=== PATIENT | female | born 1960 | race Caucasian/White ===

== ENCOUNTER → 2017-02-18 | Outpatient (CLI) | payer OTHER ==
[~2017-02-18] MED LIST: ACET325T38 PO; ALLP100T PO; ALPR.5T; ASP81CT; ASPI-999 PO; ATR20T PO; BACL10TA PO; CRS350T PO; CYCL10TA45; DESV100T PO; DESV50TA PO; DICY10CA26; DULO30CA; DULO60CA6 PO; HYDR-34 PO; HYDR-3720; HYDR1TAB PO; ISOS30TA74 PO; LD5PT TOP; LEVO500T69 PO; LOVASTATIN; METH500T35 PO; METO50TA7 PO; NAPR220T66 PO; NAPR220T76; NAPR220T76 PO; NF-ESOM40C; NF-ESOM40C PO; NITR0.4T SL; NITR0.4T39 SL; OMEP20TA7 PO; PIROXICAM; PRAV20TA3 PO; PRAV40TA2 PO; PREG100C PO; PREG75CA PO; QTP100T PO; QUET100T; QUET400T3 PO; TMZP15C; TRAM100T; TRM50T; TRM50T PO; [UNRECOGNIZED DRUG - REMARK]; lyrica; melatonin; tylenol #3
--- NOTE | 2017-02-18 18:37 | Diagnostic Imaging Report ---
EXAMINATION: Magnetic resonance imaging of the right knee without intravenous contrast. DATE: February 18, 2017. COMPARISON: Right knee radiographs December 08, 2013. MRI right knee January 29, 2011. INDICATION: 56-year-old female, injury two years ago with persistent right knee pain. TECHNIQUE: Multiplanar, multisequence non contrast enhanced MR imaging was accomplished. FINDINGS: MENISCI: There is an oblique undersurface tear involving the body and posterior horn of the medial meniscus. The medial meniscus on prior comparison MRI of January 29, 2011 did not meet specific MRI criteria for tear as it does currently. There is a longitudinal horizontal type tear involving the body and posterior horn of the lateral meniscus which is unchanged since comparison MRI. LIGAMENTS AND TENDONS: The anterior and posterior cruciate ligaments are intact. The medial collateral ligament is intact. The iliotibial band, mid third lateral capsular ligament, fibular collateral ligament, biceps femoris tendon and conjoined tendon are intact. The quadriceps tendon and patella ligament are intact. JOINT: The articular cartilage surfaces are intact. There is no knee joint effusion, prominent synovitis, or intra-articular body. BONE: There are patchy areas of T2 hyperintense signal in the marrow of the distal femoral metadiaphysis as well as the proximal tibial epiphysis and metaphysis. There is no identified fracture line. There are no pathognomonic signal changes of avascular necrosis. These foci of hyperintense marrow signal most likely relate to prominent areas of red marrow. BURSAE AND SOFT TISSUES: There is no De La Fuente's cyst. There is nonspecific prepatellar subcutaneous edema. The additional soft tissues are unremarkable. IMPRESSION: 1. Oblique undersurface tear involving the body and posterior horn of the medial meniscus. 2. Unchanged longitudinal horizontal tear involving the body and posterior horn of the lateral meniscus. 3. Intact anterior and posterior cruciate ligaments. 4. Areas of patchy hyperintense marrow signal most likely relates to prominent red marrow. No acute fracture, bone contusion, or evidence of osteonecrosis. 5. Intact articular cartilage. No knee joint effusion, prominent synovitis, or intra-articular body. Dictated by: Dictated on workstation # [id number]
== END ==
LOC: RAD 17:29
PROVIDERS: ATTEND Nurse Practitioner
DX: S83.281A Other tear of lateral meniscus, current injury, right knee, initial encounter (principal); S83.241A Other tear of medial meniscus, current injury, right knee, initial encounter; X58.XXXA Exposure to other specified factors, initial encounter; Y99.8 Other external cause status
CPT/HCPCS: 73721

== ENCOUNTER → 2017-10-07 | Outpatient (CLI) | payer OTHER ==
--- NOTE | 2017-10-07 10:00 | Diagnostic Imaging Report ---
Three views of the lumbar spine. INDICATION: Back pain. History of old injury. Comparison lumbar spine radiograph on 07/07/2012. FINDINGS: There is a 30% compression fracture of L1 vertebral body of indeterminate age. The alignment of the posterior spinal line is satisfactory. There is moderate disc height loss at L5-S1 level with sclerotic degenerative changes. Mild osteophytes formation at the anterior aspect of the T12/L1 and L3/L4 levels seen. No posterior osteophytes are identified. Mild degenerative changes of SI joints seen. Nonspecific sclerotic lesions in the right iliac bone similar to 2012 are probably related to bony islands. IMPRESSION: Age-indeterminate 30% compression fracture of L1 vertebral body, new from 2012 exam. If the patient had recent injury or is tender at the upper lumbar spine area, then further evaluation with MRI of the lumbar spine to verify if this is acute is recommended. Please fax report to ordering physician and document. Dictated by: Dictated on workstation # [id number]
== END ==
LOC: RAD 08:48
PROVIDERS: ATTEND Surgery
DX: M54.9 Dorsalgia, unspecified (principal); Z87.828 Personal history of other (healed) physical injury and trauma
CPT/HCPCS: 72100

== ENCOUNTER → 2018-09-07 | Outpatient (CLI) | payer MEDICAID ==
--- NOTE | 2018-09-07 13:56 | Diagnostic Imaging Report ---
PROCEDURE: CT neck soft tissue without contrast. TECHNIQUE: Multiple contiguous axial images were obtained through the neck without the use of intravenous contrast. INDICATION: Left vocal cord mass. COMPARISON: None. FINDINGS: There is asymmetric fullness of the left true vocal cord in comparison to the right. This extends inferiorly along the anterior margin of the left vocal cord without definitely crossing the midline. No erosive changes are seen in the arytenoids or cricoid. No cervical lymphadenopathy or other mass is identified on this noncontrast exam. No fluid collections are seen in the neck. The floor of the mouth, tongue base and epiglottis are unremarkable. No lesions are seen in the thyroid or major salivary glands. Mild scarring in the lung apices. No acute findings in the cervical spine. The skull base and visualized paranasal sinuses and mastoids are unremarkable. IMPRESSION: Asymmetric fullness of the left true vocal cord extending inferiorly along the cord anteriorly suspicious for a mass on this noncontrast exam. This does not appear to cross the midline. No cervical lymphadenopathy or other masses are identified. Dictated by: Dictated on workstation # [id number]
== END ==
LOC: RAD 12:50
PROVIDERS: ATTEND Otolaryngology Otolaryngology/Facial Plastic Surgery
DX: J38.3 Other diseases of vocal cords (principal)
CPT/HCPCS: 70490

== ENCOUNTER 2018-11-11 05:41 | Outpatient (CLI) | payer MEDICAID ==
[~2018-11-11] VITALS: Ht 170.2 cm; Wt 76.2 kg
[2018-11-11] MEDS ORDERED: GABA250S PO (13:38)
[2018-11-11] MEDS ORDERED: LEVO125T PO (13:38)
[2018-11-11] MEDS ORDERED: SERT50TA2 PO (13:38)
[2018-11-11] MEDS ORDERED: QUET300T2 PO (13:38)
[2018-11-11] MEDS ORDERED: QUET200T PO (13:38)
[2018-11-11] MEDS ORDERED: TRAM50TA2 PO (13:38)
[2018-11-11] MEDS ORDERED: CALC200T2 PO (13:38)
[2018-11-11] MEDS ORDERED: PRAV40TA2 PO (13:38)
== END 2018-11-11 13:47 | disposition home or self-care (01) ==
LOC: PREOP 05:41
PROVIDERS: ATTEND Surgery
DX: Z01.818 Encounter for other preprocedural examination (principal)

== ENCOUNTER 2018-11-13 11:24 | Day surgery (SDC) | payer MEDICAID ==
[~2018-11-13 11:24] MED LIST changes: +CALC200T2 PO; +GABA250S PO; +LEVO125T PO; +QUET200T PO; +QUET300T2 PO; +SERT50TA2 PO; +TRAM50TA2 PO
--- OUTSIDE RECORDS SUMMARY | 2018-11-13 11:29 | XMS REPORT | Encounter Summary ---
Author Author [facility] Organization [facility] Address Unknown Phone Unavailable Care Team Providers Care Missile And Missile Checkout Technician Name Role Phone Kelly Olivier RN Unavailable Unavailable Chris Ohara MD PCP Reason for Visit * Reason Comments Other Encounter Details Care Team Description Date Type Department Shreyas Snyder MD [address] [place] [address] Other 11/10/2018 Telephone [facility] - [facility] Level 3C [address] [place] [address] Social History Date Tobacco Use Types Packs/Day Years Used Current Every Day Smoker 0.5 Smokeless Tobacco: Never Used Alcohol Use Drinks/Week oz/Week Comments Yes rarely Sex Assigned at Date Recorded Not on file Industry Job Start Date Occupation Not on file Not on file Not on file Travel End Travel History Travel Start No recent travel history available. as of this encounter Functional Status Date of Assessment Functional Status Response 10/05/2018 Does the patient have a hearing impairment: Yes as of this encounter Miscellaneous Notes * Telephone Encounter - Faustina Watts, GUCCI - 11/11/2018 12:25 PM WEB CONTENT SPECIALIST Spoke with Dr. De La Fuente's office. Informed them that per Twyla leak needs to stop on its own. Plan to see pt back in one month with an esophagram. Faustina CONTENT SPECIALIST * Telephone Encounter - Una Saunders - 11/10/2018 1:[address] CONTENT SPECIAL[address]. De La Fuente's office calling with medical related questions: 1)Would Dr. Snyder like another swallow motions test for the patient? 2) Does the leak need to be stopped? CONTENT SPECIALIST in this encounter Plan of Treatment Not on fileas of this encounter Visit Diagnoses Not on filein this encounter
--- OUTSIDE RECORDS SUMMARY | 2018-11-13 11:29 | XMS REPORT | Encounter Summary ---
Author Author [facility] Organization [facility] Address Unknown Phone Unavailable Care Team Providers Care Analytics Senior Manager Name Role Phone Kelly Olivier RN Unavailable Unavailable Chris Ohara MD PCP Reason for Visit * Reason Comments Navigation Follow Up Encounter Details Care Team Description Date Type Department Shreyas Snyder MD [address] [place] [address] Navigation Follow Up 10/30/2018 Telephone [facility] [address] [address] Social History Date Tobacco Use Types Packs/Day [...] encounter Miscellaneous Notes * Telephone Encounter - Radha Avitia RN - 10/30/2018 3:38 PM CERTIFIED MASSAGE THERAPIST 10/29/18 Left message for du Membreno for rad/onc at [facility] in [place], [place] requesting a consult 10/30/18 Called [facility] to schedule rad/onc consult and NN gone for the day. Faxed records to her at [phone] This information was given to pt's significant other and caregiver, Ernie Gallegos per phone call. IFIED MASSAGE THERAPIST in this encounter Plan of Treatment Not on fileas of this encounter Visit Diagnoses Not on filein this encounter
--- OUTSIDE RECORDS SUMMARY | 2018-11-13 11:29 | XMS REPORT | Encounter Summary ---
Author Author [facility] Organization [facility] Address Unknown Phone Unavailable Care Team Providers Care Solder Technician Name Role Phone Kelly Olivier RN Unavailable Unavailable Chris Ohara MD PCP Encounter Details Care Team Description Date Type Department Kathy Kim, AUTOCLAVE OPERATOR-EXPORT FREIGHT CLERK [address] [place] [address] 10/22/2018 Orders Only [facility] - [facility]NT [facility] Level [address]C [address] [place] [address] Social History Date Tobacco Use [...] hearing impairment: Yes as of this encounter Plan of Treatment Not on fileas of this encounter Visit Diagnoses Not on filein this encounter
--- OUTSIDE RECORDS SUMMARY | 2018-11-13 11:29 | XMS REPORT | Encounter Summary ---
Author Author [facility] Organization [facility] Address Unknown Phone Unavailable Care Team Providers Care Radial Drill Operator For Plastic Name Role Phone Kelly Olivier RN Unavailable Unavailable Chris Ohara MD PCP Reason for Referral * Radiology Services (Routine) Referred By Contact Referred To Contact Status Reason Specialty Diagnoses / Procedures Twyla Quiles PA-C [address] [place] [address] [place] [address] No Auth Needed Radiology Diagnoses H/O laryngectomy Laryngeal cancer (HCC) P rocedures ESOPHAGRAM * Radiology Services (Routine) Referred By Contact Referred To Contact Status Reason Specialty Diagnoses / Procedures Twyla Quiles PA-C [address] [place] [address] [address] [phone] No Auth Needed Radiology Diagnoses H/O laryngectomy Laryngeal cancer (HCC) P rocedures ESOPHAGRAM Reason for Visit * Radiology Services (Routine) Referred By Contact Referred To Contact Status Reason Specialty Diagnoses / Procedures Twyla Quiles PA-C [address] [place] [address] [place] [address] No Auth Needed Radiology Diagnoses H/O laryngectomy Laryngeal cancer (HCC) P rocedures ESOPHAGRAM Encounter Details Care Team Description Date Type Department Twyla Quiles PA-C [address] [place] [address] [phone] 11/05/2018 Hospital [facility] Encounter Hospital Radiology [facility] [address] [place] [address] Social History Date Tobacco Use Types Packs/Day [...] hearing impairment: Yes as of this encounter Medications at Time of Discharge Start Date End Date Medication Sig Dispensed Refills 10/22/2018 acetaminophen (TYLENOL) 20.3 mL by 400 mL 0 160 mg/5 mL oral solution Per NG tube route every 4 hours as needed. 11/05/2018 antiseptic mucus solvent 6 mL by 120 Bottle 3 120 mL Tracheal Tube route four times daily. 10/22/2018 calcium citrate three tablets 74 tablet 0 (CALCITRATE) 950 mg tab by Per NG tube route twice daily. Please take the follow calcium taper 2 TAB PO BID x 1 week THEN 2 tab PO Qday x 1 week THEN OFF 10/22/2018 docusate (COLACE) 50 mg/5 10 mL by Per 500 mL 0 mL oral solution NG tube route twice daily. 11/05/[address] (CYMBALTA) Take one 30 capsule 5 60 mg capsule capsule by mouth daily. 10/23/2018 ergocalciferol (vitamin Take 6.25 mL 60 mL 1 D-2) (CALCIFEROL) 8,000 via feeding unit/mL oral solution tube three times weekly. 11/05/2018 gabapentin (NEURONTIN) 6 mL by Per 470 mL 12 250 mg/5 mL oral solution NG tube route every 8 hours. 11/05/2018 levothyroxine (SYNTHROID) Take one 30 tablet 3 125 mcg tablet tablet by Per NG tube route daily 30 minutes before breakfast. nitroglycerin (NITROSTAT) Place 0.4 mg 0 0.4 mg SL tablet under tongue every 5 minutes as needed. 10/22/2018 pravastatin (PRAVACHOL) Take one 90 capsule 3 40 mg tablet tablet via feeding tube daily. 10/22/2018 QUEtiapine (SEROQUEL) 200 Take one 0 mg tablet tablet via feeding tube at bedtime daily. Take with 300 mg for a total of 500 mg daily 10/22/2018 QUEtiapine (SEROQUEL) 300 Take one 0 mg tablet tablet via feeding tube at bedtime daily. Take with 200 mg tablet for a total of 500 mg daily 10/22/2018 sodium chloride (SEA Apply one 104 mL 0 MIST) 0.65 % nasal spray spray to two sprays to each nostril as directed every 2 hours. 11/05/2018 traMADol (ULTRAM) 50 mg one tablet by 60 tablet 0 tablet Per NG tube route every 12 hours. 10/22/2018 venlafaxine (EFFEXOR) Take one 60 tablet 1 37.5 mg tablet tablet by Per NG tube route twice daily with meals. Take with food. as of this encounter Plan of Treatment Not on fileas of this encounter Procedures Comments Procedure Name Priority Date/Time Associated Diagnosis ESOPHAGRAM Routine 11/05/2018 H/O laryngectomy 1:45 PM PROGRAM MANAGEMENT MANAGER Laryngeal cancer (HCC) in this encounter Results * ESOPHAGRAM (11/05/2018 1:45 PM PROGRAM MANAGEMENT MANAGER) Impressions Performed At Persistent small linear collection of contrast within the anterior neck [facility] consistent with a small residual leak following recent laryngectomy. By my electronic signature, I attest that I have personally reviewed the images for this examination and formulated the interpretations and opinions expressed in this report Finalized by Bradley Torres D.O. on 11/05/2018 2:31 PM. Dictated by Faustino Beal M.D. on 11/05/2018 1:44 PM. Narrative Performed At LIMITED ESOPHAGRAM [facility] CLINICAL HISTORY: 58-year-old female, leak check, status post total laryngectomy. TECHNIQUE: An explanation of the exam was provided to the patient and brief history was obtained. After obtaining a preliminary radiograph, the patient ingested Gastroview to distend the esophageal lumen. Single-contrast spot films of the esophagus were obtained and esophageal motility was evaluated fluoroscopically. The patient tolerated the procedure well and left the department in stable condition. TOTAL FLUOROSCOPY TIME: 120 seconds Comparison: Esophagram 10/21/2018 FINDINGS: The preliminary radiograph demonstrates a gastric tube with the tip overlying the gastric body. There are surgical clips overlying the lower neck. The swallowing mechanism is intact and esophageal motility is unremarkable. Surgical clips overlie the anterior neck. Persistence of the previously noted small linear anterior collection of contrast within the anterior neck cephalad to the tracheostomy, best demonstrated on series 5 image 3. Contrast flows from the esophagus into the stomach without obstruction. Procedure Note Interface, Radiant Results - 11/05/2018 2:35 PM PROGRAM MANAGEMENT MANAGER LIMITED ESOPHAGRAM CLINICAL HISTORY: 58-year-old female, leak check, status post total laryngectomy. TECHNIQUE: An explanation of the exam was provided to the patient and brief history was obtained. After obtaining a preliminary radiograph, the patient ingested Gastroview to distend the esophageal lumen. Single-contrast spot films of the esophagus were obtained and esophageal motility was evaluated fluoroscopically. The patient tolerated the procedure well and left the department in stable condition. TOTAL FLUOROSCOPY TIME: 120 seconds Comparison: Esophagram 10/21/2018 FINDINGS: The preliminary radiograph demonstrates a gastric tube with the tip overlying the gastric body. There are surgical clips overlying the lower neck. The swallowing mechanism is intact and esophageal motility is unremarkable. Surgical clips overlie the anterior neck. Persistence of the previously noted small linear anterior collection of contrast within the anterior neck cephalad to the tracheostomy, best demonstrated on series 5 image 3. Contrast flows from the esophagus into the stomach without obstruction. IMPRESSION Persistent small linear collection of contrast within the anterior neck consistent with a small residual leak following recent laryngectomy. By my electronic signature, I attest that I have personally reviewed the images for this examination and formulated the interpretations and opinions expressed in this report Finalized by Bradley Torres D.O. on 11/05/2018 2:31 PM. Dictated by Faustino Beal M.D. on 11/05/2018 1:44 PM. Performing Organization Address City/State/Zipcode Phone Number [facility] in this encounter Visit Diagnoses Diagnosis H/O laryngectomy Other postprocedural status Laryngeal cancer (HCC) Malignant neoplasm of larynx, unspecified site in this encounter Administered Medications Action Date Dose Rate Site Medication Order MAR Action 11/05/2018 2:00 PM PROGRAM MANAGEMENT MANAGER 100 mL iohexol (OMNIPAQUE-300) 300 mg/mL Given injection 100 mL 100 mL, Oral, ONCE, 1 dose, Alexandra 11/05/18 at 1400, NOTE: This is a HIGH ALERT Medication., in this encounter
--- OUTSIDE RECORDS SUMMARY | 2018-11-13 11:29 | XMS REPORT | Encounter Summary ---
Author Author [facility] Organization [facility] Address Unknown Phone Unavailable Care Team Providers Care Manager Home Improvement Name Role Phone Kelly Olivier RN Unavailable Unavailable Chris Ohara MD PCP Reason for Visit * Reason Comments Other Encounter Details Care Team Description Date Type Department Shreyas Snyder MD [address] [place] [address] Other 11/04/2018 Telephone [facility] - ENT [facility] Level [address]C [address] [place] [address] Social History Date Tobacco Use [...] Miscellaneous Notes * Telephone Encounter - Faustina Watts RN - 11/05/2018 1:50 PM CONCILIATOR Returned pt's call. NA. Pt to CB if assistance still needed. ILIATOR * Telephone Encounter - Belinda Weldon - 11/04/2018 9:01 AM CONCILIATOR Calling regarding PT pharmacy in [place] will not refill any of PT medications that she went home with after surgery , needs to see about refill from [facility]o appt 11/05/18 with blanca ILIATOR in this encounter Plan of Treatment Not on fileas of this encounter Visit Diagnoses Not on filein this encounter
--- OUTSIDE RECORDS SUMMARY | 2018-11-13 11:29 | XMS REPORT | Clinical Summary ---
Author Author [facility] Organization [facility] Address Unknown Phone Unavailable Care Team Providers Care Loan Expeditor Name Role Phone Kelly Olivier RN Unavailable Unavailable Chris Ohara MD PCP Source Comments Some departments are not documenting in the electronic medical record. If you do not see the information that you expected, contact Release of Information in the Health Information Management department at [phone] for further assistance in locating additional records.[facility] Allergies Comments Active Allergy Reactions Severity Noted Date Iodine NAUSEA AND 01/10/2011 VOMITING Liver ANAPHYLAXIS High 10/05/2018 Simvastatin HIVES 01/10/2011 Medications End Date Status Medication Sig Dispensed Refills Start Date Active nitroglycerin (NITROSTAT) Place 0.4 mg 0 0.4 mg SL tablet under tongue every 5 minutes as needed. Active acetaminophen (TYLENOL) 20.3 mL by 400 mL 0 160 mg/5 mL oral solution Per NG tube 8 route every 4 hours as needed. Active pravastatin (PRAVACHOL) Take one 90 capsule 3 40 mg tablet tablet via 8 feeding tube daily. Active QUEtiapine (SEROQUEL) 200 Take one 0 201 mg tablet tablet via 8 feeding tube at bedtime daily. Take with 300 mg for a total of 500 mg daily Active QUEtiapine (SEROQUEL) 300 Take one 0 201 mg tablet tablet via 8 feeding tube at bedtime daily. Take with 200 mg tablet for a total of 500 mg daily Active calcium citrate three tablets 74 tablet 0 (CALCITRATE) 950 mg tab by Per NG 8 tube route twice daily. Please take the follow calcium taper 2 TAB PO BID x 1 week THEN 2 tab PO Qday x 1 week THEN OFF Active venlafaxine (EFFEXOR) Take one 60 tablet 1 37.5 mg tablet tablet by Per 8 NG tube route twice daily with meals. Take with food. Active ergocalciferol (vitamin Take 6.25 mL 60 mL 1 D-2) (CALCIFEROL) 8,000 via feeding 8 unit/mL oral solution tube three times weekly. Active sodium chloride (SEA Apply one 104 mL 0 MIST) 0.65 % nasal spray spray to two 8 sprays to each nostril as directed every 2 hours. Active docusate (COLACE) 50 mg/5 10 mL by Per 500 mL 0 mL oral solution NG tube route 8 twice daily. Active duloxetine DR (CYMBALTA) Take one 30 capsule 5 60 mg capsule capsule by 9 mouth daily. Active traMADol (ULTRAM) 50 mg one tablet by 60 tablet 0 tablet Per NG tube 9 route every 12 hours. Active gabapentin (NEURONTIN) 6 mL by Per 470 mL 250 mg/5 mL oral solution NG tube route 9 every 8 hours. Active antiseptic mucus solvent 6 mL by 120 Bottle 3 120 mL Tracheal Tube 9 route four times daily. Active levothyroxine (SYNTHROID) Take one 30 tablet 3 125 mcg tablet tablet by Per 9 NG tube route daily 30 minutes before breakfast. 10/22/2018 Discontinued pravastatin (PRAVACHOL) Take 40 mg by 0 40 mg tablet mouth daily. 10/22/2018 Discontinued QUEtiapine (SEROQUEL) 200 Take 200 mg 0 mg tablet by mouth at bedtime daily. Take with 300 mg for a total of 500 mg daily 10/22/2018 Discontinued varenicline (CHANTIX Take 1 mg by 0 CONTINUING MONTH BOX) 1 mouth daily. mg tabletIndications: pt Take with 8 unsure the dosage oz of water and after a meal. 10/22/2018 Discontinued QUEtiapine (SEROQUEL) 300 Take 300 mg 0 mg tablet by mouth at bedtime daily. Take with 200 mg tablet for a total of 500 mg daily 10/22/2018 Discontinued ibuprofen (MOTRIN) 800 mg Take 1,600 mg 0 tablet by mouth every 12 hours as needed for Pain. Take with food. 10/22/2018 Discontinued desvenlafaxine succinate Take 75 mg by 0 25 mg Tb24 mouth daily. 11/05/2018 Discontinued levothyroxine (SYNTHROID) Take one 30 tablet 1 125 mcg tablet tablet by Per 8 NG tube route daily 30 minutes before breakfast. 11/05/2018 Discontinued gabapentin (NEURONTIN) 6 mL by Per 470 mL 12 250 mg/5 mL oral solution NG tube route 8 every 8 hours. 11/05/2018 Discontinued traMADol (ULTRAM) 50 mg Take one 40 tablet 0 tablet tablet to two 8 tablets by Per NG tube route every 4 hours as needed. 11/05/2018 Discontinued antiseptic mucus solvent 6 mL by 0 120 mL Tracheal Tube 8 route every 2 hours while awake. 11/05/2018 amoxicillin/K clavulanate Take 10.9 mL 300 mL 0 (AUGMENTIN) 400 mg/5 mL via feeding 8 oral suspension tube twice daily for 10 days. Take with food. Discard any remaining medication. Active Problems Problem Noted Date Larynx cancer 10/29/2018 S/P laryngectomy 10/29/2018 Hypocalcemia 10/19/2018 Anxiety 10/08/2018 Depression 10/08/2018 Tobacco abuse 10/06/2018 Asthma 10/06/2018 Dysphagia 10/06/2018 Mass of larynx 10/05/2018 Shortness of breath 10/05/2018 Pharyngeal dysphagia 10/05/2018 Laryngeal mass 10/05/2018 Encounters Care Team Description Date Type Specialty Pauline Pandey Procedure (Esophagram ) 11/12/2018 Telephone Otolaryngology Kalli Snyder MD Larynx cancer (HCC) (Primary Dx) 11/12/2018 Orders Only Otolaryngology Kalli Snyder MD Other 11/10/2018 Telephone Otolaryngology Twyla Quiles PA-C Larynx cancer (HCC) (Primary Dx); Tobacco abuse; S/P laryngectomy; Depression, unspecified depression type 11/05/2018 Office Visit Otolaryngology Twyla Quiles PA-C 11/05/2018 Hospital Radiology Encounter Kalli Snyder MD Other 11/04/2018 Telephone Otolaryngology Kalli Snyder MD Appointment 11/02/2018 Telephone Otolaryngology Kalli Snyder MD Navigation Follow Up 10/30/2018 Telephone Oncology Jacinto Theodore PA-C Larynx cancer (HCC) (Primary Dx); S/P laryngectomy 10/29/2018 Office Visit Otolaryngology Twyla Quiles PA-C H/O laryngectomy (Primary Dx); Laryngeal cancer (HCC) 10/22/2018 Orders Only Otolaryngology Kathy Kim, [employer] TR[employer]MER S/P laryngectomy (Primary Dx) 10/22/2018 Orders Only Otolaryngology Kathy Kim APRN-BUG TRIMMER 10/22/2018 Orders Only Otolaryngology Tiffanie Wall CRNA 10/19/2018 Anesthesia Event Mely Norris DDS EXTRACTION TEETH 2,3,4,5,6,8,9,10,11,12,13,14,15,18,19,20 ,21,22,23,,24,25,26,27,28,29,30,31, 10/19/2018 Surgery Mely Norris DDS 10/16/2018 Prep for Case Mely Norris DDS 10/16/2018 Prep for Case Oncology Mely Norris DDS 10/16/2018 Prep for Case Kalli Snyder MD PRIMARY LARYNGECTOMY TOTAL WITH RADICAL NECK DISSECTION [ 58720 (CPT)] 10/13/2018 Surgery Vinicius Lee MD 10/13/2018 Anesthesia Event Kayli Wyatt MD 10/07/2018 Prep for Case Kayli Wyatt MD 10/07/2018 Prep for Case Kalli Snyder MD TRACHEOSTOMY PLANNED AWAKE TRACHEOSTOMY 10/05/2018 Surgery Faustino Prince MD 10/05/2018 Anesthesia Event Kalli Snyder MD Laryngeal mass 10/05/2018 Hospital - Encounter 10/22/2018 Kalli Snyder MD Mass of larynx; Shortness of breath; Pharyngeal dysphagia 10/05/2018 Office Visit Otolaryngology Kalli Snyder MD Navigation Assessment 09/11/2018 Telephone Oncology 09/07/2018 Hospital Radiology Encounter from Last 3 Months Social History Date Tobacco Use Types Packs/Day Years Used Current Every Day Smoker 0.5 Smokeless Tobacco: Never Used Alcohol Use Drinks/Week oz/Week Comments Yes rarely Sex Assigned at Date Recorded Not on file Industry Job Start Date Occupation Not on file Not on file Not on file Travel End Travel History Travel Start No recent travel history available. Last Filed Vital Signs Time Taken Vital Sign Reading 11/05/2018 1:59 PM PATIENT SUPPORT PARTNER Blood Pressure 91/66 11/05/2018 1:59 PM PATIENT SUPPORT PARTNER Pulse 125 10/22/2018 5:50 AM PATIENT SUPPORT PARTNER Temperature 36.8 C (98.2 F) - Respiratory Rate - 10/22/2018 6:44 AM PATIENT SUPPORT PARTNER Oxygen Saturation 95% - Inhaled Oxygen - Concentration 11/05/2018 1:59 PM PATIENT SUPPORT PARTNER Weight 76.2 kg (168 lb) 11/05/2018 1:59 PM PATIENT SUPPORT PARTNER Height 170.2 cm (5' 7") 11/05/2018 1:59 PM PATIENT SUPPORT PARTNER Body Mass Index 26.31 Plan of Treatment Health Maintenance Due Date Last Done Comments HEPATITIS C SCREENING 1959 PHYSICAL (COMPREHENSIVE) 1966 EXAM HIV SCREENING 1974 DTAP/TDAP VACCINES (1 - 1977 Tdap) CERVICAL CANCER SCREENING 1989 BREAST CANCER SCREENING 1999 COLORECTAL CANCER 2009 SCREENING SHINGLES RECOMBINANT 2009 VACCINE (1 of 2) INFLUENZA VACCINE 05/27/2018 Procedures Comments Procedure Name Priority Date/Time Associated Diagnosis ESOPHAGRAM Routine 11/05/2018 H/O laryngectomy 1:45 PM PATIENT SUPPORT PARTNER Laryngeal cancer (HCC) CBC Routine 10/22/2018 5:40 AM PATIENT SUPPORT PARTNER IONIZED CALCIUM Routine 10/22/2018 5:40 AM PATIENT SUPPORT PARTNER CALCIUM Routine 10/22/2018 5:40 AM PATIENT SUPPORT PARTNER PARATHYROID HORMONE Routine 10/21/2018 10:22 AM PATIENT SUPPORT PARTNER IONIZED CALCIUM Routine 10/21/2018 10:22 AM PATIENT SUPPORT PARTNER PHOSPHORUS Routine 10/21/2018 10:22 AM PATIENT SUPPORT PARTNER MAGNESIUM Routine 10/21/2018 10:22 AM PATIENT SUPPORT PARTNER BASIC METABOLIC PANEL Routine 10/21/2018 10:22 AM PATIENT SUPPORT PARTNER ESOPHAGRAM Routine 10/21/2018 9:21 AM PATIENT SUPPORT PARTNER IONIZED CALCIUM STAT 10/20/2018 8:23 AM PATIENT SUPPORT PARTNER CONSULT IV THERAPY TEAM Routine 10/20/2018 7:38 AM PATIENT SUPPORT PARTNER PHOSPHORUS Routine 10/20/2018 6:16 AM PATIENT SUPPORT PARTNER MAGNESIUM Routine 10/20/2018 6:16 AM PATIENT SUPPORT PARTNER BASIC METABOLIC PANEL Routine 10/20/2018 6:16 AM PATIENT SUPPORT PARTNER CBC Routine 10/20/2018 6:16 AM PATIENT SUPPORT PARTNER CONSULT IV THERAPY TEAM Routine 10/19/2018 10:17 AM PATIENT SUPPORT PARTNER EXTRACTION TOOTH 10/19/2018 10:08 AM PATIENT SUPPORT PARTNER PHOSPHORUS Routine 10/19/2018 6:18 AM PATIENT SUPPORT PARTNER MAGNESIUM Routine 10/19/2018 6:18 AM PATIENT SUPPORT PARTNER BASIC METABOLIC PANEL Routine 10/19/2018 6:18 AM PATIENT SUPPORT PARTNER CBC Routine 10/19/2018 6:18 AM PATIENT SUPPORT PARTNER IONIZED CALCIUM STAT 10/19/2018 6:18 AM PATIENT SUPPORT PARTNER IONIZED CALCIUM STAT 10/18/2018 6:00 PM PATIENT SUPPORT PARTNER CALCIUM STAT 10/18/2018 6:00 PM PATIENT SUPPORT PARTNER IONIZED CALCIUM STAT 10/18/2018 6:10 AM PATIENT SUPPORT PARTNER PHOSPHORUS Routine 10/18/2018 6:10 AM PATIENT SUPPORT PARTNER MAGNESIUM Routine 10/18/2018 6:10 AM PATIENT SUPPORT PARTNER BASIC METABOLIC PANEL Routine 10/18/2018 6:10 AM PATIENT SUPPORT PARTNER CBC Routine 10/18/2018 6:10 AM PATIENT SUPPORT PARTNER IONIZED CALCIUM STAT 10/17/2018 10:20 PM PATIENT SUPPORT PARTNER CALCIUM STAT 10/17/2018 10:20 PM PATIENT SUPPORT PARTNER IONIZED CALCIUM STAT 10/17/2018 6:00 PM PATIENT SUPPORT PARTNER CALCIUM STAT 10/17/2018 6:00 PM PATIENT SUPPORT PARTNER PARATHYROID HORMONE Add on 10/17/2018 6:01 AM PATIENT SUPPORT PARTNER ALBUMIN Routine 10/17/2018 6:01 AM PATIENT SUPPORT PARTNER PHOSPHORUS Routine 10/17/2018 6:01 AM PATIENT SUPPORT PARTNER MAGNESIUM Routine 10/17/2018 6:01 AM PATIENT SUPPORT PARTNER BASIC METABOLIC PANEL Routine 10/17/2018 6:01 AM PATIENT SUPPORT PARTNER CBC Routine 10/17/2018 6:01 AM PATIENT SUPPORT PARTNER CALCIUM STAT 10/17/2018 6:00 AM PATIENT SUPPORT PARTNER IONIZED CALCIUM STAT 10/17/2018 5:59 AM PATIENT SUPPORT PARTNER IONIZED CALCIUM STAT 10/16/2018 10:00 PM PATIENT SUPPORT PARTNER CALCIUM STAT 10/16/2018 10:00 PM PATIENT SUPPORT PARTNER CALCIUM STAT 10/16/2018 2:18 PM PATIENT SUPPORT PARTNER IONIZED CALCIUM STAT 10/16/2018 2:18 PM PATIENT SUPPORT PARTNER PANOREX EXAM Routine 10/16/2018 11:25 AM PATIENT SUPPORT PARTNER CONSULT IV THERAPY TEAM Routine 10/16/2018 8:56 AM PATIENT SUPPORT PARTNER IONIZED CALCIUM Add on 10/16/2018 6:07 AM PATIENT SUPPORT PARTNER PHOSPHORUS Routine 10/16/2018 6:07 AM PATIENT SUPPORT PARTNER MAGNESIUM Routine 10/16/2018 6:07 AM PATIENT SUPPORT PARTNER BASIC METABOLIC PANEL Routine 10/16/2018 6:07 AM PATIENT SUPPORT PARTNER CBC Routine 10/16/2018 6:07 AM PATIENT SUPPORT PARTNER CALCIUM STAT 10/15/2018 8:24 PM PATIENT SUPPORT PARTNER IONIZED CALCIUM STAT 10/15/2018 8:24 PM PATIENT SUPPORT PARTNER 25-OH VITAMIN D (D2 + D3) Specimen 10/15/2018 in Lab 8:24 PM PATIENT SUPPORT PARTNER CONSULT IV THERAPY TEAM Routine 10/15/2018 7:35 PM PATIENT SUPPORT PARTNER IONIZED CALCIUM STAT 10/15/2018 11:08 AM PATIENT SUPPORT PARTNER CALCIUM Routine 10/15/2018 11:08 AM PATIENT SUPPORT PARTNER PARATHYROID HORMONE Add on 10/15/2018 3:15 AM PATIENT SUPPORT PARTNER IONIZED CALCIUM Routine 10/15/2018 3:15 AM PATIENT SUPPORT PARTNER PHOSPHORUS Routine 10/15/2018 3:15 AM PATIENT SUPPORT PARTNER MAGNESIUM Routine 10/15/2018 3:15 AM PATIENT SUPPORT PARTNER BASIC METABOLIC PANEL Routine 10/15/2018 3:15 AM PATIENT SUPPORT PARTNER CBC Routine 10/15/2018 3:15 AM PATIENT SUPPORT PARTNER CALCIUM Specimen 10/14/2018 in Lab 10:53 PM PATIENT SUPPORT PARTNER IONIZED CALCIUM 10/14/2018 10:45 PM PATIENT SUPPORT PARTNER CONSULT IV THERAPY TEAM Routine 10/14/2018 10:32 PM PATIENT SUPPORT PARTNER CALCIUM Routine 10/14/2018 6:15 PM PATIENT SUPPORT PARTNER IONIZED CALCIUM STAT 10/14/2018 6:15 PM PATIENT SUPPORT PARTNER CALCIUM Routine 10/14/2018 3:38 PM PATIENT SUPPORT PARTNER CALCIUM STAT 10/14/2018 10:30 AM PATIENT SUPPORT PARTNER IONIZED CALCIUM STAT 10/14/2018 10:30 AM PATIENT SUPPORT PARTNER IONIZED CALCIUM STAT 10/14/2018 7:20 AM PATIENT SUPPORT PARTNER CONSULT IV THERAPY TEAM Routine 10/14/2018 6:34 AM PATIENT SUPPORT PARTNER PHOSPHORUS Routine 10/14/2018 5:47 AM PATIENT SUPPORT PARTNER MAGNESIUM Routine 10/14/2018 5:47 AM PATIENT SUPPORT PARTNER BASIC METABOLIC PANEL Routine 10/14/2018 5:47 AM PATIENT SUPPORT PARTNER CBC Routine 10/14/2018 5:47 AM PATIENT SUPPORT PARTNER CALCIUM Routine 10/13/2018 11:30 PM PATIENT SUPPORT PARTNER IONIZED CALCIUM STAT 10/13/2018 11:30 PM PATIENT SUPPORT PARTNER CONSULT IV THERAPY TEAM Routine 10/13/2018 10:57 PM PATIENT SUPPORT PARTNER ABDOMEN AP ONLY Routine 10/13/2018 3:15 PM PATIENT SUPPORT PARTNER PARATHYROID HORMONE STAT 10/13/2018 3:00 PM PATIENT SUPPORT PARTNER CALCIUM Routine 10/13/2018 3:00 PM PATIENT SUPPORT PARTNER IONIZED CALCIUM STAT 10/13/2018 3:00 PM PATIENT SUPPORT PARTNER SURGICAL PATHOLOGY 10/13/2018 12:12 PM PATIENT SUPPORT PARTNER BLOOD TYPE CONFIRMATION - STAT 10/13/2018 ORDER ONLY IF REQUESTED 8:35 AM PATIENT SUPPORT PARTNER BY LAB TYPE & CROSSMATCH STAT 10/13/2018 8:30 AM PATIENT SUPPORT PARTNER TISSUE TRANSFER MUSCLE/ 10/13/2018 Laryngeal mass MYOCUTANEOUS/ 8:00 AM PATIENT SUPPORT PARTNER Mass of larynx FASCIOCUTANEOUS FLAP WITH VASCULAR PEDICLE - HEAD/ NECK DIRECT LARYNGOSCOPY 10/13/2018 Laryngeal mass DIAGNOSTIC 8:00 AM PATIENT SUPPORT PARTNER Mass of larynx THYROIDECTOMY TOTAL 10/13/2018 Laryngeal mass 8:00 AM PATIENT SUPPORT PARTNER Mass of larynx CERVICAL LYMPHADENECTOMY 10/13/2018 Laryngeal mass 8:00 AM PATIENT SUPPORT PARTNER Mass of larynx LARYNGECTOMY TOTAL 10/13/2018 Laryngeal mass 8:00 AM PATIENT SUPPORT PARTNER Mass of larynx CONSULT IV THERAPY TEAM Routine 10/10/2018 8:14 AM PATIENT SUPPORT PARTNER 2-D + DOPPLER Routine 10/08/2018 ECHOCARDIOGRAM 11:14 AM PATIENT SUPPORT PARTNER ECG 12-LEAD Routine 10/07/2018 4:29 PM PATIENT SUPPORT PARTNER SWALLOW MOTION SERIES Routine 10/07/2018 8:48 AM PATIENT SUPPORT PARTNER NM PET SCAN TORSO Routine 10/06/2018 (SKULL-THIGHS) 1:[address] NECK W/CONTRAST Routine 10/06/2018 10:[address] CHEST W CONTRAST Routine 10/06/2018 10:14 AM PATIENT SUPPORT PARTNER POC GLUCOSE 10/06/2018 9:43 AM PATIENT SUPPORT PARTNER PHOSPHORUS Add on 10/06/2018 8:45 AM PATIENT SUPPORT PARTNER MAGNESIUM Add on 10/06/2018 8:45 AM PATIENT SUPPORT PARTNER BASIC METABOLIC PANEL Add on 10/06/2018 8:45 AM PATIENT SUPPORT PARTNER THYROID STIMULATING Routine 10/06/2018 HORMONE-TSH 8:45 AM PATIENT SUPPORT PARTNER PREALBUMIN Routine 10/06/2018 8:45 AM PATIENT SUPPORT PARTNER ALBUMIN Routine 10/06/2018 8:45 AM PATIENT SUPPORT PARTNER BASIC METABOLIC PANEL STAT 10/05/2018 4:41 PM PATIENT SUPPORT PARTNER CBC STAT 10/05/2018 4:41 PM PATIENT SUPPORT PARTNER SURGICAL PATHOLOGY 10/05/2018 4:02 PM PATIENT SUPPORT PARTNER DIRECT MICROLARYNGOSCOPY 10/05/2018 Laryngeal mass WITH BIOPSY 3:50 PM PATIENT SUPPORT PARTNER TRACHEOSTOMY PLANNED 10/05/2018 Laryngeal mass 3:50 PM PATIENT SUPPORT PARTNER CONSULT IV THERAPY TEAM Routine 10/05/2018 2:08 PM PATIENT SUPPORT PARTNER TELEMETRY STRIPS-SCAN 10/05/2018 12:00 AM PATIENT SUPPORT PARTNER EXERCISE OXIMETRY-SCAN 10/05/2018 12:00 AM PATIENT SUPPORT PARTNER ECG-SCAN 10/05/2018 12:[address] NECK EXTERNAL IMAGING Routine 09/07/2018 Diagnosis unknown 12:00 AM PATIENT SUPPORT PARTNER from Last 3 Months Results * ESOPHAGRAM (11/05/2018 1:45 PM PATIENT SUPPORT PARTNER) Only the most recent of 2 results within the time period is included. Impressions Performed At Persistent small linear collection [...] Interface, Radiant Results - 11/05/2018 2:35 PM PATIENT SUPPORT PARTNER LIMITED ESOPHAGRAM CLINICAL HISTORY: 58-year-old female, leak [...] on 11/05/2018 1:44 PM. Performing Organization Address [facility] Phone Number RAD RESULTS * CBC (10/22/2018 5:40 AM PATIENT SUPPORT PARTNER) Only the most recent of 9 results within the time period is included. White Blood Cells 5.7 4.5 - 11.0 K/UL MAIN LAB RBC 3.28 (L) 4.0 - 5.0 M/UL MAIN LAB Hemoglobin 10.6 (L) 12.0 - 15.0 GM/DL MAIN LAB Hematocrit 31.0 (L) 36 - 45 % MAIN LAB MCV 94.6 80 - 100 FL MAIN LAB MCH 32.2 26 - 34 PG MAIN LAB MCHC 34.1 32.0 - 36.0 G/DL MAIN LAB RDW 12.9 11 - 15 % MAIN LAB Platelet Count 450 (H) 150 - 400 K/UL MAIN LAB MPV 7.6 7 - 11 FL MAIN LAB Specimen Blood Performing Organization Address [facility] Phone Number MAIN LAB [address] [place] [address] * IONIZED CALCIUM (10/22/2018 5:40 AM PATIENT SUPPORT PARTNER) Only the most recent of 21 results within the time period is included. Ionized Calcium 1.13 1.0 - 1.3 MMOL/L [facility] Specimen Blood Performing Organization Address [facility] Phone Number MAIN LAB [address] [place] [address] * CALCIUM (10/22/2018 5:40 AM PATIENT SUPPORT PARTNER) Only the most recent of 15 results within the time period is included. Calcium 9.1 8.5 - 10.6 MG/DL MAIN LAB Specimen Blood Performing Organization Address [facility] Phone Number MAIN LAB [address] [place] [address] * PARATHYROID HORMONE (10/21/2018 10:22 AM PATIENT SUPPORT PARTNER) Only the most recent of 4 results within the time period is included. PTH Hormone 11.3 10 - 65 PG/ML [facility] Specimen Blood Performing Organization Address City/[facility] Phone Number [facility] [address] [place] [address] * PHOSPHORUS (10/21/2018 10:22 AM PATIENT SUPPORT PARTNER) Only the most recent of 9 results within the time period is included. Phosphorus 5.4 (H)Comment: NOTE NEW 2.0 - 4.5 MG/DL [facility] MAIN [facility] REFERENCE RANGES Specimen Blood Performing Organization Address [facility] Phone Number [facility] [address] [place] [address] * MAGNESIUM (10/21/2018 10:22 AM PATIENT SUPPORT PARTNER) Only the most recent of 9 results within the time period is included. Magnesium 2.1 1.6 - 2.6 mg/dL [facility] Specimen Blood Performing Organization Address [facility] Phone Number [facility] [address] [place] [address] * BASIC METABOLIC PANEL (10/21/2018 10:22 AM PATIENT SUPPORT PARTNER) Only the most recent of 10 results within the time period is included. Sodium 138 137 - 147 MMOL/L [facility] Potassium 3.7 3.5 - 5.1 MMOL/L [facility] Chloride 98 98 - 110 MMOL/L [facility] CO2 29 21 - 30 MMOL/L [facility] Anion Gap 11 3 - 12 [facility] Glucose 142 (H) 70 - 100 MG/DL [facility] Blood Urea Nitrogen 32 (H) 7 - 25 MG/DL [facility] Creatinine 0.93 0.4 - 1.00 MG/DL [facility] Calcium 9.3 8.5 - 10.6 MG/DL [facility] eGFR Non >60 >60 mL/min [facility] Comment: The eGFR is not validated for use in drug dosing adjustments.Continue to use estimated creatinine clearance per dosing reference text.Please contact the Clinical Pharmacist for questions. eGFR >60 >60 mL/min [facility] Comment: The eGFR is not validated for use in drug dosing adjustments.Continue to use estimated creatinine clearance per dosing reference text.Please contact the Clinical Pharmacist for questions. Specimen Blood Performing Organization Address [facility] Phone Number [facility] [address] [place] [address] * ALBUMIN (10/17/2018 6:01 AM PATIENT SUPPORT PARTNER) Only the most recent of 2 results within the time period is included. Albumin 3.6 3.5 - 5.0 G/DL MAIN LAB Specimen Blood Performing Organization Address City/State/Zipcode Phone Number MAIN LAB [address] [place] [address] * PANOREX EXAM (10/16/2018 11:25 AM PATIENT SUPPORT PARTNER) Impressions Performed At Findings/Impression: [facility] RAD RESULTS 1.There are multitude of operative clips overlying the soft tissues along the right and left side of the angle the mandible. 2.No visible fractures or osseous lesions. No periapical lytic lesions. Diminished detail of the periapical area overlying the mental portion the mandible and central midline of the maxilla due to overlying artifact. If concern for active pathology in those areas then apical bitewing x-rays may be beneficial. 3.No visible dental caries. 4.A drain overlies the right and a drain overlies the left lateral aspect of the mandible extending over the bilateral maxillary sinuses. Finalized by Dav Adams M.D. on 10/16/2018 11:46 AM. Dictated by Dav Adams M.D. on 10/16/2018 11:43 AM. Narrative Performed At PANOREX EXAM [facility] RAD RESULTS Clinical Indication: pre-radiation evaluation. Comparison: None Procedure Note Interface, Radiant Results - 10/16/2018 11:49 AM PATIENT SUPPORT PARTNER PANOREX EXAM Clinical Indication: pre-radiation evaluation. Comparison: None IMPRESSION Findings/Impression: 1. There are multitude of operative clips overlying the soft tissues along the right and left side of the angle the mandible. 2. No visible fractures or osseous lesions. No periapical lytic lesions. Diminished detail of the periapical area overlying the mental portion the mandible and central midline of the maxilla due to overlying artifact. If concern for active pathology in those areas then apical bitewing x-rays may be beneficial. 3. No visible dental caries. 4. A drain overlies the right and a drain overlies the left lateral aspect of the mandible extending over the bilateral maxillary sinuses. Finalized by Dav Adams M.D. on 10/16/2018 11:46 AM. Dictated by Dav Adams M.D. on 10/16/2018 11:43 AM. Performing Organization Address [facility] Phone Number [facility] RAD RESULTS * 25-OH VITAMIN D (D2 + D3) (10/15/2018 8:24 PM PATIENT SUPPORT PARTNER) Vitamin D(25-OH)Total 9.1 (L) 30 - 80 NG/ML MAIN LAB Specimen Blood Performing Organization Address [facility] Phone Number MAIN LAB [address] [place] [address] * ABDOMEN AP ONLY (10/13/2018 3:15 PM PATIENT SUPPORT PARTNER) Impressions Performed At NG tube with tip overlying the GE junction. Advancement is recommended for [facility] RAD RESULTS optimal positioning. Approved by Faustino Beal M.D. on 10/13/2018 4:51 PM By my electronic signature, I attest that I have personally reviewed the images for this examination and formulated the interpretations and opinions expressed in this report Finalized by Zacarias Lock M.D. on 10/13/2018 5:22 PM. Dictated by Faustino Beal M.D. on 10/13/2018 4:35 PM. Narrative Performed At ABDOMEN AP ONLY [facility] RAD RESULTS Clinical Indication: Female, 58 years old. Check NG tube Comparison: PET scan 10/06/2018 Findings: An NG tube is in place with tip overlying the GE junction. The lung bases are clear. The bowel gas pattern is nonobstructive. Procedure Note Interface, Radiant Results - 10/13/2018 5:25 PM PATIENT SUPPORT PARTNER ABDOMEN AP ONLY Clinical Indication: Female, 58 years old. Check NG tube Comparison: PET scan 10/06/2018 Findings: An NG tube is in place with tip overlying the GE junction. The lung bases are clear. The bowel gas pattern is nonobstructive. IMPRESSION NG tube with tip overlying the GE junction. Advancement is recommended for optimal positioning. Approved by Faustino Beal M.D. on 10/13/2018 4:51 PM By my electronic signature, I attest that I have personally reviewed the images for this examination and formulated the interpretations and opinions expressed in this report Finalized by Zacarias Lock M.D. on 10/13/2018 5:22 PM. Dictated by Faustino Beal M.D. on 10/13/2018 4:35 PM. Performing Organization Address [facility] Phone Number [facility] RES[facility] * SURGICAL PATHOLOGY (10/13/2018 12:12 PM PATIENT SUPPORT PARTNER) Only the most recent of 2 results within the time period is included. PATHOLOGY REPORT [facility] [email or web address] Department of Pathology and Laboratory Medicine [address] [place] [id number] Surgical Pathology Office:[phone] :[phone] SURGICAL PATHOLOGY REPORT NAME: JACKI MADSEN SURG PATH #: [id number] MR #: [id number] SPECIMEN CLASS: [facility] BILLING #: [id number] ALT ID #:LOCATION: DISCHARGED DATE OF PROCEDURE: 10/13/2018 AGE:58 SEX: F DATE RECEIVED: 10/13/2018 : 1960TIME RECEIVED:12:12 PHYSICIAN: KALLI SNYDER DATE OF REPORT: 10/22/2018 COPY TO:DATE OF PRINTIN10/22/2018 ############################## ############################## ############ Final Diagnosis: A. Lymph nodes (14), "right neck dissection", dissection: Negative for malignancy (0/14) See comment. B. Lymph nodes (20), "left neck dissection", dissection: Negative for malignancy (0/20) See comment. C. Larynx & thyroid, "larynx and total thyroid", total laryngectomy: Larynx: Squamous cell carcinoma, moderately differentiated and keratinizing Thyroid: Negative for malignancy See comment. D. Mucosa, "right hypopharynx", biopsy: Negative for malignancy E. Mucosa, "left hypopharynx", biopsy: Negative for malignancy F. Mucosa, "base of tongue MM", biopsy: Negative for malignancy G. Mucosa, "post cricoid", biopsy: Negative for malignancy Comment: LARYNX (SUPRAGLOTTIS, GLOTTIS, SUBGLOTTIS): Excisional Biopsy, Resection CAP Version: Larynx 4.0.0.0 Procedure: Total laryngectomy Neck (lymph node) dissection (specify): Other (specify): Total thyroidectomy Tumor Site: Larynx, glottis True vocal cord Transglottic Extension: Present Tumor Laterality: Left predominantly but extends to right Tumor Focality: Unifocal Tumor Size: Greatest dimension (centimeters): 1.7 cm Additional dimensions (centimeters): 1.6 x 0.9 cm Histologic Type: Squamous Cell Carcinoma and Variants (select all that apply): Squamous cell carcinoma, conventional (keratinizing) Histologic Grade: G2:Moderately differentiated Tumor Extension (other structures/spaces involved) Specify: Into paraglottic space Margins (select all that apply) Margins on the main composite resection specimen Uninvolved by invasive tumor Distance from closest margin (millimeters): 16 mm Specify location of closest margin, per orientation, if possible: Left hypopharynx True (final) margins, as submitted separately for frozen section: Negative Lymphovascular Invasion: Not identified Perineural Invasion: Not identified Regional Lymph Nodes Number of Lymph Nodes Involved: 0 Number of Lymph Nodes Examined: 34 Pathologic Stage Classification (pTNM, AJCC 8th Edition) Note: Reporting of pT, pN, and (when applicable) pM categories is based on information available to the pathologist at the time the report is issued. TNM Descriptors pT3 N0 M(N/A) For All Carcinomas Primary Tumor (pT): For the Glottis pT3:Tumor limited to the larynx with vocal cord fixation and/or invasion of paraglottic space and/or inner cortex of the thyroid cartilage Regional Lymph Node (pN): pN0:No regional lymph node metastasis Distant Metastasis (pM) (required only if confirmed pathologically in this case): Not applicable Additional Pathologic Findings (select all that apply): None identified Ancillary Studies: Not applicable The pathologic stage assigned here should be regarded as provisional, as it reflects only current pathologic data and does not incorporate full knowledge of the patient's clinical status and/or prior pathology. Attestation: By this signature, I attest that I have personally formulated the final interpretation expressed in this report and that the above diagnosis is based upon my examination of the slides and/or other material indicated in this report. +++ +++ suleman/10/14/2018 ############################## ############################## ############ Material Received: A: right neck dissection B: left neck dissection C: larynx and total thyroid D: right hypopharynx E: left hypopharynx F: base of tongue mm G: post cricoid History: 58-year-old female with a history of laryngeal mass, mass of larynx Gross Description: A. Received in formalin labeled with the patient's name and "right neck dissection" is a 6.5 x 5.4 x 1.2 cm aggregate of yellow-henson tissue palpated to reveal multiple possible lymph nodes ranging in size from 0.5 x 0.5 x 0.3 cm up to 3.0 x 1.3 x 1.1 cm. The specimen is submitted entirely follows: A1 Five possible lymph nodes, submitted whole. A2 Four possible lymph nodes, submitted whole. A3 Four possible lymph nodes, submitted whole. A4 One possible lymph node, trisected. A5-A6 One possible lymph node, serially sectioned. A7 One possible lymph node, serially sectioned. A8-A9 Adipose tissue and possible lymph nodes. ([facility]) B. Received in formalin labeled with the patient's name and "left neck dissection" is a 6.1 x 4.7 x 1.5 by cm aggregate of yellow-henson tissue palpated to reveal multiple possible lymph nodes, ranging in size from 0.3 x 0.3 x 0.3 cm up to 3.3 x 1.7 x 1.2 cm. The specimen is submitted entirely as follows: B1 Five possible lymph nodes, submitted whole. B2 Four possible lymph nodes, submitted whole. B3 Four possible lymph nodes, submitted whole. B4 Two possible lymph nodes, submitted whole. B5 Two possible lymph nodes, submitted whole. B6 Two possible lymph nodes, bisected (one possible lymph node differentially inked black). B7 One possible lymph node, serially sectioned. B8-B9 One possible lymph node, serially sectioned. B10-B11 Fibroadipose tissue and possible lymph nodes. ([facility]) C. Fixative: Fresh Labeled: "Larynx and total thyroid" Specimen received: Total laryngectomy and thyroidectomy Measurement: 9.2 x 5.9 x 4.6 cm Specimen includes: Hyoid bone-6.3 x 0.6 x 0.4 cm, epiglottis to 3rd tracheal ring 9.1 cm Specimen received: Intact Tumor measurement: 1.7 x 1.6 cm Tumor centered on: Left true vocal cords Tumor involves: anterior commissure, right/left true vocal cord, right/left ventricle, right/left paraglottic space wire tip exiting off. 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 Tumor does not involve: [vallecula/base of tongue, epiglottis, pre-epiglottic space, right/left false vocal fold, right/left ventricle, right/left aryepiglottic folds, right/left pyriform sinus, right/left hypopharyngeal wall, hyoid bone, trachea, thyroid cartilage, cricoid cartilage, anterior neck soft tissues, thyroid gland] Tumor from distal tracheal margin: 5.2 cm Tumor from vallecula/base of tongue margin: 2.2 cm Tumor from left pyriform sinus/hypopharynx margin: 1.6 cm Tumor from right pyriform sinus/hypopharynx margin: 1.9 cm Tumor from anterior soft tissue margin: 1.9 cm Tracheal cartilage: Calcified Tumor invasion: Invading to the thyroid cartilage Tumor depth of invasion: 0.7 cm Stoma: Yes Skin attached: 2.9 x 2.2 Lymph nodes: No. Thyroid: Yes consisting of right lobe (4.3 x 2.6 x 1.1 cm), isthmus (2.2 x 1.4 x 0.6 cm), and left lobe (4.9 x 2.4 x 0.9 cm) The anterior soft tissue is inked black, the left lateral soft tissue is inked blue, and the right lateral soft tissue is inked green. The false vocal cord is inked purple. Tissue submitted to Biospecimen Repository Core Facility: No Or Manager sections of the specimen are submitted as follows: N0Vjgbbxlj margin. C2 Right aryepiglottic fold & right piriform sinus (with inked pyriform sinus margin). C3Left aryepiglottic fold & left piriform sinus (with inked pyriform sinus margin). S0Utkcciejoe, inked vallecular/base of tongue margin. C5 Post cricoid mucosal margin. H6Xaolg true vocal cord/ventricle/false vocal cord with paraglottic space. C7Left true vocal cord/ventricle/false vocal cord with paraglottic space. K2Zstwiaev commissure. L6Ijdhxnpivr and pre-epiglottic space. S59Mwfrw to right/left paraglottic space. T35Svqlv to thyroid cartilage (at deepest invasion). G67Zsenl to nearest anterior soft tissue margin. R57Lffofof of posterior cricoid cartilage with posterior cricoid area. S28Ybrqthd of hyoid bone. B47Jjxvgijfvjyqjm section of skin at tracheostomy site. M00Bliarfexwxsosv sections from left thyroid. X39Ksnlrrqjdvhlur sections from right thyroid. ([facility]) D. Received fresh, labeled with patient's name and "right hypopharynx" is a 6.9 x 0.4 x 0.3 cm white-henson tissue fragment. The specimen is bisected and is submitted entirely for frozen consultation with the remnant placed in cassette D1FS for permanent diagnosis. ([facility]) E. Received fresh, labeled with patient's name and "left hypopharynx" is a 7.5 x 0.4 x 0.3 cm white-henson tissue fragment. The specimen is trisected and is submitted entirely for frozen consultation with the remnant placed in cassette E1FS for permanent diagnosis. ([facility]) F. Received fresh, labeled with patient's name and "base of tongue MM" is a 1.3 x 0.3 x 0.3 cm white-henson tissue fragment. The specimen is submitted entirely for frozen consultation with the remnant placed in cassette F1FS for permanent diagnosis. ([facility]) G. Received fresh, labeled with patient's name and "post cricoid" is a 1.4 x 0.3 x 0.3 cm white-henson tissue fragment. The specimen is submitted entirely for frozen consultation with the remnant placed in cassette G1FS for permanent diagnosis. ([facility]) [facility]/10/13/2018 Intraoperative Consultation: D1FS, mucosa, "right hypopharynx", biopsy: Negative for malignancy E1FS, mucosa, "left hypopharynx", biopsy: Negative for malignancy F1FS, mucosa, "base of tongue MM", biopsy: Negative for malignancy G1FS, mucosa, "post cricoid", biopsy: Negative for malignancy Frozen section performed at the [facility], [facility], [address] [place] [id number]. Jasmina Rubi MD Performing Organization Address City/State/Zipcode Phone Number [facility] [address] [place] [address] * BLOOD TYPE CONFIRMATION - ORDER ONLY IF REQUESTED BY LAB (10/13/2018 8:35 AM PATIENT SUPPORT PARTNER) ABO/RH(D) A POS MAIN LAB Specimen Blood Performing Organization Address [facility] Phone Number [facility] [address] [place] [address] * TYPE & CROSSMATCH (10/13/2018 8:30 AM PATIENT SUPPORT PARTNER) Units Ordered 2 MAIN LAB Crossmatch Expires 10/16/2018 MAIN LAB Record Check 2ND TYPE REQUIRED MAIN LAB ABO/RH(D) A POS MAIN LAB Antibody Screen NEG MAIN LAB Electronic Crossmatch YES MAIN LAB Specimen Blood Performing Organization Address City/[facility] Phone Number [facility] [address] [place] [address] * 2-D + DOPPLER ECHOCARDIOGRAM (10/08/2018 11:14 AM PATIENT SUPPORT PARTNER) BSA 1.9 m2 OTHER OUTSIDE LAB LVIDD 3.3 3.8 - 5.2 cm OTHER OUTSIDE LAB IVS 0.9 0.6 - 0.9 cm OTHER OUTSIDE LAB PW 0.8 0.6 - 0.9 cm OTHER OUTSIDE LAB LVIDS 1.5 2.2 - 3.5 cm OTHER OUTSIDE LAB FS 54.55 28 - 44 % OTHER OUTSIDE LAB EF 92.73 % OTHER OUTSIDE LAB LA volume 26.0 22 - 52 mL OTHER OUTSIDE LAB Sinus 0.1 2.7 - 3.3 cm OTHER OUTSIDE LAB LV mass 74.70 66 - 150 g OTHER OUTSIDE LAB LA size 3.0 2.7 - 3.8 cm OTHER OUTSIDE LAB RWT 0.48 <=0.42 OTHER OUTSIDE LAB AV peak velocity 1.4 m/s OTHER OUTSIDE LAB E/A ratio 0.71 OTHER OUTSIDE LAB TDI e' 0.080 m/s OTHER OUTSIDE LAB TV rest pulmonary artery 22 mmHg OTHER OUTSIDE LAB pressure E/E' ratio 6.25 OTHER OUTSIDE LAB Right Ventricular Basal 2.6 2.5 - 4.1 cm OTHER OUTSIDE LAB Diameter Right Ventricular Mid 1.3 1.9 - 3.5 cm OTHER OUTSIDE LAB Diameter Right Atrial Area 10.0 <18 cm2 OTHER OUTSIDE LAB Right Heart Systolic TDI 0.100 m/s OTHER OUTSIDE LAB S' MV Peak E Stephen PW 0.500 m/s OTHER OUTSIDE LAB MV Peak A Stephen 0.700 m/s OTHER OUTSIDE LAB Left Atrium Index 13.68 16 - 34 OTHER OUTSIDE LAB Cardiology Ultrasound Siemens [id number] OTHER OUTSIDE LAB Machine Left Ventricle Mass Index 39.32 44 - 88 g/m2 OTHER OUTSIDE LAB ECHO EF 65 % OTHER OUTSIDE LAB Narrative Performed At OTHER OUTSIDE LAB 1. Normal left ventricular function with no wall motion abnormalities. Estimated EF of 65%. 2. Normal left ventricular diastolic function. Mild left ventricular concentric remodeling. 3. Normal right ventricular size and function (TAPSE=1.8cm). 4. No significant valvular abnormalities. 5. No pericardial effusion. 6. Estimated PASP 22 mmHg. There are no prior studies for comparison. Performing Organization Address City/State/Zipcode Phone Number OTHER OUTSIDE LAB * SWALLOW MOTION SERIES (10/07/2018 8:48 AM PATIENT SUPPORT PARTNER) Impressions Performed At 1. Laryngeal penetration with thin consistency barium. No aspiration events. [facility] 2. Please see separately dictated report from the Department of Speech Pathology for further description. By my electronic signature, I attest that I have personally reviewed the images for this examination and formulated the interpretations and opinions expressed in this report Finalized by SYED CASILLAS M.D. on 10/07/2018 11:24 AM. Dictated by Derian Gar M.D. on 10/07/2018 9:07 AM. Narrative Performed At SWALLOW MOTION SERIES [facility] RES[facility] CLINICAL HISTORY: Female, 58 years old; pharyngeal dysphagia, laryngeal mass, tracheostomy TECHNIQUE: The procedure was performed in conjunction with members of the department of speech pathology. Video fluoroscopy was performed during swallowing of various consistencies of barium. The patient tolerated the procedure well and left the department in stable condition. TOTAL FLUOROSCOPY TIME: 96 seconds FINDINGS: Tracheostomy tube in place. Subcutaneous emphysema is noted throughout the cervical soft tissues. Laryngeal penetration with thin consistency barium. No aspiration events. No laryngeal penetration or aspiration with additional tested consistencies of barium. Procedure Note Interface, Radiant Results - 10/07/2018 11:27 AM PATIENT SUPPORT PARTNER SWALLOW MOTION SERIES CLINICAL HISTORY: Female, 58 years old; pharyngeal dysphagia, laryngeal mass, tracheostomy TECHNIQUE: The procedure was performed in conjunction with members of the department of speech pathology. Video fluoroscopy was performed during swallowing of various consistencies of barium. The patient tolerated the procedure well and left the department in stable condition. TOTAL FLUOROSCOPY TIME: 96 seconds FINDINGS: Tracheostomy tube in place. Subcutaneous emphysema is noted throughout the cervical soft tissues. Laryngeal penetration with thin consistency barium. No aspiration events. No laryngeal penetration or aspiration with additional tested consistencies of barium. IMPRESSION 1. Laryngeal penetration with thin consistency barium. No aspiration events. 2. Please see separately dictated report from the Department of Speech Pathology for further description. By my electronic signature, I attest that I have personally reviewed the images for this examination and formulated the interpretations and opinions expressed in this report Finalized by SYED CASILLAS M.D. on 10/07/2018 11:24 AM. Dictated by Derian Gar M.D. on 10/07/2018 9:07 AM. Performing Organization Address City/State/Zipcode Phone Number [facility] RESULTS * NM PET SCAN TORSO (SKULL-THIGHS) (10/06/2018 1:21 PM PATIENT SUPPORT PARTNER) Impressions Performed At 1.Hypermetabolic left glottic mass, most compatible with a primary neoplasm. [facility] 2.No hypermetabolic regional nadeen or distant metastases. 3.Prior tracheostomy with mildly increased FDG uptake about the tracheostomy tube, likely postoperative in nature. Extensive pneumomediastinum and subcutaneous emphysema extending into the lower neck, likely postoperative. 4.Bibasilar atelectasis and/or pneumonitis. Approved by Rosalino Baxter M.D. on 10/06/2018 3:10 PM By my electronic signature, I attest that I have personally reviewed the images for this examination and formulated the interpretations and opinions expressed in this report Finalized by Zacarias Lock M.D. on 10/06/2018 5:04 PM. Dictated by Rosalino Baxter M.D. on 10/06/2018 1:48 PM. Narrative Performed At PET/CT NECK, CHEST, ABDOMEN AND PELVIS [facility]ULTS RADIOPHARMACEUTICAL:17.5 mCi F-18 Fluorodeoxyglucose (FDG) IV. TECHNIQUE:Beginning approximately 60 minutes after tracer administration, routine whole body PET/CT imaging was performed from the level of the base of the skull to the upper thighs.PET images were reviewed in standard orthogonal projections.Low dose non-contrast CT imaging was performed for attenuation correction and localization purposes. BLOOD GLUCOSE LEVEL AT THE TIME OF RADIOPHARMACEUTICAL ADMINISTRATION:83 mg/dl CLINICAL HISTORY:58-year-old female, laryngeal mass, status post tracheostomy and biopsy COMPARISON: CT neck and chest from earlier the same day FINDINGS: Mean blood pool SUV 2.2, maximum 2.9. Mean hepatic SUV 2.7, maximum 4.2. Head/Neck: Redemonstration of the mass involving the left glottic larynx which demonstrates increased FDG uptake with a maximum SUV of 14.0 (index 221). Prior tracheostomy with soft tissue thickening and stranding about the tracheostomy tube with mild FDG uptake, likely postoperative in nature. No hypermetabolic cervical lymphadenopathy. Chest: No suspicious hypermetabolic lesions are identified within the chest. Atelectasis and/or pneumonitis in the lung bases with low level FDG uptake with a maximum SUV of 3.1 in the right lung base (index 424). Small pulmonary nodules in the right lung are too small to characterize by PET. Abdomen/Pelvis: No suspicious hypermetabolic lesions are seen within the abdomen or pelvis. Physiological activity is noted within the kidneys and bladder Osseous Structures: No suspicious hypermetabolic osseous lesions are seen. Additional significant low dose CT findings: Unchanged pneumomediastinum and extensive subcutaneous emphysema extending into the neck. Cholelithiasis. Mild calcified atherosclerotic plaque of the abdominal aorta. Contrast opacifies the urinary bladder. The uncorrected PET images demonstrate no additional abnormality. Procedure Note Interface, Radiant Results - 10/06/2018 5:08 PM PATIENT SUPPORT PARTNER PET/CT NECK, CHEST, ABDOMEN AND PELVIS RADIOPHARMACEUTICAL: 17.5 mCi F-18 Fluorodeoxyglucose (FDG) IV. TECHNIQUE: Beginning approximately 60 minutes after tracer administration, routine whole body PET/CT imaging was performed from the level of the base of the skull to the upper thighs. PET images were reviewed in standard orthogonal projections. Low dose non-contrast CT imaging was performed for attenuation correction and localization purposes. BLOOD GLUCOSE LEVEL AT THE TIME OF RADIOPHARMACEUTICAL ADMINISTRATION: 83 mg/dl CLINICAL HISTORY: 58-year-old female, laryngeal mass, status post tracheostomy and biopsy COMPARISON: CT neck and chest from earlier the same day FINDINGS: Mean blood pool SUV 2.2, maximum 2.9. Mean hepatic SUV 2.7, maximum 4.2. Head/Neck: Redemonstration of the mass involving the left glottic larynx which demonstrates increased FDG uptake with a maximum SUV of 14.0 (index 221). Prior tracheostomy with soft tissue thickening and stranding about the tracheostomy tube with mild FDG uptake, likely postoperative in nature. No hypermetabolic cervical lymphadenopathy. Chest: No suspicious hypermetabolic lesions are identified within the chest. Atelectasis and/or pneumonitis in the lung bases with low level FDG uptake with a maximum SUV of 3.1 in the right lung base (index 424). Small pulmonary nodules in the right lung are too small to characterize by PET. Abdomen/Pelvis: No suspicious hypermetabolic lesions are seen within the abdomen or pelvis. Physiological activity is noted within the kidneys and bladder Osseous Structures: No suspicious hypermetabolic osseous lesions are seen. Additional significant low dose CT findings: Unchanged pneumomediastinum and extensive subcutaneous emphysema extending into the neck. Cholelithiasis. Mild calcified atherosclerotic plaque of the abdominal aorta. Contrast opacifies the urinary bladder. The uncorrected PET images demonstrate no additional abnormality. IMPRESSION 1. Hypermetabolic left glottic mass, most compatible with a primary neoplasm. 2. No hypermetabolic regional nadeen or distant metastases. 3. Prior tracheostomy with mildly increased FDG uptake about the tracheostomy tube, likely postoperative in nature. Extensive pneumomediastinum and subcutaneous emphysema extending into the lower neck, likely postoperative. 4. Bibasilar atelectasis and/or pneumonitis. Approved by Rosalino Baxter M.D. on 10/06/2018 3:10 PM By my electronic signature, I attest that I have personally reviewed the images for this examination and formulated the interpretations and opinions expressed in this report Finalized by Zacarias Lock M.D. on 10/06/2018 5:04 PM. Dictated by Rosalino Baxter M.D. on 10/06/2018 1:48 PM. Performing Organization Address City/State/Zipcode Phone Number [facility] RES[facility] * CT CHEST W CONTRAST (10/06/2018 10:14 AM PATIENT SUPPORT PARTNER) Impressions Performed At 1. Subcutaneous air and pneumomediastinum centered along the upper mediastinum [facility] RESULTS extending into the neck may be postoperative in nature. 2. There are a few ill-defined groundglass nodules in the right upper lobe which may be infectious or inflammatory in nature. Attention on 6 month follow-up CT or per clinical protocol to reassess and to ensure resolution. 3. Cholelithiasis. 4. Hypoattenuation at the left ventricular apex myocardium could reflect sequela myocardial infarction or potentially ischemia. Artifact may appear similar. Correlate with troponin evaluation and patient symptoms. #Follow Finalized by Jose Rocha M.D. on 10/06/2018 10:53 AM. Dictated by Jose Rocha M.D. on 10/06/2018 10:42 AM. Narrative Performed At CT CHEST W CONTRAST [facility] RES[facility] INDICATION:Laryngeal mass Comparison: None. TECHNIQUE: Following the uneventful administration of intravenous contrast, axial CT sections were obtained through the lungs and upper abdomen. Coronal and sagittal multiplanar reconstructions were also obtained. FINDINGS: Life support devices: Tracheostomy tube terminates in expected position. Lungs and Airways: Paraseptal emphysema. Bandlike subsegmental atelectasis at both lung bases. No consolidation. There are a few scattered groundglass nodules. For example, 6 mm right upper lobe groundglass nodule image 18 series 301 and 5 mm right upper lobe groundglass nodule image 22. Calcified granulomas. Pleura: The pleural spaces are normal. Heart and Mediastinum: The thyroid gland is of normal size and attenuation. No axillary or supraclavicular lymphadenopathy. No mediastinal, hilar or retrocrural lymphadenopathy. Heart size is normal. Hypoattenuation in the left ventricular apical myocardium as seen on image 38 of series 301. Aorta is calcified, indicating atherosclerosis. Pneumomediastinum. Abdomen: Cholelithiasis. Bones and Soft Tissues: Subcutaneous air in the anterior chest wall extending into the neck. No suspicious lytic or blastic osseous lesions. Procedure Note Interface, Radiant Results - 10/06/2018 10:56 AM PATIENT SUPPORT PARTNER CT CHEST W CONTRAST INDICATION: Laryngeal mass Comparison: None. TECHNIQUE: Following the uneventful administration of intravenous contrast, axial CT sections were obtained through the lungs and upper abdomen. Coronal and sagittal multiplanar reconstructions were also obtained. FINDINGS: Life support devices: Tracheostomy tube terminates in expected position. Lungs and Airways: Paraseptal emphysema. Bandlike subsegmental atelectasis at both lung bases. No consolidation. There are a few scattered groundglass nodules. For example, 6 mm right upper lobe groundglass nodule image 18 series 301 and 5 mm right upper lobe groundglass nodule image 22. Calcified granulomas. Pleura: The pleural spaces are normal. Heart and Mediastinum: The thyroid gland is of normal size and attenuation. No axillary or supraclavicular lymphadenopathy. No mediastinal, hilar or retrocrural lymphadenopathy. Heart size is normal. Hypoattenuation in the left ventricular apical myocardium as seen on image 38 of series 301. Aorta is calcified, indicating atherosclerosis. Pneumomediastinum. Abdomen: Cholelithiasis. Bones and Soft Tissues: Subcutaneous air in the anterior chest wall extending into the neck. No suspicious lytic or blastic osseous lesions. IMPRESSION 1. Subcutaneous air and pneumomediastinum centered along the upper mediastinum extending into the neck may be postoperative in nature. 2. There are a few ill-defined groundglass nodules in the right upper lobe which may be infectious or inflammatory in nature. Attention on 6 month follow- up CT or per clinical protocol to reassess and to ensure resolution. 3. Cholelithiasis. 4. Hypoattenuation at the left ventricular apex myocardium could reflect sequela myocardial infarction or potentially ischemia. Artifact may appear similar. Correlate with troponin evaluation and patient symptoms. #Follow Finalized by Jose Rocha M.D. on 10/06/2018 10:53 AM. Dictated by Jose Rocha M.D. on 10/06/2018 10:42 AM. Performing Organization Address City/State/Zipcode Phone Number [facility] RESULTS * CT NECK W/CONTRAST (10/06/2018 10:14 AM PATIENT SUPPORT PARTNER) Impressions Performed At 1. Interval tracheostomy and biopsy of a left glottic mass. Irregular enhancing [facility] RES[facility] ulcerated left glottic mass measuring up to 2.1 cm. Primarily left supraglottic extension into the left paraglottic fat with uplifting of the left false cord. No discrete cartilage invasion or subglottic extension is identified. 2. No cervical adenopathy. Finalized by Dilan Morrissey M.D. on 10/06/2018 10:58 AM. Dictated by Dilan Morrissey M.D. on 10/06/2018 10:29 AM. Narrative Performed At CT Neck with Contrast [facility] Clinical Indication: Female, 58 years old. Laryngeal mass status post gland awake tracheostomy and biopsy Technique: Multiple contiguous axial images were obtained through the neck following the administration of Omnipaque 350 IV contrast material. Post processing coronal and sagittal reconstruction images were made from the axial images. Comparison: Neck CT 09/07/2018; same-day chest CT Findings: Brain and Orbits: Normal. Sinuses and Mastoids: Normal. Suprahyoid Neck: Normal oral cavity, oropharynx, parapharyngeal space, and retropharyngeal space. Infrahyoid Neck: Interval tracheostomy, with tracheostomy tube seated within the superior aspect of the trachea. Irregular ulcerated mass involving left glottic larynx is redemonstrated with associated findings related to interval biopsy. The irregular area of enhancement measures 1.7 x 0.7 x 2.1 cm (series 301 image 47; coronal image 44). Irregular area of enhancement extends superiorly in the left paraglottic fat with effacement of the left laryngeal ventricle and up lifting of the left false cord. The epiglottis is thin at its suprahyoid portion with linear mucosal enhancement seen at the base and petiole. The aryepiglottic folds appear normal. Preepiglottic fat is grossly preserved. No discrete nodular tissue is seen extending in the subglottic larynx which retains normal thin mucosal enhancement. Cricoid and thyroid cartilages are preserved. There is pleural sclerosis and demineralization of both arytenoid cartilages without discrete enhancing soft tissue invasion noted. Mucosal surfaces of the hypopharynx appear normal. The piriform sinuses are largely effaced. Lymph Nodes: There is subcutaneous emphysema throughout the superficial and deep cervical soft tissues, extending inferiorly into the mediastinum and upper anterior chest wall related to tracheostomy placement. Gas and edema obscures soft tissue planes in the neck, largely in the low central compartment and the suprahyoid neck. No enlarged cervical adenopathy is identified. Parotid and Submandibular Glands: Normal. Thyroid: Normal. Vasculature: Two-vessel arch branching pattern. Mild calcified plaque at the right carotid bifurcation. The cervical vasculature is otherwise patent. Osseous Structures: Normal. Thoracic inlet: Mild emphysema and pleural and parenchymal scarring are seen in the lung apices. Please see same-day chest CT for further description. Procedure Note Interface, Radiant Results - 10/06/2018 11:01 AM PATIENT SUPPORT PARTNER CT Neck with Contrast Clinical Indication: Female, 58 years old. Laryngeal mass status post gland awake tracheostomy and biopsy Technique: Multiple contiguous axial images were obtained through the neck following the administration of Omnipaque 350 IV contrast material. Post processing coronal and sagittal reconstruction images were made from the axial images. Comparison: Neck CT 09/07/2018; same-day chest CT Findings: Brain and Orbits: Normal. Sinuses and Mastoids: Normal. Suprahyoid Neck: Normal oral cavity, oropharynx, parapharyngeal space, and retropharyngeal space. Infrahyoid Neck: Interval tracheostomy, with tracheostomy tube seated within the superior aspect of the trachea. Irregular ulcerated mass involving left glottic larynx is redemonstrated with associated findings related to interval biopsy. The irregular area of enhancement measures 1.7 x 0.7 x 2.1 cm (series 301 image 47; coronal image 44). Irregular area of enhancement extends superiorly in the left paraglottic fat with effacement of the left laryngeal ventricle and up lifting of the left false cord. The epiglottis is thin at its suprahyoid portion with linear mucosal enhancement seen at the base and petiole. The aryepiglottic folds appear normal. Preepiglottic fat is grossly preserved. No discrete nodular tissue is seen extending in the subglottic larynx which retains normal thin mucosal enhancement. Cricoid and thyroid cartilages are preserved. There is pleural sclerosis and demineralization of both arytenoid cartilages without discrete enhancing soft tissue invasion noted. Mucosal surfaces of the hypopharynx appear normal. The piriform sinuses are largely effaced. Lymph Nodes: There is subcutaneous emphysema throughout the superficial and deep cervical soft tissues, extending inferiorly into the mediastinum and upper anterior chest wall related to tracheostomy placement. Gas and edema obscures soft tissue planes in the neck, largely in the low central compartment and the suprahyoid neck. No enlarged cervical adenopathy is identified. Parotid and Submandibular Glands: Normal. Thyroid: Normal. Vasculature: Two-vessel arch branching pattern. Mild calcified plaque at the right carotid bifurcation. The cervical vasculature is otherwise patent. Osseous Structures: Normal. Thoracic inlet: Mild emphysema and pleural and parenchymal scarring are seen in the lung apices. Please see same-day chest CT for further description. IMPRESSION 1. Interval tracheostomy and biopsy of a left glottic mass. Irregular enhancing ulcerated left glottic mass measuring up to 2.1 cm. Primarily left supraglottic extension into the left paraglottic fat with uplifting of the left false cord. No discrete cartilage invasion or subglottic extension is identified. 2. No cervical adenopathy. Finalized by Dilan Morrissey M.D. on 10/06/2018 10:58 AM. Dictated by Dilan Morrissey M.D. on 10/06/2018 10:29 AM. Performing Organization Address [facility] Phone Number RAD RESULTS * POC GLUCOSE (10/06/2018 9:43 AM PATIENT SUPPORT PARTNER) Glucose, POC 83 70 - 100 MG/DL MAIN LAB Performing Organization Address [facility] Phone Number MAIN LAB [address] [place] [address] * THYROID STIMULATING HORMONE-TSH (10/06/2018 8:45 AM PATIENT SUPPORT PARTNER) TSH 0.680 0.35 - 5.00 MCU/ML MAIN LAB Specimen Blood Performing Organization Address [facility] Phone Number MAIN LAB [address] [place] [address] * PREALBUMIN (10/06/2018 8:45 AM PATIENT SUPPORT PARTNER) Prealbumin 19.0 17 - 34 MG/DL MAIN LAB Specimen Blood Performing Organization Address [facility] Phone Number MAIN LAB [address] [place] [address] * TELEMETRY STRIPS-SCAN (10/05/2018 12:00 AM PATIENT SUPPORT PARTNER) Narrative Performed At Ordered by an unspecified provider. * ECG-SCAN (10/05/2018 12:00 AM PATIENT SUPPORT PARTNER) Narrative Performed At Ordered by an unspecified provider. * EXERCISE OXIMETRY-SCAN (10/05/2018 12:00 AM PATIENT SUPPORT PARTNER) Narrative Performed At Ordered by an unspecified provider. * CT NECK EXTERNAL IMAGING (09/07/2018 12:00 AM PATIENT SUPPORT PARTNER) Narrative Performed At This order has been auto finalized and does not contain a result. from Last 3 Months Insurance Payer Benefit Subscriber ID Type Phone Address Plan / Group AETNA MEDICAID AETNA xxxxxxxxxxx [facility] Advance Directives Patient has advance care planning documents, and code status on file. For more information, please contact: [facility] [address] [place] [address] Date Inactivated Comments Code Status Date Activated 10/22/2018 1:13 PM Full Code 10/05/2018 1:32 PM Provider has discussed Code Status No, discussion not w/Patient or Family? necessary based on Dx
--- OUTSIDE RECORDS SUMMARY | 2018-11-13 11:29 | XMS REPORT | Encounter Summary ---
Author Author [facility] Organization [facility] Address Unknown Phone Unavailable Care Team Providers Care Dental Appliance Mechanic Name Role Phone Kelly Olivier RN Unavailable Unavailable Chris Ohara MD PCP Encounter Details Care Team Description Date Type Department Kathy Kim, FLEXOGRAPHIC PRINTING MACHINIST-TANGIBLE PERSONAL PROPERTY APPRAISER [address] [place] [address] S/P laryngectomy (Primary Dx) 10/22/[address] [facility] - [facility] Level [address]C [address] [place] [address] Social History Date Tobacco Use [...] on fileas of this encounter Visit Diagnoses Diagnosis S/P laryngectomy - Primary Other postprocedural status in this encounter
--- OUTSIDE RECORDS SUMMARY | 2018-11-13 11:29 | XMS REPORT | Encounter Summary ---
Author Author [facility] Organization [facility] Address Unknown Phone Unavailable Care Team Providers Care Procurement Engineer Name Role Phone Kelly Olivier RN Unavailable Unavailable Chris Ohara MD PCP Reason for Referral * Consult, Test & Treat (Routine) Referred By Contact Referred To Contact Status Reason Specialty Diagnoses / Procedures Jacinto Theodore PA-C [address] [place] [address] [place] [address] [place] [address] New Request Specialty Services Rehabilitation Diagnoses Required Larynx cancer (HCC) S/P laryngectomy Scheduling Instructions This referral is only for patients that need PT/OT therapy for current symptoms of lymphedema and have had cancer treatment. Symptoms of lymphedema include: Axillary web syndrome (UE), radiation fibrosis, decreased range of motion, swelling of affected body part (head and neck, arms, legs, trunk, genital area), adherent scar tissue or pain of the involved limb. PT/OT location: [address] [place] [address], [address], Phone: . Reason for Visit * Reason Comments Post Operative Visit s/p total laryngectomy, bilateral MRND, total thyroidectomy and bilateral SCM muscle advancement rotation flaps on 10/13/18 Encounter Details Care Team Description Date Type Department Jacinto Theodore PA-C [address] [place], [place] [id number] Larynx cancer (HCC) (Primary Dx); S/P laryngectomy 10/29/2018 Office Visit [facility] - [facility] Level [address]C [address] [place] [address] Social History Date Tobacco Use [...] travel history available. as of this encounter Last Filed Vital Signs Time Taken Vital Sign Reading 10/29/2018 2:17 PM [employer] Blood Pressure 125/83 10/29/2018 2:17 PM [employer] Pulse 90 - Temperature - - Respiratory Rate - - Oxygen Saturation - - Inhaled Oxygen - Concentration 10/29/2018 2:17 PM [employer] Weight 76.2 kg (168 lb) 10/29/2018 2:17 PM [employer] Height 170.2 cm (5' 7") 10/29/2018 2:17 PM [employer] Body Mass Index 26.31 in this encounter Functional Status Date of Assessment Functional Status Response 10/05/2018 Does the patient have a hearing impairment: Yes as of this encounter Patient Instructions * Patient Instructions* Mariaelena Orozco LPN - 10/29/2018 2:00 PM [employer] Test ordered: Esophagram Location: [facility] at [address] [place] [address] ([address]nd Floor) Phone number: [phone] Radiology Department Mariaelena Orozco LPN | [email or web address] Nurse for: Dr Evens Howell, Dr Fred Hull & Jacinto Theodore PA-C | Appointment Date & Time: 11.05.2018 @ 1:30pm, arriving @ 1:00pm. PLEASE ARRIVE 30 MINUTES PRIOR TO YOUR SCAN [employer] in this encounter Progress Notes * Jacinto Theodore PA-C - 10/29/2018 2:00 PM [employer] HPI: Michelle Madsen was seen 10/29/2018 [facility] for postop follow up visit s/p total laryngectomy, bilateral MRND, total thyroidectomy and bilateral SCM muscle advancement rotation flaps on 10/13/18 . She is doing well. Here today for wound check. She does not yet have rad onc consult. Accompanied by her today. Had post op esophagram with small leak so still has corpak in place and has been NPO. No fever or drainage from her incisions. No breathing problems and has been using alkalol PRN and wearing HME. She has not been taking her thyroid medicine on an empty stomach. She denies hypoparathyroid symptoms and is still on supplemental calcium. Pt. had post op marine edu in house and was given electrolarynx. The pathology revealed Final Diagnosis: A. Lymph nodes (14), "right [...] Squamous cell carcinoma, conventional (keratinizing) Histologic Grade: G2: Moderately differentiated Tumor Extension (other structures/spaces involved) Specify: [...] is issued. TNM Descriptors pT3 N0 M(N/A) PE: BP 125/83 | Pulse 90 | Ht 170.2 cm (67") | Wt 76.2 kg (168 lb) | BMI 26.31 kg/m Physical exam including head and neck examination as well as inspection and palpation of the face, parotid and neck is remarkable for findings consistent with posttreatment postoperative changes and negative for new lesions, masses or lymphadenopathy. Healing well. No active infection. Airway is adequate. Larytube with HME removed today for exam revealing a healing stoma. Mild lymphedema present. Corpak in place. IMPRESSION:Overall, Ms. Madsen is doing well, healing well, and appears clinically free of disease. PLAN:We will see her in 1 week after repeat esophagram. Rad onc consult will be arranged close to home by NN. 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 Pathology was reviewed with the pt. and a copy of their pathology report was given to them today. Education given on thyroid medicine to be taken daily on empty stomach. All questions and concerns were addressed today and the pt. was encouraged to call with any further that may arise. Referral for lymphedema therapy. [employer] in this encounter Plan of Treatment Order Schedule Name Priority Associated Diagnoses Ordered: 10/29/2018 AMB REFERRAL TO LYMPHEDEMA PT/OT Routine Larynx cancer (HCC) S/P laryngectomy as of this encounter Visit Diagnoses Diagnosis Larynx cancer (HCC) - Primary Malignant neoplasm of larynx, unspecified site S/P laryngectomy Other postprocedural status in this encounter
--- OUTSIDE RECORDS SUMMARY | 2018-11-13 11:29 | XMS REPORT | Encounter Summary ---
Author Author [facility] Organization [facility] Address Unknown Phone Unavailable Care Team Providers Care Sewer Name Role Phone Kelly Olivier RN Unavailable Unavailable Chris Ohara MD PCP Reason for Visit * Reason Comments Post Operative Visit Encounter Details Care Team Description Date Type Department Twyla Quiles PA-C [address] [place] [address] Larynx cancer (HCC) (Primary Dx); Tobacco abuse; S/P laryngectomy; Depression, unspecified depression type 11/05/2018 Office Visit [facility] - [facility] Level [address]C [address] [place] [address] Social History Date Tobacco Use [...] Taken Vital Sign Reading 11/05/2018 1:59 PM [employer] Blood Pressure 91/66 11/05/2018 1:59 PM [employer] Pulse 125 - Temperature - - Respiratory Rate - - Oxygen Saturation - - Inhaled Oxygen - Concentration 11/05/2018 1:59 PM [employer] Weight 76.2 kg (168 lb) 11/05/2018 1:59 PM [employer] Height 170.2 cm (5' 7") 11/05/2018 1:59 PM [employer] Body Mass Index 26.31 in this encounter Functional Status Date of Assessment Functional Status Response 10/05/2018 Does the patient have a hearing impairment: Yes as of this encounter Progress Notes * Twyla Quiles PA-C - 11/05/2018 2:30 PM [employer] Date of Service: 11/05/2018 Subjective: Michelle Madsen is a 58 y.o. female. History of Present IllnessMs. Cale is s/p total laryngectomy, bilateral MRND , total thyroidectomy and bilateral SCM muscle advancement rotation flaps on . She is doing well from a surgical perspective. She states that she is depressed and want to change her depression medication. Here today for wound check. Patient has rad onc on 11/11/18 at 3pm. Accompanied by her and an "adopted son" today. She had a repeat esophagram today with the same persistent contained leak anterior to the cervical esophagus. NG tube is still in place. She is getting 6 cartons of feedings a day, but feels as if everything social surrounds food. No fever or drainage from her incisions. She requests refills of tramadol, gabapentin, abx, and alkalol spray today. She is wearing an HME at all times and has been cleaning her tube and around her stoma 1-2 times a day. In the interval, the patient states that she stopped smoking and hasn't had a cigarette in 30 days. She denies hypoparathyroid symptoms and is still on supplemental calcium. No surgeries, hospitalizations or new diagnoses in the interval. Review of Systems Constitutional: Negative. HENT: Negative. Eyes: Negative. Respiratory: Negative. Cardiovascular: Negative. Gastrointestinal: Negative. Endocrine: Negative. Genitourinary: Negative. Musculoskeletal: Negative. Skin: Negative. Allergic/Immunologic: Negative. Neurological: Negative. Hematological: Negative. Psychiatric/Behavioral: Negative. Objective: acetaminophen (TYLENOL) 160 mg/5 mL oral solution 20.3 mL by Per NG tube route every 4 hours as needed. amoxicillin/K clavulanate (AUGMENTIN) 400 mg/5 mL oral suspension Take 10.9 mL via feeding tube twice daily for 10 days. Take with food. Discard any remaining medication. antiseptic mucus solvent 120 mL 6 mL by Tracheal Tube route every 2 hours while awake. calcium citrate (CALCITRATE) 950 mg tab three tablets by Per NG tube route twice daily. Please take the follow calcium taper 2 TAB PO BID x 1 week THEN 2 tab PO Qday x 1 week THEN OFF docusate (COLACE) 50 mg/5 mL oral solution 10 mL by Per NG tube route twice daily. ergocalciferol (vitamin D-2) (CALCIFEROL) 8,000 unit/mL oral solution Take 6.25 mL via feeding tube three times weekly. gabapentin (NEURONTIN) 250 mg/5 mL oral solution 6 mL by Per NG tube route every 8 hours. levothyroxine (SYNTHROID) 125 mcg tablet Take one tablet by Per NG tube route daily 30 minutes before breakfast. nitroglycerin (NITROSTAT) 0.[address] 0.4 mg under tongue every 5 minutes as needed. pravastatin (PRAVACHOL) 40 mg tablet Take one tablet via feeding tube daily. QUEtiapine (SEROQUEL) 200 mg tablet Take one tablet via feeding tube at bedtime daily. Take with 300 mg for a total of 500 mg daily QUEtiapine (SEROQUEL) 300 mg tablet Take one tablet via feeding tube at bedtime daily. Take with 200 mg tablet for a total of 500 mg daily sodium chloride (SEA MIST) 0.65 % nasal spray Apply one spray to two sprays to each nostril as directed every 2 hours. traMADol (ULTRAM) 50 mg tablet Take one tablet to two tablets by Per NG tube route every 4 hours as needed. venlafaxine (EFFEXOR) 37.5 mg tablet Take one tablet by Per NG tube route twice daily with meals. Take with food. Vitals: 11/05/18 1359 BP: 91/66 Pulse: (!) 125 Weight: 76.2 kg (168 lb) Height: 170.2 cm (67") Body mass index is 26.31 kg/m. Physical Exam Physical exam including head and neck examination as well as inspection and palpation of the face, parotid and neck is remarkable for findings consistent with posttreatment postoperative changes and negative for new lesions, masses or lymphadenopathy. Healing well. No active infection. Airway is adequate. Larytube with HME removed today for exam revealing a healing stoma and tobacco residue accompanied by secretions. Tobacco smell. Mild lymphedema present. Corpak in place. Assessment and Plan: Ms. Madsen continues to heal well on the outside from her surgery. Minimal change to the leak seen on the esophagram today. 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 Pathology was reviewed with the pt. and a copy of their pathology report was given to them today. E Refilled thyroid medication, alkalol spray, and gabapentin. Refilled tramadol 50 mg 1 tab po BID #60 no refills. Reminded patient and family of rad onc appt. Promised to set up PEG tube placement closer to home. After the patient left, set up general surgery consult with Dr. Mistry in [place] on 11/09/18 at 330pm. Congratulated patient on quitting cigarettes. Changed the patient's antidepressant from effexor to cymbalta 60 mg. This has worked for the patient in the past. She should begin to wean off of the effexor by taking it just every other day for 1 week and then stopping. Sent Dr. Snyder a SM regarding the persistent leak and my plan to place G tube. Scheduled patient for 3 month failsafe appt with Dr. Snyder. [employer] in this encounter Plan of Treatment Not on fileas of this encounter Visit Diagnoses Diagnosis Larynx cancer (HCC) - Primary Malignant neoplasm of larynx, unspecified site Tobacco abuse Tobacco use disorder S/P laryngectomy Other postprocedural status Depression, unspecified depression type in this encounter
--- OUTSIDE RECORDS SUMMARY | 2018-11-13 11:29 | XMS REPORT | Encounter Summary ---
Author Author [facility] Organization [facility] Address Unknown Phone Unavailable Care Team Providers Care Air Brake Man Name Role Phone Kelly Olivier RN Unavailable Unavailable Chris Ohara MD PCP Reason for Referral * Radiology Services (Routine) Referred By Contact Referred To Contact Status Reason Specialty Diagnoses / Procedures Shreyas Snyder MD [address] [place] [address] New Request Radiology Diagnoses Larynx cancer (HCC) P rocedures ESOPHAGRAM Encounter Details Care Team Description Date Type Department Shreyas Snyder MD [address] [place] [address] Larynx cancer (HCC) (Primary Dx) 11/12/2018 Orders Only [facility] - E[facility] Level 3C [address] [place] [address] Social History Date Tobacco Use [...] as of this encounter Plan of Treatment Order Schedule Name Priority Associated Diagnoses Expected: 12/13/2018 (Approximate), Expires: 11/12/2019 ESOPHAGRAM Routine Larynx cancer (HCC) as of this encounter Visit Diagnoses Diagnosis Larynx cancer (HCC) - Primary Malignant neoplasm of larynx, unspecified site in this encounter
--- OUTSIDE RECORDS SUMMARY | 2018-11-13 11:29 | XMS REPORT | Encounter Summary ---
Author Author [facility] Organization [facility] Address Unknown Phone Unavailable Care Team Providers Care Air Cargo Ground Crew Supervisor Name Role Phone Kelly Olivier RN Unavailable Unavailable Chris Ohara MD PCP Reason for Referral * Radiology Services (Routine) Referred By Contact Referred To Contact Status Reason Specialty Diagnoses / Procedures Twyla Quiles PA-C [address] [place] [address] [address] [place] [address] No Auth Needed Radiology Diagnoses H/O laryngectomy Laryngeal cancer (HCC) P rocedures ESOPHAGRAM Encounter Details Care Team Description Date Type Department Twyla Quiles PA-C [address] [place], [place] [id number] H/O laryngectomy (Primary Dx); Laryngeal cancer (HCC) 10/22/2018 Orders Only [facility] - ENT [facility] Level [address]C [address] [place] [address] Social History Date Tobacco Use [...] Treatment Not on fileas of this encounter Results * ESOPHAGRAM (11/05/2018 1:45 PM STIFF LEG DERRICK OPERATOR) Impressions Performed At Persistent small linear collection [...] Interface, Radiant Results - 11/05/2018 2:35 PM STIFF LEG DERRICK OPERATOR LIMITED ESOPHAGRAM CLINICAL HISTORY: 58-year-old female, leak [...] this encounter Visit Diagnoses Diagnosis H/O laryngectomy - Primary Other postprocedural status Laryngeal cancer (HCC) Malignant neoplasm of larynx, unspecified site in this encounter
--- OUTSIDE RECORDS SUMMARY | 2018-11-13 11:29 | XMS REPORT | Encounter Summary ---
Author Author [facility] Organization [facility] Address Unknown Phone Unavailable Care Team Providers Care Fence Gate Assembler Name Role Phone Kelly Olivier RN Unavailable Unavailable Chris Ohara MD PCP Reason for Visit * Reason Comments Procedure Esophagram Encounter Details Care Team Description Date Type Department Pauline Pandey Procedure (Esophagram ) 11/12/2018 Telephone [facility] - [facility] Level [address]C [address] [place] [address] Social History Date Tobacco Use [...] encounter Miscellaneous Notes * Telephone Encounter - Pauline Pandey - 11/12/2018 1:52 PM TECHNICAL MAINTENANCE TECHNICIAN Called patient spoken with her finance about her schedule Esophagram schedule here at [facility] on 02/03/19 at 11:00 am he confirmed appointment. NICAL MAINTENANCE TECHNICIAN * Telephone Encounter - Pauline Pandey - 11/12/2018 1:45 PM TECHNICAL MAINTENANCE TECHNICIAN ----- Message from Faustina Watts RN sent at 11/12/2018 10:10 AM TECHNICAL MAINTENANCE TECHNICIAN ----- Regarding: Please schedule Esophagram and appt with Dr. Snyder Please schedule this patient an esophagram and appt with Dr. Snyder in one month. Orders are in. Faustina NICAL MAINTENANCE TECHNICIAN in this encounter Plan of Treatment Not on fileas of this encounter Visit Diagnoses Not on filein this encounter
--- OUTSIDE RECORDS SUMMARY | 2018-11-13 11:29 | XMS REPORT | Encounter Summary ---
Author Author [facility] Organization [facility] Address Unknown Phone Unavailable Care Team Providers Care Senior Litigation Paralegal Name Role Phone Kelly Olivier RN Unavailable Unavailable Chris Ohara MD PCP Reason for Visit * Reason Comments Appointment Encounter Details Care Team Description Date Type Department Shreyas Snyder MD [address] [place] [address] Appointment 11/02/2018 Telephone [facility] Physicians - ENT [facility] Level [address]C [address] [place] [address] Social History Date Tobacco Use [...] encounter Miscellaneous Notes * Telephone Encounter - Donna Patel MA - 11/02/2018 9:58 AM GAS METER INSTALLER HELPER Spoke to Temi at [facility] in [facility] she has scheduled appt for radiation consult 11.11.18 at 3pm. This IC called and spoke to Ernie shipman and gave him appt for radiaton consult 11.11.18at 3pm gave directions and to check in at 230. Satisfied with appt. METER INSTALLER HELPER in this encounter Plan of Treatment Not on fileas of this encounter Visit Diagnoses Not on filein this encounter
--- OUTSIDE RECORDS SUMMARY | 2018-11-13 11:32 | XMS REPORT | Encounter Summary ---
Author Author [facility] Organization [facility] Address Unknown Phone Unavailable Care Team Providers Care Product Safety Expert Name Role Phone Kelly Olivier RN Unavailable Unavailable Chris Ohara MD PCP Reason for Visit * Auth/Cert Referred By Contact Referred To Contact Status Reason Specialty Diagnoses / Procedures Diagnoses Laryngeal mass Laryngeal mass Laryngeal mass [J38.7] Procedures VT TRACHEOSTOMY PLANNED SEPARATE PROCEDURE TRACHEOSTOMY PLANNED Encounter Details Care Team Description Date Type Department Kalli Snyder MD [address] [place] [address] Laryngeal mass 10/05/2018 Hospital [facility] - Encounter [id number] [facility] 10/22/2018 [place], [place] [id number] Social History Date Tobacco Use Types Packs/Day [...] Vital Signs Time Taken Vital Sign Reading 10/22/2018 6:30 AM OPERATIONS LABEL CLERK Blood Pressure 90/49 10/22/2018 6:27 AM OPERATIONS LABEL CLERK Pulse 89 10/22/2018 5:50 AM OPERATIONS LABEL CLERK Temperature 36.8 C (98.2 F) - Respiratory Rate - 10/22/2018 6:44 AM OPERATIONS LABEL CLERK Oxygen Saturation 95% - Inhaled Oxygen - Concentration 10/08/2018 11:15 AM OPERATIONS LABEL CLERK Weight 76.2 kg (168 lb) 10/08/2018 11:15 AM OPERATIONS LABEL CLERK Height 170.2 cm (5' 7") 10/08/2018 11:15 AM OPERATIONS LABEL CLERK Body Mass Index 26.31 in this encounter Functional Status Date of Assessment Functional Status Response 10/05/2018 Does the patient have a hearing impairment: Yes as of this encounter Discharge Summaries * Kathy Kim APRN-NP - 10/22/2018 11:08 AM OPERATIONS LABEL CLERK Physician Discharge Summary Name: Jacki Madsen Date Of : 1960 Age: 58 years Admit date: 10/05/2018 Discharge date: 10/22/2018 Attending Physician: Dr. Kalli Snyder Service: Otolaryngology-Head & Neck Physician Summary completed by: PAN Campa Reason for hospitalization: Jacki Madsen is a 58 y.o. female with history of left sided vocal cord mass, respiratory dysfunction/ failure admitted for awake trach with Direct laryngoscopy / Total laryngectomy. Significant PMH: Past Medical History: Diagnosis Date Asthma Hypertension Uterine cancer (HCC) Allergies: Liver; Iodine; and Zocor [simvastatin] Admission Physical Exam notable for: PHYSICAL EXAM: Vital Signs:BP 125/79 (BP Source: Arm, Right Upper, Patient Position: Sitting) | Pulse 106 | Ht 170.2 cm (67") | Wt 76.4 kg (168 lb 6.4 oz) | BMI 26.38 kg/m General: Well-developed, well-nourished Communication and Voice:Very breathy and poor projection. Hearing: Hearing adequate for verbal communication bilaterally Inspection: Normocephalic and atraumatic without mass or lesion Palpation: Facial skeleton intact without bony stepoffs Parotid Glands: No mass or tenderness Facial Strength: Facial motility symmetric and full bilaterally Pinna: External ear intact and fully developed External canal: Canal is patent with intact skin Tympanic Membrane: Clear and mobile External nose: No scar or anatomic deformity Internal Nose: Septum intact and midline. No edema, polyp, or rhinorrhea. TMJ: No pain to palpation with full mobility Oral cavity, Lips, Teeth, and Gums: Mucosa and teeth intact and viable, No lesions, masses or ulcers. Poor dentition throughout. Oropharynx: No erythema or exudate, no masses or ulcerations, non-obstructive tonsils Nasopharynx: No mass or lesion with intact mucosa Hypopharynx: Not well visualized secondary to gagging Larynx: Not well visualized secondary to gagging Neck, Trachea, Lymphatics: Midline trachea without mass or lesion, no lymphadenopathy. Tender along left side Thyroid: No mass or nodularity Eyes: No nystagmus with equal extraocular motion bilaterally Neuro/Psych/Balance: Patient oriented and appropriate in interaction; Appropriate mood and affect; Gait is intact with no imbalance; Cranial nerves I-XII are intact Respiratory effort: Equal inspiration and expiration. Mild stridor on inspiration and severe wheezing. Peripheral Vascular: Warm extremities with equal pulses Procedure: Flexible fiberoptic nasopharyngoscopy/laryngoscopy Indications: Need for detailed exam, hyperactive gag reflex, inadequate mirror visualization. Surgeon: Kalli Snyder MD Procedure note/findings: After informed discussion of the risks, benefits, and alternatives after indications as noted above, a fiberoptic nasopharyngoscopy and laryngoscopy was recommended for above indications, and the patient consented to this. Nasal cavities were topically anesthetized and decongested with 4% lidocaine and Afrin solutions after which a flexible scope was easily advanced without difficulty into the left and right nasal cavities as well as into the nasopharynx. Nasal cavities were intact without gross mass or lesion. Nasopharynx, similarly, revealed no mass lesion or granularity. There was no ulceration. There was no gross asymmetry. Fossa of Rosenmueller was intact bilaterally. The eustachian tube orifices were intact bilaterally and patent. Posterior and lateral nasal pharyngeal mendosa were intact and symmetric without ulceration, mass, or granularity. Scope was now advanced distally. Visible oropharynx including lateral mendosa and tongue base was clear without lesion. Larynx and hypopharynx were examined. Larynx was intact. 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 Left cord is fixed, and right with good movement. No discrete masses or lesions in any location. Hypopharynx was clear without asymmetry. The scope was then withdrawn and removed.Shetolerated this well. Admission Lab/Radiology studies notable for: RADIOLOGIC REVIEW: CT neck from outside reviewed. Shows left sided vocal cord mass Brief Hospital Course: Jacki Madsen is a 58 y.o. female with history of Vocal cord mass who presented on 10/05/2018 for the operations listed below, which were completed without complication. The patient was admitted post- operatively for further management. Post operatively pt developed hypocalcemia which Endocrinology were consulted. Calcium levels stabilized. Pt was mobilized with PT/OT Marine tube and Tube feed teaching completed. Pt had inpt Esophagram which revealed a small leak. On day of discharge, patient had stable vital signs , with pain controlled, and tolerating tube feed diet. Pt to follow up at ENT in 1 week and 3 weeks for repeat esophogram. Please refer to operative procedure notes and daily progress notes for further detail. The patient will follow up at our ENT clinic Condition at Discharge: Stable Discharge Diagnoses: Hospital Problems Active Problems Laryngeal mass Tobacco abuse Asthma Dysphagia Anxiety Depression Hypocalcemia Squamous cell carcinoma, moderately differentiated and keratinizing Surgical Procedures: 00932 - Tracheostomy 19107 - Diagnostic microlaryngoscopy with biopsy VT LARYNGECTOMY TOTAL W/O RADICAL NECK DISSECTION [39586 (CPT)] CERVICAL LYMPHADENECTOMY (Bilateral) THYROIDECTOMY TOTAL DIRECT LARYNGOSCOPY DIAGNOSTIC TISSUE TRANSFER MUSCLE/ MYOCUTANEOUS/ FASCIOCUTANEOUS FLAP WITH VASCULAR PEDICLE - HEAD/ NECK (Bilateral) EXTRACTION TEETH 2,3,4,5,6,8,9,10,11,12,13,14,15,18,19,20,21,22,23,,24,25,26, 27,28,29,30,31 Significant Diagnostic Studies and Procedures: 10/05/2018 Surgical Pathology revealed; Final Diagnosis: A. Squamous mucosa, "left true vocal cord", biopsy: Moderately differentiated squamous cell carcinoma, keratinizing. B. 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 10/13/2018 Surgical Pathology revealed ; Final Diagnosis: A. Lymph nodes (14), "right [...] Carcinomas Primary Tumor (pT): For the Glottis pT3: Tumor limited to the larynx with vocal cord fixation and/or invasion of paraglottic space and/or inner cortex of the thyroid cartilage Regional Lymph Node (pN): pN0: No regional lymph node metastasis Distant Metastasis (pM) (required only if confirmed pathologically in this case): Not applicable Additional Pathologic Findings (select all that apply): None identified Ancillary Studies: Not applicable The pathologic stage assigned here should be regarded as provisional, as it reflects only current pathologic data and does not incorporate full knowledge of the patient's clinical status and/or prior pathology. 10/22/2018 Esophagram IMPRESSION Small linear collection of contrast within the anterior neck, cephalad to the tracheostomy, concerning for a small leak following recent laryngectomy. Consults: Dentistry and Endocrinology Patient Disposition: Home with Home Health Care Patient instructions/medications: CALCIUM Standing Status: Future Standing Exp. Date: 10/22/19 IONIZED CALCIUM Standing Status: Future Standing Exp. Date: 10/22/19 [address] Restrictions No driving while taking pain medication. Lifting Restrictions Do not lift more than 10 pounds for 2 week(s). Strenuous Activity Restrictions Please refrain from strenuous activity for 2 week(s). Report These Signs and Symptoms Please contact your doctor if you have any of the following symptoms: temperature higher than 100 degrees F, uncontrolled pain, persistent nausea and/ or vomiting, difficulty breathing, chest pain, severe abdominal pain, headache, unable to urinate, unable to have bowel movement, drainage with a foul odor or redness or swelling at incsion site Questions About Your Stay For questions or concerns regarding your hospital stay. Call [phone] Discharging attending physician: KALLI SNYDER [[id number]] Tube Feeding Isosource 1.5 bolus feeds of 250 ml (1 carton) x 6 per day with 30 ml water flush before and after each feeding and 180 ml water bolus every 6hr between feeds Home Care Instructions: *Please remember to flush/rinse tube with water or normal saline after feed. This will help prevent the tube from clogging. *Don't keep cans of formula open for more than 24 hours. *Stop feeding if you become nauseated or begin vomiting. Hold the next feeding for 1 hour. *Make sure you are sitting up during and after feeding. *Give bolus or syringe feeding over 20 minutes. Feedings given too fast can cause cramping and loose stools. Wound Care Keep wound clean and dry. Do not submerge under water. Incision Wounds: Wash hands before touching wound sites. Apply Vaseline to wounds twice per day to prevent crusting. May shower over wounds (do not soak with water). Pat wounds dry after showering. If there are blue skin stitches in your wound, they are to stay in place until your follow-up appointment. Clear- colored skin stitches will dissolve from the wounds on their own. Oral Care: may do gentle oral care with moistened sponges DO NOT swallow water. LARYNGEAL STOMA CARE CLEANING Gently wash the skin around the opening with mild soap and water and wipe dry. If your stoma is kept clean and free from secretions, your skin will not become dry or irritated. Remove your Provox Laryngeal tube at least daily and as needed and clean with Provox brush from your Provox Laryngectomy Kit with mild soap and water. Reinsert tube and secure with soft tie. You may change soft tie as needed if it becomes soiled. HME Device After your laryngectomy, the function of the nose and upper airways are lost because you are breathing through your tracheostoma instead of your nose. The air you breathe is not warmed or humidifi ed, often resulting in increased sputum production and coughing. In order to compensate for the humidifying eff ect your upper airway used to provide, you now need a Heat Moisture Exchanger (HME). The HME is placed over your stoma and held in place by an adhesive or a stomal attachment. The HME conditions and humidifi es your airway - close to what your nose once did. Most people who consistently use the Provox Heat and Moisture Exchanger (HME) 19/05 often experience fewer problems with coughing and mucus production. The HME Device is to be changed daily and to be on 19/05. HUMDIFICATION AND SALINE SPRAY Use the spray, 1 to 3 sprays into your stoma, every 2-3 hours if needed. You should not need humidification- With your HME valve on you should notice a ongoing decrease in the amount of respiratory secretions. REMOVING CRUSTS OR PLUGS OF MUCUS If there is mucus in the stoma, try to cough it out. Use your saline spray or, try applying a warm, damp cloth over the stoma. Try running hot water in a sink, lean over and through your stoma inhale the steam. A steamy shower is wonderful, but do protect your stoma with a washcloth or shower shield. Other resources on Laryngectomy Care: Laryngectomy Education the [facility] Utube site ; https://www.youQubritube.com/watch?v=RAfAMb0cnLJ . Incision Care *Keep your incision clean and dry. *May shower below level of marine stoma *Do not submerge incision in tub, pool, hot tub, or you for 4 weeks.. *Your incision should gradually look better each day. If you notice unusual swelling, redness, drainage, have increasing pain at the site, or have a fever greater than 100 degrees, notify your physician immediately. Return Appointment You have a follow up appointment at our ENT clinic in the Medical Office Building on 10/29/2018 at 200 pm with Stewart Theodore PA-C If you have any questions , need to be seen sooner or change your appointment please call [phone] M- F 8am-430 pm. If you have any questions not during office hours please call and ask for the ENT Resident community relations liaison. You have a swallow study on 11/12/2018 at 130 pm The swallow study is conducted in the Outpatient Radiology Department in the [facility]. Do not go to the Medical Office Building for this test. Upon entering the main entrance of [facility], take the main elevators to the 2nd floor. Follow the signs to Outpatient Radiology. You will need to check in and fill out appropriate paperwork, so please arrive approximately 20 minutes before your scheduled exam. You DO NOT need to check in with the Department of Otolaryngology. Please report directly to Radiology. You have a follow up appointment at our ENT clinic in the Medical Office Building on 11/12/2018 at 230 pm Twyla Quiles PA-C. If you have any questions, need to be seen sooner or change your appointment please call M-F 8am-430 pm. If you have any questions not during office hours please call [phone] and ask for the ENT Resident community relations liaison. Opioid (Narcotic) Safety Information OPIOID (NARCOTIC) PAIN MEDICATION SAFETY We care about your comfort, and believe you need opioid medications at this time to treat your pain. An opioid is a strong pain medication. It is only available by prescription for moderate to severe pain. Usually these medications are used for only a short time to treat pain, but sometimes will be prescribed for longer. Talk with your doctor or nurse about how long they expect you to need this medication. When used the right way, opioids are safe and effective medications to treat your pain, even when used for a long time. Yet, when used in the wrong way, opioids can be dangerous for you or others. Opioids do not work for everyone. Most patients do not get full relief of their pain from opioid medication; full relief of your pain may not be possible. For your safety, we ask you to follow these instructions: *Only take your opioid medication as prescribed. If your pain is not controlled with the prescribed dose, or the medication is not lasting long enough, call your doctor. *Do not break or crush your opioid medication unless your doctor or pharmacist says you can. With certain medications, this can be dangerous, and may cause . *Never share your medications with others, even if they appear to have a good reason. Never take someone else's pain medication-this is dangerous, and illegal (a crime). Overdoses and deaths have occurred. *Keep your opioid medications safe, as you would with garay, in a lock box or similar container. *Make sure your opioids are going to be secure, especially if you are around children or teens. *Talk with your doctor or pharmacist before you take other medications. *Avoid driving, operating machinery, or drinking alcohol while taking opioid pain medication. This may be unsafe. Pain medications can cause constipation. Constipation is bowel movements that are less often than normal. Stools often become very hard and difficult to pass. This may lead to stomach pain and bloating. It may also cause pain when trying to use the bathroom. Constipation may be treated with suppositories, laxatives or stool softeners. A diet high in fiber with plenty of fluids helps to maintain regular, soft bowel movements. Current Discharge Medication List START taking these medications Details acetaminophen (TYLENOL) 160 mg/5 mL oral solution 20.3 mL by Per NG tube route every 4 hours as needed. Qty: 400 mL, Refills: 0 PRESCRIPTION TYPE: Print amoxicillin/K clavulanate (AUGMENTIN) 400 mg/5 mL oral suspension Take 10.9 mL via feeding tube twice daily for 10 days. Take with food. Discard any remaining medication. Qty: 300 mL, Refills: 0 PRESCRIPTION TYPE: Print antiseptic mucus solvent 120 mL 6 mL by Tracheal Tube route every 2 hours while awake. PRESCRIPTION TYPE: No Print calcium citrate (CALCITRATE) 950 mg tab three tablets by Per NG tube route twice daily. Please take the follow calcium taper 2 TAB PO BID x 1 week THEN 2 tab PO Qday x 1 week THEN OFF Qty: 74 tablet, Refills: 0 PRESCRIPTION TYPE: Print docusate (COLACE) 50 mg/5 mL oral solution 10 mL by Per NG tube route twice daily. Qty: 500 mL, Refills: 0 PRESCRIPTION TYPE: Print ergocalciferol (vitamin D-2) (CALCIFEROL) 8,000 unit/mL oral solution Take 6.25 mL via feeding tube three times weekly. Qty: 60 mL, Refills: 1 PRESCRIPTION TYPE: Print gabapentin (NEURONTIN) 250 mg/5 mL oral solution 6 mL by Per NG tube route every 8 hours. Qty: 470 mL, Refills: 12 PRESCRIPTION TYPE: Print levothyroxine (SYNTHROID) 125 mcg tablet Take one tablet by Per NG tube route daily 30 minutes before breakfast. Qty: 30 tablet, Refills: 1 PRESCRIPTION TYPE: Print sodium chloride (SEA MIST) 0.65 % nasal spray Apply one spray to two sprays to each nostril as directed every 2 hours. Qty: 104 mL, Refills: 0 PRESCRIPTION TYPE: No Print traMADol (ULTRAM) 50 mg tablet Take one tablet to two tablets by Per NG tube route every 4 hours as needed. Qty: 40 tablet, Refills: 0 PRESCRIPTION TYPE: Print venlafaxine (EFFEXOR) 37.5 mg tablet Take one tablet by Per NG tube route twice daily with meals. Take with food. Qty: 60 tablet, Refills: 1 PRESCRIPTION TYPE: Print CONTINUE these medications which have been CHANGED or REFILLED Details pravastatin (PRAVACHOL) 40 mg tablet Take one tablet via feeding tube daily. Qty: 90 capsule, Refills: 3 PRESCRIPTION TYPE: No Print !! QUEtiapine (SEROQUEL) 200 mg tablet Take one tablet via feeding tube at bedtime daily. Take with 300 mg for a total of 500 mg daily PRESCRIPTION TYPE: No Print !! QUEtiapine (SEROQUEL) 300 mg tablet Take one tablet via feeding tube at bedtime daily. Take with 200 mg tablet for a total of 500 mg daily PRESCRIPTION TYPE: No Print !! - Potential duplicate medications found. Please discuss with provider. CONTINUE these medications which have NOT CHANGED Details nitroglycerin (NITROSTAT) 0.[address] 0.4 mg under tongue every 5 minutes as needed. PRESCRIPTION TYPE: Historical Med The following medications were removed from your list. This list includes medications discontinued this stay and those removed from your prior med list in our system desvenlafaxine succinate 25 mg Tb24 ibuprofen (MOTRIN) 800 mg tablet varenicline (CHANTIX CONTINUING MONTH BOX) 1 mg tablet Scheduled appointments: Oct 29, 2018 2:00 PM OPERATIONS LABEL CLERK Post - Op with Jacinto Theodore PA-C [facility] ([facility]) [facility] Level [address]C [address] [facility] [id number] Nov 12, 2018 1:30 PM OPERATIONS LABEL CLERK ESOPHAGRAM with GENERAL RAD [address] [facility] Radiology (Radiology) [facility] 2nd fl [address] [facility] [address] Nov 12, 2018 2:30 PM OPERATIONS LABEL CLERK Post - Op with Twyla Quiles PA-C [facility] - ENT ([facility]) [facility] Level [address]C [address] [facility] [address] Pending items needing follow up: Follow up ENT clinic Signed: PAN Campa 10/22/2018 cc: Primary Care Physician: Chris Ohara Verified Referring physicians: Chris Ohara MD Additional provider(s): ATIONS LABEL CLERK in this encounter Discharge Instructions * Discharge Instr - Diet* Heavenly Burger - 10/22/2018 8:46 AM OPERATIONS LABEL CLERK 1 carton (250 mL) of Isosource 1.5 (or Boost/Ensure PLUS) 6 times per day. Flush with 30 mL (1/2 of a syringe) before and after each bolus feed. Administer 180 mL (3 syringes) of water 4 times per day for hydration. ATIONS LABEL CLERK in this encounter Medications at Time of Discharge Start Date End Date Medication Sig Dispensed Refills 10/22/2018 acetaminophen (TYLENOL) 20.3 mL by 400 mL 0 160 mg/5 mL oral solution Per NG tube route every 4 hours as needed. 10/22/2018 calcium citrate three tablets 74 tablet 0 (CALCITRATE) 950 mg tab by Per NG tube route twice daily. Please take the follow calcium taper 2 TAB PO BID x 1 week THEN 2 tab PO Qday x 1 week THEN OFF 10/22/2018 docusate (COLACE) 50 mg/5 10 mL by Per 500 mL 0 mL oral solution NG tube route twice daily. 10/23/2018 ergocalciferol (vitamin Take 6.25 mL 60 mL 1 D-2) (CALCIFEROL) 8,000 via feeding unit/mL oral solution tube three times weekly. nitroglycerin (NITROSTAT) Place 0.4 mg 0 0.4 [...] each nostril as directed every 2 hours. 10/22/2018 venlafaxine (EFFEXOR) Take one 60 tablet 1 37.5 mg tablet tablet by Per NG tube route twice daily with meals. Take with food. 10/22/2018 11/05/2018 amoxicillin/K clavulanate Take 10.9 mL 300 mL 0 (AUGMENTIN) 400 mg/5 mL via feeding oral suspension tube twice daily for 10 days. Take with food. Discard any remaining medication. 10/22/2018 11/05/2018 antiseptic mucus solvent 6 mL by 0 120 mL Tracheal Tube route every 2 hours while awake. 10/22/2018 11/05/2018 gabapentin (NEURONTIN) 6 mL by Per 470 mL 12 250 mg/5 mL oral solution NG tube route every 8 hours. 10/22/2018 11/05/2018 levothyroxine (SYNTHROID) Take one 30 tablet 1 125 mcg tablet tablet by Per NG tube route daily 30 minutes before breakfast. 10/22/2018 11/05/2018 traMADol (ULTRAM) 50 mg Take one 40 tablet 0 tablet tablet to two tablets by Per NG tube route every 4 hours as needed. as of this encounter Progress Notes * Heavenly Burger - 10/22/2018 8:29 AM OPERATIONS LABEL CLERK CLINICAL NUTRITION Clinical Nutrition Follow-Up Summary NAME:Jacki Madsen :1960 AGE: 58 y.o. ADMISSION DATE: 10/05/2018 DAYS ADMITTED: LOS: 17 days Nutrition Assessment of Patient: Malnutrition Assessment: Does not meet criteria Current Oral Intake: NPO Estimated Calorie Needs: 7368-7950(30-35 kcal/kg desired wt) Estimated Protein Needs: 95-110(1.3-1.5g/kg desired wt) Oral Diet Order: NPO 3 Day EN Delivery (calories) Daily Average: 1250 kilocalories(58% of kcal goal) 3 Day EN Delivery (protein) Daily Average: 57 grams(60% of protein goal) Current EN Order: Isosource 1.5 bolus feeds of 250 ml (1 carton) x 6 per day with 30 ml water flush before and after each feeding and 180 ml water bolus q6hr between feeds. To provide 2250 kcal, 102 g protein and 2220 ml free water at goal. 58 yo F with PMH of HTN, asthma and uterine CA who was admitted 10/05 for awake tracheostomy, Direct microlaryngoscopy with Bx. Was taking some po after video- swallow 10/07. S/p total laryngectomy 10/13 and currently NPO with feeding tube tip at gastric outlet per KUB 10/13. Pt is tolerating bolus feeds via NGT well. Today we discussed recommendations for home EN regimen along with free H20 flushes. Pt's and spouse's questions/concerns were addressed. They denied having further questions at this time. Recommendation: Continue 250 ml (1 carton) of Isosource 1.5 (or equivalent if needed for d/c ) x 6 per day with 30 ml water flush before and after each feeding and 180 ml water bolus q6hr between feeds. To provide 2250 kcal, 102 g protein and 2220 ml free water at goal. No EN within 1 hr of Synthroid dose. Intervention / Plan: Continue to monitor tolerance/adequacy of EN regimen and adjust recs PRN. Monitor weight trends, labs, meds, GI health. Nutrition Diagnosis: Altered GI function Etiology: swallowing deficits s/p laryngectomy Signs & Symptoms: NPO with EN feeds Goals: EN tolerated and meeting >85% of nutritional needs Time Frame: Throughout Stay Status: Not met;Ongoing Nette Burger RD, LD Pager: [phone] ATIONS LABEL CLERK * HarveyKathy Edd, PLAYER DEVELOPMENT EXECUTIVE-PEDIATRIC GENETIC COUNSELOR - 10/22/2018 7:50 AM OPERATIONS LABEL CLERK JOE/HNS Progress Note Today's Date: 10/22/2018 Admission Date: 10/05/2018 LOS: 17 days Subjective No acute events overnight. No tingling or perioral numbness. Denies N/V chest pain, difficulty breathing. Remains on RA Medications Scheduled Meds: acetaminophen (TYLENOL) oral solution 650 mg 650 mg Per NG tube Q4H amoxicillin/K clavulanate (AUGMENTIN) oral suspension 875 mg 875 mg Per NG tube BID antiseptic mucus solvent 120 mL solution 1 spray 1 spray Tracheal Tube Q2H while awake calcium citrate (CALCITRATE) tablet 2,850 mg 2,850 mg Per NG tube BID docusate (COLACE) oral solution 100 mg 100 mg Per NG tube BID ergocalciferol (vitamin D-2) (CALCIFEROL) oral solution 50,000 Units 50,000 Units Oral Once per day on Fri famotidine (PEPCID) oral suspension 20 mg 20 mg Per NG tube BID gabapentin (NEURONTIN) oral solution 300 mg 300 mg Per NG tube Q8H heparin (porcine) PF syringe 5,000 Units 5,000 Units Subcutaneous Q8H levothyroxine (SYNTHROID) tablet 125 mcg 125 mcg Per NG tube QDAY 30 min before breakfast milk of magnesia (CONC) oral suspension 10 mL 10 mL Per NG tube QHS pantoprazole(#) (PROTONIX) suspension 40 mg 40 mg Per NG tube QDAY(21) pravastatin (PRAVACHOL) tablet 40 mg 40 mg Per NG tube QHS QUEtiapine (SEROQUEL) tablet 500 mg 500 mg Per NG tube QHS sodium chloride (SEA MIST) 0.65 % nasal spray 1-2 spray 1-2 spray Each Nostril Q2H venlafaxine (EFFEXOR) tablet 37.5 mg 37.5 mg Per NG tube BID w/meals Continuous Infusions: PRN and Respiratory Meds:albuterol 0.5% Q4H PRN, ALPRAZolam BID PRN, bisacodyl QDAY PRN, ipratropium bromide Q4H PRN, morphine injection syringe Q2H PRN, ondansetron (ZOFRAN) IV Q6H PRN, oxyCODONE Q4H PRN, pancrelipase 20,000 Units/ sodium bicarbonate 650 mg(#) PRN (Manager Education from Rx), prochlorperazine Q6H PRN, traMADol Q4H PRN Objective Vital Signs: Last Filed Vital Signs: 24 Hour Range BP: 90/49 (10/22 630) Temp: 36.8 C (98.2 F) (10/22 0550) Pulse: 89 (10/22 627) Respirations: 16 PER MINUTE (10/22 644) SpO2: 95 % (10/22 644) O2 Delivery: Trach Shield (10/22 550) BP: (84-112)/(40-70) Temp: [36.7 C (98.1 F)-36.9 C (98.5 F)] Pulse: [82-95] Respirations: [14 PER MINUTE-17 PER MINUTE] SpO2: [95 %-100 %] O2 Delivery: Trach Shield Intensity Pain Scale (Self Report): Asleep (10/22/18 0000) Vitals: 10/05/18 1355 10/08/18 1115 Weight: 76.4 kg (168 lb 6.9 oz) 76.2 kg (168 lb) CARLA drain output: NoneIntake/Output Summary: (Last 24 hours) Intake/Output Summary (Last 24 hours) at 10/22/2018 0750 Last data filed at 10/22/2018 0430 Gross per 24 hour Intake 2030 ml Output Net 2030 ml Stool Occurrence: 1 Physical Exam No acute deficits No significant intraoral bleeding Marine stoma pink mild crusting removed. Small area left medial stoma wound with fibrinous tissue Atos tube removed cleaned replaced. HME on. On RA Neck with stable swelling continues to improve, remains soft, no ecchymosis, incision c/d/i no fluctuance SCDs in place bilaterally Lab Review Comprehensive Metabolic Profile Lab Results Component Value Date/Time NA 138 10/21/2018 10:22 AM K 3.7 10/21/2018 10:22 AM CL 98 10/21/2018 10:22 AM CO2 29 10/21/2018 10:22 AM GAP 11 10/21/2018 10:22 AM BUN 32 (H) 10/21/2018 10:22 AM CR 0.93 10/21/2018 10:22 AM GLU 142 (H) 10/21/2018 10:22 AM Lab Results Component Value Date/Time CA 9.1 10/22/2018 05:40 AM PO4 5.4 (H) 10/21/2018 10:22 AM ALBUMIN 3.6 10/17/2018 06:01 AM GFR >60 10/21/2018 10:22 AM GFRAA >60 10/21/2018 10:22 AM CBC w/Diff Lab Results Component Value Date/Time WBC 5.7 10/22/2018 05:40 AM RBC 3.28 (L) 10/22/2018 05:40 AM HGB 10.6 (L) 10/22/2018 05:40 AM HCT 31.0 (L) 10/22/2018 05:40 AM MCV 94.6 10/22/2018 05:40 AM MCH 32.2 10/22/2018 05:40 AM MCHC 34.1 10/22/2018 05:40 AM RDW 12.9 10/22/2018 05:40 AM PLTCT 450 (H) 10/22/2018 05:40 AM MPV 7.6 10/22/2018 05:40 AM No results found for: NEUT, ANC, LYMA, ALC, LIUDMILA, AMC, EOSA, AEC, BASA, ABC Point of Care Testing (Last 24 hours) Glucose: (!) 142 (10/21/18 1022) Radiology and other Diagnostics Review: Surgical Pathology in progress 10/21/2018 Esophagram IMPRESSION Small linear collection of contrast within the anterior neck, cephalad to the tracheostomy, concerning for a small leak following recent laryngectomy. Active Hospital Problems Diagnosis Hypocalcemia Anxiety Depression Tobacco abuse Asthma Dysphagia Laryngeal mass Assessment/Plan: Jacki Madsen is a 58 y.o. female Awake tracheostomy, Direct microlaryngoscopy with Bx on 10/05. s/p Total laryngectomy without radical neck dissection, Total thyroidectomy, BMRND, Bilateral sternocleidomastoid muscle advancement rotation flaps on 10/13. NEURO: Grossly intact, pain controlled. continue current pain regimen. Anxiety / depression on equivalent home meds per NG tube. PT/OT for mobilization ENT: Continue Marine tube care, Wound incisional care. 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 S/p tooth extraction, dental following; rad onc consulted PULM: Marine stomal pink, small fibrinous area inner left stoma, Marine tube cleaned reinserted HME device on. Now on RA. Repeat exercise pulse Ox wnl. CV: HDS ID: [id number], wbc- 7.7->5.7 restarted on abx - Augmentin GI/FEN: Tolerating bolus feeds. Esophagram - noted small leak. On bowel regimen , LBM ENDO: Hypocalcemia-resolved Endo following - QD calcium labs. On Calcitrate, synthroid. : UOP adequate voiding spontaneously. PPX: SCD's, SQH, Pepcid, Protonix. DISP: Plan for discharge today 10/22 home with services. F/u 1 week ENT clinic. 3 weeks repeat Esophagram. Sawyer Kim APRN Pager [phone] ATIONS LABEL CLERK * Delon Giordano, RT - 10/22/2018 7:22 AM OPERATIONS LABEL CLERK Pt now on RA doing great ATIONS LABEL CLERK * Suyapa Lopes, GUCCI - 10/21/2018 4:43 PM OPERATIONS LABEL CLERK Pt has returned from Esophagram very upset. She writes, "The doctors won't let me leave today and my insurance won't cover me if I leave anyway. I feel forced against my will and I'm like an animal trapped in a cage. Also, I want food! I have a headache. Can I have something for my anxiety?" RN attempted to educate patient regarding the results of her esophagram and possible contraindications to food that must be addressed with her provider. RN contacted team who sent someone to educate patient and address her many concerns. Pt would not accept feeds until 1600. She has refused medication temporarily as well as vitals and telemetry for majority of afternoon. She also is refusing insertion and incision site care. She states, "I am very upset. Physically I am fine but mentally I am not." She repeated this several times as RN attempted to ask questions and direct conversation in a way that a plan could be made and all her concerns addressed. MD made aware of her refusals as well as the delay in medication administration , missing vitals, feeds and lack of airway and incision care/cleaning and telemetry coverage for this shift. Pt requests Chantix. Says she takes it at home. PEDIATRIC GENETIC COUNSELOR text paged regarding request. 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 -Postoperative hypocalcemia 10/15/2018 : her calcium was 7.3, ionized calcium 0.76, PTH 4 - PTH improved to 8.1 on 10/17/18 - No history of head or neck radiation Post surgical hypothyroidism Vitamin D deficiency Recommendations/Plan: Calcium improved to optimal range and PTH improved over 10 today. Discontinue calcitriol 0.5 mcg today. Continue calcium citrate at current dose at discharge 600 mg elemental twice daily Continue calcium in 1 weeks or when returns to ENT follow up Cont levothyroxine 125mcg daily and she will need thyroid function test ( TSH and Ft 4) in 4 weeks. Continue vitamin D 50,000 units three times / week replacement for total of three month and reassess vit D at that time. Will schedule follow up in endocrine clinic but will need to coordinate to same day with ENT due to distance. __ Subjective: Jacki Madsen is a 58 y.o. female. No acute events overnight. No symptoms of hypocalcemia episodes. She is feeling well and will be going home today. On ROS:denies chest pain, SOB, N&V Objective: Vital Signs: Last Filed Vital Signs: 24 Hour Range BP: 109/56 (10/21 544) Temp: 36.4 C (97.6 F) (10/21 544) Pulse: 76 (10/21 544) Respirations: 17 PER MINUTE (10/21 544) SpO2: 94 % (10/21 544) O2 Delivery: None (Room Air) (10/21 544) BP: (94-117)/(56-68) Temp: [36.4 C (97.6 F)-36.9 C (98.4 F)] Pulse: [76-87] Respirations: [16 PER MINUTE-17 PER MINUTE] SpO2: [92 %-99 %] O2 Delivery: None (Room Air) Intake/Output Summary (Last 24 hours) at 10/21/2018 1309 Last data filed at 10/21/2018 0900 Gross per 24 hour Intake 1570 ml Output Net 1570 ml Physical Examination: GEN: Alert, oriented, no apparent distress HEENT: No scleral icterus/pallor, corpack in placed RESP: breathing comfortably EXT: No edema Labs: Recent Labs 10/18/18 1800 10/19/18 0618 10/20/18 0616 10/21/18 1022 NA -- 137 137 138 K -- 4.2 3.8 3.7 CL -- 102 100 98 CO2 -- 25 29 29 GAP -- 10 8 11 BUN -- 19 25 32* CR -- 0.81 0.75 0.93 GLU -- 90 129* 142* CA 9.2 8.8 9.1 9.3 MG -- 2.0 2.3 2.1 PO4 -- 5.3* 4.9* 5.4* Recent Labs 10/19/18 0618 10/20/18 0616 WBC 7.4 7.7 HGB 11.3* 10.7* HCT 32.8* 31.7* PLTCT 370 424* Lipid Profile: No results found for: CHOL, TRIG, HDL, LDL, VLDL Estimated Creatinine Clearance: 69.3 mL/min (based on SCr of 0.93 mg/dL). Vitals: 10/05/18 1355 10/08/18 1115 Weight: 76.4 kg (168 lb 6.9 oz) 76.2 kg (168 lb) No results for input(s): PHART, PO2ART in the last 72 hours. Invalid input(s): PC02A Thyroid Studies Lab Results Component Value Date/Time TSH 0.680 10/06/2018 08:45 AM No results found for: FREET3, Z2DFYMSOZ, THYBINDGLB Meds acetaminophen 650 mg Per NG tube Q4H amoxicillin/K clavulanate 875 mg Per NG tube BID antiseptic mucus solvent 1 spray Tracheal Tube Q2H while awake calcitriol 0.5 mcg Per [place] Tube QDAY calcium citrate 2,850 mg Per NG tube BID docusate 100 mg Per NG tube BID ergocalciferol (vitamin D-2) 50,000 Units Oral Once per day on Fri famotidine 20 mg Per NG tube BID gabapentin 300 mg Per NG tube Q8H heparin (porcine) 5,000 Units Subcutaneous Q8H levothyroxine 125 mcg Per NG tube QDAY 30 min before breakfast milk of magnesia (CONC) 10 mL Per NG tube QHS pantoprazole(#) 40 mg Per NG tube QDAY(21) pravastatin 40 mg Per NG tube QHS QUEtiapine 500 mg Per NG tube QHS sodium chloride 1-2 spray Each Nostril Q2H venlafaxine 37.5 mg Per NG tube BID w/meals IV MEDS Prnalbuterol 0.5% Q4H PRN, bisacodyl QDAY PRN, ipratropium bromide Q4H PRN, morphine injection syringe Q2H PRN, ondansetron (ZOFRAN) IV Q6H PRN, oxyCODONE Q4H PRN, pancrelipase 20,000 Units/ sodium bicarbonate 650 mg(#) PRN ( Manager Education from Rx), prochlorperazine Q6H PRN, traMADol Q4H PRN Rosy Begum MD Pager # [phone] 10/21/2018 ATIONS LABEL CLERK * Kathy Kim APRN-PEDIATRIC GENETIC COUNSELOR - 10/21/2018 7:22 AM OPERATIONS LABEL CLERK JOE/HNS Progress Note Today's Date: 10/21/2018 Admission Date: 10/05/2018 LOS: 16 days Subjective No acute events overnight. No tingling or perioral numbness. Denies N/V chest pain, difficulty breathing. Remains on RA Medications Scheduled Meds: acetaminophen (TYLENOL) oral solution 650 mg 650 mg Per NG tube Q4H antiseptic mucus solvent 120 mL solution 1 spray 1 spray Tracheal Tube Q2H while awake calcitriol (ROCALTROL) oral solution 0.5 mcg 0.5 mcg Per Corp[place] Tube QDAY calcium citrate (CALCITRATE) tablet 2,850 mg 2,850 mg Per NG tube BID docusate (COLACE) oral solution 100 mg 100 mg Per NG tube BID ergocalciferol (vitamin D-2) (CALCIFEROL) oral solution 50,000 Units 50,000 Units Oral Once per day on Fri famotidine (PEPCID) oral suspension 20 mg 20 mg Per NG tube BID gabapentin (NEURONTIN) oral solution 300 mg 300 mg Per NG tube Q8H heparin (porcine) PF syringe 5,000 Units 5,000 Units Subcutaneous Q8H levothyroxine (SYNTHROID) tablet 125 mcg 125 mcg Per NG tube QDAY 30 min before breakfast milk of magnesia (CONC) oral suspension 10 mL 10 mL Per NG tube QHS pantoprazole(#) (PROTONIX) suspension 40 mg 40 mg Per NG tube QDAY(21) pravastatin (PRAVACHOL) tablet 40 mg 40 mg Per NG tube QHS QUEtiapine (SEROQUEL) tablet 500 mg 500 mg Per NG tube QHS sodium chloride (SEA MIST) 0.65 % nasal spray 1-2 spray 1-2 spray Each Nostril Q2H venlafaxine (EFFEXOR) tablet 37.5 mg 37.5 mg Per NG tube BID w/meals Continuous Infusions: PRN and Respiratory Meds:albuterol 0.5% Q4H PRN, bisacodyl QDAY PRN, ipratropium bromide Q4H PRN, morphine injection syringe Q2H PRN, ondansetron ( ZOFRAN) IV Q6H PRN, oxyCODONE Q4H PRN, pancrelipase 20,000 Units/ sodium bicarbonate 650 mg(#) PRN (Manager Education from Rx), prochlorperazine Q6H PRN, traMADol Q4H PRN Objective Vital Signs: Last Filed Vital Signs: 24 Hour Range BP: 109/56 (10/21 544) Temp: 36.4 C (97.6 F) (10/21 544) Pulse: 76 (10/21 544) Respirations: 17 PER MINUTE (10/21 544) SpO2: 94 % (10/21 544) O2 Delivery: None (Room Air) (10/21 544) BP: (94-117)/(56-68) Temp: [36.4 C (97.6 F)-37.1 C (98.8 F)] Pulse: [76-97] Respirations: [16 PER MINUTE-17 PER MINUTE] SpO2: [92 %-100 %] O2 Delivery: None (Room Air) Intensity Pain Scale (Self Report): 3 (10/21/18 0400) Vitals: 10/05/18 1355 10/08/18 1115 Weight: 76.4 kg (168 lb 6.9 oz) 76.2 kg (168 lb) CARLA drain output: NoneIntake/Output Summary: (Last 24 hours) Intake/Output Summary (Last 24 hours) at 10/21/2018 0722 Last data filed at 10/21/2018 0630 Gross per 24 hour Intake 1780 ml Output Net 1780 ml Stool Occurrence: 1 Physical Exam No acute deficits No significant intraoral bleeding Marine stoma pink mild crusting removed. Small area right medial stoma wound with fibrinous tissue Atos tube removed cleaned replaced. HME on. On RA Neck with stable swelling continues to improve, remains soft, no ecchymosis, incision c/d/i no fluctuance SCDs in place bilaterally Lab Review Comprehensive Metabolic Profile Lab Results Component Value Date/Time NA 137 10/20/2018 06:16 AM K 3.8 10/20/2018 06:16 AM CL 100 10/20/2018 06:16 AM CO2 29 10/20/2018 06:16 AM GAP 8 10/20/2018 06:16 AM BUN 25 10/20/2018 06:16 AM CR 0.75 10/20/2018 06:16 AM GLU 129 (H) 10/20/2018 06:16 AM Lab Results Component Value Date/Time CA 9.1 10/20/2018 06:16 AM PO4 4.9 (H) 10/20/2018 06:16 AM ALBUMIN 3.6 10/17/2018 06:01 AM GFR >60 10/20/2018 06:16 AM GFRAA >60 10/20/2018 06:16 AM CBC w/Diff Lab Results Component Value Date/Time WBC 7.7 10/20/2018 06:16 AM RBC 3.35 (L) 10/20/2018 06:16 AM HGB 10.7 (L) 10/20/2018 06:16 AM HCT 31.7 (L) 10/20/2018 06:16 AM MCV 94.9 10/20/2018 06:16 AM MCH 32.1 10/20/2018 06:16 AM MCHC 33.8 10/20/2018 06:16 AM RDW 13.0 10/20/2018 06:16 AM PLTCT 424 (H) 10/20/2018 06:16 AM MPV 7.7 10/20/2018 06:16 AM No results found for: NEUT, ANC, LYMA, ALC, LIUDMILA, AMC, EOSA, AEC, BASA, ABC Point of Care Testing (Last 24 hours) Radiology and other Diagnostics Review: Surgical Pathology in progress Active Hospital Problems Diagnosis Hypocalcemia Anxiety Depression Tobacco abuse Asthma Dysphagia Laryngeal mass Assessment/Plan: Jacki Madsen is a 58 y.o. female Awake tracheostomy, Direct microlaryngoscopy with Bx on 10/05. s/p Total laryngectomy without radical neck dissection, Total thyroidectomy, BMRND, Bilateral sternocleidomastoid muscle advancement rotation flaps on 10/13. NEURO: Grossly intact, pain controlled. continue current pain regimen. Anxiety / depression on equivalent home meds per NG tube. PT/OT for mobilization ENT: Continue Marine tube care, Wound incisional care, neck sutures removed. 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 S/p tooth extraction, dental following; rad onc consulted PULM: Marine stomal pink, mild crusting removed, Marine tube cleaned reinserted HME device on. Now on RA. Repeat exercise pulse Ox wnl. CV: HDS ID: Afebrile, completed ppx abx GI/FEN: Tolerating bolus feeds. Esophagram today 10/21. On bowel regimen, LBM ENDO: Hypocalcemia- stable calcium and Ical levels. Endo following - QD calcium labs. On Calcitrate, Rocaltrol synthroid. Will follow up with Endo regarding discharge recs. : UOP adequate voiding spontaneously. PPX: SCD's, SQH, Pepcid, Protonix. DISP: Ongoing discussion with CM/SW regarding dispo plans. Plan for discharge today 10/21 after Esophagram. Sawyer Kim APRN Pager [phone] ATIONS LABEL CLERK * Saul Nina RT - 10/20/2018 1:00 PM OPERATIONS LABEL CLERK RT Exercise Oximetry Note NAME:Jacki Madsen :1960 AGE: 58 y.o. ADMISSION DATE: 10/05/2018 DAYS ADMITTED: LOS: 15 days Date performed: 10/20/18 Time performed: 1235 Time walked: 6 minutes At Rest While Awake Results Room air at rest while awake: SpO2=97% Oxygen dose required at rest while awake: 0 lpm with resulting SpO2=97% If required oxygen dose with rest is greater than 4 lpm: n/a With Exercise Results: Room air SpO2 with exercise, if needed:=99% Oxygen required with exercise: 0 lpm with resulting SpO2=99% If required oxygen dose with exercise is greater than 4 lpm: n/a Comments: pt has a laritube and capped with a HME. 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 -Postoperative hypocalcemia 10/15/2018 : her calcium was 7.3, ionized calcium 0.76, PTH 4 - PTH improved to 8.1 on 10/17/18 - No history of head or neck radiation Post surgical hypothyroidism Vitamin D deficiency Recommendations/Plan: Calcium improved to optimal range Continue calcitriol 0.5 mcg once daily, will check PTH in AM (ordered) to see if able to stop calcitriol improved Reduce calcium citrate 600 mg elemental from three times to twice daily Continue calcium daily check Cont levothyroxine 125mcg daily Repeat thyroid function test (TSH and Ft 4) in 4 weeks. Continue vitamin D 50,000 units three times / week replacement. Will schedule follow up in endocrine clinic but will need to coordinate to same day with ENT due to distance. __ Subjective: Jacki Madsen is a 58 y.o. female. No acute events overnight. No symptoms of hypocalcemia episodes. She is feeling well and excited to go home in AM. On ROS:denies chest pain, SOB, N&V Objective: Vital Signs: Last Filed Vital Signs: 24 Hour Range BP: 105/64 (10/20 09) Temp: 37.1 C (98.8 F) (10/20 09) Pulse: 82 (10/20 0943) Respirations: 16 PER MINUTE (10/20 09) SpO2: 94 % (10/20 09) O2 Delivery: None (Room Air) (10/20 09) SpO2 Pulse: 90 (10/19 1245) BP: (105-125)/(60-83) Temp: [36.3 C (97.3 F)-37.1 C (98.8 F)] Pulse: [82-102] Respirations: [15 PER MINUTE-23 PER MINUTE] SpO2: [91 %-100 %] O2 Delivery: None (Room Air) Intake/Output Summary (Last 24 hours) at 10/20/2018 1104 Last data filed at 10/20/2018 1039 Gross per 24 hour Intake 1740 ml Output Net 1740 ml Physical Examination: GEN: Alert, oriented, no apparent distress HEENT: No scleral icterus/pallor, corpack in placed RESP: breathing comfortably EXT: No edema Labs: Recent Labs 10/17/18 1800 10/17/18 2220 10/18/18 0610 10/18/18 1800 10/19/18 0618 10/20/18 0616 NA -- -- 136* -- 137 137 K -- -- 3.8 -- 4.2 3.8 CL -- -- 101 -- 102 100 CO2 -- -- 26 -- 25 29 GAP -- -- 9 -- 10 8 BUN -- -- 17 -- 19 25 CR -- -- 0.74 -- 0.81 0.75 GLU -- -- 128* -- 90 129* CA 9.1 8.8 8.8 9.2 8.8 9.1 MG -- -- 1.8 -- 2.0 2.3 PO4 -- -- 4.8* -- 5.3* 4.9* Recent Labs 10/18/18 0610 10/19/18 0618 10/20/18 0616 WBC 7.8 7.4 7.7 HGB 11.4* 11.3* 10.7* HCT 33.6* 32.8* 31.7* PLTCT 346 370 424* Lipid Profile: No results found for: CHOL, TRIG, HDL, LDL, VLDL Estimated Creatinine Clearance: 85.9 mL/min (based on SCr of 0.75 mg/dL). Vitals: 10/05/18 1355 10/08/18 1115 Weight: 76.4 kg (168 lb 6.9 oz) 76.2 kg (168 lb) No results for input(s): PHART, PO2ART in the last 72 hours. Invalid input(s): PC02A Thyroid Studies Lab Results Component Value Date/Time TSH 0.680 10/06/2018 08:45 AM No results found for: FREET3, F4WGELIEB, THYBINDGLB Meds acetaminophen 650 mg Per NG tube Q4H antiseptic mucus solvent 1 spray Tracheal Tube Q2H while awake calcitriol 0.5 mcg Per [place] Tube QDAY calcium citrate 2,850 mg Per NG tube BID docusate 100 mg Per NG tube BID ergocalciferol (vitamin D-2) 50,000 Units Oral Once per day on Fri famotidine 20 mg Per NG tube BID gabapentin 300 mg Per NG tube Q8H heparin (porcine) 5,000 Units Subcutaneous Q8H levothyroxine 125 mcg Per NG tube QDAY 30 min before breakfast magnesium oxide 800 mg Per NG tube BID milk of magnesia (CONC) 10 mL Per NG tube QHS pantoprazole(#) 40 mg Per NG tube QDAY(21) pravastatin 40 mg Per NG tube QHS QUEtiapine 500 mg Per NG tube QHS sodium chloride 1-2 spray Each Nostril Q2H venlafaxine 37.5 mg Per NG tube BID w/meals IV MEDS Prnalbuterol 0.5% Q4H PRN, bisacodyl QDAY PRN, ipratropium bromide Q4H PRN, morphine injection syringe Q2H PRN, ondansetron (ZOFRAN) IV Q6H PRN, oxyCODONE Q4H PRN, pancrelipase 20,000 Units/ sodium bicarbonate 650 mg(#) PRN ( Manager Education from Rx), prochlorperazine Q6H PRN, traMADol Q4H PRN Rosy Begum MD Pager # [phone] 10/20/2018 ATIONS LABEL CLERK * King Mancuso RN - 10/20/2018 8:30 AM OPERATIONS LABEL CLERK Labs drawn from R PIV. Labeled at bedside and sent. ATIONS LABEL CLERK * Terry Martinez MD - 10/20/2018 7:22 AM OPERATIONS LABEL CLERK JOE/HNS Progress Note Today's Date: 10/20/2018 Admission Date: 10/05/2018 LOS: 15 days Subjective No acute events overnight. No tingling or perioral numbness. Doing well since dental extraction. No difficulty breathing. Medications Scheduled Meds: acetaminophen (TYLENOL) oral solution 650 mg 650 mg Per NG tube Q4H antiseptic mucus solvent 120 mL solution 1 spray 1 spray Tracheal Tube Q2H while awake calcitriol (ROCALTROL) oral solution 0.5 mcg 0.5 mcg Per [place] Tube QDAY calcium citrate (CALCITRATE) tablet 2,850 mg 2,850 mg Per NG tube TID docusate (COLACE) oral solution 100 mg 100 mg Per NG tube BID ergocalciferol (vitamin D-2) (CALCIFEROL) oral solution 50,000 Units 50,000 Units Oral Once per day on Fri famotidine (PEPCID) oral suspension 20 mg 20 mg Per NG tube BID gabapentin (NEURONTIN) oral solution 300 mg 300 mg Per NG tube Q8H heparin (porcine) PF syringe 5,000 Units 5,000 Units Subcutaneous Q8H levothyroxine (SYNTHROID) tablet 125 mcg 125 mcg Per NG tube QDAY 30 min before breakfast magnesium oxide (MAG-OX) tablet 800 mg 800 mg Per NG tube BID milk of magnesia (CONC) oral suspension 10 mL 10 mL Per NG tube QHS pantoprazole(#) (PROTONIX) suspension 40 mg 40 mg Per NG tube QDAY(21) pravastatin (PRAVACHOL) tablet 40 mg 40 mg Per NG tube QHS QUEtiapine (SEROQUEL) tablet 500 mg 500 mg Per NG tube QHS sodium chloride (SEA MIST) 0.65 % nasal spray 1-2 spray 1-2 spray Each Nostril Q2H venlafaxine (EFFEXOR) tablet 37.5 mg 37.5 mg Per NG tube BID w/meals Continuous Infusions: PRN and Respiratory Meds:albuterol 0.5% Q4H PRN, bisacodyl QDAY PRN, ipratropium bromide Q4H PRN, morphine injection syringe Q2H PRN, ondansetron ( ZOFRAN) IV Q6H PRN, oxyCODONE Q4H PRN, pancrelipase 20,000 Units/ sodium bicarbonate 650 mg(#) PRN (Manager Education from Rx), prochlorperazine Q6H PRN, traMADol Q4H PRN Objective Vital Signs: Last Filed Vital Signs: 24 Hour Range BP: 105/60 (10/20 050) Temp: 36.5 C (97.7 F) (10/20 050) Pulse: 85 (10/20 0639) Respirations: 16 PER MINUTE (10/20 06) SpO2: 95 % (10/20 0639) O2 Delivery: None (Room Air) (10/20 050) SpO2 Pulse: 90 (10/19 1245) BP: (105-125)/(60-83) Temp: [36.3 C (97.3 F)-37.5 C (99.5 F)] Pulse: [85-102] Respirations: [15 PER MINUTE-23 PER MINUTE] SpO2: [91 %-100 %] O2 Delivery: None (Room Air) Intensity Pain Scale (Self Report): Asleep (10/20/18 0038) Vitals: 10/05/18 1355 10/08/18 1115 Weight: 76.4 kg (168 lb 6.9 oz) 76.2 kg (168 lb) CARLA drain output: NoneIntake/Output Summary: (Last 24 hours) Intake/Output Summary (Last 24 hours) at 10/20/2018 0722 Last data filed at 10/20/2018 0330 Gross per 24 hour Intake 1430 ml Output Net 1430 ml Stool Occurrence: 1(per patient report) Physical Exam No acute deficits No significant intraoral bleeding Marine stoma pink mild crusting removed. Small area right medial stoma wound with fibrinous tissue Atos tube removed cleaned replaced. HME on. On RA Neck with stable swelling, soft, no ecchymosis, incision c/d/i with sutures, no fluctuance SCDs in place bilaterally Lab Review Comprehensive Metabolic Profile Lab Results Component Value Date/Time NA 137 10/19/2018 06:18 AM K 4.2 10/19/2018 06:18 AM CL 102 10/19/2018 06:18 AM CO2 25 10/19/2018 06:18 AM GAP 10 10/19/2018 06:18 AM BUN 19 10/19/2018 06:18 AM CR 0.81 10/19/2018 06:18 AM GLU 90 10/19/2018 06:18 AM Lab Results Component Value Date/Time CA 8.8 10/19/2018 06:18 AM PO4 5.3 (H) 10/19/2018 06:18 AM ALBUMIN 3.6 10/17/2018 06:01 AM GFR >60 10/19/2018 06:18 AM GFRAA >60 10/19/2018 06:18 AM CBC w/Diff Lab Results Component Value Date/Time WBC 7.7 10/20/2018 06:16 AM RBC 3.35 (L) 10/20/2018 06:16 AM HGB 10.7 (L) 10/20/2018 06:16 AM HCT 31.7 (L) 10/20/2018 06:16 AM MCV 94.9 10/20/2018 06:16 AM MCH 32.1 10/20/2018 06:16 AM MCHC 33.8 10/20/2018 06:16 AM RDW 13.0 10/20/2018 06:16 AM PLTCT 424 (H) 10/20/2018 06:16 AM MPV 7.7 10/20/2018 06:16 AM No results found for: NEUT, ANC, LYMA, ALC, LIUDMILA, AMC, EOSA, AEC, BASA, ABC Point of Care Testing (Last 24 hours) Radiology and other Diagnostics Review: Surgical Pathology in progress Active Hospital Problems Diagnosis Hypocalcemia Anxiety Depression Tobacco abuse Asthma Dysphagia Laryngeal mass Assessment/Plan: Jacki Madsen is a 58 y.o. female Awake tracheostomy, Direct microlaryngoscopy with Bx on 10/05. s/p Total laryngectomy without radical neck dissection, Total thyroidectomy, BMRND, Bilateral sternocleidomastoid muscle advancement rotation flaps on 10/13. NEURO: Grossly intact, pain controlled. continue current pain regimen. Anxiety / depression on equivalent home meds per NG tube. PT/OT for mobilization ENT: Continue Marine tube care, Wound incisional care. [place] FLIGHT ENGINEER INSTRUCTOR following for s/ p Marine voicing; supra-incisional edema noted and stable. S/p extraction, dental following; rad onc consulted PULM: Marine stomal pink, mild crusting removed, Marine tube cleaned reinserted HME device on. 28 % intermittent desats. Exercise pulse Ox showing home O2 required. Discussed with CM. Hx of needing O2 at night. CV: HDS ID: Afebrile, completed ppx abx GI/FEN:tolerating bolus feeds. Plan for Esophagram 10/21. On bowel regimen, LBM ENDO: Hypocalcemia- stable calcium and Ical levels. Endo following - QD calcium labs. On Calcitrate, synthroid : UOP adequate voiding spontaneously. PPX: SCD's, SQH, Pepcid, Protonix. DISP: Continue inpt status. Ongoing discussion with CM/SW regarding dispo plans. Possibly discharge 10/21. Terry Martinez MD PGY-2 ATIONS LABEL CLERK * Georgia Waller RT - 10/20/2018 6:44 AM OPERATIONS LABEL CLERK RT Adult Assessment Note NAME:Jacki Madsen :1960 AGE: 58 y.o. ADMISSION DATE: 10/05/2018 DAYS ADMITTED: LOS: 15 days RT Treatment Plan: Protocol Plan: Medications Albuterol: Neb PRN Protocol Plan: Procedures Tracheostomy Suction: PRN Oxygen/Humidity: O2 to keep SpO2 > 92% Monitoring: Pulse oximetry BID & PRN Additional Comments: Impressions of the patient: Pt stable in bed, uses whiteboard to communicate needs with staff. Intervention(s)/outcome(s): Continue trach sxn PRN and O2 monitor. 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 -Postoperative hypocalcemia 10/15/2018 : her calcium was 7.3, ionized calcium 0.76, PTH 4 - PTH improved to 8.1 on 10/17/18 - No history of head or neck radiation - patient is asymptomatic Post surgical hypothyroidism Vitamin D deficiency Recommendations/Plan: Calcium improved to optimal range consistently Reduce calcitriol 0.5 mcg oncedaily Continue calcium citrate 600mg elemental three times daily Reduce calcium check to once daily Cont levothyroxine 125mcg daily Repeat thyroid function test (TSH and Ft4) in 4 weeks. Continue vitamin D 50,000 units three times / week replacement. Will schedule follow up in endocrine clinic but will need to coordinate to same day with ENT due to distance. __ Subjective: Jacki Madsen is a 58 y.o. female. No acute events overnight. No symptoms of hypocalcemia episodes. Had tooth extraction this am and tolerated procedure well. On ROS:denies chest pain, SOB, N&V Objective: Vital Signs: Last Filed Vital Signs: 24 Hour Range BP: 110/66 (10/19 1255) Temp: 37.1 C (98.8 F) (10/19 1255) Pulse: 89 (10/19 1255) Respirations: 23 PER MINUTE (10/19 1255) SpO2: 95 % (10/19 1255) O2 Delivery: None (Room Air) (10/19 1255) SpO2 Pulse: 90 (10/19 1245) BP: (92-125)/(65-76) Temp: [36.7 C (98 F)-38.1 C (100.6 F)] Pulse: [74-102] Respirations: [15 PER MINUTE-23 PER MINUTE] SpO2: [91 %-99 %] O2 Delivery: None (Room Air) Intake/Output Summary (Last 24 hours) at 10/19/2018 1506 Last data filed at 10/19/2018 1223 Gross per 24 hour Intake 750 ml Output Net 750 ml Physical Examination: GEN: Alert, oriented, no apparent distress HEENT: No scleral icterus/pallor, corpack in placed RESP: breathing comfortably EXT: No edema Labs: Recent Labs 10/16/18 2200 10/17/18 0600 10/17/18 0601 10/17/18 1800 10/17/18 2220 10/18/18 0610 10/18/18 1800 10/19/18 0618 NA -- -- 137 -- -- 136* -- 137 K -- -- 3.5 -- -- 3.8 -- 4.2 CL -- -- 100 -- -- 101 -- 102 CO2 -- -- 26 -- -- 26 -- 25 GAP -- -- 11 -- -- 9 -- 10 BUN -- -- 13 -- -- 17 -- 19 CR -- -- 0.72 -- -- 0.74 -- 0.81 GLU -- -- 100 -- -- 128* -- 90 CA 7.7* 8.3* 8.5 9.1 8.8 8.8 9.2 8.8 ALBUMIN -- -- 3.6 -- -- -- -- -- MG -- -- 2.0 -- -- 1.8 -- 2.0 PO4 -- -- 4.7* -- -- 4.8* -- 5.3* Recent Labs 10/17/18 0601 10/18/18 0610 10/19/18 0618 WBC 9.3 7.8 7.4 HGB 11.3* 11.4* 11.3* HCT 33.6* 33.6* 32.8* PLTCT [phone] Lipid Profile: No results found for: CHOL, TRIG, HDL, LDL, VLDL Estimated Creatinine Clearance: 79.6 mL/min (based on SCr of 0.81 mg/dL). Vitals: 10/05/18 1355 10/08/18 1115 Weight: 76.4 kg (168 lb 6.9 oz) 76.2 kg (168 lb) No results for input(s): PHART, PO2ART in the last 72 hours. Invalid input(s): PC02A Thyroid Studies Lab Results Component Value Date/Time TSH 0.680 10/06/2018 08:45 AM No results found for: FREET3, [id number], THYBINDGLB Meds acetaminophen 650 mg Per NG tube Q4H antiseptic mucus solvent 1 spray Tracheal Tube Q2H while awake [START ON 10/20/2018] calcitriol 0.5 mcg Per Corpak Tube QDAY calcium citrate 2,850 mg Per NG tube TID docusate 100 mg Per NG tube BID ergocalciferol (vitamin D-2) 50,000 Units Oral Once per day on Fri famotidine 20 mg Per NG tube BID gabapentin 300 mg Per NG tube Q8H heparin (porcine) 5,000 Units Subcutaneous Q8H levothyroxine 125 mcg Per NG tube QDAY 30 min before breakfast milk of magnesia (CONC) 10 mL Per NG tube QHS pantoprazole(#) 40 mg Per NG tube QDAY(21) pravastatin 40 mg Per NG tube QHS QUEtiapine 500 mg Per NG tube QHS sodium chloride 1-2 spray Each Nostril Q2H venlafaxine 37.5 mg Per NG tube BID w/meals IV MEDS Prnalbuterol 0.5% Q4H PRN, bisacodyl QDAY PRN, ipratropium bromide Q4H PRN, morphine injection syringe Q2H PRN, ondansetron (ZOFRAN) IV Q6H PRN, oxyCODONE Q4H PRN, pancrelipase 20,000 Units/ sodium bicarbonate 650 mg(#) PRN ( Manager Education from Rx), prochlorperazine Q6H PRN, traMADol Q4H PRN Rosy Begum MD Pager # [phone] 10/19/2018 ATIONS LABEL CLERK Cheyenne Sue - 10/19/2018 11:07 AM OPERATIONS LABEL CLERK SPEECH-LANGUAGE PATHOLOGY Attempted to see patient for ongoing speech therapy however unable to see pt as she was off unit for procedure/dental extraction. Therapist: Cheyenne Hernandez MA, L/CCC-FLIGHT ENGINEER INSTRUCTOR Voalte: [id number] Date: 10/19/2018 Mely Prakash DDS - 10/19/2018 9:58 AM OPERATIONS LABEL CLERK Dental Progress Note I met with Ms. Madsen, and her boyfriend, prior to surgery. We discussed alternatives to treatment including but not limited to, extraction of only the lower teeth and any carious teeth that are a potential source of infection. She is concerned that she will be unable to care for her teeth adequately and prevent infection. She stated she wanted to ask her boyfriend what he thought. They both agreed to have all teeth extracted knowing the possible complications and sequela. All questions were answered. Written and verbal consent was obtained. Mely Norris DDS [phone] pgr ATIONS LABEL CLERK * Kathy Kim, PLAYER DEVELOPMENT EXECUTIVE-PEDIATRIC GENETIC COUNSELOR - 10/19/2018 8:06 AM OPERATIONS LABEL CLERK JOE/HNS Progress Note Today's Date: 10/19/2018 Admission Date: 10/05/2018 LOS: 14 days Subjective No acute events overnight. No tingling or perioral numbness. Medications Scheduled Meds: acetaminophen (TYLENOL) oral solution 650 mg 650 mg Per NG tube Q4H antiseptic mucus solvent 120 mL solution 1 spray 1 spray Tracheal Tube Q2H while awake calcitriol (ROCALTROL) oral solution 0.5 mcg 0.5 mcg Per Corpak Tube BID calcium citrate (CALCITRATE) tablet 2,850 mg 2,850 mg Per NG tube TID docusate (COLACE) oral solution 100 mg 100 mg Per NG tube BID ergocalciferol (vitamin D-2) (CALCIFEROL) oral solution 50,000 Units 50,000 Units Oral Once per day on Fri famotidine (PEPCID) oral suspension 20 mg 20 mg Per NG tube BID gabapentin (NEURONTIN) oral solution 300 mg 300 mg Per NG tube Q8H heparin (porcine) PF syringe 5,000 Units 5,000 Units Subcutaneous Q8H levothyroxine (SYNTHROID) tablet 125 mcg 125 mcg Per NG tube QDAY 30 min before breakfast milk of magnesia (CONC) oral suspension 10 mL 10 mL Per NG tube QHS pantoprazole(#) (PROTONIX) suspension 40 mg 40 mg Per NG tube QDAY(21) pravastatin (PRAVACHOL) tablet 40 mg 40 mg Per NG tube QHS QUEtiapine (SEROQUEL) tablet 500 mg 500 mg Per NG tube QHS sodium chloride (SEA MIST) 0.65 % nasal spray 1-2 spray 1-2 spray Each Nostril Q2H venlafaxine (EFFEXOR) tablet 37.5 mg 37.5 mg Per NG tube BID w/meals Continuous Infusions: PRN and Respiratory Meds:albuterol 0.5% Q4H PRN, bisacodyl QDAY PRN, ipratropium bromide Q4H PRN, morphine injection syringe Q2H PRN, ondansetron ( ZOFRAN) IV Q6H PRN, oxyCODONE Q4H PRN, pancrelipase 20,000 Units/ sodium bicarbonate 650 mg(#) PRN (Manager Education from Rx), prochlorperazine Q6H PRN, traMADol Q4H PRN Objective Vital Signs: Last Filed Vital Signs: 24 Hour Range BP: 92/71 (10/19 501) Temp: 36.7 C (98 F) (10/19 501) Pulse: 85 (10/19 501) Respirations: 18 PER MINUTE (10/19 501) SpO2: 99 % (10/19 501) O2 Delivery: None (Room Air) (10/19 501) BP: (87-111)/(54-76) Temp: [36.6 C (97.9 F)-38.1 C (100.6 F)] Pulse: [74-101] Respirations: [16 PER MINUTE-18 PER MINUTE] SpO2: [94 %-99 %] O2 Delivery: None (Room Air) Intensity Pain Scale (Self Report): 4 (10/18/18 2150) Vitals: 10/05/18 1355 10/08/18 1115 Weight: 76.4 kg (168 lb 6.9 oz) 76.2 kg (168 lb) CARLA drain output: None Intake/Output Summary: (Last 24 hours) Intake/Output Summary (Last 24 hours) at 10/19/2018 0853 Last data filed at 10/18/2018 2200 Gross per 24 hour Intake 1150 ml Output Net 1150 ml Stool Occurrence: 0 Physical Exam No acute deficits Marine stoma pink mild crusting removed. Small area right medial stoma wound with fibrinous tissue Atos tube removed cleaned replaced. HME on. On RA Neck with stable swelling, soft, no ecchymosis, incision c/d/i with sutures, no fluctuance SCDs in place bilaterally Lab Review Comprehensive Metabolic Profile Lab Results Component Value Date/Time NA 137 10/19/2018 06:18 AM K 4.2 10/19/2018 06:18 AM CL 102 10/19/2018 06:18 AM CO2 25 10/19/2018 06:18 AM GAP 10 10/19/2018 06:18 AM BUN 19 10/19/2018 06:18 AM CR 0.81 10/19/2018 06:18 AM GLU 90 10/19/2018 06:18 AM Lab Results Component Value Date/Time CA 8.8 10/19/2018 06:18 AM PO4 5.3 (H) 10/19/2018 06:18 AM ALBUMIN 3.6 10/17/2018 06:01 AM GFR >60 10/19/2018 06:18 AM GFRAA >60 10/19/2018 06:18 AM CBC w/Diff Lab Results Component Value Date/Time WBC 7.4 10/19/2018 06:18 AM RBC 3.46 (L) 10/19/2018 06:18 AM HGB 11.3 (L) 10/19/2018 06:18 AM HCT 32.8 (L) 10/19/2018 06:18 AM MCV 94.7 10/19/2018 06:18 AM MCH 32.7 10/19/2018 06:18 AM MCHC 34.5 10/19/2018 06:18 AM RDW 12.8 10/19/2018 06:18 AM PLTCT 370 10/19/2018 06:18 AM MPV 7.5 10/19/2018 06:18 AM No results found for: NEUT, ANC, LYMA, ALC, LIUDMILA, AMC, EOSA, AEC, BASA, ABC Point of Care Testing (Last 24 hours) Glucose: 90 (10/19/18 0618) Radiology and other Diagnostics Review: Surgical Pathology in p[progress Active Hospital Problems Diagnosis Hypocalcemia Anxiety Depression Tobacco abuse Asthma Dysphagia Laryngeal mass Assessment/Plan: Jacki Madsen is a 58 y.o. female Awake tracheostomy, Direct microlaryngoscopy with Bx on 10/05. s/p Total laryngectomy without radical neck dissection, Total thyroidectomy, BMRND, Bilateral sternocleidomastoid muscle advancement rotation flaps on 10/13. NEURO: Grossly intact, pain controlled. continue current pain regimen. Anxiety / depression on equivalent home meds per NG tube. PT/OT for mobilization ENT: Continue Marine tube care, Wound incisional care. [place] FLIGHT ENGINEER INSTRUCTOR following for s/ p Marine voicing; supra-incisional edema noted and stable. Spoke with Dental- will do full dental extraction later this morning, remains NPO. Radiation oncology consulted PULM: Marine stomal pink, mild crusting removed, Marine tube cleaned reinserted HME device on. Requiring 28 % desats intermittently. Exercise pulse Ox showing home O2 required. Discussed with CM. Hx of needing O2 at night. CV: HDS ID: Afebrile, completed ppx abx GI/FEN:tolerating bolus feeds. NPO this am for tooth extraction. Plan for Esophagram 10/21. On bowel regimen, LBM ENDO: Hypocalcemia- improving calcium and Ical levels. Endo following - discussed with Endo with transition to QD calcium labs. On Calcitrate, synthroid : UOP adequate voiding spontaneously. PPX: SCD's, SQH, Pepcid, Protonix. DISP: Continue inpt status. Ongoing discussion with CM/SW regarding dispo plans. Possibly discharge 10/21. 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 -Postoperative hypocalcemia 10/15/2018 : her calcium was 7.3, ionized calcium 0.76, PTH 4 - PTH improved to 8.1 on 10/17/18 - No history of head or neck radiation - patient is asymptomatic Post surgical hypothyroidism Vitamin D deficiency Recommendations/Plan: Most recent ionized calcium and total calcium improved to optimal range Cont calcitriol 0.5 mcg twice daily Decrease calcium citrate 600mg elemental three times daily Cont to monitor calcium every 12 hr today and hope to reduce once daily if stable Cont levothyroxine 125mcg daily Repeat thyroid function test in 4 weeks. Continue vitamin D 50,000 units three times / week replacement. Will schedule follow up in endocrine clinic when she is close to discharge. __ Subjective: Jacki Madsen is a 58 y.o. female. No acute events overnight. No symptoms of hypocalcemia episodes. On ROS:denies chest pain, SOB, N&V Objective: Vital Signs: Last Filed Vital Signs: 24 Hour Range BP: 103/54 (10/18 926) Temp: 36.6 C (97.9 F) (10/18 926) Pulse: 79 (10/18 926) Respirations: 16 PER MINUTE (10/18 926) SpO2: 94 % (10/18 926) O2 Delivery: None (Room Air) (10/18 926) BP: (94-125)/(49-75) Temp: [36.4 C (97.6 F)-37.1 C (98.8 F)] Pulse: [78-113] Respirations: [14 PER MINUTE-18 PER MINUTE] SpO2: [90 %-99 %] O2 Delivery: None (Room Air) Intake/Output Summary (Last 24 hours) at 10/18/2018 1039 Last data filed at 10/18/2018 0527 Gross per 24 hour Intake 2070 ml Output 1556 ml Net 514 ml Physical Examination: GEN: Alert, oriented, no apparent distress HEENT: No scleral icterus/pallor, corpack in placed RESP: breathing comfortably EXT: No edema Labs: Recent Labs 10/15/18 1108 10/15/18 2024 10/16/18 0607 10/16/18 1418 10/16/18 2200 10/17/18 0600 10/17/18 0601 10/17/18 1800 10/17/18 2220 10/18/18 0610 NA -- -- 139 -- -- -- 137 -- -- 136* K -- -- 3.6 -- -- -- 3.5 -- -- 3.8 CL -- -- 103 -- -- -- 100 -- -- 101 CO2 -- -- 30 -- -- -- 26 -- -- 26 GAP -- -- 6 -- -- -- 11 -- -- 9 BUN -- -- 12 -- -- -- 13 -- -- 17 CR -- -- 0.82 -- -- -- 0.72 -- -- 0.74 GLU -- -- 129* -- -- -- 100 -- -- 128* CA 7.8* 7.8* 7.9* 8.4* 7.7* 8.3* 8.5 9.1 8.8 8.8 ALBUMIN -- -- -- -- -- -- 3.6 -- -- -- MG -- -- 1.8 -- -- -- 2.0 -- -- 1.8 PO4 -- -- 2.7 -- -- -- 4.7* -- -- 4.8* Recent Labs 10/16/18 0607 10/17/18 0601 10/18/18 0610 WBC 8.2 9.3 7.8 HGB 10.9* 11.3* 11.4* HCT 31.8* 33.6* 33.6* PLTCT 288 375 346 Lipid Profile: No results found for: CHOL, TRIG, HDL, LDL, VLDL Estimated Creatinine Clearance: 87.1 mL/min (based on SCr of 0.74 mg/dL). Vitals: 10/05/18 1355 10/08/18 1115 Weight: 76.4 kg (168 lb 6.9 oz) 76.2 kg (168 lb) No results for input(s): PHART, PO2ART in the last 72 hours. Invalid input(s): PC02A Thyroid Studies Lab Results Component Value Date/Time TSH 0.680 10/06/2018 08:45 AM No results found for: FREET3, [id number], THYBINDGLB Meds acetaminophen 650 mg Per NG tube Q4H ampicillin/sulbactam (UNASYN) IVPB 3 g Intravenous Q6H* antiseptic mucus solvent 1 spray Tracheal Tube Q2H while awake calcitriol 0.5 mcg Per Corpak Tube BID calcium citrate 2,850 mg Per NG tube TID docusate 100 mg Per NG tube BID ergocalciferol (vitamin D-2) 50,000 Units Oral Once per day on Fri famotidine 20 mg Per NG tube BID gabapentin 300 mg Per NG tube Q8H heparin (porcine) 5,000 Units Subcutaneous Q8H levothyroxine 125 mcg Per NG tube QDAY 30 min before breakfast magnesium oxide 400 mg Oral BID magnesium sulfate 1 g Intravenous ONCE milk of magnesia (CONC) 10 mL Per NG tube QHS pantoprazole(#) 40 mg Per NG tube QDAY(21) pravastatin 40 mg Per NG tube QHS QUEtiapine 500 mg Per NG tube QHS sodium chloride 1-2 spray Each Nostril Q2H venlafaxine 37.5 mg Per NG tube BID w/meals IV MEDS Prnalbuterol 0.5% Q4H PRN, bisacodyl QDAY PRN, ipratropium bromide Q4H PRN, morphine injection syringe Q2H PRN, ondansetron (ZOFRAN) IV Q6H PRN, oxyCODONE Q4H PRN, pancrelipase 20,000 Units/ sodium bicarbonate 650 mg(#) PRN ( Manager Education from Rx), prochlorperazine Q6H PRN, traMADol Q4H PRN Rosy Begum MD Pager # [phone] 10/18/2018 ATIONS LABEL CLERK * Terry Martinez MD - 10/18/2018 7:45 AM OPERATIONS LABEL CLERK JOE/HNS Progress Note Today's Date: 10/18/2018 Admission Date: 10/05/2018 LOS: 13 days Subjective No acute events overnight. Calcium stable. No tingling or perioral numbness. Supraincisional swelling improving. Medications Scheduled Meds: acetaminophen (TYLENOL) oral solution 650 mg 650 mg Per NG tube Q4H ampicillin/sulbactam (UNASYN) 3 g in sodium chloride 0.9% (NS) 100 mL IVPB (MB+ ) 3 g Intravenous Q6H* antiseptic mucus solvent 120 mL solution 1 spray 1 spray Tracheal Tube Q2H while awake calcitriol (ROCALTROL) oral solution 0.5 mcg 0.5 mcg Per Corpak Tube BID calcium citrate (CALCITRATE) tablet 2,850 mg 2,850 mg Per NG tube Q6H docusate (COLACE) oral solution 100 mg 100 mg Per NG tube BID ergocalciferol (vitamin D-2) (CALCIFEROL) oral solution 50,000 Units 50,000 Units Oral Once per day on Fri famotidine (PEPCID) oral suspension 20 mg 20 mg Per NG tube BID gabapentin (NEURONTIN) oral solution 300 mg 300 mg Per NG tube Q8H heparin (porcine) PF syringe 5,000 Units 5,000 Units Subcutaneous Q8H levothyroxine (SYNTHROID) tablet 125 mcg 125 mcg Per NG tube QDAY 30 min before breakfast milk of magnesia (CONC) oral suspension 10 mL 10 mL Per NG tube QHS pantoprazole(#) (PROTONIX) suspension 40 mg 40 mg Per NG tube QDAY(21) pravastatin (PRAVACHOL) tablet 40 mg 40 mg Per NG tube QHS QUEtiapine (SEROQUEL) tablet 500 mg 500 mg Per NG tube QHS sodium chloride (SEA MIST) 0.65 % nasal spray 1-2 spray 1-2 spray Each Nostril Q2H venlafaxine (EFFEXOR) tablet 37.5 mg 37.5 mg Per NG tube BID w/meals Continuous Infusions: PRN and Respiratory Meds:albuterol 0.5% Q4H PRN, bisacodyl QDAY PRN, ipratropium bromide Q4H PRN, morphine injection syringe Q2H PRN, ondansetron ( ZOFRAN) IV Q6H PRN, oxyCODONE Q4H PRN, pancrelipase 20,000 Units/ sodium bicarbonate 650 mg(#) PRN (Manager Education from Rx), prochlorperazine Q6H PRN, traMADol Q4H PRN Objective Vital Signs: Last Filed Vital Signs: 24 Hour Range BP: 94/49 (10/18 443) Temp: 36.4 C (97.6 F) (10/18 443) Pulse: 95 (10/18 706) Respirations: 18 PER MINUTE (10/18 706) SpO2: 99 % (10/18 706) O2 Delivery: None (Room Air) (10/18 443) BP: (94-125)/(49-75) Temp: [36.4 C (97.6 F)-37.1 C (98.8 F)] Pulse: [78-113] Respirations: [14 PER MINUTE-18 PER MINUTE] SpO2: [89 %-99 %] O2 Delivery: None (Room Air) Intensity Pain Scale (Self Report): 4 (10/17/18 1920) Vitals: 10/05/18 1355 10/08/18 1115 Weight: 76.4 kg (168 lb 6.9 oz) 76.2 kg (168 lb) CARLA drain output: CARLA drain output noted and reviewed Intake/Output Summary: (Last 24 hours) Intake/Output Summary (Last 24 hours) at 10/18/2018 0745 Last data filed at 10/18/2018 0527 Gross per 24 hour Intake 2070 ml Output 1556 ml Net 514 ml Stool Occurrence: 0 Physical Exam No acute deficits Marine stoma pink mild crusting removed. Small area right medial stoma wound with fibrinous tissue Atos tube removed cleaned replaced. HME on. On RA Neck with stable swelling, soft, no ecchymosis, incision c/d/i with sutures, no fluctuance CARLA drain removed on rounds SCDs in place bilaterally Lab Review Comprehensive Metabolic Profile Lab Results Component Value Date/Time NA 136 (L) 10/18/2018 06:10 AM K 3.8 10/18/2018 06:10 AM CL 101 10/18/2018 06:10 AM CO2 26 10/18/2018 06:10 AM GAP 9 10/18/2018 06:10 AM BUN 17 10/18/2018 06:10 AM CR 0.74 10/18/2018 06:10 AM GLU 128 (H) 10/18/2018 06:10 AM Lab Results Component Value Date/Time CA 8.8 10/18/2018 06:10 AM PO4 4.8 (H) 10/18/2018 06:10 AM ALBUMIN 3.6 10/17/2018 06:01 AM GFR >60 10/18/2018 06:10 AM GFRAA >60 10/18/2018 06:10 AM CBC w/Diff Lab Results Component Value Date/Time WBC 7.8 10/18/2018 06:10 AM RBC 3.54 (L) 10/18/2018 06:10 AM HGB 11.4 (L) 10/18/2018 06:10 AM HCT 33.6 (L) 10/18/2018 06:10 AM MCV 95.0 10/18/2018 06:10 AM MCH 32.2 10/18/2018 06:10 AM MCHC 33.9 10/18/2018 06:10 AM RDW 13.1 10/18/2018 06:10 AM PLTCT 346 10/18/2018 06:10 AM MPV 7.8 10/18/2018 06:10 AM No results found for: NEUT, ANC, LYMA, ALC, LIUDMILA, AMC, EOSA, AEC, BASA, ABC Point of Care Testing (Last 24 hours) Glucose: (!) 128 (10/18/18 0610) Radiology and other Diagnostics Review: Surgical Pathology in p[progress 10/06 -CT Neck / Chest IMPRESSION 1. Subcutaneous air and pneumomediastinum centered [...] Correlate with troponin evaluation and patient symptoms. IMPRESSION 1. Interval tracheostomy and biopsy of a left glottic mass. Irregular enhancing ulcerated left glottic mass measuring up to 2.1 cm. Primarily left supraglottic extension into the left paraglottic fat with uplifting of the left false cord. No discrete cartilage invasion or subglottic extension is identified. 2. No cervical adenopathy. 10/06 PET IMPRESSION 1. Hypermetabolic left glottic mass, most compatible with a primary neoplasm. 2. No hypermetabolic regional nadeen or distant metastases. 3. Prior tracheostomy with mildly increased FDG uptake about the tracheostomy tube, likely postoperative in nature. Extensive pneumomediastinum and subcutaneous emphysema extending into the lower neck, likely postoperative. 4. Bibasilar atelectasis and/or pneumonitis. Active Hospital Problems Diagnosis Anxiety Depression Tobacco abuse Asthma Dysphagia Laryngeal mass Assessment/Plan: Jacki Madsen is a 58 y.o. female Awake tracheostomy, Direct microlaryngoscopy with Bx on 10/05. s/p Total laryngectomy without radical neck dissection, Total thyroidectomy, BMRND, Bilateral sternocleidomastoid muscle advancement rotation flaps on 10/13. NEURO: Grossly intact, pain controlled. continue current pain regimen. Anxiety / depression on equivalent home meds per NG tube PT/OT for mobilization ENT: Continue Marine tube care, CARLA drain maintenance, Wound incisional care. 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 - Dental consulted for possible radiation, recommending extractions, will consult rad onc as field of radiation was requested by dental -Will consult radiation oncology PULM: Marine stomal pink, mild crusting removed, Marine tube cleaned reinserted HME device on. On RA but having desats intermittently; - Walking O2 desat. Will need home O2. Hx of needing O2 at night. CV: HDS ID: Afebrile,on ppx IV Unasyn GI/FEN:Bolus feeds. Plan for Esophagram 10/21. ENDO: Hypocalcemia but calcium stabilized with iCal WNL; Endo consulted. BID calcium draws. On Calcitrate, synthroid : UOP adequate voiding spontaneously. PPX: SCD's, SQH, Pepcid, Protonix, IV Unasyn DISP: Continue inpt status. Ongoing discussion with CM/SW regarding dispo plans. Terry Martinez MD PGY-2 ATIONS LABEL CLERK * Karen Haney, RT - 10/17/2018 10:30 PM OPERATIONS LABEL CLERK RT Adult Assessment Note NAME:Jacki Madsen :1960 AGE: 58 y.o. ADMISSION DATE: 10/05/2018 DAYS ADMITTED: LOS: 12 days RT Treatment Plan: Protocol Plan: Medications Albuterol: Neb PRN Protocol Plan: Procedures Tracheostomy Suction: PRN PAP: Place a nursing order for "IS Q1h While Awake" for any of Lung Expansion indicators Oxygen/Humidity: O2 to keep SpO2 > 92% Monitoring: Pulse oximetry BID & PRN Comment: Asthma Hx, Pt wears HME during the day Additional Comments: Impressions of the patient: Pt is resting. Intervention(s)/outcome(s): Pt is currently wearing HME during the day and trach shield with oxygen at night. Continue neb PRN. Encourage IS. Trach sxn PRN. Vital Signs: Pulse: Pulse: 113 RR: Respirations: 15 PER MINUTE SpO2: SpO2: 92 % O2 Device: Liter Flow: O2%: O2 Percent: 28 % Breath Sounds: All Breath Sounds: Clear (implies normal) Respiratory Effort: Respiratory Effort: Non-Labored ATIONS LABEL CLERK * Rosy Begum MD - 10/17/2018 1:04 PM OPERATIONS LABEL CLERK Endocrinology Progress Note Jacki Madsen Date of Admission: 10/05/2018 Impression: 1. 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 -Postoperative hypocalcemia 10/15/2018 : her calcium was 7.3, ionized calcium 0.76, PTH 4 - No history of head or neck radiation - patient is asymptomatic Post surgical hypothyroidism Vitamin D deficiency Recommendations/Plan: Most recent ionized calcium today and total calcium is also improving. Cont calcitriol 0.5 mcg twice daily Increase calcium citrate back to 600mg elemental four times daily Cont to monitor calcium every 8 hr today and hope to reduce twice daily tomorrow then once daily after that Cont levothyroxine 125mcg daily Repeat thyroid function test in 4 weeks. Continue vitamin D 50,000 units three times / week replacement. Will schedule follow up in endocrine clinic when she is close to discharge. __ Subjective: Jacki Madsen is a 58 y.o. female. No acute events overnight. No symptoms of hypocalcemia episodes. On ROS:denies chest pain, SOB, N&V Objective: Vital Signs: Last Filed Vital Signs: 24 Hour Range BP: 111/59 (10/17 936) Temp: 37.1 C (98.7 F) (10/17 936) Pulse: 89 (10/17 936) Respirations: 16 PER MINUTE (10/17 936) SpO2: 89 % (10/17 936) O2 Delivery: None (Room Air) (10/17 936) BP: (97-122)/(55-76) Temp: [36.9 C (98.4 F)-37.3 C (99.2 F)] Pulse: [86-117] Respirations: [16 PER MINUTE-18 PER MINUTE] SpO2: [86 %-98 %] O2 Delivery: None (Room Air) Intake/Output Summary (Last 24 hours) at 10/17/2018 1304 Last data filed at 10/17/2018 1053 Gross per 24 hour Intake 1380 ml Output 1754 ml Net -374 ml Physical Examination: GEN: Alert, oriented, no apparent distress HEENT: No scleral icterus/pallor, corpack in placed RESP: breathing comfortably EXT: No edema Labs: Recent Labs 10/14/18 1538 10/14/18 1815 10/14/18 2253 10/15/18 0315 10/15/18 1108 10/15/18 2024 10/16/18 0607 10/16/18 1418 10/16/18 2200 10/17/18 0600 10/17/18 0601 NA -- -- -- 138 -- -- 139 -- -- -- 137 K -- -- -- 4.0 -- -- 3.6 -- -- -- 3.5 CL -- -- -- 105 -- -- 103 -- -- -- 100 CO2 -- -- -- 26 -- -- 30 -- -- -- 26 GAP -- -- -- 7 -- -- 6 -- -- -- 11 BUN -- -- -- 10 -- -- 12 -- -- -- 13 CR -- -- -- 0.77 -- -- 0.82 -- -- -- 0.72 GLU -- -- -- 104* -- -- 129* -- -- -- 100 CA 7.6* 7.2* 7.5* 7.3* 7.8* 7.8* 7.9* 8.4* 7.7* 8.3* 8.5 ALBUMIN -- -- -- -- -- -- -- -- -- -- 3.6 MG -- -- -- 1.9 -- -- 1.8 -- -- -- 2.0 PO4 -- -- -- 2.8 -- -- 2.7 -- -- -- 4.7* Recent Labs 10/15/18 0315 10/16/18 0607 10/17/18 0601 WBC 9.0 8.2 9.3 HGB 10.4* 10.9* 11.3* HCT 30.5* 31.8* 33.6* PLTCT 232 288 375 Lipid Profile: No results found for: CHOL, TRIG, HDL, LDL, VLDL Estimated Creatinine Clearance: 89.5 mL/min (based on SCr of 0.72 mg/dL). Vitals: 10/05/18 1355 10/08/18 1115 Weight: 76.4 kg (168 lb 6.9 oz) 76.2 kg (168 lb) No results for input(s): PHART, PO2ART in the last 72 hours. Invalid input(s): PC02A Thyroid Studies Lab Results Component Value Date/Time TSH 0.680 10/06/2018 08:45 AM No results found for: FREET3, [id number], THYBINDGLB Meds acetaminophen 650 mg Per NG tube Q4H ampicillin/sulbactam (UNASYN) IVPB 3 g Intravenous Q6H* antiseptic mucus solvent 1 spray Tracheal Tube Q2H while awake calcitriol 0.5 mcg Per Corpak Tube BID calcium citrate 2,850 mg Per NG tube Q6H docusate 100 mg Per NG tube BID ergocalciferol (vitamin D-2) 50,000 Units Oral Once per day on Fri famotidine 20 mg Per NG tube BID gabapentin 300 mg Per NG tube Q8H heparin (porcine) 5,000 Units Subcutaneous Q8H levothyroxine 125 mcg Per NG tube QDAY 30 min before breakfast milk of magnesia (CONC) 10 mL Per NG tube QHS pantoprazole(#) 40 mg Per NG tube QDAY() pravastatin 40 mg Per NG tube QHS QUEtiapine 500 mg Per NG tube QHS sodium chloride 1-2 spray Each Nostril Q2H venlafaxine 37.5 mg Per NG tube BID w/meals IV MEDS Prnalbuterol 0.5% Q4H PRN, bisacodyl QDAY PRN, ipratropium bromide Q4H PRN, morphine injection syringe Q2H PRN, ondansetron (ZOFRAN) IV Q6H PRN, oxyCODONE Q4H PRN, pancrelipase 20,000 Units/ sodium bicarbonate 650 mg(#) PRN ( Manager Education from Rx), prochlorperazine Q6H PRN, traMADol Q4H PRN Rosy Begum MD Pager # [phone] 10/17/2018 ATIONS LABEL CLERK * AmberjanetDerian Trinidad - 10/17/2018 6:49 AM OPERATIONS LABEL CLERK JOE/HNS Progress Note Today's Date: 10/17/2018 Admission Date: 10/05/2018 LOS: 12 days Subjective No acute events overnight. Calcium stable. No tingling or perioral numbness. Supraincisional swelling stable. Medications Scheduled Meds: acetaminophen (TYLENOL) oral solution 650 mg 650 mg Per NG tube Q4H ampicillin/sulbactam (UNASYN) 3 g in sodium chloride 0.9% (NS) 100 mL IVPB (MB+ ) 3 g Intravenous Q6H* antiseptic mucus solvent 120 mL solution 1 spray 1 spray Tracheal Tube Q2H while awake calcitriol (ROCALTROL) oral solution 0.5 mcg 0.5 mcg Per Corpak Tube BID calcium citrate (CALCITRATE) tablet 2,850 mg 2,850 mg Per NG tube Q6H docusate (COLACE) oral solution 100 mg 100 mg Per NG tube BID ergocalciferol (vitamin D-2) (CALCIFEROL) oral solution 50,000 Units 50,000 Units Oral Once per day on Fri famotidine (PEPCID) oral suspension 20 mg 20 mg Per NG tube BID gabapentin (NEURONTIN) oral solution 300 mg 300 mg Per NG tube Q8H heparin (porcine) PF syringe 5,000 Units 5,000 Units Subcutaneous Q8H levothyroxine (SYNTHROID) tablet 125 mcg 125 mcg Per NG tube QDAY 30 min before breakfast magnesium sulfate 1 g/D5W 100 mL IVPB 1 g Intravenous ONCE milk of magnesia (CONC) oral suspension 10 mL 10 mL Per NG tube QHS pantoprazole(#) (PROTONIX) suspension 40 mg 40 mg Per NG tube QDAY(21) potassium phosphate (K-PHOS ORIGINAL) dispersable tablet 2 tablet 2 tablet Oral TID pravastatin (PRAVACHOL) tablet 40 mg 40 mg Per NG tube QHS QUEtiapine (SEROQUEL) tablet 500 mg 500 mg Per NG tube QHS sodium chloride (SEA MIST) 0.65 % nasal spray 1-2 spray 1-2 spray Each Nostril Q2H venlafaxine (EFFEXOR) tablet 37.5 mg 37.5 mg Per NG tube BID w/meals Continuous Infusions: PRN and Respiratory Meds:albuterol 0.5% Q4H PRN, bisacodyl QDAY PRN, ipratropium bromide Q4H PRN, morphine injection syringe Q2H PRN, ondansetron ( ZOFRAN) IV Q6H PRN, oxyCODONE Q4H PRN, pancrelipase 20,000 Units/ sodium bicarbonate 650 mg(#) PRN (Manager Education from Rx), prochlorperazine Q6H PRN, traMADol Q4H PRN Objective Vital Signs: Last Filed Vital Signs: 24 Hour Range BP: 99/55 (10/17 632) Temp: 37 C (98.6 F) (10/17 632) Pulse: 92 (10/17 632) Respirations: 16 PER MINUTE (10/17 632) SpO2: 98 % (10/17 632) O2 Delivery: None (Room Air) (10/17 632) BP: (97-122)/(55-76) Temp: [36.9 C (98.4 F)-37.3 C (99.2 F)] Pulse: [86-117] Respirations: [16 PER MINUTE-18 PER MINUTE] SpO2: [86 %-98 %] O2 Delivery: None (Room Air) Intensity Pain Scale (Self Report): 5 (10/17/18 0630) Vitals: 10/05/18 1355 10/08/18 1115 Weight: 76.4 kg (168 lb 6.9 oz) 76.2 kg (168 lb) CARLA drain output: CARLA drain output noted and reviewed Intake/Output Summary: (Last 24 hours) Intake/Output Summary (Last 24 hours) at 10/17/2018 0649 Last data filed at 10/17/2018 0630 Gross per 24 hour Intake 1380 ml Output 1209 ml Net 171 ml Stool Occurrence: 0 Physical Exam No acute deficits Marine stoma pink mild crusting removed. Small area right medial stoma wound with fibrinous tissue Atos tube removed cleaned replaced. HME on. On RA Neck with stable swelling, soft, no eccymiosis, incision c/d/i with sutures, no fluctuance CARLA drain holding bulb suction with SS drainage, minimal output. SCDs in place bilaterally Lab Review Comprehensive Metabolic Profile Lab Results Component Value Date/Time NA 139 10/16/2018 06:07 AM K 3.6 10/16/2018 06:07 AM CL 103 10/16/2018 06:07 AM CO2 30 10/16/2018 06:07 AM GAP 6 10/16/2018 06:07 AM BUN 12 10/16/2018 06:07 AM CR 0.82 10/16/2018 06:07 AM GLU 129 (H) 10/16/2018 06:07 AM Lab Results Component Value Date/Time CA 7.7 (L) 10/16/2018 10:00 PM PO4 2.7 10/16/2018 06:07 AM ALBUMIN 4.0 10/06/2018 08:45 AM GFR >60 10/16/2018 06:07 AM GFRAA >60 10/16/2018 06:07 AM CBC w/Diff Lab Results Component Value Date/Time WBC 8.2 10/16/2018 06:07 AM RBC 3.37 (L) 10/16/2018 06:07 AM HGB 10.9 (L) 10/16/2018 06:07 AM HCT 31.8 (L) 10/16/2018 06:07 AM MCV 94.5 10/16/2018 06:07 AM MCH 32.2 10/16/2018 06:07 AM MCHC 34.1 10/16/2018 06:07 AM RDW 12.8 10/16/2018 06:07 AM PLTCT 288 10/16/2018 06:07 AM MPV 7.3 10/16/2018 06:07 AM No results found for: NEUT, ANC, LYMA, ALC, LIUDMILA, AMC, EOSA, AEC, BASA, ABC Point of Care Testing (Last 24 hours) Radiology and other Diagnostics Review: Surgical Pathology in p[progress 10/06 -CT Neck / Chest IMPRESSION 1. Subcutaneous air and pneumomediastinum centered [...] Correlate with troponin evaluation and patient symptoms. IMPRESSION 1. Interval tracheostomy and biopsy of a left glottic mass. Irregular enhancing ulcerated left glottic mass measuring up to 2.1 cm. Primarily left supraglottic extension into the left paraglottic fat with uplifting of the left false cord. No discrete cartilage invasion or subglottic extension is identified. 2. No cervical adenopathy. 10/06 PET IMPRESSION 1. Hypermetabolic left glottic mass, most compatible with a primary neoplasm. 2. No hypermetabolic regional nadeen or distant metastases. 3. Prior tracheostomy with mildly increased FDG uptake about the tracheostomy tube, likely postoperative in nature. Extensive pneumomediastinum and subcutaneous emphysema extending into the lower neck, likely postoperative. 4. Bibasilar atelectasis and/or pneumonitis. Active Hospital Problems Diagnosis Anxiety Depression Tobacco abuse Asthma Dysphagia Laryngeal mass Assessment/Plan: Jacki Madsen is a 58 y.o. female Awake tracheostomy, Direct microlaryngoscopy with Bx on 10/05. s/p Total laryngectomy without radical neck dissection, Total thyroidectomy, BMRND, Bilateral sternocleidomastoid muscle advancement rotation flaps on 10/13. NEURO: Grossly intact, pain controlled. continue current pain regimen. Anxiety / depression on equivalent home meds per NG tube PT/OT for mobilization ENT: Continue Marine tube care, CARLA drain maintenance, Wound incisional care. 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 - Dental consulted for possible radiation, will need all teeth extracted PULM: Marine stomal pink, mild crusting removed, Marine tube cleaned reinserted HME device on. On RA but having desats intermittently; - Walking O2 desat. Will need home O2. Hx of needing O2 at night. CV: HDS ID: Afebrile,on ppx IV Unasyn GI/FEN:Bolus feeds. Plan for Esophagram 10/21. ENDO: Hypocalcemia but calcium stabilized with iCal WNL; Endo consulted. Continue Q8 Calcium's. On Calcitrate, synthroid : UOP adequate voiding spontaneously. PPX: SCD's, SQH, Pepcid, Protonix, IV Unasyn DISP: Continue inpt status. Ongoing discussion with CM/SW regarding dispo plans. 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 - Postoperative hypocalcemia 10/15/2018 : her calcium was 7.3, ionized calcium 0.76, PTH 4 - No history of head or neck radiation - patient is asymptomatic Post surgical hypothyroidism Vitamin D deficiency Recommendations/Plan: Most recent ionized calcium today was normal 1.02. Total calcium is also improving. Check albumin in am. Cont calcitriol 0.5 mcg twice daily Change calcium citrate to 600mg elemental three times daily Cont to monitor calcium twice daily tomorrow then once daily after that Cont levothyroxine 125mcg daily Repeat thyroid function test in 6 weeks. Agree with vitamin D replacement. Will schedule follow up in endocrine clinic when she is close to discharge. Discussed with primary team Subjective Jacki Madsen is a 58 y.o. female. Patient complained about headache. Otherwise she reported feeling the same. No numbness or tingling. On ROS: No f/c, n/v, soa Objective Vital Signs: Last Filed Vital Signs: 24 Hour Range BP: 122/76 (10/16 1830) Temp: 36.9 C (98.4 F) (10/16 1830) Pulse: 92 (10/16 1830) Respirations: 16 PER MINUTE (10/16 1830) SpO2: 92 % (10/16 1830) O2 Delivery: None (Room Air) (10/16 1830) BP: (93-122)/(52-76) Temp: [36.9 C (98.4 F)-37.4 C (99.3 F)] Pulse: [88-103] Respirations: [16 PER MINUTE-18 PER MINUTE] SpO2: [92 %-98 %] O2 Delivery: None (Room Air) Intake/Output Summary (Last 24 hours) at 10/16/20182099 Last data filed at 10/16/20182010 Gross per 24 hour Intake 770 ml Output 809 ml Net -39 ml PHYSICAL EXAMINATION General: Awake, Alert, Oriented Cardiovascular: regular Pulmonary: trach in place Extremities: No cyanosis or edema noted LABS: Point of Care Testing (Last 24 hours) No results for input(s): GLUPOC in the last 72 hours. Recent Labs 10/13/18 2330 10/14/18 0547 10/14/18 1030 10/14/18 1538 10/14/18 1815 10/14/18 2253 10/15/18 0315 10/15/18 1108 10/15/18 2024 10/16/18 0607 10/16/18 1418 NA -- 140 -- -- -- -- 138 -- -- 139 -- K -- 3.7 -- -- -- -- 4.0 -- -- 3.6 -- CL -- 106 -- -- -- -- 105 -- -- 103 -- CO2 -- 26 -- -- -- -- 26 -- -- 30 -- GAP -- 8 -- -- -- -- 7 -- -- 6 -- BUN -- 12 -- -- -- -- 10 -- -- 12 -- CR -- 0.87 -- -- -- -- 0.77 -- -- 0.82 -- GLU -- 114* -- -- -- -- 104* -- -- 129* -- CA 7.7* 8.1* 7.8* 7.6* 7.2* 7.5* 7.3* 7.8* 7.8* 7.9* 8.4* MG -- 2.1 -- -- -- -- 1.9 -- -- 1.8 -- PO4 -- 3.3 -- -- -- -- 2.8 -- -- 2.7 -- Recent Labs 10/14/18 0547 10/15/18 0315 10/16/18 0607 WBC 8.0 9.0 8.2 HGB 11.1* 10.4* 10.9* HCT 32.2* 30.5* 31.8* PLTCT 260 232 288 Estimated Creatinine Clearance: 78.6 mL/min (based on SCr of 0.82 mg/dL). Vitals: 10/05/18 1355 10/08/18 1115 Weight: 76.4 kg (168 lb 6.9 oz) 76.2 kg (168 lb) Thyroid Studies Lab Results Component Value Date/Time TSH 0.680 10/06/2018 08:45 AM No results found for: FREET3, [id number], THYBINDGLB MEDS acetaminophen 650 mg Per NG tube Q4H ampicillin/sulbactam (UNASYN) IVPB 3 g Intravenous Q6H* antiseptic mucus solvent 1 spray Tracheal Tube Q2H while awake calcitriol 0.5 mcg Per Corpak Tube BID calcium citrate 2,850 mg Per NG tube QID (See eMAR) docusate 100 mg Per NG tube BID ergocalciferol (vitamin D-2) 50,000 Units Oral Once per day on Fri famotidine 20 mg Per NG tube BID gabapentin 300 mg Per NG tube Q8H heparin (porcine) 5,000 Units Subcutaneous Q8H levothyroxine 125 mcg Per NG tube QDAY 30 min before breakfast magnesium sulfate 1 g Intravenous ONCE milk of magnesia (CONC) 10 mL Per NG tube QHS pantoprazole(#) 40 mg Per NG tube QDAY(21) potassium phosphate 2 tablet Oral TID pravastatin 40 mg Per NG tube QHS QUEtiapine 500 mg Per NG tube QHS sodium chloride 1-2 spray Each Nostril Q2H venlafaxine 37.5 mg Per NG tube BID w/meals IV MEDS Prnalbuterol 0.5% Q4H PRN, bisacodyl QDAY PRN, ipratropium bromide Q4H PRN, morphine injection syringe Q2H PRN, ondansetron (ZOFRAN) IV Q6H PRN, oxyCODONE Q4H PRN, pancrelipase 20,000 Units/ sodium bicarbonate 650 mg(#) PRN ( Manager Education from Rx), prochlorperazine Q6H PRN, traMADol Q4H PRN Norberto Sykes MD 10/16/2018Endocrine ATIONS LABEL CLERK * Polina Huang MD - 10/16/2018 5:08 PM OPERATIONS LABEL CLERK Patient chart reviewed, overnight events noted and discussed in rounds. Patient was not in the room this am No results for input(s): GLUPOC in the last 72 hours. Recent Labs 10/14/18 0547 10/15/18 0315 10/15/18 2024 10/16/18 0607 10/16/18 1418 NA 140 -- 138 -- -- 139 -- K 3.7 -- 4.0 -- -- 3.6 -- CL 106 -- 105 -- -- 103 -- CO2 26 -- 26 -- -- 30 -- BUN 12 -- 10 -- -- 12 -- CR 0.87 -- 0.77 -- -- 0.82 -- GFR >60 -- >60 -- -- >60 -- GLU 114* -- 104* -- -- 129* -- CA 8.1* < > 7.3* < > 7.8* 7.9* 8.4* PO4 3.3 -- 2.8 -- -- 2.7 -- < >=values in this interval not displayed. Estimated Creatinine Clearance: 78.6 mL/min (based on SCr of 0.82 mg/dL). Plan - Continue to monitor serial I.calcium every 8 hours. - increase calcium citrate to 2850mg (elemental calcium 600 mg ) 4 times daily - continue calcitriol 0.5 mcg BID - Vitamin D was very low at 9.1 : - Will give vitamin D2 50,000 units three times a week for 8-12 weeks then D3 2000 units daily - Her weight-based levothyroxine requirement is around 125 mcg daily. Continue LT4 125 mcg daily . Will need tyroid function test in 6 weeks. Levothyroxine should be given at least 2 hours after holding tube feeds and tube feeds should be held for 1 hour after giving levothyroxine. Attending addendum to follow Polina Huang MD Endocrinology Fellow PGY-[id number] [phone] 10/16/2018 ATIONS LABEL CLERK * Kelsy Holcomb RD - 10/16/2018 3:46 PM OPERATIONS LABEL CLERK CLINICAL NUTRITION Clinical Nutrition Follow-Up Summary NAME:Jacki Madsen :1960 AGE: 58 y.o. ADMISSION DATE: 10/05/2018 DAYS ADMITTED: LOS: 11 days Nutrition Assessment of Patient: Malnutrition Assessment: Does not meet criteria Current Oral Intake: NPO Estimated Calorie Needs: 4128-0994(30-35 kcal/kg desired wt) Estimated Protein Needs: 95-110(1.3-1.5g/kg desired wt) Oral Diet Order: NPO Intake (calories) Daily Average : 1024 kilocalories(2 day EN ave 10/14-; 47% min goal) Intake (protein) Daily Average : 46 grams(2 day EN ave 10/14-; 49% min goal) Current EN Order: Isosource 1.5 bolus feeds of 250 ml (1 carton) x 6 per day with 30 ml water flush before and after each feeding and 180 ml water bolus q6hr between feeds. To provide 2250 kcal, 102 g protein and 2220 ml free water at goal. Comments: 58 y.o.F w/ PMH including HTN, asthma and uterine CA. Admitted 10/05 for awake tracheostomy, Direct microlaryngoscopy with Bx. Was taking some po after video- swallow 10/07. S/p total laryngectomy 10/13 and currently NPO with feeding tube tip at gastric outlet per KUB 10/13. EN of Isosource 1.5 started 10/14 increased to goal and transitioned to bolus feeds. 2 day EN ave 10/14- met < 50% min kcal/protein goals. Unable to obtain subjective data; will retry at later date. Overweight per BMI. Has Synthroid per feeding tube. Recommendation: Continue 250 ml (1 carton) x 6 per day with 30 ml water flush before and after each feeding and 180 ml water bolus q6hr between feeds. To provide 2250 kcal, 102 g protein and 2220 ml free water at goal. No EN within 1 hr of Synthroid dose. Intervention / Plan: monitor EN tolerance/provision monitor wt trends, labs, meds, GI status Nutrition Diagnosis: Altered GI function Etiology: swallowing deficits s/p laryngectomy Signs & Symptoms: NPO with EN feeds Goals: EN tolerated and meeting >75% of nutritional needs Time Frame: Within 72 Hours Status: Not met;new goal established EN tolerated and meeting >85% of nutritional needs Time Frame: Throughout Stay Kelsy Holcomb, MS,RD, LD, CNSC *[id number] ATIONS LABEL CLERK * Cheyenne Hernandez - 10/16/2018 12:24 PM OPERATIONS LABEL CLERK SPEECH-LANGUAGE PATHOLOGY DAILY TREATMENT NOTE SUMMARY: Pt was seen this date for ongoing speech therapy targeting alaryngeal speech and use of compensatory strategies to maximize intelligibility of alaryngeal speech. Please see below for additional documentation. RECOMMENDATIONS: Use of electolarynx w/ staff and family (cheek placement). Use of written expression w/ staff as needed. Goal: The pt will produce /k/, /sh/, /t/, /p/ & /s/ w/o use of electrolaryx w / 80% accuracy at word level. Partially met Single syllable word productions targeted w/ sounds in initial and final positions. Targeted goal w/o use of electrolarynx to assist pt in hearing productions more clearly & for direct feedback. W/ initial /p/ productions mild air noise via stoma observed w/ 40% accuracy w/ productions/decreased plosion of air and w/ /p/ final sound position accuracy increased to 70%. /t/, /k/, /s/ and /sh/ productions in initial and final sound word productions were 80% accuracy or higher. Initiated education re: exaggerated oral motor movements for vowel productions to maximize intelligibility w/ pt utilizing these movements/strategies during above word productions w/ good accuracy. Educated pt to practice provided word lists w/ use of exaggerated articulation, slow rate of speech over the course of the weekend. Continue to address this goal to ensure accuracy Goal: The pt will utilize cheek placement w/ use of electrolarynx w/ intelligibility rating of 70% at sentence level. Goal not directly targeted this date Continue to address this goal Therapist: Cheyenne Hernandez MA, L/CCC-FLIGHT ENGINEER INSTRUCTOR Voalte: [phone] Date: 10/16/2018 ATIONS LABEL CLERK * Saul Nina RT - 10/16/2018 10:35 AM OPERATIONS LABEL CLERK RT Exercise Oximetry Note NAME:Jacki Madsen :1960 AGE: 58 y.o. ADMISSION DATE: 10/05/2018 DAYS ADMITTED: LOS: 11 days Date performed: 10/16/18 Time performed: 1003 Time walked: 8 minutes At Rest While Awake Results Room air at rest while awake: SpO2=91% Oxygen dose required at rest while awake: 0 lpm with resulting SpO2=91% If required oxygen dose with rest is greater than 4 lpm: n/a With Exercise Results: Room air SpO2 with exercise, if needed: 83% Oxygen required with exercise: 4 lpm with resulting SpO2=92% SpO2 at 1 liters per minute=85-86% SpO2 at 2 liters per minute=87% SpO2 at 3 liters per minute=87-88% SpO2 at 4 liters per minute=92% If required oxygen dose with exercise is greater than 4 lpm:n/a Comments: Patient has a laritube capped with an HME. No oxygen required at rest but needs oxygen while ambulating via Venti-trach mask device at 24% FiO2 with 4 lpm bled-in Therapist: RT Erwin ATIONS LABEL CLERK * Violeta Stearns - 10/16/2018 9:35 AM OPERATIONS LABEL CLERK PHYSICAL THERAPY DISCHARGE NOTE MOBILITY: Mobility Progressive Mobility Level: Walk in hallway Distance Walked (feet): 100 ft Level of Assistance: Independent Assistive Device: None Time Tolerated: 0-10 minutes Activity Limited By: No limitations SUBJECTIVE: Subjective Significant hospital events: s/p larygectomy total w/o radical neck dissection, cervical lymphadenectomy bilaterally, thyroidectomy total. Mental / Cognitive Status: Alert;Oriented;Cooperative;Follows Commands Persons Present: Spouse Pain: Patient complains of pain Pain Location: Post-surgical Comments: Patient states " feeling better" Comments: 3 CARLA drains, corpak, trach Ambulation Assist: Independent Mobility in Community without Device Patient Owned Equipment: None Home Situation: Lives with Family Type of Home: Apartment Entry Stairs: 3-5 Stairs In-Home Stairs: 3-5 Stairs BED MOBILITY/TRANSFERS: Bed Mobility/Transfers Comments: Patient up to chair upon arrival. Reports moving around well with no difficulties. Transfer Type: Sit to/from Stand Transfer: Assistance Level: To/From;Bed Side Chair;Independent Transfer: Assistive Device: None End Of Activity Status: Up in Chair;Nursing Notified GAIT: Gait Comments: Patient observed by this therapist walking in [place] with spouse right prior to attempt. Ambulated lap around unit with no loss of balance and steady gait. Ambulated this session 100ft to/from stairs Independent unsupported. Stairs: Number Climbed: 6 Stairs: Descriptors: Ascend;Descend;Reciprocal Stairs: Assistance Level: Standby Assist Stairs: Assistive Device: One Rail EDUCATION: Education Persons Educated: Patient/Family Patient Barriers To Learning: Impaired Communication Interventions: Family Education Teaching Methods: Verbal Instruction Patient Response: Verbalized Understanding Topics: Importance of Increasing Activity;Ambulate with Family ASSESSMENT/PROGRESS: Assessment/Progress Impaired Mobility Due To: Post Surgical Precautions;Post Surgical Changes Assessment/Progress: Improving as Expected Comments: Patient mobilizing well and was education on continue getting up and walking in [place] daily over weekend. AM-PAC 6 Clicks Basic Mobility Inpatient Turning from your back to your side while in a flat bed without using bed rails : None Moving from lying on your back to sitting on the side of a flatbed without using bedrails : None Moving to and from a bed to a chair (including a wheelchair): None Standing up from a chair using your arms (e.g. wheelchair, or bedside chair): None To walk in hospital room: None Climbing 3-5 steps with a railing: None Raw Score: 24 Standardized (T-scale) Score: 57.68 Basic Mobility CMS 0-100%: 0 CMS G Code Modifier for Basic Mobility: CH GOALS: Goals Goal Formulation: With Patient Time For Goal Achievement: 4 days Pt Will Ambulate: Greater than 200 Feet, w/ No Device, Independently, Met Pt Will Go Up / Down Stairs: 6-10 Stairs, w/ Stand By Assist, Met PLAN: Plan Plan Frequency: No Further Treatment RECOMMENDATIONS: PT Discharge Recommendations PT Discharge Recommendations: Home with Assistance Equipment Recommendations: None Recommend ongoing assistance for: In and out of house Therapist: Violeta Stearns Date: 10/16/2018 ATIONS LABEL CLERK * Terry Martinez MD - 10/16/2018 6:49 AM OPERATIONS LABEL CLERK JOE/HNS Progress Note Today's Date: 10/16/2018 Admission Date: 10/05/2018 LOS: 11 days Subjective No acute events overnight. Denies breathing difficulties, chest pain. Denies perioral or extremity numbness or tingling. Complains of numbness around neck incision line. Tolerating tube feeds. Medications Scheduled Meds: acetaminophen (TYLENOL) oral solution 650 mg 650 mg Per NG tube Q4H ampicillin/sulbactam (UNASYN) 3 g in sodium chloride 0.9% (NS) 100 mL IVPB (MB+ ) 3 g Intravenous Q6H* antiseptic mucus solvent 120 mL solution 1 spray 1 spray Tracheal Tube Q2H while awake calcitriol (ROCALTROL) oral solution 0.5 mcg 0.5 mcg Per Corpak Tube BID calcium citrate (CALCITRATE) tablet 2,850 mg 2,850 mg Per NG tube QID (See eMAR ) docusate (COLACE) oral solution 100 mg 100 mg Per NG tube BID famotidine (PEPCID) oral suspension 20 mg 20 mg Per NG tube BID gabapentin (NEURONTIN) oral solution 300 mg 300 mg Per NG tube Q8H heparin (porcine) PF syringe 5,000 Units 5,000 Units Subcutaneous Q8H levothyroxine (SYNTHROID) tablet 125 mcg 125 mcg Per NG tube QDAY 30 min before breakfast milk of magnesia (CONC) oral suspension 10 mL 10 mL Per NG tube QHS pantoprazole(#) (PROTONIX) suspension 40 mg 40 mg Per NG tube QDAY(21) pravastatin (PRAVACHOL) tablet 40 mg 40 mg Per NG tube QHS QUEtiapine (SEROQUEL) tablet 500 mg 500 mg Per NG tube QHS venlafaxine (EFFEXOR) tablet 37.5 mg 37.5 mg Per NG tube BID w/meals Continuous Infusions: PRN and Respiratory Meds:albuterol 0.5% Q4H PRN, bisacodyl QDAY PRN, ipratropium bromide Q4H PRN, morphine injection syringe Q2H PRN, ondansetron ( ZOFRAN) IV Q6H PRN, oxyCODONE Q4H PRN, pancrelipase 20,000 Units/ sodium bicarbonate 650 mg(#) PRN (Manager Education from Rx), prochlorperazine Q6H PRN, traMADol Q4H PRN Objective Vital Signs: Last Filed Vital Signs: 24 Hour Range BP: 93/52 (10/16 519) Temp: 37.2 C (98.9 F) (10/16 519) Pulse: 103 (10/16 547) Respirations: 18 PER MINUTE (10/16 519) SpO2: 98 % (10/16 547) O2 Delivery: Trach Shield (10/16 519) BP: (93-125)/(52-73) Temp: [36.6 C (97.9 F)-37.4 C (99.3 F)] Pulse: [81-111] Respirations: [16 PER MINUTE-18 PER MINUTE] SpO2: [92 %-98 %] O2 Delivery: Trach Shield Intensity Pain Scale (Self Report): Asleep (10/15/18 2252) Vitals: 10/05/18 1355 10/08/18 1115 Weight: 76.4 kg (168 lb 6.9 oz) 76.2 kg (168 lb) CARLA drain output: CARLA drain output noted and reviewed Intake/Output Summary: (Last 24 hours) Intake/Output Summary (Last 24 hours) at 10/16/2018 0650 Last data filed at 10/16/2018 0418 Gross per 24 hour Intake 1711 ml Output 10 ml Net 1701 ml Stool Occurrence: 1 Physical Exam No acute deficits Marine stoma pink mild crusting removed. Small area right medial stoma wound with fibrinous tissue Atos tube removed cleaned replaced. HME on. On RA Neck with stable swelling, soft, no eccymiosis, incision c/d/i with sutures, no fluctuance CARLA drain holding bulb suction with SS drainage SCDs in place bilaterally Lab Review Comprehensive Metabolic Profile Lab Results Component Value Date/Time NA 138 10/15/2018 03:15 AM K 4.0 10/15/2018 03:15 AM CL 105 10/15/2018 03:15 AM CO2 26 10/15/2018 03:15 AM GAP 7 10/15/2018 03:15 AM BUN 10 10/15/2018 03:15 AM CR 0.77 10/15/2018 03:15 AM GLU 104 (H) 10/15/2018 03:15 AM Lab Results Component Value Date/Time CA 7.8 (L) 10/15/2018 08:24 PM PO4 2.8 10/15/2018 03:15 AM ALBUMIN 4.0 10/06/2018 08:45 AM GFR >60 10/15/2018 03:15 AM GFRAA >60 10/15/2018 03:15 AM CBC w/Diff Lab Results Component Value Date/Time WBC 8.2 10/16/2018 06:07 AM RBC 3.37 (L) 10/16/2018 06:07 AM HGB 10.9 (L) 10/16/2018 06:07 AM HCT 31.8 (L) 10/16/2018 06:07 AM MCV 94.5 10/16/2018 06:07 AM MCH 32.2 10/16/2018 06:07 AM MCHC 34.1 10/16/2018 06:07 AM RDW 12.8 10/16/2018 06:07 AM PLTCT 288 10/16/2018 06:07 AM MPV 7.3 10/16/2018 06:07 AM No results found for: NEUT, ANC, LYMA, ALC, LIUDMILA, AMC, EOSA, AEC, BASA, ABC Point of Care Testing (Last 24 hours) Radiology and other Diagnostics Review: Surgical Pathology in p[progress 10/06 -CT Neck / Chest IMPRESSION 1. Subcutaneous air and pneumomediastinum centered [...] Correlate with troponin evaluation and patient symptoms. IMPRESSION 1. Interval tracheostomy and biopsy of a left glottic mass. Irregular enhancing ulcerated left glottic mass measuring up to 2.1 cm. Primarily left supraglottic extension into the left paraglottic fat with uplifting of the left false cord. No discrete cartilage invasion or subglottic extension is identified. 2. No cervical adenopathy. 10/06 PET IMPRESSION 1. Hypermetabolic left glottic mass, most compatible with a primary neoplasm. 2. No hypermetabolic regional nadeen or distant metastases. 3. Prior tracheostomy with mildly increased FDG uptake about the tracheostomy tube, likely postoperative in nature. Extensive pneumomediastinum and subcutaneous emphysema extending into the lower neck, likely postoperative. 4. Bibasilar atelectasis and/or pneumonitis. Active Hospital Problems Diagnosis Anxiety Depression Tobacco abuse Asthma Dysphagia Laryngeal mass Assessment/Plan: Jacki Madsen is a 58 y.o. female Awake tracheostomy, Direct microlaryngoscopy with Bx on 10/05. s/p Total laryngectomy without radical neck dissection, Total thyroidectomy, BMRND, Bilateral sternocleidomastoid muscle advancement rotation flaps on 10/13. NEURO: Grossly intact, pain controlled. continue current pain regimen. Anxiety / depression on equivalent home meds per NG tube PT/OT for mobilization ENT: Continue Marine tube care, CARLA drain maintenance, Wound incisional care. [place] FLIGHT ENGINEER INSTRUCTOR consulted for s/p Marine voicing; supra-incisional edema noted PULM: Marine stomal pink, mild crusting removed, Marine tube cleaned reinserted HME device on. On RA but having desats intermittently; will f/u on walking SpO2 eval CV: HDS ID: Afebrile,on ppx IV Unasyn GI/FEN:Bolus feeds. -LBM 10/15; Plan for Esophagram 10/21. ENDO: Hypocalcemia but calcium stabilized with iCal WNL; PTH 4.0 remains asymtopmatic. Endo consulted. Continue Q8 Calcium's. On Calcitrate, synthroid : UOP adequate voiding spontaneously. PPX: SCD's, SQH, Pepcid, Protonix, IV Unasyn DISP: Continue inpt status. Ongoing discussion with CM/SW regarding dispo plans. Terry Martinez MD PGY-2 ATIONS LABEL CLERK * Lissett Braxton RN - 10/15/2018 8:27 PM OPERATIONS LABEL CLERK Labs obtained and labeled at bedside. ATIONS LABEL CLERK * Cheyenne Hernandez - 10/15/2018 2:23 PM OPERATIONS LABEL CLERK SPEECH-LANGUAGE PATHOLOGY POST-OPERATIVE LARYNGECTOMY SPEECH EVALUATION & EDUCATION EVALUATION SUMMARY Eval Summary* Summary: A post-operative speech evaluation was completed. Introduced pt to alaryngeal speech w/ use of electrolarynx. Pt highly motivated and attempted use of electrolarynx w/ oral adaptor and placement on cheek. Please see below for additional documentation. RECOMMENDATIONS: Use of electolarynx w/ staff and family (cheek placement). Use of written expression w/ staff as needed. WRITTEN COMMUNICATION Comment*: Pt currently utilizing written expression (right handed) to communicate needs & ideas to staff w/ 100% legibility. EDUCATION: Written and verbal education regarding phonation and swallowing changes following surgery were thoroughly discussed. In addition, esophageal speech, electrolarynx use, and TEP were thoroughly discussed with the aid of pictures. Ptverbalized understanding of education with good accuracy. The pt's significant other was present throughout the duration of education and he was interactive in education provided. Discussed w/ pt importance of utilizing compensatory strategies to maximize intelligibility s/p laryngectomy including, slow rate of articulation & exaggerated articulation movements. Also discussed use of plosives w/ demonstration provided. Demonstration of electrolarynx provided and pt actively participate in electrolarynx trials. She attempted neck placement however not successful secondary to presence of significant edema. W/ use of oral adaptor intelligibility was 70% and w/ use of cheek placement when context known intelligibility was 90% w/ pt utilizing written communication as needed. Pt w/ good plosion w/ productions of /t/, /s/ and will continue to focus on /k/ and /ch/ /sh/ productions. Objective* Relevant Med Background: Jacki Madsen is a 58 y.o. year old female now s/p evaluated on 10/05/2018, in the Otolaryngology-Head and Neck Surgery Clinic at the [facility]. The patient was referred by Dr. De La Fuente for evaluation of left vocal cord mass. Paitent notes about 9 month history of increasing throat pain and dysphonia. Patient finally went to Dr. De La Fuente who saw left vocal cord mass and sent for CT neck. No biopsy has been performed. She notes ongoing throat pain, bilateral otalgia with left being worse then right. She also notes ongoing dysphagia with trouble swallowing and intermittently coughing. She also notes her voice has completely disappeared over the last month. Continues to smoke and has smoked for 40 years more then 1ppd. Notes some weight loss and increasing trouble with PO intake. She also notes some trouble breathing especially at night and with exertion. Pt is now s/p awake tracheostomy, Direct microlaryngoscopy with Bx on 10/05. Handedness: Right Hearing: WFL (in a quiet environment) Receives Help From: None Needed Vocational: Unemployed Psychosocial Status: Willing and Cooperative to Participate Persons Present: Significant other Subjective* Pain: Patient has no complaint of pain Pain Level Current*: No pain Feeding Tube Present During Eval: corpak Education* Persons Educated: Patient Barriers To Learning: None Noted Interventions: Family Educated Teaching Methods: Verbal, Printed, Demonstration Topics: (electrolarynx, airway/breathing changes s/p laryngectomy) Patient Response: Verbalized Understanding Goal Formulation: With Patient Goal: The pt will produce /k/, /sh/, /t/, /p/ & /s/ w/o use of electrolaryx w / 80% accuracy at word level Goal: The pt will utilize cheek placement w/ use of electrolarynx w/ intelligibility rating of 70% at sentence level. Therapist: Cheyenne Hernandez MA, L/CCC-FLIGHT ENGINEER INSTRUCTOR Voalte: [id number] Date: 10/15/2018 ATIONS LABEL CLERK * Kathy Kim, PLAYER DEVELOPMENT EXECUTIVE-PEDIATRIC GENETIC COUNSELOR - 10/15/2018 11:36 AM OPERATIONS LABEL CLERK JOE/HNS Progress Note Today's Date: 10/15/2018 Admission Date: 10/05/2018 LOS: 10 days Subjective No acute events overnight. Denies breathing difficulties, chest pain. Denies perioral or extremity numbness or tingling. Complains of numbness around neck incision line Medications Scheduled Meds: acetaminophen (TYLENOL) oral solution 650 mg 650 mg Per NG tube Q4H ampicillin/sulbactam (UNASYN) 3 g in sodium chloride 0.9% (NS) 100 mL IVPB (MB+ ) 3 g Intravenous Q6H* antiseptic mucus solvent 120 mL solution 1 spray 1 spray Tracheal Tube Q2H while awake calcium citrate (CALCITRATE) tablet 1,900 mg 1,900 mg Per NG tube TID docusate (COLACE) oral solution 100 mg 100 mg Per NG tube BID famotidine (PEPCID) oral suspension 20 mg 20 mg Per NG tube BID gabapentin (NEURONTIN) oral solution 300 mg 300 mg Per NG tube Q8H heparin (porcine) PF syringe 5,000 Units 5,000 Units Subcutaneous Q8H levothyroxine (SYNTHROID) tablet 125 mcg 125 mcg Per NG tube QDAY 30 min before breakfast milk of magnesia (CONC) oral suspension 10 mL 10 mL Per NG tube QHS pantoprazole(#) (PROTONIX) suspension 40 mg 40 mg Per NG tube QDAY(21) pravastatin (PRAVACHOL) tablet 40 mg 40 mg Per NG tube QHS QUEtiapine (SEROQUEL) tablet 500 mg 500 mg Per NG tube QHS venlafaxine (EFFEXOR) tablet 37.5 mg 37.5 mg Per NG tube BID w/meals Continuous Infusions: PRN and Respiratory Meds:albuterol 0.5% Q4H PRN, bisacodyl QDAY PRN, ipratropium bromide Q4H PRN, morphine injection syringe Q2H PRN, ondansetron ( ZOFRAN) IV Q6H PRN, oxyCODONE Q4H PRN, pancrelipase 20,000 Units/ sodium bicarbonate 650 mg(#) PRN (Manager Education from Rx), prochlorperazine Q6H PRN, traMADol Q4H PRN Objective Vital Signs: Last Filed Vital Signs: 24 Hour Range BP: 125/62 (10/15 1000) Temp: 36.8 C (98.3 F) (10/15 1000) Pulse: 87 (10/15 1000) Respirations: 16 PER MINUTE (10/15 1000) SpO2: 95 % (10/15 1000) O2 Delivery: Trach Shield (10/15 1000) BP: (91-125)/(45-78) Temp: [36.8 C (98.3 F)-37.2 C (99 F)] Pulse: [87-102] Respirations: [15 PER MINUTE-18 PER MINUTE] SpO2: [92 %-95 %] O2 Delivery: Trach Shield Intensity Pain Scale (Self Report): 6 (10/14/18 1441) Vitals: 10/05/18 1355 10/08/18 1115 Weight: 76.4 kg (168 lb 6.9 oz) 76.2 kg (168 lb) CARLA drain output: CARLA drain output noted and reviewed Intake/Output Summary: (Last 24 hours) Intake/Output Summary (Last 24 hours) at 10/15/2018 1136 Last data filed at 10/15/2018 0745 Gross per 24 hour Intake 1314 ml Output 32 ml Net 1282 ml Stool Occurrence: 1 Physical Exam No acute deficits Marine stoma pink mild crusting removed. Small area right medial stoma wound with fibrin tissue Atos tube removed cleaned replaced. HME on. On RA Neck with stable swelling, soft, no eccymiosis, incision c/d/i with sutures, no fluctuance CARLA drain holding bulb suction with SS drainage SCDs in place bilaterally Lab Review Comprehensive Metabolic Profile Lab Results Component Value Date/Time NA 138 10/15/2018 03:15 AM K 4.0 10/15/2018 03:15 AM CL 105 10/15/2018 03:15 AM CO2 26 10/15/2018 03:15 AM GAP 7 10/15/2018 03:15 AM BUN 10 10/15/2018 03:15 AM CR 0.77 10/15/2018 03:15 AM GLU 104 (H) 10/15/2018 03:15 AM Lab Results Component Value Date/Time CA 7.3 (L) 10/15/2018 03:15 AM PO4 2.8 10/15/2018 03:15 AM ALBUMIN 4.0 10/06/2018 08:45 AM GFR >60 10/15/2018 03:15 AM GFRAA >60 10/15/2018 03:15 AM CBC w/Diff Lab Results Component Value Date/Time WBC 9.0 10/15/2018 03:15 AM RBC 3.23 (L) 10/15/2018 03:15 AM HGB 10.4 (L) 10/15/2018 03:15 AM HCT 30.5 (L) 10/15/2018 03:15 AM MCV 94.4 10/15/2018 03:15 AM MCH 32.4 10/15/2018 03:15 AM MCHC 34.3 10/15/2018 03:15 AM RDW 12.7 10/15/2018 03:15 AM PLTCT 232 10/15/2018 03:15 AM MPV 7.5 10/15/2018 03:15 AM No results found for: NEUT, ANC, LYMA, ALC, LIUDMILA, AMC, EOSA, AEC, BASA, ABC Results for JACKI MADSEN ( ) as of 10/15/2018 11:35 Ref. Range 10/14/2018 22:53 10/15/2018 03:15 10/15/2018 11:08 Calcium Latest Ref Range: 8.5 - 10.6 MG/DL 7.5 (L) 7.3 (L) Ionized Calcium Latest Ref Range: 1.0 - 1.3 MMOL/L 0.76 (L) 0.98 (L) Results for JACKI MADSEN ( ) as of 10/15/2018 11:35 Ref. Range 10/15/2018 03:15 PTH Hormone Latest Ref Range: 10 - 65 PG/ML 4.0 (L) Point of Care Testing (Last 24 hours) Glucose: (!) 104 (10/15/18 0315) Radiology and other Diagnostics Review: Surgical Pathology in p[progress 10/06 -CT Neck / Chest IMPRESSION 1. Subcutaneous air and pneumomediastinum centered [...] Correlate with troponin evaluation and patient symptoms. IMPRESSION 1. Interval tracheostomy and biopsy of a left glottic mass. Irregular enhancing ulcerated left glottic mass measuring up to 2.1 cm. Primarily left supraglottic extension into the left paraglottic fat with uplifting of the left false cord. No discrete cartilage invasion or subglottic extension is identified. 2. No cervical adenopathy. 10/06 PET IMPRESSION 1. Hypermetabolic left glottic mass, most compatible with a primary neoplasm. 2. No hypermetabolic regional nadeen or distant metastases. 3. Prior tracheostomy with mildly increased FDG uptake about the tracheostomy tube, likely postoperative in nature. Extensive pneumomediastinum and subcutaneous emphysema extending into the lower neck, likely postoperative. 4. Bibasilar atelectasis and/or pneumonitis. Active Hospital Problems Diagnosis Anxiety Depression Tobacco abuse Asthma Dysphagia Laryngeal mass Assessment/Plan: Jacki Madsen is a 58 y.o. female Awake tracheostomy, Direct microlaryngoscopy with Bx on 10/05. s/p Total laryngectomy without radical neck dissection, Total thyroidectomy, BMRND, Bilateral sternocleidomastoid muscle advancement rotation flaps on 10/13. NEURO: Grossly intact, pain controlled. continue current pain regimen. Anxiety / depression on equivalent home meds per NG tube PT/OT for mobilization ENT: Continue Marine tube care, CARLA drain maintenance, Wound incisional care. [place] FLIGHT ENGINEER INSTRUCTOR consulted for s/p Marine voicing PULM: Marine stomal pink, mild crusting removed, Marine tube cleaned reinserted HME device on. On RA CV: HDS, H/H 10.4 / 30.5 ID: Afebrile, wbc 8.0->9.0 on ppx IV Unasyn GI/FEN: Advance to bolus TF. SLIV On Bowel regimen -LBM - 10/12. Plan for Esophagram 10/21. ENDO: Hypocalcemia Calcium labs trending down -7.6 / 7.2/7.5/7.3 PTH 4.0 remains asymtopmatic. Endo consulted. Continue Q8 Calcium's. On Calcitrate, synthroid : UOP adequate voiding spontaneously. PPX: SCD's, SQH, Pepcid, Protonix, IV Unasyn DISP: Continue inpt status. Ongoing discussion with CM/SW regarding dispo plans. Kathy Kim APRN Pager [phone] ATIONS LABEL CLERK * Malissa Yao, OT - 10/15/2018 11:12 AM OPERATIONS LABEL CLERK OCCUPATIONAL THERAPY PROGRESS NOTE Patient Name: Jacki Madsen Room/Bed: [place] [address] Admitting Diagnosis: Laryngeal mass [J38.7] Mobility Progressive Mobility Level: Walk in room Distance Walked (feet): 40 ft Level of Assistance: Stand by assistance Assistive Device: None Time Tolerated: 11-30 minutes Activity Limited By: Pain(headache) Subjective Pertinent Dx per Physician: s/p larygectomy total w/o radical neck dissection, cervical lymphadenectomy bilaterally, thyroidectomy total Precautions: Falls Pain / Complaints: Patient agrees to participate in therapy Pain Location: Head Pain Level Current: 6 Severe pain Comments: Patient supine in bed upon arrival of OT. Patient left supine in bed, alarm on, call light near and all needs in reach. Objective Psychosocial Status: Willing and Cooperative to Participate Persons Present: Nursing Staff Home Living Type of Home: Apartment Home Layout: One Level Bathroom Shower / Tub: Tub/Shower Unit Bathroom Toilet: Standard Comment: Patient reports 3 stairs to enter and 4 more stairs down to apartment Prior Function Level Of [place]: Independent with ADLs and functional transfers; Independent with homemaking w/ ambulation Lives With: Spouse Receives Help From: None Needed Homemaking Tasks: Meal Prep;Driving;Shopping Other Function Comments: Patient reports that she is very independent and active. Patient is only one in her family with drivers license ADL's Where Assessed: Standing at Sink;In Bathroom Grooming Assist: Stand By Assist Grooming Deficits: Setup LE Dressing Assist: Stand By Assist LE Dressing Deficits: Setup Toileting Assist: Stand By Assist Toileting Deficits: Setup Functional Transfer Assist: Stand By Assist Functional Transfer Deficits: Setup Comment: Supine>sit with stand by assist. Patient ambulated to/from bathroom with stand by assist. Patient able to perform all ADLs without assist. Patient limited on this date by migraine. Activity Tolerance Endurance: 3/5 Tolerates 25-30 Minutes Exercise w/Multiple Rests Sitting Balance: 4/5 Moves/Returns Trunkal Midpoint 1-2 Inches in Multiple Planes Cognition Overall Cognitive Status: WFL to Adequately Complete Self Care Tasks Safely Cognition Comment: new trach-able to cover for communication. Cannot tolerate speaking valve. Assessment Assessment: Decreased ADL Status;Decreased Self-Care Trans;Decreased High-Level ADLs Prognosis: Good Goal Formulation: Patient AM-PAC 6 Clicks Daily Activity Inpatient Putting on and taking off regular lower body clothes?: None Bathing (Including washing, rinsing, drying): None Toileting, which includes using toilet, bedpan, or urinal: None Putting on and taking off regular upper body clothing: None Taking care of personal grooming such as brushing teeth: None Eating meals?: Total Daily Activity Raw Score: 21 Standardized (t-scale) score: 44.27 CMS 0-100% Score: 32.79 CMS G Code Modifier: CJ Plan Progress: Discontinue OT OT Frequency: No Further Treatment ADL Goals Patient Will Perform LE Dressing: Met Patient Will Perform Toileting: Met Functional Transfer Goals Pt Will Perform All Functional Transfers: Met OT Discharge Recommendations OT Discharge Recommendations: Home with family assist, Home with Home Health Equipment Recommendations: None Recommend ongoing assistance for: In and out of house, Stairs Therapist: MAIKEL Gray/[place] [id number] Date: 10/15/2018 ATIONS LABEL CLERK * Kathy Kim, PLAYER DEVELOPMENT EXECUTIVE-PEDIATRIC GENETIC COUNSELOR - 10/14/2018 10:05 AM OPERATIONS LABEL CLERK JOE/HNS Progress Note Today's Date: 10/14/2018 Admission Date: 10/05/2018 LOS: 9 days Subjective No acute events overnight. Denies breathing difficulties, chest pain. Had 2 episodes of N/V overnight. Denies perioral or extremity numbness or tingling Medications Scheduled Meds: ampicillin/sulbactam (UNASYN) 3 g in sodium chloride 0.9% (NS) 100 mL IVPB (MB+ ) 3 g Intravenous Q6H* antiseptic mucus solvent 120 mL solution 1 spray 1 spray Tracheal Tube Q2H while awake calcium carbonate (OS-LEWIS) tablet 2,500 mg 2,500 mg Per NG tube TID w/ meals docusate (COLACE) oral solution 100 mg 100 mg Per NG tube BID famotidine (PEPCID) oral suspension 20 mg 20 mg Per NG tube BID gabapentin (NEURONTIN) oral solution 300 mg 300 mg Per NG tube Q8H heparin (porcine) PF syringe 5,000 Units 5,000 Units Subcutaneous Q8H [START ON 10/15/2018] levothyroxine (SYNTHROID) tablet 125 mcg 125 mcg Per NG tube QDAY 30 min before breakfast milk of magnesia (CONC) oral suspension 10 mL 10 mL Per NG tube QHS pantoprazole(#) (PROTONIX) suspension 40 mg 40 mg Per NG tube QDAY(21) pravastatin (PRAVACHOL) tablet 40 mg 40 mg Per NG tube QHS QUEtiapine (SEROQUEL) tablet 500 mg 500 mg Per NG tube QHS venlafaxine (EFFEXOR) tablet 37.5 mg 37.5 mg Per NG tube BID w/meals Continuous Infusions: sodium chloride 0.9 % with KCl 20 mEq/L infusion 100 mL/hr at 10/14/18 0423 PRN and Respiratory Meds:acetaminophen Q4H PRN, albuterol 0.5% Q4H PRN, bisacodyl QDAY PRN, ipratropium bromide Q4H PRN, morphine injection syringe Q2H PRN, ondansetron (ZOFRAN) IV Q6H PRN, oxyCODONE Q4H PRN, pancrelipase 20, 000 Units/ sodium bicarbonate 650 mg(#) PRN (Manager Education from Rx), prochlorperazine Q6H PRN, traMADol Q4H PRN Objective Vital Signs: Last Filed Vital Signs: 24 Hour Range BP: 123/66 (10/14 533) Temp: 37.2 C (99 F) (10/14 533) Pulse: 104 (10/14 0945) Respirations: 17 PER MINUTE (10/14 533) SpO2: 91 % (10/14 05) O2 Delivery: None (Room Air) (10/13 182) SpO2 Pulse: 84 (10/13 1600) BP: (122-155)/(66-92) Temp: [36.6 C (97.8 F)-37.2 C (99 F)] Pulse: [74-104] Respirations: [12 PER MINUTE-17 PER MINUTE] SpO2: [91 %-100 %] O2 Delivery: None (Room Air) Intensity Pain Scale (Self Report): 3 (10/14/18 0425) Vitals: 10/05/18 1355 10/08/18 1115 Weight: 76.4 kg (168 lb 6.9 oz) 76.2 kg (168 lb) CARLA drain output: CARLA drain output noted and reviewed Intake/Output Summary: (Last 24 hours) Intake/Output Summary (Last 24 hours) at 10/14/2018 1005 Last data filed at 10/14/2018 0630 Gross per 24 hour Intake 960 ml Output 2471 ml Net -1511 ml Stool Occurrence: 0 Physical Exam No acute deficits Marine stoma pink mild crusting removed. Small area right medial stoma wound fibrin tissue Atos tube removed cleaned replaced. On TS at 28 % Neck flat, incision c/d/i with sutures, no fluctuance CARLA drain holding bulb suction with SS drainage SCDs in place bilaterally Lab Review Comprehensive Metabolic Profile Lab Results Component Value Date/Time NA 140 10/14/2018 05:47 AM K 3.7 10/14/2018 05:47 AM CL 106 10/14/2018 05:47 AM CO2 26 10/14/2018 05:47 AM GAP 8 10/14/2018 05:47 AM BUN 12 10/14/2018 05:47 AM CR 0.87 10/14/2018 05:47 AM GLU 114 (H) 10/14/2018 05:47 AM Lab Results Component Value Date/Time CA 8.1 (L) 10/14/2018 05:47 AM PO4 3.3 10/14/2018 05:47 AM ALBUMIN 4.0 10/06/2018 08:45 AM GFR >60 10/14/2018 05:47 AM GFRAA >60 10/14/2018 05:47 AM CBC w/Diff Lab Results Component Value Date/Time WBC 8.0 10/14/2018 05:47 AM RBC 3.40 (L) 10/14/2018 05:47 AM HGB 11.1 (L) 10/14/2018 05:47 AM HCT 32.2 (L) 10/14/2018 05:47 AM MCV 94.7 10/14/2018 05:47 AM MCH 32.5 10/14/2018 05:47 AM MCHC 34.4 10/14/2018 05:47 AM RDW 12.7 10/14/2018 05:47 AM PLTCT 260 10/14/2018 05:47 AM MPV 7.7 10/14/2018 05:47 AM No results found for: NEUT, ANC, LYMA, ALC, LIUDMILA, AMC, EOSA, AEC, BASA, ABC Results for JACKI MADSEN ( ) as of 10/14/2018 11:51 Ref. Range 10/13/2018 23:30 10/14/2018 05:47 10/14/2018 07:20 10/14/2018 10:30 Calcium Latest Ref Range: 8.5 - 10.6 MG/DL 7.7 (L) 8.1 (L) 7.8 (L) Ionized Calcium Latest Ref Range: 1.0 - 1.3 MMOL/L 0.99 (L) 0.98 (L) 1.04 Point of Care Testing (Last 24 hours) Glucose: (!) 114 (10/14/18 0547) Radiology and other Diagnostics Review: Surgical Pathology in p[progress 10/06 -CT Neck / Chest IMPRESSION 1. Subcutaneous air and pneumomediastinum centered [...] Correlate with troponin evaluation and patient symptoms. IMPRESSION 1. Interval tracheostomy and biopsy of a left glottic mass. Irregular enhancing ulcerated left glottic mass measuring up to 2.1 cm. Primarily left supraglottic extension into the left paraglottic fat with uplifting of the left false cord. No discrete cartilage invasion or subglottic extension is identified. 2. No cervical adenopathy. 10/06 PET IMPRESSION 1. Hypermetabolic left glottic mass, most compatible with a primary neoplasm. 2. No hypermetabolic regional nadeen or distant metastases. 3. Prior tracheostomy with mildly increased FDG uptake about the tracheostomy tube, likely postoperative in nature. Extensive pneumomediastinum and subcutaneous emphysema extending into the lower neck, likely postoperative. 4. Bibasilar atelectasis and/or pneumonitis. Active Hospital Problems Diagnosis Anxiety Depression Tobacco abuse Asthma Dysphagia Laryngeal mass Assessment/Plan: Jacki Madsen is a 58 y.o. female Awake tracheostomy, Direct microlaryngoscopy with Bx on 10/05. s/p Total laryngectomy without radical neck dissection, Total thyroidectomy, BMRND, Bilateral sternocleidomastoid muscle advancement rotation flaps on 10/13. NEURO: Grossly intact, pain controlled. continue current pain regimen. Anxiety / depression continue home meds. PT/OT for mobilization ENT: Continue Marine tube care, CARLA drain maintenance, Wound incisional care. PULM: Marine stomal pink, mild crusting removed, Marine tube cleaned reinserted on TS at 28% will place HME device CV: HDS, H/H 11.1 / 32.2 ID: Afebrile, wbc 8.0 on ppx IV Unasyn GI/FEN: Start trickle TF. IV fluid toal intake 100 cc / hr On Bowel regimen - LBM - 10/12. Plan for Esophagram 10/21. ENDO: Continue monitoring Calcium levels Q 8 hrs on Os-Lewis, synthroid : UOP adequate voiding spontaneously. PPX: SCD's, SQH on hold , Pepcid, IV Unasyn DISP: Continue inpt status. Ongoing discussion with CM/SW regarding dispo plans. Kathy Kim APRN Pager [phone] ATIONS LABEL CLERK * Patrizia Ford, PT - 10/14/2018 10:01 AM OPERATIONS LABEL CLERK PHYSICAL THERAPY ASSESSMENT MOBILITY: Progressive Mobility Level: Walk laps Distance Walked (feet): 700 ft Level of Assistance: Stand by assistance Assistive Device: (IV pole) Time Tolerated: 11-30 minutes Activity Limited By: Pain;Nausea SUBJECTIVE: Significant hospital events: s/p larygectomy total w/o radical neck dissection, cervical lymphadenectomy bilaterally, thyroidectomy total. Mental / Cognitive Status: Alert;Oriented;Cooperative;Follows Commands Persons Present: Spouse;Occupational Therapist Pain: Patient complains of pain;Before activity;During activity;After activity; Patient does not rate pain Pain Location: Post-surgical Comments: 3 CARLA drains, corpak, trach Ambulation Assist: Independent Mobility in Community without Device Patient Owned Equipment: None Home Situation: Lives with Family Type of Home: Apartment Entry Stairs: 3-5 Stairs In-Home Stairs: 3-5 Stairs ROM: LE ROM: Bilateral;WFL STRENGTH: Overall Strength: WFL BED MOBILITY/TRANSFERS: Bed Mobility: Supine to Sit: Minimal Assist;Head of Bed Elevated Transfer Type: Sit to/from Stand Transfer: Assistance Level: To/From;Bed;Standby Assist Transfer: Assistive Device: None Transfers: Type Of Assistance: For Safety Considerations Other Transfer Type: Sit to/from Stand Other Transfer: Assistance Level: To/From;Bed Side Chair;Standby Assist Other Transfer: Assistive Device: None Other Transfer: Type Of Assistance: For Safety Considerations End Of Activity Status: Up in Chair;Nursing Notified;Instructed Patient to Request Assist with Mobility;Instructed Patient to Use Call Light GAIT: Gait Distance: 700 feet Gait: Assistance Level: Standby Assist;Safety Considerations;Management of Lines Gait: Assistive Device: IV Pole Gait: Descriptors: Pace: Normal;No balance loss;Variable step length Activity Limited By: Complaint of Fatigue EDUCATION: Persons Educated: Patient Patient Barriers To Learning: Impaired Communication Interventions: Repetition of Instructions;Written Instructions Provided Teaching Methods: Verbal Instruction;Demonstration Patient Response: Verbalized Understanding;Return Demonstration Topics: Plan/Goals of PT Interventions;Up with Assist Only;Importance of Increasing Activity ASSESSMENT/PROGRESS: Impaired Mobility Due To: Post Surgical Precautions;Post Surgical Changes Assessment/Progress: Expect Good Progress;Should Improve w/ Continued PT Comments: Anticipate 1-2 follow up visits to ensure safe progression of mobility and to address stairs. Patient demonstrates proper safety awareness for discharge home with assistance from family . AM-PAC 6 Clicks Basic Mobility Inpatient Turning from your back to your side while in a flat bed without using bed rails : None Moving from lying on your back to sitting on the side of a flatbed without using bedrails : A Little Moving to and from a bed to a chair (including a wheelchair): None Standing up from a chair using your arms (e.g. wheelchair, or bedside chair): None To walk in hospital room: None Climbing 3-5 steps with a railing: A Little Raw Score: 22 Standardized (T-scale) Score: 47.4 Basic Mobility CMS 0-100%: 25.02 CMS G Code Modifier for Basic Mobility: CJ GOALS: Goal Formulation: With Patient Time For Goal Achievement: 4 days Pt Will Ambulate: Greater than 200 Feet, w/ No Device, Independently Pt Will Go Up / Down Stairs: 6-10 Stairs, w/ Stand By Assist PLAN: Treatment Interventions: Mobility Training Plan Frequency: 3-5 Days per Week PT Plan for Next Visit: Progress independence with gait/transfers, trial stairs. RECOMMENDATIONS: PT Discharge Recommendations: Home with Assistance Equipment Recommendations: None Recommend ongoing assistance for: In and out of house;Stairs Therapist: Patrizia Ford, PT Date: 10/14/2018 ATIONS LABEL CLERK * Karlie Cabrera, RT - 10/14/2018 9:24 AM OPERATIONS LABEL CLERK RT Adult Assessment Note NAME:Jacki Madsen :1960 AGE: 58 y.o. ADMISSION DATE: 10/05/2018 DAYS ADMITTED: LOS: 9 days RT Treatment Plan: Protocol Plan: Medications Albuterol: Neb PRN Protocol Plan: Procedures Tracheostomy Suction: PRN Oxygen/Humidity: O2 to keep SpO2 > 92%;Warm: continuous Monitoring: Pulse oximetry continuous (document SpO2 results Q4h)(per order) Additional Comments: Impressions of the patient:patient in bed appears no resp distress Intervention(s)/outcome(s): suction laryi prn Vital Signs: Pulse: RR: SpO2: O2 Device: $$ O2 Device: Standby Liter Flow: O2%: Breath Sounds: Respiratory Effort: ATIONS LABEL CLERK * Malissa Yao OT - 10/14/2018 8:47 AM OPERATIONS LABEL CLERK OCCUPATIONAL THERAPY ASSESSMENT NOTE Patient Name: Jacki Madsen Room/Bed: [place] [address] Admitting Diagnosis: Laryngeal mass [J38.7] Mobility Progressive Mobility Level: Walk laps Distance Walked (feet): 700 ft Level of Assistance: Stand by assistance Assistive Device: (IV pole) Time Tolerated: 11-30 minutes Activity Limited By: Pain;Nausea Subjective Pertinent Dx per Physician: s/p larygectomy total w/o radical neck dissection, cervical lymphadenectomy bilaterally, thyroidectomy total Precautions: Falls Pain / Complaints: Patient agrees to participate in therapy;Patient has no c/o pain Comments: Patient supine in bed upon arrival of OT. Patient left sititng in chair, alarm on, call light near, and all needs in reach Objective Psychosocial Status: Willing and Cooperative to Participate Persons Present: Spouse;Physical Therapist Home Living Type of Home: Apartment Home Layout: One Level Bathroom Shower / Tub: Tub/Shower Unit Bathroom Toilet: Standard Comment: Patient reports 3 stairs to enter and 4 more stairs down to apartment Prior Function Level Of [place]: Independent with ADLs and functional transfers; Independent with homemaking w/ ambulation Lives With: Spouse Receives Help From: None Needed Homemaking Tasks: Meal Prep;Driving;Shopping Other Function Comments: Patient reports that she is very independent and active. Patient is only one in her family with drivers license ADL's Where Assessed: Chair Grooming Assist: Minimal Assist(due to pain) Grooming Deficits: No Assist Needed LE Dressing Assist: Stand By Assist LE Dressing Deficits: Setup Toileting Assist: Stand By Assist Toileting Deficits: Setup Functional Transfer Assist: Stand By Assist Functional Transfer Deficits: Setup Comment: Supine>sit with minimal assist. Patient ambulated in room and 600+ feet in hallway with stand by assist and use of IV pole for stablity. Currently limited by pain impacting ADLs. Activity Tolerance Endurance: 3/5 Tolerates 25-30 Minutes Exercise w/Multiple Rests Sitting Balance: 4/5 Moves/Returns Trunkal Midpoint 1-2 Inches in Multiple Planes Cognition Overall Cognitive Status: WFL to Adequately Complete Self Care Tasks Safely UE AROM Overall BUE AROM WNL: Yes UE Strength / Tone Overall Strength / Tone: WFL Able to Perform ADL Tasks Education Persons Educated: Patient/Family Barriers To Learning: None Noted Interventions: Repetition of Instructions Teaching Methods: Verbal Instruction Patient Response: Verbalized Understanding Topics: Role of OT, Goals for Therapy Goal Formulation: With Patient Assessment Assessment: Decreased ADL Status;Decreased Self-Care Trans;Decreased High-Level ADLs Prognosis: Good Goal Formulation: Patient AM-PAC 6 Clicks Daily Activity Inpatient Putting on and taking off regular lower body clothes?: A Little Bathing (Including washing, rinsing, drying): A Little Toileting, which includes using toilet, bedpan, or urinal: A Little Putting on and taking off regular upper body clothing: None Taking care of personal grooming such as brushing teeth: A Little Eating meals?: Total Daily Activity Raw Score: 17 Standardized (t-scale) score: 37.26 CMS 0-100% Score: 50.11 CMS G Code Modifier: CK Plan OT Frequency: Follow-Up Visit Only ADL Goals Patient Will Perform LE Dressing: Independently Patient Will Perform Toileting: Independently Functional Transfer Goals Pt Will Perform All Functional Transfers: Independent OT Discharge Recommendations OT Discharge Recommendations: Home with family assist Equipment Recommendations: None Recommend ongoing assistance for: In and out of house, Stairs Therapist: MAIKEL Gray/[place] [id number] Date: 10/14/2018 ATIONS LABEL CLERK * Shazia Allred RN - 10/14/2018 7:29 AM OPERATIONS LABEL CLERK Ultrasound used to find a vein for labs. Labeled at bedside. ATIONS LABEL CLERK * Elvira Aguila RN - 10/13/2018 11:34 PM OPERATIONS LABEL CLERK Labs drawn by IV therapy from patients left antecubital vein x1 attempt. Tubes labeled at bedside. Pt tolerated well. ATIONS LABEL CLERK * Kathy Kim APRN-NATALI - 10/13/2018 5:54 AM OPERATIONS LABEL CLERK JOE/HNS Progress Note Today's Date: 10/13/2018 Admission Date: 10/05/2018 LOS: 8 days Subjective No acute events overnight. Denies breathing difficulties, chest pain, N/V. Pain controlled. Up ad ibrahima in [facility] Medications Scheduled Meds: antiseptic mucus solvent 120 mL solution 1-2 spray 1-2 spray Mucous Membrane Q2H while awake famotidine (PEPCID) tablet 20 mg 20 mg Oral BID heparin (porcine) PF syringe 5,000 Units 5,000 Units Subcutaneous Q8H milk of magnesia (CONC) oral suspension 10 mL 10 mL Oral QHS polyethylene glycol 3350 (MIRALAX) packet 17 g 1 packet Oral QDAY pravastatin (PRAVACHOL) tablet 40 mg 40 mg Oral QHS QUEtiapine (SEROQUEL) tablet 500 mg 500 mg Oral QHS senna/docusate (SENOKOT-S) tablet 1 tablet 1 tablet Oral BID varenicline (CHANTIX) tablet 1 mg 1 mg Oral BID w/meals venlafaxine XR (EFFEXOR XR) capsule 75 mg 75 mg Oral QDAY w/breakfast Continuous Infusions: sodium chloride 0.9 % infusion 100 mL/hr at 10/12/18 2256 PRN and Respiratory Meds:acetaminophen Q4H PRN, albuterol 0.5% Q4H PRN, bisacodyl QDAY PRN, diphenoxylate/atropine QID PRN, morphine injection syringe Q2H PRN, ondansetron (ZOFRAN) IV Q6H PRN, ondansetron Q6H PRN, oxyCODONE Q4H PRN , phenol PRN, prochlorperazine Q6H PRN Objective Vital Signs: Last Filed Vital Signs: 24 Hour Range BP: 120/84 (10/13 513) Temp: 36.7 C (98 F) (10/13 513) Pulse: 87 (10/13 513) Respirations: 19 PER MINUTE (10/13 513) SpO2: 94 % (10/13 513) O2 Delivery: None (Room Air) (10/13 513) SpO2 Pulse: 82 (10/12 180) BP: (90-139)/(50-84) Temp: [36.5 C (97.7 F)-36.8 C (98.3 F)] Pulse: [71-104] Respirations: [15 PER MINUTE-19 PER MINUTE] SpO2: [93 %-100 %] O2 Delivery: None (Room Air) Intensity Pain Scale (Self Report): 4 (10/13/18 05) Vitals: 10/05/18 1355 10/08/18 1115 Weight: 76.4 kg (168 lb 6.9 oz) 76.2 kg (168 lb) CARLA drain output: none Intake/Output Summary: (Last 24 hours) Intake/Output Summary (Last 24 hours) at 10/13/2018 0554 Last data filed at 10/13/2018 0500 Gross per 24 hour Intake 1030 ml Output Net 1030 ml Stool Occurrence: 0 Physical Exam No Acute deficits 6-0 cuffless Shiley trach with soft ties. No bleeding at trach site Facial nerve function intact bilaterally Some voicing with finger occlusion, no stridor or stertor Nares patent bilaterally w/ no drainage SCDs in place bilaterally Lab Review Comprehensive Metabolic Profile Lab Results Component Value Date/Time NA 138 10/06/2018 08:45 AM K 4.4 10/06/2018 08:45 AM CL 107 10/06/2018 08:45 AM CO2 26 10/06/2018 08:45 AM GAP 5 10/06/2018 08:45 AM BUN 13 10/06/2018 08:45 AM CR 0.61 10/06/2018 08:45 AM GLU 94 10/06/2018 08:45 AM Lab Results Component Value Date/Time CA 9.3 10/06/2018 08:45 AM PO4 2.6 10/06/2018 08:45 AM ALBUMIN 4.0 10/06/2018 08:45 AM GFR >60 10/06/2018 08:45 AM GFRAA >60 10/06/2018 08:45 AM CBC w/Diff Lab Results Component Value Date/Time WBC 7.2 10/05/2018 04:41 PM RBC 4.23 10/05/2018 04:41 PM HGB 13.4 10/05/2018 04:41 PM HCT 40.1 10/05/2018 04:41 PM MCV 94.9 10/05/2018 04:41 PM MCH 31.7 10/05/2018 04:41 PM MCHC 33.4 10/05/2018 04:41 PM RDW 12.7 10/05/2018 04:41 PM PLTCT 220 10/05/2018 04:41 PM MPV 7.7 10/05/2018 04:41 PM No results found for: NEUT, ANC, LYMA, ALC, LIUDMILA, AMC, EOSA, AEC, BASA, ABC Point of Care Testing (Last 24 hours) Radiology and other Diagnostics Review: Surgical Pathology in p[progress 10/06 -CT Neck / Chest IMPRESSION 1. Subcutaneous air and pneumomediastinum centered [...] Correlate with troponin evaluation and patient symptoms. IMPRESSION 1. Interval tracheostomy and biopsy of a left glottic mass. Irregular enhancing ulcerated left glottic mass measuring up to 2.1 cm. Primarily left supraglottic extension into the left paraglottic fat with uplifting of the left false cord. No discrete cartilage invasion or subglottic extension is identified. 2. No cervical adenopathy. 10/06 PET IMPRESSION 1. Hypermetabolic left glottic mass, most compatible with a primary neoplasm. 2. No hypermetabolic regional nadeen or distant metastases. 3. Prior tracheostomy with mildly increased FDG uptake about the tracheostomy tube, likely postoperative in nature. Extensive pneumomediastinum and subcutaneous emphysema extending into the lower neck, likely postoperative. 4. Bibasilar atelectasis and/or pneumonitis. Active Hospital Problems Diagnosis Anxiety Depression Tobacco abuse Asthma Dysphagia Laryngeal mass Assessment/Plan: Jacki Madsen is a 58 y.o. female Awake tracheostomy, Direct microlaryngoscopy with Bx on 10/05. NEURO: Grossly intact, pain controlled. continue current pain regimen. Anxiety / depression continue home meds. PT/OT for mobilization ENT: Continue trach care. PULM: 6-0 uncuffed trach trach secured in place with soft tie. Stable on RA per TS. RT for aggressive pulmonary hygiene, breathing Txs as needed. Has not been tolerating SV -using finger occlusion for voicing. FLIGHT ENGINEER INSTRUCTOR following appreciate recs. CV: HDS, ECHO noted -VSS ID: Afebrile, completed ppx abx. GI/FEN: NPO for ORt IV fluids, LBM - 10/12, On Bowel regimen ENDO: TSH wnl : UOP adequate voiding spontaneously. PPX: SCD's, SQH on hold , Pepcid DISP: Continue inpt status. Cleared by IM for OR. Total Laryngectomy surgery to OR today 10/13. Kathy Kim APRN Pager [phone] ATIONS LABEL CLERK * Kathy Kim APRN-NP - 10/12/2018 11:35 AM OPERATIONS LABEL CLERK JOE/HNS Progress Note Today's Date: 10/12/2018 Admission Date: 10/05/2018 LOS: 7 days Subjective No acute events overnight. Denies breathing difficulties, chest pain, N/V. Pain controlled. Up ad ibrahima in hallway Medications Scheduled Meds: antiseptic mucus solvent 120 mL solution 1-2 spray 1-2 spray Mucous Membrane Q2H while awake famotidine (PEPCID) tablet 20 mg 20 mg Oral BID heparin (porcine) PF syringe 5,000 Units 5,000 Units Subcutaneous Q8H milk of magnesia (CONC) oral suspension 10 mL 10 mL Oral QHS polyethylene glycol 3350 (MIRALAX) packet 17 g 1 packet Oral QDAY pravastatin (PRAVACHOL) tablet 40 mg 40 mg Oral QHS QUEtiapine (SEROQUEL) tablet 500 mg 500 mg Oral QHS senna/docusate (SENOKOT-S) tablet 1 tablet 1 tablet Oral BID varenicline (CHANTIX) tablet 1 mg 1 mg Oral BID w/meals venlafaxine XR (EFFEXOR XR) capsule 75 mg 75 mg Oral QDAY w/breakfast Continuous Infusions: sodium chloride 0.9 % infusion PRN and Respiratory Meds:acetaminophen Q4H PRN, albuterol 0.5% Q4H PRN, bisacodyl QDAY PRN, diphenoxylate/atropine QID PRN, morphine injection syringe Q2H PRN, ondansetron (ZOFRAN) IV Q6H PRN, ondansetron Q6H PRN, oxyCODONE Q4H PRN , prochlorperazine Q6H PRN Objective Vital Signs: Last Filed Vital Signs: 24 Hour Range BP: 100/57 (10/12 1000) Temp: 36.5 C (97.7 F) (10/12 1000) Pulse: 91 (10/12 1000) Respirations: 18 PER MINUTE (10/12 1000) SpO2: 100 % (10/12 1000) O2 Delivery: None (Room Air) (10/12 1000) BP: (100-124)/(57-85) Temp: [36.4 C (97.5 F)-36.9 C (98.4 F)] Pulse: [69-104] Respirations: [14 PER MINUTE-18 PER MINUTE] SpO2: [95 %-100 %] O2 Delivery: None (Room Air) Intensity Pain Scale (Self Report): 7 (10/11/18 2200) Vitals: 10/05/18 1355 10/08/18 1115 Weight: 76.4 kg (168 lb 6.9 oz) 76.2 kg (168 lb) CARLA drain output: none Intake/Output Summary: (Last 24 hours) Intake/Output Summary (Last 24 hours) at 10/12/2018 1135 Last data filed at 10/12/2018 0600 Gross per 24 hour Intake 240 ml Output 0 ml Net 240 ml Stool Occurrence: 0 Physical Exam No Acute deficits 6-0 cuffless Shiley trach with soft ties. No bleeding at trach site Facial nerve function intact bilaterally Some voicing with finger occlusion, no stridor or stertor Nares patent bilaterally w/ no drainage SCDs in place bilaterally Lab Review Comprehensive Metabolic Profile Lab Results Component Value Date/Time NA 138 10/06/2018 08:45 AM K 4.4 10/06/2018 08:45 AM CL 107 10/06/2018 08:45 AM CO2 26 10/06/2018 08:45 AM GAP 5 10/06/2018 08:45 AM BUN 13 10/06/2018 08:45 AM CR 0.61 10/06/2018 08:45 AM GLU 94 10/06/2018 08:45 AM Lab Results Component Value Date/Time CA 9.3 10/06/2018 08:45 AM PO4 2.6 10/06/2018 08:45 AM ALBUMIN 4.0 10/06/2018 08:45 AM GFR >60 10/06/2018 08:45 AM GFRAA >60 10/06/2018 08:45 AM CBC w/Diff Lab Results Component Value Date/Time WBC 7.2 10/05/2018 04:41 PM RBC 4.23 10/05/2018 04:41 PM HGB 13.4 10/05/2018 04:41 PM HCT 40.1 10/05/2018 04:41 PM MCV 94.9 10/05/2018 04:41 PM MCH 31.7 10/05/2018 04:41 PM MCHC 33.4 10/05/2018 04:41 PM RDW 12.7 10/05/2018 04:41 PM PLTCT 220 10/05/2018 04:41 PM MPV 7.7 10/05/2018 04:41 PM No results found for: NEUT, ANC, LYMA, ALC, LIUDMILA, AMC, EOSA, AEC, BASA, ABC Point of Care Testing (Last 24 hours) Radiology and other Diagnostics Review: Surgical Pathology in p[progress 10/06 -CT Neck / Chest IMPRESSION 1. Subcutaneous air and pneumomediastinum centered [...] Correlate with troponin evaluation and patient symptoms. IMPRESSION 1. Interval tracheostomy and biopsy of a left glottic mass. Irregular enhancing ulcerated left glottic mass measuring up to 2.1 cm. Primarily left supraglottic extension into the left paraglottic fat with uplifting of the left false cord. No discrete cartilage invasion or subglottic extension is identified. 2. No cervical adenopathy. 10/06 PET IMPRESSION 1. Hypermetabolic left glottic mass, most compatible with a primary neoplasm. 2. No hypermetabolic regional nadeen or distant metastases. 3. Prior tracheostomy with mildly increased FDG uptake about the tracheostomy tube, likely postoperative in nature. Extensive pneumomediastinum and subcutaneous emphysema extending into the lower neck, likely postoperative. 4. Bibasilar atelectasis and/or pneumonitis. Active Hospital Problems Diagnosis Anxiety Depression Tobacco abuse Asthma Dysphagia Laryngeal mass Assessment/Plan: Jacki Madsen is a 58 y.o. female Awake tracheostomy, Direct microlaryngoscopy with Bx on 10/05. NEURO: Grossly intact, pain controlled. continue current pain regimen. Anxiety / depression continue home meds. 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 PULM: 6-0 uncuffed trach trach secured in place with soft tie. Stable on RA per TS. RT for aggressive pulmonary hygiene, breathing Txs as needed. Has not been tolerating SV -using finger occlusion for voicing. FLIGHT ENGINEER INSTRUCTOR following appreciate recs. CV: HDS, ECHO noted -VSS ID: Afebrile, completed ppx abx. GI/FEN: Tolerating reg diet. SLIV. NPO after midnight IV fluids starting tonight LBM - URGENT CARE PHYSICIAN, Bowel regimen increased. Supp added ( pt refused prior) Mg Citrate po added ENDO: TSH wnl : UOP adequate voiding spontaneously. PPX: SCD's, SQH on hold , Pepcid DISP: Continue inpt status. Cleared by IM for OR. Total Laryngectomy surgery in am 10/13. Kathy Kim APRN Pager [phone] ATIONS LABEL CLERK * Mic Rodriges MD - 10/11/2018 8:32 AM OPERATIONS LABEL CLERK JOE/HNS Progress Note Today's Date: 10/11/2018 Admission Date: 10/05/2018 LOS: 6 days Subjective No acute events overnight. Denies breathing difficulties, chest pain. Tolerating diet. Excited for her breakfast. Pain controlled. Medications Scheduled Meds: antiseptic mucus solvent 120 mL solution 1-2 spray 1-2 spray Mucous Membrane Q2H while awake famotidine (PEPCID) tablet 20 mg 20 mg Oral BID heparin (porcine) PF syringe 5,000 Units 5,000 Units Subcutaneous Q8H milk of magnesia (CONC) oral suspension 10 mL 10 mL Oral QHS polyethylene glycol 3350 (MIRALAX) packet 17 g 1 packet Oral QDAY pravastatin (PRAVACHOL) tablet 40 mg 40 mg Oral QHS QUEtiapine (SEROQUEL) tablet 500 mg 500 mg Oral QHS senna/docusate (SENOKOT-S) tablet 1 tablet 1 tablet Oral BID varenicline (CHANTIX) tablet 1 mg 1 mg Oral BID w/meals venlafaxine XR (EFFEXOR XR) capsule 75 mg 75 mg Oral QDAY w/breakfast Continuous Infusions: PRN and Respiratory Meds:acetaminophen Q4H PRN, albuterol 0.5% Q4H PRN, bisacodyl QDAY PRN, diphenoxylate/atropine QID PRN, morphine injection syringe Q2H PRN, ondansetron (ZOFRAN) IV Q6H PRN, ondansetron Q6H PRN, oxyCODONE Q4H PRN , prochlorperazine Q6H PRN Objective Vital Signs: Last Filed Vital Signs: 24 Hour Range BP: 103/64 (10/11 452) Temp: 36.9 C (98.4 F) (10/11 452) Pulse: 73 (10/11 452) Respirations: 18 PER MINUTE (10/11 452) SpO2: 96 % (10/11 452) O2 Delivery: None (Room Air) (10/11 452) BP: (103-147)/(61-79) Temp: [36.9 C (98.4 F)-37 C (98.6 F)] Pulse: [68-92] Respirations: [14 PER MINUTE-18 PER MINUTE] SpO2: [96 %-98 %] O2 Delivery: None (Room Air) Intensity Pain Scale (Self Report): 2 (10/11/18 0614) Vitals: 10/05/18 1355 10/08/18 1115 Weight: 76.4 kg (168 lb 6.9 oz) 76.2 kg (168 lb) CARLA drain output: none Intake/Output Summary: (Last 24 hours) No intake or output data in the 24 hours ending 10/11/18 0832 Stool Occurrence: 0 Physical Exam No Acute deficits 6-0 cuffless Shiley trach with soft ties. No bleeding at trach site Facial nerve function intact bilaterally Some voicing with finger occlusion, no stridor or stertor Nares patent bilaterally w/ no drainage SCDs in place bilaterally Lab Review Comprehensive Metabolic Profile Lab Results Component Value Date/Time NA 138 10/06/2018 08:45 AM K 4.4 10/06/2018 08:45 AM CL 107 10/06/2018 08:45 AM CO2 26 10/06/2018 08:45 AM GAP 5 10/06/2018 08:45 AM BUN 13 10/06/2018 08:45 AM CR 0.61 10/06/2018 08:45 AM GLU 94 10/06/2018 08:45 AM Lab Results Component Value Date/Time CA 9.3 10/06/2018 08:45 AM PO4 2.6 10/06/2018 08:45 AM ALBUMIN 4.0 10/06/2018 08:45 AM GFR >60 10/06/2018 08:45 AM GFRAA >60 10/06/2018 08:45 AM CBC w/Diff Lab Results Component Value Date/Time WBC 7.2 10/05/2018 04:41 PM RBC 4.23 10/05/2018 04:41 PM HGB 13.4 10/05/2018 04:41 PM HCT 40.1 10/05/2018 04:41 PM MCV 94.9 10/05/2018 04:41 PM MCH 31.7 10/05/2018 04:41 PM MCHC 33.4 10/05/2018 04:41 PM RDW 12.7 10/05/2018 04:41 PM PLTCT 220 10/05/2018 04:41 PM MPV 7.7 10/05/2018 04:41 PM No results found for: NEUT, ANC, LYMA, ALC, LIUDMILA, AMC, EOSA, AEC, BASA, ABC Point of Care Testing (Last 24 hours) Radiology and other Diagnostics Review: Surgical Pathology in p[progress 10/06 -CT Neck / Chest IMPRESSION 1. Subcutaneous air and pneumomediastinum centered [...] Correlate with troponin evaluation and patient symptoms. IMPRESSION 1. Interval tracheostomy and biopsy of a left glottic mass. Irregular enhancing ulcerated left glottic mass measuring up to 2.1 cm. Primarily left supraglottic extension into the left paraglottic fat with uplifting of the left false cord. No discrete cartilage invasion or subglottic extension is identified. 2. No cervical adenopathy. 10/06 PET IMPRESSION 1. Hypermetabolic left glottic mass, most compatible with a primary neoplasm. 2. No hypermetabolic regional nadeen or distant metastases. 3. Prior tracheostomy with mildly increased FDG uptake about the tracheostomy tube, likely postoperative in nature. Extensive pneumomediastinum and subcutaneous emphysema extending into the lower neck, likely postoperative. 4. Bibasilar atelectasis and/or pneumonitis. Active Hospital Problems Diagnosis Anxiety Depression Tobacco abuse Asthma Dysphagia Laryngeal mass Assessment/Plan: Jacki Madsen is a 58 y.o. female Awake tracheostomy, Direct microlaryngoscopy with Bx on 10/05. NEURO: Grossly intact, pain controlled. continue current pain regimen. Anxiety / depression continue home meds. 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 PULM: 6-0 uncuffed trach trach secured in place with soft tie. Stable on RA per TS. RT for aggressive pulmonary hygiene, breathing Txs as needed. Has not been tolerating SV -using finger occlusion for voicing. FLIGHT ENGINEER INSTRUCTOR following appreciate recs. CV: HDS, ECHO noted -VSS ID: Afebrile, completed ppx abx. GI/FEN: Tolerating reg diet. SLIV. LBM - URGENT CARE PHYSICIAN, Bowel regimen increased ENDO: TSH wnl : UOP adequate voiding spontaneously. PPX: SCD's, SQH, Pepcid DISP: Continue inpt status. Cleared by IM for OR. Plan to keep pt in house for Total Laryngectomy surgery 10/13. Mic Rodriges MD Otolaryngology Resident [phone] ATIONS LABEL CLERK * Ulisses Yancey MD - 10/10/2018 7:51 AM OPERATIONS LABEL CLERK JOE/HNS Progress Note Today's Date: 10/10/2018 Admission Date: 10/05/2018 LOS: 5 days Subjective No acute events overnight. Denies breathing difficulties, chest pain. Tolerating po diet. [place] nauseous overnight. No vomitting. Medications Scheduled Meds: antiseptic mucus solvent 120 mL solution 1-2 spray 1-2 spray Mucous Membrane Q2H while awake bisacodyl (DULCOLAX) rectal suppository 10 mg 10 mg Rectal ONCE famotidine (PEPCID) tablet 20 mg 20 mg Oral BID heparin (porcine) PF syringe 5,000 Units 5,000 Units Subcutaneous Q8H milk of magnesia (CONC) oral suspension 10 mL 10 mL Oral QHS polyethylene glycol 3350 (MIRALAX) packet 17 g 1 packet Oral QDAY pravastatin (PRAVACHOL) tablet 40 mg 40 mg Oral QHS QUEtiapine (SEROQUEL) tablet 500 mg 500 mg Oral QHS senna/docusate (SENOKOT-S) tablet 1 tablet 1 tablet Oral BID varenicline (CHANTIX) tablet 1 mg 1 mg Oral BID w/meals venlafaxine XR (EFFEXOR XR) capsule 75 mg 75 mg Oral QDAY w/breakfast Continuous Infusions: PRN and Respiratory Meds:acetaminophen Q4H PRN, albuterol 0.5% Q4H PRN, bisacodyl QDAY PRN, diphenoxylate/atropine QID PRN, morphine injection syringe Q2H PRN, ondansetron (ZOFRAN) IV Q6H PRN, oxyCODONE Q4H PRN, prochlorperazine Q6H PRN Objective Vital Signs: Last Filed Vital Signs: 24 Hour Range BP: 87/44 (10/10 518) Temp: 36.6 C (97.9 F) (10/10 518) Pulse: 63 (10/10 518) Respirations: 17 PER MINUTE (10/10 518) SpO2: 96 % (10/10 518) O2 Delivery: None (Room Air) (10/10 518) BP: (87-128)/(44-80) Temp: [36.4 C (97.5 F)-36.8 C (98.2 F)] Pulse: [63-99] Respirations: [16 PER MINUTE-17 PER MINUTE] SpO2: [93 %-98 %] O2 Delivery: None (Room Air) Intensity Pain Scale (Self Report): 5 (10/09/18 2100) Vitals: 10/05/18 1355 10/08/18 1115 Weight: 76.4 kg (168 lb 6.9 oz) 76.2 kg (168 lb) CARLA drain output: none Intake/Output Summary: (Last 24 hours) Intake/Output Summary (Last 24 hours) at 10/10/2018 0751 Last data filed at 10/10/2018 0639 Gross per 24 hour Intake 240 ml Output Net 240 ml Stool Occurrence: 0 Physical Exam No Acute deficits 6-0 cuffed Shiley trach cuff down sutured in place. No bleeding at trach site Facial nerve function intact bilaterally Some voicing with finger occlusion, no stridor or stertor Nares patent bilaterally w/ no drainage SCDs in place bilaterally Lab Review Comprehensive Metabolic Profile Lab Results Component Value Date/Time NA 138 10/06/2018 08:45 AM K 4.4 10/06/2018 08:45 AM CL 107 10/06/2018 08:45 AM CO2 26 10/06/2018 08:45 AM GAP 5 10/06/2018 08:45 AM BUN 13 10/06/2018 08:45 AM CR 0.61 10/06/2018 08:45 AM GLU 94 10/06/2018 08:45 AM Lab Results Component Value Date/Time CA 9.3 10/06/2018 08:45 AM PO4 2.6 10/06/2018 08:45 AM ALBUMIN 4.0 10/06/2018 08:45 AM GFR >60 10/06/2018 08:45 AM GFRAA >60 10/06/2018 08:45 AM CBC w/Diff Lab Results Component Value Date/Time WBC 7.2 10/05/2018 04:41 PM RBC 4.23 10/05/2018 04:41 PM HGB 13.4 10/05/2018 04:41 PM HCT 40.1 10/05/2018 04:41 PM MCV 94.9 10/05/2018 04:41 PM MCH 31.7 10/05/2018 04:41 PM MCHC 33.4 10/05/2018 04:41 PM RDW 12.7 10/05/2018 04:41 PM PLTCT 220 10/05/2018 04:41 PM MPV 7.7 10/05/2018 04:41 PM No results found for: NEUT, ANC, LYMA, ALC, LIUDMILA, AMC, EOSA, AEC, BASA, ABC Point of Care Testing (Last 24 hours) Radiology and other Diagnostics Review: Surgical Pathology in p[progress 10/06 -CT Neck / Chest IMPRESSION 1. Subcutaneous air and pneumomediastinum centered [...] Correlate with troponin evaluation and patient symptoms. IMPRESSION 1. Interval tracheostomy and biopsy of a left glottic mass. Irregular enhancing ulcerated left glottic mass measuring up to 2.1 cm. Primarily left supraglottic extension into the left paraglottic fat with uplifting of the left false cord. No discrete cartilage invasion or subglottic extension is identified. 2. No cervical adenopathy. 10/06 PET IMPRESSION 1. Hypermetabolic left glottic mass, most compatible with a primary neoplasm. 2. No hypermetabolic regional nadeen or distant metastases. 3. Prior tracheostomy with mildly increased FDG uptake about the tracheostomy tube, likely postoperative in nature. Extensive pneumomediastinum and subcutaneous emphysema extending into the lower neck, likely postoperative. 4. Bibasilar atelectasis and/or pneumonitis. Active Hospital Problems Diagnosis Anxiety Depression Tobacco abuse Asthma Dysphagia Laryngeal mass Assessment/Plan: Jacki Madsen is a 58 y.o. female Awake tracheostomy, Direct microlaryngoscopy with Bx on 10/05. NEURO: Grossly intact, pain controlled. continue current pain regimen. Anxiety / depression continue home meds. 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 PULM: 6-0 uncuffed trach trach secured in place with soft tie. Stable on RA per TS. RT for aggressive pulmonary hygiene, breathing Txs as needed. Has not been tolerating SV -using finger occlusion for voicing. FLIGHT ENGINEER INSTRUCTOR following appreciate recs. CV: HDS, ECHO noted -VSS ID: Afebrile, completed ppx abx. GI/FEN: Tolerating reg diet. SLIV. LBM - URGENT CARE PHYSICIAN, Bowel regimen increased ENDO: TSH wnl : UOP adequate voiding spontaneously. PPX: SCD's, SQH, Pepcid DISP: Continue inpt status. Cleared by IM for OR. Plan to keep pt in house for Total Laryngectomy surgery 10/13. Ulisses Yancey MD Otolaryngology Resident Pager [phone] ATIONS LABEL CLERK Associated attestation - Kalli Snyder MD - 10/10/2018 11:37 AM OPERATIONS LABEL CLERK ATTESTATION I personally performed the [place] portions of the E/M visit, discussed case with resident and concur with resident documentation of history, physical exam, assessment, and treatment plan unless otherwise noted. I discussed planned surgery for 10/14/18 which will include total laryngectomy, bilateral modified radical neck dissection, thyroid lobectomy, bilateral SCM muscle flap. I counseled pt and family regarding risks of surgery including pharyngeal leak requiring prolonged hospitalization and wound care, nerve injury, bleeding, infection and risks of anesthesia including AR, stroke and . I also discussed likely recommendation for adjuvant therapy to begin within 6 weeks of surgery. Patient wishes to proceed. Staff name: Kalli Snyder MD Date: 10/10/2018 * Young Moser RN - 10/10/2018 5:30 [address] OPERATIONS LABEL [address] [place] notified regarding patient's BP of 87/44. No new instructions given at this time. ATIONS LABEL CLERK * Remy Haney RT - 10/10/2018 12:12 AM OPERATIONS LABEL CLERK RT Adult Assessment Note NAME:Jacki Madsen :1960 AGE: 58 y.o. ADMISSION DATE: 10/05/2018 DAYS ADMITTED: LOS: 5 days RT Treatment Plan: Protocol Plan: Medications Albuterol: Neb PRN Protocol Plan: Procedures Tracheostomy Suction: PRN Oxygen/Humidity: Warm: continuous Monitoring: Discontinued Additional Comments: Impressions of the patient: Patient in no distress. Intervention(s)/outcome(s): Continue Trach Management and Albuterol Neb PRN for Asthma Hx. Patient education that was completed: None Recommendations to the care team: None Vital Signs: Pulse: Pulse: 69 RR: Respirations: 16 PER MINUTE SpO2: SpO2: 95 % O2 Device: Liter Flow: O2%: O2 Percent: 21 % Breath Sounds: Respiratory Effort: Respiratory Effort: Non-Labored ATIONS LABEL CLERK * Cheyenne Hernandez - 10/09/2018 3:50 PM OPERATIONS LABEL CLERK SPEECH-LANGUAGE PATHOLOGY SUMMARY: Dysphagia f/u completed. Pt reported she continues to tolerate regular solids & thin liquids free of overt s/s aspiration. When questioned pt denied presence of globus. RECOMMENDATIONS: Continue w/ regular solids & thin liquids. Ongoing speech therapy no longer indicated at this time. Swallow Strategies: Small Bites/Sips, Slow Rate of Intake, cough after every 3- 4 drinks of thin liquids DYSPHAGIA TREATMENT Goal : The pt will tolerate a regular diet w/ thin liquids w/ use of swallow strategies w/ < 5% overt s/s aspiration. Goal met Pt was not directly observed w/ p.o. Intake this date, however, when questioned she denied presence of overt s/s aspiration w/ solids & thin liquids and her significant other confirmed report. Pt asked questions re: when she would have a swallow study post laryngectomy and encouraged pt to ask physicians for clarification re: timing of swallow study s/p marine. Pt's sig other asked questions re: communication s/p laryngectomy as well w/ questions answered again this date. Discharge this goal as met Therapist: Cheyenne Hernandez MA, L/CCC-FLIGHT ENGINEER INSTRUCTOR Voalte: [id number] Date: 10/09/2018 ATIONS LABEL CLERK * Tova Garces, GUCCI - 10/09/2018 10:51 AM OPERATIONS LABEL CLERK Patient stated that she is refusing the ordered suppository. Patient states " she knows he body best and does not have regular bowel movements". She also states "just started eating again and there is nothing to come out yet"..."if no poop by Friday she will consider an enema or suppository". RN educated patient that it is important to have regular bowel movements and to start a bowel regimen before surgery on Friday. ATIONS LABEL CLERK * Samantha Shah - 10/09/2018 10:38 AM OPERATIONS LABEL CLERK Offered pt. A bath she says she is comfortable [facility] just wants to rest for now!!! ATIONS LABEL CLERK * Kathy Kim APRN-NATALI - 10/09/2018 9:27 AM OPERATIONS LABEL CLERK JOE/HNS Progress Note Today's Date: 10/09/2018 Admission Date: 10/05/2018 LOS: 4 days Subjective No acute events overnight. Denies breathing difficulties, N/V, chest pain. Tolerating po diet. Pt states feels SOB with speaking valve. Medications Scheduled Meds: antiseptic mucus solvent 120 mL solution 1-2 spray 1-2 spray Mucous Membrane Q2H while awake famotidine (PEPCID) tablet 20 mg 20 mg Oral BID heparin (porcine) PF syringe 5,000 Units 5,000 Units Subcutaneous Q8H pravastatin (PRAVACHOL) tablet 40 mg 40 mg Oral QHS QUEtiapine (SEROQUEL) tablet 500 mg 500 mg Oral QHS senna/docusate (SENOKOT-S) tablet 1 tablet 1 tablet Oral BID varenicline (CHANTIX) tablet 1 mg 1 mg Oral BID w/meals venlafaxine XR (EFFEXOR XR) capsule 75 mg 75 mg Oral QDAY w/breakfast Continuous Infusions: PRN and Respiratory Meds:acetaminophen Q4H PRN, albuterol 0.5% Q4H PRN, bisacodyl QDAY PRN, diphenoxylate/atropine QID PRN, milk of magnesia (CONC) QDAY PRN, morphine injection syringe Q2H PRN, ondansetron (ZOFRAN) IV Q6H PRN, oxyCODONE Q4H PRN Objective Vital Signs: Last Filed Vital Signs: 24 Hour Range BP: 96/53 (10/09 546) Temp: 36.6 C (97.9 F) (10/09 546) Pulse: 91 (10/09 546) Respirations: 17 PER MINUTE (10/09 546) SpO2: 95 % (10/09 546) O2 Delivery: Trach Shield (10/09 546) Height: 170.2 cm (67") (10/08 111) BP: (96-127)/(53-78) Temp: [36.5 C (97.7 F)-37.5 C (99.5 F)] Pulse: [78-111] Respirations: [14 PER MINUTE-18 PER MINUTE] SpO2: [92 %-99 %] O2 Delivery: Trach Shield Intensity Pain Scale (Self Report): 4 (10/09/18 0653) Vitals: 10/05/18 1355 10/08/18 1115 Weight: 76.4 kg (168 lb 6.9 oz) 76.2 kg (168 lb) CARLA drain output: none Intake/Output Summary: (Last 24 hours) Intake/Output Summary (Last 24 hours) at 10/09/2018 09 Last data filed at 10/08/2018 1510 Gross per 24 hour Intake 360 ml Output Net 360 ml Stool Occurrence: 0 Physical Exam No Acute deficits 6-0 cuffed Shiley trach cuff down sutured in place. No bleeding at trach site Facial nerve function intact bilaterally Some voicing with finger occlusion, no stridor or stertor Nares patent bilaterally w/ no drainage SCDs in place bilaterally Lab Review Comprehensive Metabolic Profile Lab Results Component Value Date/Time NA 138 10/06/2018 08:45 AM K 4.4 10/06/2018 08:45 AM CL 107 10/06/2018 08:45 AM CO2 26 10/06/2018 08:45 AM GAP 5 10/06/2018 08:45 AM BUN 13 10/06/2018 08:45 AM CR 0.61 10/06/2018 08:45 AM GLU 94 10/06/2018 08:45 AM Lab Results Component Value Date/Time CA 9.3 10/06/2018 08:45 AM PO4 2.6 10/06/2018 08:45 AM ALBUMIN 4.0 10/06/2018 08:45 AM GFR >60 10/06/2018 08:45 AM GFRAA >60 10/06/2018 08:45 AM CBC w/Diff Lab Results Component Value Date/Time WBC 7.2 10/05/2018 04:41 PM RBC 4.23 10/05/2018 04:41 PM HGB 13.4 10/05/2018 04:41 PM HCT 40.1 10/05/2018 04:41 PM MCV 94.9 10/05/2018 04:41 PM MCH 31.7 10/05/2018 04:41 PM MCHC 33.4 10/05/2018 04:41 PM RDW 12.7 10/05/2018 04:41 PM PLTCT 220 10/05/2018 04:41 PM MPV 7.7 10/05/2018 04:41 PM No results found for: NEUT, ANC, LYMA, ALC, LIUDMILA, AMC, EOSA, AEC, BASA, ABC Point of Care Testing (Last 24 hours) Radiology and other Diagnostics Review: Surgical Pathology in p[progress 10/06 -CT Neck / Chest IMPRESSION 1. Subcutaneous air and pneumomediastinum centered [...] Correlate with troponin evaluation and patient symptoms. IMPRESSION 1. Interval tracheostomy and biopsy of a left glottic mass. Irregular enhancing ulcerated left glottic mass measuring up to 2.1 cm. Primarily left supraglottic extension into the left paraglottic fat with uplifting of the left false cord. No discrete cartilage invasion or subglottic extension is identified. 2. No cervical adenopathy. 10/06 PET IMPRESSION 1. Hypermetabolic left glottic mass, most compatible with a primary neoplasm. 2. No hypermetabolic regional nadeen or distant metastases. 3. Prior tracheostomy with mildly increased FDG uptake about the tracheostomy tube, likely postoperative in nature. Extensive pneumomediastinum and subcutaneous emphysema extending into the lower neck, likely postoperative. 4. Bibasilar atelectasis and/or pneumonitis. Active Hospital Problems Diagnosis Anxiety Depression Tobacco abuse Asthma Dysphagia Laryngeal mass Assessment/Plan: Jacki Madsen is a 58 y.o. female Awake tracheostomy, Direct microlaryngoscopy with Bx on 10/05. NEURO: Grossly intact, pain controlled. continue current pain regimen. Anxiety / depression continue home meds. 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 PULM: 6-0 uncuffed trach trach secured in place with soft tie. Stable on RA per TS. RT for aggressive pulmonary hygiene, breathing Txs as needed. Has not been tolerating SV -using finger occlusion for voicing. FLIGHT ENGINEER INSTRUCTOR following appreciate recs. CV: HDS, ECHO noted -VSS ID: Afebrile, completed ppx abx. GI/FEN: Tolerating reg diet. SLIV. LBM - URGENT CARE PHYSICIAN, Bowel regimen increased ENDO: TSH wnl : UOP adequate voiding spontaneously. PPX: SCD's, SQH, Pepcid DISP: Continue inpt status. Cleared by IM for OR. Plan to keep pt in house for Total Laryngectomy surgery 10/13. Kathy Kim APRN Pager [phone] ATIONS LABEL CLERK * Patrizia Ford, PT - 10/08/2018 2:44 PM OPERATIONS LABEL CLERK PHYSICAL THERAPY NOTE Patient observed mobilizing in hallway with OT without difficulty. Per discussion with OT, patient reports no concerns with mobility. Patient now up ad ibrahima within room. Per chart review, planned for OR 10/13. Will follow up for assessment 10/14. Therapist: Patrizia Ford, PT Date: 10/08/2018 ATIONS LABEL CLERK * Malissa Yao, OT - 10/08/2018 2:10 PM OPERATIONS LABEL CLERK OCCUPATIONAL THERAPY ASSESSMENT NOTE Patient Name: Jacki Madsen Room/Bed: [place] [address] Admitting Diagnosis: Laryngeal mass [J38.7] Mobility Progressive Mobility Level: Walk in hallway Distance Walked (feet): 600 ft Level of Assistance: Independent Assistive Device: None Time Tolerated: 11-30 minutes Activity Limited By: No limitations Subjective Pertinent Dx per Physician: TRACHEOSTOMY PLANNED AWAKE TRACHEOSTOMY Pain / Complaints: Patient agrees to participate in therapy;Patient has no c/o pain Comments: Patient supine in bed upon arrival of OT. Patient left supine in bed with all needs in reach. Objective Psychosocial Status: Willing and Cooperative to Participate Persons Present: Spouse Home Living Type of Home: Apartment Home Layout: One Level Bathroom Shower / Tub: Tub/Shower Unit Bathroom Toilet: Standard Comment: Patient reports 3 stairs to enter and 4 more stairs down to apartment Prior Function Level Of [place]: Independent with ADLs and functional transfers; Independent with homemaking w/ ambulation Lives With: Spouse Receives Help From: None Needed Homemaking Tasks: Meal Prep;Driving;Shopping Other Function Comments: Patient reports that she is very independent and active. Patient is only one in her family with drivers license Vision Comment: no acute visual changes ADL's Where Assessed: Standing at Sink;In Bathroom Grooming Assist: Independent Grooming Deficits: No Assist Needed LE Dressing Assist: Independent LE Dressing Deficits: No Assist Needed Toileting Assist: Independent Toileting Deficits: No Assist Needed Functional Transfer Assist: Independent Functional Transfer Deficits: No Assist Needed Comment: Supine>sit with independence. Patient ambulated around room and unit with independence. Patient steady on her feet with no loss of balance. Activity Tolerance Endurance: 3/5 Tolerates 25-30 Minutes Exercise w/Multiple Rests Sitting Balance: 4/5 Moves/Returns Trunkal Midpoint 1-2 Inches in Multiple Planes Cognition Overall Cognitive Status: WFL to Adequately Complete Self Care Tasks Safely Cognition Comment: new trach-able to cover for communication. Cannot tolerate speaking valve. UE AROM Overall BUE AROM WNL: Yes UE Strength / Tone Overall Strength / Tone: WFL Able to Perform ADL Tasks Education Persons Educated: Patient/Family Barriers To Learning: None Noted Interventions: Repetition of Instructions Teaching Methods: Verbal Instruction Patient Response: Verbalized Understanding Topics: Role of OT, Goals for Therapy Goal Formulation: With Patient Assessment Prognosis: Good Goal Formulation: Patient AM-PAC 6 Clicks Daily Activity Inpatient Putting on and taking off regular lower body clothes?: None Bathing (Including washing, rinsing, drying): None Toileting, which includes using toilet, bedpan, or urinal: None Putting on and taking off regular upper body clothing: None Taking care of personal grooming such as brushing teeth: None Eating meals?: None Daily Activity Raw Score: 24 Standardized (t-scale) score: 57.54 CMS 0-100% Score: 0 CMS G Code Modifier: CH Plan OT Frequency: Monitor Status OT Discharge Recommendations OT Discharge Recommendations: Home with family assist Equipment Recommendations: None Therapist: MAIKEL Gray/Xiomara [id number] Date: 10/08/2018 ATIONS LABEL CLERK * Kathy Kim, MINA-PEDIATRIC GENETIC COUNSELOR - 10/08/2018 10:24 AM OPERATIONS LABEL CLERK JOE/HNS Progress Note Today's Date: 10/08/2018 Admission Date: 10/05/2018 LOS: 3 days Subjective No acute events overnight. Denies breathing difficulties, N/V, chest pain. Tolerating po diet. Medications Scheduled Meds: antiseptic mucus solvent 120 mL solution 1-2 spray 1-2 spray Mucous Membrane Q2H while awake famotidine (PEPCID) tablet 20 mg 20 mg Oral BID heparin (porcine) PF syringe 5,000 Units 5,000 Units Subcutaneous Q8H pravastatin (PRAVACHOL) tablet 40 mg 40 mg Oral QHS QUEtiapine (SEROQUEL) tablet 500 mg 500 mg Oral QHS senna/docusate (SENOKOT-S) tablet 1 tablet 1 tablet Oral BID venlafaxine XR (EFFEXOR XR) capsule 75 mg 75 mg Oral QDAY w/breakfast Continuous Infusions: PRN and Respiratory Meds:acetaminophen Q4H PRN, albuterol 0.5% Q4H PRN, bisacodyl QDAY PRN, diphenoxylate/atropine QID PRN, milk of magnesia (CONC) QDAY PRN, morphine injection syringe Q2H PRN, ondansetron (ZOFRAN) IV Q6H PRN, oxyCODONE Q4H PRN Objective Vital Signs: Last Filed Vital Signs: 24 Hour Range BP: 123/73 (10/08 1000) Temp: 37.5 C (99.5 F) (10/08 1000) Pulse: 98 (10/08 1000) Respirations: 16 PER MINUTE (10/08 1000) SpO2: 97 % (10/08 1000) O2 Delivery: Trach Shield (10/08 1000) BP: (118-143)/(54-82) Temp: [36.9 C (98.5 F)-37.5 C (99.5 F)] Pulse: [85-118] Respirations: [14 PER MINUTE-18 PER MINUTE] SpO2: [92 %-98 %] O2 Delivery: Trach Shield Intensity Pain Scale (Self Report): 3 (10/08/18 0718) Vitals: 10/05/18 1355 Weight: 76.4 kg (168 lb 6.9 oz) CARLA drain output: none Intake/Output Summary: (Last 24 hours) Intake/Output Summary (Last 24 hours) at 10/08/2018 1032 Last data filed at 10/08/2018 1000 Gross per 24 hour Intake 120 ml Output Net 120 ml Stool Occurrence: 0 Physical Exam No Acute deficits 6-0 cuffed Loriley trach cuff down sutured in place. No bleeding at trach site Facial nerve function intact bilaterally Some voicing with finger occlusion, no stridor or stertor Nares patent bilaterally w/ no drainage SCDs in place bilaterally Tracheostomy Tube Exchange: After verbal consent was obtained, the patient was laid supine with the neck slightly extended. All existing ties and sutures were removed and the patient' s trachestomy tube was removed. The stoma was suctioned and cleaned and found to be patent. A 6.0 Shiley uncuffed tracheostomy tube was then inserted into the stoma with the obturator in place. The obturator was removed and the inner cannula placed. Soft ties were used to secure the new tracheostomy tube. The patient was returned to a comfortable position. The patient tolerated the procedure without complication. Lab Review Comprehensive Metabolic Profile Lab Results Component Value Date/Time NA 138 10/06/2018 08:45 AM K 4.4 10/06/2018 08:45 AM CL 107 10/06/2018 08:45 AM CO2 26 10/06/2018 08:45 AM GAP 5 10/06/2018 08:45 AM BUN 13 10/06/2018 08:45 AM CR 0.61 10/06/2018 08:45 AM GLU 94 10/06/2018 08:45 AM Lab Results Component Value Date/Time CA 9.3 10/06/2018 08:45 AM PO4 2.6 10/06/2018 08:45 AM ALBUMIN 4.0 10/06/2018 08:45 AM GFR >60 10/06/2018 08:45 AM GFRAA >60 10/06/2018 08:45 AM CBC w/Diff Lab Results Component Value Date/Time WBC 7.2 10/05/2018 04:41 PM RBC 4.23 10/05/2018 04:41 PM HGB 13.4 10/05/2018 04:41 PM HCT 40.1 10/05/2018 04:41 PM MCV 94.9 10/05/2018 04:41 PM MCH 31.7 10/05/2018 04:41 PM MCHC 33.4 10/05/2018 04:41 PM RDW 12.7 10/05/2018 04:41 PM PLTCT 220 10/05/2018 04:41 PM MPV 7.7 10/05/2018 04:41 PM No results found for: NEUT, ANC, LYMA, ALC, LIUDMILA, AMC, EOSA, AEC, BASA, ABC Point of Care Testing (Last 24 hours) Radiology and other Diagnostics Review: Surgical Pathology in p[progress 12/11 -CT Neck / Chest IMPRESSION 1. Subcutaneous air and pneumomediastinum centered [...] Correlate with troponin evaluation and patient symptoms. IMPRESSION 1. Interval tracheostomy and biopsy of a left glottic mass. Irregular enhancing ulcerated left glottic mass measuring up to 2.1 cm. Primarily left supraglottic extension into the left paraglottic fat with uplifting of the left false cord. No discrete cartilage invasion or subglottic extension is identified. 2. No cervical adenopathy. 10/06 PET IMPRESSION 1. Hypermetabolic left glottic mass, most compatible with a primary neoplasm. 2. No hypermetabolic regional nadeen or distant metastases. 3. Prior tracheostomy with mildly increased FDG uptake about the tracheostomy tube, likely postoperative in nature. Extensive pneumomediastinum and subcutaneous emphysema extending into the lower neck, likely postoperative. 4. Bibasilar atelectasis and/or pneumonitis. Active Hospital Problems Diagnosis Anxiety Depression Tobacco abuse Asthma Dysphagia Laryngeal mass Assessment/Plan: Jacki Madsen is a 58 y.o. female Awake tracheostomy, Direct microlaryngoscopy with Bx on 10/05. NEURO: Grossly intact, pain controlled. continue current pain regimen. Anxiety / depression continue home meds. ENT: Continue trach care, Ongoing FLIGHT ENGINEER INSTRUCTOR pre marine teaching. IM consulted for OR clearance appreciate recs. PULM: Trach changed to 6-[address] with soft tie. Stable on RA per TS. RT for aggressive pulmonary hygiene, breathing Txs as needed. FLIGHT ENGINEER INSTRUCTOR consulted for pre marine teaching CV: HDS, VSS ID: [id number], completed ppx abx. GI/FEN: per FLIGHT ENGINEER INSTRUCTOR passed Formal video swallow tolerating reg diet. SLIV. On bowel regimen. LBM - URGENT CARE PHYSICIAN Will add supp. ENDO: TSH wnl : UOP adequate voiding spontaneously. PPX: SCD's, SQH, Pepcid DISP: Continue inpt status. Plan to keep pt in house for Total Laryngectomy surgery 10/13. Kathy Kim APRN Pager [phone] ATIONS LABEL CLERK * Cheyenne Hernandez - 10/08/2018 8:27 AM OPERATIONS LABEL CLERK SPEECH-LANGUAGE PATHOLOGY TRACH/MAY COMM ASSESSMENT & DYSPHAGIA TREATMENT EVALUATION SUMMARY Eval Summary* Summary: A speaking valve evlauation was completed and dysphagia f/u tx. 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 Please see below for additional documentation. RECOMMENDATIONS: Pt is poor speaking valve candidate at this time. Use of finger occlusion for communication of short phrases/sentences combined w / ongoing use of written communication. Ongoing speech f/u for dysphagia tx. Swallow Strategies: Small Bites/Sips, Slow Rate of Intake, cough after every 3- 4 drinks of thin liquids Prognosis: (poor for toleration of speaking valve) Results Reported to Physician: (Yes, via EMR) Tracheostomy* Tracheostomy: Yes Trach Type: Loriley 6 Trach Cuff: No Ventilator: No Respiratory Status* Oral Secretions: (oral suction not needed) Tracheal Secretions: Suctioned by Staff(as needed; strong cough to expel secretions) Oxygen Saturation: Stable Upper Airway Obstruction: No Finger Occlusion* Comment: Upon entry to pt's room she was observed to spontaneously utilize finger occlusion at the phrase level. Vocal quality moderately strained and harsh w/ decreased volume. Speaking Valve* Speaking Valve Summary: Speaking valve placed x1 for a duration of one minute. Valve removed as pt reported shortness of breath with mildly increased work of breathing observed. When valve doffed moderate plosion of air observed indicating decreased toleration which would be consistent with pt's know vocal cord mass that extends inferiorly into the subglottis and blocks about 80-90% of the glottic airway per ENT documentation, impacting movement of air. Pt did not desire to attempt speaking valve placement again, and she celarly communicated she desires to communicate via written communication and/or w/ use of finger oclcusion at the phrase level. WRITING SKILLS Comment*: WNL. Pt utilizing whiteboard to communicate. DYSPHAGIA TREATMENT Goal : The pt will tolerate a regular diet w/ thin liquids w/ use of swallow strategies w/ < 5% overt s/s aspiration. Goal partially met Pt directly observed w/ thin liquids via cup which she tolerated free of overt s /s aspiration. Pt able to independently recall and communicate all three of her compensatory swallow strategies, as well as independent utilization w/ thin liquids during tx session. Pt was not directly observed w/ regular solids as she had just ordered am meal; however, she communicated w/ p.o. Intake on 10/07 she was free of overt s/s aspiration w/ solids and denied globus. Continue to address this goal Objective* Relevant Med Background: Jairo a 58 y.o.year old female evaluated on 10/05/2018, in the Otolaryngology-Head and Neck Surgery Clinic at the [facility]. The patient was referred by for evaluation of left vocal cord mass.Paitent notes about 9 month history of increasing throat pain and dysphonia. Patient finally went to Dr. De La Fuente who saw left vocal cord mass and sent for CT neck. No biopsy has been performed. She notes ongoing throat pain, bilateral otalgia with left being worse then right. She also notes ongoing dysphagia with trouble swallowing and intermittently coughing. She also notes her voice has completely disappeared over the last month. Continues to smoke and has smoked for 40 years more then 1ppd. Notes some weight loss and increasing trouble with PO intake. She also notes some trouble breathing especially at night and with exertion. Pt is now s/p awake tracheostomy, Direct microlaryngoscopy with Bx on 10/05. Procedure: Flexible fiberoptic nasopharyngoscopy/laryngoscopyas documented by ENT: "Procedure note/findings: After informed discussion of the risks, benefits, and alternatives after indications as noted above, a fiberoptic nasopharyngoscopy and laryngoscopy was recommended for above indications, and the patient consented to this. Nasal cavities were topically anesthetized and decongested with 4% lidocaine and Afrin solutions after which a flexible scope was easily advanced without difficulty into the left and right nasal cavities as well as into the nasopharynx. Nasal cavities were intact without gross mass or lesion. Nasopharynx, similarly, revealed no mass lesion or granularity. There was no ulceration. There was no gross asymmetry. Fossa of Rosenmueller was intact bilaterally. The eustachian tube orifices were intact bilaterally and patent. Posterior and lateral nasal pharyngeal mendosa were intact and symmetric without ulceration, mass, or granularity. Scope was now advanced distally. Visible oropharynx including lateral mendosa and tongue base was clear without lesion. Larynx and hypopharynx were examined. Larynx was intact. 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 Left cord is fixed, and right with good movement. No discrete masses or lesions in any location. Hypopharynx was clear without asymmetry. The scope was then withdrawn and removed.Shetolerated this well." Handedness: Right Hearing: WFL Psychosocial Status: Willing and Cooperative to Participate Persons Present: None Subjective* Pain: Patient has no complaint of pain Pain Level Current*: No pain Feeding Tube Present During Eval: None Education* Persons Educated: Patient Barriers To Learning: None Noted Interventions: Staff Educated Teaching Methods: Verbal Topics: Speaking Valve, Dysphagia Patient Response: Verbalized Understanding Goal Formulation: With Patient Therapist: Cheyenne Hernandez MA, L/CCC-FLIGHT ENGINEER INSTRUCTOR Voalte: [id number] Date: 10/08/2018 ATIONS LABEL CLERK * Georgia Waller, RT - 10/08/2018 5:05 AM OPERATIONS LABEL CLERK RT Adult Assessment Note NAME:Jacki Madsen :1960 AGE: 58 y.o. 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 Patient education that was completed: N/A Recommendations to the care team: N/A Vital Signs: Pulse: Pulse: 92 RR: Respirations: 16 PER MINUTE SpO2: SpO2: 94 % O2 Device: $$ O2 Device: Standby Liter Flow: O2 Liter Flow: 5 lpm O2%: O2 Percent: 21 % Breath Sounds: clear in upper lobes, decreased in bases. Respiratory Effort: Respiratory Effort: Non-Labored ATIONS LABEL CLERK * Rosita Dickerson M.Div, BCC - 10/07/2018 3:32 PM OPERATIONS LABEL CLERK Ironer Hand Note: Admit Date: 10/05/2018 The patient is Yazidi and does not attend faith. She cassius by believing that she "is in the hands of the Great Physician." Her boyfriend, Ernie, is trying to balance many challenges, including the car and the patient's daughter's medication as mentioned in the SW note. The patient is most worried about Ernie, who showed frustration and agitation before leaving the room. I stayed with the patient after he left to allow her space to communicate her worries concerning him. Date/Time: User: Pager: [phone] 10/07/2018 3:32 PM Rosita Dickerson M.Div, [facility] ATIONS LABEL CLERK * Cheyenne Hernandez - 10/07/2018 9:22 AM OPERATIONS LABEL CLERK SPEECH-LANGUAGE PATHOLOGY VIDEOSWALLOW ASSESSMENT EVALUATION SUMMARY Videoswallow Summary*: A videoswallow study was completed. The pt presented w/ mild oropharyngeal dysphagia. Inconsistent penetration observed w/ thin barium which appeared to be ejected from the laryngeal vestibule given cues to cough. Source of dysphagia appears to include impaired ROM secondary to pt's known head and neck tumor. Please see below for additional documentation. RECOMMENDATIONS: Regular solids & thin liquids w/ utilization of swallow strategies which were reviewed w/ pt upon completion of study. Ongoing dysphagia f/u x1-2 visits to ensure pt safely tolerating p.o. Intake and for ongoing education. Good oral care to minimize risk of aspirating bacteria in oral secretions. Communicated recs to Kathy PEDIATRIC GENETIC COUNSELOR w/ ENT team and pt's RN. MBSImp Scale: Lip closure for intraoral bolus containment resulted in no labial escape. Tongue control during bolus hold maintained a cohesive bolus held between tongue to palate seal. Bolus preparation and mastication resulted in slow, prolonged chewing/mashing but with complete re-collection. Bolus transport/ lingual motion was with slowed tongue motion.(anticipate behavioral in nature 2 * pt's reported odynophagia) Oral residue was not observed. There was complete oral clearance. Initiation of the pharyngeal swallow occured when the bolus head was in the pyriform sinuses. Soft palate elevation resulted in no bolus between the soft palate and the pharyngeal wall. Laryngeal elevation was decreased, with partial superior movement of the thyoid cartilage/partial approximation of the arytenoids to the epigoittic petiole. Anterior hyoid excursion demonstrated partial anterior movement. Epiglottic movement resulted in partial inversion. Laryngeal vestibular closure was incomplete, with narrow column of air/contrast noted within the laryngeal vestibule at the height of the swallow. Pharyngeal stripping wave was present, but diminished. Pharyngeal contraction could not be assessed due to logistical reasons not related to physiologic impairment. Pharyngoesophageal segment opening was completely distended for complete duration with no obstruction of bolus flow. Tongue base retraction allowed a narrow column of contrast of air between the retracted tongue base and the posterior pharyngeal wall. Pharyngeal residue was not present. There was complete pharyngeal clearance. Esophageal clearance in the upright position could not be assessed due to logistical reasons not related to physiologic impairment. Swallow Recommendations* Swallow Strategies: Small Bites/Sips, Slow Rate of Intake, cough after every 3- 4 drinks of thin liquids Plan*: (1-2 visits) Prognosis*: Good(w/ use of swallow strategies) NOMS Dysphagia Rating*: 5-Mild Dysphagia -Swallow safe w/ min diet restriction & /or occasionally requires min cues to use compensatory strategies. May occasionally self-cue. All nutrition/hydration needs met by mouth at mealtime. Penetration Aspiration Scale*: 2 - Material enters laryngeal vestibule, remains above vocal folds & is ejected Objective* Relevant Med Background: Jairo gregory 58 y.o.year old female evaluated on 10/05/2018, in the Otolaryngology-Head and Neck Surgery Clinic at the [facility]. The patient was referred by for evaluation of left vocal cord mass.Paitent notes about 9 month history of increasing throat pain and dysphonia. Patient finally went to Dr. De La Fuente who saw left vocal cord mass and sent for CT neck. No biopsy has been performed. She notes ongoing throat pain, bilateral otalgia with left being worse then right. She also notes ongoing dysphagia with trouble swallowing and intermittently coughing. She also notes her voice has completely disappeared over the last month. Continues to smoke and has smoked for 40 years more then 1ppd. Notes some weight loss and increasing trouble with PO intake. She also notes some trouble breathing especially at night and with exertion. Pt is now s/p awake tracheostomy, Direct microlaryngoscopy with Bx on 10/05. Procedure: Flexible fiberoptic nasopharyngoscopy/laryngoscopy as documented by ENT: "Procedure note/findings: After informed discussion of the risks, benefits, and alternatives after indications as noted above, a fiberoptic nasopharyngoscopy and laryngoscopy was recommended for above indications, and the patient consented to this. Nasal cavities were topically anesthetized and decongested with 4% lidocaine and Afrin solutions after which a flexible scope was easily advanced without difficulty into the left and right nasal cavities as well as into the nasopharynx. Nasal cavities were intact without gross mass or lesion. Nasopharynx, similarly, revealed no mass lesion or granularity. There was no ulceration. There was no gross asymmetry. Fossa of Rosenmueller was intact bilaterally. The eustachian tube orifices were intact bilaterally and patent. Posterior and lateral nasal pharyngeal mendosa were intact and symmetric without ulceration, mass, or granularity. Scope was now advanced distally. Visible oropharynx including lateral mendosa and tongue base was clear without lesion. Larynx and hypopharynx were examined. Larynx was intact. 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 Left cord is fixed, and right with good movement. No discrete masses or lesions in any location. Hypopharynx was clear without asymmetry. The scope was then withdrawn and removed.Shetolerated this well." Handedness: Right Hearing: WFL Psychosocial Status: Willing and Cooperative to Participate Persons Present: None Subjective* Pain: Patient has no complaint of pain Pain Level Current*: No pain Trach Presence: Yes Feeding Tube Present During Eval: None Nutrition* Nutrition Prior To Hospitalization: Regular, Thin Liquids Current Form Of Nutrition: NPO(sips of water w/ meds) Views / Seating* Views / Seating: Lateral View Barium Consist/Presentation* Presentations: Therapist Fed, Patient Fed Self Thin Liquid: 1 Tsp, Cup, Straw [place] Thick Liquid: 1 Tsp Other Consistencies: Pudding, Regular Solids Swallow Strategies Small Bites and Sips: Effective Slow Rate of Intake: Effective Education* Persons Educated: Patient Barriers To Learning: None Noted Interventions: Staff Educated, Family Educated Teaching Methods: Verbal, Printed Topics: Dysphagia Patient Response: Verbalized Understanding Goal Formulation: With Patient Videoswallow Goals* Goal : The pt will tolerate a regular diet w/ thin liquids w/ use of swallow strategies w/ < 5% overt s/s aspiration. Therapist: Cheyenne Hernandez MA, L/CCC-FLIGHT ENGINEER INSTRUCTOR Voalte: [phone] Date: 10/07/2018 ATIONS LABEL CLERK * Kathy Kim APRN-PEDIATRIC GENETIC COUNSELOR - 10/07/2018 8:07 AM OPERATIONS LABEL CLERK JOE/HNS Progress Note Today's Date: 10/07/2018 Admission Date: 10/05/2018 LOS: 2 days Subjective No acute events overnight. Denies breathing difficulties, N/V, chest pain. Discussed with pt options including Total Laryngectomy vs chemo/RAd vs nothing. Pt presently agreeable with surgery Medications Scheduled Meds: antiseptic mucus solvent 120 mL solution 1-2 spray 1-2 spray Mucous Membrane Q2H while awake famotidine (PEPCID) tablet 20 mg 20 mg Oral BID heparin (porcine) PF syringe 5,000 Units 5,000 Units Subcutaneous Q8H pantoprazole DR (PROTONIX) tablet 40 mg 40 mg Oral QDAY(21) senna/docusate (SENOKOT-S) tablet 1 tablet 1 tablet Oral BID Continuous Infusions: dextrose 5 % & 0.45% NaCl infusion 100 mL/hr at 10/07/18 0437 PRN and Respiratory Meds:acetaminophen Q4H PRN, albuterol 0.5% Q4H PRN, bisacodyl QDAY PRN, diphenoxylate/atropine QID PRN, milk of magnesia (CONC) QDAY PRN, morphine injection syringe Q2H PRN, ondansetron (ZOFRAN) IV Q6H PRN Objective Vital Signs: Last Filed Vital Signs: 24 Hour Range BP: 144/85 (12/12 0514) Temp: 37.2 C (98.9 F) (10/07 514) Pulse: 93 (10/07 514) Respirations: 16 PER MINUTE (10/07 514) SpO2: 93 % (10/07 514) O2 Delivery: Trach Shield (10/07 514) BP: (112-144)/(66-85) Temp: [36.8 C (98.2 F)-37.2 C (98.9 F)] Pulse: [88-101] Respirations: [16 PER MINUTE-18 PER MINUTE] SpO2: [92 %-96 %] O2 Delivery: Trach Shield Intensity Pain Scale (Self Report): 6 (10/07/18 05) Vitals: 10/05/18 1355 Weight: 76.4 kg (168 lb 6.9 oz) CARLA drain output: none Intake/Output Summary: (Last 24 hours) No intake or output data in the 24 hours ending 10/07/18 0807 Stool Occurrence: 0 Physical Exam No Acute deficits 6-0 cuffed Shiley trach cuff down sutured in place. No bleeding at trach site Facial nerve function intact bilaterally Unable to voice with finger occlusion, no stridor or stertor Nares patent bilaterally w/ no drainage SCDs in place bilaterally Lab Review Comprehensive Metabolic Profile Lab Results Component Value Date/Time NA 138 10/06/2018 08:45 AM K 4.4 10/06/2018 08:45 AM CL 107 10/06/2018 08:45 AM CO2 26 10/06/2018 08:45 AM GAP 5 10/06/2018 08:45 AM BUN 13 10/06/2018 08:45 AM CR 0.61 10/06/2018 08:45 AM GLU 94 10/06/2018 08:45 AM Lab Results Component Value Date/Time CA 9.3 10/06/2018 08:45 AM PO4 2.6 10/06/2018 08:45 AM ALBUMIN 4.0 10/06/2018 08:45 AM GFR >60 10/06/2018 08:45 AM GFRAA >60 10/06/2018 08:45 AM CBC w/Diff Lab Results Component Value Date/Time WBC 7.2 10/05/2018 04:41 PM RBC 4.23 10/05/2018 04:41 PM HGB 13.4 10/05/2018 04:41 PM HCT 40.1 10/05/2018 04:41 PM MCV 94.9 10/05/2018 04:41 PM MCH 31.7 10/05/2018 04:41 PM MCHC 33.4 10/05/2018 04:41 PM RDW 12.7 10/05/2018 04:41 PM PLTCT 220 10/05/2018 04:41 PM MPV 7.7 10/05/2018 04:41 PM No results found for: NEUT, ANC, LYMA, ALC, LIUDMILA, AMC, EOSA, AEC, BASA, ABC Point of Care Testing (Last 24 hours) Glucose: 94 (10/06/18 0845) POC Glucose (Download): 83 (10/06/18 4085) Radiology and other Diagnostics Review: Surgical Pathology in p[progress 10/06 -CT Neck / Chest IMPRESSION 1. Subcutaneous air and pneumomediastinum centered [...] Correlate with troponin evaluation and patient symptoms. IMPRESSION 1. Interval tracheostomy and biopsy of a left glottic mass. Irregular enhancing ulcerated left glottic mass measuring up to 2.1 cm. Primarily left supraglottic extension into the left paraglottic fat with uplifting of the left false cord. No discrete cartilage invasion or subglottic extension is identified. 2. No cervical adenopathy. 10/06 PET IMPRESSION 1. Hypermetabolic left glottic mass, most compatible with a primary neoplasm. 2. No hypermetabolic regional nadeen or distant metastases. 3. Prior tracheostomy with mildly increased FDG uptake about the tracheostomy tube, likely postoperative in nature. Extensive pneumomediastinum and subcutaneous emphysema extending into the lower neck, likely postoperative. 4. Bibasilar atelectasis and/or pneumonitis. Active Hospital Problems Diagnosis Tobacco abuse Asthma Dysphagia Laryngeal mass Assessment/Plan: Jacki Madsen is a 58 y.o. female Awake tracheostomy, Direct microlaryngoscopy with Bx on 10/05. NEURO: Grossly intact, pain controlled. continue current pain regimen ENT: Laryngeal cancer staging w/u - CT Neck / Chest, PET results noted and reviewed. FLIGHT ENGINEER INSTRUCTOR consulted for pre marine teaching PULM: 6-0 cuffed [address] sut[address] in place, cuff down plan to change to cuffless trach on POD # 3 08/08. Stable on RA per TS. RT for aggressive pulmonary hygiene , breathing Txs as needed. FLIGHT ENGINEER INSTRUCTOR consulted for pre marine teaching CV: HDS, VSS ID: [email or web address], completed ppx abx. GI/FEN: Seen by FLIGHT ENGINEER INSTRUCTOR- failed bedside swallow. Remains NPO - ok for few ice chips and sips of water. Formal swallow today. IV fluids while NPO. Monitor lytes replete as needed. Albumin / Prealbumin noted. On bowel regimen. LBM - URGENT CARE PHYSICIAN ENDO: TSH wnl : UOP adequate voiding spontaneously. PPX: SCD's, SQH, Protonix DISP: Continue inpt status. Plan to keep pt in house for Total Laryngectomy surgery 10/13. Kathy Kim APRN Pager [phone] ATIONS LABEL CLERK * Cheyenne Hernandez - 10/06/2018 3:54 PM OPERATIONS LABEL CLERK SPEECH-LANGUAGE PATHOLOGY CLINICAL SWALLOW ASSESSMENT EVALUATION SUMMARY Summary: A clinical swallow eval was completed after discussing pt w/ Kathy. The pt presented w/ moderate oropharyngeal dysphagia. Anticipate following sources contributing to known dysphagia: impaired ROM secondary to known mass and incomplete airway protection at level of vocal folds secondary to known left vocal cord in fixed position. Please see below for additional documentation. RECOMMENDATIONS: NPO however pt may have sips of water for comfort and to take high priority medications. Videoswallow study on 10/07 for further eval of pt's oropharyngeal swallow w/ additional recs to follow. Discussed pt w/ RN and Kathy upon completion of eval. Oral Stage Summary*: Within functional limits. Pt w/ normal bolus w/draw free of anteiror bolus spillage. Oral holding intermittently observed which was behavioral in nature w/ pt reporting doing this 2* odynophagia. She refused solids requiring mastication 2* odynophagia. Pharyngeal Stage Summary*: Suspect presence of moderate phrayngeal dypshagia. Swallow initiation timely-mildly delayed and laryngeal elevation judged to be decreased upon completion of laryngeal palpation. Pt presented w/ multiple swallows/bolus w/ thin, nectar and puree solids indicating presence of incomplete pharyngeal clearnace and/or penetation/aspiration. Comp swallow strategies did not minimize previously listed s/s. Pt w/ know L vocal fold imobility d/t know mass. Plan: (1-2 visits) Prognosis: Fair, Poor NOMS Dysphagia Ratin-Moderate Dysphagia -Alternative method of feeding needed. Pt takes < 50% of nutrition/hydration by mouth &/or swallow safe w/ consistent mod cueing to use compensatory strategies &/or requires max diet restriction. Results Reported to Physician: Yes Objective* Relevant Med Background: Jairo gregory 58 y.o.year old female evaluated on 10/05/2018, in the Otolaryngology-Head and Neck Surgery Clinic at the [facility]. The patient was referred by for evaluation of left vocal cord mass.Jujutent notes about 9 month history of increasing throat pain and dysphonia. Patient finally went to Dr. De La Fuente who saw left vocal cord mass and sent for CT neck. No biopsy has been performed. She notes ongoing throat pain, bilateral otalgia with left being worse then right. She also notes ongoing dysphagia with trouble swallowing and intermittently coughing. She also notes her voice has completely disappeared over the last month. Continues to smoke and has smoked for 40 years more then 1ppd. Notes some weight loss and increasing trouble with PO intake. She also notes some trouble breathing especially at night and with exertion. Pt is now s/p awake tracheostomy, Direct microlaryngoscopy with Bx on 10/05. Procedure: Flexible fiberoptic nasopharyngoscopy/laryngoscopy as documented by ENT: "Procedure note/findings: After informed discussion of the risks, benefits, and alternatives after indications as noted above, a fiberoptic nasopharyngoscopy and laryngoscopy was recommended for above indications, and the patient consented to this. Nasal cavities were topically anesthetized and decongested with 4% lidocaine and Afrin solutions after which a flexible scope was easily advanced without difficulty into the left and right nasal cavities as well as into the nasopharynx. Nasal cavities were intact without gross mass or lesion. Nasopharynx, similarly, revealed no mass lesion or granularity. There was no ulceration. There was no gross asymmetry. Fossa of Rosenmueller was intact bilaterally. The eustachian tube orifices were intact bilaterally and patent. Posterior and lateral nasal pharyngeal mendosa were intact and symmetric without ulceration, mass, or granularity. Scope was now advanced distally. Visible oropharynx including lateral mendosa and tongue base was clear without lesion. Larynx and hypopharynx were examined. Larynx was intact. 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 Left cord is fixed, and right with good movement. No discrete masses or lesions in any location. Hypopharynx was clear without asymmetry. The scope was then withdrawn and removed. She tolerated this well." Handedness: Right Hearing: WFL Psychosocial Status: Willing and Cooperative to Participate Persons Present: Daughter, Sig Other Subjective* Pain: Patient complains of pain(w/ swallowing) Trach Presence: Yes Feeding Tube Present During Eval: None Nutrition* Nutrition Prior To Hospitalization: Regular, Thin Liquids(w/ dysphagia s/s reported by pt) Current Form Of Nutrition: NPO Oral Mech Exam Oral Mech WFL*: Yes(aphonic d/t new trach ) Swallow Strategies Small Bites and Sips: Ineffective Slow Rate of Intake: Ineffective Head Turn Right: Not Effective Head Turn Left: Not Effective Education* Persons Educated: Patient Barriers To Learning: None Noted Interventions: Family Educated, Staff Educated Teaching Methods: Verbal Topics: Dysphagia Patient Response: Verbalized Understanding Goal Formulation: With Patient Clinical Swallow Goals* Goal : The pt will participate in a videoswallow study given min cues to utilize any indicated swallow strategies. Therapist:Cheyenne Hernandez MA, L/CCC-FLIGHT ENGINEER INSTRUCTOR Voalte: [id number] Date:10/06/2018 ATIONS LABEL CLERK * Cheyenne Hernandez - 10/06/2018 9:17 AM OPERATIONS LABEL CLERK SPEECH-LANGUAGE PATHOLOGY PRE-OPERATIVE LARYNGECTOMY SPEECH EVALUATION & EDUCATION EVALUATION SUMMARY Eval Summary* Summary: A pre-operative speech evaluation was completed after discussing pt w/ Kathy, PEDIATRIC GENETIC COUNSELOR w/ ENT team w/ strong focus placed on education. Pt now s/p awake tracheostomy, direct microlaryngoscopy w/ tx on 10/05 with plans to possibly undergo total laryngectomy however not yet scheduled. Written communication is the pt's current modality of communication. See below for additional documentation. RECOMMENDATIONS: Written expression w/ staff as modality of communication. Pt will benefit from ongoing speech therapy s/p laryngectomy, which is not yet scheduled, per discussion w/ Kathy, PEDIATRIC GENETIC COUNSELOR w/ ENT team. Will f/u for completion of clinical swallow eval as unable to complete this am d /t pt's NPO status for completion of PET. WRITTEN COMMUNICATION Comment*: Pt currently utilizing written expression (right handed) to communicate needs & ideas to staff w/ 100% legibility w/ use of whiteboard. EDUCATION: Written and verbal education regarding phonation and swallowing changes following surgery were thoroughly discussed. In addition, esophageal speech, electrolarynx use, and TEP were thoroughly discussed with the aid of pictures. The patient was also able to view a video that included education re: previously stated information. Ptverbalized understanding of education with good accuracy. The pt's significant other and daughter were present throughout the duration of education, however, were not interactive and did not ask questions. Should be noted pt's cognition was not formally evaluated. Additionally, discussed w/ pt importance of utilizing compensatory strategies to maximize intelligibility s/p laryngectomy including, slow rate of speech, exaggerated articulation. Also discussed use of plosives w/ demonstration provided. Demonstration of electrolarynx provided and communicated to pt she will receive an electrolarynx s/p laryngectomy while in the hospital. At this time pt was unable to communicate if she is interested in TEP and when questioned she reported she would not be able to confirm she would be able to return to the ENT clinical when her TEP leaks for replacement, which will possibly impact here candidacy for TEP. ORAL MECHANISM EVALUATION: Normal lingual, labial, and jaw ROM and strength w/ normal labial AMRs. Natural dentition in poor condition. Objective* Relevant Med Background: Jacki Madsen is a 58 y.o. year old female evaluated on 10/05/2018, in the Otolaryngology-Head and Neck Surgery Clinic at the [facility]. The patient was referred by Dr. De La Fuente for evaluation of left vocal cord mass. Paitent notes about 9 month history of increasing throat pain and dysphonia. Patient finally went to Dr. De La Fuente who saw left vocal cord mass and sent for CT neck. No biopsy has been performed. She notes ongoing throat pain , bilateral otalgia with left being worse then right. She also notes ongoing dysphagia with trouble swallowing and intermittently coughing. She also notes her voice has completely disappeared over the last month. Continues to smoke and has smoked for 40 years more then 1ppd. Notes some weight loss and increasing trouble with PO intake. She also notes some trouble breathing especially at night and with exertion. Pt is now s/p awake tracheostomy, Direct microlaryngoscopy with Bx on 10/05. Handedness: Right Hearing: WFL (in a quiet environment) Receives Help From: None Needed Vocational: Unemployed Psychosocial Status: Willing and Cooperative to Participate Persons Present: Significant other and pt's daughter Subjective* Pain: Patient has no complaint of pain Pain Level Current*: No pain Feeding Tube Present During Eval: none Education* Persons Educated: Patient Barriers To Learning: None Noted Interventions: Family Educated Teaching Methods: Verbal, Printed, Demonstration Topics: (electrolarynx, airway/breathing changes s/p laryngectomy) Patient Response: Verbalized Understanding Goal Formulation: With Patient Therapist: Cheyenne Hernandez MA, L/CCC-FLIGHT ENGINEER INSTRUCTOR Voalte: [id number] Date: 10/06/2018 ATIONS LABEL CLERK * Kathy Kim APRN-PEDIATRIC GENETIC COUNSELOR - 10/06/2018 7:48 AM OPERATIONS LABEL CLERK JOE/HNS Progress Note Today's Date: 10/06/2018 Admission Date: 10/05/2018 LOS: 1 day Subjective No acute events overnight. Denies breathing N/V chest pain. Medications Scheduled Meds: antiseptic mucus solvent 120 mL solution 1-2 spray 1-2 spray Mucous Membrane Q2H while awake diphenhydrAMINE (BENADRYL) injection 25 mg 25 mg Intravenous ONCE famotidine (PEPCID) tablet 20 mg 20 mg Oral BID heparin (porcine) PF syringe 5,000 Units 5,000 Units Subcutaneous Q8H pantoprazole DR (PROTONIX) tablet 40 mg 40 mg Oral QDAY(21) senna/docusate (SENOKOT-S) tablet 1 tablet 1 tablet Oral BID Continuous Infusions: sodium chloride 0.9 % with KCl 20 mEq/L infusion 100 mL/hr at 10/06/18 0238 PRN and Respiratory Meds:acetaminophen Q4H PRN, albuterol 0.5% Q4H PRN, bisacodyl QDAY PRN, diphenoxylate/atropine QID PRN, milk of magnesia (CONC) QDAY PRN, morphine injection syringe Q2H PRN, ondansetron (ZOFRAN) IV Q6H PRN Objective Vital Signs: Last Filed Vital Signs: 24 Hour Range BP: 133/71 (10/06 512) Temp: 36.7 C (98 F) (10/06 512) Pulse: 78 (10/06 512) Respirations: 14 PER MINUTE (10/06 512) SpO2: 97 % (10/06 512) O2 Delivery: Trach Shield (10/06 512) SpO2 Pulse: 91 (10/05 1747) Height: 170.2 cm (67") (10/05 135) BP: (110-149)/(71-105) Temp: [36.3 C (97.4 F)-36.7 C (98.1 F)] Pulse: [76-106] Respirations: [9 PER MINUTE-24 PER MINUTE] SpO2: [88 %-100 %] O2 Delivery: Trach Shield Intensity Pain Scale (Self Report): 6 (10/06/18 0356) Vitals: 10/05/18 1355 Weight: 76.4 kg (168 lb 6.9 oz) CARLA drain output: none Intake/Output Summary: (Last 24 hours) Intake/Output Summary (Last 24 hours) at 10/06/2018 0757 Last data filed at 10/05/2018 1620 Gross per 24 hour Intake 1000 ml Output Net 1000 ml Stool Occurrence: 0 Physical Exam No Acute deficits 6-0 cuffed Shiley trach sutured in place. No bleeding at trach site Facial nerve function intact bilaterally Unable to voice with finger occlusion, no stridor or stertor Nares patent bilaterally w/ no drainage SCDs in place bilaterally Lab Review Comprehensive Metabolic Profile Lab Results Component Value Date/Time NA 137 10/05/2018 04:41 PM K 3.3 (L) 10/05/2018 04:41 PM CL 104 10/05/2018 04:41 PM CO2 25 10/05/2018 04:41 PM GAP 8 10/05/2018 04:41 PM BUN 19 10/05/2018 04:41 PM CR 0.74 10/05/2018 04:41 PM GLU 169 (H) 10/05/2018 04:41 PM Lab Results Component Value Date/Time CA 8.9 10/05/2018 04:41 PM GFR >60 10/05/2018 04:41 PM GFRAA >60 10/05/2018 04:41 PM CBC w/Diff Lab Results Component Value Date/Time WBC 7.2 10/05/2018 04:41 PM RBC 4.23 10/05/2018 04:41 PM HGB 13.4 10/05/2018 04:41 PM HCT 40.1 10/05/2018 04:41 PM MCV 94.9 10/05/2018 04:41 PM MCH 31.7 10/05/2018 04:41 PM MCHC 33.4 10/05/2018 04:41 PM RDW 12.7 10/05/2018 04:41 PM PLTCT 220 10/05/2018 04:41 PM MPV 7.7 10/05/2018 04:41 PM No results found for: NEUT, ANC, LYMA, ALC, LIUDMILA, AMC, EOSA, AEC, BASA, ABC Point of Care Testing (Last 24 hours) Glucose: (!) 169 (10/05/18 1641) Radiology and other Diagnostics Review: Surgical Pathology in p[progress Active Hospital Problems Diagnosis Tobacco abuse Asthma Dysphagia Laryngeal mass Assessment/Plan: Jacki Madsen is a 58 y.o. female Awake tracheostomy, Direct microlaryngoscopy with Bx on 10/05. NEURO: Grossly intact, pain controlled. continue current pain regimen ENT: Laryngeal cancer staging w/u - CT Neck / Chest, PET today. FLIGHT ENGINEER INSTRUCTOR for pre marine teaching PULM: 6-[address] cuff taken down on rounds plan to change to cuffless trach on POD # 3 08/08. Stable on 28% O2 per TS. RT for aggressive pulmonary hygiene, breathing Txs as needed. CV: HDS, VSS ID: [id number], WBC 7.2, completed ppx abx. GI/FEN: NPO FLIGHT ENGINEER INSTRUCTOR for bedside swallow. IV fluids. Monitor lytes replete as needed. Albumin / Prealbumin pending On bowel regimen. LBM - URGENT CARE PHYSICIAN ENDO: TSH pending : UOP adequate voiding spontaneously. PPX: SCD's, SQH, Protonix DISP: Continue inpt status Kathy Kim APRN Pager [phone] ATIONS LABEL CLERK Associated attestation - Kalli Snyder MD - 10/07/2018 9:19 AM OPERATIONS LABEL CLERK ATTESTATION I personally performed the juarez portions of the E/M visit, discussed case with resident and concur with resident documentation of history, physical exam, assessment, and treatment plan unless otherwise noted. POD 1 s/p awake tracheostomy and DL with biopsy. She is recovering well. 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 She wishes to proceed with primary total laryngectomy with bilateral neck dissections. Will plan to discuss in head and neck tumor board. Staff name: Kalli Snyder MD Date: 10/07/2018 in this encounter H&P Notes * Derian Walton - 10/05/2018 12:29 PM OPERATIONS LABEL CLERK Chief Complaint Patient presents with New Patient vocal cords History of Present Illness: Jacki Madsen is a 58 y.o. year old female evaluated on 10/05/2018, in the Otolaryngology-Head and Neck Surgery Clinic at the [facility]. The patient was referred by Dr. De La Fuente for evaluation of left vocal cord mass. Paitent notes about 9 month history of increasing throat pain and dysphonia. Patient finally went to Dr. De La Fuente who saw left vocal cord mass and sent for CT neck. No biopsy has been performed. She notes ongoing throat pain , bilateral otalgia with left being worse then right. She also notes ongoing dysphagia with trouble swallowing and intermittently coughing. She also notes her voice has completely disappeared over the last month. Continues to smoke and has smoked for 40 years more then 1ppd. Notes some weight loss and increasing trouble with PO intake. She also notes some trouble breathing especially at night and with exertion. Cancer treatment summary: Cancer Staging No matching staging information was found for the patient. Past Medical/Surgical History She has a past medical history of Asthma and Hypertension. No past surgical history on file. Past surgical history reviewed and is otherwise noncontributory. Past Family/Social History No family history on file. Family history reviewed and is otherwise noncontributory. She reports that she has been smoking. She has been smoking about 0.50 packs per day. She does not have any smokeless tobacco history on file. She reports that she drinks alcohol. She reports that she uses drugs. Drug: Marijuana. Medications/Allergies/Immunizations Her current medication(s) include: CurrentMedications Current Outpatient Medications Medication Sig Dispense Refill albuterol 0.5% (PROVENTIL; VENTOLIN) 2.5 mg/0.5 mL IN Nebu Inhale 2.5 mg by mouth. aspirin EC 81 mg PO tablet Take 81 mg by mouth daily. cyclobenzaprine (FLEXERIL) 10 mg PO tablet Take 1 Tab by mouth three times daily as needed for Muscle Cramps. 21 Tab 0 DULOXETINE HCL (CYMBALTA PO) Take by mouth. DULOXETINE HCL (CYMBALTA PO) Take by mouth. esomeprazole DR(+) (NEXIUM) 40 mg PO capsule Take 40 mg by mouth every morning. hydrocodone/acetaminophen (VICODIN) 5/500 mg PO tablet Take 1 Tab by mouth every 6 hours as needed for Pain. 16 Tab 0 lidocaine (LIDODERM) 5 % TP topical patch Apply 1 Patch to top of skin as directed every 24 hours. METOPROLOL TARTRATE PO Take by mouth. nitroglycerin (NITROSTAT) 0.[address] 0.4 mg under tongue every 5 minutes as needed. pregabalin (LYRICA) 25 mg PO capsule Take 25 mg by mouth three times daily. No current facility-administered medications for this visit. Allergies: Iodine and Zocor [simvastatin] Review of Systems Constitutional: Negative for fever, weight loss and weight gain. Skin: Negative for rash, itchiness, dryness HENT: Negative for ear pain, sore throat and hoarseness. Negative for difficulty swallowing. Cardiovascular: Negative for chest pain and dyspnea on exertion (Can climb up 2 floors). Respiratory: Is not experiencing shortness of breath. Gastrointestinal: Negative for nausea and vomiting. Neurological: Negative for headaches. Lymph/Heme: Negative for lymphadenopathy or easy bruising Musculoskeletal: Negative for joint or muscle pain Psychiatric: The patient is not nervous/anxious. All other systems are negative except for that listed in the HPI. PHYSICAL EXAM: Vital Signs: BP 125/79 (BP Source: Arm, Right Upper, Patient Position: Sitting ) | Pulse 106 | Ht 170.2 cm (67") | Wt 76.4 kg (168 lb 6.4 oz) | BMI 26.38 kg/m General: Well-developed, well-nourished Communication and Voice: Very breathy and poor projection. Hearing: Hearing adequate for verbal communication bilaterally Inspection: Normocephalic and atraumatic without mass or lesion Palpation: Facial skeleton intact without bony stepoffs Parotid Glands: No mass or tenderness Facial Strength: Facial motility symmetric and full bilaterally Pinna: External ear intact and fully developed External canal: Canal is patent with intact skin Tympanic Membrane: Clear and mobile External nose: No scar or anatomic deformity Internal Nose: Septum intact and midline. No edema, polyp, or rhinorrhea. TMJ: No pain to palpation with full mobility Oral cavity, Lips, Teeth, and Gums: Mucosa and teeth intact and viable, No lesions, masses or ulcers. Poor dentition throughout. Oropharynx: No erythema or exudate, no masses or ulcerations, non-obstructive tonsils Nasopharynx: No mass or lesion with intact mucosa Hypopharynx: Not well visualized secondary to gagging Larynx: Not well visualized secondary to gagging Neck, Trachea, Lymphatics: Midline trachea without mass or lesion, no lymphadenopathy. Tender along left side Thyroid: No mass or nodularity Eyes: No nystagmus with equal extraocular motion bilaterally Neuro/Psych/Balance: Patient oriented and appropriate in interaction; Appropriate mood and affect; Gait is intact with no imbalance; Cranial nerves I -XII are intact Respiratory effort: Equal inspiration and expiration. Mild stridor on inspiration and severe wheezing. Peripheral Vascular: Warm extremities with equal pulses Procedure: Flexible fiberoptic nasopharyngoscopy/laryngoscopy Indications: Need for detailed exam, hyperactive gag reflex, inadequate mirror visualization. Surgeon: Kalli Snyder MD Procedure note/findings: After informed discussion of the risks, benefits, and alternatives after indications as noted above, a fiberoptic nasopharyngoscopy and laryngoscopy was recommended for above indications, and the patient consented to this. Nasal cavities were topically anesthetized and decongested with 4% lidocaine and Afrin solutions after which a flexible scope was easily advanced without difficulty into the left and right nasal cavities as well as into the nasopharynx. Nasal cavities were intact without gross mass or lesion. Nasopharynx, similarly, revealed no mass lesion or granularity. There was no ulceration. There was no gross asymmetry. Fossa of Rosenmueller was intact bilaterally. The eustachian tube orifices were intact bilaterally and patent. Posterior and lateral nasal pharyngeal mendosa were intact and symmetric without ulceration, mass, or granularity. Scope was now advanced distally. Visible oropharynx including lateral mendosa and tongue base was clear without lesion. Larynx and hypopharynx were examined. Larynx was intact. 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 Left cord is fixed, and right with good movement. No discrete masses or lesions in any location. Hypopharynx was clear without asymmetry. The scope was then withdrawn and removed. She tolerated this well. PATHOLOGY REVIEW: None RADIOLOGIC REVIEW: CT neck from outside reviewed. Shows left sided vocal cord mass IMPRESSION: My impression is that Ms. Madsen has larynx vocal cord mass which I would tentatively stage as a [id number] lesion based on imaging and physical exam. PLAN: After review of the various options including the risks, benefits and alternatives, Ms. Madsen has opted to proceed with surgery as part of her overall management which I believe is reasonable for her condition. This will include awake tracheostomy and direct laryngoscopy with biopsy. We had a long discussion with her and family today that her airway is very concerning and given she lives far away would like to get her admitted and perform surgery today to establish a safe airway. We discussed that after we stabilize her airway and get a diagnosis treatment options include chemo radiation versus total laryngectomy. We dicussed that given her breathing and already poor baseline swallowing, we are not optimistic about the end function of her larynx if we do pursue chemoradiation. They will think about this. We will hence proceed on getting her admitted and on the OR schedule today for awake tracheostomy and DL and biopsy. I believe that Ms. Madsen has a good understanding of the issues involved and I answered all of her questions. Derian Walton MD [id number] \\ ATIONS LABEL CLERK in this encounter Consult Notes * Jose Almanza MD - 10/19/2018 10:39 PM OPERATIONS LABEL CLERK Radiation Oncology Consult Today's Date: 10/19/2018 Admission Date: 10/05/2018 Assessment and Plan Jacki Madsen is a 58 y.o. female with resected larynx cancer Final results pending Extractions done Anticipate adjuvant radiation no chemo pending tumor board Goal of treatment is cure. Cure is not 100%. Side effects include fatigue, skin reaction, hair loss, nausea/vomiting, saliva and taste change, difficulty swallowing, change in blood counts, pain in mouth and throat, congestion. FCI risks including aspiration (inability to swallow safely), permanent saliva loss, tooth decay/gum disease, injury to jaw bone, nerves, muscles, blood vessels, spinal cord, other structures of the mouth and throat and shoulders, as well as possible thyroid changes, all reviewed. Thank you for consulting us to participate in the care of this patient with you. Please call with any questions. Patient seen and discussed with attending. Jose Almanza MD History of Present Illness Jacki Madsen is a 58 y.o. female with resected larynx cancer final pathology pending Extractions done Past Radiation History Past Medical History Past Medical History: Diagnosis Date Asthma Hypertension Uterine cancer (HCC) Past Surgical History Past Surgical History: Procedure Laterality Date HX HEART CATHETERIZATION HX HYSTERECTOMY Family History History reviewed. No pertinent family history. Social History Patient reports that she has been smoking. She has been smoking about 0.50 packs per day. she has never used smokeless tobacco. She reports that she drinks alcohol. She reports that she uses drugs. Drug: Marijuana. Allergies Liver; Iodine; and Zocor [simvastatin] Medications Scheduled Meds: acetaminophen (TYLENOL) oral solution 650 mg 650 mg Per NG tube Q4H antiseptic mucus solvent 120 mL solution 1 spray 1 spray Tracheal Tube Q2H while awake [START ON 10/20/2018] calcitriol (ROCALTROL) oral solution 0.5 mcg 0.5 mcg Per Corpak Tube QDAY calcium citrate (CALCITRATE) tablet 2,850 mg 2,850 mg Per NG tube TID docusate (COLACE) oral solution 100 mg 100 mg Per NG tube BID ergocalciferol (vitamin D-2) (CALCIFEROL) oral solution 50,000 Units 50,000 Units Oral Once per day on Fri famotidine (PEPCID) oral suspension 20 mg 20 mg Per NG tube BID gabapentin (NEURONTIN) oral solution 300 mg 300 mg Per NG tube Q8H heparin (porcine) PF syringe 5,000 Units 5,000 Units Subcutaneous Q8H levothyroxine (SYNTHROID) tablet 125 mcg 125 mcg Per NG tube QDAY 30 min before breakfast milk of magnesia (CONC) oral suspension 10 mL 10 mL Per NG tube QHS pantoprazole(#) (PROTONIX) suspension 40 mg 40 mg Per NG tube QDAY(21) pravastatin (PRAVACHOL) tablet 40 mg 40 mg Per NG tube QHS QUEtiapine (SEROQUEL) tablet 500 mg 500 mg Per NG tube QHS sodium chloride (SEA MIST) 0.65 % nasal spray 1-2 spray 1-2 spray Each Nostril Q2H venlafaxine (EFFEXOR) tablet 37.5 mg 37.5 mg Per NG tube BID w/meals Continuous Infusions: PRN and Respiratory Meds:albuterol 0.5% Q4H PRN, bisacodyl QDAY PRN, ipratropium bromide Q4H PRN, morphine injection syringe Q2H PRN, ondansetron ( ZOFRAN) IV Q6H PRN, oxyCODONE Q4H PRN, pancrelipase 20,000 Units/ sodium bicarbonate 650 mg(#) PRN (Manager Education from Rx), prochlorperazine Q6H PRN, traMADol Q4H PRN Review of Symptoms Objective Vital Signs BP 123/83 (BP Source: Arm, Left Upper) | Pulse 95 | Temp 36.3 C (97.3 F) | Ht 170.2 cm (67") | Wt 76.2 kg (168 lb) | SpO2 95% | BMI 26.31 kg/m Physical Exam Trach/edentulous Review of Studies Hematology: Recent Labs 10/17/18 0601 10/18/18 0610 10/19/18 0618 WBC 9.3 7.8 7.4 HGB 11.3* 11.4* 11.3* HCT 33.6* 33.6* 32.8* PLTCT 375 346 370 MCV 95.4 95.0 94.7 Chemistry: Recent Labs 10/17/18 0600 10/17/18 0601 10/17/18 1800 10/17/18 2220 10/18/18 0610 10/18/18 1800 10/19/18 0618 NA -- 137 -- -- 136* -- 137 K -- 3.5 -- -- 3.8 -- 4.2 CL -- 100 -- -- 101 -- 102 CO2 -- 26 -- -- 26 -- 25 BUN -- 13 -- -- 17 -- 19 CR -- 0.72 -- -- 0.74 -- 0.81 GLU -- 100 -- -- 128* -- 90 MG -- 2.0 -- -- 1.8 -- 2.0 CA 8.3* 8.5 9.1 8.8 8.8 9.2 8.8 PO4 -- 4.7* -- -- 4.8* -- 5.3* ALBUMIN -- 3.6 -- -- -- -- -- Pathology Pertinent pathology reviewed Radiology Pertinent radiology reviewed ATIONS LABEL CLERK * Mely Norris DDS - 10/16/2018 5:14 PM OPERATIONS LABEL CLERK General Consult Note Admission Date: 10/05/2018 LOS: 11 days Consults Reason for Consult: Consult type: Opinion and treatment Assessment/Plan Radiation map is not available at this time. I have reached out to ENT to get this information for me. Review of the panorex reveals #s 1, 16, 17 and 32 missing. 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 Tooth # 19 appears to have fractured structure- Hui Class II. Evidence of heavy calculus and poor HC. Tooth #7 was recently removed. IOE: Generalized caries with mobility associated with most lower teeth. Maxillary teeth have generalized Class V caries. Plan: After discussing her current poor dental health and possible risk of infection during therapy, I am recommending all teeth remaining be extracted. She has a large maxillary torus that should be removed prior to denture fabrication. She has been informed this will require removal at a later time as this is not offered as part of the service. All questions have been answered. I have informed her med team of my findings and plan. Consent will be obtained the day of surgery. History of Present Illness: Jacki Madsen is a 58 y.o. female History of Present Illness Past Medical History: Diagnosis Date Asthma Hypertension Uterine cancer (HCC) Past Surgical History: Procedure Laterality Date HX HEART CATHETERIZATION HX HYSTERECTOMY Social History Socioeconomic History Marital status: Single Spouse name: Not on file Number of children: Not on file Years of education: Not on file Highest education level: Not on file Social Needs Financial resource strain: Not on file Food insecurity - worry: Not on file Food insecurity - inability: Not on file Transportation needs - medical: Not on file Transportation needs - non-medical: Not on file Occupational History Not on file Tobacco Use Smoking status: Current Every Day Smoker Packs/day: 0.50 Smokeless tobacco: Never Used Substance and Sexual Activity Alcohol use: Yes Comment: rarely Drug use: Yes Types: Marijuana Sexual activity: Not on file Other Topics Concern Not on file Social History Narrative Not on file Family history reviewed; non-contributory Allergies: Liver; Iodine; and Zocor [simvastatin] Scheduled Meds: acetaminophen (TYLENOL) oral solution 650 mg 650 mg Per NG tube Q4H ampicillin/sulbactam (UNASYN) 3 g in sodium chloride 0.9% (NS) 100 mL IVPB (MB+ ) 3 g Intravenous Q6H* antiseptic mucus solvent 120 mL solution 1 spray 1 spray Tracheal Tube Q2H while awake calcitriol (ROCALTROL) oral solution 0.5 mcg 0.5 mcg Per Corpak Tube BID calcium citrate (CALCITRATE) tablet 2,850 mg 2,850 mg Per NG tube QID (See eMAR ) docusate (COLACE) oral solution 100 mg 100 mg Per NG tube BID ergocalciferol (vitamin D-2) (CALCIFEROL) oral solution 50,000 Units 50,000 Units Oral Once per day on Fri Alexandra famotidine (PEPCID) oral suspension 20 mg 20 mg Per NG tube BID gabapentin (NEURONTIN) oral solution 300 mg 300 mg Per NG tube Q8H heparin (porcine) PF syringe 5,000 Units 5,000 Units Subcutaneous Q8H levothyroxine (SYNTHROID) tablet 125 mcg 125 mcg Per NG tube QDAY 30 min before breakfast magnesium oxide (MAG-OX) tablet 400 mg 400 mg Oral BID magnesium sulfate 1 g/D5W 100 mL IVPB 1 g Intravenous ONCE milk of magnesia (CONC) oral suspension 10 mL 10 mL Per NG tube QHS pantoprazole(#) (PROTONIX) suspension 40 mg 40 mg Per NG tube QDAY() potassium phosphate (K-PHOS ORIGINAL) dispersable tablet 2 tablet 2 tablet Oral TID pravastatin (PRAVACHOL) tablet 40 mg 40 mg Per NG tube QHS QUEtiapine (SEROQUEL) tablet 500 mg 500 mg Per NG tube QHS sodium chloride (SEA MIST) 0.65 % nasal spray 1-2 spray 1-2 spray Each Nostril Q2H venlafaxine (EFFEXOR) tablet 37.5 mg 37.5 mg Per NG tube BID w/meals Continuous Infusions: PRN and Respiratory Meds:albuterol 0.5% Q4H PRN, bisacodyl QDAY PRN, ipratropium bromide Q4H PRN, morphine injection syringe Q2H PRN, ondansetron ( ZOFRAN) IV Q6H PRN, oxyCODONE Q4H PRN, pancrelipase 20,000 Units/ sodium bicarbonate 650 mg(#) PRN (Manager Education from Rx), prochlorperazine Q6H PRN, traMADol Q4H PRN Review of Systems: ROS Vital Signs: Last Filed in 24 hours Vital Signs: 24 hour Range BP: 115/62 (10/16 1324) Temp: 37.2 C (99 F) (10/16 132) Pulse: 93 (10/16 1340) Respirations: 18 PER MINUTE (10/16 1340) SpO2: 97 % (10/16 1340) O2 Delivery: None (Room Air) (10/16 1324) BP: (93-115)/(52-73) Temp: [36.9 C (98.5 F)-37.4 C (99.3 F)] Pulse: [86-103] Respirations: [17 PER MINUTE-18 PER MINUTE] SpO2: [92 %-98 %] O2 Delivery: None (Room Air) Physical Exam: Physical Exam Lab/Radiology/Other Diagnostic Tests: Pertinent labs reviewed Pertinent radiology reviewed. Mely Norris DDS [phone] Pager ATIONS LABEL CLERK * Rosita Dickerson M.Div [facility] - 10/16/2018 1:56 PM OPERATIONS LABEL CLERK Associated Order(s): CONSULT LIGHTOUT EXAMINER I have attempted several times over the last few days to visit the patient, but have been unable to connect. If the patient request a visit, please contact the oncall mechanical manufacturing technician. The spiritual care team is available as needed, 19/05, through the [employer] switchboard ([phone]). For immediate response, please page [phone]. For a response within 24 hours, please submit an order in O2 for a mechanical manufacturing technician consult or call the administrative voicemail at [phone]. 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 - Postoperative hypocalcemia 10/15/2018 : her calcium was 7.3, ionized calcium 0.76, PTH 4 - No history of head or neck radiation - patient is asymptomatic Post surgical hypothyroidism Recommendations/Plan: - Continue to monitor serial I.calcium every 8 hours. - increase calcium citrate to 2850 mg (elemental calcium 600 mg ) 4 times daily - will add calcitriol 0.5 mcg BID - will check vitamin D - Her weight-based levothyroxine requirement is around 125 mcg daily. Continue LT4 125 mcg daily . Will need tyroid function test in 6 weeks. Levothyroxine should be given at least 2 hours after holding tube feeds and tube feeds should be held for 1 hour after giving levothyroxine. ATTESTATION I personally performed the juarez portions of the E/M visit, discussed case with resident and concur with resident documentation of history, physical exam, assessment, and treatment plan unless otherwise noted. Staff name: Norberto Sykes MD Date: 10/15/2018 _ History of Present Illness: Jacki Madsen is a 58 y.o. female With a past medical history of hypertension, asthma who admitted to for total laryngectomy, total thyroidectomy. History is obtained from patient and chart review. Endocrinology is consulted for s/p total laryngetomy, thyroidectomy - hypocalcemia She is communicated with by writing down on her white board. She was found to have left vocal cord mass and a biopsy on 10/05/18 show moderately differentiated squamous cell carcinoma. She underwent total laryngectomy, total thyroidectomy with bilateral cervical lymphadenectomy on . She is currently taking levothyroxine 125 mcg, calcium citrate 1900 3 times daily with meals. She was found to have hypocalcemia. Today her calcium was 7.3, ionized calcium 0.76, PTH 4 She denies any tingling sensations in her hands or feet or numbness. She reported some headache today. Past Medical History: Diagnosis Date Asthma Hypertension Uterine cancer (HCC) Past Surgical History: Procedure Laterality Date HX HEART CATHETERIZATION HX HYSTERECTOMY History reviewed. No pertinent family history. Social History Socioeconomic History Marital status: Single Spouse name: Not on file Number of children: Not on file Years of education: Not on file Highest education level: Not on file Occupational History Not on file Tobacco Use Smoking status: Current Every Day Smoker Packs/day: 0.50 Smokeless tobacco: Never Used Substance and Sexual Activity Alcohol use: Yes Comment: rarely Drug use: Yes Types: Marijuana Sexual activity: Not on file Other Topics Concern Not on file Social History Narrative Not on file Immunizations (includes history and patient reported): There is no immunization history on file for this patient. Allergies: Liver; Iodine; and Zocor [simvastatin] Medications: Medications Prior to Admission Medication Sig desvenlafaxine succinate 25 mg Tb24 Take 75 mg by mouth daily. ibuprofen (MOTRIN) 800 mg tablet Take 1,600 mg by mouth every 12 hours as needed for Pain. Take with food. nitroglycerin (NITROSTAT) 0.[address] 0.4 mg under tongue every 5 minutes as needed. pravastatin (PRAVACHOL) 40 mg tablet Take 40 mg by mouth daily. QUEtiapine (SEROQUEL) 200 mg tablet Take 200 mg by mouth at bedtime daily. Take with 300 mg for a total of 500 mg daily QUEtiapine (SEROQUEL) 300 mg tablet Take 300 mg by mouth at bedtime daily. Take with 200 mg tablet for a total of 500 mg daily varenicline (CHANTIX CONTINUING MONTH BOX) 1 mg tablet Take 1 mg by mouth daily. Take with 8 oz of water and after a meal. Review of Systems: A 14 point review of system was positive for headche Physical Exam: Vital Signs: Last Filed In 24 Hours Vital Signs: 24 Hour Range BP: 125/62 (10/15 1000) Temp: 36.8 C (98.3 F) (10/15 1000) Pulse: 87 (10/15 1000) Respirations: 16 PER MINUTE (10/15 1000) SpO2: 95 % (10/15 1000) O2 Delivery: Trach Shield (10/15 1000) BP: (91-125)/(45-78) Temp: [36.8 C (98.3 F)-37.2 C (99 F)] Pulse: [87-102] Respirations: [15 PER MINUTE-18 PER MINUTE] SpO2: [92 %-95 %] O2 Delivery: Trach Shield Intensity Pain Scale (Self Report): 6 (10/14/18 1441) General: Alert, cooperative Head: Normocephalic Eyes: Conjunctivae/corneas clear. ENT: trach in place Lungs: Clear Heart: Regular rate and rhythm Abdomen: Soft, non-tender. Extremities: Extremities normal, no edema Skin: No rash or lesions noted INDUSTRIAL CAFETERIA MANAGER: Nonfocal, moves all extremities Lab: Recent Labs 10/13/18 1500 10/13/18 2330 10/14/18 0547 10/14/18 1030 10/14/18 1538 10/14/18 1815 10/14/18 2253 10/15/18 0315 NA -- -- 140 -- -- -- -- 138 K -- -- 3.7 -- -- -- -- 4.0 CL -- -- 106 -- -- -- -- 105 CO2 -- -- 26 -- -- -- -- 26 GAP -- -- 8 -- -- -- -- 7 BUN -- -- 12 -- -- -- -- 10 CR -- -- 0.87 -- -- -- -- 0.77 GLU -- -- 114* -- -- -- -- 104* CA 9.1 7.7* 8.1* 7.8* 7.6* 7.2* 7.5* 7.3* MG -- -- 2.1 -- -- -- -- 1.9 PO4 -- -- 3.3 -- -- -- -- 2.8 Recent Labs 10/14/18 0547 10/15/18 0315 WBC 8.0 9.0 HGB 11.1* 10.4* HCT 32.2* 30.5* PLTCT 260 232 Estimated Creatinine Clearance: 83.7 mL/min (based on SCr of 0.77 mg/dL). Vitals: 10/05/18 1355 10/08/18 1115 Weight: 76.4 kg (168 lb 6.9 oz) 76.2 kg (168 lb) Glucose, POC Date/Time Value Ref Range Status 10/06/2018 0943 83 70 - 100 MG/DL Final Radiology and other Diagnostics Review: Pertinent radiology reviewed. Polina Huang Endocrine Fellow Pager # [phone] 10/15/2018 ATIONS LABEL CLERK * Kelsy Holcomb, RD - 10/14/2018 3:50 PM OPERATIONS LABEL CLERK Associated Order(s): CONSULT DIETITIAN CLINICAL NUTRITION Clinical Nutrition Assessment Summary NAME:Jacki Madsen :1960 AGE: 58 y.o. ADMISSION DATE: 10/05/2018 DAYS ADMITTED: LOS: 9 days Nutrition Assessment of Patient: BMI Categories Adult: Over Weight: 25-29.9 Malnutrition Assessment: Does not meet criteria Current Oral Intake: NPO Estimated Calorie Needs: 8300-5419(30-35 kcal/kg desired wt) Estimated Protein Needs: 95-110(1.3-1.5g/kg desired wt) Oral Diet Order: NPO Current EN Order: Isosource 1.5 @ 20 ml/hr with goal of 60 ml/hr. 1980 kcal, 90 g protein and 1093 ml free water at goal over 22 hrs with presumed hold for Synthroid daily. Comments: 58 y.o.F w/ PMH including HTN, asthma and uterine CA. Admitted 10/05 for awake tracheostomy, Direct microlaryngoscopy with Bx. Was taking some po after video- swallow 10/07. S/p total laryngectomy 10/13 and currently NPO with feeding tube tip at gastric outlet per KUB 10/13. EN of Isosource 1.5 started @ 20 ml/ hr today. Consult received for EN recs. Pt with no unintentional wt loss or poor appetite/po intake noted URGENT CARE PHYSICIAN per screening. Will attempt to obtain subjective data at later date. Overweight per BMI. Has Synthroid per feeding tube. Recommendation: Recommend Isosource 1.5 @ 20 ml/hr with goal of 70 ml/hr to provide 2343 kcal, 105 g protein and 1170 ml free water from EN at goal over 22 hrs with presumed hold for Synthroid per feeding tube. Additional fluids per primary team with minimum of 30 ml NS/water q4hr for tube patency. Once continuous feeds tolerated if bolus feeds desired, recommend transition to 250 ml (1 carton) x 6 per day with 30 ml water flush before and after each feeding and 180 ml water bolus q6hr between feeds. To provide 2250 kcal, 102 g protein and 2220 ml free water at goal. No EN within 1 hr of Synthroid dose. Intervention / Plan: assessed kcal/protein goals; provided EN recs monitor EN tolerance/provision monitor wt trends, labs, meds, GI status Nutrition Diagnosis: Altered GI function Etiology: swallowing deficits s/p laryngectomy Signs & Symptoms: NPO with EN feeds Goals: EN tolerated and meeting >75% of nutritional needs Time Frame: Within 72 Hours Kelsy Holcomb, MS,RD, LD, CNSC *[id number] ATIONS LABEL CLERK * Fang Snell MD - 10/07/2018 2:08 PM OPERATIONS LABEL CLERK Associated Order(s): CONSULT INTERNAL MEDICINE PHYSICIAN Name: Jacki Madsen Admission Date: 10/05/2018 Assessment/Plan: Active Problems: Laryngeal mass Tobacco abuse Asthma Dysphagia Reason for consult: Surgery clearance - OR Total Laryngectomy scheduled 10/13 for left vocal cord mass 58 yo female with PMH significant for uterine cancer sp hysterectomy, fibromyalgia, schizophrenia, nicotine dependence, marijuana use, presenting for total Laryngectomy for left vocal cord mass Left vocal cord mass Total Laryngectomy scheduled 10/13 Management per primary team Hx of AR Patient reports she had a left heart cath done in 2009 at [facility] that showed LAD occlusion URGENT CARE PHYSICIAN Pravastatin 40 mg Fibromyalgia URGENT CARE PHYSICIAN Jabier venlafaxine 75 mg daily Hx of chronic LBP Patient reports bulging disc at C3/C4 Uses Ibuprofen 1600 mg Q12 for pain control Hx of schizophrenia URGENT CARE PHYSICIAN seroquel 200 mg and 300 mg at bedtime daily Nicotine dependence 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 Can use PRN Albuterol for symptom control if needed -No smoking (nictoine or marijuana) until surgery -Discussed the risks and benefits with the patient and at bedside of proceeding with surgery. Patient given a copy of her risks according to NSQIP calculator. Patient seen and discussed with Dr. Mims Thank you for the consult, we will sign off Fang Snell MD PGY1 Team pager [phone] __ Chief Complaint: Surgery clearance - OR Total Laryngectomy scheduled 10/13 for left vocal cord mass History of Present Illness: Jacki Madsen is a 58 y.o. female Per ENT HPI : The patient was referred by for evaluation of left vocal cord mass.Paitent notes about 9 month history of increasing throat pain and dysphonia. Patient finally went to Dr. De La Fuente who saw left vocal cord mass and sent for CT neck. No biopsy has been performed. She notes ongoing throat pain, bilateral otalgia with left being worse then right. She also notes ongoing dysphagia with trouble swallowing.She also notes her voice has completely disappeared over the last month. This afternoon patient is generally doing well. She states she has had dyspnea worse with exertion for the past 9 months. She denies orthopnea or using any pillows to sleep at night. She denies a history of heart failure however she states she had a right heart cath in 2009 which showed an anterior blockage. She also complains of a chronic dry non productive cough that has been ongoing for about a year now. She denies a history of diabetes, HTN, COPD, renal disease or stroke. She denies any serious illness requiring hospitalization in the past year. She admits to unintentional weight loss in the past few months that she attributes to trouble and pain with swallowing. She has been a smoker (on and off) for over 50 years. She smokes about a half pack per day. She also smokes marijuana everyday for pain control. She was unable to quantify how much she smokes. Drinks alcohol occasionally. Patient lives with her fiance of 12 years and is completely independent in her activities Patient denies FONTENOT, N, V, vision changes, chest pain, abdominal pain, diarrhea, constipation, fevers or chills. Past Medical History: Diagnosis Date Asthma Hypertension Uterine cancer (HCC) Past Surgical History: Procedure Laterality Date HX HEART CATHETERIZATION HX HYSTERECTOMY History reviewed. No pertinent family history. Social History Socioeconomic History Marital status: Single Spouse name: Not on file Number of children: Not on file Years of education: Not on file Highest education level: Not on file Social Needs Financial resource strain: Not on file Food insecurity - worry: Not on file Food insecurity - inability: Not on file Transportation needs - medical: Not on file Transportation needs - non-medical: Not on file Occupational History Not on file Tobacco Use Smoking status: Current Every Day Smoker Packs/day: 0.50 Substance and Sexual Activity Alcohol use: Yes Comment: rarely Drug use: Yes Types: Marijuana Sexual activity: Not on file Other Topics Concern Not on file Social History Narrative Not on file Immunizations (includes history and patient reported): There is no immunization history on file for this patient. Allergies: Liver; Iodine; and Zocor [simvastatin] Medications: Medications Prior to Admission Medication Sig desvenlafaxine succinate 25 mg Tb24 Take 75 mg by mouth daily. ibuprofen (MOTRIN) 800 mg tablet Take 1,600 mg by mouth every 12 hours as needed for Pain. Take with food. nitroglycerin (NITROSTAT) 0.[address] 0.4 mg under tongue every 5 minutes as needed. pravastatin (PRAVACHOL) 40 mg tablet Take 40 mg by mouth daily. QUEtiapine (SEROQUEL) 200 mg tablet Take 200 mg by mouth at bedtime daily. Take with 300 mg for a total of 500 mg daily QUEtiapine (SEROQUEL) 300 mg tablet Take 300 mg by mouth at bedtime daily. Take with 200 mg tablet for a total of 500 mg daily varenicline (CHANTIX CONTINUING MONTH BOX) 1 mg tablet Take 1 mg by mouth daily. Take with 8 oz of water and after a meal. Review of Systems: All other systems reviewed and are negative. Physical Exam: Vital Signs: Last Filed In 24 Hours Vital Signs: 24 Hour Range BP: 146/88 (10/07 1000) Temp: 37.2 C (99 F) (10/07 1000) Pulse: 92 (10/07 1154) Respirations: 16 PER MINUTE (10/07 1000) SpO2: 98 % (10/07 1000) O2 Delivery: None (Room Air) (10/07 1000) BP: (112-146)/(66-88) Temp: [36.8 C (98.2 F)-37.2 C (99 F)] Pulse: [88-93] Respirations: [16 PER MINUTE-18 PER MINUTE] SpO2: [92 %-98 %] O2 Delivery: None (Room Air) Intensity Pain Scale (Self Report): 4 (10/07/18 1154) General: Alert, cooperative, no distress, appears stated age Head: Normocephalic, without obvious abnormality, atraumatic Eyes: Conjunctivae/corneas clear. PERRL, EOMs intact. Neck: No JVD Lungs: Clear to auscultation bilaterally Heart: Regular rate and rhythm, S1, S2 normal, no murmur, click rub or gallop Abdomen: Soft, non-tender. Bowel sounds normal. No masses. No organomegaly. Extremities: Extremities normal, atraumatic, no cyanosis or edema Skin: Skin color, texture, turgor normal. No rashes or lesions Neurologic: Grossly intact Psych: Normal mood and affect Lab/Radiology/Other Diagnostic Tests: 24-hour labs: No results found for this visit on 10/05/18 (from the past 24 hour(s)). Pertinent radiology reviewed. Fang Snell MD ATIONS LABEL CLERK Associated attestation - Chris Mims MD - 10/07/2018 7:56 PM OPERATIONS LABEL CLERK ATTESTATION I have personally performed the juarez portions of the E/M visit, discussed case with Dr. GARCIA and concur with the documentation of history, physical exam, assessment, and treatment plan unless otherwise noted in blue italics. Ms. ASHER will be undergoing total laryngectomy next week. Her biggest perioperative risk is pneumonia given her recent smoking status. She does recall having lung function tests through her primary care physician that were "good". Spirometry is generally not worth repeating for perioperative evaluation as it does not limit surgery candidacy. Better predictors are sputum production functional capacity and shortness of breath with exertion. She does have some shortness of breath with exertion. According to the NSQIP database she is at lower than average risk for any complication, serious complication, respiratory failure, and other major factors. She is at less than normal risk for requiring a nursing facility after her hospitalization. We have printed out this database report and shared this with her. All questions were answered. She should proceed to surgery without further delay for medical testing. Staff name: Chris Mims MD Date: 10/07/2018 in this encounter Miscellaneous Notes * Care Plan - Kathy Ladd RN - 10/22/2018 11:08 AM OPERATIONS LABEL CLERK Problem: Pain Goal: Management of pain Outcome: Goal Achieved Date Met: 10/22/18 Patient states that tramadol and oxycodone are controlling pain adequately. Problem: Communication, Impaired Goal: Maximize functional communication Outcome: Goal Achieved Date Met: 10/22/18 Patient using dry erase board to communicate with nursing staff. Problem: Respiratory Impairment (Non-Ventilated Patient) Goal: Effective gas exchange Outcome: Goal Achieved Date Met: 10/22/18 Patient on room air and denies SOA. ATIONS LABEL CLERK * Case Mgmt DC Plan - Aurora Rutledge - 10/22/2018 7:10 AM OPERATIONS LABEL CLERK DOCUMENT PREPARER MICROFILMING Note: Requested by: BRITT Ayala [facility] the [facility] F:[phone] Via Jillian BESS F: [phone] Aurora Rutledge [employer] For additional assistance, please contact BRITT Ayala [phone] ATIONS LABEL CLERK * Case Mgmt DC Plan - Miranda Ayala - 10/21/2018 8:34 AM OPERATIONS LABEL CLERK Case Management Progress NoteNAME:Jacki Madsen :1960 AGE: 58 y.o. ADMISSION DATE: 10/05/2018 DAYS ADMITTED: LOS: 16 days Todays Date: 10/21/2018 Plan NCM reviewed chart and discussed POC with MINA/JOSÉ NCM coordinating d/c on 10/19 with Sheri/Ekaterina Walsh for equipment delivery of Bedside equipment NCM calling [facility] [phone]/ fax [phone] and alerting HISTORIOGRAPHY PROFESSOR of pt d/c today for same day SOC NCM alerting Via PAMELA Aparicio P: [phone] F: [phone] post procedure: Procedure(s) (LRB): VT LARYNGECTOMY TOTAL W/O RADICAL NECK DISSECTION [88822 (CPT)] CERVICAL LYMPHADENECTOMY (Bilateral) THYROIDECTOMY TOTAL DIRECT LARYNGOSCOPY DIAGNOSTIC TISSUE TRANSFER MUSCLE/ MYOCUTANEOUS/ FASCIOCUTANEOUS FLAP WITH VASCULAR PEDICLE - HEAD/ NECK (Bilateral) NCM to pt bedside to discuss d/c and NG feeds confirmed by PLAYER DEVELOPMENT EXECUTIVE and pt very upset she is d/c with NG feeds. NCM updated PLAYER DEVELOPMENT EXECUTIVE and post study and pt may possibly need to stay in hospital past today. PLAYER DEVELOPMENT EXECUTIVE to update pt once confirmed by Attending. NCM placed call to [employer] and confirmed they rec'd Marine orders and are working on approval for supplies. Zaira/[facility] has gotten them and her boss/Delon called Ernie and has made contact with him. UPDATE: Attending wants pt to stay overnight and see her in AM after starting ABX. NCM updated HISTORIOGRAPHY PROFESSOR [facility] [phone]/ fax [phone] Interventions ? Support Support: Patient Education, Other ? Info or Referral ? Discharge Planning ? Medication Needs ? Financial ? Legal ? Other Disposition ? Expected Discharge Date Expected Discharge Date: 10/19/18 ? Transportation Does the patient need discharge transport arranged?: Yes(Pt is only person in household that drives and drove friend car to clinic prior to emergent awake trach.) Does the patient use Medicaid Transportation?: No ? Next Level of Care (Acute Psych discharges only) ? Discharge Disposition Durable Medical Equipment Service Provider Request Status Selected Services Address Phone Number Fax Number OTHER Selected Durable Medical Equipment N/A Tiffany Espinal RN 10/14/2018 [address] [employer] [facility] (laryngectomy tube) Destination No service has been selected for the patient. Home Care Service Provider Request Status Selected Services Address Phone Number Fax Number [facility] Selected Home Health Services [address] [facility] [id number] Dialysis/Infusion No service has been selected for the patient. Michelle Ayala RN Nurse Director Of Provider Relations ATIONS LABEL CLERK * Operative Report (Direct Entry) - Mely Norris DDS - 10/19/2018 12:14 PM OPERATIONS LABEL CLERK OPERATIVE REPORT Name: Jacki Madsen is a 58 y.o. female : 1960 DATE OF OPERATION: 10/19/2018 Surgeon(s) and Role: * Mely Norris DDS - Primary Preoperative Diagnosis: * No pre-op diagnosis entered * * No Diagnosis Codes entered * Procedure(s): EXTRACTION TEETH 2,3,4,5,6,8,9,10,11,12,13,14,15,18,19,20,21,22,23,,24,25,26,27, 28,29,30,31, Anesthesia Type: General Description and Findings of Operative Procedure: Pt was brought to the OR and transferred. She was draped in the usual manner. Anesthesia was administered ( see anesthesia report). A time-out was taken. A single Ray-Buck was utilized as a throat pack. Local anesthetic was administered as follows: 13mL 0.5% bupivicaine 1:200K epi- bilateral- ELIAS/LB, PSA, MSA, ASA, GP, incisive. Simple extraction of teeth #s 2-6, 8-15, 18-31 through the use of elevation and forceps. Sockets were curettaged and irrigated with normal saline. Gelfoam placed in the sockets and interrupted 3-0 Chromic gut sutures were placed. The throat pack was removed. All teeth were sent for disposal only. All counts correct and verified. Pt was released to anesthesia and taken to the PACU in stable condition. Estimated Blood Loss: No blood loss documented. Specimen(s) Removed/Disposition: ID Type Source Tests Collected by Time Destination 1 : TEETH 2,3,4,5,6,8,9,10,11,12,13,14,15,18,19,20,21,22,23,,24,25,26,27,28,29, 30,31 Tissue Teeth/Tooth SURGICAL PATHOLOGY Mely Norris DDS 10/19 1214 Disposal only Attestation: I performed this procedure without the involvement of a resident. Mely Norris DDS [phone] Pager ATIONS LABEL CLERK * Care Plan - Sabrina Cooper RN - 10/19/2018 3:45 AM OPERATIONS LABEL CLERK Problem: Discharge Planning Goal: Participation in plan of care Outcome: Goal Ongoing Pt and actively participating in plan of care. All questions and concerns answered. Problem: Pain Goal: Management of pain Outcome: Goal Ongoing Pt utilizes pain scale and describes pain accordingly. Will monitor throughout the shift. Problem: Respiratory Impairment (Non-Ventilated Patient) Goal: Effective gas exchange Outcome: Goal Ongoing Pt demonstrates non-labored breathing at this time, RR b/w 16-20, O2 sats b/w 90 -98%. Pt has no c/o SOA. ATIONS LABEL CLERK * Care Plan - Sabrina Cooper RN - 10/18/2018 3:11 AM OPERATIONS LABEL CLERK Problem: Discharge Planning Goal: Participation in plan of care Outcome: Goal Ongoing Pt actively participating in plan of care. All questions and concerns answered. Problem: Pain Goal: Management of pain Outcome: Goal Ongoing Pt utilizes pain scale and describes pain accordingly. Will monitor throughout the shift. Problem: Respiratory Impairment (Non-Ventilated Patient) Goal: Effective gas exchange Outcome: Goal Ongoing Pt demonstrates non-labored breathing at this time, RR b/w 16-20, O2 sats b/w 90 -98%. Pt has no c/o SOA. ATIONS LABEL CLERK * Care Plan - Areli Lawler RN - 10/17/2018 1:31 AM OPERATIONS LABEL CLERK Problem: Discharge Planning Goal: Participation in plan of care Outcome: Goal Ongoing Pt updated on plan of care. Will continue to monitor. Problem: Pain Goal: Management of pain Outcome: Goal Ongoing Pt encouraged and educated to inform RN when in pain. Pain being managed via pharmacological interventions. Will continue to monitor. ATIONS LABEL CLERK * Care Plan - Namrata Lynch RN - 10/15/2018 7:33 PM OPERATIONS LABEL CLERK Problem: Pain Goal: Knowledge of pain management Outcome: Goal Ongoing Pain is being managed well with medication at this time. Problem: Infection, Risk of, Urinary Catheter-Associated Urinary Tract Infection Goal: Absence of urinary catheter-associated infection Outcome: Goal Achieved Date Met: 10/15/18 NA ATIONS LABEL CLERK * Case Mgmt DC Plan - Tiffany Espinal RN - 10/14/2018 3:02 PM OPERATIONS LABEL CLERK Case Management Progress NoteNAME:Jacki Madsen :1960 AGE: 58 y.o. ADMISSION DATE: 10/05/2018 DAYS ADMITTED: LOS: 9 days Todays Date: 10/14/2018 Plan Ongoing d/c planning. Interventions ? Support ? Info or Referral ? Discharge Planning Per conversation with primary team, patient anticipated d/c on 10/21/18. NCM updated [facility] [employer] and [facility]. Laryngectomy tube/supply order and supporting documents faxed via paper fax to [facility] by [facility]. ? Medication Needs ? Financial ? Legal ? Other Disposition ? Expected Discharge Date Expected Discharge Date: 10/19/18 ? Transportation Does the patient need discharge transport arranged?: Yes(Pt is only person in household that drives and drove friend car to clinic prior to emergent awake trach.) Does the patient use Medicaid Transportation?: No ? Next Level of Care (Acute Psych discharges only) ? Discharge Disposition Durable Medical Equipment Service Provider Request Status Selected Services Address Phone Number Fax Number OTHER Selected Durable Medical Equipment N/A Tiffany Espinal RN 10/14/2018 [address] [employer] [facility] (laryngectomy tube) Home Care Service Provider Request Status Selected Services Address Phone Number Fax Number [facility] Selected Home Health Services [address] [facility] [id number] BRIGIDO Carter, RN, CCRN, SCRN, CNRN Integrated Nurse Director Of Provider Relations Pager: [phone] ATIONS LABEL CLERK * Anesthesia Post Op Day 1 - Quintin Adams SRNA - 10/14/2018 10:26 AM OPERATIONS LABEL CLERK Anesthesia Follow-Up Evaluation: Post-Procedure Day One Name: Jacki Madsen : 1960 Age: 58 y.o. Sex : female Procedure Date: 10/13/2018 Procedure: Procedure(s) with comments: PRIMARY LARYNGECTOMY TOTAL WITH RADICAL NECK DISSECTION [15887 ([facility])] - CASE LENGTH 6 HOURS, REQUEST 0800 START CERVICAL LYMPHADENECTOMY THYROIDECTOMY TOTAL DIRECT LARYNGOSCOPY DIAGNOSTIC TISSUE TRANSFER MUSCLE/ MYOCUTANEOUS/ FASCIOCUTANEOUS FLAP WITH VASCULAR PEDICLE - HEAD/ NECK Physical Assessment Height: 170.2 cm (67") Weight: 76.2 kg (168 lb) Vital Signs (Last Filed in 24 hours) BP: 123/66 (10/14 0533) Temp: 37.2 C (99 F) (10/14 05) Pulse: 104 (10/14 0945) Respirations: 17 PER MINUTE (10/14 05) SpO2: 91 % (10/14 0533) O2 Delivery: None (Room Air) (10/13 1825) SpO2 Pulse: 84 (10/13 1600) Patient History Allergies Allergies Allergen Reactions Liver ANAPHYLAXIS Iodine NAUSEA AND VOMITING Zocor [Simvastatin] HIVES Medications Scheduled Meds: ampicillin/sulbactam (UNASYN) 3 g in sodium chloride 0.9% (NS) 100 mL IVPB (MB+ ) 3 g Intravenous Q6H* antiseptic mucus solvent 120 mL solution 1 spray 1 spray Tracheal Tube Q2H while awake calcium carbonate (OS-LEWIS) tablet 2,500 mg 2,500 mg Per NG tube TID w/ meals docusate (COLACE) oral solution 100 mg 100 mg Per NG tube BID famotidine (PEPCID) oral suspension 20 mg 20 mg Per NG tube BID gabapentin (NEURONTIN) oral solution 300 mg 300 mg Per NG tube Q8H heparin (porcine) PF syringe 5,000 Units 5,000 Units Subcutaneous Q8H [START ON 10/15/2018] levothyroxine (SYNTHROID) tablet 125 mcg 125 mcg Per NG tube QDAY 30 min before breakfast milk of magnesia (CONC) oral suspension 10 mL 10 mL Per NG tube QHS pantoprazole(#) (PROTONIX) suspension 40 mg 40 mg Per NG tube QDAY(21) pravastatin (PRAVACHOL) tablet 40 mg 40 mg Per NG tube QHS QUEtiapine (SEROQUEL) tablet 500 mg 500 mg Per NG tube QHS venlafaxine (EFFEXOR) tablet 37.5 mg 37.5 mg Per NG tube BID w/meals Continuous Infusions: sodium chloride 0.9 % with KCl 20 mEq/L infusion 100 mL/hr at 10/14/18 0423 PRN and Respiratory Meds:acetaminophen Q4H PRN, albuterol 0.5% Q4H PRN, bisacodyl QDAY PRN, ipratropium bromide Q4H PRN, morphine injection syringe Q2H PRN, ondansetron (ZOFRAN) IV Q6H PRN, oxyCODONE Q4H PRN, pancrelipase 20, 000 Units/ sodium bicarbonate 650 mg(#) PRN (Manager Education from Rx), prochlorperazine Q6H PRN, traMADol Q4H PRN Diagnostic Tests Hematology: Lab Results Component Value Date HGB 11.1 10/14/2018 HCT 32.2 10/14/2018 PLTCT 260 10/14/2018 WBC 8.0 10/14/2018 MCV 94.7 10/14/2018 MCH 32.5 10/14/2018 MCHC 34.4 10/14/2018 MPV 7.7 10/14/2018 RDW 12.7 10/14/2018 General Chemistry: Lab Results Component Value Date NA 140 10/14/2018 K 3.7 10/14/2018 CL 106 10/14/2018 CO2 26 10/14/2018 GAP 8 10/14/2018 BUN 12 10/14/2018 CR 0.87 10/14/2018 GLU 114 10/14/2018 CA 8.1 10/14/2018 ALBUMIN 4.0 10/06/2018 OBSCA 0.98 10/14/2018 MG 2.1 10/14/2018 PO4 3.3 10/14/2018 Coagulation: No results found for: PT, PTT, INR Follow-Up Assessment Patient location during evaluation: floor Anesthetic Complications: The patient experienced these anesthestic complications: PONV Pain: Score: 3 Management:adequate Level of Consciousness: awake and alert Hydration:acceptable Airway Patency: patent Respiratory Status: acceptable and room air Cardiovascular Status:acceptable and hemodynamically stable Regional/Neuroaxial: ATIONS LABEL CLERK * Operative Report (Direct Entry) - Kalli Snyder MD - 10/13/2018 8:40 AM OPERATIONS LABEL CLERK OPERATIVE REPORT Name: Jacki Madsen is a 58 y.o. 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 The mouth and neck were examined visually and by palpation. A Dedo laryngoscope was inserted into the oral cavity and gently passed to the oropharynx. Inspection of all subsites of the pharynx, larynx, and hypopharynx was performed. Attention to the larynx with high powered magnification using a al zia revealed a circumferential mass extending into the subglottis. The tumor appeared to be predominantly on the left side. The vallecula, pyriform sinuses and remaining pharynx was noted to be free of disease. Attention was turned to the patient's neck. The area was prepped and draped in a sterile fashion. A time out was performed for patient safety. An apron incision was marked out in the neck, and included a small margin of skin around the tracheostomy, to plan for the laryngectomy and any additional neck surgery. Subplatysmal flaps were raised in both the caudad and cephalad direction. 68526 - Total laryngectomy without radical neck dissection 97463 - Total thyroidectomy At this point, attention was turned to isolating the larynx from the remaining structures in the neck. The inferior cuts were made through the strap muscles to expose the underling trachea and thyroid gland. 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 Therefore the decision was made to perform total thyroidectomy. Dissection was performed along the capsule of the gland on the left taking care to preserve any parathyroid glands. The recurrent laryngeal nerve was identified and ligated. The procedure was repeated on the right side and the thyroid was left attached to the trachea. The dissection was then taken medial to the great vessels on both sides, along the thyroid cartilage, and up to the hyoid. The lateral aspect of the thyroid and the hyoid were skeletonized and the superior constrictor muscles were cut to expose the underlying pyriform sinuses. Dissection was then performed above the hyoid towards the mucosa of the vallecula. Once the larynx was isolated, an incision was planned into the trachea, below the level of the tumor. Oxygen delivery was dropped, and all precautions were taken, as we were operating in and around the airway at this point. A beveled incision was then made into the trachea, and brought down to the green party wall between trachea and esophagus. The trachea was then sewn with multiple interrupted sutures to the skin of the lower neck. The created a wide stomaplasty. The reinforced ET tube was brought in and out during the procedure, to allow better visualization. At this point, the incision was made at the level of the hyoid into the pharynx, and under direct visualization the remaining cuts were made around the tumor, sparing as much mucosa as was possible. This freed the larynx from the surrounding tissue. Frozen section margins were then taken. [id number] - Bilateral modified radial neck dissection Attention was turned to the Left neck, and dissection proceeded. The submandibular gland identified and dissected off the the underlying structures to expose the digastric tendon. Dissection was then performed along the digastric muscle to help identify and preserve the 12th cranial nerve, the jugular vein, the 11th cranial nerve and the sternocleidomastoid muscle. All of these structures were visualized and left intact. Dissection was then performed around these structures, unwrapping the fascia on the underside of the SCM in order to exposure the lymphatics in the deep neck. The cervical rootlets were then identified, and used as a posterior and deep boundary for dissection. The inferior extent of the surgery was then determined, and the lymphatics in this region were dissected and ligated from the remaining underlying lymphatics of the supraclavicular region. The entire specimen was then retracted medially, onto the carotid sheath, at which point it was carefully resected off of the jugular vein and carotid artery. Attention was then turned to the Right neck, and an incision was made from the region of the mastoid tip to the mid neck, in the direction of the relaxed skin tension lines. Sub-platysmal flaps were created in the caudad and cephalad direction. The flaps were then tacked to the drapes, and the dissection of the nadeen basins was performed. The marginal mandibular branch of the facial nerve was then identified, dissected free from the underlying tissues and raised over the mandible, and dissection proceeded. The submandibular gland was then dissected off the the underlying structures, exposing the digastric tendon. Dissection was then performed along the digastric muscle to help identify and preserve the 12th cranial nerve, the jugular vein, the 11th cranial nerve and the sternocleidomastoid muscle. All of these structures were visualized and left intact. Dissection was then performed around these structures, unwrapping the fascia on the underside of the SCM in order to exposure the lymphatics in the deep neck. The cervical rootlets were then identified, and used as a posterior and deep boundary for dissection. The inferior extent of the surgery was then determined, and the lymphatics in this region were dissected and ligated from the remaining underlying lymphatics of the supraclavicular region. The entire specimen was then retracted medially, onto the carotid sheath, at which point it was carefully resected off of the jugular vein and carotid artery. The defect was then closed primarily, by creating an imbricating suture line. Meticulous attention was then paid to confirming no evidence of leak. A leak test was then performed and showed no evidence of pharyngeal leak. The stoma was then matured using 3-0 monocryl half vertical mattress sutures. Care was taken to create a wide stoma to avoid stenosis. 90366-17 - Bilateral sternocleidomastoid muscle advancement rotation flaps In order to help improve the appearance and functionality of the stoma, bilateral SCM flaps were harvested by detaching the medial heads of the SCM muscle and carefully rotating them medially over the great vessels to help protect them and the flatten to area around the stoma. The flaps were then secured to the prevertebral fascia using 3-0 vicryl suture. The area was irrigated, full hemostasis was confirmed, valsalva maneuver was performed, and hemostasis was again confirmed. No chyle leak was noted. 3 #19 CARLA drains were placed into the neck and the incision was meticulously closed in multiple layers. Estimated Blood Loss: 150 ml Specimen(s) Removed/Disposition: ID Type Source Tests Collected by Time Destination 1 : RIGHT NECK DISSECTION - ROUTINE Tissue Neck,Right SURGICAL PATHOLOGY Kalli Snyder MD 10/13/2018 0947 2 : LEFT NECK DISSECTION Tissue Neck,Left SURGICAL PATHOLOGY Kalli Snyder MD 10/13/2018 0952 3 : LARYNX AND TOTAL THYROID - ROUTINE Tissue Larynx SURGICAL PATHOLOGY Kalli Snyder MD 10/13/2018 1201 4 : RIGHT HYPOPHARYNX - FROZEN Tissue Hypopharynx SURGICAL PATHOLOGY Kalli Snyder MD 10/13/2018 1211 5 : LEFT HYPOPHARYNX - FROZEN Tissue Hypopharynx SURGICAL PATHOLOGY Kalli Snyder MD 10/13/2018 1212 6 : BASE OF TONGUE MM -FROZEN Tissue Tongue SURGICAL PATHOLOGY Kalli Snyder MD 10/13/2018 1212 7 : POST CRICOID - FROZEN Tissue Pharynx SURGICAL PATHOLOGY Kalli Snyder MD 10/13/2018 1213 Attestation: I performed this procedure with a resident. Kalli Snyder MD Pager ATIONS LABEL CLERK * Care Plan - Rivera Rubalcava RN - 10/13/2018 5:45 AM OPERATIONS LABEL CLERK Problem: Discharge Planning Goal: Participation in plan of care Outcome: Goal Ongoing Plan for OR today 10/13. Pt active in plan of care. Discharge ongoing. Problem: Pain Goal: Management of pain Outcome: Goal Ongoing Pt reports minimal pain this shift. Pt aware of pain management interventions. Pain well controlled. ATIONS LABEL CLERK * Care Plan - Elvi Goodrich RN - 10/11/2018 10:43 PM OPERATIONS LABEL CLERK Problem: Discharge Planning Goal: Knowledge regarding plan of care Outcome: Goal Ongoing Pt participating in plan of care. Pt receiving education on tracheostomy care and infection prevention. ATIONS LABEL CLERK * Care Plan - Tova Garces RN - 10/09/2018 5:31 PM OPERATIONS LABEL CLERK Problem: Falls, High Risk of Goal: Absence of falls-Adult Patient Outcome: Goal Achieved Date Met: 10/09/18 Patient ad ibrahima ATIONS LABEL CLERK * Care Plan - Jonathon Martínez - 10/08/2018 4:46 PM OPERATIONS LABEL CLERK Problem: Tobacco Use Goal: Knowledge of tobacco-use cessation methods Outcome: Goal Achieved Date Met: 10/08/18 [employer] CONSULTATION ASSESSMENT/RECOMMENDATIONS Patient was referred for [employer] consultation Tobacco Use Treatment Practical Counseling was provided, including recognizing danger situations, developing coping skills and providing basic information about quitting. MEDICATION RECOMMENDATIONS TO QUIT TOBACCO: In-patient quit-tobacco medication: If acceptable, please provide Chantix, 1 mg bid. She has been using since 09/22/18 and has been taking 1 mg once a day. Did not know to begin using 1 mg bid on day 8. Discharge medication options: Pt plans to continue using Chantix. She has a prescription she was using at home with 2 refills. Post discharge support referral: Accepted SmokefreeTXT.gov, Will call quitline when able to speak on telephone. [employer] Educational Material: Accepted History of Present Illness Reports using 30 cigarettes per day, until just prior to coming to the hospital, when she reduced to 10 cigarettes a day. Her quit date was 10/05/2018 Reports using tobacco within 5 minutes minutes of waking. E-Cigarette or vape use: None Other tobacco use: None Years used: 51 Withdrawal: No nicotine withdrawal based upon the patients rating on the Nicotine Withdrawal Behavior Rating Scale. Patient lives with other smokers or vapers Set a quit date: Yes, 10/05/18 Plan about smoking after patient leaves the hospital: I plan to stay quit when I leave the hospital Interest in quitting: high Contact Information If I can be of further assistance, please call [employer] [phone] ATIONS LABEL CLERK * Care Plan - Meron Mcdaniels RN - 10/07/2018 5:49 PM OPERATIONS LABEL CLERK Problem: Discharge Planning Goal: Participation in plan of care Outcome: Goal Ongoing Patient and are very involved in care and she is able to make decisions for herself. Goal: Knowledge regarding plan of care Outcome: Goal Ongoing Patient is knowledgable about plan of care. RN will continue to educate patient as needed. ATIONS LABEL CLERK * Case Mgmt DC Plan - Victorina Doe - 10/07/2018 12:50 PM OPERATIONS LABEL CLERK Case Management Progress NoteNAME:Jacki Madsen :1960 AGE: 58 y.o. ADMISSION DATE: 10/05/2018 DAYS ADMITTED: LOS: 2 days Todays Date: 10/07/2018 Plan SW notified by the RNCM that pt's 'daughter' has been without medication for 3 days now and is in need of medicine. Interventions ? Support ? Info or Referral ? Discharge Planning Pt borrowed a car to come up to her outpatient appointment. The car remains in the parking garage. Pt concerned that her friend may become angry b/c he expected them to return same day with the car. Pt and her s/o are working on finding someone to come get the vehicle to take back to [place]. Pt's s/o cannot drive, as his license has been revoked. Pt's friend, Donna, cannot drive d/t her seizures. Pt will not be able to drive home d/t being on pain medicines. SW can assist with arranging medicaid transport home. JOSÉ CM cannot assist with figuring out how to get pt's friends' car back to [place], [place]. ? Medication Needs ? Financial ? Legal ? Other SW stopped by and assisted pt's friend, Donna Donald ([birth year]); who stated that she has heart failure, epilepsy and schitzophrenia that she needs meds for daily. She receives a bubble back 2x/day by a rn homecare. She admits that she will sometimes radha her medicines and when she feels sad take a lot at a time; which is why she needs a rn homecare to dispense her medicines. SW called pt's rn homecare with pt, and she recommended that SW call pt's pharmacy to see if they can transfer 1 dose for pt. SW left a message and they cannot send an order for one dose. SW did call [facility] [employer] and they can transport pt back home (where pt assured SW that she has a juarez and is safe with food and formal support--case management help). [facility] ([phone]) is set to pick up man Donna at 4:00 today to go back to [place] ([address], [facility] [address]). Donna aware of the ride back and anticipated pick up man time . SW also provided Donna with [employer] phone #. Medicaid Where's my ride: [phone] Confirmation #[id number] Pt's s/o Buddy Gallegos also asked to talk with JOSÉ. He is concerned that his antidepressant runs out tomorrow. SW called down to [facility] to see if they have pt's medicine in stock and would call pt's primary pharmacy to transfer his refill. [facility] is to call Buddy back about that question. Disposition ? Expected Discharge Date Expected Discharge Date: 10/09/18 ? Transportation Does the patient need discharge transport arranged?: Yes(Pt is only person in household that drives and drove friend car to clinic prior to emergent awake trach.) Does the patient use Medicaid Transportation?: No ? Next Level of Care (Acute Psych discharges only) ? Discharge Disposition Durable Medical Equipment No service has been selected for the patient. Destination No service has been selected for the patient. Home Care No service has been selected for the patient. Dialysis/Infusion No service has been selected for the patient. Victorina Doe LMSW *[phone] ATIONS LABEL CLERK * Care Plan - Meron Mcdaniels RN - 10/06/2018 3:23 PM OPERATIONS LABEL CLERK Problem: Discharge Planning Goal: Participation in plan of care Outcome: Goal Ongoing Patient is very involved in care and makes decisions for herself. Goal: Knowledge regarding plan of care Outcome: Goal Ongoing Patient is knowledgable about plan of care. RN will continue to educate patient as needed. ATIONS LABEL CLERK * Case Mgmt DC Plan - Miranda Ayala - 10/06/2018 1:08 PM OPERATIONS LABEL CLERK Case Management Admission AssessmentNAME:Jacki Madsen :1960 AGE: 58 y.o. ADMISSION DATE: 10/05/2018 DAYS ADMITTED: LOS: 1 day Todays Date: 10/06/2018 Source of Information:patient SO/[place] Plan Plan: Case Management Assessment, Assist PRN with SW/NCM Services, Discharge Planning for Home Anticipated NCM to pt bedside where she was off unit for scans NCM able to complete assessment with SO/Buddy and daughter Pt owns DME of [facility] and SO denies ever having HISTORIOGRAPHY PROFESSOR in past NCM discussing d/c dispo and need for DME and HISTORIOGRAPHY PROFESSOR SO denies neither he or pt have preference for agency and request one within network and service home area. NCM inform Buddy [phone] F: [phone] NCM informed Buddy that [facility] HISTORIOGRAPHY PROFESSOR [facility] [place] P: [phone] F: [phone] is able to accept pt upon d/c with new trach for same day SOC. NCM to await bedside s/s to see recs on feeds at d/c. Patient Address/Phone [address] [address] (home) Emergency Contact Extended Emergency Contact Information Primary Emergency Contact: Buddy Gallegos [facility] Mobile Relation: Significant Other Hair Spring Cutter needed? No Healthcare Directive Healthcare Directive: No, patient does not have a healthcare directive Would patient like to fill out a (a new) Healthcare Directive?: No, patient declined Psych Advance Directive (Psych unit only): No, patient does not have a Psych Advance Directive Transportation Does the patient need discharge transport arranged?: Yes(Pt is only person in household that drives and drove friend car to clinic prior to emergent awake trach.) Does the patient use Medicaid Transportation?: No Expected Discharge Date Expected Discharge Date: 10/09/18 Living Situation Prior to Admission ? Living Arrangements Type of Residence: Home, independent Living Arrangements: Spouse/significant other, Children Bathroom Shower / Tub: Tub/Shower Unit How many levels in the residence?: 1 Can patient live on one level if needed?: Yes Does residence have entry and/or side stairs?: Yes(4 steps down to apt level) Assistance needed prior to admit or anticipated on discharge: Yes Who provides assistance or could if needed?: SO/Buddy Are they in good health?: Yes Can support system provide 24/7 care if needed?: Yes ? Level of Function Prior level of function: Independent ? Cognitive Abilities Cognitive Abilities: Continue to Assess(pt off unit for scan) Financial Resources ? Coverage Primary Insurance: Medicaid([employer]) ? Source of Income Source Of Income: SSDI(pt approved for SSDI this yr $750/mo) ? Financial Assistance Needed? copay affordable Psychosocial Needs ? Mental Health Mental Health History: Yes Agency name[facility] Mental Health Provider: Dr Tom ? Substance Use History Substance Use History Screen: Yes Comment: pt smoked 1.5 PPD, now smokes 1/2 ppd cigaretts for at least the 12 yrs SO has known her ? Other na Current/Previous Services ? PCP Chris Ohara, , ? Pharmacy [address] [address] ? Durable Medical Equipment Durable Medical Equipment at home: Single Point Cane ? Home Health Receiving home health: No ? Hemodialysis or Peritoneal Dialysis Undergoing hemodialysis or peritoneal dialysis: No ? Tube/Enteral Feeds Receive tube/enteral feeds: No ? Infusion Receive infusions: No ? Private Duty Private duty help used: No ? Home and Community Based Services Home and community based services: No ? Romain Warner: N/A ? Hospice Hospice: No ? Outpatient Therapy PT: No OT: No FLIGHT ENGINEER INSTRUCTOR: No ? Long Term Facility/Fci SNF: No NH: No ? Inpatient Rehab IPR: No ? Long-Term Acute Care Hospital LTACH: No ? Acute Hospital Stay Acute Hospital Stay: No Michelle Morphew RN Nurse Director Of Provider Relations ATIONS LABEL CLERK * Case Mgmt DC Plan - Aurora Rutledge - 10/06/2018 9:15 AM OPERATIONS LABEL CLERK DOCUMENT PREPARER MICROFILMING Note: Emailed a list of in network list of HISTORIOGRAPHY PROFESSOR and DME to RNCM per the request of RNCORI Ayala. Aurora Rutledge Shell Fisherman For additional assistance, please contact RNCM Michelle Ayala [phone]. ATIONS LABEL CLERK * Care Plan - Saul Nina RT - 10/05/2018 6:33 PM OPERATIONS LABEL CLERK RT Adult Assessment Note NAME:Jacki Madsen :1960 AGE: 58 y.o. ADMISSION DATE: 10/05/2018 DAYS ADMITTED: LOS: 0 days RT Treatment Plan: Protocol Plan: Medications Albuterol: Neb PRN Protocol Plan: Procedures Tracheostomy Suction: Q4h & PRN Oxygen/Humidity: O2 to keep SpO2 > 92%;Warm: continuous Monitoring: Pulse oximetry Q6h & PRN Additional Comments: Impressions of the patient: no respiratory distress Intervention(s)/outcome(s): trach suction Vital Signs: Pulse: Pulse: 83 RR: Respirations: 20 PER MINUTE SpO2: SpO2: 97 % O2 Device: Liter Flow: O2 Liter Flow: 5 lpm O2%: O2 Percent: 28 % Breath Sounds: All Breath Sounds: Clear (implies normal);Decreased Respiratory Effort: Respiratory Effort: Non-Labored(Simultaneous filing. User may not have seen previous data.) ATIONS LABEL CLERK * Operative Report (Direct Entry) - Kalli Snyder MD - 10/05/2018 3:32 PM OPERATIONS LABEL CLERK OPERATIVE REPORT Name: Jacki Madsen is a 58 y.o. 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 The neck was prepped and draped in the usual sterile fashion. The anterior neck was anesthetized with lidocaine with epinephrine. At this point, a tracheostomy was performed by making an incision in the mid-lower neck, over the region of the cricoid. Dissection was then performed in this area and the strap muscles were retracted laterally. The trachea and thyroid isthmus were identified. The thyroid was noted to be enlarged, and obstructing the view of the trachea. Therefore, a decision was made to transect it and resect the isthmus my carefully dissecting it off of the midline trachea and retracting it laterally until exposure was improved. The second tracheal ring was cleared and a horizontal incision was made above and below the second tracheal ring. The area was dilated, a cricoid hook was used to retract the area, and a #6 cuffed Shiley tracheostomy tube was then inserted under direct visualization, after the endotracheal tube was withdrawn partially. CO2 confirmation was achieved and the tracheostomy tube was sewn in. Ties were used around the patient's neck to further secure the tube. 27473 - Diagnostic microlaryngoscopy with biopsy With the patient in extension, the upper dentition and alveolus was protected. The mouth and neck were examined visually and by palpation. A Dedo laryngoscope was inserted into the oral cavity and gently passed to the oropharynx. Inspection of all subsites of the pharynx, larynx, and hypopharynx was performed. 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 The tumor crosses midline at the anterior commissure. Left vocal cord fixed. A biopsy was taken from this site and sent as a frozen section. Minimal bleeding was encountered and hemostasis was achieved with topical epinephrine pledgets. Estimated Blood Loss: Minimal Specimen(s) Removed/Disposition: ID Type Source Tests Collected by Time Destination 1 : Left true vocal cord Tissue Neck,Midline SURGICAL PATHOLOGY Bur, Kalli Puga MD 10/05/2018 1558 Attestation: I performed this procedure with a resident. Kalli Snyder MD Pager ATIONS LABEL CLERK * Care Plan - Saul Nina RT - 10/05/2018 2:04 PM OPERATIONS LABEL CLERK RT Adult Assessment Note NAME:Jacki Madsen :1960 AGE: 58 y.o. ADMISSION DATE: 10/05/2018 DAYS ADMITTED: LOS: 0 days RT Treatment Plan: Protocol Plan: Medications Albuterol: Neb PRN Protocol Plan: Procedures PAP: Place a nursing order for "IS Q1h While Awake" for any of Lung Expansion indicators Additional Comments: Impressions of the patient: admitted for laryngeal mass otherwise not in respiratory distress Intervention(s)/outcome(s): O2/monitoring but will re-assess after trach procedure Vital Signs: Pulse: Pulse: 85 RR: Respirations: 20 PER MINUTE SpO2: SpO2: 100 % O2 Device: $$ O2 Device: Standby Liter Flow: O2%: O2 Percent: 21 % Breath Sounds: All Breath Sounds: Clear (implies normal);Decreased Respiratory Effort: Respiratory Effort: Non-Labored ATIONS LABEL CLERK in this encounter Plan of Treatment Order Schedule Name Priority Associated Diagnoses ONCE for 1 Occurrences starting 10/05/2018 SURGICAL PATHOLOGY Routine Laryngeal mass ONCE for 1 Occurrences starting 10/13/2018 SURGICAL PATHOLOGY Routine Laryngeal mass Mass of larynx ONCE for 1 Occurrences starting 10/19/2018 SURGICAL PATHOLOGY Routine Expected: 10/29/2018 (Approximate), Expires: 10/22/2019 CALCIUM Routine Laryngeal mass Mass of larynx Pharyngeal dysphagia Moderate persistent asthma without complication Anxiety Depression, unspecified depression type Hypocalcemia Shortness of breath Expected: 10/29/2018 (Approximate), Expires: 10/22/2019 IONIZED CALCIUM Routine Laryngeal mass Mass of larynx Pharyngeal dysphagia Moderate persistent asthma without complication Anxiety Depression, unspecified depression type Hypocalcemia Shortness of breath as of this encounter Procedures Comments Procedure Name Priority Date/Time Associated Diagnosis CBC Routine 10/22/2018 5:40 AM OPERATIONS LABEL CLERK IONIZED CALCIUM Routine 10/22/2018 5:40 AM OPERATIONS LABEL CLERK CALCIUM Routine 10/22/2018 5:40 AM OPERATIONS LABEL CLERK PARATHYROID HORMONE Routine 10/21/2018 10:22 AM OPERATIONS LABEL CLERK PHOSPHORUS Routine 10/21/2018 10:22 AM OPERATIONS LABEL CLERK MAGNESIUM Routine 10/21/2018 10:22 AM OPERATIONS LABEL CLERK IONIZED CALCIUM Routine 10/21/2018 10:22 AM OPERATIONS LABEL CLERK BASIC METABOLIC PANEL Routine 10/21/2018 10:22 AM OPERATIONS LABEL CLERK ESOPHAGRAM Routine 10/21/2018 9:21 AM OPERATIONS LABEL CLERK IONIZED CALCIUM STAT 10/20/2018 8:23 AM OPERATIONS LABEL CLERK CONSULT IV THERAPY TEAM Routine 10/20/2018 7:38 AM OPERATIONS LABEL CLERK CBC Routine 10/20/2018 6:16 AM OPERATIONS LABEL CLERK PHOSPHORUS Routine 10/20/2018 6:16 AM OPERATIONS LABEL CLERK MAGNESIUM Routine 10/20/2018 6:16 AM OPERATIONS LABEL CLERK BASIC METABOLIC PANEL Routine 10/20/2018 6:16 AM OPERATIONS LABEL CLERK CONSULT IV THERAPY TEAM Routine 10/19/2018 10:17 AM OPERATIONS LABEL CLERK EXTRACTION TOOTH 10/19/2018 10:08 AM OPERATIONS LABEL CLERK CBC Routine 10/19/2018 6:18 AM OPERATIONS LABEL CLERK PHOSPHORUS Routine 10/19/2018 6:18 AM OPERATIONS LABEL CLERK MAGNESIUM Routine 10/19/2018 6:18 AM OPERATIONS LABEL CLERK IONIZED CALCIUM STAT 10/19/2018 6:18 AM OPERATIONS LABEL CLERK BASIC METABOLIC PANEL Routine 10/19/2018 6:18 AM OPERATIONS LABEL CLERK IONIZED CALCIUM STAT 10/18/2018 6:00 PM OPERATIONS LABEL CLERK CALCIUM STAT 10/18/2018 6:00 PM OPERATIONS LABEL CLERK CBC Routine 10/18/2018 6:10 AM OPERATIONS LABEL CLERK PHOSPHORUS Routine 10/18/2018 6:10 AM OPERATIONS LABEL CLERK MAGNESIUM Routine 10/18/2018 6:10 AM OPERATIONS LABEL CLERK IONIZED CALCIUM STAT 10/18/2018 6:10 AM OPERATIONS LABEL CLERK BASIC METABOLIC PANEL Routine 10/18/2018 6:10 AM OPERATIONS LABEL CLERK IONIZED CALCIUM STAT 10/17/2018 10:20 PM OPERATIONS LABEL CLERK CALCIUM STAT 10/17/2018 10:20 PM OPERATIONS LABEL CLERK IONIZED CALCIUM STAT 10/17/2018 6:00 PM OPERATIONS LABEL CLERK CALCIUM STAT 10/17/2018 6:00 PM OPERATIONS LABEL CLERK PARATHYROID HORMONE Add on 10/17/2018 6:01 AM OPERATIONS LABEL CLERK CBC Routine 10/17/2018 6:01 AM OPERATIONS LABEL CLERK PHOSPHORUS Routine 10/17/2018 6:01 AM OPERATIONS LABEL CLERK MAGNESIUM Routine 10/17/2018 6:01 AM OPERATIONS LABEL CLERK ALBUMIN Routine 10/17/2018 6:01 AM OPERATIONS LABEL CLERK BASIC METABOLIC PANEL Routine 10/17/2018 6:01 AM OPERATIONS LABEL CLERK CALCIUM STAT 10/17/2018 6:00 AM OPERATIONS LABEL CLERK IONIZED CALCIUM STAT 10/17/2018 5:59 AM OPERATIONS LABEL CLERK IONIZED CALCIUM STAT 10/16/2018 10:00 PM OPERATIONS LABEL CLERK CALCIUM STAT 10/16/2018 10:00 PM OPERATIONS LABEL CLERK IONIZED CALCIUM STAT 10/16/2018 2:18 PM OPERATIONS LABEL CLERK CALCIUM STAT 10/16/2018 2:18 PM OPERATIONS LABEL CLERK PANOREX EXAM Routine 10/16/2018 11:25 AM OPERATIONS LABEL CLERK CONSULT IV THERAPY TEAM Routine 10/16/2018 8:56 AM OPERATIONS LABEL CLERK CBC Routine 10/16/2018 6:07 AM OPERATIONS LABEL CLERK PHOSPHORUS Routine 10/16/2018 6:07 AM OPERATIONS LABEL CLERK MAGNESIUM Routine 10/16/2018 6:07 AM OPERATIONS LABEL CLERK IONIZED CALCIUM Add on 10/16/2018 6:07 AM OPERATIONS LABEL CLERK BASIC METABOLIC PANEL Routine 10/16/2018 6:07 AM OPERATIONS LABEL CLERK 25-OH VITAMIN D (D2 + D3) Specimen 10/15/2018 in Lab 8:24 PM OPERATIONS LABEL CLERK IONIZED CALCIUM STAT 10/15/2018 8:24 PM OPERATIONS LABEL CLERK CALCIUM STAT 10/15/2018 8:24 PM OPERATIONS LABEL CLERK CONSULT IV THERAPY TEAM Routine 10/15/2018 7:35 PM OPERATIONS LABEL CLERK IONIZED CALCIUM STAT 10/15/2018 11:08 AM OPERATIONS LABEL CLERK CALCIUM Routine 10/15/2018 11:08 AM OPERATIONS LABEL CLERK PARATHYROID HORMONE Add on 10/15/2018 3:15 AM OPERATIONS LABEL CLERK CBC Routine 10/15/2018 3:15 AM OPERATIONS LABEL CLERK PHOSPHORUS Routine 10/15/2018 3:15 AM OPERATIONS LABEL CLERK MAGNESIUM Routine 10/15/2018 3:15 AM OPERATIONS LABEL CLERK IONIZED CALCIUM Routine 10/15/2018 3:15 AM OPERATIONS LABEL CLERK BASIC METABOLIC PANEL Routine 10/15/2018 3:15 AM OPERATIONS LABEL CLERK CALCIUM Specimen 10/14/2018 in Lab 10:53 PM OPERATIONS LABEL CLERK IONIZED CALCIUM 10/14/2018 10:45 PM OPERATIONS LABEL CLERK CONSULT IV THERAPY TEAM Routine 10/14/2018 10:32 PM OPERATIONS LABEL CLERK IONIZED CALCIUM STAT 10/14/2018 6:15 PM OPERATIONS LABEL CLERK CALCIUM Routine 10/14/2018 6:15 PM OPERATIONS LABEL CLERK CALCIUM Routine 10/14/2018 3:38 PM OPERATIONS LABEL CLERK IONIZED CALCIUM STAT 10/14/2018 10:30 AM OPERATIONS LABEL CLERK CALCIUM STAT 10/14/2018 10:30 AM OPERATIONS LABEL CLERK IONIZED CALCIUM STAT 10/14/2018 7:20 AM OPERATIONS LABEL CLERK CONSULT IV THERAPY TEAM Routine 10/14/2018 6:34 AM OPERATIONS LABEL CLERK CBC Routine 10/14/2018 5:47 AM OPERATIONS LABEL CLERK PHOSPHORUS Routine 10/14/2018 5:47 AM OPERATIONS LABEL CLERK MAGNESIUM Routine 10/14/2018 5:47 AM OPERATIONS LABEL CLERK BASIC METABOLIC PANEL Routine 10/14/2018 5:47 AM OPERATIONS LABEL CLERK IONIZED CALCIUM STAT 10/13/2018 11:30 PM OPERATIONS LABEL CLERK CALCIUM Routine 10/13/2018 11:30 PM OPERATIONS LABEL CLERK CONSULT IV THERAPY TEAM Routine 10/13/2018 10:57 PM OPERATIONS LABEL CLERK ABDOMEN AP ONLY Routine 10/13/2018 3:15 PM OPERATIONS LABEL CLERK PARATHYROID HORMONE STAT 10/13/2018 3:00 PM OPERATIONS LABEL CLERK IONIZED CALCIUM STAT 10/13/2018 3:00 PM OPERATIONS LABEL CLERK CALCIUM Routine 10/13/2018 3:00 PM OPERATIONS LABEL CLERK SURGICAL PATHOLOGY 10/13/2018 12:12 PM OPERATIONS LABEL CLERK BLOOD TYPE CONFIRMATION - STAT 10/13/2018 ORDER ONLY IF REQUESTED 8:35 AM OPERATIONS LABEL CLERK BY LAB TYPE & CROSSMATCH STAT 10/13/2018 8:30 AM OPERATIONS LABEL CLERK TISSUE TRANSFER MUSCLE/ 10/13/2018 Laryngeal mass MYOCUTANEOUS/ 8:00 AM OPERATIONS LABEL CLERK Mass of larynx FASCIOCUTANEOUS FLAP WITH VASCULAR PEDICLE - HEAD/ NECK DIRECT LARYNGOSCOPY 10/13/2018 Laryngeal mass DIAGNOSTIC 8:00 AM OPERATIONS LABEL CLERK Mass of larynx THYROIDECTOMY TOTAL 10/13/2018 Laryngeal mass 8:00 AM OPERATIONS LABEL CLERK Mass of larynx CERVICAL LYMPHADENECTOMY 10/13/2018 Laryngeal mass 8:00 AM OPERATIONS LABEL CLERK Mass of larynx LARYNGECTOMY TOTAL 10/13/2018 Laryngeal mass 8:00 AM OPERATIONS LABEL CLERK Mass of larynx CONSULT IV THERAPY TEAM Routine 10/10/2018 8:14 AM OPERATIONS LABEL CLERK 2-D + DOPPLER Routine 10/08/2018 ECHOCARDIOGRAM 11:14 AM OPERATIONS LABEL CLERK ECG 12-LEAD Routine 10/07/2018 4:29 PM OPERATIONS LABEL CLERK SWALLOW MOTION SERIES Routine 10/07/2018 8:48 AM OPERATIONS LABEL CLERK NM PET SCAN TORSO Routine 10/06/2018 (SKULL-THIGHS) 1:21 PM OPERATIONS LABEL CL[address] CT CHEST W CONTRAST Routine 10/06/2018 10:14 AM OPERATIONS LABEL CL[address] NECK W/CONTRAST Routine 10/06/2018 10:14 AM OPERATIONS LABEL CLERK POC GLUCOSE 10/06/2018 9:43 AM OPERATIONS LABEL CLERK THYROID STIMULATING Routine 10/06/2018 HORMONE-TSH 8:45 AM OPERATIONS LABEL CLERK PREALBUMIN Routine 10/06/2018 8:45 AM OPERATIONS LABEL CLERK PHOSPHORUS Add on 10/06/2018 8:45 AM OPERATIONS LABEL CLERK MAGNESIUM Add on 10/06/2018 8:45 AM OPERATIONS LABEL CLERK ALBUMIN Routine 10/06/2018 8:45 AM OPERATIONS LABEL CLERK BASIC METABOLIC PANEL Add on 10/06/2018 8:45 AM OPERATIONS LABEL CLERK CBC STAT 10/05/2018 4:41 PM OPERATIONS LABEL CLERK BASIC METABOLIC PANEL STAT 10/05/2018 4:41 PM OPERATIONS LABEL CLERK SURGICAL PATHOLOGY 10/05/2018 4:02 PM OPERATIONS LABEL CLERK DIRECT MICROLARYNGOSCOPY 10/05/2018 Laryngeal mass WITH BIOPSY 3:50 PM OPERATIONS LABEL CLERK TRACHEOSTOMY PLANNED 10/05/2018 Laryngeal mass 3:50 PM OPERATIONS LABEL CLERK CONSULT IV THERAPY TEAM Routine 10/05/2018 2:08 PM OPERATIONS LABEL CLERK TELEMETRY STRIPS-SCAN 10/05/2018 12:00 AM OPERATIONS LABEL CLERK ECG-SCAN 10/05/2018 12:00 AM OPERATIONS LABEL CLERK EXERCISE OXIMETRY-SCAN 10/05/2018 12:00 AM OPERATIONS LABEL CLERK in this encounter Results * IONIZED CALCIUM (10/22/2018 5:40 AM OPERATIONS LABEL CLERK) Ionized Calcium 1.13 1.0 - 1.3 MMOL/L [facility] Specimen Blood Performing Organization Address [facility] Phone Number [facility] [address] [place] [address] * CALCIUM (10/22/2018 5:40 AM OPERATIONS LABEL CLERK) Calcium 9.1 8.5 - 10.6 MG/DL [facility] Specimen Blood Performing Organization Address [facility] Phone Number [facility] LAB [address] [place] [address] * CBC (10/22/2018 5:40 AM OPERATIONS LABEL CLERK) White Blood Cells 5.7 4.5 - 11.0 K/UL [facility] RBC 3.28 (L) 4.0 - 5.0 M/UL [facility] Hemoglobin 10.6 (L) 12.0 - 15.0 GM/DL [facility] MAIN [facility] Hematocrit 31.0 (L) 36 - 45 % [facility] MAIN [facility] MCV 94.6 80 - 100 FL [facility] MAIN LAB MCH 32.2 26 - 34 PG MAIN LAB MCHC 34.1 32.0 - 36.0 G/DL MAIN LAB RDW 12.9 11 - 15 % [facility] MAIN [facility] Platelet Count 450 (H) 150 - 400 K/UL MAIN LAB MPV 7.6 7 - 11 FL MAIN LAB Specimen Blood Performing Organization Address [facility] [place] Phone Number [facility] LAB [address] [place] [address] * IONIZED CALCIUM (10/21/2018 10:22 AM OPERATIONS LABEL CLERK) Ionized Calcium 1.14 1.0 - 1.3 MMOL/L [facility] MAIN [facility] Specimen Blood Performing Organization Address [facility] Phone Number [facility] LAB [address] [place] [address] * PARATHYROID HORMONE (10/21/2018 10:22 AM OPERATIONS LABEL CLERK) PTH Hormone 11.3 10 - 65 PG/ML [facility] MAIN LAB Specimen Blood Performing Organization Address [facility] Phone Number [facility] LAB [address] [place] [address] * PHOSPHORUS (10/21/2018 10:22 AM OPERATIONS LABEL CLERK) Phosphorus 5.4 (H)Comment: NOTE NEW 2.0 - 4.5 MG/DL [facility] MAIN LAB REFERENCE RANGES Specimen Blood Performing Organization Address [facility] Phone Number [facility] LAB [address] [place] [phone] * MAGNESIUM (10/21/2018 10:22 AM OPERATIONS LABEL CLERK) Magnesium 2.1 1.6 - 2.6 mg/dL [facility] MAIN LAB Specimen Blood Performing Organization Address [facility] Phone Number [facility] LAB [address] [place] [phone] * BASIC METABOLIC PANEL (10/21/2018 10:22 AM OPERATIONS LABEL CLERK) Sodium 138 137 - 147 MMOL/L [facility] [...] for questions. Specimen Blood Performing Organization Address City/[facility]/Zipcode Phone Number MAIN LAB [address] [place] [phone] * ESOPHAGRAM (10/21/2018 9:21 AM OPERATIONS LABEL CLERK) Impressions Performed At Small linear collection of contrast within the anterior neck, cephalad to the [facility] RAD RESULTS tracheostomy, concerning for a small leak following recent laryngectomy. Dr. Beal discussed these results over the phone with Dr. Crane on 10/21/2018 9:47 AM. Approved by Faustino Beal M.D. on 10/21/2018 9:47 AM By my electronic signature, I attest that I have personally reviewed the images for this examination and formulated the interpretations and opinions expressed in this report Finalized by Katherine Genao M.D. on 10/21/2018 11:52 AM. Dictated by Faustino Beal M.D. on 10/21/2018 9:36 AM. 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 TECHNIQUE: An explanation of the exam was provided to the patient and brief history was obtained. After obtaining a preliminary radiograph, the patient ingested barium to distend the esophageal lumen. Single-contrast spot films of the esophagus were obtained. The patient tolerated the procedure well and left the department in stable condition. TOTAL FLUOROSCOPY TIME: 102 seconds FINDINGS: The preliminary radiograph demonstrates surgical clips over the low neck with a tracheostomy tube in place. Enteric tube courses below the diaphragm with tip projecting over the proximal stomach. Lungs are well aerated. There are surgical clips and soft tissue fullness at the level of the lower neck compatible with prior surgery. There is a small linear collection of contrast within the anterior neck, just cephalad to the tracheostomy, best seen on lateral imaging (series 10 images 1 through 5). This finding persists despite repeat swallowing. The remaining esophagus is normal in caliber without evidence of leak. There is free flow of contrast into the stomach. 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 TECHNIQUE: An explanation of the exam was provided to the patient and brief history was obtained. After obtaining a preliminary radiograph, the patient ingested barium to distend the esophageal lumen. Single-contrast spot films of the esophagus were obtained. The patient tolerated the procedure well and left the department in stable condition. TOTAL FLUOROSCOPY TIME: 102 seconds FINDINGS: The preliminary radiograph demonstrates surgical clips over the low neck with a tracheostomy tube in place. Enteric tube courses below the diaphragm with tip projecting over the proximal stomach. Lungs are well aerated. There are surgical clips and soft tissue fullness at the level of the lower neck compatible with prior surgery. There is a small linear collection of contrast within the anterior neck, just cephalad to the tracheostomy, best seen on lateral imaging (series 10 images 1 through 5). This finding persists despite repeat swallowing. The remaining esophagus is normal in caliber without evidence of leak. There is free flow of contrast into the stomach. IMPRESSION Small linear collection of contrast within the anterior neck, cephalad to the tracheostomy, concerning for a small leak following recent laryngectomy. Dr. Beal discussed these results over the phone with Dr. Crane on 2017 9:47 AM. Approved by Faustino Beal M.D. on 10/21/2018 9:47 AM By my electronic signature, I attest that I have personally reviewed the images for this examination and formulated the interpretations and opinions expressed in this report Finalized by Katherine Genao M.D. on 10/21/2018 11:52 AM. Dictated by Faustino Beal M.D. on 10/21/2018 9:36 AM. Performing Organization Address [facility] Phone Number RAD RESULTS * IONIZED CALCIUM (10/20/2018 8:23 AM OPERATIONS LABEL CLERK) Ionized Calcium 1.12 1.0 - 1.3 MMOL/L [facility] Specimen Blood Performing Organization Address [facility] [place] Phone Number [facility] [address] [place] [address] * CBC (10/20/2018 6:16 AM OPERATIONS LABEL CLERK) White Blood Cells 7.7 4.5 - 11.0 K/UL [facility] RBC 3.35 (L) 4.0 - 5.0 M/UL [facility] Hemoglobin 10.7 (L) 12.0 - 15.0 GM/DL [facility] Hematocrit 31.7 (L) 36 - 45 % [facility] LAB MCV 94.9 80 - 100 FL [facility] LAB MCH 32.1 26 - 34 PG [facility] LAB MCHC 33.8 32.0 - 36.0 G/DL [facility] LAB RDW 13.0 11 - 15 % [facility] Platelet Count 424 (H) 150 - 400 K/UL [facility] LAB MPV 7.7 7 - 11 FL [facility] LAB Specimen Blood Performing Organization Address [facility] Phone Number [facility] LAB [address] [place] [address] * PHOSPHORUS (10/20/2018 6:16 AM OPERATIONS LABEL CLERK) Phosphorus 4.9 (H)Comment: NOTE NEW 2.0 - 4.5 MG/DL [facility] MAIN [facility] REFERENCE RANGES Specimen Blood Performing Organization Address [facility] Phone Number [facility] MAIN [facility] [address] [place] [address] * MAGNESIUM (10/20/2018 6:16 AM OPERATIONS LABEL CLERK) Magnesium 2.3 1.6 - 2.6 mg/dL [facility] MAIN LAB Specimen Blood Performing Organization Address [facility] Phone Number [facility] MA[facility] [address] [place] [address] * BASIC METABOLIC PANEL (10/20/2018 6:16 AM OPERATIONS LABEL CLERK) Sodium 137 137 - 147 MMOL/L [facility] MAIN [facility] Potassium 3.8 3.5 - 5.1 MMOL/L [facility] MAIN [facility] Chloride 100 98 - 110 MMOL/L [facility] MAIN [facility] CO2 29 21 - 30 MMOL/L [facility] MAIN [facility] Anion Gap 8 3 - 12 [facility] MAIN [facility] Glucose 129 (H) 70 - 100 MG/DL [facility] MAIN [facility] Blood Urea Nitrogen 25 7 - 25 MG/DL [facility] MAIN [facility] Creatinine 0.75 0.4 - 1.00 MG/DL [facility]IN [facility] Calcium 9.1 8.5 - 10.6 MG/DL [facility] MAIN LAB [...] for questions. Specimen Blood Performing Organization Address [facility] Phone Number [facility] [address] [place] [address] * CBC (10/19/2018 6:18 AM OPERATIONS LABEL CLERK) White Blood Cells 7.4 4.5 - 11.0 K/UL [facility] MAIN [facility] RBC 3.46 (L) 4.0 - 5.0 M/UL [facility] MAIN LAB Hemoglobin 11.3 (L) 12.0 - 15.0 GM/DL [facility] MAIN LAB Hematocrit 32.8 (L) 36 - 45 % [facility] MAIN [facility] MCV 94.7 80 - 100 FL MAIN LAB MCH 32.7 26 - 34 PG MAIN LAB MCHC 34.5 32.0 - 36.0 G/DL MAIN LAB RDW 12.8 11 - 15 % MAIN LAB Platelet Count 370 150 - 400 K/UL MAIN LAB MPV 7.5 7 - 11 FL MAIN LAB Specimen Blood Performing Organization Address [facility] Phone Number MAIN LAB [address] [place] [address] * PHOSPHORUS (10/19/2018 6:18 AM OPERATIONS LABEL CLERK) Phosphorus 5.3 (H)Comment: NOTE NEW 2.0 - 4.5 MG/DL [facility] MAIN LAB REFERENCE RANGES Specimen Blood Performing Organization Address [facility] Phone Number MAIN LAB [address] [place] [address] * MAGNESIUM (10/19/2018 6:18 AM OPERATIONS LABEL CLERK) Magnesium 2.0 1.6 - 2.6 mg/dL MAIN LAB Specimen Blood Performing Organization Address [facility] Phone Number MAIN LAB [address] [place] [address] * BASIC METABOLIC PANEL (10/19/2018 6:18 AM OPERATIONS LABEL CLERK) Sodium 137 137 - 147 MMOL/L MAIN LAB Potassium 4.2 3.5 - 5.1 MMOL/L [facility] MAIN [facility] Chloride 102 98 - 110 MMOL/L [facility] MAIN [facility] CO2 25 21 - 30 MMOL/L [facility] MAIN [facility] Anion Gap 10 3 - 12 [facility] MAIN [facility] Glucose 90 70 - 100 MG/DL [facility] MAIN [facility] Blood Urea Nitrogen 19 7 - 25 MG/DL [facility] MAIN [facility] Creatinine 0.81 0.4 - 1.00 MG/DL MAIN LAB Calcium 8.8 8.5 - 10.6 MG/DL [facility] MAIN LAB [...] for questions. Specimen Blood Performing Organization Address [facility] Phone Number [facility] MA[facility] [address] [place] [address] * IONIZED CALCIUM (10/19/2018 6:18 AM OPERATIONS LABEL CLERK) Ionized Calcium 1.02 1.0 - 1.3 MMOL/L [facility]IN [facility] Specimen Blood Performing Organization Address [facility] Phone Number [facility] MA[facility] [address] [place] [address] * IONIZED CALCIUM (10/18/2018 6:00 PM OPERATIONS LABEL CLERK) Ionized Calcium 1.08 1.0 - 1.3 MMOL/L MAIN LAB Specimen Blood Performing Organization Address [facility] Phone Number MAIN LAB [address] [place] [address] * CALCIUM (10/18/2018 6:00 PM OPERATIONS LABEL CLERK) Calcium 9.2 8.5 - 10.6 MG/DL MAIN LAB Specimen Blood Performing Organization Address [facility] [place] Phone Number MAIN LAB [address] [place] [address] * IONIZED CALCIUM (10/18/2018 6:10 AM OPERATIONS LABEL CLERK) Ionized Calcium 1.12 1.0 - 1.3 MMOL/L MAIN LAB Specimen Blood Performing Organization Address [facility] [place] Phone Number MAIN LAB [address] [place] [address] * PHOSPHORUS (10/18/2018 6:10 AM OPERATIONS LABEL CLERK) Phosphorus 4.8 (H)Comment: NOTE NEW 2.0 - 4.5 MG/DL [facility] MAIN [facility] REFERENCE RANGES Specimen Blood Performing Organization Address [facility] Phone Number [facility] [address] [place] [address] * MAGNESIUM (10/18/2018 6:10 AM OPERATIONS LABEL CLERK) Magnesium 1.8 1.6 - 2.6 mg/dL MAIN LAB Specimen Blood Performing Organization Address [facility] Phone Number MAIN LAB [address] [place] [address] * BASIC METABOLIC PANEL (10/18/2018 6:10 AM OPERATIONS LABEL CLERK) Sodium 136 (L) 137 - 147 MMOL/L [facility] MAIN [facility] Potassium 3.8 3.5 - 5.1 MMOL/L [facility] MAIN [facility] Chloride 101 98 - 110 MMOL/L [facility] CO2 26 21 - 30 MMOL/L [facility] MAIN [facility] Anion Gap 9 3 - 12 MAIN LAB Glucose 128 (H) 70 - 100 MG/DL MAIN LAB Blood Urea Nitrogen 17 7 - 25 MG/DL [facility] MAIN [facility] Creatinine 0.74 0.4 - 1.00 MG/DL [facility] MAIN [facility] Calcium 8.8 8.5 - 10.6 MG/DL MAIN LAB eGFR Non >60 >60 mL/min [facility] MAIN [facility] Comment: The eGFR is not validated for use in drug dosing adjustments.Continue to use estimated creatinine clearance per dosing reference text.Please contact the Clinical Pharmacist for questions. eGFR >60 >60 mL/min MAIN LAB Comment: The eGFR is not validated for use in drug dosing adjustments.Continue to use estimated creatinine clearance per dosing reference text.Please contact the Clinical Pharmacist for questions. Specimen Blood Performing Organization Address [facility] Phone Number MAIN LAB [address] [place] [address] * CBC (10/18/2018 6:10 AM OPERATIONS LABEL CLERK) White Blood Cells 7.8 4.5 - 11.0 K/UL MAIN LAB RBC 3.54 (L) 4.0 - 5.0 M/UL MAIN LAB Hemoglobin 11.4 (L) 12.0 - 15.0 GM/DL MAIN LAB Hematocrit 33.6 (L) 36 - 45 % MAIN LAB MCV 95.0 80 - 100 FL MAIN LAB MCH 32.2 26 - 34 PG MAIN LAB MCHC 33.9 32.0 - 36.0 G/DL MAIN LAB RDW 13.1 11 - 15 % MAIN LAB Platelet Count 346 150 - 400 K/UL MAIN LAB MPV 7.8 7 - 11 FL MAIN LAB Specimen Blood Performing Organization Address City/[facility]/Zipcode Phone Number MAIN LAB [address] [place] [address] * IONIZED CALCIUM (10/17/2018 10:20 PM OPERATIONS LABEL CLERK) Ionized Calcium 1.10 1.0 - 1.3 MMOL/L MAIN LAB Specimen Blood Performing Organization Address City/[facility]/Zipcode Phone Number MAIN LAB [address] [place] [address] * CALCIUM (10/17/2018 10:20 PM OPERATIONS LABEL CLERK) Calcium 8.8 8.5 - 10.6 MG/DL [facility] MAIN [facility] Specimen Blood Performing Organization Address [facility] Phone Number MAIN LAB [address] [place] [address] * IONIZED CALCIUM (10/17/2018 6:00 PM OPERATIONS LABEL CLERK) Ionized Calcium 1.15 1.0 - 1.3 MMOL/L [facility] MAIN [facility] Specimen Blood Performing Organization Address [facility] Phone Number MA[facility] LAB [address] [place] [address] * CALCIUM (10/17/2018 6:00 PM OPERATIONS LABEL CLERK) Calcium 9.1 8.5 - 10.6 MG/DL MAIN LAB Specimen Blood Performing Organization Address [facility] Phone Number MAIN LAB [address] [place] [address] * PARATHYROID HORMONE (10/17/2018 6:01 AM OPERATIONS LABEL CLERK) PTH Hormone 8.1 (L) 10 - 65 PG/ML MAIN LAB Performing Organization Address [facility] Phone Number MAIN LAB [address] [place] [address] * ALBUMIN (10/17/2018 6:01 AM OPERATIONS LABEL CLERK) Albumin 3.6 3.5 - 5.0 G/DL MAIN LAB Specimen Blood Performing Organization Address [facility] Phone Number MAIN LAB [address] [place] [address] * PHOSPHORUS (10/17/2018 6:01 AM OPERATIONS LABEL CLERK) Phosphorus 4.7 (H)Comment: NOTE NEW 2.0 - 4.5 MG/DL MAIN LAB REFERENCE RANGES Specimen Blood Performing Organization Address [facility]/Zipcode Phone Number MAIN LAB [address] [place] [address] * MAGNESIUM (10/17/2018 6:01 AM OPERATIONS LABEL CLERK) Magnesium 2.0 1.6 - 2.6 mg/dL MAIN LAB Specimen Blood Performing Organization Address [facility]/Zipcode Phone Number MAIN LAB [address] [place] [address] * BASIC METABOLIC PANEL (10/17/2018 6:01 AM OPERATIONS LABEL CLERK) Sodium 137 137 - 147 MMOL/L [facility] MAIN [facility] Potassium 3.5 3.5 - 5.1 MMOL/L [facility] MAIN [facility] Chloride 100 98 - 110 MMOL/L [facility] MAIN [facility] CO2 26 21 - 30 MMOL/L [facility] MAIN [facility] Anion Gap 11 3 - 12 [facility] MAIN [facility] Glucose 100 70 - 100 MG/DL [facility] MAIN LAB Blood Urea Nitrogen 13 7 - 25 MG/DL [facility] MAIN [facility] Creatinine 0.72 0.4 - 1.00 MG/DL [facility] MAIN LAB Calcium 8.5 8.5 - 10.6 MG/DL [facility] MAIN LAB [...] for questions. Specimen Blood Performing Organization Address City/[facility]/Zipcode Phone Number [facility] [address] [place] [address] * CBC (10/17/2018 6:01 AM OPERATIONS LABEL CLERK) White Blood Cells 9.3 4.5 - 11.0 K/UL MAIN LAB RBC 3.53 (L) 4.0 - 5.0 M/UL MAIN LAB Hemoglobin 11.3 (L) 12.0 - 15.0 GM/DL [facility] MAIN LAB Hematocrit 33.6 (L) 36 - 45 % MAIN LAB MCV 95.4 80 - 100 FL MAIN LAB MCH 32.0 26 - 34 PG MAIN LAB MCHC 33.6 32.0 - 36.0 G/DL MAIN LAB RDW 12.8 11 - 15 % [facility] MAIN LAB Platelet Count 375 150 - 400 K/UL MAIN LAB MPV 8.0 7 - 11 FL MAIN LAB Specimen Blood Performing Organization Address City/[facility]/Zipcode Phone Number [facility] [address] [place] [address] * CALCIUM (10/17/2018 6:00 AM OPERATIONS LABEL CLERK) Calcium 8.3 (L) 8.5 - 10.6 MG/DL MAIN LAB Specimen Blood Performing Organization Address [facility] Phone Number MAIN LAB [address] [place] [address] * IONIZED CALCIUM (10/17/2018 5:59 AM OPERATIONS LABEL CLERK) Ionized Calcium 1.05 1.0 - 1.3 MMOL/L MAIN LAB Specimen Blood Performing Organization Address [facility] Phone Number MAIN LAB [address] [place] [address] * IONIZED CALCIUM (10/16/2018 10:00 PM OPERATIONS LABEL CLERK) Ionized Calcium 1.00 1.0 - 1.3 MMOL/L MAIN LAB Specimen Blood Performing Organization Address [facility] Phone Number MAIN LAB [address] [place] [address] * CALCIUM (10/16/2018 10:00 PM OPERATIONS LABEL CLERK) Calcium 7.7 (L) 8.5 - 10.6 MG/DL MAIN LAB Specimen Blood Performing Organization Address [facility] Phone Number MAIN LAB [address] [place] [address] * CALCIUM (10/16/2018 2:18 PM OPERATIONS LABEL CLERK) Calcium 8.4 (L) 8.5 - 10.6 MG/DL MAIN LAB Specimen Blood Performing Organization Address [facility] [place] Phone Number [facility] LAB [address] [place] [address] * IONIZED CALCIUM (10/16/2018 2:18 PM OPERATIONS LABEL CLERK) Ionized Calcium 1.02 1.0 - 1.3 MMOL/L MAIN LAB Specimen Blood Performing Organization Address [facility] [place] Phone Number MAIN LAB [address] [place] [address] * PANOREX EXAM (10/16/2018 11:25 AM OPERATIONS LABEL CLERK) Impressions Performed At Findings/Impression: [facility] RAD RESULTS [...] Interface, Radiant Results - 10/16/2018 11:49 AM OPERATIONS LABEL CLERK PANOREX EXAM Clinical Indication: pre-radiation evaluation. Comparison: [...] on 10/16/2018 11:43 AM. Performing Organization Address [facility] [place] Phone Number [facility] RAD RESULTS * IONIZED CALCIUM (10/16/2018 6:07 AM OPERATIONS LABEL CLERK) Ionized Calcium 1.03 1.0 - 1.3 MMOL/L [facility] MAIN LAB Performing Organization Address [facility] [place] Phone Number [facility] MAIN LAB [address] [place] [address] * PHOSPHORUS (10/16/2018 6:07 AM OPERATIONS LABEL CLERK) Phosphorus 2.7Comment: NOTE NEW REFERENCE 2.0 - 4.5 MG/DL [facility] MAIN LAB RANGES Specimen Blood Performing Organization [facility] [place] Phone Number [facility] MAIN LAB [address] [place] [address] * MAGNESIUM (10/16/2018 6:07 AM OPERATIONS LABEL CLERK) Magnesium 1.8 1.6 - 2.6 mg/dL [facility] MAIN LAB Specimen Blood Performing Organization Address City/[facility]/Zipcode Phone Number [facility] MAIN [facility] [address] [place] [address] * BASIC METABOLIC PANEL (10/16/2018 6:07 AM OPERATIONS LABEL CLERK) Sodium 139 137 - 147 MMOL/L [facility] MAIN LAB Potassium 3.6 3.5 - 5.1 MMOL/L [facility] MAIN LAB Chloride 103 98 - 110 MMOL/L [facility] MAIN LAB CO2 30 21 - 30 MMOL/L [facility] MAIN [facility] Anion Gap 6 3 - 12 [facility] MAIN LAB Glucose 129 (H) 70 - 100 MG/DL [facility] MAIN LAB Blood Urea Nitrogen 12 7 - 25 MG/DL [facility] MAIN LAB Creatinine 0.82 0.4 - 1.00 MG/DL [facility] MAIN LAB Calcium 7.9 (L) 8.5 - 10.6 MG/DL [facility] MAIN LAB [...] for questions. Specimen Blood Performing Organization Address City/[facility]/Zipcode Phone Number MAIN LAB [address] [place] [address] * CBC (10/16/2018 6:07 AM OPERATIONS LABEL CLERK) White Blood Cells 8.2 4.5 - 11.0 K/UL [facility] MAIN LAB RBC 3.37 (L) 4.0 - 5.0 M/UL [facility] MAIN LAB Hemoglobin 10.9 (L) 12.0 - 15.0 GM/DL [facility] MAIN LAB Hematocrit 31.8 (L) 36 - 45 % [facility] MAIN LAB MCV 94.5 80 - 100 FL [facility] MAIN LAB MCH 32.2 26 - 34 PG [facility] MAIN LAB MCHC 34.1 32.0 - 36.0 G/DL [facility] MAIN LAB RDW 12.8 11 - 15 % [facility] MAIN LAB Platelet Count 288 150 - 400 K/UL [facility] MAIN [facility] MPV 7.3 7 - 11 FL [facility] MAIN LAB Specimen Blood Performing Organization Address City/[facility]/Zipcode Phone Number [facility] MAIN [facility] [address] [place] [address] * CALCIUM (10/15/2018 8:24 PM OPERATIONS LABEL CLERK) Calcium 7.8 (L) 8.5 - 10.6 MG/DL [facility] MAIN LAB Specimen Blood Performing Organization Address [facility] Phone Number [facility] LAB [address] [place] [address] * IONIZED CALCIUM (10/15/2018 8:24 PM OPERATIONS LABEL CLERK) Ionized Calcium 0.96 (L) 1.0 - 1.3 MMOL/L [facility] MAIN LAB Specimen Blood Performing Organization Address [facility] Phone Number MA[facility] LAB [address] [place] [address] * 25-OH VITAMIN D (D2 + D3) (10/15/2018 8:24 PM OPERATIONS LABEL CLERK) Vitamin D(25-OH)Total 9.1 (L) 30 - 80 NG/ML MAIN LAB Specimen Blood Performing Organization Address [facility] Phone Number MAIN LAB [address] [place] [address] * IONIZED CALCIUM (10/15/2018 11:08 AM OPERATIONS LABEL CLERK) Ionized Calcium 0.98 (L) 1.0 - 1.3 MMOL/L MAIN LAB Specimen Blood Performing Organization Address [facility] Phone Number MAIN LAB [address] [place] [address] * CALCIUM (10/15/2018 11:08 AM OPERATIONS LABEL CLERK) Calcium 7.8 (L) 8.5 - 10.6 MG/DL [facility] MAIN LAB Specimen Blood Performing Organization Address [facility] Phone Number MA[facility] LAB [address] [place] [address] * PARATHYROID HORMONE (10/15/2018 3:15 AM OPERATIONS LABEL CLERK) PTH Hormone 4.0 (L) 10 - 65 PG/ML [facility] MAIN LAB Performing Organization Address [facility] Phone Number MA[facility] LAB [address] [place] [address] * IONIZED CALCIUM (10/15/2018 3:15 AM OPERATIONS LABEL CLERK) Ionized Calcium 0.76 (L) 1.0 - 1.3 MMOL/L [facility] MAIN LAB Specimen Blood Performing Organization Address City/[facility]/Zipcode Phone Number MAIN LAB [address] [place] [address] * PHOSPHORUS (10/15/2018 3:15 AM OPERATIONS LABEL CLERK) Phosphorus 2.8Comment: NOTE NEW REFERENCE 2.0 - 4.5 MG/DL [facility] MAIN LAB RANGES Specimen Blood Performing Organization Address [facility]/Zipcode Phone Number MAIN LAB [address] [place] [address] * MAGNESIUM (10/15/2018 3:15 AM OPERATIONS LABEL CLERK) Magnesium 1.9 1.6 - 2.6 mg/dL [facility] MAIN LAB Specimen Blood Performing Organization Address [facility]/Zipcode Phone Number MAIN LAB [address] [place] [address] * BASIC METABOLIC PANEL (10/15/2018 3:15 AM OPERATIONS LABEL CLERK) Sodium 138 137 - 147 MMOL/L [facility] MAIN LAB Potassium 4.0 3.5 - 5.1 MMOL/L [facility] MAIN [facility] Chloride 105 98 - 110 MMOL/L [facility] MAIN [facility] CO2 26 21 - 30 MMOL/L [facility] MAIN [facility] Anion Gap 7 3 - 12 [facility] MAIN LAB Glucose 104 (H) 70 - 100 MG/DL [facility] MAIN LAB Blood Urea Nitrogen 10 7 - 25 MG/DL [facility] MAIN LAB Creatinine 0.77 0.4 - 1.00 MG/DL [facility] MAIN LAB Calcium 7.3 (L) 8.5 - 10.6 MG/DL [facility] MAIN LAB [...] for questions. Specimen Blood Performing Organization Address City/[facility]/Zipcode Phone Number MAIN LAB [address] [place] [address] * CBC (10/15/2018 3:15 AM OPERATIONS LABEL CLERK) White Blood Cells 9.0 4.5 - 11.0 K/UL [facility] MAIN LAB RBC 3.23 (L) 4.0 - 5.0 M/UL [facility] MAIN LAB Hemoglobin 10.4 (L) 12.0 - 15.0 GM/DL MAIN LAB Hematocrit 30.5 (L) 36 - 45 % [facility] MAIN LAB MCV 94.4 80 - 100 FL MAIN LAB MCH 32.4 26 - 34 PG MAIN LAB MCHC 34.3 32.0 - 36.0 G/DL MAIN LAB RDW 12.7 11 - 15 % [facility] MAIN LAB Platelet Count 232 150 - 400 K/UL [facility] MAIN LAB MPV 7.5 7 - 11 FL MAIN LAB Specimen Blood Performing Organization Address City/[facility] Phone Number MAIN LAB [address] [place] [address] * CALCIUM (10/14/2018 10:53 PM OPERATIONS LABEL CLERK) Calcium 7.5 (L) 8.5 - 10.6 MG/DL MAIN LAB Specimen Blood Performing Organization Address City/[facility] Phone Number MAIN LAB [address] [place] [address] * IONIZED CALCIUM (10/14/2018 10:45 PM OPERATIONS LABEL CLERK) Ionized Calcium 0.71 (L) 1.0 - 1.3 MMOL/L MAIN LAB Performing Organization Address City/[facility] Phone Number MAIN LAB [address] [place] [address] * CALCIUM (10/14/2018 6:15 PM OPERATIONS LABEL CLERK) Calcium 7.2 (L) 8.5 - 10.6 MG/DL MAIN LAB Specimen Blood Performing Organization Address City/[facility] Phone Number MAIN LAB [address] [place] [address] * IONIZED CALCIUM (10/14/2018 6:15 PM OPERATIONS LABEL CLERK) Ionized Calcium 0.98 (L) 1.0 - 1.3 MMOL/L MAIN LAB Specimen Blood Performing Organization Address City/[facility]/Zipcode Phone Number MAIN LAB [address] [place] [address] * CALCIUM (10/14/2018 3:38 PM OPERATIONS LABEL CLERK) Calcium 7.6 (L) 8.5 - 10.6 MG/DL MAIN LAB Specimen Blood Performing Organization Address City/[facility] Phone Number MAIN LAB [address] [place] [address] * CALCIUM (10/14/2018 10:30 AM OPERATIONS LABEL CLERK) Calcium 7.8 (L) 8.5 - 10.6 MG/DL [facility] MAIN LAB Specimen Blood Performing Organization Address City/[facility] Phone Number [facility] MAIN LAB [address] [place] [address] * IONIZED CALCIUM (10/14/2018 10:30 AM OPERATIONS LABEL CLERK) Ionized Calcium 1.04 1.0 - 1.3 MMOL/L K[facility] MAIN LAB Specimen Blood Performing Organization Address [facility] Phone Number [facility] MAIN LAB [address] [place] [address] * IONIZED CALCIUM (10/14/2018 7:20 AM OPERATIONS LABEL CLERK) Ionized Calcium 0.98 (L) 1.0 - 1.3 MMOL/L [facility] MAIN LAB Specimen Blood Performing Organization Address [facility] Phone Number [facility] MAIN LAB [address] [place] [address] * PHOSPHORUS (10/14/2018 5:47 AM OPERATIONS LABEL CLERK) Phosphorus 3.3Comment: NOTE NEW REFERENCE 2.0 - 4.5 MG/DL K[facility] MAIN LAB RANGES Specimen Blood Performing Organization Address [facility] Phone Number [facility] MAIN LAB [address] [place] [address] * MAGNESIUM (10/14/2018 5:47 AM OPERATIONS LABEL CLERK) Magnesium 2.1 1.6 - 2.6 mg/dL [facility] MAIN LAB Specimen Blood Performing Organization Address [facility] Phone Number [facility] MAIN LAB [address] [place] [address] * BASIC METABOLIC PANEL (10/14/2018 5:47 AM OPERATIONS LABEL CLERK) Sodium 140 137 - 147 MMOL/L [facility] MAIN LAB Potassium 3.7 3.5 - 5.1 MMOL/L [facility] MAIN LAB Chloride 106 98 - 110 MMOL/L [facility] MAIN LAB CO2 26 21 - 30 MMOL/L [facility] MAIN LAB Anion Gap 8 3 - 12 K[facility] MAIN LAB Glucose 114 (H) 70 - 100 MG/DL [facility] MAIN LAB Blood Urea Nitrogen 12 7 - 25 MG/DL [facility] MAIN LAB Creatinine 0.87 0.4 - 1.00 MG/DL [facility] MAIN LAB Calcium 8.1 (L) 8.5 - 10.6 MG/DL [facility] MAIN LAB [...] for questions. Specimen Blood Performing Organization Address City/[facility] Phone Number MAIN LAB [address] [place] [address] * CBC (10/14/2018 5:47 AM OPERATIONS LABEL CLERK) White Blood Cells 8.0 4.5 - 11.0 K/UL [facility] MAIN LAB RBC 3.40 (L) 4.0 - 5.0 M/UL [facility] MAIN LAB Hemoglobin 11.1 (L) 12.0 - 15.0 GM/DL K[facility] MAIN LAB Hematocrit 32.2 (L) 36 - 45 % [facility] MAIN LAB MCV 94.7 80 - 100 FL [facility] MAIN LAB MCH 32.5 26 - 34 PG [facility] MAIN LAB MCHC 34.4 32.0 - 36.0 G/DL [facility] MAIN LAB RDW 12.7 11 - 15 % [facility] MAIN LAB Platelet Count 260 150 - 400 K/UL [facility] MAIN LAB MPV 7.7 7 - 11 FL K[facility] MAIN LAB Specimen Blood Performing Organization Address [facility] Phone Number [facility] MAIN LAB [address] [place] [address] * CALCIUM (10/13/2018 11:30 PM OPERATIONS LABEL CLERK) Calcium 7.7 (L) 8.5 - 10.6 MG/DL [facility] MAIN LAB Specimen Blood Performing Organization Address City/[facility]/Zipcode Phone Number [facility] MAIN LAB [address] [place] [address] * IONIZED CALCIUM (10/13/2018 11:30 PM OPERATIONS LABEL CLERK) Ionized Calcium 0.99 (L) 1.0 - 1.3 MMOL/L [facility] MAIN LAB Specimen Blood Performing Organization Address [facility] Phone Number MAIN LAB [address] [place] [address] * ABDOMEN AP ONLY (10/13/2018 3:15 PM OPERATIONS LABEL CLERK) Impressions Performed At NG tube with tip [...] Interface, Radiant Results - 10/13/2018 5:25 PM OPERATIONS LABEL CLERK ABDOMEN AP ONLY Clinical Indication: Female, 58 [...] on 10/13/2018 4:35 PM. Performing Organization Address City/[facility] Phone Number [facility] RAD RESULTS * CALCIUM (10/13/2018 3:00 PM OPERATIONS LABEL CLERK) Calcium 9.1 8.5 - 10.6 MG/DL [facility] MAIN LAB Specimen Blood Performing Organization Address City/[facility]/Zipcode Phone Number [facility] MAIN LAB [address] [place] [address] * IONIZED CALCIUM (10/13/2018 3:00 PM OPERATIONS LABEL CLERK) Ionized Calcium 1.13 1.0 - 1.3 MMOL/L [facility] MAIN LAB Specimen Blood Performing Organization Address [facility] Phone Number [facility] MAIN LAB [address] [place] [address] * PARATHYROID HORMONE (10/13/2018 3:00 PM OPERATIONS LABEL CLERK) PTH Hormone 6.0 (L) 10 - 65 PG/ML [facility] LAB Specimen Blood Performing Organization Address City/State/Zipcode Phone Number [facility] LAB [address] [place] [address] * SURGICAL PATHOLOGY (10/13/2018 12:12 PM OPERATIONS LABEL CLERK) PATHOLOGY REPORT [facility] [email or web address] Department of Pathology and Laboratory Medicine [address] [place] [address] Surgical Pathology Office:[phone] :[phone] SURGICAL PATHOLOGY REPORT NAME: JACKI MADSEN SURG PATH #: [id number] MR #: [id number] SPECIMEN CLASS: [facility] BILLING #: [id number] ALT ID #:LOCATION: DISCHARGED DATE OF PROCEDURE: [...] material indicated in this report. +++ +++ ksw/10/14/2018 ############################## ############################## ############ Material Received: A: right [...] A8-A9 Adipose tissue and possible lymph nodes. ([facility]) B. Received in formalin labeled with the [...] B10-B11 Fibroadipose tissue and possible lymph nodes. ([facility]) C. Fixative: Fresh Labeled: "Larynx and total [...] tip exiting off. 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 C2 Right aryepiglottic fold & right piriform sinus (with inked pyriform sinus margin). C3Left aryepiglottic fold & left piriform sinus (with inked pyriform sinus margin). G1Dkgdlnptyj, inked vallecular/base of tongue margin. C5 Post cricoid mucosal margin. N1Slekj true vocal cord/ventricle/false vocal cord with paraglottic space. C7Left true vocal cord/ventricle/false vocal cord with paraglottic space. M0Qxycpabe commissure. Q5Ziftuylnsv and pre-epiglottic space. R14Bfjbm to right/left paraglottic space. Q77Zeyhz to thyroid cartilage (at deepest invasion). H63Rowqi to nearest anterior soft tissue margin. N19Qehoked of posterior cricoid cartilage with posterior cricoid area. B79Hdnqdfg of hyoid bone. A10Pajtqvlikgtuvt section of skin at tracheostomy site. R41Xnwbzxxbqirerd sections from left thyroid. V22Nqmzzkqntvfwuw sections from right thyroid. ([facility]) D. Received fresh, labeled with patient's name and "right hypopharynx" is a 6.9 x 0.4 x 0.3 cm white-henson tissue fragment. The specimen is bisected and is submitted entirely for frozen consultation with the remnant placed in cassette D1FS for permanent diagnosis. ([facility]) E. Received fresh, labeled with patient's name and "left hypopharynx" is a 7.5 x 0.4 x 0.3 cm white-henson tissue fragment. The specimen is trisected and is submitted entirely for frozen consultation with the remnant placed in cassette E1FS for permanent diagnosis. ([facility]) F. Received fresh, labeled with patient's name and "base of tongue MM" is a 1.3 x 0.3 x 0.3 cm white-henson tissue fragment. The specimen is submitted entirely for frozen consultation with the remnant placed in cassette F1FS for permanent diagnosis. ([facility]) G. Received fresh, labeled with patient's name and "post cricoid" is a 1.4 x 0.3 x 0.3 cm white-henson tissue fragment. The specimen is submitted entirely for frozen consultation with the remnant placed in cassette G1FS for permanent diagnosis. ([facility]) [facility]/10/13/2018 Intraoperative Consultation: D1FS, mucosa, "right hypopharynx", biopsy: Negative for malignancy E1FS, mucosa, "left hypopharynx", biopsy: Negative for malignancy F1FS, mucosa, "base of tongue MM", biopsy: Negative for malignancy G1FS, mucosa, "post cricoid", biopsy: Negative for malignancy Frozen section performed at the [facility], [facility] A, [facility] [place] [address]. Jasmina Rubi MD Performing Organization Address City/State/Zipcode Phone Number MAIN LAB [address] [place] [address] * BLOOD TYPE CONFIRMATION - ORDER ONLY IF REQUESTED BY LAB (10/13/2018 8:35 AM OPERATIONS LABEL CLERK) ABO/RH(D) A POS MAIN LAB Specimen Blood Performing Organization Address City/[facility]/Zipcode Phone Number MAIN LAB [address] [place] [address] * TYPE & CROSSMATCH (10/13/2018 8:30 AM OPERATIONS LABEL CLERK) Units Ordered 2 [facility] LAB Crossmatch Expires 10/16/2018 MAIN LAB Record Check 2ND TYPE REQUIRED [facility] LAB ABO/RH(D) A POS MAIN LAB Antibody Screen NEG MAIN LAB Electronic Crossmatch YES MAIN LAB Specimen Blood Performing Organization Address City/[facility]/Zipcode Phone Number MAIN LAB [address] [place] [address] * 2-D + DOPPLER ECHOCARDIOGRAM (10/08/2018 11:14 AM OPERATIONS LABEL CLERK) BSA 1.9 m2 OTHER OUTSIDE LAB LVIDD [...] 34 OTHER OUTSIDE LAB Cardiology Ultrasound Siemens [id number] OTHER OUTSIDE LAB Machine Left Ventricle Mass [...] * SWALLOW MOTION SERIES (10/07/2018 8:48 AM OPERATIONS LABEL CLERK) Impressions Performed At 1. Laryngeal penetration with [...] Interface, Radiant Results - 10/07/2018 11:27 AM OPERATIONS LABEL CLERK SWALLOW MOTION SERIES CLINICAL HISTORY: Female, 58 [...] on 10/07/2018 9:07 AM. Performing Organization Address City/State/[facility] Phone Number [facility] RAD RESULTS * NM PET SCAN TORSO (SKULL-THIGHS) (10/06/2018 1:21 PM OPERATIONS LABEL CLERK) Impressions Performed At 1.Hypermetabolic left glottic mass, [...] Interface, Radiant Results - 10/06/2018 5:08 PM OPERATIONS LABEL CLERK PET/CT NECK, CHEST, ABDOMEN AND PELVIS RADIOPHARMACEUTICAL: [...] * CT NECK W/CONTRAST (10/06/2018 10:14 AM OPERATIONS LABEL CLERK) Impressions Performed At 1. Interval tracheostomy and [...] Interface, Radiant Results - 10/06/2018 11:01 [address] OPERATIONS LABEL [address] CT Neck with Contrast Clinical Indication: Female, [...] on 10/06/2018 10:29 AM. Performing Organization Address City/State/Zipcode Phone Number [facility] RAD RESULTS * CT CHEST W CONTRAST (10/06/2018 10:14 AM OPERATIONS LABEL CLERK) Impressions Performed At 1. Subcutaneous air and [...] Interface, Radiant Results - 10/06/2018 10:56 AM OPERATIONS LABEL CLERK CT CHEST W CONTRAST INDICATION: Laryngeal mass [...] on 10/06/2018 10:42 AM. Performing Organization Address City/[facility] Phone Number RAD RESULTS * POC GLUCOSE (10/06/2018 9:43 AM OPERATIONS LABEL CLERK) Glucose, POC 83 70 - 100 MG/DL [facility] MAIN LAB Performing Organization Address [facility] Phone Number MAIN LAB [address] [place] [phone] * PHOSPHORUS (10/06/2018 8:45 AM OPERATIONS LABEL CLERK) Phosphorus 2.6Comment: NOTE NEW REFERENCE 2.0 - 4.5 MG/DL [facility] MAIN LAB RANGES Performing Organization Address [facility] Phone Number MAIN LAB [address] [place] [address] * MAGNESIUM (10/06/2018 8:45 AM OPERATIONS LABEL CLERK) Magnesium 1.8 1.6 - 2.6 mg/dL [facility] MAIN LAB Performing Organization Address [facility] Phone Number MAIN LAB [address] [place] [address] * BASIC METABOLIC PANEL (10/06/2018 8:45 AM OPERATIONS LABEL CLERK) Sodium 138 137 - 147 MMOL/L [facility] MAIN LAB Potassium 4.4 3.5 - 5.1 MMOL/L [facility] MAIN LAB Chloride 107 98 - 110 MMOL/L [facility] MAIN LAB CO2 26 21 - 30 MMOL/L [facility] MAIN LAB Anion Gap 5 3 - 12 [facility] MAIN LAB Glucose 94 70 - 100 MG/DL [facility] MAIN LAB Blood Urea Nitrogen 13 7 - 25 MG/DL [facility] MAIN LAB Creatinine 0.61 0.4 - 1.00 MG/DL [facility] MAIN LAB [...] text.Please contact the Clinical Pharmacist for questions. Performing Organization Address City/[facility] Phone Number MAIN LAB [address] [place] [address] * THYROID STIMULATING HORMONE-TSH (10/06/2018 8:45 AM OPERATIONS LABEL CLERK) TSH 0.680 0.35 - 5.00 MCU/ML [facility] MAIN LAB Specimen Blood Performing Organization Address [facility] Phone Number [facility] MAIN LAB [address] [place] [address] * PREALBUMIN (10/06/2018 8:45 AM OPERATIONS LABEL CLERK) Prealbumin 19.0 17 - 34 MG/DL [facility] MAIN LAB Specimen Blood Performing Organization Address [facility] Phone Number [facility] MAIN LAB [address] [place] [address] * ALBUMIN (10/06/2018 8:45 AM OPERATIONS LABEL CLERK) Albumin 4.0 3.5 - 5.0 G/DL [facility] MAIN LAB Specimen Blood Performing Organization Address [facility] Phone Number [facility] MAIN LAB [address] [place] [address] * BASIC METABOLIC PANEL (10/05/2018 4:41 PM OPERATIONS LABEL CLERK) Sodium 137 137 - 147 MMOL/L [facility] MAIN LAB Potassium 3.3 (L) 3.5 - 5.1 MMOL/L [facility] MAIN LAB Chloride 104 98 - 110 MMOL/L [facility] MAIN LAB CO2 25 21 - 30 MMOL/L [facility] MAIN LAB Anion Gap 8 3 - 12 [facility] MAIN LAB Glucose 169 (H) 70 - 100 MG/DL [facility] MAIN LAB Blood Urea Nitrogen 19 7 - 25 MG/DL [facility] MAIN LAB Creatinine 0.74 0.4 - 1.00 MG/DL [facility] MAIN LAB Calcium 8.9 8.5 - 10.6 MG/DL [facility] MAIN LAB eGFR Non >60 >60 mL/min [facility] MAIN LAB Comment: The eGFR is not validated for use in drug dosing adjustments.Continue to use estimated creatinine clearance per dosing reference text.Please contact the Clinical Pharmacist for questions. eGFR >60 >60 mL/min MAIN LAB Comment: The eGFR is not validated for use in drug dosing adjustments.Continue to use estimated creatinine clearance per dosing reference text.Please contact the Clinical Pharmacist for questions. Specimen Blood Performing Organization Address City/[facility]/Zipcode Phone Number [facility] LAB [address] [place] [address] * CBC (10/05/2018 4:41 PM OPERATIONS LABEL CLERK) White Blood Cells 7.2 4.5 - 11.0 K/UL MAIN LAB RBC 4.23 4.0 - 5.0 M/UL [facility] LAB Hemoglobin 13.4 12.0 - 15.0 GM/DL MAIN LAB Hematocrit 40.1 36 - 45 % MAIN LAB MCV 94.9 80 - 100 FL MAIN LAB MCH 31.7 26 - 34 PG [facility] LAB MCHC 33.4 32.0 - 36.0 G/DL [facility] LAB RDW 12.7 11 - 15 % [facility] LAB Platelet Count 220 150 - 400 K/UL [facility] LAB MPV 7.7 7 - 11 FL [facility] LAB Specimen Blood Performing Organization Address City/[facility]/Zipcode Phone Number [facility] LAB [address] [place] [address] * SURGICAL PATHOLOGY (10/05/2018 4:02 PM OPERATIONS LABEL CLERK) PATHOLOGY REPORT [facility] www[employer] Department of Pathology and Laboratory Medicine [address] [place] [address] Surgical Pathology Office:[phone] :[phone] SURGICAL PATHOLOGY REPORT NAME: JACKI MADSEN SURG PATH #: [id number] MR #: [id number] SPECIMEN CLASS: [facility] BILLING #: [id number] ALT ID #:LOCATION: [facility] DATE OF PROCEDURE: 10/05/2018 AGE:58 SEX: F DATE RECEIVED: 10/05/2018 : 1960TIME RECEIVED:16:02 PHYSICIAN: KALLI SNYDER DATE OF REPORT: 10/07/2018 COPY TO: DATE OF PRINTIN10/07/2018 ############################## ############################## ############ Final Diagnosis: A. Squamous mucosa, "left true vocal cord", biopsy: Moderately differentiated squamous cell carcinoma, keratinizing. B. 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 Comment: Pursuant to the Chief Operating Engineer Program at the [facility] Pathology Department, selected slides from this case have been concurrently reviewed by the following pathologist: Dr. Karey Jefferson who agrees with the final diagnosis. Attestation: By this signature, I attest that I have personally formulated the final interpretation expressed in this report and that the above diagnosis is based upon my examination of the slides and/or other material indicated in this report. +++ +++ Truong Edward MD Resident dcw/10/06/2018 ############################## ############################## ############ Material Received: A: left true vocal cord B: left true vocal cord in formalin History: 58-year-old female with a history of laryngeal mass. Gross Description: A. Received fresh labeled with the patient's name and "left true vocal cord" is a 0.8 x 0.8 x 0.4 cm henson-red tissue aggregate. The specimen is submitted entirely in cassette A1FS for frozen section and permanent section diagnosis. (kh) B. Received in formalin, labeled with the patient's name and "left true vocal cord" is a 1.1 x 0.5 x 0.2 cm aggregate of pale-henson rubbery tissue fragments. The specimen is submitted entirely in cassette B1. (lmt) /10/05/2018 Intraoperative Consultation: A1FS, squamous mucosa, "left true vocal cord", biopsy: Moderately differentiated squamous cell carcinoma. Frozen section performed at the [facility], [facility] A, [address] [place] [address]. Stone Chávez MD Performing Organization Address City/State/Zipcode Phone Number [facility] LAB RESULTS * TELEMETRY STRIPS-SCAN (10/05/2018 12:00 AM OPERATIONS LABEL CLERK) Narrative Performed At Ordered by an unspecified provider. * EXERCISE OXIMETRY-SCAN (10/05/2018 12:00 AM OPERATIONS LABEL CLERK) Narrative Performed At Ordered by an unspecified provider. * ECG-SCAN (10/05/2018 12:00 AM OPERATIONS LABEL CLERK) Narrative Performed At Ordered by an unspecified provider. in this encounter Visit Diagnoses Diagnosis Laryngeal mass - Primary Other diseases of larynx Mass of larynx Other diseases of larynx Tobacco abuse Tobacco use disorder Pharyngeal dysphagia Dysphagia, pharyngeal phase Moderate persistent asthma without complication Unspecified asthma Anxiety Anxiety state, unspecified Depression, unspecified depression type Hypocalcemia Shortness of breath Asthma Unspecified asthma Dysphagia Dysphagia, unspecified in this encounter Admitting Diagnoses Diagnosis Laryngeal mass Other diseases of larynx in this encounter Administered Medications Action Date Dose Rate Site Medication Order MAR Action 10/15/2018 3:30 AM OPERATIONS LABEL CLERK 650 mg acetaminophen (TYLENOL) oral solution Given 650 mg 650 mg, Per NG tube, EVERY 4 HOURS PRN, Starting Fri10/13/18 at 1609, Until Fri10/15/18 at 0645, Pain non-opioid: may be used alone or in combination with opioid analgesia, Temp > 38.5 C, TOTAL ACETAMINOPHEN DOSE NOT TO EXCEED 4GM DAILY, 650 mg Given 10/14/2018 8:46 PM OPERATIONS LABEL CLERK 650 mg Given 10/14/2018 2:39 PM OPERATIONS LABEL CLERK 10/22/2018 9:19 AM OPERATIONS LABEL CLERK 650 mg acetaminophen (TYLENOL) oral solution Given 650 mg 650 mg, Per NG tube, EVERY 4 HOURS, First dose on Alexandra 10/15/18 at 0800, Until Discontinued, TOTAL ACETAMINOPHEN DOSE NOT TO EXCEED 4GM DAILY, 650 mg Given 10/22/2018 4:27 AM OPERATIONS LABEL CLERK 650 mg Given 10/21/2018 10:00 PM OPERATIONS LABEL CLERK 10/12/2018 11:09 PM OPERATIONS LABEL CLERK 650 mg acetaminophen (TYLENOL) tablet 650 mg Given 650 mg, Oral, EVERY 4 HOURS PRN, Starting Fri10/05/18 at 1823, Until Fri10/13/18 at 1610, Temp > 38.5 C, TOTAL ACETAMINOPHEN DOSE NOT TO EXCEED 4GM DAILY, 650 mg Given 10/12/2018 2:34 PM OPERATIONS LABEL CLERK 650 mg Given 10/12/2018 6:51 AM OPERATIONS LABEL CLERK 10/21/2018 3:19 PM OPERATIONS LABEL CLERK 0.25 mg ALPRAZolam (XANAX) tablet 0.25 mg Given 0.25 mg, Oral, TWICE DAILY PRN, Starting Fri10/21/18 at 1427, Until Alexandra 10/22/18 at 1308, Anxiety PO 10/22/2018 9:20 AM OPERATIONS LABEL CLERK 875 mg amoxicillin/K clavulanate (AUGMENTIN) Given oral suspension 875 mg 875 mg, Per NG tube, TWICE DAILY, First dose on Fri10/21/18 at 1215, Until Discontinued 875 mg Given 10/21/2018 10:00 PM OPERATIONS LABEL CLERK 875 mg Given 10/21/2018 3:19 PM OPERATIONS LABEL CLERK 10/19/2018 2:30 AM OPERATIONS LABEL CLERK 3 g 100 mL/hr ampicillin/sulbactam (UNASYN) 3 g in Given - New sodium chloride 0.9% (NS) 100 mL IVPB Bag (MB+) 3 g, Intravenous, 100 mL, Administer over 60 Minutes, EVERY 6 HOURS, First dose on Fri10/13/18 at 2000, Until Discontinued 3 g 100 mL/hr Given - New Bag 10/18/2018 9:20 PM OPERATIONS LABEL CLERK 3 g 100 mL/hr Given - New Bag 10/18/2018 3:02 PM OPERATIONS LABEL CLERK 10/22/2018 9:16 AM OPERATIONS LABEL CLERK 1 spray antiseptic mucus solvent 120 mL solution Given 1 spray 1 spray, Tracheal Tube, EVERY 2 HOURS WHILE AWAKE, First dose on Fri10/13/18 at 1700, Until Discontinued, Dilute 1:1 with NS prior to administration. And PRN, 1 spray Given 10/21/2018 10:00 PM OPERATIONS LABEL CLERK 1 spray Given 10/21/2018 2:30 PM OPERATIONS LABEL CLERK 10/13/2018 5:18 AM OPERATIONS LABEL CLERK 1 spray antiseptic mucus solvent 120 mL solution Given 1-2 spray 1-2 spray, Mucous Membrane, EVERY 2 HOURS WHILE AWAKE, First dose on Fri10/05/18 at 1730, Until Discontinued, Dilute 1:1 with NS prior to administration., 2 sprays Given 10/12/2018 5:30 PM OPERATIONS LABEL CLERK 2 sprays Given 10/12/2018 9:14 AM OPERATIONS LABEL CLERK 10/07/2018 8:30 AM OPERATIONS LABEL CLERK 10 mL barium sulfate 40 % (VARIBAR HONEY) oral Given suspension 10 mL 10 mL, Oral, ONCE, 1 dose, Fri10/07/18 at 0900, GI Procedure Area Only 10/07/2018 8:30 AM OPERATIONS LABEL CLERK 10 mL barium sulfate 40 % (VARIBAR NECTAR) Given oral suspension 10 mL 10 mL, Oral, ONCE, 1 dose, Fri10/07/18 at 0900, GI Procedure Area Only 10/07/2018 9:00 AM OPERATIONS LABEL CLERK 10 mL barium sulfate 40 % (VARIBAR PUDDING) Given oral paste 10 mL 10 mL, Oral, ONCE, 1 dose, Fri10/07/18 at 0900, GI Procedure Area Only 10/07/2018 8:30 AM OPERATIONS LABEL CLERK 10 mL barium sulfate 40 % (VARIBAR THIN Given LIQUID) oral powder for suspension 10 mL 10 mL, Oral, ONCE, 1 dose, Fri10/07/18 at 0900, Mixing Instructions: 1. Gently shake the barium sulfate to loosen the powder. 2. Remove Cap. Add water to the 40% (w/v) line and replace the cap. 3. Invert bottle and tap with fingers to mix the powder into the water. 4. Shake vigorously for 30 seconds. Let stand for 5 minutes. 5. Suspension has hydrated and settled. Re-fill with water to the 40% line and replace cap. 6. Re-shake thoroughly. Product is now ready for use., GI Procedure Area Only 10/12/2018 12:17 PM OPERATIONS LABEL CLERK 10 mg bisacodyl (DULCOLAX) rectal suppository Given 10 mg 10 mg, Rectal, ONCE, 1 dose, Fri10/12/18 at 1200, Hold for loose stools, 10/18/2018 9:22 PM OPERATIONS LABEL CLERK 0.5 mcg calcitriol (ROCALTROL) oral solution 0.5 Given mcg 0.5 mcg, Per Corpak Tube, TWICE DAILY, First dose on Fri10/15/18 at 1430, Until Discontinued 0.5 mcg Given 10/18/2018 9:33 AM OPERATIONS LABEL CLERK 0.5 mcg Given 10/17/2018 9:52 PM OPERATIONS LABEL CLERK 10/21/2018 8:54 AM OPERATIONS LABEL CLERK 0.5 mcg calcitriol (ROCALTROL) oral solution 0.5 Given mcg 0.5 mcg, Per [place] Tube, DAILY, First dose on Fri10/20/18 at 0900, Until Discontinued 0.5 mcg Given 10/20/2018 9:55 AM OPERATIONS LABEL CLERK 10/14/2018 5:45 PM OPERATIONS LABEL CLERK 2,500 mg calcium carbonate (OS-LEWIS) tablet 2,500 Given mg 2,500 mg, Per NG tube, THREE TIMES DAILY WITH MEALS, First dose on Fri10/13/18 at 1800, Until Discontinued, Each 1250mg Calcium Carbonate delivers 500mg elemental calcium. Each 500mg elemental calcium is equivalent to 1250mg calcium carbonate., 2,500 mg Given 10/14/2018 11:53 AM OPERATIONS LABEL CLERK 2,500 mg Given 10/14/2018 9:15 AM OPERATIONS LABEL CLERK 10/15/2018 1:41 AM OPERATIONS LABEL CLERK 2,500 mg calcium carbonate (OS-LEWIS) tablet 2,500 Given mg 2,500 mg, Per NG tube, ONCE, 1 dose, [facility] 10/15/18 at 0145, Each 1250mg Calcium Carbonate delivers 500mg elemental calcium. Each 500mg elemental calcium is equivalent to 1250mg calcium carbonate., 10/15/2018 8:35 AM OPERATIONS LABEL CLERK 1,900 mg calcium citrate (CALCITRATE) tablet Given 1,900 mg 1,900 mg, Per NG tube, THREE TIMES DAILY, First dose on Fri10/15/18 at 0900, Until Discontinued, Each tablet delivers 200mg elemental Calcium, 10/16/2018 8:28 PM OPERATIONS LABEL CLERK 2,850 mg calcium citrate (CALCITRATE) tablet Given 2,850 mg 2,850 mg, Per NG tube, FOUR TIMES DAILY - SEE EMAR, First dose on Fri10/15/18 at 1215, Until Discontinued, Each tablet delivers 200mg elemental Calcium, 2,850 mg Given 10/16/2018 5:29 PM OPERATIONS LABEL CLERK 2,850 mg Given 10/16/2018 1:38 PM OPERATIONS LABEL CLERK 10/18/2018 5:01 AM OPERATIONS LABEL CLERK 2,850 mg calcium citrate (CALCITRATE) tablet Given 2,850 mg 2,850 mg, Per NG tube, EVERY 6 HOURS, First dose on [facility] 10/17/18 at 0645, Until Discontinued, Each tablet delivers 200mg elemental Calcium, 2,850 mg Given 10/18/2018 12:36 AM OPERATIONS LABEL CLERK 2,850 mg Given 10/17/2018 5:26 PM OPERATIONS LABEL CLERK 10/19/2018 9:02 PM OPERATIONS LABEL CLERK 2,850 mg calcium citrate (CALCITRATE) tablet Given 2,850 mg 2,850 mg, Per NG tube, THREE TIMES DAILY, First dose on [place] 10/18/18 at 0900, Until Discontinued, Each tablet delivers 200mg elemental Calcium, 2,850 mg Given 10/19/2018 2:39 PM OPERATIONS LABEL CLERK 2,850 mg Given 10/18/2018 9:19 PM OPERATIONS LABEL CLERK 10/21/2018 10:58 PM OPERATIONS LABEL CLERK 2,850 mg calcium citrate (CALCITRATE) tablet Given 2,850 mg 2,850 mg, Per NG tube, TWICE DAILY, First dose on 10/20/18 at 0900, Until Discontinued, Each tablet delivers 200mg elemental Calcium, 2,850 mg Given 10/21/2018 8:36 AM OPERATIONS LABEL CLERK 2,850 mg Given 10/20/2018 8:29 PM OPERATIONS LABEL CLERK 10/07/2018 8:51 PM OPERATIONS LABEL CLERK 50 mL/hr dextrose 5 % & 0.45% NaCl infusion Given - New 1,000 mL, Intravenous, at 50 mL/hr, Bag CONTINUOUS, Starting [facility] 10/06/18 at 1730, Until [facility] 10/08/18 at 0640 50 mL/hr Dose/Rate Change 10/07/2018 10:04 AM OPERATIONS LABEL CLERK 100 mL/hr Given - New Bag 10/07/2018 4:37 AM OPERATIONS LABEL CLERK 10/06/2018 9:38 AM OPERATIONS LABEL CLERK 25 mg diphenhydrAMINE (BENADRYL) injection 25 Given mg 25 mg, Intravenous, ONCE, 1 dose, [facility] 10/06/18 at 0730, Give prior to CT scan, 10/21/2018 8:36 AM OPERATIONS LABEL CLERK 25 mg diphenhydrAMINE (BENADRYL) injection 25 Given mg 25 mg, Intravenous, ONCE, 1 dose, [facility] 10/21/18 at 0815 10/19/2018 9:01 PM OPERATIONS LABEL CLERK 100 mg docusate (COLACE) oral solution 100 mg Given 100 mg, Per NG tube, TWICE DAILY, First dose on [facility] 10/13/18 at 2100, Until Discontinued, Hold for loose stools, 100 mg Given 10/19/2018 2:39 PM OPERATIONS LABEL CLERK 100 mg Given 10/18/2018 9:19 PM OPERATIONS LABEL CLERK 10/21/2018 8:54 AM OPERATIONS LABEL CLERK 50,000 Units ergocalciferol (vitamin D-2) Given (CALCIFEROL) oral solution 50,000 Units 50,000 Units, Oral, THREE TIMES WEEKLY (Once per day on Fri), First dose on Fri10/16/18 at 1830, Until Discontinued 50,000 Units Given 10/19/2018 2:41 PM OPERATIONS LABEL CLERK 50,000 Units Given 10/16/2018 8:22 PM OPERATIONS LABEL CLERK 10/22/2018 9:19 AM OPERATIONS LABEL CLERK 20 mg famotidine (PEPCID) oral suspension 20 Given mg 20 mg, Per NG tube, TWICE DAILY, First dose on Fri10/13/18 at 2100, Until Discontinued 20 mg Given 10/21/2018 10:00 PM OPERATIONS LABEL CLERK 20 mg Given 10/21/2018 8:36 AM OPERATIONS LABEL CLERK 10/12/2018 8:08 PM OPERATIONS LABEL CLERK 20 mg famotidine (PEPCID) tablet 20 mg Given 20 mg, Oral, TWICE DAILY, First dose on Fri10/05/18 at 2100, Until Discontinued 20 mg Given 10/12/2018 9:13 AM OPERATIONS LABEL CLERK 20 mg Given 10/11/2018 10:04 PM OPERATIONS LABEL CLERK FENTANYL CITRATE (PF) 50 MCG/ML IJ SOLN (Cabinet Override) NOW, 1 dose, Fri10/13/18 at 1445, Created by cabinet override, Created by cabinet override, 10/13/2018 3:10 PM OPERATIONS LABEL CLERK 25 mcg fentaNYL citrate PF (SUBLIMAZE) Given injection 25 mcg 25 mcg, Intravenous, EVERY 5 MIN PRN, Starting Fri10/13/18 at 1434, Until Fri10/13/18 at 1644, Pain Injectable, For Pain Score < 4, Maximum total dose of 200 mcg Hold for RR < 10, PACU (only) 25 mcg Given 10/13/2018 2:58 PM OPERATIONS LABEL CLERK 25 mcg Given 10/13/2018 2:49 PM OPERATIONS LABEL CLERK 10/05/2018 5:06 PM OPERATIONS LABEL CLERK 50 mcg fentaNYL citrate PF (SUBLIMAZE) Given injection 50 mcg 50 mcg, Intravenous, EVERY 5 MIN PRN, Starting Fri10/05/18 at 1617, Until Fri10/05/18 at 1823, Pain Injectable, For Pain Score 4-6, Maximum total dose 200 mcg Hold if RR < 10, PACU (only) 50 mcg Given 10/05/2018 4:50 PM OPERATIONS LABEL CLERK 10/14/2018 6:11 AM OPERATIONS LABEL CLERK 300 mg gabapentin (NEURONTIN) oral solution 300 Given mg 300 mg, Oral, EVERY 8 HOURS, First dose on Fri10/13/18 at 2200, Until Discontinued 300 mg Given 10/13/2018 10:31 PM OPERATIONS LABEL CLERK 10/22/2018 6:11 AM OPERATIONS LABEL CLERK 300 mg gabapentin (NEURONTIN) oral solution 300 Given mg 300 mg, Per NG tube, EVERY 8 HOURS, First dose on Fri10/14/18 at 1400, Until Discontinued 300 mg Given 10/21/2018 10:19 PM OPERATIONS LABEL CLERK 300 mg Given 10/21/2018 3:19 PM OPERATIONS LABEL CLERK 10/12/2018 10:56 PM OPERATIONS LABEL CLERK 5,000 Units Abdominal Tissue heparin (porcine) PF syringe 5,000 Units Given 5,000 Units, Subcutaneous, EVERY 8 HOURS, 21 doses, First dose on Fri10/06/18 at 0600, Last dose on Fri10/12/18 at 2200, NOTE: This is a HIGH ALERT Medication., 5,000 Units Abdominal Tissue Given 10/12/2018 2:34 PM OPERATIONS LABEL CLERK 5,000 Units Abdominal Tissue Given 10/12/2018 6:33 AM OPERATIONS LABEL CLERK 10/22/2018 6:10 AM OPERATIONS LABEL CLERK 5,000 Units Abdominal Tissue heparin (porcine) PF syringe 5,000 Units Given 5,000 Units, Subcutaneous, EVERY 8 HOURS, First dose on Fri10/14/18 at 0600, Until Discontinued, NOTE: This is a HIGH ALERT Medication., 5,000 Units Abdominal Tissue Given 10/21/2018 10:19 PM OPERATIONS LABEL CLERK 5,000 Units Abdominal Tissue Given 10/21/2018 3:20 PM OPERATIONS LABEL CLERK 10/05/2018 5:20 PM OPERATIONS LABEL CLERK 1 mg HYDROmorphone injection (DILAUDID) Given injection 1-2 mg 1-2 mg, Intravenous, ONCE PRN, 1 dose, Starting Fri10/05/18 at 1617, Until Fri10/05/18 at 1720, Pain Injectable, Maximum total dose of 2 mg Hold for RR <10, PACU (only) 10/21/2018 9:30 AM OPERATIONS LABEL CLERK 100 mL iohexol (OMNIPAQUE-300) 300 mg/mL Given injection 100 mL 100 mL, Oral, ONCE, 1 dose, Fri10/21/18 at 0930, NOTE: This is a HIGH ALERT Medication., 10/06/2018 10:15 AM OPERATIONS LABEL CLERK 150 mL iohexol (OMNIPAQUE-350) 350 mg/mL Given injection 150 mL 150 mL, Intravenous, ONCE, 1 dose, Fri10/06/18 at 1015, NOTE: This is a HIGH ALERT Medication., 10/05/2018 4:20 PM OPERATIONS LABEL CLERK lactated ringers infusion Given - New 1,000 mL, Intravenous, at 20 mL/hr, Bag CONTINUOUS, Starting Fri10/05/18 at 1500, Until Fri10/05/18 at 1838, Pre-Op Given - New Bag 10/05/2018 3:06 PM OPERATIONS LABEL CLERK 20 mL/hr Given - New Bag 10/05/2018 2:52 PM OPERATIONS LABEL CLERK 10/13/2018 11:00 AM OPERATIONS LABEL CLERK lactated ringers infusion Given - New 1,000 mL, 1,000 mL, Intravenous, at 20 Bag mL/hr, CONTINUOUS, Starting Fri10/13/18 at 0630, Until Fri10/13/18 at 1610, Pre-Op 1,000 mL 20 mL/hr Given - New Bag 10/13/2018 6:53 AM OPERATIONS LABEL CLERK LACTATED RINGERS IV SOLP (Cabinet Override) NOW, 1 dose, Fri10/05/18 at 1430, Created by cabinet override, Created by cabinet override, 10/14/2018 6:13 AM OPERATIONS LABEL CLERK 125 mcg levothyroxine (SYNTHROID) tablet 125 mcg Given 125 mcg, Per NG tube, DAILY, First dose on Fri10/13/18 at 1800, Until Discontinued, Give 1 hour before a meal. If patient is receiving tube feedings, hold tube feed 1hr before and 1hr after dose., 125 mcg Given 10/13/2018 6:38 PM OPERATIONS LABEL CLERK 10/22/2018 6:10 AM OPERATIONS LABEL CLERK 125 mcg levothyroxine (SYNTHROID) tablet 125 mcg Given 125 mcg, Per NG tube, DAILY 30MIN BEFORE BREAKFAST, First dose on [place] 10/15/18 at 0630, Until Discontinued, Give 1 hour before a meal. If patient is receiving tube feedings, hold tube feed 1hr before and 1hr after dose., 125 mcg Given 10/21/2018 6:35 AM OPERATIONS LABEL CLERK 125 mcg Given 10/20/2018 6:13 AM OPERATIONS LABEL CLERK 10/12/2018 12:17 PM OPERATIONS LABEL CLERK 148 mL magnesium citrate oral solution 148-296 Given mL 148-296 mL, Oral, ONCE, 1 dose, Fri10/12/18 at 1200, Please start with 1/2 bottle first if no results complete full dose., 10/16/2018 8:20 PM OPERATIONS LABEL CLERK 400 mg magnesium oxide (MAG-OX) tablet 400 mg Given 400 mg, Oral, TWICE DAILY, 2 doses, First dose on Fri10/16/18 at 0915, Last dose on Fri10/16/18 at 2100, Delivers 241.3mg elemental magnesium per tab, 400 mg Given 10/16/2018 8:27 AM OPERATIONS LABEL CLERK 10/18/2018 9:20 PM OPERATIONS LABEL CLERK 400 mg magnesium oxide (MAG-OX) tablet 400 mg Given 400 mg, Oral, TWICE DAILY, 2 doses, First dose on Fri10/18/18 at 1045, Last dose on Fri10/18/18 at 2100, Delivers 241.3mg elemental magnesium per tab, 400 mg Given 10/18/2018 10:42 AM OPERATIONS LABEL CLERK 10/20/2018 8:29 PM OPERATIONS LABEL CLERK 800 mg magnesium oxide (MAG-OX) tablet 800 mg Given 800 mg, Per NG tube, TWICE DAILY, 2 doses, First dose on Fri10/20/18 at 0900, Last dose on Fri10/20/18 at 2100, Delivers 241.3mg elemental magnesium per tab, 800 mg Given 10/20/2018 9:55 AM OPERATIONS LABEL CLERK 10/15/2018 6:20 AM OPERATIONS LABEL CLERK 1 g 100 mL/hr magnesium sulfate 1 g/D5W 100 mL IVPB Given - New 1 g, Intravenous, 100 mL, Administer Bag over 1 Hours, ONCE, 1 dose, [facility] 10/15/18 at 0630, Each 1gm delivers 8.1 mEq Magnesium., 10/18/2018 10:41 AM OPERATIONS LABEL CLERK 1 g 100 mL/hr magnesium sulfate 1 g/D5W 100 mL IVPB Given - New 1 g, Intravenous, 100 mL, Administer Bag over 1 Hours, ONCE, 1 dose, [place] 10/18/18 at 0945, Each 1gm delivers 8.1 mEq Magnesium., 10/11/2018 10:18 PM OPERATIONS LABEL CLERK 10 mL milk of magnesia (CONC) oral suspension Given 10 mL 10 mL, Oral, AT BEDTIME DAILY, First dose on Fri10/09/18 at 2100, Until Discontinued, 10 mL CONC=30 mL MOM, 10 mL Given 10/10/2018 8:51 PM OPERATIONS LABEL CLERK 10 mL Given 10/09/2018 8:56 PM OPERATIONS LABEL CLERK 10/19/2018 9:01 PM OPERATIONS LABEL CLERK 10 mL milk of magnesia (CONC) oral suspension Given 10 mL 10 mL, Per NG tube, AT BEDTIME DAILY, First dose on Fri10/13/18 at 2100, Until Discontinued, Give daily until first bowel movement, then PRN Constipation PO. 10 mL CONC=30 mL MOM, 10 mL Given 10/13/2018 8:06 PM OPERATIONS LABEL CLERK 10/08/2018 6:40 PM OPERATIONS LABEL CLERK 2 mg morphine injection syringe 1-4 mg Given 1-4 mg, Intravenous, EVERY 2 HOURS PRN, Starting 10/05/18 at 1823, Until Fri10/13/18 at 1610, Pain Injectable, - Use only in case of pain not controlled by oral pain medication or if patient is NPO status., 2 mg Given 10/07/2018 5:22 AM OPERATIONS LABEL CLERK 2 mg Given 10/06/2018 2:52 PM OPERATIONS LABEL CLERK 10/16/2018 5:29 PM OPERATIONS LABEL CLERK 2 mg morphine injection syringe 2 mg Given 2 mg, Intravenous, EVERY 2 HOURS PRN, Starting Fri10/13/18 at 1609, Until [place] 10/22/18 at 1308, Pain Injectable 2 mg Given 10/13/2018 6:38 PM OPERATIONS LABEL CLERK 10/11/2018 10:03 PM OPERATIONS LABEL CLERK 4 mg ondansetron (ZOFRAN) injection 4 mg Given 4 mg, Intravenous, EVERY 6 HOURS PRN, Starting 10/05/18 at 1823, Until Fri10/13/18 at 1610, Nausea/Vomiting Injectable 4 mg Given 10/10/2018 4:44 PM OPERATIONS LABEL CLERK 4 mg Given 10/09/2018 5:47 PM OPERATIONS LABEL CLERK 10/19/2018 3:07 PM OPERATIONS LABEL CLERK 4 mg ondansetron (ZOFRAN) injection 4 mg Given 4 mg, Intravenous, EVERY 6 HOURS PRN, Starting Fri10/13/18 at 1609, Until [place] 10/22/18 at 1308, Nausea/Vomiting Injectable 4 mg Given 10/14/2018 9:14 AM OPERATIONS LABEL CLERK 4 mg Given 10/13/2018 6:38 PM OPERATIONS LABEL CLERK 10/21/2018 8:36 AM OPERATIONS LABEL CLERK 4 mg ondansetron (ZOFRAN) injection 4 mg Given 4 mg, Intravenous, ONCE, 1 dose, Fri10/21/18 at 0815 10/11/2018 7:09 PM OPERATIONS LABEL CLERK 4 mg ondansetron (ZOFRAN) tablet 4 mg Given 4 mg, Oral, EVERY 6 HOURS PRN, Starting 10/10/18 at 0755, Until Fri10/13/18 at 1610, Nausea/Vomiting PO 4 mg Given 10/11/2018 8:26 AM OPERATIONS LABEL CLERK 4 mg Given 10/10/2018 8:46 AM OPERATIONS LABEL CLERK 10/22/2018 10:35 AM OPERATIONS LABEL CLERK 5 mg oxyCODONE (ROXICODONE) oral solution 5 Given mg 5 mg, Per NG tube, EVERY 4 HOURS PRN, Starting Fri10/13/18 at 1609, Until [place] 10/22/18 at 1308, Pain PO 5 mg Given 10/20/2018 9:59 AM OPERATIONS LABEL CLERK 5 mg Given 10/20/2018 6:22 AM OPERATIONS LABEL CLERK 10/12/2018 8:08 PM OPERATIONS LABEL CLERK 5 mg oxyCODONE (ROXICODONE, OXY-IR) tablet 5 Given mg 5 mg, Oral, EVERY 4 HOURS PRN, Starting Fri10/07/18 at 1046, Until Fri10/13/18 at 1610, Pain PO 5 mg Given 10/11/2018 10:01 PM OPERATIONS LABEL CLERK 5 mg Given 10/11/2018 2:00 PM OPERATIONS LABEL CLERK pancrelipase 20,000 Units/ sodium bicarbonate 650 mg(#) (KU CLOG DESTROYER) for occluded feeding tube cap 1 capsule 1 capsule, Feeding Tube, NEEDED (SOCIAL WORKER DELINQUENCY PREVENTION FROM RX), Starting Fri10/15/18 at 0720, Until [place] 10/22/18 at 1308, Other..., Occluded Feeding Tube, 1. Open one KU CLOG DESTROYER CAPSULE (pancrelipase 20,000 units/ sodium bicarbonate 650 mg) and pour contents into mortar cup. 2. Dissolve in 5 - 10 ml sterile water. This will take ~ 1-2 minutes, with stirring required. Some sediment will be present (likely from capsule ingredients). 3. Once dissolved, let solution sit for 1-2 minutes, allowing sediment to fall to bottom of mortar cup. 4. Draw enzyme/bicarbonate solution into oral syringe (avoid sediment as best possible). 5. Instill enzyme solution under light pressure, and use a light "back and forth" motion with plunger to help dislodge the clog. 6. Clamp the tube for 5-15 minutes, and then try to aspirate or flush with warm sterile water. May repeat x 1. Notify physician if tube remains occluded following administration., 10/21/2018 10:00 PM OPERATIONS LABEL CLERK 40 mg pantoprazole(#) (PROTONIX) suspension 40 Given mg 40 mg, Per NG tube, DAILY, First dose on Fri10/14/18 at 0845, Until Discontinued 40 mg Given 10/20/2018 8:32 PM OPERATIONS LABEL CLERK 40 mg Given 10/19/2018 9:02 PM OPERATIONS LABEL CLERK 10/13/2018 5:27 AM OPERATIONS LABEL CLERK 2 sprays phenol (CLORASEPTIC; PHENASEPTIC) spray Given 2 spray 2 spray, Mouth/Throat, NEEDED, Starting Fri10/13/18 at 0221, Until Fri10/13/18 at 1610, Mouth/Throat Pain 10/12/2018 9:14 AM OPERATIONS LABEL CLERK 17 g polyethylene glycol 3350 (MIRALAX) Given packet 17 g 17 g (1 packet), Oral, DAILY, First dose on Fri10/09/18 at 1045, Until Discontinued, 8.5 GRAMS=0.5 PACKET 17 GRAMS=1 PACKET 34 GRAMS=2 PACKETS, 17 g Given 10/11/2018 8:26 AM OPERATIONS LABEL CLERK 17 g Given 10/10/2018 8:47 AM OPERATIONS LABEL CLERK 10/14/2018 9:14 AM OPERATIONS LABEL CLERK 20 mEq potassium chloride oral solution 20 mEq Given 20 mEq, Per NG tube, ONCE, 1 dose, Fri10/14/18 at 0730 10/17/2018 9:01 AM OPERATIONS LABEL CLERK 60 mEq potassium chloride oral solution 60 mEq Given 60 mEq, Per NG tube, ONCE, 1 dose, 10/17/18 at 0845 10/16/2018 8:24 PM OPERATIONS LABEL CLERK 2 tablets potassium phosphate (K-PHOS ORIGINAL) Given dispersable tablet 2 tablet 2 tablet, Oral, THREE TIMES DAILY, 3 doses, First dose on Fri10/16/18 at 0915, Last dose on Fri10/16/18 at 2100, DO NOT SWALLOW TABLET DISSOLVE IN WATER PRIOR TO ADMINISTRATION - The tablets are administered by dissolving two tablets in 6-8 ounces of water. - For best results, soak tablets in water for two to five minutes, or more if necessary, and stir. - If any tablet particles remain undissolved, they may be crushed and stirred vigorously to speed dissolution. Each tablet delivers 114 mg Phosphorus (3.6 mMol) and 3.7 mEq Potassium., 2 tablets Given 10/16/2018 4:09 PM OPERATIONS LABEL CLERK 10/13/2018 8:07 PM OPERATIONS LABEL CLERK 40 mg pravastatin (PRAVACHOL) tablet 40 mg Given 40 mg, Oral, AT BEDTIME DAILY, First dose on Fri10/07/18 at 2100, Until Discontinued 40 mg Given 10/12/2018 8:08 PM OPERATIONS LABEL CLERK 40 mg Given 10/11/2018 10:01 PM OPERATIONS LABEL CLERK 10/21/2018 10:00 PM OPERATIONS LABEL CLERK 40 mg pravastatin (PRAVACHOL) tablet 40 mg Given 40 mg, Per NG tube, AT BEDTIME DAILY, First dose on Fri10/14/18 at 2100, Until Discontinued 40 mg Given 10/20/2018 11:40 PM OPERATIONS LABEL CLERK 40 mg Given 10/19/2018 9:02 PM OPERATIONS LABEL CLERK 10/13/2018 7:32 PM OPERATIONS LABEL CLERK 10 mg prochlorperazine (COMPAZINE) injection Given 5-10 mg 5-10 mg, Intravenous, EVERY 6 HOURS PRN, Starting Fri10/09/18 at 2026, Until Fri10/22/18 at 1308, Nausea/Vomiting Injectable, If zofran ineffective, PROTECT FROM LIGHT -- May be given undiluted, or each 5mg may be diluted with 9 mL of NS to facilitate titration., 5 mg Given 10/09/2018 8:55 PM OPERATIONS LABEL CLERK 10/13/2018 8:07 PM OPERATIONS LABEL CLERK 500 mg QUEtiapine (SEROQUEL) tablet 500 mg Given 500 mg, Oral, AT BEDTIME DAILY, First dose on Fri10/07/18 at 2100, Until Discontinued 500 mg Given 10/12/2018 8:09 PM OPERATIONS LABEL CLERK 500 mg Given 10/11/2018 10:02 PM OPERATIONS LABEL CLERK 10/21/2018 10:00 PM OPERATIONS LABEL CLERK 500 mg QUEtiapine (SEROQUEL) tablet 500 mg Given 500 mg, Per NG tube, AT BEDTIME DAILY, First dose on Fri10/14/18 at 2100, Until Discontinued 500 mg Given 10/20/2018 8:29 PM OPERATIONS LABEL CLERK 500 mg Given 10/19/2018 9:01 PM OPERATIONS LABEL CLERK 10/06/2018 11:47 AM OPERATIONS LABEL CLERK 17.5 millicuries RP DX F-18 FDG injection 15 millicurie Given 15 millicurie, Intravenous, ONCE, 1 dose, Fri10/06/18 at 1230 10/12/2018 9:13 AM OPERATIONS LABEL CLERK 1 tablet senna/docusate (SENOKOT-S) tablet 1 Given tablet 1 tablet, Oral, TWICE DAILY, First dose on 12/10/18 at 2100, Until Discontinued, Hold for loose stools, 1 tablet Given 10/11/2018 10:02 PM OPERATIONS LABEL CLERK 1 tablet Given 10/11/2018 8:26 AM OPERATIONS LABEL CLERK 10/06/2018 2:38 AM OPERATIONS LABEL CLERK 100 mL/hr sodium chloride 0.9 % with KCl 20 Given - New mEq/L infusion Bag 1,000 mL, Intravenous, at 100 mL/hr, CONTINUOUS, Starting Fri10/05/18 at 1630, Until Fri10/06/18 at 1707 100 mL/hr Dose/Rate Verify 10/05/2018 6:38 PM OPERATIONS LABEL CLERK 100 mL/hr Given - New Bag 10/05/2018 4:36 PM OPERATIONS LABEL CLERK 10/14/2018 8:25 PM OPERATIONS LABEL CLERK 100 mL/hr sodium chloride 0.9 % with KCl 20 Given - New mEq/L infusion Bag 1,000 mL, Intravenous, at 100 mL/hr, CONTINUOUS, Starting Fri10/13/18 at 1445, Until [place] 10/15/18 at 0819 100 mL/hr Given - New Bag 10/14/2018 4:23 AM OPERATIONS LABEL CLERK 100 mL/hr Given - New Bag 10/13/2018 3:36 PM OPERATIONS LABEL CLERK 10/21/2018 4:19 AM OPERATIONS LABEL CLERK 1 spray sodium chloride (SEA MIST) 0.65 % nasal Given spray 1-2 spray 1-2 spray, Each Nostril, EVERY 2 HOURS, First dose on Fri10/16/18 at 0800, Until Discontinued, While awake (NGT irritation), 2 sprays Given 10/20/2018 11:41 PM OPERATIONS LABEL CLERK 1 spray Given 10/20/2018 10:00 PM OPERATIONS LABEL CLERK 10/12/2018 10:56 PM OPERATIONS LABEL CLERK 100 mL/hr sodium chloride 0.9 % infusion Given - New 1,000 mL, Intravenous, at 100 mL/hr, Bag CONTINUOUS, Starting Fri10/12/18 at 2300, Until Fri10/13/18 at 1610 10/06/2018 10:15 AM OPERATIONS LABEL CLERK 50 mL sodium chloride PF 0.9% injection 50 mL Given 50 mL, Intravenous, ONCE, 1 dose, Fri10/06/18 at 1015 10/22/2018 7:36 AM OPERATIONS LABEL CLERK 100 mg traMADol (ULTRAM) tablet 50-100 mg Given 50-100 mg, Per NG tube, EVERY 4 HOURS PRN, Starting Fri10/13/18 at 2047, Until [place] 10/22/18 at 1308, Pain PO, 1st line before oxycodone, Can be used INSTEAD OF oxycodone, 50 mg Given 10/21/2018 3:19 PM OPERATIONS LABEL CLERK 100 mg Given 10/20/2018 8:40 PM OPERATIONS LABEL CLERK 10/08/2018 5:39 PM OPERATIONS LABEL CLERK 1 mg varenicline (CHANTIX) tablet 1 mg Given 1 mg, Oral, DAILY WITH BREAKFAST, First dose on [place] 10/08/18 at 1745, Until Discontinued, This medication should be taken after eating., 10/14/2018 9:15 AM OPERATIONS LABEL CLERK 1 mg varenicline (CHANTIX) tablet 1 mg Given 1 mg, Oral, TWICE DAILY WITH MEALS, First dose on Fri10/09/18 at 0800, Until Discontinued, This medication should be taken after eating., 1 mg Given 10/12/2018 6:04 PM OPERATIONS LABEL CLERK 1 mg Given 10/12/2018 12:17 PM OPERATIONS LABEL CLERK 10/22/2018 9:19 AM OPERATIONS LABEL CLERK 37.5 mg venlafaxine (EFFEXOR) tablet 37.5 mg Given 37.5 mg, Per NG tube, TWICE DAILY WITH MEALS, First dose on Fri10/14/18 at 0930, Until Discontinued 37.5 mg Given 10/21/2018 6:06 PM OPERATIONS LABEL CLERK 37.5 mg Given 10/21/2018 8:36 AM OPERATIONS LABEL CLERK 10/12/2018 9:14 AM OPERATIONS LABEL CLERK 75 mg venlafaxine XR (EFFEXOR XR) capsule 75 Given mg 75 mg, Oral, DAILY WITH BREAKFAST, First dose on Fri10/07/18 at 1145, Until Discontinued 75 mg Given 10/11/2018 8:26 AM OPERATIONS LABEL CLERK 75 mg Given 10/10/2018 8:46 AM OPERATIONS LABEL CLERK in this encounter
--- OUTSIDE RECORDS SUMMARY | 2018-11-13 11:33 | XMS REPORT | Encounter Summary ---
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] Procedures [place] TRACHEOSTOMY PLANNED SEPARATE PROCEDURE TRACHEOSTOMY PLANNED Encounter Details Care Team Description Date Type Department Tiffanie Wall CRNA 10/19/2018 Anesthesia Main Operating Room Event [address] [address] Anesthesia Record Responsible Anesthesiologist Anesthesia Start Time Anesthesia Stop Time Procedure Name Fab Grove MD 10/19/18 1052 10/19/18 1222 EXTRACTION TEETH 2,3,4,5,6,8,9,10,11,12,13 ,14,15,18,19,20,21,22,23, ,24,25,26,27,28,29,30,31, (N/A Mouth) Date Time Event Comment 1010 1024 AN Equip Check 1051 Out of Pre Procedure 1052 Anes Start 1053 In Room 1057 An Start Data 1100 An Induction The patient was reevaluated immediately before moderate or deep sedation use and before anesthesia induction. 1101 An Intubation 1103 Anesthesia Ready 1120 Proc Start 1215 An Extubation 1218 an stop data 1221 Handoff to RN I completed my SBAR handoff to the receiving nurse. 1222 An Stop Meds Name Total midazolam (VERSED) 1 mg/mL injection 2 mg fentaNYL PF (SUBLIMAZE) injection 100 mcg lidocaine (2%) 200 mg/10mL Injection 100 mg syringe propofol (DIPRIVAN) 200 mg/ 20 mL 120 mg injection (VIAL) ondansetron (ZOFRAN) injection 4 mg dexamethasone (DECADRON) 4 mg/mL 4 mg injection phenylephrine (MATHEUS-SYNEPHRINE) 0.1 mg/mL 550 mcg injection (SYRINGE) dextran 70/hypromellose (GENTEAL TEARS; 2 drop BION TEARS) ophthalmic solution lactated ringers infusion (1000 mL bag) 400 mL * Name O2 N2O Inspired N2O Sevoflurane Inspired Sevoflurane * No blood administrations on file. Removal Type Details Placement NG/OG Tube 10/13/18; 1226; Nose; 10 FR; Yes 10/13/18 1226 by Lyle Kern RN Wounds 10/13/18; 1429; Chin to Neck to Chest; 10/13/18 1429 by Erlin, (NOT for Surgical Incision; SUTURES, BACITRACIN GUCCI [place]ga Pressure OINTMENT Injuries) 10/19/18 1215 by Tiffanie Wall CRNA Laryngecto 10/13/18; 1840; Other (Comment); 10/13/18 1840 by ana 10/19/18; 1215 Mansi Betancur, RT 10/19/18 1049 by George Avalos RN Peripheral 10/16/18; 1030; IV Therapy; L; Anterior; 10/16/18 1030 by ANJALI Avalos Forearm; 20 G; No; Ultrasound; 1; 1.75 GUCCI Vazquez inches; Symptomatic (phlebitis, pain, leaking, infiltration); 10/19/18; 1049 10/22/18 1020 by Kathy Ladd RN Peripheral 10/19/18; 1050; IV Therapy; R; Anterior; 10/19/18 1050 by ANJALI Avalos Forearm; 20 G; No; Ultrasound; 1; 1.75 GUCCI Vazquez inches; Therapy completed; 10/22/18; 1020 10/19/18 1215 by Tiffanie Wall CRNA ETT 10/19/18; 1101; Single-Lumen; 6mm; 1 10/19/18 1101 by insertion attempt; Auscultation, ETCO2 Tiffanie Wall CRNA Detector; 6.0 ETT placed through stoma by , atraumatic, ; 10/19/18; 1215 in this encounter Social History Date Tobacco Use Types Packs/Day [...] Visit Diagnoses Not on filein this encounter Administered Medications Action Date Dose Rate Site Medication Order MAR Action 10/19/2018 11:35 AM ORDNANCE TRUCK INSTALLATION SUPERVISOR 4 mg dexamethasone (DECADRON) injection Given Intravenous, INTRA-PROCEDURE MED, Starting Fri10/19/18 at 1135, Until Fri10/19/18 at 1229, Anesthesia Intra-op 10/19/2018 11:02 AM [employer]DNANCE TR[employer] INSTALLATION SUPERVISOR 2 drops dextran 70/hypromellose (GENTEAL TEARS; Given BION TEARS) ophthalmic solution INTRA-PROCEDURE MED, Starting Fri10/19/18 at 1102, Until Fri10/19/18 at 1229, Anesthesia Intra-op 10/19/2018 11:29 AM [employer]DNANCE TR[employer] INSTALLATION SUPERVISOR 25 mcg fentaNYL citrate PF (SUBLIMAZE) Given injection INTRA-PROCEDURE MED, Starting Fri10/19/18 at 1055, Until Fri10/19/18 at 1229, Anesthesia Intra-op 25 mcg Given 10/19/2018 11:20 AM [employer]NCE TR[employer] INSTALLATION SUPERVISOR 50 mcg Given 10/19/2018 10:55 AM ORDNANCE TRUCK INSTALLATION SUPERVISOR 10/19/2018 10:24 AM [employer]NCE TR[employer] INSTALLATION SUPERVISOR lactated ringers infusion Given - New INTRA-PROCEDURE MED(CONT), Starting Fri10/19/18 at 1024, Until Fri10/19/18 at 1229, Anesthesia Intra-op 10/19/2018 10:55 AM [employer]NCE [employer] INSTALLATION SUPERVISOR 100 mg lidocaine (PF) injection Given INTRA-PROCEDURE MED, Starting Fri10/19/18 at 1055, Until Fri10/19/18 at 1229, Anesthesia Intra-op 10/19/2018 10:45 AM [employer]NCE [employer] INSTALLATION SUPERVISOR 2 mg midazolam (VERSED) injection Given Intravenous, INTRA-PROCEDURE MED, Starting Fri10/19/18 at 1045, Until Fri10/19/18 at 1229, Anesthesia Intra-op 10/19/2018 11:56 AM [employer]NCE [employer] INSTALLATION SUPERVISOR 4 mg ondansetron (ZOFRAN) injection Given Intravenous, INTRA-PROCEDURE MED, Starting Fri10/19/18 at 1156, Until Fri10/19/18 at 1229, Anesthesia Intra-op 10/19/2018 12:05 PM [employer]NCE [employer] INSTALLATION SUPERVISOR 100 mcg phenylephrine in NS injection syringe Given Intravenous, INTRA-PROCEDURE MED, Starting Fri10/19/18 at 1110, Until Fri10/19/18 at 1229, Anesthesia Intra-op 200 mcg Given 10/19/2018 11:15 AM [employer]NCE [employer] INSTALLATION SUPERVISOR 150 mcg Given 10/19/2018 11:14 AM [employer]DNANCE TRUCK INSTALLATION SUPERVISOR 10/19/2018 10:55 AM [employer]NCE TR[employer] INSTALLATION SUPERVISOR 120 mg propofol (DIPRIVAN) injection Given INTRA-PROCEDURE MED, Starting Fri10/19/18 at 1055, Until Fri10/19/18 at 1229, Anesthesia Intra-op in this encounter
--- OUTSIDE RECORDS SUMMARY | 2018-11-13 11:34 | XMS REPORT | Encounter Summary ---
Author Author [facility] Organization [facility] Address Unknown Phone Unavailable Care Team Providers Care Endoscopy Support Specialist Name Role Phone Kelly Olivier RN Unavailable Unavailable Chris Ohara MD PCP Encounter Details Care Team Description Date Type Department Mely Norris DDS [address] [facility] [address] [place] [address] [phone] 10/16/2018 Prep for Case ADMITTING [address] [facility] [place] [address] Social History Date Tobacco Use Types Packs/Day [...]
--- OUTSIDE RECORDS SUMMARY | 2018-11-13 11:34 | XMS REPORT | Encounter Summary ---
Author Author [facility] Organization [facility] Address Unknown Phone Unavailable Care Team Providers Care Territory Development Manager Name Role Phone Kelly Olivier RN Unavailable Unavailable Chris Ohara MD PCP Encounter Details Care Team Description Date Type Department Mely Norris DDS [address] [facility] [address] [place] [address] [phone] 10/16/2018 Prep for Case ADMITTING [address] [facility] [place] [address] Social History Date Tobacco Use Types Packs/Day [...]
--- OUTSIDE RECORDS SUMMARY | 2018-11-13 11:34 | XMS REPORT | Encounter Summary ---
Author Author [facility] Organization [facility] Address Unknown Phone Unavailable Care Team Providers Care Transmission Systems Operator Name Role Phone Kelly Olivier RN Unavailable Unavailable Chris Ohara MD PCP Encounter Details Care Team Description Date Type Department Mely Norris DDS [address] [facility] [address] [place], [place] [id number] 10/16/2018 Prep for Case [facility] [address] [place] [address] Social History Date Tobacco Use Types Packs/Day [...]
--- OUTSIDE RECORDS SUMMARY | 2018-11-13 11:34 | XMS REPORT | Encounter Summary ---
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] Procedures OK TRACHEOSTOMY PLANNED SEPARATE PROCEDURE TRACHEOSTOMY PLANNED Encounter Details Care Team Description Date Type Department Mely Norris, KINZA [address] [facility] [address] [place] [address] EXTRACTION TEETH 2,3,4,5,6,8,9,10,11,12,13,14,15,18,19,20,21 ,22,23,,24,25,26,27,28,29,30,31, 10/19/2018 Surgery Main Operating Room [address] [id number] Social History Date Tobacco Use Types Packs/Day [...] Taken Vital Sign Reading 10/22/2018 6:30 AM SPORTS PHYSIOLOGIST Blood Pressure 90/49 10/22/2018 6:27 AM SPORTS PHYSIOLOGIST Pulse 89 10/22/2018 5:50 AM SPORTS PHYSIOLOGIST Temperature 36.8 C (98.2 F) - Respiratory Rate - 10/22/2018 6:44 AM SPORTS PHYSIOLOGIST Oxygen Saturation 95% - Inhaled Oxygen - Concentration 10/08/2018 11:15 AM SPORTS PHYSIOLOGIST Weight 76.2 kg (168 lb) 10/08/2018 11:15 AM SPORTS PHYSIOLOGIST Height 170.2 cm (5' 7") 10/08/2018 11:15 AM SPORTS PHYSIOLOGIST Body Mass Index 26.31 in this encounter [...] hours as needed. as of this encounter Plan of Treatment [...] Associated Diagnosis CBC Routine 10/22/2018 5:40 AM SPORTS PHYSIOLOGIST IONIZED CALCIUM Routine 10/22/2018 5:40 AM SPORTS PHYSIOLOGIST CALCIUM Routine 10/22/2018 5:40 AM SPORTS PHYSIOLOGIST PARATHYROID HORMONE Routine 10/21/2018 10:22 AM SPORTS PHYSIOLOGIST PHOSPHORUS Routine 10/21/2018 10:22 AM SPORTS PHYSIOLOGIST MAGNESIUM Routine 10/21/2018 10:22 AM SPORTS PHYSIOLOGIST IONIZED CALCIUM Routine 10/21/2018 10:22 AM SPORTS PHYSIOLOGIST BASIC METABOLIC PANEL Routine 10/21/2018 10:22 AM SPORTS PHYSIOLOGIST ESOPHAGRAM Routine 10/21/2018 9:21 AM SPORTS PHYSIOLOGIST IONIZED CALCIUM STAT 10/20/2018 8:23 AM SPORTS PHYSIOLOGIST CONSULT IV THERAPY TEAM Routine 10/20/2018 7:38 AM SPORTS PHYSIOLOGIST CBC Routine 10/20/2018 6:16 AM SPORTS PHYSIOLOGIST PHOSPHORUS Routine 10/20/2018 6:16 AM SPORTS PHYSIOLOGIST MAGNESIUM Routine 10/20/2018 6:16 AM SPORTS PHYSIOLOGIST BASIC METABOLIC PANEL Routine 10/20/2018 6:16 AM SPORTS PHYSIOLOGIST CONSULT IV THERAPY TEAM Routine 10/19/2018 10:17 AM SPORTS PHYSIOLOGIST EXTRACTION TOOTH 10/19/2018 10:08 AM SPORTS PHYSIOLOGIST CBC Routine 10/19/2018 6:18 AM SPORTS PHYSIOLOGIST PHOSPHORUS Routine 10/19/2018 6:18 AM SPORTS PHYSIOLOGIST MAGNESIUM Routine 10/19/2018 6:18 AM SPORTS PHYSIOLOGIST IONIZED CALCIUM STAT 10/19/2018 6:18 AM SPORTS PHYSIOLOGIST BASIC METABOLIC PANEL Routine 10/19/2018 6:18 AM SPORTS PHYSIOLOGIST IONIZED CALCIUM STAT 10/18/2018 6:00 PM SPORTS PHYSIOLOGIST CALCIUM STAT 10/18/2018 6:00 PM SPORTS PHYSIOLOGIST CBC Routine 10/18/2018 6:10 AM SPORTS PHYSIOLOGIST PHOSPHORUS Routine 10/18/2018 6:10 AM SPORTS PHYSIOLOGIST MAGNESIUM Routine 10/18/2018 6:10 AM SPORTS PHYSIOLOGIST IONIZED CALCIUM STAT 10/18/2018 6:10 AM SPORTS PHYSIOLOGIST BASIC METABOLIC PANEL Routine 10/18/2018 6:10 AM SPORTS PHYSIOLOGIST IONIZED CALCIUM STAT 10/17/2018 10:20 PM SPORTS PHYSIOLOGIST CALCIUM STAT 10/17/2018 10:20 PM SPORTS PHYSIOLOGIST IONIZED CALCIUM STAT 10/17/2018 6:00 PM SPORTS PHYSIOLOGIST CALCIUM STAT 10/17/2018 6:00 PM SPORTS PHYSIOLOGIST PARATHYROID HORMONE Add on 10/17/2018 6:01 AM SPORTS PHYSIOLOGIST CBC Routine 10/17/2018 6:01 AM SPORTS PHYSIOLOGIST PHOSPHORUS Routine 10/17/2018 6:01 AM SPORTS PHYSIOLOGIST MAGNESIUM Routine 10/17/2018 6:01 AM SPORTS PHYSIOLOGIST ALBUMIN Routine 10/17/2018 6:01 AM SPORTS PHYSIOLOGIST BASIC METABOLIC PANEL Routine 10/17/2018 6:01 AM SPORTS PHYSIOLOGIST CALCIUM STAT 10/17/2018 6:00 AM SPORTS PHYSIOLOGIST IONIZED CALCIUM STAT 10/17/2018 5:59 AM SPORTS PHYSIOLOGIST IONIZED CALCIUM STAT 10/16/2018 10:00 PM SPORTS PHYSIOLOGIST CALCIUM STAT 10/16/2018 10:00 PM SPORTS PHYSIOLOGIST IONIZED CALCIUM STAT 10/16/2018 2:18 PM SPORTS PHYSIOLOGIST CALCIUM STAT 10/16/2018 2:18 PM SPORTS PHYSIOLOGIST PANOREX EXAM Routine 10/16/2018 11:25 AM SPORTS PHYSIOLOGIST CONSULT IV THERAPY TEAM Routine 10/16/2018 8:56 AM SPORTS PHYSIOLOGIST CBC Routine 10/16/2018 6:07 AM SPORTS PHYSIOLOGIST PHOSPHORUS Routine 10/16/2018 6:07 AM SPORTS PHYSIOLOGIST MAGNESIUM Routine 10/16/2018 6:07 AM SPORTS PHYSIOLOGIST IONIZED CALCIUM Add on 10/16/2018 6:07 AM SPORTS PHYSIOLOGIST BASIC METABOLIC PANEL Routine 10/16/2018 6:07 AM SPORTS PHYSIOLOGIST 25-OH VITAMIN D (D2 + D3) Specimen 10/15/2018 in Lab 8:24 PM SPORTS PHYSIOLOGIST IONIZED CALCIUM STAT 10/15/2018 8:24 PM SPORTS PHYSIOLOGIST CALCIUM STAT 10/15/2018 8:24 PM SPORTS PHYSIOLOGIST CONSULT IV THERAPY TEAM Routine 10/15/2018 7:35 PM SPORTS PHYSIOLOGIST IONIZED CALCIUM STAT 10/15/2018 11:08 AM SPORTS PHYSIOLOGIST CALCIUM Routine 10/15/2018 11:08 AM SPORTS PHYSIOLOGIST PARATHYROID HORMONE Add on 10/15/2018 3:15 AM SPORTS PHYSIOLOGIST CBC Routine 10/15/2018 3:15 AM SPORTS PHYSIOLOGIST PHOSPHORUS Routine 10/15/2018 3:15 AM SPORTS PHYSIOLOGIST MAGNESIUM Routine 10/15/2018 3:15 AM SPORTS PHYSIOLOGIST IONIZED CALCIUM Routine 10/15/2018 3:15 AM SPORTS PHYSIOLOGIST BASIC METABOLIC PANEL Routine 10/15/2018 3:15 AM SPORTS PHYSIOLOGIST CALCIUM Specimen 10/14/2018 in Lab 10:53 PM SPORTS PHYSIOLOGIST IONIZED CALCIUM 10/14/2018 10:45 PM SPORTS PHYSIOLOGIST CONSULT IV THERAPY TEAM Routine 10/14/2018 10:32 PM SPORTS PHYSIOLOGIST IONIZED CALCIUM STAT 10/14/2018 6:15 PM SPORTS PHYSIOLOGIST CALCIUM Routine 10/14/2018 6:15 PM SPORTS PHYSIOLOGIST CALCIUM Routine 10/14/2018 3:38 PM SPORTS PHYSIOLOGIST IONIZED CALCIUM STAT 10/14/2018 10:30 AM SPORTS PHYSIOLOGIST CALCIUM STAT 10/14/2018 10:30 AM SPORTS PHYSIOLOGIST IONIZED CALCIUM STAT 10/14/2018 7:20 AM SPORTS PHYSIOLOGIST CONSULT IV THERAPY TEAM Routine 10/14/2018 6:34 AM SPORTS PHYSIOLOGIST CBC Routine 10/14/2018 5:47 AM SPORTS PHYSIOLOGIST PHOSPHORUS Routine 10/14/2018 5:47 AM SPORTS PHYSIOLOGIST MAGNESIUM Routine 10/14/2018 5:47 AM SPORTS PHYSIOLOGIST BASIC METABOLIC PANEL Routine 10/14/2018 5:47 AM SPORTS PHYSIOLOGIST IONIZED CALCIUM STAT 10/13/2018 11:30 PM SPORTS PHYSIOLOGIST CALCIUM Routine 10/13/2018 11:30 PM SPORTS PHYSIOLOGIST CONSULT IV THERAPY TEAM Routine 10/13/2018 10:57 PM SPORTS PHYSIOLOGIST ABDOMEN AP ONLY Routine 10/13/2018 3:15 PM SPORTS PHYSIOLOGIST PARATHYROID HORMONE STAT 10/13/2018 3:00 PM SPORTS PHYSIOLOGIST IONIZED CALCIUM STAT 10/13/2018 3:00 PM SPORTS PHYSIOLOGIST CALCIUM Routine 10/13/2018 3:00 PM SPORTS PHYSIOLOGIST SURGICAL PATHOLOGY 10/13/2018 12:12 PM SPORTS PHYSIOLOGIST BLOOD TYPE CONFIRMATION - STAT 10/13/2018 ORDER ONLY IF REQUESTED 8:35 AM SPORTS PHYSIOLOGIST BY LAB TYPE & CROSSMATCH STAT 10/13/2018 8:30 AM SPORTS PHYSIOLOGIST CONSULT IV THERAPY TEAM Routine 10/10/2018 8:14 AM SPORTS PHYSIOLOGIST 2-D + DOPPLER Routine 10/08/2018 ECHOCARDIOGRAM 11:14 AM SPORTS PHYSIOLOGIST ECG 12-LEAD Routine 10/07/2018 4:29 PM SPORTS PHYSIOLOGIST SWALLOW MOTION SERIES Routine 10/07/2018 8:48 AM SPORTS PHYSIOLOGIST NM PET SCAN TORSO Routine 10/06/2018 (SKULL-THIGHS) 1:[address] CHEST W CONTRAST Routine 10/06/2018 10:[address] NECK W/CONTRAST Routine 10/06/2018 10:14 AM SPORTS PHYSIOLOGIST POC GLUCOSE 10/06/2018 9:43 AM SPORTS PHYSIOLOGIST THYROID STIMULATING Routine 10/06/2018 HORMONE-TSH 8:45 AM SPORTS PHYSIOLOGIST PREALBUMIN Routine 10/06/2018 8:45 AM SPORTS PHYSIOLOGIST PHOSPHORUS Add on 10/06/2018 8:45 AM SPORTS PHYSIOLOGIST MAGNESIUM Add on 10/06/2018 8:45 AM SPORTS PHYSIOLOGIST ALBUMIN Routine 10/06/2018 8:45 AM SPORTS PHYSIOLOGIST BASIC METABOLIC PANEL Add on 10/06/2018 8:45 AM SPORTS PHYSIOLOGIST CBC STAT 10/05/2018 4:41 PM SPORTS PHYSIOLOGIST BASIC METABOLIC PANEL STAT 10/05/2018 4:41 PM SPORTS PHYSIOLOGIST SURGICAL PATHOLOGY 10/05/2018 4:02 PM SPORTS PHYSIOLOGIST CONSULT IV THERAPY TEAM Routine 10/05/2018 2:08 PM SPORTS PHYSIOLOGIST TELEMETRY STRIPS-SCAN 10/05/2018 12:00 AM SPORTS PHYSIOLOGIST ECG-SCAN 10/05/2018 12:00 AM SPORTS PHYSIOLOGIST EXERCISE OXIMETRY-SCAN 10/05/2018 12:00 AM SPORTS PHYSIOLOGIST in this encounter Results * IONIZED CALCIUM (10/22/2018 5:40 AM SPORTS PHYSIOLOGIST) Ionized Calcium 1.13 1.0 - 1.3 MMOL/L [facility] Specimen Blood Performing Organization Address [facility] Phone Number [facility] [address] [place] [address] * CALCIUM (10/22/2018 5:40 AM SPORTS PHYSIOLOGIST) Calcium 9.1 8.5 - 10.6 MG/DL [facility] Specimen Blood Performing Organization Address [facility] Phone Number [facility] [address] [place] [address] * CBC (10/22/2018 5:40 AM SPORTS PHYSIOLOGIST) White Blood Cells 5.7 4.5 - 11.0 [...] MAIN LAB Specimen Blood Performing Organization Address [facility] Phone Number MAIN LAB [address] [place] [address] * IONIZED CALCIUM (10/21/2018 10:22 AM SPORTS PHYSIOLOGIST) Ionized Calcium 1.14 1.0 - 1.3 MMOL/L MAIN LAB Specimen Blood Performing Organization Address [place] Phone Number [facility] [address] [place] [address] * PARATHYROID HORMONE (10/21/2018 10:22 AM SPORTS PHYSIOLOGIST) PTH Hormone 11.3 10 - 65 PG/ML MAIN LAB Specimen Blood Performing Organization Address [facility] Phone Number [facility] [address] [place] [address] * PHOSPHORUS (10/21/2018 10:22 AM SPORTS PHYSIOLOGIST) Phosphorus 5.4 (H)Comment: NOTE NEW 2.0 - 4.5 MG/DL MAIN LAB REFERENCE RANGES Specimen Blood Performing Organization Address [facility] Phone Number [facility] [address] [place] [address] * MAGNESIUM (10/21/2018 10:22 AM SPORTS PHYSIOLOGIST) Magnesium 2.1 1.6 - 2.6 mg/dL MAIN LAB Specimen Blood Performing Organization Address [facility] Phone Number [facility] [address] [place] [address] * BASIC METABOLIC PANEL (10/21/2018 10:22 AM SPORTS PHYSIOLOGIST) Sodium 138 137 - 147 MMOL/L MAIN LAB Potassium 3.7 3.5 - 5.1 MMOL/L [facility] Chloride 98 98 - 110 MMOL/L MAIN LAB CO2 29 21 - 30 MMOL/L [facility] Anion Gap 11 3 - 12 MAIN LAB Glucose 142 (H) 70 - 100 MG/DL MAIN LAB Blood Urea Nitrogen 32 (H) [...] for questions. Specimen Blood Performing Organization Address City/State/Zipcode Phone Number MAIN LAB [address] [place] [address] * ESOPHAGRAM (10/21/2018 9:21 AM SPORTS PHYSIOLOGIST) Impressions Performed At Small linear collection of [...] Interface, Radiant Results - 10/21/2018 11:55 AM SPORTS PHYSIOLOGIST ESOPHAGRAM CLINICAL HISTORY: 58-year-old female, status post [...] on 10/21/2018 9:36 AM. Performing Organization Address City/State/Zipcode Phone Number [facility] RAD RESULTS * IONIZED CALCIUM (10/20/2018 8:23 AM SPORTS PHYSIOLOGIST) Ionized Calcium 1.12 1.0 - 1.3 MMOL/L MAIN LAB Specimen Blood Performing Organization Address [facility] Phone Number [facility] [address] [place] [address] * CBC (10/20/2018 6:16 AM SPORTS PHYSIOLOGIST) White Blood Cells 7.7 4.5 - 11.0 K/UL [facility] RBC 3.35 (L) 4.0 - 5.0 M/UL [facility] Hemoglobin 10.7 (L) 12.0 - 15.0 GM/DL [facility] Hematocrit 31.7 (L) 36 - 45 % [facility] MCV 94.9 80 - 100 FL [facility] MCH 32.1 26 - 34 PG [facility] MCHC 33.8 32.0 - 36.0 G/DL [facility] RDW 13.0 11 - 15 % [facility] Platelet Count 424 (H) 150 - 400 K/UL [facility] MPV 7.7 7 - 11 FL [facility] Specimen Blood Performing Organization Address [facility] Phone Number [facility] [address] [place] [address] * PHOSPHORUS (10/20/2018 6:16 AM SPORTS PHYSIOLOGIST) Phosphorus 4.9 (H)Comment: NOTE NEW 2.0 - 4.5 MG/DL [facility] REFERENCE RANGES Specimen Blood Performing Organization Address [facility] Phone Number MA[facility] [address] [place] [address] * MAGNESIUM (10/20/2018 6:16 AM SPORTS PHYSIOLOGIST) Magnesium 2.3 1.6 - 2.6 mg/dL MAIN LAB Specimen Blood Performing Organization Address [facility] Phone Number MA[facility] [address] [place] [address] * BASIC METABOLIC PANEL (10/20/2018 6:16 AM SPORTS PHYSIOLOGIST) Sodium 137 137 - 147 MMOL/L [facility] [...] for questions. Specimen Blood Performing Organization Address [facility] Phone Number [facility] [address] [place] [address] * CBC (10/19/2018 6:18 AM SPORTS PHYSIOLOGIST) White Blood Cells 7.4 4.5 - 11.0 K/UL [facility] RBC 3.46 (L) 4.0 - 5.0 M/UL [facility] Hemoglobin 11.3 (L) 12.0 - 15.0 GM/DL [facility] Hematocrit 32.8 (L) 36 - 45 % [facility] MCV 94.7 80 - 100 FL [facility] MCH 32.7 26 - 34 PG [facility] MCHC 34.5 32.0 - 36.0 G/DL MAIN LAB RDW 12.8 11 - 15 % [facility] Platelet Count 370 150 - 400 K/UL [facility] MPV 7.5 7 - 11 FL [facility] Specimen Blood Performing Organization Address [facility] Phone Number [facility] [address] [place] [address] * PHOSPHORUS (10/19/2018 6:18 AM SPORTS PHYSIOLOGIST) Phosphorus 5.3 (H)Comment: NOTE NEW 2.0 - 4.5 MG/DL [facility] REFERENCE RANGES Specimen Blood Performing Organization Address [facility] Phone Number [facility] [address] [place] [address] * MAGNESIUM (10/19/2018 6:18 AM SPORTS PHYSIOLOGIST) Magnesium 2.0 1.6 - 2.6 mg/dL [facility] Specimen Blood Performing Organization Address [facility] Phone Number MA[facility] [address] [place] [address] * BASIC METABOLIC PANEL (10/19/2018 6:18 AM SPORTS PHYSIOLOGIST) Sodium 137 137 - 147 MMOL/L [facility] Potassium 4.2 3.5 - 5.1 [...] LAB Creatinine 0.81 0.4 - 1.00 MG/DL [facility] [...] for questions. Specimen Blood Performing Organization Address City/[facility]/Zipcode Phone Number MAIN LAB [address] [place] [address] * IONIZED CALCIUM (10/19/2018 6:18 AM SPORTS PHYSIOLOGIST) Ionized Calcium 1.02 1.0 - 1.3 MMOL/L [facility] Specimen Blood Performing Organization Address City/[facility]/Zipcode Phone Number MAIN LAB [address] [place] [address] * IONIZED CALCIUM (10/18/2018 6:00 PM SPORTS PHYSIOLOGIST) Ionized Calcium 1.08 1.0 - 1.3 MMOL/L [facility] Specimen Blood Performing Organization Address City/[facility]/Zipcode Phone Number MAIN LAB [address] [place] [address] * CALCIUM (10/18/2018 6:00 PM SPORTS PHYSIOLOGIST) Calcium 9.2 8.5 - 10.6 MG/DL [facility] Specimen Blood Performing Organization Address City/[facility]/Zipcode Phone Number MAIN LAB [address] [place] [address] * IONIZED CALCIUM (10/18/2018 6:10 AM SPORTS PHYSIOLOGIST) Ionized Calcium 1.12 1.0 - 1.3 MMOL/L [facility] Specimen Blood Performing Organization Address [facility] Phone Number [facility] [address] [place] [address] * PHOSPHORUS (10/18/2018 6:10 AM SPORTS PHYSIOLOGIST) Phosphorus 4.8 (H)Comment: NOTE NEW 2.0 - 4.5 MG/DL [facility] REFERENCE RANGES Specimen Blood Performing Organization Address [facility] Phone Number [facility] [address] [place] [address] * MAGNESIUM (10/18/2018 6:10 AM SPORTS PHYSIOLOGIST) Magnesium 1.8 1.6 - 2.6 mg/dL [facility] Specimen Blood Performing Organization Address [facility] Phone Number [facility] [address] [place] [address] * BASIC METABOLIC PANEL (10/18/2018 6:10 AM SPORTS PHYSIOLOGIST) Sodium 136 (L) 137 - 147 MMOL/L [facility] Potassium 3.8 3.5 - 5.1 MMOL/L [facility] Chloride 101 98 - 110 MMOL/L [facility] CO2 26 21 - 30 MMOL/L [facility] Anion Gap 9 3 - 12 [facility] Glucose 128 (H) 70 - 100 MG/DL [facility] Blood Urea Nitrogen 17 7 [...] for questions. Specimen Blood Performing Organization Address [facility] Phone Number [facility] [address] [place] [address] * CBC (10/18/2018 6:10 AM SPORTS PHYSIOLOGIST) White Blood Cells 7.8 4.5 - 11.0 [...] MAIN LAB Specimen Blood Performing Organization Address [facility] Phone Number [facility] [address] [place] [address] * IONIZED CALCIUM (10/17/2018 10:20 PM SPORTS PHYSIOLOGIST) Ionized Calcium 1.10 1.0 - 1.3 MMOL/L MAIN LAB Specimen Blood Performing Organization Address [facility] Phone Number [facility] [address] [place] [address] * CALCIUM (10/17/2018 10:20 PM SPORTS PHYSIOLOGIST) Calcium 8.8 8.5 - 10.6 MG/DL MAIN LAB Specimen Blood Performing Organization Address [facility] Phone Number [facility] [address] [place] [address] * IONIZED CALCIUM (10/17/2018 6:00 PM SPORTS PHYSIOLOGIST) Ionized Calcium 1.15 1.0 - 1.3 MMOL/L MAIN LAB Specimen Blood Performing Organization Address [facility] Phone Number [facility] [address] [place] [address] * CALCIUM (10/17/2018 6:00 PM SPORTS PHYSIOLOGIST) Calcium 9.1 8.5 - 10.6 MG/DL MAIN LAB Specimen Blood Performing Organization Address [facility] Phone Number [facility] [address] [place] [address] * PARATHYROID HORMONE (10/17/2018 6:01 AM SPORTS PHYSIOLOGIST) PTH Hormone 8.1 (L) 10 - 65 PG/ML [facility] Performing Organization Address [facility]/Zipcode Phone Number [facility] [address] [place] [address] * ALBUMIN (10/17/2018 6:01 AM SPORTS PHYSIOLOGIST) Albumin 3.6 3.5 - 5.0 G/DL [facility] Specimen Blood Performing Organization Address [facility] Phone Number [facility] [address] [place] [phone] * PHOSPHORUS (10/17/2018 6:01 AM SPORTS PHYSIOLOGIST) Phosphorus 4.7 (H)Comment: NOTE NEW 2.0 - 4.5 MG/DL [facility] REFERENCE RANGES Specimen Blood Performing Organization Address [facility] Phone Number [facility] [address] [place] [phone] * MAGNESIUM (10/17/2018 6:01 AM SPORTS PHYSIOLOGIST) Magnesium 2.0 1.6 - 2.6 mg/dL [facility] Specimen Blood Performing Organization Address [facility] Phone Number [facility] [address] [place] [phone] * BASIC METABOLIC PANEL (10/17/2018 6:01 AM SPORTS PHYSIOLOGIST) Sodium 137 137 - 147 MMOL/L [facility] [...] for questions. Specimen Blood Performing Organization Address City/[facility]/Zipcode Phone Number [facility] [address] [place] [phone] * CBC (10/17/2018 6:01 AM SPORTS PHYSIOLOGIST) White Blood Cells 9.3 4.5 - 11.0 K/UL MAIN LAB RBC 3.53 (L) 4.0 - 5.0 M/UL [facility] MAIN [...] MAIN LAB Specimen Blood Performing Organization Address [facility] Phone Number [facility] [address] [place] [address] * CALCIUM (10/17/2018 6:00 AM SPORTS PHYSIOLOGIST) Calcium 8.3 (L) 8.5 - 10.6 MG/DL MAIN LAB Specimen Blood Performing Organization Address [facility] Phone Number [facility] [address] [place] [address] * IONIZED CALCIUM (10/17/2018 5:59 AM SPORTS PHYSIOLOGIST) Ionized Calcium 1.05 1.0 - 1.3 MMOL/L MAIN LAB Specimen Blood Performing Organization Address [facility] Phone Number [facility] [address] [place] [address] * IONIZED CALCIUM (10/16/2018 10:00 PM SPORTS PHYSIOLOGIST) Ionized Calcium 1.00 1.0 - 1.3 MMOL/L MAIN LAB Specimen Blood Performing Organization Address City/[facility]/Zipcode Phone Number MAIN LAB [address] [place] [address] * CALCIUM (10/16/2018 10:00 PM SPORTS PHYSIOLOGIST) Calcium 7.7 (L) 8.5 - 10.6 MG/DL MAIN LAB Specimen Blood Performing Organization Address City/[facility]/Zipcode Phone Number MAIN LAB [address] [place] [address] * CALCIUM (10/16/2018 2:18 PM SPORTS PHYSIOLOGIST) Calcium 8.4 (L) 8.5 - 10.6 MG/DL MAIN LAB Specimen Blood Performing Organization Address [facility] Phone Number [facility] [address] [place] [address] * IONIZED CALCIUM (10/16/2018 2:18 PM SPORTS PHYSIOLOGIST) Ionized Calcium 1.02 1.0 - 1.3 MMOL/L MAIN LAB Specimen Blood Performing Organization Address [facility] Phone Number [facility] [address] [place] [address] * PANOREX EXAM (10/16/2018 11:25 AM SPORTS PHYSIOLOGIST) Impressions Performed At Findings/Impression: [facility] RESULTS [...] Interface, Radiant Results - 10/16/2018 11:49 AM SPORTS PHYSIOLOGIST PANOREX EXAM Clinical Indication: pre-radiation evaluation. Comparison: [...] on 10/16/2018 11:43 AM. Performing Organization Address [facility] Phone Number RAD RESULTS * IONIZED CALCIUM (10/16/2018 6:07 AM SPORTS PHYSIOLOGIST) Ionized Calcium 1.03 1.0 - 1.3 MMOL/L [facility] Performing Organization Address [facility] Phone Number [facility] [address] [place] [address] * PHOSPHORUS (10/16/2018 6:07 AM SPORTS PHYSIOLOGIST) Phosphorus 2.7Comment: NOTE NEW REFERENCE 2.0 - 4.5 MG/DL [facility] RANGES Specimen Blood Performing Organization Address [facility] Phone Number [facility] [address] [place] [address] * MAGNESIUM (10/16/2018 6:07 AM SPORTS PHYSIOLOGIST) Magnesium 1.8 1.6 - 2.6 mg/dL [facility] Specimen Blood Performing Organization Address [facility] Phone Number [facility] [address] [place] [address] * BASIC METABOLIC PANEL (10/16/2018 6:07 AM SPORTS PHYSIOLOGIST) Sodium 139 137 - 147 MMOL/L [facility] [...] for questions. Specimen Blood Performing Organization Address [facility] Phone Number [facility] [address] [place] [address] * CBC (10/16/2018 6:07 AM SPORTS PHYSIOLOGIST) White Blood Cells 8.2 4.5 - 11.0 [...] LAB MPV 7.3 7 - 11 FL MAIN LAB Specimen Blood Performing Organization Address [facility] Phone Number MA[facility] [address] [place] [address] * CALCIUM (10/15/2018 8:24 PM SPORTS PHYSIOLOGIST) Calcium 7.8 (L) 8.5 - 10.6 MG/DL MAIN LAB Specimen Blood Performing Organization Address [facility] Phone Number [facility] [address] [place] [address] * IONIZED CALCIUM (10/15/2018 8:24 PM SPORTS PHYSIOLOGIST) Ionized Calcium 0.96 (L) 1.0 - 1.3 MMOL/L [facility] Specimen Blood Performing Organization Address [facility] Phone Number [facility] [address] [place] [address] * 25-OH VITAMIN D (D2 + D3) (10/15/2018 8:24 PM SPORTS PHYSIOLOGIST) Vitamin D(25-OH)Total 9.1 (L) 30 - 80 NG/ML MAIN LAB Specimen Blood Performing Organization Address [facility] Phone Number [facility] [address] [place] [address] * IONIZED CALCIUM (10/15/2018 11:08 AM SPORTS PHYSIOLOGIST) Ionized Calcium 0.98 (L) 1.0 - 1.3 MMOL/L [facility] Specimen Blood Performing Organization Address [facility] Phone Number [facility] [address] [place] [address] * CALCIUM (10/15/2018 11:08 AM SPORTS PHYSIOLOGIST) Calcium 7.8 (L) 8.5 - 10.6 MG/DL [facility] Specimen Blood Performing Organization Address [facility] Phone Number [facility] [address] [place] [address] * PARATHYROID HORMONE (10/15/2018 3:15 AM SPORTS PHYSIOLOGIST) PTH Hormone 4.0 (L) 10 - 65 PG/ML [facility] Performing Organization Address [facility] [place] Phone Number [facility] [address] [place] [address] * IONIZED CALCIUM (10/15/2018 3:15 AM SPORTS PHYSIOLOGIST) Ionized Calcium 0.76 (L) 1.0 - 1.3 MMOL/L [facility] Specimen Blood Performing Organization Address [facility] Phone Number [facility] [address] [place] [address] * PHOSPHORUS (10/15/2018 3:15 AM SPORTS PHYSIOLOGIST) Phosphorus 2.8Comment: NOTE NEW REFERENCE 2.0 - 4.5 MG/DL [facility] RANGES Specimen Blood Performing Organization Address [facility] Phone Number [facility] [address] [place] [address] * MAGNESIUM (10/15/2018 3:15 AM SPORTS PHYSIOLOGIST) Magnesium 1.9 1.6 - 2.6 mg/dL [facility] Specimen Blood Performing Organization Address [facility] Phone Number [facility] [address] [place] [address] * BASIC METABOLIC PANEL (10/15/2018 3:15 AM SPORTS PHYSIOLOGIST) Sodium 138 137 - 147 MMOL/L [facility] [...] for questions. Specimen Blood Performing Organization Address [facility] Phone Number MAIN [facility] [address] [place] [address] * CBC (10/15/2018 3:15 AM SPORTS PHYSIOLOGIST) White Blood Cells 9.0 4.5 - 11.0 K/UL [facility] RBC 3.23 (L) 4.0 - 5.0 M/UL [facility] Hemoglobin 10.4 (L) 12.0 - 15.0 GM/DL [facility] Hematocrit 30.5 (L) 36 - [...] MAIN LAB Specimen Blood Performing Organization Address [facility] Phone Number MAIN LAB [address] [place] [address] * CALCIUM (10/14/2018 10:53 PM SPORTS PHYSIOLOGIST) Calcium 7.5 (L) 8.5 - 10.6 MG/DL [facility] Specimen Blood Performing Organization Address [facility] Phone Number MAIN LAB [address] [place] [address] * IONIZED CALCIUM (10/14/2018 10:45 PM SPORTS PHYSIOLOGIST) Ionized Calcium 0.71 (L) 1.0 - 1.3 MMOL/L [facility] Performing Organization Address [facility]/Zipcode Phone Number MAIN LAB [address] [place] [address] * CALCIUM (10/14/2018 6:15 PM SPORTS PHYSIOLOGIST) Calcium 7.2 (L) 8.5 - 10.6 MG/DL MAIN LAB Specimen Blood Performing Organization Address [facility] Phone Number MAIN LAB [address] [place] [address] * IONIZED CALCIUM (10/14/2018 6:15 PM SPORTS PHYSIOLOGIST) Ionized Calcium 0.98 (L) 1.0 - 1.3 MMOL/L MAIN LAB Specimen Blood Performing Organization Address [facility] Phone Number MAIN LAB [address] [place] [address] * CALCIUM (10/14/2018 3:38 PM SPORTS PHYSIOLOGIST) Calcium 7.6 (L) 8.5 - 10.6 MG/DL MAIN LAB Specimen Blood Performing Organization Address [facility] Phone Number MA[facility] LAB [address] [place] [address] * CALCIUM (10/14/2018 10:30 AM SPORTS PHYSIOLOGIST) Calcium 7.8 (L) 8.5 - 10.6 MG/DL MAIN LAB Specimen Blood Performing Organization Address [facility] Phone Number [facility] [address] [place] [address] * IONIZED CALCIUM (10/14/2018 10:30 AM SPORTS PHYSIOLOGIST) Ionized Calcium 1.04 1.0 - 1.3 MMOL/L MAIN LAB Specimen Blood Performing Organization Address [facility] Phone Number MAIN LAB [address] [place] [address] * IONIZED CALCIUM (10/14/2018 7:20 AM SPORTS PHYSIOLOGIST) Ionized Calcium 0.98 (L) 1.0 - 1.3 MMOL/L MAIN LAB Specimen Blood Performing Organization Address [facility] Phone Number MAIN LAB [address] [place] [address] * PHOSPHORUS (10/14/2018 5:47 AM SPORTS PHYSIOLOGIST) Phosphorus 3.3Comment: NOTE NEW REFERENCE 2.0 - 4.5 MG/DL [facility] RANGES Specimen Blood Performing Organization Address [facility] Phone Number [facility] [address] [place] [address] * MAGNESIUM (10/14/2018 5:47 AM SPORTS PHYSIOLOGIST) Magnesium 2.1 1.6 - 2.6 mg/dL [facility] Specimen Blood Performing Organization Address [facility] Phone Number [facility] [address] [place] [address] * BASIC METABOLIC PANEL (10/14/2018 5:47 AM SPORTS PHYSIOLOGIST) Sodium 140 137 - 147 MMOL/L [facility] [...] for questions. Specimen Blood Performing Organization Address [facility] Phone Number [facility] [address] [place] [address] * CBC (10/14/2018 5:47 AM SPORTS PHYSIOLOGIST) White Blood Cells 8.0 4.5 - 11.0 [...] MAIN LAB Specimen Blood Performing Organization Address [facility] Phone Number [facility] [address] [place] [address] * CALCIUM (10/13/2018 11:30 PM SPORTS PHYSIOLOGIST) Calcium 7.7 (L) 8.5 - 10.6 MG/DL [facility] Specimen Blood Performing Organization Address [facility] Phone Number [facility] [address] [place] [address] * IONIZED CALCIUM (10/13/2018 11:30 PM SPORTS PHYSIOLOGIST) Ionized Calcium 0.99 (L) 1.0 - 1.3 MMOL/L [facility] Specimen Blood Performing Organization Address [facility] Phone Number MAIN [facility] [address] [place] [address] * ABDOMEN AP ONLY (10/13/2018 3:15 PM SPORTS PHYSIOLOGIST) Impressions Performed At NG tube with tip [...] Interface, Radiant Results - 10/13/2018 5:25 PM SPORTS PHYSIOLOGIST ABDOMEN AP ONLY Clinical Indication: Female, 58 [...] on 10/13/2018 4:35 PM. Performing Organization Address [facility] Phone Number [facility] RESULTS * CALCIUM (10/13/2018 3:00 PM SPORTS PHYSIOLOGIST) Calcium 9.1 8.5 - 10.6 MG/DL [facility] Specimen Blood Performing Organization Address [facility] Phone Number [facility] [address] [place] [address] * IONIZED CALCIUM (10/13/2018 3:00 PM SPORTS PHYSIOLOGIST) Ionized Calcium 1.13 1.0 - 1.3 MMOL/L MAIN LAB Specimen Blood Performing Organization Address [facility] Phone Number [facility] [address] [place] [address] * PARATHYROID HORMONE (10/13/2018 3:00 PM SPORTS PHYSIOLOGIST) PTH Hormone 6.0 (L) 10 - 65 PG/ML [facility] Specimen Blood Performing Organization Address [facility] Phone Number [facility] [address] [place] [address] * SURGICAL PATHOLOGY (10/13/2018 12:12 PM SPORTS PHYSIOLOGIST) PATHOLOGY REPORT [facility] www[facility] Department of Pathology and Laboratory Medicine [address] [place] [address] Surgical Pathology Office:[phone] :[phone] SURGICAL PATHOLOGY REPORT NAME: JACKI MADSEN SURG PATH #: [id number] MR #: [id number] SPECIMEN CLASS: [facility] BILLING #: [id number] ALT ID #:LOCATION: DISCHARGED DATE OF PROCEDURE: 10/13/2018 AGE:58 SEX: F DATE RECEIVED: 10/13/2018 : 1960TIME RECEIVED:12:12 PHYSICIAN: KALLI OWENS DATE OF REPORT: 10/22/2018 COPY TO:DATE OF [...] A8-A9 Adipose tissue and possible lymph nodes. ([facility]) B. Received in formalin labeled with the [...] B10-B11 Fibroadipose tissue and possible lymph nodes. ([facility]) C. Fixative: Fresh Labeled: "Larynx and total [...] tip exiting off. 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 C2 Right aryepiglottic fold & right piriform sinus (with inked pyriform sinus margin). C3Left aryepiglottic fold & left piriform sinus (with inked pyriform sinus margin). T6Eyohoebmud, inked vallecular/base of tongue margin. C5 Post cricoid mucosal margin. U9Uxwzt true vocal cord/ventricle/false vocal cord with paraglottic space. C7Left true vocal cord/ventricle/false vocal cord with paraglottic space. D0Jbaxfuys commissure. G4Wyyvlvniwv and pre-epiglottic space. Q04Vqkkc to right/left paraglottic space. F78Rgzcr to thyroid cartilage (at deepest invasion). M18Noicd to nearest anterior soft tissue margin. F07Zuakbfz of posterior cricoid cartilage with posterior cricoid area. C31Kplsgxj of hyoid bone. S56Lmhofjdafkzqfn section of skin at tracheostomy site. Z66Qwmirwwnopsjoj sections from left thyroid. B63Yetorwczpneqjj sections from right thyroid. ([facility]) D. Received fresh, labeled with patient's name and "right hypopharynx" is a 6.9 x 0.4 x 0.3 cm white-henson tissue fragment. The specimen is bisected and is submitted entirely for frozen consultation with the remnant placed in cassette D1FS for permanent diagnosis. ([facility]) E. Received fresh, labeled with patient's name and "left hypopharynx" is a 7.5 x 0.4 x 0.3 cm white-henson tissue fragment. The specimen is trisected and is submitted entirely for frozen consultation with the remnant placed in cassette E1FS for permanent diagnosis. ([facility]) F. Received fresh, labeled with patient's name and "base of tongue MM" is a 1.3 x 0.3 x 0.3 cm white-henson tissue fragment. The specimen is submitted entirely for frozen consultation with the remnant placed in cassette F1FS for permanent diagnosis. ([facility]) G. Received fresh, labeled with patient's name and "post cricoid" is a 1.4 x 0.3 x 0.3 cm white-henson tissue fragment. The specimen is submitted entirely for frozen consultation with the remnant placed in cassette G1FS for permanent diagnosis. ([facility]) [facility]/10/13/2018 Intraoperative Consultation: D1FS, mucosa, "right hypopharynx", biopsy: Negative for malignancy E1FS, mucosa, "left hypopharynx", biopsy: Negative for malignancy F1FS, mucosa, "base of tongue MM", biopsy: Negative for malignancy G1FS, mucosa, "post cricoid", biopsy: Negative for malignancy Frozen section performed at the [facility], [facility], [address] [place] [address]. Jasmina Rubi MD Performing Organization Address City/[facility]/Zipcode Phone Number [facility] [address] [place] [address] * BLOOD TYPE CONFIRMATION - ORDER ONLY IF REQUESTED BY LAB (10/13/2018 8:35 AM SPORTS PHYSIOLOGIST) ABO/RH(D) A POS MAIN LAB Specimen Blood Performing Organization Address [facility] Phone Number [facility] [address] [place] [address] * TYPE & CROSSMATCH (10/13/2018 8:30 AM SPORTS PHYSIOLOGIST) Units Ordered 2 MAIN LAB Crossmatch Expires 10/16/2018 [facility] Record Check 2ND TYPE REQUIRED [facility] ABO/RH(D) A POS MAIN LAB Antibody Screen NEG MAIN LAB Electronic Crossmatch YES MAIN LAB Specimen Blood Performing Organization Address City/[facility]/Zipcode Phone Number [facility] [address] [place] [address] * 2-D + DOPPLER ECHOCARDIOGRAM (10/08/2018 11:14 AM SPORTS PHYSIOLOGIST) BSA 1.9 m2 OTHER OUTSIDE LAB LVIDD [...] 34 OTHER OUTSIDE LAB Cardiology Ultrasound Siemens [id number] OTHER OUTSIDE LAB Machine Left Ventricle Mass [...] * SWALLOW MOTION SERIES (10/07/2018 8:48 AM SPORTS PHYSIOLOGIST) Impressions Performed At 1. Laryngeal penetration with [...] Interface, Radiant Results - 10/07/2018 11:27 AM SPORTS PHYSIOLOGIST SWALLOW MOTION SERIES CLINICAL HISTORY: Female, 58 [...] PET SCAN TORSO (SKULL-THIGHS) (10/06/2018 1:21 PM SPORTS PHYSIOLOGIST) Impressions Performed At 1.Hypermetabolic left glottic mass, [...] Interface, Radiant Results - 10/06/2018 5:08 PM SPORTS PHYSIOLOGIST PET/CT NECK, CHEST, ABDOMEN AND PELVIS RADIOPHARMACEUTICAL: [...] * CT NECK W/CONTRAST (10/06/2018 10:14 AM SPORTS PHYSIOLOGIST) Impressions Performed At 1. Interval tracheostomy and [...] Interface, Radiant Results - 10/06/2018 11:[address] Neck with Contrast Clinical Indication: Female, [...] CT CHEST W CONTRAST (10/06/2018 10:14 AM SPORTS PHYSIOLOGIST) Impressions Performed At 1. Subcutaneous air and [...] Interface, Radiant Results - 10/06/2018 10:[address] CHEST W CONTRAST INDICATION: Laryngeal mass [...] on 10/06/2018 10:42 AM. Performing Organization Address City/[facility]/[employer] Phone Number [employer] RAD RESULTS * POC GLUCOSE (10/06/2018 9:43 AM SPORTS PHYSIOLOGIST) Glucose, POC 83 70 - 100 MG/DL [facility] MAIN LAB Performing Organization Address [facility]/[employer] Phone Number [facility] [address] [place] [address] * PHOSPHORUS (10/06/2018 8:45 AM SPORTS PHYSIOLOGIST) Phosphorus 2.6Comment: NOTE NEW REFERENCE 2.0 - 4.5 MG/DL [employer] MAIN LAB RANGES Performing Organization Address City/[facility]/Zipcode Phone Number [facility] [address] [place] [address] * MAGNESIUM (10/06/2018 8:45 AM SPORTS PHYSIOLOGIST) Magnesium 1.8 1.6 - 2.6 mg/dL [facility] Performing Organization Address [facility] Phone Number [facility] [address] [place] [address] * BASIC METABOLIC PANEL (10/06/2018 8:45 AM SPORTS PHYSIOLOGIST) Sodium 138 137 - 147 MMOL/L [facility] [...] Clinical Pharmacist for questions. Performing Organization Address [facility] Phone Number [facility] [address] [place] [address] * THYROID STIMULATING HORMONE-TSH (10/06/2018 8:45 AM SPORTS PHYSIOLOGIST) TSH 0.680 0.35 - 5.00 MCU/ML [facility] Specimen Blood Performing Organization Address City/[facility]/Zipcode Phone Number [facility] [address] [place] [address] * PREALBUMIN (10/06/2018 8:45 AM SPORTS PHYSIOLOGIST) Prealbumin 19.0 17 - 34 MG/DL [facility] Specimen Blood Performing Organization Address City/[facility]/Zipcode Phone Number [facility] [address] [place] [address] * ALBUMIN (10/06/2018 8:45 AM SPORTS PHYSIOLOGIST) Albumin 4.0 3.5 - 5.0 G/DL [facility] Specimen Blood Performing Organization Address [facility] Phone Number MA[facility] LAB [address] [place] [address] * BASIC METABOLIC PANEL (10/05/2018 4:41 PM SPORTS PHYSIOLOGIST) Sodium 137 137 - 147 MMOL/L [facility] [...] for questions. Specimen Blood Performing Organization Address [facility] Phone Number MAIN LAB [address] [place] [address] * CBC (10/05/2018 4:41 PM SPORTS PHYSIOLOGIST) White Blood Cells 7.2 4.5 - 11.0 K/UL [facility] RBC 4.23 4.0 - 5.0 M/UL [facility] Hemoglobin 13.4 12.0 - 15.0 GM/DL [facility] Hematocrit 40.1 36 - 45 % [facility] MCV 94.9 80 - 100 FL [facility] MCH 31.7 26 - 34 PG [facility] MCHC 33.4 32.0 - 36.0 G/DL [facility] RDW 12.7 11 - 15 % [facility] Platelet Count 220 150 - 400 K/UL [facility] MPV 7.7 7 - 11 FL [facility] Specimen Blood Performing Organization Address City/[facility]/Zipcode Phone Number MAIN LAB [address] [place] [address] * SURGICAL PATHOLOGY (10/05/2018 4:02 PM SPORTS PHYSIOLOGIST) PATHOLOGY REPORT [facility] [employer] www[facility] Department of Pathology and Laboratory Medicine [address] [place] [address] Surgical Pathology Office:[phone] :[phone] SURGICAL PATHOLOGY REPORT NAME: JACKI MADSEN SURG PATH #: [id number] MR #: [id number] SPECIMEN CLASS: [facility]CA BILLING #: [id number] ALT ID #:LOCATION: [facility] DATE OF PROCEDURE: 10/05/2018 AGE:58 SEX: F DATE RECEIVED: 10/05/2018 : 1960TIME RECEIVED:16:02 PHYSICIAN: KALLI OWENS DATE OF REPORT: 10/07/2018 COPY TO: DATE OF PRINTIN10/07/2018 ############################## ############################## ############ Final Diagnosis: A. Squamous mucosa, "left true vocal cord", biopsy: Moderately differentiated squamous cell carcinoma, keratinizing. B. 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 Comment: Pursuant to the [employer] Plant Operator Program at the [facility] Pathology Department, selected slides from this [...] report. +++ +++ Truong Edward MD Resident [facility]/10/06/2018 ############################## ############################## ############ Material Received: A: left [...] for frozen section and permanent section diagnosis. () B. Received in formalin, labeled with the patient's name and "left true vocal cord" is a 1.1 x 0.5 x 0.2 cm aggregate of pale-henson rubbery tissue fragments. The specimen is submitted entirely in cassette B1. (lmt) /10/05/2018 Intraoperative Consultation: A1FS, squamous mucosa, "left true vocal cord", biopsy: Moderately differentiated squamous cell carcinoma. Frozen section performed at the [facility], [address] [place] [id number]. Stone Chávez MD Performing Organization Address City/State/Zipcode Phone Number [facility] RESULTS * TELEMETRY STRIPS-SCAN (10/05/2018 12:00 AM SPORTS PHYSIOLOGIST) Narrative Performed At Ordered by an unspecified provider. * EXERCISE OXIMETRY-SCAN (10/05/2018 12:00 AM SPORTS PHYSIOLOGIST) Narrative Performed At Ordered by an unspecified provider. * ECG-SCAN (10/05/2018 12:00 AM SPORTS PHYSIOLOGIST) Narrative Performed At Ordered by an unspecified provider. in this encounter Visit Diagnoses Not on filein this encounter Admitting Diagnoses Diagnosis Laryngeal mass Other diseases of larynx in this encounter Administered Medications Action Date Dose Rate Site Medication Order MAR Action 10/22/2018 9:19 AM SPORTS PHYSIOLOGIST 650 mg acetaminophen (TYLENOL) oral solution Given 650 mg 650 mg, Per NG tube, EVERY 4 HOURS, First dose on Alexandra 10/15/18 at 0800, Until Discontinued, TOTAL ACETAMINOPHEN DOSE NOT TO EXCEED 4GM DAILY, 650 mg Given 10/22/2018 4:27 AM SPORTS PHYSIOLOGIST 650 mg Given 10/21/2018 10:00 PM SPORTS PHYSIOLOGIST 10/21/2018 3:19 PM SPORTS PHYSIOLOGIST 0.25 mg ALPRAZolam (XANAX) tablet 0.25 mg Given 0.25 mg, Oral, TWICE DAILY PRN, Starting Fri10/21/18 at 1427, Until Alexandra 10/22/18 at 1308, Anxiety PO 10/22/2018 9:20 AM SPORTS PHYSIOLOGIST 875 mg amoxicillin/K clavulanate (AUGMENTIN) Given oral suspension 875 mg 875 mg, Per NG tube, TWICE DAILY, First dose on Fri10/21/18 at 1215, Until Discontinued 875 mg Given 10/21/2018 10:00 PM SPORTS PHYSIOLOGIST 875 mg Given 10/21/2018 3:19 PM SPORTS PHYSIOLOGIST 10/22/2018 9:16 AM SPORTS PHYSIOLOGIST 1 spray antiseptic mucus solvent 120 mL solution Given 1 spray 1 spray, Tracheal Tube, EVERY 2 HOURS WHILE AWAKE, First dose on Fri10/13/18 at 1700, Until Discontinued, Dilute 1:1 with NS prior to administration. And PRN, 1 spray Given 10/21/2018 10:00 PM SPORTS PHYSIOLOGIST 1 spray Given 10/21/2018 2:30 PM SPORTS PHYSIOLOGIST 10/19/2018 12:12 PM SPORTS PHYSIOLOGIST 13 mL bupivacaine (MARCAINE) 0.5 % injection Given INTRA-PROCEDURE MED, Starting Fri10/19/18 at 1212, Until Fri10/19/18 at 1220, Intra-op 10/21/2018 10:58 PM SPORTS PHYSIOLOGIST 2,850 mg calcium citrate (CALCITRATE) tablet Given 2,850 mg 2,850 mg, Per NG tube, TWICE DAILY, First dose on Fri10/20/18 at 0900, Until Discontinued, Each tablet delivers 200mg elemental Calcium, 2,850 mg Given 10/21/2018 8:36 AM SPORTS PHYSIOLOGIST 2,850 mg Given 10/20/2018 8:29 PM SPORTS PHYSIOLOGIST 10/19/2018 9:01 PM SPORTS PHYSIOLOGIST 100 mg docusate (COLACE) oral solution 100 mg Given 100 mg, Per NG tube, TWICE DAILY, First dose on Fri10/13/18 at 2100, Until Discontinued, Hold for loose stools, 100 mg Given 10/19/2018 2:39 PM SPORTS PHYSIOLOGIST 100 mg Given 10/18/2018 9:19 PM SPORTS PHYSIOLOGIST 10/21/2018 8:54 AM SPORTS PHYSIOLOGIST 50,000 Units ergocalciferol (vitamin D-2) Given (CALCIFEROL) oral solution 50,000 Units 50,000 Units, Oral, THREE TIMES WEEKLY (Once per day on Fri), First dose on Fri10/16/18 at 1830, Until Discontinued 50,000 Units Given 10/19/2018 2:41 PM SPORTS PHYSIOLOGIST 50,000 Units Given 10/16/2018 8:22 PM SPORTS PHYSIOLOGIST 10/22/2018 9:19 AM SPORTS PHYSIOLOGIST 20 mg famotidine (PEPCID) oral suspension 20 Given mg 20 mg, Per NG tube, TWICE DAILY, First dose on Fri10/13/18 at 2100, Until Discontinued 20 mg Given 10/21/2018 10:00 PM SPORTS PHYSIOLOGIST 20 mg Given 10/21/2018 8:36 AM SPORTS PHYSIOLOGIST 10/22/2018 6:11 AM SPORTS PHYSIOLOGIST 300 mg gabapentin (NEURONTIN) oral solution 300 Given mg 300 mg, Per NG tube, EVERY 8 HOURS, First dose on Fri10/14/18 at 1400, Until Discontinued 300 mg Given 10/21/2018 10:19 PM SPORTS PHYSIOLOGIST 300 mg Given 10/21/2018 3:19 PM SPORTS PHYSIOLOGIST 10/22/2018 6:10 AM SPORTS PHYSIOLOGIST 5,000 Units Abdominal Tissue heparin (porcine) PF syringe 5,000 Units Given 5,000 Units, Subcutaneous, EVERY 8 HOURS, First dose on Fri10/14/18 at 0600, Until Discontinued, NOTE: This is a HIGH ALERT Medication., 5,000 Units Abdominal Tissue Given 10/21/2018 10:19 PM SPORTS PHYSIOLOGIST 5,000 Units Abdominal Tissue Given 10/21/2018 3:20 PM SPORTS PHYSIOLOGIST 10/22/2018 6:10 AM SPORTS PHYSIOLOGIST 125 mcg levothyroxine (SYNTHROID) tablet 125 mcg Given 125 mcg, Per NG tube, DAILY 30MIN BEFORE BREAKFAST, First dose on Fri10/15/18 at 0630, Until Discontinued, Give 1 hour before a meal. If patient is receiving tube feedings, hold tube feed 1hr before and 1hr after dose., 125 mcg Given 10/21/2018 6:35 AM SPORTS PHYSIOLOGIST 125 mcg Given 10/20/2018 6:13 AM SPORTS PHYSIOLOGIST 10/19/2018 9:01 PM SPORTS PHYSIOLOGIST 10 mL milk of magnesia (CONC) oral suspension Given 10 mL 10 mL, Per NG tube, AT BEDTIME DAILY, First dose on Fri10/13/18 at 2100, Until Discontinued, Give daily until first bowel movement, then PRN Constipation PO. 10 mL CONC=30 mL MOM, 10 mL Given 10/13/2018 8:06 PM SPORTS PHYSIOLOGIST 10/16/2018 5:29 PM SPORTS PHYSIOLOGIST 2 mg morphine injection syringe 2 mg Given 2 mg, Intravenous, EVERY 2 HOURS PRN, Starting 10/13/18 at 1609, Until Alexandra 10/22/18 at 1308, Pain Injectable 2 mg Given 10/13/2018 6:38 PM SPORTS PHYSIOLOGIST 10/19/2018 3:07 PM SPORTS PHYSIOLOGIST 4 mg ondansetron (ZOFRAN) injection 4 mg Given 4 mg, Intravenous, EVERY 6 HOURS PRN, Starting e 10/13/18 at 1609, Until Alexandra 10/22/18 at 1308, Nausea/Vomiting Injectable 4 mg Given 10/14/2018 9:14 AM SPORTS PHYSIOLOGIST 4 mg Given 10/13/2018 6:38 PM SPORTS PHYSIOLOGIST 10/22/2018 10:35 AM SPORTS PHYSIOLOGIST 5 mg oxyCODONE (ROXICODONE) oral solution 5 Given mg 5 mg, Per NG tube, EVERY 4 HOURS PRN, Starting Fri10/13/18 at 1609, Until Alexandra 10/22/18 at 1308, Pain PO 5 mg Given 10/20/2018 9:59 AM SPORTS PHYSIOLOGIST 5 mg Given 10/20/2018 6:22 AM SPORTS PHYSIOLOGIST pancrelipase 20,000 Units/ sodium bicarbonate 650 mg(#) ([facility] CLOG DESTROYER) for occluded feeding tube cap 1 capsule 1 capsule, Feeding Tube, NEEDED (CRIMINAL ANALYST FROM RX), Starting Alexandra 10/15/18 at 0720, Until Alexandra 10/22/18 at 1308, [...] remains occluded following administration., 10/21/2018 10:00 PM SPORTS PHYSIOLOGIST 40 mg pantoprazole(#) (PROTONIX) suspension 40 Given mg 40 mg, Per NG tube, DAILY, First dose on Fri10/14/18 at 0845, Until Discontinued 40 mg Given 10/20/2018 8:32 PM SPORTS PHYSIOLOGIST 40 mg Given 10/19/2018 9:02 PM SPORTS PHYSIOLOGIST 10/21/2018 10:00 PM SPORTS PHYSIOLOGIST 40 mg pravastatin (PRAVACHOL) tablet 40 mg Given 40 mg, Per NG tube, AT BEDTIME DAILY, First dose on Fri10/14/18 at 2100, Until Discontinued 40 mg Given 10/20/2018 11:40 PM SPORTS PHYSIOLOGIST 40 mg Given 10/19/2018 9:02 PM SPORTS PHYSIOLOGIST 10/13/2018 7:32 PM SPORTS PHYSIOLOGIST 10 mg prochlorperazine (COMPAZINE) injection Given 5-10 mg 5-10 mg, Intravenous, EVERY 6 HOURS PRN, Starting Fri10/09/18 at 2026, Until Alexandra 10/22/18 at 1308, Nausea/Vomiting Injectable, If zofran ineffective, PROTECT FROM LIGHT -- May be given undiluted, or each 5mg may be diluted with 9 mL of NS to facilitate titration., 5 mg Given 10/09/2018 8:55 PM SPORTS PHYSIOLOGIST 10/21/2018 10:00 PM SPORTS PHYSIOLOGIST 500 mg QUEtiapine (SEROQUEL) tablet 500 mg Given 500 mg, Per NG tube, AT BEDTIME DAILY, First dose on Fri10/14/18 at 2100, Until Discontinued 500 mg Given 10/20/2018 8:29 PM SPORTS PHYSIOLOGIST 500 mg Given 10/19/2018 9:01 PM SPORTS PHYSIOLOGIST 10/21/2018 4:19 AM SPORTS PHYSIOLOGIST 1 spray sodium chloride (SEA MIST) 0.65 % nasal Given spray 1-2 spray 1-2 spray, Each Nostril, EVERY 2 HOURS, First dose on Fri10/16/18 at 0800, Until Discontinued, While awake (NGT irritation), 2 sprays Given 10/20/2018 11:41 PM SPORTS PHYSIOLOGIST 1 spray Given 10/20/2018 10:00 PM SPORTS PHYSIOLOGIST 10/22/2018 7:36 AM SPORTS PHYSIOLOGIST 100 mg traMADol (ULTRAM) tablet 50-100 mg Given 50-100 mg, Per NG tube, EVERY 4 HOURS PRN, Starting Tu10/13/18 at 2047, Until Alexandra 10/22/18 at 1308, Pain PO, 1st line before oxycodone, Can be used INSTEAD OF oxycodone, 50 mg Given 10/21/2018 3:19 PM SPORTS PHYSIOLOGIST 100 mg Given 10/20/2018 8:40 PM SPORTS PHYSIOLOGIST 10/22/2018 9:19 AM SPORTS PHYSIOLOGIST 37.5 mg venlafaxine (EFFEXOR) tablet 37.5 mg Given 37.5 mg, Per NG tube, TWICE DAILY WITH MEALS, First dose on Fri10/14/18 at 0930, Until Discontinued 37.5 mg Given 10/21/2018 6:06 PM SPORTS PHYSIOLOGIST 37.5 mg Given 10/21/2018 8:36 AM SPORTS PHYSIOLOGIST in this encounter
--- OUTSIDE RECORDS SUMMARY | 2018-11-13 11:36 | XMS REPORT | Encounter Summary ---
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] Procedures NH TRACHEOSTOMY PLANNED SEPARATE PROCEDURE TRACHEOSTOMY PLANNED Encounter Details Care Team Description Date Type Department Faustino Prince MD [address] [facility] [address] [place] [address] 10/05/2018 Anesthesia CA Operating Room Event [address] [place] [address] Anesthesia Record Responsible Anesthesiologist Anesthesia Start Time Anesthesia Stop Time Procedure Name Faustino Prince MD 10/05/18 1514 10/05/18 1633 TRACHEOSTOMY PLANNED AWAKE TRACHEOSTOMY (N/A Neck) Date Time Event Comment 1427 AN Equip Check 2018 1512 1513 Out of Pre Procedure 1514 Anes Start 1515 In Room 1516 An Start Data 1523 Start Supplemental O2 1523 Anesthesia Ready 1532 Proc Start 1546 an jason now 1547 An Induction The patient was reevaluated immediately before moderate or deep sedation use and before anesthesia induction. 1630 an stop data 1633 Handoff to RN I completed my SBAR handoff to the receiving nurse. 1633 An Stop Meds Name Total midazolam (VERSED) 1 mg/mL injection 2 mg fentaNYL PF (SUBLIMAZE) injection 100 mcg propofol (DIPRIVAN) 200 mg/ 20 mL 100 mg injection (VIAL) dexmedetomidine in 0.9 % NaCl (PRECEDEX) 15.15 mcg infusion rocuronium (ZEMURON) injection 30 mg sugammadex (BRIDION) 100 mg/mL iv soln 153 mg lactated ringers infusion 1,000 mL * Name O2 N2O Inspired Sevoflurane Inspired Sevoflurane * No blood administrations on file. Removal Type Details Placement 10/10/18 0906 by King Mancuso RN Peripheral 10/05/18; 1445; IV Therapy (E. Trembath, 10/05/18 1445 by ANJALI Avalos RN); L; Anterior; Forearm; 20 G; No; GUCCI Vazquez Ultrasound; 1; 1.75 inches; Symptomatic (phlebitis, pain, leaking, infiltration) (pt request); 10/10/18; 0906 10/13/18 1416 by Marcia Smith CRNA Tracheosto 10/05/18; 1545; 6.0; Sparkle, Cuffed; 10/05/18 1545 by Anusha, my Tube 10/13/18; 1416 GUCCI Bennett 10/15/18 2121 by Allyn Cowan RN Wounds 10/05/18; 1614; Neck; Surgical Incision; 10/05/18 1614 by Anusha, (NOT for 10/15/18; 2120; Sutures- trach tube in GUCCI Bennett Pressure place Injuries) in this encounter Social History Date Tobacco Use Types Packs/Day Years Used Current Every Day Smoker 0.5 Alcohol Use Drinks/Week oz/Week Comments Yes rarely Sex Assigned at Date Recorded Not on file Industry Job Start Date Occupation Not on file Not on file Not on file Travel End Travel History Travel Start No recent travel history available. as of this encounter Plan of Treatment Not on fileas of this encounter Visit Diagnoses Not on filein this encounter Administered Medications Action Date Dose Rate Site Medication Order MAR Action 10/05/2018 3:29 PM OUTSIDE SALES EXECUTIVE 0.7 mcg/kg/hr 13.4 mL/hr dexmedetomidine in 0.9 % NaCl (PRECEDEX) Given - New infusion Bag 50 mL, INTRA-PROCEDURE MED(CONT), Starting Fri10/05/18 at 1529, Until Fri10/05/18 at 1713, Anesthesia Intra-op 10/05/2018 3:50 PM OUTSIDE SALES EXECUTIVE 50 mcg fentaNYL citrate PF (SUBLIMAZE) Given injection INTRA-PROCEDURE MED, Starting Fri10/05/18 at 1533, Until Fri10/05/18 at 1713, Anesthesia Intra-op 25 mcg Given 10/05/2018 3:48 PM OUTSIDE SALES EXECUTIVE 25 mcg Given 10/05/2018 3:33 PM OUTSIDE SALES EXECUTIVE 10/05/2018 4:20 PM OUTSIDE SALES EXECUTIVE lactated ringers infusion Given - New 1,000 mL, Intravenous, at 20 mL/hr, Bag CONTINUOUS, Starting Fri10/05/18 at 1500, Until Fri10/05/18 at 1838, Pre-Op Given - New Bag 10/05/2018 3:06 PM OUTSIDE SALES EXECUTIVE 20 mL/hr Given - New Bag 10/05/2018 2:52 PM OUTSIDE SALES EXECUTIVE 10/05/2018 3:23 PM OUTSIDE SALES EXECUTIVE 2 mg midazolam (VERSED) injection Given Intravenous, INTRA-PROCEDURE MED, Starting Fri10/05/18 at 1523, Until Fri10/05/18 at 1713, Anesthesia Intra-op 10/05/2018 3:54 PM OUTSIDE SALES EXECUTIVE 20 mg propofol (DIPRIVAN) injection Given INTRA-PROCEDURE MED, Starting Fri10/05/18 at 1546, Until Fri10/05/18 at 1713, Anesthesia Intra-op 80 mg Given 10/05/2018 3:46 PM OUTSIDE SALES EXECUTIVE 10/05/2018 3:49 PM OUTSIDE SALES EXECUTIVE 20 mg rocuronium (ZEMURON) injection Given INTRA-PROCEDURE MED, Starting Fri10/05/18 at 1549, Until Fri10/05/18 at 1713, Anesthesia Intra-op 10 mg Given 10/05/2018 3:46 PM OUTSIDE SALES EXECUTIVE 10/05/2018 4:09 PM OUTSIDE SALES EXECUTIVE 153 mg sugammadex (BRIDION) injection Given INTRA-PROCEDURE MED, Starting Fri10/05/18 at 1606, Until Fri10/05/18 at 1713, Anesthesia Intra-op in this encounter
--- OUTSIDE RECORDS SUMMARY | 2018-11-13 11:36 | XMS REPORT | Encounter Summary ---
Author Author [facility] Organization [facility] Address Unknown Phone Unavailable Care Team Providers Care Instructor Of Education Name Role Phone Kelly Olivier RN Unavailable Unavailable Chris Ohara MD PCP Encounter Details Care Team Description Date Type Department Kayli Wyatt MD [address] [place] [address] 10/07/2018 Prep for Case ADMITTING [address] [facility] [place] [address] Social History Date Tobacco Use Types Packs/Day [...]
--- OUTSIDE RECORDS SUMMARY | 2018-11-13 11:36 | XMS REPORT | Encounter Summary ---
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] Procedures WA TRACHEOSTOMY PLANNED SEPARATE PROCEDURE TRACHEOSTOMY PLANNED Encounter Details Care Team Description Date Type Department Kalli Snyder MD [address] [place] [address] PRIMARY LARYNGECTOMY TOTAL WITH RADICAL NECK DISSECTION [ 84671 (CPT)] 10/13/2018 Surgery [facility] Operating Room [address] [place] [address] Social History Date Tobacco Use Types Packs/Day [...] Taken Vital Sign Reading 10/22/2018 6:30 AM PROCESSING ANALYST Blood Pressure 90/49 10/22/2018 6:27 AM PROCESSING ANALYST Pulse 89 10/22/2018 5:50 AM PROCESSING ANALYST Temperature 36.8 C (98.2 F) - Respiratory Rate - 10/22/2018 6:44 AM PROCESSING ANALYST Oxygen Saturation 95% - Inhaled Oxygen - Concentration 10/08/2018 11:15 AM PROCESSING ANALYST Weight 76.2 kg (168 lb) 10/08/2018 11:15 AM PROCESSING ANALYST Height 170.2 cm (5' 7") 10/08/2018 11:15 AM PROCESSING ANALYST Body Mass Index 26.31 in this encounter [...] Associated Diagnosis CBC Routine 10/22/2018 5:40 AM PROCESSING ANALYST IONIZED CALCIUM Routine 10/22/2018 5:40 AM PROCESSING ANALYST CALCIUM Routine 10/22/2018 5:40 AM PROCESSING ANALYST PARATHYROID HORMONE Routine 10/21/2018 10:22 AM PROCESSING ANALYST PHOSPHORUS Routine 10/21/2018 10:22 AM PROCESSING ANALYST MAGNESIUM Routine 10/21/2018 10:22 AM PROCESSING ANALYST IONIZED CALCIUM Routine 10/21/2018 10:22 AM PROCESSING ANALYST BASIC METABOLIC PANEL Routine 10/21/2018 10:22 AM PROCESSING ANALYST ESOPHAGRAM Routine 10/21/2018 9:21 AM PROCESSING ANALYST IONIZED CALCIUM STAT 10/20/2018 8:23 AM PROCESSING ANALYST CONSULT IV THERAPY TEAM Routine 10/20/2018 7:38 AM PROCESSING ANALYST CBC Routine 10/20/2018 6:16 AM PROCESSING ANALYST PHOSPHORUS Routine 10/20/2018 6:16 AM PROCESSING ANALYST MAGNESIUM Routine 10/20/2018 6:16 AM PROCESSING ANALYST BASIC METABOLIC PANEL Routine 10/20/2018 6:16 AM PROCESSING ANALYST CONSULT IV THERAPY TEAM Routine 10/19/2018 10:17 AM PROCESSING ANALYST CBC Routine 10/19/2018 6:18 AM PROCESSING ANALYST PHOSPHORUS Routine 10/19/2018 6:18 AM PROCESSING ANALYST MAGNESIUM Routine 10/19/2018 6:18 AM PROCESSING ANALYST IONIZED CALCIUM STAT 10/19/2018 6:18 AM PROCESSING ANALYST BASIC METABOLIC PANEL Routine 10/19/2018 6:18 AM PROCESSING ANALYST IONIZED CALCIUM STAT 10/18/2018 6:00 PM PROCESSING ANALYST CALCIUM STAT 10/18/2018 6:00 PM PROCESSING ANALYST CBC Routine 10/18/2018 6:10 AM PROCESSING ANALYST PHOSPHORUS Routine 10/18/2018 6:10 AM PROCESSING ANALYST MAGNESIUM Routine 10/18/2018 6:10 AM PROCESSING ANALYST IONIZED CALCIUM STAT 10/18/2018 6:10 AM PROCESSING ANALYST BASIC METABOLIC PANEL Routine 10/18/2018 6:10 AM PROCESSING ANALYST IONIZED CALCIUM STAT 10/17/2018 10:20 PM PROCESSING ANALYST CALCIUM STAT 10/17/2018 10:20 PM PROCESSING ANALYST IONIZED CALCIUM STAT 10/17/2018 6:00 PM PROCESSING ANALYST CALCIUM STAT 10/17/2018 6:00 PM PROCESSING ANALYST PARATHYROID HORMONE Add on 10/17/2018 6:01 AM PROCESSING ANALYST CBC Routine 10/17/2018 6:01 AM PROCESSING ANALYST PHOSPHORUS Routine 10/17/2018 6:01 AM PROCESSING ANALYST MAGNESIUM Routine 10/17/2018 6:01 AM PROCESSING ANALYST ALBUMIN Routine 10/17/2018 6:01 AM PROCESSING ANALYST BASIC METABOLIC PANEL Routine 10/17/2018 6:01 AM PROCESSING ANALYST CALCIUM STAT 10/17/2018 6:00 AM PROCESSING ANALYST IONIZED CALCIUM STAT 10/17/2018 5:59 AM PROCESSING ANALYST IONIZED CALCIUM STAT 10/16/2018 10:00 PM PROCESSING ANALYST CALCIUM STAT 10/16/2018 10:00 PM PROCESSING ANALYST IONIZED CALCIUM STAT 10/16/2018 2:18 PM PROCESSING ANALYST CALCIUM STAT 10/16/2018 2:18 PM PROCESSING ANALYST PANOREX EXAM Routine 10/16/2018 11:25 AM PROCESSING ANALYST CONSULT IV THERAPY TEAM Routine 10/16/2018 8:56 AM PROCESSING ANALYST CBC Routine 10/16/2018 6:07 AM PROCESSING ANALYST PHOSPHORUS Routine 10/16/2018 6:07 AM PROCESSING ANALYST MAGNESIUM Routine 10/16/2018 6:07 AM PROCESSING ANALYST IONIZED CALCIUM Add on 10/16/2018 6:07 AM PROCESSING ANALYST BASIC METABOLIC PANEL Routine 10/16/2018 6:07 AM PROCESSING ANALYST 25-OH VITAMIN D (D2 + D3) Specimen 10/15/2018 in Lab 8:24 PM PROCESSING ANALYST IONIZED CALCIUM STAT 10/15/2018 8:24 PM PROCESSING ANALYST CALCIUM STAT 10/15/2018 8:24 PM PROCESSING ANALYST CONSULT IV THERAPY TEAM Routine 10/15/2018 7:35 PM PROCESSING ANALYST IONIZED CALCIUM STAT 10/15/2018 11:08 AM PROCESSING ANALYST CALCIUM Routine 10/15/2018 11:08 AM PROCESSING ANALYST PARATHYROID HORMONE Add on 10/15/2018 3:15 AM PROCESSING ANALYST CBC Routine 10/15/2018 3:15 AM PROCESSING ANALYST PHOSPHORUS Routine 10/15/2018 3:15 AM PROCESSING ANALYST MAGNESIUM Routine 10/15/2018 3:15 AM PROCESSING ANALYST IONIZED CALCIUM Routine 10/15/2018 3:15 AM PROCESSING ANALYST BASIC METABOLIC PANEL Routine 10/15/2018 3:15 AM PROCESSING ANALYST CALCIUM Specimen 10/14/2018 in Lab 10:53 PM PROCESSING ANALYST IONIZED CALCIUM 10/14/2018 10:45 PM PROCESSING ANALYST CONSULT IV THERAPY TEAM Routine 10/14/2018 10:32 PM PROCESSING ANALYST IONIZED CALCIUM STAT 10/14/2018 6:15 PM PROCESSING ANALYST CALCIUM Routine 10/14/2018 6:15 PM PROCESSING ANALYST CALCIUM Routine 10/14/2018 3:38 PM PROCESSING ANALYST IONIZED CALCIUM STAT 10/14/2018 10:30 AM PROCESSING ANALYST CALCIUM STAT 10/14/2018 10:30 AM PROCESSING ANALYST IONIZED CALCIUM STAT 10/14/2018 7:20 AM PROCESSING ANALYST CONSULT IV THERAPY TEAM Routine 10/14/2018 6:34 AM PROCESSING ANALYST CBC Routine 10/14/2018 5:47 AM PROCESSING ANALYST PHOSPHORUS Routine 10/14/2018 5:47 AM PROCESSING ANALYST MAGNESIUM Routine 10/14/2018 5:47 AM PROCESSING ANALYST BASIC METABOLIC PANEL Routine 10/14/2018 5:47 AM PROCESSING ANALYST IONIZED CALCIUM STAT 10/13/2018 11:30 PM PROCESSING ANALYST CALCIUM Routine 10/13/2018 11:30 PM PROCESSING ANALYST CONSULT IV THERAPY TEAM Routine 10/13/2018 10:57 PM PROCESSING ANALYST ABDOMEN AP ONLY Routine 10/13/2018 3:15 PM PROCESSING ANALYST PARATHYROID HORMONE STAT 10/13/2018 3:00 PM PROCESSING ANALYST IONIZED CALCIUM STAT 10/13/2018 3:00 PM PROCESSING ANALYST CALCIUM Routine 10/13/2018 3:00 PM PROCESSING ANALYST SURGICAL PATHOLOGY 10/13/2018 12:12 PM PROCESSING ANALYST BLOOD TYPE CONFIRMATION - STAT 10/13/2018 ORDER ONLY IF REQUESTED 8:35 AM PROCESSING ANALYST BY LAB TYPE & CROSSMATCH STAT 10/13/2018 8:30 AM PROCESSING ANALYST TISSUE TRANSFER MUSCLE/ 10/13/2018 Laryngeal mass MYOCUTANEOUS/ 8:00 AM PROCESSING ANALYST Mass of larynx FASCIOCUTANEOUS FLAP WITH VASCULAR PEDICLE - HEAD/ NECK DIRECT LARYNGOSCOPY 10/13/2018 Laryngeal mass DIAGNOSTIC 8:00 AM PROCESSING ANALYST Mass of larynx THYROIDECTOMY TOTAL 10/13/2018 Laryngeal mass 8:00 AM PROCESSING ANALYST Mass of larynx CERVICAL LYMPHADENECTOMY 10/13/2018 Laryngeal mass 8:00 AM PROCESSING ANALYST Mass of larynx LARYNGECTOMY TOTAL 10/13/2018 Laryngeal mass 8:00 AM PROCESSING ANALYST Mass of larynx CONSULT IV THERAPY TEAM Routine 10/10/2018 8:14 AM PROCESSING ANALYST 2-D + DOPPLER Routine 10/08/2018 ECHOCARDIOGRAM 11:14 AM PROCESSING ANALYST ECG 12-LEAD Routine 10/07/2018 4:29 PM PROCESSING ANALYST SWALLOW MOTION SERIES Routine 10/07/2018 8:48 AM PROCESSING ANALYST NM PET SCAN TORSO Routine 10/06/2018 (SKULL-THIGHS) 1:[address] CHEST W CONTRAST Routine 10/06/2018 10:[address] NECK W/CONTRAST Routine 10/06/2018 10:14 AM PROCESSING ANALYST POC GLUCOSE 10/06/2018 9:43 AM PROCESSING ANALYST THYROID STIMULATING Routine 10/06/2018 HORMONE-TSH 8:45 AM PROCESSING ANALYST PREALBUMIN Routine 10/06/2018 8:45 AM PROCESSING ANALYST PHOSPHORUS Add on 10/06/2018 8:45 AM PROCESSING ANALYST MAGNESIUM Add on 10/06/2018 8:45 AM PROCESSING ANALYST ALBUMIN Routine 10/06/2018 8:45 AM PROCESSING ANALYST BASIC METABOLIC PANEL Add on 10/06/2018 8:45 AM PROCESSING ANALYST CBC STAT 10/05/2018 4:41 PM PROCESSING ANALYST BASIC METABOLIC PANEL STAT 10/05/2018 4:41 PM PROCESSING ANALYST SURGICAL PATHOLOGY 10/05/2018 4:02 PM PROCESSING ANALYST CONSULT IV THERAPY TEAM Routine 10/05/2018 2:08 PM PROCESSING ANALYST TELEMETRY STRIPS-SCAN 10/05/2018 12:00 AM PROCESSING ANALYST ECG-SCAN 10/05/2018 12:00 AM PROCESSING ANALYST EXERCISE OXIMETRY-SCAN 10/05/2018 12:00 AM PROCESSING ANALYST in this encounter Results * IONIZED CALCIUM (10/22/2018 5:40 AM PROCESSING ANALYST) Ionized Calcium 1.13 1.0 - 1.3 MMOL/L [facility] Specimen Blood Performing Organization Address [facility] Phone Number [facility] [address] [place] [address] * CALCIUM (10/22/2018 5:40 AM PROCESSING ANALYST) Calcium 9.1 8.5 - 10.6 MG/DL [facility] Specimen Blood Performing Organization Address [facility] Phone Number [facility] [address] [place] [address] * CBC (10/22/2018 5:40 AM PROCESSING ANALYST) White Blood Cells 5.7 4.5 - 11.0 [...] MAIN LAB Specimen Blood Performing Organization Address [facility] Phone Number [facility] [address] [place] [address] * IONIZED CALCIUM (10/21/2018 10:22 AM PROCESSING ANALYST) Ionized Calcium 1.14 1.0 - 1.3 MMOL/L MAIN LAB Specimen Blood Performing Organization Address [facility] Phone Number [facility] LAB [address] [place] [phone] * PARATHYROID HORMONE (10/21/2018 10:22 AM PROCESSING ANALYST) PTH Hormone 11.3 10 - 65 PG/ML MAIN LAB Specimen Blood Performing Organization Address [facility] Phone Number MAIN LAB [address] [place] [address] * PHOSPHORUS (10/21/2018 10:22 AM PROCESSING ANALYST) Phosphorus 5.4 (H)Comment: NOTE NEW 2.0 - 4.5 MG/DL MAIN LAB REFERENCE RANGES Specimen Blood Performing Organization Address [facility] Phone Number MA[facility] LAB [address] [place] [address] * MAGNESIUM (10/21/2018 10:22 AM PROCESSING ANALYST) Magnesium 2.1 1.6 - 2.6 mg/dL MAIN LAB Specimen Blood Performing Organization Address [facility] Phone Number MA[facility] LAB [address] [place] [address] * BASIC METABOLIC PANEL (10/21/2018 10:22 AM PROCESSING ANALYST) Sodium 138 137 - 147 MMOL/L MAIN LAB Potassium 3.7 3.5 - 5.1 MMOL/L MAIN LAB Chloride 98 98 - 110 [...] Organization Address City/State/Zipcode Phone Number MAIN LAB [address] [place] [address] * ESOPHAGRAM (10/21/2018 9:21 AM PROCESSING ANALYST) Impressions Performed At Small linear collection of [...] Interface, Radiant Results - 10/21/2018 11:55 AM PROCESSING ANALYST ESOPHAGRAM CLINICAL HISTORY: 58-year-old female, status post [...] on 10/21/2018 9:36 AM. Performing Organization Address [facility] Phone Number RAD RESULTS * IONIZED CALCIUM (10/20/2018 8:23 AM PROCESSING ANALYST) Ionized Calcium 1.12 1.0 - 1.3 MMOL/L MAIN LAB Specimen Blood Performing Organization Address [facility] Phone Number MAIN LAB [address] [place] [address] * CBC (10/20/2018 6:16 AM PROCESSING ANALYST) White Blood Cells 7.7 4.5 - 11.0 K/UL [facility] RBC 3.35 (L) 4.0 - 5.0 M/UL [facility] Hemoglobin 10.7 (L) 12.0 - 15.0 GM/DL MAIN LAB Hematocrit 31.7 (L) 36 - 45 % MAIN LAB MCV 94.9 80 - 100 FL [facility]IN [facility] MCH 32.1 26 - 34 PG [facility] MCHC 33.8 32.0 - 36.0 G/DL MAIN LAB RDW 13.0 11 - 15 % MAIN LAB Platelet Count 424 (H) 150 - 400 K/UL [facility] MPV 7.7 7 - 11 FL MAIN LAB Specimen Blood Performing Organization Address [facility] Phone Number MAIN LAB [address] [place] [address] * PHOSPHORUS (10/20/2018 6:16 AM PROCESSING ANALYST) Phosphorus 4.9 (H)Comment: NOTE NEW 2.0 - 4.5 MG/DL [facility]IN [facility] REFERENCE RANGES Specimen Blood Performing Organization Address [facility] Phone Number MAIN LAB [address] [place] [address] * MAGNESIUM (10/20/2018 6:16 AM PROCESSING ANALYST) Magnesium 2.3 1.6 - 2.6 mg/dL MAIN LAB Specimen Blood Performing Organization Address [facility] Phone Number MAIN LAB [address] [place] [address] * BASIC METABOLIC PANEL (10/20/2018 6:16 AM PROCESSING ANALYST) Sodium 137 137 - 147 MMOL/L MAIN LAB Potassium 3.8 3.5 - 5.1 MMOL/L MAIN LAB Chloride 100 98 - 110 [...] for questions. Specimen Blood Performing Organization Address City/[facility]/Zipcode Phone Number MAIN LAB [address] [place] [address] * CBC (10/19/2018 6:18 AM PROCESSING ANALYST) White Blood Cells 7.4 4.5 - 11.0 K/UL [facility] RBC 3.46 (L) 4.0 - 5.0 M/UL [facility]IN [facility] Hemoglobin 11.3 (L) 12.0 - 15.0 GM/DL MAIN LAB Hematocrit 32.8 (L) 36 - [...] MAIN LAB Specimen Blood Performing Organization Address [facility] Phone Number [facility] LAB [address] [place] [address] * PHOSPHORUS (10/19/2018 6:18 AM PROCESSING ANALYST) Phosphorus 5.3 (H)Comment: NOTE NEW 2.0 - 4.5 MG/DL [facility]IN [facility] REFERENCE RANGES Specimen Blood Performing Organization Address City/[facility]/Zipcode Phone Number MAIN LAB [address] [place] [address] * MAGNESIUM (10/19/2018 6:18 AM PROCESSING ANALYST) Magnesium 2.0 1.6 - 2.6 mg/dL [facility]IN [facility] Specimen Blood Performing Organization Address [facility] Phone Number MA[facility] LAB [address] [place] [address] * BASIC METABOLIC PANEL (10/19/2018 6:18 AM PROCESSING ANALYST) Sodium 137 137 - 147 MMOL/L [facility] [...] for questions. Specimen Blood Performing Organization Address [facility] Phone Number MA[facility] LAB [address] [place] [address] * IONIZED CALCIUM (10/19/2018 6:18 AM PROCESSING ANALYST) Ionized Calcium 1.02 1.0 - 1.3 MMOL/L [facility] Specimen Blood Performing Organization Address City/[facility]/Zipcode Phone Number MAIN LAB [address] [place] [address] * IONIZED CALCIUM (10/18/2018 6:00 PM PROCESSING ANALYST) Ionized Calcium 1.08 1.0 - 1.3 MMOL/L [facility] Specimen Blood Performing Organization Address City/[facility]/Zipcode Phone Number MAIN LAB [address] [place] [address] * CALCIUM (10/18/2018 6:00 PM PROCESSING ANALYST) Calcium 9.2 8.5 - 10.6 MG/DL [facility] Specimen Blood Performing Organization Address [facility] Phone Number [facility] [address] [place] [address] * IONIZED CALCIUM (10/18/2018 6:10 AM PROCESSING ANALYST) Ionized Calcium 1.12 1.0 - 1.3 MMOL/L [facility] Specimen Blood Performing Organization Address [facility] Phone Number [facility] [address] [place] [phone] * PHOSPHORUS (10/18/2018 6:10 AM PROCESSING ANALYST) Phosphorus 4.8 (H)Comment: NOTE NEW 2.0 - 4.5 MG/DL [facility] REFERENCE RANGES Specimen Blood Performing Organization Address [facility] Phone Number [facility] [address] [place] [address] * MAGNESIUM (10/18/2018 6:10 AM PROCESSING ANALYST) Magnesium 1.8 1.6 - 2.6 mg/dL [facility]IN [facility] Specimen Blood Performing Organization Address [facility] Phone Number [facility] [address] [place] [phone] * BASIC METABOLIC PANEL (10/18/2018 6:10 AM PROCESSING ANALYST) Sodium 136 (L) 137 - 147 MMOL/L [...] for questions. Specimen Blood Performing Organization Address City/[facility]/Zipcode Phone Number MAIN LAB [address] [place] [address] * CBC (10/18/2018 6:10 AM PROCESSING ANALYST) White Blood Cells 7.8 4.5 - 11.0 [...] MAIN LAB Specimen Blood Performing Organization Address [facility] Phone Number MA[facility] LAB [address] [place] [address] * IONIZED CALCIUM (10/17/2018 10:20 PM PROCESSING ANALYST) Ionized Calcium 1.10 1.0 - 1.3 MMOL/L MAIN LAB Specimen Blood Performing Organization Address [facility] Phone Number MA[facility] LAB [address] [place] [address] * CALCIUM (10/17/2018 10:20 PM PROCESSING ANALYST) Calcium 8.8 8.5 - 10.6 MG/DL MAIN LAB Specimen Blood Performing Organization Address [facility] Phone Number MA[facility] LAB [address] [place] [address] * IONIZED CALCIUM (10/17/2018 6:00 PM PROCESSING ANALYST) Ionized Calcium 1.15 1.0 - 1.3 MMOL/L MAIN LAB Specimen Blood Performing Organization Address City/[facility]/Zipcode Phone Number MAIN LAB [address] [place] [address] * CALCIUM (10/17/2018 6:00 PM PROCESSING ANALYST) Calcium 9.1 8.5 - 10.6 MG/DL MAIN LAB Specimen Blood Performing Organization Address [facility] Phone Number MA[facility] LAB [address] [place] [address] * PARATHYROID HORMONE (10/17/2018 6:01 AM PROCESSING ANALYST) PTH Hormone 8.1 (L) 10 - 65 PG/ML [facility]IN [facility] Performing Organization Address [facility] Phone Number [facility] [address] [place] [address] * ALBUMIN (10/17/2018 6:01 AM PROCESSING ANALYST) Albumin 3.6 3.5 - 5.0 G/DL [facility] Specimen Blood Performing Organization Address [facility] Phone Number [facility] [address] [place] [address] * PHOSPHORUS (10/17/2018 6:01 AM PROCESSING ANALYST) Phosphorus 4.7 (H)Comment: NOTE NEW 2.0 - 4.5 MG/DL [facility] REFERENCE RANGES Specimen Blood Performing Organization Address [facility] Phone Number [facility] [address] [place] [address] * MAGNESIUM (10/17/2018 6:01 AM PROCESSING ANALYST) Magnesium 2.0 1.6 - 2.6 mg/dL [facility] Specimen Blood Performing Organization Address [facility] Phone Number [facility] [address] [place] [address] * BASIC METABOLIC PANEL (10/17/2018 6:01 AM PROCESSING ANALYST) Sodium 137 137 - 147 MMOL/L [facility] [...] for questions. Specimen Blood Performing Organization Address City/[facility]/Zipcode Phone Number MAIN LAB [address] [place] [phone] * CBC (10/17/2018 6:01 AM PROCESSING ANALYST) White Blood Cells 9.3 4.5 - 11.0 K/UL [facility] RBC 3.53 (L) 4.0 - 5.0 M/UL [facility] Hemoglobin 11.3 (L) 12.0 - 15.0 GM/DL [facility] Hematocrit 33.6 (L) 36 - 45 % [facility] MCV 95.4 80 - 100 FL [facility] MCH 32.0 26 - 34 PG [facility] MCHC 33.6 32.0 - 36.0 G/DL MAIN LAB RDW 12.8 11 - 15 % [facility] MAIN [facility] Platelet Count 375 150 - 400 K/UL MAIN LAB MPV 8.0 7 - 11 FL [facility]IN [facility] Specimen Blood Performing Organization Address [facility] Phone Number MAIN LAB [address] [place] [address] * CALCIUM (10/17/2018 6:00 AM PROCESSING ANALYST) Calcium 8.3 (L) 8.5 - 10.6 MG/DL MAIN LAB Specimen Blood Performing Organization Address [facility] Phone Number MAIN LAB [address] [place] [address] * IONIZED CALCIUM (10/17/2018 5:59 AM PROCESSING ANALYST) Ionized Calcium 1.05 1.0 - 1.3 MMOL/L MAIN LAB Specimen Blood Performing Organization Address [facility] Phone Number MA[facility] LAB [address] [place] [address] * IONIZED CALCIUM (10/16/2018 10:00 PM PROCESSING ANALYST) Ionized Calcium 1.00 1.0 - 1.3 MMOL/L MAIN LAB Specimen Blood Performing Organization Address [facility] Phone Number MA[facility] LAB [address] [place] [address] * CALCIUM (10/16/2018 10:00 PM PROCESSING ANALYST) Calcium 7.7 (L) 8.5 - 10.6 MG/DL [facility] Specimen Blood Performing Organization Address [facility] Phone Number [facility] [address] [place] [address] * CALCIUM (10/16/2018 2:18 PM PROCESSING ANALYST) Calcium 8.4 (L) 8.5 - 10.6 MG/DL [facility] Specimen Blood Performing Organization Address [facility] Phone Number [facility] [address] [place] [address] * IONIZED CALCIUM (10/16/2018 2:18 PM PROCESSING ANALYST) Ionized Calcium 1.02 1.0 - 1.3 MMOL/L [facility] Specimen Blood Performing Organization Address [facility] Phone Number [facility] [address] [place] [address] * PANOREX EXAM (10/16/2018 11:25 AM PROCESSING ANALYST) Impressions Performed At Findings/Impression: [facility] RAD RESULTS [...] Interface, Radiant Results - 10/16/2018 11:49 AM PROCESSING ANALYST PANOREX EXAM Clinical Indication: pre-radiation evaluation. Comparison: [...] on 10/16/2018 11:43 AM. Performing Organization Address [facility] Phone Number RAD RESULTS * IONIZED CALCIUM (10/16/2018 6:07 AM PROCESSING ANALYST) Ionized Calcium 1.03 1.0 - 1.3 MMOL/L MAIN LAB Performing Organization Address [facility] Phone Number MAIN LAB [address] [place] [address] * PHOSPHORUS (10/16/2018 6:07 AM PROCESSING ANALYST) Phosphorus 2.7Comment: NOTE NEW REFERENCE 2.0 - 4.5 MG/DL [facility] MAIN [facility] RANGES Specimen Blood Performing Organization Address [facility] Phone Number MAIN LAB [address] [place] [address] * MAGNESIUM (10/16/2018 6:07 AM PROCESSING ANALYST) Magnesium 1.8 1.6 - 2.6 mg/dL [facility] Specimen Blood Performing Organization Address [facility] Phone Number MAIN LAB [address] [place] [address] * BASIC METABOLIC PANEL (10/16/2018 6:07 AM PROCESSING ANALYST) Sodium 139 137 - 147 MMOL/L [facility] [...] for questions. Specimen Blood Performing Organization Address [facility] Phone Number MA[facility] LAB [address] [place] [address] * CBC (10/16/2018 6:07 AM PROCESSING ANALYST) White Blood Cells 8.2 4.5 - 11.0 [...] MAIN LAB Specimen Blood Performing Organization Address [facility] Phone Number [facility] [address] [place] [address] * CALCIUM (10/15/2018 8:24 PM PROCESSING ANALYST) Calcium 7.8 (L) 8.5 - 10.6 MG/DL [facility] Specimen Blood Performing Organization Address [facility] Phone Number [facility] [address] [place] [address] * IONIZED CALCIUM (10/15/2018 8:24 PM PROCESSING ANALYST) Ionized Calcium 0.96 (L) 1.0 - 1.3 MMOL/L [facility] Specimen Blood Performing Organization Address [facility] Phone Number [facility] [address] [place] [address] * 25-OH VITAMIN D (D2 + D3) (10/15/2018 8:24 PM PROCESSING ANALYST) Vitamin D(25-OH)Total 9.1 (L) 30 - 80 NG/ML [facility] Specimen Blood Performing Organization Address [facility] Phone Number MA[facility] LAB [address] [place] [address] * IONIZED CALCIUM (10/15/2018 11:08 AM PROCESSING ANALYST) Ionized Calcium 0.98 (L) 1.0 - 1.3 MMOL/L [facility] Specimen Blood Performing Organization Address [facility] Phone Number [facility] [address] [place] [address] * CALCIUM (10/15/2018 11:08 AM PROCESSING ANALYST) Calcium 7.8 (L) 8.5 - 10.6 MG/DL MAIN LAB Specimen Blood Performing Organization Address [facility] Phone Number MA[facility] [address] [place] [address] * PARATHYROID HORMONE (10/15/2018 3:15 AM PROCESSING ANALYST) PTH Hormone 4.0 (L) 10 - 65 PG/ML [facility]IN [facility] Performing Organization Address [facility] Phone Number MAIN LAB [address] [place] [address] * IONIZED CALCIUM (10/15/2018 3:15 AM PROCESSING ANALYST) Ionized Calcium 0.76 (L) 1.0 - 1.3 MMOL/L MAIN LAB Specimen Blood Performing Organization Address [facility] Phone Number MAIN LAB [address] [place] [address] * PHOSPHORUS (10/15/2018 3:15 AM PROCESSING ANALYST) Phosphorus 2.8Comment: NOTE NEW REFERENCE 2.0 - 4.5 MG/DL MAIN LAB RANGES Specimen Blood Performing Organization Address [facility] Phone Number MAIN LAB [address] [place] [address] * MAGNESIUM (10/15/2018 3:15 AM PROCESSING ANALYST) Magnesium 1.9 1.6 - 2.6 mg/dL MAIN LAB Specimen Blood Performing Organization Address [facility] Phone Number MAIN LAB [address] [place] [address] * BASIC METABOLIC PANEL (10/15/2018 3:15 AM PROCESSING ANALYST) Sodium 138 137 - 147 MMOL/L [facility] MAIN LAB Potassium 4.0 3.5 - 5.1 MMOL/L MAIN LAB Chloride 105 98 - 110 MMOL/L [facility] MAIN LAB CO2 26 21 - 30 MMOL/L [facility] MAIN LAB Anion Gap 7 3 - 12 MAIN LAB Glucose 104 (H) 70 - 100 MG/DL MAIN LAB Blood Urea Nitrogen 10 7 - 25 MG/DL [facility] MAIN LAB Creatinine 0.77 0.4 - 1.00 MG/DL MAIN LAB Calcium 7.3 (L) 8.5 - 10.6 MG/DL MAIN LAB eGFR [...] for questions. Specimen Blood Performing Organization Address City/[facility]/Zipcode Phone Number MAIN LAB [address] [place] [address] * CBC (10/15/2018 3:15 AM PROCESSING ANALYST) White Blood Cells 9.0 4.5 - 11.0 K/UL MAIN LAB RBC 3.23 (L) 4.0 - 5.0 M/UL MAIN LAB Hemoglobin 10.4 (L) 12.0 - 15.0 GM/DL MAIN LAB Hematocrit 30.5 (L) 36 - 45 % [facility] MAIN LAB MCV 94.4 80 - 100 FL MAIN LAB MCH 32.4 26 - 34 PG MAIN LAB MCHC 34.3 32.0 - 36.0 G/DL MAIN LAB RDW 12.7 11 - 15 % MAIN LAB Platelet Count 232 150 - 400 K/UL MAIN LAB MPV 7.5 7 - 11 FL MAIN LAB Specimen Blood Performing Organization Address City/[facility]/Zipcode Phone Number MAIN LAB [address] [place] [address] * CALCIUM (10/14/2018 10:53 PM PROCESSING ANALYST) Calcium 7.5 (L) 8.5 - 10.6 MG/DL MAIN LAB Specimen Blood Performing Organization Address City/[facility]/Zipcode Phone Number MAIN LAB [address] [place] [address] * IONIZED CALCIUM (10/14/2018 10:45 PM PROCESSING ANALYST) Ionized Calcium 0.71 (L) 1.0 - 1.3 MMOL/L [facility] MAIN LAB Performing Organization Address [facility] Phone Number MAIN LAB [address] [place] [address] * CALCIUM (10/14/2018 6:15 PM PROCESSING ANALYST) Calcium 7.2 (L) 8.5 - 10.6 MG/DL [facility] MAIN LAB Specimen Blood Performing Organization Address [facility] Phone Number MAIN LAB [address] [place] [address] * IONIZED CALCIUM (10/14/2018 6:15 PM PROCESSING ANALYST) Ionized Calcium 0.98 (L) 1.0 - 1.3 MMOL/L MAIN LAB Specimen Blood Performing Organization Address [facility] Phone Number MAIN LAB [address] [place] [address] * CALCIUM (10/14/2018 3:38 PM PROCESSING ANALYST) Calcium 7.6 (L) 8.5 - 10.6 MG/DL MAIN LAB Specimen Blood Performing Organization Address [facility] Phone Number MAIN LAB [address] [place] [address] * CALCIUM (10/14/2018 10:30 AM PROCESSING ANALYST) Calcium 7.8 (L) 8.5 - 10.6 MG/DL MAIN LAB Specimen Blood Performing Organization Address [facility] Phone Number MAIN LAB [address] [place] [address] * IONIZED CALCIUM (10/14/2018 10:30 AM PROCESSING ANALYST) Ionized Calcium 1.04 1.0 - 1.3 MMOL/L MAIN LAB Specimen Blood Performing Organization Address City/[facility]/Zipcode Phone Number MAIN LAB [address] [place] [address] * IONIZED CALCIUM (10/14/2018 7:20 AM PROCESSING ANALYST) Ionized Calcium 0.98 (L) 1.0 - 1.3 MMOL/L MAIN LAB Specimen Blood Performing Organization Address City/[facility]/Zipcode Phone Number MAIN LAB [address] [place] [address] * PHOSPHORUS (10/14/2018 5:47 AM PROCESSING ANALYST) Phosphorus 3.3Comment: NOTE NEW REFERENCE 2.0 - 4.5 MG/DL [facility] MAIN LAB RANGES Specimen Blood Performing Organization Address [facility] Phone Number [facility] MAIN LAB [address] [place] [address] * MAGNESIUM (10/14/2018 5:47 AM PROCESSING ANALYST) Magnesium 2.1 1.6 - 2.6 mg/dL [facility] MAIN LAB Specimen Blood Performing Organization Address [facility] Phone Number [facility] MAIN LAB [address] [place] [address] * BASIC METABOLIC PANEL (10/14/2018 5:47 AM PROCESSING ANALYST) Sodium 140 137 - 147 MMOL/L K[facility] [...] for questions. Specimen Blood Performing Organization Address City/[facility]/Zipcode Phone Number [facility] MAIN LAB [address] [place] [address] * CBC (10/14/2018 5:47 AM PROCESSING ANALYST) White Blood Cells 8.0 4.5 - 11.0 [...] MAIN LAB Specimen Blood Performing Organization Address [facility] Phone Number [facility] MAIN LAB [address] [place] [address] * CALCIUM (10/13/2018 11:30 PM PROCESSING ANALYST) Calcium 7.7 (L) 8.5 - 10.6 MG/DL [facility] MAIN LAB Specimen Blood Performing Organization Address [facility] Phone Number MAIN LAB [address] [place] [address] * IONIZED CALCIUM (10/13/2018 11:30 PM PROCESSING ANALYST) Ionized Calcium 0.99 (L) 1.0 - 1.3 MMOL/L [facility] MAIN LAB Specimen Blood Performing Organization Address [facility] Phone Number MAIN LAB [address] [place] [address] * ABDOMEN AP ONLY (10/13/2018 3:15 PM PROCESSING ANALYST) Impressions Performed At NG tube with tip [...] Interface, Radiant Results - 10/13/2018 5:25 PM PROCESSING ANALYST ABDOMEN AP ONLY Clinical Indication: Female, 58 [...] on 10/13/2018 4:35 PM. Performing Organization Address [facility] Phone Number [facility] RESULTS * CALCIUM (10/13/2018 3:00 PM PROCESSING ANALYST) Calcium 9.1 8.5 - 10.6 MG/DL [facility] LAB Specimen Blood Performing Organization Address [facility] Phone Number [facility] LAB [address] [place] [address] * IONIZED CALCIUM (10/13/2018 3:00 PM PROCESSING ANALYST) Ionized Calcium 1.13 1.0 - 1.3 MMOL/L MAIN LAB Specimen Blood Performing Organization Address [facility] Phone Number [facility] LAB [address] [place] [address] * PARATHYROID HORMONE (10/13/2018 3:00 PM PROCESSING ANALYST) PTH Hormone 6.0 (L) 10 - 65 PG/ML MAIN LAB Specimen Blood Performing Organization Address [facility] Phone Number [facility] LAB [address] [place] [address] * SURGICAL PATHOLOGY (10/13/2018 12:12 PM PROCESSING ANALYST) PATHOLOGY REPORT [facility] [email or web address] Department of Pathology and Laboratory Medicine [address] [place] [address] Surgical Pathology Office:[phone] :[phone] SURGICAL PATHOLOGY REPORT NAME: JACKI LAROSE SURG PATH #: [id number] MR #: [id number] SPECIMEN CLASS: [facility] BILLING #: [id number] ALT ID #:LOCATION: DISCHARGED DATE OF PROCEDURE: [...] A8-A9 Adipose tissue and possible lymph nodes. ([facility]) B. Received in formalin labeled with [...] B10-B11 Fibroadipose tissue and possible lymph nodes. ([facility]) C. Fixative: Fresh Labeled: "Larynx and [...] tip exiting off. 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 C2 Right aryepiglottic fold & right piriform sinus (with inked pyriform sinus margin). C3Left aryepiglottic fold & left piriform sinus (with inked pyriform sinus margin). K1Qeegqcajow, inked vallecular/base of tongue margin. C5 Post cricoid mucosal margin. K9Nrcbu true vocal cord/ventricle/false vocal cord with paraglottic space. C7Left true vocal cord/ventricle/false vocal cord with paraglottic space. B4Eaogqszw commissure. H4Lvnutwnibh and pre-epiglottic space. C09Jndzh to right/left paraglottic space. P68Vcodv to thyroid cartilage (at deepest invasion). S39Icdcr to nearest anterior soft tissue margin. I70Vsfwopr of posterior cricoid cartilage with posterior cricoid area. F39Kgimmce of hyoid bone. D18Oxhaztjctochpq section of skin at tracheostomy site. W54Bugkebckqpxlwm sections from left thyroid. L84Mhlqiotgkrmfok sections from right thyroid. (c) D. Received fresh, labeled with patient's name and "right hypopharynx" is a 6.9 x 0.4 x 0.3 cm white-henson tissue fragment. The specimen is bisected and is submitted entirely for frozen consultation with the remnant placed in cassette D1FS for permanent diagnosis. ([facility]) E. Received fresh, labeled with patient's name and "left hypopharynx" is a 7.5 x 0.4 x 0.3 cm white-henson tissue fragment. The specimen is trisected and is submitted entirely for frozen consultation with the remnant placed in cassette E1FS for permanent diagnosis. ([facility]) F. Received fresh, labeled with patient's name and "base of tongue MM" is a 1.3 x 0.3 x 0.3 cm white-henson tissue fragment. The specimen is submitted entirely for frozen consultation with the remnant placed in cassette F1FS for permanent diagnosis. ([facility]) G. Received fresh, labeled with patient's name and "post cricoid" is a 1.4 x 0.3 x 0.3 cm white-henson tissue fragment. The specimen is submitted entirely for frozen consultation with the remnant placed in cassette G1FS for permanent diagnosis. ([facility]) [facility]/10/13/2018 Intraoperative Consultation: D1FS, mucosa, "right hypopharynx", biopsy: Negative for malignancy E1FS, mucosa, "left hypopharynx", biopsy: Negative for malignancy F1FS, mucosa, "base of tongue MM", biopsy: Negative for malignancy G1FS, mucosa, "post cricoid", biopsy: Negative for malignancy Frozen section performed at the [facility], [place] [address]. Jasmina Rubi MD Performing Organization Address [facility]code Phone Number MAIN LAB [address] [place] [address] * BLOOD TYPE CONFIRMATION - ORDER ONLY IF REQUESTED BY LAB (10/13/2018 8:35 AM PROCESSING ANALYST) ABO/RH(D) A POS MAIN LAB Specimen Blood Performing Organization Address [facility] Phone Number MAIN LAB [address] [place] [address] * TYPE & CROSSMATCH (10/13/2018 8:30 AM PROCESSING ANALYST) Units Ordered 2 MAIN LAB Crossmatch Expires 10/16/2018 [facility] MAIN LAB Record Check 2ND TYPE REQUIRED MAIN LAB ABO/RH(D) A POS MAIN LAB Antibody Screen NEG MAIN LAB Electronic Crossmatch YES MAIN LAB Specimen Blood Performing Organization Address City/State/Zipcode Phone Number [facility] LAB [address] [place] [address] * 2-D + DOPPLER ECHOCARDIOGRAM (10/08/2018 11:14 AM PROCESSING ANALYST) BSA 1.9 m2 OTHER OUTSIDE LAB LVIDD [...] 34 OTHER OUTSIDE LAB Cardiology Ultrasound Siemens [id number] OTHER OUTSIDE LAB Machine Left Ventricle Mass [...] * SWALLOW MOTION SERIES (10/07/2018 8:48 AM PROCESSING ANALYST) Impressions Performed At 1. Laryngeal penetration with [...] Interface, Radiant Results - 10/07/2018 11:27 AM PROCESSING ANALYST SWALLOW MOTION SERIES CLINICAL HISTORY: Female, 58 [...] PET SCAN TORSO (SKULL-THIGHS) (10/06/2018 1:21 PM PROCESSING ANALYST) Impressions Performed At 1.Hypermetabolic left glottic mass, [...] Interface, Radiant Results - 10/06/2018 5:08 PM PROCESSING ANALYST PET/CT NECK, CHEST, ABDOMEN AND PELVIS RADIOPHARMACEUTICAL: [...] * CT NECK W/CONTRAST (10/06/2018 10:14 AM PROCESSING ANALYST) Impressions Performed At 1. Interval tracheostomy and [...] Interface, Radiant Results - 10/06/2018 11:[address] Neck with Contrast Clinical Indication: Female, [...] CT CHEST W CONTRAST (10/06/2018 10:14 AM PROCESSING ANALYST) Impressions Performed At 1. Subcutaneous air and [...] Interface, Radiant Results - 10/06/2018 10:[address] CHEST W CONTRAST INDICATION: Laryngeal mass [...] AM. Performing Organization Address City/State/Zipcode Phone Number RAD RESULTS * POC GLUCOSE (10/06/2018 9:43 AM PROCESSING ANALYST) Glucose, POC 83 70 - 100 MG/DL [facility] MAIN LAB Performing Organization Address City/State/Zipcode Phone Number MAIN LAB [address] [place] [address] * PHOSPHORUS (10/06/2018 8:45 AM PROCESSING ANALYST) Phosphorus 2.6Comment: NOTE NEW REFERENCE 2.0 - 4.5 MG/DL [facility] MAIN LAB RANGES Performing Organization Address [facility] Phone Number [facility] MAIN LAB [address] [place] [address] * MAGNESIUM (10/06/2018 8:45 AM PROCESSING ANALYST) Magnesium 1.8 1.6 - 2.6 mg/dL [facility] MAIN LAB Performing Organization Address [facility] Phone Number [facility] MAIN LAB [address] [place] [address] * BASIC METABOLIC PANEL (10/06/2018 8:45 AM PROCESSING ANALYST) Sodium 138 137 - 147 MMOL/L K[facility] [...] Clinical Pharmacist for questions. Performing Organization Address [facility] Phone Number [facility] MAIN LAB [address] [place] [address] * THYROID STIMULATING HORMONE-TSH (10/06/2018 8:45 AM PROCESSING ANALYST) TSH 0.680 0.35 - 5.00 MCU/ML [facility] MAIN LAB Specimen Blood Performing Organization Address [facility] Phone Number [facility] MAIN LAB [address] [place] [address] * PREALBUMIN (10/06/2018 8:45 AM PROCESSING ANALYST) Prealbumin 19.0 17 - 34 MG/DL [facility] MAIN LAB Specimen Blood Performing Organization Address [facility] Phone Number [facility] MAIN LAB [address] [place] [address] * ALBUMIN (10/06/2018 8:45 AM PROCESSING ANALYST) Albumin 4.0 3.5 - 5.0 G/DL [facility] MAIN LAB Specimen Blood Performing Organization Address [facility] Phone Number [facility] MAIN LAB [address] [place] [address] * BASIC METABOLIC PANEL (10/05/2018 4:41 PM PROCESSING ANALYST) Sodium 137 137 - 147 MMOL/L K[facility] [...] for questions. Specimen Blood Performing Organization Address [facility] Phone Number [facility] MAIN LAB [address] [place] [address] * CBC (10/05/2018 4:41 PM PROCESSING ANALYST) White Blood Cells 7.2 4.5 - 11.0 [...] LAB RDW 12.7 11 - 15 % [facility] LAB Platelet Count 220 150 - 400 K/UL [facility] LAB MPV 7.7 7 - 11 FL [facility] LAB Specimen Blood Performing Organization Address City/State/Zipcode Phone Number [facility] LAB [address] [place] [address] * SURGICAL PATHOLOGY (10/05/2018 4:02 PM PROCESSING ANALYST) PATHOLOGY REPORT [facility] [email or web address] Department of Pathology and Laboratory Medicine [address] [place] [address] Surgical Pathology Office:[phone] :[phone] SURGICAL PATHOLOGY REPORT NAME: JACKI LAROSE SURG PATH #: [id number] MR #: [id number] SPECIMEN CLASS: [facility] BILLING #: [id number] ALT ID #:LOCATION: [facility] DATE OF PROCEDURE: 10/05/2018 AGE:58 SEX: [...] severe squamous dysplasia. Comment: Pursuant to the Entry Level Chemist Program at the [facility] Pathology Department, selected slides from this case [...] report. +++ +++ Truong Edward MD Resident ksw/10/06/2018 ############################## ############################## ############ Material Received: A: left [...] cell carcinoma. Frozen section performed at the [facility], [address] [place] [address]. Stone Chávez MD Performing Organization Address City/State/Zipcode Phone Number [facility] LAB RESULTS * TELEMETRY STRIPS-SCAN (10/05/2018 12:00 AM PROCESSING ANALYST) Narrative Performed At Ordered by an unspecified provider. * EXERCISE OXIMETRY-SCAN (10/05/2018 12:00 AM PROCESSING ANALYST) Narrative Performed At Ordered by an unspecified provider. * ECG-SCAN (10/05/2018 12:00 AM PROCESSING ANALYST) Narrative Performed At Ordered by an unspecified provider. in this encounter Visit Diagnoses Diagnosis Laryngeal mass Other diseases of larynx Mass of larynx Other diseases of larynx in this encounter Admitting Diagnoses Diagnosis Laryngeal mass Other diseases of larynx in this encounter Administered Medications Action Date Dose Rate Site Medication Order MAR Action 10/22/2018 9:19 AM PROCESSING ANALYST 650 mg acetaminophen (TYLENOL) oral solution Given 650 mg 650 mg, Per NG tube, EVERY 4 HOURS, First dose on Fri10/15/18 at 0800, Until Discontinued, TOTAL ACETAMINOPHEN DOSE NOT TO EXCEED 4GM DAILY, 650 mg Given 10/22/2018 4:27 AM PROCESSING ANALYST 650 mg Given 10/21/2018 10:00 PM PROCESSING ANALYST 10/21/2018 3:19 PM PROCESSING ANALYST 0.25 mg ALPRAZolam (XANAX) tablet 0.25 mg Given 0.25 mg, Oral, TWICE DAILY PRN, Starting Fri10/21/18 at 1427, Until Fri10/22/18 at 1308, Anxiety PO 10/22/2018 9:20 AM PROCESSING ANALYST 875 mg amoxicillin/K clavulanate (AUGMENTIN) Given oral suspension 875 mg 875 mg, Per NG tube, TWICE DAILY, First dose on Fri10/21/18 at 1215, Until Discontinued 875 mg Given 10/21/2018 10:00 PM PROCESSING ANALYST 875 mg Given 10/21/2018 3:19 PM PROCESSING ANALYST 10/22/2018 9:16 AM PROCESSING ANALYST 1 spray antiseptic mucus solvent 120 mL solution Given 1 spray 1 spray, Tracheal Tube, EVERY 2 HOURS WHILE AWAKE, First dose on Fri10/13/18 at 1700, Until Discontinued, Dilute 1:1 with NS prior to administration. And PRN, 1 spray Given 10/21/2018 10:00 PM PROCESSING ANALYST 1 spray Given 10/21/2018 2:30 PM PROCESSING ANALYST 10/13/2018 1:52 PM PROCESSING ANALYST 1 Dose Neck bacitracin topical ointment Given INTRA-PROCEDURE MED, Starting Fri10/13/18 at 1352, Until Fri10/13/18 at 1429, Intra-op 10/21/2018 10:58 PM PROCESSING ANALYST 2,850 mg calcium citrate (CALCITRATE) tablet Given 2,850 mg 2,850 mg, Per NG tube, TWICE DAILY, First dose on Fri10/20/18 at 0900, Until Discontinued, Each tablet delivers 200mg elemental Calcium, 2,850 mg Given 10/21/2018 8:36 AM PROCESSING ANALYST 2,850 mg Given 10/20/2018 8:29 PM PROCESSING ANALYST 10/19/2018 9:01 PM PROCESSING ANALYST 100 mg docusate (COLACE) oral solution 100 mg Given 100 mg, Per NG tube, TWICE DAILY, First dose on Fri10/13/18 at 2100, Until Discontinued, Hold for loose stools, 100 mg Given 10/19/2018 2:39 PM PROCESSING ANALYST 100 mg Given 10/18/2018 9:19 PM PROCESSING ANALYST 10/21/2018 8:54 AM PROCESSING ANALYST 50,000 Units ergocalciferol (vitamin D-2) Given (CALCIFEROL) oral solution 50,000 Units 50,000 Units, Oral, THREE TIMES WEEKLY (Once per day on Fri), First dose on Fri10/16/18 at 1830, Until Discontinued 50,000 Units Given 10/19/2018 2:41 PM PROCESSING ANALYST 50,000 Units Given 10/16/2018 8:22 PM PROCESSING ANALYST 10/22/2018 9:19 AM PROCESSING ANALYST 20 mg famotidine (PEPCID) oral suspension 20 Given mg 20 mg, Per NG tube, TWICE DAILY, First dose on Fri10/13/18 at 2100, Until Discontinued 20 mg Given 10/21/2018 10:00 PM PROCESSING ANALYST 20 mg Given 10/21/2018 8:36 AM PROCESSING ANALYST 10/22/2018 6:11 AM PROCESSING ANALYST 300 mg gabapentin (NEURONTIN) oral solution 300 Given mg 300 mg, Per NG tube, EVERY 8 HOURS, First dose on Fri10/14/18 at 1400, Until Discontinued 300 mg Given 10/21/2018 10:19 PM PROCESSING ANALYST 300 mg Given 10/21/2018 3:19 PM PROCESSING ANALYST 10/22/2018 6:10 AM PROCESSING ANALYST 5,000 Units Abdominal Tissue heparin (porcine) PF syringe 5,000 Units Given 5,000 Units, Subcutaneous, EVERY 8 HOURS, First dose on Fri10/14/18 at 0600, Until Discontinued, NOTE: This is a HIGH ALERT Medication., 5,000 Units Abdominal Tissue Given 10/21/2018 10:19 PM PROCESSING ANALYST 5,000 Units Abdominal Tissue Given 10/21/2018 3:20 PM PROCESSING ANALYST 10/22/2018 6:10 AM PROCESSING ANALYST 125 mcg levothyroxine (SYNTHROID) tablet 125 mcg Given 125 mcg, Per NG tube, DAILY 30MIN BEFORE BREAKFAST, First dose on Fri10/15/18 at 0630, Until Discontinued, Give 1 hour before a meal. If patient is receiving tube feedings, hold tube feed 1hr before and 1hr after dose., 125 mcg Given 10/21/2018 6:35 AM PROCESSING ANALYST 125 mcg Given 10/20/2018 6:13 AM PROCESSING ANALYST 10/13/2018 8:22 AM PROCESSING ANALYST 10 mL Neck lidocaine 1% /EPINEPHrine [id number] Given (buffered) vial INTRA-PROCEDURE MED, Starting Fri10/13/18 at 0822, Until Fri10/13/18 at 1429, Intra-op 10/19/2018 9:01 PM PROCESSING ANALYST 10 mL milk of magnesia (CONC) oral suspension Given 10 mL 10 mL, Per NG tube, AT BEDTIME DAILY, First dose on Fri10/13/18 at 2100, Until Discontinued, Give daily until first bowel movement, then PRN Constipation PO. 10 mL CONC=30 mL MOM, 10 mL Given 10/13/2018 8:06 PM PROCESSING ANALYST 10/16/2018 5:29 PM PROCESSING ANALYST 2 mg morphine injection syringe 2 mg Given 2 mg, Intravenous, EVERY 2 HOURS PRN, Starting Fri10/13/18 at 1609, Until Alexandra 10/22/18 at 1308, Pain Injectable 2 mg Given 10/13/2018 6:38 PM PROCESSING ANALYST 10/19/2018 3:07 PM PROCESSING ANALYST 4 mg ondansetron (ZOFRAN) injection 4 mg Given 4 mg, Intravenous, EVERY 6 HOURS PRN, Starting Fri10/13/18 at 1609, Until Alexandra 10/22/18 at 1308, Nausea/Vomiting Injectable 4 mg Given 10/14/2018 9:14 AM PROCESSING ANALYST 4 mg Given 10/13/2018 6:38 PM PROCESSING ANALYST 10/22/2018 10:35 AM PROCESSING ANALYST 5 mg oxyCODONE (ROXICODONE) oral solution 5 Given mg 5 mg, Per NG tube, EVERY 4 HOURS PRN, Starting Fri10/13/18 at 1609, Until Alexandra 10/22/18 at 1308, Pain PO 5 mg Given 10/20/2018 9:59 AM PROCESSING ANALYST 5 mg Given 10/20/2018 6:22 AM PROCESSING ANALYST pancrelipase 20,000 Units/ sodium bicarbonate 650 mg(#) ([facility] CLOG DESTROYER) for occluded feeding tube cap 1 capsule 1 capsule, Feeding Tube, NEEDED (GANTRY RIGGER FROM RX), Starting Fri10/15/18 at 0720, Until [...] remains occluded following administration., 10/21/2018 10:00 PM PROCESSING ANALYST 40 mg pantoprazole(#) (PROTONIX) suspension 40 Given mg 40 mg, Per NG tube, DAILY, First dose on Fri10/14/18 at 0845, Until Discontinued 40 mg Given 10/20/2018 8:32 PM PROCESSING ANALYST 40 mg Given 10/19/2018 9:02 PM PROCESSING ANALYST 10/21/2018 10:00 PM PROCESSING ANALYST 40 mg pravastatin (PRAVACHOL) tablet 40 mg Given 40 mg, Per NG tube, AT BEDTIME DAILY, First dose on Fri10/14/18 at 2100, Until Discontinued 40 mg Given 10/20/2018 11:40 PM PROCESSING ANALYST 40 mg Given 10/19/2018 9:02 PM PROCESSING ANALYST 10/13/2018 7:32 PM PROCESSING ANALYST 10 mg prochlorperazine (COMPAZINE) injection Given 5-10 mg 5-10 mg, Intravenous, EVERY 6 HOURS PRN, Starting Fri10/09/18 at 2026, Until Fri10/22/18 at 1308, Nausea/Vomiting Injectable, If zofran ineffective, PROTECT FROM LIGHT -- May be given undiluted, or each 5mg may be diluted with 9 mL of NS to facilitate titration., 5 mg Given 10/09/2018 8:55 PM PROCESSING ANALYST 10/21/2018 10:00 PM PROCESSING ANALYST 500 mg QUEtiapine (SEROQUEL) tablet 500 mg Given 500 mg, Per NG tube, AT BEDTIME DAILY, First dose on Fri10/14/18 at 2100, Until Discontinued 500 mg Given 10/20/2018 8:29 PM PROCESSING ANALYST 500 mg Given 10/19/2018 9:01 PM PROCESSING ANALYST 10/21/2018 4:19 AM PROCESSING ANALYST 1 spray sodium chloride (SEA MIST) 0.65 % nasal Given spray 1-2 spray 1-2 spray, Each Nostril, EVERY 2 HOURS, First dose on Fri10/16/18 at 0800, Until Discontinued, While awake (NGT irritation), 2 sprays Given 10/20/2018 11:41 PM PROCESSING ANALYST 1 spray Given 10/20/2018 10:00 PM PROCESSING ANALYST 10/22/2018 7:36 AM PROCESSING ANALYST 100 mg traMADol (ULTRAM) tablet 50-100 mg Given 50-100 mg, Per NG tube, EVERY 4 HOURS PRN, Starting Fri10/13/18 at 2047, Until Fri10/22/18 at 1308, Pain PO, 1st line before oxycodone, Can be used INSTEAD OF oxycodone, 50 mg Given 10/21/2018 3:19 PM PROCESSING ANALYST 100 mg Given 10/20/2018 8:40 PM PROCESSING ANALYST 10/22/2018 9:19 AM PROCESSING ANALYST 37.5 mg venlafaxine (EFFEXOR) tablet 37.5 mg Given 37.5 mg, Per NG tube, TWICE DAILY WITH MEALS, First dose on Fri10/14/18 at 0930, Until Discontinued 37.5 mg Given 10/21/2018 6:06 PM PROCESSING ANALYST 37.5 mg Given 10/21/2018 8:36 AM PROCESSING ANALYST in this encounter
--- OUTSIDE RECORDS SUMMARY | 2018-11-13 11:36 | XMS REPORT | Encounter Summary ---
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] Procedures LA TRACHEOSTOMY PLANNED SEPARATE PROCEDURE TRACHEOSTOMY PLANNED Encounter Details Care Team Description Date Type Department Vinicius Lee MD [address] [place] [address] 10/13/2018 Anesthesia [place] Operating Room Event [address] [place] [address] Anesthesia Record Responsible Anesthesiologist Anesthesia Start Time Anesthesia Stop Time Procedure Name Alek Jocye MD 10/13/18 0758 10/13/18 1432 PRIMARY LARYNGECTOMY TOTAL WITH RADICAL NECK DISSECTION [13781 (CPT)] (Bilateral Neck) Date Time Event Comment 721 AN Equip Check 2017 0753 0757 Out of Pre Procedure 0758 Anes Start 0758 An Start Data 0758 In Room 0806 An Induction The patient was reevaluated immediately before moderate or deep sedation use and before anesthesia induction. 0815 Anesthesia Ready 0815 Quick Note Trach replaced with 7.0 reinforced shiley ETT by surgery team. Axillary temp probe. VS not pulling from electronic device/ entered manually. 0832 an jason now 0832 Antibiotic Given 0840 Proc Start 1030 an jason now 1153 an jason now ETT removed by surgery team. 100% FIO2 prior to removal of ETT. 1155 an jason now ETT in place by surgery team/ +ETCO2 noted 1415 an jason now 1415 An Extubation 1426 an stop data 1432 Handoff to RN I completed my SBAR handoff to the receiving nurse. 1432 An Stop Meds Name Total midazolam (VERSED) 1 mg/mL injection 2 mg fentaNYL PF (SUBLIMAZE) injection 200 mcg lidocaine (2%) 200 mg/10mL Injection 40 mg syringe propofol (DIPRIVAN) 200 mg/ 20 mL 320 mg injection (VIAL) succinylcholine (ANECTINE) injection 20 mg (VIAL) ondansetron (ZOFRAN) injection 4 mg dexamethasone (DECADRON) 4 mg/mL 10 mg injection phenylephrine (MATHEUS-SYNEPHRINE) 0.1 mg/mL 1,300 mcg injection (SYRINGE) dextran 70/hypromellose (GENTEAL TEARS; 2 drop BION TEARS) ophthalmic solution ampicillin/sulbactam (UNASYN) 3 g in 9 g sodium chloride 0.9% (NS) 100 mL IVPB (MB+) methadone(#) (DOLOPHINE) 10 mg/mL 20 mg injection (1 mL vial) ePHEDrine 50 mg/mL 50 mg in sodium 20 mg chloride PF 0.9% 5 mL IV syringe acetaminophen (OFIRMEV) 1,000 mg 1,000 mg injection ampicillin/sulbactam (UNASYN) 1.5 g in 1.5 g sodium chloride 0.9% (NS) 100 mL IVPB (MB+) lactated ringers infusion 1,300 mL electrolyte-A (PLASMA-LYTE A PH 7.4) 1,000 mL infusion albumin 5% infusion (500 mL) 500 mL * Name O2 N2O Inspired Sevoflurane Inspired Sevoflurane * No blood administrations on file. Removal Type Details Placement NG/OG Tube 10/13/18; 1226; Nose; 10 FR; Yes 10/13/18 1226 by Lyle Kern RN Wounds 10/13/18; 1429; Chin to Neck to Chest; 10/13/18 1429 by Erlin, (NOT for Surgical Incision; SUTURES, BACITRACIN GUCCI Alvarenga Pressure OINTMENT Injuries) 10/13/18 1416 by Marcia Smith CRNA Tracheosto 10/05/18; 1545; 6.0; Shiley, Cuffed; 10/05/18 1545 by Anusha my Tube 10/13/18; 1416 GUCCI Bennett 10/15/182120 by Allyn Cowan RN Wounds 10/05/18; 1614; Neck; Surgical Incision; 10/05/18 1614 by Anusha, (NOT for 10/15/18; 2120; Sutures- trach tube in GUCCI Bennett Pressure place Injuries) 10/18/18 0920 by Amadeo Wang RN Jackson 10/13/18; Left; Neck; 19 FR; #2; 10/13/18 0000 by Rona Kern 10/18/18; 0920 GUCCI Alvarenga Drain 10/14/18 1052 by Tova Garces RN Peripheral 10/13/18; 0649; RN; Lower; Wrist; 22 G; 10/13/18 0649 by ANJALI Braxton No; 1; Symptomatic (phlebitis, pain, GUCCI Bernardo leaking, infiltration); 10/14/18; 1052 10/13/18 1416 by Marcia Smith CRNA ETT 10/13/18; 0815; 7mm; 1 insertion 10/13/18 0815 by Sarah, attempt; Auscultation, ETCO2 Detector; Marcia Oliveira CRNA See quick note; 10/13/18; 1416 10/14/18 2159 by Sintia Dee RN Peripheral 10/13/18; 0815; R; Anterior; Wrist; 20 10/13/18 0815 by Sarah, IV G; 3; 10/14/18; 2159 Marcia N, SACK CLEANER 10/14/18 0630 by Lynne Meneses RN Indwelling 10/13/18; 0820; Unit (Comment) (PLACED 10/13/18 0820 by Erlin Urinary INTRAOPERATIVELY); 16 FR; Regular GUCCI Alvarenga Catheter (Two-way) (LATEX FREE SINCE PATIENT HAS A PLASTIC TAPE SENSITIVITY ); 10/14/18; 0630 10/15/18 0733 by Sintia Dee RN Peripheral 10/13/18; 0900; R; Anterior; Foot; 20 G; 10/13/18 0900 by Sarah , IV 2; 10/15/18; 0733 Marcia Oliveira CRNA 10/15/18 0649 by Sintia Dee RN Jackson 10/13/18; 1334; Left, Outer; Neck; 19 10/13/18 1334 by Rona Kern ; #1; 10/15/18; 0649 GUCCI Alvarenga Drain 10/16/18 0800 by Amadeo Wang RN Cale 10/13/18; 1335; Outer, Right; Neck; 19 10/13/18 1335 by Rona Kern FR; #3; 10/16/18; 0800 GUCCI Alvarenga Drain in this encounter Social History Date Tobacco [...] Dose Rate Site Medication Order MAR Action 10/13/2018 1:40 PM DANCE DIRECTOR 1,000 mg acetaminophen (OFIRMEV) injection Given Administer over 15 Minutes, INTRA-PROCEDURE MED, Starting Fri10/13/18 at 1340, Until Fri10/13/18 at 1438, Anesthesia Intra-op 10/13/2018 8:40 AM DANCE DIRECTOR albumin 5% infusion (500 mL) Given - New INTRA-PROCEDURE MED(CONT), Starting Tu Bag 10/13/18 at 0840, Until Fri10/13/18 at 1438, Anesthesia Intra-op 10/13/2018 2:11 PM DANCE DIRECTOR 1.5 g ampicillin/sulbactam (UNASYN) 1.5 g in Given - New sodium chloride 0.9% (NS) 100 mL IVPB Bag (MB+) 100 mL, Administer over 60 Minutes, INTRA-PROCEDURE MED(CONT), Starting Fri10/13/18 at 1411, Until Fri10/13/18 at 1438, Anesthesia Intra-op 10/13/2018 12:22 PM DANCE DIRECTOR 3 g ampicillin/sulbactam (UNASYN) 3 g in Bolus sodium chloride 0.9% (NS) 100 mL IVPB (MB+) 100 mL, Administer over 60 Minutes, INTRA-PROCEDURE MED(CONT), Starting Fri10/13/18 at 0832, Until Fri10/13/18 at 1438, Anesthesia Intra-op 3 g Bolus 10/13/2018 10:26 AM DANCE DIRECTOR 3 g Given - New Bag 10/13/2018 8:32 AM DANCE DIRECTOR 10/13/2018 8:15 AM DANCE DIRECTOR 10 mg dexamethasone (DECADRON) injection Given Intravenous, INTRA-PROCEDURE MED, Starting Fri10/13/18 at 0815, Until Fri10/13/18 at 1438, Anesthesia Intra-op 10/13/2018 8:08 AM DANCE DIRECTOR 2 drops dextran 70/hypromellose (GENTEAL TEARS; Given BION TEARS) ophthalmic solution INTRA-PROCEDURE MED, Starting Fri10/13/18 at 0808, Until Fri10/13/18 at 1438, Anesthesia Intra-op 10/13/2018 12:07 PM DANCE DIRECTOR electrolyte-A (PLASMA-LYTE A PH 7.4) Given - New injection Bag INTRA-PROCEDURE MED(CONT), Starting Fri10/13/18 at 0832, Until Fri10/13/18 at 1438, Anesthesia Intra-op Given - New Bag 10/13/2018 8:32 AM DANCE DIRECTOR 10/13/2018 11:23 AM DANCE DIRECTOR 5 mg ePHEDrine 50 mg/mL 50 mg in sodium Bolus chloride PF 0.9% 5 mL IV syringe 5 mL, INTRA-PROCEDURE MED(CONT), Starting Fri10/13/18 at 1117, Until Fri10/13/18 at 1438, Anesthesia Intra-op 5 mg Given - New Bag 10/13/2018 11:17 AM DANCE DIRECTOR 10 mg Given - New Bag 10/13/2018 9:45 AM DANCE DIRECTOR 10/13/2018 1:32 PM DANCE DIRECTOR 50 mcg fentaNYL citrate PF (SUBLIMAZE) Given injection INTRA-PROCEDURE MED, Starting Fri10/13/18 at 0859, Until Fri10/13/18 at 1438, Anesthesia Intra-op 50 mcg Given 10/13/2018 12:10 PM DANCE DIRECTOR 50 mcg Given 10/13/2018 11:14 AM DANCE DIRECTOR 10/13/2018 11:00 AM DANCE DIRECTOR lactated ringers infusion Given - New 1,000 mL, 1,000 mL, Intravenous, at 20 Bag mL/hr, CONTINUOUS, Starting Fri10/13/18 at 0630, Until Fri10/13/18 at 1610, Pre-Op 1,000 mL 20 mL/hr Given - New Bag 10/13/2018 6:53 AM DANCE DIRECTOR 10/13/2018 8:06 AM DANCE DIRECTOR 40 mg lidocaine (PF) injection Given INTRA-PROCEDURE MED, Starting 10/13/18 at 0806, Until 10/13/18 at 1438, Anesthesia Intra-op 10/13/2018 9:41 AM DANCE DIRECTOR 5 mg methadone(#) (DOLOPHINE) injection Given INTRA-PROCEDURE MED, Starting e 10/13/18 at 0830, Until e 10/13/18 at 1438, Anesthesia Intra-op 5 mg Given 10/13/2018 9:37 AM DANCE DIRECTOR 10 mg Given 10/13/2018 8:30 AM DANCE DIRECTOR 10/13/2018 7:58 AM DANCE DIRECTOR 2 mg midazolam (VERSED) injection Given Intravenous, INTRA-PROCEDURE MED, Starting 10/13/18 at 0758, Until Fri10/13/18 at 1438, Anesthesia Intra-op 10/13/2018 1:52 PM DANCE DIRECTOR 4 mg ondansetron (ZOFRAN) injection Given Intravenous, INTRA-PROCEDURE MED, Starting 10/13/18 at 1352, Until Fri10/13/18 at 1438, Anesthesia Intra-op 10/13/2018 1:32 PM DANCE DIRECTOR 50 mcg phenylephrine in NS injection syringe Given Intravenous, INTRA-PROCEDURE MED, Starting 10/13/18 at 0904, Until Tu10/13/18 at 1438, Anesthesia Intra-op 100 mcg Given 10/13/2018 11:25 AM DANCE DIRECTOR 100 mcg Given 10/13/2018 11:09 AM DANCE DIRECTOR 10/13/2018 1:32 PM DANCE DIRECTOR 20 mg propofol (DIPRIVAN) injection Given INTRA-PROCEDURE MED, Starting e 10/13/18 at 0806, Until e 10/13/18 at 1438, Anesthesia Intra-op 10 mg Given 10/13/2018 11:14 AM DANCE DIRECTOR 50 mg Given 10/13/2018 8:59 AM DANCE DIRECTOR 10/13/2018 8:09 AM DANCE DIRECTOR 20 mg succinylcholine (ANECTINE) injection Given Intravenous, INTRA-PROCEDURE MED, Starting 10/13/18 at 0809, Until Fri10/13/18 at 1438, Anesthesia Intra-op in this encounter
--- OUTSIDE RECORDS SUMMARY | 2018-11-13 11:36 | XMS REPORT | Encounter Summary ---
Author Author [facility] Organization [facility] Address Unknown Phone Unavailable Care Team Providers Care Bridge Engineer Name Role Phone Kelly Olivier RN Unavailable Unavailable Chris Ohara MD PCP Encounter Details Care Team Description Date Type Department Kayli Wyatt MD [address] [place] [address] 10/07/2018 Prep for Case ADMITTING [address] [facility] [place] [address] Social History Date Tobacco Use Types Packs/Day [...]
--- OUTSIDE RECORDS SUMMARY | 2018-11-13 11:38 | XMS REPORT | Encounter Summary ---
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] Procedures MI TRACHEOSTOMY PLANNED SEPARATE PROCEDURE TRACHEOSTOMY PLANNED Encounter Details Care Team Description Date Type Department Kalli Snyder MD [address] [place] [address] TRACHEOSTOMY PLANNED AWAKE TRACHEOSTOMY 10/05/2018 Surgery [facility] Operating Room [address] [place] [address] Social History Date Tobacco Use [...] Taken Vital Sign Reading 10/22/2018 6:30 AM [facility] Blood Pressure 90/49 10/22/2018 6:27 AM [facility] Pulse 89 10/22/2018 5:50 AM [facility] Temperature 36.8 C (98.2 F) - Respiratory Rate - 10/22/2018 6:44 AM [facility] Oxygen Saturation 95% - Inhaled Oxygen - Concentration 10/08/2018 11:15 AM [facility] Weight 76.2 kg (168 lb) 10/08/2018 11:15 AM [facility] Height 170.2 cm (5' 7") 10/08/2018 11:15 AM [facility] Body Mass Index 26.31 in this encounter [...] Associated Diagnosis CBC Routine 10/22/2018 5:40 AM [facility] IONIZED CALCIUM Routine 10/22/2018 5:40 AM [facility] CALCIUM Routine 10/22/2018 5:40 AM [facility] PARATHYROID HORMONE Routine 10/21/2018 10:22 AM [facility] PHOSPHORUS Routine 10/21/2018 10:22 AM [facility] MAGNESIUM Routine 10/21/2018 10:22 AM [facility] IONIZED CALCIUM Routine 10/21/2018 10:22 AM [facility] BASIC METABOLIC PANEL Routine 10/21/2018 10:22 AM [facility] ESOPHAGRAM Routine 10/21/2018 9:21 AM [facility] IONIZED CALCIUM STAT 10/20/2018 8:23 AM [facility] CONSULT IV THERAPY TEAM Routine 10/20/2018 7:38 AM [facility] CBC Routine 10/20/2018 6:16 AM [facility] PHOSPHORUS Routine 10/20/2018 6:16 AM [facility] MAGNESIUM Routine 10/20/2018 6:16 AM [facility] BASIC METABOLIC PANEL Routine 10/20/2018 6:16 AM [facility] CONSULT IV THERAPY TEAM Routine 10/19/2018 10:17 AM [facility] CBC Routine 10/19/2018 6:18 AM [facility] PHOSPHORUS Routine 10/19/2018 6:18 AM [facility] MAGNESIUM Routine 10/19/2018 6:18 AM [facility] IONIZED CALCIUM STAT 10/19/2018 6:18 AM [facility] BASIC METABOLIC PANEL Routine 10/19/2018 6:18 AM [facility] IONIZED CALCIUM STAT 10/18/2018 6:00 PM [facility] CALCIUM STAT 10/18/2018 6:00 PM [facility] CBC Routine 10/18/2018 6:10 AM [facility] PHOSPHORUS Routine 10/18/2018 6:10 AM [facility] MAGNESIUM Routine 10/18/2018 6:10 AM [facility] IONIZED CALCIUM STAT 10/18/2018 6:10 AM [facility] BASIC METABOLIC PANEL Routine 10/18/2018 6:10 AM [facility] IONIZED CALCIUM STAT 10/17/2018 10:20 PM [facility] CALCIUM STAT 10/17/2018 10:20 PM [facility] IONIZED CALCIUM STAT 10/17/2018 6:00 PM [facility] CALCIUM STAT 10/17/2018 6:00 PM [facility] PARATHYROID HORMONE Add on 10/17/2018 6:01 AM [facility] CBC Routine 10/17/2018 6:01 AM [facility] PHOSPHORUS Routine 10/17/2018 6:01 AM [facility] MAGNESIUM Routine 10/17/2018 6:01 AM [facility] ALBUMIN Routine 10/17/2018 6:01 AM [facility] BASIC METABOLIC PANEL Routine 10/17/2018 6:01 AM [facility] CALCIUM STAT 10/17/2018 6:00 AM [facility] IONIZED CALCIUM STAT 10/17/2018 5:59 AM [facility] IONIZED CALCIUM STAT 10/16/2018 10:00 PM [facility] CALCIUM STAT 10/16/2018 10:00 PM [facility] IONIZED CALCIUM STAT 10/16/2018 2:18 PM [facility] CALCIUM STAT 10/16/2018 2:18 PM [facility] PANOREX EXAM Routine 10/16/2018 11:25 AM [facility] CONSULT IV THERAPY TEAM Routine 10/16/2018 8:56 AM [facility] CBC Routine 10/16/2018 6:07 AM [facility] PHOSPHORUS Routine 10/16/2018 6:07 AM [facility] MAGNESIUM Routine 10/16/2018 6:07 AM [facility] IONIZED CALCIUM Add on 10/16/2018 6:07 AM [facility] BASIC METABOLIC PANEL Routine 10/16/2018 6:07 AM [facility] 25-OH VITAMIN D (D2 + D3) Specimen 10/15/2018 in Lab 8:24 PM [facility] IONIZED CALCIUM STAT 10/15/2018 8:24 PM [facility] CALCIUM STAT 10/15/2018 8:24 PM [facility] CONSULT IV THERAPY TEAM Routine 10/15/2018 7:35 PM [facility] IONIZED CALCIUM STAT 10/15/2018 11:08 AM [facility] CALCIUM Routine 10/15/2018 11:08 AM [facility] PARATHYROID HORMONE Add on 10/15/2018 3:15 AM [facility] CBC Routine 10/15/2018 3:15 AM [facility] PHOSPHORUS Routine 10/15/2018 3:15 AM [facility] MAGNESIUM Routine 10/15/2018 3:15 AM [facility] IONIZED CALCIUM Routine 10/15/2018 3:15 AM [facility] BASIC METABOLIC PANEL Routine 10/15/2018 3:15 AM [facility] CALCIUM Specimen 10/14/2018 in Lab 10:53 PM [facility] IONIZED CALCIUM 10/14/2018 10:45 PM [facility] CONSULT IV THERAPY TEAM Routine 10/14/2018 10:32 PM [facility] IONIZED CALCIUM STAT 10/14/2018 6:15 PM [facility] CALCIUM Routine 10/14/2018 6:15 PM [facility] CALCIUM Routine 10/14/2018 3:38 PM [facility] IONIZED CALCIUM STAT 10/14/2018 10:30 AM [facility] CALCIUM STAT 10/14/2018 10:30 AM [facility] IONIZED CALCIUM STAT 10/14/2018 7:20 AM [facility] CONSULT IV THERAPY TEAM Routine 10/14/2018 6:34 AM [facility] CBC Routine 10/14/2018 5:47 AM [facility] PHOSPHORUS Routine 10/14/2018 5:47 AM [facility] MAGNESIUM Routine 10/14/2018 5:47 AM [facility] BASIC METABOLIC PANEL Routine 10/14/2018 5:47 AM [facility] IONIZED CALCIUM STAT 10/13/2018 11:30 PM [facility] CALCIUM Routine 10/13/2018 11:30 PM [facility] CONSULT IV THERAPY TEAM Routine 10/13/2018 10:57 PM [facility] ABDOMEN AP ONLY Routine 10/13/2018 3:15 PM [facility] PARATHYROID HORMONE STAT 10/13/2018 3:00 PM [facility] IONIZED CALCIUM STAT 10/13/2018 3:00 PM [facility] CALCIUM Routine 10/13/2018 3:00 PM [facility] SURGICAL PATHOLOGY 10/13/2018 12:12 PM [facility] BLOOD TYPE CONFIRMATION - STAT 10/13/2018 ORDER ONLY IF REQUESTED 8:35 AM [facility] BY LAB TYPE & CROSSMATCH STAT 10/13/2018 8:30 AM [facility] CONSULT IV THERAPY TEAM Routine 10/10/2018 8:14 AM [facility] 2-D + DOPPLER Routine 10/08/2018 ECHOCARDIOGRAM 11:14 AM [facility] ECG 12-LEAD Routine 10/07/2018 4:29 PM [facility] SWALLOW MOTION SERIES Routine 10/07/2018 8:48 AM [facility] NM PET SCAN TORSO Routine 10/06/2018 (SKULL-THIGHS) 1:[address] CHEST W CONTRAST Routine 10/06/2018 10:[address] NECK W/CONTRAST Routine 10/06/2018 10:14 AM [facility] POC GLUCOSE 10/06/2018 9:43 AM [facility] THYROID STIMULATING Routine 10/06/2018 HORMONE-TSH 8:45 AM [facility] PREALBUMIN Routine 10/06/2018 8:45 AM [facility] PHOSPHORUS Add on 10/06/2018 8:45 AM [facility] MAGNESIUM Add on 10/06/2018 8:45 AM [facility] ALBUMIN Routine 10/06/2018 8:45 AM [facility] BASIC METABOLIC PANEL Add on 10/06/2018 8:45 AM [facility] CBC STAT 10/05/2018 4:41 PM [facility] BASIC METABOLIC PANEL STAT 10/05/2018 4:41 PM [facility] SURGICAL PATHOLOGY 10/05/2018 4:02 PM [facility] DIRECT MICROLARYNGOSCOPY 10/05/2018 Laryngeal mass WITH BIOPSY 3:50 PM [facility] TRACHEOSTOMY PLANNED 10/05/2018 Laryngeal mass 3:50 PM [facility] CONSULT IV THERAPY TEAM Routine 10/05/2018 2:08 PM [facility] TELEMETRY STRIPS-SCAN 10/05/2018 12:00 AM [facility] ECG-SCAN 10/05/2018 12:00 AM [facility] EXERCISE OXIMETRY-SCAN 10/05/2018 12:00 AM [facility] in this encounter Results * IONIZED CALCIUM (10/22/2018 5:40 AM [facility]) Ionized Calcium 1.13 1.0 - 1.3 MMOL/L MAIN LAB Specimen Blood Performing Organization Address [facility] Phone Number [facility] LAB [address] [place] [address] * CALCIUM (10/22/2018 5:40 AM [facility]) Calcium 9.1 8.5 - 10.6 MG/DL [facility] MAIN [facility] Specimen Blood Performing Organization Address [facility] Phone Number [facility] [address] [place] [address] * CBC (10/22/2018 5:40 AM [facility]) White Blood Cells 5.7 4.5 - 11.0 [...] - 36.0 G/DL [facility] MAIN [facility] RDW 12.9 11 - 15 % [facility] Platelet Count 450 (H) 150 - 400 K/UL [facility] MPV 7.6 7 - 11 FL [facility] MAIN [facility] Specimen Blood Performing Organization Address City/[facility] Phone Number [facility] [address] [place] [address] * IONIZED CALCIUM (10/21/2018 10:22 AM [facility]) Ionized Calcium 1.14 1.0 - 1.3 MMOL/L [facility] MAIN [facility] Specimen Blood Performing Organization Address City/[facility] Phone Number [facility] [address] [place] [address] * PARATHYROID HORMONE (10/21/2018 10:22 AM [facility]) PTH Hormone 11.3 10 - 65 PG/ML [facility] MAIN [facility] Specimen Blood Performing Organization Address [facility] Phone Number MAIN LAB [address] [place] [address] * PHOSPHORUS (10/21/2018 10:22 AM [facility]) Phosphorus 5.4 (H)Comment: NOTE NEW 2.0 - 4.5 MG/DL [facility] MAIN [facility] REFERENCE RANGES Specimen Blood Performing Organization Address [facility] Phone Number MAIN LAB [address] [place] [address] * MAGNESIUM (10/21/2018 10:22 AM [facility]) Magnesium 2.1 1.6 - 2.6 mg/dL [facility] MAIN [facility] Specimen Blood Performing Organization Address [facility] Phone Number MAIN LAB [address] [place] [address] * BASIC METABOLIC PANEL (10/21/2018 10:22 AM [facility]) Sodium 138 137 - 147 MMOL/L [facility] [...] Address City/State/Zipcode Phone Number MAIN LAB [address] [place] [address] * ESOPHAGRAM (10/21/2018 9:21 AM [facility]) Impressions Performed At Small linear collection of [...] Interface, Radiant Results - 10/21/2018 11:55 AM [facility] ESOPHAGRAM CLINICAL HISTORY: 58-year-old female, status post [...] on 10/21/2018 9:36 AM. Performing Organization Address City/State/[facility] Phone Number [facility] RAD RESULTS * IONIZED CALCIUM (10/20/2018 8:23 AM [facility]) Ionized Calcium 1.12 1.0 - 1.3 MMOL/L [facility] MAIN [facility] Specimen Blood Performing Organization Address City/[facility] Phone Number MAIN LAB [address] [place] [address] * CBC (10/20/2018 6:16 AM [facility]) White Blood Cells 7.7 4.5 - 11.0 [...] MAIN LAB Specimen Blood Performing Organization Address City/[facility] Phone Number [facility] MA[facility] [address] [place] [address] * PHOSPHORUS (10/20/2018 6:16 AM [facility]) Phosphorus 4.9 (H)Comment: NOTE NEW 2.0 - 4.5 MG/DL [facility] MAIN [facility] REFERENCE RANGES Specimen Blood Performing Organization Address City/[facility]/Zipcode Phone Number MAIN LAB [address] [place] [address] * MAGNESIUM (10/20/2018 6:16 AM [facility]) Magnesium 2.3 1.6 - 2.6 mg/dL [facility] MAIN [facility] Specimen Blood Performing Organization Address City/[facility] Phone Number MAIN LAB [address] [place] [id number] * BASIC METABOLIC PANEL (10/20/2018 6:16 AM [facility]) Sodium 137 137 - 147 MMOL/L [facility] [...] for questions. Specimen Blood Performing Organization Address City/[facility] Phone Number MAIN LAB [address] [place] [address] * CBC (10/19/2018 6:18 AM [facility]) White Blood Cells 7.4 4.5 - 11.0 [...] LAB MCHC 34.5 32.0 - 36.0 G/DL [facility] MAIN [facility] RDW 12.8 11 - 15 % [facility] MAIN [facility] Platelet Count 370 150 - 400 K/UL [facility] MAIN [facility] MPV 7.5 7 - 11 FL [facility] MAIN [facility] Specimen Blood Performing Organization Address [facility] Phone Number [facility] [address] [place] [address] * PHOSPHORUS (10/19/2018 6:18 AM [facility]) Phosphorus 5.3 (H)Comment: NOTE NEW 2.0 - 4.5 MG/DL [facility] MAIN [facility] REFERENCE RANGES Specimen Blood Performing Organization Address City/[facility] Phone Number [facility] MA[facility] [address] [place] [address] * MAGNESIUM (10/19/2018 6:18 AM [facility]) Magnesium 2.0 1.6 - 2.6 mg/dL [facility] MAIN [facility] Specimen Blood Performing Organization Address [facility] Phone Number MAIN LAB [address] [place] [address] * BASIC METABOLIC PANEL (10/19/2018 6:18 AM [facility]) Sodium 137 137 - 147 MMOL/L [facility] MAIN [facility] Potassium 4.2 3.5 - 5.1 MMOL/L [facility]IN [facility] Chloride 102 98 - 110 MMOL/L [facility] MAIN [facility] CO2 25 21 - 30 MMOL/L [facility] MAIN [facility] Anion Gap 10 3 - 12 [facility] MAIN [facility] Glucose 90 70 - 100 MG/DL [facility] MAIN [facility] Blood Urea Nitrogen 19 7 - 25 MG/DL MAIN LAB Creatinine 0.81 0.4 - 1.00 [...] for questions. Specimen Blood Performing Organization Address City/[facility] Phone Number MAIN LAB [address] [place] [address] * IONIZED CALCIUM (10/19/2018 6:18 AM [facility]) Ionized Calcium 1.02 1.0 - 1.3 MMOL/L MAIN LAB Specimen Blood Performing Organization Address [facility] Phone Number MAIN LAB [address] [place] [address] * IONIZED CALCIUM (10/18/2018 6:00 PM [facility]) Ionized Calcium 1.08 1.0 - 1.3 MMOL/L MAIN LAB Specimen Blood Performing Organization Address City/[facility] Phone Number MAIN LAB [address] [place] [address] * CALCIUM (10/18/2018 6:00 PM [facility]) Calcium 9.2 8.5 - 10.6 MG/DL [facility] MAIN [facility] Specimen Blood Performing Organization Address [facility] Phone Number MAIN LAB [address] [place] [address] * IONIZED CALCIUM (10/18/2018 6:10 AM [facility]) Ionized Calcium 1.12 1.0 - 1.3 MMOL/L MAIN LAB Specimen Blood Performing Organization Address City/[facility] Phone Number MAIN LAB [address] [place] [address] * PHOSPHORUS (10/18/2018 6:10 AM [facility]) Phosphorus 4.8 (H)Comment: NOTE NEW 2.0 - 4.5 MG/DL [facility] MAIN [facility] REFERENCE RANGES Specimen Blood Performing Organization Address [facility] Phone Number MAIN LAB [address] [place] [address] * MAGNESIUM (10/18/2018 6:10 AM [facility]) Magnesium 1.8 1.6 - 2.6 mg/dL [facility] MAIN [facility] Specimen Blood Performing Organization Address [facility] Phone Number MAIN LAB [address] [place] [address] * BASIC METABOLIC PANEL (10/18/2018 6:10 AM [facility]) Sodium 136 (L) 137 - 147 MMOL/L [...] for questions. Specimen Blood Performing Organization Address [facility] Phone Number MAIN LAB [address] [place] [address] * CBC (10/18/2018 6:10 AM [facility]) White Blood Cells 7.8 4.5 - 11.0 K/UL [facility] MAIN [facility] RBC 3.54 (L) 4.0 - 5.0 M/UL [facility] MAIN [facility] Hemoglobin 11.4 (L) 12.0 - 15.0 GM/DL [facility] MAIN LAB Hematocrit 33.6 (L) 36 - 45 % [facility] MAIN [facility] MCV 95.0 80 - 100 FL [facility] MAIN LAB MCH 32.2 26 - 34 PG [facility] MAIN [facility] MCHC 33.9 32.0 - 36.0 G/DL [facility] MAIN [facility] RDW 13.1 11 - 15 % [facility] MAIN [facility] Platelet Count 346 150 - 400 K/UL [facility] MAIN [facility] MPV 7.8 7 - 11 FL [facility] MAIN [facility] Specimen Blood Performing Organization Address City/[facility] Phone Number [facility] MAIN [facility] [address] [place] [address] * IONIZED CALCIUM (10/17/2018 10:20 PM [facility]) Ionized Calcium 1.10 1.0 - 1.3 MMOL/L MAIN LAB Specimen Blood Performing Organization Address City/[facility] Phone Number MAIN LAB [address] [place] [address] * CALCIUM (10/17/2018 10:20 PM [facility]) Calcium 8.8 8.5 - 10.6 MG/DL MAIN LAB Specimen Blood Performing Organization Address City/[facility] Phone Number MAIN LAB [address] [place] [address] * IONIZED CALCIUM (10/17/2018 6:00 PM [facility]) Ionized Calcium 1.15 1.0 - 1.3 MMOL/L MAIN LAB Specimen Blood Performing Organization Address City/[facility] Phone Number MAIN LAB [address] [place] [address] * CALCIUM (10/17/2018 6:00 PM [facility]) Calcium 9.1 8.5 - 10.6 MG/DL MAIN LAB Specimen Blood Performing Organization Address City/[facility] Phone Number MAIN LAB [address] [place] [address] * PARATHYROID HORMONE (10/17/2018 6:01 AM [facility]) PTH Hormone 8.1 (L) 10 - 65 PG/ML MAIN LAB Performing Organization Address City/[facility] Phone Number MAIN LAB [address] [place] [address] * ALBUMIN (10/17/2018 6:01 AM [facility]) Albumin 3.6 3.5 - 5.0 G/DL [facility] MAIN [facility] Specimen Blood Performing Organization Address City/[facility] Phone Number [facility] [address] [place] [address] * PHOSPHORUS (10/17/2018 6:01 AM [facility]) Phosphorus 4.7 (H)Comment: NOTE NEW 2.0 - 4.5 MG/DL [facility] MAIN [facility] REFERENCE RANGES Specimen Blood Performing Organization Address [facility] Phone Number [facility] [address] [place] [address] * MAGNESIUM (10/17/2018 6:01 AM [facility]) Magnesium 2.0 1.6 - 2.6 mg/dL [facility] MAIN [facility] Specimen Blood Performing Organization Address [facility] Phone Number MAIN LAB [address] [place] [address] * BASIC METABOLIC PANEL (10/17/2018 6:01 AM [facility]) Sodium 137 137 - 147 MMOL/L [facility] [...] for questions. Specimen Blood Performing Organization Address [facility] Phone Number MAIN LAB [address] [place] [address] * CBC (10/17/2018 6:01 AM [facility]) White Blood Cells 9.3 4.5 - 11.0 [...] - 15 % MAIN LAB Platelet Count 375 150 - 400 K/UL MAIN LAB MPV 8.0 7 - 11 FL MAIN LAB Specimen Blood Performing Organization Address [facility] Phone Number MAIN LAB [address] [place] [address] * CALCIUM (10/17/2018 6:00 AM [facility]) Calcium 8.3 (L) 8.5 - 10.6 MG/DL MAIN LAB Specimen Blood Performing Organization Address [facility] Phone Number MAIN LAB [address] [place] [address] * IONIZED CALCIUM (10/17/2018 5:59 AM [facility]) Ionized Calcium 1.05 1.0 - 1.3 MMOL/L MAIN LAB Specimen Blood Performing Organization Address [facility] Phone Number MAIN LAB [address] [place] [address] * IONIZED CALCIUM (10/16/2018 10:00 PM [facility]) Ionized Calcium 1.00 1.0 - 1.3 MMOL/L MAIN LAB Specimen Blood Performing Organization Address [facility] Phone Number MAIN LAB [address] [place] [address] * CALCIUM (10/16/2018 10:00 PM [facility]) Calcium 7.7 (L) 8.5 - 10.6 MG/DL MAIN LAB Specimen Blood Performing Organization Address [facility] Phone Number [facility] LAB [address] [place] [address] * CALCIUM (10/16/2018 2:18 PM [facility]) Calcium 8.4 (L) 8.5 - 10.6 MG/DL MAIN LAB Specimen Blood Performing Organization Address City/[facility]/Zipcode Phone Number MAIN LAB [address] [place] [address] * IONIZED CALCIUM (10/16/2018 2:18 PM [facility]) Ionized Calcium 1.02 1.0 - 1.3 MMOL/L MAIN LAB Specimen Blood Performing Organization Address [facility]/Zipcode Phone Number MAIN LAB [address] [place] [address] * PANOREX EXAM (10/16/2018 11:25 AM [facility]) Impressions Performed At Findings/Impression: [facility] RAD RESULTS [...] Interface, Radiant Results - 10/16/2018 11:49 AM [facility] PANOREX EXAM Clinical Indication: pre-radiation evaluation. Comparison: [...] on 10/16/2018 11:43 AM. Performing Organization Address City/[facility] Phone Number [facility] RAD RESULTS * IONIZED CALCIUM (10/16/2018 6:07 AM [facility]) Ionized Calcium 1.03 1.0 - 1.3 MMOL/L [facility] MAIN [facility] Performing Organization Address [facility] Phone Number MAIN LAB [address] [place] [address] * PHOSPHORUS (10/16/2018 6:07 AM [facility]) Phosphorus 2.7Comment: NOTE NEW REFERENCE 2.0 - 4.5 MG/DL [facility] MAIN LAB RANGES Specimen Blood Performing Organization Address [facility] Phone Number MAIN LAB [address] [place] [address] * MAGNESIUM (10/16/2018 6:07 AM [facility]) Magnesium 1.8 1.6 - 2.6 mg/dL MAIN LAB Specimen Blood Performing Organization Address [facility] Phone Number MAIN LAB [address] [place] [address] * BASIC METABOLIC PANEL (10/16/2018 6:07 AM [facility]) Sodium 139 137 - 147 MMOL/L [facility] [...] LAB Creatinine 0.82 0.4 - 1.00 MG/DL MAIN LAB Calcium 7.9 (L) 8.5 - [...] for questions. Specimen Blood Performing Organization Address [facility] Phone Number MAIN LAB [address] [place] [address] * CBC (10/16/2018 6:07 AM [facility]) White Blood Cells 8.2 4.5 - 11.0 K/UL MAIN LAB RBC 3.37 (L) 4.0 - 5.0 M/UL MAIN LAB Hemoglobin 10.9 (L) 12.0 - 15.0 GM/DL [facility] MAIN LAB Hematocrit 31.8 (L) 36 - 45 % MAIN LAB MCV 94.5 80 - 100 FL MAIN LAB MCH 32.2 26 - 34 PG MAIN LAB MCHC 34.1 32.0 - 36.0 G/DL MAIN LAB RDW 12.8 11 - 15 % MAIN LAB Platelet Count 288 150 - 400 K/UL MAIN LAB MPV 7.3 7 - 11 FL MAIN LAB Specimen Blood Performing Organization Address [facility] Phone Number MAIN LAB [address] [place] [address] * CALCIUM (10/15/2018 8:24 PM [facility]) Calcium 7.8 (L) 8.5 - 10.6 MG/DL MAIN LAB Specimen Blood Performing Organization Address [facility] Phone Number MAIN LAB [address] [place] [address] * IONIZED CALCIUM (10/15/2018 8:24 PM [facility]) Ionized Calcium 0.96 (L) 1.0 - 1.3 MMOL/L MAIN LAB Specimen Blood Performing Organization Address [facility] Phone Number MAIN LAB [address] [place] [address] * 25-OH VITAMIN D (D2 + D3) (10/15/2018 8:24 PM [facility]) Vitamin D(25-OH)Total 9.1 (L) 30 - 80 NG/ML MAIN LAB Specimen Blood Performing Organization Address City/[facility] Phone Number MAIN LAB [address] [place] [address] * IONIZED CALCIUM (10/15/2018 11:08 AM [facility]) Ionized Calcium 0.98 (L) 1.0 - 1.3 MMOL/L MAIN LAB Specimen Blood Performing Organization Address City/[facility] Phone Number [facility] [address] [place] [address] * CALCIUM (10/15/2018 11:08 AM [facility]) Calcium 7.8 (L) 8.5 - 10.6 MG/DL [facility] MAIN [facility] Specimen Blood Performing Organization Address [facility] [facility] Phone Number [facility] [address] [place] [address] * PARATHYROID HORMONE (10/15/2018 3:15 AM [facility]) PTH Hormone 4.0 (L) 10 - 65 PG/ML [facility] Performing Organization Address [facility] Phone Number [facility] [address] [place] [address] * IONIZED CALCIUM (10/15/2018 3:15 AM [facility]) Ionized Calcium 0.76 (L) 1.0 - 1.3 MMOL/L [facility] Specimen Blood Performing Organization Address [facility] Phone Number [facility] [address] [place] [address] * PHOSPHORUS (10/15/2018 3:15 AM [facility]) Phosphorus 2.8Comment: NOTE NEW REFERENCE 2.0 - 4.5 MG/DL [facility]IN [facility] RANGES Specimen Blood Performing Organization Address [facility] Phone Number MAIN LAB [address] [place] [address] * MAGNESIUM (10/15/2018 3:15 AM [facility]) Magnesium 1.9 1.6 - 2.6 mg/dL [facility] Specimen Blood Performing Organization Address [facility] Phone Number [facility] [address] [place] [address] * BASIC METABOLIC PANEL (10/15/2018 3:15 AM [facility]) Sodium 138 137 - 147 MMOL/L KU [...] for questions. Specimen Blood Performing Organization Address City/[facility] Phone Number [facility] [address] [place] [address] * CBC (10/15/2018 3:15 AM [facility]) White Blood Cells 9.0 4.5 - 11.0 K/UL [facility] RBC 3.23 (L) 4.0 - 5.0 M/UL [facility] Hemoglobin 10.4 (L) 12.0 - 15.0 GM/DL [facility] Hematocrit 30.5 (L) 36 - 45 % [facility] MCV 94.4 80 - 100 FL [facility] MCH 32.4 26 - 34 PG [facility] MCHC 34.3 32.0 - 36.0 G/DL [facility]IN [facility] RDW 12.7 11 - 15 % [facility] Platelet Count 232 150 - 400 K/UL [facility] MPV 7.5 7 - 11 FL [facility]IN [facility] Specimen Blood Performing Organization Address [facility] Phone Number [facility] [address] [place] [address] * CALCIUM (10/14/2018 10:53 PM [facility]ARF HAND) Calcium 7.5 (L) 8.5 - 10.6 MG/DL [facility] Specimen Blood Performing Organization Address City/[facility]/Zipcode Phone Number [facility] [address] [place] [address] * IONIZED CALCIUM (10/14/2018 10:45 PM [facility]) Ionized Calcium 0.71 (L) 1.0 - 1.3 MMOL/L [facility] Performing Organization Address City/[facility] Phone Number [facility] [address] [place] [address] * CALCIUM (10/14/2018 6:15 PM [facility]AR[facility]) Calcium 7.2 (L) 8.5 - 10.6 MG/DL MAIN LAB Specimen Blood Performing Organization Address City/[facility] Phone Number MAIN LAB [address] [place] [address] * IONIZED CALCIUM (10/14/2018 6:15 PM [facility]AR[facility]) Ionized Calcium 0.98 (L) 1.0 - 1.3 MMOL/L [facility] Specimen Blood Performing Organization Address [facility] Phone Number MAIN LAB [address] [place] [address] * CALCIUM (10/14/2018 3:38 PM [facility]AR[facility] HAND) Calcium 7.6 (L) 8.5 - 10.6 MG/DL MAIN LAB Specimen Blood Performing Organization Address [facility] Phone Number MAIN LAB [address] [place] [address] * CALCIUM (10/14/2018 10:30 AM [facility]AR[facility]) Calcium 7.8 (L) 8.5 - 10.6 MG/DL MAIN LAB Specimen Blood Performing Organization Address [facility] Phone Number MAIN LAB [address] [place] [address] * IONIZED CALCIUM (10/14/2018 10:30 AM [facility]AR[facility]) Ionized Calcium 1.04 1.0 - 1.3 MMOL/L MAIN LAB Specimen Blood Performing Organization Address [facility] Phone Number MAIN LAB [address] [place] [address] * IONIZED CALCIUM (10/14/2018 7:20 AM [facility]AR[facility] HAND) Ionized Calcium 0.98 (L) 1.0 - 1.3 MMOL/L MAIN LAB Specimen Blood Performing Organization Address [facility] Phone Number MAIN LAB [address] [place] [address] * PHOSPHORUS (10/14/2018 5:47 AM [facility]) Phosphorus 3.3Comment: NOTE NEW REFERENCE 2.0 - 4.5 MG/DL MAIN LAB RANGES Specimen Blood Performing Organization Address [facility] Phone Number MAIN LAB [address] [place] [address] * MAGNESIUM (10/14/2018 5:47 AM [facility]) Magnesium 2.1 1.6 - 2.6 mg/dL [facility] Specimen Blood Performing Organization Address City/[facility]/Zipcode Phone Number MAIN LAB [address] [place] [address] * BASIC METABOLIC PANEL (10/14/2018 5:47 AM [facility]) Sodium 140 137 - 147 MMOL/L K[facility] [...] for questions. Specimen Blood Performing Organization Address City/[facility]/Zipcode Phone Number MAIN LAB [address] [place] [id number] * CBC (10/14/2018 5:47 AM [facility]) White Blood Cells 8.0 4.5 - 11.0 [...] MAIN LAB Specimen Blood Performing Organization Address [facility] Phone Number MAIN LAB [address] [place] [address] * CALCIUM (10/13/2018 11:30 PM [facility]ARF HAND) Calcium 7.7 (L) 8.5 - 10.6 MG/DL MAIN LAB Specimen Blood Performing Organization Address [facility] Phone Number MAIN LAB [address] [place] [address] * IONIZED CALCIUM (10/13/2018 11:30 PM [facility]AR[facility]) Ionized Calcium 0.99 (L) 1.0 - 1.3 MMOL/L MAIN LAB Specimen Blood Performing Organization Address [facility] Phone Number MAIN LAB [address] [place] [address] * ABDOMEN AP ONLY (10/13/2018 3:15 PM [facility]) Impressions Performed At NG tube with tip [...] Interface, Radiant Results - 10/13/2018 5:25 PM [facility] ABDOMEN AP ONLY Clinical Indication: Female, 58 [...] on 10/13/2018 4:35 PM. Performing Organization Address City/[facility]/Zipcode Phone Number [facility] RAD RESULTS * CALCIUM (10/13/2018 3:00 PM [facility] HAND) Calcium 9.1 8.5 - 10.6 MG/DL MAIN LAB Specimen Blood Performing Organization Address [facility] Phone Number [facility] [address] [place] [address] * IONIZED CALCIUM (10/13/2018 3:00 PM WHARF HAND) Ionized Calcium 1.13 1.0 - 1.3 MMOL/L MAIN LAB Specimen Blood Performing Organization Address [facility] Phone Number [facility] [address] [place] [address] * PARATHYROID HORMONE (10/13/2018 3:00 PM [facility]) PTH Hormone 6.0 (L) 10 - 65 PG/ML MAIN LAB Specimen Blood Performing Organization Address [facility] Phone Number [facility] [address] [place] [address] * SURGICAL PATHOLOGY (10/13/2018 12:12 PM [facility]) PATHOLOGY REPORT [facility] [email or web address] Department of Pathology and Laboratory Medicine [address] [place] [address] Surgical Pathology Office:[phone] :[phone] SURGICAL PATHOLOGY REPORT NAME: JACKI MADSEN SURG PATH #: [id number] MR #: [id number] SPECIMEN CLASS: SCA BILLING #: [id number] ALT ID #:LOCATION: DISCHARGED DATE OF PROCEDURE: [...] A8-A9 Adipose tissue and possible lymph nodes. ([facility]) B. Received in formalin labeled with [...] B10-B11 Fibroadipose tissue and possible lymph nodes. ([facility]) C. Fixative: Fresh Labeled: "Larynx and [...] exiting off. 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 C2 Right aryepiglottic fold & right piriform sinus (with inked pyriform sinus margin). C3Left aryepiglottic fold & left piriform sinus (with inked pyriform sinus margin). H0Baygwyjfdh, inked vallecular/base of tongue margin. C5 Post cricoid mucosal margin. Z9Xljyp true vocal cord/ventricle/false vocal cord with paraglottic space. C7Left true vocal cord/ventricle/false vocal cord with paraglottic space. Y2Eflwzhbu commissure. X3Vofauzjika and pre-epiglottic space. R35Nkprf to right/left paraglottic space. Y70Pvflw to thyroid cartilage (at deepest invasion). T21Prbii to nearest anterior soft tissue margin. S89Znlakes of posterior cricoid cartilage with posterior cricoid area. I48Ifgrqej of hyoid bone. O80Tilqzfyxofcllc section of skin at tracheostomy site. P81Xolmkhdbvuchra sections from left thyroid. Q74Avsyngixvasfgz sections from right thyroid. ([facility]) D. Received fresh, labeled with patient's name and "right hypopharynx" is a 6.9 x 0.4 x 0.3 cm white-henson tissue fragment. The specimen is bisected and is submitted entirely for frozen consultation with the remnant placed in cassette D1FS for permanent diagnosis. ([facility]) E. Received fresh, labeled with patient's name and "left hypopharynx" is a 7.5 x 0.4 x 0.3 cm white-henson tissue fragment. The specimen is trisected and is submitted entirely for frozen consultation with the remnant placed in cassette E1FS for permanent diagnosis. ([facility]) F. Received fresh, labeled with patient's name and "base of tongue MM" is a 1.3 x 0.3 x 0.3 cm white-henson tissue fragment. The specimen is submitted entirely for frozen consultation with the remnant placed in cassette F1FS for permanent diagnosis. ([facility]) G. Received fresh, labeled with patient's name and "post cricoid" is a 1.4 x 0.3 x 0.3 cm white-henson tissue fragment. The specimen is submitted entirely for frozen consultation with the remnant placed in cassette G1FS for permanent diagnosis. ([facility]) [facility]/10/13/2018 Intraoperative Consultation: D1FS, mucosa, "right hypopharynx", biopsy: Negative for malignancy E1FS, mucosa, "left hypopharynx", biopsy: Negative for malignancy F1FS, mucosa, "base of tongue MM", biopsy: Negative for malignancy G1FS, mucosa, "post cricoid", biopsy: Negative for malignancy Frozen section performed at the [facility], [address] [place] [address]. Jasmina Rubi MD Performing Organization Address City/[facility] Centercode Phone Number [facility] [address] [place] [address] * BLOOD TYPE CONFIRMATION - ORDER ONLY IF REQUESTED BY LAB (10/13/2018 8:35 AM [facility]) ABO/RH(D) A POS [facility] Specimen Blood Performing Organization Address [facility]ode Phone Number [facility] [address] [place] [address] * TYPE & CROSSMATCH (10/13/2018 8:30 AM [facility]) Units Ordered 2 [facility] Crossmatch Expires 10/16/2018 [facility] Record Check 2ND TYPE REQUIRED [facility] ABO/RH(D) A POS MAIN LAB Antibody Screen NEG MAIN LAB Electronic Crossmatch YES MAIN LAB Specimen Blood Performing Organization Address City/[facility]erc[facility] Phone Number [facility] [address] [place] [address] * 2-D + DOPPLER ECHOCARDIOGRAM (10/08/2018 11:14 AM [facility]) BSA 1.9 m2 OTHER OUTSIDE LAB LVIDD [...] 34 OTHER OUTSIDE LAB Cardiology Ultrasound Siemens [id number] OTHER OUTSIDE LAB Machine Left Ventricle Mass [...] * SWALLOW MOTION SERIES (10/07/2018 8:48 AM [facility]) Impressions Performed At 1. Laryngeal penetration with [...] Interface, Radiant Results - 10/07/2018 11:27 AM [facility]AR[facility] HAND SWALLOW MOTION SERIES CLINICAL HISTORY: Female, 58 [...] PET SCAN TORSO (SKULL-THIGHS) (10/06/2018 1:21 PM [facility]) Impressions Performed At 1.Hypermetabolic left glottic mass, [...] Interface, Radiant Results - 10/06/2018 5:08 PM [facility] PET/CT NECK, CHEST, ABDOMEN AND PELVIS RADIOPHARMACEUTICAL: [...] * CT NECK W/CONTRAST (10/06/2018 10:14 AM [facility]) Impressions Performed At 1. Interval tracheostomy and [...] Interface, Radiant Results - 10/06/2018 11:[address] Neck with Contrast Clinical Indication: Female, [...] CT CHEST W CONTRAST (10/06/2018 10:14 AM [facility]) Impressions Performed At 1. Subcutaneous air and [...] Interface, Radiant Results - 10/06/2018 10:[address] CHEST W CONTRAST INDICATION: Laryngeal mass [...] on 10/06/2018 10:42 AM. Performing Organization Address City/[facility]ode Phone Number RAD RESULTS * POC GLUCOSE (10/06/2018 9:43 AM [facility]) Glucose, POC 83 70 - 100 MG/DL MAIN LAB Performing Organization Address City/[facility] Phone Number MAIN LAB [address] [place] [address] * PHOSPHORUS (10/06/2018 8:45 AM [facility]) Phosphorus 2.6Comment: NOTE NEW REFERENCE 2.0 - 4.5 MG/DL MAIN LAB RANGES Performing Organization Address [facility] Phone Number MAIN LAB [address] [place] [address] * MAGNESIUM (10/06/2018 8:45 AM [facility]) Magnesium 1.8 1.6 - 2.6 mg/dL [facility] Performing Organization Address City/[facility]/Zipcode Phone Number [facility] [address] [place] [address] * BASIC METABOLIC PANEL (10/06/2018 8:45 AM [facility]) Sodium 138 137 - 147 MMOL/L KU [...] Clinical Pharmacist for questions. Performing Organization Address City/[facility] Phone Number MAIN LAB [address] [place] [address] * THYROID STIMULATING HORMONE-TSH (10/06/2018 8:45 AM [facility]) TSH 0.680 0.35 - 5.00 MCU/ML [facility]IN [facility] Specimen Blood Performing Organization Address City/[facility] Phone Number [facility] [address] [place] [address] * PREALBUMIN (10/06/2018 8:45 AM [facility]) Prealbumin 19.0 17 - 34 MG/DL [facility]IN [facility] Specimen Blood Performing Organization Address City/[facility] Phone Number [facility] [address] [place] [address] * ALBUMIN (10/06/2018 8:45 AM [facility]) Albumin 4.0 3.5 - 5.0 G/DL [facility]IN [facility] Specimen Blood Performing Organization Address City/[facility] Phone Number MAIN LAB [address] [place] [address] * BASIC METABOLIC PANEL (10/05/2018 4:41 PM [facility]AR[facility] HAND) Sodium 137 137 - 147 MMOL/L KU [...] for questions. Specimen Blood Performing Organization Address [facility]/Zipcode Phone Number MAIN LAB [address] [place] [address] * CBC (10/05/2018 4:41 PM [facility]ARF HAND) White Blood Cells 7.2 4.5 - 11.0 K/UL [facility]IN [facility] RBC 4.23 4.0 - 5.0 M/UL [facility]IN [facility] Hemoglobin 13.4 12.0 - 15.0 GM/DL [facility]IN [facility] Hematocrit 40.1 36 - 45 % [facility]IN [facility] MCV 94.9 80 - 100 FL [facility] MAIN [facility] MCH 31.7 26 - 34 PG [facility]IN [facility] MCHC 33.4 32.0 - 36.0 G/DL MAIN LAB RDW 12.7 11 - 15 % [facility] MAIN [facility] Platelet Count 220 150 - 400 K/UL MAIN LAB MPV 7.7 7 - 11 FL [facility] MAIN [facility] Specimen Blood Performing Organization Address City/[facility]/Zipcode Phone Number MAIN LAB [address] [place] [address] * SURGICAL PATHOLOGY (10/05/2018 4:02 PM [facility]ARF HAND) PATHOLOGY REPORT [facility] [employer] [facility] [email or web address] Department of Pathology and Laboratory Medicine [address] [place] [address] Surgical Pathology Office:[phone] [phone] SURGICAL PATHOLOGY REPORT NAME: JACKI MADSEN SURG PATH #: [id number] MR #: [id number] SPECIMEN CLASS: SCA BILLING #: [id number] ALT ID #:LOCATION: [id number] DATE OF PROCEDURE: 10/05/2018 AGE:58 SEX: F [...] severe squamous dysplasia. Comment: Pursuant to the Cotton Picking Machine Operator Program at the [facility] Pathology Department, selected slides from [...] report. +++ +++ Truong Edward MD Resident cow/10/06/2018 ############################## ############################## ############ Material Received: A: left [...] cell carcinoma. Frozen section performed at the [facility], [address] [place] [address]. Stone Chávez MD Performing Organization Address City/State/[facility] Phone Number [facility] RESULTS * TELEMETRY STRIPS-SCAN (10/05/2018 12:00 AM [facility]) Narrative Performed At Ordered by an unspecified provider. * EXERCISE OXIMETRY-SCAN (10/05/2018 12:00 AM [facility]) Narrative Performed At Ordered by an unspecified provider. * ECG-SCAN (10/05/2018 12:00 AM [facility]AR[facility] HAND) Narrative Performed At Ordered by an unspecified provider. in this encounter Visit Diagnoses Diagnosis Laryngeal mass Other diseases of larynx in this encounter Admitting Diagnoses Diagnosis Laryngeal mass Other diseases of larynx in this encounter Administered Medications Action Date Dose Rate Site Medication Order MAR Action 10/22/2018 9:19 AM [facility] 650 mg acetaminophen (TYLENOL) oral solution Given 650 mg 650 mg, Per NG tube, EVERY 4 HOURS, First dose on Alexandra 10/15/18 at 0800, Until Discontinued, TOTAL ACETAMINOPHEN DOSE NOT TO EXCEED 4GM DAILY, 650 mg Given 10/22/2018 4:27 AM [facility] 650 mg Given 10/21/2018 10:00 PM WHARF HAND 10/21/2018 3:19 PM [facility] HAND 0.25 mg ALPRAZolam (XANAX) tablet 0.25 mg Given 0.25 mg, Oral, TWICE DAILY PRN, Starting Fri10/21/18 at 1427, Until Fri10/22/18 at 1308, Anxiety PO 10/22/2018 9:20 AM [facility] HAND 875 mg amoxicillin/K clavulanate (AUGMENTIN) Given oral suspension 875 mg 875 mg, Per NG tube, TWICE DAILY, First dose on Fri10/21/18 at 1215, Until Discontinued 875 mg Given 10/21/2018 10:00 PM [facility] HAND 875 mg Given 10/21/2018 3:19 PM [facility]ARF HAND 10/22/2018 9:16 AM [facility] 1 spray antiseptic mucus solvent 120 mL solution Given 1 spray 1 spray, Tracheal Tube, EVERY 2 HOURS WHILE AWAKE, First dose on Fri10/13/18 at 1700, Until Discontinued, Dilute 1:1 with NS prior to administration. And PRN, 1 spray Given 10/21/2018 10:00 PM [facility] HAND 1 spray Given 10/21/2018 2:30 PM [facility]AR[facility] HAND 10/21/2018 10:58 PM [facility] HAND 2,850 mg calcium citrate (CALCITRATE) tablet Given 2,850 mg 2,850 mg, Per NG tube, TWICE DAILY, First dose on Fri10/20/18 at 0900, Until Discontinued, Each tablet delivers 200mg elemental Calcium, 2,850 mg Given 10/21/2018 8:36 AM [facility] 2,850 mg Given 10/20/2018 8:29 PM [facility]AR[facility] HAND 10/19/2018 9:01 PM [facility] HAND 100 mg docusate (COLACE) oral solution 100 mg Given 100 mg, Per NG tube, TWICE DAILY, First dose on Fri10/13/18 at 2100, Until Discontinued, Hold for loose stools, 100 mg Given 10/19/2018 2:39 PM [facility] HAND 100 mg Given 10/18/2018 9:19 PM [facility] HAND 10/05/2018 4:11 PM [facility] HAND 8 mL Neck EPINEPHrine syringe Given INTRA-PROCEDURE MED, Starting Fri10/05/18 at 1611, Until Fri10/05/18 at 1631, Intra-op 10/21/2018 8:54 AM [facility] 50,000 Units ergocalciferol (vitamin D-2) Given (CALCIFEROL) oral solution 50,000 Units 50,000 Units, Oral, THREE TIMES WEEKLY (Once per day on Fri), First dose on Fri10/16/18 at 1830, Until Discontinued 50,000 Units Given 10/19/2018 2:41 PM [facility] HAND 50,000 Units Given 10/16/2018 8:22 PM [facility]ARF HAND 10/22/2018 9:19 AM [facility] 20 mg famotidine (PEPCID) oral suspension 20 Given mg 20 mg, Per NG tube, TWICE DAILY, First dose on Fri10/13/18 at 2100, Until Discontinued 20 mg Given 10/21/2018 10:00 PM [facility]AR[facility] HAND 20 mg Given 10/21/2018 8:36 AM [facility]AR[facility] HAND 10/22/2018 6:11 AM [facility]AR[facility] HAND 300 mg gabapentin (NEURONTIN) oral solution 300 Given mg 300 mg, Per NG tube, EVERY 8 HOURS, First dose on Fri10/14/18 at 1400, Until Discontinued 300 mg Given 10/21/2018 10:19 PM [facility]ARF HAND 300 mg Given 10/21/2018 3:19 PM WHARF HAND 10/22/2018 6:10 AM [facility] HAND 5,000 Units Abdominal Tissue heparin (porcine) PF syringe 5,000 Units Given 5,000 Units, Subcutaneous, EVERY 8 HOURS, First dose on Fri10/14/18 at 0600, Until Discontinued, NOTE: This is a HIGH ALERT Medication., 5,000 Units Abdominal Tissue Given 10/21/2018 10:19 PM [facility]ARF HAND 5,000 Units Abdominal Tissue Given 10/21/2018 3:20 PM WHARF HAND 10/22/2018 6:10 AM [facility]AR[facility] HAND 125 mcg levothyroxine (SYNTHROID) tablet 125 mcg Given 125 mcg, Per NG tube, DAILY 30MIN BEFORE BREAKFAST, First dose on Alexandra 10/15/18 at 0630, Until Discontinued, Give 1 hour before a meal. If patient is receiving tube feedings, hold tube feed 1hr before and 1hr after dose., 125 mcg Given 10/21/2018 6:35 AM [facility]ARF HAND 125 mcg Given 10/20/2018 6:13 AM [facility]AR[facility] HAND 10/05/2018 3:47 PM [facility] HAND 8 mL Neck lidocaine 1% /EPINEPHrine [id number] Given (buffered) syringe INTRA-PROCEDURE MED, Starting 10/05/18 at 1541, Until 10/05/18 at 1631, Intra-op 10 mL Neck Given 10/05/2018 3:42 PM [facility]AR[facility] HAND 10 mL Neck Given 10/05/2018 3:41 PM WHARF HAND 10/19/2018 9:01 PM [facility]ARF HAND 10 mL milk of magnesia (CONC) oral suspension Given 10 mL 10 mL, Per NG tube, AT BEDTIME DAILY, First dose on Fri10/13/18 at 2100, Until Discontinued, Give daily until first bowel movement, then PRN Constipation PO. 10 mL CONC=30 mL MOM, 10 mL Given 10/13/2018 8:06 PM [facility]ARF HAND 10/16/2018 5:29 PM [facility]ARF HAND 2 mg morphine injection syringe 2 mg Given 2 mg, Intravenous, EVERY 2 HOURS PRN, Starting Fri10/13/18 at 1609, Until Alexandra 10/22/18 at 1308, Pain Injectable 2 mg Given 10/13/2018 6:38 PM [facility]ARF HAND 10/19/2018 3:07 PM [facility] HAND 4 mg ondansetron (ZOFRAN) injection 4 mg Given 4 mg, Intravenous, EVERY 6 HOURS PRN, Starting Fri10/13/18 at 1609, Until Alexandra 10/22/18 at 1308, Nausea/Vomiting Injectable 4 mg Given 10/14/2018 9:14 AM [facility] HAND 4 mg Given 10/13/2018 6:38 PM WHARF HAND 10/22/2018 10:35 AM [facility] 5 mg oxyCODONE (ROXICODONE) oral solution 5 Given mg 5 mg, Per NG tube, EVERY 4 HOURS PRN, Starting Fri10/13/18 at 1609, Until Alexandra 10/22/18 at 1308, Pain PO 5 mg Given 10/20/2018 9:59 AM [facility] 5 mg Given 10/20/2018 6:22 AM [facility]ARF HAND pancrelipase 20,000 Units/ sodium bicarbonate 650 mg(#) (K[facility] CLOG DESTROYER) for occluded feeding tube cap 1 capsule 1 capsule, Feeding Tube, NEEDED (PRACTICE CONSULTANT FROM RX), Starting Fri10/15/18 at 0720, Until [...] remains occluded following administration., 10/21/2018 10:00 PM [facility] HAND 40 mg pantoprazole(#) (PROTONIX) suspension 40 Given mg 40 mg, Per NG tube, DAILY, First dose on Fri10/14/18 at 0845, Until Discontinued 40 mg Given 10/20/2018 8:32 PM [facility]AR[facility] HAND 40 mg Given 10/19/2018 9:02 PM [facility]ARF HAND 10/21/2018 10:00 PM [facility]AR[facility] HAND 40 mg pravastatin (PRAVACHOL) tablet 40 mg Given 40 mg, Per NG tube, AT BEDTIME DAILY, First dose on Fri10/14/18 at 2100, Until Discontinued 40 mg Given 10/20/2018 11:40 PM [facility]ARF HAND 40 mg Given 10/19/2018 9:02 PM WHARF HAND 10/13/2018 7:32 PM [facility] HAND 10 mg prochlorperazine (COMPAZINE) injection Given 5-10 mg 5-10 mg, Intravenous, EVERY 6 HOURS PRN, Starting Fri10/09/18 at 2026, Until Alexandra 10/22/18 at 1308, Nausea/Vomiting Injectable, If zofran ineffective, PROTECT FROM LIGHT -- May be given undiluted, or each 5mg may be diluted with 9 mL of NS to facilitate titration., 5 mg Given 10/09/2018 8:55 PM WHARF HAND 10/21/2018 10:00 PM WHARF HAND 500 mg QUEtiapine (SEROQUEL) tablet 500 mg Given 500 mg, Per NG tube, AT BEDTIME DAILY, First dose on Fri10/14/18 at 2100, Until Discontinued 500 mg Given 10/20/2018 8:29 PM WHARF HAND 500 mg Given 10/19/2018 9:01 PM WHARF HAND 10/21/2018 4:19 AM WHARF HAND 1 spray sodium chloride (SEA MIST) 0.65 % nasal Given spray 1-2 spray 1-2 spray, Each Nostril, EVERY 2 HOURS, First dose on Fri10/16/18 at 0800, Until Discontinued, While awake (NGT irritation), 2 sprays Given 10/20/2018 11:41 PM WHARF HAND 1 spray Given 10/20/2018 10:00 PM WHARF HAND 10/22/2018 7:36 AM WHARF HAND 100 mg traMADol (ULTRAM) tablet 50-100 mg Given 50-100 mg, Per NG tube, EVERY 4 HOURS PRN, Starting Fri10/13/18 at 2047, Until Alexandra 10/22/18 at 1308, Pain PO, 1st line before oxycodone, Can be used INSTEAD OF oxycodone, 50 mg Given 10/21/2018 3:19 PM WHARF HAND 100 mg Given 10/20/2018 8:40 PM WHARF HAND 10/22/2018 9:19 AM WHARF HAND 37.5 mg venlafaxine (EFFEXOR) tablet 37.5 mg Given 37.5 mg, Per NG tube, TWICE DAILY WITH MEALS, First dose on Fri10/14/18 at 0930, Until Discontinued 37.5 mg Given 10/21/2018 6:06 PM WHARF HAND 37.5 mg Given 10/21/2018 8:36 AM WHARF HAND in this encounter
--- OUTSIDE RECORDS SUMMARY | 2018-11-13 11:38 | XMS REPORT | Encounter Summary ---
Author Author [facility] Organization [facility] Address Unknown Phone Unavailable Care Team Providers Care Scenic Artist Name Role Phone Kelly Olivier RN Unavailable Unavailable Chris Ohara MD PCP Reason for Visit * Reason Comments New Patient vocal cords * Consult, Test & Treat (Routine) Referred By Contact Referred To Contact Status Reason Specialty Diagnoses / Procedures Newton De La Fuente MD [address] [facility] [address] [place] [address] [facility] Level [address]C [address] [place] [address] No Auth Needed Otolaryngology Diagnoses Vocal cord mass Encounter Details Care Team Description Date Type Department Shreyas Snyder MD [address] [place] [address] Mass of larynx; Shortness of breath; Pharyngeal dysphagia 10/05/2018 Office Visit [facility] Level [address]C [address] [place] [address] Social History Date Tobacco Use [...] Vital Signs Time Taken Vital Sign Reading 10/05/2018 11:49 AM PROJECT ACCOUNTANT Blood Pressure 125/79 10/05/2018 11:49 AM PROJECT ACCOUNTANT Pulse 106 - Temperature - - Respiratory Rate - - Oxygen Saturation - - Inhaled Oxygen - Concentration 10/05/2018 11:49 AM PROJECT ACCOUNTANT Weight 76.4 kg (168 lb 6.4 oz) 10/05/2018 11:49 AM PROJECT ACCOUNTANT Height 170.2 cm (5' 7") 10/05/2018 11:49 AM PROJECT ACCOUNTANT Body Mass Index 26.38 in this encounter Progress Notes * Shreyas Snyder MD - 10/05/2018 11:00 AM PROJECT ACCOUNTANT Chief Complaint Patient presents with New Patient vocal cords History of Present Illness: Michelle Madsen is a 58 y.o. year old female evaluated on 10/05/2018, in the Otolaryngology-Head and Neck Surgery Clinic at the [facility]. The patient was referred by Dr. [...] breathing especially at night and with exertion. Past Medical/Surgical History She has a past [...] Drug: Marijuana. Medications/Allergies/Immunizations Her current medication(s) include: Current Outpatient Medications Medication Sig Dispense Refill [...] hyperactive gag reflex, inadequate mirror visualization. Surgeon: Shreyas Snyder MD Procedure note/findings: After informed discussion [...] reasonable for her condition. This will include urgent awake tracheostomy and direct laryngoscopy with biopsy. [...] on the OR schedule today for awake tracheostomy. I believe that Ms. Madsen has a good understanding of the issues involved and I answered all of her questions. Derian Walton MD [id number] I personally performed the juarez portions of the E/M visit, discussed case with resident and concur with resident documentation of history, physical exam, assessment, and treatment plan unless otherwise noted. Staff name: Shreyas Snyder MD Date: 10/05/2018 ECT ACCOUNTANT in this encounter Plan of Treatment Not on fileas of this encounter Visit Diagnoses Diagnosis Mass of larynx Other diseases of larynx Shortness of breath Pharyngeal dysphagia Dysphagia, pharyngeal phase in this encounter
--- OUTSIDE RECORDS SUMMARY | 2018-11-13 11:38 | XMS REPORT | Encounter Summary ---
Author Author [facility] Organization [facility] Address Unknown Phone Unavailable Care Team Providers Care Co Founder And Cto Name Role Phone Kelly Olivier RN Unavailable Unavailable Self, Referral PCP Unavailable Reason for Visit * Reason Comments Navigation Assessment Encounter Details Care Team Description Date Type Department Shreyas Snyder MD [address] [place] [address] Navigation Assessment 09/11/2018 Telephone [facility] [address] [address] Social History Date Tobacco Use Types Packs/Day Years Used Current Every Day Smoker 0.5 Alcohol Use Drinks/Week oz/Week Comments Yes rarely Sex Assigned at Date Recorded Not on file Industry Job Start Date Occupation Not on file Not on file Not on file Travel End Travel History Travel Start No recent travel history available. 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 Tom, psychiatry Location of Films: PACS Location of Pathology: none History of Present Illness: 48 yr old female from [place], [place] is referred for evaluation of a vocal cord mass. Pt presents with severe hoarseness. CT of neck w/o contrast was performed(pt states she has immediate nausea and vomiting with IV contrast). CT reports asymmetric fullness of the left true vocal cord extending inferiorly along the cord anteriorly suspicious for a mass. This does not appear to cross the midline. No cervical lymphadenopathy or other masses identified. Pt reports that she takes medications for elevated cholesterol, schizophrenia and depression and has been using Ibuprofen for pain. Pt smokes 1 ppd for many years, but is interested in quitting. Does not have a plan to do this at this time. Prior Treatment (XRT, Surgery, Chemotherapy): No prior history NEEDS Assessment: Genetic Counseling: not discussed Nutrition: able to take all nutrition by mouth Social & Financial: lives with huseyindale Ernie. States has been with him for 12 years. Due to pts difficulty speaking on phone, she has given permission to speak to Ernie regarding appts. Pts brother will drive pt to appt. Pt is on disability secondary to mental health diagnosis, but is able to make her own decisions and to care for herself. Spiritual & Emotional: Spent time on phone with pt and michelle, providing emotional support. Physical: no deficit reported Communication: due to hoarseness, pt had difficulty speaking on phone. Additional Education: Smoking cessation ITURE FINISHER HELPER in this encounter Plan of Treatment Not on fileas of this encounter Visit Diagnoses Not on filein this encounter
--- OUTSIDE RECORDS SUMMARY | 2018-11-13 11:38 | XMS REPORT | Encounter Summary ---
Author Author [facility] Organization [facility] Address Unknown Phone Unavailable Care Team Providers Care Traveling Electrician Name Role Phone Kelly Olivier RN Unavailable Unavailable Self, Referral PCP Unavailable Encounter Details Care Team Description Date Type Department 09/07/2018 Hospital [facility] Rad[facility] [address] [place] [address] Social History Date Tobacco Use Types Packs/Day Years Used Current Every Day Smoker 0.5 Alcohol Use Drinks/Week oz/Week Comments Yes rarely Sex Assigned at Date Recorded Not on file Industry Job Start Date Occupation Not on file Not on file Not on file Travel End Travel History Travel Start No recent travel history available. as of this encounter Medications at Time of Discharge Start Date End Date Medication Sig Dispensed Refills nitroglycerin (NITROSTAT) Place 0.4 mg 0 0.4 mg SL tablet under tongue every 5 minutes as needed. 10/07/2018 albuterol 0.5% Inhale 2.5 mg 0 (PROVENTIL; VENTOLIN) 2.5 by mouth. mg/0.5 mL IN [facility] [place] 10/07/2018 aspirin EC 81 mg PO Take 81 mg by 0 tablet mouth daily. 01/10/2011 10/07/2018 cyclobenzaprine Take 1 Tab by 21 Tab 0 (FLEXERIL) 10 mg PO mouth three tablet times daily as needed for Muscle Cramps. 10/07/2018 DULOXETINE HCL (CYMBALTA Take by 0 PO) mouth. 10/07/2018 DULOXETINE HCL (CYMBALTA Take by 0 PO) mouth. 10/07/[address](+) Take 40 mg by 0 (NEXIUM) 40 mg PO capsule mouth every morning. 01/10/2011 10/07/2018 hydrocodone/acetaminophen Take 1 Tab by 16 Tab 0 (VICODIN) 5/500 mg PO mouth every 6 tablet hours as needed for Pain. 10/07/2018 lidocaine (LIDODERM) 5 % Apply 1 Patch 0 TP topical patch to top of skin as directed every 24 hours. 10/07/2018 METOPROLOL TARTRATE PO Take by 0 mouth. 10/07/2018 pregabalin (LYRICA) 25 mg Take 25 mg by 0 PO capsule mouth three times daily. 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 in this encounter Visit Diagnoses Diagnosis Diagnosis unknown Other unknown and unspecified cause of morbidity or mortality in this encounter
--- OUTSIDE RECORDS SUMMARY | 2018-11-13 11:39 | XMS REPORT ---
Author Author MARIMAR JONES Organization [facility] Address [address] [place] [address] Care Team Providers Care Electronic Calibration Technician Name Role Phone MARIMAR JONES Unavailable PROBLEMS Type Condition ICD9-CM Code [id number] Code Onset Dates Condition Status SNOMED Code Problem Borderline personality disorder F60.3 Active 05029745 Problem Post-traumatic stress disorder, chronic F43.12 Active 49123502 Problem Carpal tunnel syndrome of right wrist G56.01 Active [id number] Problem PAD (peripheral artery disease) I73.9 Active 938666256 Problem Anxiety F41.9 Active 42430908 Problem Cannabis use disorder, mild, abuse F12.10 Active 18524294 Problem Bipolar affective, depress, mod F31.32 Active 798348567 Problem Fibromyalgia M79.7 Active 390184992 Problem Cervical radiculopathy M54.12 Active 09585049 Problem CAD (coronary artery disease) I25.10 Active 98257342 Problem Depression F32.9 Active 01901894 Problem Back pain M54.9 Active 042495301 Problem Tobacco abuse Z72.0 Active 15186850 Problem Hyperlipidemia E78.5 Active 84855062 ALLERGIES No Information ENCOUNTERS Encounter Location Date Diagnosis [facility] [id number] [place] [address] 64652- 7343 Oct, [facility] [id number] [place] [address] 26221- 2533 Sep, [facility] [id number] [place] [address] [id number] Sep, 2018 Caries K02.9 [facility] [id number] [place] [address] [id number] Aug, Dental examination Z01.20 and Caries K02.9 [facility] [id number] [place] [address] 44619- 1423 Aug, Cervical radiculopathy M54.12 [place] [address] 69964- 8311 Aug, Cervical radiculopathy M54.12 [place] [id number] [place] [address] 25417- 6507 Aug, [place] [address] 70621- 5238 Aug, Post-traumatic stress disorder, chronic F43.12 ; Bipolar affective, depress, mod F31.32 ; Borderline personality disorder F60.3 ; Cannabis use disorder, mild, abuse F12.10 and Other oil heaterman (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.899 [place] [id number] [place] [address] 69794- 0394 Jul, Cervical radiculopathy M54.12 [place] [address] 309010- 3298 Jul, Hoarseness, persistent R49.0 [place] [address] 16574- 8494 Jul, [place] [address] 75809- 7597 Jul, Dental abscess K04.7 ; Cervical radiculopathy M54.12 and Allergic state, initial encounter T78.40XA [place] [id number] [place] [address] 34690- 6984 Jul, [place] [id number] [place] [address] 21581- 5766 May, [place] [address] 717695- 4427 May, [place] [id number] [place] [address] 14665- 7672 Apr, Post-traumatic stress disorder, chronic F43.12 ; Bipolar affective, depress, mod F31.32 ; Borderline personality disorder F60.3 and Cannabis use disorder, mild, abuse F12.10 [place] [id number] [place] [address] 72675- 9645 Apr, Cervical radiculopathy M54.12 ; Back pain M54.9 ; Fibromyalgia M79.7 and High risk heterosexual behavior Z72.51 [place] [address] 49788- 4311 Apr, [place] [address] 05155- 3137 Mar, Bipolar affective, depress, mod F31.32 ; Post-traumatic stress disorder, chronic F43.12 ; Borderline personality disorder F60.3 and Cannabis use disorder, mild, abuse F12.10 [place] [address] 04667- 5412 Mar, Tobacco abuse Z72.0 [place] [address] 42962- 6269 Mar, [place] [address] 40782- 9427 February, Fibromyalgia M79.7 [place] [id number] [place] [address] 72599- 4981 Jan, Post-traumatic stress disorder, chronic F43.12 ; Bipolar affective, depress, mod F31.32 ; Borderline personality disorder F60.3 and Cannabis use disorder, mild, abuse F12.10 [place] [id number] [place] [address] 53748- 4435 Jan, [place] [address] 44380- 2543 Dec, Bipolar affective, depress, mod F31.32 ; Post-traumatic stress disorder, chronic F43.12 ; Borderline personality disorder F60.3 and Cannabis use disorder, mild, abuse F12.10 [place] [id number] [place] [id number]- [address]682 Dec, Hoarseness R49.0 ; Bronchitis J40 ; PAD (peripheral artery disease) I73.9 and Tobacco abuse Z72.0 [place] [address] [place] [address]- 616 Nov, Bipolar affective, depress, mod F31.32 ; Post-traumatic stress disorder, chronic F43.12 ; Borderline personality disorder F60.3 and Cannabis use disorder, mild, abuse F12.10 [place] [address] 34743- 233 Oct, Post-traumatic stress disorder, chronic F43.12 ; Bipolar affective, depress, mod F31.32 ; Borderline personality disorder F60.3 and Cannabis use disorder, mild, abuse F12.10 [place] [address] 86775- 9805 Oct, Bipolar affective, depress, mod F31.32 ; Post-traumatic stress disorder, chronic F43.12 and Borderline personality disorder F60.3 [place] [address] 01824- 4080 Sep, Anxiety F41.9 [place] [address]386- 1782 Aug, Bipolar affective, depress, mod F31.32 ; Post-traumatic stress disorder, chronic F43.12 and Borderline personality disorder F60.3 [place] [id number]- 1295 Aug, Bipolar affective, depress, mod F31.32 ; Post-traumatic stress disorder, chronic F43.12 and Borderline personality disorder F60.3 [place] [address] [place] [address] [id number]- 1080 Aug, Fibromyalgia M79.7 ; Back pain M54.9 and Cervical radiculopathy M54.[address] 62953- 7607 Aug, Bipolar affective, depress, mod F31.32 and Post-traumatic stress disorder, chronic F43.12 [place] [id number] [place] [address] 08166- 6885 Jul, Depression F32.9 ; Borderline personality disorder F60.3 and Bipolar affective, depress, mod F31.32 [place] [id number] [place] [address] 04756- 0824 Jul, Post-traumatic stress disorder, chronic F43.12 ; Bipolar affective, depress, mod F31.32 ; Borderline personality disorder F60.3 and Cannabis use disorder, mild, abuse F12.10 [place] [id number] [place] [address] 23446- 9856 Jul, Other oil heaterman (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.899 [place] [id number] [place] [address] 45746- 1538 Jun, [place] [address] 79174- 7896 Jun, Depression F32.9 ; Borderline personality disorder F60.3 and Bipolar affective, depress, mod F31.32 [place] [id number] [place] [address] 15276- 6562 Jun, Depression F32.9 and Borderline personality disorder F60.3 [place] [id number] [place] [address] 66490- 2227 May, Post-traumatic stress disorder, chronic F43.12 [place] [id number] [place] [address] 75908- 0953 May, Depression F32.9 and Borderline personality disorder F60.3 [place] [id number] [place] [address]270 Apr, Post-traumatic stress disorder, chronic F43.12 ; Bipolar affective, depress, mod F31.32 ; Borderline personality disorder F60.3 ; Other oil heaterman (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.899 and Cannabis use disorder, mild, abuse F12.10 [facility] [id number] [place] [address] 98994- 7882 Apr, Depression F32.9 and Borderline personality disorder F60.3 [facility] [id number] [place] [address] 82719- 2449 Apr, Depression F32.9 and Borderline personality disorder F60.3 [facility] [id number] [place] [address] 69381- 0280 Mar, Depression F32.9 and Borderline personality disorder F60.3 [facility] [id number] [place] [address] 13200- 4871 February, Depression F32.9 and Borderline personality disorder F60.3 [place] [id number] [place] [address] 07896- 6928 February, Back pain M54.9 [facility] [id number] [place] [address] 61528- 5515 February, Depression F32.9 and Borderline personality disorder F60.3 [place] [id number] [place] [address] 36498- 9148 February, Post-traumatic stress disorder, chronic F43.12 ; Borderline personality disorder F60.3 and Bipolar affective disorder, depressed, mild F31.31 [place] [id number] [place] [address] 65254- 2715 February, [facility] [id number] [place] [address] 11556- 5162 February, Depression F32.9 and Borderline personality disorder F60.3 [facility] [id number] [place] [address] 63322- 9771 Jan, [facility] [id number] [place] [address] 61483- 7095 Jan, Depression F32.9 and Borderline personality disorder F60.3 [facility] [address] [place] [address]- 8026 Jan, Acute lateral meniscus tear of right knee, initial encounter S83.281A [place] [address] 27576- 0850 Jan, Depression F32.9 and Borderline personality disorder F60.3 [place] [address] 04115- 4213 Dec, Depression F32.9 and Borderline personality disorder F60.3 [place] [address] 69607- 7296 Dec, Depression F32.9 and Borderline personality disorder F60.3 [place] [address] 06742- 5541 28 Nov, 2016 Hyperlipidemia E78.5 ; Knee locking, right M23.91 and Carpal tunnel syndrome of right wrist G56.01 [place] [address] 34646- 5502 Nov, Bipolar affective, depress, mod F31.32 ; Post-traumatic stress disorder, chronic F43.12 and Borderline personality disorder F60.3 [place] [address] 89605- 4106 Nov, Depression F32.9 and Borderline personality disorder F60.3 [place] [address] 10846- 4931 Oct, Post-traumatic stress disorder, chronic F43.12 and Other oil heaterman (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.899 [place] [id number] [place] [address] 06151- 4470 Oct, Nondisplaced fracture of distal end of right radius with routine healing, subsequent encounter S52.501D [place] [address] 83741- 4703 Sep, [place] [address] 40806- 4143 Aug, Right wrist fracture, closed, initial encounter S62.101A [facility] [id number] [place] [address] 71020- 8182 Aug, [facility] [id number] [place] [address] 70000- 7817 Jul, Back pain M54.9 and Hyperlipidemia E78.5 [facility] [id number] [place] [address] 51886- 9782 Jul, Post-traumatic stress disorder, chronic F43.12 and Other oil heaterman (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.899 [place] [id number] [place] [address] 67870- 5298 Apr, Bipolar affective, depress, mod F31.32 ; Post-traumatic stress disorder, chronic F43.12 and Other oil heaterman (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.899 [place] [id number] [place] [address] 28140- 4000 Mar, [facility] [id number] [place] [address] 58184- 0092 Jan, Post-traumatic stress disorder, chronic F43.12 and Depression F32.9 [facility] [id number] [place] [address] 37961- 3092 Dec, [facility] [id number] [place] [address] 25064- 1524 Nov, Shoulder pain, left M25.512 and Bronchitis J40 [facility] [id number] [place] [address] 09715- 1658 Sep, Hyperlipidemia E78.5 [facility] [id number] [place] [address] 05821- 5716 Sep, Hyperlipidemia E78.5 [facility] [id number] [place] [address] 83835- 0282 Sep, [facility] [id number] [place] [address]- 7121 15 Sep, 2015 Back pain M54.9 ; CAD (coronary artery disease) I25.10 and Depression F32.9 [facility] [address] 64430- 6481 Sep, URI (upper respiratory infection) J06.9 ; Nausea & vomiting R11.2 and Tobacco abuse Z72.0 [facility] [address] 06525- 2141 Mar, Posttraumatic stress disorder 309.81 ; Major depressive disorder, recurrent episode, in partial remission 296.35 ; Nightmares associated with chronic post-traumatic stress disorder 307.47 ; Thoracic or lumbosacral neuritis or radiculitis, unspecified 724.4 ; Borderline personality disorder 301.83 and High risk medication use V58.69 [facility] [address] 61772- 6219 Jan, [facility] [address] 88347- 3192 Jan, [facility] [address] 76922- 7397 Dec, [facility] [address] 40773- 9474 Dec, [facility] [id number] [place] [address] 69874- 1768 Sep, [facility] [address] 62886- 2543 Sep, [facility] [address] 11181- 7057 Sep, [facility] [address] 78976- 5443 Sep, [facility] [address] 61928- 2036 Sep, [facility] [place] [facility] [address] [id number] [place] [address]- 1190 Jul, [facility] [place] [facility] [address] [id number] [place] [address]- 6061 Jul, [facility] [place] [facility] [address] [id number] [place] [address]- 5708 Jul, [facility] [place] [facility] [address] [id number] [place] [address]- 0307 Jul, [facility] [place] [facility] [address] [id number] [place] [address]- 1300 Jul, [facility] [place] [facility] [address] [id number] [place] [address]- 2816 Jul, [facility] [place] [facility] [address] [id number] [place] [address]- 1194 Jul, [facility] [place] [facility] [address] [id number] [place] [address]- 3669 Jul, [facility] [place] [facility] [address] [id number] [place] [address]- 2119 May, [facility] [place] [facility] [address] [id number] [place] [address]- 5122 May, [facility] [place] [facility] [address] [id number] [place] [address]- 8716 May, [facility] [place] [facility] [address] [id number] [place] [address]- 4146 May, [facility] [place] [facility] [address] [id number] [place] [address]- 0019 May, [facility] [place] [facility] [address] [id number] [place] [address]- 9677 May, [facility] [place] [facility] [address] [id number] [place] [address]- 9954 Mar, [facility] [place] [facility] [address] [id number] [place] [address]- 9774 Mar, [facility] [place] [facility] [address] [id number] [place] [address]- 2410 February, [facility] [place] [facility] [address] [id number] [place] [address]- 0703 February, [facility] [place] [facility] [address] [id number] [place] [address]- 0564 February, [facility] [place] [facility] [address] [id number] [place] [address]- 8038 February, [facility] [place] [facility] [address] [id number] [place] [address]- 3327 February, [facility] [place] [facility] [address] [id number] [place] [address]- 3871 February, [facility] [place] [facility] [address] [id number] [place] [address]- 9997 February, [facility] [place] [facility] [address] [id number] [place] [address]- 5629 Jan, [facility] [place] [facility] [address] [id number] [place] [address]- 9892 Jan, [facility] [place] [facility] [address] [id number] [place] [address]- 5963 Jan, [facility] [place] [facility] [address] [id number] [place] [address]- 5769 Jan, [facility] [place] [facility] [address] [id number] [place] [address]- 5881 Dec, [facility] [place] [facility] [address] [id number] [place] [address]- 9237 Dec, [facility] [place] [facility] [address] [id number] [place] [address]- 5322 Dec, [facility] [place] [facility] [address] [id number] [place] [address]- 5560 Dec, [facility] [place] [facility] [address] [id number] [place] [address]- 5753 Nov, [facility] [place] [facility] [address] [id number] [place] [address]- 2616 Nov, [facility] [place] [facility] [address] [id number] [place] [address]- 6496 Nov, [facility] [place] [facility] [address] [id number] [place] [address]- 4006 Nov, [facility] [place] [facility] [address] [id number] [place] [address]- 2546 Nov, [facility] [place] [facility] [address] [id number] [place] [address]- 1076 Nov, [facility] [place] [facility] [address] [id number] [place] [address]- 3376 Nov, [facility] [place] [facility] [address] [id number] [place] [address]- 4226 Nov, [facility] [place] [facility] [address] [id number] [place] [address]- 7796 Oct, [facility] [place] [facility] [address] [id number] [place] [address]- 3261 Oct, [facility] [place] [facility] [address] [id number] [place] [address]- 5248 Oct, [facility] [place] [facility] [address] [id number] [place] [address]- 7745 Oct, [facility] [place] [facility] [address] [id number] [place] [address]- 254 Oct, [facility] [place] [facility] [address] [id number] [place] [address]- 6796 Oct, [facility] [place] [facility] [address] [id number] [place] [address]- 9666 Oct, [facility] [place] [facility] [address] [id number] [place] [address]- 3599 Oct, [facility] [place] [facility] [address] [id number] [place] [address]- 6095 Oct, [facility] [place] [facility] [address] [id number] [place] [address]- 8499 Oct, [facility] [place] [facility] [address] [id number] [place] [address]- 2696 Oct, [facility] [place] [facility] [address] [id number] [place] [address]- 8796 Aug, [facility] [place] [facility] [address] [id number] [place] [address]- 4692 Aug, [facility] [place] [facility] [address] [id number] [place] [address]- 4009 Jul, [facility] [place] [facility] [address] [id number] [place] [address]- 6181 Jul, [facility] [place] [facility] [address] [id number], [place] [address]- 0530 Jul, [facility] [place] [facility] [address] [id number] [place] [address]- 4802 Jul, [facility] [place] [facility] [address] [id number], [place] [address]- 0936 Jun, [facility] [place] [facility] [address] [id number], [place] [address]- 8967 Jun, [facility] [place] [facility] [address] [id number], [place] [address]- 0375 Jan, [facility] [place] [facility] [address] [id number] [place] [address]- 7026 Oct, [facility] [place] [facility] [address] [id number][place] 0157 Sep, [facility] [place] [facility] [address] [id number] [place] 7690 Sep, [facility] [place] [facility] [address] [id number] [place] [address]- 8503 07 Sep, 2012 [facility] [place] [facility] [address] [id number] [place] [address]- 3560 Sep, [facility] [place] [facility] [address] [id number] [place] [address]- 8305 Aug, [facility] [place] [facility] [address] [id number] [place] [address]- 8868 Aug, [facility] [place] [facility] [address] [id number] [place] [address]- 2658 Aug, [facility] [place] [facility] [address] [id number] [place] [address]- 9940 Aug, [facility] [place] [facility] [address] [id number] [place] [address]- 1981 Jul, [facility] [place] [facility] [address] [id number] [place] [address]- 2036 Jul, [facility] [place] [facility] [address] [id number] [place] [address]- 8956 Jul, [facility] [place] [facility] [address] [id number] [place] [address]- 1099 Jul, [facility] [place] [facility] [address] [facility] [id number] [place] [address]- 8369 Jul, [facility] [place] [facility] [address] [id number] [place] [address]- 4876 Jun, [facility] [place] [facility] [address] [id number] [place] [address]- 8095 Jun, [facility] [place] [facility] [address] [id number] [place] [address]- 8548 Jun, [facility] [place] [facility] [address] [id number] [place] [address]- 6364 May, [facility] [place] [facility] [address] [facility] [id number] [place] [address]- 1859 May, [facility] [place] [facility] [address] [id number] [place] [address]- 0144 Apr, [facility] [place] [facility] [address] [id number] [place] [address]- 6580 Apr, [facility] [place] [facility] [address] [id number] [place] [address]- 2906 Apr, [facility] [place] [facility] [address] [id number] [place] [address]- 0634 Apr, [facility] [place] [facility] [address] [id number] [place] [address]- 5790 Mar, [facility] [place] [facility] [address] [id number] [place] [address]- 2694 Mar, [facility] [place] [facility] [address] [id number] [place] [address] Mar, [facility] [place] [facility] [address] [id number] [place] [address] February, [facility] [place] [facility] [address] [id number] [place] [address] February, [facility] [place] [facility] [address] [id number] [place] [address] February, [facility] [place] [facility] [address] [id number] [place] [address] February, [facility] [place] [facility] [address] [id number] [place] [address] February, [facility] [place] [facility] [address] [id number] [place] [address] Jan, [facility] [place] [facility] [address] [id number] [place] [address] Jan, [facility] [place] [facility] [address] [id number] [place] [address] Jan, [facility] [place] [facility] [address] [id number] [place] [address] 30 Dec, 2011 [facility] [place] [facility] [address] [id number] [place] [address] 30 Dec, 2011 [facility] [place] [facility] [address] [id number] [place] [address] Dec, [facility] [place] [facility] [address] [id number] [place] [address] 29 Nov, 2011 [facility] [place] [facility] [address] [id number] [place] [address] 16 Nov, 2011 [facility] [place] [facility] [address] [id number] [place] [address] Nov, [facility] [place] [facility] [address] [id number] [place] [address] Nov, [facility] [address] [id number] [place] [address] Oct, [facility] [place] [facility] [address] [id number] [place] [address] Oct, [facility] [place] [facility] [address] [id number] [place] [address] Sep, [facility] [place] [facility] [address] [id number] [place] [address] Sep, [facility] [place] [facility] [address] [id number] [place] [address] 14 Sep, 2011 [facility] [place] [facility] [address] [id number] [place] [address] 05 Sep, 2011 [facility] [place] [facility] [address] [id number] [place] [address] 28 Aug, 2011 [facility] [place] [facility] [address] [id number] [place] [address] 10 Aug, 2011 [facility] [place] [facility] [address] [facility] [id number] [place] [address] 08 Aug, 2011 [facility] [place] [facility] [address] [id number] [place] [address] 31 Jul, 2011 [facility] [address] [id number] [place] [address] Jul, [facility] [place] [facility] [address] [id number] [place] [address] Jul, [facility] [address] [id number] [place] [id number] May, [facility] [place] [facility] [address] [id number] [place] [address] February, [facility] [place] [facility] [address] [id number] [place] [address] Nov, [facility] [place] [facility] [address] [id number] [place] [address] Oct, [facility] [place] [facility] [address] [id number] [place] [address] Oct, [facility] [address] [id number] [place] [address] Sep, [facility] [place] [facility] [address] [id number] [place] [address] 17 Sep, 2010 [facility] [place] [facility] [address] [id number] [place] [address] 17 Sep, 2010 [facility] [place] [facility] [address] [id number] [place] [address] 16 Sep, 2010 [facility] [place] [facility] [address] [id number] [place] [address] 10 Sep, 2010 [facility] [place] [facility] [address] [id number] [place] [address] Sep, [facility] [place] [facility] [address] [id number] [place] [address] 29 Aug, 2010 [facility] [place] [facility] [address] [id number] [place] [address] 23 Aug, 2010 [facility] [place] [facility] [address] [id number] [place] [address] 18 Aug, 2010 [facility] [place] [facility] [address] [id number] [place] [address] 17 Aug, 2010 [facility] [place] [facility] [address] [id number] [place] [address] 16 Aug, 2010 [facility] [place] [facility] [address] [id number], [place] [address] 25 Jul, 2010 [facility] [place] [facility] [address] [id number] [place] [address] 16 Jun, 2010 [facility] [place] [facility] [address] [id number], [place] [address] February, [facility] [place] [facility] [address] [id number] [place] [address] Oct, [facility] [place] [facility] [address] [id number], [place] [address] Sep, [facility] [place] [facility] [address] [id number], [place] [address] 24 Aug, 2009 [facility] [place] [facility] [address] [id number], [place] [address] 03 Aug, 2009 [facility] [place] [facility] [address] [id number], [place] [address] 02 Aug, 2009 [facility] [place] [facility] [address] [id number], [place] [address] 20 Jul, 2009 [facility] [place] [facility] [address] [id number], [place] [address] 15 Jul, 2009 [facility] [place] [facility] [address] [id number], [place] [address] 15 Jul, 2009 [facility] [place] [facility] [address] [id number], [place] [address] 14 Jun, 2009 [facility] [place] [facility] [address] [facility] [id number] [place] [address] 10 Jun, 2009 [facility] [address] [facility] [id number], [place] [address] 16 Mar, 2009 [facility] [address] [facility] [id number], [place] [address] Jan, [facility] [address] [facility] [id number][place] [id number] Aug, IMMUNIZATIONS No Known Immunizations SOCIAL HISTORY Never Assessed REASON FOR VISIT JOE Arce orders PLAN OF CARE VITAL SIGNS MEDICATIONS Unknown Medications RESULTS No Results PROCEDURES No Known procedures INSTRUCTIONS MEDICATIONS ADMINISTERED No Known Medications MEDICAL (GENERAL) HISTORY Type Description Date Medical History Unspecified local infection of skin and subcutaneous tissue Medical History Contusion of unspecified site Medical History Hx of cardiac infarction Medical History hyperlipidemia Medical History mitral valve prolapse Medical History infected tooth rt side top Surgical History appendectomy Surgical History hysterectomy due to cancer Surgical History left foot surgery at 1yo Surgical History heart cath x 2 Hospitalization History surgeries Hospitalization History Denies any past psychiatric hospitalization
--- OUTSIDE RECORDS SUMMARY | 2018-11-13 11:39 | XMS REPORT ---
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 Name Role Phone SAADIA WALTERS Unavailable PROBLEMS Type Condition ICD9-CM Code DNS00-PV Code Onset Dates Condition Status SNOMED Code Problem Borderline personality disorder F60.3 Active 04155400 Problem Post-traumatic stress disorder, chronic F43.12 Active 01450775 Problem Carpal tunnel syndrome of right wrist G56.01 Active [id number] Problem PAD (peripheral artery disease) I73.9 Active 643077855 Problem Anxiety F41.9 Active 63173718 Problem Cannabis use disorder, mild, abuse F12.10 Active 96925766 Problem Bipolar affective, depress, mod F31.32 Active 540848956 Problem Fibromyalgia M79.7 Active 054344115 Problem Cervical radiculopathy M54.12 Active 26556818 Problem CAD (coronary artery disease) I25.10 Active 93710138 Problem Depression F32.9 Active 05824672 Problem Back pain M54.9 Active 379257704 Problem Tobacco abuse Z72.0 Active 74944915 Problem Hyperlipidemia E78.5 Active 70611055 ALLERGIES Substance Reaction Event Type Date Status Aspir-81 nausea Drug Allergy Aug, Active IV Dye nausea Non Drug Allergy Aug, Active ENCOUNTERS Encounter Location Date Diagnosis [facility] [place] [id number] [address] Oct, [facility] [place] [id number] [place] [address] 96532- 8574 Sep, [facility] [id number] [place] [address] [id number] Sep, Caries K02.9 [facility] [address] [place] [address] [id number] Aug, Dental examination Z01.20 and Caries K02.9 [facility] [place] [id number] [place] [address] 75977- 6511 Aug, Cervical radiculopathy M54.12 [facility] [place] [address] 8[address]17- 0296 Aug, Cervical radiculopathy M54.12 [facility] [place] [address] 01547- 5296 Aug, [place] [address] [address] 398090- 3509 Aug, Post-traumatic stress disorder, chronic F43.12 ; Bipolar affective, depress, mod F31.32 ; Borderline personality disorder F60.3 ; Cannabis use disorder, mild, abuse F12.10 and Other correction (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.899 [address] [address] [address]56- 1851 Jul, Cervical radiculopathy M54.12 [place] [address] 53807- 9297 Jul, Hoarseness, persistent R49.0 [place] [address] 09075- 9039 Jul, [place] [address] 17791- 4804 Jul, Dental abscess K04.7 ; Cervical radiculopathy M54.12 and Allergic state, initial encounter T78.40XA [place] [id number] [place] [address] 25962- 0770 Jul, [place] [address] 69137- 1433 May, [facility] [place] [address] 89521- 6555 May, [place] [address] 41763- 6703 Apr, Post-traumatic stress disorder, chronic F43.12 ; Bipolar affective, depress, mod F31.32 ; Borderline personality disorder F60.3 and Cannabis use disorder, mild, abuse F12.10 [place] [address] [place] [address] 78032- 9940 Apr, Cervical radiculopathy M54.12 ; Back pain M54.9 ; Fibromyalgia M79.7 and High risk heterosexual behavior Z72.51 [place] [id number] [place] [address] 70297- 8371 Apr, [place] [id number] [place] [address] 72298- 2186 Mar, Bipolar affective, depress, mod F31.32 ; Post-traumatic stress disorder, chronic F43.12 ; Borderline personality disorder F60.3 and Cannabis use disorder, mild, abuse F12.10 [place] [id number] [place] [address] 47210- 0764 Mar, Tobacco abuse Z72.0 [place] [id number] [place] [address] 61750- 2040 Mar, [place] [id number] [place] [address] 67111- 1798 February, Fibromyalgia M79.7 [place] [id number] [place] [address] 14580- 9421 Jan, Post-traumatic stress disorder, chronic F43.12 ; Bipolar affective, depress, mod F31.32 ; Borderline personality disorder F60.3 and Cannabis use disorder, mild, abuse F12.10 [place] [id number] [place] [address] 65900- 8393 Jan, [place] [address] 826355- 7530 Dec, Bipolar affective, depress, mod F31.32 ; Post-traumatic stress disorder, chronic F43.12 ; Borderline personality disorder F60.3 and Cannabis use disorder, mild, abuse F12.10 [place] [address] [place] [address] 03748- 1184 Dec, Hoarseness R49.0 ; Bronchitis J40 ; PAD (peripheral artery disease) I73.9 and Tobacco abuse Z72.0 [place] [id number] [place] [address] 46887- 3041 Nov, Bipolar affective, depress, mod F31.32 ; Post-traumatic stress disorder, chronic F43.12 ; Borderline personality disorder F60.3 and Cannabis use disorder, mild, abuse F12.10 [place] [id number] [place] [address] 70811- 5636 Oct, Post-traumatic stress disorder, chronic F43.12 ; Bipolar affective, depress, mod F31.32 ; Borderline personality disorder F60.3 and Cannabis use disorder, mild, abuse F12.10 [place] [id number] [place] [address] 86092- 7478 Oct, Bipolar affective, depress, mod F31.32 ; Post-traumatic stress disorder, chronic F43.12 and Borderline personality disorder F60.3 [place] [id number] [place] [address] 41652- 0716 Sep, Anxiety F41.9 [id number] [place] [address] 60716- 1683 Aug, Bipolar affective, depress, mod F31.32 ; Post-traumatic stress disorder, chronic F43.12 and Borderline personality disorder F60.3 [address] [address] [place] [address] 00681- 0887 Aug, Bipolar affective, depress, mod F31.32 ; Post-traumatic stress disorder, chronic F43.12 and Borderline personality disorder F60.3 [address] [id number] [place] [address] 36578- 0690 Aug, Fibromyalgia M79.7 ; Back pain M54.9 and Cervical radiculopathy M54.12 [id number] [place] [address] Aug, Bipolar affective, depress, mod F31.32 and Post-traumatic stress disorder, chronic F43.12 [address] [id number] [place] [address] 5228 Jul, Depression F32.9 ; Borderline personality disorder F60.3 and Bipolar affective, depress, mod F31.32 [address] [address] 575443- 8438 Jul, Post-traumatic stress disorder, chronic F43.12 ; Bipolar affective, depress, mod F31.32 ; Borderline personality disorder F60.3 and Cannabis use disorder, mild, abuse F12.10 [place] [id number] [place] [address] 873 Jul, Other correction (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.899 [address] [id number] [place] [address] 562002- 9949 Jun, [place] [address] 13676- 3409 Jun, Depression F32.9 ; Borderline personality disorder F60.3 and Bipolar affective, depress, mod F31.32 [place] [id number] [place] [address] 16183- 9054 Jun, Depression F32.9 and Borderline personality disorder F60.3 [place] [id number] [place] [address] 16277- 9051 May, Post-traumatic stress disorder, chronic F43.12 [address] [address] [place] [address] 77887- 9555 May, Depression F32.9 and Borderline personality disorder F60.3 [place] [id number] [place] [address] [address]90 Apr, Post-traumatic stress disorder, chronic F43.12 ; Bipolar affective, depress, mod F31.32 ; Borderline personality disorder F60.3 ; Other correction (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.899 and Cannabis use disorder, mild, abuse F12.10 [facility] [place] [id number] [place] [address] 81162- 6970 Apr, Depression F32.9 and Borderline personality disorder F60.3 [facility] [place] [id number] [place] [address] 16761- 5034 Apr, Depression F32.9 and Borderline personality disorder F60.3 [facility] [place] [id number] [place] [address] 94504- 4861 Mar, Depression F32.9 and Borderline personality disorder F60.3 [address] [id number] [place] [address] 54799- 6493 February, Depression F32.9 and Borderline personality disorder F60.3 [address] [id number] [place] [address] 60940- 6190 February, Back pain M54.9 [facility] [place] [id number] [place] [address] 90699- 7829 February, Depression F32.9 and Borderline personality disorder F60.3 [address] [id number] [place] [address] 04683- 4573 February, Post-traumatic stress disorder, chronic F43.12 ; Borderline personality disorder F60.3 and Bipolar affective disorder, depressed, mild F31.31 [facility] [place] [id number] [place] [address] 85725- 3836 February, [facility] [place] [id number] [place] [address] 64440- 2200 February, Depression F32.9 and Borderline personality disorder F60.3 [facility] [place] [id number] [place] [address] 81069- 6692 Jan, [facility] [place] [id number] [place] [address] 84702- 4699 Jan, Depression F32.9 and Borderline personality disorder F60.3 [address] [address] [place] [address] 87963- 3513 Jan, Acute lateral meniscus tear of right knee, initial encounter S83.281A [address] [id number] [place] [address] 35611- 4929 Jan, Depression F32.9 and Borderline personality disorder F60.3 [address] [id number] [place] [address] 17277- 7831 Dec, Depression F32.9 and Borderline personality disorder F60.3 [address] [id number] [place] [address] 57645- 0535 Dec, Depression F32.9 and Borderline personality disorder F60.3 [address] [id number] [place] [address] 62910- 1768 28 Nov, 2016 Hyperlipidemia E78.5 ; Knee locking, right M23.91 and Carpal tunnel syndrome of right wrist G56.01 [address] [id number] [place] [address] 61135- 7447 23 Nov, 2016 Bipolar affective, depress, mod F31.32 ; Post-traumatic stress disorder, chronic F43.12 and Borderline personality disorder F60.3 [address] [id number] [place] [address] 05214- 8552 16 Nov, 2016 Depression F32.9 and Borderline personality disorder F60.3 [address] [id number] [place] [address] 35888- 2222 Oct, Post-traumatic stress disorder, chronic F43.12 and Other correction (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.899 [address] [address] 33875- 8265 Oct, Nondisplaced fracture of distal end of right radius with routine healing, subsequent encounter S52.501D [place] [id number] [place] [address] 81296- 6895 Sep, [place] [id number] [place] [address] 55464- 2738 Aug, Right wrist fracture, closed, initial encounter S62.101A [address] [address] 64892- 2234 Aug, [place] [address] 19774- 4773 Jul, Back pain M54.9 and Hyperlipidemia E78.5 [address] [address] 52252- 1591 Jul, Post-traumatic stress disorder, chronic F43.12 and 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 [address] [address] 28557- 5628 Apr, Bipolar affective, depress, mod F31.32 ; Post-traumatic stress disorder, chronic F43.12 and 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 [address] [address] 61130- 6986 Mar, [address] [address] 11166- 4549 Jan, Post-traumatic stress disorder, chronic F43.12 and Depression F32.9 [address] [address] 71555- 9074 Dec, [place] [id number] [place] [address] 78322- 6408 Nov, Shoulder pain, left M25.512 and Bronchitis J40 [address] [id number] [place] [address] 58150- 1260 Sep, Hyperlipidemia E78.5 [address] [address] 02196- 6211 Sep, Hyperlipidemia E78.5 [address] [address] 82454- 1423 Sep, [facility] [place] [id number] [place] [address] 56357- 5545 15 Sep, 2015 Back pain M54.9 ; CAD (coronary artery disease) I25.10 and Depression F32.9 [facility] [place] [id number] [place] [address] 87424- 5462 11 Sep, 2015 URI (upper respiratory infection) J06.9 ; Nausea & vomiting R11.2 and Tobacco abuse Z72.0 [facility] [place] [id number] [place] [address] 74118- 1116 Mar, Posttraumatic stress disorder 309.81 ; Major depressive disorder, recurrent episode, in partial remission 296.35 ; Nightmares associated with chronic post-traumatic stress disorder 307.47 ; Thoracic or lumbosacral neuritis or radiculitis, unspecified 724.4 ; Borderline personality disorder 301.83 and High risk medication use V58.69 [facility] [place] [address] 24011- 9262 Jan, [facility] [place] [id number] [place] [address] 96299- 8166 Jan, [facility] [place] [id number] [place] [address] 51592- 5913 Dec, [facility] [place] [id number] [place] [address] 42171- 8526 Dec, [facility] [place] [id number] [place] [address] 67340- 1168 Sep, [facility] [place] [id number] [place] [address] 32136- 6444 Sep, [facility] [place] [address] 08336- 7793 Sep, [facility] [place] [id number] [place] [address] 987290- 0489 Sep, [facility] [place] [address] 04138- 9397 Sep, [facility] [place] [facility] [address] [id number] [place] [address]- 2513 Jul, [facility] [place] [facility] [address] [id number] [place] [address]- 2009 Jul, [facility] [place] [facility] [address] [id number] [place] [address]- 8497 Jul, [facility] [place] [facility] [address] [id number] [place] [address]- 0202 Jul, [facility] [place] [facility] [address] [id number] [place] [address]- 5451 Jul, [facility] [place] [facility] [address] [id number] [place] [address]- 3473 Jul, [facility] [place] [facility] [address] [id number] [place] [address]- 1887 Jul, [facility] [place] [facility] [address] [id number] [place] [address]- 3709 Jul, [facility] [place] [facility] [address] [id number] [place] [address]- 2401 May, [facility] [place] [facility] [address] [id number] [place] [address]- 3986 May, [facility] [place] [facility] [address] [id number] [address]- 4504 May, [facility] [place] [facility] [address] [id number] [address]- 0366 May, [facility] [place] [facility] [address] [id number] [place] [address]- 3580 May, [facility] [place] [facility] [address] [id number] [address]- 8894 May, [facility] [place] [facility] [address] [id number] [place] [address]- 1047 Mar, [facility] [place] [facility] [address] [id number] [place] [address]- 1062 Mar, [facility] [place] [facility] [address] [id number] [place] [address]- 9006 February, [facility] [place] [facility] [address] [id number] [place] [address]- 4910 February, [facility] [place] [facility] [address] [id number] [place] [address]- 1966 February, [facility] [place] [facility] [address] [id number] [place] [address]- 0588 February, [facility] [place] [facility] [address] [id number] [place] [address]- 3631 February, [facility] [place] [facility] [address] [id number] [place] [address]- 0345 February, [facility] [place] [facility] [address] [id number] [place] [address]- 2932 February, [facility] [place] [facility] [address] [id number] [place] [address]- 1845 Jan, [facility] [place] [facility] [address] [id number] [place] [address]- 9198 Jan, [facility] [place] [facility] [address] [id number] [place] [address]- 8329 Jan, [facility] [place] [facility] [address] [id number] [place] [address]- 5784 Jan, [facility] [place] [facility] [address] [id number] [place] [address]- 6543 Dec, [facility] [place] [facility] [address] [id number] [place] [address]- 2908 Dec, [facility] [place] [facility] [address] [id number] [place] [address]- 7382 Dec, [facility] [place] [facility] [address] [id number] [place] [address]- 1201 Dec, [facility] [place] [facility] [address] [id number] [place] [address]- 7510 Nov, [facility] [place] [facility] [address] [id number] [place] [address]- 9056 Nov, [facility] [place] [facility] [address] [id number] [place] [address]- 0706 Nov, [facility] [place] [facility] [address] [id number] [place] [address]- 3676 Nov, [facility] [place] [facility] [address] [id number] [place] [address]- 5689 Nov, [facility] [place] [facility] [address] [id number] [place] [address]- 3611 Nov, [facility] [place] [facility] [address] [id number] [place] [address]- 4956 Nov, [facility] [place] [facility] [address] [id number] [place] [address]- 7492 Nov, [facility] [place] [facility] [address] [id number] [place] [address]- 0245 Oct, [facility] [place] [facility] [address] [id number] [place] [address]- 4735 Oct, [facility] [place] [facility] [address] [id number] [place] [address]- 7588 Oct, [facility] [place] [facility] [address] [id number] [place] [address]- 5812 Oct, [facility] [place] [facility] [address] [id number] [place] [address]- 3830 Oct, [facility] [place] [facility] [address] [id number] [place] [address]- 0209 Oct, [facility] [place] [facility] [address] [id number] [place] [address]- 6370 Oct, [facility] [place] [facility] [address] [id number] [place] [address]- 5926 Oct, [facility] [address] [id number] [place] [address]- 2874 Oct, [facility] [place] [facility] [address] [id number] [place] [address]- 6412 Oct, [facility] [address] [id number] [place] [address]- 4773 Oct, [facility] [place] [facility] [address] [id number] [place] [address]- 9548 Aug, [facility] [place] [facility] [address] [id number] [place] [address]- 9712 Aug, [facility] [place] [facility] [address] [id number] [place] [address]- 8042 Jul, [facility] [address] [id number] [place] [address]- 2992 Jul, [facility] [place] [facility] [address] [id number] [place] [address]- 5885 Jul, [facility] [place] [facility] [address] [id number] [place] [address]- 8422 Jul, [facility] [place] [facility] [address] [id number] [place] [address]- 6154 Jun, [facility] [place] [facility] [address] [id number] [place] [address]- 0927 Jun, [facility] [place] [facility] [address] [id number] [place] [address]- 0714 Jan, [facility] [place] [facility] [address] [id number] [place] [address]- 0360 Oct, [facility] [place] [facility] [address] [id number] [place] 2599 Sep, [facility] [place] [facility] [address] [id number] [place] 4759 Sep, [facility] [place] [facility] [address] [id number] [place] [address]- 5102 Sep, [facility] [place] [facility] [address] [id number] [place] [address]- 1326 Sep, [facility] [place] [facility] [address] [id number] [place] [address]- 1295 Aug, [facility] [place] [facility] [id number] [place] [address], [place] [address]- 2529 Aug, [facility] [place] [facility] [address] [id number] [place] [address]- 0877 Aug, [facility] [place] [facility] [address] [id number] [place] [address]- 4666 Aug, [facility] [place] [facility] [address] [id number] [place] [address]- 5222 Jul, [facility] [place] [facility] [address] [id number] [place] [address] Jul, [facility] [place] [facility] [address] [id number] [place] [address] Jul, [facility] [place] [facility] [address] [id number] [place] [address] Jul, [facility] [place] [facility] [address] [id number] [place] [address] Jul, [facility] [place] [facility] [address] [id number] [place] [address] Jun, [facility] [place] [facility] [address] [id number] [place] [address] Jun, [facility] [place] [facility] [address] [id number] [place] [address] Jun, [facility] [place] [facility] [address] [id number] [place] [address] May, [facility] [place] [facility] [address] [id number] [place] [address] May, [facility] [place] [facility] [address] [id number] [place] [address] Apr, [facility] [place] [facility] [address] [id number] [place] [address] Apr, [facility] [place] [facility] [address] [id number] [place] [address] Apr, [facility] [place] [facility] [address] [id number] [place] [address] Apr, [facility] [place] [facility] [address] [id number] [place] [address] Mar, [facility] [place] [facility] [address] [id number] [place] [address] Mar, [facility] [place] [facility] [address] [id number] [place] [address] Mar, [facility] [place] [facility] [address] [id number] [place] [address] February, [facility] [place] [facility] [address] [id number] [place] [address] February, [facility] [place] [facility] [address] [id number] [place] [address] February, [facility] [place] [facility] [address] [id number] [place] [address] February, [facility] [place] [facility] [address] [id number] [place] [address] February, [facility] [place] [facility] [address] [id number] [place] [address] Jan, [facility] [place] [facility] [address] [id number] [place] [address] Jan, [facility] [place] [facility] [address] [id number] [place] [address] Jan, [facility] [place] [facility] [address] [id number] [place] [address] 30 Dec, 2011 [facility] [address] [id number] [place] [address] 30 Dec, 2011 [facility] [place] [facility] [address] [id number] [place] [address] 26 Dec, 2011 [facility] [place] [facility] [address] [id number] [place] [address] 29 Nov, 2011 [facility] [place] [facility] [address] [id number] [place] [address] 16 Nov, 2011 [facility] [place] [facility] [address] [id number] [place] [address] 07 Nov, 2011 [facility] [facility] [address] [id number] [place] [address] 06 Nov, 2011 [facility] [place] [facility] [address] [id number] [place] [address] 30 Oct, 2011 [facility] [place] [facility] [address] [id number] [place] [address] Oct, [facility] [place] [facility] [address] [id number] [place] [address] 30 Sep, 2011 [facility] [place] [facility] [address] [facility] [id number] [place] [address] 30 Sep, 2011 [facility] [place] [facility] [address] [id number] [place] [address]46 14 Sep, 2011 [facility] [place] [facility] [address] [id number] [place] [address]46 05 Sep, 2011 [facility] [place] [facility] [address] [id number] [place] [address]46 28 Aug, 2011 [facility] [place] [facility] [address] [id number] [place] [address] 2546 10 Aug, 2011 [facility] [place] [facility] [address] [facility] [id number] [place] [address] Aug, [facility] [place] [facility] [address] [id number] [place] [address] Jul, [facility] [place] [facility] [address] [id number] [place] [address] Jul, [facility] [place] [facility] [address] [id number] [place] [address] Jul, [facility] [place] [facility] [address] [id number] [place] [address] May, [facility] [place] [facility] [address] [id number] [place] [address] February, [facility] [place] [facility] [address] [id number] [place] [address] Nov, [facility] [place] [facility] [address] [id number] [place] [address] Oct, [facility] [place] [facility] [address] [id number] [place] [address] Oct, [facility] [place] [facility] [address] [id number] [place] [address] Sep, [facility] [place] [facility] [address] [id number] [place] [address] 17 Sep, 2010 [facility] [place] [facility] [address] [id number] [place] [address]65 17 Sep, 2010 [facility] [place] [facility] [address] [id number] [place] [address] 16 Sep, 2010 [facility] [place] [facility] [address] [id number] [place] [address] 10 Sep, 2010 [facility] [place] [facility] [address] [id number] [place] [address] 10 Sep, 2010 [facility] [place] [facility] [address] [id number] [place] [address] 37[address] 29 Aug, 2010 [facility] [place] [facility] [address] [id number] [place] [address] 23 Aug, 2010 [facility] [place] [facility] [address] [id number] [place] [address] 18 Aug, 2010 [facility] [place] [facility] [address] [id number] [place] [address] 2546 17 Aug, 2010 [facility] [place] [facility] [address] [id number] [place] [address] 2546 16 Aug, 2010 [facility] [place] [facility] [address] [id number] [place] [address] 2540 25 Jul, 2010 [facility] [facility] [address] [id number] [place] [address], [place] [address]- [address] 16 Jun, 2010 [facility] [place] [address] [id number] [place] [address] February, [facility] [address] [facility] [id number] [place] [address] Oct, [facility] [address] [id number] [place] [address] Sep, [facility] [place] [facility] [address] [id number] [place] [address] 24 Aug, 2009 [facility] [address] [facility] [id number] [place] [address] 03 Aug, 2009 [facility] [place] [facility] [address] [id number] [place] [address] 9736 02 Aug, 2009 [facility] [place] [facility] [address] [id number] [place] [address] 20 Jul, 2009 [facility] [address] [id number] [place] [address] 15 Jul, 2009 [facility] [address] [facility] [id number] [place] [address] 15 Jul, 2009 [facility] [address] [id number] [place] [address] 14 Jun, 2009 [facility] [place] [address] [facility] [id number] [place] [address] 10 Jun, 2009 [place] [address] [facility] [id number] [place] [address] 16 Mar, 2009 [facility] [place] [address] [facility] [id number] [place] [address] 13 Jan, 2009 [place] [address] [facility] [id number] [place] [address] Aug, IMMUNIZATIONS No Known Immunizations SOCIAL HISTORY Never Assessed REASON FOR VISIT DARRYL/twe PLAN OF CARE Activity Details Follow Up gudelia Reason:te #7 and srp VITAL SIGNS Height 67 in 2018-09-22 Blood pressure systolic 124 mmHg 2018-09-22 Blood pressure diastolic 80 mmHg 2018-09-22 MEDICATIONS Medication Instructions Dosage Frequency Start Date End Date Duration Status Pristiq 100 MG TAKE ONE TABLET BY MOUTH ONCE DAILY Active QUEtiapine Fumarate ER 200 MG TAKE ONE TABLET BY MOUTH ONCE DAILY IN THE EVENING Active QUEtiapine Fumarate ER 300 MG TAKE ONE TABLET BY MOUTH ONCE DAILY IN THE EVENING Active Pravastatin Sodium 40 MG TAKE ONE TABLET BY MOUTH ONCE DAILY (MUST HAVE APPOINTMENT WITH FASTING LIPIDS FOR FURTHER REFILLS) 30 Active Promethazine HCl 25 MG Orally 3 times a day for nausea 1 tablet as needed Jan, Not-Taking Pravastatin Sodium 80 MG Orally Once a day 1 tablet 24h 30 days Not- Taking Chantix Starting Month Fred 0.5 MG X 11 & 1 MG X 42 as directed Jan, Not-Taking Nitrostat 0.4 MG Sublingual 2 5 min prn 1 Active Ibuprofen 800 MG Orally Three times a day 1 tablet 8h Aug, Active RESULTS No Results PROCEDURES Procedure Date Ordered Result Body Site COMP ORAL EVALUATION - NEW/EST PT Sep 22, 2018 INTRAORL-PERIAPICAL 1 FILM [id number] Sep 22, 2018 PANORAMIC FILM SEE ALSO CODE [id number] Sep 22, 2018 BITEWINGS - FOUR FILMS Sep 22, 2018 INTRAORL-PERIAPICAL EA ADD FILM Sep 22, 2018 INTRAORL-PERIAPICAL EA ADD FILM Sep 22, 2018 INTRAORL-PERIAPICAL EA ADD FILM Sep 22, 2018 INTRAORL-PERIAPICAL EA ADD FILM Sep 22, 2018 INSTRUCTIONS MEDICATIONS ADMINISTERED No Known Medications MEDICAL [...]
--- OUTSIDE RECORDS SUMMARY | 2018-11-13 11:40 | XMS REPORT ---
Author Author MARIMAR JONES Organization [facility] Address [address] [place] [address] Care Team Providers Care Hearing Screen Coordinator Name Role Phone MARIMAR JONES Unavailable PROBLEMS Type Condition ICD9-CM Code [id number] Code Onset Dates Condition Status SNOMED Code Problem Borderline personality disorder F60.3 Active 71052763 Problem Post-traumatic stress disorder, chronic F43.12 Active 02115908 Problem Carpal tunnel syndrome of right wrist G56.01 Active [id number] Problem PAD (peripheral artery disease) I73.9 Active 194104070 Problem Anxiety F41.9 Active 34746088 Problem Cannabis use disorder, mild, abuse F12.10 Active 15067253 Problem Bipolar affective, depress, mod F31.32 Active 166270532 Problem Fibromyalgia M79.7 Active 381786170 Problem Cervical radiculopathy M54.12 Active 32211234 Problem CAD (coronary artery disease) I25.10 Active 41578743 Problem Depression F32.9 Active 68049200 Problem Back pain M54.9 Active 175097213 Problem Tobacco abuse Z72.0 Active 87077030 Problem Hyperlipidemia E78.5 Active 76180108 ALLERGIES No Information ENCOUNTERS Encounter Location Date Diagnosis [facility] [id number] [place] [address] 29286- 2786 Oct, [facility] [id number] [place] [address] [id number] Sep, Caries K02.9 [facility] [id number] [place] [address] [id number] Aug, Dental examination Z01.20 and Caries K02.9 [facility] [id number] [place] [address] 62360- 9620 Aug, Cervical radiculopathy M54.12 [facility] [id number] [place] [address] 59520- 8653 Aug, Cervical radiculopathy M54.12 [place] [address] 36756- 0006 Aug, [place] [address] 37546- 4365 Aug, Post-traumatic stress disorder, chronic F43.12 ; Bipolar affective, depress, mod F31.32 ; Borderline personality disorder F60.3 ; Cannabis use disorder, mild, abuse F12.10 and Other alf (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.899 [place] [address] 211477- 5851 Jul, Cervical radiculopathy M54.12 [place] [address] 84043- 2646 Jul, Hoarseness, persistent R49.0 [place] [address] 07038- 0003 Jul, [place] [address] 59891- 8963 Jul, Dental abscess K04.7 ; Cervical radiculopathy M54.12 and Allergic state, initial encounter T78.40XA [place] [address] 27316- 2170 Jul, [place] [id number] [place] [address] 04423- 7286 May, [place] [id number] [place] [address] 28167- 9924 May, [place] [address] 89018- 3058 Apr, Post-traumatic stress disorder, chronic F43.12 ; Bipolar affective, depress, mod F31.32 ; Borderline personality disorder F60.3 and Cannabis use disorder, mild, abuse F12.10 [place] [id number] [place] [address] 48057- 2438 Apr, Cervical radiculopathy M54.12 ; Back pain M54.9 ; Fibromyalgia M79.7 and High risk heterosexual behavior Z72.51 [place] [id number] [place] [address] 80197- 4967 Apr, [place] [address] 06205- 4931 Mar, Bipolar affective, depress, mod F31.32 ; Post-traumatic stress disorder, chronic F43.12 ; Borderline personality disorder F60.3 and Cannabis use disorder, mild, abuse F12.10 [place] [id number] [place] [address] 78007- 5010 Mar, Tobacco abuse Z72.0 [place] [id number] [place] [address] 98826- 0915 Mar, [place] [id number] [place] [address] 46839- 1061 February, Fibromyalgia M79.7 [place] [id number] [place] [address] 096832- 9775 Jan, Post-traumatic stress disorder, chronic F43.12 ; Bipolar affective, depress, mod F31.32 ; Borderline personality disorder F60.3 and Cannabis use disorder, mild, abuse F12.10 [place] [id number] [place] [address] 58416- 0953 Jan, [place] [id number] [place] [address] 34869- 6052 Dec, Bipolar affective, depress, mod F31.32 ; Post-traumatic stress disorder, chronic F43.12 ; Borderline personality disorder F60.3 and Cannabis use disorder, mild, abuse F12.10 [address] [place] [address] 44522- 9708 Dec, Hoarseness R49.0 ; Bronchitis J40 ; PAD (peripheral artery disease) I73.9 and Tobacco abuse Z72.0 [place] [address] [address]- 359 Nov, Bipolar affective, depress, mod F31.32 ; Post-traumatic stress disorder, chronic F43.12 ; Borderline personality disorder F60.3 and Cannabis use disorder, mild, abuse F12.10 [place] [id number] [place] [address] 714050- 256 Oct, Post-traumatic stress disorder, chronic F43.12 ; Bipolar affective, depress, mod F31.32 ; Borderline personality disorder F60.3 and Cannabis use disorder, mild, abuse F12.10 [place] [id number] [place] [address] 31524- 528 Oct, Bipolar affective, depress, mod F31.32 ; Post-traumatic stress disorder, chronic F43.12 and Borderline personality disorder F60.3 [place] [id number] [place] [address] 81672- 9723 Sep, Anxiety F41.9 [place] [id number] [place] [address] 43474- 001 Aug, Bipolar affective, depress, mod F31.32 ; Post-traumatic stress disorder, chronic F43.12 and Borderline personality disorder F60.3 [place] [id number] [place] [address] 83335- 7337 Aug, Bipolar affective, depress, mod F31.32 ; Post-traumatic stress disorder, chronic F43.12 and Borderline personality disorder F60.3 [place] [address] [place] [address] 04630- 3588 Aug, Fibromyalgia M79.7 ; Back pain M54.9 and Cervical radiculopathy M54.12 [place] [id number] [place] [address] 39322- 0973 Aug, Bipolar affective, depress, mod F31.32 and Post-traumatic stress disorder, chronic F43.12 [address] [place] [address] 02541- 2844 Jul, Depression F32.9 ; Borderline personality disorder F60.3 and Bipolar affective, depress, mod F31.32 [place] [address] [place] [address] 73592- 9579 Jul, Post-traumatic stress disorder, chronic F43.12 ; Bipolar affective, depress, mod F31.32 ; Borderline personality disorder F60.3 and Cannabis use disorder, mild, abuse F12.10 [place] [id number] [place] [address] 98711- 9528 Jul, 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 [place] [id number] [place] [address] 88542- 9426 Jun, [place] [id number] [place] [address] 25387- 3079 Jun, Depression F32.9 ; Borderline personality disorder F60.3 and Bipolar affective, depress, mod F31.32 [place] [id number] [place] [address] 72294- 2957 Jun, Depression F32.9 and Borderline personality disorder F60.3 [place] [address] [place] [address] 49009- 1736 May, Post-traumatic stress disorder, chronic F43.12 [place] [address] [place] [address] 13499- 5567 May, Depression F32.9 and Borderline personality disorder F60.3 [place] [address] [place] [address] 39996- 2203 Apr, Post-traumatic stress disorder, chronic F43.12 ; Bipolar affective, depress, mod F31.32 ; Borderline personality disorder F60.3 ; 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 and Cannabis use disorder, mild, abuse F12.10 [place] [address] [place] [address] 75516- 2928 Apr, Depression F32.9 and Borderline personality disorder F60.3 [facility] [id number] [place] [address] 98658- 3245 Apr, Depression F32.9 and Borderline personality disorder F60.3 [facility] [id number] [place] [address] 45180- 3388 Mar, Depression F32.9 and Borderline personality disorder F60.3 [facility] [id number] [place] [address] 49347- 9735 February, Depression F32.9 and Borderline personality disorder F60.3 [facility] [id number] [place] [address] 13396- 9500 February, Back pain M54.9 [facility] [id number] [place] [address] 66930- 0565 February, Depression F32.9 and Borderline personality disorder F60.3 [facility] [id number] [place] [address] 14778- 3546 February, Post-traumatic stress disorder, chronic F43.12 ; Borderline personality disorder F60.3 and Bipolar affective disorder, depressed, mild F31.31 [facility] [address] [place] [address] 91140- 3658 February, [facility] [address] [place] [address] 09360- 4262 February, Depression F32.9 and Borderline personality disorder F60.3 [facility] [address] [place] [address] 18357- 6076 Jan, [facility] [id number] [place] [address] 11744- 3088 Jan, Depression F32.9 and Borderline personality disorder F60.3 [facility] [address] [place] [address] 08217- 8517 Jan, Acute lateral meniscus tear of right knee, initial encounter S83.281A [place] [id number] [place] [address] 79087- 0770 Jan, Depression F32.9 and Borderline personality disorder F60.3 [place] [id number] [place] [address] 87004- 2366 Dec, Depression F32.9 and Borderline personality disorder F60.3 [place] [id number] [place] [address] 69057- 6958 Dec, Depression F32.9 and Borderline personality disorder F60.3 [place] [id number] [place] [address] 27652- 9736 Nov, Hyperlipidemia E78.5 ; Knee locking, right M23.91 and Carpal tunnel syndrome of right wrist G56.01 [place] [id number] [place] [address] 16484- 2890 23 Nov, 2016 Bipolar affective, depress, mod F31.32 ; Post-traumatic stress disorder, chronic F43.12 and Borderline personality disorder F60.3 [place] [id number] [place] [address] 08340- 5378 16 Nov, 2016 Depression F32.9 and Borderline personality disorder F60.3 [place] [id number] [place] [address] 25824- 8932 Oct, Post-traumatic stress disorder, chronic F43.12 and Other alf (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.899 [place] [id number] [place] [address] 28439- 3943 Oct, Nondisplaced fracture of distal end of right radius with routine healing, subsequent encounter S52.501D [place] [address] 88411- 3827 Sep, [place] [address] 35719- 8225 Aug, Right wrist fracture, closed, initial encounter S62.101A [place] [id number] [place] [address] 75408- 9890 Aug, [facility] [id number] [place] [address] 72223- 4729 Jul, Back pain M54.9 and Hyperlipidemia E78.5 [facility] [id number] [place] [address] 94499 2548 Jul, Post-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 stress disorder, chronic F43.12 and 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 [facility] [id number] [place] [address] 43761- 3340 Apr, Bipolar affective, depress, mod F31.32 ; Post-traumatic stress disorder, chronic F43.12 and Other alf (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.899 [facility] [id number] [place] [address] 31302- 3399 Mar, [facility] [id number] [place] [address] 79416- 0568 Jan, Post-traumatic stress disorder, chronic F43.12 and Depression F32.9 [place] [id number] [place] [address] 83714- 9837 Dec, [facility] [id number] [place] [address] 27378- 3544 Nov, Shoulder pain, left M25.512 and Bronchitis J40 [facility] [id number] [place] [address] 35576- 9083 Sep, Hyperlipidemia E78.5 [facility] [id number] [place] [address] 13213 2546 Sep, Hyperlipidemia E78.5 [facility] [id number] [place] [address] 68876- 6076 Sep, [facility] [id number] [place] [address] 89492 2546 Sep, Back pain M54.9 ; CAD (coronary artery disease) I25.10 and Depression F32.9 [facility] [id number] [place] [address] 00828- 6534 Sep, URI (upper respiratory infection) J06.9 ; Nausea & vomiting R11.2 and Tobacco abuse Z72.0 [facility] [id number] [place] [address] 32318- 9705 Mar, Posttraumatic stress disorder 309.81 ; Major depressive disorder, recurrent episode, in partial remission 296.35 ; Nightmares associated with chronic post-traumatic stress disorder 307.47 ; Thoracic or lumbosacral neuritis or radiculitis, unspecified 724.4 ; Borderline personality disorder 301.83 and High risk medication use V58.69 [facility] [id number] [place] [address] 51967- 8455 Jan, [facility] [address] 35197- 6897 Jan, [facility] [address] 42616- 4200 Dec, [facility] [address] 40471- 7946 Dec, [facility] [id number] [place] [address] 17317- 6362 Sep, [facility] [id number] [place] [address] 68146- 7918 Sep, [facility] [id number] [place] [address] 59129- 8135 Sep, [facility] [id number] [place] [address] 66296- 8154 Sep, [facility] [id number] [place] [address] 91257- 5203 Sep, [facility] [id number] [place] [address] 87595- 7084 Jul, [facility] [place] [facility] [address] [id number] [place] [address]- 3019 Jul, [facility] [place] [facility] [address] [id number] [place] [address]- 5875 Jul, [facility] [place] [facility] [address] [id number] [place] 5279 Jul, [facility] [place] [facility] [address] [id number] [place] [address]- 8439 Jul, [facility] [place] [facility] [address] [id number] [place] [address]- 5742 Jul, [facility] [place] [facility] [address] [id number] [place] [address]- 3284 Jul, [facility] [place] [facility] [address] [id number] [place] [address]- 1222 Jul, [facility] [place] [facility] [address] [id number] [place] [address]- 9348 May, [facility] [place] [facility] [address] [id number] [place] [address]- 6562 May, [facility] [place] [facility] [address] [id number] [place] [address]- 3014 May, [facility] [place] [facility] [address] [id number] [place] [address]- 1956 May, [facility] [place] [facility] [address] [id number] [place] [address]- 1060 May, [facility] [place] [facility] [address] [id number] [place] [address]- 5389 May, [facility] [place] [facility] [address] [id number] [place] [address]- 6435 Mar, [facility] [place] [facility] [address] [id number] [place] [address]- 5911 Mar, [facility] [place] [facility] [address] [id number] [place] [address]- 2260 February, [facility] [place] [facility] [address] [id number] [place] [address]- 2411 February, [facility] [place] [facility] [address] [id number] [place] [address]- 4938 February, [facility] [place] [facility] [address] [id number] [place] [address]- 5582 February, [facility] [place] [facility] [address] [id number] [place] [address]- 7624 February, [facility] [place] [facility] [address] [id number] [place] [address]- 0941 February, [facility] [place] [facility] [address] [id number] [place] [address]- 8279 February, [facility] [place] [facility] [address] [id number] [place] [address]- 7552 Jan, [facility] [place] [facility] [address] [id number] [place] [address]- 6855 Jan, [facility] [place] [facility] [address] [id number] [place] [address]- 7847 Jan, [facility] [place] [facility] [address] [id number] [place] [address]- 6958 Jan, [facility] [place] [facility] [address] [id number] [place] [address]- 8359 Dec, [facility] [place] [facility] [address] [id number] [address]- 9266 Dec, [facility] [place] [facility] [address] [id number] [place] [address]- 2030 Dec, [facility] [place] [facility] [address] [id number] [place] [address]- 9434 Dec, [facility] [place] [facility] [address] [id number] [place] [address]- 5042 Nov, [facility] [place] [facility] [address] [id number] [place] [address]- 5366 Nov, [facility] [place] [facility] [address] [id number] [place] [address]- 3616 Nov, [facility] [place] [facility] [address] [id number] [place] [address]- 7306 Nov, [facility] [place] [facility] [address] [id number] [place] [address]- 5346 Nov, [facility] [place] [facility] [address] [id number] [place] [address]- 8796 Nov, [facility] [place] [facility] [address] [id number] [place] [address]- 6166 Nov, [facility] [place] [facility] [address] [id number] [place] [address]- 5409 Nov, [facility] [place] [facility] [address] [id number] [place] [address]- 3349 Oct, [facility] [place] [facility] [address] [id number] [place] [address]- 8632 Oct, [facility] [place] [facility] [address] [id number] [place] [address]- 1011 Oct, [facility] [place] [facility] [address] [id number] [place] [address]- 6891 Oct, [facility] [place] [facility] [address] [id number] [place] [address]- 6083 Oct, [facility] [place] [facility] [address] [id number] [place] [address]- 2549 Oct, [facility] [place] [facility] [address] [id number] [place] [address]- 8671 Oct, [facility] [place] [facility] [address] [id number] [place] [address]- 1596 Oct, [facility] [place] [facility] [address] [id number] [place] [address]- 7959 Oct, [facility] [address] [id number] [place] [address]- 2249 Oct, [facility] [place] [facility] [address] [id number] [place] [address]- 3176 Oct, [facility] [place] [facility] [address] [id number] [place] [address]- 6511 Aug, [facility] [place] [facility] [address] [id number] [place] [address]- 4890 Aug, [facility] [place] [facility] [address] [id number] [place] [address]- 1673 Jul, [facility] [place] [facility] [address] [id number] [place] [address]- 6329 Jul, [facility] [place] [facility] [address] [id number] [place] [address]- 5321 Jul, [facility] [place] [facility] [address] [id number] [place] [address]- 6445 Jul, [facility] [place] [facility] [address] [id number] [place] [address]- 3352 Jun, [facility] [place] [facility] [address] [id number], [place] [address]- 0438 Jun, [facility] [place] [facility] [address] [id number], [place] [address]- 7422 Jan, [facility] [place] [facility] [address] [id number], [place] [address]- 6111 Oct, [facility] [place] [facility] [address] [id number] [place] [address]- 3763 Sep, [facility] [place] [facility] [address] [id number] [place] 8425 Sep, [facility] [place] [facility] [address] [id number] [place] [address]- 7040 Sep, [facility] [place] [facility] [address] [id number] [place] [address]- 8544 Sep, [facility] [place] [facility] [address] [id number] [place] [address]- 0534 Aug, [facility] [place] [facility] [address] [id number] [place] [address]- 1050 Aug, [facility] [place] [facility] [address] [id number] [place] [address]- 5348 Aug, [facility] [place] [facility] [address] [id number] [place] [address]- 8892 Aug, [facility] [place] [facility] [address] [id number] [place] [address]- 9664 Jul, [facility] [place] [facility] [address] [id number] [place] [address]- 6800 Jul, [facility] [place] [facility] [address] [id number] [place] [address]- 8095 Jul, [facility] [place] [facility] [address] [id number] [place] [address] Jul, [facility] [place] [facility] [address] [id number] [place] [address] Jul, [facility] [place] [facility] [address] [facility] [id number] [place] [address] Jun, [facility] [place] [facility] [address] [id number] [place] [address] Jun, [facility] [place] [facility] [address] [id number] [place] [address] Jun, [facility] [place] [facility] [address] [id number] [place] [address] May, [facility] [place] [facility] [address] [id number] [place] [address] May, [facility] [place] [facility] [address] [facility] [id number] [place] [address] Apr, [facility] [place] [facility] [address] [id number] [place] [address] Apr, [facility] [place] [facility] [address] [id number] [place] [address] Apr, [facility] [place] [facility] [address] [id number] [place] [address] Apr, [facility] [place] [facility] [address] [id number] [place] [address] Mar, [facility] [place] [facility] [address] [id number] [place] [address] Mar, [facility] [place] [facility] [address] [id number] [place] [address] Mar, [facility] [place] [facility] [address] [id number] [place] [address] February, [facility] [place] [facility] [address] [id number] [place] [address] February, [facility] [place] [facility] [address] [id number] [place] [address] February, [facility] [place] [facility] [address] [id number] [place] [address] February, [facility] [place] [facility] [address] [id number] [place] [address] February, [facility] [place] [facility] [address] [id number] [place] [address] Jan, [facility] [place] [facility] [address] [id number] [place] [address] Jan, [facility] [place] [facility] [address] [id number] [place] [address] Jan, [facility] [place] [facility] [address] [id number] [place] [address] Dec, [facility] [place] [facility] [address] [id number] [place] [address] 30 Dec, 2011 [facility] [place] [facility] [address] [id number] [place] [address] Dec, [facility] [place] [facility] [address] [id number] [place] [address] 29 Nov, 2011 [facility] [place] [facility] [address] [id number] [place] [address] 16 Nov, 2011 [facility] [place] [facility] [address] [id number] [place] [address] Nov, [facility] [place] [facility] [address] [id number] [place] [address] Nov, [facility] [place] [facility] [address] [id number] [place] [address] Oct, [facility] [address] [id number] [place] [address] Oct, [facility] [place] [facility] [address] [id number] [place] [address] Sep, [facility] [place] [facility] [address] [id number] [place] [address] Sep, [facility] [place] [facility] [address] [facility] [id number] [place] [address] Sep, [facility] [place] [facility] [address] [id number] [place] [address] 05 Sep, 2011 [facility] [place] [facility] [address] [id number] [place] [address] 28 Aug, 2011 [facility] [place] [facility] [address] [id number] [place] [address] 10 Aug, 2011 [facility] [place] [facility] [address] [facility] [id number] [place] [address] 08 Aug, 2011 [facility] [place] [facility] [address] [facility] [id number] [place] [address] 31 Jul, 2011 [facility] [place] [facility] [address] [id number] [place] [address] 31 Jul, 2011 [facility] [address] [id number] [place] [address] 31 Jul, 2011 [facility] [place] [facility] [address] [id number] [place] [address] May, [facility] [address] [id number] [place] [address] February, [facility] [place] [facility] [address] [id number] [place] [address] 17 Nov, 2010 [facility] [place] [facility] [address] [id number] [place] [address] 14 Oct, 2010 [facility] [place] [facility] [address] [id number] [place] [address] 10 Oct, 2010 [facility] [place] [facility] [address] [id number] [place] [address] 22 Sep, 2010 [facility] [address] [id number] [place] [address] 17 Sep, 2010 [facility] [place] [facility] [address] [id number] [place] [address] 17 Sep, 2010 [facility] [place] [facility] [address] [id number] [place] [address] 16 Sep, 2010 [facility] [place] [facility] [address] [id number] [place] [address] 10 Sep, 2010 [facility] [place] [facility] [address] [id number] [place] [address] 25[address] 10 Sep, 2010 [facility] [place] [facility] [address] [id number] [place] [address]46 29 Aug, 2010 [facility] [place] [facility] [address] [id number] [place] [address] 23 Aug, 2010 [facility] [place] [facility] [address] [id number] [place] [address] 18 Aug, 2010 [facility] [place] [facility] [address] [id number] [place] [address] 17 Aug, 2010 [facility] [place] [facility] [address] [id number] [place] [address] 16 Aug, 2010 [facility] [place] [facility] [address] [id number] [place] [address] 25 Jul, 2010 [facility] [place] [facility] [address] [id number] [address] 16 Jun, 2010 [facility] [place] [facility] [address] [id number] [place] [address] 15 Feb, 2010 [facility] [place] [facility] [address] [id number] [place] [address] Oct, [facility] [place] [facility] [address] [id number] [place] [address] Sep, [facility] [place] [facility] [address] [id number], [place] [address] 24 Aug, 2009 [facility] [place] [facility] [address] [id number], [place] [address] 03 Aug, 2009 [facility] [place] [facility] [address] [id number], [place] [address] 02 Aug, 2009 [facility] [place] [facility] [address] [id number], [place] [address] 20 Jul, 2009 [facility] [place] [facility] [address] [id number], [place] [address] 15 Jul, 2009 [facility] [place] [facility] [address] [id number][place] [address] 15 Jul, 2009 [facility] [place] [facility] [address] [id number], [place] [address] 14 Jun, 2009 [facility] [place] [facility] [address] [id number], [place] [address] 10 Jun, 2009 [facility] [place] [facility] [address] [facility] [id number] [place] [address] 16 Mar, 2009 [facility] [address] [facility] [id number] [place] [address] Jan, [facility] [address] [facility] [id number] [place] [address] Aug, IMMUNIZATIONS No Known Immunizations SOCIAL HISTORY Never Assessed REASON FOR VISIT TARUN Ball PLAN OF CARE VITAL SIGNS MEDICATIONS Unknown [...]
--- OUTSIDE RECORDS SUMMARY | 2018-11-13 11:40 | XMS REPORT ---
Author Author MARIMAR JONES [facility] Address [address] [place] [address] Care Team Providers Care Bread Distributor Name Role Phone MARIMAR JONES Unavailable PROBLEMS Type Condition ICD9-CM Code MES59-UK Code Onset Dates Condition Status SNOMED Code Problem Borderline personality disorder F60.3 Active 45090086 Problem Post-traumatic stress disorder, chronic F43.12 Active 98112074 Problem Carpal tunnel syndrome of right wrist G56.01 Active [id number] Problem PAD (peripheral artery disease) I73.9 Active 415593228 Problem Anxiety F41.9 Active 73140497 Problem Cannabis use disorder, mild, abuse F12.10 Active 80033488 Problem Bipolar affective, depress, mod F31.32 Active 526155578 Problem Fibromyalgia M79.7 Active 144774235 Problem Cervical radiculopathy M54.12 Active 64018579 Problem CAD (coronary artery disease) I25.10 Active 75556504 Problem Depression F32.9 Active 67268845 Problem Back pain M54.9 Active 774492697 Problem Tobacco abuse Z72.0 Active 15218709 Problem Hyperlipidemia E78.5 Active 65952890 ALLERGIES No Information ENCOUNTERS Encounter Location Date Diagnosis [facility] [address] [id number], [place] [address] Oct, [facility] [address], [place] [address] Aug, Cervical radiculopathy M54.12 [facility] [address], [place] [address] Aug, Cervical radiculopathy M54.12 [facility] [address] [id number] [address] Aug, [facility] [id number] [place] [address] 26026- 6241 Aug, Post-traumatic stress disorder, chronic F43.12 ; Bipolar affective, depress, mod F31.32 ; Borderline personality disorder F60.3 ; Cannabis use disorder, mild, abuse F12.10 and 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 [place] [address] [address]- 4827 Jul, Cervical radiculopathy M54.12 [place] [address] 31313- 3646 Jul, Hoarseness, persistent R49.0 [place] [address] 56374- 8256 Jul, [place] [address] 35763- 6335 Jul, Dental abscess K04.7 ; Cervical radiculopathy M54.12 and Allergic state, initial encounter T78.40XA [place] [address] 28723- 6040 Jul, [place] [address] 03081- 7487 May, [place] [address] 48181- 1363 May, [place] [address] 96087- 5675 Apr, Post-traumatic stress disorder, chronic F43.12 ; Bipolar affective, depress, mod F31.32 ; Borderline personality disorder F60.3 and Cannabis use disorder, mild, abuse F12.10 [place] [address] 61594- 7905 Apr, Cervical radiculopathy M54.12 ; Back pain M54.9 ; Fibromyalgia M79.7 and High risk heterosexual behavior Z72.51 [place] [address] [place] [address]- 5[address] Apr, [place] [id number] [place] [address] 28092- 5210 Mar, Bipolar affective, depress, mod F31.32 ; Post-traumatic stress disorder, chronic F43.12 ; Borderline personality disorder F60.3 and Cannabis use disorder, mild, abuse F12.10 [place] [id number] [place] [address] 25179- 2893 Mar, Tobacco abuse Z72.0 [place] [address] 45558- 9293 Mar, [place] [address] 73065- 4054 February, Fibromyalgia M79.7 [place] [id number] [place] [address] 54538- 7865 Jan, Post-traumatic stress disorder, chronic F43.12 ; Bipolar affective, depress, mod F31.32 ; Borderline personality disorder F60.3 and Cannabis use disorder, mild, abuse F12.10 [place] [id number] [place] [address] 56830- 3319 Jan, [place] [id number] [place] [address] 90139- 2299 Dec, Bipolar affective, depress, mod F31.32 ; Post-traumatic stress disorder, chronic F43.12 ; Borderline personality disorder F60.3 and Cannabis use disorder, mild, abuse F12.10 [place] [address] [place] [address] 28038- 9681 Dec, Hoarseness R49.0 ; Bronchitis J40 ; PAD (peripheral artery disease) I73.9 and Tobacco abuse Z72.0 [place] [address] [place] [address] 47050- 9887 Nov, Bipolar affective, depress, mod F31.32 ; Post-traumatic stress disorder, chronic F43.12 ; Borderline personality disorder F60.3 and Cannabis use disorder, mild, abuse F12.10 [place] [id number] [place] [address] 89406- 973 Oct, Post-traumatic stress disorder, chronic F43.12 ; Bipolar affective, depress, mod F31.32 ; Borderline personality disorder F60.3 and Cannabis use disorder, mild, abuse F12.10 [place] [id number] [place] [address] 790187- 962 Oct, Bipolar affective, depress, mod F31.32 ; Post-traumatic stress disorder, chronic F43.12 and Borderline personality disorder F60.3 [place] [id number] [place] [address] Sep, Anxiety F41.9 [place] [address] 845704- 029 Aug, Bipolar affective, depress, mod F31.32 ; Post-traumatic stress disorder, chronic F43.12 and Borderline personality disorder F60.3 [place] [id number] [place] [address] 84122- 0791 Aug, Bipolar affective, depress, mod F31.32 ; Post-traumatic stress disorder, chronic F43.12 and Borderline personality disorder F60.3 [place] [id number] [place] [address] 79174- 2185 Aug, Fibromyalgia M79.7 ; Back pain M54.9 and Cervical radiculopathy M54.12 [place] [id number] [place] [address] [address] Aug, Bipolar affective, depress, mod F31.32 and Post-traumatic stress disorder, chronic F43.[address] [address]51- 4975 Jul, Depression F32.9 ; Borderline personality disorder F60.3 and Bipolar affective, depress, mod F31.32 [place] [id number] [place] [address] 85547- 5428 Jul, Post-traumatic stress disorder, chronic F43.12 ; Bipolar affective, depress, mod F31.32 ; Borderline personality disorder F60.3 and Cannabis use disorder, mild, abuse F12.10 [facility] [address], [place] [address] 8[address] Jul, Other chcf (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.899 [facility] [id number] [place] [address] 437953- 4138 Jun, [place] [id number] [place] [address] 77888- 8838 Jun, Depression F32.9 ; Borderline personality disorder F60.3 and Bipolar affective, depress, mod F31.32 [place] [id number] [place] [address] 78122- 3789 Jun, Depression F32.9 and Borderline personality disorder F60.3 [place] [id number] [place] [address] 57648- 7118 May, Post-traumatic stress disorder, chronic F43.12 [facility] [id number] [place] [address] 46829- 6728 May, Depression F32.9 and Borderline personality disorder F60.3 [place] [address] [place] [address] 06477- 1564 Apr, Post-traumatic stress disorder, chronic F43.12 ; Bipolar affective, depress, mod F31.32 ; Borderline personality disorder F60.3 ; 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 and Cannabis use disorder, mild, abuse F12.10 [place] [address] [place] [address] 57583- 1751 Apr, Depression F32.9 and Borderline personality disorder F60.3 [facility] [address] [place] [address] 62242- 4833 Apr, Depression F32.9 and Borderline personality disorder F60.3 [place] [id number] [place] [address] 13943- 8910 Mar, Depression F32.9 and Borderline personality disorder F60.3 [facility] [id number] [place] [address] 68080- 4565 February, Depression F32.9 and Borderline personality disorder F60.3 [facility] [id number] [place] [address] 80530- 0676 February, Back pain M54.9 [facility] [id number] [place] [address] 42665- 3791 February, Depression F32.9 and Borderline personality disorder F60.3 [place] [id number] [place] [address] 31385- 6089 February, Post-traumatic stress disorder, chronic F43.12 ; Borderline personality disorder F60.3 and Bipolar affective disorder, depressed, mild F31.31 [place] [id number] [place] [address] 04607- 7340 February, [place] [id number] [place] [address] 10147- 0072 February, Depression F32.9 and Borderline personality disorder F60.3 [place] [id number] [place] [address] 93609- 0072 Jan, [place] [id number] [place] [address] 41189- 2000 Jan, Depression F32.9 and Borderline personality disorder F60.3 [place] [id number] [place] [address] 63715- 4442 Jan, Acute lateral meniscus tear of right knee, initial encounter S83.281A [place] [id number] [place] [address] 23088- 2666 Jan, Depression F32.9 and Borderline personality disorder F60.3 [place] [id number] [place] [address] 54693- 0321 Dec, Depression F32.9 and Borderline personality disorder F60.3 [place] [id number] [place] [address] 87449- 5944 Dec, Depression F32.9 and Borderline personality disorder F60.3 [place] [id number] [place] [address] 05321- 6417 Nov, Hyperlipidemia E78.5 ; Knee locking, right M23.91 and Carpal tunnel syndrome of right wrist G56.01 [place] [id number] [place] [address] 68945- 3016 23 Nov, 2016 Bipolar affective, depress, mod F31.32 ; Post-traumatic stress disorder, chronic F43.12 and Borderline personality disorder F60.3 [place] [id number] [place] [address] 30518- 1144 16 Nov, 2016 Depression F32.9 and Borderline personality disorder F60.3 [place] [address] 47665- 7606 Oct, Post-traumatic stress disorder, chronic F43.12 and 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 [place] [id number] [place] [address] 94722- 5849 Oct, Nondisplaced fracture of distal end of right radius with routine healing, subsequent encounter S52.501D [place] [id number] [place] [address] 91574- 4906 Sep, [place] [id number] [place] [address] 23820- 3954 Aug, Right wrist fracture, closed, initial encounter S62.101A [place] [address] 26612- 4238 Aug, [place] [id number] [place] [address] 62076- 8671 24 Jul, 2016 Back pain M54.9 and Hyperlipidemia E78.5 [place] [id number] [place] [address] 51398- 3804 Jul, Post-traumatic stress disorder, chronic F43.12 and 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 [place] [address] 36247- 2666 Apr, Bipolar affective, depress, mod F31.32 ; Post-traumatic stress disorder, chronic F43.12 and 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 [place] [address] 42305- 1304 Mar, [place] [address] 88751- 5288 Jan, Post-traumatic stress disorder, chronic F43.12 and Depression F32.9 [place] [address] 00279- 3493 Dec, [place] [address] 74028- 8097 Nov, Shoulder pain, left M25.512 and Bronchitis J40 [address] 98401- 9133 Sep, Hyperlipidemia E78.5 [place] [address] 20891- 8634 Sep, Hyperlipidemia E78.5 [place] [address] 62190- 3801 Sep, [place] [address] 82559- 7755 Sep, Back pain M54.9 ; CAD (coronary artery disease) I25.10 and Depression F32.9 [place] [id number] [place] [address] 87779- 5772 Sep, URI (upper respiratory infection) J06.9 ; Nausea & vomiting R11.2 and Tobacco abuse Z72.0 [id number] [address]- 8250 Mar, Posttraumatic stress disorder 309.81 ; Major depressive disorder, recurrent episode, in partial remission 296.35 ; Nightmares associated with chronic post-traumatic stress disorder 307.47 ; Thoracic or lumbosacral neuritis or radiculitis, unspecified 724.4 ; Borderline personality disorder 301.83 and High risk medication use V58.69 [facility] [id number] [place] [address] 03073- 9440 Jan, [facility] [id number] [place] [address] 13868- 0905 Jan, [facility] [id number] [place] [address] 79004- 4395 Dec, [facility] [id number] [place] [address] 19841- 1241 Dec, [facility] [id number] [place] [address] 05383- 9046 Sep, [facility] [id number] [place] [address] 716939- 1456 Sep, [facility] [id number] [place] [address] 99127- 8755 Sep, [facility] [address] [place] 1283 Sep, [facility] [id number] [place] [address] 48634- 5801 Sep, [facility] [address] 4130 Jul, [facility] [id number] [place] [address] 88643- 4776 Jul, [facility] [address], [place] [address]- 3478 Jul, [facility] [id number] [place] [address] 88994- 6150 Jul, [facility] [place] [facility] [address] [id number] [place] [address]- 9080 Jul, [facility] [place] [facility] [address] [id number] [place] [address]- 3696 Jul, [facility] [place] [facility] [address] [id number] [place] [address]- 9097 Jul, [facility] [place] [facility] [address] [id number] [place] [address]- 4197 Jul, [facility] [place] [facility] [address] [id number] [place] [address]- 6020 May, [facility] [place] [facility] [address] [id number] [place] [address]- 3916 May, [facility] [place] [facility] [address] [id number] [place] [address]- 6510 May, [facility] [place] [facility] [address] [id number] [place] [address]- 1620 May, [facility] [place] [facility] [address] [id number] [place] [address]- 9461 May, [facility] [place] [facility] [address] [id number] [place] [address]- 6999 May, [facility] [place] [facility] [address] [id number] [place] [address]- 4405 Mar, [facility] [place] [facility] [address] [id number] [place] [address]- 3652 Mar, [facility] [place] [facility] [address] [id number] [place] [address]- 7812 February, [facility] [place] [facility] [address] [id number] [place] [address]- 7106 February, [facility] [place] [facility] [address] [id number] [place] [address]- 8577 February, [facility] [place] [facility] [address] [id number] [place] [address]- 8878 February, [facility] [address] [id number] [place] [address]- 6669 February, [facility] [place] [facility] [address] [id number] [place] [address]- 1551 February, [facility] [place] [facility] [address] [id number] [place] [address]- 6689 February, [facility] [place] [facility] [address] [id number] [place] [address]- 9140 Jan, [facility] [place] [facility] [address] [id number] [place] [address]- 4846 Jan, [facility] [place] [facility] [address] [id number] [place] [address]- 4356 Jan, [facility] [place] [facility] [address] [id number] [place] [address]- 3974 Jan, [facility] [address] [id number] [place] [address]- 4556 Dec, [facility] [place] [facility] [address] [id number] [place] [address]- 6228 Dec, [facility] [place] [facility] [address] [id number] [place] [address]- 5248 Dec, [facility] [place] [facility] [address] [id number] [place] [address]- 1719 Dec, [facility] [place] [facility] [address] [id number] [place] [address]- 6392 Nov, [facility] [place] [facility] [address] [id number] [place] [address]- 1738 Nov, [facility] [place] [facility] [address] [id number] [place] [address]- 9790 Nov, [facility] [place] [facility] [address] [id number] [place] [address]- 2312 Nov, [facility] [place] [facility] [address] [id number] [place] [address]- 9244 Nov, [facility] [place] [facility] [address] [id number] [place] [address]- 3799 Nov, [facility] [place] [facility] [address] [id number] [place] [address]- 0558 Nov, [facility] [place] [facility] [address] [id number] [place] [address]- 5680 Nov, [facility] [place] [facility] [address] [id number] [place] [address]- 7369 Oct, [facility] [place] [facility] [address] [id number] [place] [address]- 8674 Oct, [facility] [place] [facility] [address] [id number] [place] [address]- 6456 Oct, [facility] [place] [facility] [address] [id number] [place] [address]- 2224 Oct, [facility] [place] [facility] [address] [id number] [place] [address]- 9182 Oct, [facility] [place] [facility] [address] [id number] [place] [address]- 6772 Oct, [facility] [place] [facility] [address] [id number] [address]- 4927 Oct, [facility] [place] [facility] [address] [id number] [place] [address]- 7007 Oct, [facility] [place] [facility] [address] [id number] [place] [address]- 9934 Oct, [facility] [place] [facility] [address] [id number] [place] [address]- 3766 Oct, [facility] [place] [facility] [address] [id number] [place] [address]- 7735 Oct, [facility] [place] [facility] [address] [id number] [place] [address]- 3137 05 Aug, 2013 [facility] [address] [id number] [place] [address]- 8705 Aug, [facility] [address] [id number] [place] [address]- 2315 Jul, [facility] [address] [id number] [place] [address]- 1256 Jul, [facility] [address] [id number] [place] [address]- 5643 Jul, [facility] [address] [id number] [place] [address]- 6495 Jul, [facility] [address] [id number] [place] [address]- 0310 Jun, [facility] [address] [id number] [place] [address]- 6428 Jun, [facility] [address] [id number] [place] [address]- 6237 Jan, [facility] [address] [id number] [place] [address]- 9049 Oct, [facility] [address] [facility] [id number] [place] [address]- 5498 Sep, [facility] [address] [id number] [place] [address]- 8744 Sep, [facility] [address] [id number] [place] [address]- 4351 Sep, [facility] [place] [facility] [address] [id number] [place] [address]- 7080 Sep, [facility] [address] [id number] [place] [address]- 5397 Aug, [facility] [address] [id number] [place] [address]- 6381 Aug, [facility] [place] [facility] [address] [id number] [place] [address]- 6952 Aug, [facility] [place] [facility] [address] [id number] [place] [address]- 2076 Aug, [facility] [place] [facility] [address] [id number] [place] [address]- 6590 Jul, [facility] [place] [facility] [address] [id number] [place] [address]- 0102 Jul, [facility] [place] [facility] [address] [id number] [place] [address]- 6251 Jul, [facility] [place] [facility] [address] [id number] [place] [address]- 8486 Jul, [facility] [place] [facility] [address] [id number] [place] [address]- 2746 Jul, [facility] [place] [facility] [address] [id number] [place] [address]- 3597 Jun, [facility] [place] [facility] [address] [id number] [place] [address]- 7374 Jun, [facility] [place] [facility] [address] [id number] [place] [address]- 7972 Jun, [facility] [place] [facility] [address] [id number] [place] [address]- 4340 May, [facility] [place] [facility] [address] [id number] [place] [address]- 7650 May, [facility] [place] [facility] [address] [id number] [place] [address]- 5087 Apr, [facility] [place] [facility] [address] [id number] [place] [address]- 7776 Apr, [facility] [place] [facility] [address] [id number] [place] [address]- 0335 Apr, [facility] [place] [facility] [address] [id number] [place] [address]- 7226 Apr, [facility] [address] [id number] [place] [address] Mar, [facility] [place] [facility] [address] [id number] [place] [address] Mar, [facility] [place] [facility] [address] [id number] [place] [address] Mar, [facility] [place] [facility] [address] [id number] [place] [address] February, [facility] [address] [id number] [place] [address] February, [facility] [place] [facility] [address] [id number] [place] [address] February, [facility] [address] [id number] [place] [address] February, [facility] [place] [facility] [address] [id number] [place] [address] February, [facility] [place] [facility] [address] [id number] [place] [address] Jan, [facility] [place] [facility] [address] [id number] [place] [address] Jan, [facility] [place] [facility] [address] [id number] [place] [address] Jan, [facility] [place] [facility] [address] [id number] [place] [address] Dec, [facility] [place] [facility] [address] [id number] [place] [address] Dec, [facility] [place] [facility] [address] [id number] [place] [address] Dec, [facility] [place] [facility] [address] [id number] [place] [address] Nov, [facility] [place] [facility] [address] [id number] [place] [address] 16 Nov, 2011 [facility] [place] [facility] [address] [id number] [place] [address] Nov, [facility] [place] [facility] [address] [id number] [place] [address] Nov, [facility] [place] [facility] [address] [id number] [place] [address] Oct, [facility] [place] [facility] [address] [id number] [place] [address] Oct, [facility] [place] [facility] [address] [id number] [place] [address] 2009 Sep, [facility] [place] [facility] [address] [id number] [place] [address] Sep, [facility] [place] [facility] [address] [id number] [place] [address] 14 Sep, 2011 [facility] [place] [facility] [address] [id number] [place] [address] Sep, [facility] [place] [facility] [address] [id number] [place] [address] Aug, [facility] [place] [facility] [address] [id number] [place] [address] Aug, [facility] [place] [facility] [address] [id number] [place] [address] Aug, [facility] [place] [facility] [address] [id number] [place] [address] Jul, [facility] [place] [facility] [address] [id number] [place] [address] Jul, [facility] [place] [facility] [address] [id number] [place] [address] Jul, [facility] [place] [facility] [address] [id number], [place] [address] May, [facility] [address] [id number] [place] [id number] February, [facility] [place] [facility] [address] [id number] [place] [address] 17 Nov, 2010 [facility] [address] [id number] [place] [address] 14 Oct, 2010 [facility] [place] [facility] [address] [id number] [place] [address] 10 Oct, 2010 [facility] [address] [id number] [place] [address] 22 Sep, 2010 [facility] [place] [facility] [address] [id number] [place] [address] 17 Sep, 2010 [facility] [address] [id number] [place] [address] 17 Sep, 2010 [facility] [place] [facility] [address] [id number] [place] [address] 16 Sep, 2010 [facility] [address] [id number] [place] [address] 10 Sep, 2010 [facility] [place] [facility] [address] [id number] [place] [address] 10 Sep, 2010 [facility] [address] [id number] [place] [address] 29 Aug, 2010 [facility] [place] [facility] [address] [id number] [place] [address] 23 Aug, 2010 [facility] [place] [facility] [address] [id number] [place] [address] 18 Aug, 2010 [facility] [place] [facility] [address] [id number] [place] [address] 17 Aug, 2010 [facility] [place] [facility] [address] [id number] [place] [address] 16 Aug, 2010 [facility] [place] [facility] [address] [id number] [place] [address] 25 Jul, 2010 [facility] [address] [id number] [place] [address] 16 Jun, 2010 [facility] [place] [facility] [address] [id number] [place] [address] February, [facility] [address] [id number] [place] [address] Oct, [facility] [address] [id number] [place] [address] Sep, [facility] [address] [id number] [place] [address] 24 Aug, 2009 [facility] [address] [facility] [id number] [place] [address] Aug, [facility] [address] [id number] [place] [address] Aug, [facility] [address] [id number] [place] [address] 20 Jul, 2009 [facility] [address] [id number] [place] [address] 15 Jul, 2009 [facility] [address] [facility] [id number] [place] [address] 15 Jul, 2009 [facility] [place] [facility] [address] [id number] [place] [address] 14 Jun, 2009 [facility] [address] [id number] [address] 10 Jun, 2009 [facility] [place] [facility] [address] [id number] [place] [address] 16 Mar, 2009 [facility] [place] [facility] [address] [id number] [place] [address] 13 Jan, 2009 [facility] [place] [facility] [address] [id number], [place] [address] Aug, IMMUNIZATIONS No Known Immunizations SOCIAL HISTORY Never Assessed REASON FOR VISIT Medication question PLAN OF CARE VITAL SIGNS MEDICATIONS Unknown [...]
--- OUTSIDE RECORDS SUMMARY | 2018-11-13 11:41 | XMS REPORT ---
Author Author MARIMAR JONES [facility] Address [address] [place] [address] Care Team Providers Care Chief Nurse Anesthetist Name Role Phone MARIMAR JONES Unavailable PROBLEMS Type Condition ICD9-CM Code [id number] Code Onset Dates Condition Status SNOMED Code Problem Borderline personality disorder F60.3 Active 65824840 Problem Post-traumatic stress disorder, chronic F43.12 Active 03850493 Problem Carpal tunnel syndrome of right wrist G56.01 Active [id number] Problem PAD (peripheral artery disease) I73.9 Active 254480766 Problem Anxiety F41.9 Active 24186168 Problem Cannabis use disorder, mild, abuse F12.10 Active 94182089 Problem Bipolar affective, depress, mod F31.32 Active 477180665 Problem Fibromyalgia M79.7 Active 325757899 Problem Cervical radiculopathy M54.12 Active 17228419 Problem CAD (coronary artery disease) I25.10 Active 26928679 Problem Depression F32.9 Active 81237026 Problem Back pain M54.9 Active 702177677 Problem Tobacco abuse Z72.0 Active 43986936 Problem Hyperlipidemia E78.5 Active 72103330 ALLERGIES No Information ENCOUNTERS Encounter Location Date Diagnosis [facility] [address], [place] [address] Jul, Cervical radiculopathy M54.12 [facility] [address], [place] [address] Jul, Hoarseness, persistent R49.0 [facility] [id number] [place] [address] 39641- 1410 Jul, [facility] [id number], [place] [address] 3572 Jul, Dental abscess K04.7 ; Cervical radiculopathy M54.12 and Allergic state, initial encounter T78.40XA [facility] [id number] [place] [address] 63575- 6049 Jul, [place] [address] 07083- 4498 May, [facility] [id number] [place] [address] 15099- 7440 May, [place] [facility] [address] 63903- 8614 Apr, Post-traumatic stress disorder, chronic F43.12 ; Bipolar affective, depress, mod F31.32 ; Borderline personality disorder F60.3 and Cannabis use disorder, mild, abuse F12.10 [facility] [id number] [place] [address] 57588- 4962 Apr, Cervical radiculopathy M54.12 ; Back pain M54.9 ; Fibromyalgia M79.7 and High risk heterosexual behavior Z72.51 [facility] [id number] [place] [address] 74534- 8950 Apr, [facility] [id number] [place] [address] 36251- 4325 Mar, Bipolar affective, depress, mod F31.32 ; Post-traumatic stress disorder, chronic F43.12 ; Borderline personality disorder F60.3 and Cannabis use disorder, mild, abuse F12.10 [facility] [id number] [place] [address] 67502- 0079 Mar, Tobacco abuse Z72.0 [facility] [id number] [place] [address] 30645- 8750 Mar, [facility] [address] 23388- 3084 February, Fibromyalgia M79.7 [facility] [id number] [place] [address] 55551- 1545 Jan, Post-traumatic stress disorder, chronic F43.12 ; Bipolar affective, depress, mod F31.32 ; Borderline personality disorder F60.3 and Cannabis use disorder, mild, abuse F12.10 [facility] [id number] [place] [address] [address] Jan, [facility] [id number] [place] [address] 85266- 1817 Dec, Bipolar affective, depress, mod F31.32 ; Post-traumatic stress disorder, chronic F43.12 ; Borderline personality disorder F60.3 and Cannabis use disorder, mild, abuse F12.10 [facility] [id number] [place] [address] 05390- 1460 Dec, Hoarseness R49.0 ; Bronchitis J40 ; PAD (peripheral artery disease) I73.9 and Tobacco abuse Z72.0 [id number] [place] [address] 42883- 8419 Nov, Bipolar affective, depress, mod F31.32 ; Post-traumatic stress disorder, chronic F43.12 ; Borderline personality disorder F60.3 and Cannabis use disorder, mild, abuse F12.10 [facility] [id number] [place] [address] 50259- 9566 Oct, Post-traumatic stress disorder, chronic F43.12 ; Bipolar affective, depress, mod F31.32 ; Borderline personality disorder F60.3 and Cannabis use disorder, mild, abuse F12.10 [facility] [id number] [place] [address] 45972- 6942 Oct, Bipolar affective, depress, mod F31.32 ; Post-traumatic stress disorder, chronic F43.12 and Borderline personality disorder F60.3 [facility] [id number] [place] [address] 921090- 3884 Sep, Anxiety F41.9 [address] [address] [id number] [place] [address] 90112- 2034 Aug, Bipolar affective, depress, mod F31.32 ; Post-traumatic stress disorder, chronic F43.12 and Borderline personality disorder F60.3 [facility] [address] [place] [address] 29023- 0392 Aug, Bipolar affective, depress, mod F31.32 ; Post-traumatic stress disorder, chronic F43.12 and Borderline personality disorder F60.3 [place] [address] [place] [address] 45284- 7607 Aug, Fibromyalgia M79.7 ; Back pain M54.9 and Cervical radiculopathy M54.12 [facility] [id number] [place] [address] 13892- 1934 Aug, Bipolar affective, depress, mod F31.32 and Post-traumatic stress disorder, chronic F43.12 [facility] [id number] [place] [address] 55865- 5616 Jul, Depression F32.9 ; Borderline personality disorder F60.3 and Bipolar affective, depress, mod F31.32 [facility] [id number] [place] [address] 40542- 5930 Jul, Post-traumatic stress disorder, chronic F43.12 ; Bipolar affective, depress, mod F31.32 ; Borderline personality disorder F60.3 and Cannabis use disorder, mild, abuse F12.10 [facility] [id number] [place] [address] 65771- 9042 Jul, 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 [place] [facility] [id number] [place] [address] 28136- 9845 Jun, [facility] [id number] [place] [address] 20698- 9276 Jun, Depression F32.9 ; Borderline personality disorder F60.3 and Bipolar affective, depress, mod F31.32 [facility] [address] [place] [address] 58515- 8039 13 Jun, 2017 Depression F32.9 and Borderline personality disorder F60.3 [place] [address] [place] [address]- 1371 May, Post-traumatic stress disorder, chronic F43.12 [facility] [id number] [place] [address] 6688 May, Depression F32.9 and Borderline personality disorder F60.3 [facility] [id number] [place] [address] 20511- 5500 Apr, Post-traumatic stress disorder, chronic F43.12 ; Bipolar affective, depress, mod F31.32 ; Borderline personality disorder F60.3 ; Other longterm (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.899 and Cannabis use disorder, mild, abuse F12.10 [place] [facility] [id number] [place] [address] 10374- 2596 Apr, Depression F32.9 and Borderline personality disorder F60.3 [place] [facility] [id number] [place] [address] 01821- 6849 Apr, Depression F32.9 and Borderline personality disorder F60.3 [facility] [facility] [id number] [place] [address] 42370- 3994 Mar, Depression F32.9 and Borderline personality disorder F60.3 [place] [id number] [place] [address] 09723- 0595 February, Depression F32.9 and Borderline personality disorder F60.3 [place] [id number] [place] [address] 89411- 8093 February, Back pain M54.9 [place] [id number] [place] [address] 66646- 5659 February, Depression F32.9 and Borderline personality disorder F60.3 [place] [id number] [place] [address] 47778- 5875 February, Post-traumatic stress disorder, chronic F43.12 ; Borderline personality disorder F60.3 and Bipolar affective disorder, depressed, mild F31.31 [place] [address] [place] [address]- 3665 February, [facility] [id number] [place] [address] 25576- 0615 February, Depression F32.9 and Borderline personality disorder F60.3 [facility] [id number] [place] [address] 70859- 3751 Jan, [facility] [address] 94069- 3392 Jan, Depression F32.9 and Borderline personality disorder F60.3 [place] [id number] [place] [address] 84326- 0283 Jan, Acute lateral meniscus tear of right knee, initial encounter S83.281A [place] [facility] [id number] [place] [address] 67088- 1354 Jan, Depression F32.9 and Borderline personality disorder F60.3 [place] [id number] [place] [address] 68128- 1842 Dec, Depression F32.9 and Borderline personality disorder F60.3 [place] [facility] [id number] [place] [address] 58488- 8582 Dec, Depression F32.9 and Borderline personality disorder F60.3 [place] [address] [place] [address] 30708- 5127 Nov, Hyperlipidemia E78.5 ; Knee locking, right M23.91 and Carpal tunnel syndrome of right wrist G56.01 [facility] [address] [place] [address] 37114- 4237 23 Nov, 2016 Bipolar affective, depress, mod F31.32 ; Post-traumatic stress disorder, chronic F43.12 and Borderline personality disorder F60.3 [facility] [address] [place] [address] 20553- 0423 16 Nov, 2016 Depression F32.9 and Borderline personality disorder F60.3 [place] [id number] [place] [address] 34011- 6494 Oct, Post-traumatic stress disorder, chronic F43.12 and 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 [facility] [id number] [place] [address] 58415- 3531 Oct, Nondisplaced fracture of distal end of right radius with routine healing, subsequent encounter S52.501D [facility] [address] 15892- 5467 Sep, [facility] [address] 72857- 5469 Aug, Right wrist fracture, closed, initial encounter S62.101A [facility] [id number] [place] [address] 90275- 9253 Aug, [place] [address] 05099- 2552 Jul, Back pain M54.9 and Hyperlipidemia E78.5 [place] [id number] [place] [address] 70191- 0793 Jul, Post-traumatic stress disorder, chronic F43.12 and Other longterm (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.899 [place] [address] [place] [address] 07138- 1373 Apr, Bipolar affective, depress, mod F31.32 ; Post-traumatic stress disorder, chronic F43.12 and 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 [facility] [address] [place] [address] 86628- 1670 Mar, [facility] [id number] [place] [address] 82892- 6589 Jan, Post-traumatic stress disorder, chronic F43.12 and Depression F32.9 [facility] [id number] [place] [address] 31922- 1685 Dec, [facility] [id number] [place] [address] 56224- 8831 15 Nov, 2015 Shoulder pain, left M25.512 and Bronchitis J40 [place] [id number] [place] [address] 58046- 8039 Sep, Hyperlipidemia E78.5 [place] [id number] [place] [address] 20529- 7998 Sep, Hyperlipidemia E78.5 [place] [address] 10222- 5055 Sep, [place] [address] 17832- 5090 Sep, Back pain M54.9 ; CAD (coronary artery disease) I25.10 and Depression F32.9 [place] [id number] [place] [address] 43609- 6478 Sep, URI (upper respiratory infection) J06.9 ; Nausea & vomiting R11.2 and Tobacco abuse Z72.0 [place] [id number] [place] [address] 11341- 6985 Mar, Posttraumatic stress disorder 309.81 ; Major depressive disorder, recurrent episode, in partial remission 296.35 ; Nightmares associated with chronic post-traumatic stress disorder 307.47 ; Thoracic or lumbosacral neuritis or radiculitis, unspecified 724.4 ; Borderline personality disorder 301.83 and High risk medication use V58.69 [place] [facility] [id number] [place] [address] 37403- 0097 Jan, [place] [id number] [place] [address] 66877- 2967 Jan, [place] [id number] [place] [address] 26622- 4883 Dec, [facility] [id number] [place] [address] 83913- 6472 Dec, [place] [id number] [place] [address]- 0764 Sep, [facility] [place] [facility] [address] [id number] [place] [address]- 6096 Sep, [facility] [place] [facility] [address] [id number] [place] 0121 Sep, [facility] [place] [facility] [address] [id number] [place] [address]- 7690 Sep, [facility] [place] [facility] [address] [id number] [place] 5120 Sep, [facility] [place] [facility] [address] [id number] [place] [address]- 3676 Jul, [facility] [place] [facility] [address] [id number] [place] [address]- 4994 Jul, [facility] [place] [facility] [address] [id number] [place] [address]- 7276 Jul, [facility] [place] [facility] [address] [id number] [place] [address]- 4708 Jul, [facility] [place] [facility] [address] [id number] [place] [address]- 4919 Jul, [facility] [place] [facility] [address] [id number] [place] [address]- 4085 Jul, [facility] [place] [facility] [address] [id number] [place] [address]- 4918 Jul, [facility] [place] [facility] [address] [id number] [place] [address]- 0549 Jul, [facility] [place] [facility] [address] [id number] [place] 8653 May, [facility] [place] [facility] [address] [id number] [place] [address]- 1656 May, [facility] [place] [facility] [address] [id number] [place] [address]- 3536 May, [facility] [place] [facility] [address] [id number] [place] [address]- 4330 May, [facility] [place] [facility] [address] [id number] [place] [address]- 5760 May, [facility] [place] [facility] [address] [id number] [place] [address]- 3533 May, [facility] [place] [facility] [address] [id number] [place] [address]- 6019 Mar, [facility] [place] [facility] [address] [id number] [place] [address]- 5629 Mar, [facility] [place] [facility] [address] [id number] [place] [address]- 0891 February, [facility] [place] [facility] [address] [id number] [place] [address]- 0440 February, [facility] [place] [facility] [address] [id number] [place] [address]- 8906 February, [facility] [place] [facility] [address] [id number] [place] [address]- 6137 February, [facility] [place] [facility] [address] [id number] [place] [address]- 1828 February, [facility] [place] [facility] [address] [id number] [place] [address]- 9652 February, [facility] [place] [facility] [address] [id number] [place] [address]- 5810 February, [facility] [place] [facility] [address] [id number] [place] [address]- 0826 Jan, [facility] [place] [facility] [address] [id number] [place] [address]- 9130 Jan, [facility] [place] [facility] [address] [id number] [place] 6598 Jan, [facility] [place] [facility] [address] [id number] [place] [address]- 8813 Jan, [facility] [place] [facility] [address] [id number] [place] [address]- 3955 Dec, [facility] [place] [facility] [address] [id number] [place] [address]- 5321 Dec, [facility] [place] [facility] [address] [facility] [id number] [place] [address]- 3736 Dec, [facility] [place] [facility] [address] [id number] [place] [address]- 5147 Dec, [facility] [place] [facility] [address] [id number] [place] [address]- 8520 Nov, [facility] [place] [facility] [address] [id number] [place] [address]- 6963 Nov, [facility] [place] [facility] [address] [facility] [id number] [place] [address]- 3193 Nov, [facility] [place] [facility] [address] [facility] [id number] [place] [address]- 3327 Nov, [facility] [place] [facility] [address] [id number] [place] [address]- 0002 Nov, [facility] [place] [facility] [address] [facility] [id number] [place] [address]- 6768 Nov, [facility] [place] [facility] [address] [facility] [id number] [place] [address]- 8666 Nov, [facility] [place] [facility] [address] [facility] [id number] [place] [address]- 9834 Nov, [facility] [place] [facility] [address] [id number] [place] [address]- 2758 Oct, [facility] [place] [facility] [address] [facility] [id number] [place] [address]- 3190 Oct, [facility] [place] [facility] [address] [facility] [id number] [place] [address]- 5032 Oct, [facility] [place] [facility] [address] [id number] [place] [address]- 4473 Oct, [facility] [place] [facility] [address] [id number] [place] [address]- 6952 Oct, [facility] [place] [facility] [address] [id number] [place] [address]- 8050 Oct, [facility] [place] [facility] [address] [id number] [place] [address]- 2399 Oct, [facility] [place] [facility] [address] [id number] [place] [address]- 6700 Oct, [facility] [place] [facility] [address] [id number] [place] [address]- 3263 Oct, [facility] [place] [facility] [address] [id number] [place] [address]- 6132 Oct, [facility] [place] [facility] [address] [id number] [place] [address]- 3668 Oct, [facility] [place] [facility] [address] [id number] [place] [address]- 8619 Aug, [facility] [place] [facility] [address] [id number], [place] [address]- 9610 Aug, [facility] [place] [facility] [address] [id number], [place] [address]- 8234 Jul, [facility] [place] [facility] [address] [id number], [place] [address]- 0393 Jul, [facility] [place] [facility] [address] [id number] [place] [address]- 2899 Jul, [facility] [place] [facility] [address] [id number] [place] [address]- 2531 Jul, [facility] [place] [facility] [address] [id number], [place] [address]- 1588 Jun, [facility] [place] [facility] [address] [id number], [place] [address]- 0406 Jun, [facility] [place] [facility] [address] [id number] [place] [address]- 9211 Jan, [facility] [place] [facility] [address] [id number], [place] [address]- 0452 Oct, [facility] [place] [facility] [address] [facility] [id number] [place] [address]- 3487 Sep, [facility] [place] [facility] [address] [id number] [place] [address]- 9179 Sep, [facility] [place] [facility] [address] [id number] [place] [address]- 4166 Sep, [facility] [place] [facility] [address] [id number] [place] [address]- 5199 Sep, [facility] [place] [facility] [address] [id number], [place] [address]- 3897 Aug, [facility] [place] [facility] [address] [id number] [place] [address]- 0773 Aug, [facility] [place] [facility] [address] [id number], [place] [address]- 0698 Aug, [facility] [place] [facility] [address] [facility] [id number], [place] [address]- 0568 Aug, [facility] [place] [facility] [address] [id number], [place] [address]- 7286 Jul, [facility] [place] [facility] [address] [id number], [place] [address]- 4068 Jul, [facility] [place] [facility] [address] [id number], [place] [address]- 6775 Jul, [facility] [place] [facility] [address] [facility] [id number], [place] [address]- 3822 Jul, [facility] [place] [facility] [address] [facility] [id number], [place] [address]- 7467 Jul, [facility] [place] [facility] [address] [id number] [place] [address]- 4990 Jun, [facility] [place] [facility] [address] [id number] [place] [address]- 5386 Jun, [facility] [place] [facility] [address] [id number] [place] [address]- 2546 Jun, [facility] [place] [facility] [address] [id number] [place] [address]- 9437 May, [facility] [place] [facility] [address] [id number] [place] [address] 2546 May, [facility] [place] [facility] [address] [id number] [place] [address] Apr, [facility] [place] [facility] [address] [id number] [place] [address] Apr, [facility] [place] [facility] [address] [id number] [place] [address] Apr, [facility] [place] [facility] [address] [id number] [place] [address] Apr, [facility] [place] [facility] [address] [id number] [place] [address] Mar, [facility] [place] [facility] [address] [id number] [place] [address] Mar, [facility] [place] [facility] [address] [id number] [place] [address] Mar, [facility] [place] [facility] [address] [id number] [place] [address] February, [facility] [place] [facility] [address] [id number] [place] [address] February, [facility] [place] [facility] [address] [id number] [place] [address] February, [facility] [place] [facility] [address] [id number] [place] [address] February, [facility] [address] [id number] [place] [address] February, [facility] [place] [facility] [address] [id number] [place] [address] Jan, [facility] [place] [facility] [address] [id number] [place] [address] Jan, [facility] [place] [facility] [address] [id number] [place] [address] Jan, [facility] [place] [facility] [address] [id number] [place] [address] Dec, [facility] [place] [facility] [address] [id number] [place] [address] Dec, [facility] [place] [facility] [address] [id number] [place] [address] Dec, [facility] [place] [facility] [address] [id number] [place] [address] Nov, [facility] [place] [facility] [address] [id number] [place] [address] Nov, [facility] [place] [facility] [address] [id number] [place] [address] Nov, [facility] [place] [facility] [address] [id number] [place] [address] Nov, [facility] [place] [facility] [address] [id number] [place] [address] Oct, [facility] [place] [facility] [address] [id number] [place] [address] Oct, [facility] [place] [facility] [address] [id number] [place] [address] Sep, [facility] [place] [facility] [address] [id number] [place] [address] Sep, [facility] [place] [facility] [address] [id number] [place] [address] 14 Sep, 2011 [facility] [address] [id number] [place] [address] 05 Sep, 2011 [facility] [place] [facility] [address] [id number] [place] [address] 28 Aug, 2011 [facility] [address] [id number] [place] [address] Aug, [facility] [place] [facility] [address] [id number] [place] [address] Aug, [facility] [address] [id number] [place] [address] Jul, [facility] [place] [facility] [address] [id number] [place] [address] Jul, [facility] [address] [id number] [place] [address] Jul, [facility] [address] [id number] [place] [address] May, [facility] [place] [facility] [address] [id number] [place] [address] February[facility] [address] [id number] [place] [address] Nov, [facility] [place] [facility] [address] [id number] [place] [address] 14 Oct, 2010 [facility] [place] [facility] [address] [id number] [place] [address] Oct, [facility] [facility] [address] [id number] [place] [address] Sep, [facility] [place] [facility] [address] [id number] [place] [address] Sep, [facility] [place] [facility] [address] [id number] [place] [address] Sep, [facility] [address] [id number] [place] [address] 16 Sep, 2010 [facility] [place] [facility] [address] [id number] [place] [address] 10 Sep, 2010 [facility] [place] [facility] [address] [id number] [place] [address] 10 Sep, 2010 [facility] [place] [facility] [address] [id number] [place] [address] 29 Aug, 2010 [facility] [place] [facility] [address] [id number] [place] [address] 23 Aug, 2010 [facility] [place] [facility] [address] [id number] [place] [address] 18 Aug, 2010 [facility] [place] [facility] [address] [id number] [place] [address] 17 Aug, 2010 [facility] [place] [facility] [address] [id number], [place] [address] 16 Aug, 2010 [facility] [place] [facility] [address] [id number] [place] [address] Jul, [facility] [place] [facility] [address] [id number], [place] [address] 16 Jun, 2010 [facility] [place] [facility] [address] [id number], [place] [address] February, [facility] [place] [facility] [address] [id number], [place] [address] Oct, [facility] [place] [facility] [address] [id number], [place] [address] Sep, [facility] [facility] [address] [id number], [place] [address] Aug, [facility] [facility] [address] [id number], [place] [address] Aug, [facility] [facility] [address] [id number], [place] [address] Aug, [facility] [address] [id number], [place] [address] 20 Jul, 2009 [facility] [id number], [place] [address] 15 Jul, 2009 [facility] [address] [id number], [place] [address] 15 Jul, 2009 [facility] [id number], [place] [address] 14 Jun, 2009 [facility] [id number], [place] [address] 10 Jun, 2009 [facility] [id number], [place] [address] 16 Mar, 2009 [facility] [id number], [place] [address] Jan, [facility] [id number], [place] [address] Aug, IMMUNIZATIONS No Known Immunizations SOCIAL HISTORY Never Assessed REASON FOR VISIT Lyrica refill 08/27 PLAN OF CARE VITAL SIGNS MEDICATIONS Medication Instructions Dosage Frequency Start Date End Date Duration Status Lyrica 100 mg Orally 4 times a day 1 capsule 6h 28 days Active RESULTS No Results PROCEDURES No Known procedures [...]
--- OUTSIDE RECORDS SUMMARY | 2018-11-13 11:41 | XMS REPORT ---
Author Author MARIMAR JONES Organization [facility] Address [address] [place] [address] Care Team Providers Care Cutter Wet Machine Name Role Phone MARIMAR JONES Unavailable PROBLEMS Type Condition ICD9-CM Code XOJ68-TD Code Onset Dates Condition Status SNOMED Code Problem Borderline personality disorder F60.3 Active 71744951 Problem Post-traumatic stress disorder, chronic F43.12 Active 68856984 Problem Carpal tunnel syndrome of right wrist G56.01 Active 357782000141420 Problem PAD (peripheral artery disease) I73.9 Active 759975235 Problem Anxiety F41.9 Active 69929432 Problem Cannabis use disorder, mild, abuse F12.10 Active 72267582 Problem Bipolar affective, depress, mod F31.32 Active 983208954 Problem Fibromyalgia M79.7 Active 001008939 Problem Cervical radiculopathy M54.12 Active 89122813 Problem CAD (coronary artery disease) I25.10 Active 71911683 Problem Depression F32.9 Active 12840894 Problem Back pain M54.9 Active 766322903 Problem Tobacco abuse Z72.0 Active 21613653 Problem Hyperlipidemia E78.5 Active 12951175 ALLERGIES No Information ENCOUNTERS Encounter Location Date Diagnosis [facility] [id number] [place] [address] 69889- 6521 Oct, [facility] [address] [address] Aug, [facility] [id number] [place] [address] 66505- 2152 Aug, Cervical radiculopathy M54.12 [facility] [id number] [place] [address] 31565- 0092 Aug, [facility] [id number] [place] [address] 52777- 1925 Aug, Post-traumatic stress disorder, chronic F43.12 ; Bipolar affective, depress, mod F31.32 ; Borderline personality disorder F60.3 ; Cannabis use disorder, mild, abuse F12.10 and Other retirement (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.899 [facility] [facility] [id number] [place] [address] 58120- 5320 Jul, Cervical radiculopathy M54.12 [facility] [facility] [address] 63320- 6829 Jul, Hoarseness, persistent R49.[address] 97156- 4251 Jul, [facility] [facility] [address] 94684- 7638 Jul, Dental abscess K04.7 ; Cervical radiculopathy M54.12 and Allergic state, initial encounter T78.40XA [facility] [facility] [address] 06286- 2542 Jul, [address] 39908- 2728 May, [address] 94728- 0227 May, [address] 36598- 1663 Apr, Post-traumatic stress disorder, chronic F43.12 ; Bipolar affective, depress, mod F31.32 ; Borderline personality disorder F60.3 and Cannabis use disorder, mild, abuse F12.[address] 70800- 9980 Apr, Cervical radiculopathy M54.12 ; Back pain M54.9 ; Fibromyalgia M79.7 and High risk heterosexual behavior Z72.[address] 37475- 2762 Apr, [facility] [address] [address] 3307 Mar, Bipolar affective, depress, mod F31.32 ; Post-traumatic stress disorder, chronic F43.12 ; Borderline personality disorder F60.3 and Cannabis use disorder, mild, abuse F12.10 [facility] [id number] [place] [address] 25381- 8165 Mar, Tobacco abuse Z72.0 [facility] [facility] [id number] [place] [address] 25408- 2219 Mar, [facility] [facility] [address] 02328- 5732 February, Fibromyalgia M79.7 [facility] [id number] [place] [address] 85968- 6981 Jan, Post-traumatic stress disorder, chronic F43.12 ; Bipolar affective, depress, mod F31.32 ; Borderline personality disorder F60.3 and Cannabis use disorder, mild, abuse F12.10 [facility] [id number] [place] [address] 88883- 0887 Jan, [facility] [facility] [id number] [place] [address] [address] Dec, Bipolar affective, depress, mod F31.32 ; Post-traumatic stress disorder, chronic F43.12 ; Borderline personality disorder F60.3 and Cannabis use disorder, mild, abuse F12.10 [facility] [address] [place] [address] 18245- 4208 Dec, Hoarseness R49.0 ; Bronchitis J40 ; PAD (peripheral artery disease) I73.9 and Tobacco abuse Z72.0 [facility] [address] [place] [address] 92032- 0309 Nov, Bipolar affective, depress, mod F31.32 ; Post-traumatic stress disorder, chronic F43.12 ; Borderline personality disorder F60.3 and Cannabis use disorder, mild, abuse F12.10 [facility] [id number] [place] [address] 56224- 209 Oct, Post-traumatic stress disorder, chronic F43.12 ; Bipolar affective, depress, mod F31.32 ; Borderline personality disorder F60.3 and Cannabis use disorder, mild, abuse F12.10 [facility] [id number] [place] [address] 50714- 377 Oct, Bipolar affective, depress, mod F31.32 ; Post-traumatic stress disorder, chronic F43.12 and Borderline personality disorder F60.3 [facility] [id number] [place] [address] 56723- 7915 Sep, Anxiety F41.9 [place] [id number] [place] [address]- 979 Aug, Bipolar affective, depress, mod F31.32 ; Post-traumatic stress disorder, chronic F43.12 and Borderline personality disorder F60.3 [place] [id number] [place] [address] [address]36 Aug, Bipolar affective, depress, mod F31.32 ; Post-traumatic stress disorder, chronic F43.12 and Borderline personality disorder F60.3 [place] [id number] [place] [address] 81580- 0484 Aug, Fibromyalgia M79.7 ; Back pain M54.9 and Cervical radiculopathy M54.12 [place] [id number] [place] [address] 31098- 8331 Aug, Bipolar affective, depress, mod F31.32 and Post-traumatic stress disorder, chronic F43.12 [place] [id number] [place] [address] 619003- 8958 Jul, Depression F32.9 ; Borderline personality disorder F60.3 and Bipolar affective, depress, mod F31.32 [place] [id number] [place] [address] 84528- 5545 Jul, Post-traumatic stress disorder, chronic F43.12 ; Bipolar affective, depress, mod F31.32 ; Borderline personality disorder F60.3 and Cannabis use disorder, mild, abuse F12.10 [place] [id number] [place] [address] 3985 Jul, Other retirement (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.899 [facility] [id number] [place] [address] 51407- 6515 Jun, [place] [address] 720738- 1149 Jun, Depression F32.9 ; Borderline personality disorder F60.3 and Bipolar affective, depress, mod F31.32 [facility] [id number] [place] [address] 21933- 0516 Jun, Depression F32.9 and Borderline personality disorder F60.3 [facility] [id number] [place] [address] 98839- 0978 May, Post-traumatic stress disorder, chronic F43.12 [place] [id number] [place] [address] 74271- 5871 May, Depression F32.9 and Borderline personality disorder F60.3 [place] [id number] [place] [address] 93675- 4639 Apr, Post-traumatic stress disorder, chronic F43.12 ; Bipolar affective, depress, mod F31.32 ; Borderline personality disorder F60.3 ; Other retirement (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.899 and Cannabis use disorder, mild, abuse F12.10 [place] [address] [place] [address] 74223- 8578 Apr, Depression F32.9 and Borderline personality disorder F60.3 [place] [id number] [place] [address] 97121- 2016 Apr, Depression F32.9 and Borderline personality disorder F60.3 [place] [id number] [place] [address] 09597- 0314 Mar, Depression F32.9 and Borderline personality disorder F60.3 [facility] [id number] [place] [address] 95108- 3691 February, Depression F32.9 and Borderline personality disorder F60.3 [facility] [id number] [place] [address] 99886- 4755 February, Back pain M54.9 [facility] [address] 52130- 6481 February, Depression F32.9 and Borderline personality disorder F60.3 [place] [address] 59146- 4633 February, Post-traumatic stress disorder, chronic F43.12 ; Borderline personality disorder F60.3 and Bipolar affective disorder, depressed, mild F31.31 [place] [id number] [place] [address] 69549- 7638 February, [facility] [id number] [place] [address] 21948- 8657 February, Depression F32.9 and Borderline personality disorder F60.3 [facility] [facility] [id number] [place] [address] 77937- 8321 Jan, [facility] [id number] [place] [address] 87213- 4269 Jan, Depression F32.9 and Borderline personality disorder F60.3 [facility] [id number] [place] [address] 56706- 4505 Jan, Acute lateral meniscus tear of right knee, initial encounter S83.281A [facility] [address] 40631- 1039 Jan, Depression F32.9 and Borderline personality disorder F60.3 [facility] [id number] [place] [address] 03218- 6806 Dec, Depression F32.9 and Borderline personality disorder F60.3 [facility] [facility] [id number] [place] [address] 41766- 7501 Dec, Depression F32.9 and Borderline personality disorder F60.3 [facility] [id number] [place] [address] 33636- 4425 28 Nov, 2016 Hyperlipidemia E78.5 ; Knee locking, right M23.91 and Carpal tunnel syndrome of right wrist G56.01 [place] [address] 30794- 1986 23 Nov, 2016 Bipolar affective, depress, mod F31.32 ; Post-traumatic stress disorder, chronic F43.12 and Borderline personality disorder F60.3 [place] [id number] [place] [address] 13699- 1078 16 Nov, 2016 Depression F32.9 and Borderline personality disorder F60.3 [facility] [address] 46952- 3251 Oct, Post-traumatic stress disorder, chronic F43.12 and 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 [place] [address] 91195- 3108 Oct, Nondisplaced fracture of distal end of right radius with routine healing, subsequent encounter S52.501D [place] [address] 38836- 9198 Sep, [place] [address] 08523- 8601 Aug, Right wrist fracture, closed, initial encounter S62.101A [place] [address] 85930- 2320 Aug, [place] [id number] [place] [address] 45662- 8973 24 Jul, 2016 Back pain M54.9 and Hyperlipidemia E78.5 [place] [address] 46850- 3639 Jul, Post-traumatic stress disorder, chronic F43.12 and 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 [place] [id number] [place] [address] 51845- 3852 Apr, Bipolar affective, depress, mod F31.32 ; Post-traumatic stress disorder, chronic F43.12 and 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 [place] [address] 03278- 8756 Mar, [place] [address] 04932- 0079 Jan, Post-traumatic stress disorder, chronic F43.12 and Depression F32.9 [place] [address] 28015- 8929 Dec, [place] [address] 96679- 7954 Nov, Shoulder pain, left M25.512 and Bronchitis J40 [address] 73110- 1699 Sep, Hyperlipidemia E78.[address] 41405- 6765 Sep, Hyperlipidemia E78.5 [place] [id number] [place] [address] 22587- 8846 Sep, [facility] [id number] [place] [address] 35279- 6429 Sep, Back pain M54.9 ; CAD (coronary artery disease) I25.10 and Depression F32.9 [place] [address] 10419- 9068 Sep, URI (upper respiratory infection) J06.9 ; Nausea & vomiting R11.2 and Tobacco abuse Z72.[address] 53865- 5121 Mar, Posttraumatic stress disorder 309.81 ; Major depressive disorder, recurrent episode, in partial remission 296.35 ; Nightmares associated with chronic post-traumatic stress disorder 307.47 ; Thoracic or lumbosacral neuritis or radiculitis, unspecified 724.4 ; Borderline personality disorder 301.83 and High risk medication use V58.69 [facility] [id number] [place] [address] 47762- 6328 Jan, [facility] [id number] [place] [address] 05262- 4297 Jan, [facility] [id number] [place] [address] 52960- 8191 Dec, [facility] [id number] [place] [address] 13348- 1492 Dec, [facility] [id number] [place] [address] 167550- 9571 Sep, [facility] [id number] [place] [address] 485624- 3992 Sep, [facility] [id number] [place] [address] 746604- 6118 Sep, [facility] [id number] [place] [address] 567684- 4298 Sep, [facility] [id number] [place] [address] 578470- 0070 Sep, [facility] [address] [place] [address] 720017- 3193 Jul, [facility] [id number] [place] [address] 40647- 0792 Jul, [facility] [id number] 7646 Jul, [facility] [id number] [place] [address] 408780- 8160 Jul, [facility] [place] [facility] [address] [id number] [place] [address]- 8326 Jul, [facility] [place] [facility] [address] [id number] [place] [address]- 2747 Jul, [facility] [place] [facility] [address] [id number] [place] [address]- 3292 Jul, [facility] [place] [facility] [address] [id number] [place] [address]- 8454 Jul, [facility] [place] [facility] [address] [id number] [place] [address]- 1047 May, [facility] [place] [facility] [address] [id number] [place] [address]- 8224 May, [facility] [place] [facility] [address] [id number] [place] [address]- 7002 May, [facility] [place] [facility] [address] [id number] [place] [address]- 0131 May, [facility] [place] [facility] [address] [id number] [place] [address]- 6121 May, [facility] [place] [facility] [address] [id number] [place] [address]- 5223 May, [facility] [place] [facility] [address] [id number] [place] [address]- 2317 Mar, [facility] [place] [facility] [address] [id number] [address]- 7761 Mar, [facility] [place] [facility] [address] [id number] [place] [address]- 1893 February, [facility] [place] [facility] [address] [id number] [place] [address]- 5020 February, [facility] [place] [facility] [address] [id number] [place] [address]- 7172 February, [facility] [place] [facility] [address] [id number] [place] [address]- 7578 February, [facility] [place] [facility] [address] [id number] [place] [address]- 9441 February, [facility] [place] [facility] [address] [id number] [place] [address]- 1435 February, [facility] [place] [facility] [address] [id number] [place] [address]- 0068 February, [facility] [place] [facility] [address] [id number] [place] [address]- 3521 Jan, [facility] [place] [facility] [address] [id number] [place] [address]- 4640 Jan, [facility] [place] [facility] [address] [id number] [place] [address]- 5338 Jan, [facility] [place] [facility] [address] [id number] [place] [address]- 4135 Jan, [facility] [place] [facility] [address] [id number] [place] [address]- 5054 Dec, [facility] [place] [facility] [address] [id number] [place] [address]- 5208 Dec, [facility] [place] [facility] [address] [facility] [id number] [place] [address]- 2107 Dec, [facility] [place] [facility] [address] [id number] [place] [address]- 1467 Dec, [facility] [place] [facility] [address] [id number] [place] [address]- 1493 Nov, [facility] [place] [facility] [address] [id number] [place] [address]- 5535 Nov, [facility] [place] [facility] [address] [id number] [place] [address]- 7809 Nov, [facility] [place] [facility] [address] [facility] [id number] [place] [address]- 2026 Nov, [facility] [place] [facility] [address] [id number] [place] [address]- 3675 Nov, [facility] [place] [facility] [address] [id number] [place] [address]- 3606 Nov, [facility] [place] [facility] [address] [id number] [place] [address]- 4486 Nov, [facility] [place] [facility] [address] [id number] [place] [address]- 9579 Nov, [facility] [place] [facility] [address] [id number] [place] [address]- 8906 Oct, [facility] [place] [facility] [address] [id number] [place] [address]- 5664 Oct, [facility] [place] [facility] [address] [id number] [place] [address]- 7765 Oct, [facility] [place] [facility] [address] [id number] [place] [address]- 9644 Oct, [facility] [place] [facility] [address] [id number] [place] [address]- 9272 Oct, [facility] [place] [facility] [address] [id number] [place] [address]- 2459 Oct, [facility] [place] [facility] [address] [id number] [place] [address]- 3581 Oct, [facility] [place] [facility] [address] [id number] [place] [address]- 2383 Oct, [facility] [place] [facility] [address] [id number] [place] [address]- 4818 Oct, [facility] [place] [facility] [address] [id number] [place] [address]- 8979 Oct, [facility] [place] [facility] [address] [id number] [place] [address]- 3358 Oct, [facility] [place] [facility] [address] [id number], [place] [address]- 0585 Aug, [facility] [address] [id number] [place] [address]- 5575 Aug, [facility] [place] [facility] [address] [facility] [id number] [place] [address]- 9680 Jul, [facility] [place] [facility] [address] [facility] [id number] [place] [address]- 8966 Jul, [facility] [place] [facility] [address] [id number] [place] [address]- 2515 Jul, [facility] [address] [id number] [place] [address]- 6589 Jul, [facility] [place] [facility] [address] [facility] [id number] [place] [address]- 4878 Jun, [facility] [id number] [place] [address]- 5331 Jun, [facility] [place] [facility] [address] [facility] [id number] [place] [address]- 4324 Jan, [facility] [id number] [place] [address]- 8625 Oct, [facility] [place] [facility] [address] [facility] [id number] [place] [address]- 4039 Sep, [facility] [place] [facility] [address] [facility] [id number], [place] [address]- 3137 Sep, [facility] [place] [facility] [address] [facility] [id number], [place] [address]- 4992 Sep, [facility] [place] [facility] [address] [facility] [id number] [place] [address]- 0336 Sep, [facility] [place] [facility] [address] [facility] [id number] [place] [address]- 6517 Aug, [facility] [place] [facility] [address] [facility] [id number] [place]- 4563 Aug, [facility] [place] [facility] [address] [id number] [place] [address]- 2546 Aug, [facility] [place] [facility] [address] [id number] [place] [address]- 9347 Aug, [facility] [place] [facility] [address] [id number] [place] [address]- 2546 Jul, [facility] [place] [facility] [address] [id number] [place] [address] 2540 Jul, [facility] [place] [facility] [address] [id number] [place] [address]- 2546 Jul, [facility] [place] [facility] [address] [id number] [place] [address]- 3106 Jul, [facility] [place] [facility] [address] [id number] [place] [address]- 8009 Jul, [facility] [place] [facility] [address] [id number] [place] [address]- 9420 Jun, [facility] [place] [facility] [address] [id number] [place] [address]- 0745 Jun, [facility] [place] [facility] [address] [id number] [place] [address] Jun, [facility] [place] [facility] [address] [id number] [place] [address] May, [facility] [place] [facility] [address] [id number] [place] [address] May, [facility] [place] [facility] [address] [id number] [place] [address] Apr, [facility] [place] [facility] [address] [id number] [place] [address] Apr, [facility] [place] [facility] [address] [id number] [place] [address] Apr, [facility] [place] [facility] [address] [id number] [place] [address] Apr, [facility] [place] [facility] [address] [id number] [place] [address] Mar, [facility] [place] [facility] [address] [id number] [place] [address] Mar, [facility] [place] [facility] [address] [id number] [place] [address] Mar, [facility] [place] [facility] [address] [id number] [place] [address] February, [facility] [place] [facility] [address] [id number] [place] [address] February, [facility] [place] [facility] [address] [id number] [place] [address] February, [facility] [place] [facility] [address] [id number] [place] [address] February, [facility] [place] [facility] [address] [id number] [place] [address] February, [facility] [place] [facility] [address] [id number] [place] [address] Jan, [facility] [place] [facility] [address] [id number] [place] [address] Jan, [facility] [place] [facility] [address] [id number] [place] [address] Jan, [facility] [place] [facility] [address] [id number] [address] Dec, [facility] [place] [facility] [address] [id number] [place] [address] Dec, [facility] [place] [facility] [address] [id number] [place] [address] Dec, [facility] [place] [facility] [address] [id number] [place] [address] Nov, [facility] [place] [facility] [address] [id number] [place] [address] 16 Nov, 2011 [facility] [address] [id number] [place] [address] 07 Nov, 2011 [facility] [place] [facility] [address] [id number] [place] [address] 06 Nov, 2011 [facility] [address] [id number] [place] [address] Oct, [facility] [place] [facility] [address] [id number] [place] [address] Oct, [facility] [address] [id number] [place] [address], [place] Sep, [facility] [address] [id number] [place] [address] Sep, [facility] [address] [facility] [id number] [place] [address] Sep, [facility] [address] [id number] [place] [address] 05 Sep, 2011 [facility] [place] [facility] [address] [facility] [id number] [place] [address] Aug, [facility] [address] [facility] [id number] [place] [address]- [address] Aug, [facility] [place] [facility] [address] [id number] [place] [address] Aug, [facility] [place] [facility] [address] [id number] [place] [address] Jul, [facility] [place] [facility] [address] [id number] [place] [address] Jul, [facility] [place] [facility] [address] [facility] [id number] [place] [address] Jul, [facility] [place] [facility] [address] [facility] [id number] [place] [address] May, [facility] [place] [facility] [address] [id number] [place] [address] February, [facility] [place] [facility] [address] [id number] [place] [address] 17 Nov, 2010 [facility] [place] [facility] [address] [id number] [place] [address] 14 Oct, 2010 [facility] [place] [facility] [address] [id number] [place] [address] 10 Oct, 2010 [facility] [place] [facility] [address] [id number] [place] [address] 22 Sep, 2010 [facility] [place] [facility] [address] [id number] [place] [address] 17 Sep, 2010 [facility] [place] [facility] [address] [id number] [place] [address] 17 Sep, 2010 [facility] [place] [facility] [address] [id number] [place] [address] 16 Sep, 2010 [facility] [place] [facility] [address] [id number] [place] [address] Sep, [facility] [place] [facility] [address] [id number] [place] [address] Sep, [facility] [place] [facility] [address] [id number] [place] [address] 29 Aug, 2010 [facility] [place] [facility] [address] [id number] [address] 23 Aug, 2010 [facility] [place] [facility] [address] [id number] [place] [address] 18 Aug, 2010 [facility] [place] [facility] [address] [id number], [place] [address] 17 Aug, 2010 [facility] [place] [facility] [address] [id number], [place] [address] 16 Aug, 2010 [facility] [place] [facility] [address] [id number], [place] [address] 25 Jul, 2010 [facility] [address] [facility] [id number], [place] [address] 16 Jun, 2010 [facility] [place] [address] [id number] [address] 15 Feb, 2010 [facility] [id number] [address] Oct, [facility] [address] [id number], [place] [address] Sep, [facility] [id number] [place] [address] 24 Aug, 2009 [facility] [id number] [address] Aug, [facility] [id number] [place] [address] Aug, [facility] [id number], [place] [address] 20 Jul, 2009 [facility] [id number] [address] 15 Jul, 2009 [facility] [id number] [address] 15 Jul, 2009 [facility] [address], [place] [address] 14 Jun, 2009 [facility] [address] [id number], [place] [address] 10 Jun, 2009 [facility] [id number], [place] [address] 16 Mar, 2009 [facility] [address] [id number] [address] 13 Jan, 2009 [facility] [id number], [place] [address] 05 Aug, 2008 IMMUNIZATIONS No Known Immunizations SOCIAL HISTORY Never Assessed REASON FOR VISIT medication refill PLAN OF CARE VITAL SIGNS MEDICATIONS Medication [...]
--- OUTSIDE RECORDS SUMMARY | 2018-11-13 11:42 | XMS REPORT ---
Author Author MARIMAR JONES Organization [facility] Address [address] [place] [address] Care Team Providers Care Dance Coach Name Role Phone MARIMAR JONES Unavailable PROBLEMS Type Condition ICD9-CM Code ODP68-EC Code Onset Dates Condition Status SNOMED Code Problem Borderline personality disorder F60.3 Active 32426845 Problem Post-traumatic stress disorder, chronic F43.12 Active 92035116 Problem Carpal tunnel syndrome of right wrist G56.01 Active [id number] Problem PAD (peripheral artery disease) I73.9 Active 611647337 Problem Anxiety F41.9 Active 88600060 Problem Cannabis use disorder, mild, abuse F12.10 Active 51890508 Problem Bipolar affective, depress, mod F31.32 Active 676310784 Problem Fibromyalgia M79.7 Active 458060642 Problem Cervical radiculopathy M54.12 Active 38929912 Problem CAD (coronary artery disease) I25.10 Active 19137407 Problem Depression F32.9 Active 60351696 Problem Back pain M54.9 Active 307707897 Problem Tobacco abuse Z72.0 Active 45477171 Problem Hyperlipidemia E78.5 Active 13142560 ALLERGIES No Information ENCOUNTERS Encounter Location Date Diagnosis [facility] [id number] [address] Jul, [facility] [id number] [address] May, [facility] [address] [place] [address] 15040- 8639 May, [facility] [address] [place] [address] 40891- 0323 Apr, Post-traumatic stress disorder, chronic F43.12 ; Bipolar affective, depress, mod F31.32 ; Borderline personality disorder F60.3 and Cannabis use disorder, mild, abuse F12.10 [address] [place] [address] 70260- 5663 Apr, Cervical radiculopathy M54.12 ; Back pain M54.9 ; Fibromyalgia M79.7 and High risk heterosexual behavior Z72.51 [address] [id number] [place] [address] 50679- 7616 Apr, [address] [id number] [place] [address] 801339- 8049 Mar, Bipolar affective, depress, mod F31.32 ; Post-traumatic stress disorder, chronic F43.12 ; Borderline personality disorder F60.3 and Cannabis use disorder, mild, abuse F12.10 [address] [id number] [place] [address] 23813- 3927 Mar, Tobacco abuse Z72.0 [id number] [place] [address] 08758- 9455 Mar, [place] [id number] [place] [address] 26685- 9120 February, Fibromyalgia M79.7 [id number] [place] [address] 159408- 5374 Jan, Post-traumatic stress disorder, chronic F43.12 ; Bipolar affective, depress, mod F31.32 ; Borderline personality disorder F60.3 and Cannabis use disorder, mild, abuse F12.10 [address] [place] [address] [place] [address] 44085- 6836 Jan, [address] [place] [address] 88314- 8181 Dec, Bipolar affective, depress, mod F31.32 ; Post-traumatic stress disorder, chronic F43.12 ; Borderline personality disorder F60.3 and Cannabis use disorder, mild, abuse F12.10 [address] [place] [address] [place] [address] 74205- 6412 20 Mar, 2018 Hoarseness R49.0 ; Bronchitis J40 ; PAD (peripheral artery disease) I73.9 and Tobacco abuse Z72.0 [address] [place] [address] Nov, Bipolar affective, depress, mod F31.32 ; Post-traumatic stress disorder, chronic F43.12 ; Borderline personality disorder F60.3 and Cannabis use disorder, mild, abuse F12.10 [address] [place] [address]- 296 Oct, Post-traumatic stress disorder, chronic F43.12 ; Bipolar affective, depress, mod F31.32 ; Borderline personality disorder F60.3 and Cannabis use disorder, mild, abuse F12.10 [address] [place] [address] 99965- 688 Oct, Bipolar affective, depress, mod F31.32 ; Post-traumatic stress disorder, chronic F43.12 and Borderline personality disorder F60.3 [address] [place] [address] [id number]- 3938 Sep, Anxiety F41.9 [address] [place] [address] 221570- 8363 Aug, Bipolar affective, depress, mod F31.32 ; Post-traumatic stress disorder, chronic F43.12 and Borderline personality disorder F60.3 [address] [place] [id number] [place] [address] 54898- 8495 Aug, Bipolar affective, depress, mod F31.32 ; Post-traumatic stress disorder, chronic F43.12 and Borderline personality disorder F60.3 [address] [id number] [place] [address] 36535- 5316 Aug, Fibromyalgia M79.7 ; Back pain M54.9 and Cervical radiculopathy M54.12 [address] [place] [id number] [place] [address] 41259- 0419 Aug, Bipolar affective, depress, mod F31.32 and Post-traumatic stress disorder, chronic F43.12 [facility] [address] [place] [address] 61210- 5332 Jul, Depression F32.9 ; Borderline personality disorder F60.3 and Bipolar affective, depress, mod F31.32 [facility] [address] [place] [address] 78119- 8929 Jul, Post-traumatic stress disorder, chronic F43.12 ; Bipolar affective, depress, mod F31.32 ; Borderline personality disorder F60.3 and Cannabis use disorder, mild, abuse F12.10 [address] [place] [address] 32235- 7882 Jul, Other mcc (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.899 [address] [place] [id number] [place] [address] 30410- 9435 Jun, [address] [place] [id number] [place] [address] 225100- 4801 Jun, Depression F32.9 ; Borderline personality disorder F60.3 and Bipolar affective, depress, mod F31.32 [address] [place] [id number] [place] [address] 40921- 6641 Jun, Depression F32.9 and Borderline personality disorder F60.3 [address] [place] [id number] [place] [address] 25732- 7172 May, Post-traumatic stress disorder, chronic F43.12 [address] [id number] [place] [address] 59420- 3250 May, Depression F32.9 and Borderline personality disorder F60.3 [address] [place] [address] [place] [address] 64866- 0855 Apr, Post-traumatic stress disorder, chronic F43.12 ; Bipolar affective, depress, mod F31.32 ; Borderline personality disorder F60.3 ; Other mcc (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.899 and Cannabis use disorder, mild, abuse F12.10 [address] [id number] [place] [address] 75965- 9068 Apr, Depression F32.9 and Borderline personality disorder F60.3 [facility] [id number] [place] [address] 21497- 8763 Apr, Depression F32.9 and Borderline personality disorder F60.3 [facility] [id number] [place] [address] 00390- 7368 Mar, Depression F32.9 and Borderline personality disorder F60.3 [facility] [id number] [place] [address] 13155- 3530 February, Depression F32.9 and Borderline personality disorder F60.3 [facility] [id number] [place] [address] 77502- 0056 February, Back pain M54.9 [facility] [id number] [place] [address] 23267- 7141 February, Depression F32.9 and Borderline personality disorder F60.3 [facility] [id number] [place] [address] 14592- 1472 February, Post-traumatic stress disorder, chronic F43.12 ; Borderline personality disorder F60.3 and Bipolar affective disorder, depressed, mild F31.31 [facility] [id number] [place] [address] 95999- 2724 February, [facility] [id number] [place] [address] 27084- 8155 February, Depression F32.9 and Borderline personality disorder F60.3 [facility] [id number] [place] [address] 71509- 3455 Jan, [facility] [id number] [place] [address] 17232- 9364 Jan, Depression F32.9 and Borderline personality disorder F60.3 [facility] [address] [place] [address] 38587- 0567 Jan, Acute lateral meniscus tear of right knee, initial encounter S83.281A [facility] [id number] [place] [address] 73185- 3253 Jan, Depression F32.9 and Borderline personality disorder F60.3 [facility] [id number] [place] [address] 22066- 5447 Dec, Depression F32.9 and Borderline personality disorder F60.3 [address] [place] [address] 85768- 7459 Dec, Depression F32.9 and Borderline personality disorder F60.3 [address] [place] [id number] [place] [address] 12054- 5564 28 Nov, 2016 Hyperlipidemia E78.5 ; Knee locking, right M23.91 and Carpal tunnel syndrome of right wrist G56.01 [address] [address] [place] [address] 98013- 1348 23 Nov, 2016 Bipolar affective, depress, mod F31.32 ; Post-traumatic stress disorder, chronic F43.12 and Borderline personality disorder F60.3 [address] [id number] [place] [address] 62786- 5737 16 Nov, 2016 Depression F32.9 and Borderline personality disorder F60.3 [address] [id number] [place] [address] 01818- 2335 Oct, Post-traumatic stress disorder, chronic F43.12 and Other manager intermediate (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.899 [address] [place] [place] [address] 14371- 8427 Oct, Nondisplaced fracture of distal end of right radius with routine healing, subsequent encounter S52.501D [place] [address] [place] [address] 55529- 8357 Sep, [facility] [id number] [place] [address] 37470- 4358 Aug, Right wrist fracture, closed, initial encounter S62.101A [facility] [address] [place] [address] 31605- 4199 Aug, [facility] [id number] [place] [address] 01882- 0906 Jul, Back pain M54.9 and Hyperlipidemia E78.5 [facility] [id number] [place] [address] 96128- 2786 Jul, Post-traumatic stress disorder, chronic F43.12 and Other manager intermediate (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.899 [facility] [address] [place] [address] 24740- 9216 Apr, Bipolar affective, depress, mod F31.32 ; Post-traumatic stress disorder, chronic F43.12 and Other mcc (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.899 [facility] [id number] [place] [address] 28223- 1466 Mar, [facility] [id number] [place] [address] 33709- 4069 Jan, Post-traumatic stress disorder, chronic F43.12 and Depression F32.9 [facility] [id number] [place] [address] 22660- 4785 Dec, [facility] [id number] [place] [address] 54972- 2584 Nov, Shoulder pain, left M25.512 and Bronchitis J40 [facility] [id number] [place] [address] 22298- 7776 Sep, Hyperlipidemia E78.5 [facility] [address] [place] [address] 32158- 9266 Sep, Hyperlipidemia E78.5 [facility] [id number] [place] [address] 50094 2546 Sep, [facility] [id number] [place] [address] 06514- 7260 Sep, Back pain M54.9 ; CAD (coronary artery disease) I25.10 and Depression F32.9 [facility] [address] 72396- 2146 Sep, URI (upper respiratory infection) J06.9 ; Nausea & vomiting R11.2 and Tobacco abuse Z72.0 [facility] [address] 49217- 8098 Mar, Posttraumatic stress disorder 309.81 ; Major depressive disorder, recurrent episode, in partial remission 296.35 ; Nightmares associated with chronic post-traumatic stress disorder 307.47 ; Thoracic or lumbosacral neuritis or radiculitis, unspecified 724.4 ; Borderline personality disorder 301.83 and High risk medication use V58.69 [facility] [address] 06413- 9646 14 Jan, 2015 [facility] [address] 95754- 9658 Jan, [facility] [address] 74201- 6626 Dec, [facility] [address] 69169- 4257 Dec, [facility] [id number] [place] [address] 66466- 7320 Sep, [facility] [address] 39301- 0969 Sep, [facility] [id number] [place] [address] 41355- 6621 Sep, [facility] [address] 07315- 7122 Sep, [facility] [id number] [place] [address] 58474- 7390 Sep, [facility] [address] 62761- 7119 Jul, [facility] [place] [facility] [address] [id number] [place] [address]- 1589 Jul, [facility] [place] [facility] [address] [id number] [place] [address]- 8722 Jul, [facility] [place] [facility] [address] [id number] [place] [address]- 3430 Jul, [facility] [place] [facility] [address] [id number] [place] [address]- 4710 Jul, [facility] [place] [facility] [address] [id number] [place] [address]- 8318 Jul, [facility] [place] [facility] [address] [id number] [place] [address]- 7220 Jul, [facility] [place] [facility] [address] [id number] [place] [address]- 9837 Jul, [facility] [place] [facility] [address] [id number] [place] [address]- 9635 May, [facility] [place] [facility] [address] [id number] [place] [address]- 0829 May, [facility] [place] [facility] [address] [id number] [place] [address]- 7193 May, [facility] [place] [facility] [address] [id number] [address]- 1614 May, [facility] [place] [facility] [address] [id number], [place] [address]- 2199 May, [facility] [place] [facility] [address] [id number] [place] [address]- 5721 May, [facility] [place] [facility] [address] [id number] [place] [address]- 9194 Mar, [facility] [place] [facility] [address] [id number] [place] [address]- 5767 Mar, [facility] [place] [facility] [address] [id number] [place] [address]- 5081 February, [facility] [place] [facility] [address] [id number] [place] [address]- 7290 February, [facility] [place] [facility] [address] [id number] [place] [address]- 4907 February, [facility] [place] [facility] [address] [id number] [place] [address]- 6536 February, [facility] [place] [facility] [address] [id number] [place] [address]- 7548 February, [facility] [place] [facility] [address] [id number] [place] [address]- 6046 February, [facility] [place] [facility] [address] [id number] [place] [address]- 7606 February, [facility] [place] [facility] [address] [id number] [place] [address]- 4404 Jan, [facility] [place] [facility] [address] [id number] [place] [address]- 8641 Jan, [facility] [place] [facility] [address] [id number] [place] [address]- 6947 Jan, [facility] [place] [facility] [address] [id number] [place] [address]- 2379 Jan, [facility] [place] [facility] [address] [id number] [place] [address]- 9986 Dec, [facility] [place] [facility] [address] [id number] [place] [address]- 8478 Dec, [facility] [place] [facility] [address] [id number] [place] [address]- 4960 Dec, [facility] [place] [facility] [address] [id number] [place] [address]- 9233 Dec, [facility] [place] [facility] [address] [id number] [place] [address]- 4891 Nov, [facility] [place] [facility] [address] [id number] [place] [address]- 6051 Nov, [facility] [place] [facility] [address] [id number] [place] [address]- 1126 Nov, [facility] [place] [facility] [address] [id number] [place] [address]- 1676 Nov, [facility] [place] [facility] [address] [id number] [place] [address]- 9551 Nov, [facility] [place] [facility] [address] [id number] [place] [address]- 0886 Nov, [facility] [place] [facility] [address] [id number] [place] [address]- 2946 Nov, [facility] [place] [facility] [address] [id number] [place] [address]- 2570 Nov, [facility] [place] [facility] [address] [id number] [place] [address]- 2866 Oct, [facility] [place] [facility] [address] [id number] [place] [address]- 6865 Oct, [facility] [place] [facility] [address] [id number] [place] [address]- 0392 Oct, [facility] [place] [facility] [address] [id number] [place] [address]- 2085 Oct, [facility] [place] [facility] [address] [id number], [place] [address]- 6809 Oct, [facility] [place] [facility] [address] [id number] [place] [address]- 3564 Oct, [facility] [place] [facility] [address] [id number] [place] [address]- 6047 Oct, [facility] [place] [facility] [address] [id number] [place] [address]- 3686 Oct, [facility] [place] [facility] [address] [id number] [place] [address]- 5848 13 Oct, 2013 [facility] [address] [id number] [place] [address]- 8544 Oct, [facility] [place] [facility] [address] [id number] [place] [address]- 3032 Oct, [facility] [address] [id number] [place] [address]- 7563 Aug, [facility] [place] [facility] [address] [id number] [place] [address]- 2352 Aug, [facility] [place] [facility] [address] [id number] [place] [address]- 4969 Jul, [facility] [place] [facility] [address] [id number] [place] [address]- 7539 Jul, [facility] [address] [id number] [place] [address]- 3291 Jul, [facility] [place] [facility] [address] [id number] [place] [address]- 3745 Jul, [facility] [place] [facility] [address] [id number] [place] [address]- 9468 Jun, [facility] [place] [facility] [address] [id number] [place] [address]- 7609 Jun, [facility] [place] [facility] [address] [id number] [place] [address]- 8135 Jan, [facility] [place] [facility] [address] [id number] [place] [address]- 0097 Oct, [facility] [place] [facility] [address] [id number] [place] [address]- 1102 Sep, [facility] [place] [facility] [address] [id number] [place] [address]- 5827 Sep, [facility] [place] [facility] [address] [id number] [place] [address]- 3647 Sep, [facility] [place] [facility] [address] [id number] [place] [address]- 4641 Sep, [facility] [place] [facility] [address] [id number] [place] [address]- 3284 Aug, [facility] [place] [facility] [address] [id number] [place] [address]- 2228 Aug, [facility] [place] [facility] [address] [id number] [place] [address]- 3882 Aug, [facility] [place] [facility] [address] [id number] [place] [address]- 3562 Aug, [facility] [place] [facility] [address] [id number] [place] [address]- 3716 Jul, [facility] [place] [facility] [address] [id number] [place] [address]- 3028 Jul, [facility] [place] [facility] [address] [id number] [place] [address]- 9752 Jul, [facility] [place] [facility] [address] [id number] [place] [address]- 5239 Jul, [facility] [place] [facility] [address] [id number] [place] [address]- 4514 Jul, [facility] [place] [facility] [address] [id number] [place] [address]- 1740 Jun, [facility] [place] [facility] [address] [id number] [place] [address]- 7720 Jun, [facility] [place] [facility] [address] [id number] [place] [address]- 1635 Jun, [facility] [place] [facility] [address] [id number] [place] [address]- 5066 May, [facility] [place] [facility] [address] [id number] [place] [address]- 0844 May, [facility] [place] [facility] [address] [id number] [place] [address]- 0016 Apr, [facility] [place] [facility] [address] [id number] [place] [address]- 1118 Apr, [facility] [place] [facility] [address] [id number] [place] [address]- 7336 Apr, [facility] [place] [facility] [address] [id number] [place] [address]- 7780 Apr, [facility] [place] [facility] [address] [id number] [place] [address]- 2220 Mar, [facility] [place] [facility] [address] [id number] [place] [address]- 5764 Mar, [facility] [place] [facility] [address] [id number] [place] [address] Mar, [facility] [place] [facility] [address] [id number] [place] [address] February, [facility] [place] [facility] [address] [id number] [place] [address] February, [facility] [place] [facility] [address] [id number] [place] [address] February, [facility] [place] [facility] [address] [id number] [place] [address] February, [facility] [place] [facility] [address] [id number] [place] [address] February, [facility] [place] [facility] [address] [id number] [place] [address] Jan, [facility] [place] [facility] [address] [id number] [place] [address] Jan, [facility] [place] [facility] [address] [id number] [place] [address] Jan, [facility] [place] [facility] [address] [id number] [place] [address] Dec, [facility] [place] [facility] [address] [id number] [place] [address] 30 Dec, 2011 [facility] [address] [id number] [place] [address] Dec, [facility] [place] [facility] [address] [id number] [place] [address] 29 Nov, 2011 [facility] [place] [facility] [address] [id number] [place] [address] 16 Nov, 2011 [facility] [place] [facility] [address] [id number] [place] [address] Nov, [facility] [place] [facility] [address] [id number] [place] [address] Nov, [facility] [place] [facility] [address] [facility] [id number] [place] [address] Oct, [facility] [place] [facility] [address] [facility] [id number] [place] [address] Oct, [facility] [place] [facility] [address] [id number] [place] [address] Sep, [facility] [place] [facility] [address] [facility] [id number] [place] [address] Sep, [facility] [place] [address] [facility] [id number] [place] [address] 14 Sep, 2011 [facility] [address] [facility] [id number] [place] [address] 05 Sep, 2011 [facility] [address] [id number] [place] [address] Aug, [facility] [address] [facility] [id number] [place] [address] 10 Aug, 2011 [facility] [facility] [address] [facility] [id number] [place] [address] 08 Aug, 2011 [facility] [place] [facility] [address] [facility] [id number] [place] [address] Jul, [facility] [place] [facility] [address] [id number] [place] [address] Jul, [facility] [place] [facility] [address] [id number] [place] [address] Jul, [facility] [place] [facility] [address] [id number] [place] [address] May, [facility] [address] [id number] [place] [address] February, [facility] [address] [id number] [place] [address] Nov, [facility] [place] [facility] [address] [id number] [place] [address] 14 Oct, 2010 [facility] [address] [id number] [place] [address] Oct, [facility] [address] [id number] [place] [address] 22 Sep, 2010 [facility] [address] [address] [id number] [place] [address] 17 Sep, 2010 [facility] [place] [facility] [address] [id number] [place] [address] 17 Sep, 2010 [facility] [place] [facility] [address] [id number] [place] [address] 16 Sep, 2010 [facility] [place] [facility] [address] [id number] [place] [address] 10 Sep, 2010 [facility] [place] [facility] [address] [id number] [place] [address] 10 Sep, 2010 [facility] [place] [facility] [address] [id number] [place] [address] 29 Aug, 2010 [facility] [place] [facility] [address] [id number] [place] [address] 23 Aug, 2010 [facility] [place] [facility] [address] [id number] [place] [address] 18 Aug, 2010 [facility] [place] [facility] [address] [id number] [place] [address] 17 Aug, 2010 [facility] [place] [facility] [address] [id number] [place] [address] 16 Aug, 2010 [facility] [place] [facility] [address] [id number] [place] [address] 25 Jul, 2010 [facility] [place] [facility] [address] [id number] [place] [address] 2547 16 Jun, 2010 [facility] [place] [facility] [address] [id number] [place] [address], [place] [address] February, [facility] [place] [facility] [address] [id number] [place] [address] Oct, [facility] [place] [facility] [address] [facility] [id number] [place] [address] Sep, [facility] [place] [facility] [address] [id number] [place] [address] 24 Aug, 2009 [facility] [place] [facility] [address] [id number] [place] [address] 2544 03 Aug, 2009 [facility] [place] [facility] [address] [facility] [id number], [place] [address] 02 Aug, 2009 [facility] [place] [facility] [address] [id number] [place] [address] 254 20 Jul, 2009 [facility] [place] [facility] [address] [id number], [place] [address] 15 Jul, 2009 [facility] [place] [facility] [address] [id number] [place] [address] 2542 15 Jul, 2009 [facility] [place] [facility] [address] [id number], [place] [address] 14 Jun, 2009 [facility] [place] [facility] [address] [id number], [place] [address] 10 Jun, 2009 [facility] [address] [facility] [id number] [place] [address] Mar, [facility] [address] [facility] [id number], [place] [address] Jan, [facility] [address] [facility] [id number], [place] [address] Aug, IMMUNIZATIONS No Known Immunizations SOCIAL HISTORY Never Assessed REASON FOR VISIT Controlled Med Refill 06/26 PLAN OF CARE VITAL SIGNS MEDICATIONS Medication Instructions Dosage Frequency Start Date End Date Duration Status Lyrica 100 mg Orally 4 times a day 1 capsule 6h Active RESULTS No Results PROCEDURES No Known procedures INSTRUCTIONS MEDICATIONS ADMINISTERED No Known Medications MEDICAL (GENERAL) HISTORY Type Description Date Medical History Unspecified local infection of skin and subcutaneous tissue Medical History Contusion of unspecified site Medical History Hx of cardiac infarction Medical History hyperlipidemia Medical History mitral valve prolapse Surgical History appendectomy Surgical History hysterectomy due to cancer Surgical History left foot surgery at 1yo Surgical History heart cath x 2 Hospitalization History surgeries Hospitalization History Denies any past psychiatric hospitalization
--- OUTSIDE RECORDS SUMMARY | 2018-11-13 11:42 | XMS REPORT ---
Author Author MARIMAR JONES Organization [facility] Address [address] [place] [address] Care Team Providers Care Hyperion Essbase Developer Name Role Phone MARIMAR JONES Unavailable PROBLEMS Type Condition ICD9-CM Code [id number] Code Onset Dates Condition Status SNOMED Code Problem Borderline personality disorder F60.3 Active 93947635 Problem Post-traumatic stress disorder, chronic F43.12 Active 77761778 Problem Carpal tunnel syndrome of right wrist G56.01 Active [id number] Problem PAD (peripheral artery disease) I73.9 Active 197181571 Problem Anxiety F41.9 Active 00592898 Problem Cannabis use disorder, mild, abuse F12.10 Active 54530178 Problem Bipolar affective, depress, mod F31.32 Active 196709294 Problem Fibromyalgia M79.7 Active 136652329 Problem Cervical radiculopathy M54.12 Active 31841776 Problem CAD (coronary artery disease) I25.10 Active 03486005 Problem Depression F32.9 Active 18315400 Problem Back pain M54.9 Active 007196591 Problem Tobacco abuse Z72.0 Active 81510259 Problem Hyperlipidemia E78.5 Active 49118705 ALLERGIES No Information ENCOUNTERS Encounter Location Date Diagnosis [facility] [id number] [address] Jul, [facility] [id number] [address] May, [facility] [id number] [place] [address] 53558- 0071 May, [facility] [id number] [place] [address] 03048- 4362 Apr, Post-traumatic stress disorder, chronic F43.12 ; Bipolar affective, depress, mod F31.32 ; Borderline personality disorder F60.3 and Cannabis use disorder, mild, abuse F12.10 [id number] [place] [address] 03327- 3798 Apr, Cervical radiculopathy M54.12 ; Back pain M54.9 ; Fibromyalgia M79.7 and High risk heterosexual behavior Z72.51 [address] [id number] [place] [address] 09044- 8373 Apr, [id number] [place] [address] 356290- 8804 Mar, Bipolar affective, depress, mod F31.32 ; Post-traumatic stress disorder, chronic F43.12 ; Borderline personality disorder F60.3 and Cannabis use disorder, mild, abuse F12.10 [id number] [place] [address] 56865- 9527 Mar, Tobacco abuse Z72.0 [id number] [place] [address] 71517- 1043 Mar, [address] [id number] [place] [address] 01284- 6580 February, Fibromyalgia M79.7 [id number] [place] [address] 050420- 1520 Jan, Post-traumatic stress disorder, chronic F43.12 ; Bipolar affective, depress, mod F31.32 ; Borderline personality disorder F60.3 and Cannabis use disorder, mild, abuse F12.10 [id number] [place] [address] 14834- 2529 Jan, [id number] [place] [address] 46675- 5150 Dec, Bipolar affective, depress, mod F31.32 ; Post-traumatic stress disorder, chronic F43.12 ; Borderline personality disorder F60.3 and Cannabis use disorder, mild, abuse F12.10 [address] [place] [address] 63191- 2119 20 Mar, 2018 Hoarseness R49.0 ; Bronchitis J40 ; PAD (peripheral artery disease) I73.9 and Tobacco abuse Z72.0 [address] [place] [address]72 Nov, Bipolar affective, depress, mod F31.32 ; Post-traumatic stress disorder, chronic F43.12 ; Borderline personality disorder F60.3 and Cannabis use disorder, mild, abuse F12.10 [address] 170352- 819 Oct, Post-traumatic stress disorder, chronic F43.12 ; Bipolar affective, depress, mod F31.32 ; Borderline personality disorder F60.3 and Cannabis use disorder, mild, abuse F12.10 [address] 23921- 083 Oct, Bipolar affective, depress, mod F31.32 ; Post-traumatic stress disorder, chronic F43.12 and Borderline personality disorder F60.3 [address] [id number]- [address]24 Sep, Anxiety F41.9 [address] [address] 170352- 3163 Aug, Bipolar affective, depress, mod F31.32 ; Post-traumatic stress disorder, chronic F43.12 and Borderline personality disorder F60.3 [address] [id number] [place] [address] 22798- 1533 Aug, Bipolar affective, depress, mod F31.32 ; Post-traumatic stress disorder, chronic F43.12 and Borderline personality disorder F60.3 [id number] [place] [address] 09988- 7353 Aug, Fibromyalgia M79.7 ; Back pain M54.9 and Cervical radiculopathy M54.12 [id number] [place] [address] 49216- 5050 Aug, Bipolar affective, depress, mod F31.32 and Post-traumatic stress disorder, chronic F43.12 [facility] [address] [place] [address] 45229- 0266 Jul, Depression F32.9 ; Borderline personality disorder F60.3 and Bipolar affective, depress, mod F31.32 [facility] [address] [place] [address] 46392- 9602 Jul, Post-traumatic stress disorder, chronic F43.12 ; Bipolar affective, depress, mod F31.32 ; Borderline personality disorder F60.3 and Cannabis use disorder, mild, abuse F12.10 [address] [place] [address] 72725- 6373 Jul, Other halfway (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.899 [address] [place] [id number] [place] [address] 30618- 7484 Jun, [id number] [place] [address] 677575- 9779 Jun, Depression F32.9 ; Borderline personality disorder F60.3 and Bipolar affective, depress, mod F31.32 [address] [id number] [place] [address] 25648- 9015 Jun, Depression F32.9 and Borderline personality disorder F60.3 [address] [id number] [place] [address] 73666- 8678 May, Post-traumatic stress disorder, chronic F43.12 [id number] [place] [address] 91960- 7261 May, Depression F32.9 and Borderline personality disorder F60.3 [address] [id number] [place] [address] 46943- 4344 Apr, Post-traumatic stress disorder, chronic F43.12 ; Bipolar affective, depress, mod F31.32 ; Borderline personality disorder F60.3 ; Other halfway (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.899 and Cannabis use disorder, mild, abuse F12.10 [address] [id number] [place] [address] 50159- 2495 Apr, Depression F32.9 and Borderline personality disorder F60.3 [facility] [id number] [place] [address] 78777- 5416 Apr, Depression F32.9 and Borderline personality disorder F60.3 [facility] [id number] [place] [address] 00946- 9096 Mar, Depression F32.9 and Borderline personality disorder F60.3 [facility] [id number] [place] [address] 27974- 6792 February, Depression F32.9 and Borderline personality disorder F60.3 [facility] [id number] [place] [address] 84472- 4109 February, Back pain M54.9 [facility] [id number] [place] [address] 99217- 4392 February, Depression F32.9 and Borderline personality disorder F60.3 [facility] [id number] [place] [address] 90722- 8546 February, Post-traumatic stress disorder, chronic F43.12 ; Borderline personality disorder F60.3 and Bipolar affective disorder, depressed, mild F31.31 [facility] [id number] [place] [address] 31236- 3669 February, [facility] [id number] [place] [address] 65387- 0848 February, Depression F32.9 and Borderline personality disorder F60.3 [facility] [id number] [place] [address] 58550- 9182 Jan, [facility] [id number] [place] [address] 52238- 6836 Jan, Depression F32.9 and Borderline personality disorder F60.3 [facility] [address] [place] [address] 83913- 2090 Jan, Acute lateral meniscus tear of right knee, initial encounter S83.281A [facility] [id number] [place] [address] 39676- 2089 Jan, Depression F32.9 and Borderline personality disorder F60.3 [facility] [id number] [place] [address] 59471- 4318 Dec, Depression F32.9 and Borderline personality disorder F60.3 [address] 97795- 2501 Dec, Depression F32.9 and Borderline personality disorder F60.3 [address] [id number] [place] [address] 99075- 5385 28 Nov, 2016 Hyperlipidemia E78.5 ; Knee locking, right M23.91 and Carpal tunnel syndrome of right wrist G56.01 [id number] [place] [address] 10202- 8750 23 Nov, 2016 Bipolar affective, depress, mod F31.32 ; Post-traumatic stress disorder, chronic F43.12 and Borderline personality disorder F60.3 [id number] [place] [address] 35892- 2331 16 Nov, 2016 Depression F32.9 and Borderline personality disorder F60.3 [address] [id number] [place] [address] 51183- 7189 Oct, Post-traumatic stress disorder, chronic F43.12 and 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 [id number] [place] [address] 67284- 2271 Oct, Nondisplaced fracture of distal end of right radius with routine healing, subsequent encounter S52.501D [address] [place] [id number] [place] [address] 95837- 8483 Sep, [facility] [id number] [place] [address] 08159- 7975 Aug, Right wrist fracture, closed, initial encounter S62.101A [facility] [address] [place] [address] 99738- 3212 Aug, [facility] [id number] [place] [address] 26843- 0926 Jul, Back pain M54.9 and Hyperlipidemia E78.5 [facility] [id number] [place] [address] 38978- 1006 Jul, Post-traumatic stress disorder, chronic F43.12 and 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 [facility] [id number] [place] [address] 79863- 5536 Apr, Bipolar affective, depress, mod F31.32 ; Post-traumatic stress disorder, chronic F43.12 and Other halfway (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.899 [facility] [id number] [place] [address] 07478- 8716 Mar, [facility] [id number] [place] [address] 26070- 2160 Jan, Post-traumatic stress disorder, chronic F43.12 and Depression F32.9 [facility] [id number] [place] [address] 13153- 8391 Dec, [facility] [id number] [place] [address] 85173- 5107 Nov, Shoulder pain, left M25.512 and Bronchitis J40 [facility] [id number] [place] [address] 34998- 5646 Sep, Hyperlipidemia E78.5 [facility] [id number] [place] [address] 83559- 7456 Sep, Hyperlipidemia E78.5 [facility] [id number] [place] [address] 93965 2546 Sep, [facility] [id number] [place] [address] 79187- 1189 Sep, Back pain M54.9 ; CAD (coronary artery disease) I25.10 and Depression F32.9 [facility] [address] 71359- 2461 Sep, URI (upper respiratory infection) J06.9 ; Nausea & vomiting R11.2 and Tobacco abuse Z72.0 [facility] [address] 47547- 5399 Mar, Posttraumatic stress disorder 309.81 ; Major depressive disorder, recurrent episode, in partial remission 296.35 ; Nightmares associated with chronic post-traumatic stress disorder 307.47 ; Thoracic or lumbosacral neuritis or radiculitis, unspecified 724.4 ; Borderline personality disorder 301.83 and High risk medication use V58.69 [facility] [address] 20405- 0739 14 Jan, 2015 [facility] [address] 71602- 4043 Jan, [facility] [address] 91913- 8991 Dec, [facility] [address] 18083- 9054 Dec, [facility] [id number] [place] [address] 95361- 0837 Sep, [facility] [address] 30945- 2083 Sep, [facility] [id number] [place] [address] 80973- 5946 Sep, [facility] [address] 43481- 5523 Sep, [facility] [id number] [place] [address] 35577- 8980 Sep, [facility] [address] 97299- 1001 Jul, [facility] [place] [facility] [address] [id number] [place] [address]- 3416 Jul, [facility] [place] [facility] [address] [id number] [place] [address]- 3101 Jul, [facility] [place] [facility] [address] [id number] [place] [address]- 8736 Jul, [facility] [place] [facility] [address] [id number] [place] [address]- 8337 Jul, [facility] [place] [facility] [address] [id number] [place] [address]- 6561 Jul, [facility] [place] [facility] [address] [id number] [place] [address]- 6322 Jul, [facility] [place] [facility] [address] [id number] [place] [address]- 3421 Jul, [facility] [place] [facility] [address] [id number] [place] [address]- 6179 May, [facility] [place] [facility] [address] [id number] [place] [address]- 1999 May, [facility] [place] [facility] [address] [id number] [place] [address]- 2475 May, [facility] [place] [facility] [address] [id number] [address]- 2316 May, [facility] [place] [facility] [address] [id number] [address]- 3018 May, [facility] [place] [facility] [address] [id number] [place] [address]- 9143 May, [facility] [place] [facility] [address] [id number] [place] [address]- 2377 Mar, [facility] [place] [facility] [address] [id number] [place] [address]- 4112 Mar, [facility] [place] [facility] [address] [id number] [place] [address]- 2618 February, [facility] [place] [facility] [address] [id number] [place] [address]- 2264 February, [facility] [place] [facility] [address] [id number] [place] [address]- 0528 February, [facility] [place] [facility] [address] [id number] [place] [address]- 9089 February, [facility] [place] [facility] [address] [id number] [place] [address]- 4806 February, [facility] [place] [facility] [address] [id number] [place] [address]- 6128 February, [facility] [place] [facility] [address] [id number] [place] [address]- 3014 February, [facility] [place] [facility] [address] [id number] [place] [address]- 2458 Jan, [facility] [place] [facility] [address] [id number] [place] [address]- 4117 Jan, [facility] [place] [facility] [address] [id number] [place] [address]- 5446 Jan, [facility] [place] [facility] [address] [id number] [place] [address]- 0748 Jan, [facility] [place] [facility] [address] [id number] [place] [address]- 9938 Dec, [facility] [place] [facility] [address] [id number] [place] [address]- 6343 Dec, [facility] [place] [facility] [address] [id number] [place] [address]- 5082 Dec, [facility] [place] [facility] [address] [id number] [place] [address]- 1369 Dec, [facility] [place] [facility] [address] [id number] [place] [address]- 1572 Nov, [facility] [place] [facility] [address] [id number] [place] [address]- 2273 Nov, [facility] [place] [facility] [address] [id number] [place] [address]- 8336 Nov, [facility] [place] [facility] [address] [id number] [place] [address]- 4563 Nov, [facility] [place] [facility] [address] [id number] [place] [address]- 8364 Nov, [facility] [place] [facility] [address] [id number] [place] [address]- 6461 Nov, [facility] [place] [facility] [address] [id number] [place] [address]- 9024 Nov, [facility] [place] [facility] [address] [id number] [place] [address]- 2326 Nov, [facility] [place] [facility] [address] [id number] [place] [address]- 1211 Oct, [facility] [place] [facility] [address] [id number] [place] [address]- 9692 Oct, [facility] [place] [facility] [address] [id number] [place] [address]- 9212 Oct, [facility] [place] [facility] [address] [id number] [place] [address]- 3927 Oct, [facility] [place] [facility] [address] [id number] [address]- 9205 Oct, [facility] [place] [facility] [address] [id number] [place] [address]- 7027 Oct, [facility] [place] [facility] [address] [id number] [place] [address]- 4209 Oct, [facility] [place] [facility] [address] [id number] [place] [address]- 9683 Oct, [facility] [place] [facility] [address] [id number] [place] [address]- 0103 13 Oct, 2013 [facility] [address] [id number] [place] [address]- 8518 Oct, [facility] [place] [facility] [address] [id number] [place] [address]- 1529 Oct, [facility] [address] [id number] [place] [address]- 1803 Aug, [facility] [place] [facility] [address] [id number] [place] [address]- 5512 Aug, [facility] [place] [facility] [address] [id number] [place] [address]- 3268 Jul, [facility] [place] [facility] [address] [id number] [place] [address]- 9534 Jul, [facility] [address] [id number] [place] [address]- 8515 Jul, [facility] [place] [facility] [address] [id number] [place] [address]- 8212 Jul, [facility] [place] [facility] [address] [id number] [place] [address]- 4231 Jun, [facility] [place] [facility] [address] [id number] [place] [address]- 7011 Jun, [facility] [place] [facility] [address] [id number] [place] [address]- 8588 Jan, [facility] [place] [facility] [address] [id number] [place] [address]- 9556 Oct, [facility] [place] [facility] [address] [id number] [place] [address]- 5918 Sep, [facility] [place] [facility] [address] [id number] [place] [address]- 1570 Sep, [facility] [place] [facility] [address] [id number] [place] [address]- 4045 Sep, [facility] [place] [facility] [address] [id number] [place] [address]- 8714 Sep, [facility] [place] [facility] [address] [id number] [place] [address]- 6360 Aug, [facility] [place] [facility] [address] [id number] [place] [address]- 2297 Aug, [facility] [place] [facility] [address] [id number] [place] [address]- 4787 Aug, [facility] [place] [facility] [address] [id number] [place] [address]- 8638 Aug, [facility] [place] [facility] [address] [id number] [place] [address]- 2065 Jul, [facility] [place] [facility] [address] [id number] [place] [address]- 2468 Jul, [facility] [place] [facility] [address] [id number] [place] [address]- 1346 Jul, [facility] [place] [facility] [address] [id number] [place] [address]- 8751 Jul, [facility] [place] [facility] [address] [id number] [place] [address]- 7816 Jul, [facility] [place] [facility] [address] [id number] [place] [address]- 3668 Jun, [facility] [place] [facility] [address] [id number] [place] [address]- 1811 Jun, [facility] [place] [facility] [address] [id number] [place] [address]- 2838 Jun, [facility] [place] [facility] [address] [id number] [place] [address]- 6990 May, [facility] [place] [facility] [address] [id number] [place] [address]- 1828 May, [facility] [place] [facility] [address] [id number] [place] [address]- 2166 Apr, [facility] [place] [facility] [address] [id number] [place] [address]- 2515 Apr, [facility] [place] [facility] [address] [id number] [place] [address]- 3836 Apr, [facility] [place] [facility] [address] [id number] [place] [address] Apr, [facility] [place] [facility] [address] [id number] [place] [address] Mar, [facility] [place] [facility] [address] [id number] [place] [address] Mar, [facility] [place] [facility] [address] [id number] [place] [address] Mar, [facility] [place] [facility] [address] [id number] [place] [address] February, [facility] [place] [facility] [address] [id number] [place] [address] February, [facility] [place] [facility] [address] [id number] [place] [address] February, [facility] [place] [facility] [address] [id number] [place] [address] February, [facility] [place] [facility] [address] [id number] [place] [address] February, [facility] [place] [facility] [address] [id number] [place] [address] Jan, [facility] [place] [facility] [address] [id number] [place] [address] Jan, [facility] [place] [facility] [address] [id number] [place] [address] Jan, [facility] [place] [facility] [address] [id number] [place] [address] Dec, [facility] [place] [facility] [address] [id number] [place] [address] 30 Dec, 2011 [facility] [address] [id number] [place] [address] Dec, [facility] [place] [facility] [address] [id number] [place] [address] 29 Nov, 2011 [facility] [place] [facility] [address] [id number] [place] [address] 16 Nov, 2011 [facility] [place] [facility] [address] [id number] [place] [address] 25[address] Nov, [facility] [place] [facility] [address] [id number] [place] [address] Nov, [facility] [place] [facility] [address] [facility] [id number] [place] [address] Oct, [facility] [place] [facility] [address] [facility] [id number] [place] [address] Oct, [facility] [place] [facility] [address] [id number] [place] [address] Sep, [facility] [place] [facility] [address] [facility] [id number] [place] [address] Sep, [facility] [place] [facility] [address] [facility] [id number] [place] [address] 14 Sep, 2011 [facility] [place] [facility] [address] [facility] [id number] [place] [address] 05 Sep, 2011 [facility] [place] [facility] [address] [id number] [place] [address] Aug, [facility] [place] [facility] [address] [facility] [id number] [place] [address] 10 Aug, 2011 [facility] [place] [facility] [address] [facility] [id number] [place] [address] 08 Aug, 2011 [facility] [place] [facility] [address] [facility] [id number] [place] [address] Jul, [facility] [place] [facility] [address] [id number] [place] [address] Jul, [facility] [place] [facility] [address] [id number] [place] [address] Jul, [facility] [place] [facility] [address] [id number] [place] [address] May, [facility] [place] [facility] [address] [id number] [place] [address] February, [facility] [place] [facility] [address] [id number] [place] [address] Nov, [facility] [place] [facility] [address] [id number] [place] [address] 14 Oct, 2010 [facility] [facility] [address] [id number] [place] [address] Oct, [facility] [place] [facility] [address] [id number] [place] [address] 22 Sep, 2010 [facility] [place] [facility] [address] [id number] [place] [address] 17 Sep, 2010 [facility] [place] [facility] [address] [id number] [place] [address] 17 Sep, 2010 [facility] [place] [facility] [address] [id number] [place] [address] 16 Sep, 2010 [facility] [place] [facility] [address] [id number] [place] [address] 10 Sep, 2010 [facility] [place] [facility] [address] [id number] [place] [address] 10 Sep, 2010 [facility] [place] [facility] [address] [id number] [place] [address] 29 Aug, 2010 [facility] [place] [facility] [address] [id number] [place] [address] 23 Aug, 2010 [facility] [place] [facility] [address] [id number] [place] [address] 18 Aug, 2010 [facility] [place] [facility] [address] [id number] [place] [address] 17 Aug, 2010 [facility] [place] [facility] [address] [id number] [place] [address] 16 Aug, 2010 [facility] [place] [facility] [address] [id number] [place] [address] 25 Jul, 2010 [facility] [place] [facility] [address] [id number] [place] [address] 2545 16 Jun, 2010 [facility] [place] [facility] [id number] [place] [address], [place] [address] February, [facility] [facility] [address] [id number] [place] [address] Oct, [facility] [place] [facility] [address] [facility] [id number] [place] [address] Sep, [facility] [place] [facility] [address] [id number] [place] [address] 24 Aug, 2009 [facility] [place] [facility] [address] [id number] [place] [address] 03 Aug, 2009 [facility] [place] [facility] [address] [facility] [id number] [address] 02 Aug, 2009 [facility] [address] [id number] [place] [address] 2541 20 Jul, 2009 [facility] [place] [facility] [address] [id number] [place] [address] 15 Jul, 2009 [facility] [place] [facility] [address] [id number] [place] [address] 2547 15 Jul, 2009 [facility] [place] [facility] [address] [id number] [place] [address] 14 Jun, 2009 [facility] [address] [id number] [place] [address] 10 Jun, 2009 [facility] [address] [facility] [id number] [place] [address] Mar, [facility] [address] [facility] [id number] [place] [address] Jan, [facility] [address] [facility] [id number] [place] [address] Aug, IMMUNIZATIONS No Known Immunizations SOCIAL HISTORY Never Assessed REASON FOR VISIT Controlled Med Refill PLAN OF CARE VITAL SIGNS MEDICATIONS Medication [...]
--- OUTSIDE RECORDS SUMMARY | 2018-11-13 11:43 | XMS REPORT ---
Author Author ELIECER ROMAN [facility] Address [address] [place] [address] Care Team Providers Care Advertising Copy Writer Name Role Phone ELIECER ROMAN Unavailable PROBLEMS Type Condition ICD9-CM Code PSE85-FS Code Onset Dates Condition Status SNOMED Code Problem Borderline personality disorder F60.3 Active 29597809 Problem Post-traumatic stress disorder, chronic F43.12 Active 01363606 Problem Carpal tunnel syndrome of right wrist G56.01 Active 255746611048759 Problem PAD (peripheral artery disease) I73.9 Active 045192879 Problem Anxiety F41.9 Active 93327769 Problem Cannabis use disorder, mild, abuse F12.10 Active 90834443 Problem Bipolar affective, depress, mod F31.32 Active 111329952 Problem Fibromyalgia M79.7 Active 750989934 Problem Cervical radiculopathy M54.12 Active 79535818 Problem CAD (coronary artery disease) I25.10 Active 77593670 Problem Depression F32.9 Active 38940122 Problem Back pain M54.9 Active 690804151 Problem Tobacco abuse Z72.0 Active 94169307 Problem Hyperlipidemia E78.5 Active 79887979 ALLERGIES Substance Reaction Event Type Date Status Aspir-81 nausea Drug Allergy Apr, Active IV Dye nausea Non Drug Allergy Apr, Active ENCOUNTERS Encounter Location Date Diagnosis [facility] [address] [facility] [id number] [address] Jul, [facility] [address] [id number] [address] May, [facility] [address] [id number] [address] 7532 May, [facility] [address] [facility] [id number] [place] [address] Apr, Post-traumatic stress disorder, chronic F43.12 ; Bipolar affective, depress, mod F31.32 ; Borderline personality disorder F60.3 and Cannabis use disorder, mild, abuse F12.10 [place] [id number] [place] [address] 69387- 2139 Apr, Cervical radiculopathy M54.12 ; Back pain M54.9 ; Fibromyalgia M79.7 and High risk heterosexual behavior Z72.51 [place] [address] [address]- 7726 Apr, [place] [address] 18487- 8214 Mar, Bipolar affective, depress, mod F31.32 ; Post-traumatic stress disorder, chronic F43.12 ; Borderline personality disorder F60.3 and Cannabis use disorder, mild, abuse F12.10 [place] [id number] [place] [address] 08905- 5971 Mar, Tobacco abuse Z72.0 [place] [id number] [place] [address] 39349- 1835 Mar, [place] [address] 62139- 2368 February, Fibromyalgia M79.7 [place] [id number] [place] [address] 14966- 8208 Jan, Post-traumatic stress disorder, chronic F43.12 ; Bipolar affective, depress, mod F31.32 ; Borderline personality disorder F60.3 and Cannabis use disorder, mild, abuse F12.10 [place] [id number] [place] [address] 63319- 2989 Jan, [place] [id number] [place] [address] [address] Dec, Bipolar affective, depress, mod F31.32 ; Post-traumatic stress disorder, chronic F43.12 ; Borderline personality disorder F60.3 and Cannabis use disorder, mild, abuse F12.10 [place] [id number] [place] [address] 18299- 0501 Dec, Hoarseness R49.0 ; Bronchitis J40 ; PAD (peripheral artery disease) I73.9 and Tobacco abuse Z72.0 [place] [id number] [place] [address] 27223- 9122 15 Nov, 2017 Bipolar affective, depress, mod F31.32 ; Post-traumatic stress disorder, chronic F43.12 ; Borderline personality disorder F60.3 and Cannabis use disorder, mild, abuse F12.10 [place] [id number] [place] [address] 33935- 9819 Oct, Post-traumatic stress disorder, chronic F43.12 ; Bipolar affective, depress, mod F31.32 ; Borderline personality disorder F60.3 and Cannabis use disorder, mild, abuse F12.10 [place] [id number] [place] [address] 78357- 5027 Oct, Bipolar affective, depress, mod F31.32 ; Post-traumatic stress disorder, chronic F43.12 and Borderline personality disorder F60.3 [place] [id number] [place] [address] 29514- 1257 Sep, Anxiety F41.9 [place] [id number] [place] [address] 62993- 5812 Aug, Bipolar affective, depress, mod F31.32 ; Post-traumatic stress disorder, chronic F43.12 and Borderline personality disorder F60.3 [place] [id number] [place] [address] 03406- 5908 Aug, Bipolar affective, depress, mod F31.32 ; Post-traumatic stress disorder, chronic F43.12 and Borderline personality disorder F60.3 [place] [id number] [place] [address] 33969- 5721 Aug, Fibromyalgia M79.7 ; Back pain M54.9 and Cervical radiculopathy M54.[address] [address]20- 5936 Aug, Bipolar affective, depress, mod F31.32 and Post-traumatic stress disorder, chronic F43.12 [place] [id number] [place] [address] 14168- 7586 Jul, Depression F32.9 ; Borderline personality disorder F60.3 and Bipolar affective, depress, mod F31.32 [place] [id number] [place] [address] 752949- 8629 Jul, Post-traumatic stress disorder, chronic F43.12 ; Bipolar affective, depress, mod F31.32 ; Borderline personality disorder F60.3 and Cannabis use disorder, mild, abuse F12.10 [place] [id number] [place] [address] 52936- 5102 Jul, Other meterman (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.899 [place] [id number] [place] [address] 67758- 6706 Jun, [place] [id number] [place] [address] 37697- 6032 Jun, Depression F32.9 ; Borderline personality disorder F60.3 and Bipolar affective, depress, mod F31.32 [place] [id number] [place] [address] 88664- 6546 Jun, Depression F32.9 and Borderline personality disorder F60.3 [place] [id number] [place] [address] 92007- 2732 May, Post-traumatic stress disorder, chronic F43.12 [place] [id number] [place] [address] 95716- 1680 May, Depression F32.9 and Borderline personality disorder F60.3 [place] [address] [place] [address] Apr, Post-traumatic stress disorder, chronic F43.12 ; Bipolar affective, depress, mod F31.32 ; Borderline personality disorder F60.3 ; Other senior living (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.899 and Cannabis use disorder, mild, abuse F12.10 [facility] [id number] [place] [address] 08478- 6987 Apr, Depression F32.9 and Borderline personality disorder F60.3 [facility] [id number] [place] [address] 30215- 2948 Apr, Depression F32.9 and Borderline personality disorder F60.3 [facility] [id number] [place] [address] 62768- 6001 Mar, Depression F32.9 and Borderline personality disorder F60.3 [place] [address] 42242- 2617 February, Depression F32.9 and Borderline personality disorder F60.3 [place] [id number] [place] [address] 09538- 1604 February, Back pain M54.9 [facility] [id number] [place] [address] 86205- 6423 February, Depression F32.9 and Borderline personality disorder F60.3 [place] [id number] [place] [address] 84024- 7427 February, Post-traumatic stress disorder, chronic F43.12 ; Borderline personality disorder F60.3 and Bipolar affective disorder, depressed, mild F31.31 [place] [id number] [place] [address] 63351- 9726 February, [place] [id number] [place] [address] 05286- 1595 February, Depression F32.9 and Borderline personality disorder F60.3 [place] [id number] [place] [address] 17348- 1706 Jan, [place] [id number] [place] [address] 04181- 3632 Jan, Depression F32.9 and Borderline personality disorder F60.3 [place] [address] [place] [address] 74524- 9546 Jan, Acute lateral meniscus tear of right knee, initial encounter S83.281A [place] [id number] [place] [address] 42333- 3757 Jan, Depression F32.9 and Borderline personality disorder F60.3 [place] [address] 06294- 1077 Dec, Depression F32.9 and Borderline personality disorder F60.3 [place] [id number] [place] [address] 92921- 8046 Dec, Depression F32.9 and Borderline personality disorder F60.3 [place] [id number] [place] [address] 09551- 4757 28 Nov, 2016 Hyperlipidemia E78.5 ; Knee locking, right M23.91 and Carpal tunnel syndrome of right wrist G56.01 [place] [id number] [place] [address] 41306- 7705 Nov, Bipolar affective, depress, mod F31.32 ; Post-traumatic stress disorder, chronic F43.12 and Borderline personality disorder F60.3 [place] [address] [place] [address] 68346- 6452 16 Nov, 2016 Depression F32.9 and Borderline personality disorder F60.3 [place] [id number] [place] [address] 21790- 3986 Oct, Post-traumatic stress disorder, chronic F43.12 and Other meterman (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.899 [place] [id number] [place] [address] 82473- 5556 Oct, Nondisplaced fracture of distal end of right radius with routine healing, subsequent encounter S52.501D [place] [id number] [place] [address] 37516- 1730 Sep, [place] [id number] [address]- 9703 Aug, Right wrist fracture, closed, initial encounter S62.101A [facility] [address] 78964- 2538 Aug, [facility] [address] 72407- 0280 Jul, Back pain M54.9 and Hyperlipidemia E78.5 [facility] [address] 52385- 8895 Jul, Post-traumatic stress disorder, chronic F43.12 and Other meterman (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.899 [place] [address] 35351- 0952 Apr, Bipolar affective, depress, mod F31.32 ; Post-traumatic stress disorder, chronic F43.12 and Other senior living (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.899 [place] [address] 03901- 3764 Mar, [facility] [address] 31691- 5211 Jan, Post-traumatic stress disorder, chronic F43.12 and Depression F32.9 [facility] [id number] [place] [address] 25329- 9694 Dec, [facility] [address] 50675- 7306 Nov, Shoulder pain, left M25.512 and Bronchitis J40 [facility] [id number] [place] [address] 51841- 3911 Sep, Hyperlipidemia E78.5 [facility] [address] 02950- 8767 Sep, Hyperlipidemia E78.5 [facility] [id number] [place] [address] 02518- 6426 Sep, [facility] [id number] [place] [address] 47032- 4498 15 Sep, 2015 Back pain M54.9 ; CAD (coronary artery disease) I25.10 and Depression F32.9 [facility] [id number] [place] [address] 89022- 6782 11 Sep, 2015 URI (upper respiratory infection) J06.9 ; Nausea & vomiting R11.2 and Tobacco abuse Z72.0 [facility] [address] 80112- 4706 03 Mar, 2015 Posttraumatic stress disorder 309.81 ; Major depressive disorder, recurrent episode, in partial remission 296.35 ; Nightmares associated with chronic post-traumatic stress disorder 307.47 ; Thoracic or lumbosacral neuritis or radiculitis, unspecified 724.4 ; Borderline personality disorder 301.83 and High risk medication use V58.69 [facility] [address] 86164- 9236 Jan, [facility] [address] 06264- 5648 Jan, [facility] [address] 87786- 9553 Dec, [facility] [id number] [place] [address] 68080- 9342 Dec, [facility] [id number] [place] [address] 21483- 1084 Sep, [facility] [id number] [place] [address] 50987- 3119 Sep, [facility] [address] 53639- 4007 Sep, [facility] [id number] [place] [address] 04260- 8649 Sep, [facility] [address] 52560- 8129 Sep, [facility] [place] [facility] [address] [id number] [place] [address]- 4611 Jul, [facility] [place] [facility] [address] [id number] [place] [address]- 9061 Jul, [facility] [place] [facility] [address] [id number] [place] [address]- 9589 Jul, [facility] [place] [facility] [address] [id number] [place] [address]- 7989 Jul, [facility] [place] [facility] [address] [id number] [place] [address]- 4554 Jul, [facility] [place] [facility] [address] [id number] [place] [address]- 5169 Jul, [facility] [place] [facility] [address] [id number] [place] [address]- 9262 Jul, [facility] [place] [facility] [address] [id number] [place] [address]- 7924 Jul, [facility] [place] [facility] [address] [id number] [place] [address]- 6298 May, [facility] [place] [facility] [address] [id number] [place] [address]- 5125 May, [facility] [place] [facility] [address] [id number] [address]- 3440 May, [facility] [place] [facility] [address] [id number] [place] [address]- 4859 May, [facility] [place] [facility] [address] [id number] [place] [address]- 4682 May, [facility] [place] [facility] [address] [id number] [place] [address]- 3211 May, [facility] [place] [facility] [address] [id number] [place] [address]- 7763 Mar, [facility] [place] [facility] [address] [id number] [place] [address]- 2616 Mar, [facility] [address] [id number] [place] [address]- 2047 February, [facility] [place] [facility] [address] [id number] [place] [address]- 4215 February, [facility] [place] [facility] [address] [id number] [place] [address]- 9218 February, [facility] [place] [facility] [address] [id number] [place] [address]- 9511 February, [facility] [place] [facility] [address] [id number] [place] [address]- 9739 February, [facility] [place] [facility] [address] [id number] [place] [address]- 7502 February, [facility] [place] [facility] [address] [id number] [place] [address]- 1190 February, [facility] [place] [facility] [address] [id number] [place] [address]- 1526 Jan, [facility] [place] [facility] [address] [id number] [place] [address]- 5192 Jan, [facility] [place] [facility] [address] [id number] [place] [address]- 0777 Jan, [facility] [place] [facility] [address] [id number] [place] [address]- 3047 Jan, [facility] [place] [facility] [address] [id number] [place] [address]- 1258 Dec, [facility] [place] [facility] [address] [id number] [place] [address]- 3806 Dec, [facility] [place] [facility] [address] [id number] [place] [address]- 9063 Dec, [facility] [place] [facility] [address] [id number] [place] [address]- 7007 Dec, [facility] [place] [facility] [address] [id number] [place] [address]- 6379 Nov, [facility] [place] [facility] [address] [id number] [place] [address]- 9956 Nov, [facility] [place] [facility] [address] [id number] [place] [address]- 9778 Nov, [facility] [place] [facility] [address] [id number] [place] [address]- 3126 Nov, [facility] [place] [facility] [address] [id number] [place] [address]- 7996 Nov, [facility] [place] [facility] [address] [id number] [place] [address]- 7644 Nov, [facility] [place] [facility] [address] [facility] [id number] [place] [address]- 4489 Nov, [facility] [place] [facility] [address] [id number] [place] [address]- 1987 Nov, [facility] [place] [facility] [address] [id number] [place] [address]- 1956 Oct, [facility] [place] [facility] [address] [id number] [place] [address]- 3526 Oct, [facility] [place] [facility] [address] [id number] [place] [address]- 7332 Oct, [facility] [place] [facility] [address] [id number] [place] [address]- 4432 Oct, [facility] [place] [facility] [address] [id number] [place] [address]- 1462 Oct, [facility] [place] [facility] [address] [id number] [place] [address]- 2695 Oct, [facility] [place] [facility] [address] [id number] [place] [address]- 0468 Oct, [facility] [place] [facility] [address] [id number] [place] [address]- 1630 Oct, [facility] [address] [id number] [place] [address]- 3732 Oct, [facility] [place] [facility] [address] [facility] [id number] [place] [address]- 5876 Oct, [facility] [place] [facility] [address] [facility] [id number] [place] [address]- 1846 Oct, [facility] [place] [facility] [address] [id number] [place] [address]- 1265 Aug, [facility] [place] [facility] [address] [facility] [id number] [place] [address], [place] [address]- 2747 Aug, [facility] [place] [facility] [address] [facility] [id number] [place] [address]- 1644 Jul, [facility] [address] [address]- 5245 Jul, [facility] [place] [facility] [address] [facility] [id number] [place] [address]- 6472 Jul, [facility] [id number] [place] [address]- 7412 Jul, [facility] [place] [facility] [address] [id number] [place] [address]- 8168 Jun, [facility] [place] [facility] [address] [facility] [id number] [place] [address]- 9858 Jun, [facility] [place] [facility] [address] [facility] [id number] [place] [address]- 5682 Jan, [facility] [place] [facility] [address] [id number] [place] [address]- 6317 Oct, [facility] [place] [facility] [address] [facility] [id number] [place] [address]- 8937 Sep, [facility] [place] [facility] [address] [facility] [id number] [place] [address]- 0630 Sep, [facility] [place] [facility] [address] [id number] [place] [address]- 4852 07 Sep, 2012 [facility] [place] [facility] [address] [id number] [place] [address]- 1716 Sep, [facility] [place] [facility] [address] [id number] [place] [address]- 5116 Aug, [facility] [place] [facility] [address] [id number] [place] [address]- 4321 Aug, [facility] [place] [facility] [address] [id number] [place] [address]- 2870 Aug, [facility] [place] [facility] [address] [id number] [place] [address]- 3675 Aug, [facility] [place] [facility] [address] [id number] [place] [address]- 2783 Jul, [facility] [place] [facility] [address] [id number] [place] [address]- 5355 Jul, [facility] [place] [facility] [address] [id number] [place] [address]- 9785 Jul, [facility] [place] [facility] [address] [id number] [place] [address]- 4587 Jul, [facility] [place] [facility] [address] [id number] [place] [address]- 6089 Jul, [facility] [place] [facility] [address] [id number] [place] [address]- 4994 Jun, [facility] [place] [facility] [address] [id number] [place] [address]- 9793 Jun, [facility] [place] [facility] [address] [id number] [place] [address]- 3206 Jun, [facility] [place] [facility] [address] [id number] [place] [address]- 4075 May, [facility] [place] [facility] [address] [id number] [place] [address]- 4291 May, [facility] [place] [facility] [address] [id number] [place] [address]- 1254 Apr, [facility] [place] [facility] [address] [id number] [place] [address]- 2817 Apr, [facility] [place] [facility] [address] [id number] [place] [address]- 8309 Apr, [facility] [place] [facility] [address] [id number] [place] [address]- 9309 Apr, [facility] [place] [facility] [address] [id number] [place] [address] Mar, [facility] [place] [facility] [address] [id number] [place] [address] Mar, [facility] [place] [facility] [address] [id number] [place] [address] Mar, [facility] [place] [facility] [address] [id number] [place] [address] 2008 February, [facility] [place] [facility] [address] [id number] [place] [address] February, [facility] [place] [facility] [address] [id number] [place] [address] February, [facility] [place] [facility] [address] [id number] [place] [address] February, [facility] [place] [facility] [address] [id number] [place] [address] February, [facility] [place] [facility] [address] [id number] [place] [address] Jan, [facility] [place] [facility] [address] [id number] [place] [address] Jan, [facility] [place] [facility] [address] [id number] [place] [address] Jan, [facility] [place] [facility] [address] [id number] [place] [address] 30 Dec, 2011 [facility] [address] [id number] [place] [address] 30 Dec, 2011 [facility] [place] [facility] [address] [id number] [place] [address] 26 Dec, 2011 [facility] [address] [id number] [place] [address] 29 Nov, 2011 [facility] [place] [facility] [address] [id number] [place] [address] 16 Nov, 2011 [facility] [place] [facility] [address] [id number] [place] [address] 07 Nov, 2011 [facility] [place] [facility] [address] [id number] [place] [address] 06 Nov, 2011 [facility] [address] [id number] [place] [address] Oct, [facility] [address] [id number] [place] [address] Oct, [facility] [place] [facility] [address] [facility] [id number] [place] [address] 30 Sep, 2011 [facility] [address] [id number] [place] [address] 30 Sep, 2011 [facility] [place] [facility] [address] [id number] [place] [address] 14 Sep, 2011 [facility] [place] [facility] [address] [id number] [place] [address] 05 Sep, 2011 [facility] [place] [facility] [address] [id number] [place] [address] 28 Aug, 2011 [facility] [place] [facility] [address] [id number] [place] [address] 10 Aug, 2011 [facility] [place] [facility] [address] [facility] [id number] [place] [address] Aug, [facility] [place] [facility] [address] [id number] [place] [address] Jul, [facility] [place] [facility] [address] [id number] [place] [address] Jul, [facility] [place] [facility] [address] [id number] [place] [address] Jul, [facility] [place] [facility] [address] [id number] [place] [address] May, [facility] [place] [facility] [address] [id number] [place] [address] February, [facility] [place] [facility] [address] [id number] [place] [address] Nov, [facility] [place] [facility] [address] [id number] [place] [address] Oct, [facility] [place] [facility] [address] [id number] [place] [address] Oct, [facility] [place] [facility] [address] [id number] [place] [address] Sep, [facility] [place] [facility] [address] [id number] [place] [address] 17 Sep, 2010 [facility] [place] [facility] [address] [id number] [place] [address] 17 Sep, 2010 [facility] [place] [facility] [address] [id number] [place] [address] 16 Sep, 2010 [facility] [place] [facility] [address] [id number] [place] [address] 10 Sep, 2010 [facility] [place] [facility] [address] [id number] [place] 10 Sep, 2010 [facility] [place] [facility] [address] [id number] [place] [address] 29 Aug, 2010 [facility] [place] [facility] [address] [id number] [address] 23 Aug, 2010 [facility] [place] [facility] [address] [id number] [place] [address] 18 Aug, 2010 [facility] [place] [facility] [address] [id number] [address] 17 Aug, 2010 [facility] [place] [facility] [address] [id number] [place] [address] 16 Aug, 2010 [facility] [place] [facility] [address] [id number] [address] 25 Jul, 2010 [facility] [place] [facility] [address] [id number] [place] [address], [place] [address] 16 Jun, 2010 [facility] [place] [facility] [address] [id number] [place] [address] February, [facility] [address] [id number] [place] [address] Oct, [facility] [place] [facility] [address] [id number] [place] [address] Sep, [facility] [place] [facility] [address] [id number] [place] [address] 24 Aug, 2009 [facility] [place] [facility] [address] [facility] [id number] [place] [address] 03 Aug, 2009 [facility] [place] [facility] [address] [id number] [place] [address] 02 Aug, 2009 [facility] [place] [facility] [address] [id number] [place] [address] 20 Jul, 2009 [facility] [place] [facility] [address] [id number] [place] [address] 15 Jul, 2009 [facility] [place] [facility] [address] [id number] [place] [address] 15 Jul, 2009 [facility] [place] [facility] [address] [id number] [place] [address] 14 Jun, 2009 [facility] [place] [facility] [address] [facility] [id number] [place] [address] Jun, [facility] [address] [facility] [id number] [place] [address] Mar, [facility] [address] [facility] [id number] [place] [address] Jan, [facility] [address] [facility] [id number] [place] [address] Aug, IMMUNIZATIONS No Known Immunizations SOCIAL HISTORY Never Assessed REASON FOR VISIT [email or web address] Walsh MA PLAN OF CARE Activity Details Follow Up 3 Months Reason: Follow-up VITAL SIGNS Height 67 in 2018-05-13 Weight 166.3 lbs 2018-05-13 Heart Rate 93 bpm 2018-05-13 Respiratory Rate 20 2018-05-13 Oximetry 97 % 2018-05-13 BMI 26.04 kg/m2 2018-05-13 Blood pressure systolic 122 mmHg 2018-05-13 Blood pressure diastolic 68 mmHg 2018-05-13 MEDICATIONS Medication Instructions Dosage Frequency Start Date End Date Duration Status Lyrica 100 mg Orally 4 times a day 1 capsule 6h Active Ibuprofen 800 MG Orally Three times a day 1 tablet 8h Aug, Active Pravastatin Sodium 40 MG TAKE ONE TABLET BY MOUTH ONCE DAILY (MUST HAVE APPOINTMENT WITH FASTING LIPIDS FOR FURTHER REFILLS) 30 Active QUEtiapine Fumarate ER 200 MG TAKE ONE TABLET BY MOUTH ONCE DAILY IN THE EVENING Active Nitrostat 0.4 MG Sublingual 2 5 min prn 1 Active QUEtiapine Fumarate ER 300 MG TAKE ONE TABLET BY MOUTH ONCE DAILY IN THE EVENING Active Pristiq 100 MG TAKE ONE TABLET BY MOUTH ONCE DAILY Active Promethazine HCl 25 MG Orally 3 times a day for nausea 1 tablet as needed Jan, Active Chantix Starting Month Fred 0.5 MG X 11 & 1 MG X 42 as directed Jan, Not-Taking Pravastatin Sodium 80 MG Orally Once a day 1 tablet 24h 30 days Not- Taking RESULTS No Results PROCEDURES No Known procedures [...]
--- OUTSIDE RECORDS SUMMARY | 2018-11-13 11:43 | XMS REPORT ---
Author Author MARIMAR JONES Organization [facility] Address [address] [place] [address] Care Team Providers Care Permaculture Designer Name Role Phone MARIMAR JONES Unavailable PROBLEMS Type Condition ICD9-CM Code OVB27-YC Code Onset Dates Condition Status SNOMED Code Problem Borderline personality disorder F60.3 Active 63143435 Problem Post-traumatic stress disorder, chronic F43.12 Active 69440491 Problem Carpal tunnel syndrome of right wrist G56.01 Active [id number] Problem PAD (peripheral artery disease) I73.9 Active 230158627 Problem Anxiety F41.9 Active 00035778 Problem Cannabis use disorder, mild, abuse F12.10 Active 42261661 Problem Bipolar affective, depress, mod F31.32 Active 769486141 Problem Fibromyalgia M79.7 Active 215548176 Problem Cervical radiculopathy M54.12 Active 78086921 Problem CAD (coronary artery disease) I25.10 Active 30087784 Problem Depression F32.9 Active 10030850 Problem Back pain M54.9 Active 648235369 Problem Tobacco abuse Z72.0 Active 92323195 Problem Hyperlipidemia E78.5 Active 53311099 ALLERGIES Substance Reaction Event Type Date Status Aspir-81 nausea Drug Allergy Apr, Active IV Dye nausea Non Drug Allergy Apr, Active ENCOUNTERS Encounter Location Date Diagnosis [facility] [address] [facility]NOTE [facility] [id number] [address] Jul, [facility] [address] [facility]NOTE [facility] [id number], [place] [address] May, [facility] [address] [id number] [address] May, [facility] [address] [id number] [address] Apr, Post-traumatic stress disorder, chronic F43.12 ; Bipolar affective, depress, mod F31.32 ; Borderline personality disorder F60.3 and Cannabis use disorder, mild, abuse F12.10 [place] [id number] [place] [address] 73855- 0127 Apr, Cervical radiculopathy M54.12 ; Back pain M54.9 ; Fibromyalgia M79.7 and High risk heterosexual behavior Z72.51 [place] [id number] [place] [address] 40396- 0917 Apr, [place] [id number] [place] [address] 58653- 1645 Mar, Bipolar affective, depress, mod F31.32 ; Post-traumatic stress disorder, chronic F43.12 ; Borderline personality disorder F60.3 and Cannabis use disorder, mild, abuse F12.10 [place] [id number] [place] [address] 34570- 1654 Mar, Tobacco abuse Z72.0 [place] [id number] [place] [address] 75233- 2643 Mar, [place] [id number] [place] [address] 86200- 9583 February, Fibromyalgia M79.7 [place] [id number] [place] [address] 36292- 2574 Jan, Post-traumatic stress disorder, chronic F43.12 ; Bipolar affective, depress, mod F31.32 ; Borderline personality disorder F60.3 and Cannabis use disorder, mild, abuse F12.10 [place] [id number] [place] [address] 13015- 2590 Jan, [place] [id number] [place] [address] [address] Dec, Bipolar affective, depress, mod F31.32 ; Post-traumatic stress disorder, chronic F43.12 ; Borderline personality disorder F60.3 and Cannabis use disorder, mild, abuse F12.10 [place] [id number] [place] [address] 45107- 4722 Dec, Hoarseness R49.0 ; Bronchitis J40 ; PAD (peripheral artery disease) I73.9 and Tobacco abuse Z72.0 [place] [id number] [place] [address] 76954- 1974 Nov, Bipolar affective, depress, mod F31.32 ; Post-traumatic stress disorder, chronic F43.12 ; Borderline personality disorder F60.3 and Cannabis use disorder, mild, abuse F12.10 [place] [id number] [place] [address] 65029 0988 Oct, Post-traumatic stress disorder, chronic F43.12 ; Bipolar affective, depress, mod F31.32 ; Borderline personality disorder F60.3 and Cannabis use disorder, mild, abuse F12.10 [address] [id number] [place] [address] 65571- 2336 Oct, Bipolar affective, depress, mod F31.32 ; Post-traumatic stress disorder, chronic F43.12 and Borderline personality disorder F60.[address] 58303- 0374 Sep, Anxiety F41.9 [id number] [place] [address] 88065- 8501 Aug, Bipolar affective, depress, mod F31.32 ; Post-traumatic stress disorder, chronic F43.12 and Borderline personality disorder F60.3 [address] [id number] [place] [address] 92335- 2577 Aug, Bipolar affective, depress, mod F31.32 ; Post-traumatic stress disorder, chronic F43.12 and Borderline personality disorder F60.3 [place] [id number] 5248 Aug, Fibromyalgia M79.7 ; Back pain M54.9 and Cervical radiculopathy M54.[address] 96150- 2875 Aug, Bipolar affective, depress, mod F31.32 and Post-traumatic stress disorder, chronic F43.12 [place] [id number] [place] [address] 2615 Jul, Depression F32.9 ; Borderline personality disorder F60.3 and Bipolar affective, depress, mod F31.[address] 93693- 4557 Jul, Post-traumatic stress disorder, chronic F43.12 ; Bipolar affective, depress, mod F31.32 ; Borderline personality disorder F60.3 and Cannabis use disorder, mild, abuse F12.10 [place] [id number] [place] [address] 87254- 5129 Jul, Other group home (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.899 [place] [id number] [place] [address] 03028- 8955 Jun, [place] [address] 04991- 2813 Jun, Depression F32.9 ; Borderline personality disorder F60.3 and Bipolar affective, depress, mod F31.32 [place] [id number] [place] [address] 98894- 1767 Jun, Depression F32.9 and Borderline personality disorder F60.3 [place] [id number] [place] [address] 50647- 7616 May, Post-traumatic stress disorder, chronic F43.12 [place] [id number] [place] [address] 32523- 8135 May, Depression F32.9 and Borderline personality disorder F60.3 [place] [id number] [place] [address] 3645 Apr, Post-traumatic stress disorder, chronic F43.12 ; Bipolar affective, depress, mod F31.32 ; Borderline personality disorder F60.3 ; Other recreation aide (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.899 and Cannabis use disorder, mild, abuse F12.10 [facility] [id number] [place] [address] 13215- 3110 Apr, Depression F32.9 and Borderline personality disorder F60.3 [facility] [id number] [place] [address] 07372- 9336 Apr, Depression F32.9 and Borderline personality disorder F60.3 [facility] [id number] [place] [address] 98671- 1436 Mar, Depression F32.9 and Borderline personality disorder F60.3 [place] [id number] [place] [address] 29155- 5085 February, Depression F32.9 and Borderline personality disorder F60.3 [place] [id number] [place] [address] 06904- 7599 February, Back pain M54.9 [facility] [id number] [place] [address] 15002- 7196 February, Depression F32.9 and Borderline personality disorder F60.3 [place] [id number] [place] [address] 15423- 3622 February, Post-traumatic stress disorder, chronic F43.12 ; Borderline personality disorder F60.3 and Bipolar affective disorder, depressed, mild F31.31 [place] [id number] [place] [address] 11237- 4481 February, [facility] [id number] [place] [address] 06988- 9850 February, Depression F32.9 and Borderline personality disorder F60.3 [facility] [id number] [place] [address] 16157- 6042 Jan, [facility] [id number] [place] [address] 84506- 3307 Jan, Depression F32.9 and Borderline personality disorder F60.3 [facility] [id number] [place] [address] 09811- 4273 Jan, Acute lateral meniscus tear of right knee, initial encounter S83.281A [place] [address] 02561- 4593 Jan, Depression F32.9 and Borderline personality disorder F60.3 [place] [address] 42457- 8482 Dec, Depression F32.9 and Borderline personality disorder F60.3 [place] [address] 02319- 6762 Dec, Depression F32.9 and Borderline personality disorder F60.3 [place] [address] 00140- 4954 28 Nov, 2016 Hyperlipidemia E78.5 ; Knee locking, right M23.91 and Carpal tunnel syndrome of right wrist G56.01 [place] [id number] [place] [address] 68237- 8697 23 Nov, 2016 Bipolar affective, depress, mod F31.32 ; Post-traumatic stress disorder, chronic F43.12 and Borderline personality disorder F60.3 [place] [id number] [place] [address] 68181- 4749 16 Nov, 2016 Depression F32.9 and Borderline personality disorder F60.3 [place] [id number] [place] [address] 23071- 7036 Oct, Post-traumatic stress disorder, chronic F43.12 and Other recreation aide (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.899 [place] [id number] [place] [address] 11559- 0808 Oct, Nondisplaced fracture of distal end of right radius with routine healing, subsequent encounter S52.501D [place] [id number] [place] [address] 51601- 6110 Sep, [place] [address] 45218- 1828 Aug, Right wrist fracture, closed, initial encounter S62.101A [place] [address] 57725- 4301 Aug, [facility] [address] 78179- 6068 Jul, Back pain M54.9 and Hyperlipidemia E78.5 [place] [address] 96678- 0888 Jul, Post-traumatic stress disorder, chronic F43.12 and Other group home (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.899 [place] [address] 62231- 1202 Apr, Bipolar affective, depress, mod F31.32 ; Post-traumatic stress disorder, chronic F43.12 and Other recreation aide (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.899 [place] [address] 64535- 5824 Mar, [facility] [address] 69428- 9857 Jan, Post-traumatic stress disorder, chronic F43.12 and Depression F32.9 [place] [address] 68148- 1079 Dec, [place] [address] 41419- 2752 Nov, Shoulder pain, left M25.512 and Bronchitis J40 [facility] [id number] [place] [address] 44164- 9094 Sep, Hyperlipidemia E78.5 [facility] [address] 84046- 0696 Sep, Hyperlipidemia E78.5 [facility] [id number] [place] [address] 46434- 3344 Sep, [place] [id number] [place] [address] 35401- 5912 15 Sep, 2015 Back pain M54.9 ; CAD (coronary artery disease) I25.10 and Depression F32.9 [facility] [id number] [place] [address] 21907- 9446 11 Sep, 2015 URI (upper respiratory infection) J06.9 ; Nausea & vomiting R11.2 and Tobacco abuse Z72.0 [facility] [address] 31878- 6236 Mar, Posttraumatic stress disorder 309.81 ; Major depressive disorder, recurrent episode, in partial remission 296.35 ; Nightmares associated with chronic post-traumatic stress disorder 307.47 ; Thoracic or lumbosacral neuritis or radiculitis, unspecified 724.4 ; Borderline personality disorder 301.83 and High risk medication use V58.69 [facility] [address] 30131- 8007 Jan, [facility] [id number] [place] [address] 48731- 3352 Jan, [facility] [address] 06833- 8172 Dec, [facility] [id number] [place] [address] 27668- 2634 Dec, [facility] [id number] [place] [address] 86673- 0667 Sep, [facility] [id number] [place] [address] 39048- 9386 Sep, [facility] [address] 67493- 5879 Sep, [facility] [id number] [place] [address] 84528- 4615 Sep, [facility] [id number] [place] [address] 02099- 6627 Sep, [facility] [place] [facility] [address] [id number] [place] [address]- 5654 Jul, [facility] [place] [facility] [address] [id number] [place] [address]- 7540 Jul, [facility] [place] [facility] [address] [id number] [place] [address]- 3064 Jul, [facility] [place] [facility] [address] [id number] [place] [address]- 8230 Jul, [facility] [place] [facility] [address] [id number] [place] [address]- 4691 Jul, [facility] [place] [facility] [address] [id number] [place] [address]- 1184 Jul, [facility] [place] [facility] [address] [id number] [place] [address]- 6559 Jul, [facility] [place] [facility] [address] [id number] [place] [address]- 2659 Jul, [facility] [place] [facility] [address] [id number] [place] [address]- 5140 May, [facility] [place] [facility] [address] [id number] [place] [address]- 8140 May, [facility] [place] [facility] [address] [id number] [place] [address]- 8868 May, [facility] [place] [facility] [address] [id number] [place] [address]- 8305 May, [facility] [place] [facility] [address] [id number] [place] [address]- 6097 May, [facility] [place] [facility] [address] [id number] [place] [address]- 2070 May, [facility] [place] [facility] [address] [id number] [place] [address]- 0312 Mar, [facility] [place] [facility] [address] [id number] [place] [address]- 6203 Mar, [facility] [place] [facility] [address] [id number] [place] [address]- 1903 February, [facility] [place] [facility] [address] [id number] [place] [address]- 3695 February, [facility] [place] [facility] [address] [id number] [place] [address]- 3910 February, [facility] [place] [facility] [address] [id number] [place] [address]- 1365 February, [facility] [place] [facility] [address] [id number] [place] [address]- 4825 February, [facility] [place] [facility] [address] [id number] [place] [address]- 0370 February, [facility] [place] [facility] [address] [id number] [place] [address]- 8927 February, [facility] [place] [facility] [address] [id number] [place] [address]- 3846 Jan, [facility] [place] [facility] [address] [id number] [place] [address]- 2656 Jan, [facility] [place] [facility] [address] [id number] [place] [address]- 4691 Jan, [facility] [place] [facility] [address] [id number] [place] [address]- 0152 Jan, [facility] [place] [facility] [address] [id number] [place] [address]- 6901 Dec, [facility] [place] [facility] [address] [id number] [place] [address]- 2346 Dec, [facility] [place] [facility] [address] [id number] [place] [address]- 5451 Dec, [facility] [place] [facility] [address] [id number] [place] [address]- 8120 Dec, [facility] [place] [facility] [address] [id number] [place] [address]- 0822 Nov, [facility] [place] [facility] [address] [id number] [place] [address]- 3696 Nov, [facility] [place] [facility] [address] [id number] [place] [address]- 1146 Nov, [facility] [place] [facility] [address] [id number] [place] [address]- 8056 Nov, [facility] [place] [facility] [address] [id number] [place] [address]- 2488 Nov, [facility] [place] [facility] [address] [id number] [place] [address]- 3256 Nov, [facility] [place] [facility] [address] [id number] [place] [address]- 5259 Nov, [facility] [place] [facility] [address] [id number] [place] [address]- 1729 Nov, [facility] [place] [facility] [address] [id number] [place] [address]- 5956 Oct, [facility] [place] [facility] [address] [id number] [place] [address]- 5040 Oct, [facility] [place] [facility] [address] [id number] [place] [address]- 6042 Oct, [facility] [place] [facility] [address] [id number] [place] [address]- 0523 Oct, [facility] [place] [facility] [address] [id number] [place] [address]- 8329 Oct, [facility] [place] [facility] [address] [id number] [place] [address]- 1400 Oct, [facility] [place] [facility] [address] [id number] [place] [address]- 3136 Oct, [facility] [place] [facility] [address] [id number], [place] [address]- 0624 Oct, [facility] [place] [facility] [address] [id number] [place] [address]- 2700 Oct, [facility] [place] [facility] [address] [id number] [place] [address]- 9232 Oct, [facility] [place] [facility] [address] [id number] [place] [address]- 5492 Oct, [facility] [place] [facility] [address] [id number] [place] [address]- 6674 Aug, [facility] [place] [facility] [address] [id number] [place] [address]- 6122 Aug, [facility] [place] [facility] [address] [id number] [place] [address]- 0358 Jul, [facility] [place] [facility] [address] [id number] [place] [address]- 1457 Jul, [facility] [place] [facility] [address] [id number] [place] [address]- 3244 Jul, [facility] [place] [facility] [address] [id number] [place] [address]- 5842 Jul, [facility] [place] [facility] [address] [id number] [place] [address]- 6907 Jun, [facility] [place] [facility] [address] [id number], [place] [address]- 2236 Jun, [facility] [place] [facility] [address] [id number], [place] [address]- 7991 Jan, [facility] [place] [facility] [address] [id number] [place] [address]- 2066 Oct, [facility] [place] [facility] [address] [id number] [place]- 5649 Sep, [facility] [place] [facility] [address] [id number] [place] 5827 Sep, [facility] [place] [facility] [address] [id number] [place] [address]- 0273 07 Sep, 2012 [facility] [place] [facility] [address] [id number] [place] [address]- 7997 Sep, [facility] [place] [facility] [address] [id number] [place] [address]- 7197 Aug, [facility] [place] [facility] [address] [id number] [place] [address]- 5835 Aug, [facility] [place] [facility] [address] [id number] [place] [address]- 9560 Aug, [facility] [place] [facility] [address] [id number] [place] [address]- 4139 Aug, [facility] [place] [facility] [address] [id number] [place] [address]- 5463 Jul, [facility] [place] [facility] [address] [id number] [place] [address]- 4852 Jul, [facility] [place] [facility] [address] [id number] [place] [address]- 2121 Jul, [facility] [place] [facility] [address] [id number] [place] [address]- 6881 Jul, [facility] [place] [facility] [address] [id number] [place] [address]- 8563 Jul, [facility] [place] [facility] [address] [id number] [place] [address]- 5745 Jun, [facility] [place] [facility] [address] [id number] [place] [address]- 2905 Jun, [facility] [place] [facility] [address] [id number] [place] [address]- 9718 Jun, [facility] [place] [facility] [address] [id number] [place] [address] 2546 May, [facility] [place] [facility] [address] [id number] [place] [address]- 5684 May, [facility] [place] [facility] [address] [id number] [place] [address]- 8582 Apr, [facility] [place] [facility] [address] [id number] [place] [address]- 5667 Apr, [facility] [place] [facility] [address] [id number] [place] [address]- 7020 Apr, [facility] [place] [facility] [address] [id number] [place] [address]- 0518 Apr, [facility] [place] [facility] [address] [id number] [place] [address]- 9283 Mar, [facility] [place] [facility] [address] [id number] [place] [address]- 0762 Mar, [facility] [place] [facility] [address] [id number] [place] [address]- 4583 Mar, [facility] [place] [facility] [address] [id number] [place] [address]- 9277 February, [facility] [place] [facility] [address] [id number] [place] [address]- 8633 February, [facility] [place] [facility] [address] [id number] [place] [address]- 9095 February, [facility] [place] [facility] [address] [id number] [place] [address]- 6666 February, [facility] [place] [facility] [address] [id number] [place] [address]- 8197 February, [facility] [place] [facility] [address] [id number] [place] [address]- 4693 Jan, [facility] [place] [facility] [address] [id number] [place] [address]- 0996 Jan, [facility] [place] [facility] [address] [id number] [place] [address]- 4418 Jan, [facility] [place] [facility] [address] [id number] [place] [address]- 5555 30 Dec, 2011 [facility] [place] [facility] [address] [id number] [place] [address]- 9661 30 Dec, 2011 [facility] [place] [facility] [address] [id number] [place] [address]- 3406 26 Dec, 2011 [facility] [place] [facility] [address] [id number] [place] [address]- 4436 29 Nov, 2011 [facility] [place] [facility] [address] [id number] [place] [address] 16 Nov, 2011 [facility] [place] [facility] [address] [id number] [place] [address] 07 Nov, 2011 [facility] [place] [facility] [address] [id number] [place] [address] 06 Nov, 2011 [facility] [place] [facility] [address] [id number] [place] [address] Oct, [facility] [place] [facility] [address] [id number] [place] [address] Oct, [facility] [place] [facility] [address] [id number] [place] [address] 30 Sep, 2011 [facility] [place] [facility] [address] [id number] [place] [address] 30 Sep, 2011 [facility] [place] [facility] [address] [id number] [place] [address] 14 Sep, 2011 [facility] [place] [facility] [address] [id number] [place] [address] 05 Sep, 2011 [facility] [place] [facility] [address] [id number] [place] [address]- 1668 28 Aug, 2011 [facility] [place] [facility] [address] [id number] [place] [address] 10 Aug, 2011 [facility] [place] [facility] [address] [id number] [place] [address] Aug, [facility] [place] [facility] [address] [id number] [place] [address] Jul, [facility] [place] [facility] [address] [id number] [place] [address] Jul, [facility] [place] [facility] [address] [id number] [place] [address] Jul, [facility] [place] [facility] [address] [id number] [place] [address] May, [facility] [place] [facility] [address] [id number] [place] [address] February, [facility] [place] [facility] [address] [id number] [place] [address] Nov, [facility] [place] [facility] [address] [id number] [place] [address] Oct, [facility] [address] [id number] [place] [address] Oct, [facility] [place] [facility] [address] [id number] [place] [address] Sep, [facility] [place] [facility] [address] [id number] [place] [address] Sep, [facility] [place] [facility] [address] [id number] [place] [address] 17 Sep, 2010 [facility] [place] [facility] [address] [id number] [place] [address]- [address] 16 Sep, 2010 [facility] [place] [facility] [address] [id number] [place] [address]- [address]84 10 Sep, 2010 [facility] [place] [facility] [address] [id number] [place] [address] Sep, [facility] [place] [facility] [address] [id number] [place] [address] 29 Aug, 2010 [facility] [place] [facility] [address] [id number], [place] [address] 23 Aug, 2010 [facility] [place] [facility] [address] [id number] [place] [address] 18 Aug, 2010 [facility] [place] [facility] [address] [id number], [place] [address] 17 Aug, 2010 [facility] [place] [facility] [address] [id number] [place] [address] 16 Aug, 2010 [facility] [place] [facility] [address] [id number], [place] [address] 254 25 Jul, 2010 [facility] [place] [facility] [address] [id number] [place] [address] 16 Jun, 2010 [facility] [place] [facility] [address] [id number] [address] February, [facility] [address] [id number] [address] Oct, [facility] [address] [id number][place] [address] Sep, [facility] [address] [id number], [place] [address] 24 Aug, 2009 [facility] [address] [id number][place] [address] 03 Aug, 2009 [facility] [address] [id number][place] [address] 02 Aug, 2009 [facility] [address] [id number], [place] [address] 20 Jul, 2009 [facility] [address] [id number][place] [address] 15 Jul, 2009 [facility] [address] [id number][place] [address] 15 Jul, 2009 [facility] [address] [id number], [place] [address] 14 Jun, 2009 [facility] [address] [facility]NOTE 3] [id number] [place] [address] Jun, [facility] [address] [facility]NOTE 3] [id number], [place] [address] Mar, [facility] [address] [facility][NOTE 3] [id number], [place] [address] Jan, [facility] [address] [facility]NOTE 3] [id number][place] [address] Aug, IMMUNIZATIONS No Known Immunizations SOCIAL HISTORY Never Assessed REASON FOR VISIT PTF f/u Pt in for f/u on PFT's SATISH Durand PLAN OF CARE Activity Details Follow Up 4 Months Reason: VITAL SIGNS Height 67 in 2018-05-05 Weight 165.4 lbs 2018-05-05 Temperature 98.4 degrees Fahrenheit 2018-05-05 Heart Rate 82 bpm 2018-05-05 Respiratory Rate 18 2018-05-05 BMI 25.90 kg/m2 2018-05-05 Blood pressure systolic 122 mmHg 2018-05-05 Blood pressure diastolic 64 mmHg 2018-05-05 MEDICATIONS Medication Instructions Dosage Frequency Start Date End Date Duration Status Nitrostat 0.4 MG Sublingual 2 5 min prn 1 Active Ibuprofen 800 MG Orally Three times a day 1 tablet 8h Aug, Active Pravastatin Sodium 80 MG Orally Once a day 1 tablet 24h 30 days Not- Taking Pravastatin Sodium 40 MG TAKE ONE TABLET BY MOUTH ONCE DAILY (MUST HAVE APPOINTMENT WITH FASTING LIPIDS FOR FURTHER REFILLS) 30 Active Chantix Starting Month Fred 0.5 MG X 11 & 1 MG X 42 as directed Jan, Not-Taking Pristiq 100 MG TAKE ONE TABLET BY MOUTH ONCE DAILY 30 Active QUEtiapine Fumarate ER 200 MG TAKE ONE TABLET BY MOUTH ONCE DAILY IN THE EVENING 30 Active Lyrica 100 mg Orally 4 times a day 1 capsule 6h Active QUEtiapine Fumarate ER 300 MG TAKE ONE TABLET BY MOUTH ONCE DAILY IN THE EVENING 30 Active Promethazine HCl 25 MG Orally 3 times a day for nausea 1 tablet as needed Jan, Active RESULTS Name Result Date Reference Range HEP C ANTIBODY (STATE) 2018-05-05 RESULTS PROCEDURES Procedure Date Ordered Result Body Site No Charge May 05, 2018 VENIPUNCT, ROUTINE* May 05, 2018 INSTRUCTIONS MEDICATIONS ADMINISTERED No Known Medications [...]
--- OUTSIDE RECORDS SUMMARY | 2018-11-13 11:44 | XMS REPORT ---
Author Author MARIMAR JONES Organization [facility] Address [address] [place] [address] Care Team Providers Care Paper Guillotine Operator Name Role Phone MARIMAR JONES Unavailable PROBLEMS Type Condition ICD9-CM Code [id number] Code Onset Dates Condition Status SNOMED Code Problem Borderline personality disorder F60.3 Active 61721893 Problem Post-traumatic stress disorder, chronic F43.12 Active 62364180 Problem Carpal tunnel syndrome of right wrist G56.01 Active 121184786693062 Problem PAD (peripheral artery disease) I73.9 Active 229050358 Problem Anxiety F41.9 Active 35120824 Problem Cannabis use disorder, mild, abuse F12.10 Active 64320368 Problem Bipolar affective, depress, mod F31.32 Active 099892542 Problem Fibromyalgia M79.7 Active 907004550 Problem Cervical radiculopathy M54.12 Active 40612188 Problem CAD (coronary artery disease) I25.10 Active 70585019 Problem Depression F32.9 Active 06176144 Problem Back pain M54.9 Active 972480287 Problem Tobacco abuse Z72.0 Active 21139694 Problem Hyperlipidemia E78.5 Active 30192372 ALLERGIES No Information ENCOUNTERS Encounter Location Date Diagnosis [facility] [address] [id number] [address] Jul, [facility] [address] [id number] [address] 9690 May, [facility] [id number] [place] [address] 85751- 0729 May, [facility] [id number] [place] [address] 18275- 8758 Apr, Post-traumatic stress disorder, chronic F43.12 ; Bipolar affective, depress, mod F31.32 ; Borderline personality disorder F60.3 and Cannabis use disorder, mild, abuse F12.10 [id number] [place] [address] 97209- 1090 Apr, Cervical radiculopathy M54.12 ; Back pain M54.9 ; Fibromyalgia M79.7 and High risk heterosexual behavior Z72.51 [id number] [place] [address] 78394- 3025 Apr, [id number] [place] [address] 408566- 0600 Mar, Bipolar affective, depress, mod F31.32 ; Post-traumatic stress disorder, chronic F43.12 ; Borderline personality disorder F60.3 and Cannabis use disorder, mild, abuse F12.10 [id number] [place] [address] 91842- 5786 Mar, Tobacco abuse Z72.0 [id number] [place] [address] 99443- 4491 Mar, [address] [address] [id number] [place] [address] 66019- 9220 February, Fibromyalgia M79.7 [id number] [place] [address] 864787- 8946 Jan, Post-traumatic stress disorder, chronic F43.12 ; Bipolar affective, depress, mod F31.32 ; Borderline personality disorder F60.3 and Cannabis use disorder, mild, abuse F12.10 [id number] [place] [address] 73623- 4459 Jan, [id number] [place] [address] 11729- 1804 Dec, Bipolar affective, depress, mod F31.32 ; Post-traumatic stress disorder, chronic F43.12 ; Borderline personality disorder F60.3 and Cannabis use disorder, mild, abuse F12.10 [id number] [place] [address] 95842- 7849 20 Mar, 2018 Hoarseness R49.0 ; Bronchitis J40 ; PAD (peripheral artery disease) I73.9 and Tobacco abuse Z72.0 [address] [place] [address]- 116 Nov, Bipolar affective, depress, mod F31.32 ; Post-traumatic stress disorder, chronic F43.12 ; Borderline personality disorder F60.3 and Cannabis use disorder, mild, abuse F12.10 [address] 138178- 168 Oct, Post-traumatic stress disorder, chronic F43.12 ; Bipolar affective, depress, mod F31.32 ; Borderline personality disorder F60.3 and Cannabis use disorder, mild, abuse F12.10 [address] 8[address]10- 512 Oct, Bipolar affective, depress, mod F31.32 ; Post-traumatic stress disorder, chronic F43.12 and Borderline personality disorder F60.3 [address] [id number] 4771 Sep, Anxiety F41.9 [address] 138173- 8706 Aug, Bipolar affective, depress, mod F31.32 ; Post-traumatic stress disorder, chronic F43.12 and Borderline personality disorder F60.3 [id number] [place] [address] 92772- 6888 Aug, Bipolar affective, depress, mod F31.32 ; Post-traumatic stress disorder, chronic F43.12 and Borderline personality disorder F60.3 [id number] [place] [address] 17214- 0370 Aug, Fibromyalgia M79.7 ; Back pain M54.9 and Cervical radiculopathy M54.12 [id number] [place] [address] 32864- 3374 Aug, Bipolar affective, depress, mod F31.32 and Post-traumatic stress disorder, chronic F43.12 [facility] [id number] [place] [address] 28079- 1696 Jul, Depression F32.9 ; Borderline personality disorder F60.3 and Bipolar affective, depress, mod F31.32 [facility] [id number] [place] [address] 27344- 6527 Jul, Post-traumatic stress disorder, chronic F43.12 ; Bipolar affective, depress, mod F31.32 ; Borderline personality disorder F60.3 and Cannabis use disorder, mild, abuse F12.10 [address] [place] [address] 10946- 1491 Jul, Other snf (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.899 [address] [id number] [place] [address] 48074- 4862 Jun, [address] [address] [id number] [place] [address] 461088- 7076 Jun, Depression F32.9 ; Borderline personality disorder F60.3 and Bipolar affective, depress, mod F31.32 [address] [address] [id number] [place] [address] 57726- 1257 Jun, Depression F32.9 and Borderline personality disorder F60.3 [address] [address] [id number] [place] [address] 70304- 6132 May, Post-traumatic stress disorder, chronic F43.12 [address] [id number] [place] [address] 80640- 0566 May, Depression F32.9 and Borderline personality disorder F60.3 [address] [address] [id number] [place] [address] 87684- 8838 Apr, Post-traumatic stress disorder, chronic F43.12 ; Bipolar affective, depress, mod F31.32 ; Borderline personality disorder F60.3 ; Other snf (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.899 and Cannabis use disorder, mild, abuse F12.10 [id number] [place] [address] 93020- 4002 Apr, Depression F32.9 and Borderline personality disorder F60.3 [facility] [id number] [place] [address] 16536- 8285 Apr, Depression F32.9 and Borderline personality disorder F60.3 [facility] [id number] [place] [address] 53335- 8088 Mar, Depression F32.9 and Borderline personality disorder F60.3 [facility] [id number] [place] [address] 61817- 4842 February, Depression F32.9 and Borderline personality disorder F60.3 [facility] [id number] [place] [address] 50109- 8701 February, Back pain M54.9 [facility] [id number] [place] [address] 45574- 6778 February, Depression F32.9 and Borderline personality disorder F60.3 [facility] [id number] [place] [address] 49200- 1502 February, Post-traumatic stress disorder, chronic F43.12 ; Borderline personality disorder F60.3 and Bipolar affective disorder, depressed, mild F31.31 [facility] [id number] [place] [address] 94269- 1133 February, [facility] [id number] [place] [address] 30104- 5327 February, Depression F32.9 and Borderline personality disorder F60.3 [facility] [id number] [place] [address] 12049- 4019 Jan, [facility] [id number] [place] [address] 98928- 2513 Jan, Depression F32.9 and Borderline personality disorder F60.3 [facility] [address] [place] [address] 59166- 7155 Jan, Acute lateral meniscus tear of right knee, initial encounter S83.281A [facility] [id number] [place] [address] 13079- 7223 Jan, Depression F32.9 and Borderline personality disorder F60.3 [facility] [id number] [place] [address] 89277- 3989 Dec, Depression F32.9 and Borderline personality disorder F60.3 [address] [address] 90113- 9632 Dec, Depression F32.9 and Borderline personality disorder F60.3 [id number] [place] [address] 12164- 6552 28 Nov, 2016 Hyperlipidemia E78.5 ; Knee locking, right M23.91 and Carpal tunnel syndrome of right wrist G56.01 [id number] [place] [address] 14279- 7717 23 Nov, 2016 Bipolar affective, depress, mod F31.32 ; Post-traumatic stress disorder, chronic F43.12 and Borderline personality disorder F60.3 [id number] [place] [address] 55115- 9193 16 Nov, 2016 Depression F32.9 and Borderline personality disorder F60.3 [id number] [place] [address] 08667- 8069 Oct, Post-traumatic stress disorder, chronic F43.12 and Other bed bug exterminator (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.899 [id number] [place] [address] 20923- 9806 Oct, Nondisplaced fracture of distal end of right radius with routine healing, subsequent encounter S52.501D [id number] [place] [address] 32039- 0267 Sep, [facility] [id number] [place] [address] 55282- 6827 Aug, Right wrist fracture, closed, initial encounter S62.101A [facility] [address] [place] [address] 83351- 5545 Aug, [facility] [id number] [place] [address] 10426- 5446 Jul, Back pain M54.9 and Hyperlipidemia E78.5 [facility] [id number] [place] [address] 47478- 2716 Jul, Post-traumatic stress disorder, chronic F43.12 and Other bed bug exterminator (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.899 [facility] [id number] [place] [address] 69009- 9376 Apr, Bipolar affective, depress, mod F31.32 ; Post-traumatic stress disorder, chronic F43.12 and Other snf (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.899 [facility] [id number] [place] [address] 08242- 5956 Mar, [facility] [id number] [place] [address] 72570- 5787 Jan, Post-traumatic stress disorder, chronic F43.12 and Depression F32.9 [facility] [id number] [place] [address] 32735- 9532 Dec, [facility] [id number] [place] [address] 19718- 2664 Nov, Shoulder pain, left M25.512 and Bronchitis J40 [facility] [id number] [place] [address] 54864- 9476 Sep, Hyperlipidemia E78.5 [facility] [id number] [place] [address] 28093- 7286 Sep, Hyperlipidemia E78.5 [facility] [id number] [place] [address] 64415 2546 Sep, [facility] [id number] [place] [address] 83840- 4440 Sep, Back pain M54.9 ; CAD (coronary artery disease) I25.10 and Depression F32.9 [facility] [address] 43695- 6003 Sep, URI (upper respiratory infection) J06.9 ; Nausea & vomiting R11.2 and Tobacco abuse Z72.0 [facility] [address] 96239- 3025 Mar, Posttraumatic stress disorder 309.81 ; Major depressive disorder, recurrent episode, in partial remission 296.35 ; Nightmares associated with chronic post-traumatic stress disorder 307.47 ; Thoracic or lumbosacral neuritis or radiculitis, unspecified 724.4 ; Borderline personality disorder 301.83 and High risk medication use V58.69 [facility] [address] 32796- 7967 14 Jan, 2015 [facility] [address] 21755- 5713 Jan, [facility] [address] 87301- 3284 Dec, [facility] [address] 54922- 9758 Dec, [facility] [id number] [place] [address] 39692- 5483 Sep, [facility] [address] 99738- 2703 Sep, [facility] [id number] [place] [address] 65311- 3554 Sep, [facility] [address] 34107- 0699 Sep, [facility] [id number] [place] [address] 90017- 2723 Sep, [facility] [address] 08292- 7890 Jul, [facility] [place] [facility] [address] [id number] [place] [address]- 9273 Jul, [facility] [place] [facility] [address] [id number] [place] [address]- 4170 Jul, [facility] [place] [facility] [address] [id number] [place] [address]- 3784 Jul, [facility] [place] [facility] [address] [id number] [place] [address]- 4752 Jul, [facility] [place] [facility] [address] [id number] [place] [address]- 3397 Jul, [facility] [place] [facility] [address] [id number] [place] [address]- 4094 Jul, [facility] [place] [facility] [address] [id number] [place] [address]- 8855 Jul, [facility] [place] [facility] [address] [id number] [place] [address]- 1680 May, [facility] [place] [facility] [address] [id number] [place] [address]- 9104 May, [facility] [place] [facility] [address] [id number] [place] [address]- 6206 May, [facility] [place] [facility] [address] [id number] [address]- 2155 May, [facility] [place] [facility] [address] [id number], [place] [address]- 0449 May, [facility] [place] [facility] [address] [id number] [place] [address]- 9352 May, [facility] [place] [facility] [address] [id number] [place] [address]- 2174 Mar, [facility] [place] [facility] [address] [id number] [place] [address]- 9515 Mar, [facility] [place] [facility] [address] [id number] [place] [address]- 4352 February, [facility] [place] [facility] [address] [id number] [place] [address]- 5077 February, [facility] [place] [facility] [address] [id number] [place] [address]- 8912 February, [facility] [place] [facility] [address] [id number] [place] [address]- 0409 February, [facility] [place] [facility] [address] [id number] [place] [address]- 1520 February, [facility] [place] [facility] [address] [id number] [place] [address]- 2358 February, [facility] [place] [facility] [address] [id number] [place] [address]- 7373 February, [facility] [place] [facility] [address] [id number] [place] [address]- 3549 Jan, [facility] [place] [facility] [address] [id number] [place] [address]- 4149 Jan, [facility] [place] [facility] [address] [id number] [place] [address]- 2623 Jan, [facility] [place] [facility] [address] [id number] [place] [address]- 9289 Jan, [facility] [place] [facility] [address] [id number] [place] [address]- 7592 Dec, [facility] [place] [facility] [address] [id number] [place] [address]- 5511 Dec, [facility] [place] [facility] [address] [id number] [place] [address]- 7824 Dec, [facility] [place] [facility] [address] [id number] [place] [address]- 9019 Dec, [facility] [place] [facility] [address] [id number] [place] [address]- 3754 Nov, [facility] [place] [facility] [address] [id number] [place] [address]- 8359 Nov, [facility] [place] [facility] [address] [id number] [place] [address]- 1626 Nov, [facility] [place] [facility] [address] [id number] [place] [address]- 2954 Nov, [facility] [place] [facility] [address] [id number] [place] [address]- 6339 Nov, [facility] [place] [facility] [address] [id number] [place] [address]- 6354 Nov, [facility] [place] [facility] [address] [id number] [place] [address]- 6633 Nov, [facility] [place] [facility] [address] [id number] [place] [address]- 6621 Nov, [facility] [place] [facility] [address] [id number] [place] [address]- 1204 Oct, [facility] [place] [facility] [address] [id number] [place] [address]- 6978 Oct, [facility] [place] [facility] [address] [id number] [place] [address]- 6029 Oct, [facility] [place] [facility] [address] [id number] [place] [address]- 8028 Oct, [facility] [place] [facility] [address] [id number], [place] [address]- 3825 Oct, [facility] [place] [facility] [address] [id number] [place] [address]- 0743 Oct, [facility] [place] [facility] [address] [id number] [place] [address]- 6283 Oct, [facility] [place] [facility] [address] [id number] [place] [address]- 0507 Oct, [facility] [place] [facility] [address] [id number] [place] [address]- 5215 13 Oct, 2013 [facility] [address] [id number] [place] [address]- 5747 Oct, [facility] [place] [facility] [address] [id number] [place] [address]- 5683 Oct, [facility] [address] [id number] [place] [address]- 4905 Aug, [facility] [place] [facility] [address] [id number] [place] [address]- 4438 Aug, [facility] [place] [facility] [address] [id number] [place] [address]- 9537 Jul, [facility] [place] [facility] [address] [id number] [place] [address]- 6425 Jul, [facility] [address] [id number] [place] [address]- 7569 Jul, [facility] [place] [facility] [address] [id number] [place] [address]- 7044 Jul, [facility] [place] [facility] [address] [id number] [place] [address]- 9320 Jun, [facility] [place] [facility] [address] [id number] [place] [address]- 6357 Jun, [facility] [place] [facility] [address] [id number] [place] [address]- 4184 Jan, [facility] [place] [facility] [address] [id number] [place] [address]- 1150 Oct, [facility] [place] [facility] [address] [id number] [place] [address]- 0770 Sep, [facility] [place] [facility] [address] [id number] [place] [address]- 5770 Sep, [facility] [place] [facility] [address] [id number] [place] [address]- 9446 Sep, [facility] [place] [facility] [address] [id number] [place] [address]- 1856 Sep, [facility] [place] [facility] [address] [id number] [place] [address]- 0881 Aug, [facility] [place] [facility] [address] [id number] [place] [address]- 5420 Aug, [facility] [place] [facility] [address] [id number] [place] [address]- 2229 Aug, [facility] [place] [facility] [address] [id number] [place] [address]- 8406 Aug, [facility] [place] [facility] [address] [id number] [place] [address]- 4907 Jul, [facility] [place] [facility] [address] [id number] [place] [address]- 6090 Jul, [facility] [place] [facility] [address] [id number] [place] [address]- 7518 Jul, [facility] [place] [facility] [address] [id number] [place] [address]- 5021 Jul, [facility] [place] [facility] [address] [id number] [place] [address]- 6131 Jul, [facility] [place] [facility] [address] [id number] [place] [address]- 8053 Jun, [facility] [place] [facility] [address] [id number] [place] [address]- 7439 Jun, [facility] [place] [facility] [address] [id number] [place] [address]- 1186 Jun, [facility] [place] [facility] [address] [id number] [place] [address]- 4737 May, [facility] [place] [facility] [address] [id number] [place] [address]- 6360 May, [facility] [place] [facility] [address] [id number] [place] [address]- 5376 Apr, [facility] [place] [facility] [address] [id number] [place] [address]- 8187 Apr, [facility] [place] [facility] [address] [id number] [place] [address]- 5796 Apr, [facility] [place] [facility] [address] [id number] [place] [address]- 7993 Apr, [facility] [place] [facility] [address] [id number] [place] [address]- 8804 Mar, [facility] [place] [facility] [address] [id number] [place] [address]- 7348 Mar, [facility] [place] [facility] [address] [id number] [place] [address]- 2321 Mar, [facility] [place] [facility] [address] [id number] [place] [address]- 4170 February, [facility] [place] [facility] [address] [id number] [place] [address] February, [facility] [place] [facility] [address] [id number] [place] [address] February, [facility] [place] [facility] [address] [id number] [place] [address] February, [facility] [place] [facility] [address] [id number] [place] [address] February, [facility] [place] [facility] [address] [id number] [place] [address] Jan, [facility] [place] [facility] [address] [id number] [place] [address] Jan, [facility] [place] [facility] [address] [id number] [place] [address] Jan, [facility] [place] [facility] [address] [id number] [place] [address] Dec, [facility] [place] [facility] [address] [id number] [place] [address] 30 Dec, 2011 [facility] [address] [id number] [place] [address] Dec, [facility] [place] [facility] [address] [id number] [place] [address]46 29 Nov, 2011 [facility] [place] [facility] [address] [id number] [place] [address] 16 Nov, 2011 [facility] [place] [facility] [address] [id number] [place] [address] Nov, [facility] [place] [facility] [address] [id number] [place] [address] Nov, [facility] [place] [facility] [address] [facility] [id number] [place] [address] Oct, [facility] [place] [facility] [address] [facility] [id number] [place] [address] Oct, [facility] [place] [facility] [address] [id number] [place] [address] Sep, [facility] [place] [facility] [address] [facility] [id number] [place] [address] Sep, [facility] [place] [facility] [address] [facility] [id number] [place] [address] 14 Sep, 2011 [facility] [place] [facility] [address] [facility] [id number] [place] [address]46 05 Sep, 2011 [facility] [place] [facility] [address] [id number] [place] [address] Aug, [facility] [place] [facility] [address] [facility] [id number] [place] [address] 2546 10 Aug, 2011 [facility] [place] [facility] [address] [facility] [id number] [place] [address] 08 Aug, 2011 [facility] [place] [facility] [address] [facility] [id number] [place] [address] Jul, [facility] [place] [facility] [address] [id number] [place] [address] Jul, [facility] [place] [facility] [address] [id number] [place] [address] Jul, [facility] [place] [facility] [address] [id number] [place] [address] May, [facility] [place] [facility] [address] [id number] [place] [address] February, [facility] [place] [facility] [address] [id number] [place] [address] Nov, [facility] [place] [facility] [address] [id number] [place] [address] 14 Oct, 2010 [facility] [place] [facility] [address] [id number] [place] [address] Oct, [facility] [place] [facility] [address] [id number] [place] [address] 22 Sep, 2010 [facility] [place] [facility] [address] [id number] [place] [address] 17 Sep, 2010 [facility] [place] [facility] [address] [id number] [place] [address] 17 Sep, 2010 [facility] [place] [facility] [address] [id number] [place] [address] 16 Sep, 2010 [facility] [place] [facility] [address] [id number] [place] [address] 10 Sep, 2010 [facility] [place] [facility] [address] [id number] [place] [address] 10 Sep, 2010 [facility] [place] [facility] [address] [id number] [place] [address] 29 Aug, 2010 [facility] [place] [facility] [address] [id number] [place] [address] 23 Aug, 2010 [facility] [place] [facility] [address] [id number] [place] [address] 18 Aug, 2010 [facility] [place] [facility] [address] [id number] [place] [address] 17 Aug, 2010 [facility] [place] [facility] [address] [id number] [place] [address]46 16 Aug, 2010 [facility] [place] [facility] [address] [id number] [place] [address]47 25 Jul, 2010 [facility] [place] [facility] [address] [id number] [place] [address] 254 16 Jun, 2010 [facility] [place] [facility] [address] [id number] [place] [address], [place] [address] February, [facility] [place] [facility] [address] [id number] [place] [address] Oct, [facility] [place] [facility] [address] [facility] [id number] [place] [address] Sep, [facility] [place] [facility] [address] [id number] [place] [address] 24 Aug, 2009 [facility] [place] [facility] [address] [id number] [place] [address]43 03 Aug, 2009 [facility] [place] [facility] [address] [facility] [id number], [place] [address] 02 Aug, 2009 [facility] [place] [facility] [address] [id number] [place] [address]43 20 Jul, 2009 [facility] [place] [facility] [address] [id number], [place] [address] 15 Jul, 2009 [facility] [place] [facility] [address] [id number] [place] [address] 15 Jul, 2009 [facility] [place] [facility] [address] [id number], [place] [address] 14 Jun, 2009 [facility] [place] [facility] [address] [id number], [place] [address] 10 Jun, 2009 [facility] [address] [facility] [id number] [place] [address] Mar, [facility] [address] [facility] [id number], [place] [address] Jan, [facility] [address] [facility] [id number], [place] [address] Aug, IMMUNIZATIONS No Known Immunizations SOCIAL HISTORY Never Assessed REASON FOR VISIT Lyrica 04/28 PLAN OF CARE VITAL SIGNS MEDICATIONS Medication [...]
--- OUTSIDE RECORDS SUMMARY | 2018-11-13 11:44 | XMS REPORT ---
Author Author MATTHEW ACOSTA [facility] Address [address] [place] [address] Care Team Providers Care Painter Spray Name Role Phone MATTHEW ACOSTA Unavailable PROBLEMS Type Condition ICD9-CM Code AQI03-DQ Code Onset Dates Condition Status SNOMED Code Problem Borderline personality disorder F60.3 Active 53974428 Problem Post-traumatic stress disorder, chronic F43.12 Active 25051542 Problem Carpal tunnel syndrome of right wrist G56.01 Active [id number] Problem PAD (peripheral artery disease) I73.9 Active 792740125 Problem Anxiety F41.9 Active 60833162 Problem Cannabis use disorder, mild, abuse F12.10 Active 18602172 Problem Bipolar affective, depress, mod F31.32 Active 637145122 Problem Fibromyalgia M79.7 Active 847770964 Problem Cervical radiculopathy M54.12 Active 36572232 Problem CAD (coronary artery disease) I25.10 Active 60217701 Problem Depression F32.9 Active 30964753 Problem Back pain M54.9 Active 195257884 Problem Tobacco abuse Z72.0 Active 33353002 Problem Hyperlipidemia E78.5 Active 40955687 ALLERGIES No Information ENCOUNTERS Encounter Location Date Diagnosis [facility] [id number] [address] Jul, [facility] [id number], [place] [address] 8210 May, [facility] [id number] [place] [address] 10612- 8579 May, [facility] [id number] [address] Apr, Post-traumatic stress disorder, chronic F43.12 ; Bipolar affective, depress, mod F31.32 ; Borderline personality disorder F60.3 and Cannabis use disorder, mild, abuse F12.10 [address] [place] [address] 04358- 2938 Apr, Cervical radiculopathy M54.12 ; Back pain M54.9 ; Fibromyalgia M79.7 and High risk heterosexual behavior Z72.51 [place] [id number] [place] [address] 82413- 7181 Apr, [place] [address] 779591- 7411 Mar, Bipolar affective, depress, mod F31.32 ; Post-traumatic stress disorder, chronic F43.12 ; Borderline personality disorder F60.3 and Cannabis use disorder, mild, abuse F12.10 [place] [id number] [place] [address] 42358- 7417 Mar, Tobacco abuse Z72.0 [place] [address] 57957- 4670 Mar, [place] [id number] [place] [address] 32206- 6077 February, Fibromyalgia M79.7 [place] [id number] [place] [address] 75362- 4072 Jan, Post-traumatic stress disorder, chronic F43.12 ; Bipolar affective, depress, mod F31.32 ; Borderline personality disorder F60.3 and Cannabis use disorder, mild, abuse F12.10 [place] [id number] [place] [address] 56378- 0973 Jan, [address] [id number] [place] [address] 09037- 5469 Dec, Bipolar affective, depress, mod F31.32 ; Post-traumatic stress disorder, chronic F43.12 ; Borderline personality disorder F60.3 and Cannabis use disorder, mild, abuse F12.10 [place] [id number] [place] [address] 15117- 6007 Dec, Hoarseness R49.0 ; Bronchitis J40 ; PAD (peripheral artery disease) I73.9 and Tobacco abuse Z72.0 [place] [id number] [place] [address]- [address]69 Nov, Bipolar affective, depress, mod F31.32 ; Post-traumatic stress disorder, chronic F43.12 ; Borderline personality disorder F60.3 and Cannabis use disorder, mild, abuse F12.10 [address] [address] 405 Oct, Post-traumatic stress disorder, chronic F43.12 ; Bipolar affective, depress, mod F31.32 ; Borderline personality disorder F60.3 and Cannabis use disorder, mild, abuse F12.10 [place] [id number] [place] [address] Oct, Bipolar affective, depress, mod F31.32 ; Post-traumatic stress disorder, chronic F43.12 and Borderline personality disorder F60.3 [address] [address] 79890- 1904 Sep, Anxiety F41.9 [place] [address]36941- 9744 Aug, Bipolar affective, depress, mod F31.32 ; Post-traumatic stress disorder, chronic F43.12 and Borderline personality disorder F60.3 [place] [id number] [place] [address] 82005- 7744 Aug, Bipolar affective, depress, mod F31.32 ; Post-traumatic stress disorder, chronic F43.12 and Borderline personality disorder F60.3 [place] [id number] [place] [address] 28628- 3725 Aug, Fibromyalgia M79.7 ; Back pain M54.9 and Cervical radiculopathy M54.[address] 10227- 2247 Aug, Bipolar affective, depress, mod F31.32 and Post-traumatic stress disorder, chronic F43.12 [facility] [address], [place] [address] 5[address] Jul, Depression F32.9 ; Borderline personality disorder F60.3 and Bipolar affective, depress, mod F31.32 [address] [address], [place] [address]- 4368 Jul, Post-traumatic stress disorder, chronic F43.12 ; Bipolar affective, depress, mod F31.32 ; Borderline personality disorder F60.3 and Cannabis use disorder, mild, abuse F12.10 [address] [place] [address] [place] [address] 55552- 5562 Jul, Other long-term (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.899 [place] [id number] [place] [address] 74835- 6568 Jun, [place] [id number] [place] [address] 14220- 5357 Jun, Depression F32.9 ; Borderline personality disorder F60.3 and Bipolar affective, depress, mod F31.32 [place] [id number] [place] [address] 158731- 7353 Jun, Depression F32.9 and Borderline personality disorder F60.3 [place] [address] [place] [address] 23985- 7920 May, Post-traumatic stress disorder, chronic F43.12 [place] [address] [place] [address] 11584- 9288 May, Depression F32.9 and Borderline personality disorder F60.3 [place] [id number] [place] [address] Apr, Post-traumatic stress disorder, chronic F43.12 ; Bipolar affective, depress, mod F31.32 ; Borderline personality disorder F60.3 ; Other manager intermediate (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.899 and Cannabis use disorder, mild, abuse F12.10 [place] [id number] [place] [address] 10368- 3853 Apr, Depression F32.9 and Borderline personality disorder F60.3 [facility] [id number] [place] [address] 11841- 9411 Apr, Depression F32.9 and Borderline personality disorder F60.3 [facility] [id number] [place] [address] 09930- 3719 Mar, Depression F32.9 and Borderline personality disorder F60.3 [facility] [id number] [place] [address] 68115- 7540 February, Depression F32.9 and Borderline personality disorder F60.3 [facility] [id number] [place] [address] 91585- 8915 February, Back pain M54.9 [facility] [id number] [place] [address] 19863- 8016 February, Depression F32.9 and Borderline personality disorder F60.3 [facility] [id number] [place] [address] 38044- 3560 February, Post-traumatic stress disorder, chronic F43.12 ; Borderline personality disorder F60.3 and Bipolar affective disorder, depressed, mild F31.31 [facility] [address] [place] [address] 24923- 2571 February, [facility] [id number] [place] [address] 28146- 2017 February, Depression F32.9 and Borderline personality disorder F60.3 [facility] [address] [place] [address] 03607- 8010 Jan, [facility] [id number] [place] [address] 58865- 7540 Jan, Depression F32.9 and Borderline personality disorder F60.3 [facility] [id number] [place] [address] 30771- 1839 Jan, Acute lateral meniscus tear of right knee, initial encounter S83.281A [facility] [address] 41307- 4262 Jan, Depression F32.9 and Borderline personality disorder F60.3 [facility] [id number] [place] [address] 34227- 5260 Dec, Depression F32.9 and Borderline personality disorder F60.3 [place] [address] 53092- 0037 Dec, Depression F32.9 and Borderline personality disorder F60.3 [address] [address] 45921- 5470 28 Nov, 2016 Hyperlipidemia E78.5 ; Knee locking, right M23.91 and Carpal tunnel syndrome of right wrist G56.01 [place] [address] 68387- 0066 23 Nov, 2016 Bipolar affective, depress, mod F31.32 ; Post-traumatic stress disorder, chronic F43.12 and Borderline personality disorder F60.3 [place] [id number] [place] [address] 54366- 1165 16 Nov, 2016 Depression F32.9 and Borderline personality disorder F60.3 [place] [id number] [place] [address] 47676- 2420 Oct, Post-traumatic stress disorder, chronic F43.12 and Other long-term (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.899 [place] [id number] [place] [address] 86422- 2104 Oct, Nondisplaced fracture of distal end of right radius with routine healing, subsequent encounter S52.501D [place] [id number] [place] [address] 86299- 5756 Sep, [place] [address] 97779- 2904 Aug, Right wrist fracture, closed, initial encounter S62.101A [facility] [id number] [place] [address] 24588- 8828 Aug, [facility] [id number] [place] [address] 41498- 7526 Jul, Back pain M54.9 and Hyperlipidemia E78.5 [facility] [id number] [place] [address] 80141- 1051 Jul, Post-traumatic stress disorder, chronic F43.12 and Other manager intermediate (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.899 [facility] [id number] [place] [address] 72090- 9097 Apr, Bipolar affective, depress, mod F31.32 ; Post-traumatic stress disorder, chronic F43.12 and Other manager intermediate (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.899 [facility] [id number] [place] [address] 39392- 0751 Mar, [facility] [id number] [place] [address] 40462- 1316 Jan, Post-traumatic stress disorder, chronic F43.12 and Depression F32.9 [facility] [id number] [place] [address] 43582- 8303 Dec, [facility] [id number] [place] [address] 44942- 4656 Nov, Shoulder pain, left M25.512 and Bronchitis J40 [facility] [address] [place] [address] 18447- 3361 Sep, Hyperlipidemia E78.5 [facility] [id number] [place] [address] 83323- 1576 Sep, Hyperlipidemia E78.5 [facility] [id number] [place] [address] 95565- 9106 Sep, [facility] [id number] [place] [address] 91662- 1846 Sep, Back pain M54.9 ; CAD (coronary artery disease) I25.10 and Depression F32.9 [facility] [address] 90101- 3504 Sep, URI (upper respiratory infection) J06.9 ; Nausea & vomiting R11.2 and Tobacco abuse Z72.0 [facility] [address] 96708- 6614 Mar, Posttraumatic stress disorder 309.81 ; Major depressive disorder, recurrent episode, in partial remission 296.35 ; Nightmares associated with chronic post-traumatic stress disorder 307.47 ; Thoracic or lumbosacral neuritis or radiculitis, unspecified 724.4 ; Borderline personality disorder 301.83 and High risk medication use V58.69 [facility] [address] 41228- 5014 Jan, [facility] [address] 35052- 3891 Jan, [facility] [address] 46418- 4718 Dec, [facility] [address] 86856- 9761 Dec, [facility] [address] 00357- 3839 Sep, [facility] [address] 74817- 9497 Sep, [facility] [address] 28999- 8104 Sep, [facility] [address] 94773- 2076 Sep, [facility] [address] 11875- 7149 Sep, [facility] [address] 45361- 1758 Jul, [facility] [place] [facility] [address] [id number] [place] [address]- 3658 Jul, [facility] [place] [facility] [address] [id number] [place] 8699 Jul, [facility] [place] [facility] [address] [id number] [place] [address]- 2314 Jul, [facility] [place] [facility] [address] [id number] [place] [address]- 8852 Jul, [facility] [place] [facility] [address] [id number] [place] [address]- 7857 Jul, [facility] [place] [facility] [address] [id number] [place] [address]- 5927 Jul, [facility] [place] [facility] [address] [id number] [place] [address]- 8360 Jul, [facility] [place] [facility] [address] [id number] [place] [address]- 6152 May, [facility] [place] [facility] [address] [id number] [place] [address]- 6534 May, [facility] [place] [facility] [address] [id number] [place] [address]- 8452 May, [facility] [place] [facility] [address] [id number] [address]- 8441 May, [facility] [place] [facility] [address] [id number], [place] [address]- 2271 May, [facility] [place] [facility] [address] [id number] [place] [address]- 6562 May, [facility] [place] [facility] [address] [id number] [place] [address]- 5491 Mar, [facility] [place] [facility] [address] [id number] [place] [address]- 8953 Mar, [facility] [place] [facility] [address] [id number] [place] [address]- 1254 February, [facility] [address] [id number] [place] [address]- 1632 February, [facility] [address] [id number] [place] [address]- 8232 February, [facility] [address] [id number] [place] [address]- 9268 February, [facility] [address] [id number] [place] [address]- 8290 February, [facility] [address] [id number] [place] [address]- 0416 February, [facility] [address] [id number] [place] [address]- 8367 February, [facility] [address] [id number] [place] [address]- 9455 Jan, [facility] [address] [id number] [place] [address]- 4367 Jan, [facility] [address] [id number] [place] [address]- 8015 Jan, [facility] [address] [id number] [place] [address]- 4891 Jan, [facility] [place] [facility] [address] [id number] [place] [address]- 0045 Dec, [facility] [address] [id number] [place] [address]- 4030 Dec, [facility] [place] [facility] [address] [id number] [place] [address]- 4673 Dec, [facility] [place] [facility] [address] [id number] [place] [address]- 7123 Dec, [facility] [place] [facility] [address] [id number] [place] [address]- 3457 Nov, [facility] [place] [facility] [address] [id number] [place] [address]- 8683 Nov, [facility] [place] [facility] [address] [id number] [place] [address]- 4536 Nov, [facility] [place] [facility] [address] [id number] [place] [address]- 0564 Nov, [facility] [place] [facility] [address] [id number] [place] [address]- 9630 Nov, [facility] [place] [facility] [address] [id number] [place] [address]- 9849 Nov, [facility] [place] [facility] [address] [id number] [place] [address]- 4835 Nov, [facility] [place] [facility] [address] [id number] [place] [address]- 0301 Nov, [facility] [place] [facility] [address] [id number] [place] [address]- 8770 Oct, [facility] [place] [facility] [address] [id number] [place] [address]- 3614 Oct, [facility] [place] [facility] [address] [id number] [place] [address]- 9114 Oct, [facility] [place] [facility] [address] [id number] [place] [address]- 7463 Oct, [facility] [place] [facility] [address] [id number] [place] [address]- 2872 Oct, [facility] [place] [facility] [address] [id number] [place] [address]- 2518 Oct, [facility] [place] [facility] [address] [id number] [place] [address]- 9736 Oct, [facility] [place] [facility] [address] [id number] [place] [address]- 4302 Oct, [facility] [place] [facility] [address] [id number] [place] [address]- 0774 Oct, [facility] [address] [id number] [place] [address]- 7335 Oct, [facility] [address] [id number] [place] [address]- 6390 Oct, [facility] [address] [id number] [place] [address]- 9298 Aug, [facility] [address] [id number] [place] [address]- 5117 Aug, [facility] [address] [id number] [place] [address], [place] [address]- 7775 Jul, [facility] [address] [id number] [place] [address]- 1948 Jul, [facility] [address] [id number] [place] [address]- 8742 Jul, [facility] [address] [id number] [place] [address]- 9158 Jul, [facility] [address] [facility] [id number] [place] [address]- 9353 Jun, [facility] [address] [facility] [id number] [place] [address]- 0569 Jun, [facility] [address] [id number] [place] [address]- 3888 Jan, [facility] [address] [id number] [place] [address]- 2015 Oct, [facility] [place] [facility] [address] [id number] [place] [address]- 2118 Sep, [facility] [place] [facility] [address] [id number] [place] [address]- 4873 Sep, [facility] [address] [facility] [id number] [place] [address]- 0791 Sep, [facility] [place] [facility] [address] [id number] [place] [address]- 9193 Sep, [facility] [place] [facility] [address] [id number] [place] [address]- 3533 Aug, [facility] [place] [facility] [address] [id number] [place] [address]- 8700 Aug, [facility] [place] [facility] [address] [id number] [place] [address]- 3106 Aug, [facility] [place] [facility] [address] [id number] [place] [address]- 6383 Aug, [facility] [place] [facility] [address] [id number] [place] [address]- 9025 Jul, [facility] [place] [facility] [address] [id number] [place] [address]- 9185 Jul, [facility] [place] [facility] [address] [id number] [place] [address]- 6258 Jul, [facility] [place] [facility] [address] [facility] [id number] [place] [address]- 0871 Jul, [facility] [place] [facility] [address] [facility] [id number] [address]- 4450 Jul, [facility] [place] [facility] [address] [facility] [id number], [place] [address]- 7697 Jun, [facility] [place] [facility] [address] [id number], [place] [address]- 4972 Jun, [facility] [place] [facility] [address] [id number], [place] [address] Jun, [facility] [place] [facility] [address] [id number], [place] [address] May, [facility] [place] [facility] [address] [facility] [id number], [place] [address] May, [facility] [place] [facility] [address] [id number], [place] [address] Apr, [facility] [address] [id number] [place] [address] Apr, [facility] [place] [facility] [address] [id number] [place] [address] Apr, [facility] [place] [facility] [address] [id number] [place] [address] Apr, [facility] [place] [facility] [address] [id number] [place] [address] Mar, [facility] [place] [facility] [address] [id number] [place] [address] Mar, [facility] [place] [facility] [address] [id number] [place] [address] Mar, [facility] [address] [id number] [place] [address] February, [facility] [place] [facility] [address] [id number] [place] [address] February, [facility] [place] [facility] [address] [id number] [place] [address] February, [facility] [place] [facility] [address] [id number] [place] [address] February, [facility] [place] [facility] [address] [id number] [place] [address] February, [facility] [place] [facility] [address] [id number] [place] [address] Jan, [facility] [place] [facility] [address] [id number] [place] [address] Jan, [facility] [place] [facility] [address] [id number] [place] [address] Jan, [facility] [place] [facility] [address] [id number] [place] [address] Dec, [facility] [place] [facility] [address] [id number] [place] [address] 30 Dec, 2011 [facility] [place] [facility] [address] [id number] [place] [address] Dec, [facility] [place] [facility] [address] [id number] [place] [address] 29 Nov, 2011 [facility] [place] [facility] [address] [id number] [place] [address] 16 Nov, 2011 [facility] [place] [facility] [address] [id number] [place] [address] 07 Nov, 2011 [facility] [place] [facility] [address] [id number] [place] [address] Nov, [facility] [place] [facility] [address] [facility] [id number] [place] [address] Oct, [facility] [place] [facility] [address] [id number] [place] [address] Oct, [facility] [place] [facility] [address] [id number] [place] [address] Sep, [facility] [place] [facility] [address] [id number] [place] [address] 30 Sep, 2011 [facility] [place] [facility] [address] [id number] [place] [address] 14 Sep, 2011 [facility] [place] [facility] [address] [id number] [place] [address] 05 Sep, 2011 [facility] [place] [facility] [address] [id number] [place] [address] 28 Aug, 2011 [facility] [place] [facility] [address] [id number] [place] [address] 10 Aug, 2011 [facility] [place] [facility] [address] [id number] [place] [address] 08 Aug, 2011 [facility] [place] [facility] [address] [id number] [place] [address] Jul, [facility] [place] [facility] [address] [id number] [place] [address] Jul, [facility] [place] [facility] [address] [id number] [place] [address] Jul, [facility] [place] [facility] [address] [id number] [place] [address] May, [facility] [place] [facility] [address] [id number] [place] [address] February, [facility] [place] [facility] [address] [id number] [place] [address] Nov, [facility] [place] [facility] [address] [id number] [place] [address] 14 Oct, 2010 [facility] [place] [facility] [address] [id number] [place] [address] Oct, [facility] [place] [facility] [address] [id number] [place] [address] 22 Sep, 2010 [facility] [place] [facility] [address] [id number] [place] [address] 17 Sep, 2010 [facility] [place] [facility] [address] [id number] [place] [address] 17 Sep, 2010 [facility] [place] [facility] [address] [id number] [place] [address] 16 Sep, 2010 [facility] [place] [facility] [address] [id number] [place] [address] 10 Sep, 2010 [facility] [place] [facility] [address] [id number] [place] [address] 10 Sep, 2010 [facility] [place] [facility] [address] [id number] [place] [address] 29 Aug, 2010 [facility] [place] [facility] [address] [id number] [place] [address] Aug, [facility] [place] [facility] [address] [id number] [place] [address] 18 Aug, 2010 [facility] [address] [id number] [place] [address] 17 Aug, 2010 [facility] [place] [facility] [address] [id number] [place] [address] 16 Aug, 2010 [facility] [address] [id number] [place] [address] 25 Jul, 2010 [facility] [address] [id number] [place] [address] 16 Jun, 2010 [facility] [address] [id number] [place] [address], [place] [address] February, [facility] [address] [id number] [place] [address] Oct, [facility] [address] [id number] [place] [address] Sep, [facility] [address] [id number] [place] [address] 24 Aug, 2009 [facility] [address] [facility] [id number] [place] [address] Aug, [facility] [address] [facility] [id number] [place] [address] 02 Aug, 2009 [facility] [address] [id number] [place] [address] 20 Jul, 2009 [facility] [address] [id number] [address] 15 Jul, 2009 [facility] [place] [facility] [address] [id number] [place] [address] 15 Jul, 2009 [facility] [place] [facility] [address] [id number] [place] [address] 14 Jun, 2009 [facility] [place] [facility] [address] [id number], [place] [address] Jun, [facility] [address] [facility] [id number] [place] [address] Mar, [facility] [address] [facility] [id number], [place] [address] Jan, [facility] [address] [facility] [id number], [place] [address] Aug, IMMUNIZATIONS No Known Immunizations SOCIAL HISTORY Never Assessed REASON FOR VISIT f/u PLAN OF CARE Activity Details Follow Up prn Reason: VITAL SIGNS MEDICATIONS Unknown Medications RESULTS No Results PROCEDURES Procedure Date Ordered Result Body Site Psychotherapy, patient &/family, 30 minutes, established patient April 14, 2018 INSTRUCTIONS MEDICATIONS ADMINISTERED No Known Medications [...]
--- OUTSIDE RECORDS SUMMARY | 2018-11-13 11:45 | XMS REPORT ---
Author Author MARIMAR JONES Organization [facility] Address [address] [place] [address] Care Team Providers Care Psychiatric Secretary Name Role Phone MARIMAR JONES Unavailable PROBLEMS Type Condition ICD9-CM Code [id number] Code Onset Dates Condition Status SNOMED Code Problem Borderline personality disorder F60.3 Active 66251838 Problem Post-traumatic stress disorder, chronic F43.12 Active 08733389 Problem Carpal tunnel syndrome of right wrist G56.01 Active 033189041209883 Problem PAD (peripheral artery disease) I73.9 Active 192813945 Problem Anxiety F41.9 Active 11332588 Problem Cannabis use disorder, mild, abuse F12.10 Active 49613333 Problem Bipolar affective, depress, mod F31.32 Active 466516301 Problem Fibromyalgia M79.7 Active 087456723 Problem Cervical radiculopathy M54.12 Active 56144979 Problem CAD (coronary artery disease) I25.10 Active 68570719 Problem Depression F32.9 Active 96027740 Problem Back pain M54.9 Active 788730811 Problem Tobacco abuse Z72.0 Active 70118520 Problem Hyperlipidemia E78.5 Active 39449942 ALLERGIES No Information ENCOUNTERS Encounter Location Date Diagnosis [facility] [id number] [address] Jul, [facility] [address] [id number], [place] [address] May, [facility] [id number] [place] [address] 85124- 7282 May, [facility] [address] [place] [address] 56684- 8709 Apr, Post-traumatic stress disorder, chronic F43.12 ; Bipolar affective, depress, mod F31.32 ; Borderline personality disorder F60.3 and Cannabis use disorder, mild, abuse F12.10 [address] [place] [address] 28192- 5887 Apr, Cervical radiculopathy M54.12 ; Back pain M54.9 ; Fibromyalgia M79.7 and High risk heterosexual behavior Z72.51 [id number] [place] [address] 02895- 9144 Apr, [id number] [place] [address] 462551- 2643 Mar, Bipolar affective, depress, mod F31.32 ; Post-traumatic stress disorder, chronic F43.12 ; Borderline personality disorder F60.3 and Cannabis use disorder, mild, abuse F12.10 [id number] [place] [address] 69665- 3973 Mar, Tobacco abuse Z72.0 [id number] [place] [address] 59565- 7561 Mar, [id number] [place] [address] 35283- 1372 February, Fibromyalgia M79.7 [id number] [place] [address] 251958- 8315 Jan, Post-traumatic stress disorder, chronic F43.12 ; Bipolar affective, depress, mod F31.32 ; Borderline personality disorder F60.3 and Cannabis use disorder, mild, abuse F12.10 [address] [place] [address] 63218- 7921 Jan, [address] [place] [address] 72432- 1615 Dec, Bipolar affective, depress, mod F31.32 ; Post-traumatic stress disorder, chronic F43.12 ; Borderline personality disorder F60.3 and Cannabis use disorder, mild, abuse F12.10 [address] [place] [address] 75539- 1776 20 Mar, 2018 Hoarseness R49.0 ; Bronchitis J40 ; PAD (peripheral artery disease) I73.9 and Tobacco abuse Z72.0 [address] [place] [address] Nov, Bipolar affective, depress, mod F31.32 ; Post-traumatic stress disorder, chronic F43.12 ; Borderline personality disorder F60.3 and Cannabis use disorder, mild, abuse F12.10 [address] 135819- 467 Oct, Post-traumatic stress disorder, chronic F43.12 ; Bipolar affective, depress, mod F31.32 ; Borderline personality disorder F60.3 and Cannabis use disorder, mild, abuse F12.10 [address] 61998- 566 Oct, Bipolar affective, depress, mod F31.32 ; Post-traumatic stress disorder, chronic F43.12 and Borderline personality disorder F60.3 [address] [id number]- 3381 Sep, Anxiety F41.9 [address] 135812- 4730 Aug, Bipolar affective, depress, mod F31.32 ; Post-traumatic stress disorder, chronic F43.12 and Borderline personality disorder F60.3 [id number] [place] [address] 29332- 9796 Aug, Bipolar affective, depress, mod F31.32 ; Post-traumatic stress disorder, chronic F43.12 and Borderline personality disorder F60.3 [id number] [place] [address] 48397- 9863 Aug, Fibromyalgia M79.7 ; Back pain M54.9 and Cervical radiculopathy M54.12 [id number] [place] [address] 28943- 4298 Aug, Bipolar affective, depress, mod F31.32 and Post-traumatic stress disorder, chronic F43.12 [facility] [address] [place] [address] 91955- 8427 Jul, Depression F32.9 ; Borderline personality disorder F60.3 and Bipolar affective, depress, mod F31.32 [facility] [address] [place] [address] 62396- 1733 Jul, Post-traumatic stress disorder, chronic F43.12 ; Bipolar affective, depress, mod F31.32 ; Borderline personality disorder F60.3 and Cannabis use disorder, mild, abuse F12.10 [address] [place] [address] 18325- 6058 Jul, Other senior living (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.899 [id number] [place] [address] 42402- 5842 Jun, [id number] [place] [address] 927535- 7619 Jun, Depression F32.9 ; Borderline personality disorder F60.3 and Bipolar affective, depress, mod F31.32 [address] [id number] [place] [address] 06892- 2190 Jun, Depression F32.9 and Borderline personality disorder F60.3 [id number] [place] [address] 58573- 0720 May, Post-traumatic stress disorder, chronic F43.12 [id number] [place] [address] 37504- 3888 May, Depression F32.9 and Borderline personality disorder F60.3 [id number] [place] [address] 08864- 2757 Apr, Post-traumatic stress disorder, chronic F43.12 ; Bipolar affective, depress, mod F31.32 ; Borderline personality disorder F60.3 ; Other senior living (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.899 and Cannabis use disorder, mild, abuse F12.10 [address] [id number] [place] [address] 99959- 3172 Apr, Depression F32.9 and Borderline personality disorder F60.3 [facility] [id number] [place] [address] 63926- 9320 Apr, Depression F32.9 and Borderline personality disorder F60.3 [facility] [id number] [place] [address] 18906- 9958 Mar, Depression F32.9 and Borderline personality disorder F60.3 [facility] [id number] [place] [address] 42829- 7833 February, Depression F32.9 and Borderline personality disorder F60.3 [facility] [id number] [place] [address] 85332- 0636 February, Back pain M54.9 [facility] [id number] [place] [address] 58911- 3011 February, Depression F32.9 and Borderline personality disorder F60.3 [facility] [id number] [place] [address] 95265- 9671 February, Post-traumatic stress disorder, chronic F43.12 ; Borderline personality disorder F60.3 and Bipolar affective disorder, depressed, mild F31.31 [facility] [id number] [place] [address] 20537- 7204 February, [facility] [id number] [place] [address] 72621- 3991 February, Depression F32.9 and Borderline personality disorder F60.3 [facility] [id number] [place] [address] 48800- 0674 Jan, [facility] [id number] [place] [address] 50134- 0338 Jan, Depression F32.9 and Borderline personality disorder F60.3 [facility] [address] [place] [address] 38457- 5146 Jan, Acute lateral meniscus tear of right knee, initial encounter S83.281A [facility] [id number] [place] [address] 06949- 3195 Jan, Depression F32.9 and Borderline personality disorder F60.3 [facility] [id number] [place] [address] 45697- 8142 Dec, Depression F32.9 and Borderline personality disorder F60.3 [address] 81449- 5010 Dec, Depression F32.9 and Borderline personality disorder F60.3 [id number] [place] [address] 06570- 6089 28 Nov, 2016 Hyperlipidemia E78.5 ; Knee locking, right M23.91 and Carpal tunnel syndrome of right wrist G56.01 [id number] [place] [address] 37882- 4110 23 Nov, 2016 Bipolar affective, depress, mod F31.32 ; Post-traumatic stress disorder, chronic F43.12 and Borderline personality disorder F60.3 [id number] [place] [address] 58393- 2864 16 Nov, 2016 Depression F32.9 and Borderline personality disorder F60.3 [id number] [place] [address] 56916- 5851 Oct, Post-traumatic stress disorder, chronic F43.12 and 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 [id number] [place] [address] 99559- 5254 Oct, Nondisplaced fracture of distal end of right radius with routine healing, subsequent encounter S52.501D [id number] [place] [address] 40787- 5890 Sep, [facility] [id number] [place] [address] 44730- 6931 Aug, Right wrist fracture, closed, initial encounter S62.101A [facility] [address] [place] [address] 32568- 6968 Aug, [facility] [id number] [place] [address] 10431- 5386 Jul, Back pain M54.9 and Hyperlipidemia E78.5 [facility] [id number] [place] [address] 18888- 7746 Jul, Post-traumatic stress disorder, chronic F43.12 and 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 [facility] [id number] [place] [address] 55028- 2176 Apr, Bipolar affective, depress, mod F31.32 ; Post-traumatic stress disorder, chronic F43.12 and Other senior living (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.899 [facility] [id number] [place] [address] 01982- 2566 Mar, [facility] [id number] [place] [address] 53295- 4690 Jan, Post-traumatic stress disorder, chronic F43.12 and Depression F32.9 [facility] [id number] [place] [address] 85489- 9802 Dec, [facility] [id number] [place] [address] 98329- 6690 Nov, Shoulder pain, left M25.512 and Bronchitis J40 [facility] [id number] [place] [address] 06102- 0126 Sep, Hyperlipidemia E78.5 [facility] [id number] [place] [address] 77401- 9126 Sep, Hyperlipidemia E78.5 [facility] [id number] [place] [address] 68519 2546 Sep, [facility] [id number] [place] [address] 39727- 3804 Sep, Back pain M54.9 ; CAD (coronary artery disease) I25.10 and Depression F32.9 [facility] [address] 61055- 4050 Sep, URI (upper respiratory infection) J06.9 ; Nausea & vomiting R11.2 and Tobacco abuse Z72.0 [facility] [address] 58829- 9721 Mar, Posttraumatic stress disorder 309.81 ; Major depressive disorder, recurrent episode, in partial remission 296.35 ; Nightmares associated with chronic post-traumatic stress disorder 307.47 ; Thoracic or lumbosacral neuritis or radiculitis, unspecified 724.4 ; Borderline personality disorder 301.83 and High risk medication use V58.69 [facility] [address] 84539- 9391 14 Jan, 2015 [facility] [address] 03522- 1639 Jan, [facility] [address] 56229- 6383 Dec, [facility] [address] 53841- 9526 Dec, [facility] [id number] [place] [address] 15797- 0164 Sep, [facility] [address] 72901- 2800 Sep, [facility] [id number] [place] [address] 44492- 6953 Sep, [facility] [address] 40301- 6509 Sep, [facility] [id number] [place] [address] 83415- 9780 Sep, [facility] [address] 76414- 6540 Jul, [facility] [place] [facility] [address] [id number] [place] [address]- 5327 Jul, [facility] [place] [facility] [address] [id number] [place] [address]- 9733 Jul, [facility] [place] [facility] [address] [id number] [place] [address]- 4612 Jul, [facility] [place] [facility] [address] [id number] [place] [address]- 5750 Jul, [facility] [place] [facility] [address] [id number] [place] [address]- 6606 Jul, [facility] [place] [facility] [address] [id number] [place] [address]- 1759 Jul, [facility] [place] [facility] [address] [id number] [place] [address]- 5515 Jul, [facility] [place] [facility] [address] [id number] [place] [address]- 0236 May, [facility] [place] [facility] [address] [id number] [place] [address]- 7646 May, [facility] [place] [facility] [address] [id number] [place] [address]- 8792 May, [facility] [place] [facility] [address] [id number] [address]- 5889 May, [facility] [place] [facility] [address] [id number], [place] [address]- 7978 May, [facility] [place] [facility] [address] [id number] [place] [address]- 4949 May, [facility] [place] [facility] [address] [id number] [place] [address]- 1175 Mar, [facility] [place] [facility] [address] [id number] [place] [address]- 6853 Mar, [facility] [place] [facility] [address] [id number] [place] [address]- 9850 February, [facility] [place] [facility] [address] [id number] [place] [address]- 7771 February, [facility] [place] [facility] [address] [id number] [place] [address]- 0322 February, [facility] [place] [facility] [address] [id number] [place] [address]- 1240 February, [facility] [place] [facility] [address] [id number] [place] [address]- 2238 February, [facility] [place] [facility] [address] [id number] [place] [address]- 4123 February, [facility] [place] [facility] [address] [id number] [place] [address]- 2430 February, [facility] [place] [facility] [address] [id number] [place] [address]- 1852 Jan, [facility] [place] [facility] [address] [id number] [place] [address]- 8973 Jan, [facility] [place] [facility] [address] [id number] [place] [address]- 2134 Jan, [facility] [place] [facility] [address] [id number] [place] [address]- 8968 Jan, [facility] [place] [facility] [address] [id number] [place] [address]- 2075 Dec, [facility] [place] [facility] [address] [id number] [place] [address]- 6109 Dec, [facility] [place] [facility] [address] [id number] [place] [address]- 2068 Dec, [facility] [place] [facility] [address] [id number] [place] [address]- 3024 Dec, [facility] [place] [facility] [address] [id number] [place] [address]- 7269 Nov, [facility] [place] [facility] [address] [id number] [place] [address]- 3573 Nov, [facility] [place] [facility] [address] [id number] [place] [address]- 0706 Nov, [facility] [place] [facility] [address] [id number] [place] [address]- 9313 Nov, [facility] [place] [facility] [address] [id number] [place] [address]- 7769 Nov, [facility] [place] [facility] [address] [id number] [place] [address]- 1063 Nov, [facility] [place] [facility] [address] [id number] [place] [address]- 5023 Nov, [facility] [place] [facility] [address] [id number] [place] [address]- 8250 Nov, [facility] [place] [facility] [address] [id number] [place] [address]- 5226 Oct, [facility] [place] [facility] [address] [id number] [place] [address]- 4564 Oct, [facility] [place] [facility] [address] [id number] [place] [address]- 1237 Oct, [facility] [place] [facility] [address] [id number] [place] [address]- 9902 Oct, [facility] [place] [facility] [address] [id number], [place] [address]- 4725 Oct, [facility] [place] [facility] [address] [id number] [place] [address]- 9734 Oct, [facility] [place] [facility] [address] [id number] [place] [address]- 7214 Oct, [facility] [place] [facility] [address] [id number] [place] [address]- 8590 Oct, [facility] [place] [facility] [address] [id number] [place] [address]- 6759 13 Oct, 2013 [facility] [address] [id number] [place] [address]- 9134 Oct, [facility] [place] [facility] [address] [id number] [place] [address]- 2064 Oct, [facility] [address] [id number] [place] [address]- 9057 Aug, [facility] [place] [facility] [address] [id number] [place] [address]- 6529 Aug, [facility] [place] [facility] [address] [id number] [place] [address]- 3415 Jul, [facility] [place] [facility] [address] [id number] [place] [address]- 7942 Jul, [facility] [address] [id number] [place] [address]- 9095 Jul, [facility] [place] [facility] [address] [id number] [place] [address]- 7576 Jul, [facility] [place] [facility] [address] [id number] [place] [address]- 5651 Jun, [facility] [place] [facility] [address] [id number] [place] [address]- 7095 Jun, [facility] [place] [facility] [address] [id number] [place] [address]- 6098 Jan, [facility] [place] [facility] [address] [id number] [place] [address]- 9302 Oct, [facility] [place] [facility] [address] [id number] [place] [address]- 7643 Sep, [facility] [place] [facility] [address] [id number] [place] [address]- 9290 Sep, [facility] [place] [facility] [address] [id number] [place] [address]- 3034 Sep, [facility] [place] [facility] [address] [id number] [place] [address]- 2498 Sep, [facility] [place] [facility] [address] [id number] [place] [address]- 7602 Aug, [facility] [place] [facility] [address] [id number] [place] [address]- 0630 Aug, [facility] [place] [facility] [address] [id number] [place] [address]- 1466 Aug, [facility] [place] [facility] [address] [id number] [place] [address]- 0903 Aug, [facility] [place] [facility] [address] [id number] [place] [address]- 2528 Jul, [facility] [place] [facility] [address] [id number] [place] [address]- 3076 Jul, [facility] [place] [facility] [address] [id number] [place] [address]- 4982 Jul, [facility] [place] [facility] [address] [id number] [place] [address]- 8486 Jul, [facility] [place] [facility] [address] [id number] [place] [address]- 1946 Jul, [facility] [place] [facility] [address] [id number] [place] [address]- 3765 Jun, [facility] [place] [facility] [address] [id number] [place] [address]- 1241 Jun, [facility] [place] [facility] [address] [id number] [place] [address]- 8740 Jun, [facility] [place] [facility] [address] [id number] [place] [address]- 3395 May, [facility] [place] [facility] [address] [id number] [place] [address]- 0299 May, [facility] [place] [facility] [address] [id number] [place] [address]- 1946 Apr, [facility] [place] [facility] [address] [id number] [place] [address]- 1948 Apr, [facility] [place] [facility] [address] [id number] [place] [address]- 7306 Apr, [facility] [place] [facility] [address] [id number] [place] [address]- 8290 Apr, [facility] [place] [facility] [address] [id number] [place] [address]- 2383 Mar, [facility] [place] [facility] [address] [id number] [place] [address]- 2548 Mar, [facility] [place] [facility] [address] [id number] [place] [address]- 4384 Mar, [facility] [place] [facility] [address] [id number] [place] [address]- 9869 February, [facility] [place] [facility] [address] [id number] [place] [address]- 6455 February, [facility] [place] [facility] [address] [id number] [place] [address]- 4167 February, [facility] [place] [facility] [address] [id number] [place] [address]- 8185 February, [facility] [place] [facility] [address] [id number] [place] [address]- 1496 February, [facility] [place] [facility] [address] [id number] [place] [address]- 3070 Jan, [facility] [place] [facility] [address] [id number] [place] [address] Jan, [facility] [place] [facility] [address] [id number] [place] [address] Jan, [facility] [place] [facility] [address] [id number] [place] [address] Dec, [facility] [place] [facility] [address] [id number] [place] [address] 30 Dec, 2011 [facility] [address] [id number] [place] [address] Dec, [facility] [place] [facility] [address] [id number] [place] [address] 29 Nov, 2011 [facility] [place] [facility] [address] [id number] [place] [address] 16 Nov, 2011 [facility] [place] [facility] [address] [id number] [place] [address] Nov, [facility] [place] [facility] [address] [id number] [place] [address] Nov, [facility] [place] [facility] [address] [facility] [id number] [place] [address] Oct, [facility] [place] [facility] [address] [facility] [id number] [place] [address] Oct, [facility] [place] [facility] [address] [id number] [place] [address] Sep, [facility] [place] [facility] [address] [facility] [id number] [place] [address] Sep, [facility] [place] [facility] [address] [facility] [id number] [place] [address] 14 Sep, 2011 [facility] [place] [facility] [address] [facility] [id number] [place] [address]46 05 Sep, 2011 [facility] [place] [facility] [address] [id number] [place] [address] 254 Aug, [facility] [place] [facility] [address] [facility] [id number] [place] [address]46 10 Aug, 2011 [facility] [place] [facility] [address] [facility] [id number] [place] [address] 08 Aug, 2011 [facility] [place] [facility] [address] [facility] [id number] [place] [address] Jul, [facility] [place] [facility] [address] [id number] [place] [address] Jul, [facility] [place] [facility] [address] [id number] [place] [address] Jul, [facility] [place] [facility] [address] [id number] [place] [address] May, [facility] [place] [facility] [address] [id number] [place] [address] February, [facility] [place] [facility] [address] [id number] [place] [address] Nov, [facility] [place] [facility] [address] [id number] [place] [address] 14 Oct, 2010 [facility] [place] [facility] [address] [id number] [place] [address] Oct, [facility] [place] [facility] [address] [id number] [place] [address] 22 Sep, 2010 [facility] [place] [facility] [address] [id number] [place] [address] 17 Sep, 2010 [facility] [place] [facility] [address] [id number] [place] [address] 17 Sep, 2010 [facility] [place] [facility] [address] [id number] [place] [address] 16 Sep, 2010 [facility] [place] [facility] [address] [id number] [place] [address] 10 Sep, 2010 [facility] [place] [facility] [address] [id number] [place] [address] 10 Sep, 2010 [facility] [place] [facility] [address] [id number] [place] [address] 29 Aug, 2010 [facility] [place] [facility] [address] [id number] [place] [address] 23 Aug, 2010 [facility] [place] [facility] [address] [id number] [place] [address] 18 Aug, 2010 [facility] [place] [facility] [address] [id number] [place] [address] 17 Aug, 2010 [facility] [place] [facility] [address] [id number] [place] [id number] 16 Aug, 2010 [facility] [place] [facility] [address] [id number] [place] [address] 2542 25 Jul, 2010 [facility] [place] [facility] [address] [id number] [place] [address] 2540 16 Jun, 2010 [facility] [place] [facility] [address] [id number] [place] [address], [place] [address] February, [facility] [place] [facility] [address] [id number] [place] [address] Oct, [facility] [place] [facility] [address] [facility] [id number] [place] [address] Sep, [facility] [place] [facility] [address] [id number] [place] [address] 24 Aug, 2009 [facility] [place] [facility] [address] [id number] [place] [address] 254 03 Aug, 2009 [facility] [place] [facility] [address] [facility] [id number], [place] [address] 02 Aug, 2009 [facility] [place] [facility] [address] [id number] [place] [address] 2542 20 Jul, 2009 [facility] [place] [facility] [address] [id number], [place] [address] 15 Jul, 2009 [facility] [place] [facility] [address] [id number] [place] [address] 2548 15 Jul, 2009 [facility] [place] [facility] [address] [id number], [place] [address] 14 Jun, 2009 [facility] [place] [facility] [address] [id number], [place] [address] 10 Jun, 2009 [facility] [address] [facility] [id number] [place] [address] Mar, [facility] [address] [facility] [id number], [place] [address] Jan, [facility] [address] [facility] [id number], [place] [address] Aug, IMMUNIZATIONS No Known Immunizations SOCIAL HISTORY Never Assessed REASON FOR VISIT PFT-[facility] 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
--- OUTSIDE RECORDS SUMMARY | 2018-11-13 11:45 | XMS REPORT ---
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7 Active 192581247 Problem Cervical radiculopathy M54.12 Active 74044543 Problem CAD (coronary artery disease) I25.10 Active 36798557 Problem Depression F32.9 Active 33991891 Problem Back pain M54.9 Active 150640904 Problem Tobacco abuse Z72.0 Active 79308921 Problem Hyperlipidemia E78.5 Active 34636567 ALLERGIES No Information ENCOUNTERS Encounter Location Date Diagnosis [facility] [address] [id number] [address] Jul, [facility] [address] [id number], [place] [address] 2727 May, [facility] [id number] [place] [address] 00891- 3250 May, [facility] [id number] [place] [address] 10459- 4962 Apr, Post-traumatic stress disorder, chronic F43.12 ; Bipolar affective, depress, mod F31.32 ; Borderline personality disorder F60.3 and Cannabis use disorder, mild, abuse F12.10 [address] [id number] [place] [address] 23736- 6408 Apr, Cervical radiculopathy M54.12 ; Back pain M54.9 ; Fibromyalgia M79.7 and High risk heterosexual behavior Z72.51 [place] [id number] [place] [address] 71349- 1593 Apr, [place] [id number] [place] [address] 985218- 1300 Mar, Bipolar affective, depress, mod F31.32 ; Post-traumatic stress disorder, chronic F43.12 ; Borderline personality disorder F60.3 and Cannabis use disorder, mild, abuse F12.10 [place] [id number] [place] [address] 64268- 8132 Mar, Tobacco abuse Z72.0 [id number] [place] [address] 14559- 1279 Mar, [place] [id number] [place] [address] 55993- 8655 February, Fibromyalgia M79.7 [address] [id number] [place] [address] 409590- 2831 Jan, Post-traumatic stress disorder, chronic F43.12 ; Bipolar affective, depress, mod F31.32 ; Borderline personality disorder F60.3 and Cannabis use disorder, mild, abuse F12.10 [place] [id number] [place] [address] 53600- 3506 Jan, [id number] [place] [address] 90867- 0383 Dec, Bipolar affective, depress, mod F31.32 ; Post-traumatic stress disorder, chronic F43.12 ; Borderline personality disorder F60.3 and Cannabis use disorder, mild, abuse F12.10 [place] [id number] [place] [address] 02187- 2951 20 Mar, 2018 Hoarseness R49.0 ; Bronchitis J40 ; PAD (peripheral artery disease) I73.9 and Tobacco abuse Z72.0 [address] [address] [place] [address]85 Nov, Bipolar affective, depress, mod F31.32 ; Post-traumatic stress disorder, chronic F43.12 ; Borderline personality disorder F60.3 and Cannabis use disorder, mild, abuse F12.10 [place] [address] 811721- 082 Oct, Post-traumatic stress disorder, chronic F43.12 ; Bipolar affective, depress, mod F31.32 ; Borderline personality disorder F60.3 and Cannabis use disorder, mild, abuse F12.10 [place] [address] [address]61- 493 Oct, Bipolar affective, depress, mod F31.32 ; Post-traumatic stress disorder, chronic F43.12 and Borderline personality disorder F60.3 [place] [address] [id number]- 9957 Sep, Anxiety F41.9 [place] [address] 811728- 7418 Aug, Bipolar affective, depress, mod F31.32 ; Post-traumatic stress disorder, chronic F43.12 and Borderline personality disorder F60.3 [place] [id number] [place] [address] 77639- 7480 Aug, Bipolar affective, depress, mod F31.32 ; Post-traumatic stress disorder, chronic F43.12 and Borderline personality disorder F60.3 [place] [id number] [place] [address] 95656- 4507 Aug, Fibromyalgia M79.7 ; Back pain M54.9 and Cervical radiculopathy M54.12 [place] [id number] [place] [address] 38047- 3668 Aug, Bipolar affective, depress, mod F31.32 and Post-traumatic stress disorder, chronic F43.12 [facility] [id number] [place] [address] 44195- 9867 Jul, Depression F32.9 ; Borderline personality disorder F60.3 and Bipolar affective, depress, mod F31.32 [facility] [id number] [place] [address] 96873- 0942 Jul, Post-traumatic stress disorder, chronic F43.12 ; Bipolar affective, depress, mod F31.32 ; Borderline personality disorder F60.3 and Cannabis use disorder, mild, abuse F12.10 [address] [address] [place] [address] 77002- 1217 Jul, Other intermediate (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.899 [place] [id number] [place] [address] 49360- 2481 Jun, [place] [id number] [place] [address] 374752- 3280 Jun, Depression F32.9 ; Borderline personality disorder F60.3 and Bipolar affective, depress, mod F31.32 [place] [id number] [place] [address] 25567- 6597 Jun, Depression F32.9 and Borderline personality disorder F60.3 [place] [id number] [place] [address] 55133- 4868 May, Post-traumatic stress disorder, chronic F43.12 [place] [id number] [place] [address] 93101- 8196 May, Depression F32.9 and Borderline personality disorder F60.3 [place] [id number] [place] [address] 71449- 7807 Apr, Post-traumatic stress disorder, chronic F43.12 ; Bipolar affective, depress, mod F31.32 ; Borderline personality disorder F60.3 ; Other intermediate (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.899 and Cannabis use disorder, mild, abuse F12.10 [place] [id number] [place] [address] 37115- 2038 Apr, Depression F32.9 and Borderline personality disorder F60.3 [facility] [id number] [place] [address] 71637- 7085 Apr, Depression F32.9 and Borderline personality disorder F60.3 [facility] [id number] [place] [address] 46564- 9836 Mar, Depression F32.9 and Borderline personality disorder F60.3 [facility] [id number] [place] [address] 43318- 2291 February, Depression F32.9 and Borderline personality disorder F60.3 [facility] [id number] [place] [address] 59325- 3554 February, Back pain M54.9 [facility] [id number] [place] [address] 49926- 2250 February, Depression F32.9 and Borderline personality disorder F60.3 [facility] [id number] [place] [address] 84650- 1915 February, Post-traumatic stress disorder, chronic F43.12 ; Borderline personality disorder F60.3 and Bipolar affective disorder, depressed, mild F31.31 [facility] [id number] [place] [address] 23717- 5924 February, [facility] [id number] [place] [address] 52403- 2596 February, Depression F32.9 and Borderline personality disorder F60.3 [facility] [id number] [place] [address] 50592- 4316 Jan, [facility] [id number] [place] [address] 51670- 9548 Jan, Depression F32.9 and Borderline personality disorder F60.3 [facility] [address] [place] [address] 51746- 9194 Jan, Acute lateral meniscus tear of right knee, initial encounter S83.281A [facility] [id number] [place] [address] 79376- 1204 Jan, Depression F32.9 and Borderline personality disorder F60.3 [facility] [id number] [place] [address] 87924- 2094 Dec, Depression F32.9 and Borderline personality disorder F60.3 [place] [address] 58199- 2356 Dec, Depression F32.9 and Borderline personality disorder F60.3 [place] [id number] [place] [address] 43316- 8406 28 Nov, 2016 Hyperlipidemia E78.5 ; Knee locking, right M23.91 and Carpal tunnel syndrome of right wrist G56.01 [place] [id number] [place] [address] 17631- 6491 23 Nov, 2016 Bipolar affective, depress, mod F31.32 ; Post-traumatic stress disorder, chronic F43.12 and Borderline personality disorder F60.3 [place] [id number] [place] [address] 88027- 2237 16 Nov, 2016 Depression F32.9 and Borderline personality disorder F60.3 [place] [id number] [place] [address] 31068- 0805 Oct, Post-traumatic stress disorder, chronic F43.12 and 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 [place] [id number] [place] [address] 34412- 6964 Oct, Nondisplaced fracture of distal end of right radius with routine healing, subsequent encounter S52.501D [place] [id number] [place] [address] 12208- 5351 Sep, [facility] [id number] [place] [address] 40784- 5455 Aug, Right wrist fracture, closed, initial encounter S62.101A [facility] [address] [place] [address] 33865- 1401 Aug, [facility] [id number] [place] [address] 42247- 7506 Jul, Back pain M54.9 and Hyperlipidemia E78.5 [facility] [id number] [place] [address] 71458- 8706 Jul, Post-traumatic stress disorder, chronic F43.12 and 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 [facility] [id number] [place] [address] 35944- 1256 Apr, Bipolar affective, depress, mod F31.32 ; Post-traumatic stress disorder, chronic F43.12 and Other intermediate (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.899 [facility] [id number] [place] [address] 93248- 9896 Mar, [facility] [id number] [place] [address] 52438- 6275 Jan, Post-traumatic stress disorder, chronic F43.12 and Depression F32.9 [facility] [id number] [place] [address] 71292- 7738 Dec, [facility] [id number] [place] [address] 98393- 4307 Nov, Shoulder pain, left M25.512 and Bronchitis J40 [facility] [id number] [place] [address] 29267- 1336 Sep, Hyperlipidemia E78.5 [facility] [id number] [place] [address] 50585- 4556 Sep, Hyperlipidemia E78.5 [facility] [id number] [place] [address] 98143 2546 Sep, [facility] [id number] [place] [address] 77634- 8014 Sep, Back pain M54.9 ; CAD (coronary artery disease) I25.10 and Depression F32.9 [facility] [address] 59139- 6177 Sep, URI (upper respiratory infection) J06.9 ; Nausea & vomiting R11.2 and Tobacco abuse Z72.0 [facility] [address] 91719- 5928 Mar, Posttraumatic stress disorder 309.81 ; Major depressive disorder, recurrent episode, in partial remission 296.35 ; Nightmares associated with chronic post-traumatic stress disorder 307.47 ; Thoracic or lumbosacral neuritis or radiculitis, unspecified 724.4 ; Borderline personality disorder 301.83 and High risk medication use V58.69 [facility] [address] 54244- 3958 14 Jan, 2015 [facility] [address] 00107- 9090 Jan, [facility] [address] 00076- 7369 Dec, [facility] [address] 90551- 3315 Dec, [facility] [id number] [place] [address] 70080- 7735 Sep, [facility] [address] 29532- 7019 Sep, [facility] [id number] [place] [address] 42713- 0891 Sep, [facility] [address] 12424- 5184 Sep, [facility] [id number] [place] [address] 31998- 7100 Sep, [facility] [address] 69290- 8468 Jul, [facility] [place] [facility] [address] [id number] [place] [address]- 9808 Jul, [facility] [place] [facility] [address] [id number] [place] [address]- 7475 Jul, [facility] [place] [facility] [address] [id number] [place] [address]- 3375 Jul, [facility] [place] [facility] [address] [id number] [place] [address]- 9288 Jul, [facility] [place] [facility] [address] [id number] [place] [address]- 0207 Jul, [facility] [place] [facility] [address] [id number] [place] [address]- 4336 Jul, [facility] [place] [facility] [address] [id number] [place] [address]- 9162 Jul, [facility] [place] [facility] [address] [id number] [place] [address]- 8318 May, [facility] [place] [facility] [address] [id number] [place] [address]- 4867 May, [facility] [place] [facility] [address] [id number] [place] [address]- 1625 May, [facility] [place] [facility] [address] [id number] [address]- 0323 May, [facility] [place] [facility] [address] [id number], [place] [address]- 1914 May, [facility] [place] [facility] [address] [id number] [place] [address]- 6598 May, [facility] [place] [facility] [address] [id number] [place] [address]- 1868 Mar, [facility] [place] [facility] [address] [id number] [place] [address]- 7404 Mar, [facility] [place] [facility] [address] [id number] [place] [address]- 5908 February, [facility] [place] [facility] [address] [id number] [place] [address]- 9959 February, [facility] [place] [facility] [address] [id number] [place] [address]- 8338 February, [facility] [place] [facility] [address] [id number] [place] [address]- 6609 February, [facility] [place] [facility] [address] [id number] [place] [address]- 7968 February, [facility] [place] [facility] [address] [id number] [place] [address]- 9919 February, [facility] [place] [facility] [address] [id number] [place] [address]- 8067 February, [facility] [place] [facility] [address] [id number] [place] [address]- 2258 Jan, [facility] [place] [facility] [address] [id number] [place] [address]- 4396 Jan, [facility] [place] [facility] [address] [id number] [place] [address]- 0429 Jan, [facility] [place] [facility] [address] [id number] [place] [address]- 8812 Jan, [facility] [place] [facility] [address] [id number] [place] [address]- 5646 Dec, [facility] [place] [facility] [address] [id number] [place] [address]- 3791 Dec, [facility] [place] [facility] [address] [id number] [place] [address]- 2871 Dec, [facility] [place] [facility] [address] [id number] [place] [address]- 7871 Dec, [facility] [place] [facility] [address] [id number] [place] [address]- 1274 Nov, [facility] [place] [facility] [address] [id number] [place] [address]- 6879 Nov, [facility] [place] [facility] [address] [id number] [place] [address]- 0696 Nov, [facility] [place] [facility] [address] [id number] [place] [address]- 3367 Nov, [facility] [place] [facility] [address] [id number] [place] [address]- 1474 Nov, [facility] [place] [facility] [address] [id number] [place] [address]- 3929 Nov, [facility] [place] [facility] [address] [id number] [place] [address]- 1955 Nov, [facility] [place] [facility] [address] [id number] [place] [address]- 6096 Nov, [facility] [place] [facility] [address] [id number] [place] [address]- 4172 Oct, [facility] [place] [facility] [address] [id number] [place] [address]- 5727 Oct, [facility] [place] [facility] [address] [id number] [place] [address]- 5861 Oct, [facility] [place] [facility] [address] [id number] [place] [address]- 5751 Oct, [facility] [place] [facility] [address] [id number], [place] [address]- 2665 Oct, [facility] [place] [facility] [address] [id number] [place] [address]- 6315 Oct, [facility] [place] [facility] [address] [id number] [place] [address]- 0563 Oct, [facility] [place] [facility] [address] [id number] [place] [address]- 5249 Oct, [facility] [place] [facility] [address] [id number] [place] [address]- 0546 13 Oct, 2013 [facility] [address] [id number] [place] [address]- 3360 Oct, [facility] [place] [facility] [address] [id number] [place] [address]- 2266 Oct, [facility] [address] [id number] [place] [address]- 2693 Aug, [facility] [place] [facility] [address] [id number] [place] [address]- 4620 Aug, [facility] [place] [facility] [address] [id number] [place] [address]- 3667 Jul, [facility] [place] [facility] [address] [id number] [place] [address]- 1566 Jul, [facility] [address] [id number] [place] [address]- 6569 Jul, [facility] [place] [facility] [address] [id number] [place] [address]- 4707 Jul, [facility] [place] [facility] [address] [id number] [place] [address]- 5167 Jun, [facility] [place] [facility] [address] [id number] [place] [address]- 3667 Jun, [facility] [place] [facility] [address] [id number] [place] [address]- 5170 Jan, [facility] [place] [facility] [address] [id number] [place] [address]- 0060 Oct, [facility] [place] [facility] [address] [id number] [place] [address]- 4554 Sep, [facility] [place] [facility] [address] [id number] [place] [address]- 6944 Sep, [facility] [place] [facility] [address] [id number] [place] [address]- 1320 Sep, [facility] [place] [facility] [address] [id number] [place] [address]- 9045 Sep, [facility] [place] [facility] [address] [id number] [place] [address]- 1248 Aug, [facility] [place] [facility] [address] [id number] [place] [address]- 6971 Aug, [facility] [place] [facility] [address] [id number] [place] [address]- 7229 Aug, [facility] [place] [facility] [address] [id number] [place] [address]- 3171 Aug, [facility] [place] [facility] [address] [id number] [place] [address]- 2296 Jul, [facility] [place] [facility] [address] [id number] [place] [address]- 9153 Jul, [facility] [place] [facility] [address] [id number] [place] [address]- 8811 Jul, [facility] [place] [facility] [address] [id number] [place] [address]- 7526 Jul, [facility] [place] [facility] [address] [id number] [place] [address]- 6253 Jul, [facility] [place] [facility] [address] [id number] [place] [address]- 3618 Jun, [facility] [place] [facility] [address] [id number] [place] [address]- 7718 Jun, [facility] [place] [facility] [address] [id number] [place] [address]- 0327 Jun, [facility] [place] [facility] [address] [id number] [place] [address]- 9095 May, [facility] [place] [facility] [address] [id number] [place] [address]- 6542 May, [facility] [place] [facility] [address] [id number] [place] [address]- 6646 Apr, [facility] [place] [facility] [address] [id number] [place] [address]- 9167 Apr, [facility] [place] [facility] [address] [id number] [place] [address]- 5376 Apr, [facility] [place] [facility] [address] [id number] [place] [address]- 0584 Apr, [facility] [place] [facility] [address] [id number] [place] [address] Mar, [facility] [place] [facility] [address] [id number] [place] [address] Mar, [facility] [place] [facility] [address] [id number] [place] [address] Mar, [facility] [place] [facility] [address] [id number] [place] [address] February, [facility] [place] [facility] [address] [id number] [place] [address] February, [facility] [place] [facility] [address] [id number] [place] [address] February, [facility] [place] [facility] [address] [id number] [place] [address] February, [facility] [place] [facility] [address] [id number] [place] [address] February, [facility] [place] [facility] [address] [id number] [place] [address] Jan, [facility] [place] [facility] [address] [id number] [place] [address] Jan, [facility] [place] [facility] [address] [id number] [place] [address] Jan, [facility] [place] [facility] [address] [id number] [place] [address] Dec, [facility] [place] [facility] [address] [id number] [place] [address] 30 Dec, 2011 [facility] [address] [id number] [place] [address] Dec, [facility] [place] [facility] [address] [id number] [place] [address] 29 Nov, 2011 [facility] [place] [facility] [address] [id number] [place] [address]- [address] 16 Nov, 2011 [facility] [place] [facility] [address] [id number] [place] [address] Nov, [facility] [place] [facility] [address] [id number] [place] [address] Nov, [facility] [place] [facility] [address] [facility] [id number] [place] [address] Oct, [facility] [place] [facility] [address] [facility] [id number] [place] [address] Oct, [facility] [place] [facility] [address] [id number] [place] [address] Sep, [facility] [place] [facility] [address] [facility] [id number] [place] [address] Sep, [facility] [place] [facility] [address] [facility] [id number] [place] [address] 14 Sep, 2011 [facility] [place] [facility] [address] [facility] [id number] [place] [address] 05 Sep, 2011 [facility] [place] [facility] [address] [id number] [place] [address] Aug, [facility] [place] [facility] [address] [facility] [id number] [place] [address] 10 Aug, 2011 [facility] [place] [facility] [address] [facility] [id number] [place] [address] 08 Aug, 2011 [facility] [place] [facility] [address] [facility] [id number] [place] [address] Jul, [facility] [place] [facility] [address] [id number] [place] [address] Jul, [facility] [place] [facility] [address] [id number] [place] [address] Jul, [facility] [place] [facility] [address] [id number] [place] [address]- [address] May, [facility] [place] [facility] [address] [id number] [place] [address] February, [facility] [place] [facility] [address] [id number] [place] [address] Nov, [facility] [place] [facility] [address] [address] [id number] [place] [address] 14 Oct, 2010 [facility] [place] [facility] [address] [id number] [place] [address] Oct, [facility] [place] [facility] [address] [id number] [place] [address] 22 Sep, 2010 [facility] [place] [facility] [address] [id number] [place] [address] 17 Sep, 2010 [facility] [place] [facility] [address] [id number] [place] [address] 17 Sep, 2010 [facility] [place] [facility] [address] [id number] [place] [address] 16 Sep, 2010 [facility] [place] [facility] [address] [id number] [place] [address] 10 Sep, 2010 [facility] [place] [facility] [address] [id number] [place] [address] 10 Sep, 2010 [facility] [place] [facility] [address] [id number] [place] [address] 29 Aug, 2010 [facility] [place] [facility] [address] [id number] [place] [address] 23 Aug, 2010 [facility] [place] [facility] [address] [id number] [place] [address] 18 Aug, 2010 [facility] [place] [facility] [address] [id number] [place] [address] 17 Aug, 2010 [facility] [place] [facility] [address] [id number] [place] [address] 2546 16 Aug, 2010 [facility] [place] [facility] [address] [id number] [place] [address] 25 Jul, 2010 [facility] [place] [facility] [address] [id number] [place] [address] 16 Jun, 2010 [facility] [place] [facility] [address] [id number] [place] [address], [place] [address] February, [facility] [place] [facility] [address] [id number] [place] [address] Oct, [facility] [place] [facility] [address] [facility] [id number] [place] [address] Sep, [facility] [place] [facility] [address] [id number] [place] [address] 24 Aug, 2009 [facility] [place] [facility] [address] [id number] [place] [address]45 03 Aug, 2009 [facility] [place] [facility] [address] [facility] [id number], [place] [address] 02 Aug, 2009 [facility] [place] [facility] [address] [id number] [place] [address]47 20 Jul, 2009 [facility] [place] [facility] [address] [id number], [place] [address]48 15 Jul, 2009 [facility] [place] [facility] [address] [id number] [place] [address] 25[address] 15 Jul, 2009 [facility] [place] [facility] [address] [id number], [place] [address]46 14 Jun, 2009 [facility] [place] [facility] [address] [id number], [place] [address]49 10 Jun, 2009 [facility] [address] [facility] [id number] [place] [id number] Mar, [facility] [address] [facility] [id number][place] [address] Jan, [facility] [address] [facility] [id number], [place] [address] Aug, IMMUNIZATIONS No Known Immunizations SOCIAL HISTORY Never Assessed REASON FOR VISIT Lyrica refill PLAN OF CARE VITAL SIGNS MEDICATIONS Unknown [...]
--- OUTSIDE RECORDS SUMMARY | 2018-11-13 11:46 | XMS REPORT ---
Author Author MARIMAR JONES Organization [facility] Address [address] [place] [address] Care Team Providers Care Validation Leader Name Role Phone MARIMAR JONES Unavailable PROBLEMS Type Condition ICD9-CM Code JWO23-QU Code Onset Dates Condition Status SNOMED Code Problem Borderline personality disorder F60.3 Active 90580227 Problem Post-traumatic stress disorder, chronic F43.12 Active 06832905 Problem Carpal tunnel syndrome of right wrist G56.01 Active [id number] Problem PAD (peripheral artery disease) I73.9 Active 753426724 Problem Anxiety F41.9 Active 17325947 Problem Cannabis use disorder, mild, abuse F12.10 Active 46933046 Problem Bipolar affective, depress, mod F31.32 Active 722424020 Problem Fibromyalgia M79.7 Active 410826453 Problem Cervical radiculopathy M54.12 Active 62791238 Problem CAD (coronary artery disease) I25.10 Active 25498161 Problem Depression F32.9 Active 01865253 Problem Back pain M54.9 Active 438737748 Problem Tobacco abuse Z72.0 Active 62359392 Problem Hyperlipidemia E78.5 Active 74913632 ALLERGIES No Information ENCOUNTERS Encounter Location Date Diagnosis [facility] [id number], [place] [address] Jul, [facility] [id number], [place] [address] May, [facility] [id number] [place] [address] 38841- 7861 May, [facility] [address] [place] [address] 82928- 9189 Apr, Post-traumatic stress disorder, chronic F43.12 ; Bipolar affective, depress, mod F31.32 ; Borderline personality disorder F60.3 and Cannabis use disorder, mild, abuse F12.10 [address] [place] [address] 71608- 0001 Apr, Cervical radiculopathy M54.12 ; Back pain M54.9 ; Fibromyalgia M79.7 and High risk heterosexual behavior Z72.51 [place] [id number] [place] [address] 35956- 3521 Apr, [place] [id number] [place] [address] 564572- 0600 Mar, Bipolar affective, depress, mod F31.32 ; Post-traumatic stress disorder, chronic F43.12 ; Borderline personality disorder F60.3 and Cannabis use disorder, mild, abuse F12.10 [place] [id number] [place] [address] 92680- 4705 Mar, Tobacco abuse Z72.0 [id number] [place] [address] 25662- 3598 Mar, [place] [id number] [place] [address] 42431- 1320 February, Fibromyalgia M79.7 [id number] [place] [address] 215915- 6492 Jan, Post-traumatic stress disorder, chronic F43.12 ; Bipolar affective, depress, mod F31.32 ; Borderline personality disorder F60.3 and Cannabis use disorder, mild, abuse F12.10 [address] [address] [place] [address] 25408- 9274 Jan, [address] [place] [address] 10692- 5513 Dec, Bipolar affective, depress, mod F31.32 ; Post-traumatic stress disorder, chronic F43.12 ; Borderline personality disorder F60.3 and Cannabis use disorder, mild, abuse F12.10 [address] [address] [place] [address] 27800- 4481 20 Mar, 2018 Hoarseness R49.0 ; Bronchitis J40 ; PAD (peripheral artery disease) I73.9 and Tobacco abuse Z72.0 [address] [place] [address]- 715 Nov, Bipolar affective, depress, mod F31.32 ; Post-traumatic stress disorder, chronic F43.12 ; Borderline personality disorder F60.3 and Cannabis use disorder, mild, abuse F12.10 [place] [address] 360853- 010 Oct, Post-traumatic stress disorder, chronic F43.12 ; Bipolar affective, depress, mod F31.32 ; Borderline personality disorder F60.3 and Cannabis use disorder, mild, abuse F12.10 [place] [address] 88027- 697 Oct, Bipolar affective, depress, mod F31.32 ; Post-traumatic stress disorder, chronic F43.12 and Borderline personality disorder F60.3 [place] [address] [id number]- 0169 Sep, Anxiety F41.9 [address] [address] 360851- 6522 Aug, Bipolar affective, depress, mod F31.32 ; Post-traumatic stress disorder, chronic F43.12 and Borderline personality disorder F60.3 [place] [id number] [place] [address] 71884- 8234 Aug, Bipolar affective, depress, mod F31.32 ; Post-traumatic stress disorder, chronic F43.12 and Borderline personality disorder F60.3 [address] [id number] [place] [address] 03185- 9383 Aug, Fibromyalgia M79.7 ; Back pain M54.9 and Cervical radiculopathy M54.12 [place] [id number] [place] [address] 92087- 4684 Aug, Bipolar affective, depress, mod F31.32 and Post-traumatic stress disorder, chronic F43.12 [facility] [address] [place] [address] 19678- 5756 Jul, Depression F32.9 ; Borderline personality disorder F60.3 and Bipolar affective, depress, mod F31.32 [facility] [address] [place] [address] 40093- 4296 Jul, Post-traumatic stress disorder, chronic F43.12 ; Bipolar affective, depress, mod F31.32 ; Borderline personality disorder F60.3 and Cannabis use disorder, mild, abuse F12.10 [address] [address] [place] [address] 31215- 9336 Jul, Other snf (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.899 [address] [id number] [place] [address] 64852- 7955 Jun, [place] [id number] [place] [address] 801043- 0445 Jun, Depression F32.9 ; Borderline personality disorder F60.3 and Bipolar affective, depress, mod F31.32 [address] [id number] [place] [address] 52584- 4270 Jun, Depression F32.9 and Borderline personality disorder F60.3 [address] [id number] [place] [address] 23629- 8027 May, Post-traumatic stress disorder, chronic F43.12 [place] [id number] [place] [address] 78180- 5294 May, Depression F32.9 and Borderline personality disorder F60.3 [place] [id number] [place] [address] 62157- 6165 Apr, Post-traumatic stress disorder, chronic F43.12 ; Bipolar affective, depress, mod F31.32 ; Borderline personality disorder F60.3 ; Other snf (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.899 and Cannabis use disorder, mild, abuse F12.10 [place] [id number] [place] [address] 57860- 3437 Apr, Depression F32.9 and Borderline personality disorder F60.3 [facility] [id number] [place] [address] 86030- 6011 Apr, Depression F32.9 and Borderline personality disorder F60.3 [facility] [id number] [place] [address] 72591- 2600 Mar, Depression F32.9 and Borderline personality disorder F60.3 [facility] [id number] [place] [address] 16695- 3047 February, Depression F32.9 and Borderline personality disorder F60.3 [facility] [id number] [place] [address] 01229- 1938 February, Back pain M54.9 [facility] [id number] [place] [address] 58652- 9687 February, Depression F32.9 and Borderline personality disorder F60.3 [facility] [id number] [place] [address] 94632- 5227 February, Post-traumatic stress disorder, chronic F43.12 ; Borderline personality disorder F60.3 and Bipolar affective disorder, depressed, mild F31.31 [facility] [id number] [place] [address] 26056- 1966 February, [facility] [id number] [place] [address] 87619- 6996 February, Depression F32.9 and Borderline personality disorder F60.3 [facility] [id number] [place] [address] 65476- 4269 Jan, [facility] [id number] [place] [address] 73738- 3869 Jan, Depression F32.9 and Borderline personality disorder F60.3 [facility] [address] [place] [address] 45326- 4731 Jan, Acute lateral meniscus tear of right knee, initial encounter S83.281A [facility] [id number] [place] [address] 81519- 4749 Jan, Depression F32.9 and Borderline personality disorder F60.3 [facility] [id number] [place] [address] 92992- 3525 Dec, Depression F32.9 and Borderline personality disorder F60.3 [place] [address] 10751- 9826 Dec, Depression F32.9 and Borderline personality disorder F60.3 [address] [id number] [place] [address] 03069- 7584 28 Nov, 2016 Hyperlipidemia E78.5 ; Knee locking, right M23.91 and Carpal tunnel syndrome of right wrist G56.01 [place] [id number] [place] [address] 16430- 5955 23 Nov, 2016 Bipolar affective, depress, mod F31.32 ; Post-traumatic stress disorder, chronic F43.12 and Borderline personality disorder F60.3 [place] [id number] [place] [address] 20355- 1321 16 Nov, 2016 Depression F32.9 and Borderline personality disorder F60.3 [place] [id number] [place] [address] 13718- 1189 Oct, Post-traumatic stress disorder, chronic F43.12 and Other termite helper (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.899 [address] [id number] [place] [address] 01601- 9752 Oct, Nondisplaced fracture of distal end of right radius with routine healing, subsequent encounter S52.501D [place] [id number] [place] [address] 22457- 4710 Sep, [facility] [id number] [place] [address] 01011- 8328 Aug, Right wrist fracture, closed, initial encounter S62.101A [facility] [address] [place] [address] 45299- 4310 Aug, [facility] [id number] [place] [address] 02864- 5086 Jul, Back pain M54.9 and Hyperlipidemia E78.5 [facility] [id number] [place] [address] 10503- 2316 Jul, Post-traumatic stress disorder, chronic F43.12 and Other termite helper (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.899 [facility] [id number] [place] [address] 47272- 0836 Apr, Bipolar affective, depress, mod F31.32 ; Post-traumatic stress disorder, chronic F43.12 and Other snf (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.899 [facility] [id number] [place] [address] 73102- 2846 Mar, [facility] [id number] [place] [address] 48818- 6284 Jan, Post-traumatic stress disorder, chronic F43.12 and Depression F32.9 [facility] [id number] [place] [address] 19109- 0532 Dec, [facility] [id number] [place] [address] 06501- 9562 Nov, Shoulder pain, left M25.512 and Bronchitis J40 [facility] [id number] [place] [address] 20415- 6046 Sep, Hyperlipidemia E78.5 [facility] [id number] [place] [address] 17322- 0616 Sep, Hyperlipidemia E78.5 [facility] [id number] [place] [address] 95386 2546 Sep, [facility] [id number] [place] [address] 50862- 5223 Sep, Back pain M54.9 ; CAD (coronary artery disease) I25.10 and Depression F32.9 [facility] [address] 97136- 8846 Sep, URI (upper respiratory infection) J06.9 ; Nausea & vomiting R11.2 and Tobacco abuse Z72.0 [facility] [address] 81996- 1562 Mar, Posttraumatic stress disorder 309.81 ; Major depressive disorder, recurrent episode, in partial remission 296.35 ; Nightmares associated with chronic post-traumatic stress disorder 307.47 ; Thoracic or lumbosacral neuritis or radiculitis, unspecified 724.4 ; Borderline personality disorder 301.83 and High risk medication use V58.69 [facility] [address] 62353- 7456 14 Jan, 2015 [facility] [address] 60811- 2341 Jan, [facility] [address] 71117- 4120 Dec, [facility] [address] 26265- 8045 Dec, [facility] [id number] [place] [address] 94083- 4598 Sep, [facility] [address] 31475- 5714 Sep, [facility] [id number] [place] [address] 86861- 5427 Sep, [facility] [address] 24057- 9444 Sep, [facility] [id number] [place] [address] 52163- 9424 Sep, [facility] [address] 88489- 8871 Jul, [facility] [place] [facility] [address] [id number] [place] [address]- 5557 Jul, [facility] [place] [facility] [address] [id number] [place] [address]- 4222 Jul, [facility] [place] [facility] [address] [id number] [place] [address]- 9569 Jul, [facility] [place] [facility] [address] [id number] [place] [address]- 1343 Jul, [facility] [place] [facility] [address] [id number] [place] [address]- 2687 Jul, [facility] [place] [facility] [address] [id number] [place] [address]- 0209 Jul, [facility] [place] [facility] [address] [id number] [place] [address]- 6915 Jul, [facility] [place] [facility] [address] [id number] [place] [address]- 9279 May, [facility] [place] [facility] [address] [id number] [place] [address]- 6396 May, [facility] [place] [facility] [address] [id number] [place] [address]- 1522 May, [facility] [place] [facility] [address] [id number], [place] [address]- 8344 May, [facility] [place] [facility] [address] [id number], [place] [address]- 0762 May, [facility] [place] [facility] [address] [id number] [place] [address]- 5418 May, [facility] [place] [facility] [address] [id number] [place] [address]- 5109 Mar, [facility] [place] [facility] [address] [id number] [place] [address]- 0078 Mar, [facility] [place] [facility] [address] [id number] [place] [address]- 8135 February, [facility] [place] [facility] [address] [id number] [place] [address]- 8567 February, [facility] [place] [facility] [address] [id number] [place] [address]- 0267 February, [facility] [place] [facility] [address] [id number] [place] [address]- 4357 February, [facility] [place] [facility] [address] [id number] [place] [address]- 1876 February, [facility] [place] [facility] [address] [id number] [place] [address]- 5748 February, [facility] [place] [facility] [address] [id number] [place] [address]- 2505 February, [facility] [place] [facility] [address] [id number] [place] [address]- 9170 Jan, [facility] [place] [facility] [address] [id number] [place] [address]- 7891 Jan, [facility] [place] [facility] [address] [id number] [place] [address]- 5069 Jan, [facility] [place] [facility] [address] [id number] [place] [address]- 5110 Jan, [facility] [place] [facility] [address] [id number] [place] [address]- 1180 Dec, [facility] [place] [facility] [address] [id number] [place] [address]- 2016 Dec, [facility] [place] [facility] [address] [id number] [place] [address]- 3395 Dec, [facility] [place] [facility] [address] [id number] [place] [address]- 0045 Dec, [facility] [place] [facility] [address] [id number] [place] [address]- 1194 Nov, [facility] [place] [facility] [address] [id number] [place] [address]- 5801 Nov, [facility] [place] [facility] [address] [id number] [place] [address]- 8976 Nov, [facility] [place] [facility] [address] [id number] [place] [address]- 0588 Nov, [facility] [place] [facility] [address] [id number] [place] [address]- 6320 Nov, [facility] [place] [facility] [address] [id number] [place] [address]- 2936 Nov, [facility] [place] [facility] [address] [id number] [place] [address]- 8645 Nov, [facility] [place] [facility] [address] [id number] [place] [address]- 1530 Nov, [facility] [place] [facility] [address] [id number] [place] [address]- 8425 Oct, [facility] [place] [facility] [address] [id number] [place] [address]- 9726 Oct, [facility] [place] [facility] [address] [id number] [place] [address]- 9404 Oct, [facility] [place] [facility] [address] [id number] [place] [address]- 9728 Oct, [facility] [place] [facility] [address] [id number], [place] [address]- 5187 Oct, [facility] [place] [facility] [address] [id number] [place] [address]- 9062 Oct, [facility] [place] [facility] [address] [id number] [place] [address]- 2709 Oct, [facility] [place] [facility] [address] [id number] [place] [address]- 6809 Oct, [facility] [place] [facility] [address] [id number] [place] [address]- 9399 13 Oct, 2013 [facility] [address] [id number] [place] [address]- 6102 Oct, [facility] [place] [facility] [address] [id number] [place] [address]- 1544 Oct, [facility] [address] [id number] [place] [address]- 1343 Aug, [facility] [place] [facility] [address] [id number] [place] [address]- 6217 Aug, [facility] [place] [facility] [address] [id number] [place] [address]- 3355 Jul, [facility] [place] [facility] [address] [id number] [place] [address]- 4083 Jul, [facility] [address] [id number] [place] [address]- 0877 Jul, [facility] [place] [facility] [address] [id number] [place] [address]- 7515 Jul, [facility] [place] [facility] [address] [id number] [place] [address]- 8347 Jun, [facility] [place] [facility] [address] [id number] [place] [address]- 2785 Jun, [facility] [place] [facility] [address] [id number] [place] [address]- 0771 Jan, [facility] [place] [facility] [address] [id number] [place] [address]- 8124 Oct, [facility] [place] [facility] [address] [id number] [place] [address]- 0718 Sep, [facility] [place] [facility] [address] [id number] [place] [address]- 4195 Sep, [facility] [place] [facility] [address] [id number] [place] [address]- 4318 Sep, [facility] [place] [facility] [address] [id number] [place] [address]- 3278 Sep, [facility] [place] [facility] [address] [id number] [place] [address]- 9642 Aug, [facility] [place] [facility] [address] [id number] [place] [address]- 5668 Aug, [facility] [place] [facility] [address] [id number] [place] [address]- 5888 Aug, [facility] [place] [facility] [address] [id number] [place] [address]- 6345 Aug, [facility] [place] [facility] [address] [id number] [place] [address]- 8189 Jul, [facility] [place] [facility] [address] [id number] [place] [address]- 0146 Jul, [facility] [place] [facility] [address] [id number] [place] [address]- 3427 Jul, [facility] [place] [facility] [address] [id number] [place] [address]- 8496 Jul, [facility] [place] [facility] [address] [id number] [place] [address]- 9208 Jul, [facility] [place] [facility] [address] [id number] [place] [address]- 4199 Jun, [facility] [place] [facility] [address] [id number] [place] [address]- 0290 Jun, [facility] [place] [facility] [address] [id number] [place] [address]- 0703 Jun, [facility] [place] [facility] [address] [id number] [place] [address]- 7225 May, [facility] [place] [facility] [address] [id number] [place] [address]- 2413 May, [facility] [place] [facility] [address] [id number] [place] [address]- 0566 Apr, [facility] [place] [facility] [address] [id number] [place] [address]- 2420 Apr, [facility] [place] [facility] [address] [id number] [place] [address]- 0856 Apr, [facility] [place] [facility] [address] [id number] [place] [address]- 3181 Apr, [facility] [place] [facility] [address] [id number] [place] [address]- 4797 Mar, [facility] [place] [facility] [address] [id number] [place] [address]- 9623 Mar, [facility] [place] [facility] [address] [id number] [place] [address]- 8426 Mar, [facility] [place] [facility] [address] [id number] [place] [address]- 8386 February, [facility] [place] [facility] [address] [id number] [place] [address]- 9760 February, [facility] [place] [facility] [address] [id number] [place] [address] February, [facility] [place] [facility] [address] [id number] [place] [address] February, [facility] [place] [facility] [address] [id number] [place] [address] February, [facility] [place] [facility] [address] [id number] [place] [address] Jan, [facility] [place] [facility] [address] [id number] [place] [address] Jan, [facility] [place] [facility] [address] [id number] [place] [address] Jan, [facility] [place] [facility] [address] [id number] [place] [address] Dec, [facility] [place] [facility] [address] [id number] [place] [address] 30 Dec, 2011 [facility] [address] [id number] [place] [address] Dec, [facility] [place] [facility] [address] [id number] [place] [address] 29 Nov, 2011 [facility] [place] [facility] [address] [id number] [place] [address] 16 Nov, 2011 [facility] [place] [facility] [address] [id number] [place] [address] Nov, [facility] [place] [facility] [address] [id number] [place] [address] Nov, [facility] [place] [facility] [address] [facility] [id number] [place] [address] Oct, [facility] [place] [facility] [address] [facility] [id number] [place] [address] Oct, [facility] [place] [facility] [address] [id number] [place] [address] Sep, [facility] [place] [facility] [address] [facility] [id number] [place] [address] Sep, [facility] [place] [facility] [address] [facility] [id number] [place] [address] 14 Sep, 2011 [facility] [place] [facility] [address] [facility] [id number] [place] [address] 05 Sep, 2011 [facility] [place] [facility] [address] [id number] [place] [address] Aug, [facility] [place] [facility] [address] [facility] [id number] [place] [address] 10 Aug, 2011 [facility] [place] [facility] [address] [facility] [id number] [place] [address] 08 Aug, 2011 [facility] [place] [facility] [address] [facility] [id number] [place] [address] Jul, [facility] [place] [facility] [address] [id number] [place] [address] Jul, [facility] [place] [facility] [address] [id number] [place] [address] Jul, [facility] [place] [facility] [address] [id number] [place] [address] May, [facility] [place] [facility] [address] [id number] [place] [address] February, [facility] [place] [facility] [address] [id number] [place] [address] Nov, [facility] [place] [facility] [address] [id number] [place] [address] 14 Oct, 2010 [facility] [place] [facility] [address] [id number] [place] [address] Oct, [facility] [place] [facility] [address] [id number] [place] [address] 22 Sep, 2010 [facility] [place] [facility] [address] [id number] [place] [address] 17 Sep, 2010 [facility] [place] [facility] [address] [id number] [place] [address] 17 Sep, 2010 [facility] [place] [facility] [address] [address] [id number] [place] [address] 16 Sep, 2010 [facility] [place] [facility] [address] [id number] [place] [address] 10 Sep, 2010 [facility] [place] [facility] [address] [id number] [place] [address] 10 Sep, 2010 [facility] [place] [facility] [address] [id number] [place] [address] 29 Aug, 2010 [facility] [place] [facility] [address] [id number] [place] [address] 23 Aug, 2010 [facility] [place] [facility] [address] [id number] [place] [address] 18 Aug, 2010 [facility] [place] [facility] [address] [id number] [place] [address] 17 Aug, 2010 [facility] [place] [facility] [address] [id number] [place] [address] 16 Aug, 2010 [facility] [place] [facility] [address] [id number] [place] [address] 25 Jul, 2010 [facility] [place] [facility] [address] [id number] [place] [address] 16 Jun, 2010 [facility] [place] [facility] [address] [id number] [place] [address], [place] [address] February, [facility] [place] [facility] [address] [id number] [place] [address] Oct, [facility] [place] [facility] [address] [facility] [id number] [place] [address] Sep, [facility] [place] [facility] [address] [id number] [place] [address] 24 Aug, 2009 [facility] [place] [facility] [address] [id number] [place] [address] 03 Aug, 2009 [facility] [place] [facility] [address] [facility] [id number], [place] [address] 02 Aug, 2009 [facility] [place] [facility] [address] [id number] [place] [address] 20 Jul, 2009 [facility] [place] [facility] [address] [id number], [place] [address] 15 Jul, 2009 [facility] [place] [facility] [address] [id number] [place] [address] 15 Jul, 2009 [facility] [place] [facility] [address] [id number], [place] [address] 14 Jun, 2009 [facility] [place] [facility] [address] [id number], [place] [address] 10 Jun, 2009 [facility] [address] [facility] [id number] [place] [address] Mar, [facility] [address] [facility] [id number], [place] [address] Jan, [facility] [address] [facility] [id number], [place] [address] Aug, IMMUNIZATIONS No Known Immunizations SOCIAL HISTORY Never Assessed REASON FOR VISIT Lyrica PLAN OF CARE VITAL SIGNS MEDICATIONS Medication Instructions Dosage Frequency Start Date End Date Duration Status Lyrica 100 mg Orally 4 times a day 1 capsule 6h 30 days Active RESULTS No Results PROCEDURES No [...]
--- OUTSIDE RECORDS SUMMARY | 2018-11-13 11:47 | XMS REPORT ---
Author Author MARIMAR JONES Organization [facility] Address [address] [place] [address] Care Team Providers Care Export Freight Manager Name Role Phone MARIMAR JONES Unavailable PROBLEMS Type Condition ICD9-CM Code [id number] Code Onset Dates Condition Status SNOMED Code Problem Borderline personality disorder F60.3 Active 85575306 Problem Post-traumatic stress disorder, chronic F43.12 Active 42784269 Problem Carpal tunnel syndrome of right wrist G56.01 Active [id number] Problem PAD (peripheral artery disease) I73.9 Active 523020946 Problem Anxiety F41.9 Active 61770987 Problem Cannabis use disorder, mild, abuse F12.10 Active 69074461 Problem Bipolar affective, depress, mod F31.32 Active 399882844 Problem Fibromyalgia M79.7 Active 381565377 Problem Cervical radiculopathy M54.12 Active 75380985 Problem CAD (coronary artery disease) I25.10 Active 81800124 Problem Depression F32.9 Active 37531665 Problem Back pain M54.9 Active 114090061 Problem Tobacco abuse Z72.0 Active 58923529 Problem Hyperlipidemia E78.5 Active 61471489 ALLERGIES Substance Reaction Event Type Date Status Aspir-81 nausea Drug Allergy Dec, Active IV Dye nausea Non Drug Allergy Dec, Active ENCOUNTERS Encounter Location Date Diagnosis [facility] [address] [facility] [id number] [address] Jul, [facility] [address] [facility] [id number] [address] May, [facility] [address] [id number] [address] Apr, Post-traumatic stress disorder, chronic F43.12 ; Bipolar affective, depress, mod F31.32 ; Borderline personality disorder F60.3 and Cannabis use disorder, mild, abuse F12.10 [place] [id number] [place] [address] 25687- 4469 Apr, Cervical radiculopathy M54.12 ; Back pain M54.9 ; Fibromyalgia M79.7 and High risk heterosexual behavior Z72.51 [place] [id number] [place] [address] 77117- 0479 Apr, [place] [address] [address]42- 1739 Mar, Bipolar affective, depress, mod F31.32 ; Post-traumatic stress disorder, chronic F43.12 ; Borderline personality disorder F60.3 and Cannabis use disorder, mild, abuse F12.10 [place] [id number] [place] [address] 88009- 6024 Mar, Tobacco abuse Z72.0 [place] [address] 29343- 8606 Mar, [place] [id number] [place] [address] 37837- 9750 February, Fibromyalgia M79.7 [place] [id number] [place] [address] 62337- 5049 Jan, Post-traumatic stress disorder, chronic F43.12 ; Bipolar affective, depress, mod F31.32 ; Borderline personality disorder F60.3 and Cannabis use disorder, mild, abuse F12.10 [place] [id number] [place] [address] 69142- 8108 Jan, [place] [id number] [place] [address] 73867- 2503 Dec, Bipolar affective, depress, mod F31.32 ; Post-traumatic stress disorder, chronic F43.12 ; Borderline personality disorder F60.3 and Cannabis use disorder, mild, abuse F12.10 [place] [id number] [place] [address] 77468- 1285 Dec, Hoarseness R49.0 ; Bronchitis J40 ; PAD (peripheral artery disease) I73.9 and Tobacco abuse Z72.0 [place] [address] [address] [id number] [place] [address]- 778 Nov, Bipolar affective, depress, mod F31.32 ; Post-traumatic stress disorder, chronic F43.12 ; Borderline personality disorder F60.3 and Cannabis use disorder, mild, abuse F12.10 [place] [address] [place] [address]- 789 Oct, Post-traumatic stress disorder, chronic F43.12 ; Bipolar affective, depress, mod F31.32 ; Borderline personality disorder F60.3 and Cannabis use disorder, mild, abuse F12.10 [place] [id number] [place] [address] 042270- 087 Oct, Bipolar affective, depress, mod F31.32 ; Post-traumatic stress disorder, chronic F43.12 and Borderline personality disorder F60.3 [place] [address] 50943- 8978 Sep, Anxiety F41.9 [place] [address] [place] 754880- 392 Aug, Bipolar affective, depress, mod F31.32 ; Post-traumatic stress disorder, chronic F43.12 and Borderline personality disorder F60.3 [place] [id number] [place] [address] 88554- 9669 Aug, Bipolar affective, depress, mod F31.32 ; Post-traumatic stress disorder, chronic F43.12 and Borderline personality disorder F60.3 [place] [id number] [place] [address] 44570- 1462 Aug, Fibromyalgia M79.7 ; Back pain M54.9 and Cervical radiculopathy M54.12 [place] [id number] [place] [address] 22244- 7631 Aug, Bipolar affective, depress, mod F31.32 and Post-traumatic stress disorder, chronic F43.12 [place] [id number] [place] [address] 88263- 4891 Jul, Depression F32.9 ; Borderline personality disorder F60.3 and Bipolar affective, depress, mod F31.32 [place] [id number] [place] [address] 23603- 0712 Jul, Post-traumatic stress disorder, chronic F43.12 ; Bipolar affective, depress, mod F31.32 ; Borderline personality disorder F60.3 and Cannabis use disorder, mild, abuse F12.10 [place] [id number] [place] [address] 31683- 0803 Jul, Other intermediate manager (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.899 [place] [id number] [place] [address] 67755- 5265 Jun, [place] [id number] [place] [address] 56640- 1784 Jun, Depression F32.9 ; Borderline personality disorder F60.3 and Bipolar affective, depress, mod F31.32 [place] [id number] [place] [address] 47261- 3120 Jun, Depression F32.9 and Borderline personality disorder F60.3 [place] [id number] [place] [address] 69377- 2546 May, Post-traumatic stress disorder, chronic F43.12 [place] [id number] [place] [address] 03201- 8792 May, Depression F32.9 and Borderline personality disorder F60.3 [place] [id number] [place] [address] 62135- 6793 Apr, Post-traumatic stress disorder, chronic F43.12 ; Bipolar affective, depress, mod F31.32 ; Borderline personality disorder F60.3 ; Other shelter (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.899 and Cannabis use disorder, mild, abuse F12.10 [place] [id number] [place] [address] [address] Apr, Depression F32.9 and Borderline personality disorder F60.3 [facility] [id number] [place] [address] 85538- 6092 Apr, Depression F32.9 and Borderline personality disorder F60.3 [facility] [id number] [place] [address] 77064- 5415 Mar, Depression F32.9 and Borderline personality disorder F60.3 [facility] [id number] [place] [address] 95254- 6759 February, Depression F32.9 and Borderline personality disorder F60.3 [facility] [id number] [place] [address] 18106- 2096 February, Back pain M54.9 [facility] [id number] [place] [address] 75910- 3425 February, Depression F32.9 and Borderline personality disorder F60.3 [facility] [id number] [place] [address] 75434- 0944 February, Post-traumatic stress disorder, chronic F43.12 ; Borderline personality disorder F60.3 and Bipolar affective disorder, depressed, mild F31.31 [facility] [address] [address]- 2684 February, [facility] [id number] [place] [address] 56266- 7167 February, Depression F32.9 and Borderline personality disorder F60.3 [facility] [address] [address]- 0273 Jan, [facility] [id number] [place] [address] 16137- 2999 Jan, Depression F32.9 and Borderline personality disorder F60.3 [facility] [address] [address]- 8705 Jan, Acute lateral meniscus tear of right knee, initial encounter S83.281A [facility] [id number] [place] [address] 51464- 8021 03 Jan, 2017 Depression F32.9 and Borderline personality disorder F60.3 [facility] [id number] [place] [address] 94491 2546 Dec, Depression F32.9 and Borderline personality disorder F60.3 [facility] [id number] [place] [address] 60803- 8546 06 Dec, 2016 Depression F32.9 and Borderline personality disorder F60.3 [place] [id number] [place] [address] 88336- 2874 28 Nov, 2016 Hyperlipidemia E78.5 ; Knee locking, right M23.91 and Carpal tunnel syndrome of right wrist G56.01 [place] [id number] [place] [address] 28541- 6006 23 Nov, 2016 Bipolar affective, depress, mod F31.32 ; Post-traumatic stress disorder, chronic F43.12 and Borderline personality disorder F60.3 [place] [address] [place] [id number] [place] [address] 66929- 6872 Nov, Depression F32.9 and Borderline personality disorder F60.3 [facility] [id number] [place] [address] 09715- 8256 Oct, Post-traumatic stress disorder, chronic F43.12 and Other shelter (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.899 [place] [id number] [place] [address] 67547- 5293 Oct, Nondisplaced fracture of distal end of right radius with routine healing, subsequent encounter S52.501D [place] [address] [id number] [place] [address] 62153- 6801 Sep, [facility] [id number] [place] [address] 36001- 7410 Aug, Right wrist fracture, closed, initial encounter S62.101A [facility] [id number] [place] [address] 90918- 6267 Aug, [facility] [id number] [place] [address] 45704- 3733 Jul, Back pain M54.9 and Hyperlipidemia E78.5 [facility] [id number] [place] [address] 13471 2546 Jul, Post-traumatic stress disorder, chronic F43.12 and Other intermediate manager (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.899 [facility] [id number] [place] [address] 57701- 5857 Apr, Bipolar affective, depress, mod F31.32 ; Post-traumatic stress disorder, chronic F43.12 and Other intermediate manager (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.899 [facility] [id number] [place] [address] 41028- 9891 Mar, [facility] [id number] [place] [address] 72530- 5619 Jan, Post-traumatic stress disorder, chronic F43.12 and Depression F32.9 [facility] [id number] [place] [address] 49368- 0614 Dec, [facility] [id number] [place] [address] 69493- 3470 Nov, Shoulder pain, left M25.512 and Bronchitis J40 [facility] [id number] [place] [address] 40510- 7997 Sep, Hyperlipidemia E78.5 [facility] [id number] [place] [address] 60925- 2206 Sep, Hyperlipidemia E78.5 [facility] [id number] [place] [address] 77722- 0716 Sep, [facility] [id number] [place] [address] 53513- 0798 Sep, Back pain M54.9 ; CAD (coronary artery disease) I25.10 and Depression F32.9 [facility] [id number] [place] [address] 99072- 7382 Sep, URI (upper respiratory infection) J06.9 ; Nausea & vomiting R11.2 and Tobacco abuse Z72.0 [facility] [id number] [place] [address] 03682- 2429 Mar, Posttraumatic stress disorder 309.81 ; Major depressive disorder, recurrent episode, in partial remission 296.35 ; Nightmares associated with chronic post-traumatic stress disorder 307.47 ; Thoracic or lumbosacral neuritis or radiculitis, unspecified 724.4 ; Borderline personality disorder 301.83 and High risk medication use V58.69 [facility] [id number] [place] [address] 20528- 1549 Jan, [facility] [address] 16597- 3187 Jan, [facility] [id number] [place] [address] 47732- 8212 Dec, [facility] [address] 11227- 6187 Dec, [facility] [id number] [place] [address] 70464- 5877 Sep, [facility] [id number] [place] [address] 86286- 0356 Sep, [facility] [id number] [place] [address] 95497- 0475 Sep, [facility] [id number] [place] [address] 83831- 2645 Sep, [facility] [id number] [place] [address] 59937- 8359 Sep, [facility] [id number] [place] [address] 23924- 7611 Jul, [facility] [place] [facility] [address] [id number] [place] [address]- 2564 Jul, [facility] [place] [facility] [address] [id number] [place] [address]- 1203 Jul, [facility] [place] [facility] [address] [id number] [place] [address]- 7546 Jul, [facility] [place] [facility] [address] [id number] [place] [address]- 1251 Jul, [facility] [place] [facility] [address] [id number] [place] [address]- 7274 Jul, [facility] [place] [facility] [address] [id number] [place] [address]- 2841 Jul, [facility] [place] [facility] [address] [id number] [place] [address]- 5431 Jul, [facility] [place] [facility] [address] [id number] [place] [address]- 1358 May, [facility] [place] [facility] [address] [id number] [place] [address]- 8944 May, [facility] [place] [facility] [address] [id number] [place] [address]- 2344 May, [facility] [place] [facility] [address] [id number] [place] [address]- 7688 May, [facility] [place] [facility] [address] [id number] [place] [address]- 1636 May, [facility] [place] [facility] [address] [id number] [place] [address]- 8600 May, [facility] [place] [facility] [address] [id number] [place] [address]- 5936 Mar, [facility] [place] [facility] [address] [id number] [place] [address]- 7201 Mar, [facility] [place] [facility] [address] [id number] [place] [address]- 9198 February, [facility] [place] [facility] [address] [id number] [place] [address]- 3744 February, [facility] [place] [facility] [address] [id number] [place] [address]- 1560 February, [facility] [place] [facility] [address] [id number] [place] [address]- 9667 February, [facility] [place] [facility] [address] [id number] [place] [address]- 6619 February, [facility] [place] [facility] [address] [id number] [place] [address]- 8921 February, [facility] [place] [facility] [address] [id number] [place] [address]- 5920 February, [facility] [place] [facility] [address] [id number] [place] [address]- 2659 Jan, [facility] [place] [facility] [address] [id number] [place] [address]- 6081 Jan, [facility] [place] [facility] [address] [id number] [place] [address]- 7310 Jan, [facility] [place] [facility] [address] [id number] [place] [address]- 6051 Jan, [facility] [place] [facility] [address] [id number] [place] [address]- 1423 Dec, [facility] [place] [facility] [address] [id number] [place] [address]- 7239 Dec, [facility] [place] [facility] [address] [id number] [place] [address]- 6424 Dec, [facility] [place] [facility] [address] [id number] [place] [address]- 2141 Dec, [facility] [place] [facility] [address] [id number] [place] [address]- 1449 Nov, [facility] [place] [facility] [address] [id number] [place] [address]- 4156 Nov, [facility] [place] [facility] [address] [id number] [place] [address]- 3896 Nov, [facility] [place] [facility] [address] [id number] [place] [address]- 8446 Nov, [facility] [place] [facility] [address] [id number] [place] [address]- 4638 Nov, [facility] [place] [facility] [address] [id number] [place] [address]- 2495 Nov, [facility] [place] [facility] [address] [id number] [place] [address]- 6377 Nov, [facility] [place] [facility] [address] [id number] [place] [address]- 3936 Nov, [facility] [place] [facility] [address] [id number] [place] [address]- 9763 Oct, [facility] [place] [facility] [address] [id number] [place] [address]- 9781 Oct, [facility] [place] [facility] [address] [id number] [place] [address]- 6205 Oct, [facility] [place] [facility] [address] [id number] [place] [address]- 7935 Oct, [facility] [place] [facility] [address] [id number] [place] [address]- 4236 Oct, [facility] [place] [facility] [address] [id number] [place] [address]- 6287 Oct, [facility] [place] [facility] [address] [id number] [place] [address]- 2245 Oct, [facility] [place] [facility] [address] [id number] [place] [address]- 3560 Oct, [facility] [place] [facility] [address] [id number], [place] [address]- 2382 Oct, [facility] [place] [facility] [address] [id number] [place] [address]- 1777 Oct, [facility] [place] [facility] [address] [id number] [place] [address]- 9179 Oct, [facility] [place] [facility] [address] [id number] [place] [address]- 2281 Aug, [facility] [place] [facility] [address] [id number] [place] [address]- 7159 Aug, [facility] [place] [facility] [address] [id number] [place] [address]- 2590 Jul, [facility] [place] [facility] [address] [id number] [place] [address]- 6067 Jul, [facility] [place] [facility] [address] [id number] [place] [address]- 3644 Jul, [facility] [place] [facility] [address] [id number] [place] [address]- 2479 Jul, [facility] [place] [facility] [address] [id number] [place] [address]- 7512 Jun, [facility] [place] [facility] [address] [id number] [place] [address]- 5863 Jun, [facility] [place] [facility] [address] [id number], [place] [address]- 2204 Jan, [facility] [place] [facility] [address] [id number], [place] [address]- 0330 Oct, [facility] [place] [facility] [address] [id number] [place] 2863 Sep, [facility] [place] [facility] [address] [id number] [place] 5805 Sep, [facility] [place] [facility] [address] [id number] [place] 3798 Sep, [facility] [place] [facility] [address] [id number] [place] [address]- 8372 Sep, [facility] [place] [facility] [address] [id number] [place] [address]- 5996 Aug, [facility] [place] [facility] [address] [id number] [place] [address]- 6316 Aug, [facility] [place] [facility] [address] [id number] [place] [address]- 9258 Aug, [facility] [place] [facility] [address] [id number] [place] [address]- 4094 Aug, [facility] [place] [facility] [address] [id number] [place] [address]- 4594 Jul, [facility] [place] [facility] [address] [id number] [place] [address]- 6174 Jul, [facility] [place] [facility] [address] [id number] [place] [address]- 2474 Jul, [facility] [place] [facility] [address] [id number] [place] [address]- 5384 Jul, [facility] [place] [facility] [address] [id number] [place] [address]- 5011 Jul, [facility] [place] [facility] [address] [id number] [place] [address]- 0436 Jun, [facility] [place] [facility] [address] [id number] [place] [address]- 9718 Jun, [facility] [place] [facility] [address] [id number] [place] [address]- 6704 Jun, [facility] [place] [facility] [address] [id number] [place] [address]- 4034 May, [facility] [place] [facility] [address] [id number] [place] [address] 2546 May, [facility] [place] [facility] [address] [id number] [place] [address]- 0347 Apr, [facility] [place] [facility] [address] [id number] [place] [address]- 4952 Apr, [facility] [place] [facility] [address] [id number] [place] [address]- 8027 Apr, [facility] [place] [facility] [address] [id number] [place] [address]- 4587 Apr, [facility] [place] [facility] [address] [id number] [place] [address]- 5249 Mar, [facility] [place] [facility] [address] [id number] [place] [address] 1993 Mar, [facility] [place] [facility] [address] [id number] [place] [address] Mar, [facility] [place] [facility] [address] [id number] [place] [address] February, [facility] [place] [facility] [address] [id number] [place] [address] February, [facility] [place] [facility] [address] [id number] [place] [address] February, [facility] [place] [facility] [address] [id number] [place] [address] February, [facility] [place] [facility] [address] [id number] [place] [address] February, [facility] [place] [facility] [address] [id number] [place] [address] Jan, [facility] [place] [facility] [address] [id number] [place] [address] Jan, [facility] [place] [facility] [address] [id number] [place] [address] Jan, [facility] [place] [facility] [address] [id number] [place] [address] Dec, [facility] [place] [facility] [address] [id number] [place] [address] 30 Dec, 2011 [facility] [place] [facility] [address] [id number] [place] [address] Dec, [facility] [place] [facility] [address] [id number] [place] [address] 29 Nov, 2011 [facility] [place] [facility] [address] [id number] [place] [address] 16 Nov, 2011 [facility] [place] [facility] [address] [id number] [place] [address] 07 Nov, 2011 [facility] [place] [facility] [address] [id number] [place] [address]- [address] 06 Nov, 2011 [facility] [place] [facility] [address] [id number] [place] [address] 30 Oct, 2011 [facility] [place] [facility] [address] [id number] [place] [address] Oct, [facility] [place] [facility] [address] [id number] [place] [address] Sep, [facility] [place] [facility] [address] [id number] [place] [address] 30 Sep, 2011 [facility] [place] [facility] [address] [id number] [place] [address] 14 Sep, 2011 [facility] [place] [facility] [address] [id number] [place] [address]- [address] 05 Sep, 2011 [facility] [place] [facility] [address] [id number] [place] [address] 28 Aug, 2011 [facility] [place] [facility] [address] [id number] [place] [address] 10 Aug, 2011 [facility] [place] [facility] [address] [id number] [place] [address] 08 Aug, 2011 [facility] [place] [facility] [address] [id number] [place] [address] Jul, [facility] [place] [facility] [address] [id number] [place] [address] Jul, [facility] [address] [id number] [place] [address] Jul, [facility] [address] [id number] [place] [address] May, [facility] [place] [facility] [address] [id number] [place] [address] February, [facility] [address] [id number] [place] [address] Nov, [facility] [place] [facility] [address] [id number] [place] [address] 14 Oct, 2010 [facility] [address] [id number] [place] [address] Oct, [facility] [address] [id number] [place] [address]- 1593 22 Sep, 2010 [facility] [place] [facility] [address] [id number] [place] [address] 17 Sep, 2010 [facility] [address] [id number] [place] [address] 17 Sep, 2010 [facility] [place] [facility] [address] [id number] [place] [address] 16 Sep, 2010 [facility] [place] [facility] [address] [id number] [place] [address] 10 Sep, 2010 [facility] [place] [facility] [address] [id number] [place] [address] 10 Sep, 2010 [facility] [place] [facility] [address] [id number] [place] [address] 29 Aug, 2010 [facility] [place] [facility] [address] [id number] [place] [address] 23 Aug, 2010 [facility] [place] [facility] [address] [id number][place] [address] 18 Aug, 2010 [facility] [place] [facility] [address] [id number] [place] [address] 17 Aug, 2010 [facility] [place] [facility] [address] [id number], [place] [address] 16 Aug, 2010 [facility] [place] [facility] [address] [id number] [place] [address] 25 Jul, 2010 [facility] [place] [facility] [address] [id number][place] [address] 16 Jun, 2010 [facility] [place] [facility] [address] [id number] [place] [address] February, [facility] [place] [facility] [address] [id number] [place] [address] Oct, [facility] [place] [facility] [address] [id number][place] [address] Sep, [facility] [place] [facility] [address] [id number], [place] [address] 24 Aug, 2009 [facility] [place] [facility] [address] [id number], [place] [address] 03 Aug, 2009 [facility] [place] [facility] [address] [id number], [place] [address] 02 Aug, 2009 [facility] [place] [facility] [address] [id number], [place] [address] 20 Jul, 2009 [facility] [place] [facility] [address] [id number], [place] [address] 15 Jul, 2009 [facility] [place] [facility] [address] [id number], [place] [address] 15 Jul, 2009 [facility] [place] [facility] [address] [id number], [place] [address] 14 Jun, 2009 [facility] [place] [facility] [address] [id number], [place] [address] 10 Jun, 2009 [facility] [place] [facility] [address] [facility] [id number] [place] [address] 16 Mar, 2009 [facility] [address] [facility] [id number][place] [address] Jan, [facility] [address] [facility] [id number] [place] [address] Aug, IMMUNIZATIONS No Known Immunizations SOCIAL HISTORY Never Assessed REASON FOR VISIT loss of voice for over a month, PT feet have been cold to the touch-[facility] PLAN OF CARE Activity Details Follow Up prn Reason: VITAL SIGNS Height 67 in 2018-01-13 Weight 172.3 lbs 2018-01-13 Temperature 98.2 degrees Fahrenheit 2018-01-13 Heart Rate 82 bpm 2018-01-13 Respiratory Rate 20 2018-01-13 BMI 26.98 kg/m2 2018-01-13 Blood pressure systolic 104 mmHg 2018-01-13 Blood pressure diastolic 70 mmHg 2018-01-13 MEDICATIONS Medication Instructions Dosage Frequency Start Date End Date Duration Status Keflex 750 MG Orally every 12 hrs 1 capsule 12h Dec, Dec, 07 days Active Nitrostat 0.4 MG Sublingual 2 5 min prn 1 Active Pravastatin Sodium 80 MG Orally Once a day 1 tablet 24h 30 days Active Ibuprofen 800 MG Orally Three times a day 1 tablet 8h Aug, Active Promethazine HCl 25 MG Orally 3 times a day for nausea 1 tablet as needed Jan, Active Chantix Starting Month Fred 0.5 MG X 11 & 1 MG X 42 as directed Jan, Active Pristiq 100 MG TAKE ONE TABLET BY MOUTH ONCE DAILY 30 Active QUEtiapine Fumarate ER 300 MG TAKE ONE TABLET BY MOUTH ONCE DAILY IN THE EVENING 30 Active Lyrica 100 mg TAKE ONE CAPSULE BY MOUTH FOUR TIMES DAILY 30 Active RESULTS No Results PROCEDURES No Known [...]
--- OUTSIDE RECORDS SUMMARY | 2018-11-13 11:47 | XMS REPORT ---
Author Author ELIECER ROMAN Organization [facility] Address [address] [place] [address] Care Team Providers Care Cable Installer Name Role Phone ABELELIECER Unavailable PROBLEMS Type Condition ICD9-CM Code [id number] Code Onset Dates Condition Status SNOMED Code Problem Borderline personality disorder F60.3 Active 70110469 Problem Post-traumatic stress disorder, chronic F43.12 Active 12891352 Problem Carpal tunnel syndrome of right wrist G56.01 Active [id number] Problem PAD (peripheral artery disease) I73.9 Active 408107484 Problem Anxiety F41.9 Active 83582913 Problem Cannabis use disorder, mild, abuse F12.10 Active 16460796 Problem Bipolar affective, depress, mod F31.32 Active 055185423 Problem Fibromyalgia M79.7 Active 601862051 Problem Cervical radiculopathy M54.12 Active 40755275 Problem CAD (coronary artery disease) I25.10 Active 26142623 Problem Depression F32.9 Active 77017374 Problem Back pain M54.9 Active 188511232 Problem Tobacco abuse Z72.0 Active 79702038 Problem Hyperlipidemia E78.5 Active 35350843 ALLERGIES Substance Reaction Event Type Date Status Aspir-81 nausea Drug Allergy Jan, Active IV Dye nausea Non Drug Allergy Jan, Active ENCOUNTERS Encounter Location Date Diagnosis [facility] [id number] [address] Jul, [facility] [address] [id number] [address] 4[address] May, [facility] [address] [id number] [address] Apr, Post-traumatic stress disorder, chronic F43.12 ; Bipolar affective, depress, mod F31.32 ; Borderline personality disorder F60.3 and Cannabis use disorder, mild, abuse F12.10 [address] [address] [place] [address] 46937- 2620 Apr, Cervical radiculopathy M54.12 ; Back pain M54.9 ; Fibromyalgia M79.7 and High risk heterosexual behavior Z72.51 [place] [id number] [place] [address] 66179- 5547 Apr, [place] [address] 189370- 7746 Mar, Bipolar affective, depress, mod F31.32 ; Post-traumatic stress disorder, chronic F43.12 ; Borderline personality disorder F60.3 and Cannabis use disorder, mild, abuse F12.10 [place] [id number] [place] [address] 25837- 7515 Mar, Tobacco abuse Z72.0 [place] [address] 60507- 7858 Mar, [facility] [id number] [place] [address] 24267- 4590 February, Fibromyalgia M79.7 [id number] [place] [address] 79783- 9440 Jan, Post-traumatic stress disorder, chronic F43.12 ; Bipolar affective, depress, mod F31.32 ; Borderline personality disorder F60.3 and Cannabis use disorder, mild, abuse F12.10 [place] [id number] [place] [address] 53397- 6649 Jan, [facility] [id number] [place] [address] 03861- 2029 Dec, Bipolar affective, depress, mod F31.32 ; Post-traumatic stress disorder, chronic F43.12 ; Borderline personality disorder F60.3 and Cannabis use disorder, mild, abuse F12.10 [place] [address] [place] [address] 26596- 7094 Dec, Hoarseness R49.0 ; Bronchitis J40 ; PAD (peripheral artery disease) I73.9 and Tobacco abuse Z72.0 [place] [address] [place] [address] 90810- 081 Nov, Bipolar affective, depress, mod F31.32 ; Post-traumatic stress disorder, chronic F43.12 ; Borderline personality disorder F60.3 and Cannabis use disorder, mild, abuse F12.10 [place] [address] 922695- 1688 Oct, Post-traumatic stress disorder, chronic F43.12 ; Bipolar affective, depress, mod F31.32 ; Borderline personality disorder F60.3 and Cannabis use disorder, mild, abuse F12.10 [place] [id number] [place] [address] 13472- 3371 Oct, Bipolar affective, depress, mod F31.32 ; Post-traumatic stress disorder, chronic F43.12 and Borderline personality disorder F60.3 [place] [id number] [place] [address] 61336- 4055 Sep, Anxiety F41.9 [place] [address] 062254- 3370 Aug, Bipolar affective, depress, mod F31.32 ; Post-traumatic stress disorder, chronic F43.12 and Borderline personality disorder F60.3 [place] [id number] [place] [address] 43520- 2848 Aug, Bipolar affective, depress, mod F31.32 ; Post-traumatic stress disorder, chronic F43.12 and Borderline personality disorder F60.3 [place] [id number] [place] [address] 96852- 7717 Aug, Fibromyalgia M79.7 ; Back pain M54.9 and Cervical radiculopathy M54.12 [place] [id number] [place] [address] 77925- 5655 Aug, Bipolar affective, depress, mod F31.32 and Post-traumatic stress disorder, chronic F43.12 [place] [address] [place] [address] 34096- 1047 Jul, Depression F32.9 ; Borderline personality disorder F60.3 and Bipolar affective, depress, mod F31.32 [facility] [address] [place] [address] 37271- 9168 Jul, Post-traumatic stress disorder, chronic F43.12 ; Bipolar affective, depress, mod F31.32 ; Borderline personality disorder F60.3 and Cannabis use disorder, mild, abuse F12.10 [place] [address] [place] [address] 36389- 9139 Jul, Other fci (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.899 [place] [id number] [place] [address] 84372- 4706 Jun, [place] [id number] [place] [address] 41330- 3834 Jun, Depression F32.9 ; Borderline personality disorder F60.3 and Bipolar affective, depress, mod F31.32 [place] [id number] [place] [address] 25321- 0676 Jun, Depression F32.9 and Borderline personality disorder F60.3 [place] [address] [place] [address] 10942- 3885 May, Post-traumatic stress disorder, chronic F43.12 [place] [id number] [place] [address] 30344- 7386 May, Depression F32.9 and Borderline personality disorder F60.3 [place] [id number] [place] [address] 97776- 6313 Apr, Post-traumatic stress disorder, chronic F43.12 ; Bipolar affective, depress, mod F31.32 ; Borderline personality disorder F60.3 ; Other fci (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.899 and Cannabis use disorder, mild, abuse F12.10 [place] [id number] [place] [address] 73734- 9535 Apr, Depression F32.9 and Borderline personality disorder F60.3 [facility] [id number] [place] [address] 83964- 0258 Apr, Depression F32.9 and Borderline personality disorder F60.3 [facility] [address] [place] [address] 85026- 4363 Mar, Depression F32.9 and Borderline personality disorder F60.3 [facility] [id number] [place] [address] 64265- 8668 February, Depression F32.9 and Borderline personality disorder F60.3 [facility] [id number] [place] [address] 26759- 1031 February, Back pain M54.9 [facility] [id number] [place] [address] 07234- 8033 February, Depression F32.9 and Borderline personality disorder F60.3 [facility] [id number] [place] [address] 18042- 9143 February, Post-traumatic stress disorder, chronic F43.12 ; Borderline personality disorder F60.3 and Bipolar affective disorder, depressed, mild F31.31 [facility] [address] [place] [address] 64759- 5029 February, [facility] [address] [place] [address] 12830- 5592 February, Depression F32.9 and Borderline personality disorder F60.3 [facility] [address] [address]- 7440 Jan, [facility] [id number] [place] [address] 44787- 1841 Jan, Depression F32.9 and Borderline personality disorder F60.3 [facility] [address] [address]- 1528 Jan, Acute lateral meniscus tear of right knee, initial encounter S83.281A [facility] [id number] [place] [address] 40533- 7754 Jan, Depression F32.9 and Borderline personality disorder F60.3 [facility] [id number] [place] [address] 86682- 2626 Dec, Depression F32.9 and Borderline personality disorder F60.3 [place] [address] 71772- 5888 Dec, Depression F32.9 and Borderline personality disorder F60.3 [place] [id number] [place] [address] 09465- 1446 Nov, Hyperlipidemia E78.5 ; Knee locking, right M23.91 and Carpal tunnel syndrome of right wrist G56.01 [place] [address] 19502- 2984 Nov, Bipolar affective, depress, mod F31.32 ; Post-traumatic stress disorder, chronic F43.12 and Borderline personality disorder F60.3 [place] [id number] [place] [address] 97218- 2822 Nov, Depression F32.9 and Borderline personality disorder F60.3 [place] [id number] [place] [address] 85852- 4859 Oct, Post-traumatic stress disorder, chronic F43.12 and Other fci (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.899 [place] [id number] [place] [address] 19419- 9804 Oct, Nondisplaced fracture of distal end of right radius with routine healing, subsequent encounter S52.501D [place] [id number] [place] [address] 13716- 1368 Sep, [place] [id number] [place] [address] 64808- 5457 Aug, Right wrist fracture, closed, initial encounter S62.101A [facility] [id number] [place] [address] 40815- 5216 Aug, [facility] [address] 40257- 1146 Jul, Back pain M54.9 and Hyperlipidemia E78.5 [facility] [id number] [place] [address] 20034- 7196 Jul, Post-traumatic stress disorder, chronic F43.12 and Other intermediate accountant (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.899 [facility] [id number] [place] [address] 12836- 9708 Apr, Bipolar affective, depress, mod F31.32 ; Post-traumatic stress disorder, chronic F43.12 and Other intermediate accountant (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.899 [facility] [id number] [place] [address] 46095- 9202 Mar, [facility] [id number] [place] [address] 41636- 3042 Jan, Post-traumatic stress disorder, chronic F43.12 and Depression F32.9 [facility] [id number] [place] [address] 51539- 9810 Dec, [facility] [id number] [place] [address] 33087- 5339 Nov, Shoulder pain, left M25.512 and Bronchitis J40 [facility] [id number] [place] [address] 72152- 8634 Sep, Hyperlipidemia E78.5 [facility] [id number] [place] [address] 19497- 4226 Sep, Hyperlipidemia E78.5 [facility] [id number] [place] [address] 59169 2546 Sep, [facility] [id number] [place] [address] 85866- 1489 Sep, Back pain M54.9 ; CAD (coronary artery disease) I25.10 and Depression F32.9 [facility] [id number] [place] [address] 50215- 0593 Sep, URI (upper respiratory infection) J06.9 ; Nausea & vomiting R11.2 and Tobacco abuse Z72.0 [facility] [address] 83187- 4234 Mar, Posttraumatic stress disorder 309.81 ; Major depressive disorder, recurrent episode, in partial remission 296.35 ; Nightmares associated with chronic post-traumatic stress disorder 307.47 ; Thoracic or lumbosacral neuritis or radiculitis, unspecified 724.4 ; Borderline personality disorder 301.83 and High risk medication use V58.69 [facility] [address] 11762- 0304 Jan, [facility] [address] 73487- 6853 Jan, [facility] [address] 92607- 8363 Dec, [facility] [address] 19017- 4753 Dec, [facility] [id number] [place] [address] 96362- 2918 Sep, [facility] [address] 04374- 4486 Sep, [facility] [id number] [place] [address] 44255- 2398 Sep, [facility] [address] 88796- 7080 Sep, [facility] [id number] [place] [address] 32034- 2097 Sep, [facility] [address] 39819- 7139 Jul, [facility] [place] [facility] [address] [id number] [place] [address]- 9396 Jul, [facility] [place] [facility] [address] [id number] [place] [address]- 5015 Jul, [facility] [place] [facility] [address] [id number] [place] [address]- 8077 Jul, [facility] [place] [facility] [address] [id number] [place] [address]- 0381 Jul, [facility] [place] [facility] [address] [id number] [place] [address]- 1224 Jul, [facility] [place] [facility] [address] [id number] [place] [address]- 6002 Jul, [facility] [place] [facility] [address] [id number] [place] [address]- 6441 Jul, [facility] [place] [facility] [address] [id number] [place] [address]- 9697 May, [facility] [place] [facility] [address] [id number] [place] [address]- 9519 May, [facility] [place] [facility] [address] [id number] [place] [address]- 6133 May, [facility] [place] [facility] [address] [id number] [address]- 9216 May, [facility] [place] [facility] [address] [id number] [address]- 1850 May, [facility] [place] [facility] [address] [id number] [place] [address]- 1358 May, [facility] [place] [facility] [address] [id number] [place] [address]- 5843 Mar, [facility] [place] [facility] [address] [id number] [address]- 8479 Mar, [facility] [place] [facility] [address] [id number] [address]- 2148 February, [facility] [address] [id number] [place] [address]- 5276 February, [facility] [place] [facility] [address] [id number] [place] [address]- 3957 February, [facility] [place] [facility] [address] [id number] [place] [address]- 7662 February, [facility] [place] [facility] [address] [id number] [place] [address]- 9535 February, [facility] [place] [facility] [address] [id number] [place] [address]- 9915 February, [facility] [place] [facility] [address] [id number] [place] [address]- 6830 February, [facility] [address] [id number] [place] [address]- 0159 Jan, [facility] [place] [facility] [address] [id number] [place] [address]- 7107 Jan, [facility] [place] [facility] [address] [id number] [place] [address]- 1617 Jan, [facility] [place] [facility] [address] [facility] [id number] [place] [address]- 8774 Jan, [facility] [place] [facility] [address] [id number] [place] [address]- 8405 Dec, [facility] [place] [facility] [address] [id number] [place] [address]- 7972 Dec, [facility] [place] [facility] [address] [id number] [place] [address]- 5458 Dec, [facility] [place] [facility] [address] [id number] [place] [address]- 1417 Dec, [facility] [place] [facility] [address] [id number] [place] [address]- 3474 Nov, [facility] [place] [facility] [address] [id number] [place] [address]- 7527 Nov, [facility] [place] [facility] [address] [id number] [place] [address]- 0746 Nov, [facility] [place] [facility] [address] [id number] [place] [address]- 4758 Nov, [facility] [place] [facility] [address] [id number] [place] [address]- 8320 Nov, [facility] [place] [facility] [address] [id number] [place] [address]- 3011 Nov, [facility] [place] [facility] [address] [id number] [place] [address]- 5853 Nov, [facility] [place] [facility] [address] [id number] [place] [address]- 3740 Nov, [facility] [place] [facility] [address] [id number] [place] [address]- 0185 Oct, [facility] [place] [facility] [address] [id number] [place] [address]- 3134 Oct, [facility] [place] [facility] [address] [id number] [place] [address]- 4246 Oct, [facility] [place] [facility] [address] [id number] [place] [address]- 0149 Oct, [facility] [place] [facility] [address] [id number] [place] [address]- 0441 Oct, [facility] [place] [facility] [address] [id number] [place] [address]- 6194 Oct, [facility] [place] [facility] [address] [id number] [place] [address]- 3985 Oct, [facility] [place] [facility] [address] [id number] [place] [address]- 5207 Oct, [facility] [place] [facility] [address] [id number] [place] [address]- 1801 Oct, [facility] [address] [id number] [place] [address]- 9039 Oct, [facility] [place] [facility] [address] [facility] [id number] [place] [address]- 9992 Oct, [facility] [place] [facility] [address] [facility] [id number] [place] [address]- 7678 Aug, [facility] [place] [facility] [address] [id number] [place] [address]- 5484 Aug, [facility] [place] [facility] [address] [facility] [id number] [place] [address], [place] [address]- 1162 Jul, [facility] [place] [facility] [address] [facility] [id number] [place] [address]- 5810 Jul, [facility] [address] [address]- 1984 Jul, [facility] [place] [facility] [address] [facility] [id number] [place] [address]- 4847 Jul, [facility] [id number] [place] [address]- 1231 Jun, [facility] [place] [facility] [id number] [place] [address]- 7718 Jun, [facility] [place] [facility] [address] [facility] [id number] [place] [address]- 6905 Jan, [facility] [place] [facility] [address] [facility] [id number] [place] [address]- 7886 Oct, [facility] [place] [facility] [address] [id number] [place] [address]- 2206 Sep, [facility] [place] [facility] [address] [facility] [id number] [place] 3028 Sep, [facility] [place] [facility] [id number] [address]- 3490 Sep, [facility] [place] [facility] [address] [id number] [place] [address]- 4541 Sep, [facility] [place] [facility] [address] [id number] [place] [address]- 9199 Aug, [facility] [place] [facility] [address] [id number] [place] [address]- 9066 Aug, [facility] [place] [facility] [address] [id number] [place] [address]- 5523 Aug, [facility] [place] [facility] [address] [id number] [place] [address]- 5680 Aug, [facility] [place] [facility] [address] [id number] [place] [address]- 4141 Jul, [facility] [place] [facility] [address] [id number] [place] [address]- 2948 Jul, [facility] [place] [facility] [address] [id number] [place] [address]- 5842 Jul, [facility] [place] [facility] [address] [id number] [place] [address]- 5738 Jul, [facility] [place] [facility] [address] [id number] [place] [address]- 1794 Jul, [facility] [place] [facility] [address] [id number] [place] [address]- 2798 Jun, [facility] [place] [facility] [address] [id number] [place] [address]- 8651 Jun, [facility] [place] [facility] [address] [id number] [place] [address]- 6008 Jun, [facility] [place] [facility] [address] [id number] [place] [address]- 7754 May, [facility] [place] [facility] [address] [id number] [place] [address]- 3053 May, [facility] [place] [facility] [address] [id number] [place] [address]- 9042 Apr, [facility] [place] [facility] [address] [id number] [place] [address] Apr, [facility] [place] [facility] [address] [id number] [place] [address] Apr, [facility] [place] [facility] [address] [id number] [place] [address] Apr, [facility] [place] [facility] [address] [id number] [place] [address] Mar, [facility] [place] [facility] [address] [id number] [place] [address] Mar, [facility] [place] [facility] [address] [id number] [place] [address] Mar, [facility] [place] [facility] [address] [id number] [place] [address] February, [facility] [place] [facility] [address] [id number] [place] [address] February, [facility] [place] [facility] [address] [id number] [place] [address] February, [facility] [place] [facility] [address] [id number] [place] [address] February, [facility] [place] [facility] [address] [id number] [place] [address] February, [facility] [place] [facility] [address] [id number] [address] Jan, [facility] [place] [facility] [address] [id number] [place] [address] Jan, [facility] [place] [facility] [address] [id number] [place] [address] Jan, [facility] [place] [facility] [address] [id number] [place] [address] Dec, [facility] [place] [facility] [address] [id number] [place] [address] 30 Dec, 2011 [facility] [address] [id number] [place] [address] Dec, [facility] [place] [facility] [address] [id number] [place] [address] 29 Nov, 2011 [facility] [address] [id number] [place] [address] 16 Nov, 2011 [facility] [place] [facility] [address] [id number] [place] [address] 07 Nov, 2011 [facility] [address] [id number] [place] [address], [place] [address] 06 Nov, 2011 [facility] [address] [facility] [id number] [place] [address] Oct, [facility] [address] [facility] [id number] [place] [address] Oct, [facility] [address] [facility] [id number] [place] [address] Sep, [facility] [place] [facility] [address] [facility] [id number] [place] [address] 30 Sep, 2011 [facility] [address] [facility] [id number] [place] [address] 14 Sep, 2011 [facility] [place] [facility] [address] [facility] [id number] [place] [address] 05 Sep, 2011 [facility] [place] [facility] [address] [id number] [place] [address] 28 Aug, 2011 [facility] [place] [facility] [address] [facility] [id number] [place] [address] 10 Aug, 2011 [facility] [place] [facility] [address] [facility] [id number] [place] [address] 08 Aug, 2011 [facility] [place] [facility] [address] [facility] [id number] [place] [address] Jul, [facility] [address] [id number] [place] [address] Jul, [facility] [place] [facility] [address] [id number] [place] [address] Jul, [facility] [place] [facility] [address] [id number] [place] [address] May, [facility] [place] [facility] [address] [id number] [place] [address] February, [facility] [place] [facility] [address] [id number] [place] [address] Nov, [facility] [place] [facility] [address] [id number] [place] [address] 14 Oct, 2010 [facility] [place] [facility] [address] [id number] [place] [address] Oct, [facility] [place] [facility] [address] [id number] [place] [address] 22 Sep, 2010 [facility] [place] [facility] [address] [id number] [place] [address] 17 Sep, 2010 [facility] [place] [facility] [address] [id number] [place] [address] 17 Sep, 2010 [facility] [place] [facility] [address] [id number] [place] [address] 16 Sep, 2010 [facility] [place] [facility] [address] [id number] [place] [address] 10 Sep, 2010 [facility] [place] [facility] [address] [id number] [place] [address] 10 Sep, 2010 [facility] [place] [facility] [address] [id number] [place] [address] 29 Aug, 2010 [facility] [place] [facility] [address] [id number] [place] [address] 23 Aug, 2010 [facility] [place] [facility] [address] [id number] [place] [address] 18 Aug, 2010 [facility] [address] [id number] [place] [address] 17 Aug, 2010 [facility] [place] [facility] [address] [id number] [place] [address] 16 Aug, 2010 [facility] [place] [facility] [address] [id number] [place] [address] 25 Jul, 2010 [facility] [place] [facility] [address] [id number] [place] [address] 16 Jun, 2010 [facility] [place] [facility] [id number] [place] [address], [place] [address] February, [facility] [place] [facility] [address] [id number] [place] [address] Oct, [facility] [address] [id number] [place] [address] Sep, [facility] [place] [facility] [address] [id number] [place] [address] 24 Aug, 2009 [facility] [place] [facility] [address] [id number] [place] [address] 03 Aug, 2009 [facility] [place] [facility] [address] [facility] [id number] [place] [address] 02 Aug, 2009 [facility] [place] [facility] [address] [id number] [place] [address] 20 Jul, 2009 [facility] [place] [facility] [address] [id number] [place] [address] 15 Jul, 2009 [facility] [place] [facility] [address] [id number] [place] [address] 15 Jul, 2009 [facility] [place] [facility] [address] [id number] [place] [address] 14 Jun, 2009 [facility] [place] [facility] [address] [id number] [place] [address] 10 Jun, 2009 [facility] [place] [facility] [address] [facility] [id number] [place] [address] Mar, [facility] [address] [facility] [id number] [place] [address] Jan, [facility] [address] [facility] [id number] [place] [address] Aug, IMMUNIZATIONS No Known Immunizations SOCIAL HISTORY Never Assessed REASON FOR VISIT f/u PLAN OF CARE Activity Details Follow Up 3 Months Reason: f/u VITAL SIGNS Height 67 in 2018-02-11 Weight 158.0 lbs 2018-02-11 Heart Rate 84 bpm 2018-02-11 Respiratory Rate 18 2018-02-11 BMI 24.74 kg/m2 2018-02-11 Blood pressure systolic 118 mmHg 2018-02-11 Blood pressure diastolic 82 mmHg 2018-02-11 MEDICATIONS Medication Instructions Dosage Frequency Start Date End Date Duration Status Promethazine HCl 25 MG Orally 3 times a day for nausea 1 tablet as needed Jan, Active QUEtiapine Fumarate ER 200 MG TAKE ONE TABLET BY MOUTH ONCE DAILY IN THE EVENING Active Pravastatin Sodium 80 MG Orally Once a day 1 tablet 24h 30 days Active Chantix 1 MG Orally Twice a day Starter pack directions 12h Jan, Mar, 30 day(s) Not-Taking Nitrostat 0.4 MG Sublingual 2 5 min prn 1 Active Ibuprofen 800 MG Orally Three times a day 1 tablet 8h Aug, Active Pristiq 100 MG TAKE ONE TABLET BY MOUTH ONCE DAILY Active QUEtiapine Fumarate ER 300 MG TAKE ONE TABLET BY MOUTH ONCE DAILY IN THE EVENING Active Lyrica 100 mg TAKE ONE CAPSULE BY MOUTH FOUR TIMES DAILY 30 Active Chantix Starting Month Fred 0.5 MG X 11 & 1 MG X 42 as directed Jan, Not-Taking QUEtiapine Fumarate ER 200 MG Orally Once a day 1 tablet in the evening 24h Active RESULTS No Results PROCEDURES No Known [...]
--- OUTSIDE RECORDS SUMMARY | 2018-11-13 11:48 | XMS REPORT ---
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7 Active 793703771 Problem Cervical radiculopathy M54.12 Active 31012284 Problem CAD (coronary artery disease) I25.10 Active 95391980 Problem Depression F32.9 Active 43390958 Problem Back pain M54.9 Active 016938645 Problem Tobacco abuse Z72.0 Active 14722441 Problem Hyperlipidemia E78.5 Active 43095852 ALLERGIES No Information ENCOUNTERS Encounter Location Date Diagnosis [facility] [id number] [place] [address] 99538- 8351 Jul, [facility] [id number] [place] [address] 81794- 6744 May, [facility] [place] [id number] [place] [address] 35143- 8580 Apr, Post-traumatic stress disorder, chronic F43.12 ; Bipolar affective, depress, mod F31.32 ; Borderline personality disorder F60.3 and Cannabis use disorder, mild, abuse F12.10 [facility] [place] [id number] [place] [address] 92581- 6360 Apr, Cervical radiculopathy M54.12 ; Back pain M54.9 ; Fibromyalgia M79.7 and High risk heterosexual behavior Z72.51 [place] [id number] [place] [address] 98393- 8434 Apr, [place] [id number] [place] [address] 88220- 4830 Mar, Bipolar affective, depress, mod F31.32 ; Post-traumatic stress disorder, chronic F43.12 ; Borderline personality disorder F60.3 and Cannabis use disorder, mild, abuse F12.[address] 54407- 4331 Mar, Tobacco abuse Z72.0 [place] [id number] [place] [address] 09129- 7481 Mar, [address] 31696- 9735 February, Fibromyalgia M79.7 [place] [id number] [place] [address] 99746- 1612 Jan, Post-traumatic stress disorder, chronic F43.12 ; Bipolar affective, depress, mod F31.32 ; Borderline personality disorder F60.3 and Cannabis use disorder, mild, abuse F12.10 [place] [id number] [place] [address] 94075- 1493 Jan, [place] [id number] [place] [address] 84791- 5867 Dec, Bipolar affective, depress, mod F31.32 ; Post-traumatic stress disorder, chronic F43.12 ; Borderline personality disorder F60.3 and Cannabis use disorder, mild, abuse F12.[address] [place] [address] 64459- 7921 Dec, Hoarseness R49.0 ; Bronchitis J40 ; PAD (peripheral artery disease) I73.9 and Tobacco abuse Z72.[id number] [place] [address] 62551- 6417 15 Nov, 2017 Bipolar affective, depress, mod F31.32 ; Post-traumatic stress disorder, chronic F43.12 ; Borderline personality disorder F60.3 and Cannabis use disorder, mild, abuse F12.10 [place] [id number] [place] [address] 32628- 6101 Oct, Post-traumatic stress disorder, chronic F43.12 ; Bipolar affective, depress, mod F31.32 ; Borderline personality disorder F60.3 and Cannabis use disorder, mild, abuse F12.10 [place] [id number] [place] [address] 596383- 296 Oct, Bipolar affective, depress, mod F31.32 ; Post-traumatic stress disorder, chronic F43.12 and Borderline personality disorder F60.3 [place] [id number] [place] [address] 41778- 1775 Sep, Anxiety F41.9 [place] [id number] [place] [address] 702108- 2270 Aug, Bipolar affective, depress, mod F31.32 ; Post-traumatic stress disorder, chronic F43.12 and Borderline personality disorder F60.3 [place] [id number] [place] [address] 14256- 0919 Aug, Bipolar affective, depress, mod F31.32 ; Post-traumatic stress disorder, chronic F43.12 and Borderline personality disorder F60.3 [place] [id number] [place] [address] 10794- 6408 Aug, Fibromyalgia M79.7 ; Back pain M54.9 and Cervical radiculopathy M54.12 [place] [id number] [place] [address] 52563- 0104 Aug, Bipolar affective, depress, mod F31.32 and Post-traumatic stress disorder, chronic F43.12 [place] [id number] [place] [address] 81064- 8831 Jul, Depression F32.9 ; Borderline personality disorder F60.3 and Bipolar affective, depress, mod F31.32 [place] [id number] [place] [address] 65822- 7755 Jul, Post-traumatic stress disorder, chronic F43.12 ; Bipolar affective, depress, mod F31.32 ; Borderline personality disorder F60.3 and Cannabis use disorder, mild, abuse F12.10 [place] [id number] [place] [address] 14526- 9352 Jul, 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 [place] [id number] [place] [address] 889713- 1941 Jun, [place] [id number] [place] [address] 66229- 2447 Jun, Depression F32.9 ; Borderline personality disorder F60.3 and Bipolar affective, depress, mod F31.32 [facility] [id number] [place] [address] 50301- 1782 Jun, Depression F32.9 and Borderline personality disorder F60.3 [place] [id number] [place] [address] 54068- 4911 May, Post-traumatic stress disorder, chronic F43.12 [facility] [place] [id number] [place] [address] 36722- 3233 May, Depression F32.9 and Borderline personality disorder F60.3 [facility] [place] [id number] [place] [address] 27811- 8330 Apr, Post-traumatic stress disorder, chronic F43.12 ; Bipolar affective, depress, mod F31.32 ; Borderline personality disorder F60.3 ; 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 and Cannabis use disorder, mild, abuse F12.10 [facility] [place] [address] [place] [address] 78822- 3015 Apr, Depression F32.9 and Borderline personality disorder F60.3 [facility] [address] [place] [address] 06490- 3269 Apr, Depression F32.9 and Borderline personality disorder F60.3 [facility] [id number] [place] [address] 10407- 5544 Mar, Depression F32.9 and Borderline personality disorder F60.3 [facility] [id number] [place] [address] 61933- 1366 February, Depression F32.9 and Borderline personality disorder F60.3 [facility] [id number] [place] [address] 83325- 4355 February, Back pain M54.9 [facility] [id number] [place] [address] 26459- 9955 February, Depression F32.9 and Borderline personality disorder F60.3 [facility] [id number] [place] [address] 66968- 6503 February, Post-traumatic stress disorder, chronic F43.12 ; Borderline personality disorder F60.3 and Bipolar affective disorder, depressed, mild F31.31 [facility] [id number] [place] [address] 68724- 9144 February, [facility] [id number] [place] [address] 18205- 8155 February, Depression F32.9 and Borderline personality disorder F60.3 [facility] [place] [id number] [place] [address] 56084- 7204 Jan, [facility] [id number] [place] [address] 26112- 8418 Jan, Depression F32.9 and Borderline personality disorder F60.3 [facility] [place] [id number] [place] [address] 25459- 7699 Jan, Acute lateral meniscus tear of right knee, initial encounter S83.281A [facility] [place] [id number] [place] [address] 91100- 1802 Jan, Depression F32.9 and Borderline personality disorder F60.3 [place] [id number] [place] [address] 27675- 7540 Dec, Depression F32.9 and Borderline personality disorder F60.3 [place] [id number] [place] [address] 97443- 5390 Dec, Depression F32.9 and Borderline personality disorder F60.3 [place] [id number] [place] [address] 54015- 8374 Nov, Hyperlipidemia E78.5 ; Knee locking, right M23.91 and Carpal tunnel syndrome of right wrist G56.01 [place] [id number] [place] [address] 00793- 0976 23 Nov, 2016 Bipolar affective, depress, mod F31.32 ; Post-traumatic stress disorder, chronic F43.12 and Borderline personality disorder F60.3 [place] [id number] [place] [address] 01877- 2388 Nov, Depression F32.9 and Borderline personality disorder F60.3 [place] [id number] [place] [address] 75852- 1041 Oct, Post-traumatic stress disorder, chronic F43.12 and 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 [place] [id number] [place] [address] 80817- 3274 Oct, Nondisplaced fracture of distal end of right radius with routine healing, subsequent encounter S52.501D [place] [id number] [place] [address] 36734- 6806 Sep, [place] [id number] [place] [address] 18331- 5439 Aug, Right wrist fracture, closed, initial encounter S62.101A [place] [address] 63666- 2643 Aug, [facility] [id number] [place] [address] 09048- 0596 Jul, Back pain M54.9 and Hyperlipidemia E78.5 [facility] [id number] [place] [address] 33130- 4619 Jul, Post-traumatic stress disorder, chronic F43.12 and Other shelter (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.899 [facility] [id number] [place] [address] 16196- 2371 Apr, Bipolar affective, depress, mod F31.32 ; Post-traumatic stress disorder, chronic F43.12 and 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 [place] [id number] [place] [address] 01594- 1497 Mar, [place] [address] 63546- 3283 Jan, Post-traumatic stress disorder, chronic F43.12 and Depression F32.9 [place] [address] 39826- 1738 Dec, [place] [address] 94870- 1799 Nov, Shoulder pain, left M25.512 and Bronchitis J40 [place] [address] 86980- 4323 Sep, Hyperlipidemia E78.5 [facility] [place] [id number] [place] [address] 35755- 1890 Sep, Hyperlipidemia E78.5 [place] [address] 97358- 7046 Sep, [facility] [place] [address] 28714- 0225 Sep, Back pain M54.9 ; CAD (coronary artery disease) I25.10 and Depression F32.9 [place] [id number] [place] [address] 905661- 9337 Sep, URI (upper respiratory infection) J06.9 ; Nausea & vomiting R11.2 and Tobacco abuse Z72.0 [facility] [id number] [place] [address] 539072- 2444 Mar, Posttraumatic stress disorder 309.81 ; Major depressive disorder, recurrent episode, in partial remission 296.35 ; Nightmares associated with chronic post-traumatic stress disorder 307.47 ; Thoracic or lumbosacral neuritis or radiculitis, unspecified 724.4 ; Borderline personality disorder 301.83 and High risk medication use V58.69 [facility] [place] [address] 784458- 7357 Jan, [facility] [id number] [place] [address] 06605- 1294 Jan, [facility] [place] [id number] [place] [address] 76634- 6028 Dec, [facility] [id number] [place] [address] 37549- 4540 Dec, [facility] [id number] [place] [address] [id number]- 8316 Sep, [facility] [id number] [place] [address] 952749- 8564 Sep, [facility] [id number] [place] [address] 91027- 2791 Sep, [facility] [id number] [place] [address] 937285- 3774 Sep, [facility] [id number] [place] [address] 043203- 4464 Sep, [facility] [id number] [place] [address] 602282- 9460 Jul, [facility] [id number] [place] [address] 70396- 1257 Jul, [facility] [place] [facility] [address] [id number] [place] [address]- 7597 Jul, [facility] [place] [facility] [address] [id number] [place] [address]- 4030 Jul, [facility] [place] [facility] [address] [id number] [place] [address]- 5819 Jul, [facility] [place] [facility] [address] [id number] [place] [address]- 4149 Jul, [facility] [place] [facility] [address] [id number] [place] [address]- 6988 Jul, [facility] [place] [facility] [address] [id number] [place] [address]- 2497 Jul, [facility] [place] [facility] [address] [id number] [place] [address]- 5398 May, [facility] [place] [facility] [address] [id number] [place] [address]- 5385 May, [facility] [place] [facility] [address] [id number] [place] [address]- 1722 May, [facility] [place] [facility] [address] [id number] [place] [address]- 3058 May, [facility] [place] [facility] [address] [id number], [place] [address]- 6388 May, [facility] [place] [facility] [address] [id number], [place] [address]- 7874 May, [facility] [place] [facility] [address] [id number] [place] [address]- 7696 Mar, [facility] [place] [facility] [address] [id number] [place] [address]- 9223 Mar, [facility] [place] [facility] [address] [id number] [place] [address]- 3752 February, [facility] [place] [facility] [address] [id number] [place] [address]- 4558 February, [facility] [place] [facility] [address] [id number] [place] [address]- 8944 February, [facility] [place] [facility] [address] [id number] [place] [address]- 2009 February, [facility] [place] [facility] [address] [id number] [place] [address]- 7150 February, [facility] [place] [facility] [address] [id number] [place] [address]- 7886 February, [facility] [place] [facility] [address] [id number] [place] [address]- 4365 February, [facility] [place] [facility] [address] [id number] [place] [address]- 2983 Jan, [facility] [place] [facility] [address] [id number] [place] [address]- 0317 Jan, [facility] [place] [facility] [address] [id number] [place] [address]- 7797 Jan, [facility] [place] [facility] [address] [id number] [place] [address]- 4772 Jan, [facility] [place] [facility] [address] [id number] [place] [address]- 4515 Dec, [facility] [place] [facility] [address] [id number] [place] [address]- 0276 Dec, [facility] [place] [facility] [address] [id number] [place] [address]- 5316 Dec, [facility] [place] [facility] [address] [id number] [place] [address]- 3276 Dec, [facility] [place] [facility] [address] [id number] [place] [address]- 3303 Nov, [facility] [place] [facility] [address] [id number] [place] [address]- 3872 Nov, [facility] [place] [facility] [address] [id number] [place] [address]- 2332 Nov, [facility] [place] [facility] [address] [id number] [place] [address]- 3157 Nov, [facility] [place] [facility] [address] [id number] [place] [address]- 2978 Nov, [facility] [place] [facility] [address] [id number] [place] [address]- 2453 Nov, [facility] [place] [facility] [address] [id number] [place] [address]- 2517 Nov, [facility] [place] [facility] [address] [id number] [place] [address]- 0277 Nov, [facility] [place] [facility] [address] [id number] [place] [address]- 6939 Oct, [facility] [place] [facility] [address] [id number] [place] [address]- 7109 Oct, [facility] [place] [facility] [address] [id number] [place] [address]- 0100 Oct, [facility] [place] [facility] [address] [id number] [place] [address]- 8090 Oct, [facility] [place] [facility] [address] [id number], [place] [address]- 0486 Oct, [facility] [place] [facility] [address] [id number], [place] [address]- 3663 Oct, [facility] [place] [facility] [address] [id number] [place] [address]- 8067 Oct, [facility] [place] [facility] [address] [id number] [place] [address]- 6190 Oct, [facility] [place] [facility] [address] [id number] [place] [address]- 3345 Oct, [facility] [place] [facility] [address] [id number] [place] [address]- 5887 07 Oct, 2013 [facility] [address] [id number] [place] [address]- 2637 07 Oct, 2013 [facility] [place] [facility] [address] [id number] [place] [address]- 4930 Aug, [facility] [place] [facility] [address] [id number] [place] [address]- 5418 Aug, [facility] [place] [facility] [address] [id number] [place] [address]- 1650 Jul, [facility] [address] [id number] [place] [address]- 6316 Jul, [facility] [place] [facility] [address] [id number] [place] [address]- 2167 Jul, [facility] [address] [id number] [place] [address]- 3679 Jul, [facility] [place] [facility] [address] [id number] [place] [address]- 6514 Jun, [facility] [place] [facility] [address] [id number] [place] [address]- 4713 Jun, [facility] [place] [facility] [address] [facility] [id number] [place] [address]- 8437 Jan, [facility] [place] [facility] [address] [id number] [place] [address]- 8438 Oct, [facility] [place] [facility] [address] [id number] [place] [address]- 7684 Sep, [facility] [place] [facility] [address] [id number] [place] [address] Sep, [facility] [place] [facility] [address] [facility] [id number] [place] [address] Sep, [facility] [place] [facility] [address] [id number], [place] [address] Sep, [facility] [place] [facility] [address] [id number] [place] [address] Aug, [facility] [place] [facility] [address] [id number] [place] [address] Aug, [facility] [place] [facility] [address] [id number] [place] [address] Aug, [facility] [place] [facility] [address] [id number] [place] [address] Aug, [facility] [place] [facility] [address] [id number] [place] [address] Jul, [facility] [place] [facility] [address] [id number] [place] [address] Jul, [facility] [place] [facility] [address] [id number] [place] [address] Jul, [facility] [place] [facility] [address] [id number] [place] [address] Jul, [facility] [place] [facility] [address] [id number] [place] [address] Jul, [facility] [place] [facility] [address] [id number] [place] [address] Jun, [facility] [place] [facility] [address] [id number] [place] [address] Jun, [facility] [place] [facility] [address] [id number] [place] [address] Jun, [facility] [place] [facility] [address] [id number] [place] [address] May, [facility] [place] [facility] [address] [id number] [place] [address] May, [facility] [place] [facility] [address] [id number] [place] [address] Apr, [facility] [place] [facility] [address] [id number] [place] [address] Apr, [facility] [place] [facility] [address] [id number] [place] [address] Apr, [facility] [place] [facility] [address] [id number] [place] [address] Apr, [facility] [place] [facility] [address] [id number] [place] [address] Mar, [facility] [place] [facility] [address] [id number] [place] [address] Mar, [facility] [place] [facility] [address] [id number] [place] [address] Mar, [facility] [place] [facility] [address] [id number] [place] [address] February, [facility] [place] [facility] [address] [id number] [place] [address] February, [facility] [place] [facility] [address] [id number] [place] [address] February, [facility] [place] [facility] [address] [id number] [place] [address] February, [facility] [place] [facility] [address] [id number] [place] [address] February, [facility] [place] [facility] [address] [id number] [place] [address] Jan, [facility] [place] [facility] [address] [id number] [place] [address] Jan, [facility] [place] [facility] [address] [id number] [place] [address] Jan, [facility] [place] [facility] [address] [id number] [place] [address] Dec, [facility] [place] [facility] [address] [id number] [place] [address] Dec, [facility] [place] [facility] [address] [id number] [place] [address] Dec, [facility] [address] [id number] [place] [address] 29 Nov, 2011 [facility] [place] [facility] [address] [id number] [place] [address] 16 Nov, 2011 [facility] [place] [facility] [address] [id number] [place] [address] 07 Nov, 2011 [facility] [place] [facility] [address] [id number] [place] [address] Nov, [facility] [place] [facility] [address] [id number] [place] [address] Oct, [facility] [place] [facility] [address] [facility] [id number] [place] [id number] Oct, [facility] [place] [facility] [address] [facility] [id number] [place] [address] Sep, [facility] [place] [facility] [address] [id number] [place] [address] 30 Sep, 2011 [facility] [place] [facility] [address] [facility] [id number] [place] [address] 14 Sep, 2011 [facility] [place] [facility] [address] [facility] [id number] [place] 05 Sep, 2011 [facility] [place] [facility] [address] [facility] [id number] [place] [address] Aug, [facility] [place] [facility] [address] [id number] [place] [address] 10 Aug, 2011 [facility] [place] [facility] [address] [facility] [id number] [place] [address] 08 Aug, 2011 [facility] [place] [facility] [address] [facility] [id number] [place] [address] Jul, [facility] [place] [facility] [address] [facility] [id number] [place] [address] Jul, [facility] [place] [facility] [address] [id number] [place] [address] 31 Jul, 2011 [facility] [place] [facility] [address] [id number] [place] [address] May, [facility] [place] [facility] [address] [id number] [place] [address] February, [facility] [place] [facility] [address] [id number] [place] [address] 139[address] 17 Nov, 2010 [facility] [place] [facility] [address] [id number] [place] [address] 8068 14 Oct, 2010 [facility] [place] [facility] [address] [id number] [place] [address] Oct, [facility] [place] [facility] [address] [id number] [place] [address] 22 Sep, 2010 [facility] [place] [facility] [address] [id number] [place] [address] 17 Sep, 2010 [facility] [place] [facility] [address] [id number] [place] [address] 17 Sep, 2010 [facility] [place] [facility] [address] [id number] [place] [address] 16 Sep, 2010 [facility] [place] [facility] [address] [id number] [place] [address] 10 Sep, 2010 [facility] [place] [facility] [address] [id number] [place] [address] 10 Sep, 2010 [facility] [place] [facility] [address] [id number] [place] [address] 29 Aug, 2010 [facility] [place] [facility] [address] [id number] [place] [address] 23 Aug, 2010 [facility] [place] [facility] [address] [id number] [place] [address] 18 Aug, 2010 [facility] [place] [facility] [address] [id number] [place] [address]- 57[address] 17 Aug, 2010 [facility] [place] [facility] [address] [id number] [place] [address] 16 Aug, 2010 [facility] [place] [facility] [address] [id number] [place] [address] 2546 25 Jul, 2010 [facility] [place] [facility] [address] [id number] [place] [address]- [address] 16 Jun, 2010 [facility] [place] [facility] [address] [id number] [place] [address] 2543 15 Feb, 2010 [facility] [place] [facility] [address] [id number] [place] [address] Oct, [facility] [place] [facility] [address] [id number] [place] [address] Sep, [facility] [place] [facility] [address] [id number] [place] [address]797 24 Aug, 2009 [facility] [place] [facility] [address] [id number], [place] [address] 03 Aug, 2009 [facility] [place] [facility] [address] [facility] [id number] [place] [address] 14[address] 02 Aug, 2009 [facility] [place] [facility] [address] [facility] [id number], [place] [address] 20 Jul, 2009 [facility] [place] [facility] [address] [id number] [place] [address] 15 Jul, 2009 [facility] [place] [facility] [address] [id number], [place] [address] 2545 15 Jul, 2009 [facility] [place] [facility] [address] [id number] [place] [address] 2548 14 Jun, 2009 [facility] [place] [facility] [address] [id number], [place] [address] 10 Jun, 2009 [facility] [place] [facility] [address] [id number], [place] [address] Mar, [facility] [place] [address] [facility] [id number] [place] [address] Jan, [facility] [place] [address] [facility] [id number] [address] Aug, IMMUNIZATIONS No Known Immunizations SOCIAL HISTORY Never Assessed REASON FOR VISIT med reorder PLAN OF CARE VITAL SIGNS MEDICATIONS Medication Instructions Dosage Frequency Start Date End Date Duration Status Chantix 1 MG Orally Twice a day Starter pack directions 12h Jan, Mar, 30 day(s) Active RESULTS No Results PROCEDURES No Known [...]
--- OUTSIDE RECORDS SUMMARY | 2018-11-13 11:49 | XMS REPORT ---
Author Author MATTHEW ACOSTA Organization [facility] Address [address] [place] [address] Care Team Providers Care Surface Ship Usw Supervisor Name Role Phone MATTHEW ACOSTA Unavailable PROBLEMS Type Condition ICD9-CM Code [id number] Code Onset Dates Condition Status SNOMED Code Problem Borderline personality disorder F60.3 Active 40242830 Problem Post-traumatic stress disorder, chronic F43.12 Active 40465335 Problem Carpal tunnel syndrome of right wrist G56.01 Active [id number] Problem PAD (peripheral artery disease) I73.9 Active 824623964 Problem Anxiety F41.9 Active 27330996 Problem Cannabis use disorder, mild, abuse F12.10 Active 69792037 Problem Bipolar affective, depress, mod F31.32 Active 914802905 Problem Fibromyalgia M79.7 Active 420595760 Problem Cervical radiculopathy M54.12 Active 64227176 Problem CAD (coronary artery disease) I25.10 Active 80247809 Problem Depression F32.9 Active 10599272 Problem Back pain M54.9 Active 358335685 Problem Tobacco abuse Z72.0 Active 54957215 Problem Hyperlipidemia E78.5 Active 85245596 ALLERGIES No Information ENCOUNTERS Encounter Location Date Diagnosis [place] [address] [address] Jul, [facility] [id number] [place] [address] 39916- 4547 May, [place] [address] [place] [id number] [place] [address] 97035- 1676 Apr, Post-traumatic stress disorder, chronic F43.12 ; Bipolar affective, depress, mod F31.32 ; Borderline personality disorder F60.3 and Cannabis use disorder, mild, abuse F12.10 [place] [address] [place] [address] 51999- 8510 Apr, Cervical radiculopathy M54.12 ; Back pain M54.9 ; Fibromyalgia M79.7 and High risk heterosexual behavior Z72.51 [place] [address] [place] [address] 91062- 4182 Apr, [place] [address] [place] [id number] [place] [address] 13920- 4661 Mar, Bipolar affective, depress, mod F31.32 ; Post-traumatic stress disorder, chronic F43.12 ; Borderline personality disorder F60.3 and Cannabis use disorder, mild, abuse F12.10 [place] [address] [place] [id number] [place] [address] 65922- 7649 Mar, Tobacco abuse Z72.0 [place] [address] [place] [id number] [place] [address] 96325- 1651 Mar, [place] [address] [place] [id number] [place] [address] 17518- 3786 February, Fibromyalgia M79.7 [place] [address] [place] [id number] [place] [address] 04358- 2169 Jan, Post-traumatic stress disorder, chronic F43.12 ; Bipolar affective, depress, mod F31.32 ; Borderline personality disorder F60.3 and Cannabis use disorder, mild, abuse F12.10 [place] [address] [place] [address] 54596- 3469 Jan, [place] [address] [place] [id number] [place] [address] 31421- 5848 Dec, Bipolar affective, depress, mod F31.32 ; Post-traumatic stress disorder, chronic F43.12 ; Borderline personality disorder F60.3 and Cannabis use disorder, mild, abuse F12.10 [place] [address] [place] [address] 93239- 1847 Dec, Hoarseness R49.0 ; Bronchitis J40 ; PAD (peripheral artery disease) I73.9 and Tobacco abuse Z72.0 [place] [address] [address] 15 Nov, 2017 Bipolar affective, depress, mod F31.32 ; Post-traumatic stress disorder, chronic F43.12 ; Borderline personality disorder F60.3 and Cannabis use disorder, mild, abuse F12.10 [place] [address] [place] [id number] [place] [address] 31416- 0037 Oct, Post-traumatic stress disorder, chronic F43.12 ; Bipolar affective, depress, mod F31.32 ; Borderline personality disorder F60.3 and Cannabis use disorder, mild, abuse F12.10 [place] [address] [place] [id number] [place] [address] 35515- 376 Oct, Bipolar affective, depress, mod F31.32 ; Post-traumatic stress disorder, chronic F43.12 and Borderline personality disorder F60.3 [place] [id number] [place] [address] 71659- 9673 Sep, Anxiety F41.9 [place] [id number] [place] [address] 94544- 7019 Aug, Bipolar affective, depress, mod F31.32 ; Post-traumatic stress disorder, chronic F43.12 and Borderline personality disorder F60.3 [place] [address] [place] [address] 34180- 8071 Aug, Bipolar affective, depress, mod F31.32 ; Post-traumatic stress disorder, chronic F43.12 and Borderline personality disorder F60.3 [place] [address] [place] [address] 17705- 7908 Aug, Fibromyalgia M79.7 ; Back pain M54.9 and Cervical radiculopathy M54.12 [place] [id number] [place] [address] Aug, Bipolar affective, depress, mod F31.32 and Post-traumatic stress disorder, chronic F43.12 [place] [id number] [place] [address] 65594- 5727 Jul, Depression F32.9 ; Borderline personality disorder F60.3 and Bipolar affective, depress, mod F31.32 [place] [address] [place] [id number] [place] [address] Jul, Post-traumatic stress disorder, chronic F43.12 ; Bipolar affective, depress, mod F31.32 ; Borderline personality disorder F60.3 and Cannabis use disorder, mild, abuse F12.10 [place] [address] [place] [id number] [place] [address] 56[address] Jul, Other fpc (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.899 [place] [address] [place] [address]- 1674 Jun, [place] [address] [place] [id number] [place] [address] 02752- 6604 Jun, Depression F32.9 ; Borderline personality disorder F60.3 and Bipolar affective, depress, mod F31.32 [place] [address] [place] [id number] [place] [address] 43220- 3599 Jun, Depression F32.9 and Borderline personality disorder F60.3 [place] [address] [place] [id number] [place] [address]45 May, Post-traumatic stress disorder, chronic F43.12 [place] [address] [place] [id number] [place] [address] 89552- 8439 May, Depression F32.9 and Borderline personality disorder F60.3 [place] [address] [place] [id number] [place] [address] 13747- 0580 Apr, Post-traumatic stress disorder, chronic F43.12 ; Bipolar affective, depress, mod F31.32 ; Borderline personality disorder F60.3 ; Other 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.899 and Cannabis use disorder, mild, abuse F12.10 [place] [address] [place] [address] 34048- 6154 Apr, Depression F32.9 and Borderline personality disorder F60.3 [facility] [address] [place] [id number] [place] [address] 31209- 3084 Apr, Depression F32.9 and Borderline personality disorder F60.3 [facility] [address] [place] [id number] [place] [address] 25665- 2406 Mar, Depression F32.9 and Borderline personality disorder F60.3 [facility] [address] [place] [id number] [place] [address] 08935- 5236 February, Depression F32.9 and Borderline personality disorder F60.3 [facility] [address] [place] [id number] [place] [address] 22461- 7516 February, Back pain M54.9 [facility] [address] [place] [id number] [place] [address] 78113- 7801 February, Depression F32.9 and Borderline personality disorder F60.3 [facility] [address] [place] [id number] [place] [address] 37589- 7575 February, Post-traumatic stress disorder, chronic F43.12 ; Borderline personality disorder F60.3 and Bipolar affective disorder, depressed, mild F31.31 [facility] [address] [place] [id number] [place] [address] 93515- 4281 February, [facility] [address] [place] [id number] [place] [address] 28633- 1930 February, Depression F32.9 and Borderline personality disorder F60.3 [facility] [address] [place] [id number] [place] [address] 17796- 0855 Jan, [facility] [address] [place] [id number] [place] [address] 87921- 1178 Jan, Depression F32.9 and Borderline personality disorder F60.3 [facility] [address] [place] [id number] [place] [address] 93234- 5850 Jan, Acute lateral meniscus tear of right knee, initial encounter S83.281A [facility] [address] [place] [address]- 7262 Jan, Depression F32.9 and Borderline personality disorder F60.3 [place] [address] 92891- 3312 Dec, Depression F32.9 and Borderline personality disorder F60.3 [place] [address] 13560- 1138 Dec, Depression F32.9 and Borderline personality disorder F60.3 [place] [address] 63692- 6275 Nov, Hyperlipidemia E78.5 ; Knee locking, right M23.91 and Carpal tunnel syndrome of right wrist G56.01 [place] [address] 01097- 3130 23 Nov, 2016 Bipolar affective, depress, mod F31.32 ; Post-traumatic stress disorder, chronic F43.12 and Borderline personality disorder F60.3 [place] [address] 13513- 7612 Nov, Depression F32.9 and Borderline personality disorder F60.3 [place] [address] 25054- 6731 Oct, Post-traumatic stress disorder, chronic F43.12 and Other fpc (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.899 [place] [address] 97425- 8106 Oct, Nondisplaced fracture of distal end of right radius with routine healing, subsequent encounter S52.501D [place] [address] 20062- 9204 Sep, [place] [address] 59477- 4100 Aug, Right wrist fracture, closed, initial encounter S62.101A [place] [address] 21697- 9764 Aug, [facility] [address] [place] [id number] [place] [address] 39990- 9671 Jul, Back pain M54.9 and Hyperlipidemia E78.5 [facility] [address] [place] [id number] [place] [address] 03254- 7097 Jul, Post-traumatic stress disorder, chronic F43.12 and Other fpc (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.899 [facility] [address] 20801- 9720 Apr, Bipolar affective, depress, mod F31.32 ; Post-traumatic stress disorder, chronic F43.12 and Other fpc (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.899 [facility] [address] [place] [id number] [place] [address] 74444- 9523 Mar, [facility] [address] 83448- 1227 Jan, Post-traumatic stress disorder, chronic F43.12 and Depression F32.9 [facility] [address] [place] [id number] [place] [address] 47457- 4266 Dec, [facility] [address] 36899- 8944 Nov, Shoulder pain, left M25.512 and Bronchitis J40 [facility] [address] 07794- 6277 Sep, Hyperlipidemia E78.5 [facility] [address] 65322- 3453 Sep, Hyperlipidemia E78.5 [facility] [address] 15611- 3957 Sep, [facility] [address] [place] [id number] [place] [address] 47687- 7485 Sep, Back pain M54.9 ; CAD (coronary artery disease) I25.10 and Depression F32.9 [place] [address] [place] [id number] [place] [address] 99045- 4949 Sep, URI (upper respiratory infection) J06.9 ; Nausea & vomiting R11.2 and Tobacco abuse Z72.0 [facility] [address] [place] [id number] [place] [address] 26735- 2609 Mar, Posttraumatic stress disorder 309.81 ; Major depressive disorder, recurrent episode, in partial remission 296.35 ; Nightmares associated with chronic post-traumatic stress disorder 307.47 ; Thoracic or lumbosacral neuritis or radiculitis, unspecified 724.4 ; Borderline personality disorder 301.83 and High risk medication use V58.69 [facility] [address] 00188- 5220 Jan, [facility] [address] 11803- 7696 Jan, [facility] [address] 02030- 4720 Dec, [facility] [address] [place] [id number] [place] [address] 86096- 2455 Dec, [facility] [address] [place] [id number] [place] [address] 27245- 1683 Sep, [facility] [address] [place] [id number] [place] [address] 06622- 8534 Sep, [facility] [address] [place] [id number] [place] [address] 76226- 5831 Sep, [facility] [address] [place] [id number] [place] [address] 38763- 7536 Sep, [facility] [address] 23552- 0212 Sep, [facility] [address] [place] [id number] [place] [address] 58208- 6642 Jul, [facility] [address] 83839- 2583 Jul, [facility] [place] [facility] [address] [id number] [place] [address]- 6385 Jul, [facility] [place] [facility] [address] [id number] [place]36 Jul, [facility] [place] [facility] [address] [id number] [place] [address]- 3769 Jul, [facility] [place] [facility] [address] [id number] [place] [address]- 4224 Jul, [facility] [place] [facility] [address] [id number] [place] [address]- 2042 Jul, [facility] [place] [facility] [address] [id number] [place] [address]- 6543 Jul, [facility] [place] [facility] [address] [id number] [place] [address]- 2804 May, [facility] [place] [facility] [address] [id number] [place] [address]- 6805 May, [facility] [place] [facility] [address] [id number] [place] [address]- 6561 May, [facility] [place] [facility] [address] [id number] [place] [address]- 5586 May, [facility] [place] [facility] [address] [id number] [place] [address]- 3532 May, [facility] [place] [facility] [address] [id number] [address]- 3641 May, [facility] [place] [facility] [address] [id number] [place] [address]- 3142 Mar, [facility] [place] [facility] [address] [id number] [place] [address]- 9902 Mar, [facility] [place] [facility] [address] [id number] [place] [address]- 3901 February, [facility] [place] [facility] [address] [id number] [place] [address]- 6967 February, [facility] [address] [id number] [place] [address]- 1342 February, [facility] [place] [facility] [address] [id number] [place] [address]- 1495 February, [facility] [address] [id number] [place] [address]- 1067 February, [facility] [address] [id number] [place] [address]- 0952 February, [facility] [address] [id number] [place] [address]- 5962 February, [facility] [address] [id number] [place] [address]- 5064 Jan, [facility] [place] [facility] [address] [id number] [place] [address]- 2796 Jan, [facility] [address] [id number] [place] [address]- 8732 Jan, [facility] [place] [facility] [address] [id number] [place] [address]- 4681 Jan, [facility] [address] [id number] [place] [address]- 9207 Dec, [facility] [place] [facility] [address] [id number] [place] [address]- 5168 Dec, [facility] [place] [facility] [address] [id number] [place] [address]- 6905 Dec, [facility] [place] [facility] [address] [id number] [place] [address]- 2590 Dec, [facility] [place] [facility] [address] [id number] [place] [address]- 5797 Nov, [facility] [place] [facility] [address] [id number] [place] [address]- 5748 Nov, [facility] [place] [facility] [address] [id number] [place] [address]- 7797 Nov, [facility] [place] [facility] [address] [id number] [place] [address]- 5641 Nov, [facility] [place] [facility] [address] [id number] [place] [address]- 1492 Nov, [facility] [place] [facility] [address] [id number] [place] [address]- 6934 Nov, [facility] [place] [facility] [address] [id number] [place] [address]- 3799 Nov, [facility] [place] [facility] [address] [id number] [place] [address]- 7529 Nov, [facility] [place] [facility] [address] [id number] [place] [address]- 1008 Oct, [facility] [place] [facility] [address] [id number] [place] [address]- 2119 Oct, [facility] [place] [facility] [address] [id number] [place] [address]- 0675 Oct, [facility] [place] [facility] [address] [id number] [place] [address]- 5978 Oct, [facility] [place] [facility] [address] [id number] [place] [address]- 7552 Oct, [facility] [place] [facility] [address] [id number] [place] [address]- 3256 Oct, [facility] [place] [facility] [address] [id number] [place] [address]- 1275 Oct, [facility] [place] [facility] [address] [id number] [place] [address]- 5468 Oct, [facility] [place] [facility] [address] [id number] [place] [address]- 9973 Oct, [facility] [place] [facility] [address] [id number] [place] [address]- 3559 07 Oct, 2013 [facility] [address] [id number] [place] [address]- 7457 Oct, [facility] [address] [id number] [place] [address]- 5479 Aug, [facility] [address] [id number] [place] [address]- 5479 Aug, [facility] [address] [id number] [place] [address]- 9649 Jul, [facility] [address] [id number] [place] [address], [place] [address]- 7932 Jul, [facility] [address] [id number] [place] [address]- 4207 Jul, [facility] [address] [id number] [place] [address]- 9786 Jul, [facility] [address] [id number] [place] [address]- 8530 Jun, [facility] [address] [facility] [id number] [place] [address]- 6998 Jun, [facility] [address] [facility] [id number] [place] [address]- 1777 Jan, [facility] [address] [id number] [place] [address]- 3159 Oct, [facility] [address] [id number] [place] [address]- 2298 Sep, [facility] [place] [facility] [address] [id number] [place] [address]- 2859 Sep, [facility] [address] [facility] [id number] [place] [address]- 2737 Sep, [facility] [address] [facility] [id number] [place] [address]- 3490 Sep, [facility] [place] [facility] [address] [id number] [place] [address]- 1230 Aug, [facility] [place] [facility] [address] [id number] [place] [address]- 1046 Aug, [facility] [place] [facility] [address] [id number] [place] [address]- 1336 Aug, [facility] [place] [facility] [address] [id number] [place] [address]- 7196 Aug, [facility] [place] [facility] [address] [id number] [place] [address]- 3284 Jul, [facility] [place] [facility] [address] [id number] [place] [address]- 5256 Jul, [facility] [place] [facility] [address] [facility] [id number] [place] [address]- 5995 Jul, [facility] [place] [facility] [address] [id number] [place] [address]- 8449 Jul, [facility] [place] [facility] [address] [facility] [id number] [place] [address]- 9982 Jul, [facility] [place] [facility] [address] [facility] [id number][place] [address]- 7247 Jun, [facility] [place] [facility] [address] [facility] [id number], [place] [address]- 1566 Jun, [facility] [place] [facility] [address] [id number], [place] [address]- 8294 Jun, [facility] [place] [facility] [address] [id number] [place] [address]- 4490 May, [facility] [place] [facility] [address] [id number], [place] [address]- 6526 May, [facility] [place] [facility] [address] [facility] [id number], [place] [address]- 7392 Apr, [facility] [place] [facility] [address] [id number], [place] [address] Apr, [facility] [address] [id number] [place] [address] Apr, [facility] [place] [facility] [address] [id number] [place] [address] Apr, [facility] [place] [facility] [address] [id number] [place] [address] Mar, [facility] [place] [facility] [address] [id number] [place] [address] Mar, [facility] [place] [facility] [address] [id number] [place] [address] Mar, [facility] [place] [facility] [address] [id number] [place] [address] February, [facility] [address] [id number] [place] [address] February, [facility] [place] [facility] [address] [id number] [place] [address] February, [facility] [place] [facility] [address] [id number] [place] [address] February, [facility] [place] [facility] [address] [facility] [id number] [place] [address] February, [facility] [place] [facility] [address] [id number] [place] [address] Jan, [facility] [place] [facility] [address] [id number] [place] [address] Jan, [facility] [place] [facility] [address] [id number] [place] [address] Jan, [facility] [place] [facility] [address] [id number] [place] [address] Dec, [facility] [place] [facility] [address] [facility] [id number] [place] [address] Dec, [facility] [place] [facility] [address] [id number] [place] [address] Dec, [facility] [place] [facility] [address] [id number] [place] [address] 29 Nov, 2011 [facility] [place] [facility] [address] [id number] [place] [address] 16 Nov, 2011 [facility] [place] [facility] [address] [id number] [place] [address] 07 Nov, 2011 [facility] [place] [facility] [address] [id number] [place] [address] 06 Nov, 2011 [facility] [place] [facility] [address] [id number] [place] [address] 30 Oct, 2011 [facility] [place] [facility] [address] [facility] [id number] [place] [address] Oct, [facility] [place] [facility] [address] [facility] [id number] [place] [address] Sep, [facility] [place] [facility] [address] [id number] [place] [address] 30 Sep, 2011 [facility] [place] [facility] [address] [facility] [id number] [place] [address]26 [address] [facility] [place] [facility] [address] [facility] [id number] [place] [address] 05 Sep, 2011 [facility] [place] [facility] [address] [id number] [place] [address] 28 Aug, 2011 [facility] [place] [facility] [address] [id number] [place] [address] 10 Aug, 2011 [facility] [place] [facility] [address] [id number] [place] [address] 08 Aug, 2011 [facility] [place] [facility] [address] [id number] [place] [address] 31 Jul, 2011 [facility] [place] [facility] [address] [id number] [place] [address] Jul, [facility] [address] [id number] [place] [address] Jul, [facility] [place] [facility] [address] [id number] [place] [address] May, [facility] [place] [facility] [address] [id number] [place] [address] February, [facility] [place] [facility] [address] [id number] [place] [address] 17 Nov, 2010 [facility] [place] [facility] [address] [id number] [place] 14 Oct, 2010 [facility] [place] [facility] [address] [id number] [place] [address] 10 Oct, 2010 [facility] [place] [facility] [address] [id number] [place] [address] 22 Sep, 2010 [facility] [place] [facility] [address] [id number] [place] [address] 17 Sep, 2010 [facility] [place] [facility] [address] [id number] [place] [address] 17 Sep, 2010 [facility] [place] [facility] [address] [id number] [place] [address] 16 Sep, 2010 [facility] [place] [facility] [address] [id number] [place] [address] 10 Sep, 2010 [facility] [place] [facility] [address] [id number] [place] [address] 99[address] 10 Sep, 2010 [facility] [place] [facility] [address] [id number] [place] [address]48 29 Aug, 2010 [facility] [place] [facility] [address] [id number] [place] [address] 23 Aug, 2010 [facility] [place] [facility] [address] [id number] [place] [address] 254 18 Aug, 2010 [facility] [place] [facility] [address] [id number] [place] [address] 3995 17 Aug, 2010 [facility] [address] [id number] [place] [address] 16 Aug, 2010 [facility] [place] [facility] [address] [id number] [place] [address] 25 Jul, 2010 [facility] [address] [id number] [place] [address]497 16 Jun, 2010 [facility] [address] [id number] [place] [address] 8676 15 Feb, 2010 [facility] [address] [id number] [place] [address], [place] [address] Oct, [facility] [address] [id number] [place] [address] Sep, [facility] [address] [id number] [place] [address] 8583 24 Aug, 2009 [facility] [address] [id number] [place] [address] 03 Aug, 2009 [facility] [address] [facility] [id number] [place] [address]70 02 Aug, 2009 [facility] [address] [facility] [id number] [place] [address] 20 Jul, 2009 [facility] [place] [facility] [address] [id number] [place] [address] 15 Jul, 2009 [facility] [address] [id number] [address] 15 Jul, 2009 [facility] [place] [facility] [address] [id number] [place] [address]7 14 Jun, 2009 [facility] [place] [facility] [address] [id number] [place] [address]45 10 Jun, 2009 [facility] [place] [facility] [address] [id number] [place] [address] Mar, [facility] [address] [facility] [id number] [place] [id number] Jan, [facility] [address] [facility] [id number] [place] [address] Aug, IMMUNIZATIONS No Known Immunizations SOCIAL HISTORY Never Assessed REASON FOR VISIT f/u PLAN OF CARE Activity Details Follow Up 2 Weeks Reason: VITAL SIGNS MEDICATIONS Unknown Medications RESULTS No Results PROCEDURES Procedure Date Ordered Result Body Site Psychotherapy, patient &/family, 30 minutes, established patient January 22, 2018 INSTRUCTIONS MEDICATIONS ADMINISTERED No Known [...]
--- OUTSIDE RECORDS SUMMARY | 2018-11-13 11:49 | XMS REPORT ---
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 Name Role Phone MATTHEW ACOSTA Unavailable PROBLEMS Type Condition ICD9-CM Code DEB21-ZH Code Onset Dates Condition Status SNOMED Code Problem Borderline personality disorder F60.3 Active 83596632 Problem Post-traumatic stress disorder, chronic F43.12 Active 89752452 Problem Carpal tunnel syndrome of right wrist G56.01 Active [id number] Problem PAD (peripheral artery disease) I73.9 Active 784381518 Problem Anxiety F41.9 Active 30157582 Problem Cannabis use disorder, mild, abuse F12.10 Active 69425943 Problem Bipolar affective, depress, mod F31.32 Active 595122146 Problem Fibromyalgia M79.7 Active 730453278 Problem Cervical radiculopathy M54.12 Active 10315999 Problem CAD (coronary artery disease) I25.10 Active 36118418 Problem Depression F32.9 Active 93306221 Problem Back pain M54.9 Active 269892005 Problem Tobacco abuse Z72.0 Active 01925215 Problem Hyperlipidemia E78.5 Active 81090040 ALLERGIES Substance Reaction Event Type Date Status Aspir-81 nausea Drug Allergy Mar, Active IV Dye nausea Non Drug Allergy Mar, Active ENCOUNTERS Encounter Location Date Diagnosis [facility] [id number] [address] Jan, [facility] [address] [address] Dec, [facility] [address] [address] Dec, Hoarseness R49.0 ; Bronchitis J40 and PAD (peripheral artery disease) I73.9 [facility] [id number] [place] [address] 15 Nov, 2017 Bipolar affective, depress, mod F31.32 ; Post-traumatic stress disorder, chronic F43.12 ; Borderline personality disorder F60.3 and Cannabis use disorder, mild, abuse F12.10 [address] [address] [id number] [place] [address] 25680- 816 Oct, Post-traumatic stress disorder, chronic F43.12 ; Bipolar affective, depress, mod F31.32 ; Borderline personality disorder F60.3 and Cannabis use disorder, mild, abuse F12.10 [facility] [facility] [id number] [place] [address] 03285- 816 Oct, Bipolar affective, depress, mod F31.32 ; Post-traumatic stress disorder, chronic F43.12 and Borderline personality disorder F60.3 [id number] [place] [address] 27755- 683 Sep, Anxiety F41.9 [address]- [address] Aug, Bipolar affective, depress, mod F31.32 ; Post-traumatic stress disorder, chronic F43.12 and Borderline personality disorder F60.3 [id number] [place] [address] 96715- 9898 Aug, Bipolar affective, depress, mod F31.32 ; Post-traumatic stress disorder, chronic F43.12 and Borderline personality disorder F60.3 [id number] [place] [address] Aug, Fibromyalgia M79.7 ; Back pain M54.9 and Cervical radiculopathy M54.12 [address] [address]- [address] Aug, Bipolar affective, depress, mod F31.32 and Post-traumatic stress disorder, chronic F43.[address] [address]- [address] Jul, Depression F32.9 ; Borderline personality disorder F60.3 and Bipolar affective, depress, mod F31.32 [place] [address] [place] [address] Jul, Post-traumatic stress disorder, chronic F43.12 ; Bipolar affective, depress, mod F31.32 ; Borderline personality disorder F60.3 and Cannabis use disorder, mild, abuse F12.10 [place] [id number] [place] [address] Jul, 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 [address] [id number] [place] [address] Jun, [place] [address]11467- 3145 Jun, Depression F32.9 ; Borderline personality disorder F60.3 and Bipolar affective, depress, mod F31.32 [place] [id number] [place] [address] 69910- 5792 Jun, Depression F32.9 and Borderline personality disorder F60.3 [place] [id number] [place] [address] [address] May, Post-traumatic stress disorder, chronic F43.12 [place] [id number] [place] [address] 48538- 6268 May, Depression F32.9 and Borderline personality disorder F60.3 [place] [id number] [place] [address] 16338- 1677 Apr, Post-traumatic stress disorder, chronic F43.12 ; Bipolar affective, depress, mod F31.32 ; Borderline personality disorder F60.3 ; Other retirement (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.899 and Cannabis use disorder, mild, abuse F12.10 [place] [id number] [place] [address] 88586- 7818 Apr, Depression F32.9 and Borderline personality disorder F60.3 [place] [id number] [place] [address] 66911- 0742 Apr, Depression F32.9 and Borderline personality disorder F60.3 [facility] [id number] [place] [address] 82289- 9246 Mar, Depression F32.9 and Borderline personality disorder F60.3 [facility] [address] [address]- [address]86 February, Depression F32.9 and Borderline personality disorder F60.3 [facility] [id number] [place] [address] 50875- 5191 February, Back pain M54.9 [facility] [id number] [place] [address] 45584- 4970 February, Depression F32.9 and Borderline personality disorder F60.3 [facility] [id number] [place] [address] 80250- 5126 February, Post-traumatic stress disorder, chronic F43.12 ; Borderline personality disorder F60.3 and Bipolar affective disorder, depressed, mild F31.31 [facility] [id number] [place] [address] 91874- 5741 February, [facility] [id number] [place] [address] 64948- 5429 February, Depression F32.9 and Borderline personality disorder F60.3 [facility] [id number] [place] [address] 02706- 2427 Jan, [facility] [id number] [place] [address] 79177- 5629 Jan, Depression F32.9 and Borderline personality disorder F60.3 [facility] [id number] [place] [address] 13491- 0363 Jan, Acute lateral meniscus tear of right knee, initial encounter S83.281A [facility] [address] [address]183- 2185 Jan, Depression F32.9 and Borderline personality disorder F60.3 [place] [id number] [place] [address] 99841- 9661 Dec, Depression F32.9 and Borderline personality disorder F60.3 [place] [id number] [place] [address] 49611- 6168 Dec, Depression F32.9 and Borderline personality disorder F60.3 [address] [address] 69893- 8539 Nov, Hyperlipidemia E78.5 ; Knee locking, right M23.91 and Carpal tunnel syndrome of right wrist G56.01 [place] [id number] [place] [address] 56897- 0708 23 Nov, 2016 Bipolar affective, depress, mod F31.32 ; Post-traumatic stress disorder, chronic F43.12 and Borderline personality disorder F60.3 [place] [id number] [place] [address] 52506- 3210 16 Nov, 2016 Depression F32.9 and Borderline personality disorder F60.3 [place] [address] 60072- 5688 Oct, Post-traumatic stress disorder, chronic F43.12 and Other retirement (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.899 [place] [address] 88310- 1814 Oct, Nondisplaced fracture of distal end of right radius with routine healing, subsequent encounter S52.501D [place] [id number] [place] [address] 14770- 6590 Sep, [place] [address] 90665- 4502 Aug, Right wrist fracture, closed, initial encounter S62.101A [place] [address] 03947- 3555 Aug, [facility] [id number] [place] [address] 95413- 3886 Jul, Back pain M54.9 and Hyperlipidemia E78.5 [facility] [id number] [place] [address] 41696- 9219 Jul, Post-traumatic stress disorder, chronic F43.12 and Other retirement (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.899 [facility] [address] 92271- 4885 Apr, Bipolar affective, depress, mod F31.32 ; Post-traumatic stress disorder, chronic F43.12 and Other retirement (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.899 [place] [id number] [place] [address] 27918- 5065 Mar, [place] [id number] [place] [address] 34197- 9903 Jan, Post-traumatic stress disorder, chronic F43.12 and Depression F32.9 [place] [id number] [place] [address] 61489- 5363 Dec, [place] [address] 63097- 4687 Nov, Shoulder pain, left M25.512 and Bronchitis J40 [place] [id number] [place] [address] 54012- 2445 Sep, Hyperlipidemia E78.5 [facility] [address] 47021- 0654 Sep, Hyperlipidemia E78.5 [address] [address] 14641- 5345 Sep, [facility] [address] 54224- 6224 Sep, Back pain M54.9 ; CAD (coronary artery disease) I25.10 and Depression F32.9 [address] [id number] [place] [address]- 1365 Sep, URI (upper respiratory infection) J06.9 ; Nausea & vomiting R11.2 and Tobacco abuse Z72.0 [facility] [id number] [place] [address] 383793- 5830 Mar, Posttraumatic stress disorder 309.81 ; Major depressive disorder, recurrent episode, in partial remission 296.35 ; Nightmares associated with chronic post-traumatic stress disorder 307.47 ; Thoracic or lumbosacral neuritis or radiculitis, unspecified 724.4 ; Borderline personality disorder 301.83 and High risk medication use V58.69 [facility] [address] 554714- 0463 Jan, [facility] [address] 32848- 4287 Jan, [facility] [address] 76906- 4886 Dec, [facility] [id number] [place] [address] 19335- 5528 Dec, [facility] [address] 63771- 1799 Sep, [facility] [id number] [place] [address] 94475- 7010 Sep, [facility] [id number] [place] [address] 60335- 3723 Sep, [facility] [id number] [place] [address] 411825- 3199 Sep, [facility] [address] 425944- 9550 Sep, [facility] [id number] [place] [address] [id number]- 2553 Jul, [facility] [address] 242454- 7187 Jul, [facility] [place] [facility] [address] [id number] [place] [address]- 2069 Jul, [facility] [place] [facility] [address] [id number] [place] [address]- 9550 Jul, [facility] [place] [facility] [address] [id number] [place] 9047 Jul, [facility] [place] [facility] [address] [id number] [place] [address]- 3095 Jul, [facility] [place] [facility] [address] [id number] [place] [address]- 6107 Jul, [facility] [place] [facility] [address] [id number] [place] [address]- 8677 Jul, [facility] [place] [facility] [address] [id number] [place] [address]- 5713 May, [facility] [place] [facility] [address] [id number] [place] [address]- 2639 May, [facility] [place] [facility] [address] [id number] [place] [address]- 9100 May, [facility] [place] [facility] [address] [id number] [place] [address]- 1868 May, [facility] [place] [facility] [address] [id number] [place] [address]- 9783 May, [facility] [place] [facility] [address] [id number], [place] [address]- 9224 May, [facility] [place] [facility] [address] [id number] [place] [address]- 3803 Mar, [facility] [place] [facility] [address] [id number] [place] [address]- 1057 Mar, [facility] [place] [facility] [address] [id number] [place] [address]- 1240 February, [facility] [place] [facility] [address] [id number], [place] [address]- 3055 February, [facility] [address] [id number] [place] [address]- 6262 February, [facility] [place] [facility] [address] [id number] [place] [address]- 9715 February, [facility] [place] [facility] [address] [id number] [place] [address]- 0962 February, [facility] [place] [facility] [address] [id number] [place] [address]- 4013 February, [facility] [place] [facility] [address] [id number] [place] [address]- 3834 February, [facility] [place] [facility] [address] [id number] [place] [address]- 3657 Jan, [facility] [place] [facility] [address] [id number] [place] [address]- 0674 Jan, [facility] [place] [facility] [address] [id number] [place] [address]- 0200 Jan, [facility] [place] [facility] [address] [id number] [place] [address]- 1600 Jan, [facility] [place] [facility] [address] [id number] [place] [address]- 9297 Dec, [facility] [place] [facility] [address] [id number] [place] [address]- 7104 Dec, [facility] [place] [facility] [address] [id number] [place] [address]- 9321 Dec, [facility] [place] [facility] [address] [id number] [place] [address]- 1077 Dec, [facility] [place] [facility] [address] [id number] [place] [address]- 9874 Nov, [facility] [place] [facility] [address] [id number] [place] [address]- 6826 Nov, [facility] [place] [facility] [address] [id number] [place] [address]- 9690 Nov, [facility] [place] [facility] [address] [id number] [place] [address]- 2377 Nov, [facility] [place] [facility] [address] [id number] [place] [address]- 3162 Nov, [facility] [place] [facility] [address] [id number] [place] [address]- 6490 Nov, [facility] [place] [facility] [address] [id number] [place] [address]- 8595 Nov, [facility] [place] [facility] [address] [id number] [place] [address]- 5033 Nov, [facility] [place] [facility] [address] [id number] [place] [address]- 6123 Oct, [facility] [place] [facility] [address] [id number] [place] [address]- 3101 Oct, [facility] [place] [facility] [address] [id number] [place] [address]- 7601 Oct, [facility] [place] [facility] [address] [id number] [place] [address]- 7804 Oct, [facility] [place] [facility] [address] [id number], [place] [address]- 4887 Oct, [facility] [place] [facility] [address] [id number], [place] [address]- 0572 Oct, [facility] [place] [facility] [address] [id number] [place] [address]- 5118 Oct, [facility] [place] [facility] [address] [id number] [place] [address]- 5707 Oct, [facility] [place] [facility] [address] [id number], [place] [address]- 4976 Oct, [facility] [place] [facility] [address] [id number], [place] [address]- 3530 07 Oct, 2013 [facility] [address] [id number] [place] [address]- 1512 Oct, [facility] [place] [facility] [address] [id number] [place] [address]- 1039 Aug, [facility] [place] [facility] [address] [facility] [id number] [place] [address]- 7269 Aug, [facility] [place] [facility] [address] [id number] [place] [address]- 7857 Jul, [facility] [place] [facility] [address] [id number] [place] 4359 Jul, [facility] [place] [facility] [address] [facility] [id number] [place] [address]- 4313 Jul, [facility] [place] [facility] [address] [facility] [id number] [place] [address]- 2041 Jul, [facility] [place] [facility] [address] [facility] [id number] [place] [address]- 8773 Jun, [facility] [place] [facility] [address] [facility] [id number] [place] [address]- 2100 Jun, [facility] [place] [facility] [address] [facility] [id number] [place] [address]- 2784 Jan, [facility] [place] [facility] [address] [facility] [id number], [place] [address]- 8724 Oct, [facility] [place] [facility] [address] [facility] [id number], [place] [address]- 0808 Sep, [facility] [place] [facility] [address] [id number] [place] [address]- 3762 Sep, [facility] [place] [facility] [address] [facility] [id number] [place] [address]- 2471 Sep, [facility] [place] [facility] [address] [facility] [id number] [place] [address]- 9654 Sep, [facility] [place] [facility] [address] [id number] [place] [address]- 8306 Aug, [facility] [place] [facility] [address] [id number] [place] [address]- 1437 Aug, [facility] [place] [facility] [address] [id number] [place] [address]- 2546 Aug, [facility] [place] [facility] [address] [id number] [place] [address]- 4715 Aug, [facility] [place] [facility] [address] [id number] [place] [address]- 2097 Jul, [facility] [place] [facility] [address] [id number] [place] [address]- 8292 Jul, [facility] [place] [facility] [address] [id number] [place] [address]- 2757 Jul, [facility] [place] [facility] [address] [id number] [place] [address]- 1088 Jul, [facility] [place] [facility] [address] [id number] [place] [address]- 6945 Jul, [facility] [place] [facility] [address] [id number] [place] [address]- 5059 Jun, [facility] [place] [facility] [address] [id number] [place] [address]- 4562 Jun, [facility] [place] [facility] [address] [id number] [place] [address]- 3814 Jun, [facility] [place] [facility] [address] [id number] [place] [address]- 2539 May, [facility] [place] [facility] [address] [id number] [place] [address]- 0036 May, [facility] [place] [facility] [address] [id number] [place] [address]- 2386 Apr, [facility] [place] [facility] [address] [id number] [place] [address]- 0809 Apr, [facility] [place] [facility] [address] [id number] [place] [address]- 9591 Apr, [facility] [place] [facility] [address] [id number] [place] [address]- 4946 Apr, [facility] [place] [facility] [address] [id number] [place] [address]- 9998 Mar, [facility] [place] [facility] [address] [id number] [place] [address]- 0611 Mar, [facility] [place] [facility] [address] [id number] [place] [address]- 2369 Mar, [facility] [place] [facility] [address] [id number] [place] [address]- 3314 February, [facility] [place] [facility] [address] [id number] [place] [address]- 9195 February, [facility] [place] [facility] [address] [id number] [place] [address]- 6601 February, [facility] [place] [facility] [address] [id number] [place] [address]- 5721 February, [facility] [place] [facility] [address] [id number] [place] [address]- 2681 February, [facility] [place] [facility] [address] [id number] [place] [address]- 3948 Jan, [facility] [place] [facility] [address] [id number] [place] [address]- 0687 Jan, [facility] [place] [facility] [address] [id number] [place] [address]- 4456 Jan, [facility] [place] [facility] [address] [id number] [place] [address]- 4875 Dec, [facility] [place] [facility] [address] [id number] [place] [address]- 0876 Dec, [facility] [place] [facility] [address] [id number] [place] [address]- 0454 Dec, [facility] [address] [id number] [place] [address]- 3236 29 Nov, 2011 [facility] [place] [facility] [address] [id number] [place] [address]- 7896 16 Nov, 2011 [facility] [place] [facility] [address] [facility] [id number] [place] [address]- 0916 07 Nov, 2011 [facility] [place] [facility] [address] [id number] [place] [address] 2543 06 Nov, 2011 [facility] [address] [facility] [id number] [place] [address], [place] 6206 30 Oct, 2011 [facility] [address] [facility] [id number] [place] 6195 Oct, [facility] [address] [address]- 2644 Sep, [facility] [address] [facility] [id number] [place] [address]- 2083 30 Sep, 2011 [facility] [place] [facility] [address] [address]- 8731 14 Sep, 2011 [facility] [address] [facility] [id number] [place] [address]- 8939 05 Sep, 2011 [facility] [place] [facility] [address] [facility] [id number] [place] [address] Aug, [facility] [place] [facility] [address] [facility] [id number] [place] [address] 10 Aug, 2011 [facility] [place] [facility] [address] [facility] [id number] [place] [address] 08 Aug, 2011 [facility] [place] [facility] [address] [facility] [id number] [place] [address] 31 Jul, 2011 [facility] [place] [facility] [address] [facility] [id number] [place] [address] Jul, [facility] [place] [facility] [address] [id number] [place] [address] Jul, [facility] [place] [facility] [address] [id number] [place] [address] May, [facility] [place] [facility] [address] [id number] [place] [address] February, [facility] [place] [facility] [address] [id number] [place] [address] 17 Nov, 2010 [facility] [place] [facility] [address] [id number] [place] [address] 14 Oct, 2010 [facility] [place] [facility] [address] [id number] [place] [address] Oct, [facility] [place] [facility] [address] [id number] [place] [address] 22 Sep, 2010 [facility] [place] [facility] [address] [id number] [place] [address] 8347 17 Sep, 2010 [facility] [place] [facility] [address] [id number] [place] [address] 8206 17 Sep, 2010 [facility] [place] [facility] [address] [id number] [place] [address] 6580 16 Sep, 2010 [facility] [place] [facility] [address] [id number] [place] [address] 10 Sep, 2010 [facility] [place] [facility] [address] [id number] [address] 10 Sep, 2010 [facility] [place] [facility] [address] [id number] [place] [address] 6297 29 Aug, 2010 [facility] [place] [facility] [address] [id number] [place] [address] 23 Aug, 2010 [facility] [place] [facility] [address] [id number] [place] [address] 8419 18 Aug, 2010 [facility] [place] [facility] [address] [id number], [place] [address] 17 Aug, 2010 [facility] [address] [id number], [place] [address] 9[address] 16 Aug, 2010 [facility] [place] [facility] [address] [facility] [id number] [address] 25 Jul, 2010 [facility] [place] [facility] [address] [facility] [id number] [address] 15[address] 16 Jun, 2010 [facility] [place] [facility] [address] [id number][place] [address] 57[address] 15 Feb, 2010 [facility] [address] [facility] [id number] [place] [address] Oct, [facility] [place] [facility] [address] [facility] [id number], [place] [address] Sep, [facility] [address] [facility] [id number] [address] 9[address] 24 Aug, 2009 [facility] [place] [facility] [address] [facility] [id number], [place] [address] 03 Aug, 2009 [facility] [place] [facility] [address] [facility] [id number], [place] [address] 9874 02 Aug, 2009 [facility] [place] [facility] [address] [id number], [place] [address] 20 Jul, 2009 [facility] [place] [facility] [address] [facility] [id number] [address] 15 Jul, 2009 [facility] [place] [facility] [address] [facility] [id number], [place] [address] 3716 15 Jul, 2009 [facility] [place] [facility] [address] [facility] [id number], [place] [address]185 14 Jun, 2009 [facility] [place] [facility] [address] [facility] [id number][place] [address] 10 Jun, 2009 [facility] [place] [facility] [address] [facility] [id number], [place] [address] 16 Mar, 2009 [facility] [place] [facility] [address] [facility] [id number] [place] [address] Jan, [facility] [address] [facility] [id number][place] [address] Aug, IMMUNIZATIONS No Known Immunizations SOCIAL HISTORY Never Assessed REASON FOR VISIT f/u PLAN OF CARE Activity Details Follow Up Every 2 weeks, 1/2 hour sessions Reason: VITAL SIGNS MEDICATIONS Unknown Medications RESULTS No Results PROCEDURES Procedure Date Ordered Result Body Site Psychotherapy, patient &/family, 30 minutes, established patient April 23, 2017 INSTRUCTIONS MEDICATIONS ADMINISTERED No Known Medications MEDICAL [...]
--- OUTSIDE RECORDS SUMMARY | 2018-11-13 11:49 | XMS REPORT ---
Author Author MARIMAR JONES [facility] Address [address] [place] [address] Care Team Providers Care General Farm Hand Name Role Phone MARIMAR JONES Unavailable PROBLEMS Type Condition ICD9-CM Code [id number] Code Onset Dates Condition Status SNOMED Code Problem CAD (coronary artery disease) I25.10 Active 16957041 Problem Back pain M54.9 Active 058050710 Problem Depression F32.9 Active 01545277 Problem Tobacco abuse Z72.0 Active 68021225 Problem Post-traumatic stress disorder, chronic F43.12 Active 70736571 Problem Cannabis use disorder, mild, abuse F12.10 Active 05685007 Problem Borderline personality disorder F60.3 Active 23450624 Problem Hyperlipidemia E78.5 Active 71329646 Problem Bipolar affective, depress, mod F31.32 Active 290300463 Problem Carpal tunnel syndrome of right wrist G56.01 Active [id number] ALLERGIES Substance Reaction Event Type Date Status nausea Drug Allergy Nov, Active IV Dye nausea Non Drug Allergy Nov, Active SOCIAL HISTORY Never Assessed PLAN OF CARE Activity Details Follow Up 6 Months Reason: VITAL SIGNS Height 67 in 2016-12-24 Weight 170.2 lbs 2016-12-24 Temperature 98.2 degrees Fahrenheit 2016-12-24 Heart Rate 98 bpm 2016-12-24 Respiratory Rate 22 2016-12-24 BMI 26.65 kg/m2 2016-12-24 Blood pressure systolic 138 mmHg 2016-12-24 Blood pressure diastolic 82 mmHg 2016-12-24 MEDICATIONS Medication Instructions Dosage Frequency Start Date End Date Duration Status Pravastatin Sodium 80 MG Orally Once a day 1 tablet 24h 30 days Active Lyrica 100 MG TAKE ONE CAPSULE BY MOUTH FOUR TIMES DAILY 30 Active QUEtiapine Fumarate ER 300 MG Orally Once a day 1 tablet every nicolas ( 200mg tab) 24h Nov, 30 day(s) Active QUEtiapine Fumarate ER 200 MG Orally Once a day 1 tablet every nicolas ( 300mg tab) 24h Nov, 30 day(s) Active Pristiq 100 MG TAKE ONE TABLET BY MOUTH ONCE DAILY Active Ibuprofen 800 MG Orally Three times a day 1 tablet 8h Aug, Active RESULTS Name Result Date Reference Range Xray : Knee, Right 1-2 views (IN HOUSE) 2016-12-24 PROCEDURES Procedure Date Ordered Result Body Site X-RAY EXAM OF KNEE, 1 OR 2 Dec 24, 2016 IMMUNIZATIONS No Known Immunizations MEDICAL (GENERAL) HISTORY Type Description Date Medical [...]
--- OUTSIDE RECORDS SUMMARY | 2018-11-13 11:49 | XMS REPORT ---
Author Author MARIMAR JONES [facility] Address [address] [place] [address] Care Team Providers Care Viscose Cellar Worker Name Role Phone MARIMAR JONES Unavailable PROBLEMS Type Condition ICD9-CM Code [id number] Code Onset Dates Condition Status SNOMED Code Problem Hyperlipidemia E78.5 Active 87555829 Problem Back pain M54.9 Active 097383805 Problem Tobacco abuse Z72.0 Active 19258993 Assessment Right wrist fracture, closed, initial encounter S62.101A Aug, Active 76311805 Problem CAD (coronary artery disease) I25.10 Active 06566088 Problem Depression F32.9 Active 92841909 ALLERGIES Substance Reaction Event Type Date Status Aspir-81 nausea Drug Allergy Aug, Active IV Dye nausea Non Drug Allergy Aug, Active SOCIAL HISTORY No smoking Hx information available PLAN OF CARE VITAL SIGNS Height 67 in 2016-09-24 Weight 173.5 lbs 2016-09-24 Heart Rate 82 bpm 2016-09-24 Respiratory Rate 20 2016-09-24 BMI 27.17 kg/m2 2016-09-24 Blood pressure systolic 118 mmHg 2016-09-24 Blood pressure diastolic 80 mmHg 2016-09-24 MEDICATIONS Medication Instructions Dosage Frequency Start Date End Date Duration Status Pravastatin Sodium 40 mg Orally Once a day 1 tablet 24h Active Pristiq 100 MG TAKE ONE TABLET BY MOUTH ONCE DAILY Active Seroquel XR 400 MG Orally Once a day TAKE ONE TABLET BY MOUTH ONCE PER DAY BETWEEN DINNER AND BEDTIME 24h Active Lyrica 100 MG TAKE ONE CAPSULE BY MOUTH FOUR TIMES DAILY 30 Active Ibuprofen 800 MG Orally Three times a day 1 tablet 8h Aug, Active RESULTS No Results PROCEDURES Procedure Date Ordered Related Diagnosis Body Site Office Visit, Est Pt., Level 2 Sep 24, 2016 IMMUNIZATIONS No Known Immunizations
--- OUTSIDE RECORDS SUMMARY | 2018-11-13 11:50 | XMS REPORT ---
Author Author MATTHEW ACOSTA Organization [facility] [place] Address [address] [place] [address] Care Team Providers Care Investigation Manager Name Role Phone MATTHEW ACOSTA Unavailable PROBLEMS Type Condition ICD9-CM Code [id number] Code Onset Dates Condition Status SNOMED Code Problem CAD (coronary artery disease) I25.10 Active 03893475 Problem Back pain M54.9 Active 503066580 Problem Depression F32.9 Active 86470005 Problem Tobacco abuse Z72.0 Active 63287287 Problem Post-traumatic stress disorder, chronic F43.12 Active 82405008 Problem Cannabis use disorder, mild, abuse F12.10 Active 59621223 Problem Borderline personality disorder F60.3 Active 45218008 Problem Hyperlipidemia E78.5 Active 05465389 Problem Bipolar affective, depress, mod F31.32 Active 919634323 Problem Carpal tunnel syndrome of right wrist G56.01 Active [id number] ALLERGIES No Information SOCIAL HISTORY Never Assessed PLAN OF CARE Activity Details Follow Up 2 Weeks Reason: VITAL SIGNS MEDICATIONS Unknown Medications RESULTS No Results PROCEDURES Procedure Date Ordered Result Body Site Psych diagnostic evaluation, established patient Dec 12, 2016 IMMUNIZATIONS No Known Immunizations MEDICAL (GENERAL) [...]
--- OUTSIDE RECORDS SUMMARY | 2018-11-13 11:50 | XMS REPORT ---
Author Author MATTHEW ACOSTA Organization [facility] [place] Address [address] [place] [address] Care Team Providers Care Owner/Photographer Name Role Phone MATTHEW ACOSTA Unavailable PROBLEMS Type Condition ICD9-CM Code [id number] Code Onset Dates Condition Status SNOMED Code Problem Back pain M54.9 Active 392632179 Problem Borderline personality disorder F60.3 Active 64899719 Problem Hyperlipidemia E78.5 Active 49676943 Problem Tobacco abuse Z72.0 Active 72826561 Problem CAD (coronary artery disease) I25.10 Active 48196934 Problem Depression F32.9 Active 77101010 Problem Fibromyalgia M79.7 Active 089534709 Problem Cervical radiculopathy M54.12 Active 90551379 Problem Post-traumatic stress disorder, chronic F43.12 Active 63801816 Problem Carpal tunnel syndrome of right wrist G56.01 Active 055729298342790 Problem Cannabis use disorder, mild, abuse F12.10 Active 31282309 Problem Bipolar affective, depress, mod F31.32 Active 228248252 ALLERGIES No Information SOCIAL HISTORY Never Assessed PLAN OF CARE Activity Details Follow Up Every 2 weeks, 1/2 hour sessions Reason: VITAL SIGNS MEDICATIONS Unknown Medications RESULTS No Results PROCEDURES Procedure Date Ordered Result Body Site Psychotherapy, patient &/family, 30 minutes, established patient March 26, 2017 IMMUNIZATIONS No Known Immunizations MEDICAL (GENERAL) HISTORY [...]
--- OUTSIDE RECORDS SUMMARY | 2018-11-13 11:50 | XMS REPORT ---
Author Author MATTHEW ACOSTA [facility] Address [address] [place] [address] Care Team Providers Care [place] Knitter Name Role Phone MATTHEW ACOSTA Unavailable PROBLEMS Type Condition ICD9-CM Code YRA12-IZ Code Onset Dates Condition Status SNOMED Code Problem Borderline personality disorder F60.3 Active 91530881 Problem Post-traumatic stress disorder, chronic F43.12 Active 60993316 Problem Carpal tunnel syndrome of right wrist G56.01 Active [id number] Problem PAD (peripheral artery disease) I73.9 Active 957898297 Problem Anxiety F41.9 Active 98481698 Problem Cannabis use disorder, mild, abuse F12.10 Active 92419696 Problem Bipolar affective, depress, mod F31.32 Active 979202014 Problem Fibromyalgia M79.7 Active 238588054 Problem Cervical radiculopathy M54.12 Active 92674379 Problem CAD (coronary artery disease) I25.10 Active 26013782 Problem Depression F32.9 Active 32272417 Problem Back pain M54.9 Active 063322533 Problem Tobacco abuse Z72.0 Active 02985424 Problem Hyperlipidemia E78.5 Active 66394025 ALLERGIES No Information ENCOUNTERS Encounter Location Date Diagnosis [facility] [id number], [place] [address] Apr, [facility] [id number] [place] [address] 99380- 9827 February, [facility] [id number] [place] [address] 27862- 1712 February, Fibromyalgia M79.7 [facility] [id number], [place] [address] Jan, Post-traumatic stress disorder, chronic F43.12 ; Bipolar affective, depress, mod F31.32 ; Borderline personality disorder F60.3 and Cannabis use disorder, mild, abuse F12.10 [address] [place] [address] 45446- 7893 Jan, [facility] [id number] [place] [address] [address] Dec, Bipolar affective, depress, mod F31.32 ; Post-traumatic stress disorder, chronic F43.12 ; Borderline personality disorder F60.3 and Cannabis use disorder, mild, abuse F12.10 [facility] [place] [address] [place] [address] 86772- 4841 Dec, Hoarseness R49.0 ; Bronchitis J40 ; PAD (peripheral artery disease) I73.9 and Tobacco abuse Z72.0 [facility] [place] [address] [place] [address] 03966- 1522 Nov, Bipolar affective, depress, mod F31.32 ; Post-traumatic stress disorder, chronic F43.12 ; Borderline personality disorder F60.3 and Cannabis use disorder, mild, abuse F12.10 [address] [place] [address] [place] [address] 53014- 7128 Oct, Post-traumatic stress disorder, chronic F43.12 ; Bipolar affective, depress, mod F31.32 ; Borderline personality disorder F60.3 and Cannabis use disorder, mild, abuse F12.10 [facility] [address] [place] [address] 71383- 8615 Oct, Bipolar affective, depress, mod F31.32 ; Post-traumatic stress disorder, chronic F43.12 and Borderline personality disorder F60.3 [facility] [id number] [place] [address] 72204- 5494 Sep, Anxiety F41.9 [facility] [id number] [place] [address] 51709- 9543 Aug, Bipolar affective, depress, mod F31.32 ; Post-traumatic stress disorder, chronic F43.12 and Borderline personality disorder F60.3 [facility] [id number] [place] [address] 05448- 9600 Aug, Bipolar affective, depress, mod F31.32 ; Post-traumatic stress disorder, chronic F43.12 and Borderline personality disorder F60.3 [facility] [id number] [place] [address] 38294- 1813 Aug, Fibromyalgia M79.7 ; Back pain M54.9 and Cervical radiculopathy M54.12 [id number] [place] [address] 39996- 3398 Aug, Bipolar affective, depress, mod F31.32 and Post-traumatic stress disorder, chronic F43.[address] 78104- 1648 Jul, Depression F32.9 ; Borderline personality disorder F60.3 and Bipolar affective, depress, mod F31.[address] 24601- 8536 Jul, Post-traumatic stress disorder, chronic F43.12 ; Bipolar affective, depress, mod F31.32 ; Borderline personality disorder F60.3 and Cannabis use disorder, mild, abuse F12.10 [id number] [place] [address] 82656- 6135 Jul, 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 [id number] [place] [address] 91335- 5644 Jun, [address] 07992- 3051 Jun, Depression F32.9 ; Borderline personality disorder F60.3 and Bipolar affective, depress, mod F31.32 [id number] [place] [address] 19187- 9415 Jun, Depression F32.9 and Borderline personality disorder F60.[address] 54776- 8173 May, Post-traumatic stress disorder, chronic F43.12 [facility] [id number] [place] [address] 21148- 3599 May, Depression F32.9 and Borderline personality disorder F60.3 [facility] [id number] [place] [address] 65978- 0851 Apr, Post-traumatic stress disorder, chronic F43.12 ; Bipolar affective, depress, mod F31.32 ; Borderline personality disorder F60.3 ; Other prison (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.899 and Cannabis use disorder, mild, abuse F12.10 [address] [place] [id number] [place] [address] 39018- 2159 Apr, Depression F32.9 and Borderline personality disorder F60.3 [facility] [id number] [place] [address] 77284- 1348 Apr, Depression F32.9 and Borderline personality disorder F60.3 [facility] [facility] [id number] [place] [address] 15529- 4326 Mar, Depression F32.9 and Borderline personality disorder F60.3 [facility] [id number] [place] [address] 78187- 7740 February, Depression F32.9 and Borderline personality disorder F60.3 [facility] [facility] [id number] [place] [address] 64084- 0726 February, Back pain M54.9 [facility] [facility] [id number] [place] [address] 48674- 7510 February, Depression F32.9 and Borderline personality disorder F60.3 [facility] [facility] [id number] [place] [address] 26140- 9803 February, Post-traumatic stress disorder, chronic F43.12 ; Borderline personality disorder F60.3 and Bipolar affective disorder, depressed, mild F31.31 [facility] [facility] [id number] [place] [address] 80077- 0464 February, [facility] [id number] [place] [address] 92404- 8692 February, Depression F32.9 and Borderline personality disorder F60.3 [facility] [place] [id number] [place] [address] 00473- 5899 Jan, [facility] [id number] [place] [address] 48666- 8148 Jan, Depression F32.9 and Borderline personality disorder F60.3 [facility] [id number] [place] [address] 97738- 0331 Jan, Acute lateral meniscus tear of right knee, initial encounter S83.281A [place] [address] 20782- 4219 Jan, Depression F32.9 and Borderline personality disorder F60.3 [place] [address] 56792- 3225 Dec, Depression F32.9 and Borderline personality disorder F60.3 [facility] [facility] [id number] [place] [address] 22166- 9594 Dec, Depression F32.9 and Borderline personality disorder F60.3 [facility] [facility] [id number] [place] [address] 00507- 0908 Nov, Hyperlipidemia E78.5 ; Knee locking, right M23.91 and Carpal tunnel syndrome of right wrist G56.01 [address] [address] [place] [address] 37282- 8048 23 Nov, 2016 Bipolar affective, depress, mod F31.32 ; Post-traumatic stress disorder, chronic F43.12 and Borderline personality disorder F60.3 [facility] [id number] [place] [address] 99310- 3672 16 Nov, 2016 Depression F32.9 and Borderline personality disorder F60.3 [facility] [id number] [place] [address] 77133- 1451 Oct, Post-traumatic stress disorder, chronic F43.12 and 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 [place] [id number] [place] [address] 04696- 7013 Oct, Nondisplaced fracture of distal end of right radius with routine healing, subsequent encounter S52.501D [facility] [facility] [id number] [place] [address] 65542- 4736 Sep, [address] [address] 57259- 2458 Aug, Right wrist fracture, closed, initial encounter S62.101A [place] [address] 11322- 9323 Aug, [place] [facility] [id number] [place] [address] 46071- 0442 Jul, Back pain M54.9 and Hyperlipidemia E78.5 [facility] [facility] [id number] [place] [address] 14322- 6977 Jul, Post-traumatic stress disorder, chronic F43.12 and 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 [place] [id number] [place] [address] 14780- 5527 Apr, Bipolar affective, depress, mod F31.32 ; Post-traumatic stress disorder, chronic F43.12 and 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 [place] [id number] [place] [address] 94449- 6499 Mar, [place] [facility] [id number] [place] [address] 72911- 6537 Jan, Post-traumatic stress disorder, chronic F43.12 and Depression F32.9 [place] [id number] [place] [address] 92086- 9630 Dec, [facility] [address] 22887- 7300 15 Nov, 2015 Shoulder pain, left M25.512 and Bronchitis J40 [address] [id number] [place] [address] 12793- 1951 Sep, Hyperlipidemia E78.5 [place] [id number] [place] [address] 24016- 3428 Sep, Hyperlipidemia E78.5 [address] [address] 73187- 3468 Sep, [address] [address] 55559- 0839 Sep, Back pain M54.9 ; CAD (coronary artery disease) I25.10 and Depression F32.9 [id number] [place] [address] 04474- 2668 Sep, URI (upper respiratory infection) J06.9 ; Nausea & vomiting R11.2 and Tobacco abuse Z72.0 [place] [id number] [place] [address] 65731- 5199 Mar, Posttraumatic stress disorder 309.81 ; Major depressive disorder, recurrent episode, in partial remission 296.35 ; Nightmares associated with chronic post-traumatic stress disorder 307.47 ; Thoracic or lumbosacral neuritis or radiculitis, unspecified 724.4 ; Borderline personality disorder 301.83 and High risk medication use V58.69 [place] [id number] [place] [address] 37446- 7268 Jan, [address] [id number] [place] [address] 99354- 8268 Jan, [address] [address] 57374- 9114 Dec, [place] [id number] [place] [address] 08484- 3783 Dec, [address] [address] 25640- 4641 Sep, [facility] [place] [facility] [address] [id number] [place] [address]21 Sep, [facility] [place] [facility] [address] [id number] [place] [address]- 8039 Sep, [facility] [place] [facility] [address] [id number] [place] 7785 Sep, [facility] [place] [facility] [address] [id number] [place] [address]- 2280 Sep, [facility] [place] [facility] [address] [id number] [place] [address]- 7015 Jul, [facility] [place] [facility] [address] [id number] [place] [address]- 6477 Jul, [facility] [place] [facility] [address] [id number] [place] [address]- 3417 Jul, [facility] [place] [facility] [address] [id number] [place] [address]- 3829 Jul, [facility] [place] [facility] [address] [id number] [place] [address]- 2181 Jul, [facility] [place] [facility] [address] [id number] [place] [address]- 3363 Jul, [facility] [place] [facility] [address] [id number] [address]- 2753 Jul, [facility] [place] [facility] [address] [id number], [place] [address]- 0913 Jul, [facility] [place] [facility] [address] [id number] [place] [address]- 9686 May, [facility] [place] [facility] [address] [id number] [place] [address]- 8242 May, [facility] [place] [facility] [address] [id number] [place] [address]- 8813 May, [facility] [place] [facility] [address] [id number] [place] [address]- 3485 May, [facility] [place] [facility] [address] [id number] [place] [address]- 6215 May, [facility] [place] [facility] [address] [id number] [place] [address]- 9459 May, [facility] [place] [facility] [address] [id number] [place] [address]- 8795 Mar, [facility] [place] [facility] [address] [id number] [place] [address]- 8122 Mar, [facility] [place] [facility] [address] [id number] [place] [address]- 6569 February, [facility] [place] [facility] [address] [id number] [place] [address]- 8391 February, [facility] [place] [facility] [address] [id number] [place] [address]- 1908 February, [facility] [place] [facility] [address] [id number] [place] [address]- 4639 February, [facility] [place] [facility] [address] [id number] [place] [address]- 8931 February, [facility] [place] [facility] [address] [id number] [place] [address]- 0453 February, [facility] [place] [facility] [address] [id number] [place] [address]- 0178 February, [facility] [place] [facility] [address] [id number] [place] [address]- 9125 Jan, [facility] [place] [facility] [address] [id number] [place] [address]- 2006 Jan, [facility] [place] [facility] [address] [id number] [place] [address]- 4900 Jan, [facility] [place] [facility] [address] [id number] [place] [address]- 8212 Jan, [facility] [place] [facility] [address] [id number] [place] [address]- 9158 Dec, [facility] [place] [facility] [address] [id number] [place] [address]- 7523 Dec, [facility] [place] [facility] [address] [id number] [place] [address]- 8160 Dec, [facility] [place] [facility] [address] [id number] [place] [address]- 9324 Dec, [facility] [place] [facility] [address] [id number] [place] [address]- 0172 Nov, [facility] [place] [facility] [address] [id number] [place] [address]- 2111 Nov, [facility] [place] [facility] [address] [id number] [place] [address]- 0784 Nov, [facility] [place] [facility] [address] [id number] [place] [address]- 0634 Nov, [facility] [place] [facility] [address] [id number] [place] [address]- 1192 Nov, [facility] [place] [facility] [address] [id number] [place] [address]- 4903 Nov, [facility] [place] [facility] [address] [id number] [place] [address]- 9231 Nov, [facility] [place] [facility] [address] [id number] [place] [address]- 1506 Nov, [facility] [place] [facility] [address] [id number] [place] [address]- 9444 Oct, [facility] [place] [facility] [address] [id number] [place] [address]- 3553 Oct, [facility] [place] [facility] [address] [id number] [place] [address]- 2022 Oct, [facility] [place] [facility] [address] [id number] [place] [address]- 1243 Oct, [facility] [place] [facility] [address] [id number] [place] [address]- 0416 Oct, [facility] [place] [facility] [address] [id number] [place] [address]- 2428 Oct, [facility] [place] [facility] [address] [id number] [place] [address]- 6478 Oct, [facility] [place] [facility] [address] [id number] [place] [address]- 0209 Oct, [facility] [place] [facility] [address] [id number] [place] [address]- 9561 Oct, [facility] [place] [facility] [address] [id number] [place] [address]- 8827 Oct, [facility] [place] [facility] [address] [id number] [place] [address]- 7941 Oct, [facility] [place] [facility] [address] [id number] [place] [address]- 0485 Aug, [facility] [place] [facility] [address] [id number] [place] [address]- 7560 Aug, [facility] [place] [facility] [address] [id number] [place] [address]- 6262 Jul, [facility] [place] [facility] [address] [id number] [place] [address]- 4906 Jul, [facility] [place] [facility] [address] [id number] [place] [address]- 8198 Jul, [facility] [place] [facility] [address] [id number] [place] [address]- 5556 24 Jul, 2013 [facility] [place] [facility] [address] [id number] [place] [address]- 0879 27 Jun, 2013 [facility] [place] [facility] [address] [id number] [place] [address]- 4305 19 Jun, 2013 [facility] [place] [facility] [address] [id number] [place] [address]- 0419 Jan, [facility] [place] [facility] [address] [id number] [place] [address]- 8995 Oct, [facility] [place] [facility] [address] [id number] [place] [address]- 6265 Sep, [facility] [place] [facility] [address] [id number] [place] [address], [place] [address]- 0082 Sep, [facility] [place] [facility] [address] [id number] [place] [address]- 1744 Sep, [facility] [place] [facility] [address] [id number] [place] [address]- 7883 Sep, [facility] [place] [facility] [address] [id number] [place] [address]- 1506 Aug, [facility] [place] [facility] [address] [id number] [place] [address]- 8391 Aug, [facility] [place] [facility] [address] [id number] [place] [address]- 0863 Aug, [facility] [place] [facility] [address] [id number] [place] [address]- 7373 Aug, [facility] [place] [facility] [address] [facility] [id number] [place] [address]- 8057 Jul, [facility] [place] [facility] [address] [id number] [place] [address]- 6466 Jul, [facility] [place] [facility] [address] [id number] [place] [address]- 5760 Jul, [facility] [place] [facility] [address] [id number] [place] [address]- 1751 Jul, [facility] [place] [facility] [address] [id number] [place] [address]- 1750 Jul, [facility] [place] [facility] [address] [id number] [place] [address]- 1496 Jun, [facility] [place] [facility] [address] [id number] [place] [address]- 8708 Jun, [facility] [place] [facility] [address] [id number] [place] [address]- 1056 Jun, [facility] [place] [facility] [address] [id number] [place] [address]- 0109 May, [facility] [place] [facility] [address] [id number] [place] [address]- 6862 May, [facility] [place] [facility] [address] [id number] [place] [address]- 9513 Apr, [facility] [place] [facility] [address] [id number] [place] [address]- 1194 Apr, [facility] [place] [facility] [address] [id number] [place] [address]- 7258 Apr, [facility] [place] [facility] [address] [id number] [place] [address]- 6107 Apr, [facility] [place] [facility] [address] [id number] [place] [address]- 2202 Mar, [facility] [place] [facility] [address] [id number] [place] [address]- 5349 Mar, [facility] [place] [facility] [address] [id number] [place] [address]- 8627 Mar, [facility] [place] [facility] [address] [id number] [place] [address]- 3392 February, [facility] [place] [facility] [address] [id number] [place] [address]- 1497 February, [facility] [place] [facility] [address] [id number] [place] [address]- 8836 February, [facility] [place] [facility] [address] [id number] [place] [address]- 2546 February, [facility] [place] [facility] [address] [id number] [place] [address] 2546 February, [facility] [address] [id number] [place] [address]- 2926 Jan, [facility] [place] [facility] [address] [id number] [place] [address] Jan, [facility] [address] [id number] [place] [address] Jan, [facility] [address] [id number] [place] [address] Dec, [facility] [address] [id number] [place] [address] Dec, [facility] [address] [id number] [place] [address] Dec, [facility] [address] [id number] [place] [address] Nov, [facility] [address] [id number] [place] [address] Nov, [facility] [address] [id number] [place] [address] Nov, [facility] [address] [facility] [id number] [place] [address] Nov, [facility] [address] [id number] [place] [address] Oct, [facility] [address] [id number] [place] [address] Oct, [facility] [place] [facility] [address] [id number] [place] [address] Sep, [facility] [place] [facility] [address] [id number] [place] [address] Sep, [facility] [address] [id number] [place] [address] 14 Sep, 2011 [facility] [place] [facility] [address] [id number] [place] [address] 05 Sep, 2011 [facility] [place] [facility] [address] [id number] [place] [address] 28 Aug, 2011 [facility] [place] [facility] [address] [id number] [place] [address] 10 Aug, 2011 [facility] [place] [facility] [address] [id number] [place] [address] 08 Aug, 2011 [facility] [place] [facility] [address] [id number] [place] [address] Jul, [facility] [place] [facility] [address] [id number] [place] [address] Jul, [facility] [place] [facility] [address] [id number] [place] [address] 2018 Jul, [facility] [place] [facility] [address] [id number] [place] [address] May, [facility] [place] [facility] [address] [id number] [place] [address] February, [facility] [place] [facility] [address] [id number] [place] [address] Nov, [facility] [place] [facility] [address] [id number] [address] Oct, [facility] [place] [facility] [address] [id number], [place] [address] Oct, [facility] [place] [facility] [address] [id number] [place] [address] Sep, [facility] [place] [facility] [address] [id number] [place] [address] Sep, [facility] [place] [facility] [address] [id number] [place] [address] Sep, [facility] [place] [facility] [address] [id number] [place] [address] 16 Sep, 2010 [facility] [address] [id number] [place] [address] 10 Sep, 2010 [facility] [place] [facility] [address] [id number] [place] [address] 10 Sep, 2010 [facility] [address] [id number] [place] [address] 29 Aug, 2010 [facility] [place] [facility] [address] [id number] [place] [address] 23 Aug, 2010 [facility] [place] [facility] [address] [id number] [place] [address]- [address] 18 Aug, 2010 [facility] [place] [facility] [address] [id number] [place] [address] 17 Aug, 2010 [facility] [address] [id number] [place] [address] 16 Aug, 2010 [facility] [place] [facility] [address] [address] [id number] [place] [address] 25 Jul, 2010 [facility] [place] [facility] [address] [id number] [place] [address] 16 Jun, 2010 [facility] [place] [facility] [address] [facility] [id number] [place] [address] February, [facility] [place] [facility] [address] [id number] [place] [address] Oct, [facility] [place] [facility] [address] [id number], [place] [address] Sep, [facility] [place] [facility] [address] [id number] [place] [address] Aug, [facility] [place] [facility] [address] [id number] [place] [address] Aug, [facility] [place] [facility] [address] [id number], [place] [address] Aug, [facility] [address] [id number] [address] Jul, [facility] [id number] [address] Jul, [facility] [id number], [place] [address] Jul, [facility] [id number] [place] [address] 14 Jun, 2009 [facility] [id number] [address] 10 Jun, 2009 [facility] [id number], [place] [address] Mar, [facility] [id number] [address] Jan, [facility] [id number], [place] [address] Aug, IMMUNIZATIONS No Known Immunizations SOCIAL HISTORY Never Assessed REASON FOR VISIT f/u PLAN OF CARE Activity Details Follow Up 2 Weeks Reason: VITAL SIGNS MEDICATIONS Unknown Medications RESULTS No Results PROCEDURES Procedure Date Ordered Result Body Site Psychotherapy, patient &/family, 45 minutes, established patient Jul 24, 2017 INSTRUCTIONS MEDICATIONS ADMINISTERED No Known Medications [...]
--- OUTSIDE RECORDS SUMMARY | 2018-11-13 11:50 | XMS REPORT ---
Author MATTHEW [facility] eClinicalWorks Address Unknown Phone Unavailable Care Team Providers Care Adjunct Faculty Instructor Name Role Phone MATTHEW ACOSTA CP Unavailable Allergies No Known Allergies Problems Problem Type Condition Code Onset Dates Condition Status Problem Borderline personality disorder 301.83 Active Problem Coronary atherosclerosis of unspecified type of vessel, [place] or graft 414.00 Active Problem Other and unspecified hyperlipidemia 272.4 Active Problem Back pain M54.9 Active Problem CAD (coronary artery disease) I25.10 Active Problem Hyperlipidemia E78.5 Active Problem Major depressive disorder, recurrent episode, in partial remission 296.35 Active Problem Nightmares associated with chronic post-traumatic stress disorder 307.47 Active Problem Depression F32.9 Active Problem Tobacco abuse Z72.0 Active Assessment Hyperlipidemia E78.5 Active Problem Lumbago 724.2 Active Problem Posttraumatic stress disorder 309.81 Active Medications Medication Code System Code Instructions Start Date End Date Status Dosage Pravastatin Sodium [facility] [address]-72 40 MG Orally Once a day Oct 12, 2015 1 tablet Results No Known Results Summary Purpose eClinicalWorks Submission
--- OUTSIDE RECORDS SUMMARY | 2018-11-13 11:51 | XMS REPORT ---
Author Author MATTHEW ACOSTA [facility] Address [address] [place] [address] Care Team Providers Care Hand Shoes Sewer Name Role Phone MATTHEW ACOSTA Unavailable PROBLEMS Type Condition ICD9-CM Code ULK93-GR Code Onset Dates Condition Status SNOMED Code Problem Borderline personality disorder F60.3 Active 54084028 Problem Post-traumatic stress disorder, chronic F43.12 Active 81164790 Problem Carpal tunnel syndrome of right wrist G56.01 Active [id number] Problem PAD (peripheral artery disease) I73.9 Active 574596644 Problem Anxiety F41.9 Active 80725507 Problem Cannabis use disorder, mild, abuse F12.10 Active 08687898 Problem Bipolar affective, depress, mod F31.32 Active 463010779 Problem Fibromyalgia M79.7 Active 195074085 Problem Cervical radiculopathy M54.12 Active 31498877 Problem CAD (coronary artery disease) I25.10 Active 93028320 Problem Depression F32.9 Active 82189633 Problem Back pain M54.9 Active 819124748 Problem Tobacco abuse Z72.0 Active 80356105 Problem Hyperlipidemia E78.5 Active 01026460 ALLERGIES No Information ENCOUNTERS Encounter Location Date Diagnosis [facility] [id number] [place] [address] 85785- 5257 Apr, [facility] [id number] [place] [address] 94181- 3164 Mar, [facility] [id number] [place] [address] 33707- 6569 February, Fibromyalgia M79.7 [facility] [id number] [place] [address] 37105- 8748 Jan, Post-traumatic stress disorder, chronic F43.12 ; Bipolar affective, depress, mod F31.32 ; Borderline personality disorder F60.3 and Cannabis use disorder, mild, abuse F12.10 [place] [address] [place] [address] 01085- 6403 Jan, [place] [id number] [place] [address] Dec, Bipolar affective, depress, mod F31.32 ; Post-traumatic stress disorder, chronic F43.12 ; Borderline personality disorder F60.3 and Cannabis use disorder, mild, abuse F12.10 [address] [address] [place] [address] 26607- 7990 Dec, Hoarseness R49.0 ; Bronchitis J40 ; PAD (peripheral artery disease) I73.9 and Tobacco abuse Z72.0 [place] [address] [place] [address] 06237- 5436 Nov, Bipolar affective, depress, mod F31.32 ; Post-traumatic stress disorder, chronic F43.12 ; Borderline personality disorder F60.3 and Cannabis use disorder, mild, abuse F12.10 [place] [address] [place] [address] 91006- 3794 Oct, Post-traumatic stress disorder, chronic F43.12 ; Bipolar affective, depress, mod F31.32 ; Borderline personality disorder F60.3 and Cannabis use disorder, mild, abuse F12.10 [place] [address] [place] [address] 12963- 2672 Oct, Bipolar affective, depress, mod F31.32 ; Post-traumatic stress disorder, chronic F43.12 and Borderline personality disorder F60.3 [place] [address] [place] [address] 00146- 3586 Sep, Anxiety F41.9 [place] [id number] [place] [address] 59465- 3193 Aug, Bipolar affective, depress, mod F31.32 ; Post-traumatic stress disorder, chronic F43.12 and Borderline personality disorder F60.3 [place] [id number] [place] [address] 96829- 9128 Aug, Bipolar affective, depress, mod F31.32 ; Post-traumatic stress disorder, chronic F43.12 and Borderline personality disorder F60.3 [place] [id number] [place] [address] 84164- 4601 Aug, Fibromyalgia M79.7 ; Back pain M54.9 and Cervical radiculopathy M54.12 [id number] [place] [address] 24705- 8223 Aug, Bipolar affective, depress, mod F31.32 and Post-traumatic stress disorder, chronic F43.[address] 76610- 1764 Jul, Depression F32.9 ; Borderline personality disorder F60.3 and Bipolar affective, depress, mod F31.[address] 30448- 6015 Jul, Post-traumatic stress disorder, chronic F43.12 ; Bipolar affective, depress, mod F31.32 ; Borderline personality disorder F60.3 and Cannabis use disorder, mild, abuse F12.10 [id number] [place] [address] 33203- 8784 Jul, 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.899 [id number] [place] [address] 67152- 5942 Jun, [address] 72771- 8971 Jun, Depression F32.9 ; Borderline personality disorder F60.3 and Bipolar affective, depress, mod F31.32 [id number] [place] [address] 53247- 1451 Jun, Depression F32.9 and Borderline personality disorder F60.[address] 62229- 1395 May, Post-traumatic stress disorder, chronic F43.12 [facility] [id number] [place] [address] 98127- 2710 May, Depression F32.9 and Borderline personality disorder F60.3 [facility] [id number] [place] [address] 20409- 9826 Apr, Post-traumatic stress disorder, chronic F43.12 ; Bipolar affective, depress, mod F31.32 ; Borderline personality disorder F60.3 ; Other halfway (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.899 and Cannabis use disorder, mild, abuse F12.10 [place] [id number] [place] [address] 01483- 1863 Apr, Depression F32.9 and Borderline personality disorder F60.3 [place] [id number] [place] [address] 68403- 4540 Apr, Depression F32.9 and Borderline personality disorder F60.3 [place] [id number] [place] [address] 43945- 4447 Mar, Depression F32.9 and Borderline personality disorder F60.3 [place] [id number] [place] [address] 44535- 6437 February, Depression F32.9 and Borderline personality disorder F60.3 [place] [id number] [place] [address] 63718- 1318 February, Back pain M54.9 [place] [id number] [place] [address] 45319- 7560 February, Depression F32.9 and Borderline personality disorder F60.3 [place] [id number] [place] [address] 69843- 2965 February, Post-traumatic stress disorder, chronic F43.12 ; Borderline personality disorder F60.3 and Bipolar affective disorder, depressed, mild F31.31 [place] [id number] [place] [address] 47531- 8934 February, [place] [id number] [place] [address] 86374- 3637 February, Depression F32.9 and Borderline personality disorder F60.3 [place] [id number] [place] [address] 82158- 4993 Jan, [place] [id number] [place] [address] 14821- 4058 Jan, Depression F32.9 and Borderline personality disorder F60.3 [place] [id number] [place] [address] 39506- 2400 Jan, Acute lateral meniscus tear of right knee, initial encounter S83.281A [place] [address] 55993- 7979 Jan, Depression F32.9 and Borderline personality disorder F60.3 [place] [address] 61225- 5461 Dec, Depression F32.9 and Borderline personality disorder F60.3 [place] [id number] [place] [address] 90751- 7187 Dec, Depression F32.9 and Borderline personality disorder F60.3 [place] [id number] [place] [address] 19119- 1248 Nov, Hyperlipidemia E78.5 ; Knee locking, right M23.91 and Carpal tunnel syndrome of right wrist G56.01 [place] [address] [place] [address] 99045- 0625 23 Nov, 2016 Bipolar affective, depress, mod F31.32 ; Post-traumatic stress disorder, chronic F43.12 and Borderline personality disorder F60.3 [place] [id number] [place] [address] 76730- 7658 16 Nov, 2016 Depression F32.9 and Borderline personality disorder F60.3 [place] [id number] [place] [address] 30942- 2520 Oct, Post-traumatic stress disorder, chronic F43.12 and 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.899 [place] [id number] [place] [address] 78588- 8960 Oct, Nondisplaced fracture of distal end of right radius with routine healing, subsequent encounter S52.501D [place] [id number] [place] [address] 75255- 1817 Sep, [place] [address] 98284- 1899 Aug, Right wrist fracture, closed, initial encounter S62.101A [place] [address] 70865- 0969 Aug, [place] [id number] [place] [address] 63134- 8946 Jul, Back pain M54.9 and Hyperlipidemia E78.5 [place] [id number] [place] [address] 06773- 7684 Jul, Post-traumatic stress disorder, chronic F43.12 and 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.899 [place] [id number] [place] [address] 05815- 5491 Apr, Bipolar affective, depress, mod F31.32 ; Post-traumatic stress disorder, chronic F43.12 and 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.899 [place] [id number] [place] [address] 07509- 1525 Mar, [place] [id number] [place] [address] 45374- 1789 Jan, Post-traumatic stress disorder, chronic F43.12 and Depression F32.9 [place] [id number] [place] [address] 97486- 2794 Dec, [facility] [address] 75405- 7779 15 Nov, 2015 Shoulder pain, left M25.512 and Bronchitis J40 [place] [id number] [place] [address] 72051- 7810 Sep, Hyperlipidemia E78.5 [place] [id number] [place] [address] 46784- 9954 Sep, Hyperlipidemia E78.5 [place] [address] 93980- 3964 Sep, [place] [address] 30635- 6064 Sep, Back pain M54.9 ; CAD (coronary artery disease) I25.10 and Depression F32.9 [id number] [place] [address] 04585- 3789 Sep, URI (upper respiratory infection) J06.9 ; Nausea & vomiting R11.2 and Tobacco abuse Z72.0 [place] [id number] [place] [address] 56714- 4341 Mar, Posttraumatic stress disorder 309.81 ; Major depressive disorder, recurrent episode, in partial remission 296.35 ; Nightmares associated with chronic post-traumatic stress disorder 307.47 ; Thoracic or lumbosacral neuritis or radiculitis, unspecified 724.4 ; Borderline personality disorder 301.83 and High risk medication use V58.69 [place] [id number] [place] [address] 29248- 2445 Jan, [place] [id number] [place] [address] 61607- 8993 Jan, [place] [address] 20655- 0405 Dec, [place] [id number] [place] [address] 11600- 5014 Dec, [place] [address] 88962- 4993 Sep, [facility] [place] [facility] [address] [id number] [place] 5037 Sep, [facility] [place] [facility] [address] [id number] [place] [address]- 2323 Sep, [facility] [place] [facility] [address] [id number] [place] 3968 Sep, [facility] [place] [facility] [address] [id number] [place] [address]- 2451 Sep, [facility] [place] [facility] [address] [id number] [place] [address]- 6378 Jul, [facility] [place] [facility] [address] [id number] [place] [address]- 0652 Jul, [facility] [place] [facility] [address] [id number] [place] [address]- 5845 Jul, [facility] [place] [facility] [address] [id number] [place] [address]- 5647 Jul, [facility] [place] [facility] [address] [id number] [place] [address]- 9966 Jul, [facility] [place] [facility] [address] [id number] [place] [address]- 1993 Jul, [facility] [place] [facility] [address] [id number] [address]- 4537 Jul, [facility] [place] [facility] [address] [id number], [place] [address]- 0879 Jul, [facility] [place] [facility] [address] [id number] [place] [address]- 3247 May, [facility] [place] [facility] [address] [id number] [place] [address]- 5393 May, [facility] [place] [facility] [address] [id number] [place] [address]- 8500 May, [facility] [place] [facility] [address] [id number] [place] [address]- 7833 May, [facility] [place] [facility] [address] [id number] [place] [address]- 3812 May, [facility] [place] [facility] [address] [id number] [place] [address]- 2063 May, [facility] [place] [facility] [address] [id number] [place] [address]- 4251 Mar, [facility] [place] [facility] [address] [id number] [place] [address]- 0728 Mar, [facility] [place] [facility] [address] [id number] [place] [address]- 1387 February, [facility] [place] [facility] [address] [id number] [place] [address]- 7914 February, [facility] [place] [facility] [address] [id number] [place] [address]- 2373 February, [facility] [place] [facility] [address] [id number] [place] [address]- 5313 February, [facility] [place] [facility] [address] [id number] [place] [address]- 3757 February, [facility] [place] [facility] [address] [id number] [place] [address]- 4907 February, [facility] [place] [facility] [address] [id number] [place] [address]- 4272 February, [facility] [place] [facility] [address] [id number] [place] [address]- 5318 Jan, [facility] [place] [facility] [address] [id number] [place] [address]- 4827 Jan, [facility] [place] [facility] [address] [id number] [place] [address]- 6565 Jan, [facility] [place] [facility] [address] [id number] [place] [address]- 8974 Jan, [facility] [place] [facility] [address] [id number] [place] [address]- 7577 Dec, [facility] [place] [facility] [address] [id number] [place] [address]- 1603 Dec, [facility] [place] [facility] [address] [id number] [place] [address]- 1287 Dec, [facility] [place] [facility] [address] [id number] [place] [address]- 8453 Dec, [facility] [place] [facility] [address] [id number] [place] [address]- 9202 Nov, [facility] [place] [facility] [address] [id number] [place] [address]- 3729 Nov, [facility] [place] [facility] [address] [id number] [place] [address]- 9640 Nov, [facility] [place] [facility] [address] [id number] [place] [address]- 3860 Nov, [facility] [place] [facility] [address] [id number] [place] [address]- 4357 Nov, [facility] [place] [facility] [address] [id number] [place] [address]- 6829 Nov, [facility] [place] [facility] [address] [id number] [place] [address]- 2718 Nov, [facility] [place] [facility] [address] [id number] [place] [address]- 9061 Nov, [facility] [place] [facility] [address] [id number] [place] [address]- 3182 Oct, [facility] [place] [facility] [address] [id number] [place] [address]- 2798 Oct, [facility] [place] [facility] [address] [id number] [place] [address]- 7265 Oct, [facility] [place] [facility] [address] [id number] [place] [address]- 9037 Oct, [facility] [place] [facility] [address] [id number] [place] [address]- 6014 Oct, [facility] [place] [facility] [address] [id number] [place] [address]- 0563 Oct, [facility] [place] [facility] [address] [id number] [place] [address]- 9603 Oct, [facility] [place] [facility] [address] [id number] [place] [address]- 1244 Oct, [facility] [place] [facility] [address] [id number] [place] [address]- 1124 Oct, [facility] [place] [facility] [address] [id number] [place] [address]- 3646 Oct, [facility] [place] [facility] [address] [id number] [place] [address]- 0595 Oct, [facility] [place] [facility] [address] [id number] [place] [address]- 9951 Aug, [facility] [place] [facility] [address] [id number] [place] [address]- 0173 Aug, [facility] [place] [facility] [address] [id number] [place] [address]- 9203 Jul, [facility] [place] [facility] [address] [id number] [place] [address]- 3320 Jul, [facility] [place] [facility] [address] [id number] [place] [address]- 1623 Jul, [facility] [place] [facility] [address] [id number] [place] [address]- 7884 24 Jul, 2013 [facility] [place] [facility] [address] [id number] [place] [address]- 6081 27 Jun, 2013 [facility] [place] [facility] [address] [id number] [place] [address]- 4032 19 Jun, 2013 [facility] [place] [facility] [address] [id number] [place] [address]- 5149 Jan, [facility] [place] [facility] [address] [id number] [place] [address]- 7787 Oct, [facility] [place] [facility] [address] [id number] [place] [address]- 6809 Sep, [facility] [place] [facility] [address] [id number] [place] [address], [place] [address]- 0234 Sep, [facility] [place] [facility] [address] [id number] [place] [address]- 3182 Sep, [facility] [place] [facility] [address] [id number] [place] [address]- 3459 Sep, [facility] [place] [facility] [address] [id number] [place] [address]- 8755 Aug, [facility] [place] [facility] [address] [id number] [place] [address]- 7356 Aug, [facility] [place] [facility] [address] [id number] [place] [address]- 4526 Aug, [facility] [place] [facility] [address] [id number] [place] [address]- 2787 Aug, [facility] [place] [facility] [address] [facility] [id number] [place] [address]- 5769 Jul, [facility] [place] [facility] [address] [id number] [place] [address]- 2966 Jul, [facility] [place] [facility] [address] [id number] [place] [address]- 1911 Jul, [facility] [place] [facility] [address] [id number] [place] [address]- 6524 Jul, [facility] [place] [facility] [address] [id number] [place] [address]- 2692 Jul, [facility] [place] [facility] [address] [id number] [place] [address]- 9936 Jun, [facility] [place] [facility] [address] [id number] [place] [address]- 6516 Jun, [facility] [place] [facility] [address] [id number] [place] [address]- 9286 Jun, [facility] [place] [facility] [address] [id number] [place] [address]- 4158 May, [facility] [place] [facility] [address] [id number] [place] [address]- 7401 May, [facility] [place] [facility] [address] [id number] [place] [address]- 3948 Apr, [facility] [place] [facility] [address] [id number] [place] [address]- 8781 Apr, [facility] [place] [facility] [address] [id number] [place] [address]- 7471 Apr, [facility] [place] [facility] [address] [id number] [place] [address]- 0996 Apr, [facility] [place] [facility] [address] [id number] [place] [address]- 2064 Mar, [facility] [place] [facility] [address] [id number] [place] [address]- 1170 Mar, [facility] [place] [facility] [address] [id number] [place] [address]- 0814 Mar, [facility] [place] [facility] [address] [id number] [place] [address]- 1762 February, [facility] [place] [facility] [address] [id number] [place] [address]- 8139 February, [facility] [place] [facility] [address] [id number] [place] [address]- 7866 February, [facility] [place] [facility] [address] [id number] [place] [address]- 2546 February, [facility] [place] [facility] [address] [id number] [place] [address] 2546 February, [facility] [address] [id number] [place] [address]- 1066 Jan, [facility] [place] [facility] [address] [id number] [place] [address]- 8926 Jan, [facility] [address] [id number] [place] [address]- 2276 Jan, [facility] [address] [id number] [place] [address]- 4356 Dec, [facility] [address] [id number] [place] [address]- 7846 Dec, [facility] [address] [id number] [place] [address]- 0726 Dec, [facility] [address] [id number] [place] [address] Nov, [facility] [address] [id number] [place] [address] Nov, [facility] [address] [id number] [place] [address] Nov, [facility] [address] [facility] [id number] [place] [address] Nov, [facility] [address] [id number] [place] [address] Oct, [facility] [address] [id number] [place] [address] Oct, [facility] [place] [facility] [address] [id number] [place] [address] Sep, [facility] [place] [facility] [address] [id number] [place] [address] Sep, [facility] [address] [id number] [place] [address] 14 Sep, 2011 [facility] [place] [facility] [address] [id number] [place] [address] 05 Sep, 2011 [facility] [place] [facility] [address] [id number] [place] [address] 28 Aug, 2011 [facility] [place] [facility] [address] [id number] [place] [address] 10 Aug, 2011 [facility] [place] [facility] [address] [id number] [place] [address] 08 Aug, 2011 [facility] [place] [facility] [address] [id number] [place] [address] Jul, [facility] [place] [facility] [address] [id number] [place] [address] Jul, [facility] [place] [facility] [address] [id number] [place] [address] Jul, [facility] [place] [facility] [address] [id number] [place] [address] May, [facility] [place] [facility] [address] [id number] [place] [address] February, [facility] [place] [facility] [address] [id number] [place] [address] Nov, [facility] [place] [facility] [address] [id number], [place] [address] Oct, [facility] [place] [facility] [address] [id number], [place] [address] Oct, [facility] [place] [facility] [address] [id number] [place] [address] Sep, [facility] [place] [facility] [address] [id number] [place] [address] Sep, [facility] [place] [facility] [address] [id number] [place] [address] Sep, [facility] [place] [facility] [address] [id number] [place] [address] 16 Sep, 2010 [facility] [address] [id number] [place] [address] 10 Sep, 2010 [facility] [place] [facility] [address] [id number] [place] [address]- [address] 10 Sep, 2010 [facility] [address] [id number] [place] [address] 29 Aug, 2010 [facility] [place] [facility] [address] [id number] [place] [address] 23 Aug, 2010 [facility] [place] [facility] [address] [id number] [place] [address] 18 Aug, 2010 [facility] [place] [facility] [address] [id number] [place] [address] 17 Aug, 2010 [facility] [address] [id number] [place] [address] 16 Aug, 2010 [facility] [place] [facility] [address] [id number] [place] [address] 25 Jul, 2010 [facility] [place] [facility] [address] [id number] [place] [address] 16 Jun, 2010 [facility] [place] [facility] [address] [facility] [id number] [place] [address] February, [facility] [place] [facility] [address] [id number] [place] [address] Oct, [facility] [place] [facility] [address] [id number], [place] [address] Sep, [facility] [place] [facility] [address] [id number] [place] [address] Aug, [facility] [place] [facility] [address] [id number] [place] [address] Aug, [facility] [place] [facility] [address] [id number], [place] [address] Aug, [facility] [address] [id number], [place] [address] Jul, [facility] [id number], [place] [address] Jul, [facility] [id number], [place] [address] Jul, [facility] [address] [id number] [place] [phone] 14 Jun, 2009 [facility] [address], [place] [address] 10 Jun, 2009 [facility] [address], [place] [address] Mar, [facility] [address] [address] Jan, [facility] [address], [place] [address] Aug, IMMUNIZATIONS No Known Immunizations SOCIAL HISTORY Never Assessed REASON FOR VISIT f/u PLAN OF CARE Activity Details Follow Up 2 Weeks Reason: VITAL SIGNS MEDICATIONS Unknown Medications RESULTS No Results PROCEDURES Procedure Date Ordered Result Body Site Psychotherapy, patient &/family, 45 minutes, established patient Sep 23, 2017 INSTRUCTIONS MEDICATIONS ADMINISTERED No Known [...]
--- OUTSIDE RECORDS SUMMARY | 2018-11-13 11:51 | XMS REPORT ---
Author Author KAREN Hernandez [facility] Address [address] [place] [address] Care Team Providers Care Artificial Breeding Technician Name Role Phone David KAREN Unavailable PROBLEMS Type Condition ICD9-CM Code FFC04-AQ Code Onset Dates Condition Status SNOMED Code Problem Back pain M54.9 Active 264218075 Problem Borderline personality disorder F60.3 Active 43257206 Problem Hyperlipidemia E78.5 Active 75360957 Problem Tobacco abuse Z72.0 Active 71254076 Problem CAD (coronary artery disease) I25.10 Active 70837451 Problem Depression F32.9 Active 46589150 Problem Fibromyalgia M79.7 Active 424098636 Problem Cervical radiculopathy M54.12 Active 57244488 Problem Post-traumatic stress disorder, chronic F43.12 Active 78670503 Problem Carpal tunnel syndrome of right wrist G56.01 Active 295068960613899 Problem Cannabis use disorder, mild, abuse F12.10 Active 79722664 Problem Bipolar affective, depress, mod F31.32 Active 207197627 ALLERGIES Substance Reaction Event Type Date Status Aspir-81 nausea Drug Allergy February, Active IV Dye nausea Non Drug Allergy February, Active SOCIAL HISTORY Never Assessed PLAN OF CARE Activity Details Follow Up 3 Months with new provider Reason: VITAL SIGNS Height 67 in 2017-03-11 Weight 165.4 lbs 2017-03-11 Heart Rate 90 bpm 2017-03-11 Respiratory Rate 20 2017-03-11 BMI 25.90 kg/m2 2017-03-11 Blood pressure systolic 110 mmHg 2017-03-11 Blood pressure diastolic 67 mmHg 2017-03-11 MEDICATIONS Medication Instructions Dosage Frequency Start Date End Date Duration Status Ibuprofen 800 MG Orally Three times a day 1 tablet 8h Aug, Active QUEtiapine Fumarate ER 200 MG Orally Once a day 1 tablet every nicolas ( 300mg tab) 24h Nov, Active Nitrostat 0.4 MG Sublingual 2 5 min prn 1 Active QUEtiapine Fumarate ER 300 MG Orally Once a day 1 tablet every nicolas ( 200mg tab) 24h Nov, Active Pristiq 100 MG TAKE ONE TABLET BY MOUTH ONCE DAILY Active Lyrica 100 MG TAKE ONE CAPSULE BY MOUTH FOUR TIMES DAILY 30 Active Pravastatin Sodium 80 MG Orally Once a day 1 tablet 24h 30 days Active Pravastatin Sodium 40 MG TAKE ONE TABLET BY MOUTH ONCE DAILY. 30 Active RESULTS No Results PROCEDURES No Known procedures IMMUNIZATIONS No Known Immunizations MEDICAL (GENERAL) HISTORY [...]
--- OUTSIDE RECORDS SUMMARY | 2018-11-13 11:51 | XMS REPORT ---
Author Author MATTHEW ACOSTA [facility] Address [address] [place] [address] Care Team Providers Care [employer] Name Role Phone MATTHEW ACOSTA Unavailable PROBLEMS Type Condition ICD9-CM Code PCV58-OG Code Onset Dates Condition Status SNOMED Code Problem Borderline personality disorder F60.3 Active 87657342 Problem Post-traumatic stress disorder, chronic F43.12 Active 03171840 Problem Carpal tunnel syndrome of right wrist G56.01 Active [id number] Problem PAD (peripheral artery disease) I73.9 Active 536439263 Problem Anxiety F41.9 Active 34756779 Problem Cannabis use disorder, mild, abuse F12.10 Active 79866056 Problem Bipolar affective, depress, mod F31.32 Active 469197847 Problem Fibromyalgia M79.7 Active 794287947 Problem Cervical radiculopathy M54.12 Active 79382657 Problem CAD (coronary artery disease) I25.10 Active 36081864 Problem Depression F32.9 Active 23762126 Problem Back pain M54.9 Active 448905154 Problem Tobacco abuse Z72.0 Active 07856133 Problem Hyperlipidemia E78.5 Active 03171587 ALLERGIES No Information ENCOUNTERS Encounter Location Date Diagnosis [facility] [id number], [place] [address] May, [facility] [address] [id number], [place] [address] 3[address] Apr, [facility] [id number] [place] [address]71- 4805 Apr, [facility] [address] [id number], [place] [address] Mar, Bipolar affective, depress, mod F31.32 ; Post-traumatic stress disorder, chronic F43.12 ; Borderline personality disorder F60.3 and Cannabis use disorder, mild, abuse F12.10 [address] [place] [address], [place] [address] 7306 Mar, Tobacco abuse Z72.0 [address] [address] [place] [address] 95068- 4261 Mar, [place] [id number] [place] [address] 746269- 8659 February, Fibromyalgia M79.7 [place] [id number] [place] [address] 749627- 3625 Jan, Post-traumatic stress disorder, chronic F43.12 ; Bipolar affective, depress, mod F31.32 ; Borderline personality disorder F60.3 and Cannabis use disorder, mild, abuse F12.10 [address] [address] [place] [address] 53310- 4323 Jan, [place] [id number] [place] [address] 81613- 5546 Dec, Bipolar affective, depress, mod F31.32 ; Post-traumatic stress disorder, chronic F43.12 ; Borderline personality disorder F60.3 and Cannabis use disorder, mild, abuse F12.10 [address] [address], [place] [address]- 6298 Dec, Hoarseness R49.0 ; Bronchitis J40 ; PAD (peripheral artery disease) I73.9 and Tobacco abuse Z72.0 [address] [address] [place] [address] 34243- 4404 Nov, Bipolar affective, depress, mod F31.32 ; Post-traumatic stress disorder, chronic F43.12 ; Borderline personality disorder F60.3 and Cannabis use disorder, mild, abuse F12.10 [address] [address], [place] [address]- 7332 Oct, Post-traumatic stress disorder, chronic F43.12 ; Bipolar affective, depress, mod F31.32 ; Borderline personality disorder F60.3 and Cannabis use disorder, mild, abuse F12.10 [address] [address] [place] [address] 78591- 3664 Oct, Bipolar affective, depress, mod F31.32 ; Post-traumatic stress disorder, chronic F43.12 and Borderline personality disorder F60.3 [place] [id number] [place] [address] 37324- 479 Sep, Anxiety F41.[address] 345 Aug, Bipolar affective, depress, mod F31.32 ; Post-traumatic stress disorder, chronic F43.12 and Borderline personality disorder F60.3 [id number] [place], [place] [address] 804 Aug, Bipolar affective, depress, mod F31.32 ; Post-traumatic stress disorder, chronic F43.12 and Borderline personality disorder F60.3 [id number] [place] [address] 68101- 1629 Aug, Fibromyalgia M79.7 ; Back pain M54.9 and Cervical radiculopathy M54.12 [id number] [place] [id number] Aug, Bipolar affective, depress, mod F31.32 and Post-traumatic stress disorder, chronic F43.12 [place] [id number] [place] [address] 46606- 0935 Jul, Depression F32.9 ; Borderline personality disorder F60.3 and Bipolar affective, depress, mod F31.32 [id number] [place] [address] 78827- 8275 Jul, Post-traumatic stress disorder, chronic F43.12 ; Bipolar affective, depress, mod F31.32 ; Borderline personality disorder F60.3 and Cannabis use disorder, mild, abuse F12.10 [id number] [place] [address] 73782- 5251 Jul, Other prison (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.899 [facility] [address] [place] [address] 51779- 8446 Jun, [place] [id number] [place] [address] 0296 Jun, Depression F32.9 ; Borderline personality disorder F60.3 and Bipolar affective, depress, mod F31.32 [place] [id number] [place] [address] 95602- 2956 Jun, Depression F32.9 and Borderline personality disorder F60.3 [place] [id number] [place] [address] 10178- 1226 May, Post-traumatic stress disorder, chronic F43.12 [place] [id number] [place] [address] 22688- 7820 May, Depression F32.9 and Borderline personality disorder F60.3 [place] [id number] [place] [address] 64025- 1902 Apr, Post-traumatic stress disorder, chronic F43.12 ; Bipolar affective, depress, mod F31.32 ; Borderline personality disorder F60.3 ; Other prison (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.899 and Cannabis use disorder, mild, abuse F12.10 [place] [id number] [place] [address] 93166- 3106 Apr, Depression F32.9 and Borderline personality disorder F60.3 [place] [id number] [place] [address] 13907- 6906 Apr, Depression F32.9 and Borderline personality disorder F60.3 [place] [id number] [place] [address] 07866- 5093 Mar, Depression F32.9 and Borderline personality disorder F60.3 [address] [id number] [place] [address] 75432- 6223 February, Depression F32.9 and Borderline personality disorder F60.3 [facility] [address] [place] [address] 32781- 7947 February, Back pain M54.9 [facility] [id number] [place] [address] 26458- 2396 February, Depression F32.9 and Borderline personality disorder F60.3 [facility] [id number] [place] [address] 18180- 9353 February, Post-traumatic stress disorder, chronic F43.12 ; Borderline personality disorder F60.3 and Bipolar affective disorder, depressed, mild F31.31 [address] [id number] [place] [address] 22666- 7295 February, [place] [id number] [place] [address] 03806- 8146 February, Depression F32.9 and Borderline personality disorder F60.3 [place] [id number] [place] [address] 28098- 7227 Jan, [facility] [id number] [place] [address] 17433- 3598 Jan, Depression F32.9 and Borderline personality disorder F60.3 [place] [id number] [place] [address] 82716- 9953 Jan, Acute lateral meniscus tear of right knee, initial encounter S83.281A [facility] [id number] [place] [address] 39166- 5710 Jan, Depression F32.9 and Borderline personality disorder F60.3 [facility] [address] [place] [address] 48609- 1536 Dec, Depression F32.9 and Borderline personality disorder F60.3 [facility] [id number] [place] [address] 08168- 7048 Dec, Depression F32.9 and Borderline personality disorder F60.3 [facility] [id number] [place] [address] 08889- 0699 Nov, Hyperlipidemia E78.5 ; Knee locking, right M23.91 and Carpal tunnel syndrome of right wrist G56.01 [address] [id number] [place] [address] 69952- 7100 Nov, Bipolar affective, depress, mod F31.32 ; Post-traumatic stress disorder, chronic F43.12 and Borderline personality disorder F60.3 [address] [address] 77369- 4039 Nov, Depression F32.9 and Borderline personality disorder F60.3 [place] [address] 76858- 1257 Oct, Post-traumatic stress disorder, chronic F43.12 and 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 [place] [address] 54309- 7897 Oct, Nondisplaced fracture of distal end of right radius with routine healing, subsequent encounter S52.501D [place] [address] 86263- 6807 Sep, [place] [address] 00647- 5756 Aug, Right wrist fracture, closed, initial encounter S62.101A [place] [address] 40794- 5942 Aug, [place] [address] 97311- 2500 Jul, Back pain M54.9 and Hyperlipidemia E78.5 [address] [address] 17249- 5910 Jul, Post-traumatic stress disorder, chronic F43.12 and Other prison (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.899 [address] [address] 59584- 4264 Apr, Bipolar affective, depress, mod F31.32 ; Post-traumatic stress disorder, chronic F43.12 and 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 [address] [address] 57554- 3147 Mar, [place] [address] 54739- 6147 Jan, Post-traumatic stress disorder, chronic F43.12 and Depression F32.9 [address] [address] 27547- 4185 Dec, [address] 78495- 0138 Nov, Shoulder pain, left M25.512 and Bronchitis J40 [address] 60832- 3162 Sep, Hyperlipidemia E78.[address] 12372- 5730 Sep, Hyperlipidemia E78.[address] 55833- 9282 Sep, [address] 46775- 2928 Sep, Back pain M54.9 ; CAD (coronary artery disease) I25.10 and Depression F32.9 [address] [place] [id number] [place] [address] 35063- 6532 Sep, URI (upper respiratory infection) J06.9 ; Nausea & vomiting R11.2 and Tobacco abuse Z72.[address] 24812- 1910 Mar, Posttraumatic stress disorder 309.81 ; Major depressive disorder, recurrent episode, in partial remission 296.35 ; Nightmares associated with chronic post-traumatic stress disorder 307.47 ; Thoracic or lumbosacral neuritis or radiculitis, unspecified 724.4 ; Borderline personality disorder 301.83 and High risk medication use V58.69 [facility] [address] [address] 4506 14 Jan, 2015 [facility] [address] [facility] [id number] 1036 Jan, [facility] [address] [facility] [id number] [address]- 8626 Dec, [facility] [address] [facility] [id number] [place] [address] 74853- 9605 Dec, [facility] [address] [place] [address] 376676- 8811 Sep, [facility] [id number], [place] [address]- 5582 Sep, [facility] [id number] [place] [address] 05797- 7088 Sep, [facility] [id number], [place] [address]- 1061 Sep, [facility] [address], [place] [address]- 0143 Sep, [facility] [id number], [place] [address]- 9291 Jul, [facility] [address], [place] [address]- 8643 Jul, [facility] [address] [facility] [id number], [place] [address]- 9229 Jul, [facility] [address] 3130 Jul, [facility] [id number] [address] 8924 Jul, [facility] [address], [place] [address]- 4693 Jul, [facility] [place] [facility] [address] [id number] [place] [address]- 4625 Jul, [facility] [place] [facility] [address] [id number] [place] [address]- 8386 Jul, [facility] [place] [facility] [address] [id number] [place] [address]- 3342 May, [facility] [place] [facility] [address] [id number] [place] [address]- 5778 May, [facility] [place] [facility] [address] [id number] [place] [address]- 8618 May, [facility] [place] [facility] [address] [id number] [place] [address]- 6068 May, [facility] [place] [facility] [address] [id number] [place] [address]- 4243 May, [facility] [place] [facility] [address] [id number] [place] [address]- 7077 May, [facility] [place] [facility] [address] [id number] [place] [address]- 2307 Mar, [facility] [place] [facility] [address] [id number] [place] [address]- 6981 Mar, [facility] [place] [facility] [address] [id number] [place] [address]- 7478 February, [facility] [place] [facility] [address] [id number] [place] [address]- 9887 February, [facility] [place] [facility] [address] [id number] [place] [address]- 6844 February, [facility] [place] [facility] [address] [id number] [place] [address]- 4257 February, [facility] [place] [facility] [address] [id number] [place] 1537 February, [facility] [place] [facility] [address] [id number], [place] [address]- 2665 February, [facility] [place] [facility] [address] [id number] [place] [address]- 1020 February, [facility] [place] [facility] [address] [id number] [place] [address]- 7867 Jan, [facility] [place] [facility] [address] [id number] [place] [address]- 5223 Jan, [facility] [place] [facility] [address] [id number] [place] [address]- 8742 Jan, [facility] [place] [facility] [address] [id number] [place] [address]- 7493 Jan, [facility] [place] [facility] [address] [id number] [place] [address]- 2972 Dec, [facility] [place] [facility] [address] [facility] [id number] [place] [address]- 8027 Dec, [facility] [place] [facility] [address] [facility] [id number] [place] [address]- 0603 Dec, [facility] [place] [facility] [address] [facility] [id number] [place] [address]- 2279 Dec, [facility] [place] [facility] [address] [facility] [id number] [place] [address]- 6653 Nov, [facility] [place] [facility] [address] [id number] [place] [address]- 9980 Nov, [facility] [place] [facility] [address] [id number], [place] [address]- 7150 Nov, [facility] [place] [facility] [address] [id number] [place] [address]- 7263 Nov, [facility] [place] [facility] [address] [id number] [place] [address]- 6770 Nov, [facility] [place] [facility] [address] [facility] [id number], [place] [address]- 7363 Nov, [facility] [place] [facility] [address] [id number] [place] [address]- 0381 Nov, [facility] [place] [facility] [address] [id number] [place] [address]- 6963 Nov, [facility] [place] [facility] [address] [id number] [place] [address]- 1203 Oct, [facility] [place] [facility] [address] [id number] [place] [address]- 1793 Oct, [facility] [place] [facility] [address] [id number] [place] [address]- 7881 Oct, [facility] [place] [facility] [address] [id number] [place] [address]- 6719 Oct, [facility] [place] [facility] [address] [id number] [place] [address]- 5016 Oct, [facility] [place] [facility] [address] [id number] [place] [address]- 2513 Oct, [facility] [place] [facility] [address] [id number] [place] [address]- 4833 Oct, [facility] [place] [facility] [address] [id number] [place] [address]- 0603 Oct, [facility] [place] [facility] [address] [id number] [place] [address]- 7500 Oct, [facility] [place] [facility] [address] [id number], [place] [address]- 2055 Oct, [facility] [place] [facility] [address] [id number] [place] [address]- 5683 Oct, [facility] [place] [facility] [address] [id number] [place] [address]- 5650 Aug, [facility] [place] [facility] [address] [id number] [place] [address]- 2134 Aug, [facility] [place] [facility] [address] [id number], [place] [address]- 9874 Jul, [facility] [place] [facility] [address] [id number] [place] [address]- 6505 Jul, [facility] [place] [facility] [address] [id number] [place] 4822 Jul, [facility] [place] [facility] [address] [id number] [place] [address]- 0505 Jul, [facility] [place] [facility] [address] [id number] [place] [address]- 7823 Jun, [facility] [place] [facility] [address] [id number] [place] [address]- 5788 Jun, [facility] [place] [facility] [address] [id number] [place] [address]- 1741 Jan, [facility] [place] [facility] [address] [facility] [id number] [place] [address]- 3351 Oct, [facility] [place] [facility] [address] [id number] [place] [address]- 6822 Sep, [facility] [place] [facility] [address] [id number] [place] [address]- 5184 Sep, [facility] [place] [facility] [address] [facility] [id number] [place] [address]- 0564 Sep, [facility] [place] [facility] [address] [id number], [place] [address]- 8218 Sep, [facility] [place] [facility] [address] [id number], [place] [address]- 5524 Aug, [facility] [place] [facility] [address] [id number] [place] [address]- 9812 Aug, [facility] [place] [facility] [address] [facility] [id number] [place] 0903 Aug, [facility] [place] [facility] [address] [facility] [id number] [place] 5110 Aug, [facility] [place] [facility] [address] [id number] [place] [address]- 7588 Jul, [facility] [place] [facility] [address] [id number] [place] [address]- 5523 Jul, [facility] [place] [facility] [address] [id number] [place] [address] 2546 Jul, [facility] [place] [facility] [address] [id number] [place] [address]- 7454 Jul, [facility] [place] [facility] [address] [id number] [place] [address]- 9285 Jul, [facility] [place] [facility] [address] [id number] [place] [address]- 2642 Jun, [facility] [place] [facility] [address] [id number] [place] [address]- 9846 Jun, [facility] [place] [facility] [address] [id number] [place] [address]- 4077 Jun, [facility] [place] [facility] [address] [id number] [place] [address]- 2190 May, [facility] [place] [facility] [address] [id number] [place] [address]- 9009 May, [facility] [place] [facility] [address] [id number] [place] [address]- 0071 Apr, [facility] [place] [facility] [address] [id number] [place] [address]- 5218 Apr, [facility] [place] [facility] [address] [id number] [place] [address]- 2999 Apr, [facility] [place] [facility] [address] [id number] [place] [address] 2540 Apr, [facility] [place] [facility] [address] [id number] [place] [address]- 2546 Mar, [facility] [place] [facility] [address] [id number] [place] [address]- 6766 Mar, [facility] [address] [id number] [place] [address]- 4030 Mar, [facility] [place] [facility] [address] [id number] [place] [address]- 0247 February, [facility] [place] [facility] [address] [id number] [place] [address]- 3016 February, [facility] [place] [facility] [address] [id number] [place] [address]- 9831 February, [facility] [place] [facility] [address] [id number] [place] [address]- 7457 February, [facility] [place] [facility] [address] [id number] [place] [address]- 0422 February, [facility] [place] [facility] [address] [id number] [place] [address]- 6878 Jan, [facility] [place] [facility] [address] [id number] [place] [address]- 7177 Jan, [facility] [place] [facility] [address] [id number] [place] [address]- 9783 Jan, [facility] [place] [facility] [address] [id number] [place] [address]- 6332 Dec, [facility] [place] [facility] [address] [id number] [place] [address] Dec, [facility] [place] [facility] [address] [id number] [place] [address] Dec, [facility] [place] [facility] [address] [id number] [place] [address] Nov, [facility] [place] [facility] [address] [id number] [place] [address] Nov, [facility] [place] [facility] [address] [id number] [place] [address] Nov, [facility] [place] [facility] [address] [id number] [place] [address] Nov, [facility] [address] [id number] [place] [address] Oct, [facility] [place] [facility] [address] [id number] [place] [address] Oct, [facility] [address] [id number] [place] [address] Sep, [facility] [place] [facility] [address] [id number] [place] [address] Sep, [facility] [address] [id number] [place] [address] Sep, [facility] [place] [facility] [address] [id number] [place] [address] Sep, [facility] [place] [facility] [address] [facility] [id number] [place] [address] Aug, [facility] [place] [facility] [address] [id number] [place] [address] Aug, [facility] [place] [facility] [address] [facility] [id number] [place] [address] Aug, [facility] [place] [facility] [address] [facility] [id number] [place] [address] Jul, [facility] [place] [facility] [address] [id number] [place] [address] Jul, [facility] [place] [facility] [address] [id number] [place] [address] Jul, [facility] [place] [facility] [address] [id number] [place] [address] May, [facility] [place] [facility] [address] [facility] [id number] [place] [address] February, [facility] [place] [facility] [address] [id number] [place] [address] Nov, [facility] [address] [id number] [place] [address] 14 Oct, 2010 [facility] [place] [facility] [address] [id number] [place] [address]- [address] 10 Oct, 2010 [facility] [place] [facility] [address] [id number] [place] [address] 22 Sep, 2010 [facility] [place] [facility] [address] [id number] [place] [address] 17 Sep, 2010 [facility] [place] [facility] [address] [id number] [place] [address] 17 Sep, 2010 [facility] [place] [facility] [address] [id number] [place] [address]- [address] 16 Sep, 2010 [facility] [place] [facility] [address] [id number] [place] [address] 10 Sep, 2010 [facility] [place] [facility] [address] [id number] [place] [address] 10 Sep, 2010 [facility] [place] [facility] [address] [id number] [place] [address] 29 Aug, 2010 [facility] [place] [facility] [address] [id number], [place] [address] 23 Aug, 2010 [facility] [place] [facility] [address] [id number], [place] [address] 18 Aug, 2010 [facility] [place] [facility] [address] [id number], [place] [address] 17 Aug, 2010 [facility] [place] [facility] [address] [id number] [place] [address] 16 Aug, 2010 [facility] [place] [facility] [address] [id number], [place] [address] 25 Jul, 2010 [facility] [place] [facility] [address] [id number] [address] 16 Jun, 2010 [facility] [place] [facility] [address] [id number], [place] [address] February, [facility] [id number] [address] Oct, [facility] [address] [id number] [address] Sep, [facility] [address] [address] Aug, [facility] [id number] [place] [address] Aug, [facility] [id number] [place] [address] Aug, [facility] [id number] [place] [address] Jul, [facility] [id number] [place] [address] Jul, [facility] [address] [address] Jul, [facility] [address] [address] Jun, 2009 [facility] [address] [address] Jun, [facility] [address] [address] Mar, [facility] [address] [address] Jan, [facility] [id number] [address] Aug, IMMUNIZATIONS No Known Immunizations SOCIAL HISTORY Never Assessed REASON FOR VISIT f/u PLAN OF CARE Activity Details Follow Up 2 Weeks Reason: VITAL SIGNS MEDICATIONS Unknown Medications RESULTS No Results PROCEDURES Procedure Date Ordered Result Body Site Psychotherapy, patient &/family, 30 minutes, established patient Dec 11, 2017 INSTRUCTIONS MEDICATIONS ADMINISTERED No Known Medications [...]
--- OUTSIDE RECORDS SUMMARY | 2018-11-13 11:51 | XMS REPORT ---
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 Name Role Phone MARIMAR JONES Unavailable PROBLEMS Type Condition ICD9-CM Code DTI27-FQ Code Onset Dates Condition Status SNOMED Code Problem Depression F32.9 Active 72247755 Problem Back pain M54.9 Active 170940206 Problem CAD (coronary artery disease) I25.10 Active 23994436 Problem Tobacco abuse Z72.0 Active 19284272 Problem Post-traumatic stress disorder, chronic F43.12 Active 23183255 Problem Bipolar affective, depress, mod F31.32 Active 963136304 Problem Borderline personality disorder F60.3 Active 26229687 Problem Hyperlipidemia E78.5 Active 82906568 Problem Cannabis use disorder, mild, abuse F12.10 Active 44864447 Problem Carpal tunnel syndrome of right wrist G56.01 Active [id number] ALLERGIES Unknown Allergies SOCIAL HISTORY No smoking Hx information available PLAN OF CARE VITAL SIGNS Height 67 in 2016-08-28 Heart Rate 88 bpm 2016-08-28 Respiratory Rate 20 2016-08-28 Blood pressure systolic 122 mmHg 2016-08-28 Blood pressure diastolic 78 mmHg 2016-08-28 MEDICATIONS Unknown Medications RESULTS No Results PROCEDURES No Known procedures IMMUNIZATIONS No Known Immunizations
--- OUTSIDE RECORDS SUMMARY | 2018-11-13 11:51 | XMS REPORT ---
Author MARIMAR Galeana [facility] eClinicalWorks Address Unknown Phone Unavailable Care Team Providers Care Gas Engine Operator Generators Name Role Phone MARIMAR JONES CP Unavailable Allergies, Adverse Reactions, Alerts Substance Reaction Event Type Aspir-81 nausea Drug Allergy IV Dye nausea Non Drug Allergy Problems Problem Type Condition Code Onset Dates Condition Status Problem Posttraumatic stress disorder 309.81 Active Problem Other and unspecified hyperlipidemia 272.4 Active Problem Borderline personality disorder 301.83 Active Problem CAD (coronary artery disease) I25.10 Active Problem Depression F32.9 Active Problem Back pain M54.9 Active Problem Nightmares associated with chronic post-traumatic stress disorder 307.47 Active Problem Coronary atherosclerosis of unspecified type of vessel, little shell tribe or graft 414.00 Active Problem Tobacco abuse Z72.0 Active Problem Major depressive disorder, recurrent episode, 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 [address]-29 400 MG TAKE ONE TABLET BY MOUTH ONCE PER DAY BETWEEN DINNER AND BEDTIME Lidoderm [facility] [address]-16 5 %(700 mg/patch) May 30, 2014 1 PATCH by Topical route 1 time per day (remove patch(s) after 12 hours) Pristiq [facility] [address]-75 100 MG TAKE ONE TABLET BY MOUTH ONCE DAILY Zofran [facility] [address]-76 4 MG Orally 2 times a day Oct 06, 2015 1 tablet Nitrostat [facility] [address]-17 0.4 MG Sublingual 2 5 min prn [address] [facility] [address]-15 100 MG TAKE ONE CAPSULE BY MOUTH FOUR TIMES DAILY Procedures Procedure Coding System Code Date LIPID PANEL CPT-4 05470 Oct 10, 2015 Office Visit, Est Pt., Level 3 CPT-4 84439 Oct 10, 2015 COMPREHEN METABOLIC PANEL CPT-4 27220 Oct 10, 2015 VENIPUNCT, ROUTINE* CPT-4 63955 Oct 10, 2015 Vital Signs Date/Time: Oct 10, 2015 Temperature 98.2 F Weight 158.7 lbs Height 67 in BMI 24.85 Index Blood Pressure Diastolic 76 mmHg Blood Pressure Systolic 102 mmHg Cardiac Monitoring Heart Rate 88 bpm Results Name Result Date Reference Range Unit Abnormality Flag CMP ----Calcium, Serum 9.7 80763426 8.7-10.2 mg/dL ----Carbon Dioxide, Total 27 20151010 18-29 mmol/L ----ALT (SGPT) 12 20151010 0-32 IU/L ----Creatinine, Serum 0.90 79450388 0.57-1.00 mg/dL ----AST (SGOT) 15 20151010 0-40 IU/L ----eGFR If NonAfricn Am 72 84961809 >59 mL/min/1.73 ----Alkaline Phosphatase, S 91 72371801 39-117 IU/L ----eGFR If Africn Am 83 91396457 >59 mL/min/1.73 ----Bilirubin, Total 0.3 18482041 0.0-1.2 mg/dL ----BUN/Creatinine Ratio 17 20151010 9-23 ----A/G Ratio 1.5 20151010 1.1-2.5 ----Sodium, Serum 138 20151010 134-144 mmol/L ----Globulin, Total 3.1 19851300 1.5-4.5 g/dL ----Potassium, Serum 4.6 20151010 3.5-5.2 mmol/L ----Glucose, Serum 80 92412212 65-99 mg/dL ----Chloride, Serum 97 34573534 97-108 mmol/L ----Albumin, Serum 4.6 11893279 3.5-5.5 g/dL ----BUN 15 20151010 6-24 mg/dL ----Protein, Total, Serum 7.7 65006692 6.0-8.5 g/dL ROUTINE VENIPUNCTURE LIPID PANEL ----VLDL Cholesterol Andrea 26 62183468 5-40 mg/dL ----LDL Cholesterol Calc 195 91071997 0-99 mg/dL H ----Triglycerides 130 28981573 0-149 mg/dL ----HDL Cholesterol 39 78346131 >39 mg/dL L ----Cholesterol, Total 260 20151010 100-199 mg/dL H Summary Purpose eClinicalWorks Submission
--- OUTSIDE RECORDS SUMMARY | 2018-11-13 11:52 | XMS REPORT ---
Author MARIMAR Galeana [facility] eClinicalWorks Address Unknown Phone Unavailable Care Team Providers Care Anesthesia Associate Name Role Phone MARIMAR JONES CP Unavailable Allergies No Known Allergies Problems Problem Type Condition Code Onset Dates Condition Status Problem Borderline personality disorder 301.83 Active Problem Coronary atherosclerosis of unspecified type of vessel, viejas or graft 414.00 Active Problem Other and unspecified hyperlipidemia 272.4 Active Problem Lumbago 724.2 Active Problem Posttraumatic stress disorder 309.81 Active Problem Back pain M54.9 Active Problem CAD (coronary artery disease) I25.10 Active Problem Hyperlipidemia E78.5 Active Problem Major depressive disorder, recurrent episode, in partial remission 296.35 Active Problem Nightmares associated with chronic post-traumatic stress disorder 307.47 Active Problem Depression F32.9 Active Problem Tobacco abuse Z72.0 Active Medications No Known Medications Results No Known Results Summary Purpose eClinicalWorks Submission
--- OUTSIDE RECORDS SUMMARY | 2018-11-13 11:52 | XMS REPORT ---
Author Author MARIMAR JONES Organization [facility] Address [address] [place] [address] Care Team Providers Care Hadoop Admin Name Role Phone MARIMAR JONES Unavailable PROBLEMS Type Condition ICD9-CM Code XUS99-KG Code Onset Dates Condition Status SNOMED Code Problem Borderline personality disorder F60.3 Active 85228247 Problem Post-traumatic stress disorder, chronic F43.12 Active 71853134 Problem Carpal tunnel syndrome of right wrist G56.01 Active [id number] Problem PAD (peripheral artery disease) I73.9 Active 287665989 Problem Anxiety F41.9 Active 93713956 Problem Cannabis use disorder, mild, abuse F12.10 Active 55100365 Problem Bipolar affective, depress, mod F31.32 Active 564255711 Problem Fibromyalgia M79.7 Active 439785954 Problem Cervical radiculopathy M54.12 Active 97750904 Problem CAD (coronary artery disease) I25.10 Active 15585121 Problem Depression F32.9 Active 14042086 Problem Back pain M54.9 Active 125307222 Problem Tobacco abuse Z72.0 Active 86655964 Problem Hyperlipidemia E78.5 Active 42635968 ALLERGIES Substance Reaction Event Type Date Status Aspir-81 nausea Drug Allergy Sep, Active IV Dye nausea Non Drug Allergy Sep, Active ENCOUNTERS Encounter Location Date Diagnosis [facility] [address] [facility] [id number] [address] Apr, [facility] [address] [id number] [address] Mar, [facility] [address] [address] Mar, Tobacco abuse Z72.0 [facility] [address] [id number] [address] Mar, [place] [address] [place] [address] 66341- 1867 February, Fibromyalgia M79.7 [place] [id number] [place] [id number] Jan, Post-traumatic stress disorder, chronic F43.12 ; Bipolar affective, depress, mod F31.32 ; Borderline personality disorder F60.3 and Cannabis use disorder, mild, abuse F12.10 [place] [id number] [place] [address] 39769- 9058 Jan, [place] [id number] [place] [address] 39716- 1853 Dec, Bipolar affective, depress, mod F31.32 ; Post-traumatic stress disorder, chronic F43.12 ; Borderline personality disorder F60.3 and Cannabis use disorder, mild, abuse F12.10 [place] [id number] [place] [address] 57586- 9392 Dec, Hoarseness R49.0 ; Bronchitis J40 ; PAD (peripheral artery disease) I73.9 and Tobacco abuse Z72.0 [place] [id number] [place] [address] 74101- 3116 Nov, Bipolar affective, depress, mod F31.32 ; Post-traumatic stress disorder, chronic F43.12 ; Borderline personality disorder F60.3 and Cannabis use disorder, mild, abuse F12.10 [place] [address] [place] [address] 78976- 4929 Oct, Post-traumatic stress disorder, chronic F43.12 ; Bipolar affective, depress, mod F31.32 ; Borderline personality disorder F60.3 and Cannabis use disorder, mild, abuse F12.10 [place] [id number] [place] [address] 44658- 7262 Oct, Bipolar affective, depress, mod F31.32 ; Post-traumatic stress disorder, chronic F43.12 and Borderline personality disorder F60.3 [address] [place] [address]- 4318 Sep, Anxiety F41.9 [place] [address] [address]- 4416 Aug, Bipolar affective, depress, mod F31.32 ; Post-traumatic stress disorder, chronic F43.12 and Borderline personality disorder F60.3 [place] [address] 46366- 2380 Aug, Bipolar affective, depress, mod F31.32 ; Post-traumatic stress disorder, chronic F43.12 and Borderline personality disorder F60.3 [place] [address] [address]01- 1270 Aug, Fibromyalgia M79.7 ; Back pain M54.9 and Cervical radiculopathy M54.12 [place] [id number] [place] [address] 81351- 3150 Aug, Bipolar affective, depress, mod F31.32 and Post-traumatic stress disorder, chronic F43.12 [place] [id number] [place] [address] 93977- 4309 Jul, Depression F32.9 ; Borderline personality disorder F60.3 and Bipolar affective, depress, mod F31.32 [place] [id number] [place] [address] 74725- 1224 Jul, Post-traumatic stress disorder, chronic F43.12 ; Bipolar affective, depress, mod F31.32 ; Borderline personality disorder F60.3 and Cannabis use disorder, mild, abuse F12.10 [place] [address] [place] [address] 20439- 1375 Jul, Other care home (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.899 [place] [id number] [place] [address] 67776- 2936 Jun, [place] [id number] [place] [address] 85076- 4912 Jun, Depression F32.9 ; Borderline personality disorder F60.3 and Bipolar affective, depress, mod F31.32 [place] [id number] [place] [address] 55597- 6566 Jun, Depression F32.9 and Borderline personality disorder F60.3 [place] [id number] [place] [address] 58448- 6853 May, Post-traumatic stress disorder, chronic F43.12 [place] [address] [place] [id number]- 9557 May, Depression F32.9 and Borderline personality disorder F60.3 [place] [address] 837135- 0619 Apr, Post-traumatic stress disorder, chronic F43.12 ; Bipolar affective, depress, mod F31.32 ; Borderline personality disorder F60.3 ; 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 and Cannabis use disorder, mild, abuse F12.10 [place] [id number] [place] [address] 52487- 9978 Apr, Depression F32.9 and Borderline personality disorder F60.3 [place] [id number] [place] [address] 99868- 1234 Apr, Depression F32.9 and Borderline personality disorder F60.3 [place] [id number] [place] [address] 10738- 2997 Mar, Depression F32.9 and Borderline personality disorder F60.3 [place] [id number] [place] [address] 18134- 0355 February, Depression F32.9 and Borderline personality disorder F60.3 [place] [id number] [place] [address] 65769- 8681 February, Back pain M54.9 [place] [id number] [place] [address] 48477- 8892 February, Depression F32.9 and Borderline personality disorder F60.3 [place] [id number] [place] [address] 74292- 5847 February, Post-traumatic stress disorder, chronic F43.12 ; Borderline personality disorder F60.3 and Bipolar affective disorder, depressed, mild F31.31 [place] [id number] [place] [address] 84199- 9024 February, [place] [address] 26935- 5941 February, Depression F32.9 and Borderline personality disorder F60.3 [place] [address] 45220- 6976 Jan, [place] [address] 74561- 1839 Jan, Depression F32.9 and Borderline personality disorder F60.3 [place] [address] 43610- 0709 Jan, Acute lateral meniscus tear of right knee, initial encounter S83.281A [place] [address] 40771- 6446 Jan, Depression F32.9 and Borderline personality disorder F60.3 [place] [id number] [place] [address] 35860- 4254 Dec, Depression F32.9 and Borderline personality disorder F60.3 [place] [id number] [place] [address] 70495- 5960 Dec, Depression F32.9 and Borderline personality disorder F60.3 [place] [id number] [place] [address] 65815- 8609 Nov, Hyperlipidemia E78.5 ; Knee locking, right M23.91 and Carpal tunnel syndrome of right wrist G56.01 [facility] [id number] [place] [address] 29902- 0606 Nov, Bipolar affective, depress, mod F31.32 ; Post-traumatic stress disorder, chronic F43.12 and Borderline personality disorder F60.3 [facility] [id number] [place] [address] 66625- 2016 Nov, Depression F32.9 and Borderline personality disorder F60.3 [facility] [id number] [place] [address] 44041- 1526 Oct, Post-traumatic stress disorder, chronic F43.12 and Other care home (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.899 [facility] [id number] [place] [address] 29508- 2168 Oct, Nondisplaced fracture of distal end of right radius with routine healing, subsequent encounter S52.501D [facility] [id number] [place] [address] 33749- 9056 Sep, [facility] [address] 97365- 5766 Aug, Right wrist fracture, closed, initial encounter S62.101A [facility] [id number] [place] [address] 83045- 1936 Aug, [facility] [id number] [place] [address] 13304- 8209 Jul, Back pain M54.9 and Hyperlipidemia E78.5 [facility] [id number] [place] [address] 52199- 8423 Jul, Post-traumatic stress disorder, chronic F43.12 and 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 [facility] [id number] [place] [address] 59351- 8976 Apr, Bipolar affective, depress, mod F31.32 ; Post-traumatic stress disorder, chronic F43.12 and Other care home (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.899 [facility] [id number] [place] [address] 94190- 1386 Mar, [facility] [id number] [place] [address] 20375- 9525 Jan, Post-traumatic stress disorder, chronic F43.12 and Depression F32.[address] 74726- 1448 Dec, [place] [address] 99006- 5897 Nov, Shoulder pain, left M25.512 and Bronchitis J40 [address] 14700- 5379 Sep, Hyperlipidemia E78.[address] 94682- 4553 Sep, Hyperlipidemia E78.[address] 66803- 6473 Sep, [address] 00507- 8573 Sep, Back pain M54.9 ; CAD (coronary artery disease) I25.10 and Depression F32.[address] 54636- 2916 Sep, URI (upper respiratory infection) J06.9 ; Nausea & vomiting R11.2 and Tobacco abuse Z72.[address] 43787- 0810 03 Mar, 2015 Posttraumatic stress disorder 309.81 ; Major depressive disorder, recurrent episode, in partial remission 296.35 ; Nightmares associated with chronic post-traumatic stress disorder 307.47 ; Thoracic or lumbosacral neuritis or radiculitis, unspecified 724.4 ; Borderline personality disorder 301.83 and High risk medication use V58.[address] 30997- 5989 14 Jan, [address] 19364- 2545 Jan, [facility] [place] [facility] [address] [id number] [place] [address]- 2312 Dec, [facility] [place] [facility] [address] [id number] [place] [address]- 5627 Dec, [facility] [place] [facility] [address] [id number] [place]2 Sep, [facility] [place] [facility] [address] [id number] [place] [address]- 8837 Sep, [facility] [place] [facility] [address] [id number] [place] [address]- 7976 Sep, [facility] [place] [facility] [address] [id number] [place] [address]- 9819 Sep, [facility] [place] [facility] [address] [id number] [place] [address]- 8398 Sep, [facility] [place] [facility] [address] [id number] [place] [address]- 5036 Jul, [facility] [place] [facility] [address] [id number] [place] [address]- 4551 Jul, [facility] [place] [facility] [address] [id number] [address]- 1912 Jul, [facility] [place] [facility] [address] [id number] [address]- 3720 Jul, [facility] [place] [facility] [address] [id number] [address]- 1686 Jul, [facility] [place] [facility] [address] [id number] [address]- 7757 Jul, [facility] [place] [facility] [address] [id number] [address]- 2636 Jul, [facility] [place] [facility] [address] [facility] [id number] 9747 Jul, [facility] [place] [facility] [address] [id number] [address]- 9731 May, [facility] [place] [facility] [address] [id number] [place] [address]- 5725 May, [facility] [place] [facility] [address] [id number] [place] [address]- 3564 May, [facility] [place] [facility] [address] [id number] [place] [address]- 9310 May, [facility] [place] [facility] [address] [id number] [place] [address]- 8544 May, [facility] [place] [facility] [address] [id number] [place] [address]- 4433 May, [facility] [place] [facility] [address] [id number] [place] [address]- 9315 Mar, [facility] [place] [facility] [address] [id number] [place] [address]- 7481 Mar, [facility] [place] [facility] [address] [id number] [place] [address]- 2269 February, [facility] [place] [facility] [address] [id number] [place] [address]- 6538 February, [facility] [place] [facility] [address] [id number] [place] [address]- 9624 February, [facility] [place] [facility] [address] [id number] [place] [address]- 8162 February, [facility] [place] [facility] [address] [id number] [place] [address]- 0128 February, [facility] [place] [facility] [address] [id number] [place] [address]- 9312 February, [facility] [place] [facility] [address] [id number] [place] [address]- 8721 February, [facility] [place] [facility] [address] [id number] [place] [address]- 9391 Jan, [facility] [place] [facility] [address] [id number] [place] [address]- 1665 Jan, [facility] [place] [facility] [address] [id number] [place] [address]- 3476 Jan, [facility] [place] [facility] [address] [id number] [place] [address]- 0473 Jan, [facility] [place] [facility] [address] [id number] [place] [address]- 8384 24 Dec, 2013 [facility] [place] [facility] [address] [id number] [place] [address]- 3372 Dec, [facility] [place] [facility] [address] [id number] [place] [address]- 1797 Dec, [facility] [place] [facility] [address] [facility] [id number] [place] [address]- 1745 Dec, [facility] [place] [facility] [address] [id number] [place] [address]- 2385 Nov, [facility] [place] [facility] [address] [id number] [place] [address]- 6802 Nov, [facility] [place] [facility] [address] [facility] [id number] [place] [address]- 2835 Nov, [facility] [place] [facility] [address] [facility] [id number] [place] [address]- 7972 Nov, [facility] [place] [facility] [address] [facility] [id number] [address]- 6888 Nov, [facility] [place] [facility] [address] [facility] [id number] [place] [address]- 5301 Nov, [facility] [place] [facility] [address] [id number] [place] [address]- 9294 Nov, [facility] [place] [facility] [address] [facility] [id number] [place] [address]- 6940 Nov, [facility] [place] [facility] [address] [facility] [id number] [address]- 5854 Oct, [facility] [place] [facility] [address] [id number] [place] [address]- 2715 Oct, [facility] [place] [facility] [address] [id number] [place] [address]- 2314 Oct, [facility] [place] [facility] [address] [id number] [place] [address]- 0554 Oct, [facility] [place] [facility] [address] [id number] [place] [address]- 1819 Oct, [facility] [place] [facility] [address] [id number] [place] [address]- 2859 Oct, [facility] [place] [facility] [address] [id number] [place] [address]- 1674 Oct, [facility] [place] [facility] [address] [id number] [place] [address]- 3133 Oct, [facility] [place] [facility] [address] [id number] [place] [address]- 2222 Oct, [facility] [place] [facility] [address] [id number] [place] [address]- 1991 Oct, [facility] [place] [facility] [address] [facility] [id number] [place] [address]- 9052 Oct, [facility] [place] [facility] [address] [id number] [place] [address]- 5903 Aug, [facility] [place] [facility] [address] [id number] [address]- 4533 Aug, [facility] [place] [facility] [address] [id number] [place] [address]- 6363 Jul, [facility] [place] [facility] [address] [id number] [place] [address]- 0306 Jul, [facility] [place] [facility] [address] [id number] [place] [address]- 5660 Jul, [facility] [place] [facility] [address] [id number] [place] [address]- 5672 24 Jul, 2013 [facility] [place] [facility] [address] [id number] [place] [address]- 1988 27 Jun, 2013 [facility] [place] [facility] [address] [id number] [place] [address]- 1726 19 Jun, 2013 [facility] [place] [facility] [address] [id number] [place] [address]- 3706 04 Jan, 2013 [facility] [place] [facility] [address] [id number] [place] [address]- 0954 Oct, [facility] [place] [facility] [address] [id number] [place] [address]- 3179 Sep, [facility] [place] [facility] [address] [id number] [place] [address]- 1482 Sep, [facility] [place] [facility] [address] [id number] [place] [address]- 5598 Sep, [facility] [place] [facility] [address] [id number] [place] 9100 Sep, [facility] [place] [facility] [address] [id number] [place] [address]- 1068 Aug, [facility] [place] [facility] [address] [facility] [id number] [place] [address]- 7957 Aug, [facility] [place] [facility] [address] [id number] [place] [address]- 9245 Aug, [facility] [place] [facility] [address] [id number] [place] [address]- 9778 Aug, [facility] [place] [facility] [address] [id number] [place] [address]- 9910 Jul, [facility] [place] [facility] [address] [id number] [place] [address]- 8126 Jul, [facility] [place] [facility] [address] [id number] [place] [address]- 0547 Jul, [facility] [place] [facility] [address] [id number] [place] [address]- 0683 Jul, [facility] [place] [facility] [address] [id number] [place] [address]- 9847 Jul, [facility] [place] [facility] [address] [id number] [place] [address]- 2141 Jun, [facility] [place] [facility] [address] [id number] [place] [address]- 9030 Jun, [facility] [place] [facility] [address] [id number] [place] [address]- 3068 Jun, [facility] [place] [facility] [address] [id number] [place] [address]- 2658 May, [facility] [place] [facility] [address] [id number] [place] [address]- 4702 May, [facility] [place] [facility] [address] [id number] [place] [address]- 3560 Apr, [facility] [place] [facility] [address] [id number] [place] [address]- 7087 Apr, [facility] [place] [facility] [address] [id number] [place] [address]- 7368 Apr, [facility] [place] [facility] [address] [id number] [address]- 2154 Apr, [facility] [place] [facility] [address] [id number] [place] [address]- 8537 Mar, [facility] [place] [facility] [address] [id number] [place] [address]- 5547 Mar, [facility] [place] [facility] [address] [id number] [address]- 1572 Mar, [facility] [place] [facility] [address] [id number] [place] [address]- 7590 February, [facility] [place] [facility] [address] [id number] [place] [address]- 0606 February, [facility] [address] [id number] [place] [address]- 3886 February, [facility] [place] [facility] [address] [id number] [place] [address]- 8586 February, [facility] [address] [id number] [place] [address]- 0676 February, [facility] [place] [facility] [address] [id number] [place] [address]- 8891 Jan, [facility] [place] [facility] [address] [id number] [place] [address] Jan, [facility] [place] [facility] [address] [id number] [place] [address] Jan, [facility] [address] [id number] [place] [address] Dec, [facility] [place] [facility] [address] [id number] [place] [address] Dec, [facility] [place] [facility] [address] [id number] [place] [address] Dec, [facility] [place] [facility] [address] [facility] [id number] [place] [address] Nov, [facility] [place] [facility] [address] [id number] [place] [address] Nov, [facility] [place] [facility] [address] [id number] [place] [address] Nov, [facility] [place] [facility] [address] [id number] [place] [address] Nov, [facility] [place] [facility] [address] [id number] [place] [address] Oct, [facility] [place] [facility] [address] [id number] [place] [address] Oct, [facility] [place] [facility] [address] [id number] [place] [address] Sep, [facility] [place] [facility] [address] [id number] [place] [address] Sep, [facility] [place] [facility] [address] [id number] [place] [address] Sep, [facility] [place] [facility] [address] [id number] [place] [address] Sep, [facility] [place] [facility] [address] [id number] [place] [address] Aug, [facility] [place] [facility] [address] [id number] [place] [address] Aug, [facility] [place] [facility] [address] [id number] [place] [address] Aug, [facility] [place] [facility] [address] [id number] [place] [address] Jul, [facility] [place] [facility] [address] [id number] [place] [address] Jul, [facility] [place] [facility] [address] [id number] [place] [address] Jul, [facility] [place] [facility] [address] [id number] [address] May, [facility] [place] [facility] [address] [id number] [address] February, [facility] [place] [facility] [address] [id number] [place] [address] Nov, [facility] [place] [facility] [address] [id number] [address] Oct, [facility] [place] [facility] [address] [id number] [address] Oct, [facility] [place] [facility] [address] [id number] [address] 22 Sep, 2010 [facility] [address] [id number] [place] [address] 17 Sep, 2010 [facility] [place] [facility] [address] [id number] [address] 17 Sep, 2010 [facility] [address] [facility] [id number] [place] [address] 16 Sep, 2010 [facility] [address] [id number] [place] [address] 10 Sep, 2010 [facility] [address] [id number] [place] [address], [place] [address] 10 Sep, 2010 [facility] [address] [id number] [place] [address] 29 Aug, 2010 [facility] [address] [facility] [id number] [place] [address] 23 Aug, 2010 [facility] [address] [id number] [place] [address] 18 Aug, 2010 [facility] [address] [facility] [id number] [place] [address] 17 Aug, 2010 [facility] [address] [facility] [id number] [place] [id number] 16 Aug, 2010 [facility] [address] [id number] [address] 25 Jul, 2010 [facility] [address] [id number] [address] 16 Jun, 2010 [facility] [address] [id number] [address] 15 Feb, 2010 [facility] [address] [facility] [id number] [address] Oct, [facility] [address] [facility] [id number] [address] 21 Sep, 2009 [facility] [id number] [address] Aug, [facility] [id number] [address] Aug, [facility] [id number] [address] Aug, [facility] [id number] [address] Jul, [facility] [id number] [address] Jul, [facility] [id number] [place] [address] Jul, [facility] [id number] [address] 14 Jun, 2009 [facility] [id number] [place] [address] Jun, [facility] [id number] [address] 16 Mar, 2009 [facility] [id number] [address] Jan, [facility] [id number] [address] Aug, IMMUNIZATIONS No Known Immunizations SOCIAL HISTORY Never Assessed REASON FOR VISIT Anxiety---DBennettRN PLAN OF CARE Activity Details Follow Up 3 Months Reason: VITAL SIGNS Height 67 in 2017-10-24 Weight 158 lbs 2017-10-24 Temperature 98.3 degrees Fahrenheit 2017-10-24 Heart Rate 120 bpm 2017-10-24 Respiratory Rate 20 2017-10-24 BMI 24.74 kg/m2 2017-10-24 Blood pressure systolic 130 mmHg 2017-10-24 Blood pressure diastolic 76 mmHg 2017-10-24 MEDICATIONS Medication Instructions Dosage Frequency Start Date End Date Duration Status Pristiq 100 mg TAKE ONE TABLET BY MOUTH ONCE DAILY 30 days Active Lyrica 100 mg TAKE ONE CAPSULE BY MOUTH FOUR TIMES DAILY 30 Active Ibuprofen 800 MG Orally Three times a day 1 tablet 8h Aug, Active QUEtiapine Fumarate ER 300 MG Orally Once a day 1 tablet every nicolas ( 200mg tab) 24h 30 days Active Pravastatin Sodium 40 MG Orally Once a day 1 tablet 24h 30 Active Pravastatin Sodium 80 MG Orally Once a day 1 tablet 24h 30 days Active Nitrostat 0.4 MG Sublingual 2 5 min prn 1 Active Ativan 0.5 MG Orally 2 times a day 1 tablet as needed 12h Sep, Active QUEtiapine Fumarate ER 200 mg Orally Once a day 1 tablet every nicolas ( 300mg tab) 24h 30 days Active RESULTS No Results PROCEDURES [...]
--- OUTSIDE RECORDS SUMMARY | 2018-11-13 11:53 | XMS REPORT ---
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7 Active 362832167 Problem Cervical radiculopathy M54.12 Active 43952907 Problem CAD (coronary artery disease) I25.10 Active 30795229 Problem Depression F32.9 Active 80389792 Problem Back pain M54.9 Active 480111869 Problem Tobacco abuse Z72.0 Active 04488591 Problem Hyperlipidemia E78.5 Active 74751430 ALLERGIES Substance Reaction Event Type Date Status Aspir-81 nausea Drug Allergy Aug, Active IV Dye nausea Non Drug Allergy Aug, Active ENCOUNTERS Encounter Location Date Diagnosis [facility] [address] [facility] [id number], [place] [address] Apr, [facility] [address] [facility] [id number], [place] [address] February, [facility] [address] [id number] [address] February, Fibromyalgia M79.7 [facility] [address] [facility] [id number], [place] [address] Jan, Post-traumatic stress disorder, chronic F43.12 ; Bipolar affective, depress, mod F31.32 ; Borderline personality disorder F60.3 and Cannabis use disorder, mild, abuse F12.10 [place] [id number] [place] [address] Jan, [place] [id number] [place] [address] 52439- 3965 Dec, Bipolar affective, depress, mod F31.32 ; Post-traumatic stress disorder, chronic F43.12 ; Borderline personality disorder F60.3 and Cannabis use disorder, mild, abuse F12.10 [place] [id number] [place] [address] 98962- 3345 Dec, Hoarseness R49.0 ; Bronchitis J40 ; PAD (peripheral artery disease) I73.9 and Tobacco abuse Z72.[address] [address]- [address] Nov, Bipolar affective, depress, mod F31.32 ; Post-traumatic stress disorder, chronic F43.12 ; Borderline personality disorder F60.3 and Cannabis use disorder, mild, abuse F12.10 [place] [id number] [place] [address] 25671- 1927 Oct, Post-traumatic stress disorder, chronic F43.12 ; Bipolar affective, depress, mod F31.32 ; Borderline personality disorder F60.3 and Cannabis use disorder, mild, abuse F12.10 [place] [id number] [place] [address] 58149- 2252 Oct, Bipolar affective, depress, mod F31.32 ; Post-traumatic stress disorder, chronic F43.12 and Borderline personality disorder F60.3 [place] [id number] [place] [address] 39529- 4947 Sep, Anxiety F41.9 [place] [id number]- [address]67 Aug, Bipolar affective, depress, mod F31.32 ; Post-traumatic stress disorder, chronic F43.12 and Borderline personality disorder F60.3 [facility] [id number] [place] [address] 89331- 3897 Aug, Bipolar affective, depress, mod F31.32 ; Post-traumatic stress disorder, chronic F43.12 and Borderline personality disorder F60.3 [place] [id number] [place] [address] 47737- 6558 Aug, Fibromyalgia M79.7 ; Back pain M54.9 and Cervical radiculopathy M54.12 [place] [id number] [place] [address] 40228- 3441 Aug, Bipolar affective, depress, mod F31.32 and Post-traumatic stress disorder, chronic F43.12 [place] [id number] [place] [address] 79810- 2322 Jul, Depression F32.9 ; Borderline personality disorder F60.3 and Bipolar affective, depress, mod F31.32 [place] [id number] [place] [address] 89682- 3348 Jul, Post-traumatic stress disorder, chronic F43.12 ; Bipolar affective, depress, mod F31.32 ; Borderline personality disorder F60.3 and Cannabis use disorder, mild, abuse F12.10 [place] [address] [place] [address] 67264- 8864 Jul, Other 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 long 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 care (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.899 [place] [id number] [place] [address] 04458- 9585 Jun, [place] [id number] [place] [address] 86988- 8079 Jun, Depression F32.9 ; Borderline personality disorder F60.3 and Bipolar affective, depress, mod F31.32 [place] [id number] [place] [address] 00426- 1866 Jun, Depression F32.9 and Borderline personality disorder F60.3 [place] [id number] [place] [address] 84847- 8199 May, Post-traumatic stress disorder, chronic F43.12 [place] [id number] [place] [address] 00957- 0246 May, Depression F32.9 and Borderline personality disorder F60.3 [place] [id number] [place] [address] 06329- 1234 Apr, Post-traumatic stress disorder, chronic F43.12 ; Bipolar affective, depress, mod F31.32 ; Borderline personality disorder F60.3 ; [place] [facility] 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.899 and Cannabis use disorder, mild, abuse F12.10 [place] [id number] [place] [address] 34888- 8929 Apr, Depression F32.9 and Borderline personality disorder F60.3 [place] [id number] [place] [address] 90950- 5319 Apr, Depression F32.9 and Borderline personality disorder F60.3 [place] [id number] [place] [address] 27636- 9542 Mar, Depression F32.9 and Borderline personality disorder F60.3 [place] [id number] [place] [address] 14214- 2153 February, Depression F32.9 and Borderline personality disorder F60.3 [place] [id number] [place] [address] 95105- 9785 February, Back pain M54.9 [place] [id number] [place] [address] 81921- 0115 February, Depression F32.9 and Borderline personality disorder F60.3 [place] [id number] [place] [address] 10996- 0673 February, Post-traumatic stress disorder, chronic F43.12 ; Borderline personality disorder F60.3 and Bipolar affective disorder, depressed, mild F31.31 [place] [id number] [place] [address] 00149- 6489 February, [facility] [address] [address]- 6119 February, Depression F32.9 and Borderline personality disorder F60.3 [facility] [id number] [place] [address] 99663- 0484 Jan, [place] [address] 94803- 7193 Jan, Depression F32.9 and Borderline personality disorder F60.3 [place] [address] 92012- 2112 Jan, Acute lateral meniscus tear of right knee, initial encounter S83.281A [place] [id number] [place] [address] 47538- 8721 Jan, Depression F32.9 and Borderline personality disorder F60.3 [place] [id number] [place] [address] 91447- 4918 Dec, Depression F32.9 and Borderline personality disorder F60.3 [place] [id number] [place] [address] 69003- 3231 Dec, Depression F32.9 and Borderline personality disorder F60.3 [place] [id number] [place] [address] 43007- 2083 Nov, Hyperlipidemia E78.5 ; Knee locking, right M23.91 and Carpal tunnel syndrome of right wrist G56.01 [facility] [id number] [place] [address] 41346- 8867 23 Nov, 2016 Bipolar affective, depress, mod F31.32 ; Post-traumatic stress disorder, chronic F43.12 and Borderline personality disorder F60.3 [facility] [address] [place] [address] 59097- 9390 16 Nov, 2016 Depression F32.9 and Borderline personality disorder F60.3 [facility] [address] [place] [address] 40895- 4051 Oct, Post-traumatic stress disorder, chronic F43.12 [place] [facility] 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.899 [facility] [id number] [place] [address] 13935- 7796 Oct, Nondisplaced fracture of distal end of right radius with routine healing, subsequent encounter S52.501D [facility] [id number] [place] [address] 67610- 9945 Sep, [facility] [id number] [place] [address] 06174- 5356 Aug, Right wrist fracture, closed, initial encounter S62.101A [place] [id number] [place] [address] 92998- 1949 Aug, [facility] [id number] [place] [address] 18556- 3488 Jul, Back pain M54.9 and Hyperlipidemia E78.5 [facility] [id number] [place] [address] 90277- 9653 Jul, Post-traumatic stress disorder, chronic F43.12 and Other manager long term care (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.899 [facility] [address] [place] [address] 80579- 4683 Apr, Bipolar affective, depress, mod F31.32 ; Post-traumatic stress disorder, chronic F43.12 and Other manager long term care (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.899 [facility] [address], [place] [address]- 1506 Mar, [facility] [id number] [place] [address] 15325- 7826 Jan, Post-traumatic stress disorder, chronic F43.12 and Depression F32.9 [facility] [id number] [place] [address] 52056- 5223 Dec, [place] [id number] [place] [address] 00264- 0388 Nov, Shoulder pain, left M25.512 and Bronchitis J40 [place] [id number] [place] [address] 24946- 6709 Sep, Hyperlipidemia E78.5 [place] [address] 92942- 5461 Sep, Hyperlipidemia E78.5 [place] [address] 83979- 3490 Sep, [place] [address] 80758- 4749 Sep, Back pain M54.9 ; CAD (coronary artery disease) I25.10 and Depression F32.[address] 73716- 5633 Sep, URI (upper respiratory infection) J06.9 ; Nausea & vomiting R11.2 and Tobacco abuse Z72.0 [place] [id number] [place] [address] 15856- 2263 Mar, Posttraumatic stress disorder 309.81 ; Major depressive disorder, recurrent episode, in partial remission 296.35 ; Nightmares associated with chronic post-traumatic stress disorder 307.47 ; Thoracic or lumbosacral neuritis or radiculitis, unspecified 724.4 ; Borderline personality disorder 301.83 and High risk medication use V58.69 [place] [id number] [place] [address] 85277- 0475 Jan, [place] [address] 34664- 2717 Jan, [place] [id number] [place] [address] 77570- 9462 Dec, [place] [id number] [place] [address] 54429- 6315 Dec, [facility] [place] [facility] [address] [id number] [place] 6734 Sep, [facility] [place] [facility] [address] [id number] [place] 9650 Sep, [facility] [place] [facility] [address] [id number] [place] [address]- 9152 Sep, [facility] [place] [facility] [address] [id number] [place] [address]- 0489 Sep, [facility] [place] [facility] [address] [id number] [place] 5091 Sep, [facility] [place] [facility] [address] [id number] [place] [address]- 9945 Jul, [facility] [place] [facility] [address] [id number] [place] [address]- 9647 Jul, [facility] [place] [facility] [address] [id number] [place] [address]- 7655 Jul, [facility] [place] [facility] [address] [id number] [place] [address]- 9944 Jul, [facility] [place] [facility] [address] [id number] [place] [address]- 5347 Jul, [facility] [place] [facility] [address] [id number] [place] [address]- 0470 Jul, [facility] [place] [facility] [address] [id number] [place] [address]- 0749 Jul, [facility] [place] [facility] [address] [id number] [place] [address]- 5478 Jul, [facility] [place] [facility] [address] [id number] [place] 4215 May, [facility] [place] [facility] [address] [id number] [place] 3613 May, [facility] [place] [facility] [address] [id number] [place] [address]- 4463 May, [facility] [place] [facility] [address] [id number] [place] [address]- 0387 May, [facility] [place] [facility] [address] [id number] [place] [address]- 7748 May, [facility] [place] [facility] [address] [id number] [place] 7438 May, [facility] [place] [facility] [address] [id number] [place] [address]- 3615 Mar, [facility] [place] [facility] [address] [id number] [place] [address]- 5449 Mar, [facility] [place] [facility] [address] [id number] [place] [address]- 8492 February, [facility] [place] [facility] [address] [id number] [place] [address]- 8523 February, [facility] [place] [facility] [address] [id number] [place] [address]- 4433 February, [facility] [place] [facility] [address] [id number] [place] [address]- 4874 February, [facility] [place] [facility] [address] [id number] [place] [address]- 8021 February, [facility] [place] [facility] [address] [id number] [place] [address]- 6305 February, [facility] [place] [facility] [address] [id number] [place] [address]- 9320 February, [facility] [place] [facility] [address] [id number] [place] [address]- 4702 Jan, [facility] [place] [facility] [address] [id number] [place] [address]- 2289 Jan, [facility] [place] [facility] [address] [id number] [place] [address]- 4850 Jan, [facility] [place] [facility] [address] [id number] [place] [address]- 1994 Jan, [facility] [place] [facility] [address] [id number] [place] [address]- 2190 Dec, [facility] [place] [facility] [address] [id number] [place] [address]- 0306 Dec, [facility] [place] [facility] [address] [id number] [place] [address]- 4926 Dec, [facility] [place] [facility] [address] [id number] [place] [address]- 1182 Dec, [facility] [place] [facility] [address] [id number] [place] [address]- 0814 Nov, [facility] [place] [facility] [address] [id number] [place] [address]- 0479 Nov, [facility] [place] [facility] [address] [id number] [place] [address]- 1727 Nov, [facility] [place] [facility] [address] [id number] [place] [address]- 8948 Nov, [facility] [place] [facility] [address] [id number] [place] [address]- 1893 Nov, [facility] [place] [facility] [address] [facility] [id number] [place] [address]- 5408 Nov, [facility] [place] [facility] [address] [id number] [place] [address]- 3009 Nov, [facility] [place] [facility] [address] [id number] [place] 9159 Nov, [facility] [place] [facility] [address] [id number] [place] [address]- 2515 Oct, [facility] [place] [facility] [address] [id number] [place] [address]- 4762 Oct, [facility] [place] [facility] [address] [id number] [place] [address]- 1363 Oct, [facility] [place] [facility] [address] [id number] [place] [address]- 7183 Oct, [facility] [place] [facility] [address] [id number] [place] [address]- 7631 Oct, [facility] [place] [facility] [address] [id number] [place] [address]- 2426 Oct, [facility] [place] [facility] [address] [id number] [place] [address]- 3269 Oct, [facility] [place] [facility] [address] [id number] [place] [address]- 3122 Oct, [facility] [place] [facility] [address] [id number] [place] [address]- 4103 Oct, [facility] [place] [facility] [address] [id number] [place] [address]- 0896 Oct, [facility] [place] [facility] [address] [id number], [place] [address]- 2338 Oct, [facility] [place] [facility] [address] [id number], [place] [address]- 0331 Aug, [facility] [place] [facility] [address] [id number], [place] [address]- 7810 Aug, [facility] [place] [facility] [address] [id number], [place] [address]- 6091 Jul, [facility] [place] [facility] [address] [id number], [place] [address]- 3637 Jul, [facility] [place] [facility] [address] [id number], [place] [address]- 9388 Jul, [facility] [place] [facility] [address] [id number], [place] [address]- 0435 Jul, [facility] [place] [facility] [address] [id number], [place] [address]- 5579 Jun, [facility] [place] [facility] [address] [id number] [place] [address]- 0370 Jun, [facility] [place] [facility] [address] [id number] [place] [address]- 0760 Jan, [facility] [place] [facility] [address] [id number] [place] [address]- 4726 Oct, [facility] [place] [facility] [address] [id number] [place] [address]- 7510 Sep, [facility] [place] [facility] [address] [id number] [place] [address]- 2333 Sep, [facility] [place] [facility] [address] [id number] [place] [address]- 5031 Sep, [facility] [place] [facility] [address] [id number] [place] [address]- 3066 Sep, [facility] [place] [facility] [address] [id number] [place] [address]- 6514 Aug, [facility] [place] [facility] [address] [id number] [place] [address]- 5613 Aug, [facility] [place] [facility] [address] [id number] [place] [address]- 3574 Aug, [facility] [place] [facility] [address] [facility] [id number] [place] [address]- 4302 Aug, [facility] [place] [facility] [address] [id number] [place] [address]- 7369 Jul, [facility] [place] [facility] [address] [id number] [place] [address]- 8276 Jul, [facility] [place] [facility] [address] [id number] [place] [address]- 2327 Jul, [facility] [place] [facility] [address] [facility] [id number] [place] [address]- 2457 Jul, [facility] [place] [facility] [address] [id number] [place] [address]- 2534 Jul, [facility] [place] [facility] [address] [id number] [place] [address]- 6208 Jun, [facility] [place] [facility] [address] [id number] [place] [address]- 9506 Jun, [facility] [place] [facility] [address] [id number] [place] [address]- 2546 Jun, [facility] [place] [facility] [address] [id number] [place] [address]- 5630 May, [facility] [place] [facility] [address] [id number] [place] [address]- 6381 May, [facility] [place] [facility] [address] [id number] [place] [address]- 7058 Apr, [facility] [place] [facility] [address] [id number] [place] [address]- 2550 Apr, [facility] [place] [facility] [address] [id number] [place] [address]- 5221 Apr, [facility] [place] [facility] [address] [id number] [place] [address]- 1843 Apr, [facility] [place] [facility] [address] [id number] [place] [address]- 6990 Mar, [facility] [place] [facility] [address] [id number] [place] [address]- 7972 Mar, [facility] [place] [facility] [address] [id number] [place] [address]- 3859 Mar, [facility] [place] [facility] [address] [id number] [place] [address]- 9030 February, [facility] [place] [facility] [address] [id number] [place] [address]- 2896 February, [facility] [place] [facility] [address] [id number] [place] [address]- 5466 February, [facility] [place] [facility] [address] [id number] [place] [address]- 8581 February, [facility] [address] [id number] [place] [address]- 2046 February, [facility] [address] [id number] [place] [address]- 0221 Jan, [facility] [address] [id number] [place] [address]- 8136 Jan, [facility] [address] [id number] [place] [address]- 5804 Jan, [facility] [address] [id number] [place] [address]- 2735 Dec, [facility] [address] [facility] [id number] [place] [address]- 9117 Dec, [facility] [address] [facility] [id number] [place] [address]- 2425 Dec, [facility] [address] [id number] [place] [address]- 0527 Nov, [facility] [address] [facility] [id number] [place] [address]- 9229 Nov, [facility] [address] [facility] [id number] [place] [address] Nov, [facility] [address] [facility] [id number] [place] [address] Nov, [facility] [place] [facility] [address] [id number] [place] [address] Oct, [facility] [place] [facility] [address] [id number] [place] [address] Oct, [facility] [place] [facility] [address] [id number] [place] [address] Sep, [facility] [place] [facility] [address] [facility] [id number] [place] [address] Sep, [facility] [place] [facility] [address] [id number] [place] [address] 14 Sep, 2011 [facility] [place] [facility] [address] [id number] [place] [address] 05 Sep, 2011 [facility] [place] [facility] [address] [id number] [place] [address] Aug, [facility] [place] [facility] [address] [id number] [place] [address] Aug, [facility] [place] [facility] [address] [id number] [place] [address] Aug, [facility] [place] [facility] [address] [id number] [place] [address] Jul, [facility] [place] [facility] [address] [id number] [place] [address] Jul, [facility] [place] [facility] [address] [id number] [place] [address] Jul, [facility] [place] [facility] [address] [id number] [place] [address] May, [facility] [place] [facility] [address] [id number] [place] [address] February, [facility] [place] [facility] [address] [id number] [place] [address] Nov, [facility] [place] [facility] [address] [id number] [place] [address] Oct, [facility] [place] [facility] [address] [id number] [place] [address] Oct, [facility] [place] [facility] [address] [id number] [place] [address] Sep, [facility] [place] [facility] [address] [id number] [place] [address] Sep, [facility] [place] [facility] [address] [id number] [place] [address] 17 Sep, 2010 [facility] [place] [facility] [address] [id number] [place] [address] 16 Sep, 2010 [facility] [place] [facility] [address] [id number] [place] [address] 10 Sep, 2010 [facility] [place] [facility] [address] [id number] [place] [address] 10 Sep, 2010 [facility] [place] [facility] [address] [id number] [place] [address] 29 Aug, 2010 [facility] [place] [facility] [address] [id number] [place] [address] 23 Aug, 2010 [facility] [place] [facility] [address] [id number] [place] [address] 18 Aug, 2010 [facility] [place] [facility] [address] [id number] [place] [address] 17 Aug, 2010 [facility] [place] [facility] [address] [id number], [place] [address] 16 Aug, 2010 [facility] [place] [facility] [address] [id number], [place] [address] 25 Jul, 2010 [facility] [place] [facility] [address] [id number], [place] [address] 16 Jun, 2010 [facility] [place] [facility] [address] [id number], [place] [address] 15 Feb, 2010 [facility] [place] [facility] [address] [id number], [place] [address] Oct, [facility] [place] [facility] [address] [id number] [place] [address] Sep, [facility] [place] [facility] [address] [id number], [place] [address] 24 Aug, 2009 [facility] [place] [facility] [address] [id number], [place] [address] Aug, [facility] [place] [facility] [id number], [place] [address] Aug, [facility] [id number] [id number] Jul, [facility] [id number] [address] Jul, [facility] [id number] [address] Jul, [facility] [id number], [place] [address] Jun, [facility] [id number] [place] [id number] Jun, [facility] [id number] [place] [id number] Mar, [facility] [id number] [place] [id number] Jan, [facility] [id number], [place] [address] Aug, IMMUNIZATIONS No Known Immunizations SOCIAL HISTORY Never Assessed REASON FOR VISIT med refills, she is out of her lyrica, PT also has a sharp pain around the area of right shoulder/neck, her arms have been falling asleep and hip and leg pain- Leesa COVARRUBIAS PLAN OF CARE Activity Details Follow Up 6 Months Reason: VITAL SIGNS Height 67 in 2017-08-28 Weight 158.6 lbs 2017-08-28 Temperature 98.1 degrees Fahrenheit 2017-08-28 Heart Rate 106 bpm 2017-08-28 Respiratory Rate 20 2017-08-28 BMI 24.84 kg/m2 2017-08-28 Blood pressure systolic 104 mmHg 2017-08-28 Blood pressure diastolic 70 mmHg 2017-08-28 MEDICATIONS Medication Instructions Dosage Frequency Start Date End Date Duration Status Ibuprofen 800 MG Orally Three times a day 1 tablet 8h Aug, Active Lyrica 100 mg TAKE ONE CAPSULE BY MOUTH FOUR TIMES DAILY 30 Active QUEtiapine Fumarate ER 300 MG Orally Once a day 1 tablet every nicolas ( 200mg tab) 24h 30 days Active Nitrostat 0.4 MG Sublingual 2 5 min prn 1 Active QUEtiapine Fumarate ER 200 mg Orally Once a day 1 tablet every nicolas ( 300mg tab) 24h 30 days Active Pristiq 100 mg TAKE ONE TABLET BY MOUTH ONCE DAILY 30 days Active Pravastatin Sodium 80 MG Orally Once a day 1 tablet 24h 30 days Active RESULTS No Results [...]
--- OUTSIDE RECORDS SUMMARY | 2018-11-13 11:53 | XMS REPORT ---
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 Name Role Phone MATTHEW ACOSTA Unavailable PROBLEMS Type Condition ICD9-CM Code PLY58-RG Code Onset Dates Condition Status SNOMED Code Problem Borderline personality disorder F60.3 Active 28433372 Problem Post-traumatic stress disorder, chronic F43.12 Active 83357111 Problem Carpal tunnel syndrome of right wrist G56.01 Active [id number] Problem PAD (peripheral artery disease) I73.9 Active 745647990 Problem Anxiety F41.9 Active 78589119 Problem Cannabis use disorder, mild, abuse F12.10 Active 10773933 Problem Bipolar affective, depress, mod F31.32 Active 454034746 Problem Fibromyalgia M79.7 Active 666868049 Problem Cervical radiculopathy M54.12 Active 00238746 Problem CAD (coronary artery disease) I25.10 Active 04288533 Problem Depression F32.9 Active 74946952 Problem Back pain M54.9 Active 165206636 Problem Tobacco abuse Z72.0 Active 72410416 Problem Hyperlipidemia E78.5 Active 06372416 ALLERGIES No Information ENCOUNTERS Encounter Location Date Diagnosis [facility] [id number] [address] February, [facility] [address], [place] [address] Jan, [facility] [id number] [place] [address] 12274- 2423 Jan, [facility] [address], [place] [address] Jan, [facility] [address] [place] [address] 81556- 0454 Dec, Bipolar affective, depress, mod F31.32 ; Post-traumatic stress disorder, chronic F43.12 ; Borderline personality disorder F60.3 and Cannabis use disorder, mild, abuse F12.10 [facility] [facility] [id number] [place] [address] 43344- 6085 Dec, Hoarseness R49.0 ; Bronchitis J40 ; PAD (peripheral artery disease) I73.9 and Tobacco abuse Z72.0 [place] [address] [id number]- [address]60 Nov, Bipolar affective, depress, mod F31.32 ; Post-traumatic stress disorder, chronic F43.12 ; Borderline personality disorder F60.3 and Cannabis use disorder, mild, abuse F12.10 [facility] [facility] [id number] [place] [address] 62955- 5820 Oct, Post-traumatic stress disorder, chronic F43.12 ; Bipolar affective, depress, mod F31.32 ; Borderline personality disorder F60.3 and Cannabis use disorder, mild, abuse F12.10 [facility] [id number] [place] [address] 53149- 3660 Oct, Bipolar affective, depress, mod F31.32 ; Post-traumatic stress disorder, chronic F43.12 and Borderline personality disorder F60.3 [place] [id number] [place] [address] 96001- 5633 Sep, Anxiety F41.9 [place] [address] [id number]- 3840 Aug, Bipolar affective, depress, mod F31.32 ; Post-traumatic stress disorder, chronic F43.12 and Borderline personality disorder F60.3 [place] [address] [id number]- 7382 Aug, Bipolar affective, depress, mod F31.32 ; Post-traumatic stress disorder, chronic F43.12 and Borderline personality disorder F60.3 [place] [address] [address]47- 1311 Aug, Fibromyalgia M79.7 ; Back pain M54.9 and Cervical radiculopathy M54.12 [place] [address] [address]- 0415 Aug, Bipolar affective, depress, mod F31.32 and Post-traumatic stress disorder, chronic F43.12 [place] [address] [address]- 3365 Jul, Depression F32.9 ; Borderline personality disorder F60.3 and Bipolar affective, depress, mod F31.32 [place] [id number] [place] [address] 965320- 9564 Jul, Post-traumatic stress disorder, chronic F43.12 ; Bipolar affective, depress, mod F31.32 ; Borderline personality disorder F60.3 and Cannabis use disorder, mild, abuse F12.10 [place] [address] [address]72- 1701 Jul, Other long term care administrator (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.899 [place] [address] [address]- 5039 Jun, [place] [facility] [address] 26531- 5155 Jun, Depression F32.9 ; Borderline personality disorder F60.3 and Bipolar affective, depress, mod F31.32 [facility] [facility] [id number] [place] [address] 43584- 7261 Jun, Depression F32.9 and Borderline personality disorder F60.3 [place] [id number] [place] [address] 00399- 7476 May, Post-traumatic stress disorder, chronic F43.12 [facility] [facility] [id number] [place] [address] 73218- 7231 May, Depression F32.9 and Borderline personality disorder F60.3 [address] [id number] [place] [address] [address] Apr, Post-traumatic stress disorder, chronic F43.12 ; Bipolar affective, depress, mod F31.32 ; Borderline personality disorder F60.3 ; Other intermediate (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.899 and Cannabis use disorder, mild, abuse F12.10 [facility] [address] [place] [address] 29344- 0813 Apr, Depression F32.9 and Borderline personality disorder F60.3 [facility] [id number] [place] [address] 55797- 2347 Apr, Depression F32.9 and Borderline personality disorder F60.3 [facility] [id number] [place] [address] 67245- 6543 Mar, Depression F32.9 and Borderline personality disorder F60.3 [facility] [id number] [place] [address] 80827- 4069 February, Depression F32.9 and Borderline personality disorder F60.3 [place] [id number] [place] [address] 44475- 3894 February, Back pain M54.9 [facility] [id number] [place] [address] 84552- 3939 February, Depression F32.9 and Borderline personality disorder F60.3 [facility] [id number] [place] [address] 10233- 4714 February, Post-traumatic stress disorder, chronic F43.12 ; Borderline personality disorder F60.3 and Bipolar affective disorder, depressed, mild F31.31 [facility] [address] [place] [address] 02916- 2449 February, [place] [facility] [id number] [place] [address] 01643- 1798 February, Depression F32.9 and Borderline personality disorder F60.3 [facility] [id number] [place] [address] 80731- 0690 Jan, [place] [facility] [id number] [place] [address] 74845- 6953 Jan, Depression F32.9 and Borderline personality disorder F60.3 [place] [id number] [place] [address] 19125- 9621 Jan, Acute lateral meniscus tear of right knee, initial encounter S83.281A [place] [address] 55930- 7708 Jan, Depression F32.9 and Borderline personality disorder F60.3 [address] [address] 76730- 6302 Dec, Depression F32.9 and Borderline personality disorder F60.3 [facility] [id number] [place] [address] 53704- 2381 Dec, Depression F32.9 and Borderline personality disorder F60.3 [place] [id number] [place] [address] 76386- 1172 Nov, Hyperlipidemia E78.5 ; Knee locking, right M23.91 and Carpal tunnel syndrome of right wrist G56.01 [place] [id number] [place] [address] 95315- 0371 Nov, Bipolar affective, depress, mod F31.32 ; Post-traumatic stress disorder, chronic F43.12 and Borderline personality disorder F60.3 [facility] [id number] [place] [address] 26304- 3678 Nov, Depression F32.9 and Borderline personality disorder F60.3 [facility] [facility] [id number] [place] [address] 12747- 0980 Oct, Post-traumatic stress disorder, chronic F43.12 and Other long term care administrator (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.899 [place] [id number] [place] [address] 69937- 3112 Oct, Nondisplaced fracture of distal end of right radius with routine healing, subsequent encounter S52.501D [facility] [address] 30985- 3801 Sep, [place] [address] 74758- 2895 Aug, Right wrist fracture, closed, initial encounter S62.101A [place] [address] 96588- 5104 Aug, [place] [address] 25584- 4538 Jul, Back pain M54.9 and Hyperlipidemia E78.5 [place] [address] 67804- 1735 Jul, Post-traumatic stress disorder, chronic F43.12 and Other long term care administrator (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.899 [address] [address] 24339- 9871 Apr, Bipolar affective, depress, mod F31.32 ; Post-traumatic stress disorder, chronic F43.12 and Other long term care administrator (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.899 [address] [address] [address] 96043- 5584 Mar, [place] [address] 78493- 5612 Jan, Post-traumatic stress disorder, chronic F43.12 and Depression F32.9 [place] [id number] [place] [address] 52705- 4902 Dec, [address] [address] 59190- 1672 Nov, Shoulder pain, left M25.512 and Bronchitis J40 [address] [address] 80427- 0098 17 Sep, 2015 Hyperlipidemia E78.5 [place] [address] 42155- 7904 Sep, Hyperlipidemia E78.5 [facility] [id number] [place] [address] 27199- 9169 Sep, [facility] [id number] [place] [address] 54057- 0614 Sep, Back pain M54.9 ; CAD (coronary artery disease) I25.10 and Depression F32.9 [facility] [id number] [place] [address] 24606- 7672 Sep, URI (upper respiratory infection) J06.9 ; Nausea & vomiting R11.2 and Tobacco abuse Z72.0 [place] [id number] [place] [address] 44398- 6170 Mar, Posttraumatic stress disorder 309.81 ; Major depressive disorder, recurrent episode, in partial remission 296.35 ; Nightmares associated with chronic post-traumatic stress disorder 307.47 ; Thoracic or lumbosacral neuritis or radiculitis, unspecified 724.4 ; Borderline personality disorder 301.83 and High risk medication use V58.69 [facility] [id number] [place] [address] 91048- 2014 Jan, [facility] [id number] [place] [address] 23568- 4872 Jan, [facility] [address] [place] [address] 18941- 5711 Dec, [facility] [id number] [place] [address] 40209- 4734 Dec, [facility] [id number] [place] [address] 45895- 9374 Sep, [facility] [id number] [place] [address] 704603- 2891 Sep, [facility] [id number] [place] [address] 14046- 5121 Sep, [facility] [id number] [place] [address]- 7343 Sep, [facility] [place] [facility] [address] [id number] [place] [address]- 8901 Sep, [facility] [place] [facility] [address] [id number] [place] [address]- 7876 Jul, [facility] [place] [facility] [address] [id number] [place] [address]- 9277 Jul, [facility] [place] [facility] [address] [id number] [place] [address]- 7589 Jul, [facility] [place] [facility] [address] [id number] [place]841 Jul, [facility] [place] [facility] [address] [id number] [place] [address]- 2970 Jul, [facility] [place] [facility] [address] [id number] [place] [address]- 5482 Jul, [facility] [place] [facility] [address] [id number] [place] [address]- 9118 Jul, [facility] [place] [facility] [address] [id number] [place] [address]- 4076 Jul, [facility] [place] [facility] [address] [id number] [place] [address]- 3308 May, [facility] [place] [facility] [address] [id number] [place] [address]- 1756 May, [facility] [place] [facility] [address] [id number] [place] [address]- 4299 May, [facility] [place] [facility] [address] [id number] [place] [address]- 9586 May, [facility] [place] [facility] [address] [id number] [place] [address]- 9965 May, [facility] [place] [facility] [address] [id number] [place] [address]- 2874 May, [facility] [place] [facility] [address] [id number] [place] [address]- 3731 Mar, [facility] [place] [facility] [address] [id number] [place] [address]- 4097 Mar, [facility] [place] [facility] [address] [id number] [place] [address]- 0060 February, [facility] [place] [facility] [address] [id number] [place] [address]- 4410 February, [facility] [place] [facility] [address] [id number] [place] [address]- 4799 February, [facility] [place] [facility] [address] [id number] [place] [address]- 6738 February, [facility] [place] [facility] [address] [id number] [place] [address]- 9082 February, [facility] [place] [facility] [address] [id number] [place] [address]- 8195 February, [facility] [place] [facility] [address] [id number] [place] [address]- 6383 February, [facility] [place] [facility] [address] [id number] [place] [address]- 9935 Jan, [facility] [place] [facility] [address] [id number] [place] [address]- 6130 Jan, [facility] [place] [facility] [address] [id number] [place] [address]- 7022 Jan, [facility] [place] [facility] [address] [id number] [place] [address]- 6082 Jan, [facility] [place] [facility] [address] [id number] [place] [address]- 2645 Dec, [facility] [place] [facility] [address] [id number] [place] [address]- 2231 Dec, [facility] [place] [facility] [address] [id number] [place] [address]- 2697 Dec, [facility] [place] [facility] [address] [id number] [place] [address]- 6516 Dec, [facility] [place] [facility] [address] [id number] [place] [address]- 8056 Nov, [facility] [place] [facility] [address] [id number] [place] [address]- 6326 Nov, [facility] [place] [facility] [address] [id number] [place] [address]- 8829 Nov, [facility] [place] [facility] [address] [id number] [place] [address]- 8399 Nov, [facility] [place] [facility] [address] [id number] [place] [address]- 1636 Nov, [facility] [place] [facility] [address] [id number] [place] [address]- 1599 Nov, [facility] [place] [facility] [address] [id number] [place] [address]- 1105 Nov, [facility] [place] [facility] [address] [id number] [place] [address]- 2114 Nov, [facility] [place] [facility] [address] [id number] [place] [address]- 7627 Oct, [facility] [place] [facility] [address] [id number] [place] [address]- 5417 Oct, [facility] [place] [facility] [address] [id number] [place] [address]- 6343 Oct, [facility] [place] [facility] [address] [id number] [place] [address]- 5016 Oct, [facility] [place] [facility] [address] [id number] [place] [address]- 0593 Oct, [facility] [place] [facility] [address] [id number] [place] [address]- 2741 Oct, [facility] [place] [facility] [address] [id number] [place] [address]- 0853 Oct, [facility] [place] [facility] [address] [id number] [place] [address]- 8451 Oct, [facility] [place] [facility] [address] [id number] [place] [address]- 0203 Oct, [facility] [place] [facility] [address] [id number] [place] [address]- 5485 Oct, [facility] [place] [facility] [address] [id number] [place] [address]- 7870 Oct, [facility] [place] [facility] [address] [id number] [place] [address]- 4032 Aug, [facility] [place] [facility] [address] [id number] [place] [address]- 0320 Aug, [facility] [place] [facility] [address] [id number] [place] [address]- 0587 Jul, [facility] [place] [facility] [address] [id number] [place] [address]- 5026 Jul, [facility] [place] [facility] [address] [id number] [place] [address]- 8663 Jul, [facility] [place] [facility] [address] [id number] [place] [address]- 1035 Jul, [facility] [place] [facility] [address] [id number], [place] [address]- 1146 Jun, [facility] [place] [facility] [address] [id number] [place] [address]- 0156 Jun, [facility] [place] [facility] [address] [id number] [place] [address]- 3295 Jan, [facility] [place] [facility] [address] [id number] [place] [address]- 2893 Oct, [facility] [place] [facility] [address] [id number] [place] [address]- 1248 Sep, [facility] [place] [facility] [address] [id number] [place] [address]- 3511 Sep, [facility] [place] [facility] [address] [id number] [place] [address]- 6322 Sep, [facility] [place] [facility] [address] [id number] [place] [address]- 1766 Sep, [facility] [place] [facility] [address] [id number] [place] [address]- 5064 Aug, [facility] [place] [facility] [id number] [place] [address], [place] [address]- 9514 Aug, [facility] [place] [facility] [address] [id number] [place] [address]- 2854 Aug, [facility] [place] [facility] [address] [facility] [id number] [place] [address]- 5334 Aug, [facility] [place] [facility] [address] [id number] [place] [address]- 4687 Jul, [facility] [place] [facility] [address] [id number] [place] [address]- 1843 Jul, [facility] [place] [facility] [address] [facility] [id number] [place] [address]- 7972 Jul, [facility] [place] [facility] [address] [id number] [place] [address]- 6709 Jul, [facility] [place] [facility] [address] [id number], [place] [address]- 9973 Jul, [facility] [place] [facility] [address] [id number], [place] [address]- 3968 Jun, [facility] [place] [facility] [address] [id number], [place] [address]- 1261 Jun, [facility] [place] [facility] [address] [facility] [id number], [place] [address]- 5515 Jun, [facility] [place] [facility] [address] [id number] [place] [address]- 2309 May, [facility] [place] [facility] [address] [id number] [place] [address]- 2496 May, [facility] [place] [facility] [address] [id number] [place] [address]- 9636 Apr, [facility] [place] [facility] [address] [id number] [place] [address]- 2373 Apr, [facility] [place] [facility] [address] [id number] [place] [address]- 6994 Apr, [facility] [place] [facility] [address] [id number] [place] [address]- 5231 Apr, [facility] [place] [facility] [address] [id number] [place] [address]- 4324 Mar, [facility] [place] [facility] [address] [id number] [place] [address]- 9438 Mar, [facility] [place] [facility] [address] [id number] [place] [address]- 1963 Mar, [facility] [place] [facility] [address] [id number] [place] [address]- 8846 February, [facility] [place] [facility] [address] [id number] [place] [address]- 1879 February, [facility] [place] [facility] [address] [id number] [place] [address]- 6306 February, [facility] [place] [facility] [address] [id number] [place] [address]- 1266 February, [facility] [place] [facility] [address] [id number] [place] [address]- 1556 February, [facility] [place] [facility] [address] [id number] [place] [address]- 3596 Jan, [facility] [place] [facility] [address] [id number] [place] [address]- 0214 Jan, [facility] [place] [facility] [address] [id number] [place] [address]- 9052 Jan, [facility] [place] [facility] [address] [id number] [place] [address]- 8866 30 Dec, 2011 [facility] [place] [facility] [address] [id number] [place] [address]- 5676 Dec, [facility] [place] [facility] [address] [id number] [place] [address]- 0598 Dec, [facility] [place] [facility] [address] [id number] [place] [address]- 9348 29 Nov, 2011 [facility] [place] [facility] [address] [id number] [place] [address]- 0525 16 Nov, 2011 [facility] [place] [facility] [address] [id number] [place] [address]- 1283 Nov, [facility] [place] [facility] [address] [id number] [place] [address]- 1036 Nov, [facility] [place] [facility] [address] [id number] [place] [address]- 7486 Oct, [facility] [place] [facility] [address] [id number] [place] [address] Oct, [facility] [place] [facility] [address] [id number] [place] [address] Sep, [facility] [place] [facility] [address] [id number] [place] [address] 30 Sep, 2011 [facility] [place] [facility] [address] [id number] [place] [address] 14 Sep, 2011 [facility] [place] [facility] [address] [id number] [place] [address] 05 Sep, 2011 [facility] [place] [facility] [address] [id number] [place] [address] Aug, [facility] [place] [facility] [address] [id number] [place] [address] 10 Aug, 2011 [facility] [address] [id number] [place] [address] Aug, [facility] [place] [facility] [address] [id number] [place] [address] Jul, [facility] [address] [id number] [place] [address] Jul, [facility] [place] [facility] [address] [id number] [place] [address] Jul, [facility] [address] [id number] [place] [address] 47[address] May, [facility] [place] [facility] [address] [id number] [place] [address] February, [facility] [address] [id number] [place] [address] Nov, [facility] [address] [id number] [place] [address] Oct, [facility] [address] [id number] [place] [address] Oct, [facility] [address] [id number] [place] [address] Sep, [facility] [address] [id number] [place] [address] 17 Sep, 2010 [facility] [place] [facility] [address] [id number] [place] [address] 17 Sep, 2010 [facility] [place] [facility] [address] [id number] [place] [address] 16 Sep, 2010 [facility] [place] [facility] [address] [id number] [place] [address] Sep, [facility] [place] [facility] [address] [id number] [place] [address] Sep, [facility] [place] [facility] [address] [id number] [place] [address] 29 Aug, 2010 [facility] [place] [facility] [address] [id number] [place] [address] 23 Aug, 2010 [facility] [place] [facility] [address] [id number] [place] [address] 18 Aug, 2010 [facility] [place] [facility] [address] [id number] [place] [address] 17 Aug, 2010 [facility] [place] [facility] [address] [id number] [place] [address] 16 Aug, 2010 [facility] [place] [facility] [address] [id number] [place] [address] 25 Jul, 2010 [facility] [place] [facility] [address] [id number] [place] [address] 16 Jun, 2010 [facility] [place] [facility] [address] [id number], [place] [address] 15 Feb, 2010 [facility] [place] [facility] [address] [id number] [place] [address] Oct, [facility] [place] [facility] [address] [id number], [place] [address] Sep, [facility] [place] [facility] [address] [id number], [place] [address] Aug, [facility] [place] [facility] [address] [id number], [place] [address] Aug, [facility] [place] [facility] [address] [id number] [place] [address] Aug, [facility] [place] [facility] [address] [id number], [place] [address] 20 Jul, 2009 [facility] [place] [facility] [address] [id number], [place] [address] 15 Jul, 2009 [facility] [place] [facility] [address] [id number], [place] [address] 15 Jul, 2009 [facility] [address] [id number], [place] [address] 14 Jun, 2009 [facility] [address] [id number] [address] 10 Jun, 2009 [facility] [address] [id number], [place] [address] 16 Mar, 2009 [facility] [id number], [place] [address] Jan, [facility] [address] [id number], [place] [address] Aug, IMMUNIZATIONS No Known Immunizations SOCIAL HISTORY Never Assessed REASON FOR VISIT f/u PLAN OF CARE Activity Details Follow Up Every 2 weeks, 1/2 hour sessions Reason: VITAL SIGNS MEDICATIONS Unknown Medications RESULTS No Results PROCEDURES Procedure Date Ordered Result Body Site Psychotherapy, patient &/family, 30 minutes, established patient May 07, 2017 INSTRUCTIONS MEDICATIONS ADMINISTERED No Known Medications [...]
--- OUTSIDE RECORDS SUMMARY | 2018-11-13 11:53 | XMS REPORT ---
Author MARIMAR Galeana [facility] e[employer] Address Unknown Phone Unavailable Care Team Providers Care Polisher Numeral Name Role Phone MARIMAR JONES CP Unavailable Allergies, Adverse Reactions, Alerts Substance Reaction Event Type Aspir-81 nausea Drug Allergy IV Dye nausea Non Drug Allergy Problems Problem Type Condition Code Onset Dates Condition Status Problem Back pain M54.9 Active Problem CAD (coronary artery disease) I25.10 Active Problem Hyperlipidemia E78.5 Active Assessment Back pain M54.9 Active Assessment Hyperlipidemia E78.5 Active Problem Depression F32.9 Active Problem Tobacco abuse Z72.0 Active Medications Medication Code System Code Instructions Start Date End Date Status Dosage Lyrica [facility] [id number] 100 MG TAKE ONE CAPSULE BY MOUTH FOUR TIMES DAILY Lidoderm [facility] [address]-27 5 %(700 mg/patch) May 30, 2014 1 PATCH by Topical route 1 time per day (remove patch(s) after 12 hours) Pristiq [facility] [address]-98 100 MG TAKE ONE TABLET BY MOUTH ONCE DAILY Seroquel XR [facility] [id number] 400 MG Orally Once a day TAKE ONE TABLET BY MOUTH ONCE PER DAY BETWEEN DINNER AND BEDTIME Pravastatin Sodium [facility] [address]-96 40 mg Orally Once a day 1 tablet Procedures Procedure Coding System Code Date THER/PROPH/DIAG INJ, SC/IM CPT-4 29622 Aug 19, 2016 Office Visit, Est Pt., Level 3 CPT-4 52540 Aug 19, 2016 TORADOL (IM) 60 MG/2ML (UP TO 15 MG) CPT-4 J1885 Aug 19, 2016 Vital Signs Date/Time: Aug 19, 2016 Cardiac Monitoring Heart Rate 100 bpm Weight 163.9 lbs Height 67 in BMI 25.67 Index Blood Pressure Diastolic 72 mmHg Blood Pressure Systolic 116 mmHg Results No Known Results Summary Purpose eClinicalWorks Submission
--- OUTSIDE RECORDS SUMMARY | 2018-11-13 11:54 | XMS REPORT ---
Author Author ELIECER ROMAN [facility] Address [address] [place] [address] Care Team Providers Care Clinical Administrator Name Role Phone ABELELIECER Unavailable PROBLEMS Type Condition ICD9-CM Code VER14-ZS Code Onset Dates Condition Status SNOMED Code Problem Borderline personality disorder F60.3 Active 04868546 Problem Post-traumatic stress disorder, chronic F43.12 Active 16864351 Problem Carpal tunnel syndrome of right wrist G56.01 Active [id number] Problem PAD (peripheral artery disease) I73.9 Active 067852299 Problem Anxiety F41.9 Active 28459168 Problem Cannabis use disorder, mild, abuse F12.10 Active 29197400 Problem Bipolar affective, depress, mod F31.32 Active 349070339 Problem Fibromyalgia M79.7 Active 881333942 Problem Cervical radiculopathy M54.12 Active 33679654 Problem CAD (coronary artery disease) I25.10 Active 20151229 Problem Depression F32.9 Active 43056208 Problem Back pain M54.9 Active 468008874 Problem Tobacco abuse Z72.0 Active 07987835 Problem Hyperlipidemia E78.5 Active 59101645 ALLERGIES Substance Reaction Event Type Date Status Aspir-81 nausea Drug Allergy Apr, Active IV Dye nausea Non Drug Allergy Apr, Active ENCOUNTERS Encounter Location Date Diagnosis [facility] [address] [facility] [id number] [address] February, [facility] [address] [id number] [address] Jan, [facility] [address] [address] Jan, [facility] [address] [id number] [address] Jan, [place] [address] [address] Dec, Bipolar affective, depress, mod F31.32 ; Post-traumatic stress disorder, chronic F43.12 ; Borderline personality disorder F60.3 and Cannabis use disorder, mild, abuse F12.10 [place] [address] [place] [address] 15123- 3451 Dec, Hoarseness R49.0 ; Bronchitis J40 ; PAD (peripheral artery disease) I73.9 and Tobacco abuse Z72.0 [place] [id number] [place] [address] 43457- 1144 Nov, Bipolar affective, depress, mod F31.32 ; Post-traumatic stress disorder, chronic F43.12 ; Borderline personality disorder F60.3 and Cannabis use disorder, mild, abuse F12.10 [place] [address] [place] [address] 39199- 2056 Oct, Post-traumatic stress disorder, chronic F43.12 ; Bipolar affective, depress, mod F31.32 ; Borderline personality disorder F60.3 and Cannabis use disorder, mild, abuse F12.10 [place] [id number] [place] [address] 14157- 8675 Oct, Bipolar affective, depress, mod F31.32 ; Post-traumatic stress disorder, chronic F43.12 and Borderline personality disorder F60.3 [place] [address] [place] [address] 35829- 4145 Sep, Anxiety F41.9 [place] [id number] [place] [address] 14391- 6612 Aug, Bipolar affective, depress, mod F31.32 ; Post-traumatic stress disorder, chronic F43.12 and Borderline personality disorder F60.3 [place] [address] [place] [address] 02802- 1071 Aug, Bipolar affective, depress, mod F31.32 ; Post-traumatic stress disorder, chronic F43.12 and Borderline personality disorder F60.3 [place] [address] [place] [address] 08884- 7588 Aug, Fibromyalgia M79.7 ; Back pain M54.9 and Cervical radiculopathy M54.12 [place] [id number] [place] [address] 30988- 9956 Aug, Bipolar affective, depress, mod F31.32 and Post-traumatic stress disorder, chronic F43.12 [place] [id number] [place] [address] 973070- 5650 Jul, Depression F32.9 ; Borderline personality disorder F60.3 and Bipolar affective, depress, mod F31.32 [place] [id number] [place] [address] 91319- 9393 Jul, Post-traumatic stress disorder, chronic F43.12 ; Bipolar affective, depress, mod F31.32 ; Borderline personality disorder F60.3 and Cannabis use disorder, mild, abuse F12.10 [place] [id number] [place] [address] 21702- 4508 Jul, Other termite helper (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.899 [place] [id number] [place] [address] 67940- 1716 Jun, [place] [id number] [place] [address] 17368- 1187 Jun, Depression F32.9 ; Borderline personality disorder F60.3 and Bipolar affective, depress, mod F31.32 [place] [id number] [place] [address] 62034- 5143 Jun, Depression F32.9 and Borderline personality disorder F60.3 [place] [id number] [place] [address] 17896- 4293 May, Post-traumatic stress disorder, chronic F43.12 [place] [id number] [place] [address] 04299- 2978 May, Depression F32.9 and Borderline personality disorder F60.3 [facility] [address] [place] [address] 84307- 5147 Apr, Post-traumatic stress disorder, chronic F43.12 ; Bipolar affective, depress, mod F31.32 ; Borderline personality disorder F60.3 ; Other termite helper (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.899 and Cannabis use disorder, mild, abuse F12.10 [facility] [address] 45436- 9877 Apr, Depression F32.9 and Borderline personality disorder F60.3 [place] [id number] [place] [address] 93318- 4920 Apr, Depression F32.9 and Borderline personality disorder F60.3 [place] [id number] [place] [address] 84864- 3839 Mar, Depression F32.9 and Borderline personality disorder F60.3 [place] [address] 22972- 3300 February, Depression F32.9 and Borderline personality disorder F60.3 [place] [id number] [place] [address] 67914- 2484 February, Back pain M54.9 [facility] [id number] [place] [address] 08947- 6702 February, Depression F32.9 and Borderline personality disorder F60.3 [place] [id number] [place] [address] 31004- 7694 February, Post-traumatic stress disorder, chronic F43.12 ; Borderline personality disorder F60.3 and Bipolar affective disorder, depressed, mild F31.31 [facility] [id number] [place] [address] 85212- 0989 February, [place] [id number] [place] [address] 80483- 6610 February, Depression F32.9 and Borderline personality disorder F60.3 [place] [address] [address] 58[address] Jan, [facility] [id number] [place] [address] 13445- 5758 Jan, Depression F32.9 and Borderline personality disorder F60.3 [facility] [id number] [place] [address] 94369- 3443 Jan, Acute lateral meniscus tear of right knee, initial encounter S83.281A [facility] [id number] [place] [address] 58012- 7393 Jan, Depression F32.9 and Borderline personality disorder F60.3 [place] [id number] [place] [address] 45218- 6652 Dec, Depression F32.9 and Borderline personality disorder F60.3 [place] [id number] [place] [address] 21766- 9029 Dec, Depression F32.9 and Borderline personality disorder F60.3 [place] [address] [place] [address] 17802- 8760 Nov, Hyperlipidemia E78.5 ; Knee locking, right M23.91 and Carpal tunnel syndrome of right wrist G56.01 [place] [address] [place] [address] 39846- 1304 23 Nov, 2016 Bipolar affective, depress, mod F31.32 ; Post-traumatic stress disorder, chronic F43.12 and Borderline personality disorder F60.3 [place] [address] [place] [address] 67284- 0595 Nov, Depression F32.9 and Borderline personality disorder F60.3 [place] [id number] [place] [address] 25203- 4047 Oct, Post-traumatic stress disorder, chronic F43.12 and Other termite helper (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.899 [place] [address] [place] [address] 29687- 2968 Oct, Nondisplaced fracture of distal end of right radius with routine healing, subsequent encounter S52.501D [place] [address] 59061- 8237 Sep, [place] [id number] [place] [address] 51585- 8780 Aug, Right wrist fracture, closed, initial encounter S62.101A [place] [address] 81726- 8772 Aug, [place] [address] 60319- 2914 Jul, Back pain M54.9 and Hyperlipidemia E78.5 [place] [address] 11479- 4673 Jul, Post-traumatic stress disorder, chronic F43.12 and Other termite helper (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.899 [place] [address] 68660- 1813 Apr, Bipolar affective, depress, mod F31.32 ; Post-traumatic stress disorder, chronic F43.12 and Other nursing home (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.899 [place] [id number] [place] [address] 31840- 3385 Mar, [place] [address] 48957- 8026 Jan, Post-traumatic stress disorder, chronic F43.12 and Depression F32.9 [place] [id number] [place] [address] 59127- 5982 Dec, [place] [address] 39238- 1213 Nov, Shoulder pain, left M25.512 and Bronchitis J40 [place] [address] 00339- 7202 Sep, Hyperlipidemia E78.5 [facility] [address] [place] [address] 76802- 5332 Sep, Hyperlipidemia E78.5 [facility] [id number] [place] [address] 37717- 1305 Sep, [facility] [id number] [place] [address] 13878- 5142 Sep, Back pain M54.9 ; CAD (coronary artery disease) I25.10 and Depression F32.9 [facility] [id number] [place] [address] 54381- 2448 Sep, URI (upper respiratory infection) J06.9 ; Nausea & vomiting R11.2 and Tobacco abuse Z72.0 [facility] [id number] [place] [address] 83288- 8523 Mar, Posttraumatic stress disorder 309.81 ; Major depressive disorder, recurrent episode, in partial remission 296.35 ; Nightmares associated with chronic post-traumatic stress disorder 307.47 ; Thoracic or lumbosacral neuritis or radiculitis, unspecified 724.4 ; Borderline personality disorder 301.83 and High risk medication use V58.69 [facility] [id number] [place] [address] 61245- 9815 14 Jan, 2015 [facility] [address] [place] [address] 58522- 2325 Jan, [facility] [id number] [place] [address] 36044- 5764 Dec, [facility] [id number] [place] [address] 19953- 6112 Dec, [facility] [id number] [place] [address] 53660- 6317 Sep, [facility] [id number] [place] [address] 91161- 9363 Sep, [facility] [address] [place] [address]- 3357 Sep, [facility] [place] [facility] [address] [id number] [place] 1256 Sep, [facility] [place] [facility] [address] [id number] [place] 4660 Sep, [facility] [place] [facility] [address] [id number] [place] [address]- 3532 Jul, [facility] [place] [facility] [address] [id number] [place] [address]- 3688 Jul, [facility] [place] [facility] [address] [id number] [place] [address]- 4508 Jul, [facility] [place] [facility] [address] [id number] [place] [address]- 4552 Jul, [facility] [place] [facility] [address] [id number] [place] [address]- 1353 Jul, [facility] [place] [facility] [address] [id number] [place] [address]- 1879 Jul, [facility] [place] [facility] [address] [id number] [place] [address]- 7442 Jul, [facility] [place] [facility] [address] [id number] [place] [address]- 1841 Jul, [facility] [place] [facility] [address] [id number] [place] [address]- 1741 May, [facility] [place] [facility] [address] [id number] [place] [address]- 1308 May, [facility] [place] [facility] [address] [id number] [place] [address]- 3171 May, [facility] [place] [facility] [address] [id number] [place] [address]- 7581 May, [facility] [place] [facility] [address] [id number] [place] [address]- 8186 May, [facility] [place] [facility] [address] [id number] [place] [address]- 3205 May, [facility] [place] [facility] [address] [id number] [place] [address]- 2576 Mar, [facility] [place] [facility] [address] [id number] [place] [address]- 2746 Mar, [facility] [place] [facility] [address] [id number] [place] [address]- 4543 February, [facility] [place] [facility] [address] [id number] [place] [address]- 3266 February, [facility] [place] [facility] [address] [id number] [place] [address]- 8159 February, [facility] [place] [facility] [address] [id number] [place] [address]- 6272 February, [facility] [place] [facility] [address] [id number] [place] [address]- 7403 February, [facility] [place] [facility] [address] [id number] [place] [address]- 3748 February, [facility] [place] [facility] [address] [id number] [place] [address]- 1856 February, [facility] [place] [facility] [address] [id number] [place] [address]- 1854 Jan, [facility] [place] [facility] [address] [id number] [place] [address]- 1241 Jan, [facility] [place] [facility] [address] [id number] [place] [address]- 9291 Jan, [facility] [place] [facility] [address] [id number] [place] [address]- 8835 Jan, [facility] [place] [facility] [address] [id number] [place] [address]- 9037 Dec, [facility] [place] [facility] [address] [id number] [place] [address]- 8416 14 Dec, 2013 [facility] [place] [facility] [address] [id number] [place] [address]- 6171 14 Dec, 2013 [facility] [place] [facility] [address] [id number] [place] [address]- 6834 Dec, [facility] [place] [facility] [address] [id number] [place] [address]- 0470 Nov, [facility] [place] [facility] [address] [id number] [place] [address]- 2425 Nov, [facility] [place] [facility] [address] [id number] [place] [address]- 0591 Nov, [facility] [place] [facility] [address] [id number] [place] [address]- 1284 Nov, [facility] [place] [facility] [address] [id number] [place] [address]- 2792 Nov, [facility] [place] [facility] [address] [id number] [place] [address]- 3065 Nov, [facility] [place] [facility] [address] [id number] [place] [address]- 6951 Nov, [facility] [place] [facility] [address] [facility] [id number] [place] [address]- 4226 Nov, [facility] [place] [facility] [address] [id number] [place] [address]- 2440 Oct, [facility] [place] [facility] [address] [id number] [place] [address]- 1995 Oct, [facility] [place] [facility] [address] [id number] [place] [address]- 8429 Oct, [facility] [place] [facility] [address] [id number] [place] [address]- 3341 Oct, [facility] [place] [facility] [address] [facility] [id number] [place] [address]- 2441 Oct, [facility] [place] [facility] [address] [id number] [place] [address]- 5944 Oct, [facility] [place] [facility] [address] [id number] [place] [address]- 1867 Oct, [facility] [place] [facility] [address] [id number] [place] [address]- 3204 Oct, [facility] [place] [facility] [address] [id number] [place] [address]- 2740 Oct, [facility] [place] [facility] [address] [id number] [place] [address]- 7624 Oct, [facility] [place] [facility] [address] [id number] [place] [address]- 1799 Oct, [facility] [place] [facility] [address] [id number] [place] [address]- 4621 Aug, [facility] [place] [facility] [address] [id number] [place] [address]- 9646 Aug, [facility] [place] [facility] [address] [id number] [place] [address]- 6465 Jul, [facility] [place] [facility] [address] [id number] [place] [address]- 6217 Jul, [facility] [place] [facility] [address] [id number] [place] [address]- 8066 Jul, [facility] [place] [facility] [address] [id number] [place] [address]- 7875 Jul, [facility] [place] [facility] [address] [id number] [place] [address]- 3671 Jun, [facility] [place] [facility] [address] [id number] [place] [address]- 5803 19 Jun, 2013 [facility] [place] [facility] [address] [id number] [place] [address]- 8033 Jan, [facility] [place] [facility] [address] [id number] [place] [address]- 3019 Oct, [facility] [place] [facility] [address] [id number] [place] [address]- 3821 Sep, [facility] [place] [facility] [address] [id number] [place] [address]- 2816 Sep, [facility] [place] [facility] [address] [facility] [id number] [place] [address]- 6616 Sep, [facility] [place] [facility] [address] [id number] [place] [address]- 4891 Sep, [facility] [place] [facility] [address] [id number] [place] [address]- 4199 Aug, [facility] [place] [facility] [address] [id number] [place] [address]- 3910 Aug, [facility] [place] [facility] [address] [facility] [id number] [place] [address]- 2715 Aug, [facility] [place] [facility] [address] [id number] [place] [address]- 9230 Aug, [facility] [place] [facility] [address] [id number] [place] [address]- 4796 Jul, [facility] [place] [facility] [address] [id number] [place] [address]- 3342 Jul, [facility] [place] [facility] [address] [id number] [address]- 6264 Jul, [facility] [place] [facility] [address] [id number] [place] [address]- 7822 Jul, [facility] [place] [facility] [address] [id number] [place] [address]- 6925 Jul, [facility] [place] [facility] [address] [facility] [id number] [place] [address]- 4594 Jun, [facility] [place] [facility] [address] [facility] [id number] [place] [address]- 2546 Jun, [facility] [place] [facility] [address] [id number] [place] [address]- 6546 Jun, [facility] [address] [id number] [place] [address]- 4249 May, [facility] [address] [id number] [place] [address] 2546 May, [facility] [address] [id number] [place] [address]- 7962 Apr, [facility] [address] [id number] [place] [address]- 7324 Apr, [facility] [address] [id number] [place] [address]- 7560 Apr, [facility] [address] [id number] [place] [address] 2546 Apr, [facility] [address] [id number] [place] [address]- 0628 Mar, [facility] [address] [id number] [place] [address]- 7189 Mar, [facility] [address] [id number] [place] [address]- 0665 Mar, [facility] [address] [id number] [place] [address]- 4125 February, [facility] [address] [id number] [place] [address]- 2216 February, [facility] [address] [id number] [place] [address]- 9066 February, [facility] [address] [id number] [place] [address]- 7536 February, [facility] [address] [id number] [place] [address] February, [facility] [address] [id number] [place] [address] Jan, [facility] [place] [facility] [address] [id number] [place] [address] 24 Jan, 2012 [facility] [place] [facility] [address] [id number] [place] [address] Jan, [facility] [place] [facility] [address] [id number] [place] [address] Dec, [facility] [place] [facility] [address] [id number] [place] [address] Dec, [facility] [address] [id number] [place] [address] Dec, [facility] [place] [facility] [address] [id number] [place] [address] 29 Nov, 2011 [facility] [place] [facility] [address] [id number] [place] [address] 16 Nov, 2011 [facility] [address] [id number] [place] [address] Nov, [facility] [address] [id number] [place] [address] Nov, [facility] [place] [facility] [address] [facility] [id number] [place] [address] Oct, [facility] [place] [facility] [address] [id number] [place] [address] Oct, [facility] [place] [facility] [address] [id number] [address] Sep, [facility] [place] [facility] [address] [id number] [place] [address] Sep, [facility] [place] [facility] [address] [id number] [place] [address] 14 Sep, 2011 [facility] [place] [facility] [address] [facility] [id number] [place] [address] 05 Sep, 2011 [facility] [place] [facility] [address] [id number] [place] [address] Aug, [facility] [place] [facility] [address] [id number] [place] [address] Aug, [facility] [place] [facility] [address] [id number] [place] [address] Aug, [facility] [place] [facility] [address] [id number] [place] [address] Jul, [facility] [place] [facility] [address] [id number] [place] [address] Jul, [facility] [place] [facility] [address] [id number] [place] [address] Jul, [facility] [place] [facility] [address] [id number] [place] [address] May, [facility] [place] [facility] [address] [id number] [place] [address] February, [facility] [place] [facility] [address] [id number] [place] [address] Nov, [facility] [place] [facility] [address] [id number] [place] [address] Oct, [facility] [place] [facility] [address] [id number] [place] [address] Oct, [facility] [place] [facility] [address] [id number] [place] [address] Sep, [facility] [place] [facility] [address] [id number] [place] [address] 17 Sep, 2010 [facility] [place] [facility] [address] [id number] [place] [address] Sep, [facility] [place] [facility] [address] [id number] [place] [address] 16 Sep, 2010 [facility] [place] [facility] [address] [id number] [place] [address] 10 Sep, 2010 [facility] [place] [facility] [address] [id number] [place] [address] 10 Sep, 2010 [facility] [place] [facility] [address] [id number] [place] [address] 29 Aug, 2010 [facility] [place] [facility] [address] [address] [id number] [place] [address] 23 Aug, 2010 [facility] [place] [facility] [address] [id number] [place] [address], [place] [address] 18 Aug, 2010 [facility] [place] [facility] [address] [id number] [place] [address] 17 Aug, 2010 [facility] [place] [facility] [address] [id number] [place] [address] 16 Aug, 2010 [facility] [place] [facility] [address] [id number] [place] [address] Jul, [facility] [place] [facility] [address] [id number] [place] [address] 16 Jun, 2010 [facility] [place] [facility] [address] [id number] [place] [address] February, [facility] [place] [facility] [address] [id number] [place] [address] Oct, [facility] [place] [facility] [address] [id number] [place] [address] Sep, [facility] [place] [facility] [address] [id number] [place] [address] Aug, [facility] [place] [facility] [address] [id number] [place] [address] Aug, [facility] [place] [facility] [address] [id number] [place] [address] Aug, [facility] [place] [facility] [address] [id number] [place] [address] 20 Jul, 2009 [facility] [place] [facility] [address] [id number] [address] 15 Jul, 2009 [facility] [address] [facility] [id number] [place] [address] 15 Jul, 2009 [facility] [address] [id number] [place] [address] 14 Jun, 2009 [facility] [address] [facility] [id number] [place] [address] 10 Jun, 2009 [facility] [address] [facility] [id number] [place] [address] 16 Mar, 2009 [facility] [address] [facility] [id number] [place] [address] Jan, [facility] [address] [facility] [id number] [place] [address] 05 Aug, 2008 IMMUNIZATIONS No Known Immunizations SOCIAL HISTORY Never Assessed REASON FOR VISIT intake - Maxwell COVARRUBIAS PLAN OF CARE Activity Details Follow Up 3 Months Reason: f/u VITAL SIGNS Height 67 in 2017-05-21 Weight 149.0 lbs 2017-05-21 Heart Rate 88 bpm 2017-05-21 Respiratory Rate 18 2017-05-21 BMI 23.33 kg/m2 2017-05-21 Blood pressure systolic 108 mmHg 2017-05-21 Blood pressure diastolic 76 mmHg 2017-05-21 MEDICATIONS Medication Instructions Dosage Frequency Start Date End Date Duration Status Ibuprofen 800 MG Orally Three times a day 1 tablet 8h 29 Aug, 2016 Active Pristiq 100 MG TAKE ONE TABLET BY MOUTH ONCE DAILY Active Pravastatin Sodium 80 MG Orally Once a day 1 tablet 24h 30 days Active QUEtiapine Fumarate ER 300 MG Orally Once a day 1 tablet every nicolas ( 200mg tab) 24h Nov, Active Nitrostat 0.4 MG Sublingual 2 5 min prn 1 Active Lyrica 100 MG TAKE ONE CAPSULE BY MOUTH FOUR TIMES DAILY 30 Active QUEtiapine Fumarate ER 200 MG Orally Once a day 1 tablet every nicolas ( 300mg tab) 24h Nov, Active Pravastatin Sodium 40 MG TAKE ONE [...]
--- OUTSIDE RECORDS SUMMARY | 2018-11-13 11:54 | XMS REPORT ---
Author Author ELIECER ROMAN Organization [facility] Address [address] [place] [address] Care Team Providers Care Instructor [employer] Name Role Phone ELIECER ROMAN Unavailable PROBLEMS Type Condition ICD9-CM Code [id number] Code Onset Dates Condition Status SNOMED Code Problem Borderline personality disorder F60.3 Active 25728508 Problem Post-traumatic stress disorder, chronic F43.12 Active 26690952 Problem Carpal tunnel syndrome of right wrist G56.01 Active [id number] Problem PAD (peripheral artery disease) I73.9 Active 093985272 Problem Anxiety F41.9 Active 67321147 Problem Cannabis use disorder, mild, abuse F12.10 Active 42767421 Problem Bipolar affective, depress, mod F31.32 Active 997406583 Problem Fibromyalgia M79.7 Active 052004201 Problem Cervical radiculopathy M54.12 Active 27209108 Problem CAD (coronary artery disease) I25.10 Active 51020599 Problem Depression F32.9 Active 97085240 Problem Back pain M54.9 Active 725473141 Problem Tobacco abuse Z72.0 Active 96150693 Problem Hyperlipidemia E78.5 Active 92451538 ALLERGIES Substance Reaction Event Type Date Status Aspir-81 nausea Drug Allergy Jul, Active IV Dye nausea Non Drug Allergy Jul, Active ENCOUNTERS Encounter Location Date Diagnosis [facility] [address] [facility] [id number] [address] Apr, [facility] [address] [id number], [place] [address] February, [facility] [address], [place] [address] February, Fibromyalgia M79.7 [facility] [address] [id number], [place] [address] Jan, Post-traumatic stress disorder, chronic F43.12 ; Bipolar affective, depress, mod F31.32 ; Borderline personality disorder F60.3 and Cannabis use disorder, mild, abuse F12.10 [id number] [place] [address] 50204- 7169 Jan, [address] [id number] [place] [address] 02962- 3864 Dec, Bipolar affective, depress, mod F31.32 ; Post-traumatic stress disorder, chronic F43.12 ; Borderline personality disorder F60.3 and Cannabis use disorder, mild, abuse F12.[address] [address]184- [address]127 Dec, Hoarseness R49.0 ; Bronchitis J40 ; PAD (peripheral artery disease) I73.9 and Tobacco abuse Z72.[address] 29479- 7550 Nov, Bipolar affective, depress, mod F31.32 ; Post-traumatic stress disorder, chronic F43.12 ; Borderline personality disorder F60.3 and Cannabis use disorder, mild, abuse F12.10 [address] [place] [id number] [place] [address] 41582- 5052 Oct, Post-traumatic stress disorder, chronic F43.12 ; Bipolar affective, depress, mod F31.32 ; Borderline personality disorder F60.3 and Cannabis use disorder, mild, abuse F12.10 [place] [id number] [place] [address] 74815- 4210 Oct, Bipolar affective, depress, mod F31.32 ; Post-traumatic stress disorder, chronic F43.12 and Borderline personality disorder F60.3 [id number] [place] [address] 75090- 5029 Sep, Anxiety F41.9 [id number] [place] [address] 73902- 6564 Aug, Bipolar affective, depress, mod F31.32 ; Post-traumatic stress disorder, chronic F43.12 and Borderline personality disorder F60.3 [place] [place] [id number] [place] [address] 82156- 4764 Aug, Bipolar affective, depress, mod F31.32 ; Post-traumatic stress disorder, chronic F43.12 and Borderline personality disorder F60.3 [place] [id number] [place] [address] 81357- 6050 Aug, Fibromyalgia M79.7 ; Back pain M54.9 and Cervical radiculopathy M54.12 [place] [id number] [place] [address] 95046- 0174 Aug, Bipolar affective, depress, mod F31.32 and Post-traumatic stress disorder, chronic F43.12 [place] [id number] [place] [address] 91872- 5218 Jul, Depression F32.9 ; Borderline personality disorder F60.3 and Bipolar affective, depress, mod F31.32 [place] [id number] [place] [address] 50935- 6001 Jul, Post-traumatic stress disorder, chronic F43.12 ; Bipolar affective, depress, mod F31.32 ; Borderline personality disorder F60.3 and Cannabis use disorder, mild, abuse F12.10 [place] [id number] [place] [address] 55598- 1046 Jul, Other senior care (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.899 [place] [id number] [place] [address] 59642- 8389 Jun, [place] [id number] [place] [address] 31381- 7771 Jun, Depression F32.9 ; Borderline personality disorder F60.3 and Bipolar affective, depress, mod F31.32 [place] [id number] [place] [address] 16631- 3459 Jun, Depression F32.9 and Borderline personality disorder F60.3 [place] [id number] [place] [address] 63832- 3747 May, Post-traumatic stress disorder, chronic F43.12 [place] [id number] [place] [address] 15663- 6136 May, Depression F32.9 and Borderline personality disorder F60.3 [place] [id number] [place] [address] 67597- 2196 Apr, Post-traumatic stress disorder, chronic F43.12 ; Bipolar affective, depress, mod F31.32 ; Borderline personality disorder F60.3 ; 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 and Cannabis use disorder, mild, abuse F12.10 [place] [id number] [place] [address] 69403- 1527 Apr, Depression F32.9 and Borderline personality disorder F60.3 [place] [id number] [place] [address] 61200- 1922 Apr, Depression F32.9 and Borderline personality disorder F60.3 [place] [id number] [place] [address] 51928- 8475 Mar, Depression F32.9 and Borderline personality disorder F60.3 [place] [id number] [place] [address] 25224- 9555 February, Depression F32.9 and Borderline personality disorder F60.3 [place] [id number] [place] [address] 37108- 3970 February, Back pain M54.9 [place] [id number] [place] [address] 47022- 1557 February, Depression F32.9 and Borderline personality disorder F60.3 [place] [id number] [place] [address] 89259- 6156 February, Post-traumatic stress disorder, chronic F43.12 ; Borderline personality disorder F60.3 and Bipolar affective disorder, depressed, mild F31.31 [place] [id number] [place] [address] 35477- 1931 February, [place] [id number] [place] [address] 85948- 6313 February, Depression F32.9 and Borderline personality disorder F60.3 [place] [id number] [place] [address] 34765- 1863 Jan, [place] [id number] [place] [address] 59013- 1493 Jan, Depression F32.9 and Borderline personality disorder F60.3 [place] [address] 545439- 5225 Jan, Acute lateral meniscus tear of right knee, initial encounter S83.281A [place] [id number] [place] [address] 61553- 4929 Jan, Depression F32.9 and Borderline personality disorder F60.3 [place] [id number] [place] [address] 45859- 7188 Dec, Depression F32.9 and Borderline personality disorder F60.3 [place] [id number] [place] [address] 69347- 4958 Dec, Depression F32.9 and Borderline personality disorder F60.3 [place] [id number] [place] [address] 33715- 3799 Nov, Hyperlipidemia E78.5 ; Knee locking, right M23.91 and Carpal tunnel syndrome of right wrist G56.01 [place] [id number] [place] [address] 95992- 4465 23 Nov, 2016 Bipolar affective, depress, mod F31.32 ; Post-traumatic stress disorder, chronic F43.12 and Borderline personality disorder F60.3 [place] [id number] [place] [address] 64877- 6756 16 Nov, 2016 Depression F32.9 and Borderline personality disorder F60.3 [facility] [address], [place] [address]- 0864 Oct, Post-traumatic stress disorder, chronic F43.12 and Other senior care (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.899 [facility] [id number] [place] [address] 87468- 8587 Oct, Nondisplaced fracture of distal end of right radius with routine healing, subsequent encounter S52.501D [facility] [id number] [place] [address] 65317- 3972 Sep, [facility] [id number] [place] [address] 58115- 9836 Aug, Right wrist fracture, closed, initial encounter S62.101A [place] [id number] [place] [address] 78257- 5168 Aug, [facility] [id number] [place] [address] 63743- 2177 Jul, Back pain M54.9 and Hyperlipidemia E78.5 [place] [id number] [place] [address] 53738- 7518 Jul, Post-traumatic stress disorder, chronic F43.12 and Other senior care (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.899 [facility] [id number] [place] [address] 88352- 4390 Apr, Bipolar affective, depress, mod F31.32 ; Post-traumatic stress disorder, chronic F43.12 and Other senior care (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.899 [facility] [address], [place] [address]- 4811 Mar, [facility] [id number] [place] [address] 90136- 4156 Jan, Post-traumatic stress disorder, chronic F43.12 and Depression F32.9 [facility] [id number] [place] [address] 29180- 6758 Dec, [facility] [id number] [place] [address] 52990- 1128 Nov, Shoulder pain, left M25.512 and Bronchitis J40 [facility] [id number] [place] [address] 80281- 5242 Sep, Hyperlipidemia E78.5 [place] [address] 05799- 0063 Sep, Hyperlipidemia E78.5 [facility] [address] 40386- 0168 Sep, [place] [address] 16097- 6648 Sep, Back pain M54.9 ; CAD (coronary artery disease) I25.10 and Depression F32.[address] 11299- 9107 Sep, URI (upper respiratory infection) J06.9 ; Nausea & vomiting R11.2 and Tobacco abuse Z72.[address] 03686- 1996 Mar, Posttraumatic stress disorder 309.81 ; Major depressive disorder, recurrent episode, in partial remission 296.35 ; Nightmares associated with chronic post-traumatic stress disorder 307.47 ; Thoracic or lumbosacral neuritis or radiculitis, unspecified 724.4 ; Borderline personality disorder 301.83 and High risk medication use V58.69 [place] [id number] [place] [address] 60280- 0208 Jan, [place] [address] 02850- 5221 Jan, [facility] [id number] [place] [address] 03879- 4363 Dec, [place] [id number] [place] [address] 75739- 9314 Dec, [facility] [place] [facility] [address] [id number] [place] [address]- 5548 Sep, [facility] [place] [facility] [address] [id number] [place] Sep, [facility] [place] [facility] [address] [id number] [place] [address]- 0334 Sep, [facility] [place] [facility] [address] [id number] [place] [address]- 8819 Sep, [facility] [place] [facility] [address] [id number] [place] [address]- 7920 Sep, [facility] [place] [facility] [address] [id number] [place] [address]- 7407 Jul, [facility] [place] [facility] [address] [id number] [place] [address]- 1135 Jul, [facility] [place] [facility] [address] [id number] [place] [address]- 0909 Jul, [facility] [place] [facility] [address] [id number] [place] [address]- 9705 Jul, [facility] [place] [facility] [address] [id number] [place] [address]- 8084 Jul, [facility] [place] [facility] [address] [id number] [place] [address]- 0137 Jul, [facility] [place] [facility] [address] [id number] [place] [address]- 7665 Jul, [facility] [place] [facility] [address] [id number] [place] [address]- 8956 Jul, [facility] [place] [facility] [address] [id number] [place] [address]- 9601 May, [facility] [place] [facility] [address] [id number] [place] [address]- 9327 May, [facility] [place] [facility] [address] [id number] [place] [address]- 7102 May, [facility] [place] [facility] [address] [id number] [place] [address]- 5040 May, [facility] [place] [facility] [address] [id number] [place] [address]- 7308 May, [facility] [place] [facility] [address] [id number] [place] [address]- 6415 May, [facility] [place] [facility] [address] [id number] [place] [address]- 2680 Mar, [facility] [place] [facility] [address] [id number] [place] [address]- 1188 Mar, [facility] [place] [facility] [address] [id number] [place] [address]- 5149 February, [facility] [place] [facility] [address] [id number] [place] [address]- 5124 February, [facility] [place] [facility] [address] [id number] [place] [address]- 1664 February, [facility] [place] [facility] [address] [id number] [place] [address]- 7473 February, [facility] [place] [facility] [address] [id number] [place] [address]- 4326 February, [facility] [place] [facility] [address] [id number] [place] [address]- 7299 February, [facility] [place] [facility] [address] [id number] [place] [address]- 8411 February, [facility] [place] [facility] [address] [id number] [place] [address]- 3642 Jan, [facility] [place] [facility] [address] [id number] [place] [address]- 8592 Jan, [facility] [place] [facility] [address] [id number] [place] [address]- 0491 Jan, [facility] [place] [facility] [address] [id number] [place] [address]- 0926 Jan, [facility] [place] [facility] [address] [id number] [place] [address]- 5544 24 Dec, 2013 [facility] [place] [facility] [address] [id number] [place] [address]- 8232 Dec, [facility] [place] [facility] [address] [id number] [place] [address]- 2957 Dec, [facility] [place] [facility] [address] [id number] [place] [address]- 1526 Dec, [facility] [place] [facility] [address] [id number] [place] [address]- 2202 Nov, [facility] [place] [facility] [address] [id number] [place] [address]- 8060 Nov, [facility] [place] [facility] [address] [id number] [place] [address]- 7014 Nov, [facility] [place] [facility] [address] [id number] [place] [address]- 3629 Nov, [facility] [place] [facility] [address] [id number] [place] [address]- 2474 Nov, [facility] [place] [facility] [address] [id number] [place] [address]- 6798 Nov, [facility] [place] [facility] [address] [id number] [place] [address]- 3457 Nov, [facility] [place] [facility] [address] [id number] [place] [address]- 8553 Nov, [facility] [place] [facility] [address] [id number] [place] [address]- 4068 Oct, [facility] [place] [facility] [address] [id number] [place] [address]- 3011 Oct, [facility] [place] [facility] [address] [id number] [place] [address]- 8645 Oct, [facility] [place] [facility] [address] [id number] [place] [address]- 1562 Oct, [facility] [place] [facility] [address] [id number] [place] [address]- 7767 Oct, [facility] [place] [facility] [address] [id number] [place] [address]- 0146 Oct, [facility] [place] [facility] [address] [id number] [place] [address]- 4267 Oct, [facility] [place] [facility] [address] [id number] [place] [address]- 4729 Oct, [facility] [place] [facility] [address] [id number] [place] [address]- 5304 Oct, [facility] [place] [facility] [address] [id number] [place] [address]- 4891 Oct, [facility] [place] [facility] [address] [id number] [place] [address]- 2308 Oct, [facility] [place] [facility] [address] [id number] [place] [address]- 1300 Aug, [facility] [place] [facility] [address] [id number] [place] [address]- 9582 Aug, [facility] [place] [facility] [address] [id number], [place] [address]- 0716 Jul, [facility] [place] [facility] [address] [id number], [place] [address]- 0813 Jul, [facility] [place] [facility] [address] [id number] [place] [address]- 7761 Jul, [facility] [place] [facility] [address] [id number] [place] [address]- 2602 Jul, [facility] [place] [facility] [address] [id number] [place] [address]- 6578 Jun, [facility] [place] [facility] [address] [id number] [place] [address]- 9333 Jun, [facility] [address] [id number] [place] [address]- 6184 Jan, [facility] [place] [facility] [address] [id number] [place] [address]- 5036 Oct, [facility] [address] [id number] [place] [address]- 8427 Sep, [facility] [place] [facility] [address] [id number] [place] [address]- 3080 Sep, [facility] [address] [id number] [place] [address], [place] [address]- 2801 Sep, [facility] [address] [id number] [place] [address]- 0775 Sep, [facility] [place] [facility] [address] [id number] [place] [address]- 9643 Aug, [facility] [address] [id number] [place] [address]- 8026 Aug, [facility] [place] [facility] [address] [id number] [place] [address]- 1408 Aug, [facility] [address] [facility] [id number] [place] [address]- 0043 Aug, [facility] [place] [facility] [address] [id number] [place] [address]- 3048 Jul, [facility] [place] [facility] [address] [id number] [place] [address]- 3925 Jul, [facility] [place] [facility] [address] [id number] [place] [address]- 8454 Jul, [facility] [place] [facility] [address] [id number] [place] [address]- 1756 Jul, [facility] [place] [facility] [address] [id number] [place] [address]- 4461 Jul, [facility] [place] [facility] [address] [id number] [place] [address]- 4850 Jun, [facility] [place] [facility] [address] [id number] [place] [address]- 4646 Jun, [facility] [place] [facility] [address] [id number] [place] [address]- 6876 Jun, [facility] [place] [facility] [address] [id number] [place] [address]- 2100 May, [facility] [place] [facility] [address] [id number] [place] [address]- 9899 May, [facility] [place] [facility] [address] [id number] [place] [address]- 4187 Apr, [facility] [place] [facility] [address] [id number] [place] [address]- 1998 Apr, [facility] [place] [facility] [address] [id number] [place] [address]- 5759 Apr, [facility] [place] [facility] [address] [id number] [place] [address]- 7344 Apr, [facility] [place] [facility] [address] [id number] [place] [address]- 5907 Mar, [facility] [place] [facility] [address] [id number] [place] [address]- 2467 Mar, [facility] [place] [facility] [address] [id number], [place] [address]- 8806 Mar, [facility] [place] [facility] [address] [id number] [place] [address]- 4968 February, [facility] [place] [facility] [address] [id number] [place] [address]- 3406 February, [facility] [place] [facility] [address] [id number] [place] [address]- 5248 February, [facility] [place] [facility] [address] [id number], [place] [address]- 8682 February, [facility] [address] [id number] [place] [address]- 3046 February, [facility] [place] [facility] [address] [id number] [place] [address]- 9396 Jan, [facility] [place] [facility] [address] [facility] [id number] [place] [address]- 5126 Jan, [facility] [place] [facility] [address] [id number] [place] [address]- 2258 Jan, [facility] [place] [facility] [address] [id number] [place] [address]- 1366 Dec, [facility] [place] [facility] [address] [facility] [id number] [place] [address] Dec, [facility] [id number] [place] [address] Dec, [facility] [place] [facility] [address] [id number] [place] [address] Nov, [facility] [place] [facility] [address] [id number] [place] [address] Nov, [facility] [place] [facility] [address] [id number] [place] [address] Nov, [facility] [place] [facility] [id number] [place] [address] Nov, [facility] [place] [facility] [address] [facility] [id number] [place] [address] Oct, [facility] [place] [facility] [address] [id number] [place] [address] Oct, [facility] [place] [facility] [address] [facility] [id number] [place] [address] Sep, [facility] [place] [facility] [address] [facility] [id number] [place] [address] Sep, [facility] [place] [facility] [address] [id number] [place] [address] 14 Sep, 2011 [facility] [place] [facility] [address] [id number] [place] [address]- [address] 05 Sep, 2011 [facility] [place] [facility] [address] [id number] [place] [address] Aug, [facility] [place] [facility] [address] [id number] [place] [address] Aug, [facility] [place] [facility] [address] [id number] [place] [address] Aug, [facility] [place] [facility] [address] [id number] [place] [address] Jul, [facility] [place] [facility] [address] [id number] [place] [address]- [address] Jul, [facility] [place] [facility] [address] [id number] [place] [address]- [address] Jul, [facility] [place] [facility] [address] [id number] [place] [address] May, [facility] [place] [facility] [address] [id number] [place] [address] February, [facility] [place] [facility] [address] [id number] [place] [address] Nov, [facility] [place] [facility] [address] [id number] [place] [address] Oct, [facility] [place] [facility] [address] [id number] [place] [address] Oct, [facility] [place] [facility] [address] [id number] [place] [address] Sep, [facility] [place] [facility] [address] [id number] [place] [address] Sep, [facility] [place] [facility] [address] [id number], [place] [address] 17 Sep, 2010 [facility] [place] [facility] [address] [id number] [place] [address] 16 Sep, 2010 [facility] [place] [facility] [address] [id number] [place] [address] 9686 10 Sep, 2010 [facility] [place] [facility] [address] [id number] [place] [address] 10 Sep, 2010 [facility] [place] [facility] [address] [id number] [place] [address]47 29 Aug, 2010 [facility] [place] [facility] [address] [id number] [place] [address] 23 Aug, 2010 [facility] [place] [facility] [address] [id number] [place] [address] 18 Aug, 2010 [facility] [place] [facility] [address] [id number] [place] [address]- [address] 17 Aug, 2010 [facility] [place] [facility] [address] [id number] [place] [address]- [address]25 16 Aug, 2010 [facility] [place] [facility] [address] [id number], [place] [address] 25 Jul, 2010 [facility] [place] [facility] [address] [id number] [place] [address] 16 Jun, 2010 [facility] [place] [facility] [address] [id number], [place] [address] February, [facility] [place] [facility] [address] [id number], [place] [address] Oct, [facility] [place] [facility] [address] [id number] [place] [address] Sep, [facility] [place] [facility] [address] [address] [id number] [place] [address] 24 Aug, 2009 [facility] [place] [facility] [address] [id number] [place] [address] Aug, [facility] [place] [facility] [id number] [address] Aug, [facility] [address] [address] Jul, [facility] [address] [place] [address] Jul, [facility] [id number] [address] Jul, [facility] [id number] [address] Jun, [facility] [id number] [place] [address] Jun, [facility] [address] [address] Mar, [facility] [address] [address] Jan, [facility] [address] [address] Aug, IMMUNIZATIONS No Known Immunizations SOCIAL HISTORY Never Assessed REASON FOR VISIT f/u PLAN OF CARE Activity Details Follow Up 3 Months Reason: f/u VITAL SIGNS Height 67 in 2017-08-06 Weight 158.1 lbs 2017-08-06 Heart Rate 116 bpm 2017-08-06 Respiratory Rate 22 2017-08-06 BMI 24.76 kg/m2 2017-08-06 Blood pressure systolic 116 mmHg 2017-08-06 Blood pressure diastolic 66 mmHg 2017-08-06 MEDICATIONS Medication Instructions Dosage Frequency Start Date End Date Duration Status Pravastatin Sodium 80 MG Orally Once a day 1 tablet 24h 30 days Active Ibuprofen 800 MG Orally Three times a day 1 tablet 8h Aug, Active QUEtiapine Fumarate ER 300 MG Orally Once a day 1 tablet every nicolas ( 200mg tab) 24h Active Nitrostat 0.4 MG Sublingual 2 5 min prn 1 Active Lyrica 100 MG TAKE ONE CAPSULE BY MOUTH FOUR TIMES DAILY 30 Active QUEtiapine Fumarate ER 200 MG Orally Once a day 1 tablet every nicolas ( 300mg tab) 24h Active Pristiq 100 MG TAKE ONE TABLET BY MOUTH ONCE DAILY Active RESULTS No Results PROCEDURES No Known [...]
--- OUTSIDE RECORDS SUMMARY | 2018-11-13 11:54 | XMS REPORT ---
Author Author MATTHEW ACOSTA Organization [facility] Address [address] [place] [address] Care Team Providers Care Music Agent Name Role Phone MATTHEW ACOSTA Unavailable PROBLEMS Type Condition ICD9-CM Code TGR25-QO Code Onset Dates Condition Status SNOMED Code Problem Back pain M54.9 Active 159791930 Problem Borderline personality disorder F60.3 Active 21843258 Problem Hyperlipidemia E78.5 Active 66743844 Problem Tobacco abuse Z72.0 Active 69267962 Problem CAD (coronary artery disease) I25.10 Active 87987505 Problem Depression F32.9 Active 53068240 Problem Fibromyalgia M79.7 Active 838343727 Problem Cervical radiculopathy M54.12 Active 23738742 Problem Post-traumatic stress disorder, chronic F43.12 Active 02495712 Problem Carpal tunnel syndrome of right wrist G56.01 Active 711747121563835 Problem Cannabis use disorder, mild, abuse F12.10 Active 13989328 Problem Bipolar affective, depress, mod F31.32 Active 682500753 ALLERGIES No Information SOCIAL HISTORY Never Assessed PLAN OF CARE Activity Details Follow Up Every 2 weeks, 1/2 hour sessions Reason: VITAL SIGNS MEDICATIONS Unknown Medications RESULTS No Results PROCEDURES Procedure Date Ordered Result Body Site Psychotherapy, patient &/family, 30 minutes, established patient March 13, 2017 IMMUNIZATIONS No Known Immunizations MEDICAL (GENERAL) [...]
--- OUTSIDE RECORDS SUMMARY | 2018-11-13 11:55 | XMS REPORT ---
Author JOSE LUIS Steinberg Organization [employer] Address Unknown Phone Unavailable Care Team Providers Care Rehabilitation Director Name Role Phone JOSE LUIS BALLARD CP Unavailable Allergies, Adverse Reactions, Alerts Substance Reaction Event Type Aspir-81 nausea Drug Allergy IV Dye nausea Non Drug Allergy Problems Problem Type Condition Code Onset Dates Condition Status Assessment Nausea & vomiting R11.2 Active Problem Lumbago 724.2 Active Assessment URI (upper respiratory infection) J06.9 Active Assessment Tobacco abuse Z72.0 Active Problem Major depressive disorder, recurrent episode, in partial remission 296.35 Active Problem Nightmares associated with chronic post-traumatic stress disorder 307.47 Active Problem Tobacco abuse Z72.0 Active Problem Borderline personality disorder 301.83 Active Problem Posttraumatic stress disorder 309.81 Active Problem Coronary atherosclerosis of unspecified type of vessel, [place] or graft 414.00 Active Problem Other and unspecified hyperlipidemia 272.4 Active Medications Medication Code System Code Instructions Start Date End Date Status Dosage Seroquel XR [facility] [address]-73 400 MG TAKE ONE TABLET BY MOUTH ONCE PER DAY BETWEEN DINNER AND BEDTIME Zofran [facility] [address]-40 4 MG Orally 2 times a day Oct 06, 2015 1 tablet Nitrostat [facility] [address]-16 0.4 MG Sublingual not defined Pristiq [facility] [address]-30 100 MG TAKE ONE TABLET BY MOUTH ONCE DAILY Lyrica [facility] [id number] 100 MG TAKE ONE CAPSULE BY MOUTH FOUR TIMES DAILY Procedures Procedure Coding System Code Date Office Visit, Est Pt., Level 3 CPT-4 78806 Oct 06, 2015 Vital Signs Date/Time: Oct 06, 2015 Temperature 97.7 F Weight 157 lbs Height 67 in BMI 24.59 Index Blood Pressure Diastolic 60 mmHg Blood Pressure Systolic 92 mmHg Cardiac Monitoring Heart Rate 88 bpm Results No Known Results Summary Purpose [employer] Submission
--- OUTSIDE RECORDS SUMMARY | 2018-11-13 11:55 | XMS REPORT ---
Author [facility] Address [address] [place] [address] Care Team Providers Care Mobile Development Manager Name Role Phone ELIECER ROMAN Unavailable PROBLEMS Type Condition ICD9-CM Code [id number] Code Onset Dates Condition Status SNOMED Code Problem Borderline personality disorder F60.3 Active 71650082 Problem Post-traumatic stress disorder, chronic F43.12 Active 47822582 Problem Carpal tunnel syndrome of right wrist G56.01 Active [id number] Problem PAD (peripheral artery disease) I73.9 Active 571454039 Problem Anxiety F41.9 Active 46255295 Problem Cannabis use disorder, mild, abuse F12.10 Active 79169664 Problem Bipolar affective, depress, mod F31.32 Active 273714137 Problem Fibromyalgia M79.7 Active 622403650 Problem Cervical radiculopathy M54.12 Active 35829140 Problem CAD (coronary artery disease) I25.10 Active 18119095 Problem Depression F32.9 Active 73437363 Problem Back pain M54.9 Active 146407225 Problem Tobacco abuse Z72.0 Active 03367930 Problem Hyperlipidemia E78.5 Active 83237419 ALLERGIES No Information ENCOUNTERS Encounter Location Date Diagnosis [facility] [address], [place] [address] Apr, [facility] [address], [place] [address] February, [facility] [id number] [place] [address] 70920- 7149 February, [facility] [address] [place] [address] 72906- 0128 February, [facility] [id number] [place] [address] 76052- 3185 Jan, Post-traumatic stress disorder, chronic F43.12 ; Bipolar affective, depress, mod F31.32 ; Borderline personality disorder F60.3 and Cannabis use disorder, mild, abuse F12.10 [place] [address] [place] [id number] Jan, [place] [id number] [place] [address] 62288- 6615 Dec, Bipolar affective, depress, mod F31.32 ; Post-traumatic stress disorder, chronic F43.12 ; Borderline personality disorder F60.3 and Cannabis use disorder, mild, abuse F12.[address] [address]- 3706 Dec, Hoarseness R49.0 ; Bronchitis J40 ; PAD (peripheral artery disease) I73.9 and Tobacco abuse Z72.[address] [address]506- 4788 Nov, Bipolar affective, depress, mod F31.32 ; Post-traumatic stress disorder, chronic F43.12 ; Borderline personality disorder F60.3 and Cannabis use disorder, mild, abuse F12.10 [place] [id number] [place] [address] 76016- 6743 Oct, Post-traumatic stress disorder, chronic F43.12 ; Bipolar affective, depress, mod F31.32 ; Borderline personality disorder F60.3 and Cannabis use disorder, mild, abuse F12.10 [place] [id number] [place] [address] 95429- 1713 Oct, Bipolar affective, depress, mod F31.32 ; Post-traumatic stress disorder, chronic F43.12 and Borderline personality disorder F60.3 [place] [id number] [place] [address] 63977- 1928 Sep, Anxiety F41.9 [place] [id number] [place] [address] 48169- 8209 Aug, Bipolar affective, depress, mod F31.32 ; Post-traumatic stress disorder, chronic F43.12 and Borderline personality disorder F60.3 [place] [address] [place] [address] 84457- 9236 Aug, Bipolar affective, depress, mod F31.32 ; Post-traumatic stress disorder, chronic F43.12 and Borderline personality disorder F60.3 [place] [address] [place] [address] 18714- 4838 Aug, Fibromyalgia M79.7 ; Back pain M54.9 and Cervical radiculopathy M54.12 [place] [id number] [place] [address] 36713- 9176 Aug, Bipolar affective, depress, mod F31.32 and Post-traumatic stress disorder, chronic F43.12 [place] [id number] [place] [address] 85139- 0700 Jul, Depression F32.9 ; Borderline personality disorder F60.3 and Bipolar affective, depress, mod F31.32 [place] [id number] [place] [address] 45917- 9628 Jul, Post-traumatic stress disorder, chronic F43.12 ; Bipolar affective, depress, mod F31.32 ; Borderline personality disorder F60.3 and Cannabis use disorder, mild, abuse F12.10 [place] [id number] [place] [address] 77270- 4397 Jul, Other senior living (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.899 [place] [id number] [place] [address] 89212- 3690 Jun, [place] [id number] [place] [address] 72147- 5575 Jun, Depression F32.9 ; Borderline personality disorder F60.3 and Bipolar affective, depress, mod F31.32 [place] [id number] [place] [address] 19044- 0842 Jun, Depression F32.9 and Borderline personality disorder F60.3 [place] [id number] [place] [address] 98204- 9547 May, Post-traumatic stress disorder, chronic F43.12 [facility] [id number] [place] [address] 44918- 5756 May, Depression F32.9 and Borderline personality disorder F60.3 [place] [id number] [place] [address] 05718- 7778 Apr, Post-traumatic stress disorder, chronic F43.12 ; Bipolar affective, depress, mod F31.32 ; Borderline personality disorder F60.3 ; 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 and Cannabis use disorder, mild, abuse F12.10 [place] [id number] [place] [address] 71084- 9423 Apr, Depression F32.9 and Borderline personality disorder F60.3 [place] [id number] [place] [address] 67124- 5405 Apr, Depression F32.9 and Borderline personality disorder F60.3 [place] [id number] [place] [address] 85575- 2690 Mar, Depression F32.9 and Borderline personality disorder F60.3 [place] [id number] [place] [address] 46394- 0673 February, Depression F32.9 and Borderline personality disorder F60.3 [place] [id number] [place] [address] 67521- 7333 February, Back pain M54.9 [place] [id number] [place] [address] 32224- 4118 February, Depression F32.9 and Borderline personality disorder F60.3 [place] [id number] [place] [address] 85663- 9364 February, Post-traumatic stress disorder, chronic F43.12 ; Borderline personality disorder F60.3 and Bipolar affective disorder, depressed, mild F31.31 [place] [address] [place] [address] 20330- 5569 February, [place] [id number] [place] [address] February, Depression F32.9 and Borderline personality disorder F60.3 [place] [id number] [place] [address] 21950- 4324 Jan, [place] [id number] [place] [address] 71686- 2276 Jan, Depression F32.9 and Borderline personality disorder F60.3 [place] [address] 885902- 5834 Jan, Acute lateral meniscus tear of right knee, initial encounter S83.281A [place] [id number] [place] [address] 28139- 9819 Jan, Depression F32.9 and Borderline personality disorder F60.3 [place] [id number] [place] [address] 26718- 4045 Dec, Depression F32.9 and Borderline personality disorder F60.3 [place] [id number] [place] [address] 15981- 7941 Dec, Depression F32.9 and Borderline personality disorder F60.3 [place] [id number] [place] [address] 80273- 2403 Nov, Hyperlipidemia E78.5 ; Knee locking, right M23.91 and Carpal tunnel syndrome of right wrist G56.01 [place] [address] [place] [address] 04812- 8828 23 Nov, 2016 Bipolar affective, depress, mod F31.32 ; Post-traumatic stress disorder, chronic F43.12 and Borderline personality disorder F60.3 [place] [id number] [place] [address] 20545- 6030 16 Nov, 2016 Depression F32.9 and Borderline personality disorder F60.3 [facility] [address], [place] [address]- 3841 Oct, Post-traumatic stress disorder, chronic F43.12 and Other senior living (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.899 [facility] [address] [place] [address] 89964- 8195 Oct, Nondisplaced fracture of distal end of right radius with routine healing, subsequent encounter S52.501D [facility] [id number] [place] [address] 33422- 2734 Sep, [facility] [id number] [place] [address] 88992- 0677 Aug, Right wrist fracture, closed, initial encounter S62.101A [place] [id number] [place] [address] 72639- 1172 Aug, [facility] [id number] [place] [address] 36017- 1961 Jul, Back pain M54.9 and Hyperlipidemia E78.5 [place] [address] [place] [address] 89452- 7282 Jul, Post-traumatic stress disorder, chronic F43.12 and Other senior living (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.899 [facility] [address] [place] [address] 17869- 4832 Apr, Bipolar affective, depress, mod F31.32 ; Post-traumatic stress disorder, chronic F43.12 and 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 [facility] [address], [place] [address]- 5984 Mar, [facility] [id number] [place] [address] 24170- 6430 Jan, Post-traumatic stress disorder, chronic F43.12 and Depression F32.9 [facility] [id number] [place] [address] 12821- 1857 Dec, [facility] [id number] [place] [address] 95377- 1276 Nov, Shoulder pain, left M25.512 and Bronchitis J40 [place] [address] [place] [address] 21456- 4387 Sep, Hyperlipidemia E78.5 [place] [address] 95901- 8752 Sep, Hyperlipidemia E78.5 [place] [address] 66169- 1689 Sep, [place] [address] 48314- 7301 Sep, Back pain M54.9 ; CAD (coronary artery disease) I25.10 and Depression F32.[address] 30233- 6320 Sep, URI (upper respiratory infection) J06.9 ; Nausea & vomiting R11.2 and Tobacco abuse Z72.[address] 01079- 8839 Mar, Posttraumatic stress disorder 309.81 ; Major depressive disorder, recurrent episode, in partial remission 296.35 ; Nightmares associated with chronic post-traumatic stress disorder 307.47 ; Thoracic or lumbosacral neuritis or radiculitis, unspecified 724.4 ; Borderline personality disorder 301.83 and High risk medication use V58.69 [place] [address] [place] [address] 45086- 2543 Jan, [place] [address] 01498- 4832 Jan, [place] [id number] [place] [address] 73921- 4645 Dec, [place] [address] 94810- 9404 Dec, [facility] [place] [facility] [address] [id number] [place] 0137 Sep, [facility] [place] [facility] [address] [id number] [place] [address]- 4857 Sep, [facility] [place] [facility] [address] [id number] [place] [address]- 8384 Sep, [facility] [place] [facility] [address] [id number] [place] [address]- 3824 Sep, [facility] [place] [facility] [address] [id number] [place] [address]- 1050 Sep, [facility] [place] [facility] [address] [id number] [place] [address]- 7529 Jul, [facility] [place] [facility] [address] [id number] [place] [address]- 3404 Jul, [facility] [place] [facility] [address] [id number] [place] [address]- 0721 Jul, [facility] [place] [facility] [address] [id number] [place] [address]- 6270 Jul, [facility] [place] [facility] [address] [id number] [place] [address]- 5142 Jul, [facility] [place] [facility] [address] [id number] [place] [address]- 1261 Jul, [facility] [place] [facility] [address] [id number] [place] [address]- 5041 Jul, [facility] [place] [facility] [address] [id number] [place] [address]- 2483 Jul, [facility] [place] [facility] [address] [id number] [place] [address]- 5481 May, [facility] [place] [facility] [address] [id number] [place] 7843 May, [facility] [place] [facility] [address] [id number] [place] [address]- 0875 May, [facility] [place] [facility] [address] [id number] [place] [address]- 7622 May, [facility] [place] [facility] [address] [id number] [place] [address]- 3856 May, [facility] [place] [facility] [address] [id number] [place] [address]- 0400 May, [facility] [place] [facility] [address] [id number] [place] [address]- 2293 Mar, [facility] [place] [facility] [address] [id number] [place] [address]- 0384 Mar, [facility] [place] [facility] [address] [id number] [place] [address]- 8629 February, [facility] [place] [facility] [address] [id number] [place] [address]- 2964 February, [facility] [place] [facility] [address] [id number] [place] [address]- 0386 February, [facility] [place] [facility] [address] [id number] [place] [address]- 6218 February, [facility] [place] [facility] [address] [id number] [place] [address]- 5539 February, [facility] [place] [facility] [address] [id number] [place] [address]- 2371 February, [facility] [place] [facility] [address] [id number] [place] [address]- 9144 February, [facility] [place] [facility] [address] [id number] [place] [address]- 2819 Jan, [facility] [place] [facility] [address] [id number] [place] [address]- 0950 Jan, [facility] [place] [facility] [address] [id number] [place] [address]- 0959 Jan, [facility] [place] [facility] [address] [id number] [place] [address]- 4809 Jan, [facility] [place] [facility] [address] [id number] [place] [address]- 9557 24 Dec, 2013 [facility] [place] [facility] [address] [id number] [place] [address]- 4698 Dec, [facility] [place] [facility] [address] [id number] [place] [address]- 8606 Dec, [facility] [place] [facility] [address] [id number] [place] [address]- 4816 Dec, [facility] [place] [facility] [address] [id number] [place] [address]- 8381 Nov, [facility] [place] [facility] [address] [facility] [id number] [place] [address]- 7406 Nov, [facility] [place] [facility] [address] [id number] [place] [address]- 9106 Nov, [facility] [place] [facility] [address] [id number] [place] [address]- 4847 Nov, [facility] [place] [facility] [address] [id number] [place] [address]- 7946 Nov, [facility] [place] [facility] [address] [id number] [place] [address]- 7350 Nov, [facility] [place] [facility] [address] [id number] [place] [address]- 9377 Nov, [facility] [place] [facility] [address] [id number] [place] [address]- 6220 Nov, [facility] [place] [facility] [address] [id number] [place] [address]- 1993 Oct, [facility] [place] [facility] [address] [id number] [place] [address]- 9057 Oct, [facility] [place] [facility] [address] [id number], [place] [address]- 0162 Oct, [facility] [place] [facility] [address] [id number] [place] [address]- 0000 Oct, [facility] [place] [facility] [address] [id number] [place] [address]- 0020 Oct, [facility] [place] [facility] [address] [id number] [place] [address]- 7828 Oct, [facility] [place] [facility] [address] [id number] [place] [address]- 9639 Oct, [facility] [place] [facility] [address] [id number] [place] [address]- 0698 Oct, [facility] [place] [facility] [address] [id number] [place] [address]- 5560 Oct, [facility] [place] [facility] [address] [id number] [place] [address]- 4152 Oct, [facility] [place] [facility] [address] [id number] [place] [address]- 8265 Oct, [facility] [place] [facility] [address] [id number] [place] [address]- 6210 Aug, [facility] [place] [facility] [address] [id number] [place] [address]- 1155 Aug, [facility] [place] [facility] [address] [id number], [place] [address]- 5058 Jul, [facility] [place] [facility] [address] [id number], [place] [address]- 4072 Jul, [facility] [place] [facility] [address] [id number] [place] [address]- 9403 Jul, [facility] [place] [facility] [address] [id number] [place] [address]- 2863 Jul, [facility] [place] [facility] [address] [id number] [place] [address]- 7752 Jun, [facility] [place] [facility] [address] [id number] [place] [address]- 6838 Jun, [facility] [address] [id number] [place] [address]- 9873 Jan, [facility] [place] [facility] [address] [id number] [place] [address]- 3156 Oct, [facility] [address] [id number] [place] [address]- 9628 Sep, [facility] [place] [facility] [address] [id number] [place] [address]- 4557 Sep, [facility] [address] [id number] [place] [address]- 4268 Sep, [facility] [place] [facility] [address] [id number] [place] [address]- 9510 Sep, [facility] [place] [facility] [address] [id number] [place] [address]- 8550 Aug, [facility] [address] [id number] [place] [address]- 5659 Aug, [facility] [place] [facility] [address] [id number] [place] [address]- 0602 Aug, [facility] [address] [id number] [place] [address]- 9342 Aug, [facility] [place] [facility] [address] [id number] [place] [address]- 8280 Jul, [facility] [place] [facility] [address] [id number] [place] [address]- 6831 Jul, [facility] [place] [facility] [address] [id number] [place] [address]- 2031 Jul, [facility] [place] [facility] [address] [id number] [place] [address]- 2026 Jul, [facility] [place] [facility] [address] [id number] [place] [address]- 8141 Jul, [facility] [place] [facility] [address] [id number] [place] [address]- 0161 Jun, [facility] [place] [facility] [address] [id number] [place] [address]- 4176 Jun, [facility] [place] [facility] [address] [id number] [place] [address]- 7556 Jun, [facility] [place] [facility] [address] [id number] [place] [address]- 2727 May, [facility] [place] [facility] [address] [id number] [place] [address]- 4926 May, [facility] [place] [facility] [address] [id number] [place] [address]- 7635 Apr, [facility] [place] [facility] [address] [id number] [place] [address]- 5022 Apr, [facility] [place] [facility] [address] [id number] [place] [address]- 1975 Apr, [facility] [place] [facility] [address] [id number] [place] [address]- 2478 Apr, [facility] [place] [facility] [address] [id number] [place] [address]- 3741 Mar, [facility] [place] [facility] [address] [id number] [place] [address]- 4836 Mar, [facility] [place] [facility] [address] [id number] [place] [address]- 7384 Mar, [facility] [place] [facility] [address] [id number] [place] [address]- 1104 February, [facility] [place] [facility] [address] [id number] [place] [address]- 2236 February, [facility] [place] [facility] [address] [id number] [place] [address]- 6629 February, [facility] [place] [facility] [address] [id number] [place] [address]- 5224 February, [facility] [address] [id number] [place] [address]- 3446 February, [facility] [place] [facility] [address] [id number] [place] [address]- 0836 Jan, [facility] [place] [facility] [address] [id number] [place] [address]- 2306 Jan, [facility] [place] [facility] [address] [id number] [place] [address]- 8144 Jan, [facility] [address] [id number] [place] [address]- 9070 Dec, [facility] [place] [facility] [address] [id number] [place] [address]- 1663 Dec, [facility] [address] [id number] [place] [address]- 4954 Dec, [facility] [place] [facility] [address] [id number] [place] [address] Nov, [facility] [place] [facility] [address] [id number] [place] [address] Nov, [facility] [address] [id number] [place] [address] Nov, [facility] [place] [facility] [address] [id number] [place] [address] Nov, [facility] [place] [facility] [address] [id number] [place] [address] Oct, [facility] [place] [facility] [address] [id number] [place] [address] Oct, [facility] [place] [facility] [address] [id number] [place] [address] Sep, [facility] [place] [facility] [address] [id number] [place] [address] Sep, [facility] [place] [facility] [address] [id number] [place] [address] 14 Sep, 2011 [facility] [place] [facility] [address] [id number] [place] [address] 05 Sep, 2011 [facility] [place] [facility] [address] [id number] [place] [address] Aug, [facility] [place] [facility] [address] [id number] [place] [address] Aug, [facility] [place] [facility] [address] [id number] [place] [address] Aug, [facility] [place] [facility] [address] [id number] [place] [address] Jul, [facility] [place] [facility] [address] [id number] [place] [address] Jul, [facility] [place] [facility] [address] [id number] [place] [address] Jul, [facility] [place] [facility] [address] [id number] [place] [address] May, [facility] [place] [facility] [address] [id number] [place] [address] February, [facility] [place] [facility] [address] [id number] [place] [address] Nov, [facility] [place] [facility] [address] [id number] [place] [address] Oct, [facility] [place] [facility] [address] [id number] [place] [address] Oct, [facility] [place] [facility] [address] [id number] [place] [address] Sep, [facility] [place] [facility] [address] [id number] [place] [address] Sep, [facility] [place] [facility] [address] [id number], [place] [address] 17 Sep, 2010 [facility] [address] [id number] [place] [address] 16 Sep, 2010 [facility] [place] [facility] [address] [id number] [place] [address] 10 Sep, 2010 [facility] [place] [facility] [address] [id number] [place] [address] 10 Sep, 2010 [facility] [place] [facility] [address] [id number] [place] [address] 29 Aug, 2010 [facility] [place] [facility] [address] [id number] [place] [address] 23 Aug, 2010 [facility] [place] [facility] [address] [id number] [place] [address] 18 Aug, 2010 [facility] [address] [id number] [place] [address] 17 Aug, 2010 [facility] [place] [facility] [address] [id number] [place] [address] 16 Aug, 2010 [facility] [address] [id number] [place] [address] 25 Jul, 2010 [facility] [place] [facility] [address] [id number] [place] [address] 16 Jun, 2010 [facility] [place] [facility] [address] [id number], [place] [address] February, [facility] [place] [facility] [address] [id number], [place] [address] Oct, [facility] [place] [facility] [address] [id number] [place] [address] Sep, [facility] [place] [facility] [address] [id number] [place] [id number] 24 Aug, 2009 [facility] [place] [facility] [address] [id number] [place] [address] Aug, [facility] [place] [facility] [address] [id number] [address] Aug, [facility] [id number] [place] [address] Jul, [facility] [id number], [place] [address] Jul, [facility] [address], [place] [address] Jul, [facility] [id number], [place] [address] 14 Jun, 2009 [facility] [id number], [place] [address] 10 Jun, 2009 [facility] [id number], [place] [address] 16 Mar, 2009 [facility] [id number], [place] [address] Jan, [facility] [address] [id number], [place] [address] Aug, IMMUNIZATIONS No Known Immunizations SOCIAL HISTORY Never Assessed REASON FOR VISIT med refill PLAN OF CARE VITAL SIGNS MEDICATIONS Medication Instructions Dosage Frequency Start Date End Date Duration Status Pristiq 100 mg TAKE ONE TABLET BY MOUTH ONCE DAILY 30 days Active RESULTS No Results PROCEDURES [...]
--- OUTSIDE RECORDS SUMMARY | 2018-11-13 11:55 | XMS REPORT ---
Author MARIMAR Galeana [facility] eClinicalWorks Address Unknown Phone Unavailable Care Team Providers Care Account Solutions Analyst Name Role Phone MARIMAR JONES CP Unavailable Allergies No Known Allergies Problems Problem Type Condition Code Onset Dates Condition Status Problem Borderline personality disorder 301.83 Active Problem Coronary atherosclerosis of unspecified type of vessel, [place] or graft 414.00 Active Problem Other and [...] Date End Date Status Dosage Pravastatin Sodium [facility] [address]-30 40 MG Orally Once a day Oct 12, 2015 1 tablet Results No Known Results Summary Purpose eClinicalWorks Submission
--- OUTSIDE RECORDS SUMMARY | 2018-11-13 11:56 | XMS REPORT ---
Author Author ELIECER ROMAN [facility] Address [address] [place] [address] Care Team Providers Care Hoistman Name Role Phone ABELELIECER Unavailable PROBLEMS Type Condition ICD9-CM Code [id number] Code Onset Dates Condition Status SNOMED Code Problem Borderline personality disorder F60.3 Active 17378364 Problem Post-traumatic stress disorder, chronic F43.12 Active 05757485 Problem Carpal tunnel syndrome of right wrist G56.01 Active 268801946302470 Problem PAD (peripheral artery disease) I73.9 Active 195318289 Problem Anxiety F41.9 Active 35799757 Problem Cannabis use disorder, mild, abuse F12.10 Active 51436223 Problem Bipolar affective, depress, mod F31.32 Active 950978887 Problem Fibromyalgia M79.7 Active 395330669 Problem Cervical radiculopathy M54.12 Active 99052173 Problem CAD (coronary artery disease) I25.10 Active 58872796 Problem Depression F32.9 Active 53941072 Problem Back pain M54.9 Active 408999409 Problem Tobacco abuse Z72.0 Active 55346039 Problem Hyperlipidemia E78.5 Active 16831755 ALLERGIES No Information ENCOUNTERS Encounter Location Date Diagnosis [facility] [id number] [place] [address] 82275- 6083 Apr, [facility] [id number] [place] [address] 21300- 2661 February, [facility] [address] [place] [id number] [place] [address] 13891- 4607 February, Fibromyalgia M79.7 [facility] [id number] [place] [address] 52279- 1129 Jan, Post-traumatic stress disorder, chronic F43.12 ; Bipolar affective, depress, mod F31.32 ; Borderline personality disorder F60.3 and Cannabis use disorder, mild, abuse F12.10 [place] [id number] [address] Jan, [place] [facility] [address] [id number] [place] [address] Dec, Bipolar affective, depress, mod F31.32 ; Post-traumatic stress disorder, chronic F43.12 ; Borderline personality disorder F60.3 and Cannabis use disorder, mild, abuse F12.10 [place] [id number] [place] [address] 20206- 0655 Dec, Hoarseness R49.0 ; Bronchitis J40 ; PAD (peripheral artery disease) I73.9 and Tobacco abuse Z72.0 [place] [id number] [place] [address] 40975- 8756 Nov, Bipolar affective, depress, mod F31.32 ; Post-traumatic stress disorder, chronic F43.12 ; Borderline personality disorder F60.3 and Cannabis use disorder, mild, abuse F12.10 [place] [id number] [place] [address] 22730- 1883 Oct, Post-traumatic stress disorder, chronic F43.12 ; Bipolar affective, depress, mod F31.32 ; Borderline personality disorder F60.3 and Cannabis use disorder, mild, abuse F12.10 [place] [id number] [place] [address] 38407- 3746 Oct, Bipolar affective, depress, mod F31.32 ; Post-traumatic stress disorder, chronic F43.12 and Borderline personality disorder F60.3 [place] [address] [address] 9767 Sep, Anxiety F41.9 [place] [id number] [place] [address] Aug, Bipolar affective, depress, mod F31.32 ; Post-traumatic stress disorder, chronic F43.12 and Borderline personality disorder F60.3 [place] [facility] [id number] [place] [address] 42916- 7144 Aug, Bipolar affective, depress, mod F31.32 ; Post-traumatic stress disorder, chronic F43.12 and Borderline personality disorder F60.3 [place] [facility] [id number] [place] [address] 26748- 0488 Aug, Fibromyalgia M79.7 ; Back pain M54.9 and Cervical radiculopathy M54.12 [place] [id number] [place] [address] [address] Aug, Bipolar affective, depress, mod F31.32 and Post-traumatic stress disorder, chronic F43.[address] 13904- 4941 Jul, Depression F32.9 ; Borderline personality disorder F60.3 and Bipolar affective, depress, mod F31.[address] 62835- 0474 Jul, Post-traumatic stress disorder, chronic F43.12 ; Bipolar affective, depress, mod F31.32 ; Borderline personality disorder F60.3 and Cannabis use disorder, mild, abuse F12.10 [place] [id number] [place] [address] 32777- 9362 Jul, 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 74383- 9946 Jun, [address] 08208- 8316 Jun, Depression F32.9 ; Borderline personality disorder F60.3 and Bipolar affective, depress, mod F31.32 [place] [id number] [place] [address] 09400- 3696 Jun, Depression F32.9 and Borderline personality disorder F60.[address] 85262- 8948 May, Post-traumatic stress disorder, chronic F43.12 [facility] [id number] [place] [address] 02437- 5763 May, Depression F32.9 and Borderline personality disorder F60.3 [place] [id number] [place] [address] 67960- 9770 Apr, Post-traumatic stress disorder, chronic F43.12 ; Bipolar affective, depress, mod F31.32 ; Borderline personality disorder F60.3 ; 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 and Cannabis use disorder, mild, abuse F12.10 [place] [id number] [place] [address] 88362- 6439 Apr, Depression F32.9 and Borderline personality disorder F60.3 [place] [id number] [place] [address] 48298- 5035 Apr, Depression F32.9 and Borderline personality disorder F60.3 [place] [facility] [id number] [place] [address] 68863- 4413 Mar, Depression F32.9 and Borderline personality disorder F60.3 [place] [id number] [place] [address] 79069- 8097 February, Depression F32.9 and Borderline personality disorder F60.3 [place] [id number] [place] [address] 25555- 9781 February, Back pain M54.9 [place] [facility] [id number] [place] [address] 95275- 9116 February, Depression F32.9 and Borderline personality disorder F60.3 [place] [address] 35766- 1102 February, Post-traumatic stress disorder, chronic F43.12 ; Borderline personality disorder F60.3 and Bipolar affective disorder, depressed, mild F31.31 [place] [id number] [place] [address] 41616- 1531 February, [place] [facility] [address] [id number] [place] [address] 43976- 9243 February, Depression F32.9 and Borderline personality disorder F60.3 [place] [facility] [id number] [place] [address] 87084- 4653 Jan, [place] [facility] [id number] [place] [address] 12342- 6464 Jan, Depression F32.9 and Borderline personality disorder F60.3 [place] [facility] [id number] [place] [address] 41092- 0788 Jan, Acute lateral meniscus tear of right knee, initial encounter S83.281A [place] [address] 04059- 0124 Jan, Depression F32.9 and Borderline personality disorder F60.3 [place] [facility] [id number] [place] [address] 35683- 2845 Dec, Depression F32.9 and Borderline personality disorder F60.3 [place] [id number] [place] [address] 88308- 5567 Dec, Depression F32.9 and Borderline personality disorder F60.3 [place] [address] [place] [address] 04720- 7855 Nov, Hyperlipidemia E78.5 ; Knee locking, right M23.91 and Carpal tunnel syndrome of right wrist G56.01 [place] [address] [place] [address] 52720- 0431 23 Nov, 2016 Bipolar affective, depress, mod F31.32 ; Post-traumatic stress disorder, chronic F43.12 and Borderline personality disorder F60.3 [place] [id number] [place] [address] 12012- 2665 16 Nov, 2016 Depression F32.9 and Borderline personality disorder F60.3 [place] [id number] [place] [address] 22485- 3581 Oct, Post-traumatic stress disorder, chronic F43.12 and Other longterm (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.899 [place] [address] [id number] [place] [address] 04828- 0860 Oct, Nondisplaced fracture of distal end of right radius with routine healing, subsequent encounter S52.501D [place] [facility] [id number] [place] [address] 99880- 7512 Sep, [place] [address] 32092- 5185 Aug, Right wrist fracture, closed, initial encounter S62.101A [place] [address] 58174- 7961 Aug, [place] [facility] [address] [address] [id number] [place] [address] 45335- 1751 Jul, Back pain M54.9 and Hyperlipidemia E78.5 [place] [facility] [id number] [place] [address] 25369- 4787 Jul, Post-traumatic stress disorder, chronic F43.12 and Other longterm (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.899 [place] [id number] [place] [address] 85728- 0387 Apr, Bipolar affective, depress, mod F31.32 ; Post-traumatic stress disorder, chronic F43.12 and Other longterm (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.899 [place] [id number] [place] [address] 74748- 8603 Mar, [place] [facility] [address] [address] [id number] [place] [address] 94491- 2554 Jan, Post-traumatic stress disorder, chronic F43.12 and Depression F32.9 [place] [address] [address] [id number] [place] [address] 52758- 5766 Dec, [facility] [address] 28402- 9687 15 Nov, 2015 Shoulder pain, left M25.512 and Bronchitis J40 [place] [address] [address] [id number] [place] [address] 75269- 6109 Sep, Hyperlipidemia E78.5 [place] [address] [id number] [place] [address] 82616- 1240 Sep, Hyperlipidemia E78.5 [place] [address] 93556- 7752 Sep, [place] [address] 82658- 3702 Sep, Back pain M54.9 ; CAD (coronary artery disease) I25.10 and Depression F32.9 [place] [id number] [place] [address] 39754- 2132 Sep, URI (upper respiratory infection) J06.9 ; Nausea & vomiting R11.2 and Tobacco abuse Z72.0 [place] [id number] [place] [address] 15778- 8604 Mar, Posttraumatic stress disorder 309.81 ; Major depressive disorder, recurrent episode, in partial remission 296.35 ; Nightmares associated with chronic post-traumatic stress disorder 307.47 ; Thoracic or lumbosacral neuritis or radiculitis, unspecified 724.4 ; Borderline personality disorder 301.83 and High risk medication use V58.69 [place] [address] [id number] [place] [address] 01636- 6205 Jan, [place] [address] [id number] [place] [address] 21231- 1852 Jan, [place] [address] 99313- 8787 Dec, [place] [address] [address] [id number] [place] [address] 45503- 5815 Dec, [place] [address] [address] [id number] [place] [address] 95387- 8077 Sep, [facility] [place] [facility] [address] [id number] [place] [address]- 6797 Sep, [facility] [place] [facility] [address] [id number] [place] [address]- 0699 Sep, [facility] [place] [facility] [address] [id number] [place]842 Sep, [facility] [place] [facility] [address] [id number] [place] [address]- 2197 Sep, [facility] [place] [facility] [address] [id number] [place] [address]- 5222 Jul, [facility] [place] [facility] [address] [id number] [place] [address]- 7704 Jul, [facility] [place] [facility] [address] [id number] [place] [address]- 6025 Jul, [facility] [place] [facility] [address] [id number] [place] [address]- 7991 Jul, [facility] [place] [facility] [address] [id number] [place] [address]- 3233 Jul, [facility] [place] [facility] [address] [id number] [place] [address]- 5469 Jul, [facility] [place] [facility] [address] [id number] [place] [address]- 6269 Jul, [facility] [place] [facility] [address] [id number] [address]- 8380 Jul, [facility] [place] [facility] [address] [id number] [place] [address]- 0692 May, [facility] [place] [facility] [address] [id number] [place] [address]- 3981 May, [facility] [place] [facility] [address] [id number] [place] [address]- 6412 May, [facility] [place] [facility] [address] [id number] [place] [address]- 4431 May, [facility] [place] [facility] [address] [id number] [place] [address]- 0903 May, [facility] [place] [facility] [address] [id number] [place] [address]- 1651 May, [facility] [place] [facility] [address] [id number] [place] [address]- 4070 Mar, [facility] [place] [facility] [address] [id number] [place] [address]- 5480 Mar, [facility] [place] [facility] [address] [id number] [place] [address]- 3929 February, [facility] [place] [facility] [address] [id number] [place] [address]- 7200 February, [facility] [place] [facility] [address] [id number] [place] [address]- 7956 February, [facility] [place] [facility] [address] [id number] [place] [address]- 4444 February, [facility] [place] [facility] [address] [id number] [place] [address]- 7513 February, [facility] [place] [facility] [address] [id number] [place] [address]- 2446 February, [facility] [place] [facility] [address] [id number] [place] [address]- 2353 February, [facility] [place] [facility] [address] [id number] [place] [address]- 3770 Jan, [facility] [place] [facility] [address] [id number] [place] [address]- 7160 Jan, [facility] [place] [facility] [address] [id number] [place] [address]- 6342 Jan, [facility] [place] [facility] [address] [id number] [place] [address]- 3060 Jan, [facility] [place] [facility] [address] [id number] [place] [address]- 3299 Dec, [facility] [place] [facility] [address] [id number] [place] [address]- 3336 Dec, [facility] [place] [facility] [address] [id number] [place] [address]- 2052 Dec, [facility] [place] [facility] [address] [id number] [place] [address]- 8085 Dec, [facility] [place] [facility] [address] [id number] [place] [address]- 2885 Nov, [facility] [place] [facility] [address] [id number] [place] [address]- 9479 Nov, [facility] [place] [facility] [address] [id number] [place] [address]- 8159 Nov, [facility] [place] [facility] [address] [id number] [place] [address]- 1648 Nov, [facility] [place] [facility] [address] [id number] [place] [address]- 5233 Nov, [facility] [place] [facility] [address] [id number] [place] [address]- 1281 Nov, [facility] [place] [facility] [address] [id number] [place] [address]- 0009 Nov, [facility] [place] [facility] [address] [id number] [place] [address]- 4436 Nov, [facility] [place] [facility] [address] [id number] [place] [address]- 4162 Oct, [facility] [place] [facility] [address] [id number] [place] [address]- 4312 Oct, [facility] [place] [facility] [address] [id number] [place] [address]- 8193 Oct, [facility] [place] [facility] [address] [id number] [place] [address]- 7053 Oct, [facility] [place] [facility] [address] [id number] [place] [address]- 4954 Oct, [facility] [place] [facility] [address] [id number] [place] [address]- 8269 Oct, [facility] [place] [facility] [address] [id number] [place] [address]- 2925 Oct, [facility] [place] [facility] [address] [id number] [place] [address]- 5078 Oct, [facility] [place] [facility] [address] [id number] [place] [address]- 3058 Oct, [facility] [place] [facility] [address] [id number] [place] [address]- 3990 Oct, [facility] [place] [facility] [address] [id number] [place] [address]- 6296 Oct, [facility] [place] [facility] [address] [id number] [place] [address]- 0159 Aug, [facility] [place] [facility] [address] [id number] [place] [address]- 4836 Aug, [facility] [place] [facility] [address] [id number] [place] [address]- 7542 Jul, [facility] [place] [facility] [address] [id number] [place] [address]- 1905 31 Jul, 2013 [facility] [place] [facility] [address] [id number] [place] [address]- 5868 Jul, [facility] [place] [facility] [address] [id number] [place] [address]- 3000 24 Jul, 2013 [facility] [place] [facility] [address] [id number] [place] [address]- 7843 27 Jun, 2013 [facility] [place] [facility] [address] [id number] [place] [address]- 8761 19 Jun, 2013 [facility] [place] [facility] [address] [id number] [place] [address]- 2843 Jan, [facility] [place] [facility] [address] [id number] [place] [address]- 1714 Oct, [facility] [place] [facility] [address] [id number] [place] [address]- 7185 Sep, [facility] [place] [facility] [address] [id number] [place] [address]- 6889 Sep, [facility] [place] [facility] [address] [id number] [place] [address]- 0157 Sep, [facility] [place] [facility] [address] [id number] [place] [address]- 6045 Sep, [facility] [place] [facility] [address] [id number] [place] [address]- 3308 Aug, [facility] [place] [facility] [address] [id number] [place] [address]- 9392 Aug, [facility] [place] [facility] [address] [id number] [place] [address]- 8135 Aug, [facility] [place] [facility] [address] [id number] [place] [address]- 7765 Aug, [facility] [place] [facility] [address] [id number] [place] [address]- 4783 Jul, [facility] [place] [facility] [address] [id number] [place] [address]- 9928 Jul, [facility] [place] [facility] [address] [id number] [place] [address]- 1862 Jul, [facility] [place] [facility] [address] [id number] [place] [address]- 9291 Jul, [facility] [place] [facility] [address] [id number] [place] [address]- 0820 Jul, [facility] [place] [facility] [address] [id number] [place] [address]- 5011 Jun, [facility] [place] [facility] [address] [id number] [place] [address]- 7901 Jun, [facility] [place] [facility] [address] [id number] [place] [address]- 2166 Jun, [facility] [place] [facility] [address] [id number] [place] [address]- 1093 May, [facility] [place] [facility] [address] [id number] [place] [address]- 2736 May, [facility] [place] [facility] [address] [id number] [place] [address]- 3618 Apr, [facility] [place] [facility] [address] [id number] [place] [address]- 8247 Apr, [facility] [place] [facility] [address] [id number] [place] [address]- 4053 Apr, [facility] [place] [facility] [address] [id number] [place] [address]- 9694 Apr, [facility] [place] [facility] [address] [id number] [place] [address]- 4403 Mar, [facility] [place] [facility] [address] [id number] [place] [address]- 5150 Mar, [facility] [place] [facility] [address] [id number] [place] [address]- 7935 Mar, [facility] [place] [facility] [address] [id number] [place] [address]- 9056 February, [facility] [place] [facility] [address] [id number] [place] [address]- 8246 February, [facility] [place] [facility] [address] [id number] [place] [address]- 7076 February, [facility] [place] [facility] [address] [id number] [place] [address]- 2546 February, [facility] [place] [facility] [address] [id number] [place] [address]- 2376 February, [facility] [address] [id number] [place] [address]- 4396 Jan, [facility] [place] [facility] [address] [id number] [place] [address]- 4436 Jan, [facility] [address] [id number] [place] [address]- 0106 Jan, [facility] [address] [id number] [place] [address]- 5799 Dec, [facility] [address] [id number] [place] [address]- 5321 Dec, [facility] [address] [id number] [place] [address]- 5766 Dec, [facility] [address] [id number] [place] [address]- 3117 Nov, [facility] [address] [id number] [place] [address]- 3050 Nov, [facility] [address] [id number] [place] [address]- 6764 Nov, [facility] [address] [id number] [place] [address] Nov, [facility] [address] [id number] [place] [address] Oct, [facility] [address] [id number] [place] [address] Oct, [facility] [place] [facility] [address] [id number] [place] [address] Sep, [facility] [place] [facility] [address] [id number] [place] [address] Sep, [facility] [address] [id number] [place] [address] Sep, [facility] [place] [facility] [address] [id number] [place] [address] 05 Sep, 2011 [facility] [place] [facility] [address] [id number] [place] [address] Aug, [facility] [place] [facility] [address] [id number] [place] [address] 10 Aug, 2011 [facility] [place] [facility] [address] [id number] [place] [address] Aug, [facility] [place] [facility] [address] [id number] [place] [address] Jul, [facility] [place] [facility] [address] [id number] [place] [address] Jul, [facility] [place] [facility] [address] [id number] [place] [address] Jul, [facility] [place] [facility] [address] [id number] [place] [address] May, [facility] [place] [facility] [address] [id number] [place] [address] February, [facility] [place] [facility] [address] [id number] [place] [address] Nov, [facility] [place] [facility] [address] [id number] [place] [address] Oct, [facility] [place] [facility] [address] [id number] [address] Oct, [facility] [place] [facility] [address] [id number] [place] [address] Sep, [facility] [place] [facility] [address] [id number] [place] [address] Sep, [facility] [place] [facility] [address] [id number] [place] [address] Sep, [facility] [place] [facility] [address] [id number] [place] [address]- [address] 16 Sep, 2010 [facility] [address] [id number] [place] [address] 10 Sep, 2010 [facility] [place] [facility] [address] [id number] [place] [address] 10 Sep, 2010 [facility] [address] [id number] [place] [address] 29 Aug, 2010 [facility] [place] [facility] [address] [id number] [place] [address] 23 Aug, 2010 [facility] [address] [id number] [place] [address] 18 Aug, 2010 [facility] [place] [facility] [address] [id number] [place] [address] 17 Aug, 2010 [facility] [address] [id number] [place] [address] 16 Aug, 2010 [facility] [place] [facility] [address] [id number] [place] [address] 25 Jul, 2010 [facility] [place] [facility] [address] [id number] [place] [address] 16 Jun, 2010 [facility] [place] [facility] [address] [id number] [place] [address] February, [facility] [place] [facility] [address] [id number] [place] [address] Oct, [facility] [place] [facility] [address] [id number] [place] [address] Sep, [facility] [place] [facility] [address] [id number] [place] [address] Aug, [facility] [place] [facility] [address] [id number] [place] [address] Aug, [facility] [place] [facility] [address] [id number] [place] [address] Aug, [facility] [address] [id number] [address] Jul, [facility] [id number] [address] [address] Jul, [facility] [id number] [address] Jul, [facility] [id number] [place] [address] 14 Jun, 2009 [facility] [id number] [place] [place] [address] [id number] 10 Jun, 2009 [place] [id number] [place] [address] [id number] 16 Mar, 2009 [place] [id number] [id number] Jan, [place] [id number] [phone] Aug, IMMUNIZATIONS No Known Immunizations SOCIAL HISTORY Never Assessed REASON FOR VISIT Lab (walk-in) PLAN OF CARE VITAL SIGNS MEDICATIONS Unknown Medications RESULTS Name Result Date Reference Range LIPID PANEL 2017-07-29 Cholesterol, Total 156 100-199 Triglycerides 70 0-149 HDL Cholesterol 45 >39 VLDL Cholesterol Andrea 14 5-40 LDL Cholesterol Calc 97 0-99 Comment: CMP 2017-07-29 Glucose, Serum 82 65-99 BUN 13 6-24 Creatinine, Serum 0.59 0.57-1.00 eGFR If NonAfricn Am 101 >59 eGFR If Africn Am 117 >59 BUN/Creatinine Ratio 22 9-23 Sodium, Serum 140 134-144 Potassium, Serum 4.3 3.5-5.2 Chloride, Serum 101 96-106 Carbon Dioxide, Total 26 18-29 Calcium, Serum 9.3 8.7-10.2 Protein, Total, Serum 6.5 6.0-8.5 Albumin, Serum 4.0 3.5-5.5 Globulin, Total 2.5 1.5-4.5 A/G Ratio 1.6 1.2-2.2 Bilirubin, Total 0.2 0.0-1.2 Alkaline Phosphatase, S 59 39-117 AST (SGOT) 11 0-40 ALT (SGPT) 5 0-32 PROCEDURES Procedure Date Ordered Result Body Site LIPID PANEL Jul 29, 2017 COMPREHEN METABOLIC PANEL Jul 29, 2017 VENIPUNCT, ROUTINE* Jul 29, 2017 INSTRUCTIONS MEDICATIONS ADMINISTERED No Known Medications [...]
--- OUTSIDE RECORDS SUMMARY | 2018-11-13 11:56 | XMS REPORT ---
Author Author ELIECER ROMAN Organization [facility] Address [address] [place] [address] Care Team Providers Care Spot Welder Line Name Role Phone ABELELIECER Unavailable PROBLEMS Type Condition ICD9-CM Code [id number] Code Onset Dates Condition Status SNOMED Code Problem Borderline personality disorder F60.3 Active 22189861 Problem Post-traumatic stress disorder, chronic F43.12 Active 92020714 Problem Carpal tunnel syndrome of right wrist G56.01 Active 552198459392146 Problem PAD (peripheral artery disease) I73.9 Active 223245416 Problem Anxiety F41.9 Active 61722046 Problem Cannabis use disorder, mild, abuse F12.10 Active 21760130 Problem Bipolar affective, depress, mod F31.32 Active 945059582 Problem Fibromyalgia M79.7 Active 144413621 Problem Cervical radiculopathy M54.12 Active 07468617 Problem CAD (coronary artery disease) I25.10 Active 49003072 Problem Depression F32.9 Active 60294580 Problem Back pain M54.9 Active 947850217 Problem Tobacco abuse Z72.0 Active 45543140 Problem Hyperlipidemia E78.5 Active 54899618 ALLERGIES Substance Reaction Event Type Date Status Aspir-81 nausea Drug Allergy Oct, Active IV Dye nausea Non Drug Allergy Oct, Active ENCOUNTERS Encounter Location Date Diagnosis [facility] [address] [facility] [id number] [address] Apr, [facility] [address] [id number], [place] [address] Mar, [facility] [address] [id number], [place] [address] Mar, Bipolar affective, depress, mod F31.32 ; Post-traumatic stress disorder, chronic F43.12 ; Borderline personality disorder F60.3 and Cannabis use disorder, mild, abuse F12.10 [place] [id number] [place] [address] 86232- 6018 Mar, Tobacco abuse Z72.0 [place] [id number] [place] [address] Mar, [place] [id number] [place] [address] 06947- 8281 February, Fibromyalgia M79.7 [place] [id number] [place] [address] Jan, Post-traumatic stress disorder, chronic F43.12 ; Bipolar affective, depress, mod F31.32 ; Borderline personality disorder F60.3 and Cannabis use disorder, mild, abuse F12.10 [place] [id number] [place] [address] 00437- 5403 Jan, [place] [id number] [place] [address] 44852- 0527 Dec, Bipolar affective, depress, mod F31.32 ; Post-traumatic stress disorder, chronic F43.12 ; Borderline personality disorder F60.3 and Cannabis use disorder, mild, abuse F12.10 [place] [address] [place] [address] 42929- 7079 Dec, Hoarseness R49.0 ; Bronchitis J40 ; PAD (peripheral artery disease) I73.9 and Tobacco abuse Z72.0 [place] [address] [place] [address] 50844- 7617 Nov, Bipolar affective, depress, mod F31.32 ; Post-traumatic stress disorder, chronic F43.12 ; Borderline personality disorder F60.3 and Cannabis use disorder, mild, abuse F12.10 [place] [address] [place] [address] 60414- 6755 Oct, Post-traumatic stress disorder, chronic F43.12 ; Bipolar affective, depress, mod F31.32 ; Borderline personality disorder F60.3 and Cannabis use disorder, mild, abuse F12.[address] [place] [address] 54511- 6650 Oct, Bipolar affective, depress, mod F31.32 ; Post-traumatic stress disorder, chronic F43.12 and Borderline personality disorder F60.3 [place] [id number] [place] [address] 84038- 766 Sep, Anxiety F41.[address] 366 Aug, Bipolar affective, depress, mod F31.32 ; Post-traumatic stress disorder, chronic F43.12 and Borderline personality disorder F60.[address] 721 Aug, Bipolar affective, depress, mod F31.32 ; Post-traumatic stress disorder, chronic F43.12 and Borderline personality disorder F60.[address] 22696- 507 Aug, Fibromyalgia M79.7 ; Back pain M54.9 and Cervical radiculopathy M54.12 [place] [address]- 571 Aug, Bipolar affective, depress, mod F31.32 and Post-traumatic stress disorder, chronic F43.12 [place] [id number] [place] [address] 10102- 1379 Jul, Depression F32.9 ; Borderline personality disorder F60.3 and Bipolar affective, depress, mod F31.32 [place] [id number] [place] [address] 51058- 2943 Jul, Post-traumatic stress disorder, chronic F43.12 ; Bipolar affective, depress, mod F31.32 ; Borderline personality disorder F60.3 and Cannabis use disorder, mild, abuse F12.10 [place] [id number] [place] [address] 20470- 9890 Jul, Other detention (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.899 [facility] [address] [place] [address] 31232- 8245 Jun, [facility] [id number] [place] [address] 6736 Jun, Depression F32.9 ; Borderline personality disorder F60.3 and Bipolar affective, depress, mod F31.32 [place] [id number] [place] [address] 95557- 4428 Jun, Depression F32.9 and Borderline personality disorder F60.3 [place] [id number] [place] [address] 05954- 3063 May, Post-traumatic stress disorder, chronic F43.12 [place] [id number] [place] [address] 35522- 9006 May, Depression F32.9 and Borderline personality disorder F60.3 [place] [id number] [place] [address] 24623- 4193 Apr, Post-traumatic stress disorder, chronic F43.12 ; Bipolar affective, depress, mod F31.32 ; Borderline personality disorder F60.3 ; Other detention (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.899 and Cannabis use disorder, mild, abuse F12.10 [place] [address] [place] [address] 92312- 7775 Apr, Depression F32.9 and Borderline personality disorder F60.3 [place] [id number] [place] [address] 33898- 4148 Apr, Depression F32.9 and Borderline personality disorder F60.3 [place] [id number] [place] [address] 71253- 4389 Mar, Depression F32.9 and Borderline personality disorder F60.3 [place] [address] [place] [address] 18697- 2575 February, Depression F32.9 and Borderline personality disorder F60.3 [place] [id number] [place] [address] 47326- 8318 February, Back pain M54.9 [place] [address] 14503- 6338 February, Depression F32.9 and Borderline personality disorder F60.3 [place] [id number] [place] [address] 51628- 5652 February, Post-traumatic stress disorder, chronic F43.12 ; Borderline personality disorder F60.3 and Bipolar affective disorder, depressed, mild F31.31 [place] [id number] [place] [address] 20622- 3428 February, [place] [address] 46215- 9559 February, Depression F32.9 and Borderline personality disorder F60.3 [place] [id number] [place] [address] 12655- 3829 Jan, [place] [id number] [place] [address] 57978- 4022 Jan, Depression F32.9 and Borderline personality disorder F60.3 [place] [id number] [place] [address] 41366- 5244 Jan, Acute lateral meniscus tear of right knee, initial encounter S83.281A [place] [id number] [place] [address] 69756- 6774 Jan, Depression F32.9 and Borderline personality disorder F60.3 [place] [id number] [place] [address] 04905- 5297 Dec, Depression F32.9 and Borderline personality disorder F60.3 [place] [id number] [place] [address] 96527- 3082 Dec, Depression F32.9 and Borderline personality disorder F60.3 [place] [id number] [place] [address] 84959- 8969 Nov, Hyperlipidemia E78.5 ; Knee locking, right M23.91 and Carpal tunnel syndrome of right wrist G56.01 [place] [id number] [place] [address] 21167- 7535 Nov, Bipolar affective, depress, mod F31.32 ; Post-traumatic stress disorder, chronic F43.12 and Borderline personality disorder F60.3 [place] [id number] [place] [address] 85312- 4547 Nov, Depression F32.9 and Borderline personality disorder F60.3 [place] [address] 79295- 0834 Oct, Post-traumatic stress disorder, chronic F43.12 and Other detention (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.899 [place] [address] 40432- 9198 Oct, Nondisplaced fracture of distal end of right radius with routine healing, subsequent encounter S52.501D [place] [address] 16589- 0456 Sep, [place] [address] 67460- 6572 Aug, Right wrist fracture, closed, initial encounter S62.101A [place] [address] 77893- 7091 Aug, [place] [address] 79960- 0698 Jul, Back pain M54.9 and Hyperlipidemia E78.5 [place] [address] 75339- 0750 Jul, Post-traumatic stress disorder, chronic F43.12 and Other detention (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.899 [place] [id number] [place] [address] 32137- 1167 19 Mohan, 2016 Bipolar affective, depress, mod F31.32 ; Post-traumatic stress disorder, chronic F43.12 and Other detention (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.899 [place] [address] 53795- 0139 Mar, [place] [address] 52487- 6208 Jan, Post-traumatic stress disorder, chronic F43.12 and Depression F32.9 [place] [address] 63567- 6338 Dec, [address] 33384- 4878 Nov, Shoulder pain, left M25.512 and Bronchitis J40 [address] 52112- 4464 Sep, Hyperlipidemia E78.[address] 02324- 1504 Sep, Hyperlipidemia E78.[address] 89632- 0562 Sep, [address] 28745- 7154 Sep, Back pain M54.9 ; CAD (coronary artery disease) I25.10 and Depression F32.[address] 92940- 1252 Sep, URI (upper respiratory infection) J06.9 ; Nausea & vomiting R11.2 and Tobacco abuse Z72.[address] 12594- 9659 03 Mar, 2015 Posttraumatic stress disorder 309.81 ; Major depressive disorder, recurrent episode, in partial remission 296.35 ; Nightmares associated with chronic post-traumatic stress disorder 307.47 ; Thoracic or lumbosacral neuritis or radiculitis, unspecified 724.4 ; Borderline personality disorder 301.83 and High risk medication use V58.69 [facility] [address], [place] [address]- 7596 14 Jan, 2015 [facility] [address], [place] [address]- 0976 Jan, [facility] [address], [place] [address]- 9646 Dec, [facility] [address] [facility] [id number] [place] [address] 90098- 5617 Dec, [facility] [address] [place] [address] 80947- 1640 Sep, [facility] [id number] [place] [address] 08983- 8090 Sep, [facility] [id number] [place] [address] 50180- 6547 Sep, [facility] [address], [place] [address]- 4100 Sep, [facility] [address] [place] [address] 76699- 8022 Sep, [facility] [address], [place] [address]- 4725 Jul, [facility] [address], [place] [address]- 8757 Jul, [facility] [address], [place] [address]- 7250 Jul, [facility] [address], [place] [address]- 4079 Jul, [facility] [address], [place] [address]- 6412 Jul, [facility] [address], [place] [address]- 1947 Jul, [facility] [place] [facility] [address] [id number] [place] [address]- 5879 Jul, [facility] [place] [facility] [address] [id number] [place] [address]- 7191 Jul, [facility] [place] [facility] [address] [id number] [place] [address]- 4980 May, [facility] [place] [facility] [address] [id number] [place] [address]- 6151 May, [facility] [place] [facility] [address] [id number] [place] [address]- 7473 May, [facility] [place] [facility] [address] [id number] [place] [address]- 2851 May, [facility] [place] [facility] [address] [id number] [place] [address]- 2486 May, [facility] [place] [facility] [address] [id number] [place] [address]- 2899 May, [facility] [place] [facility] [address] [id number] [place] [address]- 8070 Mar, [facility] [place] [facility] [address] [id number] [place] [address]- 1349 Mar, [facility] [place] [facility] [address] [id number] [place] [address]- 7098 February, [facility] [place] [facility] [address] [id number] [place] [address]- 5422 February, [facility] [place] [facility] [address] [id number] [place] [address]- 6221 February, [facility] [place] [facility] [address] [id number] [place] [address]- 2295 February, [facility] [place] [facility] [address] [id number] [place] 0085 February, [facility] [place] [facility] [address] [id number] [place] [address]- 6404 February, [facility] [place] [facility] [address] [id number] [place] [address]- 1334 February, [facility] [place] [facility] [address] [id number] [place] [address]- 9963 Jan, [facility] [place] [facility] [address] [id number] [place] [address]- 1341 Jan, [facility] [place] [facility] [address] [id number] [place] [address]- 9553 Jan, [facility] [place] [facility] [address] [id number] [place] [address]- 5927 Jan, [facility] [place] [facility] [address] [id number] [place] [address]- 3254 Dec, [facility] [place] [facility] [address] [id number] [place] [address]- 8104 Dec, [facility] [place] [facility] [address] [id number] [place] [address]- 3275 Dec, [facility] [place] [facility] [address] [id number] [place] [address]- 8244 Dec, [facility] [place] [facility] [address] [id number] [place] [address]- 4266 Nov, [facility] [place] [facility] [address] [id number] [place] [address]- 2288 Nov, [facility] [place] [facility] [address] [id number] [place] [address]- 5100 Nov, [facility] [place] [facility] [address] [id number] [place] [address]- 2657 Nov, [facility] [place] [facility] [address] [id number] [place] [address]- 0438 Nov, [facility] [place] [facility] [address] [id number] [place] [address]- 7088 Nov, [facility] [place] [facility] [address] [id number] [place] [address]- 0760 Nov, [facility] [place] [facility] [address] [id number] [place] [address]- 6972 Nov, [facility] [place] [facility] [address] [id number] [place] [address]- 2338 Oct, [facility] [place] [facility] [address] [id number] [place] [address]- 3277 Oct, [facility] [place] [facility] [address] [id number] [place] [address]- 0368 Oct, [facility] [place] [facility] [address] [id number] [place] [address]- 5425 Oct, [facility] [place] [facility] [address] [id number] [place] [address]- 0860 Oct, [facility] [place] [facility] [address] [id number] [place] [address]- 0457 Oct, [facility] [place] [facility] [address] [id number] [place] [address]- 9981 Oct, [facility] [place] [facility] [address] [id number] [place] [address]- 9960 Oct, [facility] [place] [facility] [address] [id number] [place] [address]- 1619 Oct, [facility] [place] [facility] [address] [id number] [place] [address]- 6006 Oct, [facility] [place] [facility] [address] [id number] [place] [address]- 8324 Oct, [facility] [place] [facility] [address] [id number] [place] [address]- 9260 Aug, [facility] [place] [facility] [address] [id number] [place] [address]- 2726 Aug, [facility] [place] [facility] [address] [id number] [place] [address]- 7907 Jul, [facility] [place] [facility] [address] [id number] [place] [address]- 8674 Jul, [facility] [place] [facility] [address] [id number] [place] [address]- 6409 Jul, [facility] [place] [facility] [address] [id number] [place] 5549 Jul, [facility] [place] [facility] [address] [id number] [place] [address]- 9055 Jun, [facility] [place] [facility] [address] [id number] [place] [address]- 4639 Jun, [facility] [place] [facility] [address] [id number] [place] [address]- 6787 Jan, [facility] [place] [facility] [address] [facility] [id number] [place] [address]- 7277 Oct, [facility] [place] [facility] [address] [id number] [place] [address]- 8429 Sep, [facility] [place] [facility] [address] [id number] [place] [address]- 8343 Sep, [facility] [place] [facility] [address] [facility] [id number], [place] [address]- 6854 Sep, [facility] [place] [facility] [address] [id number], [place] [address]- 8667 Sep, [facility] [place] [facility] [address] [id number], [place] [address]- 3949 Aug, [facility] [place] [facility] [address] [id number] [place] [address]- 6050 Aug, [facility] [place] [facility] [address] [id number], [place] [address]- 7299 Aug, [facility] [place] [facility] [address] [facility] [id number], [place] [address]- 9404 Aug, [facility] [place] [facility] [address] [id number] [place] [address]- 1540 Jul, [facility] [place] [facility] [address] [id number] [place] [address]- 0588 Jul, [facility] [place] [facility] [address] [id number] [place] [address]- 9166 Jul, [facility] [place] [facility] [address] [id number] [place] [address]- 2135 Jul, [facility] [place] [facility] [address] [id number] [place] [address]- 6435 Jul, [facility] [place] [facility] [address] [id number] [place] [address]- 2913 Jun, [facility] [place] [facility] [address] [id number] [place] [address]- 9322 Jun, [facility] [place] [facility] [address] [id number] [place] [address]- 5361 Jun, [facility] [place] [facility] [address] [id number] [place] [address]- 2782 May, [facility] [place] [facility] [address] [id number] [place] [address]- 8287 May, [facility] [place] [facility] [address] [id number] [place] [address]- 6140 Apr, [facility] [place] [facility] [address] [id number] [place] [address]- 1275 Apr, [facility] [place] [facility] [address] [id number] [place] [address]- 8848 Apr, [facility] [place] [facility] [address] [id number] [place] [address]- 3747 Apr, [facility] [place] [facility] [address] [id number] [place] [address]- 8175 Mar, [facility] [place] [facility] [address] [id number] [place] [address]- 8280 Mar, [facility] [place] [facility] [address] [id number] [place] [address]- 5956 Mar, [facility] [place] [facility] [address] [id number] [place] [address]- 0252 February, [facility] [place] [facility] [address] [id number] [place] [address]- 5632 February, [facility] [place] [facility] [address] [id number] [place] [address]- 9667 February, [facility] [place] [facility] [address] [id number] [place] [address]- 3706 February, [facility] [place] [facility] [address] [id number] [place] [address]- 3902 February, [facility] [place] [facility] [address] [id number] [place] [address]- 6892 Jan, [facility] [place] [facility] [address] [id number] [place] [address]- 8420 Jan, [facility] [place] [facility] [address] [id number] [place] [address]- 4138 Jan, [facility] [place] [facility] [address] [id number] [place] [address]- 2009 Dec, [facility] [place] [facility] [address] [id number] [place] [address]- 5312 Dec, [facility] [place] [facility] [address] [id number] [place] [address] Dec, [facility] [place] [facility] [address] [id number] [place] [address] Nov, [facility] [place] [facility] [address] [id number] [place] [address] Nov, [facility] [place] [facility] [address] [id number] [place] [address] Nov, [facility] [place] [facility] [address] [id number], [place] [address] Nov, [facility] [place] [facility] [address] [id number] [place] [address] Oct, [facility] [place] [facility] [address] [id number] [place] [address] Oct, [facility] [place] [facility] [address] [facility] [id number] [place] [address] Sep, [facility] [place] [facility] [address] [id number] [place] [address] Sep, [facility] [place] [facility] [address] [id number] [place] [address] Sep, [facility] [place] [facility] [address] [facility] [id number] [place] [address] Sep, [facility] [place] [facility] [address] [facility] [id number] [place] [address] Aug, [facility] [place] [facility] [address] [facility] [id number] [place] [address] Aug, [facility] [place] [facility] [address] [facility] [id number] [place] [address] Aug, [facility] [place] [facility] [address] [facility] [id number] [place] [address] Jul, [facility] [place] [facility] [address] [facility] [id number], [place] [address] Jul, [facility] [place] [facility] [address] [facility] [id number], [place] [address] Jul, [facility] [place] [facility] [address] [facility] [id number], [place] [address] May, [facility] [place] [facility] [address] [facility] [id number] [place] [address] February, [facility] [place] [facility] [address] [facility] [id number] [place] [address]- [address] Nov, [facility] [place] [facility] [address] [id number] [place] [address]- [address] 14 Oct, 2010 [facility] [place] [facility] [address] [id number] [place] [address]- [address] 10 Oct, 2010 [facility] [place] [facility] [address] [id number] [place] [address] 22 Sep, 2010 [facility] [place] [facility] [address] [id number] [place] [address] 17 Sep, 2010 [facility] [place] [facility] [address] [id number] [place] [address] 17 Sep, 2010 [facility] [place] [facility] [address] [id number] [place] [address]- [address] 16 Sep, 2010 [facility] [place] [facility] [address] [id number] [place] [address] 10 Sep, 2010 [facility] [place] [facility] [address] [id number] [place] [address]- 2012 10 Sep, 2010 [facility] [place] [facility] [address] [id number] [place] [address]- [address] 29 Aug, 2010 [facility] [place] [facility] [address] [id number] [place] [address]- [address] 23 Aug, 2010 [facility] [place] [facility] [address] [id number] [place] [address] 18 Aug, 2010 [facility] [place] [facility] [address] [id number] [place] [address] 17 Aug, 2010 [facility] [place] [facility] [address] [id number] [place] [address] 254 16 Aug, 2010 [facility] [place] [facility] [address] [id number] [place] [address] 25 Jul, 2010 [facility] [place] [facility] [address] [id number] [place] [address]46 16 Jun, 2010 [facility] [place] [facility] [address] [id number] [place] [address] February, [facility] [id number], [place] [address] Oct, [facility] [id number] [place] [address] Sep, [facility] [facility] [id number] [address] Aug, [facility] [id number] [place] [phone] Aug, [facility] [id number] [place] [id number] Aug, [facility] [id number] [place] [phone] Jul, [facility] [id number] [place] [address] Jul, [facility] [id number] [place] [address] Jul, [facility] [id number], [place] [address] Jun, 2009 [facility] [id number], [place] [address] Jun, [facility] [id number], [place] [address] Mar, [facility] [id number], [place] [address] Jan, [facility] [id number], [place] [address] Aug, IMMUNIZATIONS No Known Immunizations SOCIAL HISTORY Never Assessed REASON FOR VISIT JAYJAY concepcion/Renialdo COVARRUBIAS PLAN OF CARE Activity Details Follow Up 3 Months Reason:JAYJAY f/[place] VITAL SIGNS Height 67 in 2017-11-13 Weight 161.5 lbs 2017-11-13 Heart Rate 82 bpm 2017-11-13 Respiratory Rate 2017-11-13 BMI 25.29 kg/m2 2017-11-13 Blood pressure systolic 118 mmHg 2017-11-13 Blood pressure diastolic 72 mmHg 2017-11-13 MEDICATIONS Medication Instructions Dosage Frequency Start Date End Date Duration Status Lyrica 100 mg TAKE ONE CAPSULE BY MOUTH FOUR TIMES DAILY 30 Not- Taking Ibuprofen 800 MG Orally Three times a day 1 tablet 8h Aug, Active Ativan 0.5 MG Orally 2 times a day 1 tablet as needed 12h Sep, Not-Taking Pravastatin Sodium 80 MG Orally Once a day 1 tablet 24h 30 days Active Nitrostat 0.4 MG Sublingual 2 5 min prn 1 Active Pristiq 100 mg TAKE ONE TABLET BY MOUTH ONCE DAILY Active QUEtiapine Fumarate ER 200 mg Orally Once a day 1 tablet every nicolas ( 300mg tab) 24h Active QUEtiapine Fumarate ER 300 MG Orally Once a day 1 tablet every nicolas ( 200mg tab) 24h Active RESULTS No Results PROCEDURES No [...]
--- OUTSIDE RECORDS SUMMARY | 2018-11-13 11:56 | XMS REPORT ---
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 Name Role Phone WHIT MICHAEL Unavailable PROBLEMS Type Condition ICD9-CM Code [id number] Code Onset Dates Condition Status SNOMED Code Problem CAD (coronary artery disease) I25.10 Active 12566756 Problem Back pain M54.9 Active 637816596 Problem Depression F32.9 Active 75086049 Problem Tobacco abuse Z72.0 Active 74868327 Problem Post-traumatic stress disorder, chronic F43.12 Active 02487429 Problem Cannabis use disorder, mild, abuse F12.10 Active 21777693 Problem Borderline personality disorder F60.3 Active 57629939 Problem Hyperlipidemia E78.5 Active 26874365 Problem Bipolar affective, depress, mod F31.32 Active 597121933 Problem Carpal tunnel syndrome of right wrist G56.01 Active 726822950741815 ALLERGIES Unknown Allergies SOCIAL HISTORY No smoking Hx information available PLAN OF CARE Activity Details Follow Up prn Reason: VITAL SIGNS Height 67 in 2016-10-31 Blood pressure systolic 112 mmHg 2016-10-31 Blood pressure diastolic 80 mmHg 2016-10-31 MEDICATIONS Unknown Medications RESULTS Name Result Date Reference Range Xray : Wrist, Right 3 views (IN HOUSE) 2016-10-31 PROCEDURES Procedure Date Ordered Related Diagnosis Body Site X-RAY EXAM OF WRIST Oct 31, 2016 Office Visit, Est Pt., Level 3 Oct 31, 2016 IMMUNIZATIONS No Known Immunizations
--- OUTSIDE RECORDS SUMMARY | 2018-11-13 11:56 | XMS REPORT ---
Author KAREN Montiel [facility] eClinical[employer] Address Unknown Phone Unavailable Care Team Providers Care [place] Worker Helper Name Role Phone KAREN ARENAS CP Unavailable Allergies, Adverse Reactions, Alerts Substance Reaction Event Type Aspir-81 nausea Drug Allergy IV Dye nausea Non Drug Allergy Problems Problem Type Condition Code Onset Dates Condition Status Problem Borderline personality disorder 301.83 Active Problem Coronary atherosclerosis of unspecified type of vessel, te-moak or graft 414.00 Active Problem Other and unspecified hyperlipidemia 272.4 Active Problem Back pain M54.9 Active Problem CAD (coronary artery disease) I25.10 Active Problem Hyperlipidemia E78.5 Active Problem Major depressive disorder, recurrent episode, in partial remission 296.35 Active Problem Nightmares associated with chronic post-traumatic stress disorder 307.47 Active Problem Depression F32.9 Active Problem Tobacco abuse Z72.0 Active Assessment Depression F32.9 Active Assessment Post-traumatic stress disorder, chronic F43.12 Active Problem Lumbago 724.2 Active Problem Posttraumatic stress disorder 309.81 Active Medications Medication Code System Code Instructions Start Date End Date Status Dosage Seroquel XR [facility] [address]-41 400 MG Orally Once a day TAKE ONE TABLET BY MOUTH ONCE PER DAY BETWEEN DINNER AND BEDTIME Lyrica [facility] [address]-29 100 MG TAKE ONE CAPSULE BY MOUTH FOUR TIMES DAILY Zofran [facility] [address]-15 4 MG Orally 2 times a day Oct 06, 2015 1 tablet Nitrostat [facility] [address]-06 0.4 MG Sublingual 2 5 min prn 1 Pravastatin Sodium [facility] [address]-85 40 MG Orally Once a day Oct 12, 2015 1 tablet Cyclobenzaprine HCl [facility] [address]-58 10 MG Orally 2 times a day prn shoulder pain Dec 11, 2015 1 tablet Pristiq [facility] [address]-22 100 MG Orally Once a day 1 tablet Procedures Procedure Coding System Code Date Office Visit, Est Pt., Level 3 CPT-4 71589 February 20, 2016 Vital Signs Date/Time: February 20, 2016 Cardiac Monitoring Heart Rate 80 bpm Weight 168.4 lbs Height 67 in BMI 26.37 Index Blood Pressure Diastolic 68 mmHg Blood Pressure Systolic 95 mmHg Results No Known Results Summary Purpose eClinicalWorks Submission
--- OUTSIDE RECORDS SUMMARY | 2018-11-13 11:58 | XMS REPORT ---
Author Author MATTHEW ACOSTA Organization [facility] Address [address] [place] [address] Care Team Providers Care Certified Fraud Examiner Name Role Phone MATTHEW ACOSTA Unavailable PROBLEMS Type Condition ICD9-CM Code [id number] Code Onset Dates Condition Status SNOMED Code Problem CAD (coronary artery disease) I25.10 Active 30156997 Problem Back pain M54.9 Active 206940517 Problem Depression F32.9 Active 09015414 Problem Tobacco abuse Z72.0 Active 21374401 Problem Post-traumatic stress disorder, chronic F43.12 Active 69649615 Problem Cannabis use disorder, mild, abuse F12.10 Active 57045586 Problem Borderline personality disorder F60.3 Active 93714492 Problem Hyperlipidemia E78.5 Active 96645170 Problem Bipolar affective, depress, mod F31.32 Active 902761647 Problem Carpal tunnel syndrome of right wrist G56.01 Active [id number] ALLERGIES No Information SOCIAL HISTORY Never Assessed PLAN OF CARE Activity Details Follow Up Next available Reason: VITAL SIGNS MEDICATIONS Unknown Medications RESULTS No Results PROCEDURES Procedure Date Ordered Result Body Site Psychotherapy, patient &/family, 30 minutes, established patient December 30, 2016 IMMUNIZATIONS No Known Immunizations MEDICAL (GENERAL) [...]
--- OUTSIDE RECORDS SUMMARY | 2018-11-13 11:58 | XMS REPORT ---
Author Author MARIMAR JONES [facility] Address [address] [place] [address] Care Team Providers Care Hand Sander Name Role Phone MARIMAR JONES Unavailable PROBLEMS Type Condition ICD9-CM Code [id number]-SS Code Onset Dates Condition Status SNOMED Code Problem Back pain M54.9 Active 720207333 Problem Borderline personality disorder F60.3 Active 65871983 Problem Hyperlipidemia E78.5 Active 98463142 Problem Tobacco abuse Z72.0 Active 97085200 Problem CAD (coronary artery disease) I25.10 Active 58862371 Problem Depression F32.9 Active 64454859 Problem Fibromyalgia M79.7 Active 394061825 Problem Cervical radiculopathy M54.12 Active 08944990 Problem Post-traumatic stress disorder, chronic F43.12 Active 10611396 Problem Carpal tunnel syndrome of right wrist G56.01 Active 907449265291021 Problem Cannabis use disorder, mild, abuse F12.10 Active 35802948 Problem Bipolar affective, depress, mod F31.32 Active 092722560 ALLERGIES Substance Reaction Event Type Date Status Aspir-81 nausea Drug Allergy February, Active IV Dye nausea Non Drug Allergy February, Active SOCIAL HISTORY Never Assessed PLAN OF CARE Activity Details Follow Up prn Reason: Future/Pending Procedure TRIGGER POINT INJ/1-2 MUS VITAL SIGNS Height 67 in 2017-03-25 Weight 156 lbs 2017-03-25 Temperature 98.3 degrees Fahrenheit 2017-03-25 Heart Rate 96 bpm 2017-03-25 Respiratory Rate 18 2017-03-25 BMI 24.43 kg/m2 2017-03-25 Blood pressure systolic 92 mmHg 2017-03-25 Blood pressure diastolic 64 mmHg 2017-03-25 MEDICATIONS Medication Instructions Dosage Frequency Start Date [...] TABLET BY MOUTH ONCE DAILY. 30 Active Pristiq 100 MG TAKE ONE TABLET BY MOUTH ONCE DAILY Active Nitrostat 0.4 MG Sublingual 2 5 min prn 1 Active QUEtiapine Fumarate ER 300 MG Orally Once a day 1 tablet every nicolas ( 200mg tab) 24h Nov, Active RESULTS No Results PROCEDURES Procedure Date Ordered Result Body Site INJECT TRIGGER POINT, 1 OR 2 March 25, 2017 IMMUNIZATIONS No Known Immunizations MEDICAL (GENERAL) [...]
--- OUTSIDE RECORDS SUMMARY | 2018-11-13 11:58 | XMS REPORT ---
Author Author MATTHEW ACOSTA Organization [facility] Address [address] [place] [address] Care Team Providers Care Under Trimmer Name Role Phone MATTHEW ACOSTA Unavailable PROBLEMS Type Condition ICD9-CM Code [id number] Code Onset Dates Condition Status SNOMED Code Problem CAD (coronary artery disease) I25.10 Active 59720293 Problem Back pain M54.9 Active 157432234 Problem Depression F32.9 Active 89515324 Problem Tobacco abuse Z72.0 Active 22027108 Problem Post-traumatic stress disorder, chronic F43.12 Active 36669032 Problem Cannabis use disorder, mild, abuse F12.10 Active 82750062 Problem Borderline personality disorder F60.3 Active 18394586 Problem Hyperlipidemia E78.5 Active 65410483 Problem Bipolar affective, depress, mod F31.32 Active 509477621 Problem Carpal tunnel syndrome of right wrist G56.01 Active [id number] ALLERGIES No Information SOCIAL HISTORY Never Assessed PLAN OF CARE Activity Details Follow Up 2 Weeks Reason: VITAL SIGNS MEDICATIONS Unknown Medications RESULTS No Results PROCEDURES Procedure Date Ordered Result Body Site Psychotherapy, patient &/family, 30 minutes, established patient January 13, 2017 IMMUNIZATIONS No Known Immunizations MEDICAL [...]
--- OUTSIDE RECORDS SUMMARY | 2018-11-13 11:58 | XMS REPORT ---
Author Author MATTHEW ACOSTA [facility] Address [address] [place] [address] Care Team Providers Care Bark Peeler Name Role Phone MATTHEW ACOSTA Unavailable PROBLEMS Type Condition ICD9-CM Code [id number] Code Onset Dates Condition Status SNOMED Code Problem Borderline personality disorder F60.3 Active 17008697 Problem Post-traumatic stress disorder, chronic F43.12 Active 76309792 Problem Carpal tunnel syndrome of right wrist G56.01 Active [id number] Problem PAD (peripheral artery disease) I73.9 Active 334516552 Problem Anxiety F41.9 Active 90322871 Problem Cannabis use disorder, mild, abuse F12.10 Active 94289563 Problem Bipolar affective, depress, mod F31.32 Active 627638683 Problem Fibromyalgia M79.7 Active 880056014 Problem Cervical radiculopathy M54.12 Active 89766772 Problem CAD (coronary artery disease) I25.10 Active 18601893 Problem Depression F32.9 Active 15004460 Problem Back pain M54.9 Active 691905770 Problem Tobacco abuse Z72.0 Active 78030625 Problem Hyperlipidemia E78.5 Active 23950475 ALLERGIES No Information ENCOUNTERS Encounter Location Date Diagnosis [facility] [id number], [place] [address] February, [facility] [address], [place] [address] Jan, [facility] [id number] [place] [address]9822- 2631 Jan, [facility] [address], [place] [address] Jan, [facility] [id number] [place] [address] 91672- 9180 Dec, Bipolar affective, depress, mod F31.32 ; Post-traumatic stress disorder, chronic F43.12 ; Borderline personality disorder F60.3 and Cannabis use disorder, mild, abuse F12.10 [facility] [id number] [place] [address] 59132- 3048 Dec, Hoarseness R49.0 ; Bronchitis J40 ; PAD (peripheral artery disease) I73.9 and Tobacco abuse Z72.0 [facility] [address] [id number]- [address] Nov, Bipolar affective, depress, mod F31.32 ; Post-traumatic stress disorder, chronic F43.12 ; Borderline personality disorder F60.3 and Cannabis use disorder, mild, abuse F12.10 [facility] [id number] [place] [address] 27575- 0156 Oct, Post-traumatic stress disorder, chronic F43.12 ; Bipolar affective, depress, mod F31.32 ; Borderline personality disorder F60.3 and Cannabis use disorder, mild, abuse F12.10 [facility] [facility] [id number] [place] [address] 94784- 2473 Oct, Bipolar affective, depress, mod F31.32 ; Post-traumatic stress disorder, chronic F43.12 and Borderline personality disorder F60.3 [facility] [id number] [place] [address] 13897- 0444 Sep, Anxiety F41.9 [facility] [facility] [address] [id number]- 0279 Aug, Bipolar affective, depress, mod F31.32 ; Post-traumatic stress disorder, chronic F43.12 and Borderline personality disorder F60.3 [place] [address] [id number]- 7256 Aug, Bipolar affective, depress, mod F31.32 ; Post-traumatic stress disorder, chronic F43.12 and Borderline personality disorder F60.3 [facility] [address] [address]- 6228 Aug, Fibromyalgia M79.7 ; Back pain M54.9 and Cervical radiculopathy M54.12 [place] [address] 093380- 2846 Aug, Bipolar affective, depress, mod F31.32 and Post-traumatic stress disorder, chronic F43.12 [facility] [facility] [address] [address]51- 5875 Jul, Depression F32.9 ; Borderline personality disorder F60.3 and Bipolar affective, depress, mod F31.32 [facility] [facility] [id number] [place] [address] 637124- 7587 Jul, Post-traumatic stress disorder, chronic F43.12 ; Bipolar affective, depress, mod F31.32 ; Borderline personality disorder F60.3 and Cannabis use disorder, mild, abuse F12.10 [facility] [address] [address]- 3532 Jul, Other technician terminal and repeater (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.899 [place] [address] 0[address]- 7228 Jun, [facility] [facility] [address] 08734- 2829 Jun, Depression F32.9 ; Borderline personality disorder F60.3 and Bipolar affective, depress, mod F31.32 [facility] [facility] [id number] [place] [address] 32499- 9625 Jun, Depression F32.9 and Borderline personality disorder F60.3 [facility] [facility] [id number] [place] [address] 59312- 7145 May, Post-traumatic stress disorder, chronic F43.12 [facility] [facility] [id number] [place] [address] 19618- 6853 May, Depression F32.9 and Borderline personality disorder F60.3 [place] [id number] [place] [address]46 Apr, Post-traumatic stress disorder, chronic F43.12 ; Bipolar affective, depress, mod F31.32 ; Borderline personality disorder F60.3 ; Other half-way (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.899 and Cannabis use disorder, mild, abuse F12.10 [facility] [address] [place] [address] 99635- 8319 Apr, Depression F32.9 and Borderline personality disorder F60.3 [facility] [id number] [place] [address] 14953- 3454 Apr, Depression F32.9 and Borderline personality disorder F60.3 [facility] [id number] [place] [address] 39541- 9968 Mar, Depression F32.9 and Borderline personality disorder F60.3 [facility] [id number] [place] [address] 23930- 8590 February, Depression F32.9 and Borderline personality disorder F60.3 [place] [id number] [place] [address] 48778- 1257 February, Back pain M54.9 [facility] [id number] [place] [address] 98891- 8785 February, Depression F32.9 and Borderline personality disorder F60.3 [facility] [id number] [place] [address] 39825- 5146 February, Post-traumatic stress disorder, chronic F43.12 ; Borderline personality disorder F60.3 and Bipolar affective disorder, depressed, mild F31.31 [facility] [address] [place] [address] 32265- 7182 February, [facility] [facility] [id number] [place] [address] 62531- 2334 February, Depression F32.9 and Borderline personality disorder F60.3 [facility] [id number] [place] [address] 75610- 7112 Jan, [facility] [id number] [place] [address] 86462- 3300 Jan, Depression F32.9 and Borderline personality disorder F60.3 [facility] [id number] [place] [address] 17272- 1947 Jan, Acute lateral meniscus tear of right knee, initial encounter S83.281A [facility] [facility] [address] 08760- 1305 Jan, Depression F32.9 and Borderline personality disorder F60.3 [facility] [facility] [address] 64536- 8824 Dec, Depression F32.9 and Borderline personality disorder F60.3 [facility] [facility] [id number] [place] [address] 14806- 2323 Dec, Depression F32.9 and Borderline personality disorder F60.3 [facility] [facility] [id number] [place] [address] 17998- 1468 Nov, Hyperlipidemia E78.5 ; Knee locking, right M23.91 and Carpal tunnel syndrome of right wrist G56.01 [facility] [facility] [id number] [place] [address] 68137- 4204 Nov, Bipolar affective, depress, mod F31.32 ; Post-traumatic stress disorder, chronic F43.12 and Borderline personality disorder F60.3 [facility] [facility] [id number] [place] [address] 67936- 2516 Nov, Depression F32.9 and Borderline personality disorder F60.3 [facility] [facility] [id number] [place] [address] 57147- 7610 Oct, Post-traumatic stress disorder, chronic F43.12 and Other technician terminal and repeater (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.899 [facility] [facility] [id number] [place] [address] 83105- 5060 Oct, Nondisplaced fracture of distal end of right radius with routine healing, subsequent encounter S52.501D [facility] [address] 37319- 9062 Sep, [place] [address] 89672- 3852 Aug, Right wrist fracture, closed, initial encounter S62.101A [facility] [address] 77952- 3894 Aug, [place] [address] 21949- 6843 Jul, Back pain M54.9 and Hyperlipidemia E78.5 [facility] [facility] [address] 09094- 4701 Jul, Post-traumatic stress disorder, chronic F43.12 and Other technician terminal and repeater (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.899 [place] [address] 20581- 8223 Apr, Bipolar affective, depress, mod F31.32 ; Post-traumatic stress disorder, chronic F43.12 and Other technician terminal and repeater (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.899 [place] [address] 78514- 1292 Mar, [place] [address] 30944- 9239 Jan, Post-traumatic stress disorder, chronic F43.12 and Depression F32.9 [facility] [facility] [id number] [place] [address] 02440- 8455 Dec, [facility] [facility] [address] 10437- 5575 Nov, Shoulder pain, left M25.512 and Bronchitis J40 [facility] [address] 80489- 1033 17 Sep, 2015 Hyperlipidemia E78.5 [place] [address] 14861- 3292 Sep, Hyperlipidemia E78.5 [facility] [id number] [place] [address] 52307- 0862 Sep, [facility] [id number] [place] [address] 43967- 0768 Sep, Back pain M54.9 ; CAD (coronary artery disease) I25.10 and Depression F32.9 [facility] [id number] [place] [address] 06486- 3587 Sep, URI (upper respiratory infection) J06.9 ; Nausea & vomiting R11.2 and Tobacco abuse Z72.0 [place] [id number] [place] [address] 11505- 8181 Mar, Posttraumatic stress disorder 309.81 ; Major depressive disorder, recurrent episode, in partial remission 296.35 ; Nightmares associated with chronic post-traumatic stress disorder 307.47 ; Thoracic or lumbosacral neuritis or radiculitis, unspecified 724.4 ; Borderline personality disorder 301.83 and High risk medication use V58.69 [facility] [id number] [place] [address] 17577- 3454 Jan, [facility] [id number] [place] [address] 03177- 9465 Jan, [facility] [address] [place] [address] 09200- 2010 Dec, [facility] [id number] [place] [address] 18060- 2091 Dec, [facility] [id number] [place] [address] 71402- 5831 Sep, [facility] [id number] [place] [address] 032410- 7455 Sep, [facility] [id number] [place] [address] 97245- 2759 Sep, [facility] [id number] [address]- 7870 Sep, [facility] [place] [facility] [address] [id number] [place] [address]- 6168 Sep, [facility] [place] [facility] [address] [id number] [place] [address]- 4363 Jul, [facility] [place] [facility] [address] [id number] [place] [address]- 8117 Jul, [facility] [place] [facility] [address] [id number] [place] [address]- 4595 Jul, [facility] [place] [facility] [address] [id number] [place] 0760 Jul, [facility] [place] [facility] [address] [id number] [place] [address]- 1563 Jul, [facility] [place] [facility] [address] [id number] [place] [address]- 5637 Jul, [facility] [place] [facility] [address] [id number] [place] [address]- 2433 Jul, [facility] [place] [facility] [address] [id number] [place] [address]- 4371 Jul, [facility] [place] [facility] [address] [id number] [place] [address]- 7488 May, [facility] [place] [facility] [address] [id number] [place] [address]- 6316 May, [facility] [place] [facility] [address] [id number] [place] [address]- 2535 May, [facility] [place] [facility] [address] [id number] [place] [address]- 0970 May, [facility] [place] [facility] [address] [id number] [place] [address]- 5944 May, [facility] [place] [facility] [address] [id number] [place] [address]- 7359 May, [facility] [place] [facility] [address] [id number] [place] [address]- 9691 Mar, [facility] [place] [facility] [address] [id number] [place] [address]- 7451 Mar, [facility] [place] [facility] [address] [id number] [place] [address]- 4071 February, [facility] [place] [facility] [address] [id number] [place] [address]- 0061 February, [facility] [place] [facility] [address] [id number] [place] [address]- 4179 February, [facility] [place] [facility] [address] [id number] [place] [address]- 0378 February, [facility] [place] [facility] [address] [id number] [place] [address]- 7309 February, [facility] [place] [facility] [address] [id number] [place] [address]- 8026 February, [facility] [place] [facility] [address] [id number] [place] [address]- 3563 February, [facility] [place] [facility] [address] [id number] [place] [address]- 0928 Jan, [facility] [place] [facility] [address] [id number] [place] [address]- 8824 Jan, [facility] [place] [facility] [address] [id number] [place] [address]- 8041 Jan, [facility] [place] [facility] [address] [id number] [place] [address]- 9226 Jan, [facility] [place] [facility] [address] [id number] [place] [address]- 2709 Dec, [facility] [place] [facility] [address] [id number] [place] [address]- 2920 Dec, [facility] [place] [facility] [address] [id number] [place] [address]- 1538 Dec, [facility] [place] [facility] [address] [id number] [place] [address]- 8696 Dec, [facility] [place] [facility] [address] [id number] [place] [address]- 2506 Nov, [facility] [place] [facility] [address] [id number] [place] [address]- 3346 Nov, [facility] [place] [facility] [address] [id number] [place] [address]- 2515 Nov, [facility] [place] [facility] [address] [id number] [place] [address]- 9090 Nov, [facility] [place] [facility] [address] [id number] [place] [address]- 3356 Nov, [facility] [place] [facility] [address] [id number] [place] [address]- 9161 Nov, [facility] [place] [facility] [address] [id number] [place] [address]- 7159 Nov, [facility] [place] [facility] [address] [id number] [place] [address]- 2487 Nov, [facility] [place] [facility] [address] [id number] [place] [address]- 6774 Oct, [facility] [place] [facility] [address] [id number] [place] [address]- 5938 Oct, [facility] [place] [facility] [address] [id number] [place] [address]- 0436 Oct, [facility] [place] [facility] [address] [id number] [place] [address]- 7969 Oct, [facility] [place] [facility] [address] [id number] [place] [address]- 9848 Oct, [facility] [place] [facility] [address] [id number] [place] [address]- 8094 Oct, [facility] [place] [facility] [address] [id number] [place] [address]- 9568 Oct, [facility] [place] [facility] [address] [id number] [place] [address]- 7755 Oct, [facility] [place] [facility] [address] [id number] [place] [address]- 1803 Oct, [facility] [place] [facility] [address] [id number] [place] [address]- 1748 Oct, [facility] [place] [facility] [address] [id number] [place] [address]- 2663 Oct, [facility] [place] [facility] [address] [id number] [place] [address]- 4809 Aug, [facility] [place] [facility] [address] [id number] [place] [address]- 1012 Aug, [facility] [place] [facility] [address] [id number] [place] [address]- 9405 Jul, [facility] [place] [facility] [address] [id number] [place] [address]- 7259 Jul, [facility] [place] [facility] [address] [id number] [place] [address]- 9123 Jul, [facility] [place] [facility] [address] [id number] [place] [address]- 3977 Jul, [facility] [place] [facility] [address] [id number], [place] [address]- 0952 Jun, [facility] [place] [facility] [address] [id number] [place] [address]- 9244 Jun, [facility] [place] [facility] [address] [id number] [place] [address]- 3203 Jan, [facility] [place] [facility] [address] [id number] [place] [address]- 9699 Oct, [facility] [place] [facility] [address] [id number] [place] [address]- 5511 Sep, [facility] [place] [facility] [address] [id number] [place] [address]- 9382 Sep, [facility] [place] [facility] [address] [id number] [place] [address]- 1610 Sep, [facility] [place] [facility] [address] [id number] [place] [address]- 2516 Sep, [facility] [place] [facility] [address] [id number] [place] [address]- 2046 Aug, [facility] [place] [facility] [id number] [place] [address], [place] [address]- 5335 Aug, [facility] [place] [facility] [address] [id number] [place] [address]- 1274 Aug, [facility] [place] [facility] [address] [facility] [id number] [place] [address]- 3797 Aug, [facility] [place] [facility] [address] [id number] [place] [address]- 0049 Jul, [facility] [place] [facility] [address] [id number] [place] [address]- 2047 Jul, [facility] [place] [facility] [address] [facility] [id number] [place] [address]- 8644 Jul, [facility] [place] [facility] [address] [id number] [place] [address]- 8211 Jul, [facility] [place] [facility] [address] [id number], [place] [address]- 4298 Jul, [facility] [place] [facility] [address] [id number], [place] [address]- 7746 Jun, [facility] [place] [facility] [address] [id number], [place] [address]- 8893 Jun, [facility] [place] [facility] [address] [facility] [id number], [place] [address]- 8080 Jun, [facility] [place] [facility] [address] [id number] [place] [address]- 0036 May, [facility] [place] [facility] [address] [id number] [place] [address]- 0206 May, [facility] [place] [facility] [address] [id number] [place] [address]- 2626 Apr, [facility] [place] [facility] [address] [id number] [place] [address]- 1503 Apr, [facility] [place] [facility] [address] [id number] [place] [address]- 1746 Apr, [facility] [place] [facility] [address] [id number] [place] [address]- 7748 Apr, [facility] [place] [facility] [address] [id number] [place] [address]- 4589 Mar, [facility] [place] [facility] [address] [id number] [place] [address]- 5277 Mar, [facility] [place] [facility] [address] [id number] [place] [address]- 5713 Mar, [facility] [place] [facility] [address] [id number] [place] [address]- 9201 February, [facility] [place] [facility] [address] [id number] [place] [address]- 3291 February, [facility] [place] [facility] [address] [id number] [place] [address]- 6716 February, [facility] [place] [facility] [address] [id number] [place] [address]- 5916 February, [facility] [place] [facility] [address] [id number] [place] [address]- 0246 February, [facility] [place] [facility] [address] [id number] [place] [address]- 0226 Jan, [facility] [place] [facility] [address] [id number] [place] [address]- 7764 Jan, [facility] [place] [facility] [address] [id number] [place] [address]- 7310 Jan, [facility] [place] [facility] [address] [id number] [place] [address]- 9756 30 Dec, 2011 [facility] [place] [facility] [address] [id number] [place] [address]- 9226 Dec, [facility] [place] [facility] [address] [id number] [place] [address]- 3553 Dec, [facility] [place] [facility] [address] [id number] [place] [address]- 6764 29 Nov, 2011 [facility] [place] [facility] [address] [id number] [place] [address] 16 Nov, 2011 [facility] [place] [facility] [address] [id number] [place] [address] Nov, [facility] [place] [facility] [address] [id number] [place] [address] Nov, [facility] [place] [facility] [address] [id number] [place] [address] Oct, [facility] [place] [facility] [address] [id number] [place] [address] Oct, [facility] [place] [facility] [address] [id number] [place] [address] Sep, [facility] [place] [facility] [address] [id number] [place] [address] 30 Sep, 2011 [facility] [place] [facility] [address] [id number] [place] [address]26 14 Sep, 2011 [facility] [place] [facility] [address] [id number] [place] [address] 05 Sep, 2011 [facility] [place] [facility] [address] [id number] [place] [address] Aug, [facility] [place] [facility] [address] [id number] [place] [address] 10 Aug, 2011 [facility] [address] [id number] [place] [address] Aug, [facility] [place] [facility] [address] [id number] [place] [address] Jul, [facility] [address] [id number] [place] [address] Jul, [facility] [place] [facility] [address] [id number] [place] [address] Jul, [facility] [address] [id number] [place] [address] May, [facility] [place] [facility] [address] [id number] [place] [address] February, [facility] [address] [id number] [place] [address] Nov, [facility] [address] [id number] [place] [address] Oct, [facility] [address] [id number] [place] [address] Oct, [facility] [address] [id number] [place] [address] Sep, [facility] [address] [id number] [place] [address] 17 Sep, 2010 [facility] [place] [facility] [address] [id number] [place] [address] 17 Sep, 2010 [facility] [place] [facility] [address] [id number] [place] [address] 16 Sep, 2010 [facility] [place] [facility] [address] [id number] [place] [address] Sep, [facility] [place] [facility] [address] [id number] [place] [address] Sep, [facility] [place] [facility] [address] [id number] [place] [address] 29 Aug, 2010 [facility] [place] [facility] [address] [id number] [place] [address] 23 Aug, 2010 [facility] [place] [facility] [address] [id number] [place] [address] 18 Aug, 2010 [facility] [place] [facility] [address] [id number] [place] [address] 17 Aug, 2010 [facility] [place] [facility] [address] [id number] [place] [address] 16 Aug, 2010 [facility] [place] [facility] [address] [id number] [place] [address] 25 Jul, 2010 [facility] [place] [facility] [address] [id number] [place] [address] 67[address] 16 Jun, 2010 [facility] [place] [facility] [address] [id number], [place] [address] 15 Feb, 2010 [facility] [place] [facility] [address] [id number] [place] [address] Oct, [facility] [place] [facility] [address] [id number], [place] [address] Sep, [facility] [place] [facility] [address] [id number], [place] [address] Aug, [facility] [place] [facility] [address] [id number] [address] Aug, [facility] [place] [facility] [address] [id number] [place] [address] Aug, [facility] [place] [facility] [address] [id number], [place] [address] 20 Jul, 2009 [facility] [place] [facility] [address] [id number], [place] [address] 15 Jul, 2009 [facility] [place] [facility] [address] [id number], [place] [address] 15 Jul, 2009 [facility] [address] [id number], [place] [address] 14 Jun, 2009 [facility] [address] [id number], [place] [address] 10 Jun, 2009 [facility] [address] [id number], [place] [address] 16 Mar, 2009 [facility] [id number], [place] [address] 13 Jan, 2009 [facility] [id number], [place] [address] Aug, IMMUNIZATIONS No Known Immunizations SOCIAL HISTORY Never Assessed REASON FOR VISIT f/u PLAN OF CARE Activity Details Follow Up 2 Weeks Reason: VITAL SIGNS MEDICATIONS Unknown Medications RESULTS No Results PROCEDURES Procedure Date Ordered Result Body Site Psychotherapy, patient &/family, 30 minutes, established patient May 21, 2017 INSTRUCTIONS MEDICATIONS ADMINISTERED No Known Medications [...]
--- OUTSIDE RECORDS SUMMARY | 2018-11-13 11:58 | XMS REPORT ---
Author Author MATTHEW ACOSTA [facility] Address [address] [place] [address] Care Team Providers Care Employment Consultant Name Role Phone MATTHEW ACOSTA Unavailable PROBLEMS Type Condition ICD9-CM Code GQI64-DS Code Onset Dates Condition Status SNOMED Code Problem Borderline personality disorder F60.3 Active 78177288 Problem Post-traumatic stress disorder, chronic F43.12 Active 03307184 Problem Carpal tunnel syndrome of right wrist G56.01 Active [id number] Problem PAD (peripheral artery disease) I73.9 Active 579264504 Problem Anxiety F41.9 Active 21730342 Problem Cannabis use disorder, mild, abuse F12.10 Active 37846159 Problem Bipolar affective, depress, mod F31.32 Active 988204489 Problem Fibromyalgia M79.7 Active 565746418 Problem Cervical radiculopathy M54.12 Active 60586110 Problem CAD (coronary artery disease) I25.10 Active 90651928 Problem Depression F32.9 Active 34040094 Problem Back pain M54.9 Active 527537692 Problem Tobacco abuse Z72.0 Active 38023779 Problem Hyperlipidemia E78.5 Active 98295464 ALLERGIES No Information ENCOUNTERS Encounter Location Date Diagnosis [facility] [address] [id number], [place] [address] Apr, [facility] [address] [id number], [place] [address] February, [facility] [id number] [place] [address] 50152- 6840 February, [facility] [address], [place] [address] February, [facility] [id number] [place] [address] 01352- 2699 Jan, Post-traumatic stress disorder, chronic F43.12 ; Bipolar affective, depress, mod F31.32 ; Borderline personality disorder F60.3 and Cannabis use disorder, mild, abuse F12.10 [place] [id number] [place] [address] Jan, [id number] [place], [place] [address] Dec, Bipolar affective, depress, mod F31.32 ; Post-traumatic stress disorder, chronic F43.12 ; Borderline personality disorder F60.3 and Cannabis use disorder, mild, abuse F12.[address] 622806- 0530 Dec, Hoarseness R49.0 ; Bronchitis J40 ; PAD (peripheral artery disease) I73.9 and Tobacco abuse Z72.[address] 341660- 0688 Nov, Bipolar affective, depress, mod F31.32 ; Post-traumatic stress disorder, chronic F43.12 ; Borderline personality disorder F60.3 and Cannabis use disorder, mild, abuse F12.10 [id number] [place] [address] 23158- 3154 Oct, Post-traumatic stress disorder, chronic F43.12 ; Bipolar affective, depress, mod F31.32 ; Borderline personality disorder F60.3 and Cannabis use disorder, mild, abuse F12.10 [id number] [place] [address] 68420- 4743 Oct, Bipolar affective, depress, mod F31.32 ; Post-traumatic stress disorder, chronic F43.12 and Borderline personality disorder F60.3 [id number] [place] [address]43 Sep, Anxiety F41.9 [id number] [place] [address] 7767 Aug, Bipolar affective, depress, mod F31.32 ; Post-traumatic stress disorder, chronic F43.12 and Borderline personality disorder F60.3 [facility] [id number] [place] [address] 31890- 1098 Aug, Bipolar affective, depress, mod F31.32 ; Post-traumatic stress disorder, chronic F43.12 and Borderline personality disorder F60.3 [facility] [id number] [place] [address] 79052- 7501 Aug, Fibromyalgia M79.7 ; Back pain M54.9 and Cervical radiculopathy M54.12 [facility] [id number] [place] [address] 75192- 1104 Aug, Bipolar affective, depress, mod F31.32 and Post-traumatic stress disorder, chronic F43.12 [place] [id number] [place] [address] 52106- 9014 Jul, Depression F32.9 ; Borderline personality disorder F60.3 and Bipolar affective, depress, mod F31.32 [place] [id number] [place] [address] 62602- 7122 Jul, Post-traumatic stress disorder, chronic F43.12 ; Bipolar affective, depress, mod F31.32 ; Borderline personality disorder F60.3 and Cannabis use disorder, mild, abuse F12.10 [facility] [id number] [place] [address] 03505- 8016 Jul, 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 [facility] [id number] [place] [address] 14793- 5241 Jun, [place] [id number] [place] [address] 09999- 2281 Jun, Depression F32.9 ; Borderline personality disorder F60.3 and Bipolar affective, depress, mod F31.32 [facility] [id number] [place] [address] 38121- 7502 Jun, Depression F32.9 and Borderline personality disorder F60.3 [facility] [id number] [place] [address] 79663- 2347 May, Post-traumatic stress disorder, chronic F43.12 [facility] [id number] [place] [address] [address] May, Depression F32.9 and Borderline personality disorder F60.3 [place] [address] 80995- 8908 Apr, Post-traumatic stress disorder, chronic F43.12 ; Bipolar affective, depress, mod F31.32 ; Borderline personality disorder F60.3 ; 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 and Cannabis use disorder, mild, abuse F12.10 [place] [id number] [place] [address] 86159- 2637 Apr, Depression F32.9 and Borderline personality disorder F60.3 [place] [id number] [place] [address] 80009- 6648 Apr, Depression F32.9 and Borderline personality disorder F60.3 [place] [id number] [place] [address] 32106- 6474 Mar, Depression F32.9 and Borderline personality disorder F60.3 [place] [id number] [place] [address] 69426- 4953 February, Depression F32.9 and Borderline personality disorder F60.3 [place] [id number] [place] [address] 91986- 2459 February, Back pain M54.9 [place] [id number] [place] [address] 23794- 1173 February, Depression F32.9 and Borderline personality disorder F60.3 [facility] [id number] [place] [address] 6[address] February, Post-traumatic stress disorder, chronic F43.12 ; Borderline personality disorder F60.3 and Bipolar affective disorder, depressed, mild F31.31 [place] [address] [place] [address] 38774- 9469 February, [place] [address] [id number]- 7133 February, Depression F32.9 and Borderline personality disorder F60.3 [place] [id number] [place] [address] 68361- 7307 Jan, [place] [id number] [place] [address] 56482- 7007 Jan, Depression F32.9 and Borderline personality disorder F60.3 [place] [address]707[address]- 6903 Jan, Acute lateral meniscus tear of right knee, initial encounter S83.281A [place] [id number] [place] [address] 95720- 7717 Jan, Depression F32.9 and Borderline personality disorder F60.3 [place] [id number] [place] [address] 73609- 5063 Dec, Depression F32.9 and Borderline personality disorder F60.3 [place] [id number] [place] [address] 85052- 8517 Dec, Depression F32.9 and Borderline personality disorder F60.3 [place] [id number] [place] [address] 95556- 7043 Nov, Hyperlipidemia E78.5 ; Knee locking, right M23.91 and Carpal tunnel syndrome of right wrist G56.01 [place] [address] [place] [address] 68790- 5450 23 Nov, 2016 Bipolar affective, depress, mod F31.32 ; Post-traumatic stress disorder, chronic F43.12 and Borderline personality disorder F60.3 [place] [address] [place] [address] 50567- 8864 16 Nov, 2016 Depression F32.9 and Borderline personality disorder F60.3 [facility] [address], [place] [address] 4929 Oct, Post-traumatic stress disorder, chronic F43.12 and 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 [facility] [address] [place] [address] 27681- 4512 Oct, Nondisplaced fracture of distal end of right radius with routine healing, subsequent encounter S52.501D [facility] [id number] [place] [address] 12123- 0786 Sep, [facility] [id number] [place] [address] 94777- 4806 Aug, Right wrist fracture, closed, initial encounter S62.101A [facility] [id number] [place] [address] 99433- 9006 Aug, [facility] [id number] [place] [address] 84819- 5729 Jul, Back pain M54.9 and Hyperlipidemia E78.5 [place] [id number] [place] [address] 15109- 3936 Jul, Post-traumatic stress disorder, chronic F43.12 and 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 [facility] [address] [place] [address] 36130- 5269 Apr, Bipolar affective, depress, mod F31.32 ; Post-traumatic stress disorder, chronic F43.12 and 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 [facility] [address], [place] [address]- 2675 Mar, [facility] [id number] [place] [address] 25174- 1120 Jan, Post-traumatic stress disorder, chronic F43.12 and Depression F32.9 [facility] [id number] [place] [address] 54951- 8636 Dec, [facility] [id number] [place] [address] 40032- 4563 Nov, Shoulder pain, left M25.512 and Bronchitis J40 [facility] [id number] [place] [address] 38508- 1730 Sep, Hyperlipidemia E78.5 [place] [address] 76089- 0739 Sep, Hyperlipidemia E78.5 [facility] [address] 32529- 2948 Sep, [place] [address] 03145- 6772 Sep, Back pain M54.9 ; CAD (coronary artery disease) I25.10 and Depression F32.[address] 00792- 1834 Sep, URI (upper respiratory infection) J06.9 ; Nausea & vomiting R11.2 and Tobacco abuse Z72.[address] 89294- 2467 Mar, Posttraumatic stress disorder 309.81 ; Major depressive disorder, recurrent episode, in partial remission 296.35 ; Nightmares associated with chronic post-traumatic stress disorder 307.47 ; Thoracic or lumbosacral neuritis or radiculitis, unspecified 724.4 ; Borderline personality disorder 301.83 and High risk medication use V58.69 [place] [id number] [place] [address] 29599- 5913 Jan, [place] [address] 26135- 2636 Jan, [facility] [id number] [place] [address] 49469- 1160 Dec, [place] [address] 22066- 3675 Dec, [facility] [place] [facility] [address] [id number] [place] [address]- 5765 Sep, [facility] [place] [facility] [address] [id number] [place] [address]- 6695 Sep, [facility] [place] [facility] [address] [id number] [place] [address]- 5987 Sep, [facility] [place] [facility] [address] [id number] [place] [address]- 3741 Sep, [facility] [place] [facility] [address] [id number] [place] [address]- 0560 Sep, [facility] [place] [facility] [address] [id number] [place] [address]- 6107 Jul, [facility] [place] [facility] [address] [id number] [place] [address]- 6072 Jul, [facility] [place] [facility] [address] [id number] [place] [address]- 8137 Jul, [facility] [place] [facility] [address] [id number] [place] [address]- 3804 Jul, [facility] [place] [facility] [address] [id number] [place] [address]- 4028 Jul, [facility] [place] [facility] [address] [id number] [place] [address]- 1289 Jul, [facility] [place] [facility] [address] [id number], [place] [address]- 0461 Jul, [facility] [place] [facility] [address] [id number] [place] [address]- 8006 Jul, [facility] [place] [facility] [address] [id number] [place] 5181 May, [facility] [place] [facility] [address] [id number] [place] [address]- 7950 May, [facility] [place] [facility] [address] [id number], [place] [address]- 3390 May, [facility] [place] [facility] [address] [id number] [place] [address]- 3277 May, [facility] [place] [facility] [address] [id number] [place] [address]- 8700 May, [facility] [place] [facility] [address] [id number] [place] [address]- 7379 May, [facility] [place] [facility] [address] [id number] [place] [address]- 4987 Mar, [facility] [place] [facility] [address] [id number] [place] [address]- 9783 Mar, [facility] [place] [facility] [address] [id number] [place] [address]- 8112 February, [facility] [place] [facility] [address] [id number] [place] [address]- 3908 February, [facility] [place] [facility] [address] [id number] [place] [address]- 6043 February, [facility] [place] [facility] [address] [id number] [place] [address]- 0455 February, [facility] [place] [facility] [address] [id number] [place] [address]- 7964 February, [facility] [place] [facility] [address] [id number] [place] [address]- 2451 February, [facility] [place] [facility] [address] [id number] [place] [address]- 6779 February, [facility] [place] [facility] [address] [id number] [place] [address]- 7598 Jan, [facility] [place] [facility] [address] [id number] [place] [address]- 4737 Jan, [facility] [place] [facility] [address] [id number] [place] [address]- 7388 Jan, [facility] [place] [facility] [address] [id number] [place] [address]- 2117 Jan, [facility] [place] [facility] [address] [id number] [place] [address]- 5028 24 Dec, 2013 [facility] [place] [facility] [address] [id number] [place] [address]- 7582 Dec, [facility] [place] [facility] [address] [id number] [place] [address]- 4699 Dec, [facility] [place] [facility] [address] [id number] [place] [address]- 9634 Dec, [facility] [place] [facility] [address] [id number] [place] [address]- 9820 Nov, [facility] [place] [facility] [address] [facility] [id number] [place] [address]- 5357 Nov, [facility] [place] [facility] [address] [id number] [place] [address]- 5508 Nov, [facility] [place] [facility] [address] [id number] [place] [address]- 9948 Nov, [facility] [place] [facility] [address] [facility] [id number] [place] [address]- 8119 Nov, [facility] [place] [facility] [address] [facility] [id number] [place] [address]- 2946 Nov, [facility] [place] [facility] [address] [id number], [place] [address]- 7724 Nov, [facility] [place] [facility] [address] [id number] [place] [address]- 8227 Nov, [facility] [place] [facility] [address] [id number] [place] [address]- 8023 Oct, [facility] [place] [facility] [address] [id number] [place] [address]- 8279 Oct, [facility] [place] [facility] [address] [facility] [id number], [place] [address]- 5330 Oct, [facility] [place] [facility] [address] [id number] [place] [address]- 3420 Oct, [facility] [place] [facility] [address] [id number] [place] [address]- 2373 Oct, [facility] [place] [facility] [address] [id number] [place] [address]- 3158 Oct, [facility] [place] [facility] [address] [id number] [place] [address]- 5695 Oct, [facility] [place] [facility] [address] [id number] [place] [address]- 9273 Oct, [facility] [place] [facility] [address] [id number] [place] [address]- 1155 Oct, [facility] [place] [facility] [address] [id number] [place] [address]- 4886 Oct, [facility] [place] [facility] [address] [id number] [place] [address]- 8431 Oct, [facility] [place] [facility] [address] [id number] [place] [address]- 2010 Aug, [facility] [place] [facility] [address] [id number] [place] [address]- 6432 Aug, [facility] [place] [facility] [address] [id number], [place] [address]- 1415 Jul, [facility] [place] [facility] [address] [id number], [place] [address]- 1016 Jul, [facility] [place] [facility] [address] [id number] [place] [address]- 3417 Jul, [facility] [place] [facility] [address] [id number] [place] [address]- 4799 Jul, [facility] [place] [facility] [address] [id number] [place] [address]- 6606 Jun, [facility] [place] [facility] [address] [id number] [place] [address]- 2181 Jun, [facility] [place] [facility] [address] [id number] [place] [address]- 3278 Jan, [facility] [place] [facility] [address] [id number] [place] [address]- 2546 Oct, [facility] [place] [facility] [address] [id number] [place] [address]- 9958 Sep, [facility] [place] [facility] [address] [id number] [place] [address]- 5776 Sep, [facility] [place] [facility] [address] [id number] [place] [address]- 4579 Sep, [facility] [place] [facility] [address] [id number] [place] [address]- 9253 Sep, [facility] [place] [facility] [address] [id number] [place] [address]- 7666 Aug, [facility] [place] [facility] [address] [id number] [place] [address]- 1839 Aug, [facility] [place] [facility] [address] [id number] [place] [address]- 8660 Aug, [facility] [place] [facility] [address] [facility] [id number] [place] [address]- 7588 Aug, [facility] [place] [facility] [address] [id number] [place] [address]- 4654 Jul, [facility] [place] [facility] [address] [id number] [place] [address]- 0799 Jul, [facility] [place] [facility] [address] [id number] [place] [address]- 9300 Jul, [facility] [place] [facility] [address] [id number] [place] [address]- 2546 Jul, [facility] [place] [facility] [address] [id number] [place] [address]- 5466 Jul, [facility] [place] [facility] [address] [id number] [place] [address]- 7964 Jun, [facility] [place] [facility] [address] [id number] [place] [address]- 4027 Jun, [facility] [place] [facility] [address] [id number] [place] [address]- 0725 Jun, [facility] [place] [facility] [address] [id number] [place] [address]- 2941 May, [facility] [place] [facility] [address] [id number] [place] [address]- 5325 May, [facility] [place] [facility] [address] [id number] [place] [address]- 6041 Apr, [facility] [place] [facility] [address] [id number] [place] [address]- 1526 Apr, [facility] [place] [facility] [address] [id number] [place] [address]- 4056 Apr, [facility] [place] [facility] [address] [id number] [place] [address]- 5841 Apr, [facility] [place] [facility] [address] [id number] [place] [address]- 8068 Mar, [facility] [place] [facility] [address] [id number] [place] [address]- 3825 Mar, [facility] [place] [facility] [address] [id number], [place] [address]- 0706 Mar, [facility] [place] [facility] [address] [id number] [place] [address]- 6978 February, [facility] [place] [facility] [address] [id number] [place] [address]- 2956 February, [facility] [place] [facility] [address] [id number] [place] [address]- 8653 February, [facility] [place] [facility] [address] [id number] [place] [address]- 0989 February, [facility] [address] [id number] [place] [address]- 8966 February, [facility] [place] [facility] [address] [id number] [place] [address]- 7959 Jan, [facility] [place] [facility] [address] [id number] [place] [address]- 6556 Jan, [facility] [place] [facility] [address] [id number] [place] [address]- 7749 Jan, [facility] [place] [facility] [address] [id number] [place] [address]- 1972 Dec, [facility] [place] [facility] [address] [id number] [place] [address]- 2369 Dec, [facility] [address] [id number] [place] [address] Dec, [facility] [place] [facility] [address] [id number] [place] [address] Nov, [facility] [place] [facility] [address] [id number] [place] [address] Nov, [facility] [place] [facility] [address] [facility] [id number] [place] [address] Nov, [facility] [place] [facility] [address] [facility] [id number] [place] [address] Nov, [facility] [place] [facility] [address] [id number] [place] [address] Oct, [facility] [place] [facility] [address] [id number] [place] [address] Oct, [facility] [place] [facility] [address] [id number] [place] [address] Sep, [facility] [place] [facility] [address] [id number] [place] [address] Sep, [facility] [place] [facility] [address] [id number] [place] [address] 14 Sep, 2011 [facility] [place] [facility] [address] [id number] [place] [address] 05 Sep, 2011 [facility] [place] [facility] [address] [id number] [place] [address] 28 Aug, 2011 [facility] [place] [facility] [address] [id number] [place] [address] Aug, [facility] [place] [facility] [address] [id number] [place] [address] Aug, [facility] [place] [facility] [address] [id number] [place] [address] Jul, [facility] [place] [facility] [address] [id number] [place] [address] Jul, [facility] [place] [facility] [address] [id number] [place] [address] Jul, [facility] [place] [facility] [address] [id number] [place] [address] May, [facility] [place] [facility] [address] [id number] [place] [address] February, [facility] [place] [facility] [address] [id number] [place] [address] 17 Nov, 2010 [facility] [place] [facility] [address] [id number], [place] [address] 14 Oct, 2010 [facility] [place] [facility] [address] [id number] [place] [address] Oct, [facility] [place] [facility] [address] [id number] [place] [address] Sep, [facility] [place] [facility] [address] [id number] [place] [address] Sep, [facility] [place] [facility] [address] [id number], [place] [address] 17 Sep, 2010 [facility] [address] [id number] [place] [address] 16 Sep, 2010 [facility] [place] [facility] [address] [id number] [place] [address] 10 Sep, 2010 [facility] [place] [facility] [address] [facility] [id number] [place] [address] 10 Sep, 2010 [facility] [place] [facility] [address] [id number] [place] [address] 29 Aug, 2010 [facility] [address] [id number] [place] [address]- [address] 23 Aug, 2010 [facility] [place] [facility] [address] [id number] [place] [address] 18 Aug, 2010 [facility] [address] [facility] [id number] [place] [address] 17 Aug, 2010 [facility] [place] [facility] [address] [id number] [place] [address] 16 Aug, 2010 [facility] [address] [facility] [id number] [place] [address] 25 Jul, 2010 [facility] [place] [facility] [address] [facility] [id number] [place] [address] 16 Jun, 2010 [facility] [place] [facility] [address] [id number], [place] [address] 15 Feb, 2010 [facility] [place] [facility] [address] [id number], [place] [address] Oct, [facility] [place] [facility] [address] [id number] [place] [address] Sep, [facility] [place] [facility] [address] [id number] [place] [address] 24 Aug, 2009 [facility] [place] [facility] [address] [facility] [id number] [place] [address] Aug, [facility] [place] [facility] [address] [id number] [address] Aug, [facility] [address] [id number], [place] [address] Jul, [facility] [id number], [place] [address] Jul, [facility] [id number], [place] [address] Jul, [facility] [id number], [place] [address] 14 Jun, 2009 [facility] [id number], [place] [address] 10 Jun, 2009 [facility] [id number], [place] [address] 16 Mar, 2009 [facility] [id number], [place] [address] Jan, [facility] [address] [id number], [place] [address] Aug, IMMUNIZATIONS No Known Immunizations SOCIAL HISTORY Never Assessed REASON FOR VISIT f/u PLAN OF CARE Activity Details Follow Up 2 Weeks Reason: VITAL SIGNS MEDICATIONS Unknown Medications RESULTS No Results PROCEDURES Procedure Date Ordered Result Body Site Psychotherapy, patient &/family, 45 minutes, established patient Jul 09, 2017 INSTRUCTIONS MEDICATIONS ADMINISTERED No Known Medications [...]
--- OUTSIDE RECORDS SUMMARY | 2018-11-13 11:58 | XMS REPORT ---
Author Author David KAREN Organization [facility] Address [address] [place] [address] Care Team Providers Care Lumber Piler Name Role Phone rolandoKAREN Ferrer Unavailable PROBLEMS Type Condition ICD9-CM Code NBQ62-GC Code Onset Dates Condition Status SNOMED Code Problem CAD (coronary artery disease) I25.10 Active 92614414 Problem Back pain M54.9 Active 001321117 Problem Depression F32.9 Active 39888861 Problem Tobacco abuse Z72.0 Active 70633770 Problem Post-traumatic stress disorder, chronic F43.12 Active 22470104 Problem Cannabis use disorder, mild, abuse F12.10 Active 50857092 Problem Borderline personality disorder F60.3 Active 03620682 Problem Hyperlipidemia E78.5 Active 88355831 Problem Bipolar affective, depress, mod F31.32 Active 454971576 Problem Carpal tunnel syndrome of right wrist G56.01 Active [id number] ALLERGIES Substance Reaction Event Type Date Status Aspir-81 nausea Drug Allergy Oct, Active IV Dye nausea Non Drug Allergy Oct, Active SOCIAL HISTORY No smoking Hx information available PLAN OF CARE Activity Details Follow Up 6 Weeks Reason: VITAL SIGNS Height 67 in 2016-11-12 Weight 166.0 lbs 2016-11-12 Heart Rate 120 bpm 2016-11-12 Respiratory Rate 20 2016-11-12 BMI 26.00 kg/m2 2016-11-12 Blood pressure systolic 103 mmHg 2016-11-12 Blood pressure diastolic 62 mmHg 2016-11-12 MEDICATIONS Medication Instructions Dosage Frequency Start Date End Date Duration Status Ibuprofen 800 MG Orally Three times a day 1 tablet 8h Aug, Active Seroquel XR 400 MG Orally Once a day TAKE ONE TABLET BY MOUTH ONCE PER DAY BETWEEN DINNER AND BEDTIME 24h Active Pravastatin Sodium 40 mg Orally Once a day 1 tablet 24h Active Pristiq 100 MG TAKE ONE TABLET BY MOUTH ONCE DAILY Active Lyrica 100 MG TAKE ONE CAPSULE BY MOUTH FOUR TIMES DAILY 30 Active RESULTS Name Result Date Reference Range CMP 2016-11-12 Glucose, Serum 85 65-99 BUN 17 6-24 Creatinine, Serum 0.81 0.57-1.00 eGFR If NonAfricn Am 81 >59 eGFR If Africn Am 93 >59 BUN/Creatinine Ratio 21 9-23 Sodium, Serum 138 134-144 Potassium, Serum 4.2 3.5-5.2 Chloride, Serum 93 96-106 Carbon Dioxide, Total 22 18-29 Calcium, Serum 10.3 8.7-10.2 Protein, Total, Serum 8.1 6.0-8.5 Albumin, Serum 5.0 3.5-5.5 Globulin, Total 3.1 1.5-4.5 A/G Ratio 1.6 1.1-2.5 Bilirubin, Total 0.3 0.0-1.2 Alkaline Phosphatase, S 94 39-117 AST (SGOT) 15 0-40 ALT (SGPT) 10 0-32 LIPID PANEL 2016-11-12 Cholesterol, Total 247 100-199 Triglycerides 169 0-149 HDL Cholesterol 40 >39 VLDL Cholesterol Andrea 34 5-40 LDL Cholesterol Calc 173 0-99 Comment: PROCEDURES Procedure Date Ordered Related Diagnosis Body Site MH Office Visit, Est Pt., Level 3 Nov 12, 2016 COMPREHEN METABOLIC PANEL Nov 12, 2016 VENIPUNCT, ROUTINE* Nov 12, 2016 LIPID PANEL Nov 12, 2016 IMMUNIZATIONS No Known Immunizations
--- OUTSIDE RECORDS SUMMARY | 2018-11-13 11:59 | XMS REPORT ---
Author Author David KAREN [facility] Address [address] [place] [address] Care Team Providers Care Interchange Agent Name Role Phone DavidJELLYY Unavailable PROBLEMS Type Condition ICD9-CM Code MMQ39-AD Code Onset Dates Condition Status SNOMED Code Problem CAD (coronary artery disease) I25.10 Active 79143078 Problem Back pain M54.9 Active 191709486 Problem Depression F32.9 Active 54342207 Problem Tobacco abuse Z72.0 Active 89316494 Problem Post-traumatic stress disorder, chronic F43.12 Active 76836278 Problem Cannabis use disorder, mild, abuse F12.10 Active 00594520 Problem Borderline personality disorder F60.3 Active 95049770 Problem Hyperlipidemia E78.5 Active 91775547 Problem Bipolar affective, depress, mod F31.32 Active 914237296 Problem Carpal tunnel syndrome of right wrist G56.01 Active [id number] ALLERGIES No Information SOCIAL HISTORY Never Assessed PLAN OF CARE Activity Details Follow Up 2 Months Reason: VITAL SIGNS Height 67 in 2016-12-19 Weight 169.7 lbs 2016-12-19 Heart Rate 100 bpm 2016-12-19 Respiratory Rate 22 2016-12-19 BMI 26.58 kg/m2 2016-12-19 Blood pressure systolic 124 mmHg 2016-12-19 Blood pressure diastolic 78 mmHg 2016-12-19 MEDICATIONS Medication Instructions Dosage Frequency Start Date End Date Duration Status QUEtiapine Fumarate ER 300 MG Orally Once a day 1 tablet every nicolas (+200mg tab) 24h Nov, 30 day(s) Active Lyrica 100 MG TAKE ONE CAPSULE BY MOUTH FOUR TIMES DAILY 30 Active QUEtiapine Fumarate ER 200 MG Orally Once a day 1 tablet every nicolas (+300mg tab) 24h Nov, 30 day(s) Active Pristiq 100 MG TAKE ONE TABLET BY MOUTH ONCE DAILY Active Pravastatin Sodium 40 mg Orally Once a day 1 tablet 24h Active Ibuprofen 800 MG Orally Three times a day 1 tablet 8h 29 Aug, 2016 Active RESULTS No Results PROCEDURES No Known [...]
--- OUTSIDE RECORDS SUMMARY | 2018-11-13 11:59 | XMS REPORT ---
Author Author MARIMAR JONES Organization [facility] [place] Address [address] [place] [address] Care Team Providers Care Roustabout Crew Leader Name Role Phone MARIMAR JONES Unavailable PROBLEMS Type Condition ICD9-CM Code BNV75-PA Code Onset Dates Condition Status SNOMED Code Problem Borderline personality disorder F60.3 Active 21891567 Problem Post-traumatic stress disorder, chronic F43.12 Active 38780097 Problem Carpal tunnel syndrome of right wrist G56.01 Active 472964553715050 Problem PAD (peripheral artery disease) I73.9 Active 919921954 Problem Anxiety F41.9 Active 60625677 Problem Cannabis use disorder, mild, abuse F12.10 Active 23657437 Problem Bipolar affective, depress, mod F31.32 Active 774555297 Problem Fibromyalgia M79.7 Active 713204836 Problem Cervical radiculopathy M54.12 Active 88065788 Problem CAD (coronary artery disease) I25.10 Active 23329099 Problem Depression F32.9 Active 45779935 Problem Back pain M54.9 Active 706041857 Problem Tobacco abuse Z72.0 Active 35298012 Problem Hyperlipidemia E78.5 Active 71692776 ALLERGIES No Information ENCOUNTERS Encounter Location Date Diagnosis [facility] [place] [id number] [place] [address] 20578- 0077 Jul, [facility] [place] [id number] [place] [address] 93606- 1567 Jul, Hoarseness, persistent R49.0 [place] [id number] [place] [address] 49061- 4465 Jul, [facility] [place] [id number] [place] [address] 75877- 5041 08 Jul, 2018 Dental abscess K04.7 ; Cervical radiculopathy M54.12 and Allergic state, initial encounter T78.40XA [place] [id number] [place] [address] 62426- 7747 Jul, [place] [id number] [place] [address] 78730- 7445 May, [place] [id number] [place] [address] 44612- 7228 May, [place] [address] 26175- 2110 Apr, Post-traumatic stress disorder, chronic F43.12 ; Bipolar affective, depress, mod F31.32 ; Borderline personality disorder F60.3 and Cannabis use disorder, mild, abuse F12.10 [place] [id number] [place] [address] 61819- 7354 Apr, Cervical radiculopathy M54.12 ; Back pain M54.9 ; Fibromyalgia M79.7 and High risk heterosexual behavior Z72.51 [place] [id number] [place] [address] 66629- 6109 Apr, [place] [id number] [place] [address] 40449- 0635 Mar, Bipolar affective, depress, mod F31.32 ; Post-traumatic stress disorder, chronic F43.12 ; Borderline personality disorder F60.3 and Cannabis use disorder, mild, abuse F12.10 [place] [id number] [place] [address] 62834- 9874 Mar, Tobacco abuse Z72.0 [place] [id number] [place] [address] 39230- 9794 Mar, [place] [id number] [place] [address] 18557- 6337 February, Fibromyalgia M79.7 [place] [id number] [place] [address] 52955- 4881 Jan, Post-traumatic stress disorder, chronic F43.12 ; Bipolar affective, depress, mod F31.32 ; Borderline personality disorder F60.3 and Cannabis use disorder, mild, abuse F12.10 [facility] [place] [id number] [place] [address] 56184- 9455 Jan, [facility] [place] [id number] [place] [address] 37152- 8332 Dec, Bipolar affective, depress, mod F31.32 ; Post-traumatic stress disorder, chronic F43.12 ; Borderline personality disorder F60.3 and Cannabis use disorder, mild, abuse F12.10 [place] [address] [place] [address] 52243- 7351 Dec, Hoarseness R49.0 ; Bronchitis J40 ; PAD (peripheral artery disease) I73.9 and Tobacco abuse Z72.0 [place] [id number] [place] [address] 76040- 8733 Nov, Bipolar affective, depress, mod F31.32 ; Post-traumatic stress disorder, chronic F43.12 ; Borderline personality disorder F60.3 and Cannabis use disorder, mild, abuse F12.10 [place] [id number] [place] [address] 88058- 0545 Oct, Post-traumatic stress disorder, chronic F43.12 ; Bipolar affective, depress, mod F31.32 ; Borderline personality disorder F60.3 and Cannabis use disorder, mild, abuse F12.10 [place] [id number] [place] [address] 35530- 4931 Oct, Bipolar affective, depress, mod F31.32 ; Post-traumatic stress disorder, chronic F43.12 and Borderline personality disorder F60.3 [place] [id number] [place] [address] 90786- 3039 Sep, Anxiety F41.9 [place] [id number] [place] [address] 6161 Aug, Bipolar affective, depress, mod F31.32 ; Post-traumatic stress disorder, chronic F43.12 and Borderline personality disorder F60.3 [place] [id number] [place] [address] 29736- 9650 Aug, Bipolar affective, depress, mod F31.32 ; Post-traumatic stress disorder, chronic F43.12 and Borderline personality disorder F60.3 [place] [id number] [place] [address] 48637- 3448 Aug, Fibromyalgia M79.7 ; Back pain M54.9 and Cervical radiculopathy M54.12 [place] [id number] [place] [address] 23228- 3547 Aug, Bipolar affective, depress, mod F31.32 and Post-traumatic stress disorder, chronic F43.12 [place] [id number] [place] [address] 18404- 9667 Jul, Depression F32.9 ; Borderline personality disorder F60.3 and Bipolar affective, depress, mod F31.32 [place] [id number] [place] [address] 18539- 9275 Jul, Post-traumatic stress disorder, chronic F43.12 ; Bipolar affective, depress, mod F31.32 ; Borderline personality disorder F60.3 and Cannabis use disorder, mild, abuse F12.10 [place] [id number] [place] [address] 62395- 4691 Jul, Other fci (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.899 [place] [id number] [place] [address] 64121- 8482 Jun, [place] [id number] [place] [address] 58829- 8618 28 Jun, 2017 Depression F32.9 ; Borderline personality disorder F60.3 and Bipolar affective, depress, mod F31.32 [place] [id number] [place] [address] 95391- 1157 13 Jun, 2017 Depression F32.9 and Borderline personality disorder F60.3 [place] [id number] [place] [address] 79802- 0335 May, Post-traumatic stress disorder, chronic F43.12 [place] [id number] [place] [address] 48733- 7018 May, Depression F32.9 and Borderline personality disorder F60.3 [place] [id number] [place] [address] 65261- 0483 Apr, Post-traumatic stress disorder, chronic F43.12 ; Bipolar affective, depress, mod F31.32 ; Borderline personality disorder F60.3 ; Other fci (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.899 and Cannabis use disorder, mild, abuse F12.10 [place] [address] 60696- 3794 Apr, Depression F32.9 and Borderline personality disorder F60.3 [place] [address] 00201- 1907 Apr, Depression F32.9 and Borderline personality disorder F60.3 [place] [id number] [place] [address] 08691- 8419 Mar, Depression F32.9 and Borderline personality disorder F60.3 [place] [address] 30605- 9120 February, Depression F32.9 and Borderline personality disorder F60.3 [place] [id number] [place] [address] 14314- 3839 February, Back pain M54.9 [place] [id number] [place] [address] 37444- 7246 February, Depression F32.9 and Borderline personality disorder F60.3 [place] [address] 84558- 3866 February, Post-traumatic stress disorder, chronic F43.12 ; Borderline personality disorder F60.3 and Bipolar affective disorder, depressed, mild F31.31 [place] [address] 86786- 3732 February, [facility] [place] [id number] [place] [address] 81365- 8345 February, Depression F32.9 and Borderline personality disorder F60.3 [facility] [place] [id number] [place] [address] 73859- 4487 Jan, [place] [address] 721040- 9182 Jan, Depression F32.9 and Borderline personality disorder F60.3 [place] [id number] [place] [address] 22957- 9454 Jan, Acute lateral meniscus tear of right knee, initial encounter S83.281A [place] [id number] [place] [address] 86022- 6562 Jan, Depression F32.9 and Borderline personality disorder F60.3 [place] [id number] [place] [address] 52130- 6438 Dec, Depression F32.9 and Borderline personality disorder F60.3 [place] [id number] [place] [address] 50404- 4420 Dec, Depression F32.9 and Borderline personality disorder F60.3 [place] [id number] [place] [address] 04174- 9291 Nov, Hyperlipidemia E78.5 ; Knee locking, right M23.91 and Carpal tunnel syndrome of right wrist G56.01 [place] [id number] [place] [address] 67616- 9256 23 Nov, 2016 Bipolar affective, depress, mod F31.32 ; Post-traumatic stress disorder, chronic F43.12 and Borderline personality disorder F60.3 [place] [id number] [place] [address] 16231- 7147 16 Nov, 2016 Depression F32.9 and Borderline personality disorder F60.3 [place] [id number] [place] [address] 85325- 9683 Oct, Post-traumatic stress disorder, chronic F43.12 and Other fci (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.899 [place] [id number] [place] [address] 96174- 8226 Oct, Nondisplaced fracture of distal end of right radius with routine healing, subsequent encounter S52.501D [place] [id number] [place] [address] 40781- 0104 Sep, [place] [id number] [place] [address] 39472- 6067 Aug, Right wrist fracture, closed, initial encounter S62.101A [place] [id number] [place] [address] 70012- 9735 Aug, [place] [id number] [place] [address] 30772- 3013 Jul, Back pain M54.9 and Hyperlipidemia E78.5 [place] [id number] [place] [address] 45945- 1481 Jul, Post-traumatic stress disorder, chronic F43.12 and Other fci (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.899 [place] [address] [place] [address] 93692- 4628 Apr, Bipolar affective, depress, mod F31.32 ; Post-traumatic stress disorder, chronic F43.12 and Other fci (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.899 [place] [address] [address]- 0518 Mar, [place] [id number] [place] [address] 23666- 9838 Jan, Post-traumatic stress disorder, chronic F43.12 and Depression F32.9 [facility] [place] [id number] [place] [address] 45216- 9250 Dec, [place] [id number] [place] [address] 19804- 4542 15 Nov, 2015 Shoulder pain, left M25.512 and Bronchitis J40 [place] [address] 29297- 7383 Sep, Hyperlipidemia E78.5 [place] [address] 13786- 4762 Sep, Hyperlipidemia E78.5 [place] [address] 98905- 6069 Sep, [place] [address] 78624- 2825 Sep, Back pain M54.9 ; CAD (coronary artery disease) I25.10 and Depression F32.9 [place] [address] 28960- 8599 Sep, URI (upper respiratory infection) J06.9 ; Nausea & vomiting R11.2 and Tobacco abuse Z72.0 [place] [address] 99328- 4610 Mar, Posttraumatic stress disorder 309.81 ; Major depressive disorder, recurrent episode, in partial remission 296.35 ; Nightmares associated with chronic post-traumatic stress disorder 307.47 ; Thoracic or lumbosacral neuritis or radiculitis, unspecified 724.4 ; Borderline personality disorder 301.83 and High risk medication use V58.69 [place] [id number] [place] [address] 22893- 3815 Jan, [place] [id number] [place] [address] 66527- 1961 Jan, [place] [address] 91410- 6145 Dec, [place] [address] 62851- 4917 Dec, [place] [address] 71768- 2328 Sep, [facility] [place] [facility] [address] [id number] [place] 6732 Sep, [facility] [place] [facility] [address] [id number] [place] [address]- 4560 Sep, [facility] [place] [facility] [address] [id number] [place] [address]- 9953 Sep, [facility] [place] [facility] [address] [id number] [place] [address]- 6061 Sep, [facility] [place] [facility] [address] [id number] [place] [address]- 8798 Jul, [facility] [place] [facility] [address] [id number] [place] [address]- 8735 Jul, [facility] [place] [facility] [address] [id number] [place] [address]- 3521 Jul, [facility] [place] [facility] [address] [id number] [place] [address]- 2837 Jul, [facility] [place] [facility] [address] [id number] [place] [address]- 0846 Jul, [facility] [place] [facility] [address] [id number] [place] [address]- 8699 Jul, [facility] [place] [facility] [address] [id number] [place] [address]- 2650 Jul, [facility] [place] [facility] [address] [id number] [place] [address]- 8900 Jul, [facility] [place] [facility] [address] [id number] [place] [address]- 9060 May, [facility] [place] [facility] [address] [id number] [place] [address]- 5824 May, [facility] [place] [facility] [address] [id number] [place] [address]- 1302 May, [facility] [place] [facility] [address] [id number] [place] [address]- 3059 May, [facility] [place] [facility] [address] [id number] [place] [address]- 2258 May, [facility] [place] [facility] [address] [id number] [place] [address]- 6388 May, [facility] [place] [facility] [address] [id number] [place] [address]- 2998 Mar, [facility] [place] [facility] [address] [id number] [place] [address]- 7371 Mar, [facility] [place] [facility] [address] [id number] [place] [address]- 6768 February, [facility] [place] [facility] [address] [id number] [place] [address]- 3878 February, [facility] [place] [facility] [address] [id number] [place] [address]- 4010 February, [facility] [address] [id number] [place] [address]- 4034 February, [facility] [place] [facility] [address] [id number] [place] [address]- 6957 February, [facility] [address] [id number] [place] [address]- 0299 February, [facility] [place] [facility] [address] [id number] [place] [address]- 7033 February, [facility] [place] [facility] [address] [id number] [place] [address]- 0925 Jan, [facility] [place] [facility] [address] [id number] [place] [address]- 5906 Jan, [facility] [place] [facility] [address] [id number] [place] [address]- 4125 Jan, [facility] [place] [facility] [address] [id number] [place] [address]- 4101 Jan, [facility] [place] [facility] [address] [id number] [place] [address]- 9253 Dec, [facility] [place] [facility] [address] [id number] [place] [address]- 0850 Dec, [facility] [place] [facility] [address] [id number] [place] [address]- 5678 Dec, [facility] [place] [facility] [address] [id number] [place] [address]- 2877 Dec, [facility] [place] [facility] [address] [id number] [place] [address]- 8872 Nov, [facility] [place] [facility] [address] [id number] [place] [address]- 8126 Nov, [facility] [place] [facility] [address] [id number] [place] [address]- 6503 Nov, [facility] [place] [facility] [address] [id number] [place] [address]- 3189 Nov, [facility] [place] [facility] [address] [id number] [place] [address]- 7603 Nov, [facility] [place] [facility] [address] [id number] [place] [address]- 5825 Nov, [facility] [place] [facility] [address] [id number] [place] [address]- 0252 Nov, [facility] [place] [facility] [address] [id number] [place] [address]- 1833 Nov, [facility] [place] [facility] [address] [id number] [place] [address]- 7882 Oct, [facility] [place] [facility] [address] [id number] [place] [address]- 0156 Oct, [facility] [place] [facility] [address] [id number] [place] [address]- 6756 Oct, [facility] [place] [facility] [address] [id number] [place] [address]- 5971 Oct, [facility] [address] [id number] [place] [address]- 5813 Oct, [facility] [place] [facility] [address] [id number] [place] [address]- 0501 Oct, [facility] [address] [id number] [place] [address]- 5382 Oct, [facility] [place] [facility] [address] [id number] [place] [address]- 5712 Oct, [facility] [address] [id number] [place] [address]- 8654 Oct, [facility] [address] [id number] [place] [address]- 9683 Oct, [facility] [address] [id number] [place] [address]- 7529 Oct, [facility] [address] [id number] [place] [address]- 8870 Aug, [facility] [address] [id number] [place] [address]- 1799 Aug, [facility] [address] [id number] [place] [address]- 2833 Jul, [facility] [place] [facility] [address] [id number] [place] [address]- 1787 Jul, [facility] [place] [facility] [address] [id number] [place] [address]- 4782 Jul, [facility] [place] [facility] [address] [id number] [place] [address]- 9809 24 Jul, 2013 [facility] [place] [facility] [address] [id number] [place] [address]- 1168 27 Jun, 2013 [facility] [place] [facility] [address] [id number] [place] [address]- 2223 Jun, [facility] [place] [facility] [address] [id number] [place] [address]- 0857 Jan, [facility] [place] [facility] [address] [id number] [place] [address]- 8837 Oct, [facility] [place] [facility] [address] [id number] [place] 6465 Sep, [facility] [place] [facility] [address] [id number] [place] [address]- 1321 Sep, [facility] [place] [facility] [address] [id number] [place] 5968 Sep, [facility] [place] [facility] [address] [id number] [place] [address]- 6054 Sep, [facility] [place] [facility] [address] [id number] [place] [address]- 3137 Aug, [facility] [place] [facility] [address] [id number], [place] [address]- 1909 Aug, [facility] [place] [facility] [address] [id number] [place] [address]- 9597 Aug, [facility] [place] [facility] [address] [facility] [id number], [place] [address]- 2771 Aug, [facility] [place] [facility] [address] [facility] [id number], [place] [address]- 2820 Jul, [facility] [place] [facility] [address] [id number], [place] [address]- 0371 Jul, [facility] [place] [facility] [address] [id number], [place] [address]- 6555 Jul, [facility] [place] [facility] [address] [id number], [place] [address]- 9826 Jul, [facility] [place] [facility] [address] [facility] [id number], [place] [address]- 3802 Jul, [facility] [place] [facility] [address] [id number], [place] [address]- 0388 Jun, [facility] [place] [facility] [address] [id number] [place] [address]- 8755 Jun, [facility] [place] [facility] [address] [id number] [place] [address]- 5646 Jun, [facility] [place] [facility] [address] [id number] [place] [address]- 1873 May, [facility] [place] [facility] [address] [id number] [place] [address]- 9720 May, [facility] [place] [facility] [address] [id number] [place] [address]- 4257 Apr, [facility] [place] [facility] [address] [id number] [place] [address]- 1404 Apr, [facility] [address] [id number] [place] [address]- 3283 Apr, [facility] [place] [facility] [address] [id number] [place] [address]- 4739 Apr, [facility] [place] [facility] [address] [id number] [place] [address]- 0148 Mar, [facility] [place] [facility] [address] [id number] [place] [address] Mar, [facility] [place] [facility] [address] [id number] [place] [address] Mar, [facility] [place] [facility] [address] [id number] [place] [address] February, [facility] [place] [facility] [address] [id number] [place] [address] February, [facility] [place] [facility] [address] [id number] [place] [address] February, [facility] [place] [facility] [address] [id number] [place] [address] February, [facility] [place] [facility] [address] [id number] [place] [address] February, [facility] [place] [facility] [address] [id number] [place] [address] Jan, [facility] [place] [facility] [address] [id number] [place] [address] Jan, [facility] [place] [facility] [address] [id number] [place] [address] Jan, [facility] [place] [facility] [address] [id number] [place] [address] Dec, [facility] [place] [facility] [address] [id number] [place] [address] Dec, [facility] [place] [facility] [address] [id number] [place] [address] Dec, [facility] [place] [facility] [address] [id number] [place] [address] Nov, [facility] [place] [facility] [address] [id number] [place] [address]- [address] Nov, [facility] [place] [facility] [address] [id number] [place] [address] Nov, [facility] [place] [facility] [address] [id number] [place] [address]- [address] Nov, [facility] [place] [facility] [address] [id number] [place] [address] Oct, [facility] [place] [facility] [address] [id number] [place] [address] Oct, [facility] [place] [facility] [address] [id number] [place] [address] Sep, [facility] [place] [facility] [address] [id number] [place] [address] Sep, [facility] [place] [facility] [address] [id number] [place] [address]- [address] 14 Sep, 2011 [facility] [place] [facility] [address] [id number] [place] [address]- [address] 05 Sep, 2011 [facility] [place] [facility] [address] [id number] [place] [address] Aug, [facility] [place] [facility] [address] [id number] [place] [address] Aug, [facility] [place] [facility] [address] [id number] [place] [address] Aug, [facility] [place] [facility] [address] [id number] [place] [address] Jul, [facility] [place] [facility] [address] [id number] [place] [address] Jul, [facility] [place] [facility] [address] [id number] [place] [address] Jul, [facility] [place] [facility] [address] [id number] [place] [address] May, [facility] [place] [facility] [address] [id number] [place] [address] February, [facility] [place] [facility] [address] [id number] [place] [address] Nov, [facility] [place] [facility] [address] [id number] [place] [address] Oct, [facility] [place] [facility] [address] [id number] [place] [address] Oct, [facility] [place] [facility] [address] [id number] [place] [address] Sep, [facility] [place] [facility] [address] [id number] [place] [address] Sep, [facility] [place] [facility] [address] [id number] [place] [address] Sep, [facility] [place] [facility] [address] [id number] [place] [address] 16 Sep, 2010 [facility] [address] [id number] [place] [address] 10 Sep, 2010 [facility] [address] [id number] [place] [address] 10 Sep, 2010 [facility] [address] [id number] [place] [address] 29 Aug, 2010 [facility] [address] [id number] [place] [address] 23 Aug, 2010 [facility] [address] [id number] [place] [address] 18 Aug, 2010 [facility] [address] [id number] [place] [address] 17 Aug, 2010 [facility] [address] [id number] [place] [address] 16 Aug, 2010 [facility] [address] [id number] [place] [address] 25 Jul, 2010 [facility] [address] [id number] [place] [address] 16 Jun, 2010 [facility] [address] [facility] [id number] [place] [address] February, [facility] [address] [id number] [place] [address] Oct, [facility] [address] [id number] [place] [address] Sep, [facility] [place] [facility] [address] [id number] [place] [address] Aug, [facility] [address] [id number] [place] [address] Aug, [facility] [address] [id number] [place] Aug, [facility] [place] [address] [id number] [address] Jul, [facility] [place] [id number] [place] [address] Jul, [facility] [place] [id number] [address] Jul, [facility] [place] [id number] [address] 14 Jun, 2009 [facility] [place] [id number] [address] 10 Jun, 2009 [facility] [place] [id number] [place] [address] 16 Mar, 2009 [facility] [place] [id number], [place] [address] Jan, [facility] [place] [id number] [address] Aug, IMMUNIZATIONS No Known Immunizations SOCIAL HISTORY Never Assessed REASON FOR VISIT Routine nurse call PLAN OF CARE VITAL SIGNS MEDICATIONS Unknown [...]
--- OUTSIDE RECORDS SUMMARY | 2018-11-13 11:59 | XMS REPORT ---
Author Author MARIMAR JONES Organization [facility] Address [address] [place] [address] Care Team Providers Care Chief Airport Guide Name Role Phone MARIMAR JONES Unavailable PROBLEMS Type Condition ICD9-CM Code [id number] Code Onset Dates Condition Status SNOMED Code Problem Borderline personality disorder F60.3 Active 06601257 Problem Post-traumatic stress disorder, chronic F43.12 Active 44530118 Problem Carpal tunnel syndrome of right wrist G56.01 Active 831499003392102 Problem PAD (peripheral artery disease) I73.9 Active 390467619 Problem Anxiety F41.9 Active 64985054 Problem Cannabis use disorder, mild, abuse F12.10 Active 99574133 Problem Bipolar affective, depress, mod F31.32 Active 849716575 Problem Fibromyalgia M79.7 Active 932633233 Problem Cervical radiculopathy M54.12 Active 05296181 Problem CAD (coronary artery disease) I25.10 Active 74576119 Problem Depression F32.9 Active 46069409 Problem Back pain M54.9 Active 580297337 Problem Tobacco abuse Z72.0 Active 84817373 Problem Hyperlipidemia E78.5 Active 10590668 ALLERGIES No Information ENCOUNTERS Encounter Location Date Diagnosis [facility] [id number] [place] [address] 18586- 1492 Jul, [facility] [address] [place] [address] 15643- 2853 Jul, Dental abscess K04.7 ; Cervical radiculopathy M54.12 and Allergic state, initial encounter T78.40XA [facility] [address] [place] [address] 42376- 3162 Jul, [facility] [address] [place] [address] 44277- 9071 May, [place] [address] [address] [id number] [place] [address] 51546- 3088 May, [place] [address] 52367- 6324 Apr, Post-traumatic stress disorder, chronic F43.12 ; Bipolar affective, depress, mod F31.32 ; Borderline personality disorder F60.3 and Cannabis use disorder, mild, abuse F12.10 [place] [address] 00990- 8539 Apr, Cervical radiculopathy M54.12 ; Back pain M54.9 ; Fibromyalgia M79.7 and High risk heterosexual behavior Z72.51 [place] [address] [address] [id number] [place] [address] 34993- 0666 Apr, [place] [address] 76447- 7108 Mar, Bipolar affective, depress, mod F31.32 ; Post-traumatic stress disorder, chronic F43.12 ; Borderline personality disorder F60.3 and Cannabis use disorder, mild, abuse F12.10 [place] [address] 68841- 8339 Mar, Tobacco abuse Z72.0 [place] [address] [address] [id number] [place] [address] 76529- 9226 Mar, [place] [address] [id number] [place] [address] 57842- 3204 February, Fibromyalgia M79.7 [place] [address] [id number] [place] [address] 43305- 6405 Jan, Post-traumatic stress disorder, chronic F43.12 ; Bipolar affective, depress, mod F31.32 ; Borderline personality disorder F60.3 and Cannabis use disorder, mild, abuse F12.10 [place] [address] [id number] [place] [address] 48213- 4034 Jan, [place] [address] [id number]- 0806 Dec, Bipolar affective, depress, mod F31.32 ; Post-traumatic stress disorder, chronic F43.12 ; Borderline personality disorder F60.3 and Cannabis use disorder, mild, abuse F12.10 [place] [address] [place] [address] 49513- 2380 Dec, Hoarseness R49.0 ; Bronchitis J40 ; PAD (peripheral artery disease) I73.9 and Tobacco abuse Z72.0 [place] [address] [id number] [place] [address]761 Nov, Bipolar affective, depress, mod F31.32 ; Post-traumatic stress disorder, chronic F43.12 ; Borderline personality disorder F60.3 and Cannabis use disorder, mild, abuse F12.10 [place] [address] [id number] [place] [address] 66779- 6142 Oct, Post-traumatic stress disorder, chronic F43.12 ; Bipolar affective, depress, mod F31.32 ; Borderline personality disorder F60.3 and Cannabis use disorder, mild, abuse F12.10 [place] [address] [place] [address] 87810- 4425 Oct, Bipolar affective, depress, mod F31.32 ; Post-traumatic stress disorder, chronic F43.12 and Borderline personality disorder F60.3 [place] [address] [place] [address] 83124- 8382 Sep, Anxiety F41.9 [place] [address] [id number] [place] [address]- 6095 Aug, Bipolar affective, depress, mod F31.32 ; Post-traumatic stress disorder, chronic F43.12 and Borderline personality disorder F60.3 [place] [address] [id number] [place] [address]- 9250 Aug, Bipolar affective, depress, mod F31.32 ; Post-traumatic stress disorder, chronic F43.12 and Borderline personality disorder F60.3 [place] [address] [id number] [place] [address]- 1578 Aug, Fibromyalgia M79.7 ; Back pain M54.9 and Cervical radiculopathy M54.12 [place] [address] [id number] [place]- 561 Aug, Bipolar affective, depress, mod F31.32 and Post-traumatic stress disorder, chronic F43.12 [place] [address] 66041- 3401 Jul, Depression F32.9 ; Borderline personality disorder F60.3 and Bipolar affective, depress, mod F31.[address] 845496- 0028 Jul, Post-traumatic stress disorder, chronic F43.12 ; Bipolar affective, depress, mod F31.32 ; Borderline personality disorder F60.3 and Cannabis use disorder, mild, abuse F12.10 [place] [address] [place] [id number]- 2391 Jul, Other usp (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.899 [place] [address] 902820- 6169 Jun, [place] [address] 83368- 0780 Jun, Depression F32.9 ; Borderline personality disorder F60.3 and Bipolar affective, depress, mod F31.32 [place] [address] [id number] [place] [address] 27663- 4004 Jun, Depression F32.9 and Borderline personality disorder F60.3 [place] [address] [place] 33905491- 7571 May, Post-traumatic stress disorder, chronic F43.12 [place] [address] 07971- 7017 May, Depression F32.9 and Borderline personality disorder F60.3 [place] [address] [place] [address] 16657- 9971 Apr, Post-traumatic stress disorder, chronic F43.12 ; Bipolar affective, depress, mod F31.32 ; Borderline personality disorder F60.3 ; Other usp (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.899 and Cannabis use disorder, mild, abuse F12.10 [place] [address] [id number] [place] [address] 26266- 2795 Apr, Depression F32.9 and Borderline personality disorder F60.3 [place] [address] [address] [id number] [place] [address] 50793- 6680 Apr, Depression F32.9 and Borderline personality disorder F60.3 [place] [address] [id number] [place] [address] 26045- 1552 Mar, Depression F32.9 and Borderline personality disorder F60.3 [place] [address] [id number] [place] [address] 35826- 2656 February, Depression F32.9 and Borderline personality disorder F60.3 [place] [address] [id number] [place] [address] 20083- 3100 February, Back pain M54.9 [place] [address] [id number] [place] [address] 67584- 3240 February, Depression F32.9 and Borderline personality disorder F60.3 [place] [address] [id number] [place] [address] 97923- 1596 February, Post-traumatic stress disorder, chronic F43.12 ; Borderline personality disorder F60.3 and Bipolar affective disorder, depressed, mild F31.31 [place] [address] [id number] [place] [address] 82352- 9312 February, [place] [address] [id number] [place] [address] 66791- 6216 February, Depression F32.9 and Borderline personality disorder F60.3 [place] [address] [address] [id number] [place] [address] 34539- 7501 Jan, [facility] [address] [place] [address] 13956- 7848 Jan, Depression F32.9 and Borderline personality disorder F60.3 [place] [address] [place] [address] 14959- 9143 Jan, Acute lateral meniscus tear of right knee, initial encounter S83.281A [place] [address] [id number] [place] [address] 55478- 7872 Jan, Depression F32.9 and Borderline personality disorder F60.3 [place] [address] [id number] [place] [address] 60661- 3217 Dec, Depression F32.9 and Borderline personality disorder F60.3 [place] [address] [id number] [place] [address] 23885- 2233 Dec, Depression F32.9 and Borderline personality disorder F60.3 [place] [address] [place] [address] 38093- 7184 Nov, Hyperlipidemia E78.5 ; Knee locking, right M23.91 and Carpal tunnel syndrome of right wrist G56.01 [place] [address] [place] [address] 18314- 4665 23 Nov, 2016 Bipolar affective, depress, mod F31.32 ; Post-traumatic stress disorder, chronic F43.12 and Borderline personality disorder F60.3 [place] [address] [place] [address] 84569- 7105 Nov, Depression F32.9 and Borderline personality disorder F60.3 [place] [address] [address] [id number] [place] [address] 69866- 7231 Oct, Post-traumatic stress disorder, chronic F43.12 and Other usp (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.899 [place] [address] [address] [id number] [place] [address] 56716- 3260 Oct, Nondisplaced fracture of distal end of right radius with routine healing, subsequent encounter S52.501D [place] [address] [id number] [place] [address] 23440- 0097 Sep, [place] [address] [address] [id number] [place] [address] 11496- 2280 Aug, Right wrist fracture, closed, initial encounter S62.101A [place] [address] 95213- 5779 Aug, [place] [address] 86618- 7431 Jul, Back pain M54.9 and Hyperlipidemia E78.5 [place] [address] 87202- 9086 Jul, Post-traumatic stress disorder, chronic F43.12 and Other usp (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.899 [place] [address] 49105- 3773 Apr, Bipolar affective, depress, mod F31.32 ; Post-traumatic stress disorder, chronic F43.12 and Other intermediate frame tender (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.899 [place] [address] [address] [id number] [place] [address] 35101- 1181 Mar, [place] [address] [address] [id number] [place] [address] 66335- 7066 Jan, Post-traumatic stress disorder, chronic F43.12 and Depression F32.9 [place] [address] [address] [id number] [place] [address] 68037- 0652 Dec, [place] [address] 56735- 0688 15 Nov, 2015 Shoulder pain, left M25.512 and Bronchitis J40 [place] [address] [address] [id number] [place] [address] 26524- 7947 17 Sep, 2015 Hyperlipidemia E78.5 [place] [address] [address] [id number] [place] [address] 88503- 3723 Sep, Hyperlipidemia E78.5 [facility] [address] 47551- 7434 Sep, [facility] [address] [id number] [place] [address] 25953- 9913 15 Sep, 2015 Back pain M54.9 ; CAD (coronary artery disease) I25.10 and Depression F32.9 [facility] [address] 11784- 4829 Sep, URI (upper respiratory infection) J06.9 ; Nausea & vomiting R11.2 and Tobacco abuse Z72.0 [place] [address] 04444- 4142 Mar, Posttraumatic stress disorder 309.81 ; Major depressive disorder, recurrent episode, in partial remission 296.35 ; Nightmares associated with chronic post-traumatic stress disorder 307.47 ; Thoracic or lumbosacral neuritis or radiculitis, unspecified 724.4 ; Borderline personality disorder 301.83 and High risk medication use V58.69 [place] [address] [address] [id number] [place] [address] 38143- 3213 Jan, [facility] [address] [id number] [place] [address] 86408- 1665 Jan, [facility] [id number] [place] [address] 46550- 1699 Dec, [facility] [address] [id number] [place] [address] 10352- 2305 Dec, [facility] [address] 24535- 3433 Sep, [facility] [address] 42041- 9487 Sep, [facility] [address] 34781- 9155 Sep, [facility] [place] [facility] [address] [id number] [place] [address]- 6679 Sep, [facility] [place] [facility] [address] [id number] [place] 3787 Sep, [facility] [place] [facility] [address] [id number] [place] [address]- 3117 Jul, [facility] [place] [facility] [address] [id number] [place] [address]- 2458 Jul, [facility] [place] [facility] [address] [id number] [place] [address]- 3743 Jul, [facility] [place] [facility] [address] [id number] [place] [address]- 0845 Jul, [facility] [place] [facility] [address] [id number] [place] [address]- 7053 Jul, [facility] [place] [facility] [address] [id number] [place] [address]- 9113 Jul, [facility] [place] [facility] [address] [id number] [place] [address]- 1010 Jul, [facility] [place] [facility] [address] [id number] [place] [address]- 5200 Jul, [facility] [place] [facility] [address] [id number] [address]- 3044 May, [facility] [place] [facility] [address] [id number] [address]- 5510 May, [facility] [place] [facility] [address] [id number] [place] [address]- 7658 May, [facility] [place] [facility] [address] [id number] [place] [address]- 9520 May, [facility] [place] [facility] [address] [id number], [place] [address]- 3826 May, [facility] [place] [facility] [address] [id number], [place] [address]- 0525 May, [facility] [place] [facility] [address] [id number] [place] [address]- 6960 Mar, [facility] [place] [facility] [address] [id number] [place] [address]- 4304 Mar, [facility] [place] [facility] [address] [id number] [place] [address]- 8673 February, [facility] [place] [facility] [address] [id number] [place] [address]- 6391 February, [facility] [place] [facility] [address] [id number] [place] [address]- 4977 February, [facility] [place] [facility] [address] [id number] [place] [address]- 7960 February, [facility] [place] [facility] [address] [id number] [place] [address]- 3384 February, [facility] [place] [facility] [address] [id number] [place] [address]- 7889 February, [facility] [place] [facility] [address] [id number] [place] [address]- 0689 February, [facility] [place] [facility] [address] [id number] [place] [address]- 8593 Jan, [facility] [place] [facility] [address] [id number] [place] [address]- 6393 Jan, [facility] [place] [facility] [address] [id number] [place] [address]- 1712 Jan, [facility] [place] [facility] [address] [id number] [place] [address]- 1558 Jan, [facility] [place] [facility] [address] [id number] [place] [address]- 8876 Dec, [facility] [place] [facility] [address] [id number] [place] [address]- 0274 Dec, [facility] [place] [facility] [address] [id number] [place] [address]- 4882 Dec, [facility] [place] [facility] [address] [id number] [place] [address]- 7718 Dec, [facility] [place] [facility] [address] [id number] [place] [address]- 6773 Nov, [facility] [place] [facility] [address] [id number] [place] [address]- 4297 Nov, [facility] [place] [facility] [address] [id number] [place] [address]- 1027 Nov, [facility] [place] [facility] [address] [id number] [place] [address]- 0704 Nov, [facility] [place] [facility] [address] [facility] [id number] [place] [address]- 7513 Nov, [facility] [place] [facility] [address] [id number] [place] [address]- 6284 Nov, [facility] [place] [facility] [address] [id number] [place] [address]- 7094 Nov, [facility] [place] [facility] [address] [facility] [id number] [place] [address]- 6597 Nov, [facility] [place] [facility] [address] [facility] [id number] [place] [address]- 6495 Oct, [facility] [place] [facility] [address] [id number], [place] [address]- 8163 Oct, [facility] [place] [facility] [address] [id number] [place] [address]- 5448 Oct, [facility] [place] [facility] [address] [id number] [place] [address]- 9418 Oct, [facility] [place] [facility] [address] [facility] [id number] [place] [address]- 8041 Oct, [facility] [place] [facility] [address] [id number], [place] [address]- 1319 Oct, [facility] [place] [facility] [address] [id number] [place] [address]- 3932 Oct, [facility] [place] [facility] [address] [id number] [place] [address]- 3693 Oct, [facility] [place] [facility] [address] [id number] [place] [address]- 3356 Oct, [facility] [place] [facility] [address] [id number] [place] [address]- 4389 Oct, [facility] [place] [facility] [address] [id number] [place] [address]- 7817 Oct, [facility] [place] [facility] [address] [id number] [place] [address]- 4851 Aug, [facility] [place] [facility] [address] [facility] [id number] [place] [address]- 0992 Aug, [facility] [place] [facility] [address] [id number] [place] [address]- 1110 Jul, [facility] [place] [facility] [address] [facility] [id number] [place] [address]- 0679 Jul, [facility] [place] [facility] [address] [facility] [id number] [place] [address]- 1747 Jul, [facility] [place] [facility] [address] [id number] [place] [address]- 5912 Jul, [facility] [place] [facility] [address] [id number] [place] [address]- 9284 Jun, [facility] [place] [facility] [address] [id number] [place] [address]- 5478 19 Jun, 2013 [facility] [place] [facility] [address] [facility] [id number] [place] [address]- 5246 Jan, [facility] [place] [facility] [address] [facility] [id number] [place] [address]- 7585 Oct, [facility] [place] [facility] [address] [id number] [place] [address]- 8060 Sep, [facility] [place] [facility] [address] [id number] [place] [address]- 9696 Sep, [facility] [place] [facility] [address] [id number] [place] [address]- 2546 Sep, [facility] [place] [facility] [address] [id number] [place] [address]- 3456 Sep, [facility] [place] [facility] [address] [id number] [place] [address]- 5862 Aug, [facility] [place] [facility] [address] [id number] [place] [address]- 6967 Aug, [facility] [place] [facility] [address] [id number] [place] [address]- 2377 Aug, [facility] [place] [facility] [address] [id number] [place] [address]- 5947 Aug, [facility] [place] [facility] [address] [id number] [place] [address]- 9545 Jul, [facility] [place] [facility] [address] [id number] [place] [address]- 6317 Jul, [facility] [place] [facility] [address] [facility] [id number] [place] [address]- 9731 Jul, [facility] [place] [facility] [address] [id number] [place] [address]- 0852 Jul, [facility] [place] [facility] [address] [id number] [place] [address]- 3585 Jul, [facility] [place] [facility] [address] [id number] [place] [address]- 9426 Jun, [facility] [place] [facility] [address] [id number] [place] [address]- 2546 06 Jun, 2012 [facility] [place] [facility] [address] [id number] [place] [address]- 2546 Jun, [facility] [place] [facility] [address] [id number] [place] [address]- 8496 May, [facility] [place] [facility] [address] [id number] [place] [address]- 5206 May, [facility] [place] [facility] [address] [id number] [place] [address]- 4746 Apr, [facility] [place] [facility] [address] [id number] [place] [address]- 7471 Apr, [facility] [place] [facility] [address] [id number] [place] [address]- 5981 Apr, [facility] [place] [facility] [address] [id number] [place] [address]- 8978 Apr, [facility] [place] [facility] [address] [id number] [place] [address]- 7534 Mar, [facility] [place] [facility] [address] [id number] [place] [address]- 0431 Mar, [facility] [place] [facility] [address] [id number] [place] [address]- 4434 Mar, [facility] [place] [facility] [address] [id number] [place] [address]- 5634 February, [facility] [place] [facility] [address] [id number] [place] [address]- 8826 February, [facility] [place] [facility] [address] [id number], [place] [address]- 5358 February, [facility] [place] [facility] [address] [id number] [place] [address]- 7243 February, [facility] [place] [facility] [address] [id number] [place] [address] February, [facility] [place] [facility] [address] [id number] [place] [address] Jan, [facility] [place] [facility] [address] [id number] [place] [address] 24 Jan, 2012 [facility] [address] [id number] [place] [address] Jan, [facility] [place] [facility] [address] [id number] [place] [address] Dec, [facility] [place] [facility] [address] [id number] [place] [address] Dec, [facility] [place] [facility] [address] [id number] [place] [address] Dec, [facility] [place] [facility] [address] [id number] [place] [address] 29 Nov, 2011 [facility] [place] [facility] [address] [id number] [place] [address] 16 Nov, 2011 [facility] [place] [facility] [address] [facility] [id number] [place] [address] Nov, [facility] [place] [facility] [address] [id number] [place] [address] 06 Nov, 2011 [facility] [place] [facility] [id number] [place] [address] Oct, [facility] [address] [facility] [id number] [place] [address] Oct, [facility] [place] [facility] [address] [facility] [id number] [place] [address] Sep, [facility] [place] [facility] [address] [id number] [place] [address] 30 Sep, 2011 [facility] [place] [facility] [address] [id number] [place] [address] 14 Sep, 2011 [facility] [place] [facility] [address] [facility] [id number] [place] [address] 05 Sep, 2011 [facility] [place] [facility] [address] [facility] [id number] [place] [address] Aug, [facility] [place] [facility] [address] [id number] [place] [address] 10 Aug, 2011 [facility] [place] [facility] [address] [id number] [place] [address] Aug, [facility] [place] [facility] [address] [id number] [place] [address] Jul, [facility] [place] [facility] [address] [id number] [place] [address] Jul, [facility] [place] [facility] [address] [id number] [place] [address] Jul, [facility] [place] [facility] [address] [id number] [place] [address] May, [facility] [place] [facility] [address] [id number] [place] [address] February, [facility] [place] [facility] [address] [id number] [place] [address] Nov, [facility] [place] [facility] [address] [id number] [place] [address] Oct, [facility] [place] [facility] [address] [facility] [id number], [place] [address] Oct, [facility] [place] [facility] [address] [id number] [place] [address] Sep, [facility] [place] [facility] [address] [id number], [place] [address] 17 Sep, 2010 [facility] [place] [facility] [address] [id number] [place] [address] 17 Sep, 2010 [facility] [place] [facility] [address] [id number] [place] [address] 16 Sep, 2010 [facility] [place] [facility] [address] [facility] [id number] [address] 10 Sep, 2010 [facility] [place] [facility] [address] [id number], [place] [address] 10 Sep, 2010 [facility] [place] [facility] [address] [id number] [place] [address] 29 Aug, 2010 [facility] [place] [facility] [address] [id number], [place] [address] 23 Aug, 2010 [facility] [place] [facility] [address] [facility] [id number] [place] [address] 18 Aug, 2010 [facility] [place] [facility] [address] [id number], [place] [address] 17 Aug, 2010 [facility] [place] [facility] [address] [facility] [id number] [place] [address], [place] [address] 16 Aug, 2010 [facility] [place] [facility] [address] [facility] [id number] [place] [address] 25 Jul, 2010 [facility] [place] [facility] [address] [facility] [id number] [place] [address] 16 Jun, 2010 [facility] [place] [facility] [address] [facility] [id number], [place] [address] February, [facility] [place] [facility] [address] [id number] [address] Oct, [facility] [place] [facility] [address] [id number], [place] [address] Sep, [facility] [place] [facility] [address] [facility] [id number], [place] [address] 24 Aug, 2009 [facility] [place] [facility] [address] [facility] [id number], [place] [address] Aug, [facility] [place] [facility] [address] [facility] [id number], [place] [address] 02 Aug, 2009 [facility] [place] [facility] [address] [facility] [id number], [place] [address] 20 Jul, 2009 [facility] [place] [facility] [address] [facility] [id number], [place] [address] 15 Jul, 2009 [facility] [place] [facility] [address] [facility] [id number], [place] [address] 15 Jul, 2009 [facility] [address] [id number], [place] [address] 14 Jun, 2009 [facility] [address] [id number], [place] [address] 10 Jun, 2009 [facility] [address] [id number], [place] [address] 16 Mar, 2009 [facility] [address] [id number], [place] [address] 13 Jan, 2009 [facility] [address] [id number], [place] [address] 05 Aug, 2008 IMMUNIZATIONS No Known Immunizations [...]
--- OUTSIDE RECORDS SUMMARY | 2018-11-13 11:59 | XMS REPORT ---
Author KAREN Montiel Organization [employer] Address Unknown Phone Unavailable Care Team Providers Care Environmental Professional Name Role Phone KAREN ARENAS CP Unavailable Allergies, Adverse Reactions, Alerts Substance Reaction Event Type Aspir-81 nausea Drug Allergy IV Dye nausea Non Drug Allergy Problems Problem Type Condition Code Onset Dates Condition Status Problem Borderline personality disorder 301.83 Active Problem Coronary atherosclerosis of unspecified type of vessel, [place] or graft 414.00 Active Problem Other and unspecified hyperlipidemia 272.4 Active Problem Back pain M54.9 Active Problem CAD (coronary artery disease) I25.10 Active Problem Hyperlipidemia E78.5 Active Problem Major depressive disorder, recurrent episode, in partial remission 296.35 Active Problem Nightmares associated with chronic post-traumatic stress disorder 307.47 Active Problem Depression F32.9 Active Problem Tobacco abuse Z72.0 Active Assessment Other nursing home (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.899 Active Assessment Post-traumatic stress disorder, chronic F43.12 Active Problem Lumbago 724.2 Active Problem Posttraumatic stress disorder 309.81 Active Medications Medication Code System Code Instructions Start Date End Date Status Dosage Lyrica [facility] [address]-92 100 MG TAKE ONE CAPSULE BY MOUTH FOUR TIMES DAILY Seroquel XR [facility] [id number] 400 MG Orally Once a day TAKE ONE TABLET BY MOUTH ONCE PER DAY BETWEEN DINNER AND BEDTIME Pristiq [facility] [address]-17 100 MG TAKE ONE TABLET BY MOUTH ONCE DAILY Procedures Procedure Coding System Code Date Office Visit, Est Pt., Level 3 CPT-4 12451 Aug 13, 2016 Vital Signs Date/Time: Aug 13, 2016 Cardiac Monitoring Heart Rate 112 bpm Weight 163.8 lbs Height 67 in BMI 25.65 Index Blood Pressure Diastolic 50 mmHg Blood Pressure Systolic 70 mmHg Results No Known Results Summary Purpose [employer] Submission
--- OUTSIDE RECORDS SUMMARY | 2018-11-13 12:00 | XMS REPORT ---
Author KAREN Montiel Organization [employer] Address Unknown Phone Unavailable Care Team Providers Care Product Manager Name Role Phone KAREN ARENAS CP Unavailable Allergies, Adverse Reactions, Alerts Substance Reaction Event Type Aspir-81 nausea Drug Allergy IV Dye nausea Non Drug Allergy Problems Problem Type Condition Code Onset Dates Condition Status Problem Borderline personality disorder 301.83 Active Problem Coronary atherosclerosis of unspecified type of vessel, [place] or graft 414.00 Active Problem Other and unspecified hyperlipidemia 272.4 Active Problem Back pain M54.9 Active Problem CAD (coronary artery disease) I25.10 Active Problem Hyperlipidemia E78.5 Active Problem Major depressive disorder, recurrent episode, in partial remission 296.35 Active Problem Nightmares associated with chronic post-traumatic stress disorder 307.47 Active Problem Depression F32.9 Active Problem Tobacco abuse Z72.0 Active Assessment Post-traumatic stress disorder, chronic F43.12 Active Assessment Bipolar affective, depress, mod F31.32 Active Problem Lumbago 724.2 Active Assessment Other snf (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.899 Active Problem Posttraumatic stress disorder 309.81 Active Medications Medication Code System Code Instructions Start Date End Date Status Dosage Lyrica [facility] [address]-74 100 MG TAKE ONE CAPSULE BY MOUTH FOUR TIMES DAILY Pristiq [facility] [id number] 100 MG Orally Once a day 1 tablet Seroquel XR [facility] [id number] 400 MG Orally Once a day TAKE ONE TABLET BY MOUTH ONCE PER DAY BETWEEN DINNER AND BEDTIME Procedures Procedure Coding System Code Date LIPID PANEL CPT-4 14502 May 14, 2016 ASSAY, GLUCOSE, BLOOD QUANT CPT-4 30702 May 14, 2016 Office Visit, Est Pt., Level 4 CPT-4 05035 May 14, 2016 Vital Signs Date/Time: May 14, 2016 Cardiac Monitoring Heart Rate 121 bpm Weight 168.2 lbs Height 67 in Blood Pressure Diastolic 64 mmHg Blood Pressure Systolic 90 mmHg Results No Known Results Summary Purpose [employer] Submission
--- OUTSIDE RECORDS SUMMARY | 2018-11-13 12:00 | XMS REPORT ---
Author Author ELIECER ROMAN 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 Role Phone ABELELIECER Unavailable PROBLEMS Type Condition ICD9-CM Code [id number] Code Onset Dates Condition Status SNOMED Code Problem Borderline personality disorder F60.3 Active 18003913 Problem Post-traumatic stress disorder, chronic F43.12 Active 73794829 Problem Carpal tunnel syndrome of right wrist G56.01 Active 131471429827440 Problem PAD (peripheral artery disease) I73.9 Active 069534434 Problem Anxiety F41.9 Active 41472847 Problem Cannabis use disorder, mild, abuse F12.10 Active 20015894 Problem Bipolar affective, depress, mod F31.32 Active 105129935 Problem Fibromyalgia M79.7 Active 975548037 Problem Cervical radiculopathy M54.12 Active 68202232 Problem CAD (coronary artery disease) I25.10 Active 42517927 Problem Depression F32.9 Active 00297641 Problem Back pain M54.9 Active 629198163 Problem Tobacco abuse Z72.0 Active 30499531 Problem Hyperlipidemia E78.5 Active 24797196 ALLERGIES No Information ENCOUNTERS Encounter Location Date Diagnosis [facility] [id number] [place] [address] 72455- 5959 Apr, [facility] [id number] [place] [address] 92378- 3278 February, [facility] [id number] [place] [address] 45482- 6419 February, Fibromyalgia M79.7 [facility] [id number] [place] [address] 97176- 4974 Jan, Post-traumatic stress disorder, chronic F43.12 ; Bipolar affective, depress, mod F31.32 ; Borderline personality disorder F60.3 and Cannabis use disorder, mild, abuse F12.10 [place] [address] [address] Jan, [facility] [id number] [place] [address] Dec, Bipolar affective, depress, mod F31.32 ; Post-traumatic stress disorder, chronic F43.12 ; Borderline personality disorder F60.3 and Cannabis use disorder, mild, abuse F12.10 [place] [id number] [place] [address] 22900- 0379 Dec, Hoarseness R49.0 ; Bronchitis J40 ; PAD (peripheral artery disease) I73.9 and Tobacco abuse Z72.0 [place] [address] [place] [address] 50935- 1236 Nov, Bipolar affective, depress, mod F31.32 ; Post-traumatic stress disorder, chronic F43.12 ; Borderline personality disorder F60.3 and Cannabis use disorder, mild, abuse F12.10 [place] [address] [place] [address] 55628- 5734 Oct, Post-traumatic stress disorder, chronic F43.12 ; Bipolar affective, depress, mod F31.32 ; Borderline personality disorder F60.3 and Cannabis use disorder, mild, abuse F12.10 [place] [address] [place] [address] 94785- 9989 Oct, Bipolar affective, depress, mod F31.32 ; Post-traumatic stress disorder, chronic F43.12 and Borderline personality disorder F60.3 [place] [address] [address] 7527 Sep, Anxiety F41.9 [facility] [id number] [place] [address] Aug, Bipolar affective, depress, mod F31.32 ; Post-traumatic stress disorder, chronic F43.12 and Borderline personality disorder F60.3 [facility] [id number] [place] [address] 49649- 1947 Aug, Bipolar affective, depress, mod F31.32 ; Post-traumatic stress disorder, chronic F43.12 and Borderline personality disorder F60.3 [facility] [id number] [place] [address] 82748- 6466 Aug, Fibromyalgia M79.7 ; Back pain M54.9 and Cervical radiculopathy M54.12 [place] [id number] [place] [address] [address] Aug, Bipolar affective, depress, mod F31.32 and Post-traumatic stress disorder, chronic F43.[address] 39116- 5441 Jul, Depression F32.9 ; Borderline personality disorder F60.3 and Bipolar affective, depress, mod F31.[address] 34547- 5712 Jul, Post-traumatic stress disorder, chronic F43.12 ; Bipolar affective, depress, mod F31.32 ; Borderline personality disorder F60.3 and Cannabis use disorder, mild, abuse F12.10 [place] [id number] [place] [address] 98512- 0115 Jul, 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 73774- 6162 Jun, [address] 52086- 0987 Jun, Depression F32.9 ; Borderline personality disorder F60.3 and Bipolar affective, depress, mod F31.32 [place] [id number] [place] [address] 68271- 0402 Jun, Depression F32.9 and Borderline personality disorder F60.[address] 83126- 2780 May, Post-traumatic stress disorder, chronic F43.12 [facility] [id number] [place] [address] 63131- 1174 May, Depression F32.9 and Borderline personality disorder F60.3 [place] [id number] [place] [address] 67647- 0296 Apr, Post-traumatic stress disorder, chronic F43.12 ; Bipolar affective, depress, mod F31.32 ; Borderline personality disorder F60.3 ; 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 and Cannabis use disorder, mild, abuse F12.10 [place] [id number] [place] [address] 45208- 3993 Apr, Depression F32.9 and Borderline personality disorder F60.3 [place] [id number] [place] [address] 74232- 6477 Apr, Depression F32.9 and Borderline personality disorder F60.3 [facility] [facility] [id number] [place] [address] 01312- 2694 Mar, Depression F32.9 and Borderline personality disorder F60.3 [place] [id number] [place] [address] 21381- 9620 February, Depression F32.9 and Borderline personality disorder F60.3 [place] [id number] [place] [address] 30885- 3565 February, Back pain M54.9 [facility] [id number] [place] [address] 49333- 0723 February, Depression F32.9 and Borderline personality disorder F60.3 [place] [address] [address]36- 0089 February, Post-traumatic stress disorder, chronic F43.12 ; Borderline personality disorder F60.3 and Bipolar affective disorder, depressed, mild F31.31 [place] [id number] [place] [address] 50186- 4209 February, [facility] [facility] [id number] [place] [address] 48352- 6869 February, Depression F32.9 and Borderline personality disorder F60.3 [facility] [facility] [id number] [place] [address] 95353- 2927 Jan, [facility] [id number] [place] [address] 35057- 1769 Jan, Depression F32.9 and Borderline personality disorder F60.3 [facility] [id number] [place] [address] 78665- 6908 Jan, Acute lateral meniscus tear of right knee, initial encounter S83.281A [place] [address] 92015- 8298 Jan, Depression F32.9 and Borderline personality disorder F60.3 [place] [id number] [place] [address] 16039- 1122 Dec, Depression F32.9 and Borderline personality disorder F60.3 [facility] [facility] [id number] [place] [address] 74133- 1769 Dec, Depression F32.9 and Borderline personality disorder F60.3 [place] [address] [place] [address] 05455- 6687 Nov, Hyperlipidemia E78.5 ; Knee locking, right M23.91 and Carpal tunnel syndrome of right wrist G56.01 [place] [address] [place] [address] 21247- 9570 23 Nov, 2016 Bipolar affective, depress, mod F31.32 ; Post-traumatic stress disorder, chronic F43.12 and Borderline personality disorder F60.3 [place] [id number] [place] [address] 21613- 2058 16 Nov, 2016 Depression F32.9 and Borderline personality disorder F60.3 [place] [id number] [place] [address] 77957- 1932 Oct, Post-traumatic stress disorder, chronic F43.12 and Other shelter (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.899 [place] [id number] [place] [address] 53751- 5051 Oct, Nondisplaced fracture of distal end of right radius with routine healing, subsequent encounter S52.501D [facility] [facility] [id number] [place] [address] 63662- 9235 Sep, [place] [address] 65177- 4789 Aug, Right wrist fracture, closed, initial encounter S62.101A [place] [address] 55594- 2138 Aug, [place] [id number] [place] [address] 69576- 5954 Jul, Back pain M54.9 and Hyperlipidemia E78.5 [place] [id number] [place] [address] 37771- 7442 Jul, Post-traumatic stress disorder, chronic F43.12 and Other shelter (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.899 [place] [id number] [place] [address] 08810- 5315 Apr, Bipolar affective, depress, mod F31.32 ; Post-traumatic stress disorder, chronic F43.12 and Other shelter (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.899 [place] [id number] [place] [address] 81517- 8255 Mar, [facility] [facility] [id number] [place] [address] 03316- 0561 Jan, Post-traumatic stress disorder, chronic F43.12 and Depression F32.9 [place] [id number] [place] [address] 87330- 5760 Dec, [facility] [address] 50569- 9806 15 Nov, 2015 Shoulder pain, left M25.512 and Bronchitis J40 [place] [id number] [place] [address] 32377- 5535 Sep, Hyperlipidemia E78.5 [place] [id number] [place] [address] 00676- 1482 Sep, Hyperlipidemia E78.5 [place] [address] 54722- 5028 Sep, [place] [address] 02495- 1994 Sep, Back pain M54.9 ; CAD (coronary artery disease) I25.10 and Depression F32.9 [place] [id number] [place] [address] 01766- 6568 Sep, URI (upper respiratory infection) J06.9 ; Nausea & vomiting R11.2 and Tobacco abuse Z72.0 [place] [id number] [place] [address] 59406- 5189 Mar, Posttraumatic stress disorder 309.81 ; Major depressive disorder, recurrent episode, in partial remission 296.35 ; Nightmares associated with chronic post-traumatic stress disorder 307.47 ; Thoracic or lumbosacral neuritis or radiculitis, unspecified 724.4 ; Borderline personality disorder 301.83 and High risk medication use V58.69 [place] [id number] [place] [address] 70276- 5331 Jan, [place] [id number] [place] [address] 63081- 1939 Jan, [place] [address] 19164- 3331 Dec, [place] [id number] [place] [address] 56224- 2864 Dec, [place] [id number] [place] [address] 87349- 3506 Sep, [facility] [place] [facility] [address] [id number] [place] [address]- 0230 Sep, [facility] [place] [facility] [address] [id number] [place] [address]- 1825 Sep, [facility] [place] [facility] [address] [id number] [place] 9015 Sep, [facility] [place] [facility] [address] [id number] [place] [address]- 3583 Sep, [facility] [place] [facility] [address] [id number] [place] [address]- 3076 Jul, [facility] [place] [facility] [address] [id number] [place] [address]- 2239 Jul, [facility] [place] [facility] [address] [id number] [place] [address]- 3310 Jul, [facility] [place] [facility] [address] [id number] [place] [address]- 2929 Jul, [facility] [place] [facility] [address] [id number] [place] [address]- 0002 Jul, [facility] [place] [facility] [address] [id number] [place] [address]- 1226 Jul, [facility] [place] [facility] [address] [id number] [place] [address]- 5660 Jul, [facility] [place] [facility] [address] [id number] [address]- 7529 Jul, [facility] [place] [facility] [address] [id number] [place] [address]- 9969 May, [facility] [place] [facility] [address] [id number] [place] [address]- 0693 May, [facility] [place] [facility] [address] [id number] [place] [address]- 1655 May, [facility] [place] [facility] [address] [id number] [place] [address]- 9891 May, [facility] [place] [facility] [address] [id number] [place] [address]- 5698 May, [facility] [place] [facility] [address] [id number] [place] [address]- 0016 May, [facility] [place] [facility] [address] [id number] [place] [address]- 3937 Mar, [facility] [place] [facility] [address] [id number] [place] [address]- 4770 Mar, [facility] [place] [facility] [address] [id number] [place] [address]- 3105 February, [facility] [place] [facility] [address] [id number] [place] [address]- 5327 February, [facility] [place] [facility] [address] [id number] [place] [address]- 9577 February, [facility] [place] [facility] [address] [id number] [place] [address]- 3064 February, [facility] [place] [facility] [address] [id number] [place] [address]- 5654 February, [facility] [place] [facility] [address] [id number] [place] [address]- 7144 February, [facility] [place] [facility] [address] [id number] [place] [address]- 5515 February, [facility] [place] [facility] [address] [id number] [place] [address]- 8518 Jan, [facility] [place] [facility] [address] [id number] [place] [address]- 8641 Jan, [facility] [place] [facility] [address] [id number] [place] [address]- 3252 Jan, [facility] [place] [facility] [address] [id number] [place] [address]- 8551 Jan, [facility] [place] [facility] [address] [id number] [place] [address]- 4154 Dec, [facility] [place] [facility] [address] [id number] [place] [address]- 0376 Dec, [facility] [place] [facility] [address] [id number] [place] [address]- 5418 Dec, [facility] [place] [facility] [address] [id number] [place] [address]- 0707 Dec, [facility] [place] [facility] [address] [id number] [place] [address]- 1209 Nov, [facility] [place] [facility] [address] [id number] [place] [address]- 5546 Nov, [facility] [place] [facility] [address] [id number] [place] [address]- 5342 Nov, [facility] [place] [facility] [address] [id number] [place] [address]- 2417 Nov, [facility] [place] [facility] [address] [id number] [place] [address]- 4414 Nov, [facility] [place] [facility] [address] [id number] [place] [address]- 0698 Nov, [facility] [place] [facility] [address] [id number] [place] [address]- 5759 Nov, [facility] [place] [facility] [address] [id number] [place] [address]- 2952 Nov, [facility] [place] [facility] [address] [id number] [place] [address]- 1229 Oct, [facility] [place] [facility] [address] [id number] [place] [address]- 5233 Oct, [facility] [place] [facility] [address] [id number] [place] [address]- 9169 Oct, [facility] [place] [facility] [address] [id number] [place] [address]- 6936 Oct, [facility] [place] [facility] [address] [id number] [place] [address]- 0487 Oct, [facility] [place] [facility] [address] [id number] [place] [address]- 4662 Oct, [facility] [place] [facility] [address] [id number] [place] [address]- 0907 Oct, [facility] [place] [facility] [address] [id number] [place] [address]- 7204 Oct, [facility] [place] [facility] [address] [id number] [place] [address]- 5254 Oct, [facility] [place] [facility] [address] [id number] [place] [address]- 6105 Oct, [facility] [place] [facility] [address] [id number] [place] [address]- 5329 Oct, [facility] [place] [facility] [address] [id number] [place] [address]- 5555 Aug, [facility] [place] [facility] [address] [id number] [place] [address]- 4389 Aug, [facility] [place] [facility] [address] [facility] [id number] [place] [address]- 7901 Jul, [facility] [place] [facility] [address] [id number] [place] [address]- 6336 31 Jul, 2013 [facility] [place] [facility] [address] [id number] [place] [address]- 9246 Jul, [facility] [place] [facility] [address] [id number] [place] [address]- 4983 24 Jul, 2013 [facility] [place] [facility] [address] [id number] [place] [address]- 0527 27 Jun, 2013 [facility] [place] [facility] [address] [id number] [place] [address]- 5283 19 Jun, 2013 [facility] [place] [facility] [address] [id number] [place] [address]- 5342 Jan, [facility] [place] [facility] [address] [id number] [place] [address]- 9468 Oct, [facility] [place] [facility] [address] [id number] [place] [address]- 4674 Sep, [facility] [place] [facility] [address] [id number] [place] [address]- 2694 Sep, [facility] [place] [facility] [address] [id number] [place] [address]- 3247 Sep, [facility] [place] [facility] [address] [id number] [place] [address]- 1554 Sep, [facility] [place] [facility] [address] [id number] [place] [address]- 3190 Aug, [facility] [place] [facility] [address] [id number] [place] [address]- 8142 Aug, [facility] [place] [facility] [address] [id number] [place] [address]- 0878 Aug, [facility] [place] [facility] [address] [id number] [place] [address]- 2022 Aug, [facility] [place] [facility] [address] [facility] [id number] [place] [address]- 7517 Jul, [facility] [place] [facility] [address] [id number] [place] [address]- 2635 Jul, [facility] [place] [facility] [address] [id number] [place] [address]- 5255 Jul, [facility] [place] [facility] [address] [id number] [place] [address]- 8938 Jul, [facility] [place] [facility] [address] [id number] [place] [address]- 6345 Jul, [facility] [place] [facility] [address] [id number] [place] [address]- 2856 Jun, [facility] [place] [facility] [address] [id number] [place] [address]- 3578 Jun, [facility] [place] [facility] [address] [id number] [place] [address]- 8426 Jun, [facility] [place] [facility] [address] [id number] [place] [address]- 3941 May, [facility] [place] [facility] [address] [id number] [place] [address]- 9546 May, [facility] [place] [facility] [address] [id number] [place] [address]- 3969 Apr, [facility] [place] [facility] [address] [id number] [place] [address]- 2731 Apr, [facility] [place] [facility] [address] [id number] [place] [address]- 4191 Apr, [facility] [place] [facility] [address] [id number] [place] [address]- 3834 Apr, [facility] [place] [facility] [address] [id number] [place] [address]- 9469 Mar, [facility] [place] [facility] [address] [id number] [place] [address]- 5466 Mar, [facility] [place] [facility] [address] [id number] [place] [address]- 1098 Mar, [facility] [place] [facility] [address] [id number] [place] [address]- 1583 February, [facility] [place] [facility] [address] [id number] [place] [address]- 3596 February, [facility] [place] [facility] [address] [id number] [place] [address]- 0386 February, [facility] [place] [facility] [address] [id number] [place] [address]- 2546 February, [facility] [place] [facility] [address] [id number] [place] [address]- 5276 February, [facility] [address] [id number] [place] [address]- 1906 Jan, [facility] [place] [facility] [address] [id number] [place] [address]- 7896 Jan, [facility] [address] [id number] [place] [address]- 1446 Jan, [facility] [address] [id number] [place] [address]- 7998 Dec, [facility] [address] [id number] [place] [address]- 4361 Dec, [facility] [address] [id number] [place] [address]- 6376 Dec, [facility] [address] [id number] [place] [address]- 4339 Nov, [facility] [address] [id number] [place] [address]- 8013 Nov, [facility] [address] [id number] [place] [address]- 2566 Nov, [facility] [address] [id number] [place] [address]- 9895 Nov, [facility] [address] [id number] [place] [address] Oct, [facility] [address] [id number] [place] [address] Oct, [facility] [place] [facility] [address] [id number] [place] [address] Sep, [facility] [place] [facility] [address] [id number] [place] [address] Sep, [facility] [address] [id number] [place] [address] Sep, [facility] [place] [facility] [address] [id number] [place] [address] 05 Sep, 2011 [facility] [place] [facility] [address] [id number] [place] [address] Aug, [facility] [place] [facility] [address] [id number] [place] [address] 10 Aug, 2011 [facility] [place] [facility] [address] [id number] [place] [address] Aug, [facility] [place] [facility] [address] [id number] [place] [address] Jul, [facility] [place] [facility] [address] [id number] [place] [address] Jul, [facility] [place] [facility] [address] [id number] [place] [address] Jul, [facility] [place] [facility] [address] [id number] [place] [address] May, [facility] [place] [facility] [address] [id number] [place] [address] February, [facility] [place] [facility] [address] [id number] [place] [address] Nov, [facility] [place] [facility] [address] [id number] [place] [address] Oct, [facility] [place] [facility] [address] [id number], [place] [address] Oct, [facility] [place] [facility] [address] [id number] [place] [address] Sep, [facility] [place] [facility] [address] [id number] [place] [address] Sep, [facility] [place] [facility] [address] [id number] [place] [address] Sep, [facility] [place] [facility] [address] [id number] [place] [address] 16 Sep, 2010 [facility] [address] [id number] [place] [address] 10 Sep, 2010 [facility] [place] [facility] [address] [id number] [place] [address] 10 Sep, 2010 [facility] [address] [id number] [place] [address] 29 Aug, 2010 [facility] [place] [facility] [address] [id number] [place] [address] 23 Aug, 2010 [facility] [address] [id number] [place] [address] 18 Aug, 2010 [facility] [place] [facility] [address] [id number] [place] [address]- [address] 17 Aug, 2010 [facility] [address] [id number] [place] [address] 16 Aug, 2010 [facility] [place] [facility] [address] [id number] [place] [address] 25 Jul, 2010 [facility] [place] [facility] [address] [id number] [place] [address] 16 Jun, 2010 [facility] [place] [facility] [address] [id number] [place] [address] February, [facility] [place] [facility] [address] [id number] [place] [address] Oct, [facility] [place] [facility] [address] [id number], [place] [address] Sep, [facility] [place] [facility] [address] [id number] [place] [address] Aug, [facility] [place] [facility] [address] [id number] [place] [address] Aug, [facility] [place] [facility] [address] [id number], [place] [address] Aug, [facility] [address] [id number] [address] 20 Jul, 2009 [facility] [id number] [address] 15 Jul, 2009 [facility] [id number] [address] 15 Jul, 2009 [facility] [id number], [place] [address] 14 Jun, 2009 [facility] [id number] [address] 10 Jun, 2009 [facility] [id number] [address] 16 Mar, 2009 [facility] [facility] [id number] [address] Jan, [facility] [id number] [address] Aug, IMMUNIZATIONS No Known Immunizations SOCIAL HISTORY Never Assessed REASON FOR VISIT med refill PLAN OF CARE VITAL SIGNS MEDICATIONS Medication Instructions Dosage Frequency Start Date End Date Duration Status Pristiq 100 mg TAKE ONE TABLET BY MOUTH ONCE DAILY 30 days Active QUEtiapine Fumarate ER 200 mg Orally Once a day 1 tablet every nicolas ( 300mg tab) 24h 30 days Active QUEtiapine Fumarate ER 300 MG Orally Once a day 1 tablet every nicolas ( 200mg tab) 24h 30 days Active RESULTS No [...]
--- OUTSIDE RECORDS SUMMARY | 2018-11-13 12:02 | XMS REPORT | Continuity of Care Document ---
Author Author Formerly [facility] [place] [facility] Address Unknown Phone Unavailable Allergies Active Description Code Type Severity Reaction Onset Reported/Identified Relationship to Patient Clinical Status Yes Iodinated Contrast Media - IV Dye [id number] Drug Allergy Unknown N/A 05/07 Yes Iodinated Contrast Media - Oral and [id number] Drug Allergy Unknown N/A 09/2007 Yes Iodinated Contrast- Oral and IV Dye [id number] Drug Allergy Unknown N/A 09/2007 Yes aspirin Drug Allergy N/A N/A 01/13/2009 Yes aspirin Drug Allergy 01/13/2009 Yes aspirin [id number] Drug Allergy Mild NAUSEA 11/29/2009 Yes iodinated radiocontrast agent Drug Allergy 09/03/2011 Yes Phenergan Drug Allergy 09/03/2011 Yes simvastatin [id number] Drug Allergy Unknown N/A 05/21/2016 Medications There is no data. Problems Date Dx Coded Attending Type Code Diagnosis Diagnosed By 05/11/2008 KISHORE GONSALEZ DO 296.32 Major Depression Recurrent Moderate 05/11/2008 KISHORE GONSALEZ DO 296.32 Major Depression Recurrent Moderate 05/11/2008 296.32 Major Depression Recurrent Moderate 05/11/2008 MARIMAR JONES MD 296.32 Major Depression Recurrent Moderate 05/11/2008 TONYA SORENSEN APRN 296.32 Major Depression Recurrent Moderate 05/11/2008 MARIMAR JONES MD 296.32 Major Depression Recurrent Moderate 05/11/2008 MARIMAR JONES MD 296.32 Major Depression Recurrent Moderate 05/11/2008 MARIMAR JONES MD 296.32 Major Depression Recurrent Moderate 05/11/2008 FALLON MARTINEZ DO 296.32 Major Depression Recurrent Moderate 05/11/2008 IJEOMA HARRINGTON JR 296.32 Major Depression Recurrent Moderate 05/11/2008 MARIMAR JONES MD 296.32 Major Depression Recurrent Moderate 05/11/2008 IJEOMA HARRINGTON JR 296.32 Major Depression Recurrent Moderate 05/11/2008 IJEOMA HARRINGTON JR 296.32 Major Depression Recurrent Moderate 05/11/2008 MARIMAR JONES MD 296.32 Major Depression Recurrent Moderate 05/23/2008 KISHORE GONSALEZ DO 724.5 Backache 05/23/2008 KISHORE GONSALEZ DO 724.5 Backache 05/23/2008 724.5 Backache 05/23/2008 MARIMAR JONES MD 724.5 Backache 05/23/2008 TONYA SORENSEN APRN 724.5 Backache 05/23/2008 MARIMAR JONES MD 724.5 Backache 05/23/2008 MARIMAR JONES MD 724.5 Backache 05/23/2008 MARIMAR JONES MD4.5 Backache 05/23/2008 FALLON MARTINEZ DO 724.5 Backache 05/23/2008 IJEOMA HARRINGTON JR 724.5 Backache 05/23/2008 MARIMAR JONES MD 724.5 Backache 05/23/2008 IJEOMA HARRINGTON JR 724.5 Backache 05/23/2008 IJEOMA HARRINGTON JR 724.5 Backache 05/23/2008 MARIMAR JONES MD 724.5 Backache 07/08/2008 KISHORE GONSALEZ DO 729.1 Myalgia And Myositis Unspecified 07/08/2008 KISHORE GONSALEZ DO 729.1 Myalgia And Myositis Unspecified 07/08/2008 729.1 Myalgia And Myositis Unspecified 07/08/2008 MARIMAR JONES MD 729.1 Myalgia And Myositis Unspecified 07/08/2008 TONYA SORENSEN APRN 729.1 Myalgia And Myositis Unspecified 07/08/2008 MARIMAR JONES MD 729.1 Myalgia And Myositis Unspecified 07/08/2008 MARIMAR JONES MD 729.1 Myalgia And Myositis Unspecified 07/08/2008 MARIMAR JONES MD 729.1 Myalgia And Myositis Unspecified 07/08/2008 FALLON MARTINEZ DO 729.1 Myalgia And Myositis Unspecified 07/08/2008 IJEOMA HARRINGTON JR 729.1 Myalgia And Myositis Unspecified 07/08/2008 MARIMAR JONES MD 729.1 Myalgia And Myositis Unspecified 07/08/2008 IJEOMA HARRINGTON JR 729.1 Myalgia And Myositis Unspecified 07/08/2008 IJEOMA HARRINGTON JR 729.1 Myalgia And Myositis Unspecified 07/08/2008 MARIMAR JONES MD 729.1 Myalgia And Myositis Unspecified 10/05/2008 KISHORE GONSALEZ DO F 719.46 Joint Pain, Localized In The Knee 10/05/2008 KISHORE GONSALEZ DO F 780.52 Insomnia Unspecified 10/05/2008 GURPREET GONSALEZ DOEN F 719.46 Joint Pain, Localized In The Knee 10/05/2008 KISHORE GONSALEZ DO F 780.52 Insomnia Unspecified 10/05/2008 719.46 Joint Pain, Localized In The Knee 10/05/2008 780.52 Insomnia Unspecified 10/05/2008 MARIMAR JONES MD 719.46 Joint Pain, Localized In The Knee 10/05/2008 MARIMAR JONES MD 780.52 Insomnia Unspecified 10/05/2008 TONYA SORENSEN APRN 719.46 Joint Pain, Localized In The Knee 10/05/2008 TONYA SORENSEN APRN 780.52 Insomnia Unspecified 10/05/2008 MARIMAR JONES MD 719.46 Joint Pain, Localized In The Knee 10/05/2008 MARIMAR JONES MD 780.52 Insomnia Unspecified 10/05/2008 MARIMAR JONES MD 719.46 Joint Pain, Localized In The Knee 10/05/2008 MARIMAR JONES MD 780.52 Insomnia Unspecified 10/05/2008 MARIMAR JONES MD 719.46 Joint Pain, Localized In The Knee 10/05/2008 MARIMAR JONES MD 780.52 Insomnia Unspecified 10/05/2008 FALLON MARTINEZ DO K 719.46 Joint Pain, Localized In The Knee 10/05/2008 JOSÉ MIGUEL MARTINEZ DOA K 780.52 Insomnia Unspecified 10/05/2008 IJEOMA HARRINGTON JR 719.46 Joint Pain, Localized In The Knee 10/05/2008 IJEOMA HARRINGTON JR 780.52 Insomnia Unspecified 10/05/2008 MARIMAR JONES MD 719.46 Joint Pain, Localized In The Knee 10/05/2008 MARIMAR JONES MD 780.52 Insomnia Unspecified 10/05/2008 IJEOMA HARRINGTON JR 719.46 Joint Pain, Localized In The Knee 10/05/2008 IJEOMA HARRINGTON JR 780.52 Insomnia Unspecified 10/05/2008 IJEOMA HARRINGTON JR 719.46 Joint Pain, Localized In The Knee 10/05/2008 IJEOMA HARRINGTON JR 780.52 Insomnia Unspecified 10/05/2008 MARIMAR JONES MD 719.46 Joint Pain, Localized In The Knee 10/05/2008 MARIMAR JONES MD 780.52 Insomnia Unspecified 10/14/2008 KISHORE GONSALEZ DO F 836.0 Tear Of Medial Cartilage Or Meniscus Of Knee Current 10/14/2008 KISHORE GONSALEZ DO 836.0 Tear Of Medial Cartilage Or Meniscus Of Knee Current 10/14/2008 836.0 Tear Of Medial Cartilage Or Meniscus Of Knee Current 10/14/2008 MARIMAR JONES MD 836.0 Tear Of Medial Cartilage Or Meniscus Of Knee Current 10/14/2008 TONYA SORENSEN APRN 836.0 Tear Of Medial Cartilage Or Meniscus Of Knee Current 10/14/2008 MARIMAR JONES MD 836.0 Tear Of Medial Cartilage Or Meniscus Of Knee Current 10/14/2008 MARIMAR JONES MD 836.0 Tear Of Medial Cartilage Or Meniscus Of Knee Current 10/14/2008 MARIMAR JONES MD 836.0 Tear Of Medial Cartilage Or Meniscus Of Knee Current 10/14/2008 FALLON MARTINEZ DO 836.0 Tear Of Medial Cartilage Or Meniscus Of Knee Current 10/14/2008 IJEOMA HARRINGTON JR 836.0 Tear Of Medial Cartilage Or Meniscus Of Knee Current 10/14/2008 MARIMAR JONES MD 836.0 Tear Of Medial Cartilage Or Meniscus Of Knee Current 10/14/2008 IJEOMA HARRINGTON JR 836.0 Tear Of Medial Cartilage Or Meniscus Of Knee Current 10/14/2008 IJEOMA HARRINGTON JR 836.0 Tear Of Medial Cartilage Or Meniscus Of Knee Current 10/14/2008 MARIMAR JONES MD 836.0 Tear Of Medial Cartilage Or Meniscus Of Knee Current 10/17/2008 KISHORE GONSALEZ DO F 782.3 Edema 10/17/2008 KISHORE GONSALEZ DO F 782.3 Edema 10/17/2008 782.3 Edema 10/17/2008 MARIMAR JONES MD 782.3 Edema 10/17/2008 TONYA SORENSEN APRN 782.3 Edema 10/17/2008 MARIMAR JONES MD 782.3 Edema 10/17/2008 MARIMAR JONES MD 782.3 Edema 10/17/2008 MARIMAR JONES MD 782.3 Edema 10/17/2008 FALLON MARTINEZ DO 782.3 Edema 10/17/2008 IJEOMA HARRINGTON JR 782.3 Edema 10/17/2008 MARIMAR JONES MD 782.3 Edema 10/17/2008 IJEOMA HARRINGTON JR 782.3 Edema 10/17/2008 IJEOMA HARRINGTON JR 782.3 Edema 10/17/2008 MARIMAR JONES MD 782.3 Edema 12/02/2008 KISHORE GONSALEZ DO 719.41 Pain In Joint Involving Shoulder Region 12/02/2008 KISHORE GONSALEZ DO 719.41 Pain In Joint Involving Shoulder Region 12/02/2008 719.41 Pain In Joint Involving Shoulder Region 12/02/2008 MARIMAR JONES MD 719.41 Pain In Joint Involving Shoulder Region 12/02/2008 TONYA SORENSEN APRN 719.41 Pain In Joint Involving Shoulder Region 12/02/2008 MARIMAR JONES MD 719.41 Pain In Joint Involving Shoulder Region 12/02/2008 MARIMAR JONES MD 719.41 Pain In Joint Involving Shoulder Region 12/02/2008 MARIMAR JONES MD 719.41 Pain In Joint Involving Shoulder Region 12/02/2008 FALLON MARTINEZ DO 719.41 Pain In Joint Involving Shoulder Region 12/02/2008 IJEOMA HARRINGTON JR 719.41 Pain In Joint Involving Shoulder Region 12/02/2008 MARIMAR JONES MD 719.41 Pain In Joint Involving Shoulder Region 12/02/2008 IJEOMA HARRINGTON JR 719.41 Pain In Joint Involving Shoulder Region 12/02/2008 IJEOMA HARRINGTON JR 719.41 Pain In Joint Involving Shoulder Region 12/02/2008 MARIMAR JONES MD 719.41 Pain In Joint Involving Shoulder Region 02/06/2009 KISHORE GONSALEZ DO V76.10 Breast Screening Unspecified 02/06/2009 KISHORE GONSALEZ DO F V76.10 Breast Screening Unspecified 02/06/2009 V76.10 Breast Screening Unspecified 02/06/2009 MARIMAR JONES MD V76.10 Breast Screening Unspecified 02/06/2009 TONYA SORENSEN APRN S V76.10 Breast Screening Unspecified 02/06/2009 MARIMAR JONES MD V76.10 Breast Screening Unspecified 02/06/2009 MARIMAR JONES MD V76.10 Breast Screening Unspecified 02/06/2009 MARIMAR JONES MD V76.10 Breast Screening Unspecified 02/06/2009 FALLON MARTINEZ DO V76.10 Breast Screening Unspecified 02/06/2009 IJEOMA HARRINGTON JR V76.10 Breast Screening Unspecified 02/06/2009 MARIMAR JONES MD V76.10 Breast Screening Unspecified 02/06/2009 IJEOMA HARRINGTON JR V76.10 Breast Screening Unspecified 02/06/2009 IJEOMA HARRINGTON JR V76.10 Breast Screening Unspecified 02/06/2009 MARIMAR JONES MD V76.10 Breast Screening Unspecified 02/23/2009 KISHORE GONSALEZ DO F 079.99 Unspecified Viral Infection 02/23/2009 KISHORE GONSALEZ DO F 079.99 Unspecified Viral Infection 02/23/2009 079.99 Unspecified Viral Infection 02/23/2009 MARIMAR JONES MD 079.99 Unspecified Viral Infection 02/23/2009 TONYA SORENSEN APRN S 079.99 Unspecified Viral Infection 02/23/2009 MARIMAR JONES MD 079.99 Unspecified Viral Infection 02/23/2009 MARIMAR JONES MD 079.99 Unspecified Viral Infection 02/23/2009 MARIMAR JONES MD 079.99 Unspecified Viral Infection 02/23/2009 FALLON MARTINEZ DO 079.99 Unspecified Viral Infection 02/23/2009 IJEOMA HARRINGTON JR 079.99 Unspecified Viral Infection 02/23/2009 MARIMAR JONES MD 079.99 Unspecified Viral Infection 02/23/2009 IJEOMA HARRINGTON JR 079.99 Unspecified Viral Infection 02/23/2009 IJEOMA HARRINGTON JR 079.99 Unspecified Viral Infection 02/23/2009 MARIMAR JONES MD 079.99 Unspecified Viral Infection 02/25/2009 KISHORE GONSALEZ DO F 728.85 Muscle Spasm 02/25/2009 KISHORE GONSALEZ DO F 728.85 Muscle Spasm 02/25/2009 728.85 Muscle Spasm 02/25/2009 MARIMAR JONES MD 728.85 Muscle Spasm 02/25/2009 TONYA SORENSEN APRN 728.85 Muscle Spasm 02/25/2009 MARIMAR JONES MD 728.85 Muscle Spasm 02/25/2009 MARIMAR JONES MD 728.85 Muscle Spasm 02/25/2009 MARIMAR JONES MD 728.85 Muscle Spasm 02/25/2009 FALLON MARTINEZ DO 728.85 Muscle Spasm 02/25/2009 IJEOMA HARRINGTON JR 728.85 Muscle Spasm 02/25/2009 MARIMAR JONES MD 728.85 Muscle Spasm 02/25/2009 IJEOMA HARRINGTON JR 728.85 Muscle Spasm 02/25/2009 IJEOMA HARRINGTON JR 728.85 Muscle Spasm 02/25/2009 MARIMAR JONES MD 728.85 Muscle Spasm 03/15/2009 KISHORE GONSALEZ DO 301.83 Pd Borderline 03/15/2009 KISHORE GONSALEZ DO F 301.83 Pd Borderline 03/15/2009 301.83 Pd Borderline 03/15/2009 MARIMAR JONES MD 301.83 Pd Borderline 03/15/2009 TONYA SORENSEN APRN S 301.83 Pd Borderline 03/15/2009 MARIMAR JONES MD 301.83 Pd Borderline 03/15/2009 MARIMAR JONES MD 301.83 Pd Borderline 03/15/2009 MARIMAR JONES MD 301.83 Pd Borderline 03/15/2009 FALLON MARTINEZ DO 301.83 Pd Borderline 03/15/2009 IJEOMA HARRINGTON JR 301.83 Pd Borderline 03/15/2009 MARIMAR JONES MD 301.83 Pd Borderline 03/15/2009 IJEOMA HARRINGTON JR 301.83 Pd Borderline 03/15/2009 IJEOMA HARRINGTON JR 301.83 Pd Borderline 03/15/2009 MARIMAR JONES MD 301.83 Pd Borderline 04/11/2009 KISHORE GONSALEZ DO F 780.8 Diaphoresis 04/11/2009 KISHORE GONSALEZ DO F 780.8 Diaphoresis 04/11/2009 780.8 Diaphoresis 04/11/2009 MARIMAR JONES MD 780.8 Diaphoresis 04/11/2009 TONYA SORENSEN APRN S 780.8 Diaphoresis 04/11/2009 MARIMAR JONES MD 780.8 Diaphoresis 04/11/2009 MARIMAR JONES MD 780.8 Diaphoresis 04/11/2009 MARIMAR JONES MD 780.8 Diaphoresis 04/11/2009 FALLON MARTINEZ DO 780.8 Diaphoresis 04/11/2009 IJEOMA HARRINGTON JR 780.8 Diaphoresis 04/11/2009 MARIMAR JONES MD 780.8 Diaphoresis 04/11/2009 IJEOMA HARRINGTON JR 780.8 Diaphoresis 04/11/2009 IJEOMA HARRINGTON JR 780.8 Diaphoresis 04/11/2009 MARIMAR JONES MD 780.8 Diaphoresis 04/19/2009 KISHORE GONSALEZ DO 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 04/19/2009 KISHORE GONSALEZ DO 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 04/19/2009 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 04/19/2009 MARIMAR JONES MD 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 04/19/2009 TONYA SORENSEN APRN 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 04/19/2009 MARIMAR JONES MD 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 04/19/2009 MARIMAR JONES MD 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 04/19/2009 MARIMAR JONES MD 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 04/19/2009 FALLON MARTINEZ DO 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 04/19/2009 IJEOMA HARRINGTON JR 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 04/19/2009 MARIMAR JONES MD 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 04/19/2009 IJEOMA HARRINGTON JR 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 04/19/2009 IJEOMA HARRINGTON JR 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 04/19/2009 MARIMAR JONES MD 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 04/21/2009 KISHORE GONSALEZ DO 726.10 Disorders Of Bursae And Tendons In Shoulder Region Unspecified 04/21/2009 KISHORE GONSALEZ DO 726.10 Disorders Of Bursae And Tendons In Shoulder Region Unspecified 04/21/2009 726.10 Disorders Of Bursae And Tendons In Shoulder Region Unspecified 04/21/2009 MARIMAR JONES MD 726.10 Disorders Of Bursae And Tendons In Shoulder Region Unspecified 04/21/2009 TONYA SORENSEN APRN S 726.10 Disorders Of Bursae And Tendons In Shoulder Region Unspecified 04/21/2009 MARIMAR JONES MD 726.10 Disorders Of Bursae And Tendons In Shoulder Region Unspecified 04/21/2009 MARIMAR JONES MD 726.10 Disorders Of Bursae And Tendons In Shoulder Region Unspecified 04/21/2009 MARIMAR JONES MD 726.10 Disorders Of Bursae And Tendons In Shoulder Region Unspecified 04/21/2009 FALLON MARTINEZ DO 726.10 Disorders Of Bursae And Tendons In Shoulder Region Unspecified 04/21/2009 IJEOMA HARRINGTON JR 726.10 Disorders Of Bursae And Tendons In Shoulder Region Unspecified 04/21/2009 MARIMAR JONES MD 726.10 Disorders Of Bursae And Tendons In Shoulder Region Unspecified 04/21/2009 IJEOMA HARRINGTON JR 726.10 Disorders Of Bursae And Tendons In Shoulder Region Unspecified 04/21/2009 IJEOMA HARRINGTON JR 726.10 Disorders Of Bursae And Tendons In Shoulder Region Unspecified 04/21/2009 MARIMAR JONES MD 726.10 Disorders Of Bursae And Tendons In Shoulder Region Unspecified 05/12/2009 KISHORE GONSALEZ DO NODX No Diagnosis 05/12/2009 KISHORE GONSALEZ DO NODX No Diagnosis 05/12/2009 NODX No Diagnosis 05/12/2009 MARIMAR JONES MD NODX No Diagnosis 05/12/2009 TONYA SORENSEN APRN S NODX No Diagnosis 05/12/2009 MARIMAR JONSE MD NODX No Diagnosis 05/12/2009 MARIMAR JONES MD NODX No Diagnosis 05/12/2009 MARIMAR JONES MD NODX No Diagnosis 05/12/2009 FALLON MARTINEZ DO NODX No Diagnosis 05/12/2009 IJEOMA HARRINGTON JR NODX No Diagnosis 05/12/2009 MARIMAR JONES MD NODX No Diagnosis 05/12/2009 IJEOMA HARRINGTON JR NODX No Diagnosis 05/12/2009 IJEOMA HARRINGTON JR NODX No Diagnosis 05/12/2009 MARIMAR JONES MD NODX No Diagnosis 2009 KISHORE GONSALEZ DO 726.0 Adhesive Capsulitis Of Shoulder 2009 KISHORE GONSALEZ DO 726.0 Adhesive Capsulitis Of Shoulder 2009 726.0 Adhesive Capsulitis Of Shoulder 2009 MARIMAR JONES MD 726.0 Adhesive Capsulitis Of Shoulder 2009 TONYA SORENSEN APRN 726.0 Adhesive Capsulitis Of Shoulder 2009 MARIMAR JONES MD 726.0 Adhesive Capsulitis Of Shoulder 2009 MARIMAR JONES MD 726.0 Adhesive Capsulitis Of Shoulder 2009 MARIMAR JONES MD 726.0 Adhesive Capsulitis Of Shoulder 2009 FALLON MARTINEZ DO 726.0 Adhesive Capsulitis Of Shoulder 2009 IJEOMA HARRINGTON JR 726.0 Adhesive Capsulitis Of Shoulder 2009 MARIMAR JONES MD 726.0 Adhesive Capsulitis Of Shoulder 2009 IJEOMA HARRINGTON JR 726.0 Adhesive Capsulitis Of Shoulder 2009 IJEOMA HARRINGTON JR 726.0 Adhesive Capsulitis Of Shoulder 2009 MARIMAR JONES MD 726.0 Adhesive Capsulitis Of Shoulder 06/02/2009 KISHORE GONSALEZ DO 179 Uterine Cancer 06/02/2009 KISHORE GONSALEZ DO V72.31 Pelvic Exam (internal) 06/02/2009 KISHORE GONSALEZ DO 179 Uterine Cancer 06/02/2009 KISHORE GONSALEZ DO V72.31 Pelvic Exam (internal) 06/02/2009 179 Uterine Cancer 06/02/2009 V72.31 Pelvic Exam ( internal) 06/02/2009 MARIMAR JONES MD 179 Uterine Cancer 06/02/2009 MARIMAR JONES MD V72.31 Pelvic Exam (internal) 06/02/2009 TONYA SORENSEN APRN S 179 Uterine Cancer 06/02/2009 OBDULIO SORENSEN APRNA S V72.31 Pelvic Exam (internal) 06/02/2009 MARIMAR JONES MD 179 Uterine Cancer 06/02/2009 MARIMAR JONES MD V72.31 Pelvic Exam (internal) 06/02/2009 MARIMAR JONES MD 179 Uterine Cancer 06/02/2009 MARIMAR JONES MD V72.31 Pelvic Exam (internal) 06/02/2009 MARIMAR JONES MD 179 Uterine Cancer 06/02/2009 MARIMAR JONES MD V72.31 Pelvic Exam (internal) 06/02/2009 MARTINEZ DO, FALLON K 179 Uterine Cancer 06/02/2009 MARTINEZ DO, FALLON K V72.31 Pelvic Exam (internal) 06/02/2009 IJEOMA HARRINGTON JR S 179 Uterine Cancer 06/02/2009 IJEOMA HARRINGTON JR S V72.31 Pelvic Exam (internal) 06/02/2009 MARIMAR JONES MD 179 Uterine Cancer 06/02/2009 MARIMAR JONES MD V72.31 Pelvic Exam (internal) 06/02/2009 IJEOMA HARRINGTON JR S 179 Uterine Cancer 06/02/2009 IJEOMA HARRINGTON JR S V72.31 Pelvic Exam (internal) 06/02/2009 LEN SPENCER IJEOMA S 179 Uterine Cancer 06/02/2009 LEN SPENCER IJEOMA S V72.31 Pelvic Exam (internal) 06/02/2009 MARIMAR JONES MD 179 Uterine Cancer 06/02/2009 MARIMAR JONES MD V72.31 Pelvic Exam (internal) 06/16/2009 KISHORE GONSALEZ DO 726.2 Other Affections Of Shoulder Region Not Elsewhere Classified 06/16/2009 KISHORE GONSALEZ DO 727.62 Nontraumatic Rupture Of Tendons Of Biceps (long Head) 06/16/2009 KISHORE GONSALEZ DO 726.2 Other Affections Of Shoulder Region Not Elsewhere Classified 06/16/2009 KISHORE GONSALEZ DO 727.62 Nontraumatic Rupture Of Tendons Of Biceps (long Head) 06/16/2009 726.2 Other Affections Of Shoulder Region Not Elsewhere Classified 06/16/2009 727.62 Nontraumatic Rupture Of Tendons Of Biceps (long Head) 06/16/2009 MARIMAR JONES MD 726.2 Other Affections Of Shoulder Region Not Elsewhere Classified 06/16/2009 MARIMAR JONES MD 727.62 Nontraumatic Rupture Of Tendons Of Biceps (long Head) 06/16/2009 TONYA SORENSEN APRN 726.2 Other Affections Of Shoulder Region Not Elsewhere Classified 06/16/2009 TONYA SORENSEN APRN 727.62 Nontraumatic Rupture Of Tendons Of Biceps (long Head) 06/16/2009 MARIMAR JONES MD 726.2 Other Affections Of Shoulder Region Not Elsewhere Classified 06/16/2009 MARIMAR JONES MD 727.62 Nontraumatic Rupture Of Tendons Of Biceps (long Head) 06/16/2009 MARIMAR JONES MD 726.2 Other Affections Of Shoulder Region Not Elsewhere Classified 06/16/2009 MARIMAR JONES MD 727.62 Nontraumatic Rupture Of Tendons Of Biceps (long Head) 06/16/2009 MARIMAR JONES MD 726.2 Other Affections Of Shoulder Region Not Elsewhere Classified 06/16/2009 MARIMAR JONES MD7.62 Nontraumatic Rupture Of Tendons Of Biceps (long Head) 06/16/2009 FALLON MARTINEZ DO 726.2 Other Affections Of Shoulder Region Not Elsewhere Classified 06/16/2009 FALLON MARTINEZ DO 727.62 Nontraumatic Rupture Of Tendons Of Biceps (long Head) 06/16/2009 IJEOMA HARRINGTON JR 726.2 Other Affections Of Shoulder Region Not Elsewhere Classified 06/16/2009 IJEOMA HARRINGTON JR 727.62 Nontraumatic Rupture Of Tendons Of Biceps (long Head) 06/16/2009 MARIMAR JONES MD 726.2 Other Affections Of Shoulder Region Not Elsewhere Classified 06/16/2009 MARIMAR JONES MD 727.62 Nontraumatic Rupture Of Tendons Of Biceps (long Head) 06/16/2009 IJEOMA HARRINGTON JR 726.2 Other Affections Of Shoulder Region Not Elsewhere Classified 06/16/2009 IJEOMA HARRINGTON JR 727.62 Nontraumatic Rupture Of Tendons Of Biceps (long Head) 06/16/2009 IJEOMA HARRINGTON JR 726.2 Other Affections Of Shoulder Region Not Elsewhere Classified 06/16/2009 IJEOMA HARRINGTON JR 727.62 Nontraumatic Rupture Of Tendons Of Biceps (long Head) 06/16/2009 MARIMAR JONES MD 726.2 Other Affections Of Shoulder Region Not Elsewhere Classified 06/16/2009 MARIMAR JONES MD7.62 Nontraumatic Rupture Of Tendons Of Biceps (long Head) 06/19/2009 KISHORE GONSALEZ DO 719.47 Pain In Joint Involving Ankle And Foot 06/19/2009 KISHORE GONSALEZ DO 719.47 Pain In Joint Involving Ankle And Foot 06/19/2009 719.47 Pain In Joint Involving Ankle And Foot 06/19/2009 MARIMAR JONES MD 719.47 Pain In Joint Involving Ankle And Foot 06/19/2009 TONYA SORENSEN APRN 719.47 Pain In Joint Involving Ankle And Foot 06/19/2009 MARIMAR JONES MD 719.47 Pain In Joint Involving Ankle And Foot 06/19/2009 MARIMAR JONES MD 719.47 Pain In Joint Involving Ankle And Foot 06/19/2009 MARIMAR JONES MD 719.47 Pain In Joint Involving Ankle And Foot 06/19/2009 FALLON MARTINEZ DO 719.47 Pain In Joint Involving Ankle And Foot 06/19/2009 IJEOMA HARRINGTON JR 719.47 Pain In Joint Involving Ankle And Foot 06/19/2009 MARIMAR JONES MD 719.47 Pain In Joint Involving Ankle And Foot 06/19/2009 IJEOMA HARRINGTON JR 719.47 Pain In Joint Involving Ankle And Foot 06/19/2009 IJEOMA HARRINGTON JR 719.47 Pain In Joint Involving Ankle And Foot 06/19/2009 MARIMAR JONES MD 719.47 Pain In Joint Involving Ankle And Foot 07/06/2009 KISHORE GONSALEZ DO 783.0 Decrease In Appetite 07/06/2009 KISHORE GONSALEZ DO 783.0 Decrease In Appetite 07/06/2009 783.0 Decrease In Appetite 07/06/2009 MARIMAR JONES MD 783.0 Decrease In Appetite 07/06/2009 TONYA SORENSEN APRN 783.0 Decrease In Appetite 07/06/2009 MARIMAR JONES MD 783.0 Decrease In Appetite 07/06/2009 MARIMAR JONES MD 783.0 Decrease In Appetite 07/06/2009 MARIMAR JONES MD 783.0 Decrease In Appetite 07/06/2009 FALLON MARTINEZ DO 783.0 Decrease In Appetite 07/06/2009 IJEOMA HARRINGTON JR 783.0 Decrease In Appetite 07/06/2009 MARIMAR JONES MD 783.0 Decrease In Appetite 07/06/2009 IJEOMA HARRINGTON JR S 783.0 Decrease In Appetite 07/06/2009 IJEOMA HARRINGTON JR S 783.0 Decrease In Appetite 07/06/2009 MARIMAR JONES MD 783.0 Decrease In Appetite 07/10/2009 KISHORE GONSALEZ DO F 623.0 Vaginal Dysplasia Mild 07/10/2009 KISHORE GONSALEZ DO F 623.0 Vaginal Dysplasia Mild 07/10/2009 623.0 Vaginal Dysplasia Mild 07/10/2009 MARIMAR JONES MD 623.0 Vaginal Dysplasia Mild 07/10/2009 EDU ENRIQUEZ, TONYA S 623.0 Vaginal Dysplasia Mild 07/10/2009 MARIMAR JONES MD 623.0 Vaginal Dysplasia Mild 07/10/2009 MARIMAR JONES MD 623.0 Vaginal Dysplasia Mild 07/10/2009 MARIMAR JONES MD 623.0 Vaginal Dysplasia Mild 07/10/2009 FALLON MARTINEZ DO K 623.0 Vaginal Dysplasia Mild 07/10/2009 IJEOMA HARRINGTON JR S 623.0 Vaginal Dysplasia Mild 07/10/2009 MARIMAR JONES MD 623.0 Vaginal Dysplasia Mild 07/10/2009 IJEOMA HARRINGTON JR S 623.0 Vaginal Dysplasia Mild 07/10/2009 IJEOMA HARRINGTON JR S 623.0 Vaginal Dysplasia Mild 07/10/2009 MARIMAR JONES MD 623.0 Vaginal Dysplasia Mild 08/10/2009 KISHORE GONSALEZ DO F 338.29 Other Chronic Pain 08/10/2009 KISHORE GONSALEZ DO 338.29 Other Chronic Pain 08/10/2009 338.29 Other Chronic Pain 08/10/2009 MARIMAR JONES MD 338.29 Other Chronic Pain 08/10/2009 EDU ENRIQUEZ, TONYA S 338.29 Other Chronic Pain 08/10/2009 MARIMAR JONES MD 338.29 Other Chronic Pain 08/10/2009 MARIMAR JONES MD 338.29 Other Chronic Pain 08/10/2009 MARIMAR JONES MD 338.29 Other Chronic Pain 08/10/2009 FALLON MARTINEZ DO K 338.29 Other Chronic Pain 08/10/2009 IJEOMA HARRINGTON JR 338.29 Other Chronic Pain 08/10/2009 MARIMAR JONES MD 338.29 Other Chronic Pain 08/10/2009 IJEOMA HARRINGTON JR S 338.29 Other Chronic Pain 08/10/2009 IJEOMA HARRINGTON JR S 338.29 Other Chronic Pain 08/10/2009 MARIMAR JONES MD 338.29 Other Chronic Pain 08/15/2009 GIOVANIHAMEED KISHORE F 300.00 Anxiety 08/15/2009 WALLACE MÁRQUEZ KISHORE F 300.00 Anxiety 08/15/2009 300.00 Anxiety 08/15/2009 MARIMAR JONES MD 300.00 Anxiety 08/15/2009 TONYA SORENSEN APRN S 300.00 Anxiety 08/15/2009 MARIMAR JONES MD 300.00 Anxiety 08/15/2009 MARIMAR JONES MD 300.00 Anxiety 08/15/2009 MARIMAR JONES MD 300.00 Anxiety 08/15/2009 JUAN MÁRQUEZ [place] Armando 300.00 Anxiety 08/15/2009 IJEOMA HARRINGTON JR S 300.00 Anxiety 08/15/2009 MARIMAR JONES MD 300.00 Anxiety 08/15/2009 IJEOMA HARRINGTON JR 300.00 Anxiety 08/15/2009 IJEOMA HARRINGTON JR S 300.00 Anxiety 08/15/2009 MARIMAR JONES MD 300.00 Anxiety 09/19/2009 GURPREET GONSALEZ DOEN F 338.4 Chronic Pain Syndrome 09/19/2009 GURPREET GONSALEZ DOEN F 729.2 NEURALGIA, NEURITIS, AND RADICULITIS, UNSPECIFIED 09/19/2009 GURPREET GONSALEZ DOEN F 338.4 Chronic Pain Syndrome 09/19/2009 GURPREET GONSALEZ DOEN F 729.2 NEURALGIA, NEURITIS, AND RADICULITIS, UNSPECIFIED 09/19/2009 338.4 Chronic Pain Syndrome 09/19/2009 729.2 NEURALGIA, NEURITIS, AND RADICULITIS, UNSPECIFIED 09/19/2009 MARIMAR JONES MD 338.4 Chronic Pain Syndrome 09/19/2009 MARIMAR JONES MD 729.2 NEURALGIA, NEURITIS, AND RADICULITIS, UNSPECIFIED 09/19/2009 KARL SORENSEN APRNNDA S 338.4 Chronic Pain Syndrome 09/19/2009 KARL SORENSEN APRNNDA S 729.2 NEURALGIA, NEURITIS, AND RADICULITIS, UNSPECIFIED 09/19/2009 MARIMAR JONES MD 338.4 Chronic Pain Syndrome 09/19/2009 MARIMAR JONES MD 729.2 NEURALGIA, NEURITIS, AND RADICULITIS, UNSPECIFIED 09/19/2009 MARIMAR JONES MD 338.4 Chronic Pain Syndrome 09/19/2009 MARIMAR JONES MD 729.2 NEURALGIA, NEURITIS, AND RADICULITIS, UNSPECIFIED 09/19/2009 MARIMAR JOENS MD 338.4 Chronic Pain Syndrome 09/19/2009 MARIMAR JONES MD9.2 NEURALGIA, NEURITIS, AND RADICULITIS, UNSPECIFIED 09/19/2009 MARTINEZ DO, [place] K 338.4 Chronic Pain Syndrome 09/19/2009 MARTINEZ DO, [place] K 729.2 NEURALGIA, NEURITIS, AND RADICULITIS, UNSPECIFIED 09/19/2009 IJEOMA HARRINGTON JR S 338.4 Chronic Pain Syndrome 09/19/2009 IJEOMA HARRINGTON JR 729.2 NEURALGIA, NEURITIS, AND RADICULITIS, UNSPECIFIED 09/19/2009 MARIMAR JONES MD 338.4 Chronic Pain Syndrome 09/19/2009 MARIMAR JONES MD 729.2 NEURALGIA, NEURITIS, AND RADICULITIS, UNSPECIFIED 09/19/2009 IJEOMA HARRINGTON JR S 338.4 Chronic Pain Syndrome 09/19/2009 IJEOMA HARRINGTON JR S 729.2 NEURALGIA, NEURITIS, AND RADICULITIS, UNSPECIFIED 09/19/2009 IJEOMA HARRINGTON JR S 338.4 Chronic Pain Syndrome 09/19/2009 IJEOMA HARRINGTON JR S 729.2 NEURALGIA, NEURITIS, AND RADICULITIS, UNSPECIFIED 09/19/2009 MARIMAR JONES MD 338.4 Chronic Pain Syndrome 09/19/2009 MARIMAR JONES MD 729.2 NEURALGIA, NEURITIS, AND RADICULITIS, UNSPECIFIED 10/16/2009 KISHORE GONSALEZ DO 311 Mo Depress Nos 10/16/2009 KISHORE GONSALEZ DO 311 Mo Depress Nos 10/16/2009 311 Mo Depress Nos 10/16/2009 MARIMAR JONES MD 311 Mo Depress Nos 10/16/2009 TONYA SORENSEN APRN 311 Mo Depress Nos 10/16/2009 MARIMAR JONES MD 311 Mo Depress Nos 10/16/2009 MARIMAR JONES MD 311 Mo Depress Nos 10/16/2009 MARIMAR JONES MD 311 Mo Depress Nos 10/16/2009 MARTINEZ DO, [place] K 311 Mo Depress Nos 10/16/2009 LEN JR, IJEOMA S 311 Mo Depress Nos 10/16/2009 MARIMAR JONES MD 311 Mo Depress Nos 10/16/2009 LEN JR, IJEOMA S 311 Mo Depress Nos 10/16/2009 LEN JR, IJEOMA S 311 Mo Depress Nos 10/16/2009 MARIMAR JONES MD 311 Mo Depress Nos 11/14/2009 KISHORE GONSALEZ DO F 599.0 Urinary Tract Infection 11/14/2009 KISHORE GONSALEZ DO F 599.0 Urinary Tract Infection 11/14/2009 599.0 Urinary Tract Infection 11/14/2009 MARIMAR JONES MD 599.0 Urinary Tract Infection 11/14/2009 TONYA SORENSEN APRN 599.0 Urinary Tract Infection 11/14/2009 MARIMAR JONES MD 599.0 Urinary Tract Infection 11/14/2009 MARIMAR JONES MD 599.0 Urinary Tract Infection 11/14/2009 MARIMAR JONES MD 599.0 Urinary Tract Infection 11/14/2009 MARTINEZ DO, [place] K 599.0 Urinary Tract Infection 11/14/2009 IJEOMA HARRINGTON JR S 599.0 Urinary Tract Infection 11/14/2009 MARIMAR JONES MD 599.0 Urinary Tract Infection 11/14/2009 IJEOMA HARRINGTON JR S 599.0 Urinary Tract Infection 11/14/2009 IJEOMA HARRINGTON JR S 599.0 Urinary Tract Infection 11/14/2009 MARIMAR JONES MD 599.0 Urinary Tract Infection 11/23/2009 KISHORE GONSALEZ DO 305.1 Nicotine Dependence 11/23/2009 KISHORE GONSALEZ DO F 307.89 Other Pain Disorders Related To Psychological Factors 11/23/2009 KISHORE GONSALEZ DO F 305.1 Nicotine Dependence 11/23/2009 KISHORE GONSALEZ DO F 307.89 Other Pain Disorders Related To Psychological Factors 11/23/2009 305.1 Nicotine Dependence 11/23/2009 307.89 Other Pain Disorders Related To Psychological Factors 11/23/2009 MARIMAR JONES MD 305.1 Nicotine Dependence 11/23/2009 MARIMAR JONES MD 307.89 Other Pain Disorders Related To Psychological Factors 11/23/2009 OBDULIO SORENSEN APRNA S 305.1 Nicotine Dependence 11/23/2009 EDU ENRIQUEZ, TONYA S 307.89 Other Pain Disorders Related To Psychological Factors 11/23/2009 MARIMAR JONES MD 305.1 Nicotine Dependence 11/23/2009 MARIMAR JONES MD 307.89 Other Pain Disorders Related To Psychological Factors 11/23/2009 MARIMAR JONES MD 305.1 Nicotine Dependence 11/23/2009 MARIMAR JONES MD 307.89 Other Pain Disorders Related To Psychological Factors 11/23/2009 MARIMAR JONES MD 305.1 Nicotine Dependence 11/23/2009 MARIMAR JONES MD 307.89 Other Pain Disorders Related To Psychological Factors 11/23/2009 MARTINEZ DO, [place] K 305.1 Nicotine Dependence 11/23/2009 MARTINEZ DO, [place] K 307.89 Other Pain Disorders Related To Psychological Factors 11/23/2009 IJEOMA HARRINGTON JR S 305.1 Nicotine Dependence 11/23/2009 IJEOMA HARRINGTON JR S 307.89 Other Pain Disorders Related To Psychological Factors 11/23/2009 MARIMAR JONSE MD 305.1 Nicotine Dependence 11/23/2009 MARIMAR JONES MD 307.89 Other Pain Disorders Related To Psychological Factors 11/23/2009 LEN SPENCER IJEOMA S 305.1 Nicotine Dependence 11/23/2009 IJEOMA HARRINGTON JR S 307.89 Other Pain Disorders Related To Psychological Factors 11/23/2009 IJEOMA HARRINGTON JR S 305.1 Nicotine Dependence 11/23/2009 IJEOMA HARRINGTON JR S 307.89 Other Pain Disorders Related To Psychological Factors 11/23/2009 MARIMAR JONES MD 305.1 Nicotine Dependence 11/23/2009 MARIMAR JONES MD 307.89 Other Pain Disorders Related To Psychological Factors 01/01/2010 KISHORE GONSALEZ DO 296.30 MO DEPRESSIVE RECURRENT UNSPECIFIED 01/01/2010 KISHORE GONSALEZ DO 304.00 Sa Opioid Dependence 01/01/2010 KISHORE GONSALEZ DO 305.60 Sa Cocaine Abuse 01/01/2010 KISHORE GONSALEZ DO 307.47 Si Dyssomnia Nos 01/01/2010 KISHORE GONSALEZ DO 316 PF PSYCHIC FACTORS MED COND 01/01/2010 KISHORE GONSALEZ DO 296.30 MO DEPRESSIVE RECURRENT UNSPECIFIED 01/01/2010 KISHORE GONSALEZ DO 304.00 Sa Opioid Dependence 01/01/2010 WERDER DO, KISHORE F 305.60 Sa Cocaine Abuse 01/01/2010 GIOVANIDER DO, KISHORE F 307.47 Si Dyssomnia Nos 01/01/2010 GIOVANIDER DO, KISHORE F 316 PF PSYCHIC FACTORS MED COND 01/01/2010 296.30 MO DEPRESSIVE RECURRENT UNSPECIFIED 01/01/2010 304.00 Sa Opioid Dependence 01/01/2010 305.60 Sa Cocaine Abuse 01/01/2010 307.47 Si Dyssomnia Nos 01/01/2010 316 Pf Psychic Factors Med Cond 01/01/2010 MARIMAR JONES MD 296.30 MO DEPRESSIVE RECURRENT UNSPECIFIED 01/01/2010 MARIMAR JONES MD 304.00 Sa Opioid Dependence 01/01/2010 MARIMAR JONES MD 305.60 Sa Cocaine Abuse 01/01/2010 MARIMAR JONES MD 307.47 Si Dyssomnia Nos 01/01/2010 MARIMAR JONES MD 316 Pf Psychic Factors Med Cond 01/01/2010 EDU TRAVERTINE INSTALLER, TONYA S 296.30 MO DEPRESSIVE RECURRENT UNSPECIFIED 01/01/2010 EDU TRAVERTINE INSTALLER, TONYA S 304.00 Sa Opioid Dependence 01/01/2010 EDU TRAVERTINE INSTALLER, TONYA S 305.60 Sa Cocaine Abuse 01/01/2010 EDU TRAVERTINE INSTALLER, TONYA S 307.47 Si Dyssomnia Nos 01/01/2010 EDU TRAVERTINE INSTALLER, TONYA S 316 Pf Psychic Factors Med Cond 01/01/2010 MARIMAR JONES MD 296.30 MO DEPRESSIVE RECURRENT UNSPECIFIED 01/01/2010 MARIMAR JONES MD 304.00 Sa Opioid Dependence 01/01/2010 MARIMAR JONES MD 305.60 Sa Cocaine Abuse 01/01/2010 MARIMAR JONES MD 307.47 Si Dyssomnia Nos 01/01/2010 MARIMAR JONES MD 316 Pf Psychic Factors Med Cond 01/01/2010 MARIMAR JONES MD 296.30 MO DEPRESSIVE RECURRENT UNSPECIFIED 01/01/2010 MARIMAR JONES MD 304.00 Sa Opioid Dependence 01/01/2010 MARIMAR JONES MD 305.60 Sa Cocaine Abuse 01/01/2010 MARIMAR JONES MD 307.47 Si Dyssomnia Nos 01/01/2010 MARIMAR JONES MD 316 Pf Psychic Factors Med Cond 01/01/2010 MARIMAR JONES MD 296.30 MO DEPRESSIVE RECURRENT UNSPECIFIED 01/01/2010 MARIMAR JONES MD 304.00 Sa Opioid Dependence 01/01/2010 MARIMAR JONES MD 305.60 Sa Cocaine Abuse 01/01/2010 MARIMAR JONES MD 307.47 Si Dyssomnia Nos 01/01/2010 MARIMAR JONES MD 316 Pf Psychic Factors Med Cond 01/01/2010 MARTINEZ DO, [place] K 296.30 MO DEPRESSIVE RECURRENT UNSPECIFIED 01/01/2010 MARTINEZ DO, [place] K 304.00 Sa Opioid Dependence 01/01/2010 MARTINEZ DO, [place] K 305.60 Sa Cocaine Abuse 01/01/2010 MARTINEZ DO, [place] K 307.47 Si Dyssomnia Nos 01/01/2010 MARTINEZ DO, [place] K 316 Pf Psychic Factors Med Cond 01/01/2010 IJEOMA HARRINGTON JR 296.30 MO DEPRESSIVE RECURRENT UNSPECIFIED 01/01/2010 IJEOMA HARRINGTON JR 304.00 Sa Opioid Dependence 01/01/2010 IJEOMA HARRINGTON JR 305.60 Sa Cocaine Abuse 01/01/2010 IJEOMA HARRINGTON JR 307.47 Si Dyssomnia Nos 01/01/2010 IJEOMA HARRINGTON JR 316 Pf Psychic Factors Med Cond 01/01/2010 MARIMAR JONES MD 296.30 MO DEPRESSIVE RECURRENT UNSPECIFIED 01/01/2010 MARIMAR JONES MD 304.00 Sa Opioid Dependence 01/01/2010 MARIMAR JONES MD 305.60 Sa Cocaine Abuse 01/01/2010 MARIMAR JONES MD 307.47 Si Dyssomnia Nos 01/01/2010 MARIMAR JONES MD 316 Pf Psychic Factors Med Cond 01/01/2010 IJEOMA HARRINGTON JR 296.30 MO DEPRESSIVE RECURRENT UNSPECIFIED 01/01/2010 IJEOMA HARRINGTON JR 304.00 Sa Opioid Dependence 01/01/2010 IJEOMA HARRINGTON JR S 305.60 Sa Cocaine Abuse 01/01/2010 IJEOMA HARRINGTON JR 307.47 Si Dyssomnia Nos 01/01/2010 IJEOMA HARRINGTON JR 316 Pf Psychic Factors Med Cond 01/01/2010 IJEOMA HARRINGTON JR 296.30 MO DEPRESSIVE RECURRENT UNSPECIFIED 01/01/2010 IJEOMA HARRINGTON JR 304.00 Sa Opioid Dependence 01/01/2010 IJEOMA HARRINGTON JR 305.60 Sa Cocaine Abuse 01/01/2010 IJEOMA HARRINGTON JR 307.47 Si Dyssomnia Nos 01/01/2010 IJEOMA HARRINGTON JR 316 Pf Psychic Factors Med Cond 01/01/2010 MARIMAR JONES MD 296.30 MO DEPRESSIVE RECURRENT UNSPECIFIED 01/01/2010 MARIMAR JONES MD 304.00 Sa Opioid Dependence 01/01/2010 MARIMAR JONES MD 305.60 Sa Cocaine Abuse 01/01/2010 MARIMAR JONES MD 307.47 Si Dyssomnia Nos 01/01/2010 MARIMAR JONES MD 316 Pf Psychic Factors Med Cond 03/10/2010 KISHORE GONSALEZ DO 922.31 Contusion Of Trunk, Back 03/10/2010 KISHORE GONSALEZ DO 922.31 Contusion Of Trunk, Back 03/10/2010 922.31 Contusion Of Trunk, Back 03/10/2010 MARIMAR JONES MD 922.31 Contusion Of Trunk, Back 03/10/2010 TONYA SORENSEN APRN 922.31 Contusion Of Trunk, Back 03/10/2010 MARIMAR JONES MD 922.31 Contusion Of Trunk, Back 03/10/2010 MARIMAR JONES MD 922.31 Contusion Of Trunk, Back 03/10/2010 MARIMAR JONES MD 922.31 Contusion Of Trunk, Back 03/10/2010 [place] MARTINEZ DO 922.31 Contusion Of Trunk, Back 03/10/2010 IJEOMA HARRINGTON JR 922.31 Contusion Of Trunk, Back 03/10/2010 MARIMAR JONES MD 922.31 Contusion Of Trunk, Back 03/10/2010 IJEOMA HARRINGTON JR 922.31 Contusion Of Trunk, Back 03/10/2010 IJEOMA HARRINGTON JR 922.31 Contusion Of Trunk, Back 03/10/2010 MARIMAR JONES MD 922.31 Contusion Of Trunk, Back 03/21/2010 KISHORE GONSALEZ DO 786.50 Chest Pain Or Discomfort 03/21/2010 KISHORE GONSALEZ DO 786.50 Chest Pain Or Discomfort 03/21/2010 786.50 Chest Pain Or Discomfort 03/21/2010 MARIMAR JONES MD 786.50 Chest Pain Or Discomfort 03/21/2010 EDU TRAVERTINE INSTALLER, TONYA S 786.50 Chest Pain Or Discomfort 03/21/2010 ROBERT FERREIRA, MARIMAR 786.50 Chest Pain Or Discomfort 03/21/2010 MARIMAR JONES MD 786.50 Chest Pain Or Discomfort 03/21/2010 MARIMAR JONES MD 786.50 Chest Pain Or Discomfort 03/21/2010 [place] MARTINEZ DO 786.50 Chest Pain Or Discomfort 03/21/2010 IJEOMA HARRINGTON JR S 786.50 Chest Pain Or Discomfort 03/21/2010 MARIMAR JONES MD 786.50 Chest Pain Or Discomfort 03/21/2010 IJEOMA HARRINGTON JR 786.50 Chest Pain Or Discomfort 03/21/2010 LEN SPENCER, IJEOMA S 786.50 Chest Pain Or Discomfort 03/21/2010 MARIMAR JONES MD 786.50 Chest Pain Or Discomfort 03/28/2010 KISHORE GONSALEZ DO 414.01 Cad 03/28/2010 KISHORE GONSALEZ DO F 414.01 Cad 03/28/2010 414.01 Cad 03/28/2010 MARIMAR JONES MD 414.01 Cad 03/28/2010 TONYA SORENSEN APRN 414.01 Cad 03/28/2010 MARIMAR JONES MD 414.01 Cad 03/28/2010 ROBERT FERREIRA, MARIMAR 414.01 Cad 03/28/2010 ROBERT FERREIRA, MARIMAR 414.01 Cad 03/28/2010 [place] MARTINEZ DO 414.01 Cad 03/28/2010 IJEOMA HARRINGTON JR S 414.01 Cad 03/28/2010 ROBERT FERREIRA, MARIMAR 414.01 Cad 03/28/2010 IJEOMA HARRINTGON JR 414.01 Cad 03/28/2010 IJEOMA HARRINGTON JR S 414.01 Cad 03/28/2010 MARIMAR JONES MD 414.01 Cad 04/03/2010 KISHORE GONSALEZ DO F 272.4 Hyperlipidemia 04/03/2010 KISHORE GONSALEZ DO F 304.30 Cannabis Dependence 04/03/2010 KISHORE GONSALEZ DO F 272.4 Hyperlipidemia 04/03/2010 KISHORE GONSALEZ DO F 304.30 Cannabis Dependence 04/03/2010 272.4 Hyperlipidemia 04/03/2010 304.30 Cannabis Dependence 04/03/2010 MARIMAR JONES MD 272.4 Hyperlipidemia 04/03/2010 MARIMAR JONES MD 304.30 Cannabis Dependence 04/03/2010 EDU TRAVERTINE INSTALLER, TONYA S 272.4 Hyperlipidemia 04/03/2010 OBDULIO SORENSEN APRNA S 304.30 Cannabis Dependence 04/03/2010 MARIMAR JONES MD 272.4 Hyperlipidemia 04/03/2010 MARIMAR JONES MD 304.30 Cannabis Dependence 04/03/2010 MARIMAR JONES MD 272.4 Hyperlipidemia 04/03/2010 MARIMAR JONES MD 304.30 Cannabis Dependence 04/03/2010 MARIMAR JONES MD 272.4 Hyperlipidemia 04/03/2010 MARIMAR JONES MD 304.30 Cannabis Dependence 04/03/2010 MARTINEZ DO, [place] K 272.4 Hyperlipidemia 04/03/2010 MARTINEZ DO, [place] K 304.30 Cannabis Dependence 04/03/2010 IJEOMA HARRINGTON JR S 272.4 Hyperlipidemia 04/03/2010 IJEOMA HARRINGTON JR S 304.30 Cannabis Dependence 04/03/2010 MARIMAR JONES MD 272.4 Hyperlipidemia 04/03/2010 MARIMAR JONES MD 304.30 Cannabis Dependence 04/03/2010 IJEOMA HARRINGTON JR S 272.4 Hyperlipidemia 04/03/2010 IJEOMA HARRINGTON JR S 304.30 Cannabis Dependence 04/03/2010 IJEOMA HARRINGTON JR S 272.4 Hyperlipidemia 04/03/2010 IJEOMA HARRINGTON JR S 304.30 Cannabis Dependence 04/03/2010 MARIMAR JONES MD 272.4 Hyperlipidemia 04/03/2010 MARIMAR JONES MD 304.30 Cannabis Dependence 04/10/2010 KISHORE GONSALEZ DO 724.02 Spinal Stenosis, Lumbar Region 04/10/2010 KISHORE GONSALEZ DO 724.02 Spinal Stenosis, Lumbar Region 04/10/2010 724.02 Spinal Stenosis, Lumbar Region 04/10/2010 MARIMAR JONES MD 724.02 Spinal Stenosis, Lumbar Region 04/10/2010 TONYA SORENSEN APRN S 724.02 Spinal Stenosis, Lumbar Region 04/10/2010 MARIMAR JONES MD 724.02 Spinal Stenosis, Lumbar Region 04/10/2010 MARIMAR JONES MD 724.02 Spinal Stenosis, Lumbar Region 04/10/2010 MARIMAR JONES MD 724.02 Spinal Stenosis, Lumbar Region 04/10/2010 MARTINEZ DO, [place] K 724.02 Spinal Stenosis, Lumbar Region 04/10/2010 IJEOMA HARRINGTON JR 724.02 Spinal Stenosis, Lumbar Region 04/10/2010 MARIMAR JONES MD 724.02 Spinal Stenosis, Lumbar Region 04/10/2010 IJEOMA HARRINGTON JR 724.02 Spinal Stenosis, Lumbar Region 04/10/2010 IJEOMA HARRINGTON JR 724.02 Spinal Stenosis, Lumbar Region 04/10/2010 MARIMAR JONES MD 724.02 Spinal Stenosis, Lumbar Region 04/28/2010 KISHORE GONSALEZ DO 782.1 Rash And Other Nonspecific Skin Eruption 04/28/2010 KISHORE GONSALEZ DO 782.1 Rash And Other Nonspecific Skin Eruption 04/28/2010 782.1 Rash And Other Nonspecific Skin Eruption 04/28/2010 MARIMAR JONES MD 782.1 Rash And Other Nonspecific Skin Eruption 04/28/2010 TONYA SORENSEN APRN 782.1 Rash And Other Nonspecific Skin Eruption 04/28/2010 MARIMAR JONES MD 782.1 Rash And Other Nonspecific Skin Eruption 04/28/2010 MARIMAR JONES MD 782.1 Rash And Other Nonspecific Skin Eruption 04/28/2010 MARIMAR JONES MD 782.1 Rash And Other Nonspecific Skin Eruption 04/28/2010 [place] MARTINEZ DO 782.1 Rash And Other Nonspecific Skin Eruption 04/28/2010 IJEOMA HARRINGTON JR 782.1 Rash And Other Nonspecific Skin Eruption 04/28/2010 MARIMAR JONES MD 782.1 Rash And Other Nonspecific Skin Eruption 04/28/2010 IJEOMA HARRINGTON JR 782.1 Rash And Other Nonspecific Skin Eruption 04/28/2010 IJEOMA HARRINGTON JR 782.1 Rash And Other Nonspecific Skin Eruption 04/28/2010 MARIMAR JONES MD 782.1 Rash And Other Nonspecific Skin Eruption 05/16/2010 KISHORE GONSALEZ DO 300.02 An Gen Anxiety 05/16/2010 KISHORE GONSALEZ DO 307.40 Insomnia 05/16/2010 KISHORE GONSALEZ DO 300.02 An Gen Anxiety 05/16/2010 KISHORE GONSALEZ DO 307.40 Insomnia 05/16/2010 300.02 An Gen Anxiety 05/16/2010 307.40 Insomnia 05/16/2010 MARIMAR JONES MD 300.02 An Gen Anxiety 05/16/2010 MARIMAR JONES MD 307.40 Insomnia 05/16/2010 EDU TRAVERTINE INSTALLER, TONYA S 300.02 An Gen Anxiety 05/16/2010 TONYA SORENSEN APRN S 307.40 Insomnia 05/16/2010 MARIMAR JONES MD 300.02 An Gen Anxiety 05/16/2010 MARIMAR JONES MD 307.40 Insomnia 05/16/2010 MARIMAR JONES MD 300.02 An Gen Anxiety 05/16/2010 MARIMAR JONES MD 307.40 Insomnia 05/16/2010 MARIMAR JONES MD 300.02 An Gen Anxiety 05/16/2010 MARIMAR JONES MD 307.40 Insomnia 05/16/2010 MARTINEZ DOFALLON K 300.02 An Gen Anxiety 05/16/2010 MARTINEZ DOFALLON K 307.40 Insomnia 05/16/2010 IJEOMA HARRINGTON JR 300.02 An Gen Anxiety 05/16/2010 IJEOMA HARRINGTON JR 307.40 Insomnia 05/16/2010 MARIMAR JONES MD 300.02 An Gen Anxiety 05/16/2010 MARIMAR JONES MD 307.40 Insomnia 05/16/2010 IJEOMA HARRINGTON JR 300.02 An Gen Anxiety 05/16/2010 IJEOMA HARRINGTON JR 307.40 Insomnia 05/16/2010 IJEOMA HARRINGTON JR 300.02 An Gen Anxiety 05/16/2010 IJEOMA HARRINGTON JR 307.40 Insomnia 05/16/2010 MARIMAR JONES MD 300.02 An Gen Anxiety 05/16/2010 MARIMAR JONES MD 307.40 Insomnia 09/18/2010 KISHORE GONSALEZ DO 627.9 Menopausal Disorder 09/18/2010 KISHORE GONSALEZ DO 627.9 Menopausal Disorder 09/18/2010 627.9 Menopausal Disorder 09/18/2010 MARIMAR JONES MD 627.9 Menopausal Disorder 09/18/2010 TONYA SORENSEN APRN S 627.9 Menopausal Disorder 09/18/2010 MARIMAR JONES MD 627.9 Menopausal Disorder 09/18/2010 MARIMAR JONES MD7.9 Menopausal Disorder 09/18/2010 MARIMAR JONES MD7.9 Menopausal Disorder 09/18/2010 [place] MARTINEZ DO 627.9 Menopausal Disorder 09/18/2010 IJEOMA HARRINGTON JR 627.9 Menopausal Disorder 09/18/2010 MARIMAR JONES MD 627.9 Menopausal Disorder 09/18/2010 HARRINGTON JR, IJEOMA S 627.9 Menopausal Disorder 09/18/2010 IJEOMA HARRINGTON JR 627.9 Menopausal Disorder 09/18/2010 MARIMAR JONES MD 627.9 Menopausal Disorder 10/12/2010 KISHORE GONSALEZ DO F 301.6 Dependent Personality Disorder 10/12/2010 KISHORE GONSALEZ DO F 301.6 Dependent Personality Disorder 10/12/2010 301.6 Dependent Personality Disorder 10/12/2010 MARIMAR JONES MD 301.6 Dependent Personality Disorder 10/12/2010 TONYA SORENSEN APRN S 301.6 Dependent Personality Disorder 10/12/2010 MARIMAR JONES MD 301.6 Dependent Personality Disorder 10/12/2010 MARIMAR JONES MD 301.6 Dependent Personality Disorder 10/12/2010 MARIMAR JONES MD 301.6 Dependent Personality Disorder 10/12/2010 [place] MARTINEZ DO 301.6 Dependent Personality Disorder 10/12/2010 IJEOMA HARRINGTON JR S 301.6 Dependent Personality Disorder 10/12/2010 MARIMAR JONES MD 301.6 Dependent Personality Disorder 10/12/2010 IJEOMA HARRINGTON JR S 301.6 Dependent Personality Disorder 10/12/2010 IJEOMA HARRINGTON JR 301.6 Dependent Personality Disorder 10/12/2010 MARIMAR JONES MD 301.6 Dependent Personality Disorder 10/17/2010 KISHORE GONSALEZ DO F 078.10 Viral Warts Unspecified 10/17/2010 KISHORE GONSALEZ DO F 702.0 Actinic Keratosis 10/17/2010 KISHORE GONSALEZ DO F 078.10 Viral Warts Unspecified 10/17/2010 KISHORE GONSALEZ DO F 702.0 Actinic Keratosis 10/17/2010 078.10 Viral Warts Unspecified 10/17/2010 702.0 Actinic Keratosis 10/17/2010 MARIMAR JONES MD 078.10 Viral Warts Unspecified 10/17/2010 MARIMAR JONES MD 702.0 Actinic Keratosis 10/17/2010 TONYA SORENSEN APRN S 078.10 Viral Warts Unspecified 10/17/2010 OBDULIO SORENSEN APRNA S 702.0 Actinic Keratosis 10/17/2010 MARIMAR JONES MD 078.10 Viral Warts Unspecified 10/17/2010 MARIMAR JONES MD 702.0 Actinic Keratosis 10/17/2010 MARIMAR JONES MD 078.10 Viral Warts Unspecified 10/17/2010 MARIMAR JONES MD 702.0 Actinic Keratosis 10/17/2010 MARIMAR JONES MD 078.10 Viral Warts Unspecified 10/17/2010 MARIMAR JONES MD 702.0 Actinic Keratosis 10/17/2010 F[place] MARTINEZ DO 078.10 Viral Warts Unspecified 10/17/2010 FALLON AMRTINEZ DO 702.0 Actinic Keratosis 10/17/2010 IJEOMA HARRINGTON JR S 078.10 Viral Warts Unspecified 10/17/2010 IJEOMA HARRINGTON JR S 702.0 Actinic Keratosis 10/17/2010 MARIMAR JONES MD 078.10 Viral Warts Unspecified 10/17/2010 MARIMAR JONES MD 702.0 Actinic Keratosis 10/17/2010 IJEOMA HARRINGTON JR S 078.10 Viral Warts Unspecified 10/17/2010 IJEOMA HARRINGTON JR S 702.0 Actinic Keratosis 10/17/2010 IJEOMA HARRINGTON JR S 078.10 Viral Warts Unspecified 10/17/2010 IJEOMA HARRINGTON JR S 702.0 Actinic Keratosis 10/17/2010 MARIMAR JONES MD 078.10 Viral Warts Unspecified 10/17/2010 MARIMAR JONES MD 702.0 Actinic Keratosis 11/05/2010 KISHORE GONSALEZ DO 845.00 Unspecified Site Of Ankle Sprain 11/05/2010 KISHORE GONSALEZ DO 845.00 Unspecified Site Of Ankle Sprain 11/05/2010 845.00 Unspecified Site Of Ankle Sprain 11/05/2010 MARIMAR JONES MD 845.00 Unspecified Site Of Ankle Sprain 11/05/2010 TONYA SORENSEN APRN 845.00 Unspecified Site Of Ankle Sprain 11/05/2010 MARIMAR JONES MD 845.00 Unspecified Site Of Ankle Sprain 11/05/2010 MARIMAR JONES MD 845.00 Unspecified Site Of Ankle Sprain 11/05/2010 MARIMAR JONES MD 845.00 Unspecified Site Of Ankle Sprain 11/05/2010 FALLON MARTINEZ DO 845.00 Unspecified Site Of Ankle Sprain 11/05/2010 IJEOMA HARRINGTON JR 845.00 Unspecified Site Of Ankle Sprain 11/05/2010 MARIMAR JONES MD 845.00 Unspecified Site Of Ankle Sprain 11/05/2010 IJEOMA HARRINGTON JR 845.00 Unspecified Site Of Ankle Sprain 11/05/2010 IJEOMA HARRINGTON JR 845.00 Unspecified Site Of Ankle Sprain 11/05/2010 MARIMAR JONES MD 845.00 Unspecified Site Of Ankle Sprain 12/13/2010 KISHORE GONSALEZ DO F 462 Pharyngitis Acute 12/13/2010 KISHORE GONSALEZ DO F 535.50 Gastritis Unspec 12/13/2010 KISHORE GONSALEZ DO F 462 Pharyngitis Acute 12/13/2010 KISHORE GONSALEZ DO F 535.50 Gastritis Unspec 12/13/2010 462 Pharyngitis Acute 12/13/2010 535.50 Gastritis Unspec 12/13/2010 MARIMAR JONES MD 462 Pharyngitis Acute 12/13/2010 MARIMAR JONES MD 535.50 Gastritis Unspec 12/13/2010 TONYA SORENSEN APRN S 462 Pharyngitis Acute 12/13/2010 TONYA SORENSEN APRN 535.50 Gastritis Unspec 12/13/2010 MARIMAR JONES MD 462 Pharyngitis Acute 12/13/2010 MARIMAR JONES MD 535.50 Gastritis Unspec 12/13/2010 MARIMAR JONES MD 462 Pharyngitis Acute 12/13/2010 MARIMAR JONES MD 535.50 Gastritis Unspec 12/13/2010 MARIMAR JONES MD 462 Pharyngitis Acute 12/13/2010 MARIMAR JONES MD 535.50 Gastritis Unspec 12/13/2010 F[place] MARTINEZ DO 462 Pharyngitis Acute 12/13/2010 FALLON MARTINEZ DO 535.50 Gastritis Unspec 12/13/2010 IJEOMA HARRINGTON JR 462 Pharyngitis Acute 12/13/2010 IJEOMA HARRINGTON JR 535.50 Gastritis Unspec 12/13/2010 MARIMAR JONES MD 462 Pharyngitis Acute 12/13/2010 MARIMAR JONES MD 535.50 Gastritis Unspec 12/13/2010 HARRINGTON JR, IJEOMA S 462 Pharyngitis Acute 12/13/2010 IJEOMA HARRINGTON JR S 535.50 Gastritis Unspec 12/13/2010 IJEOMA HARRINGTON JR S 462 Pharyngitis Acute 12/13/2010 LEN SPENCER, IJEOMA S 535.50 Gastritis Unspec 12/13/2010 MARIMAR JONES MD 462 Pharyngitis Acute 12/13/2010 MARIMAR JONES MD 535.50 Gastritis Unspec 12/31/2010 KISHORE GONSALEZ DO F 466.0 Bronchitis, Acute 12/31/2010 KISHORE GONSALEZ DO 466.0 Bronchitis, Acute 12/31/2010 466.0 Bronchitis, Acute 12/31/2010 MARIMAR JONES MD 466.0 Bronchitis, Acute 12/31/2010 TONYA SORENSEN APRN 466.0 Bronchitis, Acute 12/31/2010 MARIMAR JONES MD 466.0 Bronchitis, Acute 12/31/2010 MARIMAR JONES MD 466.0 Bronchitis, Acute 12/31/2010 MARIMAR JONES MD 466.0 Bronchitis, Acute 12/31/2010 FALLON MARTINEZ DO 466.0 Bronchitis, Acute 12/31/2010 IJEOMA HARRINGTON JR S 466.0 Bronchitis, Acute 12/31/2010 MARIMAR JONES MD 466.0 Bronchitis, Acute 12/31/2010 IJEOMA HARRINGTON JR S 466.0 Bronchitis, Acute 12/31/2010 IJEOMA HARRINGTON JR S 466.0 Bronchitis, Acute 12/31/2010 MARIMAR JONES MD 466.0 Bronchitis, Acute 01/22/2011 KISHORE GONSALEZ DO 782.0 Disturbance Of Skin Sensation 01/22/2011 KISHORE GONSALEZ DO 782.0 Disturbance Of Skin Sensation 01/22/2011 782.0 Disturbance Of Skin Sensation 01/22/2011 MARIMAR JONES MD 782.0 Disturbance Of Skin Sensation 01/22/2011 TONYA SORENSEN APRN 782.0 Disturbance Of Skin Sensation 01/22/2011 MARIMAR JONES MD 782.0 Disturbance Of Skin Sensation 01/22/2011 MARIMAR JONES MD 782.0 Disturbance Of Skin Sensation 01/22/2011 MARIMAR JONES MD 782.0 Disturbance Of Skin Sensation 01/22/2011 FALLON MARTINEZ DO 782.0 Disturbance Of Skin Sensation 01/22/2011 IJEOMA HARRINGTON JR 782.0 Disturbance Of Skin Sensation 01/22/2011 MARIMAR JONES MD 782.0 Disturbance Of Skin Sensation 01/22/2011 IJEOMA HARRINGTON JR 782.0 Disturbance Of Skin Sensation 01/22/2011 IJEOMA HARRINGTON JR 782.0 Disturbance Of Skin Sensation 01/22/2011 MARIMAR JONES MD 782.0 Disturbance Of Skin Sensation 03/06/2011 KISHORE GONSALEZ DO 729.5 Arm Pain 03/06/2011 KISHORE GONSALEZ DO 729.5 Arm Pain 03/06/2011 729.5 Arm Pain 03/06/2011 MARIMAR JONES MD 729.5 Arm Pain 03/06/2011 TONYA SORENSEN APRN 729.5 Arm Pain 03/06/2011 MARIMAR JONES MD 729.5 Arm Pain 03/06/2011 MARIMAR JONES MD 729.5 Arm Pain 03/06/2011 MARIMAR JONES MD 729.5 Arm Pain 03/06/2011 FALLON MARTINEZ DO 729.5 Arm Pain 03/06/2011 IJEOMA HARRINGTON JR 729.5 Arm Pain 03/06/2011 MARIMAR JONES MD 729.5 Arm Pain 03/06/2011 IJEOMA HARRINGTON JR 729.5 Arm Pain 03/06/2011 IJEOMA HARRINGTON JR 729.5 Arm Pain 03/06/2011 MARIMAR JONES MD 729.5 Arm Pain 04/16/2011 KISHORE GONSALEZ DO V68.1 Issue Of Repeat Prescriptions 04/16/2011 KISHORE GONSALEZ DO V68.1 Issue Of Repeat Prescriptions 04/16/2011 V68.1 Issue Of Repeat Prescriptions 04/16/2011 MARIMAR JONES MD V68.1 Issue Of Repeat Prescriptions 04/16/2011 TONYA SORENSEN APRN V68.1 Issue Of Repeat Prescriptions 04/16/2011 MARIMAR JONES MD V68.1 Issue Of Repeat Prescriptions 04/16/2011 MARIMAR JONES MD V68.1 Issue Of Repeat Prescriptions 04/16/2011 MARIMAR JONES MD V68.1 Issue Of Repeat Prescriptions 04/16/2011 FALLON MARTINEZ DO V68.1 Issue Of Repeat Prescriptions 04/16/2011 IJEOMA HARRINGTON JR V68.1 Issue Of Repeat Prescriptions 04/16/2011 MARIMAR JONES MD V68.1 Issue Of Repeat Prescriptions 04/16/2011 IJEOMA HARRINGTON JR V68.1 Issue Of Repeat Prescriptions 04/16/2011 IJEOMA HARRINGTON JR V68.1 Issue Of Repeat Prescriptions 04/16/2011 MARIMAR JONES MD V68.1 Issue Of Repeat Prescriptions 06/07/2011 KISHORE GONSALEZ DO 132.0 Lice (head) 06/07/2011 KISHORE GONSALEZ DO 132.0 Lice (head) 06/07/2011 132.0 Lice (head) 06/07/2011 MARIMAR JONES MD 132.0 Lice (head) 06/07/2011 TONYA SORENSEN APRN 132.0 Lice (head) 06/07/2011 MARIMAR JONES MD 132.0 Lice (head) 06/07/2011 MARIMAR JONES MD 132.0 Lice (head) 06/07/2011 MARIMAR JONES MD 132.0 Lice (head) 06/07/2011 FALLON MARTINEZ DO 132.0 Lice (head) 06/07/2011 IJEOMA HARRINGTON JR 132.0 Lice (head) 06/07/2011 MARIMAR JONES MD 132.0 Lice (head) 06/07/2011 IJEOMA HARRINGTON JR 132.0 Lice (head) 06/07/2011 IJEOMA HARRINGTON JR 132.0 Lice (head) 06/07/2011 MARIMAR JONES MD 132.0 Lice (head) 07/04/2011 KISHORE GONSALEZ DO 486 Pneumonia Unspecified 07/04/2011 KISHORE GONSALEZ DO 780.79 Malaise And Fatigue 07/04/2011 KISHORE GONSALEZ DO 486 Pneumonia Unspecified 07/04/2011 KISHORE GONSALEZ DO 780.79 Malaise And Fatigue 07/04/2011 486 Pneumonia Unspecified 07/04/2011 780.79 Malaise And Fatigue 07/04/2011 MARIMAR JONES MD 486 Pneumonia Unspecified 07/04/2011 MARIMAR JONES MD 780.79 Malaise And Fatigue 07/04/2011 TONYA SORENSEN APRN 486 Pneumonia Unspecified 07/04/2011 TONYA SORENSEN APRN 780.79 Malaise And Fatigue 07/04/2011 ROBERT FERREIRA, MARIMAR 486 Pneumonia Unspecified 07/04/2011 MARIMAR JONES MD 780.79 Malaise And Fatigue 07/04/2011 ROBERT FERREIRA, MARIMAR 486 Pneumonia Unspecified 07/04/2011 MARIMAR JONES MD 780.79 Malaise And Fatigue 07/04/2011 ROBERT FERREIRA, MARIMAR 486 Pneumonia Unspecified 07/04/2011 MARIMAR JONES MD 780.79 Malaise And Fatigue 07/04/2011 MARTINEZ DO, FALLON K 486 Pneumonia Unspecified 07/04/2011 MARTINEZ DO, FALLON K 780.79 Malaise And Fatigue 07/04/2011 IJEOMA HARRINGTON JR S 486 Pneumonia Unspecified 07/04/2011 IJEOMA HARRINGTON JR S 780.79 Malaise And Fatigue 07/04/2011 MARIMAR JONES MD 486 Pneumonia Unspecified 07/04/2011 MARIMAR JONES MD 780.79 Malaise And Fatigue 07/04/2011 LEN SPENCER, IJEOMA S 486 Pneumonia Unspecified 07/04/2011 IJEOMA HARRINGTON JR S 780.79 Malaise And Fatigue 07/04/2011 LEN SPENCER IJEOMA S 486 Pneumonia Unspecified 07/04/2011 IJEOMA HARRINGTON JR S 780.79 Malaise And Fatigue 07/04/2011 MARIMAR JONES MD 486 Pneumonia Unspecified 07/04/2011 MARIMAR JONES MD 780.79 Malaise And Fatigue 08/26/2011 KISHORE GONSALEZ DO F 110.5 Dermatophytosis Of The Body 08/26/2011 KISHORE GONSALEZ DO F V58.69 Medication High Risk 08/26/2011 KISHORE GONSALEZ DO F 110.5 Dermatophytosis Of The Body 08/26/2011 KISHORE GONSALEZ DO F V58.69 Medication High Risk 08/26/2011 110.5 Dermatophytosis Of The Body 08/26/2011 V58.69 Medication High Risk 08/26/2011 MARIMAR JONES MD 110.5 Dermatophytosis Of The Body 08/26/2011 MARIMAR JONES MD V58.69 Medication High Risk 08/26/2011 TONYA SORENSEN APRN 110.5 Dermatophytosis Of The Body 08/26/2011 TONYA SORENSEN APRN V58.69 Medication High Risk 08/26/2011 MARIMAR JONES MD 110.5 Dermatophytosis Of The Body 08/26/2011 MARIMAR JONES MD V58.69 Medication High Risk 08/26/2011 MARIMAR JONES MD 110.5 Dermatophytosis Of The Body 08/26/2011 MARIMAR JONES MD V58.69 Medication High Risk 08/26/2011 MARIMAR JONES MD 110.5 Dermatophytosis Of The Body 08/26/2011 MARIMAR JONES MD V58.69 Medication High Risk 08/26/2011 MARTINEZ DO, FALLON K 110.5 Dermatophytosis Of The Body 08/26/2011 MARTINEZ DO, FALLON K V58.69 Medication High Risk 08/26/2011 IJEOMA HARRINGTON JR S 110.5 Dermatophytosis Of The Body 08/26/2011 IJEOMA HARRINGTON JR S V58.69 Medication High Risk 08/26/2011 MARIMAR JONES MD 110.5 Dermatophytosis Of The Body 08/26/2011 MARIMAR JONES MD V58.69 Medication High Risk 08/26/2011 IJEOMA HARRINGTON JR S 110.5 Dermatophytosis Of The Body 08/26/2011 IJEOMA HARRINGTON JR S V58.69 Medication High Risk 08/26/2011 IJEOMA HARRINGTON JR S 110.5 Dermatophytosis Of The Body 08/26/2011 IJEOMA HARRINGTON JR S V58.69 Medication High Risk 08/26/2011 MARIMAR JONES MD 110.5 Dermatophytosis Of The Body 08/26/2011 MARIMAR JONES MD V58.69 Medication High Risk 09/23/2011 GURPREET GONSALEZ DOEN F 078.10 Warts 09/23/2011 GURPREET GONSALEZ DOEN F 701.9 Skin Tag 09/23/2011 GURPREET GONSALEZ DOEN F 078.10 Warts 09/23/2011 GURPREET GONSALEZ DOEN F 701.9 Skin Tag 09/23/2011 078.10 Warts 09/23/2011 701.9 Skin Tag 09/23/2011 MARIMAR JONES MD 078.10 Warts 09/23/2011 MARIMAR JONES MD 701.9 Skin Tag 09/23/2011 TONYA SORENSEN APRN 078.10 Warts 09/23/2011 EDU ENRIQUEZ, TONYA S 701.9 Skin Tag 09/23/2011 MARIMAR JONES MD 078.10 Warts 09/23/2011 MARIMAR JONES MD 701.9 Skin Tag 09/23/2011 MARIMAR JONES MD 078.10 Warts 09/23/2011 MARIMAR JONES MD 701.9 Skin Tag 09/23/2011 MARIMAR JONES MD 078.10 Warts 09/23/2011 MARIMAR JONES MD 701.9 Skin Tag 09/23/2011 MARTINEZ DO, FALLON K 078.10 Warts 09/23/2011 MARTINEZ DO, FALLON K 701.9 Skin Tag 09/23/2011 IJEOMA HARRINGTON JR 078.10 Warts 09/23/2011 IJEOMA HARRINGTON JR 701.9 Skin Tag 09/23/2011 MARIMAR JONES MD 078.10 Warts 09/23/2011 MARIMAR JONES MD 701.9 Skin Tag 09/23/2011 IJEOMA HARRINGTON JR S 078.10 Warts 09/23/2011 IJEOMA HARRINGTON JR 701.9 Skin Tag 09/23/2011 IJEOMA HARRINGTON JR 078.10 Warts 09/23/2011 IJEOMA HARRINGTON JR 701.9 Skin Tag 09/23/2011 MARIMAR JONES MD 078.10 Warts 09/23/2011 MARIMAR JONES MD 701.9 Skin Tag 09/30/2011 KISHORE GONSALEZ DO F 078.10 Warts 09/30/2011 KISHORE GONSALEZ DO 078.10 Warts 09/30/2011 078.10 Warts 09/30/2011 MARIMAR JONES MD 078.10 Warts 09/30/2011 TONYA SORENSEN APRN S 078.10 Warts 09/30/2011 MARIMAR JONES MD 078.10 Warts 09/30/2011 MARIMAR JONES MD 078.10 Warts 09/30/2011 MARIMAR JONES MD 078.10 Warts 09/30/2011 MARTINEZ DOJOSÉ MIGUELA K 078.10 Warts 09/30/2011 IJEOMA HARRINGTON JR 078.10 Warts 09/30/2011 MARIMAR JONES MD 078.10 Warts 09/30/2011 IJEOMA HARRINGTON JR 078.10 Warts 09/30/2011 IJEOMA HARRINGTON JR 078.10 Warts 09/30/2011 MARIMAR JONES MD 078.10 Warts 11/25/2011 KISHORE GONSALEZ DO 716.90 UNSPECIFIED ARTHROPATHY SITE UNSPECIFIED 11/25/2011 KISHORE GONSALEZ DO 716.90 UNSPECIFIED ARTHROPATHY SITE UNSPECIFIED 11/25/2011 716.90 UNSPECIFIED ARTHROPATHY SITE UNSPECIFIED 11/25/2011 MARIMAR JONES MD 716.90 UNSPECIFIED ARTHROPATHY SITE UNSPECIFIED 11/25/2011 TONYA SORENSEN APRN 716.90 UNSPECIFIED ARTHROPATHY SITE UNSPECIFIED 11/25/2011 MARIMAR JONES MD 716.90 UNSPECIFIED ARTHROPATHY SITE UNSPECIFIED 11/25/2011 MARIMAR JNOES MD 716.90 UNSPECIFIED ARTHROPATHY SITE UNSPECIFIED 11/25/2011 MARIMAR JONES MD 716.90 UNSPECIFIED ARTHROPATHY SITE UNSPECIFIED 11/25/2011 FALLON MARTINEZ DO 716.90 UNSPECIFIED ARTHROPATHY SITE UNSPECIFIED 11/25/2011 IJEOAM HARRINGTON JR 716.90 UNSPECIFIED ARTHROPATHY SITE UNSPECIFIED 11/25/2011 MARIMAR JONES MD 716.90 UNSPECIFIED ARTHROPATHY SITE UNSPECIFIED 11/25/2011 IJEOMA HARRINGTON JR 716.90 UNSPECIFIED ARTHROPATHY SITE UNSPECIFIED 11/25/2011 IJEOMA HARRINGTON JR 716.90 UNSPECIFIED ARTHROPATHY SITE UNSPECIFIED 11/25/2011 MARIMAR JONES MD 716.90 UNSPECIFIED ARTHROPATHY SITE UNSPECIFIED 12/12/2011 KISHORE GONSALEZ DO 296.32 MO DEPRESSIVE RECURRENT MODERATE 12/12/2011 KISHORE GONSALEZ DO 301.83 PD BORDERLINE 12/12/2011 KISHORE GONSALEZ DO 296.32 MO DEPRESSIVE RECURRENT MODERATE 12/12/2011 KISHORE GONSALEZ DO 301.83 PD BORDERLINE 12/12/2011 296.32 MO DEPRESSIVE RECURRENT MODERATE 12/12/2011 301.83 PD BORDERLINE 12/12/2011 MARIMAR JONES MD 296.32 MO DEPRESSIVE RECURRENT MODERATE 12/12/2011 MARIMAR JONES MD 301.83 PD BORDERLINE 12/12/2011 TONYA SORENSEN APRN S 296.32 MO DEPRESSIVE RECURRENT MODERATE 12/12/2011 OBDULIO SORENSEN APRNA S 301.83 PD BORDERLINE 12/12/2011 MARIMAR JONES MD 296.32 MO DEPRESSIVE RECURRENT MODERATE 12/12/2011 MARIMAR JONES MD 301.83 PD BORDERLINE 12/12/2011 MARIMAR JONES MD 296.32 MO DEPRESSIVE RECURRENT MODERATE 12/12/2011 MARIMAR JONES MD 301.83 PD BORDERLINE 12/12/2011 MARIMAR JONES MD 296.32 MO DEPRESSIVE RECURRENT MODERATE 12/12/2011 MARIMAR JONES MD 301.83 PD BORDERLINE 12/12/2011 MARTINEZ DO FALLON K 296.32 MO DEPRESSIVE RECURRENT MODERATE 12/12/2011 MARTINEZ DO, FALLON K 301.83 PD BORDERLINE 12/12/2011 LEN SPENCER IJEOMA S 296.32 MO DEPRESSIVE RECURRENT MODERATE 12/12/2011 LEN SPENCER IJEOMA S 301.83 PD BORDERLINE 12/12/2011 MARIMAR JONES MD 296.32 MO DEPRESSIVE RECURRENT MODERATE 12/12/2011 MARIMAR JONES MD 301.83 PD BORDERLINE 12/12/2011 LEN SPENCER IJEOMA S 296.32 MO DEPRESSIVE RECURRENT MODERATE 12/12/2011 LEN SPENCER IJEOMA S 301.83 PD BORDERLINE 12/12/2011 LEN SPENCER IJEOMA S 296.32 MO DEPRESSIVE RECURRENT MODERATE 12/12/2011 LEN SPENCER IJEOMA S 301.83 PD BORDERLINE 12/12/2011 MARIMAR JONES MD 296.32 MO DEPRESSIVE RECURRENT MODERATE 12/12/2011 MARIMAR JONES MD 301.83 PD BORDERLINE 01/24/2012 KISHORE GONSALEZ DO 924.9 CONTUSION OF UNSPECIFIED SITE 01/24/2012 KISHORE GONSALEZ DO 924.9 CONTUSION OF UNSPECIFIED SITE 01/24/2012 924.9 Contusion Of Unspecified Site 01/24/2012 MARIMAR JONES MD 924.9 Contusion Of Unspecified Site 01/24/2012 TONYA SORENSEN APRN S 924.9 Contusion Of Unspecified Site 01/24/2012 MARIMAR JONES MD 924.9 Contusion Of Unspecified Site 01/24/2012 MARIMAR JONES MD 924.9 Contusion Of Unspecified Site 01/24/2012 MARIMAR JONES MD 924.9 Contusion Of Unspecified Site 01/24/2012 FALLON MARTINEZ DO 924.9 Contusion Of Unspecified Site 01/24/2012 IJEOMA HARRINGTON JR 924.9 Contusion Of Unspecified Site 01/24/2012 MARIMAR JONES MD 924.9 Contusion Of Unspecified Site 01/24/2012 IJEOMA HARRINGTON JR 924.9 Contusion Of Unspecified Site 01/24/2012 IJEOMA HARRINGTON JR 924.9 Contusion Of Unspecified Site 01/24/2012 MARIMAR JONES MD 924.9 Contusion Of Unspecified Site 03/04/2012 KISHORE GONSALEZ DO 724.4 BACK PAIN WITH RADIATION 03/04/2012 KISHORE GONSALEZ DO 724.4 BACK PAIN WITH RADIATION 03/04/2012 724.4 BACK PAIN WITH RADIATION 03/04/2012 MARIMAR JONES MD 724.4 BACK PAIN WITH RADIATION 03/04/2012 TONYA SORENSEN APRN 724.4 BACK PAIN WITH RADIATION 03/04/2012 MARIMAR JONES MD 724.4 BACK PAIN WITH RADIATION 03/04/2012 MARIMAR JONES MD 724.4 BACK PAIN WITH RADIATION 03/04/2012 MARIMAR JONES MD 724.4 BACK PAIN WITH RADIATION 03/04/2012 FALLON MARTINEZ DO 724.4 BACK PAIN WITH RADIATION 03/04/2012 IJEOMA HARRINGTON JR 724.4 BACK PAIN WITH RADIATION 03/04/2012 MARIMAR JONES MD 724.4 BACK PAIN WITH RADIATION 03/04/2012 IJEOMA HARRINGTON JR 724.4 BACK PAIN WITH RADIATION 03/04/2012 IJEOMA HARRINGTON JR 724.4 BACK PAIN WITH RADIATION 03/04/2012 MARIMAR JONES MD 724.4 BACK PAIN WITH RADIATION 04/24/2012 KISHORE GONSALEZ DO 296.90 MOOD DISORDER 04/24/2012 KISHORE GONSALEZ DO 296.90 MOOD DISORDER 04/24/2012 296.90 MOOD DISORDER 04/24/2012 MARIMAR JONES MD 296.90 MOOD DISORDER 04/24/2012 TONYA SORENSEN APRN 296.90 MOOD DISORDER 04/24/2012 MARIMAR JONES MD 296.90 MOOD DISORDER 04/24/2012 MARIMAR JONES MD 296.90 MOOD DISORDER 04/24/2012 MARIMAR JONES MD 296.90 MOOD DISORDER 04/24/2012 MARTINEZ FALLON MÁRQUEZ 296.90 MOOD DISORDER 04/24/2012 IJEOMA HARRINGTON JR S 296.90 MOOD DISORDER 04/24/2012 MARIMAR JONES MD 296.90 MOOD DISORDER 04/24/2012 IJEOMA HARRINGTON JR 296.90 MOOD DISORDER 04/24/2012 IJEOMA HARRINGTON JR 296.90 MOOD DISORDER 04/24/2012 MARIMAR JONES MD 296.90 MOOD DISORDER 08/03/2012 KISHORE GONSALEZ DO F 307.47 SI DYSSOMNIA NOS 08/03/2012 KISHORE GONSALEZ DO F 307.47 SI DYSSOMNIA NOS 08/03/2012 307.47 SI DYSSOMNIA NOS 08/03/2012 MARIMAR JONES MD 307.47 SI DYSSOMNIA NOS 08/03/2012 TONYA SORENSEN APRN 307.47 SI DYSSOMNIA NOS 08/03/2012 MARIMAR JONES MD 307.47 SI DYSSOMNIA NOS 08/03/2012 MARIMAR JONES MD 307.47 SI DYSSOMNIA NOS 08/03/2012 MARIMAR JONES MD 307.47 SI DYSSOMNIA NOS 08/03/2012 FALLON MARTINEZ DO 307.47 SI DYSSOMNIA NOS 08/03/2012 IJEOMA HARRINGTON JR 307.47 SI DYSSOMNIA NOS 08/03/2012 MARIMAR JONES MD 307.47 SI DYSSOMNIA NOS 08/03/2012 IJEOMA HARRINGTON JR 307.47 SI DYSSOMNIA NOS 08/03/2012 IJEOMA HARRINGTON JR 307.47 SI DYSSOMNIA NOS 08/03/2012 MARIMAR JONES MD 307.47 SI DYSSOMNIA NOS 01/28/2013 272.4 OTHER AND UNSPECIFIED HYPERLIPIDEMIA 01/28/2013 414.00 CORONARY ATHEROSCLEROSIS OF UNSPECIFIED TYPE OF VESSEL [place] OR GRAFT 01/28/2013 MARIMAR JONES MD 272.4 OTHER AND UNSPECIFIED HYPERLIPIDEMIA 01/28/2013 MARIMAR JONES MD 414.00 CORONARY ATHEROSCLEROSIS OF UNSPECIFIED TYPE OF VESSEL [place] OR GRAFT 01/28/2013 TONYA SORENSEN APRN 272.4 OTHER AND UNSPECIFIED HYPERLIPIDEMIA 01/28/2013 OBDULIO SORENSEN APRNA S 414.00 CORONARY ATHEROSCLEROSIS OF UNSPECIFIED TYPE OF VESSEL [place] OR GRAFT 01/28/2013 MARIMAR JONES MD 272.4 OTHER AND UNSPECIFIED HYPERLIPIDEMIA 01/28/2013 MARIMAR JONES MD 414.00 CORONARY ATHEROSCLEROSIS OF UNSPECIFIED TYPE OF VESSEL [place] OR GRAFT 01/28/2013 MARIMAR JONES MD 272.4 OTHER AND UNSPECIFIED HYPERLIPIDEMIA 01/28/2013 MARIMAR JONES MD 414.00 CORONARY ATHEROSCLEROSIS OF UNSPECIFIED TYPE OF VESSEL [place] OR GRAFT 01/28/2013 MARIMAR JONES MD 272.4 OTHER AND UNSPECIFIED HYPERLIPIDEMIA 01/28/2013 MARIMAR JONES MD 414.00 CORONARY ATHEROSCLEROSIS OF UNSPECIFIED TYPE OF VESSEL [place] OR GRAFT 01/28/2013 MARTINEZ DO FALLON K 272.4 OTHER AND UNSPECIFIED HYPERLIPIDEMIA 01/28/2013 MARTINEZ DO FALLON K 414.00 CORONARY ATHEROSCLEROSIS OF UNSPECIFIED TYPE OF VESSEL [place] OR GRAFT 01/28/2013 IJEOMA HARRINGTON JR 272.4 OTHER AND UNSPECIFIED HYPERLIPIDEMIA 01/28/2013 IJEOMA HARRINGTON JR S 414.00 CORONARY ATHEROSCLEROSIS OF UNSPECIFIED TYPE OF VESSEL [place] OR GRAFT 01/28/2013 MARIMAR JONES MD 272.4 OTHER AND UNSPECIFIED HYPERLIPIDEMIA 01/28/2013 MARIMAR JONES MD 414.00 CORONARY ATHEROSCLEROSIS OF UNSPECIFIED TYPE OF VESSEL [place] OR GRAFT 01/28/2013 IJEOMA HARRINGTON JR 272.4 OTHER AND UNSPECIFIED HYPERLIPIDEMIA 01/28/2013 IJEOMA HARRINGTON JR S 414.00 CORONARY ATHEROSCLEROSIS OF UNSPECIFIED TYPE OF VESSEL [place] OR GRAFT 01/28/2013 IJEOMA HARRINGTON JR 272.4 OTHER AND UNSPECIFIED HYPERLIPIDEMIA 01/28/2013 IJEOMA HARRINGTON JR S 414.00 CORONARY ATHEROSCLEROSIS OF UNSPECIFIED TYPE OF VESSEL [place] OR GRAFT 01/28/2013 MARIMAR JONES MD 272.4 OTHER AND UNSPECIFIED HYPERLIPIDEMIA 01/28/2013 MARIMAR JONES MD 414.00 CORONARY ATHEROSCLEROSIS OF UNSPECIFIED TYPE OF VESSEL [place] OR GRAFT 07/15/2013 MARIMAR JONES MD 705.1 PRICKLY HEAT 07/15/2013 KARL SORENSEN APRNNDA S 705.1 PRICKLY HEAT 07/15/2013 MARIMAR JONES MD 705.1 PRICKLY HEAT 07/15/2013 MARIMAR JONES MD 705.1 PRICKLY HEAT 07/15/2013 MARIMAR JONES MD 705.1 PRICKLY HEAT 07/15/2013 FALLON MARTINEZ DO 705.1 PRICKLY HEAT 07/15/2013 IJEOMA HARRINGTON JR 705.1 PRICKLY HEAT 07/15/2013 MARIMAR JONES MD 705.1 PRICKLY HEAT 07/15/2013 IJEOMA HARRINGTON JR 705.1 PRICKLY HEAT 07/15/2013 IJEOMA HARRINGTON JR 705.1 PRICKLY HEAT 07/15/2013 MARIMAR JONES MD 705.1 PRICKLY HEAT 08/19/2013 TONYA SORENSEN APRN 724.2 LUMBAGO/ LOW BACK PAIN 08/19/2013 MARIMAR JONES MD 724.2 LUMBAGO/ LOW BACK PAIN 08/19/2013 MARIMAR JONES MD 724.2 LUMBAGO/ LOW BACK PAIN 08/19/2013 MARIMAR JONES MD 724.2 LUMBAGO/ LOW BACK PAIN 08/19/2013 FALLON MARTINEZ DO 724.2 LUMBAGO/ LOW BACK PAIN 08/19/2013 IJEOMA HARRINGTON JR 724.2 LUMBAGO/ LOW BACK PAIN 08/19/2013 MARIMAR JONES MD 724.2 LUMBAGO/ LOW BACK PAIN 08/19/2013 IJEOMA HARRINGTON JR 724.2 LUMBAGO/ LOW BACK PAIN 08/19/2013 IJEOMA HARRINGTON JR 724.2 LUMBAGO/ LOW BACK PAIN 08/19/2013 MARIMAR JONES MD 724.2 LUMBAGO/ LOW BACK PAIN 11/19/2013 MARIMAR JONES MD 309.81 AN PTSD 11/19/2013 MARIMAR JONES MD 309.81 AN PTSD 11/19/2013 FALLON MARTINEZ DO 309.81 AN PTSD 11/19/2013 IJEOMA HARRINGTON JR 309.81 AN PTSD 11/19/2013 MARIMAR JONES MD 309.81 AN PTSD 11/19/2013 IJEOMA HARRINGTON JR 309.81 AN PTSD 11/19/2013 IJEOMA HARRINGTON JR 309.81 AN PTSD 11/19/2013 MARIMAR JONES MD 309.81 AN PTSD 04/25/2014 MARIMAR JONES MD 782.0 DISTURBANCE OF SKIN SENSATION 04/25/2014 IJEOMA HARRINGTON JR 782.0 DISTURBANCE OF SKIN SENSATION 04/25/2014 IJEOMA HARRINGTON JR 782.0 DISTURBANCE OF SKIN SENSATION 04/25/2014 MARIMAR JONES MD 782.0 DISTURBANCE OF SKIN SENSATION 09/26/2014 MARIMAR JONES MD 686.9 UNSPECIFIED LOCAL INFECTION OF SKIN AND SUBCUTANEOUS TISSUE 05/21/2016 KAM WRIGHT, ALI FACP CCDS Ot E78.5 HYPERLIPIDEMIA, UNSPECIFIED 05/21/2016 KAM FERREIRA FACMirian, ALI FACP CCDS Ot I25.10 ATHSCL HEART DISEASE OF [place] CORONARY 05/21/2016 KAM FERREIRA FACC, ALI FACP CCDS Ot R07.89 OTHER CHEST PAIN 05/21/2016 KAM FERREIRA FACC, ALI FACP CCDS Ot Z72.0 TOBACCO USE 05/21/2016 KAM FERREIRA FACC, ALI FACP CCDS Ot Z79.899 OTHER CAN RECONDITIONER (CURRENT) DRUG THERAPY 05/21/2016 KAM FERREIRA FACC, ALI FACP CCDS Ot Z91.19 PATIENT'S NONCOMPLIANCE W [facility] 06/05/2016 KAM FERREIRA FACC, ALI FACP CCDS Ot E78.5 HYPERLIPIDEMIA, UNSPECIFIED 06/05/2016 KAM FERREIRA FACC, ALI FACP CCDS Ot I25.10 ATHSCL HEART DISEASE OF [place] CORONARY 06/05/2016 KAM FERREIRA FACC, ALI FACP CCDS Ot R07.89 OTHER CHEST PAIN 06/05/2016 KAM FERREIRA FACC, ALI FACP CCDS Ot Z72.0 TOBACCO USE 06/05/2016 KAM FERREIRA FACC, ALI FACP CCDS Ot Z79.899 OTHER CARE HOME (CURRENT) DRUG THERAPY 06/05/2016 KAM FERREIRA FACC, ALI FACP CCDS Ot Z91.19 PATIENT'S NONCOMPLIANCE W [facility] 09/21/2016 DARY CHATTERJEE MD Ot F17.210 NICOTINE DEPENDENCE, CIGARETTES, UNCOMPL 09/21/2016 DARY CHATTERJEE MD Ot S52.501A UNSP FRACTURE OF THE LOWER END OF RIGHT 09/21/2016 DARY CHATTERJEE MD Ot S52.614A NONDISP FX OF RIGHT ULNA STYLOID PROCESS 09/21/2016 DARY CHATTERJEE MD Ot S69.91XA UNSP INJURY OF RIGHT WRIST, HAND AND FIN 09/21/2016 DARY CHATTERJEE MD Ot W00.0XXA FALL ON SAME LEVEL DUE TO ICE AND SNOW, 09/21/2016 DARY CHATTERJEE MD Ot Y92.[address] OF OCCURRENCE OF T 09/21/2016 DARY CHATTERJEE MD Ot Y93.89 ACTIVITY, OTHER SPECIFIED 09/21/2016 DARY CHATTERJEE MD Ot Y99.0 CIVILIAN ACTIVITY DONE FOR INCOME OR PAY 09/21/2016 DARY CHATTERJEE MD Ot Z79.82 CARE HOME (CURRENT) USE OF ASPIRIN 09/21/2016 DARY CHATTERJEE MD Ot Z79.899 OTHER CAN RECONDITIONER (CURRENT) DRUG THERAPY 09/23/2016 DARY CHATTERJEE MD Ot F17.210 NICOTINE DEPENDENCE, CIGARETTES, UNCOMPL 09/23/2016 DARY CHATTERJEE MD Ot S52.501A UNSP FRACTURE OF THE LOWER END OF RIGHT 09/23/2016 DARY CHATTERJEE MD Ot S52.614A NONDISP FX OF RIGHT ULNA STYLOID PROCESS 09/23/2016 DARY CHATTERJEE MD Ot S69.91XA UNSP INJURY OF RIGHT WRIST, HAND AND FIN 09/23/2016 DARY CHATTERJEE MD Ot W00.0XXA FALL ON SAME LEVEL DUE TO ICE AND SNOW, 09/23/2016 DARY CHATTERJEE MD Ot Y92.[address] OF OCCURRENCE OF T 09/23/2016 DARY CHATTERJEE MD Ot Y93.89 ACTIVITY, OTHER SPECIFIED 09/23/2016 DARY CHATTERJEE MD Ot Y99.0 CIVILIAN ACTIVITY DONE FOR INCOME OR PAY 09/23/2016 DARY CHATTERJEE MD Ot Z79.82 CAN RECONDITIONER (CURRENT) USE OF ASPIRIN 09/23/2016 DARY CHATTERJEE MD Ot Z79.899 OTHER CARE HOME (CURRENT) DRUG THERAPY 11/12/2016 DARY CHATTERJEE MD Ot F17.210 NICOTINE DEPENDENCE, CIGARETTES, UNCOMPL 11/12/2016 DARY CHATTERJEE MD Ot S52.501A UNSP FRACTURE OF THE LOWER END OF RIGHT 11/12/2016 DARY CHATTERJEE MD Ot S52.614A NONDISP FX OF RIGHT ULNA STYLOID PROCESS 11/12/2016 DARY CHATTERJEE MD Ot S69.91XA UNSP INJURY OF RIGHT WRIST, HAND AND FIN 11/12/2016 DARY CHATTERJEE MD Ot W00.0XXA FALL ON SAME LEVEL DUE TO ICE AND SNOW, 11/12/2016 DARY CHATTERJEE MD Ot Y92.[address] OF OCCURRENCE OF T 11/12/2016 DARY CHATTERJEE MD Ot Y93.89 ACTIVITY, OTHER SPECIFIED 11/12/2016 DARY CHATTERJEE MD Ot Y99.0 CIVILIAN ACTIVITY DONE FOR INCOME OR PAY 11/12/2016 DARY CHATTERJEE MD Ot Z79.82 CAN RECONDITIONER (CURRENT) USE OF ASPIRIN 11/12/2016 DARY CHATTERJEE MD Ot Z79.899 OTHER CARE HOME (CURRENT) DRUG THERAPY 02/19/2017 WHIT MICHAEL Ot S83.241A OTH TEAR OF MEDIAL MENISCUS, CURRENT INJ 02/19/2017 WHIT MICHAELP Ot S83.281A OTH TEAR OF LAT MENSC, CURRENT INJURY, R 02/19/2017 WHIT MICHAEL Ot X58.XXXA EXPOSURE TO OTHER SPECIFIED FACTORS, INI 02/19/2017 WHIT MICHAELP Ot Y99.8 OTHER EXTERNAL CAUSE STATUS 02/26/2017 WHIT MICHAEL Ot S83.241A OTH TEAR OF MEDIAL MENISCUS, CURRENT INJ 02/26/2017 WHIT MICHAELP Ot S83.281A OTH TEAR OF LAT MENSC, CURRENT INJURY, R 02/26/2017 WHIT MICHAEL Ot X58.XXXA EXPOSURE TO OTHER SPECIFIED FACTORS, INI 02/26/2017 WHIT MICHAEL TAPE LIBRARIAN Ot Y99.8 OTHER EXTERNAL CAUSE STATUS 02/26/2017 WHIT MICHAELP Ot S83.241A OTH TEAR OF MEDIAL MENISCUS, CURRENT INJ 02/26/2017 WHIT MICHAELP Ot S83.281A OTH TEAR OF LAT MENSC, CURRENT INJURY, R 02/26/2017 WHIT MICHAEL Ot X58.XXXA EXPOSURE TO OTHER SPECIFIED FACTORS, INI 02/26/2017 WHIT MICHAELP Ot Y99.8 OTHER EXTERNAL CAUSE STATUS 03/12/2017 WHIT MICHAELP Ot S83.241A OTH TEAR OF MEDIAL MENISCUS, CURRENT INJ 03/12/2017 WHIT MICHAEL Clarissa BRUNOP Ot S83.281A OTH TEAR OF LAT MENSC, CURRENT INJURY, R 03/12/2017 MICHAELWHIT Clarissa IBANEZ Ot X58.XXXA EXPOSURE TO OTHER SPECIFIED FACTORS, INI 03/12/2017 ALEC WHIT Clarissa TAPE LIBRARIAN Ot Y99.8 OTHER EXTERNAL CAUSE STATUS 10/07/2017 WHIT MICHAEL Ot S83.241A OTH TEAR OF MEDIAL MENISCUS, CURRENT INJ 10/07/2017 MICHAELWHIT Clarissa IBANEZ Ot S83.281A OTH TEAR OF LAT MENSC, CURRENT INJURY, R 10/07/2017 WHIT MICHAEL Ot X58.XXXA EXPOSURE TO OTHER SPECIFIED FACTORS, INI 10/07/2017 ALEC WHITMILES IBANEZ Ot Y99.8 OTHER EXTERNAL CAUSE STATUS 09/01/2018 WHIT MICHAEL Ot S83.241A OTH TEAR OF MEDIAL MENISCUS, CURRENT INJ 09/01/2018 ALEC WHITMILES BRUNOP Ot S83.281A OTH TEAR OF LAT MENSC, CURRENT INJURY, R 09/01/2018 WHIT MICHAEL Ot X58.XXXA EXPOSURE TO OTHER SPECIFIED FACTORS, INI 09/01/2018 WHIT MICHAEL Ot Y99.8 OTHER EXTERNAL CAUSE STATUS 09/01/2018 CONSTANCE HERNANDEZ MD (DDU) Ot M54.9 DORSALGIA, UNSPECIFIED 09/01/2018 CONSTANCE HERNANDEZ MD (DDU) Ot Z87.828 PERSONAL HISTORY OF OTH (HEALED) PHYSICA 09/04/2018 WHIT MICHAEL Ot S83.241A OTH TEAR OF MEDIAL MENISCUS, CURRENT INJ 09/04/2018 WHIT MICHAEL Ot S83.281A OTH TEAR OF LAT MENSC, CURRENT INJURY, R 09/04/2018 WHIT MICHAELP Ot X58.XXXA EXPOSURE TO OTHER SPECIFIED FACTORS, INI 09/04/2018 WHIT MICHAELP Ot Y99.8 OTHER EXTERNAL CAUSE STATUS 09/04/2018 CONSTANCE HERNANDEZ MD (DDU) Ot M54.9 DORSALGIA, UNSPECIFIED 09/04/2018 CONSTANCE HERNANDEZ MD (DDU) Ot Z87.828 PERSONAL HISTORY OF OTH (HEALED) PHYSICA 09/09/2018 JACOB TOURE MD Ot J38.3 OTHER DISEASES OF VOCAL CORDS 11/10/2018 WHIT MICHAEL Ot S83.241A OTH TEAR OF MEDIAL MENISCUS, CURRENT INJ 11/10/2018 WHIT MICHAEL Ot S83.281A OTH TEAR OF LAT MENSC, CURRENT INJURY, R 11/10/2018 WHIT MICHAEL Ot X58.XXXA EXPOSURE TO OTHER SPECIFIED FACTORS, INI 11/10/2018 WHIT MICHAEL Ot Y99.8 OTHER EXTERNAL CAUSE STATUS 11/10/2018 CONSTANCE HERNANDEZ MD (DDU) Ot M54.9 DORSALGIA, UNSPECIFIED 11/10/2018 CONSTANCE HERNANDEZ MD (DDU) Ot Z87.828 PERSONAL HISTORY OF OTH (HEALED) PHYSICA 11/10/2018 JACOB TOURE MD Ot J38.3 OTHER DISEASES OF VOCAL CORDS 11/11/2018 KARTIK FERREIRA, ROM Ot Z01.818 ENCOUNTER FOR OTHER PREPROCEDURAL EXAMIN Procedures Code [place] [address] PSYCH PHARM MGMT 10/02/2012 31788 MRI SPINE (LUMBAR) W/O CONTRAST 09/06/2013 25174 ROUTINE VENIPUNCTURE 12/16/2013 77336 URINE DRUG SCREEN (IN-HOUSE ) 12/16/2013 35358 CMP 12/16/2013 11693 LIPID PANEL 12/16/2013 Results Test Result Range Comp. Metabolic Panel (14) - 11/12/16 13:48 Glucose, Serum 85 mg/dL 65-99 BUN 17 mg/dL 6-24 Creatinine, Serum 0.81 mg/dL 0.57-1.00 eGFR If NonAfricn Am 81 mL/min/1.73 >59 eGFR If Africn Am 93 mL/min/1.73 >59 BUN/Creatinine Ratio 21 9-23 Sodium, Serum 138 mmol/L 134-144 Potassium, Serum 4.2 mmol/L 3.5-5.2 Chloride, Serum 93 mmol/L 96-106 Carbon Dioxide, Total 22 mmol/L 18-29 Calcium, Serum 10.3 mg/dL 8.7-10.2 Protein, Total, Serum 8.1 g/dL 6.0-8.5 Albumin, Serum 5.0 g/dL 3.5-5.5 Globulin, Total 3.1 g/dL 1.5-4.5 A/G Ratio 1.6 1.1-2.5 Bilirubin, Total 0.3 mg/dL 0.0-1.2 Alkaline Phosphatase, S 94 IU/L 39-117 AST (SGOT) 15 IU/L 0-40 ALT (SGPT) 10 IU/L 0-32 Lipid Panel - 11/12/16 13:48 Cholesterol, Total 247 mg/dL 100-199 Triglycerides 169 mg/dL 0-149 HDL Cholesterol 40 mg/dL >39 VLDL Cholesterol Andrea 34 mg/dL 5-40 LDL Cholesterol Calc 173 mg/dL 0-99 CMP - 07/29/17 11:00 Glucose, Serum 82 mg/dL 65-99 BUN 13 mg/dL 6-24 Creatinine, Serum 0.59 mg/dL 0.57-1.00 eGFR If NonAfricn Am 101 mL/min/1.73 >59 eGFR If Africn Am 117 mL/min/1.73 >59 BUN/Creatinine Ratio 22 9-23 Sodium, Serum 140 mmol/L 134-144 Potassium, Serum 4.3 mmol/L 3.5-5.2 Chloride, Serum 101 mmol/L 96-106 Carbon Dioxide, Total 26 mmol/L 18-29 Calcium, Serum 9.3 mg/dL 8.7-10.2 Protein, Total, Serum 6.5 g/dL 6.0-8.5 Albumin, Serum 4.0 g/dL 3.5-5.5 Globulin, Total 2.5 g/dL 1.5-4.5 A/G Ratio 1.6 1.2-2.2 Bilirubin, Total 0.2 mg/dL 0.0-1.2 Alkaline Phosphatase, S 59 IU/L 39-117 AST (SGOT) 11 IU/L 0-40 ALT (SGPT) 5 IU/L 0-32 Comp. Metabolic Panel (14) - 07/29/17 11:00 Glucose, Serum 82 mg/dL 65-99 BUN 13 mg/dL 6-24 Creatinine, Serum 0.59 mg/dL 0.57-1.00 eGFR If NonAfricn Am 101 mL/min/1.73 >59 eGFR If Africn Am 117 mL/min/1.73 >59 BUN/Creatinine Ratio 22 9-23 Sodium, Serum 140 mmol/L 134-144 Potassium, Serum 4.3 mmol/L 3.5-5.2 Chloride, Serum 101 mmol/L 96-106 Carbon Dioxide, Total 26 mmol/L 18-29 Calcium, Serum 9.3 mg/dL 8.7-10.2 Protein, Total, Serum 6.5 g/dL 6.0-8.5 Albumin, Serum 4.0 g/dL 3.5-5.5 Globulin, Total 2.5 g/dL 1.5-4.5 A/G Ratio 1.6 1.2-2.2 Bilirubin, Total 0.2 mg/dL 0.0-1.2 Alkaline Phosphatase, S 59 IU/L 39-117 AST (SGOT) 11 IU/L 0-40 ALT (SGPT) 5 IU/L 0-32 Lipid Panel - 07/29/17 11:00 Cholesterol, Total 156 mg/dL 100-199 Triglycerides 70 mg/dL 0-149 HDL Cholesterol 45 mg/dL >39 VLDL Cholesterol Andrea 14 mg/dL 5-40 LDL Cholesterol Calc 97 mg/dL 0-99 Encounters ACCT No. Visit Date/Time Discharge Status Pt. Type Provider Facility Loc./Unit Complaint [id number] 09/26/2014 13:42:00 09/26/2014 23:59:59 CLS Outpatient MARIMAR JONES MD [id number] 05/30/2014 13:40:00 05/30/2014 23:59:59 CLS Outpatient IJEOMA HARRINGTON JR [id number] 05/30/2014 13:40:00 05/30/2014 23:59:59 CLS Outpatient IJEOMA HARRINGTON JR [id number] 04/25/2014 15:13:00 04/25/2014 23:59:59 CLS Outpatient MARIMAR JONES MD [id number] 02/28/2014 14:15:00 02/28/2014 23:59:59 CLS Outpatient IJEOMA HARRINGTON JR [id number] 12/16/2013 15:58:00 12/16/2013 23:59:59 [place] [id number] 12/16/2013 00:00:00 12/16/2013 23:59:59 CLS Outpatient FALLON MARTINEZ DO [id number] 11/19/2013 13:56:00 11/19/2013 23:59:59 CLS Outpatient MARIMAR JONES MD [id number] 08/31/2013 16:20:00 08/31/2013 23:59:59 CLS Outpatient MARIMAR JONES MD [id number] 08/19/2013 17:24:00 08/19/2013 23:59:59 CLS Outpatient TONYA SORENSEN APRN [id number] 07/15/2013 11:11:00 07/15/2013 23:59:59 CLS Outpatient MARIMAR JONES MD [id number] 01/28/2013 11:08:00 01/28/2013 23:59:59 CLS Outpatient [id number] 10/02/2012 12:54:00 10/02/2012 23:59:59 [place] [id number] 08/03/2012 13:30:00 08/03/2012 23:59:59 [place] [id number] 11/09/2018 13:20:00 11/09/2018 23:59:59 CLS Outpatient MARIMAR JONES MD [facility] [id number] 07/29/2017 11:00:00 Document Registration [id number] 07/30/2017 08:41:00 Document Registration [id number] 11/13/2016 10:05:00 Document Registration [id number] 11/11/2018 05:41:00 11/11/2018 13:47:00 DIS Outpatient ROM VERDUGO MD [facility] PREOP EGD [id number] 09/07/2018 12:50:00 09/07/2018 23:59:59 CLS Outpatient TEJAL FERREIRA, JACOB Crabtree [facility] RAD MASS BELOW LT VOCAL CORD [id number] 10/07/2017 08:48:00 10/07/2017 23:59:59 CLS Outpatient DAVID FERREIRA, CONSTANCE Blair (DDU) [facility] RAD DDU [id number] 02/18/2017 17:29:00 02/18/2017 23:59:59 CLS Outpatient WHIT MICHAEL [facility] RAD [id number] 09/21/2016 07:20:00 09/21/2016 08:30:00 DIS Emergency SHENA MD, DARY Nunez [facility] ER FALL/R WRIST INJ [id number] 05/21/2016 12:59:00 05/21/2016 17:40:00 DIS Outpatient KAM FERREIRA FACC, YUMIKO SCOTT CCDS [facility] CATH CHEST PAIN [id number] 12/08/2013 14:13:00 12/08/2013 23:59:59 CLS Outpatient [id number] 09/06/2013 10:25:00 09/06/2013 23:59:59 CLS Outpatient [id number] 11/13/2018 15:15:00 PEN Preadmit KARTIK FERREIRA, ROM [facility] ENDO THROAT CANCER [id number] 11/11/2018 14:30:00 ACT Outpatient GUEVARA FERREIRA, TY Hernandez [facility] ONC
--- NOTE | 2018-11-13 12:17 | Conscious Sedation/ASA ---
Conscious Sedation Pre-Proced Time 12:00 ASA Score 3 For ASA 3 and 4: Consider anesthesia and medical clearance. Also, for patients with a history of failed moderate sedation consider anesthesia. Airway Lungs Heart ASA score ASA 1: a normal healthy patient ASA 2: a patient with a mild systemic disease (mid diabetes, controlled hypertension, obesity ASA 3: a patient with a severe systemic disease that limits activity (angina , COPD, prior Myocardial infarction) ASA 4: a patient with an incapacitating disease that is a constant threat to life (CHF, renal failure) ASA 5: a moribund patient not expected to survive 24 hrs. (ruptured aneurysm) ASA 6: a declared brain patient whose organs are being harvested. For emergent operations, add the letter E after the classification Mallampati Classification Grade 2 Sedation Plan Analgesia, Amnesia, Plan communicated to team members, Discussed options with patient/fam, Discussed risks with patient/fam The patient is an appropriate candidate to undergo the planned procedure, sedation, and anesthesia. The patient immediately re-assessed prior to indication. ROM VERDUGO MD Nov 13, 2018 12:17
--- NOTE | 2018-11-13 12:18 | Progress Note-Pre Operative ---
Pre-Operative Progress Note H&P Reviewed The H&P was reviewed, patient examined and no changes noted. Date Seen by Provider: Nov 13, 2018 Time Seen by Provider: 12:00 Date H&P Reviewed: Nov 13, 2018 Time H&P Reviewed: 12:00 Pre-Operative Diagnosis: larygeal ca with dysphagia ROM VERDUGO MD Nov 13, 2018 12:17
--- NOTE | 2018-11-13 12:21 | Discharge Inst-Surgical ---
D/C Lap Instructions-KARTIK Follow Up PRN Activity as tolerated High Fiber Diet 25g or more per day Avoid Alcohol, Caffeine, Spicy [place] and Acid foods. Drink 64 fluid oz or more of fluids per day. Symptoms to Report: Fever over 101 degree F, Nausea/Vomiting If any problems/questions: Contact your physician or go to Emergency Room ROM VERDUGO MD Nov 13, 2018 12:21
[2018-11-13] MEDS ORDERED: ACETAMINOPHEN 325 MG TABLET PO PRN (12:30)
[2018-11-13] MEDS ORDERED: HYDROcodone/APAP 5 MG/325 MG (LORTAB) TAB PO PRN (12:30)
[2018-11-13] MEDS ORDERED: morphine INJ 10 MG/ML 1ML (SYR OR VIAL) IV PRN (12:30)
[2018-11-13] MEDS ORDERED: ONDANSETRON 4 MG/2 ML (SDV) Z0FRAN IV PRN (12:30)
[2018-11-13] MEDS ORDERED: MIDAZOLAM 2 MG/2 ML (VERSED) VIAL IVP ONE (12:45)
[2018-11-13] MEDS ORDERED: fentaNYL INJECTION 100 MCG/2 ML AMP IVP ONE ×2 (12:45→15:45)
[2018-11-13] MEDS ORDERED: HURRICAINE EXT TUBE (BENZOCAINE) XX ONE (12:45)
[2018-11-13] MEDS ORDERED: NS IV 500 ML 500 ML IV PRN (12:45)
[2018-11-13] MEDS ORDERED: NS IV 500 ML 500 ML ONE (12:49)
[2018-11-13] MEDS ORDERED: LIDOCAINE PF 2% 5 ML (XYLOCAINE) VIAL ONE (13:36)
[2018-11-13 13:44] VITALS: BP 119/73
[2018-11-13] MEDS ORDERED: proPOfol 200 MG/20 ML (DIPRIVAN) VIAL IV ONE (14:13)
[2018-11-13] MEDS ORDERED: MIDAZOLAM 5 MG/5 ML (VERSED) VIAL ONE (14:13)
[2018-11-13] MEDS ORDERED: LIDOCAINE JELLY 2% 6 ML SYRINGE ONE ×2 (14:30→14:41)
--- NOTE | 2018-11-13 15:27 | Progress Note-Post Operative ---
Post-Operative Progess Note Surgeon (s)/Engineering Document Control Clerk (s) Surgeon ROM VERDUGO MD Engineering Document Control Clerk: none Pre-Operative Diagnosis larygeal ca with dysphagia Post-Operative Diagnosis same Procedure & Operative Findings Date of Procedure 11/13/18 Procedure Performed/Findings EGD with bx and PEG tube placement. Anesthesia Type general Estimated Blood Loss Estimated blood loss (mL): minimal Specimens/Packing Specimens Removed antrum, GE jxn ROM VERDUGO MD Nov 13, 2018 15:27
[2018-11-13] MEDS ORDERED: MEPERIDINE (DEMEROL) INJ 50 MG/ML IVP ONE ×2 (15:30→15:45)
[2018-11-13] MEDS ORDERED: ONDANSETRON 4 MG/2 ML (SDV) Z0FRAN IVP PRN ×2 (15:30→15:45)
[2018-11-13] MEDS ORDERED: morphine INJ 10 MG/ML 1ML (SYR OR VIAL) IVP ONE ×2 (15:30→15:45)
[2018-11-13 16:15] VITALS: BP 117/73
[2018-11-13 16:45] VITALS: BP 114/75
[2018-11-13 17:15] VITALS: BP 99/71
--- NOTE | 2018-11-14 00:34 | OPERATIVE REPORT ---
DATE OF SERVICE: 11/13/2018 ATTENDING PRIMARY CARE PHYSICIAN: Dr. Ohara. PREOPERATIVE DIAGNOSIS: Laryngeal cancer status post total laryngectomy as well as dysphagia and aspiration risk. POSTOPERATIVE DIAGNOSIS: Laryngeal cancer status post total laryngectomy as well as dysphagia and aspiration risk. PROCEDURE: EGD with biopsies and placement of percutaneous endoscopic gastrostomy tube. SURGEON: Rom Verdugo MD ANESTHESIA: General through Shiley tracheostomy tube. ESTIMATED BLOOD LOSS: Minimal. FINDINGS: Reflux esophagitis stage II. No hiatal hernia. Moderate gastritis. Pylorus and duodenum appeared normal. No distal obstructions. DISPOSITION: The patient tolerated the procedure well. INDICATIONS: The patient is a 58-year-old female who was discovered to have a left vocal cord lesion. 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 She then underwent a total laryngectomy as well as placement of a nasogastric tube at that time. She has been doing well and has an opening trachea with a breathing button. She has been proceeding with alimentation through the nasogastric tube. She was referred over to us for placement of a percutaneous gastrostomy tube and she will then undergo radiation therapy and the removal of the existing nasogastric tube. DESCRIPTION OF PROCEDURE: The patient was brought to the endoscopy suite, laid in the supine position. After adequate IV pain and sedating medications and general anesthesia through a Shiley tracheostomy tube that was placed by anesthesia, we then placed the mouthpiece. Endoscope was placed in the mouth, visualizing the pharynx and hypopharyngeal region. Vocal cords, epiglottis and vallecula identified and appeared to be normal. Endoscope was then gently intubated at the esophageal opening and esophagus insufflated. Endoscope was then advanced to the first, second and third portion of the esophagus. At the level of the GE junction, a reflux esophagitis stage II identified. There were no ulcers or strictures identified in this region. The endoscope was then advanced in the stomach and endoscope retroflexed visualizing no significant hiatal hernia. The nasogastric tube was also identified and within the stomach. There was a moderate severity gastritis more towards the stomach and antrum. No formal ulcerations, polyps or any neoplasms. A biopsy was taken of the stomach and antrum with forceps to rule out H. pylori with visualization of good hemostasis. The endoscope was then advanced to the pylorus and the first and second portion of the duodenum, which appeared normal with no distal obstructions. We then proceeded with the percutaneous endoscopic gastrostomy tube placement. The abdominal wall was prepped and draped in standard surgical fashion. A 1% lidocaine was then used to anesthetize the skin, subcutaneous tissue, fascia, muscle layers as well as the stomach under direct visualization using the endoscope. A small vertical skin incision was made using 11 blade and a sheath and trocar were then introduced under direct visualization into the anterior wall of the stomach. The guidewire was then placed under direct visualization and looped through the scope and pulled through the mouth. The gastrostomy tube was then placed on to the loop and pulled through without any resistance under direct visualization until the rubber bolster at the end of the gastrostomy tube was firmly abutting the anterior wall of the stomach. A good hemostasis was observed. The outside rubber bolster was then placed after Iodine was placed followed by drain sponges. The gastrostomy tube was then cut down to size and the rubber stopper placed on the end. The endoscope was then slowly withdrawn while taking a second look and suctioning of residual air with no additional findings. The patient tolerated the procedure well. The gastrostomy tube may be accessed and used at any time. She is instructed to keep the area clean and dry and to place gauze, drain sponges on a b.i.d. basis until no drainage. Job ID: [id number] DocumentID: [id number] Dictated Date: 11/13/2018 15:20:42 Felt Dyeing Machine Tender Date: 11/14/2018 00:33:49 Dictated By: ROM VERDUGO MD [facility] CENTERClarissa
== END 2018-11-13 17:15 | disposition home or self-care (01) ==
LOC: ENDO 11:24
PROVIDERS: ATTEND Surgery
DX: K21.0 Gastro-esophageal reflux disease with esophagitis (principal); K29.70 Gastritis, unspecified, without bleeding; C32.9 Malignant neoplasm of larynx, unspecified; Z93.0 Tracheostomy status; Z87.891 Personal history of nicotine dependence; Z79.899 Other long term (current) drug therapy

== ENCOUNTER 2019-01-13 13:34 | Outpatient (RCR) | payer MEDICAID ==
[~2019-01-13 13:34] MED LIST changes: +morphine INJ 10 MG/ML 1ML (SYR OR VIAL) ONE
== END 2019-02-09 | disposition home or self-care (01) ==
LOC: ONC 13:34
PROVIDERS: ATTEND Radiology Radiation Oncology
DX: Z51.0 Encounter for antineoplastic radiation therapy (principal); C32.9 Malignant neoplasm of larynx, unspecified; J43.9 Emphysema, unspecified; E78.00 Pure hypercholesterolemia, unspecified; I10 Essential (primary) hypertension; M19.91 Primary osteoarthritis, unspecified site; E89.0 Postprocedural hypothyroidism; F32.9 Major depressive disorder, single episode, unspecified; Z93.0 Tracheostomy status; Z93.1 Gastrostomy status; Z79.899 Other long term (current) drug therapy; Z87.891 Personal history of nicotine dependence
CPT/HCPCS: 77300; 77301; 77332; 77334; 77336; 77338; 77386; 99204

== ENCOUNTER 2019-05-19 13:16 | Outpatient (RCR) | payer MEDICAID ==
[~2019-05-19 13:16] MED LIST changes: -morphine INJ 10 MG/ML 1ML (SYR OR VIAL) ONE
[2019-07-18] MEDS ORDERED: AMIT10TA6 PO (18:05)
[2019-07-18] MEDS ORDERED: PREG25CA PO (18:05)
== END 2019-08-17 | disposition home or self-care (01) ==
LOC: ONC 13:16
PROVIDERS: ATTEND Radiology Radiation Oncology
DX: C32.9 Malignant neoplasm of larynx, unspecified (principal); J43.9 Emphysema, unspecified; E78.00 Pure hypercholesterolemia, unspecified; I10 Essential (primary) hypertension; M19.91 Primary osteoarthritis, unspecified site; E89.0 Postprocedural hypothyroidism; F32.9 Major depressive disorder, single episode, unspecified; Z79.899 Other long term (current) drug therapy; Z87.891 Personal history of nicotine dependence
CPT/HCPCS: 99213

== ENCOUNTER → 2019-06-08 | Outpatient (CLI) | payer MEDICAID ==
--- NOTE | 2019-06-09 10:48 | Diagnostic Imaging Report ---
INDICATION: Routine screening. COMPARISON: 02/13/2009 and 11/13/2007. TECHNIQUE: 2D and 3D bilateral screening mammography was performed with CAD. FINDINGS: Scattered fibroglandular densities are identified bilaterally. The parenchymal pattern is stable. A tiny circumscribed nodule in the upper right breast is stable and consistent with a benign etiology. No new mass or malignant appearing microcalcifications are seen. The axillae are unremarkable. IMPRESSION: No mammographic features suspicious for malignancy are identified. ACR BI-RADS Category 2: Benign findings. Result letter will be mailed to the patient. Note: At least 10% of breast cancer is not imaged by mammography. Dictated by: Dictated on workstation # [id number]
== END ==
LOC: RAD 13:31
PROVIDERS: ATTEND Obstetrics & Gynecology
DX: Z12.31 Encounter for screening mammogram for malignant neoplasm of breast (principal)
CPT/HCPCS: 77067

== ENCOUNTER 2019-07-18 16:21 | Emergency (ER) | payer MEDICAID ==
[~2019-07-18] VITALS: Ht 170 cm; Wt 85.9 kg
[2019-07-18] MEDS ORDERED: ASPIRIN 81 MG CHEW (CHILDREN'S ASA) PO ONE (16:45)
[2019-07-18 16:53] LABS: BASOPHILS % (AUTO) 1 % (0-10); EOSINOPHILS % (AUTO) 0 % (0-10); HEMATOCRIT 42 % (35-52); HEMOGLOBIN 14.3 G/DL (11.5-16.0); LYMPHOCYTES % (AUTO) 25 % (12-44); MEAN CORPUSCULAR HEMOGLOBIN 30 PG (25-34); MEAN CORPUSCULAR HGB CONC 34 G/DL (32-36); MEAN CORPUSCULAR VOLUME 89 FL (80-99); MEAN PLATELET VOLUME 9.6 FL (7.4-10.4); MONOCYTES # (AUTO) 0.6 X 10^3 (0.0-1.0); MONOCYTES % (AUTO) 14 % (0-12); NEUTROPHILS # (AUTO) 2.5 X 10^3 (1.8-7.8); NEUTROPHILS % (AUTO) 61 % (42-75); PLATELET COUNT 310 10^3/uL (130-400); RED CELL DISTRIBUTION WIDTH 12.5 % (10.0-14.5); WHITE BLOOD COUNT 4.2 10^3/uL (4.3-11.0)
[2019-07-18 17:04] LABS: ALANINE AMINOTRANSFERASE 25 U/L (0-55); ALBUMIN 4.4 GM/DL (3.2-4.5); ALKALINE PHOSPHATASE 107 U/L (40-136); BILIRUBIN,TOTAL 0.4 MG/DL (0.1-1.0); BUN/CREATININE RATIO 18; CARBON DIOXIDE 24 MMOL/L (21-32); CHLORIDE 104 MMOL/L (98-107); CREATININE SERUM 0.91 MG/DL (0.60-1.30); GFR ESTIMATED > 60; GLUCOSE 95 MG/DL (70-105); MAGNESIUM 2.5 MG/DL (1.6-2.4); POTASSIUM 3.9 MMOL/L (3.6-5.0); PROTHROMBIN TIME PATIENT 13.2 SEC (12.2-14.7); SODIUM 139 MMOL/L (135-145); TOTAL PROTEIN 8.1 GM/DL (6.4-8.2)
--- NOTE | 2019-07-18 17:12 | Diagnostic Imaging Report ---
INDICATION: Chest pain. EXAMINATION: PA and lateral views of the chest were obtained. COMPARISON: Study of 05/21/2016. FINDINGS: Heart size and pulmonary vascularity are within normal limits. There is mild linear atelectasis and/or scarring in the left lung base. There is no consolidation or significant pleural fluid. Numerous surgical clips are now seen in the neck. IMPRESSION: Slight left basilar atelectasis or scarring without other evidence of acute abnormality or adverse change. Dictated by: Dictated on workstation # [id number]
[2019-07-18] MEDS ORDERED: ONDANSETRON 4 MG/2 ML (SDV) Z0FRAN IVP ONE (17:15)
[2019-07-18] MEDS ORDERED: IOHEXOL 350 MG/ML 100 ML (OMNIPAQUE 350) VIAL IV ONE (17:30)
[2019-07-18] MEDS ORDERED: HOLD METFORMIN - RECEIVED CONTRAST 20 ML VIAL IV SCH (17:30)
[2019-07-18] MEDS ORDERED: NS 100 ML (IVPB) BAG IV ONE (17:30)
--- NOTE | 2019-07-18 17:50 | ED Chest Pain ---
General Chief Complaint: Chest Pain Stated Complaint: CP Nursing Triage Note: Patient ambulatory to ER with complaint of chest pain to upper chest under bilateral breasts that began approximately 45 minutes ago. 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 She describes the pain as sharp pain that does not radiate anywhere. The pain does not change with taking a deep breath or movement. Patient has a history of throat cancer and has a trach which causes difficulty with understanding the patient. Patient is given paper and pen to write down answers. Nursing Sepsis Screen: No Definite Risk Source: patient Exam Limitations: no limitations History of Present Illness Date Seen by Provider: Jul 18, 2019 Time Seen by Provider: 16:25 Initial Comments This 59-year-old woman presents to the emergency room with complaints of chest pain across the lower chest that was sharp in nature. It started about 45 minutes prior to arrival. She describes the intensity as 8/10. She took 2 nitroglycerin at home which were prescribed by Dr. Jones. Pain is now rated as 3 or 4/10. She states the pain was a little bit worse with inspiration when she was at home. Breathing is no longer causes any pain. Review of her chart notes a cardiac catheter in 2016 demonstrating mild nonobstructive disease. Patient had a laryngectomy and thyroidectomy last year for treatment of cancer. She has a tracheostomy. She felt lightheaded after taking nitroglycerin. Allergies and Home Medications Allergies Coded Allergies: Iodinated Contrast Media (Verified Adverse Reaction, Severe, Vomiting, 07/18/19) Violent vomiting with oral contrast aspirin (Verified Adverse Reaction, Mild, NAUSEA, 07/18/19) Home Medications Amitriptyline HCl 10 Mg Tablet, 10 MG PO DAILY, (Reported) Calcium Citrate 200 Mg Tablet, 200 MG PO DAILY, (Reported) Gabapentin 250 Mg/5 Ml Solution, 250 MG PO TID, (Reported) Levothyroxine Sodium 125 Mcg Tablet, 125 MCG PO DAILY, (Reported) Pravastatin Sodium 40 Mg Tablet, 40 MG PO DAILY, (Reported) Pregabalin 25 Mg Capsule, 25 MG PO DAILY, (Reported) Quetiapine Fumarate 200 Mg Tablet, 200 MG PO HS, (Reported) Quetiapine Fumarate 300 Mg Tablet, PO HS, (Reported) Sertraline HCl 50 Mg Tablet, 50 MG PO DAILY, (Reported) Tramadol HCl 50 Mg Tablet, 50-100 MG PO Q4H PRN for PAIN-MILD TO MODERATE, (Reported) Patient Home Medication List Home Medication List Reviewed: Yes Review of Systems Review of Systems Constitutional: no symptoms reported EENTM: No Symptoms Reported Respiratory: No Symptoms Reported Cardiovascular: See HPI Gastrointestinal: No Symptoms Reported Genitourinary: No Symptoms Reported Musculoskeletal: no symptoms reported Skin: no symptoms reported Psychiatric/Neurological: No Symptoms Reported Endocrine: No Symptoms Reported Hematologic/Lymphatic: No Symptoms Reported Past Jbxjzty-Nkawfk-Cwoora Hx Past Med/Social Hx: Reviewed and Corrections made Patient Social History Alcohol Use: Occasionally Uses Number of Drinks Today: GG Alcohol Beverage of Choice: Whiskey Recreational Drug Use: Yes (Marijuana to control pain) Smoking Status: Former Smoker Type Used: Cigarettes Former Smoker, Quit: Oct 05, 2018 2nd Hand Smoke Exposure: No Recent Foreign Travel: No Contact w/Someone Who Travel: No Recent Infectious Disease Expo: No Recent Hopitalizations: No Immunizations Up To Date Tetanus Booster (TDap): Unknown PED Vaccines UTD: Yes Seasonal Allergies Seasonal Allergies: No Past Medical History Surgeries: Yes (vocal cords/thyroid removed due to throat cancer, tracheostomy, heart cath) Appendectomy, Hysterectomy, Orthopedic, Thyroidectomy Respiratory: Yes (tracheostomy) Cardiac: Yes Heart Attack Neurological: No 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 Sexually Transmitted Disease: No HIV/AIDS: No Genitourinary: No Gastrointestinal: Yes Chronic Diarrhea Musculoskeletal: Yes Fibromyalgia Endocrine: Yes Hypothyroidsim HEENT: Yes (throat cancer) Cataract Loss of Vision: Bilateral Cancer: Yes (throat ) Uterine Did You Recieve Any Treatments: Yes What Type of Treatment Did You: Surgical Intervention Psychosocial: No Anxiety, Depression Integumentary: No Blood Disorders: No Adverse Reaction/Blood Tranf: No (N/A) Family Medical History Diabetes mellitus 19 FATHER FH: COPD (chronic obstructive pulmonary disease) 19 MOTHER FH: cancer 19 MOTHER Prostate cancer G8 BROTHER Physical Exam Vital Signs Vital Signs - First Documented 07/18/19 16:22 Temp 36.4 Pulse 87 Resp 16 B/P (MAP) 122/89 (100) Pulse Ox 99 O2 Delivery Room Air Capillary Refill : Less Than 3 Seconds Height, Weight, BMI Height: 5'7.00" Weight: 168lbs. 0.0oz. 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 Norm as Tested Skin: Normal Color, Warm/Dry Progress/Results/Core Measures Results/Orders Lab Results Laboratory Tests Test 07/18/19 16:27 07/18/19 18:20 Range/Units White Blood Count 4.2 L 4.3-11.0 10^3/uL Red Blood Count 4.71 4.35-5.85 10^6/uL Hemoglobin 14.3 11.5-16.0 G/DL Hematocrit 42 35-52 % Mean Corpuscular Volume 89 80-99 FL Mean Corpuscular Hemoglobin 30 25-34 PG Mean Corpuscular Hemoglobin Concent 34 32-36 G/DL Red Cell Distribution Width 12.5 10.0-14.5 % Platelet Count 310 130-400 10^3/uL Mean Platelet Volume 9.6 7.4-10.4 FL Neutrophils (%) (Auto) 61 42-75 % Lymphocytes (%) (Auto) 25 12-44 % Monocytes (%) (Auto) 14 H 0-12 % Eosinophils (%) (Auto) 0 0-10 % Basophils (%) (Auto) 1 0-10 % Neutrophils # (Auto) 2.5 1.8-7.8 X 10^3 Lymphocytes # (Auto) 1.0 1.0-4.0 X 10^3 Monocytes # (Auto) 0.6 0.0-1.0 X 10^3 Eosinophils # (Auto) 0.0 0.0-0.3 10^3/uL Basophils # (Auto) 0.0 0.0-0.1 10^3/uL Prothrombin Time 13.2 12.2-14.7 SEC INR Comment 1.0 0.8-1.4 Activated Partial Thromboplast Time 29 24-35 SEC D-Dimer 0.65 H 0.00-0.49 UG/ML Sodium Level 139 135-145 MMOL/L Potassium Level 3.9 3.6-5.0 MMOL/L Chloride Level 104 98-107 MMOL/L Carbon Dioxide Level 24 21-32 MMOL/L Anion Gap 11 5-14 MMOL/L Blood Urea Nitrogen 16 7-18 MG/DL Creatinine 0.91 0.60-1.30 MG/DL Estimat Glomerular Filtration Rate > 60 BUN/Creatinine Ratio 18 Glucose Level 95 70-105 MG/DL Calcium Level 9.0 8.5-10.1 MG/DL Corrected Calcium 8.7 8.5-10.1 MG/DL Magnesium Level 2.5 H 1.6-2.4 MG/DL Total Bilirubin 0.4 0.1-1.0 MG/DL Aspartate Amino Transf (AST/SGOT) 29 5-34 U/L Alanine Aminotransferase (ALT/SGPT) 25 0-55 U/L Alkaline Phosphatase 107 40-136 U/L Myoglobin 41.8 10.0-92.0 NG/ML Troponin I < 0.028 < 0.028 <0.028 NG/ML Total Protein 8.1 6.4-8.2 GM/DL Albumin 4.4 3.2-4.5 GM/DL My Orders Orders - ERNESTO FRAUSTO MD Cbc With Automated Diff (07/18/19 16:42) Magnesium (07/18/19 16:42) Ekg Tracing (07/18/19 16:42) Cardiac Profile 1 (07/18/19 16:42) Comprehensive Metabolic Panel (07/18/19 16:42) Myoglobin Serum (07/18/19 16:42) Protime With Inr (07/18/19 16:42) Partial Thromboplastin Time (07/18/19 16:42) O2 (07/18/19 16:42) Monitor-Rhythm Ecg Trace Only (07/18/19 16:42) Lipid Panel (07/19/19 06:00) Ed Iv/Invasive Line Start (07/18/19 16:42) Aspirin Chewable Tablet (Baby Aspirin Ch (07/18/19 16:45) Chest Pa/Lat (2 View) (07/18/19 16:42) Fibrin Degradation Products (07/18/19 16:42) Ondansetron Injection (Zofran Injectio (07/18/19 17:15) Ct Angio Chest W (07/18/19 17:15) Troponin I (07/18/19 18:30) Iohexol Injection (Omnipaque 350 Mg/Ml 1 (07/18/19 17:30) Received Contrast (Hold Metformin- Contr (07/18/19 17:30) Ns (Ivpb) (Sodium Chloride 0.9% Ivpb Bag (07/18/19 17:30) Medications Given in ED Current Medications Medications Dose Ordered Sig/Princess Route Start Time Stop Time Status Last Admin Dose Admin Aspirin 324 mg ONCE ONCE PO 07/18/19 16:45 07/18/19 16:46 DC 07/18/19 17:03 324 MG Iohexol 100 ml ONCE ONCE IV 07/18/19 17:30 07/18/19 17:31 DC 07/18/19 17:46 100 ML Ondansetron HCl 8 mg ONCE ONCE IVP 07/18/19 17:15 07/18/19 17:16 DC 07/18/19 17:19 8 MG Sodium Chloride 100 ml ONCE ONCE IV 07/18/19 17:30 07/18/19 17:31 DC 07/18/19 17:46 80 ML Vital Signs/I&O 07/18/19 07/18/19 16:22 16:46 Temp 36.4 Pulse 87 Resp 16 B/P (MAP) 122/89 (100) Pulse Ox 99 O2 Delivery Room Air Room Air Blood Pressure Mean: 100 Progress Progress Note #1: Time: 18:11 Progress Note Initial cardiac workup was unremarkable. Chest pain had quickly dissipated to 2 out of 10. No further nitroglycerin was given. Aspirin was administered. D- dimer was mildly elevated. CT angiogram was obtained and was negative for acute abnormalities. Case was discussed with Dr. Tim who agrees with outpatient follow-up if a 2 hour troponin is negative. Progress Note #2: Time: 18:41 Progress Note Patient is pain free at this time. Repeat troponin is pending. Progress Note #3: Time: 18:59 Progress Note Repeat troponin was negative. Initial ECG Impression Date: Jul 18, 2019 Initial ECG Impression Time: 16:25 Initial ECG Rate: 86 Initial ECG Rhythm: Normal Sinus Initial ECG Intervals: Normal Initial ECG Impression: Normal Comment Normal sinus rhythm with no ST elevation or depression. No abnormal intervals or axis deviation. Diagnostic Imaging Diagonstic Imaging: Xray Plain Films/CT/US/NM/MRI: chest Comments Two-view chest x-ray viewed by me and report reviewed. See report below: NAME: JACKI LAROSE [facility] REC#: [id number] PT STATUS: REG ER : 1960 PHYSICIAN: ERNESTO FRAUSTO MD ADMIT DATE: 07/18/19/ER Signed Date of Exam:07/18/19 CHEST PA/LAT (2 VIEW) INDICATION: Chest pain. EXAMINATION: PA and lateral views of the chest were obtained. COMPARISON: Study of 05/21/2016. FINDINGS: Heart size and pulmonary vascularity are within normal limits. There is mild linear atelectasis and/or scarring in the left lung base. There is no consolidation or significant pleural fluid. Numerous surgical clips are now seen in the neck. IMPRESSION: Slight left basilar atelectasis or scarring without other evidence of acute abnormality or adverse change. Dictated by: Dictated on workstation # [id number] Dict: 07/18/191704 Trans: 07/18/191713 [facility] [id number] Interpreted by: CHRISTINE ROY MD Electronically signed by: CHRISTINE ROY MD 07/18/194 Diagonstic Imaging: CT Plain Films/CT/US/NM/MRI: chest Comments CT angiogram chest viewed by me and report reviewed. See report below: NAME: JACKI LAROSE [facility] REC#: [id number] PT STATUS: REG ER : 1960 PHYSICIAN: ERNESTO FRAUSTO MD ADMIT DATE: 07/18/19/ER Draft Date of Exam:07/18/19 CT ANGIO CHEST W PROCEDURE: CT angiography of the chest with contrast. TECHNIQUE: Multiple contiguous axial images were obtained through the chest after uneventful bolus administration of intravenous contrast. 3D reconstructed CTA MIP acquisitions were also performed. Auto Exposure Controls were utilized during the CT exam to meet ALARA standards for radiation dose reduction. INDICATION: Chest pain. COMPARISON: Comparison is made to study of 06/29/2011. FINDINGS: There is good opacification of pulmonary arteries without intraluminal filling defect. Thoracic aorta reveals no abnormality other than mild atherosclerotic disease. Note is made of two-vessel aortic arch branching pattern. The lungs are clear. There is no significant pleural or pericardial fluid. IMPRESSION: No CTA evidence of pulmonary embolism or other acute abnormality in the thorax. There is cholelithiasis. Dictated on workstation # [id number] Dict: 07/18/19 1745 Trans: 07/18/19 175 [facility] [id number] Interpreted by: CHRISTINE ROY MD Departure Impression Primary Impression: Chest pain Qualified Codes: R07.9 - Chest pain, unspecified Disposition: HOME, SELF-CARE Condition: Improved Departure-Patient Inst. Decision time for Depature: 18:08 Referrals: YUMIKO VERNON MD [facility] MARIMAR JONES MD (PCP/Family) Primary Care Physician Patient Instructions: Chest Pain (DC) Add. Discharge Instructions: Take aspirin 81 mg daily. Please follow-up with your primary care provider and Dr. Vernon as soon as possible. Return to the emergency room if you have escalating pain again or other worsening symptoms. All discharge instructions reviewed with patient and/or family. Voiced understanding. Copy Copies To 1: YUMIKO VERNON MD [facility] Copies To 2: MARIMAR JONES MD, JOSHUA T MD Jul 18, 2019 17:50
--- NOTE | 2019-07-18 17:57 | Diagnostic Imaging Report ---
PROCEDURE: CT angiography of the chest with contrast. TECHNIQUE: Multiple contiguous axial images were obtained through the chest after uneventful bolus administration of intravenous contrast. 3D reconstructed CTA MIP acquisitions were also performed. Auto Exposure Controls were utilized during the CT exam to meet ALARA standards for radiation dose reduction. INDICATION: Chest pain. COMPARISON: Comparison is made to study of 06/29/2011. FINDINGS: There is good opacification of pulmonary arteries without intraluminal filling defect. Thoracic aorta reveals no abnormality other than mild atherosclerotic disease. Note is made of two-vessel aortic arch branching pattern. The lungs are clear. There is no significant pleural or pericardial fluid. IMPRESSION: No CTA evidence of pulmonary embolism or other acute abnormality in the thorax. There is cholelithiasis. Dictated by: Dictated on workstation # [id number]
[2019-07-18] MEDS ORDERED: PREG25CA PO (18:05)
[2019-07-18] MEDS ORDERED: AMIT10TA6 PO (18:05)
--- NOTE | 2019-07-18 18:05 | NUR ---
Patient awake and alert at this time. She denies any nausea at this time. She is resting quietly in bed with family at bedside.
[2019-07-18 19:11] VITALS: BP 98/47
== END 2019-07-18 19:13 | disposition home or self-care (01) ==
LOC: EDUNIT# 16:21 → ER 16:22
DX: R07.9 Chest pain, unspecified (principal); I25.2 Old myocardial infarction; M79.7 Fibromyalgia; E03.9 Hypothyroidism, unspecified; F41.9 Anxiety disorder, unspecified; F32.9 Major depressive disorder, single episode, unspecified; Z85.42 Personal history of malignant neoplasm of other parts of uterus; Z90.49 Acquired absence of other specified parts of digestive tract; Z90.710 Acquired absence of both cervix and uterus; Z87.891 Personal history of nicotine dependence; Z85.818 Personal history of malignant neoplasm of other sites of lip, oral cavity, and pharynx; Z95.9 Presence of cardiac and vascular implant and graft, unspecified; Z93.0 Tracheostomy status; Z91.041 Radiographic dye allergy status; Z88.6 Allergy status to analgesic agent; Z80.42 Family history of malignant neoplasm of prostate
CPT/HCPCS: 36415; 71046; 71275; 80053; 83735; 83874; 84484; 85025; 85379; 85610; 85730; 93005; 93041

== ENCOUNTER 2019-10-10 17:36 | Emergency (ER) | payer MEDICAID ==
[~2019-10-10] VITALS: Ht 170 cm; Wt 87.1 kg
[~2019-10-10 17:36] MED LIST changes: +AMIT10TA6 PO; +PREG25CA PO
[2019-10-10] MEDS ORDERED: HYDROcodone/APAP 5 MG/325 MG (LORTAB) TAB PO ONE (18:00)
[2019-10-10] MEDS ORDERED: LIDOCAINE 1% INJ 20 ML 20 ML VIAL INJ ONE (18:00)
[2019-10-10] MEDS ORDERED: TETANUS,DIPTH,PERTUSS P/F (BOOSTRIX) 0.5 ML VIAL IM ONE (18:00)
--- NOTE | 2019-10-10 18:01 | NUR ---
left hand soaked in surgical soap and sterile saline.
--- NOTE | 2019-10-10 18:01 | ED Fall/Injury ---
General Chief Complaint: Laceration Stated Complaint: L HAND LAC Source: patient, spouse Exam Limitations: other (tracheostomy) History of Present Illness Date Seen by Provider: Oct 10, 2019 Time Seen by Provider: 17:42 Initial Comments Patient resents to ER by private conveyance with chief complaint that about 20- 30 minutes prior to arrival her neighbor's dog jumped up on her causing her fall forward and landed on outstretched hands. She tore the skin on a sharp rock on the ulnar side of her left hand. She's having a moderate amount of pain. She has full mobility of all her fingers. No numbness or tingling. She has not had a tetanus shot in the last 5 years. She has a history of mitral valve prolapse followed by cardiology and questionable history of coronary disease. Allergies and Home Medications Allergies Coded Allergies: Iodinated Contrast Media (Verified Adverse Reaction, Severe, Vomiting, 07/18/19) Violent vomiting with oral contrast aspirin (Verified Adverse Reaction, Mild, NAUSEA, 07/18/19) Home Medications Amitriptyline HCl 10 Mg Tablet, 10 MG PO DAILY, (Reported) Calcium Citrate 200 Mg Tablet, 200 MG PO DAILY, (Reported) Cephalexin 500 Mg Capsule, 500 MG PO TID Prescribed by: DARY CHATTERJEE on 10/10/191801 Gabapentin 250 Mg/5 Ml Solution, 250 MG PO TID, (Reported) Hydrocodone Bit/Acetaminophen 1 Tab Tab, 1 EACH PO Q4-6HR PRN for PAIN-MODERATE Prescribed by: DARY CHATTERJEE on 10/10/191801 Levothyroxine Sodium 125 Mcg Tablet, 125 MCG PO DAILY, (Reported) Pravastatin Sodium 40 Mg Tablet, 40 MG PO DAILY, (Reported) Pregabalin 25 Mg Capsule, 25 MG PO DAILY, (Reported) Quetiapine Fumarate 200 Mg Tablet, 200 MG PO HS, (Reported) Quetiapine Fumarate 300 Mg Tablet, PO HS, (Reported) Sertraline HCl 50 Mg Tablet, 50 MG PO DAILY, (Reported) Tramadol HCl 50 Mg Tablet, 50-100 MG PO Q4H PRN for PAIN-MILD TO MODERATE, (Reported) Patient Home Medication List Home Medication List Reviewed: Yes Review of Systems Review of Systems Constitutional: No chills, No diaphoresis Eyes: Denies Blindness, Denies Blurred Vision, Denies Drainage Ears, Nose, Mouth, Throat: denies ear pain, denies ear discharge Respiratory: No cough, No short of breath Cardiovascular: No chest pain, No edema Gastrointestinal: No abdominal pain, No constipation Past Ulrgqwt-Fyskzb-Dywums Hx Patient Social History Alcohol Use: Regular Use Alcohol Beverage of Choice: Whiskey Recreational Drug Use: No Smoking Status: Former Smoker Type Used: Cigarettes Former Smoker, Quit: Oct 05, 2018 2nd Hand Smoke Exposure: No Recent Foreign Travel: No Contact w/Someone Who Travel: No Recent Hopitalizations: No Immunizations Up To Date Tetanus Booster (TDap): Unknown PED Vaccines UTD: Yes Seasonal Allergies Seasonal Allergies: No Past Medical History Surgeries: Yes (vocal cords/thyroid removed due to throat cancer, tracheostomy, heart cath) Appendectomy, Hysterectomy, Orthopedic, Thyroidectomy Respiratory: Yes (tracheostomy) Cardiac: Yes Heart Attack Neurological: No 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 Transmitted Disease: No HIV/AIDS: No Genitourinary: No Gastrointestinal: Yes Chronic Diarrhea Musculoskeletal: Yes Fibromyalgia Endocrine: Yes Hypothyroidsim HEENT: Yes (throat cancer) Cataract Loss of Vision: Bilateral Cancer: Yes (throat ) Uterine Did You Recieve Any Treatments: Yes What Type of Treatment Did You: Surgical Intervention Psychosocial: No Anxiety, Depression Integumentary: No Blood Disorders: No Adverse Reaction/Blood Tranf: No (N/A) Family Medical History Diabetes mellitus 19 FATHER FH: COPD (chronic obstructive pulmonary disease) 19 MOTHER FH: cancer 19 MOTHER Prostate cancer G8 BROTHER Physical Exam Vital Signs Vital Signs - First Documented 10/10/19 17:42 Temp 37.2 Pulse 118 Resp 18 B/P (MAP) 119/67 (84) Pulse Ox 95 O2 Delivery Room Air Capillary Refill : Height, Weight, BMI Height: 5'7.00" Weight: 168lbs. 0.0oz. 76.461252qn; 29.00 BMI Method:Stated General Appearance: WD/WN, mild distress HEENT: PERRL/EOMI, pharynx normal Neck: non-tender; No normal inspection (tracheostomy in place unremarkable) Cardiovascular: normal peripheral pulses, regular rate, rhythm Respiratory: no respiratory distress, no accessory muscle use Peripheral Pulses: 2+ Radial Pulses (R), 2+ Radial Pulses (L) Extremities: normal capillary refill, other (4 cm, ragged linear tear of the skin down to the subcutaneous tenderness tissue along the ulnar side of the fifth metacarpal, hemostatic. Normal range of motion of the left hand and fingers. No pain over anatomic snuffbox. No deformity of the wrist.) Neurologic/Psychiatric: no motor/sensory deficits, alert, normal mood/affect, oriented x 3 Skin: normal color, warm/dry Guirnder Coma Score Best Eye Response: (4) Open Spontaneously Best Verbal Response: (5) Oriented Best Motor Response: (6) Obeys Commands Perry Total: 15 Procedures/Interventions Wound Location: Upper Extremities Other Wound Location Left hand ulnar side of the fifth metacarpal Wound Length (cm): 4 Wound's Depth, Shape: linear, sub Q Wound Explored: no foreign body removed Irrigated w/ Saline (ccs): 150 Anesthesia: 1% Lidocaine Volume Anesthetic (ccs): 6 Wound Debrided: minimal Suture: Ethlion Suture Size: 4-0 Number of Sutures: 6 Sterile Dressing Applied?: Yes Progress/Results/Core Measures Results/Orders My Orders Orders - DARY CHATTERJEE Hand, Left, 3 Views (10/10/19 17:53) Hydrocodone/Apap 5/325 Tablet (Lortab 5 (10/10/19 18:00) Lidocaine 1% Inj 20 Ml (Xylocaine 1% Inj (10/10/19 18:00) Dipht,Pertuss(Acell),Tet Adult (Boostrix (10/10/19 18:00) Medications Given in ED Current Medications Medications Dose Ordered Sig/Princess Route Start Time Stop Time Status Last Admin Dose Admin Acetaminophen/ Hydrocodone Bitart 1 tab ONCE ONCE PO 10/10/19 18:00 10/10/19 18:01 DC 10/10/19 18:08 1 TAB Diphtheria/ Tetanus/Acell Pertussis 0.5 ml ONCE ONCE IM 10/10/19 18:00 10/10/19 18:01 DC 10/10/19 18:08 0.5 ML Lidocaine HCl 20 ml ONCE ONCE INJ 10/10/19 18:00 10/10/19 18:01 DC 10/10/19 18:07 20 ML Vital Signs/I&O 10/10/19 17:42 Temp 37.2 Pulse 118 Resp 18 B/P (MAP) 119/67 (84) Pulse Ox 95 O2 Delivery Room Air Progress Progress Note : Time: 17:58 Progress Note Given the uncertain history of coronary disease will skip the NSAIDs and give her hydrocodone for her pain, use lidocaine to numb the handout cleaned th oroughly with chlorhexidine and sterile saline. We'll obtain x-ray of the hand first to rule out fracture and foreign body. After we thoroughly cleaned out we'll re-approximated and suture the wound. Plan to put her out on Keflex 3 times a day for infection prevention for 3 days. Diagnostic Imaging Diagonstic Imaging: Xray Plain Films/CT/US/NM/MRI: hand (left) Comments No acute osseous abnormality or foreign body seen on 3 view left hand. [facility]. POS [place], [place] POS NAME: JACKI LAROSE [facility] REC#: [id number] PT STATUS: REG ER : 1960 PHYSICIAN: DARY CHATTERJEE MD ADMIT DATE: 10/10/19/ER Draft POSDate of Exam:10/10/19 HAND, LEFT, 3 VIEWS HISTORY: Fall with laceration to the palm of the left hand TECHNIQUE: 3 views of the left hand COMPARISON: None FINDINGS: No acute fracture or dislocation is seen in the left hand. Alignment appears normal. No cortical erosions are seen. Joint spaces are generally preserved. No radiopaque foreign body is seen. IMPRESSION: 1. No acute osseous abnormality or radiopaque foreign body seen in the left hand. Dictated on workstation # [id number] Dict: 10/10/19 1841 Trans: 10/10/19 1844 [facility] [id number] Interpreted by: SAADIA ALAMO MD Electronically signed by: Reviewed: Reviewed by Me Departure Impression Primary Impression: Laceration of left hand Qualified Codes: S61.412A - Laceration without foreign body of left hand, initial encounter Additional Impression: Fall Qualified Codes: W19.XXXA - Unspecified fall, initial encounter Disposition: 01 HOME, SELF-CARE Condition: Improved Departure-Patient Inst. Decision time for Depature: 18:49 Referrals: MARIMAR JONES MD (PCP/Family) Primary Care Physician Patient Instructions: Laceration Repair With Stitches (DC) Add. Discharge Instructions: Keep the hand clean with regular soap and water. It's okay to apply a small dollop of Vaseline over the stitches to keep the dressing from sticking. Change the dressing daily or as often as it becomes soiled. Do not submerse the hand in water until the sutures are out. Showers and handwashing are okay. An Cesar bandage wrapped around the hand will help with compression to reduce pain and swelling. Tylenol 1000 mg every 8 hours as needed for pain. Ibuprofen 400 mg every 8 hours as needed for pain. Hydrocodone one tablet every 6 hours as needed for breakthrough pain it keeps you from being functional. Will cause drowsiness and constipation. Follow-up in the ER in 10 days to have sutures removed or you may follow-up with primary care. Keflex one capsule 3 times a day for the next 3 days to prevent infection. If you start to see increasing redness swelling and pain fever or discharge from the wound then you need to follow-up promptly. All discharge instructions reviewed with patient and/or family. Voiced understanding. Scripts Cephalexin (Keflex) 500 Mg Capsule 500 MG PO TID for 3 Days, #9 CAP 0 Refills Prov: DARY CHATTEJREE 10/10/19 Hydrocodone Bit/Acetaminophen (Hydrocodone/Acetaminophen 5/325mg Tablet) 1 Tab Tab 1 EACH PO Q4-6HR PRN for PAIN-MODERATE MDD 10 for 3 Days, #8 TAB 0 Refills Prov: DARY CHATTERJEE 10/10/19 Work/School Note: Work Release Form Date Seen in the Emergency Department: Oct 10, 2019 Return to Work: Oct 11, 2019 Restrictions: Need Release from Doctor Other Restrictions Listed Below: Minimize use of left hand and keep dressed and wrapped until 10/17/19. DARY CHATTERJEE Oct 10, 2019 18:01 POS
[2019-10-10] MEDS ORDERED: ACHD5005 PO (18:02)
[2019-10-10] MEDS ORDERED: CEPH-507 PO (18:02)
--- NOTE | 2019-10-10 18:45 | Diagnostic Imaging Report ---
HISTORY: Fall with laceration to the palm of the left hand TECHNIQUE: 3 views of the left hand COMPARISON: None FINDINGS: No acute fracture or dislocation is seen in the left hand. Alignment appears normal. No cortical erosions are seen. Joint spaces are generally preserved. No radiopaque foreign body is seen. IMPRESSION: 1. No acute osseous abnormality or radiopaque foreign body seen in the left hand. Dictated by: Dictated on workstation # [id number]
[2019-10-10 19:00] VITALS: BP 119/67
== END 2019-10-10 18:56 | disposition home or self-care (01) ==
LOC: EDUNIT# 17:36 → ER 17:37
DX: S61.412A Laceration without foreign body of left hand, initial encounter (principal); I25.2 Old myocardial infarction; M79.7 Fibromyalgia; E03.9 Hypothyroidism, unspecified; F41.9 Anxiety disorder, unspecified; F32.9 Major depressive disorder, single episode, unspecified; R40.2142 Coma scale, eyes open, spontaneous, at arrival to emergency department; R40.2252 Coma scale, best verbal response, oriented, at arrival to emergency department; R40.2362 Coma scale, best motor response, obeys commands, at arrival to emergency department; Z85.818 Personal history of malignant neoplasm of other sites of lip, oral cavity, and pharynx; Z85.42 Personal history of malignant neoplasm of other parts of uterus; Z23 Encounter for immunization; Z91.041 Radiographic dye allergy status; Z95.9 Presence of cardiac and vascular implant and graft, unspecified; Z88.6 Allergy status to analgesic agent; Z87.891 Personal history of nicotine dependence; Z90.89 Acquired absence of other organs; Z90.710 Acquired absence of both cervix and uterus; Z80.42 Family history of malignant neoplasm of prostate; W18.39XA Other fall on same level, initial encounter
CPT/HCPCS: 12002; 73130; 90715

== ENCOUNTER → 2019-11-24 | Outpatient (CLI) | payer MEDICAID ==
[~2019-11-24] MED LIST changes: +ACHD5005 PO; +CEPH-507 PO; -TRAM50TA2 PO
== END ==
LOC: EDSTATUS 08-18 12:34 → ONC 13:16
PROVIDERS: ATTEND Radiology Radiation Oncology
DX: C32.9 Malignant neoplasm of larynx, unspecified (principal); J43.9 Emphysema, unspecified; E78.00 Pure hypercholesterolemia, unspecified; I10 Essential (primary) hypertension; M19.91 Primary osteoarthritis, unspecified site; E89.0 Postprocedural hypothyroidism; F32.9 Major depressive disorder, single episode, unspecified; Z79.899 Other long term (current) drug therapy; Z87.891 Personal history of nicotine dependence
CPT/HCPCS: 99213

== ENCOUNTER → 2020-06-14 | Outpatient (CLI) | payer MEDICAID | LOC: ONC 01:30 | PROVIDERS: ATTEND Radiology Radiation Oncology | DX: Z53.9 Procedure and treatment not carried out, unspecified reason (principal) ==

== ENCOUNTER → 2020-07-31 | Outpatient (CLI) | payer MEDICAID ==
[~2020-07-31] MED LIST changes: +CATHETER FLUSH 10 ML SYR IV PRN; +HOLD METFORMIN - RECEIVED CONTRAST 20 ML VIAL IV SCH; +IOHEXOL 350 MG/ML 100 ML (OMNIPAQUE 350) VIAL IV ONE; +NS 100 ML (IVPB) BAG IV ONE
[2020-07-31 10:00] LABS: BUN/CREATININE RATIO 22; CREATININE SERUM 0.94 MG/DL (0.60-1.30); GFR ESTIMATED > 60
--- NOTE | 2020-07-31 11:49 | Diagnostic Imaging Report ---
INDICATION: Head and neck cancer. Compared with neck CT 09/07/2018, chest CT 07/18/2019. NECK: Post IV contrast-enhanced soft tissue neck CT performed with multiplanar reconstructions. FINDINGS: There has been interval laryngectomy. There is a trach tube present. There is bilateral cervical lymph node dissections performed. No identifiable lymphadenopathy or appreciable soft tissue mass. Prevertebral and retropharyngeal spaces unremarkable. There is no mastoid effusion, no bony destructive process. CHEST: There is no hilar and mediastinal axillary or chest wall lymphadenopathy. No dominant mass or suspicious pulmonary nodules. No findings of metastatic disease. No infiltrate, effusion or pneumothorax. The aorta is nonaneurysmal. No acute chest wall pathology. Visualized upper abdomen reveals stones within the gallbladder. IMPRESSION: NECK: Interval surgical changes without CT visualization of neoplastic recurrence or metastasis. CHEST: No evidence for thoracic metastasis or acute chest pathology. Dictated by: Dictated on workstation # [id number]
== END ==
LOC: RAD 10:15
PROVIDERS: ATTEND Radiology Radiation Oncology
DX: C32.9 Malignant neoplasm of larynx, unspecified (principal); C76.0 Malignant neoplasm of head, face and neck; Z90.02 Acquired absence of larynx
CPT/HCPCS: 36415; 70491; 71260; 82565; 84520

== ENCOUNTER → 2020-11-16 | Outpatient (CLI) | payer MEDICAID ==
[~2020-11-16] MED LIST changes: -CATHETER FLUSH 10 ML SYR IV PRN; -HOLD METFORMIN - RECEIVED CONTRAST 20 ML VIAL IV SCH; -IOHEXOL 350 MG/ML 100 ML (OMNIPAQUE 350) VIAL IV ONE; -NS 100 ML (IVPB) BAG IV ONE
== END ==
LOC: ONC 14:51
PROVIDERS: ATTEND Radiology Radiation Oncology
DX: C32.9 Malignant neoplasm of larynx, unspecified (principal)
CPT/HCPCS: 99213

== ENCOUNTER → 2021-05-17 | Outpatient (CLI) | payer MEDICAID ==
[~2021-05-17] MED LIST changes: -AMIT10TA6 PO; +AMT10T PO
== END ==
LOC: ONC 11:26
PROVIDERS: ATTEND Radiology Radiation Oncology
DX: C32.9 Malignant neoplasm of larynx, unspecified (principal)
CPT/HCPCS: 99213

== ENCOUNTER 2021-08-26 09:51 | Emergency (ER) | payer MEDICAID ==
[~2021-08-26] VITALS: Ht 170 cm; Wt 81.6 kg
[2021-08-26] MEDS ORDERED: NS IV 1000 ML 1,000 ML IV STA (10:06)
[2021-08-26] MEDS ORDERED: fentaNYL INJ 100 MCG/2 ML AMP IVP STA (10:06)
[2021-08-26 10:15] LABS: BASOPHILS # (AUTO) 0.1 10^3/uL (0.0-0.1); BASOPHILS % (AUTO) 1 % (0-10); EOSINOPHILS # (AUTO) 0.1 10^3/uL (0.0-0.3); EOSINOPHILS % (AUTO) 1 % (0-10); HEMATOCRIT 48 % (35-52); HEMOGLOBIN 16.3 g/dL (11.5-16.0); LYMPHOCYTES # (AUTO) 1.4 10^3/uL (1.0-4.0); LYMPHOCYTES % (AUTO) 13 % (12-44); MEAN CORPUSCULAR HEMOGLOBIN 33 pg (25-34); MEAN CORPUSCULAR HGB CONC 34 g/dL (32-36); MEAN CORPUSCULAR VOLUME 98 fL (80-99); MEAN PLATELET VOLUME 9.5 fL (9.0-12.2); MONOCYTES # (AUTO) 0.8 10^3/uL (0.0-1.0); MONOCYTES % (AUTO) 7 % (0-12); NEUTROPHILS # (AUTO) 8.9 10^3/uL (1.8-7.8); NEUTROPHILS % (AUTO) 79 % (42-75); PLATELET COUNT 300 10^3/uL (130-400); WHITE BLOOD COUNT 11.3 10^3/uL (4.3-11.0)
[2021-08-26] MEDS ORDERED: ONDANSETRON 4 MG/2 ML (SDV) Z0FRAN IVP ONE (10:15)
--- NOTE | 2021-08-26 10:18 | ED Syncope ---
General Chief Complaint: Trauma-Non Activation Stated Complaint: SYNCOPE/FALL Source of Information: Patient History of Present Illness Date Seen by Provider: Aug 26, 2021 Time Seen by Provider: 09:59 Initial Comments Here with report of syncopal episode this morning while going to the bathroom. Significant other reports that he heard a thump and realized that she probably fell. It woke him up from sleep. Patient unsure of loss of consciousness but thinks maybe she is out for a little bit. Has had some stomach cramping and diarrhea over the last few days. Denies chest pain or breathing problems. She does have tracheostomy but denies any changes in cough or breathing. She is able to expectorate mucus which is typical for her. Denies headache currently and is unsure if she hit her head. Main complaint is right-sided back pain from thoracic region to right hip. She was able to walk but it hurts quite a bit in the right low back. Also hurts in the lumbar region. No lesions from the fall. Timing/Prior Episodes: Single Episode Today Symptoms Prior to Episode: Lightheadedness Precipitating Factors: Standing Loss of Consciousness: Brief (Seconds) Current Symptoms: No Headache; Lightheadedness, Nausea Allergies and Home Medications Allergies Coded Allergies: Iodinated Contrast Media (Verified Adverse Reaction, Severe, Vomiting, 07/18/19) Violent vomiting with oral contrast aspirin (Verified Adverse Reaction, Mild, NAUSEA, 07/18/19) Patient Home Medication List Home Medication List Reviewed: Yes Amitriptyline HCl (Amitriptyline HCl) 10 Mg Tablet, 10 MG PO DAILY, (Reported) Entered as Reported by: JADON HDZ on 07/18/19 180 Calcium Citrate (Calcitrate) 200 Mg Tablet, 200 MG PO DAILY, (Reported) Entered as Reported by: NEO RUGGIERO on 11/11/18 1338 Cephalexin (Keflex) 500 Mg Capsule, 500 MG PO TID Prescribed by: DARY CHATTERJEE on 10/10/19 180 Gabapentin (Neurontin) 250 Mg/5 Ml Solution, 250 MG PO TID, (Reported) Entered as Reported by: NEO RUGGIERO on 11/11/18 1338 Hydrocodone Bit/Acetaminophen (Lortab 5 Mg Tablet) 1 Tab Tab, 1 EACH PO Q4-6HR PRN for PAIN-MODERATE Prescribed by: DARY CHATTERJEE on 10/10/19 180 Levothyroxine Sodium (Synthroid) 125 Mcg Tablet, 125 MCG PO DAILY, (Reported) Entered as Reported by: NEO RUGGIERO on 11/11/181337 Pravastatin Sodium (Pravastatin Sodium) 40 Mg Tablet, 40 MG PO DAILY, (Reported) Entered as Reported by: NEO RUGGIERO on 11/11/18 133 Pregabalin (Lyrica) 25 Mg Capsule, 25 MG PO DAILY, (Reported) Entered as Reported by: JADON HDZ on 07/18/19 180 Quetiapine Fumarate (Seroquel) 200 Mg Tablet, 200 MG PO HS, (Reported) Entered as Reported by: NEO RUGGIERO on 11/11/181337 Quetiapine Fumarate (Seroquel) 300 Mg Tablet, PO HS, (Reported) Entered as Reported by: NEO RUGGIERO on 11/11/18 133 Sertraline HCl (Zoloft) 50 Mg Tablet, 50 MG PO DAILY, (Reported) Entered as Reported by: NEO RUGGIERO on 11/11/181337 Tramadol HCl (Tramadol HCl) 50 Mg Tablet, 50-100 MG PO Q4H PRN for PAIN-MILD TO MODERATE, (Reported) Entered as Reported by: NEO RUGGIERO on 11/11/181337 Review of Systems Constitutional: see HPI; No chills, No fever EENTM: No nose congestion, No throat pain Respiratory: cough (Chronic); No short of breath Cardiovascular: No chest pain; syncope Gastrointestinal: abdominal pain, diarrhea, nausea; No vomiting Genitourinary: no symptoms reported Musculoskeletal: back pain, joint pain Skin: No change in color, No lesions Psychiatric/Neurological: Denies Headache, Denies Weakness All Other Systems Reviewed Negative Unless Noted: Yes Past Jevwgux-Gcrvyg-Ugukpn Hx Patient Social History Tobacco Use?: No Smoking Status: Former Smoker Substance use?: Yes Substance type: Marijuana Substance frequency: Daily Alcohol Use?: Yes Alcohol type: Wine Alcohol Frequency: Once in a while Immunizations Up To Date Tetanus Booster (TDap): Unknown PED Vaccines UTD: Yes Seasonal Allergies Seasonal Allergies: No Past Medical History Surgeries: Yes (vocal cords/thyroid removed due to throat cancer, tracheostomy, heart cath) Appendectomy, Hysterectomy, Orthopedic, Thyroidectomy Respiratory: Yes (tracheostomy) Cardiac: Yes Heart Attack Neurological: No Reproductive Disorders: Yes [employer] History: Hysterectomy Sexually Transmitted Disease: No HIV/AIDS: No Genitourinary: No Gastrointestinal: Yes Chronic Diarrhea Musculoskeletal: Yes Fibromyalgia Endocrine: Yes Hypothyroidsim HEENT: Yes (throat cancer) Cataract Loss of Vision: Bilateral Cancer: Yes (throat ) Uterine Did You Recieve Any Treatments: Yes What Type of Treatment Did You: Surgical Intervention Psychosocial: No Anxiety, Depression Integumentary: No Blood Disorders: No Adverse Reaction/Blood Tranf: No (N/A) Family Medical History Reviewed Nursing Family Hx Diabetes mellitus 19 FATHER FH: COPD (chronic obstructive pulmonary disease) 19 MOTHER FH: cancer 19 MOTHER Prostate cancer G8 BROTHER Physical Exam Vital Signs Vital Signs - First Documented Capillary Refill : Height, Weight, BMI Height: 5'7.00" Weight: 168lbs. 0.0oz. 76.658745qt; 30.00 BMI Method:Stated General Appearance: WD/WN, Mild Distress HEENT: PERRL/EOMI, Pharynx Normal, Other (Open tracheostomy stoma) Neck: Full Range of Motion, Non Tender, Supple Cardiovascular: Regular Rate, Rhythm, No Murmur Respiratory: Lungs Clear, Normal Breath Sounds Gastrointestinal: Non Tender, Soft, Other (Hyperactive bowel sounds) Back: Other (Tender right low back and lumbar spine as well as mild right hip pain. No obvious bruising or deformity) Extremities: Normal Range of Motion, Pelvis Stable, Other (Tender right hip and buttock) Cranial Nerves: Normal Speech, PERRL Motor/Sensory: No Motor Deficit, No Sensory Deficit Skin: Normal Color, Warm/Dry; No Ecchymosis Procedures/Interventions Suture Size: 4-0 Progress/Results/Core Measures Results/Orders Lab Results Laboratory Tests Test 08/26/21 10:10 08/26/21 11:34 Range/Units White Blood Count 11.3 H 4.3-11.0 10^3/uL Red Blood Count 4.93 3.80-5.11 10^6/uL Hemoglobin 16.3 H 11.5-16.0 g/dL Hematocrit 48 35-52 % Mean Corpuscular Volume 98 80-99 fL Mean Corpuscular Hemoglobin 33 25-34 pg Mean Corpuscular Hemoglobin Concent 34 32-36 g/dL Red Cell Distribution Width 13.6 10.0-14.5 % Platelet Count 300 130-400 10^3/uL Mean Platelet Volume 9.5 9.0-12.2 fL Immature Granulocyte % (Auto) 1 % Neutrophils (%) (Auto) 79 H 42-75 % Lymphocytes (%) (Auto) 13 12-44 % Monocytes (%) (Auto) 7 0-12 % Eosinophils (%) (Auto) 1 0-10 % Basophils (%) (Auto) 1 0-10 % Neutrophils # (Auto) 8.9 H 1.8-7.8 10^3/uL Lymphocytes # (Auto) 1.4 1.0-4.0 10^3/uL Monocytes # (Auto) 0.8 0.0-1.0 10^3/uL Eosinophils # (Auto) 0.1 0.0-0.3 10^3/uL Basophils # (Auto) 0.1 0.0-0.1 10^3/uL Immature Granulocyte # (Auto) 0.1 0.0-0.1 10^3/uL Sodium Level 139 135-145 MMOL/L Potassium Level 4.4 3.6-5.0 MMOL/L Chloride Level 103 98-107 MMOL/L Carbon Dioxide Level 21 21-32 MMOL/L Anion Gap 15 H 5-14 MMOL/L Blood Urea Nitrogen 13 7-18 MG/DL Creatinine 1.08 0.60-1.30 MG/DL Estimat Glomerular Filtration Rate 51 BUN/Creatinine Ratio 12 Glucose Level 137 H 70-105 MG/DL Calcium Level 8.5 8.5-10.1 MG/DL Corrected Calcium 8.1 L 8.5-10.1 MG/DL Total Bilirubin 0.6 0.1-1.0 MG/DL Aspartate Amino Transf (AST/SGOT) 21 5-34 U/L Alanine Aminotransferase (ALT/SGPT) 17 0-55 U/L Alkaline Phosphatase 70 40-136 U/L Troponin I < 0.028 <0.028 NG/ML C-Reactive Protein High Sensitivity 0.75 H 0.00-0.50 MG/DL Total Protein 8.0 6.4-8.2 GM/DL Albumin 4.5 3.2-4.5 GM/DL Urine Color YELLOW Urine Clarity CLEAR Urine pH 7.0 5-9 Urine Specific [place] 1.025 H 1.016-1.022 Urine Protein 1+ H NEGATIVE Urine Glucose (UA) NEGATIVE NEGATIVE Urine Ketones TRACE H NEGATIVE Urine Nitrite POSITIVE H NEGATIVE Urine Bilirubin NEGATIVE NEGATIVE Urine Urobilinogen 0.2 < = 1.0 MG/DL Urine Leukocyte Esterase TRACE H NEGATIVE Urine RBC (Auto) TRACE-I H NEGATIVE Urine RBC 2-5 H /HPF Urine WBC 2-5 /HPF Urine Squamous Epithelial Cells 0-2 /HPF Urine Crystals NONE /LPF Urine Bacteria LARGE H /HPF Urine Casts NONE /LPF Urine Mucus NEGATIVE /LPF Urine Culture Indicated YES My Orders Orders - EVERETTE MADRID MD Cbc With Automated Diff (08/26/21 10:06) Comprehensive Metabolic Panel (08/26/21 10:06) Hs C Reactive Protein (08/26/21 10:06) Troponin I (08/26/21 10:06) Ua Culture If Indicated (08/26/21 10:06) Chest 1 View, Ap/Pa Only (08/26/21 10:06) Pelvis With Right Hip 2-3views (08/26/21 10:06) Ct Head Wo (08/26/21 10:06) Ct Lumbar Spine Wo (08/26/21 10:06) Fentanyl Inj (Sublimaze Injection) (08/26/21 10:06) Ondansetron Injection (Zofran Injectio (08/26/21 10:15) Ns Iv 1000 Ml (Sodium Chloride 0.9%) (08/26/21 10:06) Ed Iv/Invasive Line Start (08/26/21 10:06) Urine Culture (08/26/21 11:34) Lortab 5mg Po (08/26/21 12:30) Ceftriaxone 1 Gram Ivp (08/26/21 12:19) Medications Given in ED Current Medications Medications Dose Ordered Sig/Princess Route Start Time Stop Time Status Last Admin Dose Admin Ondansetron HCl 4 mg ONCE ONCE IVP 08/26/21 10:15 08/26/21 10:16 DC 08/26/21 10:20 4 MG Vital Signs/I&O 08/26/21 08/26/21 10:05 10:05 Temp 35.3 35.3 Pulse 77 77 Resp 17 17 B/P (MAP) 127/83 (98) 127/83 (98) Pulse Ox 99 99 O2 Delivery Room Air Room Air Progress Progress Note : Progress Note Seen and evaluated. IV, labs, UA, CT head and lumbar spine, chest x-ray and x- ray of pelvis and right hip ordered. Normal saline 1 L bolus. Fentanyl 50 mcg IV ordered. Monitor patient. 1220: Radiology and lab results reviewed. Patient does have urinary tract infection which we will treat with Rocephin 1 g IV now and then outpatient with cephalexin. She also has new anterior small fracture to the L4 vertebrae without loss of height and no retropulsion. This would be otherwise stable fracture that needs outpatient evaluation. This was discussed with the patient and family. Hydrocodone 5/325 one tab p.o. now. I'll discharge her and she will follow up with her primary care doctor and I will give her names of a couple of orthopedic surgeons that work on backs. She will either follow-up directly or through the [facility]. Discharged home with return precautions. Patient and family verbalized understanding of instructions and agreement with plan. Diagnostic Imaging Diagonstic Imaging: CT Plain Films/CT/US/NM/MRI: head Comments [facility]. [place], [place] NAME: JACKI LAROSE [facility] REC#: [id number] PT STATUS: REG ER : 1960 PHYSICIAN: EVERETTE MADRID MD ADMIT DATE: 08/26/21/ER Draft Date of Exam:08/26/21 CT HEAD WO PROCEDURE: CT head without contrast. TECHNIQUE: Multiple contiguous axial images were obtained through the brain without the use of intravenous contrast. Auto Exposure Controls were utilized during the CT exam to meet ALARA standards for radiation dose reduction. INDICATION: Fall. Head injury. Syncope. COMPARISON: 02/16/2009. FINDINGS: No CT evidence of a territorial infarction. No intracranial hemorrhage, mass effect, hydrocephalus or extra-axial fluid collections. Osseous structures are intact. Visualized paranasal sinuses and mastoids are clear. IMPRESSION: No acute intracranial CT findings. Dictated on workstation # [id number] Dict: 08/26/21 1101 Trans: 08/26/21 1114 [facility] [id number] Interpreted by: MANPREET DOWELL MD Electronically signed by: Diagonstic Imaging: CT Plain Films/CT/US/NM/MRI: other Comments [facility] [place] [place] NAME: JACKI LAROSE [facility] REC#: [id number] PT STATUS: REG ER : 1960 PHYSICIAN: EVERETTE MADRID MD ADMIT DATE: 08/26/21/ER Draft Date of Exam:08/26/21 CT LUMBAR SPINE WO PROCEDURE: CT lumbar spine without contrast. TECHNIQUE: Multiple contiguous axial images were obtained through the lumbar spine without the use of intravenous contrast. Sagittal and coronal reformations were then performed. Auto Exposure Controls were utilized during the CT exam to meet ALARA standards for radiation dose reduction. INDICATION: Right-sided low back pain. Fall. COMPARISON: Lumbar spine radiographs 10/07/2017. MRI lumbar spine without contrast 09/06/2013. FINDINGS: There are 5 lumbar-type vertebral bodies. Normal alignment. Chronic superior endplate compression fracture of L1 resulting in approximately 50% height loss anteriorly. There are acute appearing fracture lines involving the anterior right L4 vertebral body and inferior endplate without definite height loss. Advanced degenerative endplate changes at L5-S1. Disc space height loss and disc bulging appear to result in at least moderate bilateral neural foraminal narrowing at L4-L5. Severe neural foraminal narrowing on the right at L5-S1. No high-grade spinal canal stenosis is evident on soft tissue windows. Visualized pelvis is intact. Mild atherosclerotic calcifications. Visualized paravertebral soft tissues are unremarkable. IMPRESSION: 1. Acute appearing fracture lines involving the right anterior L4 vertebral body and inferior endplate. No definite height loss. No other acute appearing findings in the lumbar spine. 2. Chronic superior endplate compression fracture of L1. 3. Spondylotic changes likely result in high-grade neural foraminal narrowing bilaterally at L4-L5 and on the right at L5-S1. Dictated on workstation # [id number] Dict: 08/26/21 1103 Trans: 08/26/21 1117 [facility] [id number] Interpreted by: MANPREET DOWELL MD Electronically signed by: Diagonstic Imaging: Xray Plain Films/CT/US/NM/MRI: chest Comments [facility] [place] [place] NAME: JACKI LAROSE [facility] REC#: [id number] PT STATUS: REG ER : 1960 PHYSICIAN: EVERETTE MADRID MD ADMIT DATE: 08/26/21/ER Draft Date of Exam:08/26/21 CHEST 1 VIEW, AP/PA ONLY Clinical indications: Patient status post fall with syncope this morning. Patient has right lower side back pain. Exam: Chest x-ray PA view only. Comparisons: Portable chest x-ray dated 05/21/2016. Findings: Lungs/pleura: There is minimal atelectasis or scarring in the left lung base. Otherwise, the lungs are clear. There is no pneumothorax. There is no pleural effusion. Mediastinum: Unremarkable. Pulmonary vasculature: Unremarkable. Heart: Unremarkable. Bones/extrathoracic soft tissue: Unremarkable. Impression: There is minimal left basilar atelectasis or scarring in the left lung base. Otherwise, there is no radiographic evidence of acute cardiopulmonary process. Dictated on workstation # [id number] Dict: 08/26/21 1112 Trans: 08/26/21 1119 [facility] [id number] Interpreted by: HARSHAD WHITNEY MD Electronically signed by: Jesenia Imaging: Xray Plain Films/CT/US/NM/MRI: pelvis, hip Comments [facility] [place], [place] NAME: JACKI LAROSE [facility] REC#: [id number] PT STATUS: REG ER : 1960 PHYSICIAN: EVERETTE MADRID MD ADMIT DATE: 08/26/21/ER Draft Date of Exam:08/26/21 PELVIS WITH RIGHT HIP 2-3VIEWS CLINICAL INDICATIONS: Patient with pelvic and hip pain. Patient status post fall. EXAM: X-ray of the pelvis, AP view, and right hip, AP and frog-leg views. COMPARISON: CT scan of abdomen and pelvis with contrast dated 04/23/2007. FINDINGS AND IMPRESSION: 1: There is no acute fracture or dislocation. 2: There is a roughly 2.5 cm sclerotic area involving the right iliac crest which is also seen on the comparison CT scan dated 04/23/2007 and is a benign finding suspected to represent bone island. 3: The remainder of the pelvis and hips show no other significant abnormality. Phleboliths are seen in the pelvis. Dictated on workstation # [id number] Dict: 08/26/21 1113 Trans: 08/26/21 1121 [facility] [id number] Interpreted by: HARSHAD WHITNEY MD Electronically signed by: Departure Impression Primary Impression: Urinary tract infection Qualified Codes: N30.00 - Acute cystitis without hematuria Additional Impression: Fracture lumbar vertebra-closed Qualified Codes: S32.040A - Wedge compression fracture of fourth lumbar vertebra, initial encounter for closed fracture Disposition: HOME, SELF-CARE Condition: Stable Departure-Patient Inst. Decision time for Depature: 12:22 Referrals: FANNIE MAYA DAVID F MD (PCP/Family) Primary Care Physician RAMSES CHACON MD Patient Instructions: Vertebral Compression Fracture ED, Urinary Tract Infection, Adult ED Add. Discharge Instructions: All discharge instructions reviewed with patient and/or family. Voiced understanding. You may take Tylenol/acetaminophen 1000 mg every 6-8 hours as needed for pain but do not take with the prescribed pain medicine as they both have acetaminophen in them. While you are taking the prescribed pain medicine, you should use something to prevent constipation such as MiraLAX or the generic, one capful twice daily as needed to keep stools soft. You may increase or decrease the dose to keep stools in normal range. Drink plenty of fluids. Follow-up with your doctor for recheck and further evaluation. You may follow-up with your doctor or the orthopedist listed for further evaluation regarding the lumbar fracture. Return for worse pain, weakness, numbness, difficulty with walking or going to the bathroom or other concerns as needed. Scripts Hydrocodone Bit/Acetaminophen (HYDROcodone/APAP 5 MG/325 MG TAB) 1 Tab Tab 1 TAB PO Q6H for Pain, #12 TAB 0 Refills Prov: EVERETTE MADRID MD 08/26/21 Cephalexin (Cephalexin) 500 Mg Tablet 500 MG PO BID, #10 TAB 0 Refills Prov: EVERETTE MADRID MD 08/26/21 Copy Copies To 1: MARIMAR JONES MD, TIMOTHY D MD Aug 26, 2021 10:18
[2021-08-26 10:25] LABS: ALBUMIN 4.5 GM/DL (3.2-4.5); CHLORIDE 103 MMOL/L (98-107); POTASSIUM 4.4 MMOL/L (3.6-5.0); SODIUM 139 MMOL/L (135-145)
[2021-08-26 10:26] LABS: CALCIUM 8.5 MG/DL (8.5-10.1)
[2021-08-26 10:27] LABS: GLUCOSE 137 MG/DL (70-105)
[2021-08-26 10:29] LABS: BILIRUBIN,TOTAL 0.6 MG/DL (0.1-1.0); CARBON DIOXIDE 21 MMOL/L (21-32)
[2021-08-26 10:31] LABS: ALKALINE PHOSPHATASE 70 U/L (40-136); CREATININE SERUM 1.08 MG/DL (0.60-1.30); GFR ESTIMATED 51
[2021-08-26 10:32] LABS: BUN/CREATININE RATIO 12
[2021-08-26 10:34] LABS: ALANINE AMINOTRANSFERASE 17 U/L (0-55)
--- NOTE | 2021-08-26 11:15 | Diagnostic Imaging Report ---
PROCEDURE: CT head without contrast. TECHNIQUE: Multiple contiguous axial images were obtained through the brain without the use of intravenous contrast. Auto Exposure Controls were utilized during the CT exam to meet ALARA standards for radiation dose reduction. INDICATION: Fall. Head injury. Syncope. COMPARISON: 02/16/2009. FINDINGS: No CT evidence of a territorial infarction. No intracranial hemorrhage, mass effect, hydrocephalus or extra-axial fluid collections. Osseous structures are intact. Visualized paranasal sinuses and mastoids are clear. IMPRESSION: No acute intracranial CT findings. Dictated by: Dictated on workstation # [id number]
--- NOTE | 2021-08-26 11:17 | Diagnostic Imaging Report ---
PROCEDURE: CT lumbar spine without contrast. TECHNIQUE: Multiple contiguous axial images were obtained through the lumbar spine without the use of intravenous contrast. Sagittal and coronal reformations were then performed. Auto Exposure Controls were utilized during the CT exam to meet ALARA standards for radiation dose reduction. INDICATION: Right-sided low back pain. Fall. COMPARISON: Lumbar spine radiographs 10/07/2017. MRI lumbar spine without contrast 09/06/2013. FINDINGS: There are 5 lumbar-type vertebral bodies. Normal alignment. Chronic superior endplate compression fracture of L1 resulting in approximately 50% height loss anteriorly. There are acute appearing fracture lines involving the anterior right L4 vertebral body and inferior endplate without definite height loss. Advanced degenerative endplate changes at L5-S1. Disc space height loss and disc bulging appear to result in at least moderate bilateral neural foraminal narrowing at L4-L5. Severe neural foraminal narrowing on the right at L5-S1. No high-grade spinal canal stenosis is evident on soft tissue windows. Visualized pelvis is intact. Mild atherosclerotic calcifications. Visualized paravertebral soft tissues are unremarkable. IMPRESSION: 1. Acute appearing fracture lines involving the right anterior L4 vertebral body and inferior endplate. No definite height loss. No other acute appearing findings in the lumbar spine. 2. Chronic superior endplate compression fracture of L1. 3. Spondylotic changes likely result in high-grade neural foraminal narrowing bilaterally at L4-L5 and on the right at L5-S1. Dictated by: Dictated on workstation # [id number]
--- NOTE | 2021-08-26 11:20 | Diagnostic Imaging Report ---
Clinical indications: Patient status post fall with syncope this morning. Patient has right lower side back pain. Exam: Chest x-ray PA view only. Comparisons: Portable chest x-ray dated 05/21/2016. Findings: Lungs/pleura: There is minimal atelectasis or scarring in the left lung base. Otherwise, the lungs are clear. There is no pneumothorax. There is no pleural effusion. Mediastinum: Unremarkable. Pulmonary vasculature: Unremarkable. Heart: Unremarkable. Bones/extrathoracic soft tissue: Unremarkable. Impression: There is minimal left basilar atelectasis or scarring in the left lung base. Otherwise, there is no radiographic evidence of acute cardiopulmonary process. Dictated by: Dictated on workstation # [id number]
--- NOTE | 2021-08-26 11:22 | Diagnostic Imaging Report ---
CLINICAL INDICATIONS: Patient with pelvic and hip pain. Patient status post fall. EXAM: X-ray of the pelvis, AP view, and right hip, AP and frog-leg views. COMPARISON: CT scan of abdomen and pelvis with contrast dated 04/23/2007. FINDINGS AND IMPRESSION: 1: There is no acute fracture or dislocation. 2: There is a roughly 2.5 cm sclerotic area involving the right iliac crest which is also seen on the comparison CT scan dated 04/23/2007 and is a benign finding suspected to represent bone island. 3: The remainder of the pelvis and hips show no other significant abnormality. Phleboliths are seen in the pelvis. Dictated by: Dictated on workstation # [id number]
[2021-08-26 11:41] LABS: CLARITY,URINE CLEAR; COLOR,URINE YELLOW; GLUCOSE, URINE (UA) NEGATIVE (NEGATIVE); KETONES,URINE TRACE (NEGATIVE); LEUKOCYTE ESTERASE ,URINE TRACE (NEGATIVE); NITRITE,URINE POSITIVE (NEGATIVE); PROTEIN,URINE 1+ (NEGATIVE)
[2021-08-26 11:52] LABS: BACTERIA,URINE LARGE /HPF; BILIRUBIN,URINE NEGATIVE (NEGATIVE); SQUAMOUS EPITHELIAL CELL,UR 0-2 /HPF
[2021-08-26] MEDS ORDERED: cefTRIAXone 1,000 MG in WATER (STERILE) FOR INJECTION 10 ML IV STA (12:19)
[2021-08-26] MEDS ORDERED: CEPH500T PO (12:25)
[2021-08-26] MEDS ORDERED: ACHD5005 PO (12:25)
[2021-08-26] MEDS ORDERED: HYDROcodone/APAP 5 MG/325 MG (LORTAB) TAB PO ONE (12:30)
[2021-08-26 12:37] VITALS: BP 119/83
== END 2021-08-26 12:37 | disposition home or self-care (01) ==
LOC: EDUNIT# 09:51 → ER 09:52
DX: S32.040A Wedge compression fracture of fourth lumbar vertebra, initial encounter for closed fracture (principal); S32.010A Wedge compression fracture of first lumbar vertebra, initial encounter for closed fracture; N39.0 Urinary tract infection, site not specified; I25.2 Old myocardial infarction; F41.9 Anxiety disorder, unspecified; F32.9 Major depressive disorder, single episode, unspecified; E03.9 Hypothyroidism, unspecified; Z87.891 Personal history of nicotine dependence; Z79.899 Other long term (current) drug therapy; Z79.890 Hormone replacement therapy; W19.XXXA Unspecified fall, initial encounter
CPT/HCPCS: 36415; 70450; 71045; 72131; 80053; 81000; 84484; 85025; 86141; 87077; 87088; 87186; 96361; 96374; 96375

== ENCOUNTER → 2022-05-23 | Outpatient (CLI) | payer MEDICAID ==
[~2022-05-23] MED LIST changes: +CEPH500T PO; +OMEP20TA56 PO; -OMEP20TA7 PO
== END ==
LOC: ONC 10:26
PROVIDERS: ATTEND Radiology Radiation Oncology
DX: C32.9 Malignant neoplasm of larynx, unspecified (principal); E78.5 Hyperlipidemia, unspecified
CPT/HCPCS: 99213

== ENCOUNTER 2023-05-08 21:03 | Inpatient (IN) | payer MEDICAID ==
[~2023-05-08] VITALS: Ht 170.2 cm; Wt 76.2 kg
[2023-05-08] MEDS ORDERED: LACTATED RINGERS 1,000 ML IV ONE (21:15)
[2023-05-08] MEDS ORDERED: LIDOCAINE UROJET 2% GEL 10 ML PKG TOP ONE (21:15)
--- NOTE | 2023-05-08 21:44 | Diagnostic Imaging Report ---
Indication: Altered mental status and dyspnea. Frontal chest obtained at 9:27 p.m. Heart is normal in size. Mediastinal silhouette is unremarkable. There is central vascular congestion with some mild bibasilar infiltrate. There is no pneumothorax or pleural fluid. Impression: Central vascular congestion with some mild bibasilar infiltrate. No pneumothorax or pleural fluid. Dictated by: Dictated on workstation # [id number]
--- NOTE | 2023-05-08 21:54 | Diagnostic Imaging Report ---
INDICATION: Altered mental status. TECHNIQUE: Multiple contiguous axial images were obtained through the brain without the use of intravenous contrast. Auto Exposure Controls were utilized during the CT exam to meet ALARA standards for radiation dose reduction. Comparison made with 08/26/2021. There were no extra-axial fluid collections. There is no acute intracranial hemorrhage. No mass effect or midline shift. The ventricles are normal in size and position. There appears to be hyperdensity in the territory of the left distal anterior cerebral artery as well as in the left middle cerebral artery at the sylvian fissure. These findings raise the possibility of intraluminal thrombi. Calvarial windows are unremarkable. IMPRESSION: No acute hemorrhage or mass effect. There are possible hyperdense vessel signs in the left distal anterior cerebral artery and left middle cerebral artery at the sylvian fissure, which raises possibility of intraluminal thrombi. Recommend correlation with CTA. Dictated by: Dictated on workstation # [id number]
[2023-05-08] MEDS ORDERED: ONDANSETRON 4 MG/2 ML (SDV) Z0FRAN IVP ONE (22:00)
--- NOTE | 2023-05-08 22:02 | ED General ---
General Chief Complaint: Altered Mental Status Stated Complaint: SOB|AMS Nursing Triage Note: BROUGHT IN BY [facility] FOR ALTERED MENTAL STATUS, SOA. EMS REPORTS PT'S CALLED FORPT NOT ACTING RIGHT. Source of Information: Old Records, Spouse Exam Limitations: Other (PT HAS TRACH AND IS NOT ABLE TO TALK) History of Present Illness Date Seen by Provider: May 08, 2023 Time Seen by Provider: 21:10 Initial Comments PT ARRIVES VIA EMS FROM HOME SIGNIFICANT OTHER CALLED EMS FOR PT WITH ALTERED MENTAL STATUS HE STATES THAT PT WAS FINE AT 1900, AND THEY WERE LAYING IN BED AND SHE TOLD HIM THAT SHE LOVED HIM ( MOUTHED THE WORDS, PT IS NOT ABLE TO ACTUALLY TALK), AND ROLLED OVER. HE STATES 10 MINUTES LATER, SHE "WOULDN'T RESPOND"--HE STATES SHE WAS AWAKE, BUT WAS CONFUSED AND ACTED LIKE SHE DID NOT KNOW WHO HE WAS. ON ARRIVAL HERE, PT IS VERY ALERT, AND IS ABLE TO ANSWER YES/NO QUESTIONS BY NODDING OR SHAKING HEAD OR USING HAND GESTURES. SHE IS ABLE TO STAND ON HER OWN AND GET UP TO BEDSIDE COMMODE ON HER OWN, SHORTLY AFTER ARRIVAL. ON ASKING IF SHE HAS PAIN ANYWHERE, SHE POINTS TO HER LOWER BACK. SHE DOES RELATE THAT THIS IS AN OLD PROBLEM AND NOTHING IS NEW ABOUT IT. 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 SHE CONTINUES TO SMOKE CIGARETTES AND MARIJUANA SHE IS NOT ON HOME O2 PCP: [facility] [place] Allergies and Home Medications Allergies Coded Allergies: Iodinated Contrast Media (Verified Adverse Reaction, Severe, Vomiting, 07/18/19) Violent vomiting with oral contrast aspirin (Verified Adverse Reaction, Mild, NAUSEA, 07/18/19) Patient Home Medication List Home Medication List Reviewed: Yes Acetaminophen (Tylenol Extra Strength) 500 Mg Tablet, 500-1,000 MG PO Q8H PRN for PAIN-MILD (1-4), (Reported) Entered as Reported by: TIKI ARIZA on 05/09/231417 Last Action: Reviewed Diclofenac Sodium (Diclofenac Sodium) 75 Mg Tablet.dr, 75 MG PO BIDPC, (Reported) Entered as Reported by: TIKI ARIZA on 05/09/231417 Last Action: Converted Gabapentin (Gabapentin) 600 Mg Tablet, 600 MG PO BID, (Reported) Entered as Reported by: TIKI ARIZA on 05/09/231417 Last Action: Continued Levothyroxine Sodium (Levothyroxine Sodium) 137 Mcg Tablet, 137 MCG PO DAILY, (Reported) Entered as Reported by: TIKI ARIZA on 05/09/231417 Last Action: Converted Midodrine HCl (Midodrine HCl) 2.5 Mg Tablet, 2.5 MG PO DAILY, (Reported) Entered as Reported by: TIKI ARIZA on 05/09/231417 Last Action: Converted Multivitamin/Iron/Folic Acid (Centrum Women Tablet) 18 Mg Iron-400 Mcg Tablet, 1 EACH PO DAILY, (Reported) Entered as Reported by: TIKI ARIZA on 05/09/231417 Last Action: Continued Pravastatin Sodium (Pravastatin Sodium) 40 Mg Tablet, 40 MG PO DAILY, (Reported) Entered as Reported by: NEO RUGGIERO on 11/11/181337 Last Action: Converted Quetiapine Fumarate (Quetiapine Fumarate ER) 400 Mg Tab.er.24h, 400 MG PO 1900, (Reported) Entered as Reported by: TIKI ARIZA on 05/09/231417 Last Action: Converted Sertraline HCl (Sertraline HCl) 100 Mg Tablet, 200 MG PO DAILY, (Reported) Entered as Reported by: TIKI ARIZA on 05/09/231417 Last Action: Continued Discontinued Medications Amitriptyline HCl (Amitriptyline HCl) 10 Mg Tablet, 10 MG PO DAILY, (Reported) Discontinued Reason: No Longer Taking Entered as Reported by: JADON HDZ on 07/18/19 180 Last Action: Discontinued Calcium Citrate (Calcitrate) 200 Mg Tablet, 200 MG PO DAILY, (Reported) Discontinued Reason: No Longer Taking Entered as Reported by: NEO RUGGIERO on 11/11/181337 Last Action: Discontinued Cephalexin (Keflex) 500 Mg Capsule, 500 MG PO TID Discontinued Reason: No Longer Taking Prescribed by: DARY CHATTERJEE on 10/10/19 1802 Last Action: Discontinued Cephalexin (Cephalexin) 500 Mg Tablet, 500 MG PO BID Discontinued Reason: No Longer Taking Prescribed by: EVERETTE MADRID on 08/26/21 1225 Last Action: Discontinued Gabapentin (Neurontin) 250 Mg/5 Ml Solution, 250 MG PO TID, (Reported) Discontinued Reason: No Longer Taking Entered as Reported by: NEO RUGGIERO on 11/11/181337 Last Action: Discontinued Hydrocodone Bit/Acetaminophen (Lortab 5 Mg Tablet) 1 Tab Tab, 1 EACH PO Q4-6HR PRN for PAIN-MODERATE Discontinued Reason: No Longer Taking Prescribed by: DARY CHATTERJEE on 10/10/19 180 Last Action: Discontinued Hydrocodone Bit/Acetaminophen (HYDROcodone/APAP 5 MG/325 MG TAB) 1 Tab Tab, 1 TAB PO Q6H Discontinued Reason: No Longer Taking Prescribed by: EVERETTE MADRID on 08/26/21 1225 Last Action: Discontinued Levothyroxine Sodium (Synthroid) 125 Mcg Tablet, 125 MCG PO DAILY, (Reported) Discontinued Reason: No Longer Taking Entered as Reported by: NEO RUGGIERO on 11/11/181337 Last Action: Discontinued Pregabalin (Lyrica) 25 Mg Capsule, 25 MG PO DAILY, (Reported) Discontinued Reason: No Longer Taking Entered as Reported by: JADON HDZ on 07/18/191804 Last Action: Discontinued Quetiapine Fumarate (Seroquel) 200 Mg Tablet, 200 MG PO HS, (Reported) Discontinued Reason: No Longer Taking Entered as Reported by: NEO RUGGIERO on 11/11/181337 Last Action: Discontinued Quetiapine Fumarate (Seroquel) 300 Mg Tablet, PO HS, (Reported) Discontinued Reason: No Longer Taking Entered as Reported by: NEO RUGGIERO on 11/11/181337 Last Action: Discontinued Sertraline HCl (Zoloft) 50 Mg Tablet, 50 MG PO DAILY, (Reported) Discontinued Reason: No Longer Taking Entered as Reported by: NEO RUGGIERO on 11/11/181337 Last Action: Discontinued Tramadol HCl (Tramadol HCl) 50 Mg Tablet, 50-100 MG PO Q4H PRN for PAIN-MILD TO MODERATE, (Reported) Discontinued Reason: No Longer Taking Entered as Reported by: NEO RUGGIERO on 11/11/181337 Last Action: Discontinued Review of Systems Review of Systems Constitutional: see HPI; No fever EENTM: no symptoms reported Respiratory: no symptoms reported Cardiovascular: no symptoms reported Gastrointestinal: no symptoms reported Genitourinary: no symptoms reported Musculoskeletal: no symptoms reported Skin: no symptoms reported Psychiatric/Neurological: See HPI Hematologic/Lymphatic: No Symptoms Reported Immunological/Allergic: no symptoms reported Past Eyxirqk-Aobxef-Wxdiyx Hx Patient Social History Tobacco Use?: Yes Tobacco type used: Cigarettes Smoking Status: Current Everyday Smoker Substance use?: Yes Substance type: Marijuana Substance frequency: Daily Alcohol Use?: Yes Alcohol Frequency: Rarely Pt feels they are or have been: No Immunizations Up To Date Tetanus Booster (TDap): Unknown PED Vaccines UTD: Yes First/Initial COVID19 Vaccinat: April COVID19 Vaccination Benigno: April COVID19 Vaccination Date: APRIL Seasonal Allergies Seasonal Allergies: No Past Medical History Surgery/Hospitalization HX: THRYOIDECTOMY, THROAT CA, HEART CATH, TRACH, APPENDECTOMY, HYSTERECTOMY, [place], ANX/DEP, HLD, HYPOTHRYOID Surgeries: Yes (vocal cords/thyroid removed due to throat cancer, tracheostomy, heart cath) Appendectomy, Cardiac, Hysterectomy, Orthopedic, Thyroidectomy Respiratory: Yes (tracheostomy) Cardiac: Yes Coronary Artery Disease, Heart Attack, High Cholesterol Neurological: No 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 Sexually Transmitted Disease: No HIV/AIDS: No Genitourinary: No Gastrointestinal: Yes (HAD FEEDIING TUBE, LATER REMOVED) Chronic Diarrhea Musculoskeletal: Yes Fibromyalgia Endocrine: Yes Hypothyroidsim HEENT: Yes (LARYNGEAL CANCER) Cataract Loss of Vision: Bilateral Cancer: Yes (LARYNGEAL ) Uterine Did You Recieve Any Treatments: Yes What Type of Treatment Did You: Radiation, Surgical Intervention Psychosocial: Yes Anxiety, Depression Integumentary: No Blood Disorders: No Adverse Reaction/Blood Tranf: No (N/A) Family Medical History Diabetes mellitus 19 FATHER FH: COPD (chronic obstructive pulmonary disease) 19 MOTHER FH: cancer 19 MOTHER Prostate cancer G8 BROTHER LARYNGEAL CANCER 2019--S/P LARYNGECTOMY WITH RADIATION; FEEDING TUBE PLACED 2018, LATER REMOVED. Physical Exam Vital Signs Vital Signs - First Documented 05/08/23 05/08/23 21:04 23:13 Temp 36.7 Pulse 96 Resp 18 B/P (MAP) 129/75 (93) Pulse Ox 94 O2 Delivery Room Air O2 Flow Rate 10.00 FiO2 35 Capillary Refill : Less Than 3 Seconds Height, Weight, BMI Height: 5'7.00" Weight: 168lbs. 0.0oz. [id number]; 26.00 BMI Method:Stated General Appearance: No Apparent Distress, WD/WN, Other (REEKS OF CIGARETTES AND MARIJUANA. UNKEMPT. RESTLESS WITH CONSTANT MOVEMENTS. ) HEENT: PERRL/EOMI, TMs Normal, Other (EDENTULOUS. ) Neck: Other (TRACH SITE WITH NORMAL APPEARANCE. 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 STATES THIS IS NORMAL FOR HER. HE STATES SHE IS BACK TO NORMAL NOW. SHE SEEMS TO BE COMMUNCIATING WITH HIM NORMALLY BY MOUTHING WORDS, AND GESTURING. SHE IS SMILING AND MAKING DIRECT EYE CONTACT. SHE IS NEUROLOGICALLY INTACT AT THIS TIME, LIMITED BY OBVIOUSLY UNABLE TO DO VOCAL ASSESSMENT. ) Skin: Normal Color, Warm/Dry; No Rash; Tattoos/Piercings (MULTIPLE TATTOOS) Focused Exam Sepsis Stage: Ruled Out Reason for ruling out sepsis: DOES NOT MEET CRITERIA Possible Source: Pulmonary Lactate Level 05/08/23 21:44: Lactic Acid Level 1.65 05/08/23 22:25: Lactic Acid Level 1.21 Time of Focused Exam: 23:50 Respiratory: No Accessory Muscle Use, No Respiratory Distress, Other (UPPER AIRWAY NOISE) Cardiovascular: Regular Rate, Rhythm, No Murmur Capillary Refill: Less Than 3 Seconds Skin: normal color, warm/dry Lactic Acid Level Laboratory Tests Test 05/08/23 21:44 05/08/23 22:25 Lactic Acid Level 1.65 MMOL/L (0.50-2.00) 1.21 MMOL/L (0.50-2.00) Within 3hrs of presentation: Admin fluids, Admin ABX, Blood cultures prior to ABX's, Focus exam, Lactate level Procedures/Interventions Suture Size: 4-0 Progress/Results/Core Measures Suspected Sepsis SIRS Temperature: Pulse: 96 Respiratory Rate: 18 Laboratory Tests 05/08/23 21:44: White Blood Count 10.0 Blood Pressure 129 /75 Mean: 93 05/08/23 21:44: Lactic Acid Level 1.65 05/08/23 22:25: Lactic Acid Level 1.21 Laboratory Tests 05/08/23 21:44: Creatinine 1.06, INR Comment 0.9, Platelet Count 361, Total Bilirubin 0.2 Results/Orders Lab Results Laboratory Tests Test 05/08/23 21:44 05/08/23 21:56 05/08/23 22:00 05/08/23 22:25 Range/Units White Blood Count 10.0 4.3-11.0 10^3/uL Red Blood Count 4.79 3.80-5.11 10^6/uL Hemoglobin 14.6 11.5-16.0 g/dL Hematocrit 44 35-52 % Mean Corpuscular Volume 91 80-99 fL Mean Corpuscular Hemoglobin 31 25-34 pg Mean Corpuscular Hemoglobin Concent 34 32-36 g/dL Red Cell Distribution Width 12.2 10.0-14.5 % Platelet Count 361 130-400 10^3/uL Mean Platelet Volume 10.1 9.0-12.2 fL Immature Granulocyte % (Auto) 0 % Neutrophils (%) (Auto) 71 42-75 % Lymphocytes (%) (Auto) 16 12-44 % Monocytes (%) (Auto) 10 0-12 % Eosinophils (%) (Auto) 2 0-10 % Basophils (%) (Auto) 1 0-10 % Neutrophils # (Auto) 7.1 1.8-7.8 10^3/uL Lymphocytes # (Auto) 1.6 1.0-4.0 10^3/uL Monocytes # (Auto) 1.0 0.0-1.0 10^3/uL Eosinophils # (Auto) 0.2 0.0-0.3 10^3/uL Basophils # (Auto) 0.1 0.0-0.1 10^3/uL Immature Granulocyte # (Auto) 0.0 0.0-0.1 10^3/uL Erythrocyte Sedimentation Rate 27 0-30 MM/HR Prothrombin Time 12.7 12.2-14.7 SEC INR Comment 0.9 0.8-1.4 Activated Partial Thromboplast Time 31 24-35 SEC Sodium Level 140 135-145 MMOL/L Potassium Level 4.3 3.6-5.0 MMOL/L Chloride Level 103 98-107 MMOL/L Carbon Dioxide Level 25 21-32 MMOL/L Anion Gap 12 5-14 MMOL/L Blood Urea Nitrogen 14 7-18 MG/DL Creatinine 1.06 0.60-1.30 MG/DL Estimat Glomerular Filtration Rate 59 BUN/Creatinine Ratio 13 Glucose Level 104 70-105 MG/DL Lactic Acid Level 1.65 1.21 0.50-2.00 MMOL/L Calcium Level 9.0 8.5-10.1 MG/DL Corrected Calcium 8.8 8.5-10.1 MG/DL Magnesium Level 2.1 1.6-2.4 MG/DL Total Bilirubin 0.2 0.1-1.0 MG/DL Aspartate Amino Transf (AST/SGOT) 22 5-34 U/L Alanine Aminotransferase (ALT/SGPT) 19 0-55 U/L Alkaline Phosphatase 96 40-136 U/L Ammonia 45 H 11-32 UMOL/L Total Creatine Kinase 44 29-168 U/L Creatine Kinase MB 0.6 <6.6 NG/ML Myoglobin 47.1 10.0-92.0 NG/ML Troponin I < 0.028 <0.028 NG/ML C-Reactive Protein High Sensitivity 0.97 H 0.00-0.50 MG/DL B-Type Natriuretic Peptide 10.8 <100.0 PG/ML Total Protein 7.7 6.4-8.2 GM/DL Albumin 4.2 3.2-4.5 GM/DL Lipase 38 8-78 U/L Free Thyroxine 0.95 0.70-1.48 NG/DL TSH [place] Testing 0.02 L 0.35-4.94 UIU/ML Acetaminophen Level < 10 L 10-30 UG/ML Serum Alcohol < 10 <10 MG/DL Influenza Type A (RT-PCR) Not Detected Not Detecte Influenza Type B (RT-PCR) Not Detected Not Detecte SARS-CoV-2 RNA (RT-PCR) Not Detected Not Detecte Glucometer 110 70-110 MG/DL Urine Color YELLOW Urine Clarity CLEAR Urine pH 6.5 5-9 Urine Specific [place] 1.025 H 1.016-1.022 Urine Protein NEGATIVE NEGATIVE Urine Glucose (UA) NEGATIVE NEGATIVE Urine Ketones NEGATIVE NEGATIVE Urine Nitrite NEGATIVE NEGATIVE Urine Bilirubin NEGATIVE NEGATIVE Urine Urobilinogen 1.0 < = 1.0 MG/DL Urine Leukocyte Esterase NEGATIVE NEGATIVE Urine RBC (Auto) NEGATIVE NEGATIVE Urine RBC NONE /HPF Urine WBC RARE /HPF Urine Crystals PRESENT H /LPF Urine Calcium Oxalate Crystals RARE H /LPF Urine Bacteria TRACE /HPF Urine Casts NONE /LPF Urine Mucus SMALL H /LPF Urine Culture Indicated NO Urine Opiates Screen NEGATIVE NEGATIVE Urine Oxycodone Screen NEGATIVE NEGATIVE Urine Methadone Screen NEGATIVE NEGATIVE Urine Propoxyphene Screen NEGATIVE NEGATIVE Urine Barbiturates Screen NEGATIVE NEGATIVE Ur Tricyclic Antidepressants Screen POSITIVE H NEGATIVE Urine Phencyclidine Screen NEGATIVE NEGATIVE Urine Amphetamines Screen NEGATIVE NEGATIVE Urine Methamphetamines Screen NEGATIVE NEGATIVE Urine Benzodiazepines Screen NEGATIVE NEGATIVE Urine Cocaine Screen NEGATIVE NEGATIVE Urine Cannabinoids Screen POSITIVE H NEGATIVE Test 05/08/23 23:30 Range/Units Blood Gas Puncture Site RIGHT RADIAL Blood Gas Patient Temperature 36.7 Arterial Blood pH 7.31 *L 7.37-7.43 Arterial Blood Partial Pressure CO2 46 H 35-45 MMHG Arterial Blood Partial Pressure O2 133 H 79-93 MMHG Arterial Blood HCO3 23 23-27 MMOL/L Arterial Blood Total CO2 24.0 21.0-31.0 MMOL/L Arterial Blood Oxygen Saturation 99 94-100 % Arterial Blood Base Excess -2.8 L -2.5-2.5 MMOL/L [place] Test YES-POS Blood Gas Ventilator Setting NO Blood Gas Inspired Oxygen 15 Micro Results Microbiology 05/08/23 Gram Stain, Resulted Pending 05/08/23 Sputum Culture - Preliminary, Resulted Culture In Progress 05/08/23 Blood Culture - Preliminary, Resulted No growth 05/08/23 Blood Culture - Preliminary, Resulted Gram Positive Cocci in Cluster My Orders Orders - PRACHI MCPHERSON DO Accucheck Stat ONCE (05/08/23 21:07) Ed Iv/Invasive Line Start (05/08/23 21:07) Ekg Tracing (05/08/23 21:07) O2 (05/08/23 21:07) Monitor-Rhythm Ecg Trace Only (05/08/23 21:07) Acetaminophen (05/08/23 21:07) Alcohol (05/08/23 21:07) Ammonia (05/08/23 21:07) Cbc With Automated Diff (05/08/23 21:07) Comprehensive Metabolic Panel (05/08/23 21:07) Creatine Kinase (05/08/23 21:07) Creatine Kinase Mb (05/08/23 21:07) Hs C Reactive Protein (05/08/23 21:07) Drug Screen Stat (Urine) (05/08/23 21:07) Lactic Acid Analyzer (05/08/23 21:07) Lipase (05/08/23 21:07) Magnesium (05/08/23 21:07) Protime With Inr (05/08/23:07) Partial Thromboplastin Time (05/08/23:07) Thyroid Analyzer (05/08/23 21:07) Ua Culture If Indicated (05/08/23:07) Erythrocyte Sedimentation Rate (05/08/23:07) Myoglobin Serum (05/08/23:07) Troponin I John (05/08/23 21:07) Ct Head Wo-R/O Stroke (05/08/23:07) Chest 1 View, Ap/Pa Only (05/08/23:07) Ed Iv/Invasive Line Start (05/08/23:07) Lactated Ringers (Lr 1000 Ml Iv Solution (05/08/23 21:15) Covid 19 Inhouse Test (05/08/23 21:07) Lidocaine 2% (Urojet) (Xylocaine Urojet) (05/08/23 21:15) Influenza A And B By Pcr (05/08/23 21:07) Ondansetron Injection (Zofran Injectio (05/08/23 22:00) Ct Angio Head/Neck (05/08/23 21:57) Methylprednisolone Sod Succ (Solu-Medrol (05/08/23 22:15) Diphenhydramine Injection (Benadryl Inje (05/08/23 22:15) Bnp John (05/08/23 22:04) Cefepime Injection (Maxipime Injection) (05/08/23 22:15) Blood Culture (05/08/23 22:12) Lactic Acid Analyzer (05/08/23 22:12) Free T4 (Free Thyroxine) (05/08/23 21:44) Iohexol Injection (Omnipaque 350 Mg/Ml 1 (05/08/23:15) Received Contrast (Hold Metformin- Contr (05/08/23 23:15) Sodium Chloride Flush (Catheter Flush Sy (05/08/23 23:15) Ns (Ivpb) (Sodium Chloride 0.9% Ivpb Bag (05/08/23 23:15) Sputum Culture (05/08/23 23:06) Hypertonic Saline 3% Neb (Rt-Hypertonic (05/08/23 23:15) Albuterol/Ipra Inhalation Soln (Duoneb I (05/08/23 23:15) Straight Cath For Spec.-Adult (05/08/23 23:17) Arterial Blood Gas (05/08/23 23:33) Arterial Blood Draw - Obtain (05/08/23 ) Aspirin Chewable Tablet (Baby Aspirin Ch (05/09/23 00:15) Clopidogrel Tablet (Plavix Tablet) (05/09/23 00:15) Vital Signs/I&O 05/08/23 05/08/23 05/08/23 05/08/23 21:04 21:10 23:13 23:28 Temp 36.7 Pulse 96 Resp 18 B/P (MAP) 129/75 (93) Pulse Ox 94 93 O2 Delivery Room Air Room Air Trach Collar Trach Collar O2 Flow Rate 10.00 12.00 FiO2 35 100 05/09/23 00:00 Intake Total 1050 ml Balance 1050 ml Capillary Refill : Less Than 3 Seconds Blood Pressure Mean: 93 Point of Care Testing Finger Stick Blood Glucose: 118 Blood Glucose Action Taken: DR MCPHERSON NOTIFIED Progress Note : Progress Note ON REVIEWING HER ALLERGY LIST WITH S.O., HE STATES THAT IV CONTRAST, JUST CAUSES NAUSEA, AN NO RASH OR ITCHING OR SWELLING ANYWHERE, AND THAT SHE HAS HAD IV CONTRAST MANY TIMES AND THEY JUST HAVE TO GIVE HER NAUSEA MEDICATION BEFORE SHE GETS IV DYE. HE REPORTS THAT SHE HAS SAME REACTION WITH ASPIRIN. STROKE PROTOCOL INITIATED NIH IS 0, WITH THE EXCEPTION OF NOT BEING ABLE TO ASSESS FOR VOCALIZATION ADDITIONAL LABS FOR SEPSIS ORDERED AFTER REVIEWING CXR SHOWING BIBASILAR INFILTRATES. VITALS ON ARRIVAL: TEMP 36.7 = 98.0, HR 96, RR 18, BP 129/75, O2 SAT 94-98% ON ROOM AIR. LABS INCLUDING CBC, CMP, TROPONIN, BNP, THYROID STUDIES,COAGULATION STUDIES, UA, BLOOD CULTURES, LACTIC ACID, COVID/FLU, ETOH, UDS ORDERED, WELL CT HEAD, CXR, EKG PERTINENT LABS: CBC NORMAL, WITH WBC 10.0 CMP NORMAL LACTIC ACID NORMAL TROPONIN NEGATIVE BNP NORMAL TSH 0.02 CRP 0.97 UA CLEAR UDS + FOR THC AND TRICYCLICS ETOH NEGATIVE COVID AND FLU NEGATIVE ABG'S PH 7.31, PCO2 46, PO2 133, O2 SAT 99% ON MASK AT 15 L ON ARRIVAL. RT SUCTIONED PT AND GAVE NEB TREATMENT, AND O2 SATS UPPER 90'S ON ROOM AIR FOR REMAINDER OF ER STAY STILL WITH SOME UPPER AIRWAY NOISE, BUT IMPROVED OVERALL, AND NO WHEEZING OR DYSPNEA EKG UNREMARKABLE CXR WITH BIBASILAR INFILTRATES--ANTIBIOTICS GIVEN, IN ADDITION TO SOLU-MEDROL SHE WAS ALSO GIVEN ZOFRAN AND BENADRYL IN ADDITION TO THE SOLU-MEDROL, PRIOR TO BEING GIVEN IV CONTRAST PT HAD NO ADVERSE REACTIONS TO THE IV CONTRAST CT HEAD AND CT ANGIOGRAM OF HEAD AND NECK ARE ABNORMAL WITH SIGNIFICANT ASVD/CAROTID DISEASE, BUT NO INDICATION FOR EMERGENT INTERVENTION, AND NO INDICATION FOR THROMBOLYTICS. ASPIRIN AND PLAVIX GIVEN PER STROKE NEUROLOGIST RECOMMENDATIONS NO DETERIORATION IN PT'S CONDITION DURING ER STAY. PT HAD NO COMPLAINTS FOR REMAINDER OF ER STAY VITALS STABLE S.O. STATES SHE IS COMPLETELY BACK TO NORMAL NOW. DISCUSSED TEST RESULTS, NEED FOR ADMIT, AND PT IS AGREEABLE TO PLAN DISCUSSED CODE STATUS, AND PT WISHES TO BE A FULL CODE AT THIS TIME. REVIEWED PRIOR RECORDS, INCLUDING ER VISITS, ADMITS/H&P'S/CONSULTS/DISCHARGE SUMMARIES, TESTS/PROCEDURES. COMPLEX MANAGEMENT DUE TO MULTIPLE ISSUES AND CO-MORBIDITIES. COMMUNICATION IS DIFFICULT DUE TO PT BEING NON-VERBAL WITH TRACHEOSTOMY. ECG Initial ECG Impression Date: May 08, 2023 Initial ECG Impression Time: 22:18 Initial ECG Rate: 83 Initial ECG Rhythm: Normal Sinus Initial ECG Intervals DE 161 QRS 80 QT/QTC 359/399 Initial ECG Comparisson: Unchanged Comment INTERPRETED BY ME Diagnostic Imaging Comments CXR--PER RADIOLOGIST REPORT Heart is normal in size. Mediastinal silhouette is unremarkable. There is central vascular congestion with some mild bibasilar infiltrate. There is no pneumothorax or pleural fluid. Impression: Central vascular congestion with some mild bibasilar infiltrate. No pneumothorax or pleural fluid. CT HEAD--PER RADIOLOGIST VIA PHONE AT 2150 AND DICTATED REPORT: There were no extra-axial fluid collections. There is no acute intracranial hemorrhage. No mass effect or midline shift. The ventricles are normal in size and position. There appears to be hyperdensity in the territory of the left distal anterior cerebral artery as well as in the left middle cerebral artery at the sylvian fissure. These findings raise the possibility of intraluminal thrombi. Calvarial windows are unremarkable. IMPRESSION: No acute hemorrhage or mass effect. There are possible hyperdense vessel signs in the left distal anterior cerebral artery and left middle cerebral artery at the sylvian fissure, which raises possibility of intraluminal thrombi. Recommend correlation with CTA. CT ANGIOGRAM HEAD/NECK--PER [facility] RADIOLOGIST VIA PHONE AT [id number] AND VIA FAX AT [phone] -NO ACUTE FINDINGS IN THE ARTERIES OF THE HEAD/BRAIN -RIGHT INTERNAL CAROTID ARTERY WITH MILD CALCIFIED PLAQUE IN DISTAL RIGHT INTERNAL CAROTID ARTERY WITH LESS THAN 20% STENOSIS -LEFT INTERNAL CAROTID ARTERY IS OCCLUDED AT IT'S ORIGIN WITH DISTAL RECONSTITUTION IN THE CAVERNOUS ICA. -RIGHT VERTEBRAL ARTERY OCCLUDED PROXIMALLY WITH SMALL AMOUNT OF DISTAL RECONSTITUTION -MODERATE CALCIFIED PLAQUE IN RIGHT MID COMMON CAROTID ARTERY CAUSING 50% STENOSIS, THERE IS A 3 MM PLAQUE ULCERATION -30% STENOSIS OF LEFT COMMON CAROTID ARTERY -20 % OCCLUSION OF PROXIMAL RIGHT INTERNAL CAROTID ARTERY. Reviewed: Reviewed by Me, Discussed w/Radiologist Departure Communication (Admissions) 2344--CALLED [facility]. PT'S IMAGES WERE CLOUDED TO [facility]. SPOKE WITH STROKE NEUROLOGIST, DR. BAILEY. SHE AGREES THAT PT IS NOT THROMBOLYTIC CANDIDATE SHE IS NEUROLOGICALLY INTACT, AND AT NORMAL BASELINE. THERE IS NO INDICATION FOR EMERGENT INTERVENTION OF CAROTID OCCLUSIONS AT THIS TIME, BUT MAY NEED TO BE DONE AT SOMETIME IN THE FUTURE. SHE RECOMMENDS ADMIT HERE AND OBTAIN MRI OF BRAIN, START PT ON ASPIRIN AND PLAVIX. PT WILL NEED TO FOLLOW UP WITH VASCULAR SURGEON OUTPATIENT. 0001--SPOKE WITH DR. HERNANDEZ, HOSPITALIST FOR [facility]. ACCEPTS PT FOR ADMIT Impression Primary Impression: TIA VS CVA Additional Impressions: Carotid artery disease BIBASILAR INFILTRATES/ATELECTASIS LARYNGEAL CANCER--S/P LARYNGECTOMY ACTIVE SMOKER Marijuana smoker CAD (coronary artery disease) HYPOXIA WITH RESPIRATORY ACIDOSIS POSSIBLE UNDERLYING COPD Disposition: ADMITTED INPATIENT Condition: Improved Admissions Decision to Admit Reason: Admit from ER (General) Decision to Admit/Date: May 09, 2023 Time/Decision to Admit Time: 00:01 Departure-Patient Inst. Referrals: MARIMAR JONES MD (PCP/Family) Primary Care Physician PRACHI MCPHERSON DO May 08, 2023 22:02
[2023-05-08 22:08] LABS: BASOPHILS # (AUTO) 0.1 10^3/uL (0.0-0.1); BASOPHILS % (AUTO) 1 % (0-10); EOSINOPHILS # (AUTO) 0.2 10^3/uL (0.0-0.3); EOSINOPHILS % (AUTO) 2 % (0-10); HEMATOCRIT 44 % (35-52); HEMOGLOBIN 14.6 g/dL (11.5-16.0); LYMPHOCYTES # (AUTO) 1.6 10^3/uL (1.0-4.0); LYMPHOCYTES % (AUTO) 16 % (12-44); MEAN CORPUSCULAR HEMOGLOBIN 31 pg (25-34); MEAN CORPUSCULAR HGB CONC 34 g/dL (32-36); MEAN CORPUSCULAR VOLUME 91 fL (80-99); MEAN PLATELET VOLUME 10.1 fL (9.0-12.2); MONOCYTES % (AUTO) 10 % (0-12); NEUTROPHILS # (AUTO) 7.1 10^3/uL (1.8-7.8); NEUTROPHILS % (AUTO) 71 % (42-75); PLATELET COUNT 361 10^3/uL (130-400)
[2023-05-08 22:09] LABS: BILIRUBIN,URINE NEGATIVE (NEGATIVE); CLARITY,URINE CLEAR; COLOR,URINE YELLOW; GLUCOSE, URINE (UA) NEGATIVE (NEGATIVE); KETONES,URINE NEGATIVE (NEGATIVE); LEUKOCYTE ESTERASE ,URINE NEGATIVE (NEGATIVE); NITRITE,URINE NEGATIVE (NEGATIVE); PH,URINE 6.5 (5-9); PROTEIN,URINE NEGATIVE (NEGATIVE)
[2023-05-08 22:13] LABS: CHLORIDE 103 MMOL/L (98-107)
[2023-05-08 22:14] LABS: ALBUMIN 4.2 GM/DL (3.2-4.5); POTASSIUM 4.3 MMOL/L (3.6-5.0); SODIUM 140 MMOL/L (135-145)
[2023-05-08] MEDS ORDERED: methylPREDNISolone 125 MG (Solu-MEDROL) VIAL IVP ONE (22:15)
[2023-05-08] MEDS ORDERED: diphenhydrAMINE 50 MG/ML INJ (BENADRYL) IVP ONE (22:15)
[2023-05-08] MEDS ORDERED: CEFEPIME INJECTION 1,000 MG in NS (IVPB) 50 ML IV ONE (22:15)
[2023-05-08 22:17] LABS: AMMONIA 45 UMOL/L (11-32); GLUCOSE 104 MG/DL (70-105); TOTAL PROTEIN 7.7 GM/DL (6.4-8.2)
[2023-05-08 22:18] LABS: BILIRUBIN,TOTAL 0.2 MG/DL (0.1-1.0); CARBON DIOXIDE 25 MMOL/L (21-32)
[2023-05-08 22:20] LABS: ALKALINE PHOSPHATASE 96 U/L (40-136); CREATININE SERUM 1.06 MG/DL (0.60-1.30); GFR ESTIMATED 59
[2023-05-08 22:21] LABS: BUN/CREATININE RATIO 13
[2023-05-08 22:23] LABS: ALANINE AMINOTRANSFERASE 19 U/L (0-55)
[2023-05-08 22:24] LABS: ACETAMINOPHEN < 10 UG/ML (10-30); MAGNESIUM 2.1 MG/DL (1.6-2.4)
[2023-05-08 22:25] LABS: CREATINE KINASE 44 U/L (29-168); LIPASE 38 U/L (8-78)
[2023-05-08 22:26] LABS: AMPHETAMINE SCREEN, URINE NEGATIVE (NEGATIVE); BARBITURATE SCREEN URINE NEGATIVE (NEGATIVE); BENZODIAZEPINES SCREEN URINE NEGATIVE (NEGATIVE); CANNABINOID SCREEN, URINE POSITIVE (NEGATIVE); COCAINE SCREEN URINE NEGATIVE (NEGATIVE); OPIATE SCREEN URINE NEGATIVE (NEGATIVE); TRICYCLIC ANTIDEPRESSANTS SCRE POSITIVE (NEGATIVE)
[2023-05-08 22:27] LABS: INR 0.9 (0.8-1.4); PROTHROMBIN TIME PATIENT 12.7 SEC (12.2-14.7)
[2023-05-08 22:27] LABS: METHADONE STAT NEGATIVE (NEGATIVE); OXYCODONE STAT NEGATIVE (NEGATIVE); PROPOXYPHENE STAT NEGATIVE (NEGATIVE)
[2023-05-08 22:32] LABS: BACTERIA,URINE TRACE /HPF; CALCIUM OXALATE CRYSTALS,UR RARE /LPF; WBC,URINE RARE /HPF
[2023-05-08 22:33] LABS: CREATINE KINASE MB 0.6 NG/ML (<6.6); ERYTHROCYTE SEDIMENTATION RATE 27 MM/HR (0-30)
[2023-05-08 22:45] LABS: TSH (THYROID ANALYZER) 0.02 UIU/ML (0.35-4.94)
[2023-05-08] MEDS ORDERED: RT-ALBUTEROL/IPRATROPIUM 3 ML (DUONEB) VIAL INH ONE (23:15)
[2023-05-08] MEDS ORDERED: IOHEXOL 350 MG/ML 100 ML (OMNIPAQUE 350) VIAL IV ONE (23:15)
[2023-05-08] MEDS ORDERED: RT-HYPERTONIC SALINE 3% 4 ML NEB INH ONE (23:15)
[2023-05-08] MEDS ORDERED: HOLD METFORMIN - RECEIVED CONTRAST 20 ML VIAL IV SCH (23:15)
[2023-05-08] MEDS ORDERED: NS 100 ML (IVPB) BAG IV ONE (23:15)
[2023-05-08] MEDS ORDERED: CATHETER FLUSH 10 ML SYR IV PRN (23:15)
[2023-05-08 23:18] LABS: FREE T4 (FREE THYROXINE) 0.95 NG/DL (0.70-1.48)
[2023-05-08 23:41] LABS: ABG BASE EXCESS -2.8 MMOL/L (-2.5-2.5); ABG OXYGEN SATURATION 99 % (94-100); ABG PCO2 46 MMHG (35-45); ABG PO2 133 MMHG (79-93)
[2023-05-08 23:43] LABS: ABG PH 7.31 (7.37-7.43); ALLENS TEST YES-POS; INSPIRED O2 15; VENTILATOR NO
[2023-05-08 23:45] LABS: PATIENT TEMP 36.7
[2023-05-09] MEDS ORDERED: CLOPIDOGREL 75 MG (PLAVIX) TABLET PO ONE (00:15)
[2023-05-09] MEDS ORDERED: ASPIRIN 81 MG CHEW (CHILDREN'S ASA) PO ONE (00:15)
[2023-05-09 01:42] VITALS: BP 129/75
[2023-05-09] MEDS ORDERED: ACETAMINOPHEN 500 MG TAB (TYLENOL) PO PRN (01:45)
[2023-05-09] MEDS ORDERED: fentaNYL INJ 100 MCG/2 ML AMP IV PRN (01:45)
[2023-05-09] MEDS ORDERED: ONDANSETRON 4 MG/2 ML (SDV) Z0FRAN IV PRN (01:45)
[2023-05-09] MEDS ORDERED: IBUPROFEN 800 MG (MOTRIN) TAB PO PRN (01:45)
[2023-05-09] MEDS ORDERED: RT-ALBUTEROL SULF 2.5 MG/3 ML PRE-MIX VIAL INH PRN (02:00)
[2023-05-09] MEDS ORDERED: EPINEPHrine 1 MG INJECTION 4 MG in NS (IVPB) 248 ML IV SCH (02:00)
[2023-05-09] MEDS ORDERED: NOREPINEPHRINE 8 MG/250 ML 250 ML IV SCH (02:00)
[2023-05-09] MEDS ORDERED: VASOPRESSIN INJECTION 20 UNIT in NS (IVPB) 100 ML IV SCH (02:00)
[2023-05-09] MEDS: D5 1/2 NS W/KCL 20 MEQ/L 1,000 ML IV SCH ×2 (02:42→09:54)
[2023-05-09] MEDS: RT-ALBUTEROL SULF 2.5 MG/3 ML PRE-MIX VIAL INH SCH ×6 (02:50→22:37)
[2023-05-09 04:27] LABS: BASOPHILS % (AUTO) 0 % (0-10); EOSINOPHILS % (AUTO) 0 % (0-10); HEMATOCRIT 40 % (35-52); HEMOGLOBIN 13.7 g/dL (11.5-16.0); LYMPHOCYTES # (AUTO) 0.6 10^3/uL (1.0-4.0); LYMPHOCYTES % (AUTO) 6 % (12-44); MEAN CORPUSCULAR HEMOGLOBIN 31 pg (25-34); MEAN CORPUSCULAR HGB CONC 34 g/dL (32-36); MEAN CORPUSCULAR VOLUME 90 fL (80-99); MEAN PLATELET VOLUME 9.9 fL (9.0-12.2); MONOCYTES # (AUTO) 0.1 10^3/uL (0.0-1.0); MONOCYTES % (AUTO) 1 % (0-12); NEUTROPHILS # (AUTO) 8.4 10^3/uL (1.8-7.8); NEUTROPHILS % (AUTO) 92 % (42-75); PLATELET COUNT 282 10^3/uL (130-400); WHITE BLOOD COUNT 9.1 10^3/uL (4.3-11.0)
[2023-05-09 04:48] LABS: POTASSIUM 4.8 MMOL/L (3.6-5.0)
[2023-05-09 04:49] LABS: CALCIUM 8.6 MG/DL (8.5-10.1)
[2023-05-09 04:50] LABS: TOTAL PROTEIN 7.2 GM/DL (6.4-8.2)
[2023-05-09 04:52] LABS: BILIRUBIN,TOTAL 0.2 MG/DL (0.1-1.0)
[2023-05-09 04:53] LABS: PHOSPHORUS 2.7 MG/DL (2.3-4.7)
[2023-05-09 04:54] LABS: CREATININE SERUM 0.95 MG/DL (0.60-1.30)
[2023-05-09 04:56] LABS: MAGNESIUM 2.1 MG/DL (1.6-2.4)
[2023-05-09] MEDS: CEFEPIME 1,000 MG/NS 50 ML IVPB IV SCH ×8 (04:59→22:54)
[2023-05-09 05:07] LABS: BAND NEUTROPHILS 1 %; LYMPHOCYTES % (MANUAL) 10 %; NEUTROPHILS % (MANUAL) 89 %; RBC MORPH NORMAL
[2023-05-09] MEDS ORDERED: KCL 20 MEQ TAB (K-DUR) PO SCH (06:00)
[2023-05-09] MEDS ORDERED: POTASSIUM CL 10MEQ/50ML IVPB 50 ML IV SCH (06:00)
[2023-05-09] MEDS ORDERED: MAGNESIUM 1 GM/100 ML IVPB 100 ML IV SCH (06:00)
[2023-05-09] MEDS ORDERED: NS IV 500 ML 500 ML IV PRN (06:00)
--- NOTE | 2023-05-09 08:33 | Diagnostic Imaging Report ---
PROCEDURE: CT angiography of the head and CT angiography of the neck with and without contrast. TECHNIQUE: Contiguous noncontrast images were obtained from the skull base through the vertex. After intravenous contrast administration, helical CT angiography of the neck was performed. Source data was reformatted into 3D MIP projections. Delayed post contrast acquisition was also obtained. Auto Exposure Controls were utilized during the CT exam to meet ALARA standards for radiation dose reduction. INDICATION: Altered mental status and shortness of air. Delayed postcontrast imaging through the brain shows no abnormal enhancing lesion. CT angiographic portion of the exam demonstrates a bovine arch. Great vessel origins are patent. Right common carotid artery does show a probable plaque ulceration approximately 3 mm in size. There are multiple surgical clips at the carotid bifurcations bilaterally. The right internal carotid artery is widely patent. Left common carotid artery show some very mild narrowing in the midportion. The left internal carotid artery is occluded at its origin. There does appear to be reconstitution of the cavernous ICA on the left. Left vertebral artery is widely patent and appears to be dominant. The right vertebral artery is occluded proximally. There is a very small distal right vertebral artery with reconstituted. Basilar artery is patent. There are prominent posterior communicating arteries bilaterally which supply manager transmission. These appear to be widely patent. Right and left anterior cerebral arteries are widely patent. The M1 and M2 segments of the right and left middle cerebral arteries are widely patent. No thromboemboli or large vessel occlusion is identified. IMPRESSION: 1. Occlusion of the left ICA at its origin with reconstitution of the cavernous ICA. 2. Proximal right vertebral artery occlusion with reconstitution distally. 3. No evidence of intracranial thromboemboli or large vessel occlusion. Dictated by: Dictated on workstation # [id number]
[2023-05-09] MEDS: ASPIRIN E.C. 81 MG (ECOTRIN) TAB PO SCH (09:53)
[2023-05-09] MEDS: CLOPIDOGREL 75 MG (PLAVIX) TABLET PO SCH (09:53)
[2023-05-09] MEDS: PANTOPRAZOLE 40 MG (PROTONIX) VIAL IV SCH (09:53)
--- NOTE | 2023-05-09 10:43 | Tele-ICU Consult ---
History of Present Illness History of Present Illness Date Seen by Provider: May 09, 2023 Time Seen by Provider: 10:42 Date of Admission History of Present Illness (Tele-ICU Physician , consultation as per request of PCP Service provided via interactive audio and video telecommunNo Surprises Software E-CARE system to a patient admitted to ICU bed in [facility]. Available chart/ vitals / labs / Images reviewed H&P is from ER notes Patient's information available about PMH, Shx, Fhx allergy reviewed inEMR. ROS as per chart and RN report Now in ICU, hemodynamically stable Video assessment done using teleICU camera, rest of exam as per RN Discussed with RN. Hospital course: 05/08: 62 y/o female with PMHX of laryngeal CA, presented to the ED. Admitted with TIA, bibasilar infiltrates, carotid disease? CT head: possible hyperdense vessel signs in the left distal ant. artery and L MCA, possibility of intraluminal thrombi. A/P TIA, suspected ( confusion ) - CTH - Occlusion of the left ICA at its origin with reconstitution of the cavernous ICA., Proximal right vertebral artery occlusion with reconstitution - w/up in progress - BP within desirable paramethers Hypoxia - on 10 L TC now -chronic tracheostomy - as per report - not on O2 - will try to wean off, suspect VO / infection - cont abx , ftop IVF Suspected LRTI ./ PNA- sputum cx - empiric abx started Lines : , (Central Line Necessity Reviewed) Gonzalez: void OG: Nutrition: Analgesia: Anxiety/ delirium VTE Prophylaxis: scd Stress Ulcer Prophylaxis: ppi Plans in collaboration with bedside consultants and IM MDs. Discussed with RN to reach out if any questions or concerns A total of 20 minutes of critical care time was devoted to this patient today, required to treat and/or prevent further deterioration of critical care condition ( as above ) I am remotely monitoring this patient from another state. I am unable to do the bedside exam, and history/physical and pertinent information is taken from other notes in the computer and bedside staff. . Allergies and Home Medications Allergies Coded Allergies: Iodinated Contrast Media (Verified Adverse Reaction, Severe, Vomiting, 07/18/19) Violent vomiting with oral contrast aspirin (Verified Adverse Reaction, Mild, NAUSEA, 07/18/19) Home Medications Amitriptyline HCl 10 Mg Tablet, 10 MG PO DAILY, (Reported) Calcium Citrate 200 Mg Tablet, 200 MG PO DAILY, (Reported) Cephalexin 500 Mg Capsule, 500 MG PO TID Prescribed by: DARY CHATTERJEE on 10/10/191801 Cephalexin 500 Mg Tablet, 500 MG PO BID Prescribed by: EVERETTE MADRID on 08/26/21 1225 Gabapentin 250 Mg/5 Ml Solution, 250 MG PO TID, (Reported) Hydrocodone Bit/Acetaminophen 1 Tab Tab, 1 EACH PO Q4-6HR PRN for PAIN-MODERATE Prescribed by: DARY CHATTERJEE on 10/10/191801 Hydrocodone Bit/Acetaminophen 1 Tab Tab, 1 TAB PO Q6H Prescribed by: EVERETTE MADRID on 08/26/21 1225 Levothyroxine Sodium 125 Mcg Tablet, 125 MCG PO DAILY, (Reported) Pravastatin Sodium 40 Mg Tablet, 40 MG PO DAILY, (Reported) Pregabalin 25 Mg Capsule, 25 MG PO DAILY, (Reported) Quetiapine Fumarate 200 Mg Tablet, 200 MG PO HS, (Reported) Quetiapine Fumarate 300 Mg Tablet, PO HS, (Reported) Sertraline HCl 50 Mg Tablet, 50 MG PO DAILY, (Reported) Tramadol HCl 50 Mg Tablet, 50-100 MG PO Q4H PRN for PAIN-MILD TO MODERATE, (Reported) Past Medical/Social/Family Hx Patient Social History Tobacco Use?: Yes Tobacco type used: Cigarettes Smoking Status: Former Smoker Use of E-Cig and/or Vaping dev: No Substance use?: Yes Substance type: Marijuana Alcohol Use?: No Alcohol Frequency: Rarely Pt stated abuse/neglect: Unable to obtain Immunizations Up To Date First/Initial COVID19 Vaccinat: APRIL Second COVID19 Vaccination Benigno: APRIL Tetanus Booster (TDap): Unknown Hepatitis A: No Hepatitis B: No TB Skin Test: None Current Status Advance Directives: No Communicates: Verbally Primary Language: Upper Sorbian Preferred Spoken Language: Upper Sorbian Is interpretation needed?: No Sensory deficits: Speech impairment Review of Systems Constitutional: other Focused Exam Possible Source: Other Lactate Level 05/08/23 21:44: Lactic Acid Level 1.65 05/08/23 22:25: Lactic Acid Level 1.21 05/09/23 04:10: Lactic Acid Level 1.62 Height, Weight, BMI Height: 5'7.00" Weight: 168lbs. 0.0oz. 76.790787qy; 29.03 BMI Method:Stated Exam Exam Patient acknowledged, consented, and participated in this virtual visit which was conducted using real time audio/video Vital Signs Date Time Temp Pulse Resp B/P (MAP) Pulse Ox O2 Delivery O2 Flow Rate FiO2 05/09/23 10:00 89 134/92 (111) 100 Trach Collar 10.00 50.00 05/09/23 09:00 87 142/90 (127) 96 Trach Collar 10.00 50.00 05/09/23 08:00 85 163/73 (104) 93 Trach Collar 10.00 50.00 05/09/23 07:56 36.0 05/09/23 07:50 100 Trach Collar 10.00 50 05/09/23 07:00 77 05/09/23 07:00 74 144/84 (115) 97 Trach Collar 10.00 50.00 05/09/23 06:25 Trach Collar 10.00 50.00 05/09/23 06:00 74 140/91 (107) 100 Trach Collar 70.00 05/09/23 05:00 73 130/86 (101) 100 Trach Collar 70.00 05/09/23 04:00 36.8 05/09/23 04:00 93 Trach Collar 50 05/09/23 04:00 80 140/81 (100) 97 Trach Collar 70.00 05/09/23 03:00 79 138/85 (102) 94 Trach Collar 70.00 05/09/23 02:51 93 Trach Collar 12.00 70 05/09/23 02:30 79 139/91 (107) 96 Trach Collar 100.00 05/09/23 02:00 76 113/99 (104) 96 Trach Collar 100.00 05/09/23 01:45 81 121/91 (101) 95 Trach Collar 100.00 05/09/23 01:42 36.7 96 94 100 05/09/23 01:34 Trach Collar 75 05/09/23 01:30 80 129/83 (98) Trach Collar 100.00 05/09/23 01:19 84 05/09/23 01:15 80 129/88 (102) Trach Collar 100.00 05/09/23 00:57 36.7 85 20 120/79 100 Trach Collar 10.00 100.00 05/08/23 23:28 93 Trach Collar 12.00 100 05/08/23 23:13 Trach Collar 10.00 35 05/08/23 21:10 Room Air 05/08/23 21:04 36.7 96 18 129/75 (93) 94 Room Air I & O 05/09/23 06:59 Intake Total 1100 ml Output Total 300 ml Balance 800 ml Height & Weight Height: 5'7.00" Weight: 168lbs. 0.0oz. 76.199392ew; 29.03 BMI Method:Stated General Appearance: Other Capillary Refill: Less Than 3 Seconds Results Lab Laboratory Tests 05/08/23 21:44 05/09/23 04:10 Assessment/Plan Assessment/Plan 1 CHASE PATTERSON MD May 09, 2023 10:43
[2023-05-09 11:10] LABS: CHOLESTEROL 211 MG/DL (< 200); HDL CHOLESTEROL 46 MG/DL (40-60); TRIGLYCERIDES 81 MG/DL (<150); VLDL CHOLESTEROL 16 MG/DL (5-40)
--- NOTE | 2023-05-09 11:12 | Diagnostic Imaging Report ---
PROCEDURE: US carotid duplex, bilateral. TECHNIQUE: Multiple real-time grayscale images were obtained over the carotid arteries in various projections, bilaterally. Additional spectral analysis and color Doppler duplex images were also obtained. INDICATION: Left ICA occlusion. TIA. COMPARISON: CTA head and neck on 05/08/2023. FINDINGS: Right carotid circulation: The right common carotid artery is normal in course and caliber. Intimal thickening and atherosclerotic plaque is seen throughout the right carotid system. No focal stenosis is seen in the right internal carotid artery. No hemodynamically significant stenosis is present. Left carotid circulation: The left common carotid artery is normal in course and caliber. Intimal thickening is seen in the left common carotid artery. There is occlusion of the proximal left internal carotid artery. The right vertebral artery is not identified. The left vertebral artery demonstrates antegrade flow. IMPRESSION: 1. Occluded proximal left internal carotid artery. 2. No hemodynamically significant stenosis is seen in the right carotid system. 3. Nonvisualized right vertebral artery, consistent with a very diminutive appearance on the CTA with occlusion of the origin of the right vertebral artery. The left vertebral artery demonstrates antegrade flow. 4. Moderate atherosclerotic plaque in the bilateral carotid systems. Parameters based on the consensus panel Strickland-Scale and Doppler ultrasound criteria published August 2003, Radiology, Volume 229. DOPPLER (peak systolic velocity M/S Right Left CCA 1.74 .32 ICA Proximal 2.37 .24 ICA Mid 1.84 .40 ICA Distal NOT SEEN NOT SEEN RATIO 1.36 1.27 ECA 2.35 2.86 VERT NOT SEEN .78 Dictated by: Dictated on workstation # [id number]
--- NOTE | 2023-05-09 12:03 | Speech Therapy Progress Note ---
Therapy Progress Note Speech pathology received a consultation for a clinical bedside swallowing evaluation and the medical chart was reviewed. The patient underwent a total laryngectomy approximately three years prior. Due to the surgical procedure, the patient is not at a risk for aspiration with P.O. intake unless a leak is suspected at a previous surgical site. Additionally, the patient "passed" the RN Dysphagia Screening in the emergency department. The patient's fiance, Buddy, was contacted by the clinician for prior level of function. Per Buddy, the patient consumes a regular diet with thin liquids at home, enjoying "Pepsi, hamburger, sausage, all of it!". The patient does wear glasses and Buddy stated he would be providing the glasses when he arrives at the hospital on this date. Buddy stated the patient mostly communicates by mouthing words and writing. 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 At this time, skilled speech pathology does not appear warranted. If concerns arise, please contact speech pathology. NEO CABALLERO May 09, 2023 12:03
--- NOTE | 2023-05-09 12:43 | Physical Therapy Evaluation ---
PT Evaluation-General Medical Diagnosis Admission Date May 09, 2023 at 00:45 Medical Diagnosis: TIA Onset Date: May 09, 2023 Therapy Diagnosis Therapy Diagnosis: debility Height/Weight Height (Feet): 5 Height (Inches): 7.00 Weight (Pounds): 168 Weight (Ounces): 0.0 Precautions Precautions/Isolations: Standard Precautions Referral Physician: Grecia Reason for Referral: Evaluation/Treatment Medical History Pertinent Medical History: MA Additional Medical History throat cancer with trach Current History EMS secondary to AMS and SOA Reviewed History: Yes Social History Current Living Status: Spouse Prior Prior Level of Function SCALE: Activities may be completed with or without assistive devices. 5-Ynvwncsicy-rjbfuay completes the activity by him/herself with no assistance from a helper. 5-Set-up or Clean-up Assistance-helper sets up or cleans up; patient completes activity. [place]amo assists only prior to or following the activity. 4-Supervision or Touching Assistance-helper provides verbal cues and/or touching/steadying and/or contact guard assistance as patient completes activity. Assistance may be provided throughout the activity or intermittently. 3-Partial/Moderate Assistance-helper does LESS THAN HALF the effort. Alamo lifts, holds or supports trunk or limbs, but provides less than half the effort. 2-Substantial/Maximal Assistance-helper does MORE THAN HALF the effort. Alamo lifts or holds trunk or limbs and provides more than half the effort. 3-Ksvdeijdp-opzpyv does ALL the effort. Patient does none of the effort to complete the activity. Or, the assistance of 2 or more helpers is required for the patient to complete the activity. If activity was not attempted, code reason: 7-Patient Refused. 9-Not Applicable-not attempted and the patient did not perform the activity before the current illness, exacerbation or injury. 10-Not Attempted due to Environmental Limitations-(lack of equipment, weather restraints, etc.). 88-Not Attempted due to Medical Conditions or Safety Concerns. Bed Mobility: 6 Transfers (B,C,W/C): 6 Gait: 6 Indoor Mobility (Ambulation): Independent PT Evaluation-Current Objective Attachments: Oxygen, IV ROM/Strength ROM Lower Extremities bilateral LE WFL Strength Lower Extremities 4/5 grossly bilateral LE Integumentary/Posture Bowel Incontinence: No Bladder Incontinence: No Posture WFL Neuromuscular (Tone, Coordination, Reflexes) grossly intact Sensory Vision: Wears Glasses Transfers Lying to Sitting/Side of Bed(Q: 6 Sit to Stand (QC): 6 Chair/Iur-st-Qbleu Xfer(QC): 6 Gait Mode of Locomotion: Walk Anticipated Mode of Locomotion: Walk Walk 10 feet (QC): 4 Distance: 10' Gait Assistive Device: None Balance Sitting Static: Normal Sitting Dynamic: Normal Standing Static: Fair Standing Dynamic: Fair Assessment/Needs Patient will be seen short term by skilled PT to address functional mobility to ensure safe return to home at maximum LOF. Rehab Potential: Fair PT Plugging Machine Operator Goals Senior Care Goals PT Plugging Machine Operator Goals Time Frame: May 17, 2023 Roll Left & Right (QC): 6 Sit to Lying (QC): 6 Lying-Sitting on Side/Bed(QC): 6 Sit to Stand (QC): 6 Chair/Bna-qn-Slsid Xfer(QC): 6 Toilet Transfer (QC): 6 Walk 10 feet (QC): 6 Walk 50ft with 2 Turns (QC): 6 Walk 150 ft (QC): 6 PT Plan Problem List Problem List: Activity Tolerance, Safety Treatment/Plan Treatment Plan: Continue Plan of Care Treatment Plan: Education, Functional Activity Phoebe, Functional Strength, Gait, Safety, Therapeutic Exercise Treatment Duration: May 17, 2023 Frequency: 5 times per week Estimated Hrs Per Day: .25 hour per day Time Time In: 1145 Time Out: 1155 DATE: May 09, 2023 Total Billed Treatment Time: 10 Total Billed Treatment 1 visit EVModC 10 min STEVE GARCIA PT May 09, 2023 12:43
--- NOTE | 2023-05-09 13:00 | History & Physical-Hospitalist ---
TRISTON WILD 05/09/23 1300: History of Present Illness HPI/Chief Complaint Michelle Madsen is a 62yo F with past medical history of laryngeal cancer, OR, hypothyroidism, and HLD who presented to the ED on 05/08. The patient's had called EMS as he did not believe she was acting right. He believed that she was confused and short of breath. In the ED she was found to be altered and weak. Head CT showed some hyperdense changes in the L CELSO and MCA. CTA head and neck showed L ICA stenosis and R vertebral stenosis. She was also found to have bibasilar infiltrates on chest xray. She was admitted for management of her TIA vs stroke and probable pneumonia. It is difficult to collect history from her due to her hx of laryngectomy and trach. I attempt to read her lips as best as I can. Family not present at time of my exam. She reports she has never had a stroke before. Denies being in pain. On rounds with Dr Hernandez, patient's significant other is present and explains she has been somewhat confused and seemingly short of breath for the last 2-3 days. Would like to get her a white board to answer basic questions. Source: patient Exam Limitations: other (chronic trach s/p laryngectomy. Cannot verbalize) Date Seen 05/09/23 Time Seen by a Provider: 12:56 Attending Physician Chris Ohara MD PCP Admitting Physician: Brianna Hernandez DO Attending Physician: Brianna Hernandez DO Referring Physician Date of Admission May 09, 2023 at 00:45 Home Medications & Allergies Home Medications Reviewed patient Home Medication Reconciliation performed by pharmacy medication reconciliations analytical laboratory technician and/or nursing. Patients Allergies have been reviewed. Allergies Allergies Coded Allergies Iodinated Contrast Media (Verified Adverse Reaction, Severe, Vomiting, 07/18/19) Violent vomiting with oral contrast aspirin (Verified Adverse Reaction, Mild, NAUSEA, 07/18/19) Past Onhyxxy-Myzoyq-Fzkyen Hx Patient Social History Marrital Status: (engaged) Tobacco Use?: Yes Tobacco type used: Cigarettes Smoking Status: Former Smoker Use of E-Cig and/or Vaping dev: No Substance use?: Yes Substance type: Marijuana Alcohol Use?: No Alcohol Frequency: Rarely Pt feels they are or have been: Unable to obtain Immunizations Up To Date First/Initial COVID19 Vaccinat: APRIL Second COVID19 Vaccination Benigno: APRIL Tetanus Booster (TDap): Unknown Hepatitis A: No Hepatitis B: No PED Vaccines UTD: Yes Seasonal Allergies Seasonal Allergies: No Current Status Advance Directives: No Communicates: Verbally Primary Language: Icelandic Preferred Spoken Language: Icelandic Is interpretation needed?: No Sensory deficits: Speech impairment Past Medical History Surgeries: Appendectomy, Hysterectomy, Orthopedic, Thyroidectomy Heart Attack 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 History: Hysterectomy Sexually Transmitted Disease: No HIV/AIDS: No Chronic Diarrhea Fibromyalgia Hypothyroidsim Cataract Loss of Vision: Bilateral Uterine Did You Recieve Any Treatments: Yes What Type of Treatment Did You: Surgical Intervention Anxiety, Depression Blood Disorders: No Adverse Reaction/Blood Tranf: No (N/A) Family Medical History Diabetes mellitus 19 FATHER FH: COPD (chronic obstructive pulmonary disease) 19 MOTHER FH: cancer 19 MOTHER Prostate cancer G8 BROTHER Cancer, COPD, Diabetes Review of Systems ROS-Unable to Obtain: difficult to obtain due to her condition s/p laryngeal surgery and trach Constitutional: No chills, No diaphoresis, No fever; weakness EENTM: No hearing loss, No vision loss Respiratory: No cough, No short of breath Cardiovascular: No chest pain Gastrointestinal: No abdominal pain Physical Exam Physical Exam Vital Signs Vital Signs - First Documented 05/08/23 05/08/23 21:04 23:13 Temp 36.7 Pulse 96 Resp 18 B/P (MAP) 129/75 (93) Pulse Ox 94 O2 Delivery Room Air O2 Flow Rate 10.00 FiO2 35 Capillary Refill : Less Than 3 Seconds Height, Weight, BMI Height: 5'7.00" Weight: 168lbs. 0.0oz. 76.185824uq; 29.03 BMI Method:Stated General Appearance: No Apparent Distress, WD/WN, Other (tracheostomy) HEENT: PERRL/EOMI, Moist Mucous Membranes Neck: Supple Respiratory: Chest Non Tender, No Accessory Muscle Use, No Respiratory Distress, Decreased Breath Sounds (bases) Cardiovascular: Regular Rate, Rhythm, Normal Peripheral Pulses Gastrointestinal: Non Tender, Soft Rectal: Deferred Extremity: Non Tender, No Pedal Edema Neurologic/Psychiatric: Alert, Oriented x3, Normal Mood/Affect Skin: Normal Color, Warm/Dry Results Results/Procedures Labs Laboratory Tests 05/08/23 21:44 05/09/23 04:10 Patient resulted labs reviewed. Imaging: Reviewed Imaging Films, Reviewed Imaging Report Assessment/Plan Admission Diagnosis TIA vs stroke rule out pneumonia Admission Status: Inpatient Order (span 2 midnights) Reason for Inpatient Admission: TIA vs stroke rule out pneumonia Assessment and Plan TIA vs stroke confusion Head CT showed hyperdense area in L CELSO and MCA CTA head and neck showed stenosis of L ICA proximally and R vertebral artery MRI brain revealed acute cortical infarct in left frontal lobe in L CELSO territory, other patchy small infarcts also present may represent embolic phenomenon Carotid u/s showing similar findings to CTA, stenosis and L ICA and R vertebral Echo ordered No deficits appreciated on exam speech therapy consulted for swallow evaluation Move to 4th floor PT/OT Respiratory acidosis ABG showed pH of 7.31 with elevated CO2 consistent with respiratory acidosis O2 level high at 133 HCO3 normal continue O2 via trach collar Carotid stenosis evident on imaging as above started on aspirin and plavix Lipitor 80mg daily will need outpatient follow up lipid panel revealed elevated total cholesterol and LDL Community acquired pneumonia TeleICU consulted appreciate recs bibasilar infiltrates present on cxr continue cefepime WBC count normal Lactic acid normal afebrile sputum culture pending DVT ppx- lovenox Code- full Diet- regular BRIANNA HERNANDEZ DO 05/09/23 2301: Past Xbkazwu-Rohado-Bqpzrm Hx Family Medical History Diabetes mellitus 19 FATHER FH: COPD (chronic obstructive pulmonary disease) 19 MOTHER FH: cancer 19 MOTHER Prostate cancer G8 BROTHER Assessment/Plan Admission Diagnosis CVA PNA Trach Non verbal due to laryngectomy Admission Status: Inpatient Order (span 2 midnights) Reason for Inpatient Admission: cva Supervisory-Addendum Brief Verification & Attestation Participated in pt care: history, MDM, physical Personally performed: exam, history, MDM, supervision of care Care discussed with: Medical Student Procedures: n/a Results interpretation: Verified all documentation Verification and Attestation of Medical Student E/M Service A medical student performed and documented this service in my presence. I reviewed and verified all information documented by the medical student and made modifications to such information, when appropriate. I personally performed the physical exam and medical decision making. Brianna Hernandez May 09, 2023,23:00 TRISTON WILD May 09, 2023 13:00 BRIANNA HERNANDEZ DO May 09, 2023 23:01
[2023-05-09] MEDS: ENOXAPARIN 40 MG/0.4 ML (LOVENOX) SYR SC SCH (13:37)
--- NOTE | 2023-05-09 13:39 | Diagnostic Imaging Report ---
PROCEDURE: MR imaging of the brain without contrast. TECHNIQUE: Multiplanar, multisequence MR imaging of the brain was performed without contrast. INDICATION: Altered mental status. Comparison CTA on 05/08/2023. FINDINGS: Acute cortical infarct within the left frontal lobe in the left at CELSO territory and patchy area cortical infarcts within the left insula and left temporal lobe. No acute intracranial hemorrhage. Abnormal flow void within the left ICA compatible with known chronic left ICA occlusion with normal flow along the cavernous segment. Scattered T2/FLAIR hyperintense signal within the periventricular subcortical white matter. Normal appearance of the ventricles and cortical sulci. No marrow replacing processes malignancy. Normal appearance of the visualized cervical spine. Normal sella. No Chiari malformation. IMPRESSION: Acute cortical infarct within the left frontal lobe in the left at CELSO territory compatible with small vessel occlusion. Additional patchy acute cortical infarcts within the left insula and left temporal lobe potentially also likely represent due to small vessel occlusions likely from a proximal embolic phenomenon. No acute intracranial hemorrhage or hydrocephalus. Dictated by: Dictated on workstation # [id number]
[2023-05-09 14:04] VITALS: BP 139/85
[2023-05-09] MEDS ORDERED: MULT-1060 PO (14:18)
[2023-05-09] MEDS ORDERED: GBPN600T PO (14:18)
[2023-05-09] MEDS ORDERED: SERT-414 PO (14:18)
[2023-05-09] MEDS ORDERED: QUET400T54 PO (14:18)
[2023-05-09] MEDS ORDERED: LEVO137T2 PO (14:18)
[2023-05-09] MEDS ORDERED: DICL75TA2 PO (14:18)
[2023-05-09] MEDS ORDERED: MIDO2.5T PO (14:18)
[2023-05-09] MEDS ORDERED: ACET-2267 PO (14:18)
[2023-05-09 15:48] VITALS: BP 153/64
[2023-05-09 20:22] VITALS: BP 125/74
[2023-05-09] MEDS: GABAPENTIN 600 MG (NEURONTIN) TAB PO SCH (22:04)
[2023-05-09] MEDS: QUEtiapine 200 MG (SEROquel) TAB IMMEDIATE RELEASE PO SCH (22:04)
[2023-05-09 23:03] VITALS: BP 101/55
[2023-05-10] MEDS: RT-ALBUTEROL SULF 2.5 MG/3 ML PRE-MIX VIAL INH SCH ×6 (02:25→22:39)
[2023-05-10 03:06] VITALS: BP 103/76
[2023-05-10] MEDS: CEFEPIME 1,000 MG/NS 50 ML IVPB IV SCH ×8 (04:39→22:44)
[2023-05-10] MEDS: LEVOTHYROXINE 25 MCG (LEVOTHROID) TAB PO SCH (05:41)
[2023-05-10] MEDS: LEVOTHYROXINE 112 MCG (LEVOTHROID) TAB PO SCH (05:41)
[2023-05-10 06:02] LABS: BASOPHILS % (AUTO) 1 % (0-10); EOSINOPHILS # (AUTO) 0.1 10^3/uL (0.0-0.3); EOSINOPHILS % (AUTO) 1 % (0-10); HEMATOCRIT 39 % (35-52); LYMPHOCYTES # (AUTO) 1.2 10^3/uL (1.0-4.0); LYMPHOCYTES % (AUTO) 19 % (12-44); MEAN CORPUSCULAR HEMOGLOBIN 30 pg (25-34); MEAN CORPUSCULAR HGB CONC 33 g/dL (32-36); MEAN CORPUSCULAR VOLUME 90 fL (80-99); MEAN PLATELET VOLUME 10.1 fL (9.0-12.2); MONOCYTES # (AUTO) 0.5 10^3/uL (0.0-1.0); MONOCYTES % (AUTO) 8 % (0-12); NEUTROPHILS # (AUTO) 4.3 10^3/uL (1.8-7.8); NEUTROPHILS % (AUTO) 70 % (42-75); PLATELET COUNT 252 10^3/uL (130-400); WHITE BLOOD COUNT 6.1 10^3/uL (4.3-11.0)
[2023-05-10 06:26] LABS: ALBUMIN 3.9 GM/DL (3.2-4.5); BILIRUBIN,TOTAL 0.3 MG/DL (0.1-1.0); CREATININE SERUM 0.88 MG/DL (0.60-1.30); POTASSIUM 3.9 MMOL/L (3.6-5.0); TOTAL PROTEIN 7.1 GM/DL (6.4-8.2)
[2023-05-10 07:38] VITALS: BP 97/63
[2023-05-10] MEDS: CLOPIDOGREL 75 MG (PLAVIX) TABLET PO SCH (08:30)
[2023-05-10] MEDS: MULTIVIT W/MINERALS TAB (THERAGRAN M) PO SCH (08:30)
[2023-05-10] MEDS: ETODOLAC 300 MG (LODINE) CAP PO SCH ×2 (08:30→17:27)
[2023-05-10] MEDS: PANTOPRAZOLE 40 MG (PROTONIX) VIAL IV SCH (08:30)
[2023-05-10] MEDS: ASPIRIN E.C. 81 MG (ECOTRIN) TAB PO SCH (08:30)
[2023-05-10] MEDS: GABAPENTIN 600 MG (NEURONTIN) TAB PO SCH ×2 (08:30→20:12)
[2023-05-10] MEDS: SERTRALINE 100 MG (ZOLOFT) TAB PO SCH (08:31)
[2023-05-10] MEDS: MIDODRINE 10 MG (PROAMATINE) TAB PO SCH (08:31)
[2023-05-10] MEDS ORDERED: AtorvaSTATin TABLET 10 MG TABLET PO SCH (09:00)
[2023-05-10 11:14] VITALS: BP 124/96
--- NOTE | 2023-05-10 11:57 | Progress Note - Hospitalist ---
Subjective HPI/CC On Admission Date Seen by Provider: May 10, 2023 Michelle Madsen is a 62yo F with past medical history of laryngeal cancer, [place], hypothyroidism, and HLD who presented to the ED on 05/08. The patient's had called EMS as he did not believe she was acting right. He believed that she was confused and short of breath. In the ED she was found to be altered and weak. Head CT showed some hyperdense changes in the L CELSO and MCA. CTA head and neck showed L ICA stenosis and R vertebral stenosis. She was also found to have bibasilar infiltrates on chest xray. She was admitted for management of her TIA vs stroke and probable pneumonia. It is difficult to collect history from her due to her hx of laryngectomy and trach. I attempt to read her lips as best as I can. Family not present at time of my exam. She reports she has never had a stroke before. Denies being in pain. On rounds with Dr Paige, patient's significant other is present and explains she has been somewhat confused and seemingly short of breath for the last 2-3 days. Would like to get her a white board to answer basic questions. Subjective/Events-last exam Pt reports doing better today. Family at bedside and reports she's doing the best she has since she's been here. Son,Brett, on phone. Unable to visit as he is in [facility] (does request to be updated through them and of pt will provide) Focused Exam Lactate Level 05/08/23 21:44: Lactic Acid Level 1.65 05/08/23 22:25: Lactic Acid Level 1.21 05/09/23 04:10: Lactic Acid Level 1.62 Time of Focused Exam: 23:50 Objective Exam Vital Signs Vital Signs Date Time Temp Pulse Resp B/P (MAP) Pulse Ox O2 Delivery O2 Flow Rate FiO2 05/11/23 11:33 37.0 79 20 102/62 (75) 95 Trach Collar 9.00 05/11/23 09:57 35 Capillary Refill : Less Than 3 Seconds General Appearance: No Apparent Distress, Chronically ill Neck: Other (trach) Respiratory: No Accessory Muscle Use, Rhonci; No Wheezing Cardiovascular: Regular Rate, Rhythm, No Murmur Gastrointestinal: Normal Bowel Sounds, Soft Neurologic/Psychiatric: Alert, Oriented x3 Results/Procedures Lab Laboratory Tests 05/11/23 05:40 Patient resulted labs reviewed. 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
[2023-05-10] MEDS: ENOXAPARIN 40 MG/0.4 ML (LOVENOX) SYR SC SCH (14:01)
[2023-05-10 16:09] VITALS: BP 96/65
[2023-05-10] MEDS: QUEtiapine 200 MG (SEROquel) TAB IMMEDIATE RELEASE PO SCH (17:27)
[2023-05-10 20:41] VITALS: BP 114/70
[2023-05-11] VITALS (7 sets, daily range): BP systolic 96–130; BP diastolic 53–81
[2023-05-11] MEDS: RT-ALBUTEROL SULF 2.5 MG/3 ML PRE-MIX VIAL INH SCH ×6 (02:25→23:16)
[2023-05-11 05:46] LABS: BASOPHILS # (AUTO) 0.1 10^3/uL (0.0-0.1); BASOPHILS % (AUTO) 1 % (0-10); EOSINOPHILS # (AUTO) 0.2 10^3/uL (0.0-0.3); EOSINOPHILS % (AUTO) 2 % (0-10); HEMATOCRIT 38 % (35-52); HEMOGLOBIN 12.9 g/dL (11.5-16.0); LYMPHOCYTES # (AUTO) 1.3 10^3/uL (1.0-4.0); LYMPHOCYTES % (AUTO) 19 % (12-44); MEAN CORPUSCULAR HEMOGLOBIN 31 pg (25-34); MEAN CORPUSCULAR HGB CONC 34 g/dL (32-36); MEAN CORPUSCULAR VOLUME 90 fL (80-99); MONOCYTES # (AUTO) 0.7 10^3/uL (0.0-1.0); MONOCYTES % (AUTO) 11 % (0-12); NEUTROPHILS # (AUTO) 4.5 10^3/uL (1.8-7.8); NEUTROPHILS % (AUTO) 67 % (42-75); PLATELET COUNT 232 10^3/uL (130-400); WHITE BLOOD COUNT 6.7 10^3/uL (4.3-11.0)
[2023-05-11] MEDS: LEVOTHYROXINE 112 MCG (LEVOTHROID) TAB PO SCH (05:49)
[2023-05-11] MEDS: LEVOTHYROXINE 25 MCG (LEVOTHROID) TAB PO SCH (05:49)
[2023-05-11] MEDS: CEFEPIME 1,000 MG/NS 50 ML IVPB IV SCH ×8 (05:49→23:55)
[2023-05-11 06:00] LABS: ALBUMIN 3.8 GM/DL (3.2-4.5); POTASSIUM 4.1 MMOL/L (3.6-5.0)
[2023-05-11 06:02] LABS: TOTAL PROTEIN 6.8 GM/DL (6.4-8.2)
[2023-05-11 06:04] LABS: BILIRUBIN,TOTAL 0.4 MG/DL (0.1-1.0)
[2023-05-11 06:06] LABS: CREATININE SERUM 0.83 MG/DL (0.60-1.30)
[2023-05-11] MEDS: CLOPIDOGREL 75 MG (PLAVIX) TABLET PO SCH (09:16)
[2023-05-11] MEDS: MULTIVIT W/MINERALS TAB (THERAGRAN M) PO SCH (09:16)
[2023-05-11] MEDS: ETODOLAC 300 MG (LODINE) CAP PO SCH ×2 (09:16→18:18)
[2023-05-11] MEDS: PANTOPRAZOLE 40 MG (PROTONIX) VIAL IV SCH (09:16)
[2023-05-11] MEDS: GABAPENTIN 600 MG (NEURONTIN) TAB PO SCH ×2 (09:16→20:26)
[2023-05-11] MEDS: ASPIRIN E.C. 81 MG (ECOTRIN) TAB PO SCH (09:16)
[2023-05-11] MEDS: MIDODRINE 10 MG (PROAMATINE) TAB PO SCH (09:16)
[2023-05-11] MEDS: SERTRALINE 100 MG (ZOLOFT) TAB PO SCH (09:17)
--- NOTE | 2023-05-11 12:26 | Progress Note - Hospitalist ---
Subjective HPI/CC On Admission Date Seen by Provider: May 11, 2023 Michelle Madsen is a 62yo F with past medical history of laryngeal cancer, [place], hypothyroidism, and HLD who presented to the ED on 05/08. The patient's had called EMS as he did not believe she was acting right. He believed that she was confused and short of breath. In the ED she was found to be altered and weak. Head CT showed some hyperdense changes in the L CELSO and MCA. CTA head and neck showed L ICA stenosis and R vertebral stenosis. She was also found to have bibasilar infiltrates on chest xray. She was admitted for management of her TIA vs stroke and probable pneumonia. It is difficult to collect history from her due to her hx of laryngectomy and trach. I attempt to read her lips as best as I can. Family not present at time of my exam. She reports she has never had a stroke before. Denies being in pain. On rounds with Dr Paige, patient's significant other is present and explains she has been somewhat confused and seemingly short of breath for the last 2-3 days. Would like to get her a white board to answer basic questions. Subjective/Events-last exam Pt reports doing well. Smiling and denying needs. SO at bedside and requests when referral placed for vascular evaluation to go to [facility]. Focused Exam Lactate Level 05/08/23 21:44: Lactic Acid Level 1.65 05/08/23 22:25: Lactic Acid Level 1.21 05/09/23 04:10: Lactic Acid Level 1.62 Time of Focused Exam: 23:50 Objective Exam Vital Signs Vital Signs Date Time Temp Pulse Resp B/P (MAP) Pulse Ox O2 Delivery O2 Flow Rate FiO2 05/11/23 11:33 37.0 79 20 102/62 (75) 95 Trach Collar 9.00 05/11/23 09:57 35 Capillary Refill : Less Than 3 Seconds General Appearance: No Apparent Distress Neck: Other (trach) Respiratory: No Accessory Muscle Use, Decreased Breath Sounds; No Rhonci, No Wheezing Cardiovascular: Regular Rate, Rhythm, No Murmur Gastrointestinal: Normal Bowel Sounds, Soft Neurologic/Psychiatric: Alert, Oriented x3 (answering questions appropriately today) Results/Procedures Lab Laboratory Tests 05/11/23 05:40 Patient resulted labs reviewed. 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
[2023-05-11] MEDS: ENOXAPARIN 40 MG/0.4 ML (LOVENOX) SYR SC SCH (13:07)
[2023-05-11] MEDS: QUEtiapine 200 MG (SEROquel) TAB IMMEDIATE RELEASE PO SCH (18:18)
[2023-05-12] MEDS: RT-ALBUTEROL SULF 2.5 MG/3 ML PRE-MIX VIAL INH SCH ×2 (03:04→07:29)
[2023-05-12 03:15] VITALS: BP 100/59
[2023-05-12 05:18] LABS: BASOPHILS # (AUTO) 0.1 10^3/uL (0.0-0.1); BASOPHILS % (AUTO) 1 % (0-10); EOSINOPHILS # (AUTO) 0.2 10^3/uL (0.0-0.3); EOSINOPHILS % (AUTO) 3 % (0-10); HEMATOCRIT 40 % (35-52); HEMOGLOBIN 13.9 g/dL (11.5-16.0); LYMPHOCYTES # (AUTO) 1.2 10^3/uL (1.0-4.0); LYMPHOCYTES % (AUTO) 18 % (12-44); MEAN CORPUSCULAR HEMOGLOBIN 31 pg (25-34); MEAN CORPUSCULAR HGB CONC 35 g/dL (32-36); MEAN CORPUSCULAR VOLUME 89 fL (80-99); MEAN PLATELET VOLUME 10.3 fL (9.0-12.2); MONOCYTES # (AUTO) 0.8 10^3/uL (0.0-1.0); MONOCYTES % (AUTO) 11 % (0-12); NEUTROPHILS # (AUTO) 4.5 10^3/uL (1.8-7.8); NEUTROPHILS % (AUTO) 66 % (42-75); PLATELET COUNT 248 10^3/uL (130-400); WHITE BLOOD COUNT 6.8 10^3/uL (4.3-11.0)
[2023-05-12] MEDS: LEVOTHYROXINE 112 MCG (LEVOTHROID) TAB PO SCH (05:24)
[2023-05-12] MEDS: CEFEPIME 1,000 MG/NS 50 ML IVPB IV SCH ×4 (05:24→10:52)
[2023-05-12] MEDS: LEVOTHYROXINE 25 MCG (LEVOTHROID) TAB PO SCH (05:24)
[2023-05-12 05:33] LABS: ALBUMIN 3.9 GM/DL (3.2-4.5)
[2023-05-12 05:34] LABS: POTASSIUM 4.7 MMOL/L (3.6-5.0)
[2023-05-12 05:36] LABS: TOTAL PROTEIN 7.4 GM/DL (6.4-8.2)
[2023-05-12 05:38] LABS: BILIRUBIN,TOTAL 0.4 MG/DL (0.1-1.0)
[2023-05-12 05:40] LABS: CREATININE SERUM 1.02 MG/DL (0.60-1.30)
[2023-05-12 08:13] VITALS: BP 108/74
[2023-05-12] MEDS: ASPIRIN E.C. 81 MG (ECOTRIN) TAB PO SCH (08:28)
[2023-05-12] MEDS: PANTOPRAZOLE 40 MG (PROTONIX) VIAL IV SCH (08:28)
[2023-05-12] MEDS: MULTIVIT W/MINERALS TAB (THERAGRAN M) PO SCH (08:28)
[2023-05-12] MEDS: MIDODRINE 10 MG (PROAMATINE) TAB PO SCH (08:28)
[2023-05-12] MEDS: CLOPIDOGREL 75 MG (PLAVIX) TABLET PO SCH (08:28)
[2023-05-12] MEDS: SERTRALINE 100 MG (ZOLOFT) TAB PO SCH (08:28)
[2023-05-12] MEDS: ETODOLAC 300 MG (LODINE) CAP PO SCH (08:28)
[2023-05-12] MEDS: GABAPENTIN 600 MG (NEURONTIN) TAB PO SCH (08:28)
--- NOTE | 2023-05-12 09:22 | Physical Therapy Daily Note ---
PT Daily Note-Current Subjective Patient agrees to therapy. Pain Section J - Health Conditions 1. Rarely or not at all 2. Occasionally 3. Frequently 4. Almost constantly 8. Unable to answer Pain Effect on Sleep: 1 Pain Interference with Therapy: 1 Pain Interference w/Day-to-Day: 1 Mental Status Attachments: Oxygen Transfers SCALE: Activities may be completed with or without assistive devices. 3-Okpmoblllp-qkrpunk completes the activity by him/herself with no assistance from a helper. 5-Set-up or Clean-up Assistance-helper sets up or cleans up; patient completes activity. [place] assists only prior to or following the activity. 4-Supervision or Touching Assistance-helper provides verbal cues and/or touching/steadying and/or contact guard assistance as patient completes activity. Assistance may be provided throughout the activity or intermittently. 3-Partial/Moderate Assistance-helper does LESS THAN HALF the effort. [place] lifts, holds or supports trunk or limbs, but provides less than half the effort. 2-Substantial/Maximal Assistance-helper does MORE THAN HALF the effort. [place] lifts or holds trunk or limbs and provides more than half the effort. 0-Ahztogqnc-zqicxu does ALL the effort. Patient does none of the effort to complete the activity. Or, the assistance of 2 or more helpers is required for the patient to complete the activity. If activity was not attempted, code reason: 7-Patient Refused. 9-Not Applicable-not attempted and the patient did not perform the activity before the current illness, exacerbation or injury. 10-Not Attempted due to Environmental Limitations-(lack of equipment, weather restraints, etc.). 88-Not Attempted due to Medical Conditions or Safety Concerns. Lying to Sitting/Side of Bed(Q: 6 Sit to Stand (QC): 6 Chair/Dgf-mc-Dqwjt Xfer(QC): 6 Gait Training Distance: 10' x 2 Walk 10 feet (QC): 6 Gait Assistive Device: None safe and functional with no deviation Assessment Patient is currently at independent PLOF with all gross motor skills safely and does not require continued skilled PT at this time. PT to dismiss patient from services. PT Detention Goals Detention Goals PT Senior Benefits Specialist Goals Time Frame: May 17, 2023 Roll Left & Right (QC): 6 Sit to Lying (QC): 6 Lying-Sitting on Side/Bed(QC): 6 Sit to Stand (QC): 6 Chair/Cyg-gd-Njaae Xfer(QC): 6 Toilet Transfer (QC): 6 Walk 10 feet (QC): 6 Walk 50ft with 2 Turns (QC): 6 Walk 150 ft (QC): 6 PT Plan Treatment/Plan Treatment Plan: Discontinue PT Treatment Plan: Education, Functional Activity Phoebe, Functional Strength, Gait, Safety, Therapeutic Exercise Treatment Duration: May 17, 2023 Frequency: 5 times per week Estimated Hrs Per Day: .25 hour per day Time Time In: 845 Time Out: 855 DATE: May 12, 2023 Total Billed Treatment Time: 10 Total Billed Treatment 1 visit FA 10 min STEVE GARCIA PT May 12, 2023 09:22
--- NOTE | 2023-05-12 09:54 | Occupational Therapy Eval ---
OT Evaluation-General/PLF Medical Diagnosis Admission Date May 09, 2023 at 00:45 Medical Diagnosis: TIA Onset Date: May 09, 2023 Therapy Diagnosis Therapy Diagnosis: weakness Height/Weight Height (Feet): 5 Height (Inches): 7.00 Weight (Pounds): 168 Weight (Ounces): 0.0 Precautions Precautions/Isolations: Fall Prevention, Standard Precautions Weight Bear Status Weight Bearing Restriction: Full Weight Bearing Referral Physician: Grecia Referral Reason: Self Care, Evaluation/Treatment Medical History Pertinent Medical History: [place] Social History Home: Single Level Current Living Status: Spouse Entry Into Home: Stairs With Railing ADL-Prior Level of Function SCALE: Activities may be completed with or without assistive devices. 7-Jfrnxbzznm-cqtrthm completes the activity by him/herself with no assistance from a helper. 5-Set-up or Clean-up Assistance-helper sets up or cleans up; patient completes activity. [place] assists only prior to or following the activity. 4-Supervision or Touching Assistance-helper provides verbal cues and/or touching/steadying and/or contact guard assistance as patient completes activity. Assistance may be provided throughout the activity or intermittently. 3-Partial/Moderate Assistance-helper does LESS THAN HALF the effort. [place] lifts, holds or supports trunk or limbs, but provides less than half the effort. 2-Substantial/Maximal Assistance-helper does MORE THAN HALF the effort. [place] lifts or holds trunk or limbs and provides more than half the effort. 1-Kjoqkgjmt-zhmdqj does ALL the effort. Patient does none of the effort to complete the activity. Or, the assistance of 2 or more helpers is required for the patient to complete the activity. If activity was not attempted, code reason: 7-Patient Refused. 9-Not Applicable-not attempted and the patient did not perform the activity before the current illness, exacerbation or injury. 10-Not Attempted due to Environmental Limitations-(lack of equipment, weather restraints, etc.). 88-Not Attempted due to Medical Conditions or Safety Concerns. Self Care: Independent Functional Cognition: Independent DME/Equipment Comments uses [employer] board Drive Self: No OT Current Status Subjective Agreeable to OT Pain Numeric Pain Scale: 0-No Pain Mental Status/Objective Patient Orientation: Person, Place, Time, Situation Attachments: Oxygen Current Upper Extremity ROM BUE ROM WFLS Upper Extremity Coordination BUE WFLS Upper Extremity Sensation INTACT Upper Extremity Strength -4/5 grossly self manages 02 and positioning tube over trach ADL-Treatment ADL-Current Completes all ADL with SBA and set up d/t environment Eating (QC): 5 Oral Hygiene (QC): 5 Shower/Bathe Self (QC): 7 Upper Body Dressing (QC): 5 Lower Body Dressing (QC): 5 On/Off Footwear (QC): 5 Toileting Hygiene (QC): 5 Education OT Patient Education: Correct positioning, Modified ADL techniques, Progress toward Goal/Update tx plan, Purpose of tx/functional activities, Reviewed precautions, Rehab process, Safety issues, Transfer techniques Teaching Recipient: Patient Teaching Methods: Demonstration Response to Teaching: Verbalize Understanding, Return Demonstration OT Radio Equipment Installer Goals Radio Equipment Installer Goals 1=Demonstrate adherence to instructed precautions during ADL tasks. 2=Patient will verbalize/demonstrate understanding of assistive devices/modifications for ADL. 3=Patient will improve strength/tolerance for activity to enable patient to perform ADL's. OT Education/Plan Problem List/Assessment Assessment: No Skilled OT Needs ID'd Discharge Recommendations Plan/Recommendations: Discontinue OT Therapy Discharge Recommendati: Home & Family Treatment Plan/Plan of Care Treatment,Training & Education: Yes Patient would benefit from OT for education, treatment and training to promote independence in ADL's, mobility, safety and/or upper extremity function for ADL's. Plan of Care: OTHER (EVAL ONLY) Treatment Duration: May 12, 2023 Frequency: 1 time per week Estimated Hrs Per Day: .25 hour per day Agreement: Yes Rehab Potential: Good Time Start Time: 08:45 Stop Time: 09:00 DATE: May 12, 2023 Total Time Billed (hr/min): 15 Billed Treatment Time EVM 15 min NEELAM BRUNER OT May 12, 2023 09:54
[2023-05-12 10:23] VITALS: BP 108/74
[2023-05-12 11:28] VITALS: BP 97/60
[2023-05-12] MEDS: ENOXAPARIN 40 MG/0.4 ML (LOVENOX) SYR SC SCH (12:25)
[2023-05-12] MEDS ORDERED: CLOP75TA28 PO (15:25)
[2023-05-12] MEDS ORDERED: ATOR80TA76 PO (15:25)
[2023-05-12] MEDS ORDERED: CLIN-144 PO (15:25)
[2023-05-12] MEDS ORDERED: ASPI-1238 PO (15:25)
[2023-05-12 16:49] VITALS: BP 105/72
[2023-05-12 17:46] VITALS: BP 105/72
[2023-05-12] MEDS ORDERED: cefTRIAXone 2,000 MG/NS 50 ML IVPB IV SCH ×2 (18:00)
--- NOTE | 2023-05-12 18:14 | Discharge Summary ---
Discharge Summary Hospital Course Hospital Course Date of Admission: May 09, 2023 at 00:45 Admission Diagnosis : Family Physician/Provider: Chris Ohara MD Date of Discharge: 05/12/23 Discharge Diagnosis: [ ] Hospital Course: [ ] Labs and Pending Lab Test: Laboratory Tests 05/12/23 05:10: White Blood Count 6.8, Red Blood Count 4.54, Hemoglobin 13.9, Hematocrit 40, Mean Corpuscular Volume 89, Mean Corpuscular Hemoglobin 31, Mean Corpuscular Hemoglobin Concent 35, Red Cell Distribution Width 12.0, Platelet Count 248, Mean Platelet Volume 10.3, Immature Granulocyte % (Auto) 1, Neutrophils (%) (Auto) 66, Lymphocytes (%) (Auto) 18, Monocytes (%) (Auto) 11, Eosinophils (%) (Auto) 3, Basophils (%) (Auto) 1, Neutrophils # (Auto) 4.5, Lymphocytes # (Auto) 1.2, Monocytes # (Auto) 0.8, Eosinophils # (Auto) 0.2, Basophils # (Auto) 0.1, Immature Granulocyte # (Auto) 0.1, Sodium Level 136, Potassium Level 4.7, Chloride Level 105, Carbon Dioxide Level 21, Anion Gap 10, Blood Urea Nitrogen 28H, Creatinine 1.02, Estimat Glomerular Filtration Rate 62, BUN/Creatinine Ratio 27, Glucose Level 93, Calcium Level 9.0, Corrected Calcium 9.1, Magnesium Level 2.0, Total Bilirubin 0.4, Aspartate Amino Transf (AST/SGOT) 48H, Alanine Aminotransferase (ALT/SGPT) 29, Alkaline Phosphatase 73, Total Protein 7.4, Albumin 3.9 Microbiology 05/09/23 MRSA Screen - Final, Complete MRSA not isolated 05/08/23 Blood Culture - Preliminary, Resulted No growth Home Meds Active Clindamycin HCl 300 Mg Capsule 300 Mg PO Q6H 5 Days Aspirin EC (Aspirin) 81 Mg Tablet.dr 81 Mg PO DAILY Atorvastatin Calcium 80 Mg Tablet 80 Mg PO HS Clopidogrel (Clopidogrel Bisulfate) 75 Mg Tablet 75 Mg PO DAILY Reported Tylenol Extra Strength (Acetaminophen) 500 Mg Tablet 500-1,000 Mg PO Q8H PRN Centrum Women Tablet (Multivitamin/Iron/Folic Acid) 18 Mg Iron-400 Mcg Tablet 1 Each PO DAILY Diclofenac Sodium 75 Mg Tablet.dr 75 Mg PO BIDPC Quetiapine Fumarate ER (Quetiapine Fumarate) 400 Mg Tab.er.24h 400 Mg PO 1900 Sertraline HCl 100 Mg Tablet 200 Mg PO DAILY TAKES 2 (100MG) TABS Levothyroxine Sodium 137 Mcg Tablet 137 Mcg PO DAILY Midodrine HCl 2.5 Mg Tablet 2.5 Mg PO DAILY Gabapentin 600 Mg Tablet 600 Mg PO BID Discharge Physical Examination Allergies: Coded Allergies: Iodinated Contrast Media (Verified Adverse Reaction, Severe, Vomiting, 07/18/19) Violent vomiting with oral contrast aspirin (Verified Adverse Reaction, Mild, NAUSEA, 07/18/19) SHARON REEVES MD May 12, 2023 18:14
[2023-05-12] MEDS ORDERED: RT-ALBUTEROL SULF 2.5 MG/3 ML PRE-MIX VIAL INH SCH (21:00)
--- NOTE | 2023-05-14 22:00 | D/C HH Face to Face Order ---
D/C Face to Face Orders Instructions for Patient Patient Instructions/FollowUp: Follow up with primary provider within a week. Physician to follow Patient: [facility] Discharge Diet for Home: Regular Diet Patient Data-Allergies,Ht & Wt Patient Allergies: Coded Allergies: Iodinated Contrast Media (Verified Adverse Reaction, Severe, Vomiting, 07/18/19) Violent vomiting with oral contrast aspirin (Verified Adverse Reaction, Mild, NAUSEA, 07/18/19) Height (Feet): 5 Height (Inches): 7.00 Weight (Pounds): 168 Weight (Ounces): 0.0 Home Health Need/Face to Face Date of Face to Face: May 12, 2023 Clinical Findings: Generalized weakness and fatigue I have seen Pt [id number]: Yes Discharged To: Home Diagnosis/Conditions: Stroke Trach dependent s/p laryngectomy for cancer Patient is Homebound due to: Shortness of breath/distress Homebound Status Due to the above stated illness, injury or surgical procedure (medical condition or diagnosis) and associated clinical findings, the patient is homebound because of his/her inability to leave home except with aid of a supportive device and/or person AND leaving the home requires a considerable and taxing effort or is medically contraindicated. Pt req the following assistanc: Aid of another person Home Health Nursing Orders Home Health Services Order: Nursing Services, Physical Therapy-Evaluate & Treat Home Health Infusion Therapy Line Start Date: May 08, 2023 Certify Stmt I certify that this patient is under my care and that I, a nurse practitioner or a physician; a clinical education assistant working with me, had a face to face encounter that - meets the physician face to face encounter requirements with this patient as dated. SHARON REEVES MD May 14, 2023 21:59
== END 2023-05-12 17:05 | disposition home health service (06) | DRG 64 ==
LOC: EDUNIT# 21:03 → ER 21:04 → ICU 05-09 00:45 → 4TH 05-09 14:28
PROVIDERS: ADMIT Internal Medicine; ATTEND Family Medicine
DX: I63.232 Cerebral infarction due to unspecified occlusion or stenosis of left carotid arteries (principal); J18.9 Pneumonia, unspecified organism; E87.29 Other acidosis; R29.714 NIHSS score 14; F17.210 Nicotine dependence, cigarettes, uncomplicated; F12.90 Cannabis use, unspecified, uncomplicated; Z93.0 Tracheostomy status; Z85.21 Personal history of malignant neoplasm of larynx; Z90.02 Acquired absence of larynx; Z20.822 Contact with and (suspected) exposure to COVID-19; I25.10 Atherosclerotic heart disease of native coronary artery without angina pectoris; I25.2 Old myocardial infarction; E78.00 Pure hypercholesterolemia, unspecified; M79.7 Fibromyalgia; E03.9 Hypothyroidism, unspecified; Z85.42 Personal history of malignant neoplasm of other parts of uterus; F41.9 Anxiety disorder, unspecified; F32.A Depression, unspecified; Z92.3 Personal history of irradiation
CPT/HCPCS: 36415; 36600; 51701; 70450; 70496; 70498; 70551; 71045; 80053; 80061; 80306; 80320; 80329; 81000; 82140; 82550; 82553; 82805; 82947; 83605; 83690; 83735; 83874; 83880; 84100; 84439; 84443; 84484; 85007; 85025; 85027; 85610; 85652; 85730; 86141; 87040; 87070; 87077; 87081; 87181; 87184; 87205; 87636; 93005; 93041; 93306; 93880; 94640; 94760; 94761; 94799